=== PATIENT | female | born 1970 | race Caucasian/White ===

== ENCOUNTER 2022-02-02 12:21 | Emergency (ER) | payer BC, SELFPAY ==
--- NOTE | 2022-02-02 12:11 | PC.NURSE ---
urine specimen sent to lab at this time
[2022-02-02 12:21] VITALS: BP 116/65; PULSE 65; RESP 18; TEMP 36.6; O2SAT 98; BMI 42.3
--- NOTE | 2022-02-02 12:25 | CT_ITS ---
FINAL REPORT CLINICAL HISTORY: abdomen pain FINDINGS: CT ABDOMEN & PELVIS W/O CONTRAST Axial CT images of the abdomen and pelvis were obtained without intravenous contrast. Coronal reformatted images were also obtained.This study was performed with techniques to keep radiation doses as low as reasonably achievable (ALARA). Individualized dose reduction techniques using automated exposure control or adjustment of mA and/or kV according to the patient's size were employed. Abdomen: The lung bases are clear. There is no evidence of renal stone or hydronephrosis. The gallbladder is surgically absent. The liver has an irregular contour consistent with cirrhosis. There is splenomegaly with the spleen measuring 14.7 cm in length and consistent with portal hypertension. The pancreas has an unremarkable, unenhanced appearance. No mass or adenopathy is seen. No inflammatory process is identified. There are prominent vessels near the GE junction which are worrisome for varices. Pelvis: The appendix is not visualized. There is no evidence of ureteral dilation or ureteral stone.No mass or abnormal fluid collection is identified. There are multiple anterior abdominal and pelvic subcutaneous nodules of uncertain etiology which could represent injection granulomas/prior injection sites. IMPRESSION: Liver cirrhosis. Splenomegaly. Reviewed, Interpreted and Dictated by Cristian Coleman III, MD Transcribed by Cecelia Fuller Authenticated and [facility]
--- NOTE | 2022-02-02 12:33 | PC.NURSE ---
pt to radiology
[2022-02-02 12:38] LABS: Microscopic, Urine URINE MICROSCOPIC (MICROSCOPIC)
[2022-02-02 12:39] LABS: Appearance,Urine TURBID (Clear); Blood, Urine 3+ (Negative); Color,Urine AMBER (Yellow); Glucose,Urine (UA) Negative (Negative); Ketones,Urine Negative (Negative); Leukocyte Esterase,Urine 3+ (Negative); Nitrate,Urine POSITIVE (Negative); Protein,Urine 2+ (Negative)
--- NOTE | 2022-02-02 12:39 | PC.NURSE ---
pt back from radiology
[2022-02-02 12:41] LABS: Basophils % 0.9 % (0.1-2.0); Eosinophils # 0.2 K/mm3 (0.0-0.4); Eosinophils % 3.7 % (0.1-12.0); Hematocrit 39.4 % (37.0-47.0); Hemoglobin 13.3 g/dL (12.2-16.2); Lymphocytes % 22.8 % (10-50); Mean Corpuscular HGB Conc 33.8 g/dL (31.8-35.4); Mean Corpuscular Hemoglobin 31.9 pg (27.0-31.2); Mean Corpuscular Volume 94.4 fl (81-99); Mean Platelet Volume 7.8 fl (7.4-10.4); Monocytes # 0.4 K/mm3 (0.1-1.0); Monocytes % 9.1 % (1.7-9.3); Neutrophils # 2.7 K/mm3 (1.8-7.8); Neutrophils % 63.5 % (37.0-80.0); Platelet Count 130 K/mm3 (142-424); Red Blood Count 4.17 M/mm3 (4.20-5.40); Red Cell Distribution Width 16.3 % (11.5-17.5); White Blood Count 4.2 K/mm3 (4.8-10.8)
[2022-02-02 12:43] LABS: Chloride 106 mmol/L (98-107); Potassium 4.2 mmoL/L (3.5-5.1); Sodium 140 mmol/L (136-145)
[2022-02-02 12:46] LABS: Alanine Aminotransferase 23 U/L (12-78); Alkaline Phosphatase 81 U/L (38-126); Amylase 74 U/L (30-110); Anion Gap 11.2 mEq/L (5-15); Aspartate Amino Transferase 55 U/L (14-36); Bilirubin,Total 1.5 mg/dl (0.2-1.3); Blood Urea Nitrogen 11 mg/dl (7-17); Calcium 8.5 mg/dl (8.4-10.2); Carbon Dioxide 27 mmol/L (22.0-30.0); Creatinine Clearance Estimated 46 mL/min (50-200); Estimated Glomerular Filt Rate 53 ml/min (>60); GFR (African American) 64 ML/MIN (>60); Glucose 80 mg/dl (74-100); Lipase 116 U/L (23-300)
[2022-02-02 12:47] LABS: Albumin Level 3.5 g/dl (3.5-5.0); Globulin 3.4 g/dL (1.3-3.2); Total Protein,Serum 6.9 g/dl (6.3-8.2)
[2022-02-02 12:49] LABS: Bilirubin,Urine 1+ (Negative); WBC,Urine TNTC #/hpf (0-3)
[2022-02-02 12:50] LABS: Amorphous Sediment,Urine Trace /lpf; Bacteria,Urine 2+ /lpf
[2022-02-02 12:51] LABS: RBC,Urine 20-50 #/hpf (0-3)
--- NOTE | 2022-02-02 12:56 | HMH.EDGENADL ---
Discharge Plan Disposition Patient Disposition: Home, Self-Care Condition: Good Prescriptions Prescriptions: New cefdinir 300 mg capsule 300 mg PO BID 10 Days Qty: 20 0RF Activity Restrictions/Add. Instructions Additional Instructions/Restrictions: Additional instructions for URINARY TRACT INFECTION: Take antibiotic as prescribed. First dose tomorrow. See your physician in 2-3 days for follow up and culture results. Return immediately if you have an uncontrollable fever greater than 102 degrees, severe back or abdominal pain, inability to urinate, or repetitive vomiting. Clinical Impressions Clinical Impression: Pyelonephritis Instructions Patient Instructions: DI for Kidney Infection Discharge ED Provider: Jeffery Arora General Adult HPI General Chief complaint: Abdominal Pain Stated complaint: fever Time Seen by Provider: 02/02/22 12:27 Mode of Arrival: EMS Source of Information: Patient Limitations: No Limitations Description of Symptoms (Recalled from ER Triage Doc. by RN): c/o blood in her urine since yesterday, states her left side/flank area feels like someone is stabbing her and it goes into her lower left abdomen History of Present Illness HPI narrative: Brought in by ambulance from [facility]. Complains of left flank pain/abdominal pain on and off hematuria since yesterday. Denies fever. Denies vomiting. Denies prior history of kidney stones or kidney infections to her knowledge. No constipation or diarrhea. Related Data Previous Rx's Medication Instructions Recorded cefdinir 300 mg capsule 300 mg PO BID 10 days #20 caps 02/02/22 Allergies Allergy/AdvReac Type Severity Reaction Status Date / Time No Known Allergies Allergy Verified 02/02/22 12:25 PFSH PFS Social History Smoking Status: Never smoker ROS Obtained: Yes Systems reviewed as appropriate & no additional complaints except as documented Constitutional Constitutional: Denies fever(s) Cardiovascular Cardiovascular: Denies chest pain Respiratory Respiratory: Denies shortness of breath Gastrointestinal Gastrointestingal: Reports abdominal pain; Denies constipation, diarrhea, nausea or vomiting Genitourinary Female Genitourinary: Reports flank pain and Reports hematuria Physical Exam General General appearance: alert and in no apparent distress ENT ENT exam: Present mucous membranes moist Neck Neck exam: Present normal inspection and trachea midline Chest Chest inspection: Present normal inspection and symmetric chest wall rise Respiratory Respiratory exam: Present normal lung sounds bilaterally; Absent respiratory distress Cardiovascular Cardiovascular exam: Present regular rate, normal rhythm and normal heart sounds Abdominal Exam Abdominal exam: Present soft, tenderness and normal bowel sounds; Absent distention, guarding, rebound or rigidity Abdominal tenderness: Present diffuse and mild Extremities Exam Extremities exam: Present normal inspection Neurological Exam Neurological exam: Present alert Psychiatric Psychiatric exam: Present normal affect and normal mood Skin Skin exam: Present warm and dry Medical Decision Making Darrian Inquiry Pt receiving controlled substance: No Vital Signs: 02/02/22 12:21 Temperature 98 F Temperature Source Oral Pulse Rate [Left Radial] 65 Respiratory Rate 18 Blood Pressure [Right Arm] 116/65 Blood Pressure Mean [Right Arm] 82 Blood Pressure Source [Right Arm] Automatic Cuff Blood Pressure Position [Right Arm] Sitting 02 Sat by Pulse Oximetry 98 Oxygen Delivery Method Room Air Lab Data Lab Results 02/02/22 12:08: Urine Color Lizeth, Urine Appearance Turbid, Urine pH 6.0, Ur Specific [place] 1.020, Urine Protein 2+, Urine Glucose (UA) Negative, Urine Ketones Negative, Urine Blood 3+, Urine Nitrate Positive, Urine Bilirubin 1+ A, Urine Urobilinogen 1.0, Ur Leukocyte Esterase 3+ A, Urine RBC 20-50, Urine WBC Tntc, Ur Squamous Epith Cells 5-10, Pedro
[2022-02-02 13:14] VITALS: BP 111/57; PULSE 66; RESP 18; O2SAT 94
[2022-02-02 13:31] VITALS: BP 124/61; PULSE 70; RESP 17; O2SAT 93
--- NOTE | 2022-02-02 13:31 | PC.NURSE ---
called eduarda calderon to come and pepper picker pt for d/c
[2022-02-02 14:06] VITALS: BP 122/61; PULSE 64; RESP 17; TEMP 36.7; O2SAT 98
== END 2022-02-02 14:08 | disposition home or self-care (01) ==
PROVIDERS: Emergency Provider Emergency Medicine
DX: N12 Tubulo-interstitial nephritis, not specified as acute or chronic (principal); K74.60 Unspecified cirrhosis of liver; D73.2 Chronic congestive splenomegaly
CPT/HCPCS: 74176; 80053; 81001; 82150; 83690; 85025; 87086; 87088; 87186; 96365; 96375; 99284; J0696

== ENCOUNTER 2022-02-05 09:02 | Emergency (ER) | payer BC, SELFPAY ==
[2022-02-05 09:02] VITALS: BP 148/58; PULSE 80; RESP 18; TEMP 36.7; O2SAT 95; BMI 44.4
--- NOTE | 2022-02-05 09:07 | PC.NURSE ---
ED MD AT BEDSIDE FOR EVALUATION
--- NOTE | 2022-02-05 09:14 | HMH.EDSKAF ---
Discharge Plan Disposition Patient Disposition: Home, Self-Care Condition: Good Prescriptions Prescriptions: New hydrocortisone 1 % cream 1 applic topical TID PRN (Reason: rash) 7 Days Qty: 28.35 0RF diphenhydramine HCl [Allergy Relief(diphenhydramin)] 25 mg capsule 50 mg PO Q8H PRN (Reason: itching) 3 Days Qty: 10 0RF No Action cefdinir 300 mg capsule 300 mg PO BID 10 Days Qty: 20 0RF Referrals Follow up/Referrals: Leonardo Ruiz MD [Staff Physician] - See instructions Activity Restrictions/Add. Instructions Additional Instructions/Restrictions: Please follow up with your primary care physician in 2-3 days for further management. Please use the topical benadryl cream provided at discharge. You have also been provided hydrocortisone cream and benadryl tablet scripts to help with itching, please pickling grader at your preferred pharmacy. Please avoid any known allergens and clean all of your clothing and bed spreads. Please continue to monitor symptoms closely and return if worsen or any other concerns. Clinical Impressions Clinical Impression: Dermatitis Instructions Patient Instructions: DI for Skin Abscess Print Language Print Language: Indonesian Discharge ED Provider: Delores Hussein Skin/Abscess/FB HPI General Chief complaint: Skin/Abscess/Foreign Body Stated complaint: rash Time Seen by Provider: 02/05/22 09:15 Mode of Arrival: EMS Limitations: No Limitations Description of Symptoms (Recalled from ER Triage Doc. by RN): PT BROUGHT IN VIA EMS FOR RED RAISED AREAS NOTED TO BILATERAL ARMS AND RIGHT SIDE OF FACE AND JAW, BEGAN ABOUT 2-3 DAYS AGO History of Present Illness HPI narrative: Mrs. Oconnor is a 51-year-old female with no significant past medical history presenting to the emergency department for erythematous raised lesions on the (R) side of face and arms. Symptom onset 2 to 3 days prior. Patient reports large erythematous patches along the right side of her face as well as erythematous patches on her chest bilaterally. Patient reports wounds are pruritic but nonpainful. Wounds are in a non-dermatomal fashion. Patient denies any ocular changes or nasal changes. No fevers, chills or other infectious-like symptoms. Denies any known allergens. No change in diet. Reports no one else that she lives with has similar symptoms. No chest pain dyspnea or other concerns at this time. Denies any known insect bites or bedbugs. complaint: rash Onset (ago): day(s) Tetanus up to date: yes Location: face and RUE Severity: mild Quality: pruritic Consistency: constant Relieving factors: none Exacerbating factors: none Associated symptoms: denies other symptoms Treatments prior to arrival: none Related Data Previous Rx's Medication Instructions Recorded cefdinir 300 mg capsule 300 mg PO BID 10 days #20 caps 02/02/22 diphenhydramine HCl 25 mg capsule 50 mg PO Q8H PRN itching 3 days 02/05/22 (Allergy Relief (diphenhydramine)) #10 caps hydrocortisone 1 % topical cream 1 applic topical TID PRN rash 7 02/05/22 days #28.35 grams Allergies Allergy/AdvReac Type Severity Reaction Status Date / Time No Known Allergies Allergy Verified 02/02/22 12:25 PFSH PFSH Medical History Anxiety Cirrhosis of liver Cognitive impairment Encephalopathy Hypothyroid Murmur, heart Obstructive sleep apnea Surgical History H/O section H/O hernia repair Hx of appendectomy Social History Smoking Status: Former smoker alcohol intake: never current occupational status: disabled Travel in the last 8 weeks: None ROS Obtained: Yes All systems reviewed & no additional complaints except as documented Constitutional Constitutional: Reports system reviewed and no additional complaints, except as documented Eyes Eyes: Reports system reviewed and
[2022-02-05 09:38] VITALS: BP 112/51; PULSE 80; RESP 18; TEMP 36.8; O2SAT 95
== END 2022-02-05 09:40 | disposition home or self-care (01) ==
PROVIDERS: Emergency Provider Student in an Organized Health Care Education/Training Program; PCP Family Medicine
DX: L30.9 Dermatitis, unspecified (principal)
CPT/HCPCS: 99283

== ENCOUNTER 2022-05-02 19:12 | Inpatient (IN) | payer BC, SELFPAY ==
[2022-05-02] VITALS (7 sets, daily range): BP systolic 106–164; BP diastolic 50–88; PULSE 99–111; RESP 20; TEMP 39.4; O2SAT 90–94; BMI 35.2
--- NOTE | 2022-05-02 19:35 | CT_ITS ---
PROCEDURE INFORMATION: Exam: CT Cervical Spine Without Contrast Exam date and time: 05/02/2022 8:01 PM Age: 52 years old Clinical indication: Injury or trauma; Fall TECHNIQUE: Imaging protocol: Computed tomography of the cervical spine without contrast. Radiation optimization: All CT scans at this facility use at least one of these dose optimization techniques: automated exposure control; mA and/or kV adjustment per patient size (includes targeted exams where dose is matched to clinical indication); or iterative reconstruction. COMPARISON: CR XR CHEST PORTABLE 05/02/2022 7:41 PM FINDINGS: Bones/joints: No acute fracture. Normal alignment. There are mild degenerative changes of the atlantoaxial joint. Mild disc bulge and uncovertebral spurring producing at least mild stenosis at the C4-C5 disc level. No other significant degenerative/arthritic changes are seen. Lungs: Lung apices are normal. Soft tissues: Unremarkable. IMPRESSION: Mild degenerative changes of the cervical spine as described. No acute findings.
--- NOTE | 2022-05-02 19:35 | CT_ITS ---
PROCEDURE INFORMATION: Exam: CT Head Without Contrast Exam date and time: 05/02/2022 8:01 PM Age: 52 years old Clinical indication: Injury or trauma; Fall TECHNIQUE: Imaging protocol: Computed tomography of the head without contrast. Radiation optimization: All CT scans at this facility use at least one of these dose optimization techniques: automated exposure control; mA and/or kV adjustment per patient size (includes targeted exams where dose is matched to clinical indication); or iterative reconstruction. COMPARISON: No relevant prior studies available. FINDINGS: Brain: Normal. No hemorrhage. Unremarkable white matter. No mass effect. Incidental physiologic calcification is noted in the basal ganglia. Cerebral ventricles: No ventriculomegaly. Paranasal sinuses: Visualized sinuses are unremarkable. No fluid levels. Mastoid air cells: Visualized mastoid air cells are well aerated. Bones/joints: Unremarkable. No acute fracture. Soft tissues: Unremarkable. IMPRESSION: No acute intracranial abnormality.
--- NOTE | 2022-05-02 19:35 | XR_ITS ---
PROCEDURE INFORMATION: Exam: XR Left Tibia and Fibula Exam date and time: 05/02/2022 7:43 PM Age: 52 years old Clinical indication: Injury or trauma; Fall; Blunt trauma; Lower leg; Left TECHNIQUE: Imaging protocol: Radiologic exam of the Left tibia and fibula. Views: 2 views. COMPARISON: No relevant prior studies available. FINDINGS: Bones/joints: Osseous alignment is normal. No acute fracture. Mild spurring of the calcaneus noted. Soft tissues: Normal. IMPRESSION: No acute findings.
--- NOTE | 2022-05-02 19:35 | XR_ITS ---
PROCEDURE INFORMATION: Exam: XR Chest Exam date and time: 05/02/2022 7:41 PM Age: 52 years old Clinical indication: Cough TECHNIQUE: Imaging protocol: Radiologic exam of the chest. Views: 1 view. COMPARISON: CT ABDOMEN PELVIS WO CON 02/02/2022 12:30 PM FINDINGS: Lungs: Lung volumes are low with crowding of the pulmonary vasculature and mild hypoaeration changes. No woo pulmonary consolidation seen. Pleural spaces: Unremarkable. No pleural effusion. No pneumothorax. Heart/Mediastinum: Unremarkable. No cardiomegaly. Bones/joints: Unremarkable. IMPRESSION: Mild hypoaeration changes
--- NOTE | 2022-05-02 19:35 | XR_ITS ---
PROCEDURE INFORMATION: Exam: XR Pelvis Exam date and time: 05/02/2022 7:42 PM Age: 52 years old Clinical indication: Injury or trauma; Fall; Blunt trauma (contusions or hematomas); Does not apply; Pelvic region TECHNIQUE: Imaging protocol: Radiologic exam of the pelvis. Views: 1 or 2 view. COMPARISON: CT ABDOMEN PELVIS WO CON 02/02/2022 12:30 PM FINDINGS: Bones/joints: Unremarkable. No acute fracture. Soft tissues: Unremarkable. IMPRESSION: No acute findings.
[2022-05-02 19:41] LABS: Coronavirus 19, PCR Not Detected (NotDetected); Influenza A, PCR Not Detected (NotDetected); Influenza B, PCR Not Detected (NotDetected)
[2022-05-02 20:32] LABS: Basophils # 0.1 K/mm3 (0-0.2); Basophils % 1.4 % (0.1-2.0); Eosinophils # 0.1 K/mm3 (0.0-0.4); Eosinophils % 0.8 % (0.1-12.0); Hematocrit 42.1 % (37.0-47.0); Hemoglobin 14.2 g/dL (12.2-16.2); Lymphocytes # 0.5 K/mm3 (0.7-4.5); Lymphocytes % 7.2 % (10-50); Mean Corpuscular HGB Conc 33.6 g/dL (31.8-35.4); Mean Corpuscular Hemoglobin 32.3 pg (27.0-31.2); Mean Corpuscular Volume 96.1 fl (81-99); Mean Platelet Volume 7.9 fl (7.4-10.4); Monocytes # 0.2 K/mm3 (0.1-1.0); Monocytes % 3.5 % (1.7-9.3); Neutrophils # 5.9 K/mm3 (1.8-7.8); Platelet Count 122 K/mm3 (142-424); Red Blood Count 4.38 M/mm3 (4.20-5.40); Red Cell Distribution Width 14.9 % (11.5-17.5); White Blood Count 6.8 K/mm3 (4.8-10.8)
[2022-05-02 20:35] LABS: Alanine Aminotransferase 29 U/L (12-78); Albumin/Globulin Ratio 0.9 (1.1-1.8); Alkaline Phosphatase 87 U/L (38-126); Anion Gap 6.9 mEq/L (5-15); Aspartate Amino Transferase 66 U/L (14-36); Bilirubin,Total 1.9 mg/dl (0.2-1.3); Blood Urea Nitrogen 14 mg/dl (7-17); Calcium 7.8 mg/dl (8.4-10.2); Carbon Dioxide 25 mmol/L (22.0-30.0); Chloride 112 mmol/L (98-107); Creatinine Clearance Estimated 75 mL/min (50-200); Estimated Glomerular Filt Rate 43 ml/min (>60); GFR (African American) 52 ML/MIN (>60); Globulin 3.4 g/dL (1.3-3.2); Glucose 105 mg/dl (74-100); Potassium 3.9 mmoL/L (3.5-5.1); Sodium 140 mmol/L (136-145); Total Protein,Serum 6.4 g/dl (6.3-8.2)
[2022-05-02 20:37] LABS: Alanine Aminotransferase 29 U/L (12-78); Aspartate Amino Transferase 67 U/L (14-36); MANUAL DIFFERENTIAL MANUAL DIFFERENTIAL (MANUAL DIFF)
[2022-05-02 20:38] LABS: Lactic Acid 1.6 mmol/L (0.7-2.1)
[2022-05-02 20:56] LABS: Eosinophils % 1 % (0-3); Lymphocytes % 9 % (10-50); Monocytes % 6 % (2-9); Neutrophils % 84 % (42-76); Platelet Estimate Normal; Tear Drop Cells 1+; Total Cells Counted 100
--- NOTE | 2022-05-02 21:54 | PC.NURSE ---
Report from Duncan Houser indicated that the patient had fallen and was suffering from generalized pain. However, when patient arrived to ER she had a temperature of 102.9 and confusion. uDncan Houser arrived to transport another patient to [facility] they inquired on patient and were concerned about the patients confusion.
[2022-05-02 22:02] LABS: Adenovirus F 40/41, stool Not Detected (NotDetected); Astrovirus Not Detected (NotDetected); Campylobacter Not Detected (NotDetected); Clostridium Difficile A/B, PCR Not Detected (NotDetected); Cryptosporidium Not Detected (NotDetected); Cyclospora Cayetanesis Not Detected (NotDetected); Entamoeba histolytica Not Detected (NotDetected); Enteroaggregative E coli Not Detected (NotDetected); Enteropathogenic E coli Not Detected (NotDetected); Enterotoxigenic E coli Not Detected (NotDetected); Giardia lamblia Not Detected (NotDetected); Plesimonas Shigalloides, PCR Not Detected (NotDetected); Rotavirus A Not Detected (NotDetected); Salmonella, PCR Not Detected (NotDetected); Sapovirus Not Detected (NotDetected); Shiga-like toxin E coli Not Detected (NotDetected); Shigella Enterovasive E coli Not Detected (NotDetected); Vibrio Cholerae Not Detected (NotDetected); Vibrio, PCR Not Detected (NotDetected); Yersinia Entercolitica, PCR Not Detected (NotDetected)
--- NOTE | 2022-05-02 22:07 | HMH.EDFALL ---
Discharge Plan Disposition Patient Disposition: Admitted As Inpatient Chief Complaint: Fall Prescriptions Prescriptions: No Action amitriptyline 50 mg Tablet 50 mg PO HS carvedilol 3.125 mg Tablet 3.125 mg PO BID Rx Instructions: must administer with a meal/food levothyroxine 100 mcg Tablet 100 mcg PO DAILY pantoprazole 40 mg Tablet,Delayed Release (Dr/Ec) 40 mg PO DAILY lisinopril 10 mg Tablet 10 mg PO DAILY duloxetine 30 mg Capsule,Delayed Release(Dr/Ec) 30 mg PO DAILY ferrous sulfate 324 mg (65 mg iron) Tablet,Delayed Release (Dr/Ec) 324 mg PO DAILY Rx Instructions: every other day rifaximin 550 mg Tablet 550 mg PO BID Discharge ED Provider: Leonardo Ruiz Fall HPI General Chief Complaint: Fall Stated Complaint: pain from fall out of bed Time Seen by Provider: 05/02/22 22:07 Mode of Arrival: EMS Source of Information: EMS Limitations: No Limitations Description of Symptoms (Recalled from ER Triage Doc. by RN): Per EMS, patient fell out of bed roughly 30 minutes ago. When ems arrived patient was laying on her stomach. Patient is c/o left knee pain, left hip pain and generalized pain. Patient does have an abrasion noted on her left knee. Of note, upon arrival to ED, patient has a cough and fever of 102.9 orally. Patient states she has been sick for 2 or 3 days. Patient is confused upon arrival to ER. History of Present Illness HPI Narrative: [facility] - no sig prodromal sx - pt with cough and fever here- has hx of liver disease MD complaint: fall Onset (ago): hour(s) Fall from: out of bed Fall witnessed: no Place fall occurred: other ([facility] ) Loss of consciousness: none Prolonged down time: no Symptoms prior to fall: none Location of injury: head Location of injury - extremities: Left: thigh and lower leg Severity: moderate Associated symptoms (after fall): denies Related Data Home Medications Medication Instructions Recorded Confirmed amitriptyline 50 mg tablet 50 mg PO HS antidepressant 05/02/22 05/02/22 carvedilol 3.125 mg tablet 3.125 mg PO BID htn 05/02/22 05/02/22 duloxetine 30 mg capsule,delayed 30 mg PO DAILY antidepressant 05/02/22 05/02/22 release ferrous sulfate 324 mg (65 mg 324 mg PO DAILY Supplement 05/02/22 05/02/22 iron) tablet,delayed release levothyroxine 100 mcg tablet 100 mcg PO DAILY hypothyroidism 05/02/22 05/02/22 lisinopril 10 mg tablet 10 mg PO DAILY htn 05/02/22 05/02/22 pantoprazole 40 mg tablet,delayed 40 mg PO DAILY GERD 05/02/22 05/02/22 release rifaximin 550 mg tablet 550 mg PO BID diarrhea 05/02/22 05/02/22 Allergies Allergy/AdvReac Type Severity Reaction Status Date / Time No Known Allergies Allergy Verified 02/02/22 12:25 [facility] Disclaimer: The information contained in this section may have been updated after the patient was seen, as this information can be updated by other users. Medical History Anxiety Cirrhosis of liver Cognitive impairment Encephalopathy Hypothyroid Murmur, heart Obstructive sleep apnea Surgical History H/O section H/O hernia repair Hx of appendectomy Social History Smoking Status: Former smoker alcohol intake: never current occupational status: disabled Travel in the last 8 weeks: None ROS Obtained: Yes unobtainable due to mental status Physical Exam General General appearance: lethargic and obese Head Head exam: normocephalic Eye Eye exam: Present PERRL and EOMI; Absent scleral icterus ENT ENT exam: Present mucous membranes dry Neck Neck exam: Present trachea midline; Absent meningismus Respiratory Respiratory exam: Present other (dec bs bilat ); Absent respiratory distress Cardiovascular Cardiovascular exam: Present regular rate Abdominal Exam Abdomin
[2022-05-02 22:11] LABS: INR 1.18 (0.9-1.1); Prothrombin Time 12.6 seconds (10.1-12.5)
[2022-05-02 22:11] LABS: Ammonia 125 umol/L (9-30)
[2022-05-02 23:02] LABS: Microscopic, Urine URINE MICROSCOPIC (MICROSCOPIC)
[2022-05-02 23:05] LABS: Appearance,Urine CLOUDY (Clear); Blood, Urine 3+ (Negative); Color,Urine BROWN (Yellow); Glucose,Urine (UA) TRACE (Negative); Ketones,Urine TRACE (Negative); Leukocyte Esterase,Urine TRACE (Negative); Nitrate,Urine POSITIVE (Negative); PH,Urine 6.5 (5.0-8.5); Protein,Urine 3+ (Negative)
[2022-05-02 23:22] LABS: Bacteria,Urine 4+ /lpf; Bilirubin,Urine Negative (Negative); RBC,Urine TNTC #/hpf (0-3)
[2022-05-02 23:27] LABS: T4 (Thyroxine) 8.1 ug/dl (5.53-11.0)
[2022-05-02 23:41] LABS: Thyroid Stimulating Hormone 1.05 uIU/mL (0.465-4.68)
[2022-05-03] VITALS (8 sets, daily range): BP systolic 108–170; BP diastolic 53–79; PULSE 75–98; RESP 16–24; TEMP 36.6–36.9; O2SAT 89–98; BMI 38.9; BMI 39.4
--- NOTE | 2022-05-03 00:13 | CT_ITS ---
PROCEDURE INFORMATION: Exam: CT Abdomen And Pelvis With Contrast Exam date and time: 05/03/2022 12:52 AM Age: 52 years old Clinical indication: Condition or disease and abnormal findings; Abnormal lab test; Other: Ammonia +; Liver condition; Cirrhosis; Additional info: HX cirrhosis, AMS, ammonia + TECHNIQUE: Imaging protocol: Computed tomography of the abdomen and pelvis with contrast. Radiation optimization: All CT scans at this facility use at least one of these dose optimization techniques: automated exposure control; mA and/or kV adjustment per patient size (includes targeted exams where dose is matched to clinical indication); or iterative reconstruction. Contrast material: ISOVUE; Contrast volume: 75 ml; Contrast route: IV; COMPARISON: CT ABDOMEN PELVIS WO CON 02/02/2022 12:30 PM FINDINGS: Lungs: There is moderate consolidative atelectasis in the left lung base. Heart: The heart appears mildly enlarged. Liver: Liver appears nodular in contour suggesting cirrhosis. Gallbladder and bile ducts: Gallbladder is surgically absent. Pancreas: Normal. No ductal dilation. Spleen: The spleen is enlarged measuring 15.5 cm in length. Adrenal glands: Normal. No mass. Kidneys and ureters: Normal. No hydronephrosis. Stomach and bowel: There is diffuse wall thickening of the hepatic flexure of the colon with surrounding fatty stranding, concerning for focal colitis. No evidence of bowel obstruction. Appendix: No evidence of appendicitis. Intraperitoneal space: There is minimal perihepatic free fluid. No free air seen. Vasculature: Abdominal aorta is normal in caliber. Multiple esophageal varices noted about the GE junction. Lymph nodes: Unremarkable. No enlarged lymph nodes. Urinary bladder: Chao catheter is present in the urinary bladder. Reproductive: Unremarkable as visualized. Bones/joints: Moderate facet arthropathy noted in the lumbar spine. Bones are otherwise unremarkable. Soft tissues: Stable findings in the anterior abdominal wall suggests old ventral hernia repair. IMPRESSION: 1. Interval development of long segment wall thickening involving the hepatic flexure of the colon suggesting active colitis. 2. Moderate consolidative atelectasis in the left lower lobe which may represent bland atelectasis or mild pneumonia 3. Findings of chronic cirrhosis and portal hypertension including splenomegaly and minimal ascites as well as distal esophageal varices
--- NOTE | 2022-05-03 00:20 | PC.NURSE ---
Hospitalist at bedside
[2022-05-03 00:22] LABS: Norovirus Detected (NotDetected)
--- NOTE | 2022-05-03 00:22 | PC.NURSE ---
Dr. Ruiz notified pt is positive for norovirus.
--- NOTE | 2022-05-03 00:36 | PC.NURSE ---
Dr. Ruiz s/w Eduardo Novoa
[2022-05-03 00:45] LABS: Amylase 63 U/L (30-110); Lipase 78 U/L (23-300)
--- NOTE | 2022-05-03 00:46 | EXP.HP ---
History of Present Illness *Admission Date: 05/03/22 *Reason for visit:: Mental Status Change, Falls, Fevers *History of present illness: Ms. Oconnor is a 52-year-old female who is a resident of a local assisted. She has a history of liver cirrhosis and hepatic encephalopathy, she is on Rifaximin, Per staff, she has a guardian and a daughter. She was sent in from the assisted due to falls and mental status changes. In the ER, she had a CT of the head that showed no acute intracranial abnormalities, CT of the spine that showed that the lung apices are normal with some mild degenerative changes, Cxray that showed mild hypoaeration, Pelvis imaging that showed no acute findings and Tib/Fib xrays that were negative for fracture. Covid and Flu testing were negative. Urinalysis showed 4 plus bacteria, trace leukoesterase and was positive for nitrites. Stool studies were positive for noravirus and Ammonia level was elevated at 125. Creatinine was elevated at 1.30. In the ER on exam, she would arouse to painful stimuli, but feel back asleep. She has a temperature of 102.9 at time of exam and oxygen is 90% on room air, HR was documented at 111 on arrival. Her history was obtained from discussion with the ER Physician and review of the patient's chart. The patient will be admitted with initial impression: Sepsis, Encephalopathy, UTI and Noravirus. Cultures were drawn, the patient was given Fluids in the ER. [facility] Disclaimer: The information contained in this section may have been updated after the patient was seen, as this information can be updated by other users. Medical History Anxiety Cirrhosis of liver Cognitive impairment Encephalopathy Hypothyroid Murmur, heart Obstructive sleep apnea Surgical History H/O section H/O hernia repair Hx of appendectomy Social History Smoking Status: Former smoker alcohol intake: never current occupational status: disabled Travel in the last 8 weeks: None Review of Systems Review of Systems Review of systems:: unable to obtain Meds Home Medications and Allergies Home Medications Medication Instructions Recorded Confirmed Type amitriptyline 50 mg tablet 50 mg PO HS antidepressant 05/02/22 05/02/22 History carvedilol 3.125 mg tablet 3.125 mg PO BID htn 05/02/22 05/02/22 History duloxetine 30 mg capsule,delayed 30 mg PO DAILY antidepressant 05/02/22 05/02/22 History release ferrous sulfate 324 mg (65 mg 324 mg PO DAILY Supplement 05/02/22 05/02/22 History iron) tablet,delayed release levothyroxine 100 mcg tablet 100 mcg PO DAILY hypothyroidism 05/02/22 05/02/22 History lisinopril 10 mg tablet 10 mg PO DAILY htn 05/02/22 05/02/22 History pantoprazole 40 mg tablet,delayed 40 mg PO DAILY GERD 05/02/22 05/02/22 History release rifaximin 550 mg tablet 550 mg PO BID diarrhea 05/02/22 05/02/22 History New Prescriptions to Start Prescriptions: Allergies Allergy/AdvReac Type Severity Reaction Status Date / Time No Known Allergies Allergy Verified 02/02/22 12:25 Exam Data for Last 24 hours Vital signs and Labs for Last 24 Hours: Temp Pulse Resp BP Pulse Ox 102.9 F H 101 H 20 128/62 90 L 05/02/22 19:30 05/02/22 23:30 05/02/22 19:30 05/02/22 23:30 05/02/22 23:30 Laboratory Results - last 24 hr 05/02/22 19:25: SARS-CoV-2 (PCR) Not detected, Influenza A Untype (PCR) Not detected, Influenza Type B (PCR) Not detected 05/02/22 20:15: WBC 6.8, RBC 4.38, Hgb 14.2, Hct 42.1, MCV 96.1, MCH 32.3 H, MCHC 33.6, RDW 14.9, Plt Count 122 L, MPV 7.9, Neut % (Auto) 87.0 H, Lymph % (Auto) 7.2 L, [place] % (Auto) 3.5, Eos % (Auto) 0.8, Baso % (Auto) 1.4, Neut # (Auto) 5.9, Lymph # (Auto) 0.5 L, [place] # (Auto) 0.2, Eos # (Auto) 0.1, Baso # (Auto) 0.1, Total Counted 100, Neutrophils % (Manual) 8
[2022-05-03 01:31] LABS: Barbiturates Screen,Urine Negative ng/ml (<200)
[2022-05-03 01:32] LABS: Amphetamine/Metha Screen,Urine Negative ng/ml (<1000); Benzodiazepines Screen,Urine Negative ng/ml (<200)
[2022-05-03 01:33] LABS: Cannabinoid Screen,Urine Negative ng/ml (<50)
[2022-05-03 01:34] LABS: Cocaine Screen,Urine Negative ng/ml (<300); Methadone Screen,Urine Negative ng/ml (<300)
[2022-05-03 01:35] LABS: Opiate Screen,Urine Negative ng/ml (<300); Phencyclidine Screen,Urine Negative ng/ml (<25)
--- NOTE | 2022-05-03 02:32 | PC.NURSE ---
PT ARRIVED TO FLOOR VIA STRETCHER AT THIS TIME
--- NOTE | 2022-05-03 05:29 | PC.NURSE ---
Pt admitted this shift. She is A&O to person and place, responds appropriately to verbal commands, eyes open to voice. She remains on 2L NC and is tolerating well with o2 sats 90%. Wheezez noted. No edema noted. Tachycardic at times. Scratches and bruises noted to LUE. Scrape noted to left knee and dark purple bruising noted to right knee. Slight redness noted under abdominal fold. Chao catheter in place draining margot colored urine. BS active and abdomen soft/non-tender. Pts admission was completed to the best of my ability, Pt did state that she was allergic to Oxycodone and Augmentin.
--- NOTE | 2022-05-03 08:00 | EXP.PHA.CONS ---
Pharmacy Consult Date: 05/03/22 Time: 08:00 Referring provider: DR. BARROSO Reason for Consult:: VANCOMCYIN DOSING Allergies Allergy/AdvReac Type Severity Reaction Status Date / Time amoxicillin [From Augmentin] Allergy Verified 05/03/22 05:48 clavulanic acid Allergy Verified 05/03/22 05:48 [From Augmentin] oxycodone Allergy Verified 05/03/22 05:48 Home Medications Medication Instructions Recorded Confirmed Type amitriptyline 50 mg tablet 50 mg PO HS antidepressant 05/02/22 05/02/22 History carvedilol 3.125 mg tablet 3.125 mg PO BID htn 05/02/22 05/02/22 History duloxetine 30 mg capsule,delayed 30 mg PO DAILY antidepressant 05/02/22 05/02/22 History release ferrous sulfate 324 mg (65 mg 324 mg PO DAILY Supplement 05/02/22 05/02/22 History iron) tablet,delayed release levothyroxine 100 mcg tablet 100 mcg PO DAILY hypothyroidism 05/02/22 05/02/22 History lisinopril 10 mg tablet 10 mg PO DAILY htn 05/02/22 05/02/22 History pantoprazole 40 mg tablet,delayed 40 mg PO DAILY GERD 05/02/22 05/02/22 History release rifaximin 550 mg tablet 550 mg PO BID diarrhea 05/02/22 05/02/22 History New Prescriptions to Start Prescriptions: Height: 1.63 m Weight: 104.808 kg Laboratory Results:: Laboratory Results - last 24 hr 05/02/22 19:25: SARS-CoV-2 (PCR) Not detected, Influenza A Untype (PCR) Not detected, Influenza Type B (PCR) Not detected 05/02/22 20:15: WBC 6.8, RBC 4.38, Hgb 14.2, Hct 42.1, MCV 96.1, MCH 32.3 H, MCHC 33.6, RDW 14.9, Plt Count 122 L, MPV 7.9, Neut % (Auto) 87.0 H, Lymph % (Auto) 7.2 L, [place] % (Auto) 3.5, Eos % (Auto) 0.8, Baso % (Auto) 1.4, Neut # (Auto) 5.9, Lymph # (Auto) 0.5 L, [place] # (Auto) 0.2, Eos # (Auto) 0.1, Baso # (Auto) 0.1, Total Counted 100, Neutrophils % (Manual) 84 H, Lymphocytes % (Manual) 9 L, Monocytes % (Manual) 6, Eosinophils % (Manual) 1, Platelet Estimate Normal, Tear Drop Cells 1+ 05/02/22 20:15: Sodium 140, Potassium 3.9, Chloride 112 H, Carbon Dioxide 25, Anion Gap 6.9, BUN 14, Creatinine 1.30 H, Estimated Creat Clear 75, Estimated GFR 43 L, Est GFR ( Amer) 52 L, Glucose 105 H, Calcium 7.8 L, Total Bilirubin 1.9 H, AST 66 H, ALT 29, Alkaline Phosphatase 87, Total Protein 6.4, Albumin 3.0 L, Globulin 3.4 H, Albumin/Globulin Ratio 0.9 L 05/02/22 20:15: Lactate 1.6 05/02/22 20:15: AST 67 H, ALT 29 05/02/22 20:15: PT 12.6 H, INR 1.18 H 05/02/22 20:52: TSH 1.05, Thyroxine (T4) 8.1 05/02/22 21:00: Amylase 63, Lipase 78 05/02/22 21:46: Urine Color Brown, Urine Appearance Cloudy, Urine pH 6.5, Ur Specific [place] 1.020, Urine Protein 3+, Urine Glucose (UA) Trace, Urine Ketones Trace, Urine Blood 3+, Urine Nitrate Positive, Urine Bilirubin Negative, Urine Urobilinogen 2.0, Ur Leukocyte Esterase Trace, Urine RBC Tntc, Urine WBC 3-5, Urine Bacteria 4+ 05/02/22 21:49: Stl Aeromonas (PCR) Not detected, Stl C. cayetanensis PCR Not detected, Stool Rotavirus (PCR) Not detected, Stl Adenov F 40/41 PCR Not detected, Stool Astrovirus (PCR) Not detected, Stool Campylobacter PCR Not detected, Stl C.difficile Tox PCR Not detected, Stool Cryptosporidium PCR Not detected, Stl E.coli Shiga Tox PCR Not detected, Stool E coli O157 PCR Not detected, Stl Enterotoxigenic E PCR Not detected, Stool EPEC (PCR) Not detected, Stool EAEC (PCR) Not detected, Stl E. histolytica PCR Not detected, Stool Giardia Lamblia PCR Not detected, Stool Salmonella PCR Not detected, Stool Sapovirus (PCR) Not detected, Stl P. shigelloides PCR Not detected, Stl Shigella/EIEC PCR Not detected, St Y.enterocolitica PCR Not detected, Stool Vibrio (PCR) Not detected, Stl Vibrio cholerae PCR Not detected, Stl Norovirus GI/GII PCR Detected A 05/02/22 21:52: Ammonia 125 H 05/03/22 : Urine Opiates Screen Negative, Urine Methadone Screen Negative, Ur Barbituates Screen Negative, Ur Phencyclidine Scrn Negative, Ur Amphetamines Screen Negative, U Benzodiazepines Scrn Negative, Urine Cocaine Screen Negative, U Marijuana (THC) Screen Negative Medic
--- NOTE | 2022-05-03 10:24 | US_ITS ---
PROCEDURE INFORMATION: Exam: US Abdomen Complete Exam date and time: 05/03/2022 11:15 AM Age: 52 years old Clinical indication: Condition or disease; Ascites; Peritoneal effusion TECHNIQUE: Imaging protocol: Real-time ultrasound of the abdomen with image documentation. Complete exam. COMPARISON: CT ABDOMEN PELVIS W CON 05/03/2022 12:52 AM FINDINGS: Liver: Cirrhosis. No focal hepatic lesions. Gallbladder: There has been a cholecystectomy. Biliary ducts: Common bile duct measures 5 mm. Pancreas: Pancreas is unremarkable Right kidney: The right kidney measures 10.9 x 4.9 x 5.6 cm. No sonographically evident nephrolithiasis or hydroureteronephrosis. Left kidney: The left kidney measures 11.2 x 5.5 x 5.1 cm. No sonographically evident nephrolithiasis or hydroureteronephrosis. Spleen: Splenomegaly to 16.8 cm Aorta: Normal. No aneurysm. Inferior vena cava: Normal. Portal venous: Portal vein is patent. Supra hepatic veins are patent IMPRESSION: Cirrhosis and splenomegaly.
[2022-05-03 10:55] LABS: Chloride 113 mmol/L (98-107); Potassium 3.6 mmoL/L (3.5-5.1); Sodium 141 mmol/L (136-145)
[2022-05-03 10:58] LABS: Alanine Aminotransferase 25 U/L (12-78); Albumin Level 2.4 g/dl (3.5-5.0); Albumin/Globulin Ratio 0.8 (1.1-1.8); Alkaline Phosphatase 73 U/L (38-126); Anion Gap 7.6 mEq/L (5-15); Aspartate Amino Transferase 66 U/L (14-36); Bilirubin,Total 1.4 mg/dl (0.2-1.3); Blood Urea Nitrogen 15 mg/dl (7-17); Calcium 7.1 mg/dl (8.4-10.2); Carbon Dioxide 24 mmol/L (22.0-30.0); Creatinine Clearance Estimated 85 mL/min (50-200); Estimated Glomerular Filt Rate 43 ml/min (>60); GFR (African American) 52 ML/MIN (>60); Glucose 79 mg/dl (74-100); Total Protein,Serum 5.4 g/dl (6.3-8.2)
--- NOTE | 2022-05-03 11:04 | PC.NURSE ---
Patient 92% on room air while walking with PT/OT and 92% at rest on room air
--- NOTE | 2022-05-03 11:42 | HMH.OTEV ---
OT Inpatient Evaluation Rehab OT IP Evaluation Start: 05/03/22 10:22 Freq: ONCE Status: Active Protocol: [facility] (Rec: 05/03/22 11:41 [facility] [id number]) Rehab OT IP Assessment Subjective History Pt oriented x 4 on arrival. Pt agreeable to engage in therapy evaluation. Pt was admitted on on 05/03/22 for Sepsis, Encephalopathy, UTI and Noravirus. Prior to being admitted pt lived at [facility] personal halfway. Pt reports she was independent with all ADLs such as dressing , bathing, and feeding. Pt was dependent on staff to complete all IADLs. Pt did not use any type of AE during daily activities. Pt has a past medical history of: Anxiety Cirrhosis of liver Cognitive impairment Encephalopathy Hypothyroid Murmur, heart Obstructive sleep apnea Subjective I have a really bad headache. Objective Patient Orientation Person,Place,Birthday Upper Extremity Gross ROM WFL Bed Mobility bed mobility-scooting,bed mobility - supine/sit,bed mobility - rolling Assist Level Supervision/Stand by Transfer Training Sit/Stand Transfer Assist Level Supervision/Stand by Chair Transfer Ability Supervision/Stand by Lower Body Dressing Ability Standby Assistance Overall Commode/Toilet Transfer Ability Standby Assistance Commode/Toilet Transfer Technique Sit to/from Ambulatory Rehab OT IP prob,goals,plan Problems Date of Evaluation: 05/03/22 Rehab Potential Rehab Potential Innapropriate for Skilled Therapy Discharge Plan OT Discharge Plan Pt appears to be at her baseline with ADL independence and functional transfers at this time. Pt can return back to [facility] once medically stable per physician. Eval Complexity Eval Charge Codes 72980 - Low Complexity
--- NOTE | 2022-05-03 11:50 | HMH.PTEV ---
Physical Therapy Evaluation Rehab PT IP Evaluation Start: 05/03/22 10:22 Freq: ONCE Status: Active Protocol: Document 05/03/22 10:45 IVELISSE (Rec: 05/03/22 11:50 PHOYASHIRA [id number]) Subjective/History History History 52 yowf adm to [facility] with encephalopathy, UTI, Norovirus . She is resident of personal jail and is generally independent with all mobility at baseline. Subjective Subjective She reports c/o headache this am, but otherwise feeling good . Rehab PT IP Eval Objective Appearance Patient Behavior Appropriate Patient Orientation Person,Place,Time Difficulty following instructions none Speech Pattern Clear Ambulation Patient Able to Ambulate Yes Ambulation Observation IP General Gait Pattern Observation No Deviations/Normal Ambulation Distance (feet) 40 Ambulation Assistive Device None Ambulation Ability Independent Balance Ability to Arise Able, uses arms to help Sitting Balance Steady, safe Standing Balance Steady, wide stance Dynamic Sitting Balance Ability Good Dynamic Standing Balance Ability Good Transfers Bed Transfer Ability Independent Chair Transfer Ability Independent Sit to Stand Bed Transfer Ability Independent Sit to Stand Chair Transfer Ability Independent Rehab PT IP prob,goals,plan Problems Date of Evaluation: 05/03/22 Discharge Plan PT Discharge Plan Pt currently appears to be at baseline for all mobility and has no inpatiuent therapy needs at this time. She is appropriate to return to personal jail once medically stable. G -code Required No Eval Complexity Eval Charge Codes 70244 - Moderate Complexity PHYSICIAN CERTIFICATION: I certify the specified therapy services for Trish Oconnor are required, authorized, and reviewed every 30 days.
[2022-05-03 12:22] LABS: Ammonia 88 umol/L (9-30)
--- NOTE | 2022-05-03 13:17 | P.CONPHA_ITS ---
Pharmacy Intervention Comments: [facility] and external fill history. -Analilia Wallis, PharmD Candidate 2022
--- NOTE | 2022-05-03 13:17 | HMH.PHAINT1 ---
Pharmacy Intervention Comments: [facility] and external fill [facility]. -Analilia Wallis, PharmD Candidate 2022
--- NOTE | 2022-05-03 16:37 | PC.NURSE ---
Patient on room air during shift. VS stable, IV antibiotics given. Patient able to tolerate meals, no pain reported. Abdomen tender with palpation.
[2022-05-04] VITALS: BP 132/74; PULSE 77; RESP 16; TEMP 36.6; O2SAT 93
--- NOTE | 2022-05-04 03:37 | PC.NURSE ---
PATIENT HAS NOT C/O H/A ON THIS SHIFT. PLEASANT. COOPERATIVE. SLIGHTLY MENTALLY CHALENGED. CHILD LIKE IN MANY WAYS. CONTACT-ENTERIC PRECAUTIONS FOR NORAVIRUS,
[2022-05-04 04:00] VITALS: BP 139/78; PULSE 75; RESP 16; TEMP 36.9; O2SAT 95; BMI 41.0
[2022-05-04 07:59] VITALS: BP 156/85; PULSE 76; RESP 17; TEMP 36.5; O2SAT 97
--- NOTE | 2022-05-04 08:49 | CA_ITS ---
APPROVED REPORT EXAM: Comprehensive 2D, Doppler, and color-flow Echocardiogram Timber Robber: Kylee Santos RVT Ht: 5 ft 4 in Wt: 240lbs BSA: 2.11 BP: 128/62 mmHg Indications: CARDIOMEGALY,FERNANDEZ,MURMUR,EX SMOKER,HTN,OBESITY 2D Dimensions LVOT 1.96 cm (M/F) 1.5-2.5 LA Volume 30.50 mL LA Volume Index 14.39 mL/m2 (M/F) 16-34 M-Mode Dimensions RVDd 2.33 cm (0.9-2.6) LA Diam 4.12 cm (1.9-4.0) LVDd 4.82 cm (3.5-5.7) Ao Diam 2.89 cm (2.0-3.7) LVDs 2.85 cm (3.5-5.7) IVSd 1.57 cm (0.6-1.1) PWd 0.84 cm (0.6-1.1) EF (Teich) 71.50% FS 40.90% EDV (Teich) 108.60 mL TAPSE 2.98 (<1.7) ESV (Teich) 30.90 mL LV Diastology E Decel Time 283.00 (160-240 msec) E/A Ratio 1.2 MED E' 6.90 (< 7 cm/sec) E'/MED E' Ratio 17.13 (>14) LAT E' 6.50 (<10 cm/sec) E/LAT E' Ratio 18.18 (>14) Aortic Valve LVOT Max 113.00 (70-110 cm/s) LVOT VTI 27.26 cm AoV Peak Slim. 227.00 (50-130 cm/s) AI PHT 1361.00 ms AO Peak GR. 20.50 mmHg AO Mean GR. 10.20 (<5 mmHg) AO VTI 34.32 (18-25 cm) CAROL (VTI) 2.40 (2.5-4.5 cm2) Mitral Valve MV E Max Slim. 118.00 (40-130 cm/s) MV A Velocity 99.00 (40-130 cm/s) E/A Ratio 1.19 MV Decel. Time 283.00 (160-240 ms) MV PHT 83.00 ms Pulmonary Valve PV Peak Velocity 110.00 (50-150 cm/s) Tricuspid Valve TR P. Velocity 252.00 cm/s RAP Estimate 10.00 mmHg RVSP 35.40 mmHg Left Ventricle Left atrium is moderately enlarged, left ventricle is normal size mild concentric left ventricular hypertrophy, estimated ejection fraction 55% with no regional wall motion abnormality, diastolic parameters are inconclusive. Right Ventricle Right atrium and right ventricle are mildly enlarged with normal contractility. Aortic Valve Aortic valve is minimally thickened and fibrosed, there is no aortic stenosis, there is trace aortic insufficiency. Mitral Valve Mitral valve is grossly normal, there is trace mitral regurgitation. Tricuspid Valve Tricuspid grossly normal, there is trace tricuspid regurgitation, tricuspid regurgitation jet velocity is inadequate for calculation of the right ventricular systolic pressure. Pulmonic Valve Pulmonic valve is poorly visualized. Great Vessels Aortic root is normal size. Inferior vena cava is poorly visualized. Pericardium No significant pericardial effusion noted. Conclusion 1. Mild biatrial enlargement, normal left ventricular size, mild concentric left ventricular hypertrophy, estimated ejection fraction 55% with no regional wall motion abnormality, diastolic parameters are inconclusive. 2. Mildly enlarged right ventricle with normal contractility. 3. Trace aortic, mitral and tricuspid regurgitation. 4. No significant pericardial effusion. 5. Inferior vena cava is poorly visualized. Electronically signed by : Carl Plummer MD 05/05/2022 15:37:49
--- NOTE | 2022-05-04 08:53 | XR_ITS ---
FINAL REPORT CLINICAL HISTORY: PNA COMPARISON: 05/02/2022 FINDINGS: A single view of the chest was obtained. The heart is normal in size. The mediastinum is unremarkable. There is improved aeration of the lungs. The lungs are clear. IMPRESSION: No acute cardiopulmonary process. Reviewed, Interpreted and Dictated by Raina Tirado MD Transcribed by Millie Urbina Authenticated and [facility]
[2022-05-04 08:58] LABS: Basophils % 0.6 % (0.1-2.0); Eosinophils # 0.2 K/mm3 (0.0-0.4); Eosinophils % 5.9 % (0.1-12.0); Hematocrit 35.1 % (37.0-47.0); Lymphocytes # 0.8 K/mm3 (0.7-4.5); Lymphocytes % 23.7 % (10-50); Mean Corpuscular HGB Conc 34.2 g/dL (31.8-35.4); Mean Corpuscular Hemoglobin 33.4 pg (27.0-31.2); Mean Corpuscular Volume 97.7 fl (81-99); Mean Platelet Volume 8.3 fl (7.4-10.4); Monocytes # 0.2 K/mm3 (0.1-1.0); Monocytes % 5.5 % (1.7-9.3); Neutrophils # 2.1 K/mm3 (1.8-7.8); Neutrophils % 64.3 % (37.0-80.0); Platelet Count 103 K/mm3 (142-424); Red Blood Count 3.59 M/mm3 (4.20-5.40); White Blood Count 3.2 K/mm3 (4.8-10.8)
[2022-05-04 09:01] LABS: Chloride 112 mmol/L (98-107); Potassium 3.2 mmoL/L (3.5-5.1); Sodium 138 mmol/L (136-145)
[2022-05-04 09:04] LABS: Alanine Aminotransferase 24 U/L (12-78); Albumin Level 2.4 g/dl (3.5-5.0); Albumin/Globulin Ratio 0.8 (1.1-1.8); Alkaline Phosphatase 72 U/L (38-126); Anion Gap 4.2 mEq/L (5-15); Aspartate Amino Transferase 66 U/L (14-36); Bilirubin,Total 1.1 mg/dl (0.2-1.3); Blood Urea Nitrogen 12 mg/dl (7-17); Calcium 7.5 mg/dl (8.4-10.2); Carbon Dioxide 25 mmol/L (22.0-30.0); Creatinine Clearance Estimated 52 mL/min (50-200); Estimated Glomerular Filt Rate 52 ml/min (>60); GFR (African American) 63 ML/MIN (>60); Glucose 101 mg/dl (74-100); Magnesium 1.6 mg/dl (1.6-2.3); Total Protein,Serum 5.4 g/dl (6.3-8.2)
[2022-05-04 15:28] VITALS: BP 156/88; PULSE 67; RESP 18; TEMP 36.4; O2SAT 100
--- NOTE | 2022-05-04 17:16 | EXP.ACUTE.PN ---
Subjective *Date: 05/04/22 *Time: 17:16 Interval history: Overall feeling better, no concerns or complaints at this time. Medical Exam Vital signs and Labs for Last 24 Hours: Vital Signs Temp Pulse Resp BP Pulse Ox 05/04/22 15:28 97.6 F 67 18 156/88 H 100 05/04/22 07:59 97.7 F 76 17 156/85 H 97 05/04/22 04:00 98.4 F 75 16 139/78 95 05/04/22 00:00 97.9 F 77 16 132/74 93 L 05/03/22 20:00 98.4 F 75 16 152/70 H 98 05/03/22 20:00 97 Intake and Output 05/04/22 05/04/22 05/04/22 07:59 15:59 23:59 Intake Total 2026 / 2386 360 / 2386 Output Total 1000 / 1000 0 / 1000 Balance 1026 / 1386 360 / 1386 Intake: Intake, Oral Amount 360 / 720 360 / 720 Intake, Total IV Amount 1666 / 1666 Cefepime HCl 2 gm In 0.9 % 100 / 100 Sodium Chloride 100 ml @ 200 mls/hr IV Q12H NATALIE Rx#:[id number] Ringers Solution,Lactated 1,000 1216 / 1216 ml @ 150 mls/hr IV .[id number] NATALIE Rx#:[id number] Vancomycin/Water For Inj (Peg) 350 / 350 1.75 gm In 350 ml @ 175 mls/hr IV Q24H NATALIE Rx#:[id number] Output: Output, Urine Amount 0 / 0 0 / 0 Output, Urine Amount (Catheter) 1000 / 1000 Chao 1000 / 1000 Other: Number of Unmeasured Voids 0 1 Weight 108.976 kg Patient Weight 05/04/22 23:59 Weight 108.976 kg Laboratory Results - last 24 hr 05/04/22 08:45: Sodium 138, Potassium 3.2 L, Chloride 112 H, Carbon Dioxide 25, Anion Gap 4.2 L, BUN 12, Creatinine 1.10 H, Estimated Creat Clear 52, Estimated GFR 52 L, Est GFR ( Amer) 63 D, Glucose 101 H D, Calcium 7.5 L, Total Bilirubin 1.1, AST 66 H, ALT 24, Alkaline Phosphatase 72, Total Protein 5.4 L, Albumin 2.4 L, Globulin 3.0, Albumin/Globulin Ratio 0.8 L 05/04/22 08:45: WBC 3.2 L D, RBC 3.59 L, Hgb 12.0 L, Hct 35.1 L, MCV 97.7, MCH 33.4 H, MCHC 34.2, RDW 15.0, Plt Count 103 L, MPV 8.3, Neut % (Auto) 64.3, Lymph % (Auto) 23.7, [place] % (Auto) 5.5, Eos % (Auto) 5.9, Baso % (Auto) 0.6, Neut # (Auto) 2.1, Lymph # (Auto) 0.8, [place] # (Auto) 0.2, Eos # (Auto) 0.2, Baso # (Auto) 0.0 05/04/22 08:45: Phosphorus 2.0 L, Magnesium 1.6 I & O for Labs for Last 24 Hours: Intake & Output 05/01/22 05/02/22 05/03/22 05/04/22 23:59 23:59 23:59 23:59 Intake Total 2493 / 2493 2386 / 2386 Output Total 1750 / 1750 1000 / 1000 Balance 743 / 743 1386 / 1386 Weight 92.986 kg 104.808 kg 108.976 kg Microbiology Reports for the Last 24 Hours: Microbiology 05/02/22 21:46 Urine,Catheterized Urine Culture - Preliminary Head: Present atraumatic and normocephalic ENT: Present normal exam Neck: Present normal inspection Respiratory: Present accessory muscle use Cardiac: Present Reg Rate and Rhythm and S1/S2 GI: Present soft and tenderness Rectal (female): Present deferred (female): Present deferred Extremities: Present normal inspection Skin: Present intact and cyanosis Assessment and Plan *Assessment and plan (1) Sepsis: Status: Acute Category: Medical Code(s): A41.9 - Sepsis, unspecified organism (2) Encephalopathy: Status: Acute Category: Medical Code(s): G93.40 - Encephalopathy, unspecified (3) UTI (urinary tract infection): Status: Acute Category: Medical Code(s): N39.0 - Urinary tract infection, site not specified (4) Norovirus: Status: Acute Category: Medical Code(s): A08.11 - Acute gastroenteropathy due to [place] agent (5) KYLIE (acute kidney injury): Status: Acute Category: Medical Code(s): N17.9 - Acute kidney failure, unspecified (6) Hypertension: Status: Acute Category: Medical Code(s): I10 - Essential (primary) hypertension (7) Falls: Status: Acute Category: Medical Code(s): W19.XXXA - Unspecified fall, initial encounter (8) Hypothyroidism: Status: Acute Category: Medical Code(s): E03.9 - Hypothyroidism
--- NOTE | 2022-05-04 18:17 | PC.NURSE ---
Pt alert and oriented but slightly delayed. Chao catheter discontinued with patient up to BR with 1 for voids. Loose stools when voiding. On room air. IV fluids discontinued with patient tolerating oral intake. Ibuprofen, tylenol and flexeril for ARGUETA with patient stating at 1700 med pass that at her home facility they give her tylenol and flexeril together for her ARGUETA's.
[2022-05-04 19:49] VITALS: BP 142/66; PULSE 63; RESP 18; TEMP 36.7; O2SAT 98
[2022-05-04 20:00] VITALS: O2SAT 98
[2022-05-05 04:00] VITALS: BP 149/73; PULSE 61; RESP 20; TEMP 36.4; O2SAT 98; BMI 41.1
--- NOTE | 2022-05-05 04:08 | PC.NURSE ---
PATIENT SLEPT WELL UNTIL 4 AM WHEN SHE RANG OUT AND SAID SHE COULDNT BREATH AND BEGAN TO HAVE A DRY PERSISTANT COUGH. MEDICATED WITH ROBITUSSIN DM AND COUGH ALMOST STOPPED IMMEDIATEY, REMAINS IN CONTACT ISOLATION FOR NORAVIRUS AND MRSA,
[2022-05-05 07:33] LABS: Eosinophils # 0.2 K/mm3 (0.0-0.4); Eosinophils % 6.1 % (0.1-12.0); Hemoglobin 11.5 g/dL (12.2-16.2); Lymphocytes # 0.8 K/mm3 (0.7-4.5); Lymphocytes % 22.1 % (10-50); Mean Corpuscular HGB Conc 33.9 g/dL (31.8-35.4); Mean Corpuscular Hemoglobin 32.8 pg (27.0-31.2); Mean Corpuscular Volume 96.8 fl (81-99); Mean Platelet Volume 7.6 fl (7.4-10.4); Monocytes # 0.3 K/mm3 (0.1-1.0); Monocytes % 7.5 % (1.7-9.3); Neutrophils # 2.3 K/mm3 (1.8-7.8); Neutrophils % 63.3 % (37.0-80.0); Platelet Count 93 K/mm3 (142-424); Red Blood Count 3.52 M/mm3 (4.20-5.40); White Blood Count 3.6 K/mm3 (4.8-10.8)
[2022-05-05 07:41] LABS: Alanine Aminotransferase 20 U/L (12-78); Albumin Level 2.4 g/dl (3.5-5.0); Albumin/Globulin Ratio 0.9 (1.1-1.8); Alkaline Phosphatase 74 U/L (38-126); Anion Gap 6.1 mEq/L (5-15); Aspartate Amino Transferase 58 U/L (14-36); Bilirubin,Total 0.9 mg/dl (0.2-1.3); Blood Urea Nitrogen 14 mg/dl (7-17); Calcium 7.4 mg/dl (8.4-10.2); Carbon Dioxide 25 mmol/L (22.0-30.0); Chloride 111 mmol/L (98-107); Creatinine Clearance Estimated 52 mL/min (50-200); Estimated Glomerular Filt Rate 52 ml/min (>60); GFR (African American) 63 ML/MIN (>60); Globulin 2.8 g/dL (1.3-3.2); Glucose 74 mg/dl (74-100); Potassium 3.1 mmoL/L (3.5-5.1); Sodium 139 mmol/L (136-145); Total Protein,Serum 5.2 g/dl (6.3-8.2)
[2022-05-05 08:00] VITALS: BP 148/73; PULSE 70; RESP 18; TEMP 36.5; O2SAT 97; O2SAT 98
--- NOTE | 2022-05-05 08:42 | XR_ITS ---
FINAL REPORT CLINICAL HISTORY: cough COMPARISON: One day prior FINDINGS: Two views of the chest show lungs to be clear. Pulmonary vascularity is normal. Heart and mediastinum are unremarkable. No pleural effusion is present. IMPRESSION: No active disease. Reviewed, Interpreted and Dictated by Raina Tirado MD Transcribed by Alexus Estrada Authenticated and [facility]
--- NOTE | 2022-05-05 10:43 | SW/DCPLANNER ---
The [facility] for this [facility]. PT evaluated patient and stated that she is safe to return. I have notified Marybel morgan/ [facility] to inform her that patient will return later today pending no setbacks. I will set up [employer] once discharge is completed.
--- NOTE | 2022-05-05 14:13 | EXP.DC.SUM ---
General Admission date:: 05/03/22 HPI HPI HPI: Ms. Oconnor is a 52-year-old female who is a resident of a local correction. She has a history of liver cirrhosis and hepatic encephalopathy, she is on Rifaximin, Per staff, she has a guardian and a daughter. She was sent in from the correction due to falls and mental status changes. In the ER, she had a CT of the head that showed no acute intracranial abnormalities, CT of the spine that showed that the lung apices are normal with some mild degenerative changes, Cxray that showed mild hypoaeration, Pelvis imaging that showed no acute findings and Tib/Fib xrays that were negative for fracture. Covid and Flu testing were negative. Urinalysis showed 4 plus bacteria, trace leukoesterase and was positive for nitrites. Stool studies were positive for noravirus and Ammonia level was elevated at 125. Creatinine was elevated at 1.30. In the ER on exam, she would arouse to painful stimuli, but feel back asleep. She has a temperature of 102.9 at time of exam and oxygen is 90% on room air, HR was documented at 111 on arrival. Her history was obtained from discussion with the ER Physician and review of the patient's chart. The patient will be admitted with initial impression: Sepsis, Encephalopathy, UTI and Noravirus. Cultures were drawn, the patient was given Fluids in the ER. Hospital Course Hospital Course Hospital Course: Patient admitted after a fall at her facility. On admission noted to be febrile and tachycardic, with UTI possibly spontaneous bacterial peritonitis. Patient was started on Rocephin and received 3 days IV antibiotics as well as lactulose for elevated ammonia. Patient a quick clinical improvement. Was discharged on continued lactulose goal of 2-3 bowel movements per day. She was switched to cefdinir for total of 5 days antibiotic Exam Data for Last 24 hours Vital signs and Labs for Last 24 Hours: Temp Pulse Resp BP Pulse Ox 97.7 F 70 18 148/73 H 97 05/05/22 08:00 05/05/22 08:00 05/05/22 08:00 05/05/22 08:00 05/05/22 08:00 Laboratory Results - last 24 hr 05/02/22 21:46: Urine Color Brown, Urine Appearance Cloudy, Urine pH 6.5, Ur Specific [place] 1.020, Urine Protein 3+, Urine Glucose (UA) Trace, Urine Ketones Trace, Urine Blood 3+, Urine Nitrate Positive, Urine Bilirubin Negative, Urine Urobilinogen 2.0, Ur Leukocyte Esterase Trace, Urine RBC Tntc, Urine WBC 3-5, Urine Bacteria 4+ 05/05/22 07:03: Sodium 139, Potassium 3.1 L, Chloride 111 H, Carbon Dioxide 25, Anion Gap 6.1, BUN 14, Creatinine 1.10 H, Estimated Creat Clear 52, Estimated GFR 52 L, Est GFR ( Amer) 63, Glucose 74 D, Calcium 7.4 L, Total Bilirubin 0.9, AST 58 H, ALT 20, Alkaline Phosphatase 74, Total Protein 5.2 L, Albumin 2.4 L, Globulin 2.8, Albumin/Globulin Ratio 0.9 L 05/05/22 07:03: WBC 3.6 L, RBC 3.52 L, Hgb 11.5 L, Hct 34.0 L, MCV 96.8, MCH 32.8 H, MCHC 33.9, RDW 15.0, Plt Count 93 L, MPV 7.6, Neut % (Auto) 63.3, Lymph % (Auto) 22.1, [place] % (Auto) 7.5, Eos % (Auto) 6.1, Baso % (Auto) 1.0, Neut # (Auto) 2.3, Lymph # (Auto) 0.8, [place] # (Auto) 0.3, Eos # (Auto) 0.2, Baso # (Auto) 0.0 05/05/22 07:03: Phosphorus 3.0 D I & O for Last 24 hours: Intake & Output 05/02/22 05/03/22 05/04/22 05/05/22 23:59 23:59 23:59 23:59 Intake Total 2493 / 2493 2626 / 2626 1410 / 1410 Output Total 1750 / 1750 1000 / 1000 0 / 0 Balance 743 / 743 1626 / 1626 1410 / 1410 Weight 92.986 kg 104.808 kg 108.976 kg 109.316 kg Microbiology Reports for the Last 24 Hours: Microbiology 05/02/22 21:46 Urine,Catheterized Urine Culture - Preliminary Gram Negative Rods 05/02/22 20:15 Blood Blood Culture - Preliminary NO GROWTH AFTER 48 HOURS 05/02/22 20:15 Blood Blood Culture - Preliminary NO GROWTH AFTER 48 HOURS Constitutional Constitutional: no acute distress and cooperative *Routine HEENT Exam Head
[2022-05-10 23:24] LABS: MRSA DNA PCR NEGATIVE
== END 2022-05-05 17:10 | disposition home or self-care (01) | DRG 872 ==
LOC: ER 21:25 → 2ND 05-03 00:49
PROVIDERS: Nurse Practitioner Family; Admitting Provider Student in an Organized Health Care Education/Training Program; Emergency Provider Emergency Medicine; PCP Emergency Medicine; Visit Provider Student in an Organized Health Care Education/Training Program
DX: A41.9 Sepsis, unspecified organism (principal); N39.0 Urinary tract infection, site not specified; N17.9 Acute kidney failure, unspecified; A08.11 Acute gastroenteropathy due to Norwalk agent; G93.40 Encephalopathy, unspecified; W06.XXXA Fall from bed, initial encounter; K74.60 Unspecified cirrhosis of liver; G47.33 Obstructive sleep apnea (adult) (pediatric); Z87.891 Personal history of nicotine dependence; I10 Essential (primary) hypertension; D50.9 Iron deficiency anemia, unspecified; E03.9 Hypothyroidism, unspecified
CPT/HCPCS: 36415; 51702; 70450; 71045; 71046; 72125; 72170; 73590; 74177; 76700; 80053; 80305; 81001; 82140; 82150; 83605; 83690; 83735; 84100; 84436; 84443; 84450; 84460; 85007; 85025; 85610; 87040; 87086; 87088; 87186; 87507; 87641; 93306; 97162; 97165; 99285; C9803; J0696; Q9967; U0003; U0005

== ENCOUNTER 2022-06-17 17:48 | Emergency (ER) | payer BC, SELFPAY ==
[2022-06-17 17:45] VITALS: BP 166/87; PULSE 78; RESP 18; TEMP 36.8; O2SAT 96; BMI 37.8
--- NOTE | 2022-06-17 17:55 | XR_ITS ---
PROCEDURE INFORMATION: Exam: XR Chest Exam date and time: 06/17/2022 6:07 PM Age: 52 years old Clinical indication: Injury or trauma; Fall; Blunt trauma (contusions or hematomas); Additional info: Fall with multiple C/O, left shoulder, neck pain TECHNIQUE: Imaging protocol: Radiologic exam of the chest. Views: 1 view. COMPARISON: CR XR CHEST 2V 05/05/2022 9:33 AM FINDINGS: Lungs: No evidence of pneumonia or interstitial edema. Pleural spaces: Unremarkable. No pleural effusion. No pneumothorax. Heart/Mediastinum: Unremarkable. No cardiomegaly. Bones/joints: Unremarkable. IMPRESSION: No evidence of pneumonia or interstitial edema.
--- NOTE | 2022-06-17 17:56 | XR_ITS ---
PROCEDURE INFORMATION: Exam: XR Pelvis Exam date and time: 06/17/2022 6:06 PM Age: 52 years old Clinical indication: Injury or trauma; Fall; Blunt trauma (contusions or hematomas); Left; Hip; Additional info: Fall w multiple C/O, left hip, left le pain TECHNIQUE: Imaging protocol: Radiologic exam of the pelvis. Views: 1 or 2 view. COMPARISON: CT ABDOMEN PELVIS W CON 05/03/2022 12:52 AM FINDINGS: Bones/joints: No visible fracture or dislocation. Soft tissues: Unremarkable. IMPRESSION: No visible fracture or dislocation.
--- NOTE | 2022-06-17 17:57 | CT_ITS ---
PROCEDURE INFORMATION: Exam: CT Head Without Contrast Exam date and time: 06/17/2022 6:39 PM Age: 52 years old Clinical indication: Injury or trauma; Fall; Blunt trauma (contusions or hematomas); Without loss of consciousness; Additional info: Fall w mult C/O, left side of head pain, neck pain TECHNIQUE: Imaging protocol: Computed tomography of the head without contrast. Radiation optimization: All CT scans at this facility use at least one of these dose optimization techniques: automated exposure control; mA and/or kV adjustment per patient size (includes targeted exams where dose is matched to clinical indication); or iterative reconstruction. Other protocol: This patient has received 9 known CTs and 0 known cardiac nuclear medicine studies in the 12 months prior to the current study. COMPARISON: CT HEAD/BRAIN WO CON 05/02/2022 8:01 PM FINDINGS: Brain: Normal. No hemorrhage. Unremarkable white matter. No mass effect. Cerebral ventricles: No ventriculomegaly. Paranasal sinuses: Visualized sinuses are unremarkable. No fluid levels. Mastoid air cells: Visualized mastoid air cells are well aerated. Bones/joints: Unremarkable. No acute fracture. Soft tissues: Unremarkable. IMPRESSION: No acute intracranial abnormality.
--- NOTE | 2022-06-17 17:59 | CT_ITS ---
PROCEDURE INFORMATION: Exam: CT Thoracic Spine Without Contrast Exam date and time: 06/17/2022 6:43 PM Age: 52 years old Clinical indication: Injury or trauma; Fall; Blunt trauma (contusions or hematomas); Additional info: Fall w mult C/O, mid back pain TECHNIQUE: Imaging protocol: Computed tomography of the thoracic spine without contrast. Radiation optimization: All CT scans at this facility use at least one of these dose optimization techniques: automated exposure control; mA and/or kV adjustment per patient size (includes targeted exams where dose is matched to clinical indication); or iterative reconstruction. Other protocol: This patient has received 8 known CTs and 0 known cardiac nuclear medicine studies in the 12 months prior to the current study. COMPARISON: CT CERVICAL SPINE WO CON 06/17/2022 6:41 PM FINDINGS: Bones/joints: There is preservation of vertebral alignment and vertebral body heights. Facet joints are aligned. No acute fracture. There is no significant osseous encroachment of the spinal canal or neural foraminal narrowing at any level. Soft tissues: Unremarkable. IMPRESSION: No acute fracture. No traumatic subluxation.
--- NOTE | 2022-06-17 17:59 | CT_ITS ---
PROCEDURE INFORMATION: Exam: CT Cervical Spine Without Contrast Exam date and time: 06/17/2022 6:41 PM Age: 52 years old Clinical indication: Injury or trauma; Fall; Blunt trauma; Additional info: Fall w mult C/O, neck pain TECHNIQUE: Imaging protocol: Computed tomography of the cervical spine without contrast. Radiation optimization: All CT scans at this facility use at least one of these dose optimization techniques: automated exposure control; mA and/or kV adjustment per patient size (includes targeted exams where dose is matched to clinical indication); or iterative reconstruction. Other protocol: This patient has received 8 known CTs and 0 known cardiac nuclear medicine studies in the 12 months prior to the current study. COMPARISON: CT CERVICAL SPINE WO CON 05/02/2022 8:01 PM FINDINGS: Bones/joints: No acute fracture. Normal alignment. No significant disc bulge or herniation. No severe spinal canal stenosis. No significant neural foraminal narrowing. Lungs: Lung apices are normal. Soft tissues: Unremarkable. IMPRESSION: No acute findings.
--- NOTE | 2022-06-17 17:59 | CT_ITS ---
PROCEDURE INFORMATION: Exam: CT Lumbar Spine Without Contrast Exam date and time: 06/17/2022 6:45 PM Age: 52 years old Clinical indication: Injury or trauma; Fall; Blunt trauma (contusions or hematomas); Additional info: Fall w mult C/O, neck pain TECHNIQUE: Imaging protocol: Computed tomography of the lumbar spine without contrast. Radiation optimization: All CT scans at this facility use at least one of these dose optimization techniques: automated exposure control; mA and/or kV adjustment per patient size (includes targeted exams where dose is matched to clinical indication); or iterative reconstruction. Other protocol: This patient has received 8 known CTs and 0 known cardiac nuclear medicine studies in the 12 months prior to the current study. COMPARISON: CT THORACIC SPINE WO CON 06/17/2022 6:43 PM FINDINGS: Bones/joints: There is preservation of vertebral alignment and vertebral body heights. Facet joints are aligned. No acute fracture. No significant central spinal canal stenosis or neural foraminal narrowing at any level. Sacroiliac joints are intact. Soft tissues: Unremarkable. IMPRESSION: No acute fracture. No traumatic subluxation.
[2022-06-17 18:00] VITALS: BP 157/86; PULSE 76; RESP 16; O2SAT 96
--- NOTE | 2022-06-17 18:02 | XR_ITS ---
PROCEDURE INFORMATION: Exam: XR Left Shoulder Exam date and time: 06/17/2022 6:09 PM Age: 52 years old Clinical indication: Injury or trauma; Fall; Blunt trauma (contusions or hematomas); Shoulder; Left; Additional info: Left shoulder pain after fall TECHNIQUE: Imaging protocol: Radiologic exam of the Left shoulder. Views: 2 or more views. COMPARISON: CR XR CHEST PORTABLE 06/17/2022 6:07 PM FINDINGS: Bones/joints: There are mild degenerative changes of the acromioclavicular joint. No visible fracture or dislocation. Soft tissues: Normal. IMPRESSION: No visible fracture or dislocation.
--- NOTE | 2022-06-17 18:06 | XR_ITS ---
PROCEDURE INFORMATION: Exam: XR Left Knee Exam date and time: 06/17/2022 6:39 PM Age: 52 years old Clinical indication: Injury or trauma; Fall; Blunt trauma; Knee; Bilateral; Additional info: Fall w mult C/O, left le and knee pain TECHNIQUE: Imaging protocol: Radiologic exam of the Left knee. Views: 1 or 2 views. COMPARISON: CR XR TIBIA FIBULA LT 2V 05/02/2022 7:43 PM FINDINGS: Bones/joints: No visible fracture or dislocation. No joint effusion Soft tissues: Normal. IMPRESSION: No visible fracture or dislocation.
[2022-06-17 18:10] LABS: Basophils % 1.3 % (0.1-2.0); Eosinophils # 0.2 K/mm3 (0.0-0.4); Eosinophils % 5.4 % (0.1-12.0); Hematocrit 37.7 % (37.0-47.0); Hemoglobin 12.7 g/dL (12.2-16.2); Lymphocytes # 0.9 K/mm3 (0.7-4.5); Lymphocytes % 26.7 % (10-50); Mean Corpuscular HGB Conc 33.7 g/dL (31.8-35.4); Mean Corpuscular Hemoglobin 33.1 pg (27.0-31.2); Mean Corpuscular Volume 98.4 fl (81-99); Mean Platelet Volume 7.8 fl (7.4-10.4); Monocytes # 0.2 K/mm3 (0.1-1.0); Monocytes % 6.3 % (1.7-9.3); Neutrophils % 60.4 % (37.0-80.0); Platelet Count 113 K/mm3 (142-424); Red Blood Count 3.83 M/mm3 (4.20-5.40); Red Cell Distribution Width 14.5 % (11.5-17.5); White Blood Count 3.4 K/mm3 (4.8-10.8)
--- NOTE | 2022-06-17 18:19 | XR_ITS ---
PROCEDURE INFORMATION: Exam: XR Right Knee Exam date and time: 06/17/2022 6:12 PM Age: 52 years old Clinical indication: Pain; Knee; Bilateral TECHNIQUE: Imaging protocol: Radiologic exam of the Right knee. Views: 3 views. COMPARISON: No relevant prior studies available. FINDINGS: Bones/joints: No visible fracture or dislocation. No joint effusion Soft tissues: Normal. IMPRESSION: No visible fracture or dislocation.
[2022-06-17 18:23] LABS: Alanine Aminotransferase 25 U/L (12-78); Albumin/Globulin Ratio 0.8 (1.1-1.8); Alkaline Phosphatase 89 U/L (38-126); Anion Gap 4.8 mEq/L (5-15); Aspartate Amino Transferase 60 U/L (14-36); Blood Urea Nitrogen 8 mg/dl (7-17); Calcium 8.3 mg/dl (8.4-10.2); Carbon Dioxide 30 mmol/L (22.0-30.0); Chloride 111 mmol/L (98-107); Creatinine Clearance Estimated 95 mL/min (50-200); Estimated Glomerular Filt Rate 58 ml/min (>60); GFR (African American) 71 ML/MIN (>60); Globulin 3.6 g/dL (1.3-3.2); Glucose 132 mg/dl (74-100); Potassium 3.8 mmoL/L (3.5-5.1); Sodium 142 mmol/L (136-145); Total Protein,Serum 6.6 g/dl (6.3-8.2)
[2022-06-17 18:36] LABS: Troponin I < 0.01 ng/ml (0.00-0.034)
--- NOTE | 2022-06-17 18:40 | HMH.EDGENADL ---
Discharge Plan Disposition Patient Disposition: Home, Self-Care Condition: Good Chief Complaint: Fall Prescriptions Prescriptions: No Action amitriptyline 50 mg Tablet 50 mg PO HS carvedilol 3.125 mg Tablet 3.125 mg PO BID Rx Instructions: must administer with a meal/food levothyroxine 100 mcg Tablet 100 mcg PO DAILY pantoprazole 40 mg Tablet,Delayed Release (Dr/Ec) 40 mg PO DAILY lisinopril 10 mg Tablet 10 mg PO DAILY duloxetine 30 mg Capsule,Delayed Release(Dr/Ec) 30 mg PO DAILY ferrous sulfate 324 mg (65 mg iron) Tablet,Delayed Release (Dr/Ec) 324 mg PO DAILY Rx Instructions: every other day rifaximin 550 mg Tablet 550 mg PO BID melatonin 5 mg tablet 5 mg PO HS PRN (Reason: Sleep) acetaminophen 325 mg Tablet 325 mg PO QID PRN (Reason: Anxiety) hydroxyzine pamoate 25 mg Capsule 25 mg PO QID PRN (Reason: Anxiety) cyclobenzaprine 5 mg Tablet 5 mg PO TID PRN (Reason: muscle spasms) lactulose 20 gram/30 mL Solution 10 g PO QID 30 Days Qty: 1800 0RF cefdinir 300 mg capsule 300 mg PO Q12H 3 Days Qty: 6 0RF Referrals Follow up/Referrals: Joseph (ED),Leonardo Smith MD [Primary Care Provider] - See instructions Activity Restrictions/Add. Instructions Additional Instructions/Restrictions: Tylenol for pain. Follow-up with Dr. Ruiz for further care for any concerns. Clinical Impressions Clinical Impression: Fall, Left shoulder strain, Contusion of knee, Abdominal contusion, CHI (closed head injury), Cervical muscle strain, Strain of thoracic spine, Lumbar strain Instructions Patient Instructions: How to Prevent Falls, DI for Closed Head Injury Discharge ED Provider: Jeffery Arora General Adult HPI General Chief complaint: Fall Stated complaint: FALL Time Seen by Provider: 06/17/22 18:40 Mode of Arrival: EMS Source of Information: Patient Limitations: Physical Limitations Description of Symptoms (Recalled from ER Triage Doc. by RN): Pt via EMS for reported trip and fall, face down, c/o left side of head pain, neck pain, LUE, LLE and abd pain; c-collar in place, denies loc History of Present Illness HPI narrative: The patient is brought in by ambulance from [facility]. She is a poor historian. Reportedly she fell landing face down. She tells me that she tripped over a metal threshold on the floor. However, also states that she fell earlier in the day. She has multiple complaints including an aching in her head, neck soreness, left shoulder pain, pain in both knees, soreness in her abdomen. Related Data Home Medications Medication Instructions Recorded Confirmed amitriptyline 50 mg tablet 50 mg PO HS antidepressant 05/02/22 05/02/22 carvedilol 3.125 mg tablet 3.125 mg PO BID High blood pressure 05/02/22 05/02/22 duloxetine 30 mg capsule,delayed 30 mg PO DAILY antidepressant 05/02/22 05/02/22 release ferrous sulfate 324 mg (65 mg 324 mg PO DAILY Supplement 05/02/22 05/02/22 iron) tablet,delayed release levothyroxine 100 mcg tablet 100 mcg PO DAILY hypothyroidism 05/02/22 05/02/22 lisinopril 10 mg tablet 10 mg PO DAILY High blood pressure 05/02/22 05/02/22 pantoprazole 40 mg tablet,delayed 40 mg PO DAILY acid reflux 05/02/22 05/02/22 release rifaximin 550 mg tablet 550 mg PO BID diarrhea 05/02/22 05/02/22 acetaminophen 325 mg tablet 325 mg PO QID PRN Anxiety 05/03/22 05/03/22 cyclobenzaprine 5 mg tablet 5 mg PO TID PRN muscle spasms 05/03/22 05/03/22 hydroxyzine pamoate 25 mg capsule 25 mg PO QID PRN Anxiety 05/03/22 05/03/22 melatonin 5 mg tablet 5 mg PO HS PRN Sleep 05/03/22 05/03/22 Previous Rx's Medication Instructions Recorded cefdinir 300 mg capsule 300 mg PO Q12H 3 days #6 caps 05/05/22 lactulose 20 gram/30 mL oral 10 g (15 mL) PO QID 30 days #1,800 05/05/22 solution mL Allergies Allergy/AdvReac Type Severity Reaction Status Date / Time amoxicillin [From Augmentin] Aller
--- NOTE | 2022-06-17 18:48 | CT_ITS ---
PROCEDURE INFORMATION: Exam: CT Chest Without Contrast; Diagnostic Exam date and time: 06/17/2022 6:52 PM Age: 52 years old Clinical indication: Pain; Chest pressure; Additional info: Fall w mult C/O TECHNIQUE: Imaging protocol: Diagnostic computed tomography of the chest without contrast. Radiation optimization: All CT scans at this facility use at least one of these dose optimization techniques: automated exposure control; mA and/or kV adjustment per patient size (includes targeted exams where dose is matched to clinical indication); or iterative reconstruction. Other protocol: This patient has received 9 known CTs and 0 known cardiac nuclear medicine studies in the 12 months prior to the current study. COMPARISON: CR XR CHEST PORTABLE 06/17/2022 6:07 PM FINDINGS: Lungs: Unremarkable. No consolidation. No masses. Pleural spaces: Unremarkable. No pneumothorax. No pleural effusion. Heart: Unremarkable. No cardiomegaly. No pericardial effusion. Lymph nodes: Unremarkable. No enlarged lymph nodes. Vasculature: Unremarkable. No aortic aneurysm. No calcification is seen in visualized coronary arteries. Bones/joints: Unremarkable. No acute fracture. Soft tissues: Unremarkable. IMPRESSION: No acute findings.
--- NOTE | 2022-06-17 18:49 | CT_ITS ---
PROCEDURE INFORMATION: Exam: CT Abdomen And Pelvis Without Contrast Exam date and time: 06/17/2022 6:55 PM Age: 52 years old Clinical indication: Abdominal pain; Additional info: Fall w mult C/O including abdominal pain TECHNIQUE: Imaging protocol: Computed tomography of the abdomen and pelvis without contrast. Radiation optimization: All CT scans at this facility use at least one of these dose optimization techniques: automated exposure control; mA and/or kV adjustment per patient size (includes targeted exams where dose is matched to clinical indication); or iterative reconstruction. Other protocol: This patient has received 9 known CTs and 0 known cardiac nuclear medicine studies in the 12 months prior to the current study. COMPARISON: CT ABDOMEN PELVIS W CON 05/03/2022 12:52 AM FINDINGS: Liver: Heterogeneous liver. Gallbladder and bile ducts: Gallbladder surgically absent. Pancreas: Normal. No ductal dilation. Spleen: Normal. No splenomegaly. Adrenal glands: Normal. No mass. Kidneys and ureters: Normal. No hydronephrosis. Stomach and bowel: Moderately large retained colonic stool. Appendix: No evidence of appendicitis. Intraperitoneal space: Unremarkable. No free air. No significant fluid collection. Vasculature: Unremarkable. No abdominal aortic aneurysm. Lymph nodes: Unremarkable. No enlarged lymph nodes. Urinary bladder: Unremarkable as visualized. Reproductive: Unremarkable as visualized. Bones/joints: Unremarkable. No acute fracture. Soft tissues: Postsurgical changes of anterior abdominal wall. No obvious defect or hernia identified. IMPRESSION: 1. No acute findings identified. 2. Nonspecific heterogeneous liver based on unenhanced CT scan. 3. Moderately large colonic stool burden.
--- NOTE | 2022-06-17 19:21 | PC.NURSE ---
Assisted patient up to BSC with ANGELITA Wyatt. Patient voided 300ml margot colored urine. ANGELITA Wyatt assisted patient back to bed, applied blanket and side rails placed up.
--- NOTE | 2022-06-17 19:22 | PC.NURSE ---
Dr. Garay at bedside. removed c-collar at this time.
--- NOTE | 2022-06-17 19:44 | PC.NURSE ---
Duncan calderon called to let know pt is ready for discharge @ this time.
[2022-06-17 20:34] VITALS: BP 148/76; PULSE 82; RESP 18; TEMP 36.7; O2SAT 94
== END 2022-06-17 20:25 | disposition home or self-care (01) ==
PROVIDERS: Emergency Provider Emergency Medicine; PCP Emergency Medicine; Referring Provider Internal Medicine
DX: S09.8XXA Other specified injuries of head, initial encounter (principal); W01.0XXA Fall on same level from slipping, tripping and stumbling without subsequent striking against object, initial encounter; S43.402A Unspecified sprain of left shoulder joint, initial encounter; S80.01XA Contusion of right knee, initial encounter; S80.02XA Contusion of left knee, initial encounter; S30.1XXA Contusion of abdominal wall, initial encounter; S16.1XXA Strain of muscle, fascia and tendon at neck level, initial encounter; S39.012A Strain of muscle, fascia and tendon of lower back, initial encounter; S23.3XXA Sprain of ligaments of thoracic spine, initial encounter; K74.60 Unspecified cirrhosis of liver; F41.9 Anxiety disorder, unspecified; E03.9 Hypothyroidism, unspecified
CPT/HCPCS: 70450; 71045; 71250; 72125; 72128; 72131; 72170; 73030; 73560; 73562; 74176; 80053; 84484; 85025; 99285

== ENCOUNTER 2022-07-14 13:40 | Emergency (ER) | payer BC, SELFPAY ==
[2022-07-14] VITALS (16 sets, daily range): BP systolic 136–190; BP diastolic 67–121; PULSE 60–75; RESP 14–19; TEMP 36.8; O2SAT 94–98; BMI 38.7
--- NOTE | 2022-07-14 14:28 | HMH.EDGENADL ---
Discharge Plan Disposition Patient Disposition: Home, Self-Care Condition: Good Prescriptions Prescriptions: New amlodipine 5 mg tablet 5 mg PO HS Qty: 30 0RF prednisone 20 mg tablet 20 mg PO BID Qty: 10 0RF No Action amitriptyline 50 mg Tablet 50 mg PO HS carvedilol 3.125 mg Tablet 3.125 mg PO BID Rx Instructions: must administer with a meal/food levothyroxine 100 mcg Tablet 100 mcg PO DAILY pantoprazole 40 mg Tablet,Delayed Release (Dr/Ec) 40 mg PO DAILY lisinopril 10 mg Tablet 10 mg PO DAILY duloxetine 30 mg Capsule,Delayed Release(Dr/Ec) 30 mg PO DAILY ferrous sulfate 324 mg (65 mg iron) Tablet,Delayed Release (Dr/Ec) 324 mg PO DAILY Rx Instructions: every other day rifaximin 550 mg Tablet 550 mg PO BID melatonin 5 mg tablet 5 mg PO HS PRN (Reason: Sleep) acetaminophen 325 mg Tablet 325 mg PO QID PRN (Reason: Anxiety) hydroxyzine pamoate 25 mg Capsule 25 mg PO QID PRN (Reason: Anxiety) cyclobenzaprine 5 mg Tablet 5 mg PO TID PRN (Reason: muscle spasms) lactulose 20 gram/30 mL Solution 10 g PO QID 30 Days Qty: 1800 0RF cefdinir 300 mg capsule 300 mg PO Q12H 3 Days Qty: 6 0RF Referrals Follow up/Referrals: Provider,Referral, MD [Primary Care Provider] - See instructions Activity Restrictions/Add. Instructions Additional Instructions/Restrictions: STOP TAKING LISINOPRIL AND DO NOT TAKE LISINOPRIL OR OTHER KARLA INHIBITORS IN THE FUTURE. Start taking amlodipine each evening as prescribed. Take prednisone for 5 days as prescribed for rash. Take hydroxyzine (you are already prescribed this medication) 4 times a day for 5 days for rash. Return to the emergency department if worsening swelling of mouth or throat, or difficulty breathing or swallowing. Clinical Impressions Clinical Impression: Lip edema, Rash Instructions Patient Instructions: DI for Angioedema, DI for Rash Discharge ED Provider: Jeffery Arora Adult HPI General Chief complaint: Allergic Reaction Stated complaint: Rash arms,kneck,swollen face Time Seen by Provider: 07/14/22 14:11 Mode of Arrival: EMS Source of Information: Patient Limitations: No Limitations Description of Symptoms (Recalled from ER Triage Doc. by RN): Presents with 3 day rash that has progressed to the trunk and bilateral UE. Pt also states her lips and tongue feel swollen that started today. Denies any changes in medications/detergents etc. Currently on Lisinopril. History of Present Illness HPI narrative: Patient is brought in by ambulance from [facility]. She complains of a rash on both of her arms that started 3 days ago. It is pruritic. She says it started out as little red bumps and now the bumps have gotten much bigger. She says her lower lip feels swollen. She describes some difficulty breathing but when she elaborates on this she says it is due to nasal congestion. No new medications. No new exposures. She is noted to be on lisinopril. Related Data Home Medications Medication Instructions Recorded Confirmed amitriptyline 50 mg tablet 50 mg PO HS antidepressant 05/02/22 05/02/22 carvedilol 3.125 mg tablet 3.125 mg PO BID High blood pressure 05/02/22 05/02/22 duloxetine 30 mg capsule,delayed 30 mg PO DAILY antidepressant 05/02/22 05/02/22 release ferrous sulfate 324 mg (65 mg 324 mg PO DAILY Supplement 05/02/22 05/02/22 iron) tablet,delayed release levothyroxine 100 mcg tablet 100 mcg PO DAILY hypothyroidism 05/02/22 05/02/22 lisinopril 10 mg tablet 10 mg PO DAILY High blood pressure 05/02/22 05/02/22 pantoprazole 40 mg tablet,delayed 40 mg PO DAILY acid reflux 05/02/22 05/02/22 release rifaximin 550 mg tablet 550 mg PO BID diarrhea 05/02/22 05/02/22 acetaminophen 325 mg tablet 325 mg PO QID PRN Anxiety 05/03/22 05/03/22 cyclobenzaprine 5 mg tablet 5 mg PO TID PRN muscle spasms 05/03/22 05/03/22 hydroxyzine pamoate
[2022-07-14 14:52] LABS: Basophils % 0.8 % (0.1-2.0); Eosinophils # 0.2 K/mm3 (0.0-0.4); Eosinophils % 6.3 % (0.1-12.0); Hemoglobin 12.9 g/dL (12.2-16.2); Lymphocytes # 0.5 K/mm3 (0.7-4.5); Lymphocytes % 17.4 % (10-50); Mean Corpuscular Volume 96.4 fl (81-99); Mean Platelet Volume 8.4 fl (7.4-10.4); Monocytes # 0.2 K/mm3 (0.1-1.0); Monocytes % 6.9 % (1.7-9.3); Neutrophils # 2.1 K/mm3 (1.8-7.8); Neutrophils % 68.5 % (37.0-80.0); Platelet Count 107 K/mm3 (142-424); Red Blood Count 3.12 M/mm3 (4.20-5.40); Red Cell Distribution Width 14.1 % (11.5-17.5)
[2022-07-14 14:57] LABS: Chloride 104 mmol/L (98-107)
[2022-07-14 14:58] LABS: Potassium 4.1 mmoL/L (3.5-5.1); Sodium 138 mmol/L (136-145)
[2022-07-14 15:00] LABS: Blood Urea Nitrogen 8 mg/dl (7-17); Creatinine Clearance Estimated 98 mL/min (50-200); Estimated Glomerular Filt Rate 58 ml/min (>60); GFR (African American) 71 ML/MIN (>60)
[2022-07-14 15:01] LABS: Alanine Aminotransferase 18 U/L (12-78); Albumin Level 3.1 g/dl (3.5-5.0); Albumin/Globulin Ratio 0.9 (1.1-1.8); Alkaline Phosphatase 84 U/L (38-126); Anion Gap 3.1 mEq/L (5-15); Aspartate Amino Transferase 43 U/L (14-36); Bilirubin,Total 0.9 mg/dl (0.2-1.3); Calcium 8.3 mg/dl (8.4-10.2); Carbon Dioxide 35 mmol/L (22.0-30.0); Globulin 3.5 g/dL (1.3-3.2); Glucose 81 mg/dl (74-100); Total Protein,Serum 6.6 g/dl (6.3-8.2)
[2022-07-14 15:08] LABS: C-Reactive Protein 28.1 mg/L (0-4)
--- NOTE | 2022-07-14 15:41 | PC.NURSE ---
TYSON PARADA at for update on POC
[2022-07-14 15:45] LABS: Mean Corpuscular HGB Conc 42.9 g/dL (31.8-35.4); Mean Corpuscular Hemoglobin 41.4 pg (27.0-31.2)
[2022-07-14 16:40] LABS: Erythrocyte Sedimentation Rate 112 mm/hr (0-30)
--- NOTE | 2022-07-14 17:27 | PC.NURSE ---
rounded on pt she is sleeping,call light at bedside
--- NOTE | 2022-07-14 20:33 | PC.NURSE ---
Called eduarda calderon, staff member said all workers there [facility] do not have a drivers license so they will have to call [facility] to have someone pick the patient up.
--- NOTE | 2022-07-14 20:40 | PC.NURSE ---
eduarda calderon called back in said that [facility] staff nithya does not have a drivers licenses as well.
--- NOTE | 2022-07-14 21:47 | PC.NURSE ---
attempted to call eduarda calderon back, no answer at this time.
--- NOTE | 2022-07-14 21:58 | PC.NURSE ---
attempted for the second time to call eduarda calderon, no answer.
== END 2022-07-14 22:30 | disposition home or self-care (01) ==
PROVIDERS: Emergency Provider Emergency Medicine
DX: R21 Rash and other nonspecific skin eruption (principal); R22.9 Localized swelling, mass and lump, unspecified
CPT/HCPCS: 80053; 85025; 85651; 86140; 96374; 96375; 99284; 99285

== ENCOUNTER 2022-08-07 19:16 | Emergency (ER) | payer BC, SELFPAY ==
--- NOTE | 2022-08-07 | XR_ITS ---
Addendum created by Deejay Crespo MD on 08/08/2022 9:43:19 AM EDT: Patient information is now correct. Addendum created by Deejay Crespo MD on 08/07/2022 11:08:09 PM EDT: Please disregard this dictation as study was performed on the incorrect patient. Initial report created on 08/07/2022 9:38:22 PM EDT: PROCEDURE INFORMATION: Exam: XR Right Tibia and Fibula Exam date and time: 08/07/2022 8:50 PM Age: 68 years old Clinical indication: Pain; Lower leg; Right; Additional info: Injury TECHNIQUE: Imaging protocol: Radiologic exam of the right tibia and fibula. Views: 2 views. COMPARISON: No relevant prior studies available. FINDINGS: Bones/joints: Normal. Soft tissues: Normal. IMPRESSION: No acute findings. -- [ Addendum Report Added by DEEJAY CRESPO at 08/08/2022 09:43:19 ] [facility]
--- NOTE | 2022-08-07 | XR_ITS ---
Addendum created by Deejay Crespo MD on 08/07/2022 11:08:23 PM EDT: Please disregard this dictation as study was performed on the incorrect patient. Initial report created on 08/07/2022 9:39:17 PM EDT: PROCEDURE INFORMATION: Exam: XR Right Foot Exam date and time: 08/07/2022 8:53 PM Age: 68 years old Clinical indication: Pain; Foot; Right; Additional info: Injury TECHNIQUE: Imaging protocol: Radiologic exam of the right foot. Views: 3 or more views. COMPARISON: CR XR ANKLE RT MIN 3V 08/07/2022 8:51 PM FINDINGS: Bones/joints: Osseous alignment is normal. No acute fracture or arthritic change. Mild plantar spurring of the calcaneus noted. Soft tissues: Normal. IMPRESSION: No acute fracture -- [ Addendum Report Added by DEEJAY CRESPO at 08/08/2022 09:43:35 ] Addendum created by Deejay Crespo MD on 08/07/2022 11:08:23 PM EDT: Please disregard this dictation as study was performed on the incorrect patient. Initial report created on 08/07/2022 9:39:17 PM EDT: PROCEDURE INFORMATION: Exam: XR Right Foot Exam date and time: 08/07/2022 8:53 PM Age: 68 years old Clinical indication: Pain; Foot; Right; Additional info: Injury TECHNIQUE: Imaging protocol: Radiologic exam of the right foot. Views: 3 or more views. COMPARISON: CR XR ANKLE RT MIN 3V 08/07/2022 8:51 PM FINDINGS: Bones/joints: Osseous alignment is normal. No acute fracture or arthritic change. Mild plantar spurring of the calcaneus noted. Soft tissues: Normal. IMPRESSION: No acute fracture -- [ Addendum Report Added by DEEJAY CRESPO at 08/07/2022 23:08:23 ] PROCEDURE INFORMATION: Exam: XR Right Foot Exam date and time: 08/07/2022 8:53 PM Age: 68 years old Clinical indication: Pain; Foot; Right; Additional info: Injury TECHNIQUE: Imaging protocol: Radiologic exam of the right foot. Views: 3 or more views. COMPARISON: CR XR ANKLE RT MIN 3V 08/07/2022 8:51 PM FINDINGS: Bones/joints: Osseous alignment is normal. No acute fracture or arthritic change. Mild plantar spurring of the calcaneus noted. Soft tissues: Normal. IMPRESSION: No acute fracture
--- NOTE | 2022-08-07 | XR_ITS ---
Addendum created by Deejay Crespo MD on 08/07/2022 11:07:58 PM EDT: Please disregard this dictation as study was performed on the incorrect patient. Initial report created on 08/07/2022 9:37:03 PM EDT: PROCEDURE INFORMATION: Exam: XR Right Ankle Exam date and time: 08/07/2022 8:51 PM Age: 68 years old Clinical indication: Pain; Ankle; Right; Additional info: Injury TECHNIQUE: Imaging protocol: Radiologic exam of the right ankle. Views: 3 or more views. COMPARISON: CR XR TIBIA FIBULA RT 2V 08/07/2022 8:50 PM FINDINGS: Bones/joints: Normal. Soft tissues: There is significant diffuse soft tissue swelling of the ankle. IMPRESSION: No acute fracture or dislocation -- [ Addendum Report Added by DEEJAY CRESPO at 08/08/2022 09:43:00 ] [facility]
[2022-08-07 19:16] VITALS: BP 130/67; PULSE 70; RESP 17; TEMP 36.8; O2SAT 95; BMI 41.9
[2022-08-07 19:30] VITALS: BP 133/61; PULSE 66; RESP 20; O2SAT 95
[2022-08-07 19:31] LABS: Basophils % 0.6 % (0.1-2.0); Eosinophils # 0.6 K/mm3 (0.0-0.4); Eosinophils % 10.8 % (0.1-12.0); Hematocrit 38.2 % (37.0-47.0); Hemoglobin 12.5 g/dL (12.2-16.2); Lymphocytes # 1.1 K/mm3 (0.7-4.5); Lymphocytes % 20.2 % (10-50); Mean Corpuscular HGB Conc 32.8 g/dL (31.8-35.4); Mean Corpuscular Hemoglobin 32.3 pg (27.0-31.2); Mean Corpuscular Volume 98.5 fl (81-99); Monocytes # 0.4 K/mm3 (0.1-1.0); Monocytes % 6.4 % (1.7-9.3); Neutrophils # 3.5 K/mm3 (1.8-7.8); Platelet Count 136 K/mm3 (142-424); Red Blood Count 3.88 M/mm3 (4.20-5.40); Red Cell Distribution Width 14.7 % (11.5-17.5); White Blood Count 5.6 K/mm3 (4.8-10.8)
[2022-08-07 19:35] LABS: Chloride 105 mmol/L (98-107); Potassium 3.6 mmoL/L (3.5-5.1); Sodium 139 mmol/L (136-145)
[2022-08-07 19:38] LABS: Alanine Aminotransferase 22 U/L (12-78); Albumin Level 2.9 g/dl (3.5-5.0); Albumin/Globulin Ratio 0.9 (1.1-1.8); Alkaline Phosphatase 92 U/L (38-126); Anion Gap 6.6 mEq/L (5-15); Aspartate Amino Transferase 42 U/L (14-36); Bilirubin,Total 1.2 mg/dl (0.2-1.3); Blood Urea Nitrogen 10 mg/dl (7-17); Calcium 8.3 mg/dl (8.4-10.2); Carbon Dioxide 31 mmol/L (22.0-30.0); Creatinine Clearance Estimated 46 mL/min (50-200); Estimated Glomerular Filt Rate 52 ml/min (>60); GFR (African American) 63 ML/MIN (>60); Globulin 3.2 g/dL (1.3-3.2); Glucose 86 mg/dl (74-100); Total Protein,Serum 6.1 g/dl (6.3-8.2)
[2022-08-07 20:00] VITALS: BP 117/60; PULSE 60; RESP 18; O2SAT 96
[2022-08-07 20:28] LABS: Microscopic, Urine URINE MICROSCOPIC (MICROSCOPIC)
[2022-08-07 20:37] LABS: Appearance,Urine CLOUDY (Clear); Blood, Urine 3+ (Negative); Color,Urine AMBER (Yellow); Glucose,Urine (UA) Negative (Negative); Ketones,Urine Negative (Negative); Leukocyte Esterase,Urine TRACE (Negative); Nitrate,Urine POSITIVE (Negative); PH,Urine 5.5 (5.0-8.5); Protein,Urine 2+ (Negative); Specific Gravity, Urine 1.025 (1.005-1.030)
[2022-08-07 20:40] LABS: Bilirubin,Urine 1+ (Negative)
--- NOTE | 2022-08-07 20:51 | PC.NURSE ---
Rounded on patient. patient in room, no needs voiced at this time.
[2022-08-07 20:58] LABS: Bacteria,Urine 4+ /lpf; Squamous Epithelial Cell,Urine Occasional #/hpf (0-5)
--- NOTE | 2022-08-07 22:58 | HMH.EDUROGF ---
Discharge Plan Disposition Patient Disposition: Home, Self-Care Prescriptions Prescriptions: New cephalexin [cephalexin] 500 mg capsule 500 mg PO TID Qty: 21 0RF No Action amlodipine 5 mg tablet See Rx Instructions .ROUTE .COMPLEX Qty: 30 11RF Dose Instruction: TAKE 1 TABLET BY MOUTH AT BEDTIME Rx Instructions: TAKE 1 TABLET BY MOUTH AT BEDTIME amitriptyline 50 mg Tablet 50 mg PO HS carvedilol 3.125 mg Tablet 3.125 mg PO BID Rx Instructions: must administer with a meal/food levothyroxine 100 mcg Tablet 100 mcg PO DAILY pantoprazole 40 mg Tablet,Delayed Release (Dr/Ec) 40 mg PO DAILY lisinopril 10 mg Tablet 10 mg PO DAILY duloxetine 30 mg Capsule,Delayed Release(Dr/Ec) 30 mg PO DAILY ferrous sulfate 324 mg (65 mg iron) Tablet,Delayed Release (Dr/Ec) 324 mg PO DAILY Rx Instructions: every other day rifaximin 550 mg Tablet 550 mg PO BID melatonin 5 mg tablet 5 mg PO HS PRN (Reason: Sleep) acetaminophen 325 mg Tablet 325 mg PO QID PRN (Reason: Anxiety) hydroxyzine pamoate 25 mg Capsule 25 mg PO QID PRN (Reason: Anxiety) cyclobenzaprine 5 mg Tablet 5 mg PO TID PRN (Reason: muscle spasms) lactulose 20 gram/30 mL Solution 10 g PO QID 30 Days Qty: 1800 0RF cefdinir 300 mg capsule 300 mg PO Q12H 3 Days Qty: 6 0RF prednisone 20 mg tablet 20 mg PO BID Qty: 10 0RF Referrals Follow up/Referrals: Abigail Steiner [Referring] - See instructions Clinical Impressions Clinical Impression: UTI (urinary tract infection), Hypothyroidism Instructions Patient Instructions: DI for Urinary Tract Infection (UTI), DI for Urinary Tract Infection in Children Discharge ED Provider: Joseph (ED)Leonardo Female Urogenital HPI General Chief complaint: Urogenital-Female Stated complaint: blood in urine Time Seen by Provider: 08/07/22 22:59 Mode of Arrival: EMS Source of Information: Patient, EMS and Medical Record Limitations: No Limitations Description of Symptoms (Recalled from ER Triage Doc. by RN): presents with cc of acute on chronic hematuria, blisters/ raw areas in mouth that she reports has been ongoing but worsening over the past few days. According to EMS a medication change may be involved with her symptoms per the detention tech's report History of Present Illness HPI Narrative: sent from [facility] for eval of hematuria - pt w/o specific c/o - has hx of raw tongue Complaint: other (hematuria ) Onset (ago): hour(s) Severity: moderate Duration: intermittent Urinary Symptoms: hematuria : No Associated symptoms: denies other symptoms Related Data Home Medications Medication Instructions Recorded Confirmed amitriptyline 50 mg tablet 50 mg PO HS antidepressant 05/02/22 05/02/22 carvedilol 3.125 mg tablet 3.125 mg PO BID High blood pressure 05/02/22 05/02/22 duloxetine 30 mg capsule,delayed 30 mg PO DAILY antidepressant 05/02/22 05/02/22 release ferrous sulfate 324 mg (65 mg 324 mg PO DAILY Supplement 05/02/22 05/02/22 iron) tablet,delayed release levothyroxine 100 mcg tablet 100 mcg PO DAILY hypothyroidism 05/02/22 05/02/22 lisinopril 10 mg tablet 10 mg PO DAILY High blood pressure 05/02/22 05/02/22 pantoprazole 40 mg tablet,delayed 40 mg PO DAILY acid reflux 05/02/22 05/02/22 release rifaximin 550 mg tablet 550 mg PO BID diarrhea 05/02/22 05/02/22 acetaminophen 325 mg tablet 325 mg PO QID PRN Anxiety 05/03/22 05/03/22 cyclobenzaprine 5 mg tablet 5 mg PO TID PRN muscle spasms 05/03/22 05/03/22 hydroxyzine pamoate 25 mg capsule 25 mg PO QID PRN Anxiety 05/03/22 05/03/22 melatonin 5 mg tablet 5 mg PO HS PRN Sleep 05/03/22 05/03/22 Previous Rx's Medication Instructions Recorded cefdinir 300 mg capsule 300 mg PO Q12H 3 days #6 caps 05/05/22 lactulose 20 gram/30 mL oral 10 g (15 mL) PO QID 30 days #1,800 05/05/22 solution mL prednisone 20 mg tablet 20 mg PO BID #10
--- NOTE | 2022-08-07 23:14 | PC.NURSE ---
Attempted to call [facility], no answer 4x. Called [facility] and they also do not have a transport until 0600. Called [facility] to see if they can have an officer take her back.
[2022-08-07 23:18] VITALS: BP 131/70; PULSE 78; RESP 17; TEMP 36.8; O2SAT 98
[2022-08-07 23:22] LABS: Magnesium 2.2 mg/dl (1.6-2.3)
[2022-08-07 23:40] LABS: T4 (Thyroxine) 5.2 ug/dl (5.53-11.0)
[2022-08-07 23:42] LABS: 25-OH Vitamin D, Total < 12.8 ng/mL (30-100)
[2022-08-07 23:54] LABS: Thyroid Stimulating Hormone 0.93 uIU/mL (0.465-4.68)
[2022-08-08 01:23] LABS: Vitamin B12 753 pg/mL (239-931)
[2022-08-10 16:33] LABS: Vitamin B6 3.6 ug/L (3.4-65.2)
== END 2022-08-07 23:27 | disposition home or self-care (01) ==
PROVIDERS: Emergency Provider Emergency Medicine; PCP Emergency Medicine
DX: N39.0 Urinary tract infection, site not specified (principal); R31.9 Hematuria, unspecified
CPT/HCPCS: 80053; 81001; 82306; 82607; 83735; 84207; 84425; 84436; 84443; 85025; 87086; 87088; 87186; 96360; 96374; 99284; 99285; J0696

== ENCOUNTER 2022-10-28 00:17 | Emergency (ER) | payer BC, SELFPAY ==
[2022-10-28 00:15] VITALS: BP 134/50; PULSE 68; RESP 18; O2SAT 97
--- NOTE | 2022-10-28 00:16 | XR_ITS ---
PROCEDURE INFORMATION: Exam: XR Right Foot Exam date and time: 10/28/2022 12:29 AM Age: 52 years old Clinical indication: Pain; Foot; Right; Additional info: R great toe pain TECHNIQUE: Imaging protocol: Radiologic exam of the right foot. Views: 3 or more views. COMPARISON: No relevant prior studies available. FINDINGS: Bones/joints: Normal. No acute fracture or dislocation. Soft tissues: Normal. IMPRESSION: No acute findings.
--- NOTE | 2022-10-28 00:16 | CT_ITS ---
PROCEDURE INFORMATION: Exam: CT Head Without Contrast Exam date and time: 10/28/2022 12:27 AM Age: 52 years old Clinical indication: Pain; Headache; Additional info: Fall, no loc, headache TECHNIQUE: Imaging protocol: Computed tomography of the head without contrast. Radiation optimization: All CT scans at this facility use at least one of these dose optimization techniques: automated exposure control; mA and/or kV adjustment per patient size (includes targeted exams where dose is matched to clinical indication); or iterative reconstruction. REPORTING DATA: Count of CT and Cardiac NM exams in prior 12 months: This patient has received 10 known [address]s and 0 known cardiac nuclear medicine studies in the 12 months prior to the current study. COMPARISON: CT HEAD/BRAIN WO CON 06/17/2022 6:39 PM FINDINGS: Brain: No acute intracranial hemorrhage, acute large territory infarct, or obvious mass lesion. Cerebral ventricles: No ventriculomegaly. Paranasal sinuses: Chronic sinusitis. No obvious air-fluid levels. Mastoid air cells: Visualized mastoid air cells are well aerated. Bones/joints: Unremarkable. No acute fracture. Soft tissues: Unremarkable. IMPRESSION: No acute intracranial abnormality.
--- NOTE | 2022-10-28 00:16 | CT_ITS ---
PROCEDURE INFORMATION: Exam: CT Cervical Spine Without Contrast Exam date and time: 10/28/2022 12:29 AM Age: 52 years old Clinical indication: Neck pain; Additional info: Fall, no loc, headache TECHNIQUE: Imaging protocol: Computed tomography of the cervical spine without contrast. Radiation optimization: All CT scans at this facility use at least one of these dose optimization techniques: automated exposure control; mA and/or kV adjustment per patient size (includes targeted exams where dose is matched to clinical indication); or iterative reconstruction. REPORTING DATA: Count of CT and Cardiac NM exams in prior 12 months: This patient has received 10 known CTs and 0 known cardiac nuclear medicine studies in the 12 months prior to the current study. COMPARISON: CT CERVICAL SPINE WO CON 06/17/2022 6:41 PM FINDINGS: Bones/joints: No acute fracture or subluxation. Mild chronic degenerative changes without severe spinal stenosis. Lungs: Lung apices are normal. Soft tissues: Unremarkable. IMPRESSION: No acute findings.
[2022-10-28 00:17] VITALS: BP 134/50; PULSE 62; RESP 16; TEMP 36.9; O2SAT 98; BMI 43.4
--- NOTE | 2022-10-28 00:18 | HMH.EDGENADL ---
Discharge Plan Disposition Patient Disposition: Home, Self-Care Condition: Good Chief Complaint: Fall Prescriptions Prescriptions: No Action amlodipine 5 mg tablet See Rx Instructions .ROUTE .COMPLEX Qty: 30 11RF Dose Instruction: TAKE 1 TABLET BY MOUTH AT BEDTIME Rx Instructions: TAKE 1 TABLET BY MOUTH AT BEDTIME pyridoxine (vitamin B6) 50 mg tablet See Rx Instructions .ROUTE .COMPLEX Qty: 30 11RF Dose Instruction: GIVE 1 TABLET BY MOUTH ONCE DAILY Rx Instructions: GIVE 1 TABLET BY MOUTH ONCE DAILY amitriptyline 50 mg Tablet 50 mg PO HS carvedilol 3.125 mg Tablet 3.125 mg PO BID Rx Instructions: must administer with a meal/food levothyroxine 100 mcg Tablet 100 mcg PO DAILY pantoprazole 40 mg Tablet,Delayed Release (Dr/Ec) 40 mg PO DAILY lisinopril 10 mg Tablet 10 mg PO DAILY duloxetine 30 mg Capsule,Delayed Release(Dr/Ec) 30 mg PO DAILY ferrous sulfate 324 mg (65 mg iron) Tablet,Delayed Release (Dr/Ec) 324 mg PO DAILY Rx Instructions: every other day rifaximin 550 mg Tablet 550 mg PO BID melatonin 5 mg tablet 5 mg PO HS PRN (Reason: Sleep) acetaminophen 325 mg Tablet 325 mg PO QID PRN (Reason: Anxiety) hydroxyzine pamoate 25 mg Capsule 25 mg PO QID PRN (Reason: Anxiety) cyclobenzaprine 5 mg Tablet 5 mg PO TID PRN (Reason: muscle spasms) lactulose 20 gram/30 mL Solution 10 g PO QID 30 Days Qty: 1800 0RF cefdinir 300 mg capsule 300 mg PO Q12H 3 Days Qty: 6 0RF prednisone 20 mg tablet 20 mg PO BID Qty: 10 0RF cephalexin [cephalexin] 500 mg capsule 500 mg PO TID Qty: 21 0RF Referrals Follow up/Referrals: Leonardo Ruiz MD [Primary Care Provider] - See instructions Activity Restrictions/Add. Instructions Additional Instructions/Restrictions: At this time it was felt you are safe to be discharged home. If new or worsening symptoms please do not hesitate to return to the emergency department. Clinical Impressions Clinical Impression: Fall, Great toe pain Discharge ED Provider: Umesh Harley General Adult HPI General Chief complaint: Fall Stated complaint: Fall Time Seen by Provider: 10/28/22 00:18 History of Present Illness HPI narrative: Patient is a 52-year-old female with no pertinent past medical history who presents emergency department for evaluation of traumatic injury sustained in a fall. Patient states that she tripped on her right ankle and fell forward striking her face with no loss of consciousness. Patient is complaining of headache, neck pain, right great toe pain. Patient was ambulatory on scene, had no initial complaints however now is feeling the pain described above. Patient was noticed to have a small cut on her right palm which was covered with a Band-Aid prior to arrival. No other acute complaints at this time. Related Data Home Medications Medication Instructions Recorded Confirmed amitriptyline 50 mg tablet 50 mg PO HS antidepressant 05/02/22 05/02/22 carvedilol 3.125 mg tablet 3.125 mg PO BID High blood pressure 05/02/22 05/02/22 duloxetine 30 mg capsule,delayed 30 mg PO DAILY antidepressant 05/02/22 05/02/22 release ferrous sulfate 324 mg (65 mg 324 mg PO DAILY Supplement 05/02/22 05/02/22 iron) tablet,delayed release levothyroxine 100 mcg tablet 100 mcg PO DAILY hypothyroidism 05/02/22 05/02/22 lisinopril 10 mg tablet 10 mg PO DAILY High blood pressure 05/02/22 05/02/22 pantoprazole 40 mg tablet,delayed 40 mg PO DAILY acid reflux 05/02/22 05/02/22 release rifaximin 550 mg tablet 550 mg PO BID diarrhea 05/02/22 05/02/22 acetaminophen 325 mg tablet 325 mg PO QID PRN Anxiety 05/03/22 05/03/22 cyclobenzaprine 5 mg tablet 5 mg PO TID PRN muscle spasms 05/03/22 05/03/22 hydroxyzine pamoate 25 mg capsule 25 mg PO QID PRN Anxiety 05/03/22 05/03/22 melatonin 5 mg tablet 5 mg PO HS PRN Sleep 05/03/22 05/03/22 Previo
--- NOTE | 2022-10-28 00:22 | PC.NURSE ---
C-Collar applied per MD request due to pt c/o tenderness across her upper shoulder and neck pain
--- NOTE | 2022-10-28 00:22 | PC.NURSE ---
Pt to rad
--- NOTE | 2022-10-28 01:03 | PC.NURSE ---
Pt resting in bed and updated on POC. no new needs
[2022-10-28 02:31] VITALS: BP 128/60; PULSE 77; RESP 18; TEMP 36.6
== END 2022-10-28 02:33 | disposition home or self-care (01) ==
PROVIDERS: Emergency Provider Emergency Medicine; PCP Emergency Medicine
DX: M79.676 Pain in unspecified toe(s) (principal); E03.9 Hypothyroidism, unspecified; I10 Essential (primary) hypertension; G47.33 Obstructive sleep apnea (adult) (pediatric); F41.9 Anxiety disorder, unspecified; W01.0XXA Fall on same level from slipping, tripping and stumbling without subsequent striking against object, initial encounter
CPT/HCPCS: 70450; 72125; 73630; 99284

== ENCOUNTER 2022-12-01 15:54 | Emergency (ER) | payer BC, SELFPAY ==
[2022-12-01 15:55] VITALS: BP 135/76; PULSE 73; RESP 16; TEMP 36.8; O2SAT 98; BMI 47.2
[2022-12-01 16:01] VITALS: BP 128/68; PULSE 67; RESP 18; O2SAT 95
--- NOTE | 2022-12-01 16:24 | CT_ITS ---
PROCEDURE INFORMATION: Exam: CT Head Without Contrast Exam date and time: 12/01/2022 4:49 PM Age: 52 years old Clinical indication: Injury or trauma; Fall; Blunt trauma (contusions or hematomas); Additional info: Fall, ARGUETA TECHNIQUE: Imaging protocol: Computed tomography of the head without contrast. Radiation optimization: All CT scans at this facility use at least one of these dose optimization techniques: automated exposure control; mA and/or kV adjustment per patient size (includes targeted exams where dose is matched to clinical indication); or iterative reconstruction. REPORTING DATA: Count of CT and Cardiac NM exams in prior 12 months: This patient has received 12 known CTs and 0 known cardiac nuclear medicine studies in the 12 months prior to the current study. COMPARISON: CT HEAD/BRAIN WO CON 10/28/2022 12:27 AM FINDINGS: Brain: Prominent sulci. Patchy hypodensity of the cerebral white matter which are nonspecific but likely secondary to microangiopathic changes. Cerebral ventricles: The ventricles are prominent secondary to diffuse volume loss/atrophy. Paranasal sinuses: Moderate opacification of the maxillary sinuses and ethmoid air cells and mild mucoperiosteal thickening remainder of paranasal sinuses. Mastoid air cells: Visualized mastoid air cells are well aerated. Bones/joints: Unremarkable. No acute fracture. Soft tissues: Unremarkable. IMPRESSION: 1. Moderate opacification of the maxillary sinuses and ethmoid air cells and mild mucoperiosteal thickening remainder of paranasal sinuses. 2. Chronic age related changes but no evidence of acute intracranial pathology.
--- NOTE | 2022-12-01 16:24 | CT_ITS ---
PROCEDURE INFORMATION: Exam: CT Cervical Spine Without Contrast Exam date and time: 12/01/2022 4:51 PM Age: 52 years old Clinical indication: Injury or trauma; Fall; Blunt trauma; Additional info: Fall, midline c spine pain TECHNIQUE: Imaging protocol: Computed tomography of the cervical spine without contrast. Radiation optimization: All CT scans at this facility use at least one of these dose optimization techniques: automated exposure control; mA and/or kV adjustment per patient size (includes targeted exams where dose is matched to clinical indication); or iterative reconstruction. REPORTING DATA: Count of CT and Cardiac NM exams in prior 12 months: This patient has received 12 known CTs and 0 known cardiac nuclear medicine studies in the 12 months prior to the current study. COMPARISON: CT CERVICAL SPINE WO CON 10/28/2022 12:29 AM FINDINGS: Bones/joints: No acute fracture. Normal alignment. No significant disc bulge or herniation. No severe spinal canal stenosis. No significant neural foraminal narrowing. Lungs: Lung apices are normal. Soft tissues: Unremarkable. IMPRESSION: No acute findings involving the cervical spine.
--- NOTE | 2022-12-01 16:44 | HMH.EDGENADL ---
Discharge Plan Disposition Patient Disposition: Home, Self-Care Prescriptions Prescriptions: No Action amlodipine 5 mg tablet See Rx Instructions .ROUTE .COMPLEX Qty: 30 11RF Dose Instruction: TAKE 1 TABLET BY MOUTH AT BEDTIME Rx Instructions: TAKE 1 TABLET BY MOUTH AT BEDTIME pyridoxine (vitamin B6) 50 mg tablet See Rx Instructions .ROUTE .COMPLEX Qty: 30 11RF Dose Instruction: GIVE 1 TABLET BY MOUTH ONCE DAILY Rx Instructions: GIVE 1 TABLET BY MOUTH ONCE DAILY amitriptyline 50 mg Tablet 50 mg PO HS carvedilol 3.125 mg Tablet 3.125 mg PO BID Rx Instructions: must administer with a meal/food levothyroxine 100 mcg Tablet 100 mcg PO DAILY pantoprazole 40 mg Tablet,Delayed Release (Dr/Ec) 40 mg PO DAILY lisinopril 10 mg Tablet 10 mg PO DAILY duloxetine 30 mg Capsule,Delayed Release(Dr/Ec) 30 mg PO DAILY ferrous sulfate 324 mg (65 mg iron) Tablet,Delayed Release (Dr/Ec) 324 mg PO DAILY Rx Instructions: every other day rifaximin 550 mg Tablet 550 mg PO BID melatonin 5 mg tablet 5 mg PO HS PRN (Reason: Sleep) acetaminophen 325 mg Tablet 325 mg PO QID PRN (Reason: Anxiety) hydroxyzine pamoate 25 mg Capsule 25 mg PO QID PRN (Reason: Anxiety) cyclobenzaprine 5 mg Tablet 5 mg PO TID PRN (Reason: muscle spasms) lactulose 20 gram/30 mL Solution 10 g PO QID 30 Days Qty: 1800 0RF cefdinir 300 mg capsule 300 mg PO Q12H 3 Days Qty: 6 0RF prednisone 20 mg tablet 20 mg PO BID Qty: 10 0RF cephalexin [cephalexin] 500 mg capsule 500 mg PO TID Qty: 21 0RF Referrals Follow up/Referrals: Leonardo Ruiz MD [Primary Care Provider] - See instructions Activity Restrictions/Add. Instructions Additional Instructions/Restrictions: Call your family doctor to establish care for this visit to the emergency department and schedule follow-up within 48 hours to ensure improvement. If you have any worsening of your condition or any other concerning signs or symptoms, return to the emergency department or your primary care doctor for further evaluation. Clinical Impressions Clinical Impression: Acute neck pain Headache Qualifiers: Headache type: unspecified Headache chronicity pattern: acute headache Intractability: not intractable Qualified Code(s): R51.9 - Headache, unspecified Discharge ED Provider: Micheal Leon General Adult HPI General Chief complaint: Fall Stated complaint: fall Time Seen by Provider: 12/01/22 16:04 Mode of Arrival: EMS Source of Information: Patient Limitations: No Limitations Description of Symptoms (Recalled from ER Triage Doc. by RN): Presents to ED with complaints of headache after hitting head and left shoulder pain secondary to a fall. -LOC and blood thinner use. History of Present Illness HPI narrative: This is a 52-year-old female with no relevant medical history presenting with headache. Patient states that she was walking and tripped over her own feet when she hit the back of her head on a nearby wall. No loss of consciousness. Patient states that she is having mild headache in her posterior scalp and mild neck pain. No neurologic deficits, weakness, chest pain, shortness of breath, preceding symptoms. Mechanical fall from standing without complication Related Data Home Medications Medication Instructions Recorded Confirmed amitriptyline 50 mg tablet 50 mg PO HS antidepressant 05/02/22 05/02/22 carvedilol 3.125 mg tablet 3.125 mg PO BID High blood pressure 05/02/22 05/02/22 duloxetine 30 mg capsule,delayed 30 mg PO DAILY antidepressant 05/02/22 05/02/22 release ferrous sulfate 324 mg (65 mg 324 mg PO DAILY Supplement 05/02/22 05/02/22 iron) tablet,delayed release levothyroxine 100 mcg tablet 100 mcg PO DAILY hypothyroidism 05/02/22 05/02/22 lisinopril 10 mg tablet 10 mg PO DAILY High blood pressure 05/02/22 05/02/22 pantoprazole 40 mg table
[2022-12-01 17:45] VITALS: BP 134/79; PULSE 70; RESP 18; TEMP 36.6; O2SAT 95
--- NOTE | 2022-12-01 18:01 | PC.NURSE ---
placed call to [facility] and don for pt transport, don is going to try and get hold of [facility]
--- NOTE | 2022-12-01 18:15 | PC.NURSE ---
[facility] to send someone to get pt
== END 2022-12-01 18:38 | disposition home or self-care (01) ==
PROVIDERS: Emergency Provider Emergency Medicine; PCP Emergency Medicine
DX: R51.9 Headache, unspecified (principal); M54.2 Cervicalgia; M25.512 Pain in left shoulder; W01.198A Fall on same level from slipping, tripping and stumbling with subsequent striking against other object, initial encounter; K74.60 Unspecified cirrhosis of liver; G47.33 Obstructive sleep apnea (adult) (pediatric); R01.1 Cardiac murmur, unspecified; F41.9 Anxiety disorder, unspecified; E03.9 Hypothyroidism, unspecified
CPT/HCPCS: 70450; 72125; 96374; 99285

== ENCOUNTER 2023-01-02 22:17 | Emergency (ER) | payer BC, SELFPAY ==
[2023-01-02 22:17] VITALS: BP 155/83; PULSE 65; RESP 16; TEMP 37; O2SAT 96; BMI 34.0
--- NOTE | 2023-01-02 23:25 | CT_ITS ---
PROCEDURE INFORMATION: Exam: CT Cervical Spine Without Contrast Exam date and time: 01/02/2023 11:43 PM Age: 52 years old Clinical indication: Injury or trauma; Fall; Blunt trauma; Additional info: Fall neck pain TECHNIQUE: Imaging protocol: Computed tomography of the cervical spine without contrast. Radiation optimization: All CT scans at this facility use at least one of these dose optimization techniques: automated exposure control; mA and/or kV adjustment per patient size (includes targeted exams where dose is matched to clinical indication); or iterative reconstruction. REPORTING DATA: Count of CT and Cardiac NM exams in prior 12 months: This patient has received 14 known CTs and 0 known cardiac nuclear medicine studies in the 12 months prior to the current study. COMPARISON: CT CERVICAL SPINE WO CON 08/05/2022 16:51 FINDINGS: Bones/joints: Straightening of the curvature of the cervical spine is likely positional. Lungs: Lung apices are normal. Soft tissues: Unremarkable. IMPRESSION: No acute fracture or malalignment of the cervical spine.
--- NOTE | 2023-01-02 23:26 | CT_ITS ---
PROCEDURE INFORMATION: Exam: CT Head Without Contrast Exam date and time: 01/02/2023 11:43 PM Age: 52 years old Clinical indication: Injury or trauma; Fall; Blunt trauma (contusions or hematomas); Additional info: Fall neck pain TECHNIQUE: Imaging protocol: Computed tomography of the head without contrast. Radiation optimization: All CT scans at this facility use at least one of these dose optimization techniques: automated exposure control; mA and/or kV adjustment per patient size (includes targeted exams where dose is matched to clinical indication); or iterative reconstruction. REPORTING DATA: Count of CT and Cardiac NM exams in prior 12 months: This patient has received 14 known CTs and 0 known cardiac nuclear medicine studies in the 12 months prior to the current study. COMPARISON: CT HEAD/BRAIN WO CON 08/05/2022 16:49 FINDINGS: Brain: Bilateral basal ganglia calcifications. Cerebral ventricles: No ventriculomegaly. Paranasal sinuses: Paranasal sinuses are occluded, worse compared to prior study. Mastoid air cells: Visualized mastoid air cells are well aerated. Bones/joints: Unremarkable. No acute fracture. Soft tissues: Hematoma overlying the right frontal bone. IMPRESSION: 1. No acute intracranial findings. 2. Paranasal sinuses are occluded, worse compared to prior study. Please correlate for evidence of acute versus chronic sinusitis.
--- NOTE | 2023-01-02 23:28 | HMH.EDGENADL ---
Discharge Plan Disposition Patient Disposition: Home, Self-Care Prescriptions Prescriptions: No Action amlodipine 5 mg tablet See Rx Instructions .ROUTE .COMPLEX Qty: 30 11RF Dose Instruction: TAKE 1 TABLET BY MOUTH AT BEDTIME Rx Instructions: TAKE 1 TABLET BY MOUTH AT BEDTIME pyridoxine (vitamin B6) 50 mg tablet See Rx Instructions .ROUTE .COMPLEX Qty: 30 11RF Dose Instruction: GIVE 1 TABLET BY MOUTH ONCE DAILY Rx Instructions: GIVE 1 TABLET BY MOUTH ONCE DAILY amitriptyline 50 mg Tablet 50 mg PO HS carvedilol 3.125 mg Tablet 3.125 mg PO BID Rx Instructions: must administer with a meal/food levothyroxine 100 mcg Tablet 100 mcg PO DAILY pantoprazole 40 mg Tablet,Delayed Release (Dr/Ec) 40 mg PO DAILY lisinopril 10 mg Tablet 10 mg PO DAILY duloxetine 30 mg Capsule,Delayed Release(Dr/Ec) 30 mg PO DAILY ferrous sulfate 324 mg (65 mg iron) Tablet,Delayed Release (Dr/Ec) 324 mg PO DAILY Rx Instructions: every other day rifaximin 550 mg Tablet 550 mg PO BID melatonin 5 mg tablet 5 mg PO HS PRN (Reason: Sleep) acetaminophen 325 mg Tablet 325 mg PO QID PRN (Reason: Anxiety) hydroxyzine pamoate 25 mg Capsule 25 mg PO QID PRN (Reason: Anxiety) cyclobenzaprine 5 mg Tablet 5 mg PO TID PRN (Reason: muscle spasms) lactulose 20 gram/30 mL Solution 10 g PO QID 30 Days Qty: 1800 0RF cefdinir 300 mg capsule 300 mg PO Q12H 3 Days Qty: 6 0RF prednisone 20 mg tablet 20 mg PO BID Qty: 10 0RF cephalexin [cephalexin] 500 mg capsule 500 mg PO TID Qty: 21 0RF Referrals Follow up/Referrals: Leonardo Ruiz MD [Primary Care Provider] - See instructions Clinical Impressions Clinical Impression: Fall Qualifiers: Encounter type: initial encounter Qualified Code(s): W19.XXXA - Unspecified fall, initial encounter Abrasion head Qualifiers: Encounter type: initial encounter Qualified Code(s): S00.91XA - Abrasion of unspecified part of head, initial encounter Discharge ED Provider: Federico Benjamin Adult [facility] General Chief complaint: Head Injury Stated complaint: fall Time Seen by Provider: 01/02/23 23:14 Mode of Arrival: Ambulatory Source of Information: Patient and EMS Limitations: No Limitations Description of Symptoms (Recalled from ER Triage Doc. by RN): EMS reports pt was walking up stairs and tripped and her head hit the side of bulding. pt c/o headache and has a small abrasion rt side of head. History of Present Illness HPI narrative: 52-year-old female presents after slipping while walking up the stairs and striking her head on the concrete. She denies that she fell all the way to the ground but rather struck her head on the wall. She denies loss of consciousness. She did not fall or injure any of her extremities. She reports mild headache. Related Data Home Medications Medication Instructions Recorded Confirmed amitriptyline 50 mg tablet 50 mg PO HS antidepressant 05/02/22 05/02/22 carvedilol 3.125 mg tablet 3.125 mg PO BID High blood pressure 05/02/22 05/02/22 duloxetine 30 mg capsule,delayed 30 mg PO DAILY antidepressant 05/02/22 05/02/22 release ferrous sulfate 324 mg (65 mg 324 mg PO DAILY Supplement 05/02/22 05/02/22 iron) tablet,delayed release levothyroxine 100 mcg tablet 100 mcg PO DAILY hypothyroidism 05/02/22 05/02/22 lisinopril 10 mg tablet 10 mg PO DAILY High blood pressure 05/02/22 05/02/22 pantoprazole 40 mg tablet,delayed 40 mg PO DAILY acid reflux 05/02/22 05/02/22 release rifaximin 550 mg tablet 550 mg PO BID diarrhea 05/02/22 05/02/22 acetaminophen 325 mg tablet 325 mg PO QID PRN Anxiety 05/03/22 05/03/22 cyclobenzaprine 5 mg tablet 5 mg PO TID PRN muscle spasms 05/03/22 05/03/22 hydroxyzine pamoate 25 mg capsule 25 mg PO QID PRN Anxiety 05/03/22 05/03/22 melatonin 5 mg tablet 5 mg PO HS PRN Sleep 05/03/22 05/03/22 Previous Rx's Me
[2023-01-03 00:48] VITALS: BP 148/81; PULSE 67; RESP 16; TEMP 37; O2SAT 96
--- NOTE | 2023-01-03 00:51 | PC.NURSE ---
Nelda called dispatch to request an officer come and take the pt back to [facility] as she is D/C'd. CR
== END 2023-01-03 01:02 | disposition home or self-care (01) ==
PROVIDERS: Emergency Provider Emergency Medicine; PCP Emergency Medicine
DX: W10.8XXA Fall (on) (from) other stairs and steps, initial encounter; S00.91XA Abrasion of unspecified part of head, initial encounter; K74.60 Unspecified cirrhosis of liver; F41.9 Anxiety disorder, unspecified; R01.1 Cardiac murmur, unspecified; E03.9 Hypothyroidism, unspecified; G47.33 Obstructive sleep apnea (adult) (pediatric); Z23 Encounter for immunization
CPT/HCPCS: 70450; 72125; 90715; 96372; 99285

== ENCOUNTER 2023-02-20 10:04 | Inpatient (IN) | payer BC, SELFPAY ==
[2023-02-20] VITALS (16 sets, daily range): BP systolic 113–156; BP diastolic 56–98; PULSE 80–111; RESP 16–29; TEMP 36.9–39.4; O2SAT 86–97; BMI 38.6; BMI 34.0
--- NOTE | 2023-02-20 09:44 | ECG_ITS ---
APPROVED REPORT Exam: Resting ECG HR:111 bpm ECG Measurements Heart Rate 111 AXES NH 161 P 141 QRSd 101 QRS 136 QT 316 T 74 QTc 381 Conclusion SINUS TACHYCARDIA ARM LEADS REVERSED [INVERTED P AND QRS IN I] ABNORMAL RHYTHM ECG UNCONFIRMED REPORT Electronically signed by : Garo Best MD 02/22/2023 21:32:36
--- NOTE | 2023-02-20 09:49 | XR_ITS ---
FINAL REPORT CLINICAL HISTORY: fall, ams FINDINGS: The heart size is normal. The mediastinum is within normal limits. There are left greater than right bibasilar opacities. There is no pleural effusion. There is no pneumothorax. The bony thorax is intact. IMPRESSION: Left greater than right bibasilar opacities could represent atelectasis or pneumonia. Reviewed, Interpreted and Dictated by Cristian Coleman III, MD Transcribed by Gómez Maria Authenticated and [facility]
--- NOTE | 2023-02-20 09:49 | CT_ITS ---
FINAL REPORT CLINICAL HISTORY: fall, ams FINDINGS: CT CERVICAL SPINE Axial CT images were performed through the cervical spine. Coronal and sagittal reformats were submitted and reviewed. This study was performed with techniques to keep radiation doses as low as reasonably achievable (ALARA). Individualized dose reduction techniques using automated exposure control or adjustment of mA and/or kV according to the patient's size were employed. FINDINGS: There is a nonstandard positioning. There is no acute fracture or subluxation. The vertebral alignment is normal. The prevertebral soft tissues are unremarkable. No significant spinal or neural foraminal canal stenosis is seen. The facets are normally aligned. Limited images of the lung apices are unremarkable. IMPRESSION: No acute fracture. Reviewed, Interpreted and Dictated by Cristian Coleman III, MD Transcribed by Gómez Maria Authenticated and [facility]
--- NOTE | 2023-02-20 09:49 | CT_ITS ---
FINAL REPORT CLINICAL HISTORY: fall, ams COMPARISON: December 2022 FINDINGS: Axial images of the head were obtained without contrast. Coronal reformatted images were also obtained. This study was performed with techniques to keep radiation doses as low as reasonably achievable (ALARA). Individualized dose reduction techniques using automated exposure control or adjustment of mA and/or kV according to the patient's size were employed. There is suboptimal positioning. There is generalized age-appropriate atrophy. Periventricular low-attenuation areas are seen consistent with mild chronic ischemic changes. There is no evidence of intracranial hemorrhage or mass. There is no evidence of acute infarct. There is no evidence of shift of the midline structures. No skull abnormality is seen on the bone window images. There is diffuse sinus opacification. IMPRESSION: Atrophy and mild periventricular chronic ischemic changes. No acute intracranial abnormality identified. Reviewed, Interpreted and Dictated by Cristian Coleman III, MD Transcribed by Gómez Maria Authenticated and [facility]
--- NOTE | 2023-02-20 09:49 | XR_ITS ---
FINAL REPORT CLINICAL HISTORY: fall, ams FINDINGS: AP PELVIS: A single view of the pelvis was obtained. There is no acute fracture or dislocation. Visualized joint spaces are normally aligned. There is moderate retained stool. Postoperative changes are seen in the abdomen. IMPRESSION: No acute bony abnormality. Reviewed, Interpreted and Dictated by Cristian Coleman III, MD Transcribed by Gómez Maria Authenticated and [facility]
--- NOTE | 2023-02-20 09:59 | PC.NURSE ---
Blue band placed on patient after blood cultures x 2 were drawn
--- NOTE | 2023-02-20 10:05 | PC.NURSE ---
Allergy and Fall bracelets placed on patient
[2023-02-20 10:15] LABS: POC Glucose,Bedside 81 (70-110)
[2023-02-20 10:21] LABS: Microscopic, Urine URINE MICROSCOPIC (MICROSCOPIC)
--- NOTE | 2023-02-20 10:21 | HMH.EDGENADL ---
Discharge Plan Disposition Patient Disposition: Admitted Clinical Impressions Clinical Impression: Cellulitis Sepsis Qualifiers: Sepsis type: sepsis due to unspecified organism Sepsis acute organ dysfunction status: with acute organ dysfunction Severe sepsis acute organ dysfunction type: encephalopathy Respiratory failure Qualifiers: Chronicity: acute Respiratory failure complication: hypoxia Qualified Code(s): J96.01 - Acute respiratory failure with hypoxia Discharge ED Provider: Federico Benjamin Adult HPI General Chief complaint: Altered Mental Status Stated complaint: fall Time Seen by Provider: 02/20/23 10:04 History of Present Illness HPI narrative: 52-year-old female, resident at [facility], history of cirrhosis, psychiatric comorbidities on amitriptyline and duloxetine, hypothyroidism, presents after being found down on the ground. She was found by her roommate, unknown downtime. Patient is alert but not oriented upon EMS arrival. She reports only that she fell, denies any specific pain. She is unable to provide any significant past medical history or history of events. Patient febrile to 103 with EMS. Related Data Home Medications Medication Instructions Recorded Confirmed amitriptyline 50 mg tablet 50 mg PO HS antidepressant 05/02/22 02/20/23 carvedilol 3.125 mg tablet 3.125 mg PO BID High blood pressure 05/02/22 02/20/23 duloxetine 30 mg capsule,delayed 30 mg PO DAILY antidepressant 05/02/22 02/20/23 release ferrous sulfate 324 mg (65 mg 324 mg PO DAILY Supplement 05/02/22 02/20/23 iron) tablet,delayed release levothyroxine 100 mcg tablet 100 mcg PO DAILY hypothyroidism 05/02/22 02/20/23 pantoprazole 40 mg tablet,delayed 40 mg PO DAILY acid reflux 05/02/22 02/20/23 release melatonin 5 mg tablet 5 mg PO HS PRN Sleep 05/03/22 02/20/23 oxcarbazepine 300 mg tablet 300 mg PO DAILY 02/20/23 02/20/23 Previous Rx's Medication Instructions Recorded amlodipine 5 mg tablet See Rx Instructions .Route 08/03/22 .COMPLEX #30 ea Allergies Allergy/AdvReac Type Severity Reaction Status Date / Time amoxicillin [From Augmentin] Allergy Verified 10/28/22 00:29 clavulanic acid Allergy Verified 10/28/22 00:29 [From Augmentin] oxycodone Allergy Verified 10/28/22 00:29 PFSH [facility] Disclaimer: The information contained in this section may have been updated after the patient was seen, as this information can be updated by other users. Medical History Anxiety Cirrhosis of liver Cognitive impairment Encephalopathy Hypothyroid Murmur, heart Obstructive sleep apnea Surgical History H/O section H/O hernia repair Hx of appendectomy Social History (Updated 02/20/23 @ 15:19 by Malcolm Heller RN) Smoking Status: Never smoker alcohol intake: never current occupational status: disabled Travel in the last 8 weeks: None ROS Obtained: Yes unobtainable due to mental status Physical Exam General General appearance: other (drousy but arousable) Head Head exam: atraumatic and normocephalic Eye Eye exam: Present normal appearance, PERRL and EOMI ENT ENT exam: Present normal oropharynx and normal external ear exam Neck Neck exam: Present normal inspection and full ROM; Absent tenderness or meningismus Chest Chest inspection: Present normal inspection and symmetric chest wall rise; Absent tenderness Respiratory Respiratory exam: Present normal lung sounds bilaterally; Absent respiratory distress Cardiovascular Cardiovascular exam: Present regular rate and normal rhythm Abdominal Exam Abdominal exam: Present soft; Absent distention, tenderness or guarding Comment: large area of erythema and induration on lower abd wall Extremities Exam Extremities exam: Present other (no pitting edema, no focal tenderness, no obvious trauma) Back Exam Back exam: Present norm
[2023-02-20 10:23] LABS: Basophils % 0.3 % (0.1-2.0); Eosinophils % 0.5 % (0.1-12.0); Hematocrit 39.3 % (37.0-47.0); Hemoglobin 13.5 g/dL (12.2-16.2); Lymphocytes # 0.6 K/mm3 (0.7-4.5); Lymphocytes % 9.2 % (10-50); Mean Corpuscular HGB Conc 34.3 g/dL (31.8-35.4); Mean Corpuscular Hemoglobin 33.8 pg (27.0-31.2); Mean Corpuscular Volume 98.5 fl (81-99); Mean Platelet Volume 8.2 fl (7.4-10.4); Monocytes # 0.3 K/mm3 (0.1-1.0); Monocytes % 5.3 % (1.7-9.3); Neutrophils # 5.4 K/mm3 (1.8-7.8); Neutrophils % 84.8 % (37.0-80.0); Platelet Count 99 K/mm3 (142-424); Red Blood Count 3.99 M/mm3 (4.20-5.40); Red Cell Distribution Width 14.5 % (11.5-17.5); White Blood Count 6.4 K/mm3 (4.8-10.8)
[2023-02-20 10:27] LABS: Blood, Urine 3+ (Negative); Glucose,Urine (UA) Negative (Negative); Ketones,Urine Negative (Negative); Leukocyte Esterase,Urine TRACE (Negative); Nitrate,Urine POSITIVE (Negative); PH,Urine 7.5 (5.0-8.5); Protein,Urine 2+ (Negative)
[2023-02-20 10:30] LABS: Chloride 108 mmol/L (98-107)
[2023-02-20 10:31] LABS: Potassium 3.8 mmoL/L (3.5-5.1); Sodium 138 mmol/L (136-145)
[2023-02-20 10:33] LABS: Alanine Aminotransferase 38 U/L (12-78); Alkaline Phosphatase 108 U/L (38-126); Anion Gap 7.8 mEq/L (5-15); Aspartate Amino Transferase 87 U/L (14-36); Blood Urea Nitrogen 10 mg/dl (7-17); Carbon Dioxide 26 mmol/L (22.0-30.0); Estimated Glomerular Filt Rate 66 ml/min (>60); GFR (African American) 80 ML/MIN (>60)
[2023-02-20 10:34] LABS: Bilirubin,Urine 1+ (Negative)
[2023-02-20 10:34] LABS: Albumin Level 3.6 g/dl (3.5-5.0); Albumin/Globulin Ratio 0.9 (1.1-1.8); Calcium 8.7 mg/dl (8.4-10.2); Glucose 87 mg/dl (74-100); Lipase 69 U/L (23-300); Total Protein,Serum 7.6 g/dl (6.3-8.2)
[2023-02-20 10:40] LABS: Color,Urine Amber (Yellow)
[2023-02-20 10:41] LABS: Appearance,Urine Turbid (Clear); Bacteria,Urine 3+ /lpf; RBC,Urine 50-100 #/hpf (0-3)
[2023-02-20 10:45] LABS: VBG Base Excess -0.9 mmol/L (-2.4-2.3); VBG HCO3 23.3 mmol/L (23-30); VBG Oxygen Saturation 99.5 % (50-70); VBG PCO2 35.5 mmol/L (35-51); VBG PH 7.44 mmol/L (7.31-7.41); VBG PO2 211.6 mmol/L (28-40); VBG Total CO2 24.4 mmol/L (23-27)
[2023-02-20 10:50] LABS: INR 1.13 (0.9-1.1); Prothrombin Time 12.1 seconds (10.1-12.5)
--- NOTE | 2023-02-20 10:56 | EXP.PHA.CONS ---
Pharmacy Consult Date: 02/20/23 Time: 10:56 Referring provider: DR PATIÑO Reason for Consult:: VANCOMYCIN DOSING CONSULT Allergies Allergy/AdvReac Type Severity Reaction Status Date / Time amoxicillin [From Augmentin] Allergy Verified 10/28/22 00:29 clavulanic acid Allergy Verified 10/28/22 00:29 [From Augmentin] oxycodone Allergy Verified 10/28/22 00:29 Home Medications Medication Instructions Recorded Confirmed Type amitriptyline 50 mg tablet 50 mg PO HS antidepressant 05/02/22 05/02/22 History carvedilol 3.125 mg tablet 3.125 mg PO BID High blood pressure 05/02/22 05/02/22 History duloxetine 30 mg capsule,delayed 30 mg PO DAILY antidepressant 05/02/22 05/02/22 History release ferrous sulfate 324 mg (65 mg 324 mg PO DAILY Supplement 05/02/22 05/02/22 History iron) tablet,delayed release levothyroxine 100 mcg tablet 100 mcg PO DAILY hypothyroidism 05/02/22 05/02/22 History lisinopril 10 mg tablet 10 mg PO DAILY High blood pressure 05/02/22 05/02/22 History pantoprazole 40 mg tablet,delayed 40 mg PO DAILY acid reflux 05/02/22 05/02/22 History release rifaximin 550 mg tablet 550 mg PO BID diarrhea 05/02/22 05/02/22 History acetaminophen 325 mg tablet 325 mg PO QID PRN Anxiety 05/03/22 05/03/22 History cyclobenzaprine 5 mg tablet 5 mg PO TID PRN muscle spasms 05/03/22 05/03/22 History hydroxyzine pamoate 25 mg capsule 25 mg PO QID PRN Anxiety 05/03/22 05/03/22 History melatonin 5 mg tablet 5 mg PO HS PRN Sleep 05/03/22 05/03/22 History cefdinir 300 mg capsule 300 mg PO Q12H 3 days #6 caps 05/05/22 Rx lactulose 20 gram/30 mL oral 10 g (15 mL) PO QID 30 days #1,800 05/05/22 Rx solution mL prednisone 20 mg tablet 20 mg PO BID #10 tabs 07/14/22 Rx amlodipine 5 mg tablet See Rx Instructions .Route 08/03/22 Rx .COMPLEX #30 ea cephalexin 500 mg capsule 500 mg PO TID #21 caps 08/07/22 Rx pyridoxine (vitamin B6) 50 mg See Rx Instructions .Route 08/24/22 Rx tablet .COMPLEX #30 ea New Prescriptions to Start Prescriptions: Height: 1.63 m Weight: 102.058 kg Laboratory Results:: Laboratory Results - last 24 hr 02/20/23 09:53: VBG pH 7.44 H, VBG pCO2 35.5, VBG pO2 211.6 H, VBG HCO3 23.3, VBG Total CO2 24.4, VBG O2 Saturation 99.5 H, VBG Base Excess -0.9 02/20/23 09:55: Urine Color Lizeth, Urine Appearance Turbid, Urine pH 7.5, Ur Specific [place] 1.020, Urine Protein 2+, Urine Glucose (UA) Negative, Urine Ketones Negative, Urine Blood 3+, Urine Nitrate Positive, Urine Bilirubin 1+ A, Urine Urobilinogen 2.0, Ur Leukocyte Esterase Trace, Urine RBC 50-100, Urine WBC 5-10, Urine Bacteria 3+ 02/20/23 09:59: WBC 6.4, RBC 3.99 L, Hgb 13.5, Hct 39.3, MCV 98.5, MCH 33.8 H, MCHC 34.3, RDW 14.5, Plt Count 99 L, MPV 8.2, Neut % (Auto) 84.8 H, Lymph % (Auto) 9.2 L, [place] % (Auto) 5.3, Eos % (Auto) 0.5, Baso % (Auto) 0.3, Neut # (Auto) 5.4, Lymph # (Auto) 0.6 L, [place] # (Auto) 0.3, Eos # (Auto) 0.0, Baso # (Auto) 0.0, PT 12.1, INR 1.13 H, Sodium 138, Potassium 3.8, Chloride 108 H, Carbon Dioxide 26, Anion Gap 7.8, BUN 10, Creatinine 0.90, Estimated GFR 66, Est GFR ( Amer) 80, Glucose 87, Calcium 8.7, Total Bilirubin 2.0 H, AST 87 H, ALT 38, Alkaline Phosphatase 108, Total Protein 7.6, Albumin 3.6, Globulin 4.0 H, Albumin/Globulin Ratio 0.9 L, Lipase 69 02/20/23 10:00: POC Glucose 81 Medical History: Medical History (Updated 01/03/23 @ 02:42 by Federico Patiño MD) Anxiety Cirrhosis of liver Cognitive impairment Encephalopathy Hypothyroid Murmur, heart Obstructive sleep apnea Assessment and Plan Assessment and plan all Dx Assessment and Plan for all problems:: Pharmacokinetic dosing service Objective: Age: 52 yo Serum creatinine: 0.9 mg/dL Height: 64.0 Inches Weight (kg): 102.058 Assessment: IBW (kg): 54.70 Dosing wt(kg): 102.058 Estimated Creatinine clearance (ml/min): 63.9 CRCL metho
[2023-02-20 11:18] LABS: Magnesium 1.6 mg/dl (1.6-2.3)
[2023-02-20 11:19] LABS: Acetaminophen < 10 ug/ml (10-30); Salicylate < 1.0 mg/dL (2.0-20.0)
[2023-02-20 11:22] LABS: Lactic Acid 2.1 mmol/L (0.7-2.1)
[2023-02-20 11:36] LABS: T4 (Thyroxine) 7.6 ug/dl (5.53-11.0)
--- NOTE | 2023-02-20 11:42 | PC.NURSE ---
Pt readjusted on the ED stretcher for comfort with assist times 3; no complications. pt had voided in brief and dry brief was placed. Alarm was turned on stretcher for patient safety. Call faust within [facility]
[2023-02-20 11:44] LABS: Creatine Kinase 446 U/L (30-135)
--- NOTE | 2023-02-20 12:06 | PC.NURSE ---
DR PATIÑO SPEAKING WITH HOSPITALIST FOR ADMISSION
--- NOTE | 2023-02-20 12:20 | PC.NURSE ---
CARE MANAGEMENT NOTIFIED OF ADMISSION
--- NOTE | 2023-02-20 12:30 | PC.NURSE ---
lab at for blood draw
[2023-02-20 12:42] LABS: Ammonia 89 umol/L (9-30)
--- NOTE | 2023-02-20 13:16 | PC.NURSE ---
Report given to Rayne Kraus Rn o Med Surg.
[2023-02-20 14:14] LABS: Reflex Lactic Add Lactic Reflex
--- NOTE | 2023-02-20 14:34 | SW/DCPLANNER ---
Addendum entered by [facility] 02/23/23 11:45: Per MD patient will require I[facility] level of care at time of discharge. Wendy w/ [facility] stated that she can accept this patient today. MD is waiting on cultures to result. I will update patient's State Guardian and Marybel w/ [facility]. Addendum entered by [facility] 02/22/23 10:42: Patient is not medically stable for discharge at this time. If patient continues to show improvement and is able to return to [facility] we will proceed w/ that plan. If placement is needed at time of discharge Wendy w/ [facility] is able to accept. Patient may be ready for discharge tomorrow: I will continue to follow up w/ [facility] and [facility]. Addendum entered by [facility] 02/22/23 08:00: Abigail w[facility] stated that she does not have a female bed at this time. I will continue to follow up w/ Wendy from [facility] and Marybel at [facility]. I will also follow up w/ PT/OT once they work w/ patient this AM. Addendum entered by [facility] 02/21/23 13:13: Brenda stated that patient information can be faxed to [facility] and [facility] at this time. I will also fax updated patient information to Brenda at [phone]. Addendum entered by [facility] 02/21/23 13:11: Patient's State Guardian is now Brenda Garcia [phone]. Addendum entered by [facility] 02/21/23 11:27: I attempted to contact patient's Guardian Judi w/ no answer at this time VM left. PT/OT evaluated patient and discussed the possible need for placement. Once Judi contacts me back we will discuss discharge options. Discharge date is unknown at this time. Original Note: Patient currently resides at [facility] Personal Correction: I spoke w/ Marybel at [facility] and she stated that patient does well at their facility and only requires minimum assistance. I will continue to follow up w/ patient's State Guardian and [facility] until patient is medically stable for discharge. Discharge date is unknown at this time.
[2023-02-20 14:54] LABS: Lactic Acid Follow Up (RFLX 1) 1.7 mmol/L (0.7-2.1)
--- NOTE | 2023-02-20 14:57 | EXP.HP ---
History of Present Illness *Admission Date: 02/20/23 *Reason for visit:: Encephalopathic *History of present illness: Ms. Oconnor is a 52-year-old female who resides at [facility]. She has a history of cirrhosis, bipolar, on numerous psych medications. Presents to the ER via EMS after being found down on the ground at [facility]. She was found by her roommate who is unsure how long the patient was down. She opens her eyes but is not oriented and appears in distress. Denies any specific pain however by my eval was complaining of some right upper quadrant pain. Unable to provide any meaningful history. Noted to be febrile, tachycardic, tachypneic on arrival to the ER. Work-up in the ER concerning for sepsis with possible source from urine. Additionally found to have an ammonia of 86. ER consulted medicine for admission for severe sepsis and encephalopathy. Arrival to the floor, patient unable to provide any further history. Complains of some abdominal pain. Opens her eyes to command and follows commands but unable to give any history. GCS of 15. Still tachycardic, febrile by the time of my evaluation. [facility] Disclaimer: The information contained in this section may have been updated after the patient was seen, as this information can be updated by other users. Medical History Anxiety Cirrhosis of liver Cognitive impairment Encephalopathy Hypothyroid Murmur, heart Obstructive sleep apnea Surgical History H/O section H/O hernia repair Hx of appendectomy Social History Smoking Status: Never smoker alcohol intake: never current occupational status: disabled Travel in the last 8 weeks: None Review of Systems Review of Systems Review of systems:: unable to obtain Meds Home Medications and Allergies Home Medications Medication Instructions Recorded Confirmed Type amitriptyline 50 mg tablet 50 mg PO HS Sleep 05/02/22 02/21/23 History carvedilol 3.125 mg tablet 3.125 mg PO BID High blood pressure 05/02/22 02/21/23 History duloxetine 30 mg capsule,delayed 30 mg PO DAILY Mood 05/02/22 02/21/23 History release ferrous sulfate 324 mg (65 mg 324 mg PO Q48H Supplement 05/02/22 02/21/23 History iron) tablet,delayed release levothyroxine 100 mcg tablet 100 mcg PO DAILY hypothyroidism 05/02/22 02/21/23 History pantoprazole 40 mg tablet,delayed 40 mg PO DAILY acid reflux 05/02/22 02/21/23 History release melatonin 5 mg tablet 5 mg PO HSP PRN Sleep 05/03/22 02/21/23 History oxcarbazepine 300 mg tablet 300 mg PO BID Seizures 02/20/23 02/21/23 History amlodipine 5 mg tablet 5 mg PO HS High Blood Pressure 02/21/23 02/21/23 History pyridoxine (vitamin B6) 50 mg 50 mg PO DAILY Supplement 02/21/23 02/21/23 History tablet New Prescriptions to Start Prescriptions: Allergies Allergy/AdvReac Type Severity Reaction Status Date / Time amoxicillin [From Augmentin] Allergy Verified 10/28/22 00:29 clavulanic acid Allergy Verified 10/28/22 00:29 [From Augmentin] oxycodone Allergy Verified 10/28/22 00:29 Exam Data for Last 24 hours Vital signs and Labs for Last 24 Hours: Temp Pulse Resp BP Pulse Ox O2 Del Method O2 Flow Rate 101.2 F H 94 H 20 128/72 96 Nasal Cannula 2 02/20/23 14:11 02/20/23 14:11 02/20/23 14:11 02/20/23 14:11 02/20/23 14:11 02/20/23 14:11 02/20/23 14:07 Laboratory Results - last 24 hr 02/20/23 09:53: VBG pH 7.44 H, VBG pCO2 35.5, VBG pO2 211.6 H, VBG HCO3 23.3, VBG Total CO2 24.4, VBG O2 Saturation 99.5 H, VBG Base Excess -0.9 02/20/23 09:55: Lactate 2.1, Urine Color Lizeth, Urine Appearance Turbid, Urine pH 7.5, Ur Specific [place] 1.020, Urine Protein 2+, Urine Glucose (UA) Negative, Urine Ketones Negative, Urine Blood 3+, Urine Nitrate Positive, Urine Bilirubin 1+ A, Urine Urobilinogen 2.0, Ur
[2023-02-20 15:04] LABS: INR 1.23 (0.9-1.1); Prothrombin Time 13.1 seconds (10.1-12.5)
--- NOTE | 2023-02-20 18:09 | PC.NURSE ---
Pt's temp has improved. Currently 98.4. She has been up to BSC with assist x2. Unsteady gait observed. Has had one medium stool since Lactulose administered. She is now answering some questions appropriately. A&O x1. Call light within reach. Safety measures in place.
--- NOTE | 2023-02-20 18:40 | PC.WOUNDNOTE ---
excoriation to folds excoriation to abdominal folds and richardson area.
[2023-02-21] VITALS (12 sets, daily range): BP systolic 110–146; BP diastolic 55–77; PULSE 58–76; RESP 16–22; TEMP 36.4–37; O2SAT 91–98; BMI 34.0
[2023-02-21 06:17] LABS: Eosinophils # 0.1 K/mm3 (0.0-0.4); Lymphocytes # 0.8 K/mm3 (0.7-4.5); Monocytes # 0.3 K/mm3 (0.1-1.0)
[2023-02-21 06:25] LABS: Chloride 111 mmol/L (98-107); Sodium 139 mmol/L (136-145)
[2023-02-21 06:26] LABS: Potassium 3.7 mmoL/L (3.5-5.1)
[2023-02-21 06:28] LABS: Alanine Aminotransferase 29 U/L (12-78); Albumin Level 2.7 g/dl (3.5-5.0); Albumin/Globulin Ratio 0.8 (1.1-1.8); Alkaline Phosphatase 74 U/L (38-126); Anion Gap 5.7 mEq/L (5-15); Aspartate Amino Transferase 83 U/L (14-36); Bilirubin,Total 1.8 mg/dl (0.2-1.3); Blood Urea Nitrogen 14 mg/dl (7-17); Calcium 7.9 mg/dl (8.4-10.2); Carbon Dioxide 26 mmol/L (22.0-30.0); Creatinine Clearance Estimated 79 mL/min (50-200); Estimated Glomerular Filt Rate 47 ml/min (>60); GFR (African American) 57 ML/MIN (>60); Globulin 3.3 g/dL (1.3-3.2); Glucose 78 mg/dl (74-100)
[2023-02-21 06:29] LABS: Magnesium 1.7 mg/dl (1.6-2.3)
[2023-02-21 07:17] LABS: Basophils % 0.4 % (0.1-2.0); Eosinophils % 2.9 % (0.1-12.0); Hematocrit 31.6 % (37.0-47.0); Lymphocytes % 18.8 % (10-50); Mean Corpuscular Hemoglobin 34.6 pg (27.0-31.2); Mean Corpuscular Volume 98.8 fl (81-99); Mean Platelet Volume 8.2 fl (7.4-10.4); Monocytes % 6.9 % (1.7-9.3); Neutrophils # 2.9 K/mm3 (1.8-7.8); Platelet Count 78 K/mm3 (142-424); Red Cell Distribution Width 14.6 % (11.5-17.5); White Blood Count 4.1 K/mm3 (4.8-10.8)
--- NOTE | 2023-02-21 07:47 | HMH.PHAINT1 ---
Pharmacy Intervention Comments: MEDICATION RECONCILIATION COMPLETED ON PATIENT USING EXTERNAL FILL HISTORY FROM PHARMACY AND PHONE CONVERSATION WITH ARMEN PAGE. -DIANE CROWDER, GUID
--- NOTE | 2023-02-21 09:33 | CT_ITS ---
FINAL REPORT CLINICAL HISTORY: eval for pyelonephritis and cirrhosis ruq pain COMPARISON: 06/17/2022 FINDINGS: Axial CT images of the abdomen and pelvis were obtained without intravenous contrast. Coronal reformatted images were also obtained.This study was performed with techniques to keep radiation doses as low as reasonably achievable (ALARA). Individualized dose reduction techniques using automated exposure control or adjustment of mA and/or kV according to the patient''s size were employed. Abdomen: There is mild atelectasis in the lung bases. There is no evidence of renal stone or hydronephrosis. The liver has a lobular contour consistent with cirrhosis. Splenomegaly is noted with the spleen measuring 16 cm in length. Post cholecystectomy. The pancreas has an unremarkable, unenhanced appearance. No mass or adenopathy is seen. No inflammatory process is identified. Left upper quadrant varices are noted. There are postoperative changes in the anterior abdominal wall. Pelvis: Images of the pelvis reveal no evidence of ureteral dilation or ureteral stone.No mass or abnormal fluid collection is identified. IMPRESSION: Cirrhosis. Splenomegaly. Reviewed, Interpreted and Dictated by Cristian Coleman III, MD Transcribed by Alexus Estrada Authenticated and [facility]
--- NOTE | 2023-02-21 09:35 | EXP.ACUTE.PN ---
Subjective *Date: 02/21/23 *Time: 19:31 Interval history: Patient alert to self, answering questions but tangential with speech and not oriented to place or time. Pleasant on interview. Improving mentation but still not back to baseline. Globally weak but no focal neurologic deficits. Tolerating p.o. intake. Afebrile. No nausea or vomiting. Has not had a bowel movement since admission. Responded well with antibiotic. Stable on room air. Vitals improving. Medical Exam Vital signs and Labs for Last 24 Hours: Vital Signs Temp Pulse Pulse Pulse Resp BP BP 02/21/23 08:42 02/21/23 08:00 67 18 118/67 02/21/23 08:00 02/21/23 08:00 97.6 F 02/21/23 07:57 02/21/23 06:46 02/21/23 00:00 73 02/21/23 04:00 60 02/21/23 04:00 02/21/23 04:00 98.5 F 60 18 110/57 L 02/21/23 06:00 69 18 123/60 02/21/23 05:00 02/21/23 03:00 02/21/23 02:00 58 L 20 110/55 L 02/21/23 01:00 02/21/23 00:00 98.6 F 68 22 110/60 02/20/23 20:00 89 02/20/23 23:00 02/20/23 22:00 80 16 113/59 L 02/20/23 20:00 98.8 F 86 16 128/67 02/20/23 20:00 02/20/23 18:53 02/20/23 18:44 02/20/23 18:00 98.4 F 93 H 20 156/56 H 02/20/23 16:00 100 H 02/20/23 16:00 102.5 F H 02/20/23 16:00 85 26 H 134/64 02/20/23 16:44 02/20/23 14:00 02/20/23 15:00 02/20/23 15:11 90 28 H 131/62 02/20/23 14:11 101.2 F H 94 H 20 128/72 02/20/23 14:07 102.0 F H 93 H 28 H 128/72 02/20/23 13:40 101.8 F H 91 H 20 129/65 02/20/23 13:00 98 H 29 H 128/69 02/20/23 12:30 98 H 26 H 135/72 02/20/23 12:01 106 H 142/98 H 02/20/23 11:38 111 H 139/81 02/20/23 11:19 102.2 F H 02/20/23 11:01 107 H 28 H 153/75 H 02/20/23 10:54 109 H 21 148/80 H 02/20/23 10:04 103.0 F H 108 H 20 149/86 H Pulse Ox O2 Del Method O2 Flow Rate 02/21/23 08:42 Room Air 02/21/23 08:00 91 L Room Air 02/21/23 08:00 91 L Room Air 02/21/23 08:00 02/21/23 07:57 93 L Room Air 02/21/23 06:46 Nasal Cannula 2 02/21/23 00:00 02/21/23 04:00 02/21/23 04:00 94 L Nasal Cannula 2 02/21/23 04:00 94 L Nasal Cannula 2 02/21/23 06:00 95 Nasal Cannula 2 02/21/23 05:00 Nasal Cannula 2 02/21/23 03:00 Nasal Cannula 1 02/21/23 02:00 91 L Nasal Cannula 1 02/21/23 01:00 Nasal Cannula 1 02/21/23 00:00 91 L Nasal Cannula 1 02/20/23 20:00 02/20/23 23:00 Nasal Cannula 1.5 02/20/23 22:00 91 L Nasal Cannula 1.5 02/20/23 20:00 91 L Nasal Cannula 1.5 02/20/23 20:00 86 L Nasal Cannula 1.5 02/20/23 18:53 Nasal Cannula 1.5 02/20/23 18:44 Nasal Cannula 2 02/20/23 18:00 95 Nasal Cannula 2 02/20/23 16:00 02/20/23 16:00 02/20/23 16:00 96 Nasal Cannula 2 02/20/23 16:44 Nasal Cannula 2 02/20/23 14:00 Nasal Cannula 2 02/20/23 15:00 Nasal Cannula 2 02/20/23 15:11 96 Nasal Cannula 2 02/20/23 14:11 96 Nasal Cannula 02/20/23 14:07 Nasal Cannula 2 02/20/23 13:40 Nasal Cannula 2 02/20/23 13:00 95 Nasal Cannula 2 02/20/23 12:30 95 02/20/23 12:01 95 Nasal Cannula 2 02/20/23 11:38 95 Nasal Cannula 2 02/20/23 11:19 02/20/23 11:01 95 Nasal Cannula 2 02/20/23 10:54 97 Nasal Cannula 2 02/20/23 10:04 96 Nasal Cannula 2 Intake and Output 02/20/23 02/21/23 02/21/23 23:59 07:59 15:59 Intake Total 571 / 841 270 / 841 Output Total 0 / 0 300 / 300 Balance 0 / 1069 271 / 541 270 / 541 Intake: Intake, Oral Amount 0 / 270 270 / 270 Intake, Total IV Amount 571 / 571 Cefepime HCl 2 gm In 0.9 % 200 / 200 Sodium Chloride 100 ml @ 200 mls/hr IV Q12H NATALIE Rx#:[id number] Lactated Ringers 1000ML 1,000 371 / 371 ml @ 50 mls/hr IV .Q20H NATALIE Rx# :[id number] Output: Output, Urine [place]
--- NOTE | 2023-02-21 11:00 | HMH.OTEV ---
OT Inpatient Evaluation Rehab OT IP Evaluation Start: 02/20/23 16:14 Freq: ONCE Status: Active Protocol: Document 02/21/23 10:55 MARGARITA (Rec: 02/21/23 11:00 MARGARITA [id number]) Rehab OT IP Assessment Subjective History 52 year old female brought in by EMS by local [facility] [place] [facility]. Admission dx: Encephalopathic. Patient reported having a hx of CVA in the past. Patient demonstrated difficulty with word finding and unsteadiness on balance. Subjective Last time I couldn't find my words is when I had a stroke. Instructed Patient on bed mobility, transfers, fx'l mobility and toileting. Patient required Min A to cmoplete tasks for safety due to unsteady balance. Objective Patient Orientation Person,Place,Age,Month Upper Extremity Gross ROM WFL Bed Mobility bed mobility - supine/sit Assist Level Minimal x 1 (25% assist) Transfer Training Sit/Stand/Pivot Transfer Assist Level Minimal x 1 (25% assist) Chair Transfer Ability Minimal x 1 (25% assist) Chair Transfer Technique Sit to/from Ambulatory Chair Transfer Assistive Devices Rolling Walker Rehab OT IP prob,goals,plan Problems Date of Evaluation: 02/21/23 OT IP Problems Bed Mobility,Transfers,Balance ,Self care,Safety Rehab Potential Rehab Potential Good Equipment Needs Assistive Devices Rolling / Wheeled Walker Plan OT intervention Plan Bed Mobility,Transfers,Balance ,Self care,Safety,Therapeutic Exercise OT Plan Frequency Daily Duration LOS Discharge Goals Bed Mobility Ability Assistance x1 Sit to Stand Chair Transfer Ability Contact Guard/Hand Hold Chair Transfer Ability Contact Guard/Hand Hold Chair Transfer Technique Sit to/from Ambulatory Chair Transfer Assistive Devices Rolling Walker Discharge Plan OT Discharge Plan Recommend Patient to rehabilitation placement due to needing increase assistance to participate in ADLs and fx 'l mobility. Patient is a high
--- NOTE | 2023-02-21 11:18 | HMH.PTEV ---
Physical Therapy Evaluation Rehab PT IP Evaluation Start: 02/20/23 16:14 Freq: ONCE Status: Active Protocol: Document 02/21/23 11:01 PHORNE (Rec: 02/21/23 11:17 PHORNE [id number]) Subjective/History History History 52 yowf adm to [facility] with sepsis and AMS. She has PMH of cirrhosis and CVA (per her report). She lives at a local personal group home and is generally independent with all ADLs and mobility at baseline without and AD. Subjective Subjective Pt reports word finding difficulty this am anddizziness with standing position. Mild R side droop in her mouth, but baseline muscle tone is unknown. Otherwise A & O x 3. New diagnosis of cancer in past 12 No months? Rehab PT IP Eval Objective Appearance Patient Behavior Appropriate Patient Orientation Person Speech Pattern Garbled,Difficulty Finding Words,Poor Articulation Ambulation Patient Able to Ambulate Yes Ambulation Observation IP General Gait Pattern Observation Shuffling Step Ambulation Distance (feet) 25 Ambulation Assistive Device None Ambulation Ability Minimal x 1 (25% assist) Balance Ability to Arise Able, uses arms to help Sitting Balance Leans or slides in chair Standing Balance Unsteady Dynamic Sitting Balance Ability Fair Dynamic Standing Balance Ability Fair Transfers Bed Transfer Ability Minimal x 1 (25% assist) Chair Transfer Ability Minimal x 1 (25% assist) Sit to Stand Bed Transfer Ability Minimal x 1 (25% assist) Sit to Stand Chair Transfer Ability Minimal x 1 (25% assist) ROM All Extremities PT ROM Status WFL MMT All Extremities PT MMT WFL Rehab PT IP prob,goals,plan Problems Date of Evaluation: 02/21/23 Rehab Potential Rehab Potential Good Plan PT Intervention Plan Bed Mobility,Transfers,Gait, Therapeutic Exercise PT Plan Frequency Daily Duration LOS Discharge Goals Bed Transfer Ability Contact Guard/Hand Hold Sit to Stand Chair Transfer Ability Contact Guard/Hand Hold Ambulation Assistive Device Rolling Walker Ambulation Distance (feet) 40 Discharge Plan PT Discharge Plan Pt is currently most
--- NOTE | 2023-02-21 14:33 | CARE MANAGER ---
Laboratory Tests 02/20/23 02/20/23 02/20/23 09:53 09:55 09:59 WBC 6.4 RBC 3.99 L Hgb 13.5 Hct 39.3 MCV 98.5 MCH 33.8 H MCHC 34.3 RDW 14.5 Plt Count 99 L MPV 8.2 Neut % (Auto) 84.8 H Lymph % (Auto) 9.2 L [place] % (Auto) 5.3 Eos % (Auto) 0.5 Baso % (Auto) 0.3 Neut # (Auto) 5.4 Lymph # (Auto) 0.6 L [place] # (Auto) 0.3 Eos # (Auto) 0.0 Baso # (Auto) 0.0 PT 12.1 INR 1.13 H VBG pH 7.44 H VBG pCO2 35.5 VBG pO2 211.6 H VBG HCO3 23.3 VBG Total CO2 24.4 VBG O2 Saturation 99.5 H VBG Base Excess -0.9 Sodium 138 Potassium 3.8 Chloride 108 H Carbon Dioxide 26 Anion Gap 7.8 BUN 10 Creatinine 0.90 Estimated Creat Clear Estimated GFR 66 Est GFR ( Amer) 80 Glucose 87 POC Glucose Lactate 2.1 Calcium 8.7 Magnesium 1.6 Total Bilirubin 2.0 H AST 87 H ALT 38 Alkaline Phosphatase 108 Ammonia Total Creatine Kinase 446 H Total Protein 7.6 Albumin 3.6 Globulin 4.0 H Albumin/Globulin Ratio 0.9 L Lipase 69 TSH 0.60 Thyroxine (T4) 7.6 Urine Color Lizeth Urine Appearance Turbid Urine pH 7.5 Ur Specific Magazine 1.020 Urine Protein 2+ Urine Glucose (UA) Negative Urine Ketones Negative Urine Blood 3+ Urine Nitrate Positive Urine Bilirubin 1+ A Urine Urobilinogen 2.0 Ur Leukocyte Esterase Trace Urine RBC 50-100 Urine WBC 5-10 Urine Bacteria 3+ Salicylates < 1.0 L Acetaminophen < 10 L 02/20/23 02/20/23 02/20/23 10:00 12:28 14:34 WBC RBC Hgb Hct MCV MCH MCHC RDW Plt Count MPV Neut % (Auto) Lymph % (Auto) [place] % (Auto) Eos % (Auto) Baso % (Auto) Neut # (Auto) Lymph # (Auto) [place] # (Auto) Eos # (Auto) Baso # (Auto) PT 13.1 H INR 1.23 H VBG pH VBG pCO2 VBG pO2 VBG HCO3 VBG Total CO2 VBG O2 Saturation VBG Base Excess Sodium Potassium Chloride Carbon Dioxide Anion Gap BUN Creatinine Estimated Creat Clear Estimated GFR Est GFR ( Amer) Glucose POC Glucose 81 Lactate 1.7 Calcium Magnesium Total Bilirubin AST ALT Alkaline Phosphatase Ammonia 89 H Total Creatine Kinase Total Protein Albumin Globulin Albumin/Globulin Ratio Lipase TSH Thyroxine (T4) Urine Color Urine Appearance Urine pH Ur Specific Magazine Urine Protein Urine Glucose (UA) Urine Ketones Urine Blood Urine Nitrate Urine Bilirubin Urine Urobilinogen Ur Leukocyte Esterase Urine RBC Urine WBC Urine Bacteria Salicylates Acetaminophen 02/21/23 05:53 WBC 4.1 L D RBC 3.20 L Hgb 11.0 L D Hct 31.6 L MCV 98.8 MCH 34.6 H MCHC 35.0 RDW 14.6 Plt Count 78 L MPV 8.2 Neut % (Auto) 71.0 Lymph % (Auto) 18.8 [place] % (Auto) 6.9 Eos % (Auto) 2.9 Baso % (Auto) 0.4 Neut # (Auto) 2.9 Lymph # (Auto) 0.8 [place] # (Auto) 0.3 Eos # (Auto) 0.1 Baso # (Auto) 0.0 PT INR VBG pH VBG pCO2 VBG pO2 VBG HCO3 VBG Total CO2 VBG O2 Saturation VBG Base Excess Sodium 139 Potassium 3.7 Chloride 111 H Carbon Dioxide 26 Anion Gap 5.7 BUN 14 D Creatinine 1.20 H D Estimated Creat Clear 79 Estimated GFR 47 L Est GFR ( Amer) 57 L D Glucose 78 POC Glucose Lactate Calcium 7.9 L Magnesium 1.7 Total Bilirubin 1.8 H AST 83 H ALT 29 Alkaline Phosphatase 74 Ammonia Total Creatine Kinase Total Protein 6.0 L Albumin 2.7 L D Globulin 3.3 H Albumin/Globulin Ratio 0.8 L Lipase TSH Thyroxine (T4) Urine Color Urine Appearance Urine pH Ur Specific Magazine Urine Protein Urine Glucose (UA) Urine Ketones Urine Blood Urine Nitrate Urine Bilirubin Urine Urobilinogen Ur Leukocyte Esterase Urine RBC Urine WBC Urine Bacter
--- NOTE | 2023-02-21 14:35 | CARE MANAGER ---
Vital Signs (72 hours) 02/20/23 10:04 02/20/23 10:54 02/20/23 11:01 Temperature 103.0 F H Pulse Rate 109 H 107 H Pulse Rate [Apical] Pulse Rate [Radial] 108 H Respiratory Rate 20 21 28 H Blood Pressure 148/80 H 153/75 H Blood Pressure [Right Arm] 149/86 H 02 Sat by Pulse Oximetry 96 97 95 Oxygen Delivery Method Nasal Cannula Nasal Cannula Nasal Cannula Oxygen Flow Rate (LPM) 2 2 2 02/20/23 11:19 02/20/23 11:38 02/20/23 12:01 Temperature 102.2 F H Pulse Rate 111 H 106 H Pulse Rate [Apical] Pulse Rate [Radial] Respiratory Rate Blood Pressure 139/81 142/98 H Blood Pressure [Right Arm] 02 Sat by Pulse Oximetry 95 95 Oxygen Delivery Method Nasal Cannula Nasal Cannula Oxygen Flow Rate (LPM) 2 2 02/20/23 12:30 02/20/23 13:00 02/20/23 13:40 Temperature 101.8 F H Pulse Rate 98 H 98 H 91 H Pulse Rate [Apical] Pulse Rate [Radial] Respiratory Rate 26 H 29 H 20 Blood Pressure 135/72 128/69 129/65 Blood Pressure [Right Arm] 02 Sat by Pulse Oximetry 95 95 Oxygen Delivery Method Nasal Cannula Nasal Cannula Oxygen Flow Rate (LPM) 2 2 02/20/23 14:07 02/20/23 14:11 02/20/23 15:11 Temperature 102.0 F H 101.2 F H Pulse Rate Pulse Rate [Apical] Pulse Rate [Radial] 93 H 94 H 90 Respiratory Rate 28 H 20 28 H Blood Pressure Blood Pressure [Right Arm] 128/72 128/72 131/62 02 Sat by Pulse Oximetry 96 96 Oxygen Delivery Method Nasal Cannula Nasal Cannula Nasal Cannula Oxygen Flow Rate (LPM) 2 2 02/20/23 15:00 02/20/23 14:00 02/20/23 16:44 Temperature Pulse Rate Pulse Rate [Apical] Pulse Rate [Radial] Respiratory Rate Blood Pressure Blood Pressure [Right Arm] 02 Sat by Pulse Oximetry Oxygen Delivery Method Nasal Cannula Nasal Cannula Nasal Cannula Oxygen Flow Rate (LPM) 2 2 2 02/20/23 16:00 02/20/23 16:00 02/20/23 16:00 Temperature 102.5 F H Pulse Rate 100 H Pulse Rate [Apical] Pulse Rate [Radial] 85 Respiratory Rate 26 H Blood Pressure Blood Pressure [Right Arm] 134/64 02 Sat by Pulse Oximetry 96 Oxygen Delivery Method Nasal Cannula Oxygen Flow Rate (LPM) 2 02/20/23 18:00 02/20/23 18:44 02/20/23 18:53 Temperature 98.4 F Pulse Rate Pulse Rate [Apical] Pulse Rate [Radial] 93 H Respiratory Rate 20 Blood Pressure Blood Pressure [Right Arm] 156/56 H 02 Sat by Pulse Oximetry 95 Oxygen Delivery Method Nasal Cannula Nasal Cannula Nasal Cannula Oxygen Flow Rate (LPM) 2 2 1.5 02/20/23 20:00 02/20/23 20:00 02/20/23 22:00 Temperature 98.8 F Pulse Rate Pulse Rate [Apical] Pulse Rate [Radial] 86 80 Respiratory Rate 16 16 Blood Pressure Blood Pressure [Right Arm] 128/67 113/59 L 02 Sat by Pulse Oximetry 86 L 91 L 91 L Oxygen Delivery Method Nasal Cannula Nasal Cannula Nasal Cannula Oxygen Flow Rate (LPM) 1.5 1.5 1.5 02/20/23 23:00 02/20/23 20:00 02/21/23 00:00 Temperature 98.6 F Pulse Rate 89 Pulse Rate [Apical] Pulse Rate [Radial] 68 Respiratory Rate 22 Blood Pressure Blood Pressure [Right Arm] 110/60 02 Sat by Pulse Oximetry 91 L Oxygen Delivery Method Nasal Cannula Nasal Cannula Oxygen Flow Rate (LPM) 1.5 1 02/21/23 01:00 02/21/23 02:00 02/21/23 03:00 Temperature Pulse Rate Pulse Rate [Apical] Pulse Rate [Radial] 58 L Respiratory Rate 20 Blood Pressure Blood Pressure [Right Arm] 110/55 L 02 Sat by Pulse Oximetry 91 L Oxygen Delivery Method Nasal Cannula Nasal Cannula Nasal Cannula Oxygen Flow Rate (LPM) 1 1 1 02/21/23 05:00 02/21/23 06:00 02/21/23 04:00 Temperature 98.5 F Pulse Rate Pulse Rate [Apical] Pulse Rate [Radial] 69 60 Respiratory Rate 18 18 Blood Pressure Blood Pressure [Right Arm] 123/60 110/57 L 02 Sat by Pulse Oximetry 95 94 L Oxygen Delivery Method Nasal Cannula Nasal Cannula Nasal Cannula Oxygen Flow Rate (LPM) 2 2 2 02/21/23 04:00 02/21/23 04:00 02/21/23 00:00 Temperature
--- NOTE | 2023-02-21 17:39 | PC.NURSE ---
Pt is more alert this shift. She is able to ambulate to BSC without difficulty. Standby assist needed. SHe has had multiple stools this shift. Lactulose and enema administered. Has c/o discomfort to abdomen and shoulder this shift. Medicated per jun. Call light within reach. Safety measures in place.
[2023-02-21 23:26] LABS: Vancomycin,Trough 15.1 ug/mL (5.0-10.0)
[2023-02-22] VITALS: BP 166/74; PULSE 69; RESP 18; TEMP 36.4; O2SAT 97
[2023-02-22 00:40] VITALS: PULSE 70
[2023-02-22 04:00] VITALS: BP 119/67; PULSE 60; RESP 18; TEMP 36.4; O2SAT 94; BMI 34.4
[2023-02-22 05:47] LABS: Basophils % 0.6 % (0.1-2.0); Eosinophils # 0.1 K/mm3 (0.0-0.4); Eosinophils % 4.5 % (0.1-12.0); Hemoglobin 11.2 g/dL (12.2-16.2); Lymphocytes # 0.8 K/mm3 (0.7-4.5); Lymphocytes % 27.6 % (10-50); Mean Corpuscular HGB Conc 34.8 g/dL (31.8-35.4); Mean Corpuscular Hemoglobin 34.7 pg (27.0-31.2); Mean Corpuscular Volume 99.6 fl (81-99); Monocytes # 0.2 K/mm3 (0.1-1.0); Monocytes % 7.1 % (1.7-9.3); Neutrophils # 1.7 K/mm3 (1.8-7.8); Neutrophils % 60.3 % (37.0-80.0); Platelet Count 79 K/mm3 (142-424); Red Blood Count 3.21 M/mm3 (4.20-5.40); Red Cell Distribution Width 14.3 % (11.5-17.5); White Blood Count 2.9 K/mm3 (4.8-10.8)
[2023-02-22 05:52] LABS: Chloride 115 mmol/L (98-107); Potassium 3.5 mmoL/L (3.5-5.1); Sodium 141 mmol/L (136-145)
[2023-02-22 05:54] LABS: Blood Urea Nitrogen 14 mg/dl (7-17); Creatinine Clearance Estimated 88 mL/min (50-200); Estimated Glomerular Filt Rate 52 ml/min (>60); GFR (African American) 63 ML/MIN (>60)
[2023-02-22 05:55] LABS: Alanine Aminotransferase 30 U/L (12-78); Albumin Level 2.8 g/dl (3.5-5.0); Albumin/Globulin Ratio 0.8 (1.1-1.8); Alkaline Phosphatase 81 U/L (38-126); Anion Gap 7.5 mEq/L (5-15); Aspartate Amino Transferase 81 U/L (14-36); Bilirubin,Total 0.7 mg/dl (0.2-1.3); Carbon Dioxide 22 mmol/L (22.0-30.0); Globulin 3.3 g/dL (1.3-3.2); Glucose 95 mg/dl (74-100); Total Protein,Serum 6.1 g/dl (6.3-8.2)
[2023-02-22 05:56] LABS: Ammonia 66 umol/L (9-30)
[2023-02-22 08:00] VITALS: BP 119/68; PULSE 50; PULSE 59; RESP 17; TEMP 36.4; O2SAT 97
--- NOTE | 2023-02-22 11:44 | P.CONPHA_ITS ---
Pharmacy Consult Date: 02/22/23 Time: 11:44 Referring provider: DR. SIMS Reason for Consult:: VANCOMYCIN LEVEL Allergies Allergy/AdvReac Type Severity Reaction Status Date / Time amoxicillin [From Augmentin] Allergy Verified 10/28/22 00:29 clavulanic acid Allergy Verified 10/28/22 00:29 [From Augmentin] oxycodone Allergy Verified 10/28/22 00:29 Home Medications Medication Instructions Recorded Confirmed Type amitriptyline 50 mg tablet 50 mg PO HS Sleep 05/02/22 02/21/23 History carvedilol 3.125 mg tablet 3.125 mg PO BID High blood pressure 05/02/22 02/21/23 History duloxetine 30 mg capsule,delayed 30 mg PO DAILY Mood 05/02/22 02/21/23 History release ferrous sulfate 324 mg (65 mg 324 mg PO Q48H Supplement 05/02/22 02/21/23 History iron) tablet,delayed release levothyroxine 100 mcg tablet 100 mcg PO DAILY hypothyroidism 05/02/22 02/21/23 History pantoprazole 40 mg tablet,delayed 40 mg PO DAILY acid reflux 05/02/22 02/21/23 History release melatonin 5 mg tablet 5 mg PO HSP PRN Sleep 05/03/22 02/21/23 History oxcarbazepine 300 mg tablet 300 mg PO BID Seizures 02/20/23 02/21/23 History amlodipine 5 mg tablet 5 mg PO HS High Blood Pressure 02/21/23 02/21/23 History pyridoxine (vitamin B6) 50 mg 50 mg PO DAILY Supplement 02/21/23 02/21/23 History tablet New Prescriptions to Start Prescriptions: Height: 1.63 m Weight: 91.654 kg Laboratory Results:: Laboratory Results - last 24 hr 02/21/23 22:25: Vancomycin Trough 15.1 H 02/22/23 05:24: WBC 2.9 L D, RBC 3.21 L, Hgb 11.2 L, Hct 32.0 L, MCV 99.6 H, MCH 34.7 H, MCHC 34.8, RDW 14.3, Plt Count 79 L, MPV 8.0, Neut % (Auto) 60.3, Lymph % (Auto) 27.6, [place] % (Auto) 7.1, Eos % (Auto) 4.5, Baso % (Auto) 0.6, Neut # (Auto) 1.7 L, Lymph # (Auto) 0.8, [place] # (Auto) 0.2, Eos # (Auto) 0.1, Baso # (Auto) 0.0, Sodium 141, Potassium 3.5, Chloride 115 H, Carbon Dioxide 22, Anion Gap 7.5, BUN 14, Creatinine 1.10 H, Estimated Creat Clear 88, Estimated GFR 52 L , Est GFR ( Amer) 63, Glucose 95 D, Calcium 8.0 L, Magnesium 2.0 D, Total Bilirubin 0.7, AST 81 H, ALT 30, Alkaline Phosphatase 81, Ammonia 66 H, Total Protein 6.1 L, Albumin 2.8 L, Globulin 3.3 H, Albumin/Globulin Ratio 0.8 L Medical History: Medical History (Updated 02/20/23 @ 20:12 by Jhon Sims MD) Anxiety Cirrhosis of liver Cognitive impairment Encephalopathy Hypothyroid Murmur, heart Obstructive sleep apnea Assessment and Plan Assessment and plan all Dx Assessment and Plan for all problems:: PATIENT'S VANCOMYCIN TROUGH LEVEL WAS 15.1 MCG/ML OVERNIGHT. RECOMMENDED PATIENT CONTINUE WITH VANCOMYCIN 1750 MG Q18H AT THIS TIME.
[2023-02-22 16:00] VITALS: BP 138/75; PULSE 59; RESP 18; TEMP 36.3; O2SAT 100
--- NOTE | 2023-02-22 18:55 | EXP.ACUTE.PN ---
Subjective *Date: 02/22/23 *Time: 19:15 Interval history: No nausea or vomiting. Having bowel movements. Alert and oriented to self, knows she is at the hospital but not where. Stable on room air. Afebrile. Tolerating p.o. intake. Working with therapy. Medical Exam Vital signs and Labs for Last 24 Hours: Vital Signs Temp Pulse Pulse Resp BP Pulse Ox O2 Del Method 02/22/23 17:52 Room Air 02/22/23 16:00 97.4 F L 59 L 18 138/75 100 Room Air 02/22/23 15:46 Room Air 02/22/23 14:45 Room Air 02/22/23 13:00 Room Air 02/22/23 10:58 Room Air 02/22/23 08:00 50 L 02/22/23 08:00 97 Room Air 02/22/23 09:00 Room Air 02/22/23 08:00 97.5 F L 59 L 17 119/68 97 Room Air 02/22/23 06:49 Room Air 02/22/23 05:00 Room Air 02/22/23 04:00 60 02/22/23 04:00 97.6 F 60 18 119/67 94 L Room Air 02/22/23 03:00 Room Air 02/22/23 01:00 Room Air 02/22/23 00:40 70 02/22/23 00:00 97.6 F 69 18 166/74 H 97 Room Air 02/21/23 23:00 Room Air 02/21/23 21:00 Room Air 02/21/23 20:00 70 02/21/23 20:00 98 Room Air 02/21/23 20:00 98.4 F 76 18 117/70 97 Intake and Output 02/22/23 02/22/23 02/22/23 07:59 15:59 23:59 Intake Total 240 / 600 360 / 600 Output Total 600 / 600 0 / 600 0 / 600 Balance -600 / 0 240 / 0 360 / 0 Intake: Intake, Oral Amount 240 / 600 360 / 600 Output: Output, Urine Amount 600 / 600 0 / 600 0 / 600 Other: Number of Unmeasured Voids 1 1 Number of Bowel Movements 1 1 1 Weight 91.654 kg 91.654 kg Patient Weight 02/22/23 23:59 Weight 91.654 kg Laboratory Results - last 24 hr 02/21/23 22:25: Vancomycin Trough 15.1 H 02/22/23 05:24: WBC 2.9 L D, RBC 3.21 L, Hgb 11.2 L, Hct 32.0 L, MCV 99.6 H, MCH 34.7 H, MCHC 34.8, RDW 14.3, Plt Count 79 L, MPV 8.0, Neut % (Auto) 60.3, Lymph % (Auto) 27.6, [place] % (Auto) 7.1, Eos % (Auto) 4.5, Baso % (Auto) 0.6, Neut # (Auto) 1.7 L, Lymph # (Auto) 0.8, [place] # (Auto) 0.2, Eos # (Auto) 0.1, Baso # (Auto) 0.0, Sodium 141, Potassium 3.5, Chloride 115 H, Carbon Dioxide 22, Anion Gap 7.5, BUN 14, Creatinine 1.10 H, Estimated Creat Clear 88, Estimated GFR 52 L, Est GFR ( Amer) 63, Glucose 95 D, Calcium 8.0 L, Magnesium 2.0 D, Total Bilirubin 0.7, AST 81 H, ALT 30, Alkaline Phosphatase 81, Ammonia 66 H, Total Protein 6.1 L, Albumin 2.8 L, Globulin 3.3 H, Albumin/Globulin Ratio 0.8 L I & O for Labs for Last 24 Hours: Intake & Output 02/19/23 02/20/23 02/21/23 02/22/23 23:59 23:59 23:59 23:59 Intake Total 498 / 1069 1912 / 1912 600 / 600 Output Total 0 / 0 800 / 1000 600 / 600 Balance 498 / 1069 1112 / 912 0 / 0 Weight 90.35 kg 90.35 kg 91.654 kg Constitutional: Present no acute distress, obese and chronically ill appearing Head: Present atraumatic and normocephalic ENT: Present normal exam Neck: Present normal inspection Respiratory: Present CTA bilaterally; Absent accessory muscle use, rhonchi, wheezes or crackles Cardiac: Present Reg Rate and Rhythm and S1/S2 GI: Present soft and tenderness (Right upper quadrant) Rectal (female): Present deferred (female): Present deferred Extremities: Present normal inspection Skin: Present intact and cyanosis Neuro: Present alert, awake and moves all extremities Assessment and Plan *Assessment and plan (1) UTI (urinary tract infection): Status: Acute Category: Medical Code(s): N39.0 - Urinary tract infection, site not specified (2) Metabolic encephalopathy: Status: Acute Category: Medical Code(s): G93.41 - Metabolic encephalopathy (3) Cellulitis: Status: Acute Category: Medical Code(s): L03.90 - Cellulitis, unspecified (4) Respiratory failure: Status: Acute Qualifiers: Chronicity: acute Respiratory failure complication: hypoxia Qualified Code(s): J96.01 - Acute respiratory failur
[2023-02-22 20:00] VITALS: BP 139/75; PULSE 70; RESP 18; TEMP 36.8; O2SAT 97
[2023-02-23] VITALS: BP 103/56; PULSE 74; RESP 18; TEMP 36.9; O2SAT 97
[2023-02-23 04:00] VITALS: BP 129/68; PULSE 71; RESP 18; TEMP 36.7; O2SAT 95; BMI 34.3
[2023-02-23 06:40] LABS: Basophils % 0.4 % (0.1-2.0); Eosinophils # 0.2 K/mm3 (0.0-0.4); Eosinophils % 6.5 % (0.1-12.0); Hematocrit 32.3 % (37.0-47.0); Lymphocytes # 0.8 K/mm3 (0.7-4.5); Lymphocytes % 30.3 % (10-50); Mean Corpuscular HGB Conc 34.2 g/dL (31.8-35.4); Mean Corpuscular Hemoglobin 34.5 pg (27.0-31.2); Mean Corpuscular Volume 100.8 fl (81-99); Mean Platelet Volume 8.3 fl (7.4-10.4); Monocytes # 0.2 K/mm3 (0.1-1.0); Monocytes % 7.8 % (1.7-9.3); Neutrophils # 1.4 K/mm3 (1.8-7.8); Platelet Count 77 K/mm3 (142-424); Red Cell Distribution Width 14.5 % (11.5-17.5); White Blood Count 2.5 K/mm3 (4.8-10.8)
[2023-02-23 06:52] LABS: Chloride 113 mmol/L (98-107)
[2023-02-23 06:53] LABS: Potassium 3.6 mmoL/L (3.5-5.1); Sodium 139 mmol/L (136-145)
[2023-02-23 06:55] LABS: Alanine Aminotransferase 28 U/L (12-78); Alkaline Phosphatase 80 U/L (38-126); Anion Gap 5.6 mEq/L (5-15); Aspartate Amino Transferase 74 U/L (14-36); Bilirubin,Total 0.5 mg/dl (0.2-1.3); Blood Urea Nitrogen 9 mg/dl (7-17); Carbon Dioxide 24 mmol/L (22.0-30.0); Creatinine Clearance Estimated 120 mL/min (50-200); Estimated Glomerular Filt Rate 76 ml/min (>60); GFR (African American) 92 ML/MIN (>60)
[2023-02-23 06:56] LABS: Albumin Level 2.7 g/dl (3.5-5.0); Albumin/Globulin Ratio 0.8 (1.1-1.8); Calcium 7.8 mg/dl (8.4-10.2); Globulin 3.3 g/dL (1.3-3.2); Glucose 78 mg/dl (74-100)
[2023-02-23 07:23] LABS: Magnesium 1.8 mg/dl (1.6-2.3)
[2023-02-23 08:00] VITALS: BP 136/66; PULSE 74; RESP 18; TEMP 36.6; O2SAT 96
--- NOTE | 2023-02-23 09:08 | EXP.PHA.PN ---
Subjective *Date: 02/23/23 *Time: 09:08 Medical Exam Vital signs and Labs for Last 24 Hours: Vital Signs Temp Pulse Resp BP Pulse Ox O2 Del Method O2 Flow Rate 02/23/23 08:00 97.8 F 74 18 136/66 96 Room Air 02/23/23 06:42 Room Air 02/23/23 05:00 Room Air 02/23/23 04:00 98.1 F 71 18 129/68 95 Room Air 02/23/23 03:00 Room Air 02/23/23 01:00 Room Air 02/23/23 00:00 98.4 F 74 18 103/56 L 97 Nasal Cannula 1 02/22/23 23:00 Room Air 02/22/23 21:00 Room Air 02/22/23 20:00 Room Air 02/22/23 20:00 98.2 F 70 18 139/75 97 Room Air 02/22/23 17:52 Room Air 02/22/23 16:00 97.4 F L 59 L 18 138/75 100 Room Air 02/22/23 15:46 Room Air 02/22/23 14:45 Room Air 02/22/23 13:00 Room Air 02/22/23 10:58 Room Air Intake and Output 02/22/23 02/23/23 02/23/23 23:59 07:59 15:59 Intake Total 360 / 600 950 / 1220 270 / 1220 Output Total 200 / 800 0 / 0 Balance 160 / -200 950 / 1220 270 / 1220 Intake: Intake, Oral Amount 360 / 600 270 / 270 Intake, Total IV Amount 950 / 950 Cefepime HCl 2 gm In 0.9 % 100 / 100 Sodium Chloride 100 ml @ 200 mls/hr IV Q12H NATALIE Rx#:[id number] Lactated Ringers 1000ML 1,000 850 / 850 ml @ 50 mls/hr IV .Q20H NATALIE Rx# :[id number] Output: Output, Urine Amount 200 / 800 0 / 0 Other: Number of Unmeasured Voids 1 1 Number of Bowel Movements 1 1 Weight 91.285 kg Patient Weight 02/23/23 23:59 Weight 91.285 kg Laboratory Results - last 24 hr 02/23/23 05:41: WBC 2.5 L, RBC 3.20 L, Hgb 11.0 L, Hct 32.3 L, MCV 100.8 H, MCH 34.5 H, MCHC 34.2, RDW 14.5, Plt Count 77 L, MPV 8.3, Neut % (Auto) 55.0, Lymph % (Auto) 30.3, [place] % (Auto) 7.8, Eos % (Auto) 6.5, Baso % (Auto) 0.4, Neut # (Auto) 1.4 L, Lymph # (Auto) 0.8, [place] # (Auto) 0.2, Eos # (Auto) 0.2, Baso # (Auto) 0.0, Sodium 139, Potassium 3.6, Chloride 113 H, Carbon Dioxide 24, Anion Gap 5.6, BUN 9 D, Creatinine 0.80 D, Estimated Creat Clear 120, Estimated GFR 76, Est GFR ( Amer) 92 D, Glucose 78, Calcium 7.8 L, Magnesium 1.8, Total Bilirubin 0.5, AST 74 H, ALT 28, Alkaline Phosphatase 80, Total Protein 6.0 L, Albumin 2.7 L, Globulin 3.3 H, Albumin/Globulin Ratio 0.8 L I & O for Labs for Last 24 Hours: Intake & Output 02/20/23 02/21/23 02/22/23 02/23/23 23:59 23:59 23:59 23:59 Intake Total 498 / 1069 1912 / 1912 600 / 600 1220 / 1220 Output Total 0 / 0 800 / 1000 800 / 800 0 / 0 Balance 498 / 1069 1112 / 912 -200 / -200 1220 / 1220 Weight 90.35 kg 90.35 kg 91.654 kg 91.285 kg The patient's infection will respond to the chosen ABx?: Yes (WBC 2.5, AFEBRILE, BLOOD AND URINE CULTURES PENDING.) Is the patient receiving the right drug, dose, and route?: Yes Could a more targeted ABx be ordered?: No
--- NOTE | 2023-02-23 11:34 | PC.NURSE ---
courtesy tech note: pt was given a pitcher full of ice and orange juice upon request. call light is within reach.
[2023-02-23 12:00] VITALS: BP 143/77; PULSE 61; RESP 20; TEMP 36.9; O2SAT 97
--- NOTE | 2023-02-23 12:34 | P.CONPHA_ITS ---
Pharmacy Consult Date: 02/23/23 Time: 12:34 Referring provider: DR. SIMS Reason for Consult:: VANCOMYCIN LEVEL Allergies Allergy/AdvReac Type Severity Reaction Status Date / Time amoxicillin [From Augmentin] Allergy Verified 10/28/22 00:29 clavulanic acid Allergy Verified 10/28/22 00:29 [From Augmentin] oxycodone Allergy Verified 10/28/22 00:29 Home Medications Medication Instructions Recorded Confirmed Type amitriptyline 50 mg tablet 50 mg PO HS Sleep 05/02/22 02/21/23 History carvedilol 3.125 mg tablet 3.125 mg PO BID High blood pressure 05/02/22 02/21/23 History duloxetine 30 mg capsule,delayed 30 mg PO DAILY Mood 05/02/22 02/21/23 History release ferrous sulfate 324 mg (65 mg 324 mg PO Q48H Supplement 05/02/22 02/21/23 History iron) tablet,delayed release levothyroxine 100 mcg tablet 100 mcg PO DAILY hypothyroidism 05/02/22 02/21/23 History pantoprazole 40 mg tablet,delayed 40 mg PO DAILY acid reflux 05/02/22 02/21/23 History release melatonin 5 mg tablet 5 mg PO HSP PRN Sleep 05/03/22 02/21/23 History oxcarbazepine 300 mg tablet 300 mg PO BID Seizures 02/20/23 02/21/23 History amlodipine 5 mg tablet 5 mg PO HS High Blood Pressure 02/21/23 02/21/23 History pyridoxine (vitamin B6) 50 mg 50 mg PO DAILY Supplement 02/21/23 02/21/23 History tablet New Prescriptions to Start Prescriptions: Height: 1.63 m Weight: 91.285 kg Laboratory Results:: Laboratory Results - last 24 hr 02/23/23 05:41: WBC 2.5 L, RBC 3.20 L, Hgb 11.0 L, Hct 32.3 L, MCV 100.8 H, MCH 34.5 H, MCHC 34.2, RDW 14.5, Plt Count 77 L, MPV 8.3, Neut % (Auto) 55.0, Lymph % (Auto) 30.3, [place] % (Auto) 7.8, Eos % (Auto) 6.5, Baso % (Auto) 0.4, Neut # (Auto) 1.4 L, Lymph # (Auto) 0.8, [place] # (Auto) 0.2, Eos # (Auto) 0.2, Baso # (Auto) 0.0, Sodium 139, Potassium 3.6, Chloride 113 H, Carbon Dioxide 24, Anion Gap 5.6, BUN 9 D, Creatinine 0.80 D, Estimated Creat Clear 120, Estimated GFR 76, Est GFR ( Amer) 92 D, Glucose 78, Calcium 7.8 L, Magnesium 1.8, Total Bilirubin 0.5, AST 74 H, ALT 28, Alkaline Phosphatase 80, Total Protein 6.0 L, Albumin 2.7 L, Globulin 3.3 H, Albumin/Globulin Ratio 0.8 L 02/23/23 10:37: Vancomycin Trough 16.0 H Medical History: Medical History (Updated 02/20/23 @ 20:12 by Jhon Sims MD) Anxiety Cirrhosis of liver Cognitive impairment Encephalopathy Hypothyroid Murmur, heart Obstructive sleep apnea Assessment and Plan Assessment and plan all Dx Assessment and Plan for all problems:: VANCOMYCIN TROUGH LEVEL WAS 16.0 MCG/ML THIS AM. RECOMMEND CONTINUING WITH VANCOMYCIN 1750 MG Q18H AT THIS TIME.
--- NOTE | 2023-02-23 12:50 | EXP.DC.SUM ---
General Admission date:: 02/20/23 Discharge date: 02/23/23 HPI HPI HPI: Ms. Oconnor is a 52-year-old female who resides at [facility]. She has a history of cirrhosis, bipolar, on numerous psych medications. Presents to the ER via EMS after being found down on the ground at [facility]. She was found by her roommate who is unsure how long the patient was down. She opens her eyes but is not oriented and appears in distress. Denies any specific pain however by my eval was complaining of some right upper quadrant pain. Unable to provide any meaningful history. Noted to be febrile, tachycardic, tachypneic on arrival to the ER. Work-up in the ER concerning for sepsis with possible source from urine. Additionally found to have an ammonia of 86. ER consulted medicine for admission for severe sepsis and encephalopathy. Arrival to the floor, patient unable to provide any further history. Complains of some abdominal pain. Opens her eyes to command and follows commands but unable to give any history. GCS of 15. Still tachycardic, febrile by the time of my evaluation. Hospital Course Hospital Course Hospital Course: 52-year-old female who resides at [facility] who presents with severe sepsis. Patient is altered and encephalopathic. History of cirrhosis and psychiatric comorbidities. Urinalysis concerning for UTI. Discussed case with ER, request admission for severe sepsis, IV antibiotics, monitoring of cultures and treatment for encephalopathy. Medicine agreed to admit to stepdown given severity of illness and encephalopathy. Continues to show improvement in mentation today. Vitals have stabilized. Patient afebrile. Labs normalized. Still slightly confused from baseline but pleasant and cooperative. Stable for discharge nursing facility to continue treatment for encephalopathy and to complete antibiotic course. Needs rehab before she is independently mobile enough to return to her personal-long term. Problems addressed during hospitalization as follows: Severe sepsis, resolved UTI Cellulitis -Urine and blood cultures obtained on admission. Urine culture growing greater than 100,000 CFU's of gram-negative rods. Blood cultures remain negative. Patient has responded well to vancomycin and cefepime. Will transition to levofloxacin 750 mg daily to complete treatment for infection. Total of 7 days of antibiotics. White cell count stable. Recommend repeat CBC and CMP in 1 week to monitor stability of labs, kidney function, electrolytes, white cell count. Would also recommend ammonia level to make sure she is clearing well. Stable on room air at this time. Recommend continuing nystatin powder on her abdomen for her intertrigo. Metabolic encephalopathy secondary to sepsis versus hepatic etiology. Cirrhosis Right upper quadrant pain -Ammonia obtained, elevated 86 on arrival, gradually trending down. Continuing lactulose, decreased to twice daily with the addition of rifaximin twice daily. We will need to continue these medications to maintain stable ammonia levels and prevent further hepatic encephalopathy. Kidney function normalized with creatinine recommend labs as above. Bipolar, continue oxcarbazepine per home regimen 300 mg daily. Hold amitriptyline 50 mg nightly for now. Continue levothyroxine 100 mg daily for hypothyroid Continue carvedilol 3.125 mg twice daily for hypertension Continue amlodipine 5 mg daily for hypertension Continue Cymbalta 30 mg daily for depression Continue pantoprazole 40 mg daily for GERD Stable for discharge to nursing facility. Exam Data for Last 24 hours Vital signs and Labs for Last 24 Hours: Temp Pulse Resp BP Pulse Ox O2 Del Method O2 Flow Rate 98.4 F 61 20 143/77 H 97 Room Air 1 02/23/23 12:00 02/23/23 12:00 02/23/23 12:00 02/23/23 12:00 02/23/23 12:00 02/23/23 12:00 02/23/23 00:00 Laboratory Results - last 24 hr 02/23/23 05:41: WBC 2.5 L, RBC 3.20 L, Hgb 11.0 L, Hct
== END 2023-02-23 15:50 | DRG 871 ==
LOC: ER 10:24 → 2ND 12:46
PROVIDERS: Admitting Provider Internal Medicine Adolescent Medicine; Emergency Provider Emergency Medicine; PCP Emergency Medicine; Visit Provider Internal Medicine Adolescent Medicine
DX: A41.9 Sepsis, unspecified organism (principal); G93.41 Metabolic encephalopathy; J96.01 Acute respiratory failure with hypoxia; N39.0 Urinary tract infection, site not specified; L03.311 Cellulitis of abdominal wall; R65.20 Severe sepsis without septic shock; E03.9 Hypothyroidism, unspecified; I10 Essential (primary) hypertension; F31.9 Bipolar disorder, unspecified; K74.60 Unspecified cirrhosis of liver; G47.33 Obstructive sleep apnea (adult) (pediatric)
CPT/HCPCS: 62272; 36415; 70450; 71045; 72125; 72170; 74176; 80053; 80202; 80329; 81001; 82140; 82550; 82803; 82962; 83605; 83690; 83735; 84436; 84443; 85025; 85610; 87040; 93005; 94760; 94761; 97110; 97163; 97165; 97530; 97535; 99291; J0692

== ENCOUNTER → 2023-04-12 09:56 | Outpatient (CLI) | payer MEDICAID, SELFPAY ==
--- NOTE | 2023-04-12 09:56 | MM_ITS ---
PROCEDURE INFORMATION: Exam: Bilateral Screening 3D Mammography Exam date and time: 04/12/2023 9:52 AM Age: 53 years old Clinical indication: Screening examination TECHNIQUE: Imaging protocol: Bilateral Screening tomosynthesis and 2D mammography including computer-aided detection (CAD) when performed. COMPARISON: [facility] MAMMO W/CAD BILAT 08/27/2020 4:01 PM FINDINGS: MAMMOGRAPHY: Breast composition: There are scattered areas of fibroglandular density. Mass: None. Architectural distortion: None. Calcifications: No suspicious calcifications. Asymmetric density: None. Skin thickening: None. Axillary adenopathy: None. IMPRESSION: No mammographic evidence of malignancy. Annual screening is recommended unless otherwise clinically indicated. ASSESSMENT: BI-RADS Category 1: Negative
== END ==
PROVIDERS: PCP Emergency Medicine; Visit Provider Emergency Medicine
DX: Z12.31 Encounter for screening mammogram for malignant neoplasm of breast (principal)
CPT/HCPCS: 77063; 77067

== ENCOUNTER 2023-05-13 20:11 | Inpatient (IN) | payer MEDICAID, SELFPAY ==
[2023-05-13 20:12] VITALS: PULSE 98; TEMP 39.1; O2SAT 96
[2023-05-13 20:16] VITALS: BP 152/81; PULSE 98; RESP 22; O2SAT 96; BMI 34.7
--- NOTE | 2023-05-13 20:20 | XR_ITS ---
PROCEDURE INFORMATION: Exam: XR Pelvis Exam date and time: 05/13/2023 8:27 PM Age: 53 years old Clinical indication: Injury or trauma; Blunt trauma (contusions or hematomas); Does not apply; Pelvic region; Patient HX: Fall; AMS TECHNIQUE: Imaging protocol: Radiologic exam of the pelvis. Views: 1 or 2 view. COMPARISON: CT ABDOMEN PELVIS WO CON 02/21/2023 10:53 AM FINDINGS: Bones/joints: Unremarkable. No acute fracture. Soft tissues: Unremarkable. IMPRESSION: No acute findings.
--- NOTE | 2023-05-13 20:20 | XR_ITS ---
PROCEDURE INFORMATION: Exam: XR Chest Exam date and time: 05/13/2023 8:27 PM Age: 53 years old Clinical indication: Other: Altered mental status TECHNIQUE: Imaging protocol: Radiologic exam of the chest. Views: 1 view. COMPARISON: CR XR CHEST PORTABLE 02/20/2023 10:58 AM and 06/17/2022 FINDINGS: Lungs: Somewhat limited portable supine chest obtained with relatively low lung volumes. Lungs are otherwise clear. Pleural spaces: Unremarkable. No pleural effusion. No pneumothorax. Heart/Mediastinum: Heart size upper normal allowing for technique Bones/joints: Unremarkable. IMPRESSION: No acute disease but somewhat limited chest. Consider follow-up with a PA and lateral view of the chest or alternatively chest CT if persistent clinical suspicion for pulmonary abnormality.
--- NOTE | 2023-05-13 20:26 | CT_ITS ---
PROCEDURE INFORMATION: Exam: CT Head Without Contrast Exam date and time: 05/13/2023 9:13 PM Age: 53 years old Clinical indication: Injury or trauma; Fall; Blunt trauma (contusions or hematomas); Additional info: Fall AMS TECHNIQUE: Imaging protocol: Computed tomography of the head without contrast. Radiation optimization: All CT scans at this facility use at least one of these dose optimization techniques: automated exposure control; mA and/or kV adjustment per patient size (includes targeted exams where dose is matched to clinical indication); or iterative reconstruction. COMPARISON: CT CERVICAL SPINE WO CON 02/20/2023 10:38 AM FINDINGS: Brain: Mild brain volume loss. No mass, hemorrhage or acute infarct. Cerebral ventricles: No ventriculomegaly. Paranasal sinuses: Maxillary sinuses are opacified. Opacification of the right ethmoid air cells and right sphenoid sinus. Partial opacification of left ethmoid air cells. Mastoid air cells: Visualized mastoid air cells are well aerated. Bones/joints: Unremarkable. No acute fracture. Soft tissues: Unremarkable. IMPRESSION: No acute intracranial findings. Sinus disease.
[2023-05-13 20:30] VITALS: BP 148/82; PULSE 101; O2SAT 96
--- NOTE | 2023-05-13 20:30 | ECG_ITS ---
APPROVED REPORT Exam: Resting ECG HR:99 bpm ECG Measurements Heart Rate 99 AXES PA 167 P 48 QRSd 95 QRS 16 QT 350 T 34 QTc 406 Conclusion SINUS RHYTHM MODERATE ST DEPRESSION [0.05+ mV ST DEPRESSION] ABNORMAL ECG UNCONFIRMED REPORT Electronically signed by : Garo Best MD 05/14/2023 20:19:50
--- NOTE | 2023-05-13 20:32 | ED_ITS ---
Discharge Plan Disposition Patient Disposition: Admitted Chief Complaint: Altered Mental Status Prescriptions Prescriptions: No Action amitriptyline 50 mg Tablet 50 mg PO HS carvedilol 3.125 mg Tablet 3.125 mg PO BID levothyroxine 100 mcg Tablet 100 mcg PO DAILY pantoprazole 40 mg Tablet,Delayed Release (Dr/Ec) 40 mg PO DAILY duloxetine 30 mg Capsule,Delayed Release(Dr/Ec) 30 mg PO DAILY melatonin 5 mg tablet 5 mg PO HSP PRN (Reason: Sleep) oxcarbazepine 300 mg tablet 300 mg PO BID amlodipine 5 mg tablet 5 mg PO HS pyridoxine (vitamin B6) 50 mg tablet 50 mg PO DAILY nystatin 100,000 unit/gram Powder 1 applic topical QID Qty: 0 0RF ibuprofen 600 mg Tablet 600 mg PO Q6HP PRN (Reason: Fever Or Mild Pain (1-3)) 30 Days Qty: 0 0RF Xifaxan 550 mg Tablet 550 mg PO BID 30 Days Qty: 0 0RF lactulose 20 gram/30 mL Solution 20 g PO BID 30 Days Qty: 0 0RF ferrous sulfate 324 mg (65 mg iron) Tablet,Delayed Release (Dr/Ec) 324 mg PO DAILY 30 Days Qty: 0 0RF levofloxacin 750 mg tablet 750 mg PO DAILY 3 Days Qty: 3 0RF Referrals Follow up/Referrals: Provider,Referral, MD [Primary Care Provider] - See instructions Clinical Impressions Clinical Impression: Acute hepatic encephalopathy, SIRS (systemic inflammatory response syndrome) Discharge ED Provider: Umesh Harley General Adult HPI General Chief complaint: Altered Mental Status Stated complaint: UTI Time Seen by Provider: 05/13/23 20:13 Mode of Arrival: Family Vehicle Source of Information: Patient Limitations: No Limitations Description of Symptoms (Recalled from ER Triage Doc. by RN): 53 yo female presents following alteration in mental status, unknown etiology. Reportedly fell hard in the floor multiple times , and was evaluated by non-medical staff when she didn't show up for her evening med pass. Patient is alert to self. Answers yes/no questions. PMH: encephalopathy, cirrhosis, FERNANDEZ. VSS. History of Present Illness HPI narrative: Patient is a 53-year-old female with past medical history of bipolar 1 disorder, previous urinary tract infections, hypothyroidism, previous encephalopathy, cirrhosis, sleep apnea who presents emergency department for evaluation of encephalopathy. Patient has fallen multiple times in the last couple of days, was found down in a pool of her own urine, although she is confused at baseline she is more confused than normal. Patient is intermittently verbal at baseline and history is hard to obtain and is largely obtained by nursing report and staff. Related Data Home Medications Medication Instructions Recorded Confirmed amitriptyline 50 mg tablet 50 mg PO HS Sleep 05/02/22 03/07/23 carvedilol 3.125 mg tablet 3.125 mg PO BID High blood pressure 05/02/22 03/07/23 duloxetine 30 mg capsule,delayed 30 mg PO DAILY Mood 05/02/22 03/07/23 release levothyroxine 100 mcg tablet 100 mcg PO DAILY hypothyroidism 05/02/22 03/07/23 pantoprazole 40 mg tablet,delayed 40 mg PO DAILY acid reflux 05/02/22 03/07/23 release melatonin 5 mg tablet 5 mg PO HSP PRN Sleep 05/03/22 03/07/23 oxcarbazepine 300 mg tablet 300 mg PO BID Seizures 02/20/23 03/07/23 amlodipine 5 mg tablet 5 mg PO HS High Blood Pressure 02/21/23 03/07/23 pyridoxine (vitamin B6) 50 mg 50 mg PO DAILY Supplement 02/21/23 03/07/23 tablet Previous Rx's Medication Instructions Recorded ferrous sulfate 324 mg (65 mg 324 mg PO DAILY Supplement 30 days 02/23/23 iron) tablet,delayed release #0 tabs ibuprofen 600 mg tablet 600 mg PO Q6HP PRN Fever Or Mild 02/23/23 Pain (1-3) 30 days #0 tabs lactulose 20 gram/30 mL oral 20 g (30 mL) PO BID 30 days #0 mL 02/23/23 solution levofloxacin 750 mg tablet 750 mg PO DAILY 3 days #3 tabs 02/23/23 nystatin 100,000 unit/gram topical 1 applic topical QID #0 grams 02/23/23 powder rifaximin 550 mg tablet (Xifaxan) 550 mg PO BID 30 days #0 tabs 02/23/23 Allergies Allergy/AdvReac Type Severity Reaction Status Date / Time amoxicillin [From Augmentin] Allergy Verified 03/07/23 12:07 clavulanic acid Allergy Verified 03/07/23 12:07 [From Augmentin] oxycodone Allergy Verified 03/07/23 12:07 [facility] Disclaimer: The information contained in this section may have been updated after the patient was seen, as this information can be updated by other users. Medical History Anxiety Cirrhosis of liver Cognitive impairment Encephalopathy Hypothyroid Murmur, heart Obstructive sleep apnea Surgical History H/O section H/O hernia repair Hx of appendectomy Social History Smoking Status: Unknown if ever smoked alcohol intake: never current occupational status: disabled Travel in the last 8 weeks: None ROS Obtained: Yes unobtainable due to mental condition Physical Exam General General appearance: alert and in no apparent distress Head Head exam: atraumatic and normocephalic Eye Eye exam: Present PERRL and EOMI ENT ENT exam: Present mucous membranes moist Neck Neck exam: Present normal inspection Chest Chest inspection: Present normal inspection and symmetric chest wall rise Respiratory Respiratory exam: Absent normal lung sounds bilaterally (Coarse breath sounds bilaterally, no focal wheezing or stridor.) or respiratory distress Cardiovascular Cardiovascular exam: Present regular rate and normal rhythm Abdominal Exam Abdominal exam: Present soft and tenderness (Mild, diffuse) Extremities Exam Extremities exam: Present normal inspection Neurological Exam Neurological exam: Present alert and other (Spontaneously moving all extremities, asterixis present) Psychiatric Psychiatric exam: Present normal affect Skin Skin exam: Present warm and dry Medical Decision Making Darrian Inquiry Pt receiving controlled substance: No Vital Signs: 05/13/23 20:16 05/13/23 20:12 05/13/23 20:30 Temperature 102.3 F H Temperature Source Rectal Pulse Rate 98 H 101 H Pulse Rate [Right Brachial] 98 H Respiratory Rate 22 Blood Pressure 148/82 H Blood Pressure [Right Arm] 152/81 H Blood Pressure Mean 108 Blood Pressure Mean [Right Arm] 104 Blood Pressure Source [Right Arm] Automatic Cuff Blood Pressure Position [Right Arm] Sitting 02 Sat by Pulse Oximetry 96 96 96 Oxygen Delivery Method Room Air 05/13/23 22:00 Temperature Temperature Source Pulse Rate 93 H Pulse Rate [Right Brachial] Respiratory Rate Blood Pressure 164/94 H Blood Pressure [Right Arm] Blood Pressure Mean Blood Pressure Mean [Right Arm] Blood Pressure Source [Right Arm] Blood Pressure Position [Right Arm] 02 Sat by Pulse Oximetry 95 Oxygen Delivery Method Room Air Lab Data Lab Results 05/13/23 20:19: WBC 3.5 L, RBC 3.80 L, Hgb 12.9, Hct 37.8, MCV 99.5 H, MCH 33.9 H, MCHC 34.1, RDW 15.0, Plt Count 97 L, MPV 8.8, Neut % (Auto) 79.4, Lymph % (Auto) 14.0, [place] % (Auto) 4.4, Eos % (Auto) 1.7, Baso % (Auto) 0.4, Neut # (Auto) 2.8, Lymph # (Auto) 0.5 L, [place] # (Auto) 0.2, Eos # (Auto) 0.1, Baso # (Auto) 0.0, Sodium 140, Potassium 4.2, Chloride 112 H, Carbon Dioxide 25, Anion Gap 7.2, BUN 9, Creatinine 0.90, Estimated Creat Clear 90, Estimated GFR 66, Est GFR ( Amer) 80, Glucose 91, Lactate 1.8, Calcium 8.3 L, Total Bilirubin 1.4 H, AST 90 H, ALT 42, Alkaline Phosphatase 103, Ammonia 152 H, Troponin I 0.01, Total Protein 6.8, Albumin 3.2 L, Globulin 3.6 H, Albumin/Globulin Ratio 0.9 L 05/13/23 20:26: Urine Color Yellow, Urine Appearance Sl cloudy, Urine pH 8.0, Ur Specific [place] 1.020, Urine Protein 2+, Urine Glucose (UA) Negative, Urine Ketones Negative, Urine Blood 3+, Urine Nitrate Negative, Urine Bilirubin 1+ A, Urine Urobilinogen 2.0, Ur Leukocyte Esterase Negative, Urine RBC 20-50, Urine WBC Occasional, Ur Squamous Epith Cells Occasional, Urine Bacteria Trace 05/13/23 20:30: SARS-CoV-2 (PCR) Not detected, Influenza A Untype (PCR) Not detected, Influenza Type B (PCR) Not detected 05/13/23 20:32: VBG pH 7.48 H, VBG pCO2 31.1 L, VBG pO2 101.2 H, VBG HCO3 22.5 L , VBG Total CO2 23.4, VBG O2 Saturation 98.0 H, VBG Base Excess -1.1 05/13/23 21:01: Group A Strep Rapid Negative 05/13/23 20:19 05/13/23 20:19 Orders (Tests/Meds): ED MEDICATIONS Generic Name Dose Route Start Last Admin Trade Name Lenard PRN Reason Stop Dose Admin Ceftriaxone Sodium 1 gm/ 50 mls @ 100 mls/hr 05/13/23 22:00 05/13/23 22:05 Sodium Chloride IV 05/23/23 21:59 100 mls/hr Q24H NATALIE Administration Lactulose 20 gm 05/13/23 22:23 Lactulose 20gm/30ml Udc PO 05/13/23 22:24 ONCE ONE Discontinued Medications Generic Name Dose Route Start Last Admin Trade Name Lenard PRN Reason Stop Dose Admin Acetaminophen 1,000 mg 05/13/23 20:34 05/13/23 21:03 Acetaminophen 1,000mg/100ml Vial IV 05/13/23 20:35 1,000 mg ONCE ONE Administration Lactated Ringer's 1,000 mls @ 999 mls/hr 05/13/23 20:31 05/13/23 20:35 Lactated Ringer's 1000 Ml Bag IV 05/13/23 21:31 999 mls/hr .Q1H1M ONE Administration Iopamidol 75 ml 05/13/23 21:40 05/13/23 21:45 Iopamidol-370 (76%);100ml Bottle IV 05/13/23 21:41 75 ml ONCE ONE Administration Sodium Chloride 10 ml 05/13/23 21:40 05/13/23 21:45 Sodium Chloride 0.9% 10ml Syr (Rad Only) IV 05/13/23 21:41 10 ml ONCE ONE Administration ORDERS Category Date Time Status CT abdomen pelvis w con Stat Cat Scan 05/13/23 20:[address] cervical spine wo con Stat Cat Scan 05/13/23 21:[address] head/brain wo con Stat Cat Scan 05/13/23 20:26 Completed XR chest portable Stat Exams 05/13/23 20:20 Completed XR pelvis 1-2V Stat Exams 05/13/23 20:20 Completed Ammonia Stat Lab 05/13/23 20:19 Completed Complete Blood Count Auto Diff Stat Lab 05/13/23 20:19 Completed Comprehensive Metabolic Panel Stat Lab 05/13/23 20:19 Completed Lactic Acid Stat Lab 05/13/23 20:19 Completed Rapid PCR Covid and Flu A/B Stat Lab 05/13/23 20:30 Completed Strep Scrn Group A (Rapid) Stat Lab 05/13/23 21:01 Completed Troponin I Q3H Lab 05/13/23 23:30 Ordered Troponin I Q3H Lab 05/14/23 02:30 Ordered Troponin I Stat Lab 05/13/23 20:19 Completed Urinalysis and Microscopic Stat Lab 05/13/23 20:26 Completed Blood Culture Stat Micro 05/13/23 20:56 Received Strep Screen Confirmation Stat Micro 05/13/23 21:01 Received VBG [Venous Blood Gas] Stat RT 05/13/23 20:32 Completed ECG Data Tracing #1: Independently interpreted by me, rate is 99, rhythm is regular, axis is normal, no ST elevation in anatomical contiguous leads, QTc 406. Medical Decision Narrative: In summary patient is a 53-year-old female with past medical history described above who presents emergency department for evaluation of encephalopathy and falls. Patient is hemodynamically stable and nontoxic-appearing upon arrival, febrile 102.3 ?F. Differential diagnosis includes urinary tract infection, lung infection, abdominal pathology, intracranial hemorrhage, pneumonia, among others. Broad workup will be conducted with hematologic labs, CT head and cervical spine, CT abdomen pelvis IV contrast, urinalysis, blood cultures, respiratory swab, VBG, EKG, strep swab. Initial interventions include IV Tylenol, crystalloid bolus. Initial workup reviewed by me, hematologic labs are remarkable for leukopenia which is chronic, thrombocytopenia which is chronic, respiratory alkalosis, no critical electrolyte abnormalities, significant hyperammonemia which can explain patient's altered mental status and respiratory alkalosis secondary to hyperventilation. Urinalysis interpreted by me, hematuria in the setting of catheterization, likely traumatic, not consistent with infection. However given that patient is SIRS positive ceftriaxone will be administered in the setting of fever with decompensated cirrhosis. Patient will answer some questions and does not have a headache, has no meningismus on exam and is for ranging her head freely therefore LP was considered but will be deferred at this point. Aggressive sepsis bolus fluids will be deferred given that patient is well-perfused. CT imaging demonstrates cirrhosis with splenomegaly and varices, incidental 13 mm low-density lesion in the midpole the right kidney which is unchanged from prior. CT head demonstrates sinus disease without evidence of acute intracranial abnormality. [id number] ultrasound at bedside shows no tappable fluid ascitic pocket for diagnostic paracentesis. Given hepatic encephalopathy and SIRS positive status the case was discussed with hospital medicine regarding management who admit the patient their service for continued evaluation at this time. Critical Care Critical Care Time Critical Care Time: No
--- NOTE | 2023-05-13 20:32 | CT_ITS ---
PROCEDURE INFORMATION: Exam: CT Abdomen And Pelvis With Contrast Exam date and time: 05/13/2023 9:25 PM Age: 53 years old Clinical indication: Fever and other: Hematuria; Additional info: Fever, nonverbal encephalopathy, hematuria TECHNIQUE: Imaging protocol: Computed tomography of the abdomen and pelvis with contrast. Radiation optimization: All CT scans at this facility use at least one of these dose optimization techniques: automated exposure control; mA and/or kV adjustment per patient size (includes targeted exams where dose is matched to clinical indication); or iterative reconstruction. Contrast material: ISOVUE; Contrast volume: 75 ml; Contrast route: IV; COMPARISON: CT ABDOMEN PELVIS WO CON 02/21/2023 10:53 AM and 06/17/2022 FINDINGS: Lungs: Lung bases are clear. Liver: Changes of cirrhosis redemonstrated. Subcentimeter low-density lesion posterior dome of liver on image 17 which is unchanged from 06/17/2022 and 02/02/2022 too small to characterize but consistent with a benign process. Gallbladder and bile ducts: Status post cholecystectomy. No evident bile duct dilatation allowing for prior cholecystectomy. Pancreas: Normal. No ductal dilation. Spleen: Splenomegaly measuring 16 cm redemonstrated. Adrenal glands: Normal. No mass. Kidneys and ureters: 13 mm low-density lesion with a density of 27 in the posterior mid pole of the right kidney on image 52 of series 3 similar in size to prior CT of 05/03/2022. This is difficult to see on the prior noncontrast CTs. Some additional subcentimeter low-density lesions are noted in both kidneys too small to characterize but likely cysts. Kidneys otherwise unremarkable. Stomach and bowel: Unremarkable. No obstruction. No mucosal thickening. Appendix: Appendix surgically absent. Intraperitoneal space: Unremarkable. No free air. No significant fluid collection. Vasculature: Extensive varices in the mid and upper abdomen around the spleen and stomach and in the anterior upper midabdomen and gastroesophageal region. Lymph nodes: Unremarkable. No enlarged lymph nodes. Urinary bladder: Unremarkable as visualized. Reproductive: Unremarkable as visualized. Bones/joints: Unremarkable. No acute fracture. Soft tissues: Unremarkable. IMPRESSION: 1. No acute abnormalities of the abdomen and pelvis. 2. Cirrhosis. Associated splenomegaly and extensive varices as detailed compatible with portal venous hypertension. 3. Incidental 13 mm indeterminate low-density lesion in the midpole the right kidney with a density greater than fluid. This is unchanged from prior CT from 05/03/2022 and likely a hyperdense cyst. Consider nonemergent ultrasound of the kidneys for further assessment. 4. Additional nonemergent findings as above.
[2023-05-13] MEDS: LACTATED RINGERS 1000ML 1,000 ML 999 ML IV (20:35)
[2023-05-13 20:36] LABS: Microscopic, Urine URINE MICROSCOPIC (MICROSCOPIC)
[2023-05-13 20:38] LABS: Basophils % 0.4 % (0.1-2.0); Eosinophils # 0.1 K/mm3 (0.0-0.4); Eosinophils % 1.7 % (0.1-12.0); Hematocrit 37.8 % (37.0-47.0); Hemoglobin 12.9 g/dL (12.2-16.2); Lymphocytes # 0.5 K/mm3 (0.7-4.5); Mean Corpuscular HGB Conc 34.1 g/dL (31.8-35.4); Mean Corpuscular Hemoglobin 33.9 pg (27.0-31.2); Mean Corpuscular Volume 99.5 fl (81-99); Mean Platelet Volume 8.8 fl (7.4-10.4); Monocytes # 0.2 K/mm3 (0.1-1.0); Monocytes % 4.4 % (1.7-9.3); Neutrophils # 2.8 K/mm3 (1.8-7.8); Neutrophils % 79.4 % (37.0-80.0); Platelet Count 97 K/mm3 (142-424); White Blood Count 3.5 K/mm3 (4.8-10.8)
[2023-05-13 20:40] LABS: Appearance,Urine SL CLOUDY (Clear); Blood, Urine 3+ (Negative); Color,Urine YELLOW (Yellow); Glucose,Urine (UA) Negative (Negative); Ketones,Urine Negative (Negative); Leukocyte Esterase,Urine Negative (Negative); Nitrate,Urine Negative (Negative); Protein,Urine 2+ (Negative)
[2023-05-13 20:40] LABS: Chloride 112 mmol/L (98-107)
[2023-05-13 20:40] LABS: Coronavirus 19, PCR Not Detected (NotDetected); Influenza A, PCR Not Detected (NotDetected); Influenza B, PCR Not Detected (NotDetected)
[2023-05-13 20:41] LABS: VBG Base Excess -1.1 mmol/L (-2.4-2.3); VBG HCO3 22.5 mmol/L (23-30); VBG PCO2 31.1 mmol/L (35-51); VBG PH 7.48 mmol/L (7.31-7.41); VBG PO2 101.2 mmol/L (28-40); VBG Total CO2 23.4 mmol/L (23-27)
[2023-05-13 20:41] LABS: Bilirubin,Urine 1+ (Negative)
[2023-05-13 20:41] LABS: Potassium 4.2 mmoL/L (3.5-5.1); Sodium 140 mmol/L (136-145)
[2023-05-13 20:44] LABS: Alanine Aminotransferase 42 U/L (12-78); Albumin Level 3.2 g/dl (3.5-5.0); Albumin/Globulin Ratio 0.9 (1.1-1.8); Alkaline Phosphatase 103 U/L (38-126); Anion Gap 7.2 mEq/L (5-15); Aspartate Amino Transferase 90 U/L (14-36); Bilirubin,Total 1.4 mg/dl (0.2-1.3); Blood Urea Nitrogen 9 mg/dl (7-17); Calcium 8.3 mg/dl (8.4-10.2); Carbon Dioxide 25 mmol/L (22.0-30.0); Creatinine Clearance Estimated 90 mL/min (50-200); Estimated Glomerular Filt Rate 66 ml/min (>60); GFR (African American) 80 ML/MIN (>60); Globulin 3.6 g/dL (1.3-3.2); Glucose 91 mg/dl (74-100); Total Protein,Serum 6.8 g/dl (6.3-8.2)
[2023-05-13 20:45] LABS: Ammonia 152 umol/L (9-30); Lactic Acid 1.8 mmol/L (0.7-2.1)
[2023-05-13 20:52] LABS: Bacteria,Urine Trace /lpf; RBC,Urine 20-50 #/hpf (0-3); Squamous Epithelial Cell,Urine Occasional #/hpf (0-5); WBC,Urine Occasional #/hpf (0-3)
[2023-05-13 20:59] LABS: Troponin I 0.01 ng/ml (0.00-0.034)
[2023-05-13] MEDS: ACETAMINOPHEN 1,000MG/100ML VIAL 1000 MG IV (21:03)
[2023-05-13 21:26] LABS: Strep Scrn Group A (Rapid) Negative (Negative)
--- NOTE | 2023-05-13 21:38 | CT_ITS ---
PROCEDURE INFORMATION: Exam: CT Cervical Spine Without Contrast Exam date and time: 05/13/2023 9:18 PM Age: 53 years old Clinical indication: Injury or trauma; Fall; Blunt trauma; Additional info: Fall AMS TECHNIQUE: Imaging protocol: Computed tomography of the cervical spine without contrast. Radiation optimization: All CT scans at this facility use at least one of these dose optimization techniques: automated exposure control; mA and/or kV adjustment per patient size (includes targeted exams where dose is matched to clinical indication); or iterative reconstruction. COMPARISON: CT CERVICAL SPINE WO CON 02/20/2023 10:38 AM FINDINGS: Bones/joints: No acute fracture. Normal alignment. No significant disc bulge or herniation. No severe spinal canal stenosis. No significant neural foraminal narrowing. Lungs: Lung apices are normal. Soft tissues: Unremarkable. IMPRESSION: No acute findings.
[2023-05-13] MEDS: IOPAMIDOL-370 (76%);100ML BOTTLE 75 ML IV (21:45)
[2023-05-13] MEDS: SODIUM CHLORIDE 0.9% 10ML SYR (RAD ONLY) 10 ML IV (21:45)
[2023-05-13 22:00] VITALS: BP 164/94; PULSE 93; O2SAT 95
[2023-05-13] MEDS: CEFTRIAXONE 1 GM 1 GM in 0.9 % SODIUM CHLORIDE 50 ML IV (22:05)
--- NOTE | 2023-05-13 22:27 | P.HP_ITS ---
History of Present Illness *Admission Date: 05/13/23 *Reason for visit:: AMS *History of present illness: This is a 53-year-old female who resides at [facility] with PMHx of cirrhosis, previous encephalopathy bipolar, on numerous psych medications. hypothyroidism, presented to the ED via EMS after being found down on the ground at her facility. History is limited due to patient mental states. Per ED documentation and report from facility patient, Patient has fallen multiple times in the last couple of days, was found down in a puddle of her own urine. She opens her eyes but is not oriented and appears altered from her baseline. Admitted for further management and treatment. [facility] Disclaimer: The information contained in this section may have been updated after the patient was seen, as this information can be updated by other users. Medical History (Updated 05/14/23 @ 06:35 by Dayday Barrow APRN) Anxiety Cirrhosis of liver Cognitive impairment Encephalopathy Hypothyroid Murmur, heart Obstructive sleep apnea Surgical History H/O section H/O hernia repair Hx of appendectomy Social History (Updated 05/13/23 @ 23:15 by Sandi Espinoza RN) Smoking Status: Unknown if ever smoked alcohol intake: never current occupational status: disabled Travel in the last 8 weeks: None Review of Systems Review of Systems Review of systems:: unable to obtain Meds Home Medications and Allergies Home Medications Medication Instructions Recorded Confirmed Type amitriptyline 50 mg tablet 50 mg PO HS 05/02/22 05/14/23 History carvedilol 3.125 mg tablet 3.125 mg PO BID 05/02/22 05/14/23 History duloxetine 30 mg capsule,delayed 30 mg PO DAILY 05/02/22 05/14/23 History release levothyroxine 100 mcg tablet 100 mcg PO AM 05/02/22 05/14/23 History pantoprazole 40 mg tablet,delayed 40 mg PO DAILY 05/02/22 05/14/23 History release melatonin 5 mg tablet 5 mg PO HS 05/03/22 05/14/23 History oxcarbazepine 300 mg tablet 300 mg PO BID 02/20/23 05/14/23 History amlodipine 5 mg tablet 5 mg PO DAILY 02/21/23 05/14/23 History pyridoxine (vitamin B6) 50 mg 50 mg PO DAILY 02/21/23 05/14/23 History tablet acetaminophen 325 mg tablet 325 mg PO QID PRN Pain 05/14/23 05/14/23 History cyclobenzaprine 5 mg tablet 5 mg PO TID PRN Muscle Pain 05/14/23 05/14/23 Histo ry ferrous sulfate 324 mg (65 mg 324 mg PO DAILY 05/14/23 05/14/23 History iron) tablet,delayed release hydroxyzine HCl 25 mg tablet 25 mg PO TID PRN Anxiety 05/14/23 05/14/23 History New Prescriptions to Start Prescriptions: Allergies Allergy/AdvReac Type Severity Reaction Status Date / Time amoxicillin [From Augmentin] Allergy Verified 03/07/23 12:07 clavulanic acid Allergy Verified 03/07/23 12:07 [From Augmentin] oxycodone Allergy Verified 03/07/23 12:07 Exam Data for Last 24 hours Vital signs and Labs for Last 24 Hours: Temp Pulse Resp BP Pulse Ox O2 Del Method 102.3 F H 93 H 22 164/94 H 95 Room Air 05/13/23 20:12 05/13/23 22:00 05/13/23 20:16 05/13/23 22:00 05/13/23 22:00 05/13/23 22:00 Laboratory Results - last 24 hr 05/13/23 20:19: WBC 3.5 L, RBC 3.80 L, Hgb 12.9, Hct 37.8, MCV 99.5 H, MCH 33.9 H, MCHC 34.1, RDW 15.0, Plt Count 97 L, MPV 8.8, Neut % (Auto) 79.4, Lymph % (Auto) 14.0, [place] % (Auto) 4.4, Eos % (Auto) 1.7, Baso % (Auto) 0.4, Neut # (Auto) 2.8, Lymph # (Auto) 0.5 L, [place] # (Auto) 0.2, Eos # (Auto) 0.1, Baso # (Auto) 0.0, Sodium 140, Potassium 4.2, Chloride 112 H, Carbon Dioxide 25, Anion Gap 7.2, BUN 9, Creatinine 0.90, Estimated Creat Clear 90, Estimated GFR 66, Est GFR ( Amer) 80, Glucose 91, Lactate 1.8, Calcium 8.3 L, Total Bilirubin 1.4 H, AST 90 H, ALT 42, Alkaline Phosphatase 103, Ammonia 152 H, Troponin I 0.01, Total Protein 6.8, Albumin 3.2 L, Globulin 3.6 H, Albumin/Globulin Ratio 0.9 L 05/13/23 20:26: Urine Color Yellow, Urine Appearance Sl cloudy, Urine pH 8.0, Ur Specific [place] 1.020, Urine Protein 2+, Urine Glucose (UA) Negative, Urine Ketones Negative, Urine Blood 3+, Urine Nitrate Negative, Urine Bilirubin 1+ A, Urine Urobilinogen 2.0, Ur Leukocyte Esterase Negative, Urine RBC 20-50, Urine WBC Occasional, Ur Squamous Epith Cells Occasional, Urine Bacteria Trace 05/13/23 20:30: SARS-CoV-2 (PCR) Not detected, Influenza A Untype (PCR) Not detected, Influenza Type B (PCR) Not detected 05/13/23 20:32: VBG pH 7.48 H, VBG pCO2 31.1 L, VBG pO2 101.2 H, VBG HCO3 22.5 L , VBG Total CO2 23.4, VBG O2 Saturation 98.0 H, VBG Base Excess -1.1 05/13/23 21:01: Group A Strep Rapid Negative I & O for Last 24 hours: Intake & Output 05/10/23 05/11/23 05/12/23 05/13/23 23:59 23:59 23:59 23:59 Weight 78.018 kg Constitutional Constitutional: mild distress, obese, chronically ill appearing and somnolent *Routine HEENT Exam Head: Present normocephalic Eye: Present EOMI and PERRL ENT: Present mucous membranes dry *Routine Neck Exam Neck: Present supple; Absent lymphadenopathy *Routine Respiratory Exam Respiratory: Present CTA bilaterally; Absent rhonchi or wheezes *Routine Cardiovascular Exam Cardiovascular: Present tachycardia *Routine Abdominal Exam Abdominal: Present soft and normoactive bowel sounds; Absent tenderness *Routine Rectal Exam Rectal:: deferred *Routine Genitalia Exam Genitalia:: deferred *Routine Extremities Exam Extremities: Absent cyanosis, clubbing or edema *Routine Skin Exam Skin: Present warm and rash Comments: Diffuse rash on pannus with erythema, most prominent in fold of abdomen *Routine Neurological Exam Neurological: Present altered mental status and moving all extremities Assessment and Plan *Assessment and plan (1) Acute hepatic encephalopathy: Status: Acute Category: Medical Code(s): K76.82 - Hepatic encephalopathy (2) Cirrhosis of liver: Status: Acute Qualifiers: Ascites presence: unspecified Hepatic cirrhosis type: unspecified hepatic cirrhosis Qualified Code(s): K74.60 - Unspecified cirrhosis of liver Category: Medical Code(s): K74.60 - Unspecified cirrhosis of liver (3) Hypothyroidism: Status: Chronic Qualifiers: Hypothyroidism type: acquired Qualified Code(s): E03.9 - Hypothyroidism, unspecified Category: Medical Code(s): E03.9 - Hypothyroidism, unspecified (4) Hypertension: Status: Chronic Qualifiers: Hypertension type: primary hypertension Qualified Code(s): I10 - Essential (primary) hypertension Category: Medical Code(s): I10 - Essential (primary) hypertension (5) Bipolar 1 disorder: Status: Chronic Category: Medical Code(s): F31.9 - Bipolar disorder, unspecified Plan 52-year-old female who resides at [facility]. Patient is altered and encephal opathic. History of cirrhosis and psychiatric comorbidities. on arrival initial work up included ammonia level, found to be 152. patient was screeneed head to toe to rule out trauma or acute conditions. imaging reviewed. and agreed with radiology report. Discussed case with ED provider , requested admission and treatment for encephalopathy. Medicine agreed to admit. Continues to show slowly improvement in mentation at the time of assessment but not able to recall or maintain mindful conversation. Problems addressed as follows: -Acute hepatic encephalopathy . Cirrhosis Ammonia obtained, elevated on arrival 152. Continues to have bowel movements. Continuing lactulose. Lactulose 4 times a day. rifaximin 550 mg twice daily. Repeat CMP ordered for the morning. Kidney function normal. -Bipolar, hypothyroidism and HTN: continue oxcarbazepine per home regimen 300 mg daily. Continue levothyroxine 100 mg daily for hypothyroid Continue carvedilol 3.125 mg twice daily for hypertension Continue amlodipine 5 mg daily for hypertension Continue Cymbalta 30 mg daily for depression Continue pantoprazole 40 mg daily for GERD Full code lovenox for DVT ppx. advance diet as mentation improves Rounded on patient after nurse practitioner. Personally examined and interviewed patient. Agree with exam findings and care plan as documented.
[2023-05-13] MEDS: LACTULOSE 20GM/30ML UDC 20 GM PO (22:29)
--- NOTE | 2023-05-13 22:29 | PC.NURSE ---
discussed plan of care with patient to the best of cognitive understanding. contacted pablo for a bed assignment
--- NOTE | 2023-05-13 22:44 | PC.NURSE ---
Nurse to nurse report to Ruchi ERVIN
[2023-05-13 22:45] VITALS: BP 132/86; PULSE 90; RESP 18; TEMP 37; O2SAT 94
[2023-05-13] MEDS: 0.9 % SODIUM CHLORIDE 1000ML 1,000 ML 50 ML IV (23:06)
--- NOTE | 2023-05-13 23:15 | PC.NURSE ---
pt. admission limited due to AMS
[2023-05-14] VITALS: BP 132/86; PULSE 90; RESP 16; TEMP 37; O2SAT 92
[2023-05-14 00:09] LABS: Troponin I < 0.01 ng/ml (0.00-0.034)
[2023-05-14 03:24] LABS: Troponin I < 0.01 ng/ml (0.00-0.034)
[2023-05-14 04:00] VITALS: BP 146/69; PULSE 80; RESP 18; TEMP 36.7; O2SAT 93; BMI 41.9
--- NOTE | 2023-05-14 06:04 | PC.NURSE ---
Pt is alert to name and birthday only. 0500 pt stated she needed to urinate, placed on a bedpan, pt could not urinate. Bladder scanned, 749mL present. Pt tried to urinate and had a bowel movement with scant urine out. Rescanned bladder, 719mL present. Per protocol, @0515 in and out straight cathed with 750mL out, UA send to lab, urine was brown and foul odor. Pt has had no complaints this shift. Pt is excoriated under stomach folds, notified MD, new orders received. Bed alarm on and functioning, call light in reach.
[2023-05-14 07:25] LABS: Basophils % 0.5 % (0.1-2.0); Eosinophils # 0.1 K/mm3 (0.0-0.4); Eosinophils % 2.5 % (0.1-12.0); Hematocrit 34.2 % (37.0-47.0); Hemoglobin 11.7 g/dL (12.2-16.2); Lymphocytes # 0.5 K/mm3 (0.7-4.5); Lymphocytes % 22.1 % (10-50); Mean Corpuscular HGB Conc 34.3 g/dL (31.8-35.4); Mean Corpuscular Hemoglobin 33.6 pg (27.0-31.2); Mean Corpuscular Volume 97.9 fl (81-99); Mean Platelet Volume 8.2 fl (7.4-10.4); Monocytes # 0.2 K/mm3 (0.1-1.0); Neutrophils # 1.7 K/mm3 (1.8-7.8); Neutrophils % 67.8 % (37.0-80.0); Platelet Count 76 K/mm3 (142-424); Red Blood Count 3.49 M/mm3 (4.20-5.40); Red Cell Distribution Width 14.8 % (11.5-17.5); White Blood Count 2.4 K/mm3 (4.8-10.8)
[2023-05-14 07:34] LABS: Alanine Aminotransferase 33 U/L (12-78); Albumin Level 2.5 g/dl (3.5-5.0); Albumin/Globulin Ratio 0.8 (1.1-1.8); Alkaline Phosphatase 87 U/L (38-126); Anion Gap 5.4 mEq/L (5-15); Aspartate Amino Transferase 60 U/L (14-36); Bilirubin,Total 1.3 mg/dl (0.2-1.3); Blood Urea Nitrogen 8 mg/dl (7-17); Calcium 7.6 mg/dl (8.4-10.2); Carbon Dioxide 27 mmol/L (22.0-30.0); Chloride 112 mmol/L (98-107); Creatinine Clearance Estimated 56 mL/min (50-200); Estimated Glomerular Filt Rate 75 ml/min (>60); GFR (African American) 91 ML/MIN (>60); Globulin 3.3 g/dL (1.3-3.2); Glucose 85 mg/dl (74-100); Magnesium 1.9 mg/dl (1.6-2.3); Potassium 3.4 mmoL/L (3.5-5.1); Sodium 141 mmol/L (136-145); Total Protein,Serum 5.8 g/dl (6.3-8.2)
[2023-05-14 07:55] VITALS: BP 139/75; PULSE 90; RESP 18; TEMP 36.8; O2SAT 96
[2023-05-14 08:05] LABS: Ammonia 113 umol/L (9-30)
[2023-05-14] MEDS: RIFAXIMIN 550MG TABLET 550 MG PO ×2 (09:30→20:34)
[2023-05-14] MEDS: NYSTATIN TOPICAL POWDER 30GM TP ×4 (09:30→20:35)
[2023-05-14] MEDS: LACTULOSE 20GM/30ML UDC 20 GM PO ×4 (09:30→20:39)
--- NOTE | 2023-05-14 09:32 | P.CONPHA_ITS ---
Pharmacy Intervention Comments: [facility]
--- NOTE | 2023-05-14 09:32 | HMH.PHAINT1 ---
Pharmacy Intervention Comments: [facility].
--- NOTE | 2023-05-14 10:15 | HMH.OTEV ---
OT Inpatient Evaluation Rehab OT IP Evaluation Start: 05/14/23 07:12 Freq: ONCE Status: Active Protocol: Document 05/14/23 10:05 CATRINA (Rec: 05/14/23 10:15 [facility] [id number]) Rehab OT IP Assessment Subjective History Pt oriented x 3 on arrival. Pt agreeable to engage in therapy evaluation. Pt admitted on 05/13/23 due to hepatic encephalopathy. Pt reports prior to being in the hospital, she lived at [facility]. Pt claims normally she is independent with all ADLs and staff completes IADLs. Pt also reports she does not use any type of AE during functional transfers. This is a 53-year-old female who resides at [facility] with PMHx of cirrhosis, previous encephalopathy bipolar, on numerous psych medications. hypothyroidism, presented to the ED via EMS after being found down on the ground at her facility. History is limited due to patient mental states. Per ED documentation and report from facility patient, Patient has fallen multiple times in the last couple of days, was found down in a puddle of her own urine. She opens her eyes but is not oriented and appears altered from her baseline. Admitted for further management and treatment. Subjective I think they said I passed out. Objective Patient Orientation Person,Place,Birthday Right Upper Extremity Gross ROM WFL Left Upper Extremity Gross ROM WFL Bed Mobility bed mobility-scooting,bed mobility - supine/sit Assist Level Supervision/Stand by Transfer Training Sit/Stand Transfer Assist Level Supervision/Stand by Lower Body Dressing Ability Standby Assistance Rehab OT IP prob,goals,plan Problems Date of Evaluation: 05/14/23 Rehab Potential Rehab Potential Innapropriate for Skilled Therapy Discharge Plan OT Discharge Plan Pt appears to be at her baseline with functional transfers and ADLs. Pt can return back to [facility] once she is medically stable per physician. Eval Complexity Eval Charge Codes 25280 - Low Complexity PHYSICIAN CERTIFICATION: I certify the specified therapy services for Trish Oconnor are required, authorized, and reviewed every 30 days.
--- NOTE | 2023-05-14 11:38 | SW/DCPLANNER ---
Addendum entered by [facility] 05/16/23 12:31: I have arranged [employer] for this patient. Addendum entered by [facility] 05/16/23 10:03: I have updated Marybel Houser that patient will return today. I will arrange [employer] once patient is ready for discharge. Addendum entered by [facility] 05/15/23 10:19: I have updated Marybel Houser that patient is not ready for discharge today. Original Note: This patient currently resides at [facility]. PT/OT evaluated patient and stated that she could return to [facility] once medically stable. I will update Marybel Houser regarding discharge plans. Discharge date is unknown at this time.
[2023-05-14] MEDS: OXcarbazepine 300MG TABLET 300 MG PO ×2 (12:10→20:34)
--- NOTE | 2023-05-14 12:26 | HMH.PTEV ---
Physical Therapy Evaluation Rehab PT IP Evaluation Start: 05/14/23 07:12 Freq: ONCE Status: Active Protocol: Document 05/14/23 12:23 IVELISSE (Rec: 05/14/23 12:26 PHOYASHIRA [id number]) Subjective/History History History 53 yowf adm to [facility] with hepatic encephalopathy. PMH of cirrhosis, bi-polar disorder, hypothyroidism. S[facility] and is generally independent with all mobility prior to adm. Subjective Subjective Pt reports no c/o this am except mild dizziness with mobility. New diagnosis of cancer in past 12 No months? Rehab PT IP Eval Objective Appearance Patient Behavior Appropriate Patient Orientation Person,Place Difficulty following instructions none Speech Pattern Clear Ambulation Patient Able to Ambulate Yes Ambulation Observation IP General Gait Pattern Observation Shuffling Step Ambulation Distance (feet) 30 Ambulation Assistive Device None Ambulation Ability Supervision/Stand by Balance Ability to Arise Able, uses arms to help Sitting Balance Steady, safe Standing Balance Steady, wide stance Dynamic Sitting Balance Ability Good Dynamic Standing Balance Ability Good Transfers Bed Transfer Ability Supervision/Stand by Chair Transfer Ability Supervision/Stand by Sit to Stand Bed Transfer Ability Supervision/Stand by Sit to Stand Chair Transfer Ability Supervision/Stand by Rehab PT IP prob,goals,plan Problems Date of Evaluation: 05/14/23 Discharge Plan PT Discharge Plan Pt is appropriate to return to [facility] once medically stable for d/c. No current inpatient therapy needs. Eval Complexity Eval Charge Codes 53561 - High Complexity PHYSICIAN CERTIFICATION: I certify the specified therapy services for Trish Oconnor are required, authorized, and reviewed every 30 days.
[2023-05-14 15:22] VITALS: BP 119/75; PULSE 71; RESP 18; TEMP 36.8; O2SAT 97
[2023-05-14] MEDS: ACETAMINOPHEN 325MG TAB 650 MG PO ×2 (15:36→19:44)
--- NOTE | 2023-05-14 17:36 | PC.NURSE ---
Addendum entered by Alaina Arroyo RN 05/14/23 18:24: holguin cath inserted, pt tolerated well. 900ml tea colored/brown uop. Original Note: PT HAS HAD NO UOP SO FAR THIS SHIFT. BLADDER SCAN SHOWING 800ML OF URINE IN BLADDER. PER BETHANY INSERT HOLGUIN CATH.
--- NOTE | 2023-05-14 19:13 | P.PN_ITS ---
Subjective *Date: 05/14/23 *Time: 21:13 Interval history: Patient interactive on exam, oriented to self and seems to have an understanding she is at a hospital. Stable on room air. Afebrile. Asterixis on exam. Awake and alert. No acute distress or obtundation. Hungry and would like to eat. Medical Exam Vital signs and Labs for Last 24 Hours: Vital Signs Temp Pulse Pulse Resp BP BP Pulse Ox 05/14/23 18:25 05/14/23 17:00 05/14/23 15:00 05/14/23 15:22 98.3 F 71 18 119/75 97 05/14/23 13:00 05/14/23 11:00 05/14/23 09:00 05/14/23 08:00 05/14/23 07:55 98.2 F 90 18 139/75 96 05/14/23 06:51 05/14/23 04:00 98.1 F 80 18 146/69 H 93 L 05/14/23 05:00 05/14/23 02:51 05/14/23 00:49 05/14/23 00:00 98.6 F 90 16 132/86 92 L 05/13/23 23:30 05/13/23 23:00 05/13/23 22:45 98.6 F 90 18 132/86 05/13/23 22:00 93 H 164/94 H 95 05/13/23 20:30 101 H 148/82 H 96 05/13/23 20:12 102.3 F H 98 H 96 05/13/23 20:16 98 H 22 152/81 H 96 O2 Del Method 05/14/23 18:25 Nasal Cannula 05/14/23 17:00 Room Air 05/14/23 15:00 Room Air 05/14/23 15:22 Room Air 05/14/23 13:00 Room Air 05/14/23 11:00 Room Air 05/14/23 09:00 Room Air 05/14/23 08:00 Room Air 05/14/23 07:55 Room Air 05/14/23 06:51 Room Air 05/14/23 04:00 Room Air 05/14/23 05:00 Room Air 05/14/23 02:51 Room Air 05/14/23 00:49 Room Air 05/14/23 00:00 Room Air 05/13/23 23:30 Room Air 05/13/23 23:00 Room Air 05/13/23 22:45 Room Air 05/13/23 22:00 Room Air 05/13/23 20:30 05/13/23 20:12 05/13/23 20:16 Room Air Intake and Output 05/14/23 05/14/23 05/14/23 07:59 15:59 23:59 Intake Total 325 / 1345 480 / 1345 540 / 1345 Output Total 750 / 1650 900 / 1650 Balance -425 / -305 480 / -305 -360 / -305 Intake: Intake, Oral Amount 480 / 1020 540 / 1020 Intake, Total IV Amount 325 / 325 0.9 % Sodium Chloride 1000ML 1, 325 / 325 000 ml @ 50 mls/hr IV .Q20H [facility] Rx#:[id number] Output: Output, Urine Amount 750 / 1650 900 / 1650 Other: Number of Bowel Movements 1 Weight 94.404 kg Patient Weight 05/14/23 23:59 Weight 94.404 kg Laboratory Results - last 24 hr 05/13/23 20:19: WBC 3.5 L, RBC 3.80 L, Hgb 12.9, Hct 37.8, MCV 99.5 H, MCH 33.9 H, MCHC 34.1, RDW 15.0, Plt Count 97 L, MPV 8.8, Neut % (Auto) 79.4, Lymph % (Auto) 14.0, [place] % (Auto) 4.4, Eos % (Auto) 1.7, Baso % (Auto) 0.4, Neut # (Auto) 2.8, Lymph # (Auto) 0.5 L, [place] # (Auto) 0.2, Eos # (Auto) 0.1, Baso # (Auto) 0.0, Sodium 140, Potassium 4.2, Chloride 112 H, Carbon Dioxide 25, Anion Gap 7.2, BUN 9, Creatinine 0.90, Estimated Creat Clear 90, Estimated GFR 66, Est GFR ( Amer) 80, Glucose 91, Lactate 1.8, Calcium 8.3 L, Total Bilirubin 1.4 H, AST 90 H, ALT 42, Alkaline Phosphatase 103, Ammonia 152 H, Troponin I 0.01, Total Protein 6.8, Albumin 3.2 L, Globulin 3.6 H, Albumin/Globulin Ratio 0.9 L 05/13/23 20:26: Urine Color Yellow, Urine Appearance Sl cloudy, Urine pH 8.0, Ur Specific [place] 1.020, Urine Protein 2+, Urine Glucose (UA) Negative, Urine Ketones Negative, Urine Blood 3+, Urine Nitrate Negative, Urine Bilirubin 1+ A, Urine Urobilinogen 2.0, Ur Leukocyte Esterase Negative, Urine RBC 20-50, Urine WBC Occasional, Ur Squamous Epith Cells Occasional, Urine Bacteria Trace 05/13/23 20:30: SARS-CoV-2 (PCR) Not detected, Influenza A Untype (PCR) Not detected, Influenza Type B (PCR) Not detected 05/13/23 20:32: VBG pH 7.48 H, VBG pCO2 31.1 L, VBG pO2 101.2 H, VBG HCO3 22.5 L , VBG Total CO2 23.4, VBG O2 Saturation 98.0 H, VBG Base Excess -1.1 05/13/23 21:01: Group A Strep Rapid Negative 05/13/23 23:37: Troponin I < 0.01 05/14/23 02:50: Troponin I < 0.01 05/14/23 06:45: WBC 2.4 L D, RBC 3.49 L, Hgb 11.7 L, Hct 34.2 L, MCV 97.9, MCH 33.6 H, MCHC 34.3, RDW 14.8, Plt Count 76 L, MPV 8.2, Neut % (Auto) 67.8, Lymph % (Auto) 22.1, [place] % (Auto) 7.0, Eos % (Auto) 2.5, Baso % (Auto) 0.5, Neut # (Auto) 1.7 L, Lymph # (Auto) 0.5 L, [place] # (Auto) 0.2, Eos # (Auto) 0.1, Baso # (Auto) 0.0, Sodium 141, Potassium 3.4 L, Chloride 112 H, Carbon Dioxide 27, Anion Gap 5.4, BUN 8, Creatinine 0.80, Estimated Creat Clear 56, Estimated GFR 75, Est GFR ( Amer) 91, Glucose 85, Calcium 7.6 L, Magnesium 1.9, Total Bilirubin 1.3, AST 60 H D, ALT 33, Alkaline Phosphatase 87, Ammonia 113 H, Total Protein 5.8 L, Albumin 2.5 L D, Globulin 3.3 H, Albumin/Globulin Ratio 0.8 L I & O for Labs for Last 24 Hours: Intake & Output 05/11/23 05/12/23 05/13/23 05/14/23 23:59 23:59 23:59 23:59 Intake Total 1345 / 1345 Output Total 1650 / 1650 Balance -305 / -305 Weight 78.018 kg 94.404 kg Constitutional: Present no acute distress, obese and chronically ill appearing Head: Present atraumatic and normocephalic ENT: Present normal exam Neck: Present normal inspection Respiratory: Present CTA bilaterally; Absent accessory muscle use, rhonchi, wheezes or crackles Cardiac: Present Reg Rate and Rhythm and S1/S2 GI: Present soft; Absent distention or tenderness Rectal (female): Present deferred (female): Present deferred Extremities: Present normal inspection Skin: Present intact; Absent cyanosis or erythema Neuro: Present alert, awake and moves all extremities Comment:: Asterixis present in hands Assessment and Plan *Assessment and plan (1) Acute hepatic encephalopathy: Status: Acute Category: Medical Code(s): K76.82 - Hepatic encephalopathy (2) Cirrhosis of liver: Status: Acute Qualifiers: Hepatic cirrhosis type: unspecified hepatic cirrhosis Ascites presence: unspecified Qualified Code(s): K74.60 - Unspecified cirrhosis of liver Category: Medical Code(s): K74.60 - Unspecified cirrhosis of liver (3) Hypothyroidism: Status: Chronic Qualifiers: Hypothyroidism type: acquired Qualified Code(s): E03.9 - Hypothyroidism, unspecified Category: Medical Code(s): E03.9 - Hypothyroidism, unspecified (4) Hypertension: Status: Chronic Qualifiers: Hypertension type: primary hypertension Qualified Code(s): I10 - Essential (primary) hypertension Category: Medical Code(s): I10 - Essential (primary) hypertension (5) Bipolar 1 disorder: Status: Chronic Category: Medical Code(s): F31.9 - Bipolar disorder, unspecified Plan 52-year-old female who resides at [facility]. Patient is altered and encephalopathic. History of cirrhosis and psychiatric comorbidities. on arrival initial work up included ammonia level, found to be 152. patient was screeneed head to toe to rule out trauma or acute conditions. imaging reviewed. and agreed with radiology report. Discussed case with ED provider , requested admission and treatment for encephalopathy. Medicine agreed to admit. Continues to show slowly improvement in mentation at the time of assessment but not able to recall or maintain mindful conversation. Patient showing some improvement this morning. Has had 2 bowel movements. Oriented to self and more interactive. Continues to require inpatient management and treatment for her hepatic encephalopathy. Problems addressed as follows: -Acute hepatic encephalopathy -Cirrhosis Ammonia 152 on admission, 113 this morning. Continue lactulose 4 times a day. Will add rifaximin 550 mg twice daily to promote improvement in ammonia. Goal 2-4 soft bowel movements a day. rifaximin 550 mg twice daily. Repeat ammonia ordered for the morning Repeat CMP ordered for the morning. Kidney function normal. With BUN of 8 and creatinine of 0.8. Thrombocytopenia with platelets of 76. Repeat CBC and magnesium ordered for the morning -Bipolar, hypothyroidism and HTN: continue oxcarbazepine per home regimen 300 mg daily. Continue levothyroxine 100 mg daily for hypothyroid Continue carvedilol 3.125 mg twice daily for hypertension Continue amlodipine 5 mg daily for hypertension Continue Cymbalta 30 mg daily for depression Continue pantoprazole 40 mg daily for GERD Full code Anticoagulation contraindicated with thrombocytopenia. advance diet as mentation improves Therapy evaluated patient, at baseline level of function. No need for placement. Safe to return back to her personal alf once medically stable.
[2023-05-14 20:00] VITALS: BP 139/78; PULSE 87; RESP 18; TEMP 36.9; O2SAT 96
[2023-05-14] MEDS: CEFTRIAXONE 1 GM 1 GM in 0.9 % SODIUM CHLORIDE 50 ML IV (20:16)
[2023-05-14] MEDS: CARVEDILOL 3.125MG TABLET 3.125 MG PO (20:34)
[2023-05-14] MEDS: MELATONIN 5MG TABLET 5 MG PO (20:34)
[2023-05-14] MEDS: PANTOPRAZOLE 40MG VIAL 40 MG IV (20:35)
[2023-05-14] MEDS: SODIUM CHLORIDE 0.9% 10ML VIAL 10 ML IV (20:35)
[2023-05-14] MEDS: AMITRIPTYLINE 50MG TABLET 50 MG PO (20:35)
[2023-05-15 04:00] VITALS: BP 137/72; PULSE 78; RESP 22; TEMP 37.1; O2SAT 95; BMI 41.8
--- NOTE | 2023-05-15 05:56 | PC.NURSE ---
Pt alert to self only. Pt did get up for a shower this shift. Chao intact, draining red/brown tinged urine. Pt has complained of headache one time, treated per mar. Pt has had no other complaints this shift. Pt has rested well this shift. Call light in reach. Bed alarm on and functioning.
[2023-05-15] MEDS: LEVOTHYROXINE 100MCG (0.1MG) TAB 100 MCG PO (06:15)
[2023-05-15 06:59] LABS: Basophils % 0.5 % (0.1-2.0); Eosinophils # 0.1 K/mm3 (0.0-0.4); Eosinophils % 3.9 % (0.1-12.0); Hematocrit 34.1 % (37.0-47.0); Hemoglobin 11.3 g/dL (12.2-16.2); Lymphocytes # 0.7 K/mm3 (0.7-4.5); Lymphocytes % 26.6 % (10-50); Mean Corpuscular HGB Conc 33.1 g/dL (31.8-35.4); Mean Corpuscular Hemoglobin 33.4 pg (27.0-31.2); Mean Corpuscular Volume 100.7 fl (81-99); Monocytes # 0.2 K/mm3 (0.1-1.0); Monocytes % 6.9 % (1.7-9.3); Neutrophils # 1.7 K/mm3 (1.8-7.8); Neutrophils % 62.1 % (37.0-80.0); Platelet Count 83 K/mm3 (142-424); Red Blood Count 3.38 M/mm3 (4.20-5.40); White Blood Count 2.7 K/mm3 (4.8-10.8)
[2023-05-15 07:09] LABS: Alanine Aminotransferase 33 U/L (12-78); Albumin Level 2.6 g/dl (3.5-5.0); Albumin/Globulin Ratio 0.8 (1.1-1.8); Alkaline Phosphatase 84 U/L (38-126); Anion Gap 8.4 mEq/L (5-15); Aspartate Amino Transferase 61 U/L (14-36); Bilirubin,Total 0.8 mg/dl (0.2-1.3); Blood Urea Nitrogen 9 mg/dl (7-17); Calcium 7.5 mg/dl (8.4-10.2); Carbon Dioxide 24 mmol/L (22.0-30.0); Chloride 113 mmol/L (98-107); Creatinine Clearance Estimated 50 mL/min (50-200); Estimated Glomerular Filt Rate 66 ml/min (>60); GFR (African American) 80 ML/MIN (>60); Globulin 3.3 g/dL (1.3-3.2); Glucose 89 mg/dl (74-100); Magnesium 1.9 mg/dl (1.6-2.3); Potassium 3.4 mmoL/L (3.5-5.1); Sodium 142 mmol/L (136-145); Total Protein,Serum 5.9 g/dl (6.3-8.2)
[2023-05-15 08:00] VITALS: BP 133/74; PULSE 70; RESP 20; TEMP 36.8; O2SAT 96; O2SAT 98
[2023-05-15] MEDS: FERROUS SULFATE 325MG TABLET 325 MG PO (08:54)
[2023-05-15] MEDS: NYSTATIN TOPICAL POWDER 30GM TP ×4 (08:54→21:33)
[2023-05-15] MEDS: AMLODIPINE 5MG TABLET 5 MG PO (08:54)
[2023-05-15] MEDS: CARVEDILOL 3.125MG TABLET 3.125 MG PO ×2 (08:54→21:33)
[2023-05-15] MEDS: OXcarbazepine 300MG TABLET 300 MG PO ×2 (08:54→21:33)
[2023-05-15] MEDS: RIFAXIMIN 550MG TABLET 550 MG PO ×2 (08:54→21:33)
[2023-05-15] MEDS: DULOXETINE 30MG CAPSULE.DR 30 MG PO (08:54)
[2023-05-15] MEDS: LACTULOSE 20GM/30ML UDC 20 GM PO ×4 (08:55→21:33)
[2023-05-15 09:17] LABS: Microscopic, Urine URINE MICROSCOPIC (MICROSCOPIC)
[2023-05-15 09:21] LABS: Appearance,Urine CLEAR (Clear); Blood, Urine 3+ (Negative); Color,Urine YELLOW (Yellow); Glucose,Urine (UA) Negative (Negative); Ketones,Urine Negative (Negative); Leukocyte Esterase,Urine Negative (Negative); Nitrate,Urine Negative (Negative); Protein,Urine 1+ (Negative); Specific Gravity, Urine 1.025 (1.005-1.030)
[2023-05-15 09:59] LABS: Bilirubin,Urine 1+ (Negative)
[2023-05-15 10:10] LABS: Bacteria,Urine 2+ /lpf; RBC,Urine 20-50 #/hpf (0-3); Squamous Epithelial Cell,Urine Occasional #/hpf (0-5)
[2023-05-15 11:02] VITALS: BMI 41.7
[2023-05-15 11:34] LABS: Ammonia 93 umol/L (9-30)
[2023-05-15] MEDS: POTASSIUM CHLORIDE 20MEQ TAB 20 MEQ PO (11:49)
--- NOTE | 2023-05-15 12:31 | P.PN_ITS ---
Subjective *Date: 05/15/23 *Time: 12:31 Interval history: seen at bedside, appears confused and does not know where she is at. Denied CP, SOB, N/V Exam Data for Last 24 hours Vital signs and Labs for Last 24 Hours: Temp Pulse Resp BP Pulse Ox O2 Del Method 98.3 F 70 20 133/74 98 Room Air 05/15/23 08:00 05/15/23 08:00 05/15/23 08:00 05/15/23 08:00 05/15/23 08:00 05/15/23 10:04 Laboratory Results - last 24 hr 05/15/23 06:38: WBC 2.7 L, RBC 3.38 L, Hgb 11.3 L, Hct 34.1 L, MCV 100.7 H, MCH 33.4 H, MCHC 33.1, RDW 15.0, Plt Count 83 L, MPV 8.0, Neut % (Auto) 62.1, Lymph % (Auto) 26.6, [place] % (Auto) 6.9, Eos % (Auto) 3.9, Baso % (Auto) 0.5, Neut # (Auto) 1.7 L, Lymph # (Auto) 0.7, [place] # (Auto) 0.2, Eos # (Auto) 0.1, Baso # (Auto) 0.0, Sodium 142, Potassium 3.4 L, Chloride 113 H, Carbon Dioxide 24, Anion Gap 8.4, BUN 9, Creatinine 0.90, Estimated Creat Clear 50, Estimated GFR 66, Est GFR ( Amer) 80, Glucose 89, Calcium 7.5 L, Magnesium 1.9, Total Bilirubin 0.8, AST 61 H, ALT 33, Alkaline Phosphatase 84, Ammonia 93 H, Total Protein 5.9 L, Albumin 2.6 L, Globulin 3.3 H, Albumin/Globulin Ratio 0.8 L 05/15/23 09:09: Urine Color Yellow, Urine Appearance Clear, Urine pH 6.0, Ur Specific [place] 1.025, Urine Protein 1+, Urine Glucose (UA) Negative, Urine Ketones Negative, Urine Blood 3+, Urine Nitrate Negative, Urine Bilirubin 1+ A, Urine Urobilinogen 2.0, Ur Leukocyte Esterase Negative, Urine RBC 20-50, Urine WBC 5-10, Ur Squamous Epith Cells Occasional, Urine Bacteria 2+ I & O for Last 24 hours: Intake & Output 05/12/23 05/13/23 05/14/23 05/15/23 23:59 23:59 23:59 23:59 Intake Total 1345 / 1345 760 / 760 Output Total 1650 / 2350 900 / 900 Balance -305 / -1005 -140 / -140 Weight 78.018 kg 94.404 kg 93.9 kg Constitutional Constitutional: no acute distress *Routine HEENT Exam Head: Present normocephalic Eye: Present EOMI and PERRL ENT: Present mucous membranes moist *Routine Neck Exam Neck: Present supple; Absent lymphadenopathy *Routine Respiratory Exam Respiratory: Present CTA bilaterally *Routine Cardiovascular Exam Cardiovascular: Present RRR *Routine Abdominal Exam Abdominal: Present soft and normoactive bowel sounds; Absent tenderness *Routine Extremities Exam Extremities: Absent cyanosis, clubbing or edema *Routine Skin Exam Skin: Present warm; Absent rash *Routine Neurological Exam Neurological: Present alert Comments: Ax2, confused, but following commands Assessment and Plan *Assessment and plan (1) Acute hepatic encephalopathy: Status: Acute Category: Medical Code(s): K76.82 - Hepatic encephalopathy (2) Cirrhosis of liver: Status: Acute Qualifiers: Hepatic cirrhosis type: unspecified hepatic cirrhosis Ascites presence: unspecified Qualified Code(s): K74.60 - Unspecified cirrhosis of liver Category: Medical Code(s): K74.60 - Unspecified cirrhosis of liver (3) Hypothyroidism: Status: Chronic Qualifiers: Hypothyroidism type: acquired Qualified Code(s): E03.9 - Hypothyroidism, unspecified Category: Medical Code(s): E03.9 - Hypothyroidism, unspecified (4) Hypertension: Status: Chronic Qualifiers: Hypertension type: primary hypertension Qualified Code(s): I10 - Essential (primary) hypertension Category: Medical Code(s): I10 - Essential (primary) hypertension (5) Bipolar 1 disorder: Status: Chronic Category: Medical Code(s): F31.9 - Bipolar disorder, unspecified Plan 52-year-old female who resides at [facility]. Patient is altered and encephalopathic. History of cirrhosis and psychiatric comorbidities. on arrival initial work up included ammonia level, found to be 152. patient was screeneed head to toe to rule out trauma or acute conditions. imaging reviewed. and agreed with radiology report. Discussed case with ED provider , requested admission and treatment for encephalopathy. Medicine agreed to admit. Continues to show slowly improvement in mentation at the time of assessment but not able to recall or maintain mindful conversation. Patient showing some improvement this morning. Has had 2 bowel movements. Oriented to self and more interactive. Continues to require inpatient management and treatment for her hepatic encephalopathy. Problems addressed as follows: -Acute hepatic encephalopathy -Cirrhosis continue lactulose and rifaximin, check NH3 level tomorrow rifaximin 550 mg twice daily. Repeat ammonia ordered for the morning Repeat CMP ordered for the morning. Kidney function normal. With BUN of 8 and creatinine of 0.8. Thrombocytopenia with platelets of 76. Repeat CBC and magnesium ordered for the morning -Bipolar, hypothyroidism and HTN: continue oxcarbazepine per home regimen 300 mg daily. Continue levothyroxine 100 mg daily for hypothyroid Continue carvedilol 3.125 mg twice daily for hypertension Continue amlodipine 5 mg daily for hypertension Continue Cymbalta 30 mg daily for depression Continue pantoprazole 40 mg daily for GERD Full code Anticoagulation contraindicated with thrombocytopenia. advance diet as mentation improves if mental status continues to improve along with NH3 level, will dc tomorrow
--- NOTE | 2023-05-15 14:50 | PC.NURSE ---
Pt aox 1, up with assistance x 2, 90's on RA, f/c with brown urine noted, no complaints at this time.
[2023-05-15] MEDS: ACETAMINOPHEN 325MG TAB 650 MG PO ×2 (15:32→22:19)
[2023-05-15 15:36] VITALS: BP 132/68; PULSE 62; RESP 16; TEMP 36.3; O2SAT 96
[2023-05-15 20:00] VITALS: BP 123/72; PULSE 66; RESP 18; TEMP 36.6; O2SAT 96
[2023-05-15] MEDS: MELATONIN 5MG TABLET 5 MG PO (21:33)
[2023-05-15] MEDS: SODIUM CHLORIDE 0.9% 10ML VIAL 10 ML IV (21:33)
[2023-05-15] MEDS: CEFTRIAXONE 1 GM 1 GM in 0.9 % SODIUM CHLORIDE 50 ML IV (21:33)
[2023-05-15] MEDS: PANTOPRAZOLE 40MG VIAL 40 MG IV (21:33)
[2023-05-15] MEDS: AMITRIPTYLINE 50MG TABLET 50 MG PO (21:33)
[2023-05-15 23:41] VITALS: BP 130/72; PULSE 65; RESP 16; TEMP 36.6; O2SAT 92
[2023-05-16 04:00] VITALS: BP 132/68; PULSE 64; RESP 17; TEMP 36.8; O2SAT 94; BMI 43.0
[2023-05-16 06:26] LABS: Alanine Aminotransferase 32 U/L (12-78); Albumin Level 2.6 g/dl (3.5-5.0); Albumin/Globulin Ratio 0.8 (1.1-1.8); Alkaline Phosphatase 86 U/L (38-126); Anion Gap 8.2 mEq/L (5-15); Aspartate Amino Transferase 63 U/L (14-36); Bilirubin,Total 0.6 mg/dl (0.2-1.3); Blood Urea Nitrogen 7 mg/dl (7-17); Calcium 7.7 mg/dl (8.4-10.2); Carbon Dioxide 24 mmol/L (22.0-30.0); Chloride 111 mmol/L (98-107); Creatinine Clearance Estimated 50 mL/min (50-200); Estimated Glomerular Filt Rate 66 ml/min (>60); GFR (African American) 80 ML/MIN (>60); Globulin 3.3 g/dL (1.3-3.2); Glucose 96 mg/dl (74-100); Potassium 3.2 mmoL/L (3.5-5.1); Sodium 140 mmol/L (136-145); Total Protein,Serum 5.9 g/dl (6.3-8.2)
[2023-05-16] MEDS: LEVOTHYROXINE 100MCG (0.1MG) TAB 100 MCG PO (06:35)
[2023-05-16 08:16] VITALS: BP 145/68; PULSE 89; RESP 18; TEMP 37.1; O2SAT 97
[2023-05-16] MEDS: RIFAXIMIN 550MG TABLET 550 MG PO (08:17)
[2023-05-16] MEDS: AMLODIPINE 5MG TABLET 5 MG PO (08:17)
[2023-05-16] MEDS: CARVEDILOL 3.125MG TABLET 3.125 MG PO (08:17)
[2023-05-16] MEDS: LACTULOSE 20GM/30ML UDC 20 GM PO ×2 (08:17→13:03)
[2023-05-16] MEDS: OXcarbazepine 300MG TABLET 300 MG PO (08:17)
[2023-05-16] MEDS: DULOXETINE 30MG CAPSULE.DR 30 MG PO (08:17)
[2023-05-16] MEDS: FERROUS SULFATE 325MG TABLET 325 MG PO (08:18)
[2023-05-16] MEDS: NYSTATIN TOPICAL POWDER 30GM TP ×2 (08:18→13:04)
[2023-05-16 08:24] LABS: Basophils % 0.4 % (0.1-2.0); Eosinophils # 0.2 K/mm3 (0.0-0.4); Eosinophils % 5.2 % (0.1-12.0); Hemoglobin 11.4 g/dL (12.2-16.2); Lymphocytes # 0.7 K/mm3 (0.7-4.5); Lymphocytes % 24.6 % (10-50); Mean Corpuscular HGB Conc 34.5 g/dL (31.8-35.4); Mean Corpuscular Hemoglobin 33.9 pg (27.0-31.2); Mean Corpuscular Volume 98.1 fl (81-99); Mean Platelet Volume 8.5 fl (7.4-10.4); Monocytes # 0.3 K/mm3 (0.1-1.0); Monocytes % 9.7 % (1.7-9.3); Neutrophils # 1.8 K/mm3 (1.8-7.8); Neutrophils % 60.1 % (37.0-80.0); Platelet Count 99 K/mm3 (142-424); Red Blood Count 3.36 M/mm3 (4.20-5.40)
[2023-05-16] MEDS: ACETAMINOPHEN 325MG TAB 650 MG PO (08:30)
[2023-05-16 08:31] LABS: Anion Gap 8.1 mEq/L (5-15); Blood Urea Nitrogen 7 mg/dl (7-17); Calcium 7.8 mg/dl (8.4-10.2); Carbon Dioxide 25 mmol/L (22.0-30.0); Chloride 111 mmol/L (98-107); Creatinine Clearance Estimated 50 mL/min (50-200); Estimated Glomerular Filt Rate 66 ml/min (>60); GFR (African American) 80 ML/MIN (>60); Glucose 95 mg/dl (74-100); Potassium 3.1 mmoL/L (3.5-5.1); Sodium 141 mmol/L (136-145)
[2023-05-16 09:07] LABS: Ammonia 72 umol/L (9-30)
--- NOTE | 2023-05-16 11:35 | EXP.DC.SUM ---
General Admission date:: 05/13/23 Discharge date: 05/16/23 HPI HPI HPI: This is a 53-year-old female who resides at [facility] with PMHx of cirrhosis, previous encephalopathy bipolar, on numerous psych medications. hypothyroidism, presented to the ED via EMS after being found down on the ground at her facility. History is limited due to patient mental states. Per ED documentation and report from facility patient, Patient has fallen multiple times in the last couple of days, was found down in a puddle of her own urine. She opens her eyes but is not oriented and appears altered from her baseline. Admitted for further management and treatment. Hospital Course Hospital Course Hospital Course: 52-year-old female who resides at [facility]. Patient is altered and encephalopathic. History of cirrhosis and psychiatric comorbidities. on arrival initial work up included ammonia level, found to be 152. patient was screeneed head to toe to rule out trauma or acute conditions. imaging reviewed. and agreed with radiology report. Discussed case with ED provider , requested admission and treatment for encephalopathy. Medicine agreed to admit. Continues to show slowly improvement in mentation at the time of assessment but not able to recall or maintain mindful conversation. Patient showing some improvement this morning. Has had 2 bowel movements. Oriented to self and more interactive. Continues to require inpatient management and treatment for her hepatic encephalopathy. Problems addressed as follows: -Acute hepatic encephalopathy - improved -Cirrhosis continue lactulose and rifaximin, check NH3 level tomorrow rifaximin 550 mg twice daily. Repeat ammonia ordered for the morning Repeat CMP ordered for the morning. Kidney function normal. With BUN of 8 and creatinine of 0.8. Thrombocytopenia with platelets of 76. Repeat CBC and magnesium ordered for the morning -Bipolar, hypothyroidism and HTN: continue oxcarbazepine per home regimen 300 mg daily. Continue levothyroxine 100 mg daily for hypothyroid Continue carvedilol 3.125 mg twice daily for hypertension Continue amlodipine 5 mg daily for hypertension Continue Cymbalta 30 mg daily for depression Continue pantoprazole 40 mg daily for GERD Exam Data for Last 24 hours Vital signs and Labs for Last 24 Hours: Temp Pulse Resp BP Pulse Ox O2 Del Method 98.7 F 89 18 145/68 H 97 Room Air 05/16/23 08:16 05/16/23 08:16 05/16/23 08:16 05/16/23 08:16 05/16/23 08:16 05/16/23 10:55 Laboratory Results - last 24 hr 05/15/23 06:38: Ammonia 93 H 05/16/23 05:48: WBC 3.0 L, RBC 3.36 L, Hgb 11.4 L, Hct 33.0 L, MCV 98.1, MCH 33.9 H, MCHC 34.5, RDW 15.0, Plt Count 99 L, MPV 8.5, Neut % (Auto) 60.1, Lymph % (Auto) 24.6, [place] % (Auto) 9.7 H, Eos % (Auto) 5.2, Baso % (Auto) 0.4, Neut # (Auto) 1.8, Lymph # (Auto) 0.7, [place] # (Auto) 0.3, Eos # (Auto) 0.2, Baso # (Auto) 0.0, Sodium 140 05/16/23 05:48: Sodium 141, Potassium 3.2 L 05/16/23 05:48: Potassium 3.1 L, Chloride 111 H 05/16/23 05:48: Chloride 111 H, Carbon Dioxide 24 05/16/23 05:48: Carbon Dioxide 25, Anion Gap 8.2 05/16/23 05:48: Anion Gap 8.1, BUN 7 05/16/23 05:48: BUN 7, Creatinine 0.90 05/16/23 05:48: Creatinine 0.90, Estimated Creat Clear 50 05/16/23 05:48: Estimated Creat Clear 50, Estimated GFR 66 05/16/23 05:48: Estimated GFR 66, Est GFR ( Amer) 80 05/16/23 05:48: Est GFR ( Amer) 80, Glucose 96 05/16/23 05:48: Glucose 95, Calcium 7.7 L 05/16/23 05:48: Calcium 7.8 L, Total Bilirubin 0.6, AST 63 H, ALT 32, Alkaline Phosphatase 86, Ammonia 72 H, Total Protein 5.9 L, Albumin 2.6 L, Globulin 3.3 H, Albumin/Globulin Ratio 0.8 L I & O for Last 24 hours: Intake & Output 05/13/23 05/14/23 05/15/23 05/16/23 23:59 23:59 23:59 23:59 Intake Total 1345 / 1345 1230 / 1230 600 / 600 Output Total 1650 / 2350 1300 / 1300 725 / 725 Balance -305 / -1005 -70 / -70 -125 / -125 Weight 78.018 kg 94.404 kg 93.9 kg 96.978 kg Constitutional Constitutional: no acute distress *Routine HEENT Exam Head: Present normocephalic Eye: Present EOMI and PERRL ENT: Present mucous membranes moist *Routine Neck Exam Neck: Present supple; Absent lymphadenopathy *Routine Respiratory Exam Respiratory: Present CTA bilaterally *Routine Cardiovascular Exam Cardiovascular: Present RRR *Routine Abdominal Exam Abdominal: Present soft and normoactive bowel sounds; Absent tenderness *Routine Extremities Exam Extremities: Absent cyanosis, clubbing or edema *Routine Skin Exam Skin: Present warm; Absent rash *Routine Neurological Exam Neurological: Present alert and oriented X3 Results Data Completed and Pending Labs on day of discharge: Labs from last 24 hours 05/16/23 05/16/23 05/16/23 05:48 05:48 05:48 WBC RBC Hgb Hct MCV MCH MCHC RDW Plt Count MPV Neut % (Auto) Lymph % (Auto) [place] % (Auto) Eos % (Auto) Baso % (Auto) Neut # (Auto) Lymph # (Auto) [place] # (Auto) Eos # (Auto) Baso # (Auto) Sodium Potassium Chloride Carbon Dioxide Anion Gap BUN Creatinine Estimated Creat Clear Estimated GFR Est GFR ( Amer) 80 Glucose 95 96 Calcium 7.8 L 7.7 L Total Bilirubin 0.6 AST 63 H ALT 32 Alkaline Phosphatase 86 Ammonia 72 H Total Protein 5.9 L Albumin 2.6 L Globulin 3.3 H Albumin/Globulin Ratio 0.8 L 05/16/23 05/16/23 05/16/23 05:48 05:48 05:48 WBC RBC Hgb Hct MCV MCH MCHC RDW Plt Count MPV Neut % (Auto) Lymph % (Auto) [place] % (Auto) Eos % (Auto) Baso % (Auto) Neut # (Auto) Lymph # (Auto) [place] # (Auto) Eos # (Auto) Baso # (Auto) Sodium Potassium Chloride Carbon Dioxide Anion Gap BUN Creatinine 0.90 Estimated Creat Clear 50 50 Estimated GFR 66 66 Est GFR ( Amer) 80 Glucose Calcium Total Bilirubin AST ALT Alkaline Phosphatase Ammonia Total Protein Albumin Globulin Albumin/Globulin Ratio 05/16/23 05/16/23 05/16/23 05:48 05:48 05:48 WBC RBC Hgb Hct MCV MCH MCHC RDW Plt Count MPV Neut % (Auto) Lymph % (Auto) [place] % (Auto) Eos % (Auto) Baso % (Auto) Neut # (Auto) Lymph # (Auto) [place] # (Auto) Eos # (Auto) Baso # (Auto) Sodium Potassium Chloride Carbon Dioxide 25 Anion Gap 8.1 8.2 BUN 7 7 Creatinine 0.90 Estimated Creat Clear Estimated GFR Est GFR ( Amer) Glucose Calcium Total Bilirubin AST ALT Alkaline Phosphatase Ammonia Total Protein Albumin Globulin Albumin/Globulin Ratio 05/16/23 05/16/23 05/16/23 05:48 05:48 05:48 WBC RBC Hgb Hct MCV MCH MCHC RDW Plt Count MPV Neut % (Auto) Lymph % (Auto) [place] % (Auto) Eos % (Auto) Baso % (Auto) Neut # (Auto) Lymph # (Auto) [place] # (Auto) Eos # (Auto) Baso # (Auto) Sodium 141 Potassium 3.1 L 3.2 L Chloride 111 H 111 H Carbon Dioxide 24 Anion Gap BUN Creatinine Estimated Creat Clear Estimated GFR Est GFR ( Amer) Glucose Calcium Total Bilirubin AST ALT Alkaline Phosphatase Ammonia Total Protein Albumin Globulin Albumin/Globulin Ratio 05/16/23 05/15/23 05:48 06:38 WBC 3.0 L RBC 3.36 L Hgb 11.4 L Hct 33.0 L MCV 98.1 MCH 33.9 H MCHC 34.5 RDW 15.0 Plt Count 99 L MPV 8.5 Neut % (Auto) 60.1 Lymph % (Auto) 24.6 [place] % (Auto) 9.7 H Eos % (Auto) 5.2 Baso % (Auto) 0.4 Neut # (Auto) 1.8 Lymph # (Auto) 0.7 [place] # (Auto) 0.3 Eos # (Auto) 0.2 Baso # (Auto) 0.0 Sodium 140 Potassium Chloride Carbon Dioxide Anion Gap BUN Creatinine Estimated Creat Clear Estimated GFR Est GFR ( Amer) Glucose Calcium Total Bilirubin AST ALT Alkaline Phosphatase Ammonia 93 H Total Protein Albumin Globulin Albumin/Globulin Ratio DS: Diagnosis Discharge Diagnosis (1) Acute hepatic encephalopathy: Status: Acute Code(s): K76.82 - Hepatic encephalopathy (2) Cirrhosis of liver: Status: Acute Code(s): K74.60 - Unspecified cirrhosis of liver Qualifiers: Hepatic cirrhosis type: unspecified hepatic cirrhosis Ascites presence: unspecified Qualified Code(s): K74.60 - Unspecified cirrhosis of liver (3) Hypothyroidism: Status: Chronic Code(s): E03.9 - Hypothyroidism, unspecified Qualifiers: Hypothyroidism type: acquired Qualified Code(s): E03.9 - Hypothyroidism, unspecified (4) Hypertension: Status: Chronic Code(s): I10 - Essential (primary) hypertension Qualifiers: Hypertension type: primary hypertension Qualified Code(s): I10 - Essential (primary) hypertension (5) Bipolar 1 disorder: Status: Chronic Code(s): F31.9 - Bipolar disorder, unspecified Meds Home Medications and Allergies Home Medications Medication Instructions Recorded Confirmed Type amitriptyline 50 mg tablet 50 mg PO HS 05/02/22 05/14/23 History carvedilol 3.125 mg tablet 3.125 mg PO BID 05/02/22 05/14/23 History duloxetine 30 mg capsule,delayed 30 mg PO DAILY 05/02/22 05/14/23 History release levothyroxine 100 mcg tablet 100 mcg PO AM 05/02/22 05/14/23 History pantoprazole 40 mg tablet,delayed 40 mg PO DAILY 05/02/22 05/14/23 History release melatonin 5 mg tablet 5 mg PO HS 05/03/22 05/14/23 History oxcarbazepine 300 mg tablet 300 mg PO BID 02/20/23 05/14/23 History amlodipine 5 mg tablet 5 mg PO DAILY 02/21/23 05/14/23 History pyridoxine (vitamin B6) 50 mg 50 mg PO DAILY 02/21/23 05/14/23 History tablet acetaminophen 325 mg tablet 325 mg PO QID PRN Pain 05/14/23 05/14/23 History cyclobenzaprine 5 mg tablet 5 mg PO TID PRN Muscle Pain 05/14/23 05/14/23 History ferrous sulfate 324 mg (65 mg 324 mg PO DAILY 05/14/23 05/14/23 History iron) tablet,delayed release hydroxyzine HCl 25 mg tablet 25 mg PO TID PRN Anxiety 05/14/23 05/14/23 History lactulose 20 gram/30 mL oral 20 g (30 mL) PO BID 14 days #840 mL 05/16/23 Rx solution pantoprazole 40 mg tablet,delayed 40 mg PO HS 30 days #30 tabs 05/16/23 Rx release rifaximin 550 mg tablet (Xifaxan) 550 mg PO BID 30 days #60 tabs 05/16/23 Rx New Prescriptions to Start Prescriptions: lactulose Malu Bentley pantoprazole Malu Bentley rifaximin [Xifaxan] Malu Bentley Allergies Allergy/AdvReac Type Severity Reaction Status Date / Time amoxicillin [From Augmentin] Allergy Verified 03/07/23 12:07 clavulanic acid Allergy Verified 03/07/23 12:07 [From Augmentin] oxycodone Allergy Verified 03/07/23 12:07 Discharge Plan Disposition Patient Disposition: Home, Self-Care Condition: Good Discharge Order Discharge Orders: Discharge Order (Routine); Ordered 05/16/23 Ordered By: Malu Bentley Follow up Plan Follow up with: Provider,Referral, MD [Primary Care Provider] - See instructions Prescriptions/Medication Reconciliation: New pantoprazole 40 mg Tablet,Delayed Release (Dr/Ec) 40 mg PO HS 30 Days Qty: 30 0RF Xifaxan 550 mg Tablet 550 mg PO BID 30 Days Qty: 60 0RF lactulose 20 gram/30 mL Solution 20 g PO BID 14 Days Qty: 840 0RF Continued amitriptyline 50 mg Tablet 50 mg PO HS carvedilol 3.125 mg Tablet 3.125 mg PO BID levothyroxine 100 mcg Tablet 100 mcg PO AM pantoprazole 40 mg Tablet,Delayed Release (Dr/Ec) 40 mg PO DAILY duloxetine 30 mg Capsule,Delayed Release(Dr/Ec) 30 mg PO DAILY melatonin 5 mg tablet 5 mg PO HS oxcarbazepine 300 mg tablet 300 mg PO BID amlodipine 5 mg tablet 5 mg PO DAILY pyridoxine (vitamin B6) 50 mg tablet 50 mg PO DAILY acetaminophen 325 mg Tablet 325 mg PO QID PRN (Reason: Pain) hydroxyzine HCl 25 mg Tablet 25 mg PO TID PRN (Reason: Anxiety ) cyclobenzaprine 5 mg Tablet 5 mg PO TID PRN (Reason: Muscle Pain ) ferrous sulfate 324 mg (65 mg iron) tablet,delayed release (DR/EC) 324 mg PO DAILY Problem Reconciliation Problems Reviewed?: Yes Patient Discharge Instructions ACTIVITY: Ambulate as tolerated DIET: continue same diet Patient Instructions: DI for Cirrhosis, DI for Hepatic Encephalopathy Providers Primary Care Provider: Provider,Referral Admit Provider: Jhon Chandler Attending Provider: Jhon Chandler
[2023-05-16] MEDS: POTASSIUM CHLORIDE 20MEQ TAB 20 MEQ PO (12:10)
== END 2023-05-16 13:29 | disposition home or self-care (01) | DRG 443 ==
LOC: ER 22:31 → 2ND 22:36
PROVIDERS: Internal Medicine; Nurse Practitioner Family; Admitting Provider Internal Medicine Adolescent Medicine; Emergency Provider Emergency Medicine; Visit Provider Internal Medicine Adolescent Medicine
DX: K76.82 Hepatic encephalopathy (principal); F31.9 Bipolar disorder, unspecified; E03.9 Hypothyroidism, unspecified; K74.60 Unspecified cirrhosis of liver; G47.30 Sleep apnea, unspecified; I10 Essential (primary) hypertension
CPT/HCPCS: 36415; 51702; 70450; 71045; 72125; 72170; 74177; 80048; 80053; 81001; 82140; 82803; 83605; 83735; 84484; 85025; 87040; 87086; 87430; 87636; 93005; 97163; 97165; 99285; J0131; J0696; Q9967

== ENCOUNTER 2023-05-31 21:35 | Emergency (ER) | payer MEDICAID, SELFPAY ==
[2023-05-31 21:35] VITALS: BP 140/81; PULSE 72; RESP 16; TEMP 36.9; O2SAT 97; BMI 25.0
[2023-05-31 22:05] LABS: Basophils % 0.6 % (0.1-2.0); Eosinophils # 0.1 K/mm3 (0.0-0.4); Eosinophils % 4.2 % (0.1-12.0); Hematocrit 36.2 % (37.0-47.0); Hemoglobin 12.2 g/dL (12.2-16.2); Lymphocytes % 37.1 % (10-50); Mean Corpuscular HGB Conc 33.8 g/dL (31.8-35.4); Mean Corpuscular Hemoglobin 33.4 pg (27.0-31.2); Mean Corpuscular Volume 98.9 fl (81-99); Mean Platelet Volume 8.2 fl (7.4-10.4); Monocytes # 0.2 K/mm3 (0.1-1.0); Monocytes % 8.3 % (1.7-9.3); Neutrophils # 1.3 K/mm3 (1.8-7.8); Neutrophils % 49.8 % (37.0-80.0); Platelet Count 96 K/mm3 (142-424); Red Blood Count 3.66 M/mm3 (4.20-5.40); Red Cell Distribution Width 14.8 % (11.5-17.5); White Blood Count 2.7 K/mm3 (4.8-10.8)
[2023-05-31 22:06] LABS: Chloride 109 mmol/L (98-107); Potassium 4.1 mmoL/L (3.5-5.1); Sodium 138 mmol/L (136-145)
[2023-05-31 22:08] LABS: Alanine Aminotransferase 40 U/L (12-78); Aspartate Amino Transferase 97 U/L (14-36); Blood Urea Nitrogen 11 mg/dl (7-17); Creatinine Clearance Estimated 79 mL/min (50-200); Estimated Glomerular Filt Rate 66 ml/min (>60); GFR (African American) 80 ML/MIN (>60)
[2023-05-31 22:09] LABS: Albumin Level 3.3 g/dl (3.5-5.0); Albumin/Globulin Ratio 0.9 (1.1-1.8); Alkaline Phosphatase 69 U/L (38-126); Anion Gap 3.1 mEq/L (5-15); Bilirubin,Total 1.1 mg/dl (0.2-1.3); Calcium 8.6 mg/dl (8.4-10.2); Carbon Dioxide 30 mmol/L (22.0-30.0); Globulin 3.7 g/dL (1.3-3.2); Glucose 78 mg/dl (74-100); Lipase 197 U/L (23-300)
[2023-05-31] MEDS: KETOROLAC 30MG/ML VIAL 15 MG IV (22:20)
[2023-05-31] MEDS: FOLIC ACID 1MG TABLET 1 MG PO (22:21)
[2023-05-31] MEDS: THIAMINE 100MG TABLET 100 MG PO (22:21)
[2023-05-31] MEDS: LACTATED RINGERS 1000ML 1,000 ML 999 ML IV (22:21)
[2023-05-31 23:00] VITALS: BP 118/72; PULSE 65; O2SAT 98
--- NOTE | 2023-05-31 23:51 | HMH.EDGENADL ---
Discharge Plan Disposition Patient Disposition: Home, Self-Care Prescriptions Prescriptions: New polyethylene glycol 3350 17 gram/dose powder 17 g PO QID 14 Days Qty: 952 0RF Fleet Enema 19-7 gram/118 mL enema 118 ml ME DAILY PRN (Reason: constipation) Qty: 532 0RF No Action amitriptyline 50 mg Tablet 50 mg PO HS carvedilol 3.125 mg Tablet 3.125 mg PO BID levothyroxine 100 mcg Tablet 100 mcg PO AM pantoprazole 40 mg Tablet,Delayed Release (Dr/Ec) 40 mg PO DAILY duloxetine 30 mg Capsule,Delayed Release(Dr/Ec) 30 mg PO DAILY melatonin 5 mg tablet 5 mg PO HS oxcarbazepine 300 mg tablet 300 mg PO BID amlodipine 5 mg tablet 5 mg PO DAILY pyridoxine (vitamin B6) 50 mg tablet 50 mg PO DAILY acetaminophen 325 mg Tablet 325 mg PO QID PRN (Reason: Pain) hydroxyzine HCl 25 mg Tablet 25 mg PO TID PRN (Reason: Anxiety ) cyclobenzaprine 5 mg Tablet 5 mg PO TID PRN (Reason: Muscle Pain ) ferrous sulfate 324 mg (65 mg iron) tablet,delayed release (DR/EC) 324 mg PO DAILY pantoprazole 40 mg Tablet,Delayed Release (Dr/Ec) 40 mg PO HS 30 Days Qty: 30 0RF Xifaxan 550 mg Tablet 550 mg PO BID 30 Days Qty: 60 0RF lactulose 20 gram/30 mL Solution 20 g PO BID 14 Days Qty: 840 0RF Referrals Follow up/Referrals: Provider,Referral, MD [Primary Care Provider] - See instructions Activity Restrictions/Add. Instructions Additional Instructions/Restrictions: You are significantly constipated. Recommend continued use enemas at home as needed. Recommend taking lactulose as previously prescribed. Recommend starting on MiraLAX at home as well. You should be having at least 1-2 soft stools per day. Your urinalysis showed some blood in the urine. This is consistent with prior urine samples. This needs to be followed up with your PCP on an outpatient basis as this could be a sign of more serious pathology. Clinical Impressions Clinical Impression: Constipation Qualifiers: Constipation type: unspecified constipation type Qualified Code(s): K59.00 - Constipation, unspecified Hematuria Qualifiers: Hematuria type: other microscopic Qualified Code(s): R31.29 - Other microscopic hematuria Instructions Patient Instructions: DI for Acute Abdominal Pain Discharge ED Provider: Micheal Leon General Adult HPI <Micheal Leon MD - Last Filed: 05/31/23 23:58> General Chief complaint: Abdominal Pain Stated complaint: liver pain Time Seen by Provider: 05/31/23 22:03 Mode of Arrival: EMS Source of Information: EMS Limitations: No Limitations Description of Symptoms (Recalled from ER Triage Doc. by RN): pt c/o LLQ pain that started today. History of Present Illness HPI narrative: 53-year-old male who does not know any of her morbid use or any and she takes presenting with abdominal pain. States that she is abdominal pain all over, and that she has not pooped in over a month. Does not know if she has been having dysuria, hematuria, or any other urinary symptoms. No fevers or chills, nausea or vomiting. Does not remember if she has had any surgeries. Related Data Home Medications Medication Instructions Recorded Confirmed amitriptyline 50 mg tablet 50 mg PO HS 05/02/22 05/14/23 carvedilol 3.125 mg tablet 3.125 mg PO BID 05/02/22 05/14/23 duloxetine 30 mg capsule,delayed 30 mg PO DAILY 05/02/22 05/14/23 release levothyroxine 100 mcg tablet 100 mcg PO AM 05/02/22 05/14/23 pantoprazole 40 mg tablet,delayed 40 mg PO DAILY 05/02/22 05/14/23 release melatonin 5 mg tablet 5 mg PO HS 05/03/22 05/14/23 oxcarbazepine 300 mg tablet 300 mg PO BID 02/20/23 05/14/23 amlodipine 5 mg tablet 5 mg PO DAILY 02/21/23 05/14/23 pyridoxine (vitamin B6) 50 mg 50 mg PO DAILY 02/21/23 05/14/23 tablet acetaminophen 325 mg tablet 325 mg PO QID PRN Pain 05/14/23 05/14/23 cyclobenzaprine 5 mg tablet 5 mg PO TID PRN Muscle Pain 05/14/23 05/14/23 ferrous sulfate 324 mg (65 mg 324 mg PO DAILY 05/14/23 05/14/23 iron) tablet,delayed release hydroxyzine HCl 25 mg tablet 25 mg PO TID PRN Anxiety 05/14/23 05/14/23 Previous Rx's Medication Instructions Recorded lactulose 20 gram/30 mL oral 20 g (30 mL) PO BID 14 days #840 mL 05/16/23 solution pantoprazole 40 mg tablet,delayed 40 mg PO HS 30 days #30 tabs 05/16/23 release rifaximin 550 mg tablet (Xifaxan) 550 mg PO BID 30 days #60 tabs 05/16/23 polyethylene glycol 3350 17 17 g PO QID 2 weeks #952 grams 06/01/23 gram/dose oral powder sodium phosphates 19 gram-7 118 ml ME DAILY PRN constipation 06/01/23 gram/118 mL enema (Fleet Enema) #532 mL Allergies Allergy/AdvReac Type Severity Reaction Status Date / Time amoxicillin [From Augmentin] Allergy Verified 03/07/23 12:07 clavulanic acid Allergy Verified 03/07/23 12:07 [From Augmentin] oxycodone Allergy Verified 03/07/23 12:07 PFS <Micheal Leon MD - Last Filed: 05/31/23 23:58> [facility] Disclaimer: The information contained in this section may have been updated after the patient was seen, as this information can be updated by other users. Medical History (Updated 06/01/23 @ 02:01 by Federico Benjamin MD) Acute hepatic encephalopathy Anxiety Bipolar 1 disorder Cellulitis Cirrhosis of liver Cognitive impairment Encephalopathy Fall Hypertension Hypothyroid Hypothyroidism Metabolic encephalopathy Murmur, heart Obstructive sleep apnea Respiratory failure SIRS (systemic inflammatory response syndrome) UTI (urinary tract infection) Surgical History H/O section H/O hernia repair Hx of appendectomy Social History (Updated 05/13/23 @ 23:15 by Sandi Espinoza RN) Smoking Status: Never smoker alcohol intake: never current occupational status: disabled Travel in the last 8 weeks: None <Micheal Leon MD - Last Filed: 05/31/23 23:58> ROS Obtained: Yes All systems reviewed & no additional complaints except as documented Physical Exam <Micheal Leon MD - Last Filed: 05/31/23 23:58> General General appearance: alert and in no apparent distress Head Head exam: atraumatic and normocephalic Eye Eye exam: Present normal appearance, PERRL and EOMI ENT ENT exam: Present mucous membranes moist Neck Neck exam: Present normal inspection, full ROM and trachea midline Respiratory Respiratory exam: Absent respiratory distress, wheezes, stridor, accessory muscle use or prolonged expiratory phase Cardiovascular Cardiovascular exam: Present normal rhythm Abdominal Exam Abdominal exam: Present soft; Absent distention, tenderness, guarding, rebound or rigidity Extremities Exam Extremities exam: Absent edema Neurological Exam Neurological exam: Present alert, oriented X3, CN II-XII intact and normal gait; Absent motor sensory deficit Skin Skin exam: Present warm and dry; Absent diaphoresis or erythema Medical Decision Making <Micheal Leon MD - Last Filed: 05/31/23 23:58> Medical Records Medical records reviewed: Yes I reviewed the patient's medical records. Darrian Inquiry Pt receiving controlled substance: No Darrian was queried for this patient: No Vital Signs: 05/31/23 21:35 05/31/23 23:00 06/01/23 02:06 Temperature 98.4 F 98.4 F Temperature Source Oral Oral Pulse Rate 65 61 Pulse Rate [Right] 72 Respiratory Rate 16 16 Blood Pressure 118/72 125/73 Blood Pressure [Right Arm] 140/81 Blood Pressure Mean 96 Blood Pressure Mean [Right Arm] 100 02 Sat by Pulse Oximetry 97 98 Lab Data Lab Results 05/31/23 21:48: WBC 2.7 L, RBC 3.66 L, Hgb 12.2, Hct 36.2 L, MCV 98.9, MCH 33.4 H, MCHC 33.8, RDW 14.8, Plt Count 96 L, MPV 8.2, Neut % (Auto) 49.8, Lymph % (Auto) 37.1, [place] % (Auto) 8.3, Eos % (Auto) 4.2, Baso % (Auto) 0.6, Neut # (Auto) 1.3 L, Lymph # (Auto) 1.0, Dewitt # (Auto) 0.2, Eos # (Auto) 0.1, Baso # (Auto) 0.0, Sodium 138, Potassium 4.1, Chloride 109 H, Carbon Dioxide 30, Anion Gap 3.1 L, BUN 11, Creatinine 0.90, Estimated Creat Clear 79, Estimated GFR 66, Est GFR ( Amer) 80, Glucose 78, Calcium 8.6, Total Bilirubin 1.1, AST 97 H, ALT 40, Alkaline Phosphatase 69, Total Protein 7.0, Albumin 3.3 L, Globulin 3.7 H, Albumin/Globulin Ratio 0.9 L, Lipase 197 06/01/23 00:24: Urine Color Dark yellow, Urine Appearance Cloudy, Urine pH 6.5, Ur Specific [place] 1.020, Urine Protein 1+, Urine Glucose (UA) Negative, Urine Ketones Negative, Urine Blood 3+, Urine Nitrate Negative, Urine Bilirubin Negative, Urine Urobilinogen 1.0, Ur Leukocyte Esterase Negative, Urine RBC 20-50, Urine WBC 3-5, Ur Squamous Epith Cells 3-5, Urine Bacteria 1+ 05/31/23 21:48 05/31/23 21:48 Orders (Tests/Meds): ED MEDICATIONS Discontinued Medications Generic Name Dose Route Start Last Admin Trade Name Freq PRN Reason Stop Dose Admin Folic Acid 1 mg 06/01/23 09:00 05/31/23 22:21 Folic Acid 1mg Tablet PO 07/01/23 08:59 1 mg DAILY NATALIE Administration Lactated Ringer's 1,000 mls @ 999 mls/hr 05/31/23 22:12 05/31/23 22:21 Lactated Ringer's 1000 Ml Bag IV 05/31/23 23:12 999 mls/hr .Q1H1M ONE Administration Ketorolac Tromethamine 15 mg 05/31/23 22:12 05/31/23 22:20 Ketorolac 30mg/Ml Vial IV 05/31/23 22:13 15 mg ONCE ONE Administration Magnesium Citrate 10 oz 06/01/23 01:56 06/01/23 01:58 Magnesium Citrate 10oz Bottle PO 06/01/23 01:57 10 oz ONCE ONE Administration Sodium Phosphate 133 ml 06/01/23 01:13 06/01/23 01:17 Sodium Phos/Biphosphate Fleet 133ml Enema RC 06/01/23 01:14 133 ml ONCE ONE Administration Thiamine HCl 100 mg 05/31/23 22:12 05/31/23 22:21 Thiamine 100mg Tablet PO 05/31/23 22:13 100 mg ONCE ONE Administration ORDERS Category Date Time Status KUB (single view) [XR KUB] Stat Exams 05/31/23 23:56 Completed Complete Blood Count Auto Diff Stat Lab 05/31/23 21:48 Completed Comprehensive Metabolic Panel Stat Lab 05/31/23 21:48 Completed Lipase Stat Lab 05/31/23 21:48 Completed UA [Urinalysis and Microscopic] Stat Lab 06/01/23 00:24 Completed Medical Decision Narrative: 53-year-old male who does not know any of her morbid use or any and she takes presenting with abdominal pain. States that she is abdominal pain all over, and that she has not pooped in over a month. Does not know if she has been having dysuria, hematuria, or any other urinary symptoms. No fevers or chills, nausea or vomiting. Does not remember if she has had any surgeries. Should be noted that patient does not know anything about her health history which is complicating care. History was obtained via conversation with patient. On arrival, patient hemodynamically stable, alert, oriented to person and place, appropriate, GCS 15, moving all extremities spontaneously, pupils equal and reactive to light. Full physical exam performed and significant for soft, nondistended, nontender abdomen on my exam. No flank tenderness. No evidence of peritonitis. Patient is afebrile, nontachycardic, normotensive with no overlying abdominal skin changes. Differential includes gastritis, enteritis, constipation, pancreatitis, UTI, nephrolithiasis, among others. Workup independently interpreted and significant for nonactionable CBC or chemistry. Urine pending at time of handoff to oncoming physician. <Federico Benjamin MD - Last Filed: 06/01/23 02:46> Vital Signs: 05/31/23 21:35 05/31/23 23:00 06/01/23 02:06 Temperature 98.4 F 98.4 F Temperature Source Oral Oral Pulse Rate 65 61 Pulse Rate [Right] 72 Respiratory Rate 16 16 Blood Pressure 118/72 125/73 Blood Pressure [Right Arm] 140/81 Blood Pressure Mean 96 Blood Pressure Mean [Right Arm] 100 02 Sat by Pulse Oximetry 97 98 Lab Data Lab Results 05/31/23 21:48: WBC 2.7 L, RBC 3.66 L, Hgb 12.2, Hct 36.2 L, MCV 98.9, MCH 33.4 H, MCHC 33.8, RDW 14.8, Plt Count 96 L, MPV 8.2, Neut % (Auto) 49.8, Lymph % (Auto) 37.1, [place] % (Auto) 8.3, Eos % (Auto) 4.2, Baso % (Auto) 0.6, Neut # (Auto) 1.3 L, Lymph # (Auto) 1.0, [place] # (Auto) 0.2, Eos # (Auto) 0.1, Baso # (Auto) 0.0, Sodium 138, Potassium 4.1, Chloride 109 H, Carbon Dioxide 30, Anion Gap 3.1 L, BUN 11, Creatinine 0.90, Estimated Creat Clear 79, Estimated GFR 66, Est GFR ( Amer) 80, Glucose 78, Calcium 8.6, Total Bilirubin 1.1, AST 97 H, ALT 40, Alkaline Phosphatase 69, Total Protein 7.0, Albumin 3.3 L, Globulin 3.7 H, Albumin/Globulin Ratio 0.9 L, Lipase 197 06/01/23 00:24: Urine Color Dark yellow, Urine Appearance Cloudy, Urine pH 6.5, Ur Specific [place] 1.020, Urine Protein 1+, Urine Glucose (UA) Negative, Urine Ketones Negative, Urine Blood 3+, Urine Nitrate Negative, Urine Bilirubin Negative, Urine Urobilinogen 1.0, Ur Leukocyte Esterase Negative, Urine RBC 20-50, Urine WBC 3-5, Ur Squamous Epith Cells 3-5, Urine Bacteria 1+ Orders (Tests/Meds): ED MEDICATIONS Discontinued Medications Generic Name Dose Route Start Last Admin Trade Name Lenard PRN Reason Stop Dose Admin Folic Acid 1 mg 06/01/23 09:00 05/31/23 22:21 Folic Acid 1mg Tablet PO 07/01/23 08:59 1 mg DAILY NATALIE Administration Lactated Ringer's 1,000 mls @ 999 mls/hr 05/31/23 22:12 05/31/23 22:21 Lactated Ringer's 1000 Ml Bag IV 05/31/23 23:12 999 mls/hr .Q1H1M ONE Administration Ketorolac Tromethamine 15 mg 05/31/23 22:12 05/31/23 22:20 Ketorolac 30mg/Ml Vial IV 05/31/23 22:13 15 mg ONCE ONE Administration Magnesium Citrate 10 oz 06/01/23 01:56 06/01/23 01:58 Magnesium Citrate 10oz Bottle PO 06/01/23 01:57 10 oz ONCE ONE Administration Sodium Phosphate 133 ml 06/01/23 01:13 06/01/23 01:17 Sodium Phos/Biphosphate Fleet 133ml Enema RC 06/01/23 01:14 133 ml ONCE ONE Administration Thiamine HCl 100 mg 05/31/23 22:12 05/31/23 22:21 Thiamine 100mg Tablet PO 05/31/23 22:13 100 mg ONCE ONE Administration ORDERS Category Date Time Status KUB (single view) [XR KUB] Stat Exams 05/31/23 23:56 Completed Complete Blood Count Auto Diff Stat Lab 05/31/23 21:48 Completed Comprehensive Metabolic Panel Stat Lab 05/31/23 21:48 Completed Lipase Stat Lab 05/31/23 21:48 Completed UA [Urinalysis and Microscopic] Stat Lab 06/01/23 00:24 Completed Medical Decision Narrative: 53-year-old male who does not know any of her morbid use or any and she takes presenting with abdominal pain. States that she is abdominal pain all over, and that she has not pooped in over a month. Does not know if she has been having dysuria, hematuria, or any other urinary symptoms. No fevers or chills, nausea or vomiting. Does not remember if she has had any surgeries. Should be noted that patient does not know anything about her health history which is complicating care. History was obtained via conversation with patient. On arrival, patient hemodynamically stable, alert, oriented to person and place, appropriate, GCS 15, moving all extremities spontaneously, pupils equal and reactive to light. Full physical exam performed and significant for soft, nondistended, nontender abdomen on my exam. No flank tenderness. No evidence of peritonitis. Patient is afebrile, nontachycardic, normotensive with no overlying abdominal skin changes. Differential includes gastritis, enteritis, constipation, pancreatitis, UTI, nephrolithiasis, among others. Workup independently interpreted and significant for nonactionable CBC or chemistry. Urine pending at time of handoff to oncoming physician. Sourav PARADA: I assumed care of the patient at the time of handoff from the prior provider. On reassessment, patient continues to have benign abdominal exam. Urine shows chronic hematuria of uncertain etiology, does not appear to be an acute UTI. Her KUB shows large colonic stool burden without obvious obstructive pathology. Patient was given an enema in the ED with large volume stool output. Patient was instructed to use enemas at home as well as take laxatives as prescribed with goal of having daily soft stools. Encouraged her to follow-up for reassessment of her chronic hematuria as this could be a sign of a more significant underlying condition. Critical Care <Micheal Leon MD - Last Filed: 05/31/23 23:58> Critical Care Time Critical Care Time: No
--- NOTE | 2023-05-31 23:56 | XR_ITS ---
PROCEDURE INFORMATION: Exam: XR Abdomen Exam date and time: 06/01/2023 12:00 AM Age: 53 years old Clinical indication: Abdominal pain; Additional info: Abd pain TECHNIQUE: Imaging protocol: Radiologic exam of the abdomen. Views: Frontal supine view of the abdomen. 1 View. COMPARISON: CT ABDOMEN PELVIS W CON 05/13/2023 9:25 PM FINDINGS: Gastrointestinal tract: There is a large volume of stool throughout the colon which may reflect constipation. Intraperitoneal space: Standard views of the abdomen were obtained. No evidence of obstruction, perforation, or free intraperitoneal air is observed. There are right upper quadrant surgical clips suggesting prior cholecystectomy. Organs: Liver, spleen, and renal shadows appear unremarkable. Bones/joints: Unremarkable. Soft tissues: Ventral abdominal wall tacks from prior hernia repair. IMPRESSION: At the time of imaging, the abdominal radiograph demonstrates large volume stool throughout the colon which may reflect constipation.
[2023-06-01 00:30] LABS: Microscopic, Urine URINE MICROSCOPIC (MICROSCOPIC)
[2023-06-01 00:34] LABS: Bilirubin,Urine Negative (Negative); Blood, Urine 3+ (Negative); Glucose,Urine (UA) Negative (Negative); Ketones,Urine Negative (Negative); Leukocyte Esterase,Urine Negative (Negative); Nitrate,Urine Negative (Negative); PH,Urine 6.5 (5.0-8.5); Protein,Urine 1+ (Negative)
[2023-06-01 00:57] LABS: Color,Urine Dark Yellow (Yellow)
[2023-06-01 00:58] LABS: Appearance,Urine Cloudy (Clear); RBC,Urine 20-50 #/hpf (0-3)
[2023-06-01 00:59] LABS: Bacteria,Urine 1+ /lpf
[2023-06-01] MEDS: SODIUM PHOS/BIPHOSPHATE FLEET 133ML ENEMA 133 ML RC (01:17)
[2023-06-01] MEDS: MAGNESIUM CITRATE 10OZ BOTTLE 10 OZ PO (01:58)
[2023-06-01 02:06] VITALS: BP 125/73; PULSE 61; RESP 16; TEMP 36.9; O2SAT 97
== END 2023-06-01 02:25 | disposition home or self-care (01) ==
PROVIDERS: Emergency Provider Emergency Medicine
DX: R10.32 Left lower quadrant pain (principal); K59.00 Constipation, unspecified; R31.29 Other microscopic hematuria; I10 Essential (primary) hypertension; K74.60 Unspecified cirrhosis of liver; E03.9 Hypothyroidism, unspecified; R01.1 Cardiac murmur, unspecified; G47.33 Obstructive sleep apnea (adult) (pediatric)
CPT/HCPCS: 74018; 80053; 81001; 83690; 85025; 96361; 96374; 99285

== ENCOUNTER 2023-06-26 01:28 | Emergency (ER) | payer MEDICAID, SELFPAY ==
[2023-06-26] VITALS (8 sets, daily range): BP systolic 115–133; BP diastolic 66–78; PULSE 61–69; RESP 14–18; TEMP 36.6–37.1; O2SAT 93–97; BMI 33.3
--- NOTE | 2023-06-26 01:30 | CT_ITS ---
PROCEDURE INFORMATION: Exam: CT Head Without Contrast Exam date and time: 06/26/2023 1:44 AM Age: 53 years old Clinical indication: Injury or trauma; Fall; Additional info: Fall, baseline slight AMS TECHNIQUE: Imaging protocol: Computed tomography of the head without contrast. Radiation optimization: All CT scans at this facility use at least one of these dose optimization techniques: automated exposure control; mA and/or kV adjustment per patient size (includes targeted exams where dose is matched to clinical indication); or iterative reconstruction. COMPARISON: CT HEAD/BRAIN WO CON 05/13/2023 9:13 PM FINDINGS: Brain: [id number] atrophy. No intracranial hemorrhage. No mass. Multiple scattered foci of decreased attenuation within periventricular/subcortical white matter. No edema. Cerebral ventricles: No hydrocephalus. Paranasal sinuses: Complete opacification of maxillary sinuses. Partial opacification of ethmoid sinuses. Complete opacification of RIGHT sphenoid sinus. Scattered mild mucosal thickening of remaining sinuses. Mastoid air cells: No significant effusion. Orbital cavities: Unremarkable as visualized. Bones/joints: No acute fracture. Soft tissues: LEFT maxillary soft tissue swelling. IMPRESSION: 1. No intracranial hemorrhage. 2. Probable chronic microvascular ischemic changes. 3. Sinus disease.
--- NOTE | 2023-06-26 01:31 | CT_ITS ---
PROCEDURE INFORMATION: Exam: CT Cervical Spine Without Contrast Exam date and time: 06/26/2023 1:46 AM Age: 53 years old Clinical indication: Injury or trauma; Fall TECHNIQUE: Imaging protocol: Computed tomography of the cervical spine without contrast. Radiation optimization: All CT scans at this facility use at least one of these dose optimization techniques: automated exposure control; mA and/or kV adjustment per patient size (includes targeted exams where dose is matched to clinical indication); or iterative reconstruction. COMPARISON: CT CERVICAL SPINE WO CON 05/13/2023 9:18 PM FINDINGS: Bones/joints: No acute fracture. Normal alignment. Straightening of cervical spine. Facet osteoarthrosis within upper cervical spine. Mild degenerative disc disease within mid cervical spine. Paranasal sinuses: Complete opacification of visualized maxillary sinuses. Complete opacification of visualized RIGHT sphenoid sinus. Scattered mild mucosal thickening of remaining sinuses. Lungs: Unremarkable as visualized. Soft tissues: Unremarkable. IMPRESSION: 1. No fracture. 2. Sinus disease.
--- NOTE | 2023-06-26 01:32 | ED_ITS ---
Discharge Plan Disposition Patient Disposition: Home, Self-Care Condition: Good Prescriptions Prescriptions: No Action amitriptyline 50 mg Tablet 50 mg PO HS carvedilol 3.125 mg Tablet 3.125 mg PO BID levothyroxine 100 mcg Tablet 100 mcg PO AM pantoprazole 40 mg Tablet,Delayed Release (Dr/Ec) 40 mg PO DAILY duloxetine 30 mg Capsule,Delayed Release(Dr/Ec) 30 mg PO DAILY melatonin 5 mg tablet 5 mg PO HS oxcarbazepine 300 mg tablet 300 mg PO BID amlodipine 5 mg tablet 5 mg PO DAILY pyridoxine (vitamin B6) 50 mg tablet 50 mg PO DAILY acetaminophen 325 mg Tablet 325 mg PO QID PRN (Reason: Pain) cyclobenzaprine 5 mg Tablet 5 mg PO TID PRN (Reason: Muscle Pain ) ferrous sulfate 324 mg (65 mg iron) tablet,delayed release (DR/EC) 324 mg PO DAILY Xifaxan 550 mg Tablet 550 mg PO BID 30 Days Qty: 60 0RF lactulose 20 gram/30 mL Solution 20 g PO BID 14 Days Qty: 840 0RF polyethylene glycol 3350 17 gram/dose powder 17 g PO QID 14 Days Qty: 952 0RF Fleet Enema 19-7 gram/118 mL enema 118 ml NV DAILY PRN (Reason: constipation) Qty: 532 0RF Activity Restrictions/Add. Instructions Additional Instructions/Restrictions: You were evaluated in the ER. You do not have any findings of injury. Continue taking all home medications as previously prescribed. Make an appointment with your primary care physician for reevaluation in 2 to 3 days. Return to the ER with new, worsening, or otherwise concerning symptoms. Clinical Impressions Clinical Impression: Fall Discharge ED Provider: Barb Jovel General Adult HPI General Chief complaint: Fall Stated complaint: Fall Time Seen by Provider: 06/26/23 01:32 History of Present Illness HPI narrative: 53-year-old female, resident of [facility], presents to the ER after concerns of fall from bed. Around 12:50 AM patient states she rolled over and fell out of bed striking her head on the nightstand. She did not lose consciousness. No blood thinners. Patient is not complaining of any neck pain, numbness, tingling, weakness, she does state that the right posterior part of her head is sore but she does not have any dizziness. At baseline she is GCS 14 per EMS. In route with EMS they report her vitals were stable and she had a blood glucose of 86. Patient has no other complaints at this time. Related Data Home Medications Medication Instructions Recorded Confirmed amitriptyline 50 mg tablet 50 mg PO HS 05/02/22 06/26/23 carvedilol 3.125 mg tablet 3.125 mg PO BID 05/02/22 06/26/23 duloxetine 30 mg capsule,delayed 30 mg PO DAILY 05/02/22 06/26/23 release levothyroxine 100 mcg tablet 100 mcg PO AM 05/02/22 06/26/23 pantoprazole 40 mg tablet,delayed 40 mg PO DAILY 05/02/22 06/26/23 release melatonin 5 mg tablet 5 mg PO HS 05/03/22 06/26/23 oxcarbazepine 300 mg tablet 300 mg PO BID 02/20/23 06/26/23 amlodipine 5 mg tablet 5 mg PO DAILY 02/21/23 06/26/23 pyridoxine (vitamin B6) 50 mg 50 mg PO DAILY 02/21/23 06/26/23 tablet acetaminophen 325 mg tablet 325 mg PO QID PRN Pain 05/14/23 06/26/23 cyclobenzaprine 5 mg tablet 5 mg PO TID PRN Muscle Pain 05/14/23 06/26/23 ferrous sulfate 324 mg (65 mg 324 mg PO DAILY 05/14/23 06/26/23 iron) tablet,delayed release Previous Rx's Medication Instructions Recorded lactulose 20 gram/30 mL oral 20 g (30 mL) PO BID 14 days #840 mL 05/16/23 solution rifaximin 550 mg tablet (Xifaxan) 550 mg PO BID 30 days #60 tabs 05/16/23 polyethylene glycol 3350 17 17 g PO QID 2 weeks #952 grams 06/01/23 gram/dose oral powder sodium phosphates 19 gram-7 118 ml NV DAILY PRN constipation 06/01/23 gram/118 mL enema (Fleet Enema) #532 mL Allergies Allergy/AdvReac Type Severity Reaction Status Date / Time amoxicillin [From Augmentin] Allergy Verified 03/07/23 12:07 clavulanic acid Allergy Verified 03/07/23 12:07 [From Augmentin] oxycodone Allergy Verified 03/07/23 12:07 [facility] Disclaimer: The information contained in this section may have been updated after the patient was seen, as this information can be updated by other users. Medical History (Updated 06/26/23 @ 01:43 by Barb Jovel MD) Acute hepatic encephalopathy Anxiety Bipolar 1 disorder Cellulitis Cirrhosis of liver Cognitive impairment Encephalopathy Fall Hypertension Hypothyroid Hypothyroidism Metabolic encephalopathy Murmur, heart Obstructive sleep apnea Respiratory failure SIRS (systemic inflammatory response syndrome) UTI (urinary tract infection) Surgical History H/O section H/O hernia repair Hx of appendectomy Social History (Updated 05/13/23 @ 23:15 by Sandi Espinoza RN) Smoking Status: Never smoker alcohol intake: never current occupational status: disabled Travel in the last 8 weeks: None ROS Obtained: Yes All systems reviewed & no additional complaints except as documented Constitutional Constitutional: Denies chills, Denies fever(s), Reports headache(s) (R posterior head) and Denies weakness Eyes Eyes: Denies change in vision ENT Ears, Nose, Mouth, and Throat: Denies dizziness, Reports headache(s) (R posterior head), Denies nasal congestion and Denies sore throat Cardiovascular Cardiovascular: Denies chest pain, Denies dyspnea and Denies leg edema Respiratory Respiratory: Denies cough and Denies dyspnea Gastrointestinal Gastrointestingal: Denies constipation, diarrhea, nausea or vomiting Genitourinary Female Genitourinary: Denies dysuria Musculoskeletal Musculoskeletal: Denies arthralgias, Denies myalgias, Denies numbness and Denies tingling Integumentary/Breasts Skin/Breast: Denies change in pigmentation Neurologic Neurologic: Denies dizziness, Reports headache(s) (R posterior head), Denies numbness, Denies tingling and Denies weakness Physical Exam General General appearance: alert and in no apparent distress Head Head exam: atraumatic, normocephalic and other (No hematoma, abrasion, or laceration appreciated on the scalp) Eye Eye exam: Present PERRL and EOMI ENT ENT exam: Present mucous membranes moist and other (No findings of facial injury) Neck Neck exam: Present normal inspection and full ROM Chest Chest inspection: Present symmetric chest wall rise; Absent tenderness Respiratory Respiratory exam: Present normal lung sounds bilaterally; Absent respiratory distress, wheezes or stridor Cardiovascular Cardiovascular exam: Present regular rate and normal rhythm Abdominal Exam Abdominal exam: Present soft; Absent distention, tenderness, guarding or rebound Extremities Exam Extremities exam: Present full ROM and normal capillary refill; Absent tenderness Back Exam Back exam: Present normal inspection; Absent tenderness Neurological Exam Neurological exam: Present alert, oriented X3 (Oriented to self, birthday, location, disoriented to year which is reportedly her baseline) and CN II-XII intact; Absent motor sensory deficit Psychiatric Psychiatric exam: Present normal affect and normal mood Skin Skin exam: Present warm and dry Medical Decision Making Darrian Inquiry Pt receiving controlled substance: No Vital Signs: 06/26/23 01:28 Temperature 97.8 F Temperature Source Oral Pulse Rate [Right Radial] 65 Respiratory Rate 18 Blood Pressure [Right Arm] 115/66 Blood Pressure Mean [Right Arm] 82 Blood Pressure Source [Right Arm] Automatic Cuff Blood Pressure Position [Right Arm] Supine 02 Sat by Pulse Oximetry 93 L Oxygen Delivery Method Room Air Orders (Tests/Meds): ORDERS Category Date Time Status CT cervical spine wo con Stat Cat Scan 06/26/23 01:[address] head/brain wo con Stat Cat Scan 06/26/23 01:30 Taken POC Glucose,Bedside Stat Lab 06/26/23 01:32 Ordered Medical Decision Narrative: In summary, this 53year old female presents to the emergency department today with concerns of pain on the right side of her head after a fall. On initial evaluation patient is hemodynamically stable, afebrile, GCS is at baseline, no focal neurologic deficits, no findings of traumatic injury on exam. Due to patient's baseline slight alteration in mental status I do not believe I can clear her from [place] head or C-spine rules so she requires CT imaging of the head and neck. differential diagnosis includes but is not limited to intracranial bleed, skull fracture, fracture or malalignment of the cervical spine though I have low suspicion given patient's neuro exam and physical exam. I reviewed medical records which demonstrate patient has recent admission for hepatic encephalopathy and recent evaluation for constipation. Her other medical problems include bipolar disorder. Patient states she feels well and she is at her baseline so I do not believe additional workup beyond CT imaging is necessary at this time though I did order [id number] glucose since her initial with EMS was 86. Medicare glucose in the ED was 67 so patient was allowed to p.o. Her blood glucose improved to 83. Patient takes no glucose modulating medications. CT head personally interpreted does not demonstrate any acute intracranial abnormality, CT cervical spine personally interpreted does not demonstrate any fracture or malalignment, see radiology reads for final interpretations. On further blood glucose recheck, her sugar remains stable with most recent level 88. She is appropriate for discharge at this time. Discharge instructions were provided the patient and conveyed to [facility]. Patient was given instructions on symptomatic management, follow up instructions, and return precautions for the emergency department. Patient indicated understanding and was discharged in stable condition. Critical Care Critical Care Time Critical Care Time: No
--- NOTE | 2023-06-26 01:39 | PC.NURSE ---
FSBG 67. Notified provider. Provided patient with sugared soda to drink at this time.
--- NOTE | 2023-06-26 02:44 | PC.NURSE ---
Called [facility] and Marybel the technical product manager multiple times and it states that those numbers are not available at this time. Nelda called [facility] and they advised her that they will not have a rear load truck driver until 0700 and will send someone after that. CR
--- NOTE | 2023-06-26 02:48 | PC.NURSE ---
notified electric[employer] that [facility] states they wont have a lifter driver until 7am
--- NOTE | 2023-06-26 03:03 | PC.NURSE ---
[facility] staff called back to let us know they aren't able to reach Marybel (duncan loza) either
== END 2023-06-26 07:06 | disposition home or self-care (01) ==
PROVIDERS: Emergency Provider Emergency Medicine; PCP Nurse Practitioner Acute Care
DX: S09.8XXA Other specified injuries of head, initial encounter (principal); K74.60 Unspecified cirrhosis of liver; F31.9 Bipolar disorder, unspecified; I10 Essential (primary) hypertension; E03.9 Hypothyroidism, unspecified; G47.33 Obstructive sleep apnea (adult) (pediatric); W06.XXXA Fall from bed, initial encounter
CPT/HCPCS: 70450; 72125; 99285

== ENCOUNTER 2023-07-18 15:50 | Inpatient (IN) | payer MEDICAID, SELFPAY ==
[2023-07-18] VITALS (10 sets, daily range): BP systolic 134–161; BP diastolic 72–86; PULSE 63–90; RESP 16–18; TEMP 36.3–36.7; O2SAT 94–98; BMI 30.1; BMI 39.5
--- NOTE | 2023-07-18 15:54 | ED_ITS ---
<Statement entered by Lizeth Pierre DO - 07/18/23 20:44> I was consulted by the PHAM, and we discussed the complexity of the problems being addressed. I approved the treatment and management plan for this patient's care in the emergency department, thus performing a substantive portion of the medical decision making. Lizeth Pierre DO Discharge Plan Disposition Patient Disposition: Admitted Clinical Impressions Clinical Impression: Toxic metabolic encephalopathy, Encephalopathy, hepatic, Shortness of breath Neutropenia Qualifiers: Neutropenia type: unspecified Qualified Code(s): D70.9 - Neutropenia, unspecified Discharge ED Provider: Lizeth Pierre General Adult HPI <NADEEN Galvin - Last Filed: 07/18/23 18:33> General Chief complaint: Shortness of Breath/Dyspnea Stated complaint: SOA Time Seen by Provider: 07/18/23 15:54 History of Present Illness HPI narrative: Patient presents for reported history of shortness of breath. Patient is a very poor historian and is very difficult to get coherent answers from currently. Do not know what her normal functional baseline is but she is answering only in 1 or 2 word sentences now. Patient is a resident of [facility] and EMS was called because the patient was reporting shortness of breath. She cannot answer and affirmative or the negative whether she has any chest pain fever chills hemoptysis hematochezia melena nausea vomiting diarrhea. Patient currently has a very whisper quiet voice and it seems very difficult for her to speak. She does have a history of [place] cirrhosis along with a long psychiatric history of bipolar disorder on multiple psychoactive medications, obesity and hypothyroidism.. Related Data Home Medications Medication Instructions Recorded Confirmed amitriptyline 50 mg tablet 50 mg PO HS 05/02/22 07/18/23 carvedilol 3.125 mg tablet 3.125 mg PO BID 05/02/22 07/18/23 duloxetine 30 mg capsule,delayed 30 mg PO DAILY 05/02/22 07/18/23 release levothyroxine 100 mcg tablet 100 mcg PO AM 05/02/22 07/18/23 pantoprazole 40 mg tablet,delayed 40 mg PO DAILY 05/02/22 07/18/23 release melatonin 5 mg tablet 5 mg PO HS 05/03/22 07/18/23 oxcarbazepine 300 mg tablet 300 mg PO BID 02/20/23 07/18/23 amlodipine 5 mg tablet 5 mg PO HS 02/21/23 07/18/23 pyridoxine (vitamin B6) 50 mg 50 mg PO DAILY 02/21/23 07/18/23 tablet acetaminophen 325 mg tablet 325 mg PO QID PRN Pain 05/14/23 07/18/23 cyclobenzaprine 5 mg tablet 5 mg PO TID PRN Muscle Pain 05/14/23 07/18/23 ferrous sulfate 324 mg (65 mg 324 mg PO DIRECTED 05/14/23 07/18/23 iron) tablet,delayed release albuterol sulfate 90 mcg/actuation 1 puff inhalation Q6H PRN soa 07/18/23 07/18/23 aerosol inhaler Previous Rx's Medication Instructions Recorded lactulose 20 gram/30 mL oral 20 g (30 mL) PO BID 14 days #840 mL 05/16/23 solution polyethylene glycol 3350 17 17 g PO QID 2 weeks #952 grams 06/01/23 gram/dose oral powder sodium phosphates 19 gram-[address] DAILY PRN constipation 06/01/23 gram/118 mL enema (Fleet Enema) #532 mL Allergies Allergy/AdvReac Type Severity Reaction Status Date / Time amoxicillin [From Augmentin] Allergy Verified 07/18/23 16:29 clavulanic acid Allergy Verified 07/18/23 16:29 [From Augmentin] oxycodone Allergy Verified 07/18/23 16:29 [facility] <NADEEN Galvin - Last Filed: 07/18/23 18:33> [facility] Disclaimer: The information contained in this section may have been updated after the patient was seen, as this information can be updated by other users. Medical History SIRS (systemic inflammatory response syndrome) Acute hepatic encephalopathy Bipolar 1 disorder Metabolic encephalopathy Respiratory failure Cellulitis Fall Hypothyroidism Hypertension UTI (urinary tract infection) Encephalopathy Cognitive impairment Murmur, heart Cirrhosis of liver Obstructive sleep apnea Hypothyroid Anxiety Surgical History H/O section H/O hernia repair Hx of appendectomy Family History (Updated 07/18/23 @ 18:48 by Rayne Lal RN) Other No significant family history Social History (Updated 07/18/23 @ 18:49 by Rayne Lal RN) Smoking Status: Never smoker alcohol intake: never current occupational status: disabled Travel in the last 8 weeks: None <NADEEN Galvin - Last Filed: 07/18/23 18:33> ROS Obtained: Yes unobtainable due to mental status and Yes unobtainable due to mental condition Physical Exam <NADEEN Galvin - Last Filed: 07/18/23 18:33> General General appearance: in no apparent distress and lethargic Head Head exam: atraumatic and normal inspection Eye Eye exam: Present normal appearance and PERRL ENT ENT exam: Present normal exam, normal oropharynx and mucous membranes moist Neck Neck exam: Present normal inspection, full ROM and trachea midline; Absent tenderness, lymphadenopathy or thyromegaly Chest Chest inspection: Present normal inspection and symmetric chest wall rise; Absent tenderness Respiratory Respiratory exam: Present normal lung sounds bilaterally; Absent respiratory distress, wheezes, stridor or accessory muscle use Cardiovascular Cardiovascular exam: Present regular rate, normal rhythm and normal heart sounds Abdominal Exam Abdominal exam: Present soft (Obese) and normal bowel sounds; Absent tenderness, guarding or rebound Extremities Exam Extremities exam: Present normal inspection Back Exam Back exam: Present normal inspection Neurological Exam Neurological exam: Present other (Glascow coma score is 13) Psychiatric Psychiatric exam: Present flat affect and other (Limited speech and answers appears to be awake but not alert nor oriented to person place or circumstance) Skin Skin exam: Present warm, dry and normal color Other Other exam information: In summary patient is a 53-year-old female who presents to the emergency department for evaluation of initially shortness of breath. Patient is hemodynamically stable afebrile satting at 98% on room air breathing 18 times a minute. Physical exam is remarkable for a very quiet whispering voice but is very limited and answers. Patient can only point but not described her complaint. Patient points to her throat and says that it is difficult to breathe. However patient is got normal air entry and excursion satting at greater than 94% on room air on the bedside pulse ox. There are no masses in her neck that are palpable. There are no obstructions in the posterior pharynx. Patient does not track well and appears to be disoriented and slow to answer if at all. Otherwise there are no focal findings that I can elicit on exam. Differential diagnosis includes viral or bacterial respiratory tract infection, vocal cord paralysis, space-occupying mass in the posterior pharynx/airway, stroke, bronchitis laryngitis. Initial workup will be conducted with hematologic labs twelve-lead EKG plain film chest x-ray CT scan of the soft tissues of the neck and CTA PE protocol of the chest. Initial interventions include Tylenol Toradol DuoNeb Decadron. Initial workup reviewed by me which shows neutropenia thrombocytopenia and hyperammonemia consistent with hepatic encephalopathy. My informal interpretation of her CAT scans does not show any acute processes with the radiologist read pending.. Given her significant hyperammonemia it begs a question that if this is a compliance issue given her underlying longstanding psychiatric history. I discussed patient management with the hospitalist and he has graciously agreed to admit. Medical Decision Making <NADEEN Galvin - Last Filed: 07/18/23 18:33> [facility]rian Inquiry Pt receiving controlled substance: No Vital Signs: 07/18/23 16:00 07/18/23 16:09 07/18/23 16:30 Temperature 97.8 F Temperature Source Oral Pulse Rate 63 69 Pulse Rate [Left] 72 Respiratory Rate 18 Blood Pressure 145/74 H 145/85 H Blood Pressure [Right Arm] 147/86 H Blood Pressure Mean 98 Blood Pressure Mean [Right Arm] 106 Blood Pressure Source [Right Arm] Automatic Cuff Blood Pressure Position [Right Arm] Sitting 02 Sat by Pulse Oximetry 98 98 95 Oxygen Delivery Method Room Air Room Air 07/18/23 17:31 07/18/23 18:43 Temperature 98.0 F Temperature Source Pulse Rate 70 70 Pulse Rate [Left] Respiratory Rate 16 Blood Pressure 134/72 134/72 Blood Pressure [Right Arm] Blood Pressure Mean Blood Pressure Mean [Right Arm] Blood Pressure Source [Right Arm] Blood Pressure Position [Right Arm] 02 Sat by Pulse Oximetry 95 Oxygen Delivery Method Lab Data Lab Results 07/18/23 16:10: SARS-CoV-2 (PCR) Not detected, Influenza A Untype (PCR) Not detected, Influenza Type B (PCR) Not detected 07/18/23 16:21: WBC 2.8 L, RBC 3.73 L, Hgb 12.5, Hct 38.4, MCV 102.9 H, MCH 33.5 H, MCHC 32.6, RDW 14.4, Plt Count 125 L, MPV 8.4, Neut % (Auto) 56.5, Lymph % (Auto) 30.7, [place] % (Auto) 7.2, Eos % (Auto) 4.0, Baso % (Auto) 1.5, Neut # (Auto) 1.6 L, Lymph # (Auto) 0.9, [place] # (Auto) 0.2, Eos # (Auto) 0.1, Baso # (Auto) 0.0, D-Dimer 0.42, Sodium 140, Potassium 4.8, Chloride 110 H, Carbon Dioxide 25, Anion Gap 9.8, BUN 10, Creatinine 0.90, Estimated Creat Clear 89, Estimated GFR 66, Est GFR ( Amer) 80, Glucose 85, Calcium 8.8, Total Bilirubin 1.2, AST 90 H, ALT 31, Alkaline Phosphatase 60, Troponin I 0.02, Total Protein 7.3, Albumin 3.8, Globulin 3.5 H, Albumin/Globulin Ratio 1.1 07/18/23 16:23: VBG pH 7.42 H, VBG pCO2 40.8, VBG pO2 75.2 H, VBG HCO3 25.8, VBG Total CO2 27.0, VBG O2 Saturation 94.9 H, VBG Base Excess 1.2, VBG Lactic Acid 1.4 07/18/23 16:35: Ammonia 152 H 07/18/23 16:21 07/18/23 16:21 Orders (Tests/Meds): ED MEDICATIONS Generic Name Dose Route Start Last Admin Trade Name Freq PRN Reason Stop Dose Admin Acetaminophen 325 mg 07/18/23 20:22 Acetaminophen 325mg Tab PO 08/17/23 20:21 Q6HP PRN Fever or Mild Pain (1-3) Amitriptyline HCl 50 mg 07/18/23 21:00 Amitriptyline 50mg Tablet PO 08/17/23 20:59 HS NATALIE Carvedilol 3.125 mg 07/18/23 21:00 Carvedilol 3.125mg Tablet PO 08/17/23 20:59 BID NATALIE Duloxetine HCl 30 mg 07/19/23 09:00 Duloxetine 30mg Capsule. PO 08/18/23 08:59 DAILY NATALIE Lactulose 20 gm 07/18/23 18:30 07/18/23 19:22 Lactulose 20gm/30ml Udc PO 08/17/23 18:29 20 gm Q4H NATALIE Administration Levothyroxine Sodium 100 mcg 07/19/23 07:00 Levothyroxine 100mcg (0.1mg) Tab PO 08/18/23 06:59 AM NATALIE Pantoprazole Sodium 40 mg 07/19/23 09:00 Pantoprazole 40mg Tablet PO 08/18/23 08:59 DAILY NATALIE Rifaximin 550 mg 07/18/23 21:00 Rifaximin 550mg Tablet PO 07/28/23 20:59 BID NATALIE Discontinued Medications Generic Name Dose Route Start Last Admin Trade Name Freq PRN Reason Stop Dose Admin Acetaminophen 1,000 mg 07/18/23 16:07 07/18/23 17:28 Acetaminophen 1,000mg/100ml Vial IV 07/18/23 16:08 1,000 mg ONCE ONE Administration Albuterol/Ipratropium 3 ml 07/18/23 16:07 07/18/23 17:15 Ipratropium/Albuterol 3 Ml Neb IH 07/18/23 16:08 3 ml ONCE ONE Administration Dexamethasone Sodium Phosphate 10 mg 07/18/23 16:07 07/18/23 17:14 Dexamethasone 4mg/Ml 1ml Vial IM 07/18/23 16:08 Not Given ONCE ONE Dexamethasone Sodium Phosphate 10 mg 07/18/23 16:13 07/18/23 17:29 Dexamethasone 4mg/Ml 5ml Mdv IV 07/18/23 16:14 10 mg ONCE ONE Administration Iopamidol 145 ml 07/18/23 17:26 07/18/23 17:27 Iopamidol-370 (76%);100ml Bottle IV 07/18/23 17:27 145 ml ONCE ONE Administration Ketorolac Tromethamine 15 mg 07/18/23 16:07 07/18/23 17:11 Ketorolac 30mg/Ml Vial IV 07/18/23 16:08 15 mg ONCE ONE Administration Sodium Chloride 10 ml 07/18/23 17:26 07/18/23 17:26 Sodium Chloride 0.9% 10ml Syr (Rad Only) IV 07/18/23 17:27 10 ml ONCE ONE Administration Sodium Chloride 50 ml 07/18/23 17:26 07/18/23 17:26 0.9 % Sodium Chloride 50 Ml Vial IV 07/18/23 17:27 50 ml ONCE ONE Administration ORDERS Category Date Time Status CT angio chest PE protocol Stat Cat Scan 07/18/23 16:[address] soft tissue neck w con Stat Cat Scan 07/18/23 16:34 Completed Chest XR -- portable [XR chest portable] Stat Exams 07/18/23 16:07 Completed Ammonia AMLAB Lab 07/19/23 06:00 Ordered Ammonia Stat Lab 07/18/23 16:35 Completed CBC w/Auto Diff [Complete Blood Count Auto Diff] Stat Lab 07/18/23 16:21 Completed CMP [Comprehensive Metabolic Panel] Stat Lab 07/18/23 16:21 Completed Complete Blood Count Auto Diff AMLAB Lab 07/19/23 06:00 Ordered Comprehensive Metabolic Panel AMLAB Lab 07/19/23 06:00 Ordered D-Dimer Stat Lab 07/18/23 16:21 Completed Magnesium AMLAB Lab 07/19/23 06:00 Ordered Rapid PCR Covid and Flu A/B Stat Lab 07/18/23 16:10 Completed Rapid Strep Scrn Group A [Strep Scrn Group A (Rapid)] Lab 07/18/23 16:08 Ordered Stat Trop I [Troponin I] Stat Lab 07/18/23 16:21 Completed Troponin I Q3H Lab 07/18/23 19:35 Completed Troponin I Q3H Lab 07/18/23 22:15 Ordered UA [Urinalysis and Microscopic] Stat Lab 07/18/23 16:08 Ordered UDS [Drug Screen,Urine] Stat Lab 07/18/23 16:08 Ordered VBG [Venous Blood Gas] Stat RT 07/18/23 16:23 Completed Medical Decision Narrative: In summary patient is a [age, sex] who presents to the emergency department for evaluation of [complaint]. Patient is [hemodynamically stable/unstable] upon arrival, [febrile/afebrile]. [Unremarkable physical exam, nonfocal exam versus focal remarkable exam]. Differential diagnosis includes [DDx]. Initial workup will be conducted with [hematologic labs, imaging, respiratory swab, describe workup]. Initial interventions include [crystalloid bolus, medications, p.o. challenge, etc.] initial workup reviewed by me [hematologic labs are remarkable for... Imaging remarkable for... Urinalysis remarkable for]. Upon repeat evaluation [patient had acceptable resolution of symptoms, had persistent pain for which additional interventions were conducted (describe interventions), tolerated p.o., was ambulatory, etc.]. Given this [patient is appropriate for discharge at this time and will be discharged with a prescription for... The case was discussed with hospital medicine regarding management and they will admit the patient their service for continued evaluation at this time... Etc.] Places where you can increase complexity: I informally interpreted the patient's chest x-ray or CT read and is remarkable for... Documenting what the monitor car operator shows with rate and rhythm Consideration of test but deferring. Ex: I considered chest x-ray on this patient however given that they have no oxygen requirement and are clear to auscultation all lung quez[place] will be deferred. Social determinants of health: Given that patient is undomiciled increases complexity. Given that patient has polysubstance abuse compounds all aspects of care <Lizeth Pierre, DO - Last Filed: 07/18/23 20:48> Vital Signs: 07/18/23 16:00 07/18/23 16:09 07/18/23 16:30 Temperature 97.8 F Temperature Source Oral Pulse Rate 63 69 Pulse Rate [Left] 72 Respiratory Rate 18 Blood Pressure 145/74 H 145/85 H Blood Pressure [Right Arm] 147/86 H Blood Pressure Mean 98 Blood Pressure Mean [Right Arm] 106 Blood Pressure Source [Right Arm] Automatic Cuff Blood Pressure Position [Right Arm] Sitting 02 Sat by Pulse Oximetry 98 98 95 Oxygen Delivery Method Room Air Room Air 07/18/23 17:31 07/18/23 18:43 Temperature 98.0 F Temperature Source Pulse Rate 70 70 Pulse Rate [Left] Respiratory Rate 16 Blood Pressure 134/72 134/72 Blood Pressure [Right Arm] Blood Pressure Mean Blood Pressure Mean [Right Arm] Blood Pressure Source [Right Arm] Blood Pressure Position [Right Arm] 02 Sat by Pulse Oximetry 95 Oxygen Delivery Method Lab Data Lab Results 07/18/23 16:10: SARS-CoV-2 (PCR) Not detected, Influenza A Untype (PCR) Not detected, Influenza Type B (PCR) Not detected 07/18/23 16:21: WBC 2.8 L, RBC 3.73 L, Hgb 12.5, Hct 38.4, MCV 102.9 H, MCH 33.5 H, MCHC 32.6, RDW 14.4, Plt Count 125 L, MPV 8.4, Neut % (Auto) 56.5, Lymph % (Auto) 30.7, [place] % (Auto) 7.2, Eos % (Auto) 4.0, Baso % (Auto) 1.5, Neut # (Auto) 1.6 L, Lymph # (Auto) 0.9, [place] # (Auto) 0.2, Eos # (Auto) 0.1, Baso # (Auto) 0.0, D-Dimer 0.42, Sodium 140, Potassium 4.8, Chloride 110 H, Carbon Dioxide 25, Anion Gap 9.8, BUN 10, Creatinine 0.90, Estimated Creat Clear 89, Estimated GFR 66, Est GFR ( Amer) 80, Glucose 85, Calcium 8.8, Total Bilirubin 1.2, AST 90 H, ALT 31, Alkaline Phosphatase 60, Troponin I 0.02, Total Protein 7.3, Albumin 3.8, Globulin 3.5 H, Albumin/Globulin Ratio 1.1 07/18/23 16:23: VBG pH 7.42 H, VBG pCO2 40.8, VBG pO2 75.2 H, VBG HCO3 25.8, VBG Total CO2 27.0, VBG O2 Saturation 94.9 H, VBG Base Excess 1.2, VBG Lactic Acid 1.4 07/18/23 16:35: Ammonia 152 H Orders (Tests/Meds): ED MEDICATIONS Generic Name Dose Route Start Last Admin Trade Name Freq PRN Reason Stop Dose Admin Acetaminophen 325 mg 07/18/23 20:22 Acetaminophen 325mg Tab PO 08/17/23 20:21 Q6HP PRN Fever or Mild Pain (1-3) Amitriptyline HCl 50 mg 07/18/23 21:00 Amitriptyline 50mg Tablet PO 08/17/23 20:59 HS NATALIE Carvedilol 3.125 mg 07/18/23 21:00 Carvedilol 3.125mg Tablet PO 08/17/23 20:59 BID NATALIE Duloxetine HCl 30 mg 07/19/23 09:00 Duloxetine 30mg Capsule. PO 08/18/23 08:59 DAILY NATALIE Lactulose 20 gm 07/18/23 18:30 07/18/23 19:22 Lactulose 20gm/30ml Udc PO 08/17/23 18:29 20 gm Q4H NATALIE Administration Levothyroxine Sodium 100 mcg 07/19/23 07:00 Levothyroxine 100mcg (0.1mg) Tab PO 08/18/23 06:59 AM NATALIE Pantoprazole Sodium 40 mg 07/19/23 09:00 Pantoprazole 40mg Tablet PO 08/18/23 08:59 DAILY NATALIE Rifaximin 550 mg 07/18/23 21:00 Rifaximin 550mg Tablet PO 07/28/23 20:59 BID NATALIE Discontinued Medications Generic Name Dose Route Start Last Admin Trade Name Freq PRN Reason Stop Dose Admin Acetaminophen 1,000 mg 07/18/23 16:07 07/18/23 17:28 Acetaminophen 1,000mg/100ml Vial IV 07/18/23 16:08 1,000 mg ONCE ONE Administration Albuterol/Ipratropium 3 ml 07/18/23 16:07 07/18/23 17:15 Ipratropium/Albuterol 3 Ml Neb IH 07/18/23 16:08 3 ml ONCE ONE Administration Dexamethasone Sodium Phosphate 10 mg 07/18/23 16:07 07/18/23 17:14 Dexamethasone 4mg/Ml 1ml Vial IM 07/18/23 16:08 Not Given ONCE ONE Dexamethasone Sodium Phosphate 10 mg 07/18/23 16:13 07/18/23 17:29 Dexamethasone 4mg/Ml 5ml Mdv IV 07/18/23 16:14 10 mg ONCE ONE Administration Iopamidol 145 ml 07/18/23 17:26 07/18/23 17:27 Iopamidol-370 (76%);100ml Bottle IV 07/18/23 17:27 145 ml ONCE ONE Administration Ketorolac Tromethamine 15 mg 07/18/23 16:07 07/18/23 17:11 Ketorolac 30mg/Ml Vial IV 07/18/23 16:08 15 mg ONCE ONE Administration Sodium Chloride 10 ml 07/18/23 17:26 07/18/23 17:26 Sodium Chloride 0.9% 10ml Syr (Rad Only) IV 07/18/23 17:27 10 ml ONCE ONE Administration Sodium Chloride 50 ml 07/18/23 17:26 07/18/23 17:26 0.9 % Sodium Chloride 50 Ml Vial IV 07/18/23 17:27 50 ml ONCE ONE Administration ORDERS Category Date Time Status CT angio chest PE protocol Stat Cat Scan 07/18/23 16:[address] soft tissue neck w con Stat Cat Scan 07/18/23 16:34 Completed Chest XR -- portable [XR chest portable] Stat Exams 07/18/23 16:07 Completed Ammonia AMLAB Lab 07/19/23 06:00 Ordered Ammonia Stat Lab 07/18/23 16:35 Completed CBC w/Auto Diff [Complete Blood Count Auto Diff] Stat Lab 07/18/23 16:21 Completed CMP [Comprehensive Metabolic Panel] Stat Lab 07/18/23 16:21 Completed Complete Blood Count Auto Diff AMLAB Lab 07/19/23 06:00 Ordered Comprehensive Metabolic Panel AMLAB Lab 07/19/23 06:00 Ordered D-Dimer Stat Lab 07/18/23 16:21 Completed Magnesium AMLAB Lab 07/19/23 06:00 Ordered Rapid PCR Covid and Flu A/B Stat Lab 07/18/23 16:10 Completed Rapid Strep Scrn Group A [Strep Scrn Group A (Rapid)] Lab 07/18/23 16:08 Ordered Stat Trop I [Troponin I] Stat Lab 07/18/23 16:21 Completed Troponin I Q3H Lab 07/18/23 19:35 Completed Troponin I Q3H Lab 07/18/23 22:15 Ordered UA [Urinalysis and Microscopic] Stat Lab 07/18/23 16:08 Ordered UDS [Drug Screen,Urine] Stat Lab 07/18/23 16:08 Ordered VBG [Venous Blood Gas] Stat RT 07/18/23 16:23 Completed ECG Data Tracing #1: I reviewed this ECG and interpreted as documented below: Sinus rhythm with a ventricular rate of [address] depressions noted in V4. Otherwise, EKG is not significantly changed from prior EKG. Does not meet STEMI criteria, but is slightly different from prior. ECG initial impression date: 07/18/23 ECG initial impression time: 15:56 HEART Score History (anamnesis): Slightly suspicious ECG: Normal Age: 45-65 years Risk factors: 1-2 risk factors Troponin: </= normal limit HEART Score: 2 Medical Decision Narrative: In summary, this patient is a 53-year-old female presenting to the Emergency Department for evaluation of difficulty breathing, hoarse voice. Differential diagnoses considered include but are not limited to viral syndrome, pharyngitis, laryngitis, laryngeal mass, laryngeal edema, pneumonia, respiratory failure. Ruling out the most morbid conditions drove assessment. Of note, patient does have unusual affect and mental status, with chronic history of liver dysfunction. It looks like she has been admitted before with concern for hepatic encephalopathy upon medical record review. Workup included broad lab evaluation including infectious and metabolic workup as well as CT scan of the soft tissue neck with IV contrast and CT PE protocol. EKG was obtained and was reassuring. I independently interpreted CT scans prior to the radiologist read and noted no obvious acute laryngeal masses or edema. No obvious large PE or focal consolidation. Please see their read for final interpretation. Labs were obtained that demonstrated significant elevated ammonia concerning for hepatic encephalopathy, but no other acutely concerning abnormalities. At this time, concern for possible hepatic encephalopathy with the patient's unusual affect, mental status, and significantly elevated ammonia. Given this, I had an interactive discussion with the hospitalist who admitted the patient for further evaluation and management. Critical Care <NADEEN Galvin - Last Filed: 07/18/23 18:33> Critical Care Time Critical Care Time: Yes Attestation: On 07/18/23, the high probability of a clinically significant, sudden or life threatening deterioration of the following system(s) required my full and direct attention, intervention and personal management. The time I documented below is in addition to time spent performing reported procedures but includes the following listed in this critical care notation. Total Time Total Critical Care Time: 30
--- NOTE | 2023-07-18 16:07 | XR_ITS ---
FINAL REPORT CLINICAL HISTORY: Dyspnea COMPARISON: 05/13/2023 FINDINGS: SINGLE-VIEW CHEST The heart size is normal. The mediastinum is normal. There are mild bibasilar opacities, favor atelectasis over pneumonia. There is no pneumothorax. IMPRESSION: Favor bibasilar atelectasis over pneumonia. Reviewed, Interpreted and Dictated by Cristian Coleman III, MD Transcribed by Debi Owen Authenticated and [facility]
[2023-07-18 16:25] LABS: Coronavirus 19, PCR Not Detected (NotDetected); Influenza A, PCR Not Detected (NotDetected); Influenza B, PCR Not Detected (NotDetected)
[2023-07-18 16:29] LABS: Basophils % 1.5 % (0.1-2.0); Eosinophils # 0.1 K/mm3 (0.0-0.4); Hematocrit 38.4 % (37.0-47.0); Hemoglobin 12.5 g/dL (12.2-16.2); Lymphocytes # 0.9 K/mm3 (0.7-4.5); Lymphocytes % 30.7 % (10-50); Mean Corpuscular HGB Conc 32.6 g/dL (31.8-35.4); Mean Corpuscular Hemoglobin 33.5 pg (27.0-31.2); Mean Corpuscular Volume 102.9 fl (81-99); Mean Platelet Volume 8.4 fl (7.4-10.4); Monocytes # 0.2 K/mm3 (0.1-1.0); Monocytes % 7.2 % (1.7-9.3); Neutrophils # 1.6 K/mm3 (1.8-7.8); Neutrophils % 56.5 % (37.0-80.0); Platelet Count 125 K/mm3 (142-424); Red Blood Count 3.73 M/mm3 (4.20-5.40); Red Cell Distribution Width 14.4 % (11.5-17.5); White Blood Count 2.8 K/mm3 (4.8-10.8)
[2023-07-18 16:30] LABS: Lactate Venous 1.4 mmol/L (0.4-2.0); VBG Base Excess 1.2 mmol/L (-2.4-2.3); VBG HCO3 25.8 mmol/L (23-30); VBG Oxygen Saturation 94.9 % (50-70); VBG PCO2 40.8 mmol/L (35-51); VBG PH 7.42 mmol/L (7.31-7.41); VBG PO2 75.2 mmol/L (28-40)
--- NOTE | 2023-07-18 16:34 | CT_ITS ---
PROCEDURE INFORMATION: Exam: CT Neck With Contrast Exam date and time: 07/18/2023 5:20 PM Age: 53 years old Clinical indication: Other: SOA TECHNIQUE: Imaging protocol: Computed tomography of the neck with contrast. Radiation optimization: All CT scans at this facility use at least one of these dose optimization techniques: automated exposure control; mA and/or kV adjustment per patient size (includes targeted exams where dose is matched to clinical indication); or iterative reconstruction. Contrast material: ISOVUE; Contrast volume: 75 ml; Contrast route: IV; COMPARISON: CT CERVICAL SPINE WO CON 06/26/2023 1:46 AM FINDINGS: Paranasal sinuses: There is chronic sinusitis, in particular mucosal disease nearly opacifying the right maxillary sinus. Pharynx: No significant tonsillar enlargement. Some limitations assessing the hypopharynx due to motion artifacts. Some luminal opacity is present potentially related to retained secretions. Larynx: Unremarkable. Epiglottis is normal. Prevertebral and retropharyngeal spaces: Unremarkable. Salivary glands: Normal. Glands are normal in size. Thyroid: Normal. No enlarged or calcified nodules. Lymph nodes: No pathologically enlarged lymph nodes. Trachea: Visualized trachea is unremarkable. Lungs: Unremarkable as visualized. Bones/joints: No acute fracture seen. [id number] cervical spine degenerative changes. Soft tissues: Unremarkable. No significant soft tissue swelling. IMPRESSION: The airway appears patent.
--- NOTE | 2023-07-18 16:34 | CT_ITS ---
PROCEDURE INFORMATION: Exam: CTA Chest With Contrast Exam date and time: 07/18/2023 5:22 PM Age: 53 years old Clinical indication: Shortness of breath; Additional info: SOA TECHNIQUE: Imaging protocol: Computed tomographic angiography of the chest with contrast. Exam focused on the arteries. 3D rendering (Not supervised by radiologist): MIP and/or 3D reconstructed images were created by the technologist. Radiation optimization: All CT scans at this facility use at least one of these dose optimization techniques: automated exposure control; mA and/or kV adjustment per patient size (includes targeted exams where dose is matched to clinical indication); or iterative reconstruction. Contrast material: ISOVUE 370; Contrast volume: 70 ml; Contrast route: INTRAVENOUS (IV); COMPARISON: 1. CT SOFT TISSUE NECK W CON 07/18/2023 5:[address] CERVICAL SPINE WO CON 06/26/2023 1:[address] ABDOMEN PELVIS W CON 05/13/2023 9:25 PM FINDINGS: Pulmonary arteries: There is fair opacification of the pulmonary arterial tree. No central pulmonary arterial filling defect is seen. Aorta: There is atherosclerotic disease of the visualized aorta and its major branch vessels. Other arteries: Subsegmental vessels are not well evaluated due to technical factors. Lungs: There is scattered ground-glass opacity which could reflect air trapping. Scattered areas of bronchial wall thickening which are likely chronic inflammatory. A few areas of subpleural reticulation are noted, nonspecific. Pleural spaces: Unremarkable. No pneumothorax. No pleural effusion. Heart: Unremarkable. No cardiomegaly. No pericardial effusion. Lymph nodes: Unremarkable. No enlarged lymph nodes. Liver: The liver demonstrates a cirrhotic morphology with nodular contour and volume redistribution. Gallbladder and bile ducts: The patient is status post cholecystectomy. Spleen: Partially visualized splenomegaly. Bones/joints: There is diffuse degenerative disease of the visualized osseous structures. Soft tissues: Unremarkable. Other findings: Motion artifact mildly limits evaluation. IMPRESSION: 1. No central pulmonary arterial filling defect is seen. Subsegmental vessels are not well evaluated due to patient motion and technical factors. 2. No dense parenchymal consolidation, pleural effusion, or pneumothorax.
[2023-07-18 16:40] LABS: Albumin Level 3.8 g/dl (3.5-5.0); Albumin/Globulin Ratio 1.1 (1.1-1.8); Alkaline Phosphatase 60 U/L (38-126); Anion Gap 9.8 mEq/L (5-15); Bilirubin,Total 1.2 mg/dl (0.2-1.3); Blood Urea Nitrogen 10 mg/dl (7-17); Calcium 8.8 mg/dl (8.4-10.2); Carbon Dioxide 25 mmol/L (22.0-30.0); Chloride 110 mmol/L (98-107); Creatinine Clearance Estimated 89 mL/min (50-200); Estimated Glomerular Filt Rate 66 ml/min (>60); GFR (African American) 80 ML/MIN (>60); Globulin 3.5 g/dL (1.3-3.2); Glucose 85 mg/dl (74-100); Potassium 4.8 mmoL/L (3.5-5.1); Sodium 140 mmol/L (136-145); Total Protein,Serum 7.3 g/dl (6.3-8.2)
[2023-07-18 16:46] LABS: D-Dimer 0.42 ug/mL (0.0-0.5)
[2023-07-18 16:52] LABS: Troponin I 0.02 ng/ml (0.00-0.034)
[2023-07-18 16:59] LABS: Ammonia 152 umol/L (9-30)
[2023-07-18 17:11] LABS: Alanine Aminotransferase 31 U/L (12-78); Aspartate Amino Transferase 90 U/L (14-36)
[2023-07-18] MEDS: KETOROLAC 30MG/ML VIAL 15 MG IV (17:11)
--- NOTE | 2023-07-18 17:14 | PC.NURSE ---
pt transported to radiology
[2023-07-18] MEDS: IPRATROPIUM/ALBUTEROL 3 ML NEB IH (17:15)
[2023-07-18] MEDS: 0.9 % SODIUM CHLORIDE 50 ML VIAL IV (17:26)
[2023-07-18] MEDS: SODIUM CHLORIDE 0.9% 10ML SYR (RAD ONLY) 10 ML IV (17:26)
[2023-07-18] MEDS: IOPAMIDOL-370 (76%);100ML BOTTLE 145 ML IV (17:27)
--- NOTE | 2023-07-18 17:27 | PC.NURSE ---
Rounded on patient , no needs voiced at this time.
[2023-07-18] MEDS: ACETAMINOPHEN 1,000MG/100ML VIAL 1000 MG IV (17:28)
[2023-07-18] MEDS: DEXAMETHASONE 4MG/ML 5ML MDV 10 MG IV (17:29)
--- NOTE | 2023-07-18 18:37 | PC.NURSE ---
report called to Rayne Combs on second floor
--- NOTE | 2023-07-18 18:42 | PC.NURSE ---
came by stretcher from ED
[2023-07-18] MEDS: LACTULOSE 20GM/30ML UDC 20 GM PO ×2 (19:22→23:30)
[2023-07-18 20:17] LABS: Troponin I < 0.01 ng/ml (0.00-0.034)
--- NOTE | 2023-07-18 20:24 | P.HP_ITS ---
History of Present Illness *Admission Date: 07/18/23 *Reason for visit:: AMS *History of present illness: This is a 53-year-old female who resides at [facility] with PMHx of cirrhosis, previous encephalopathy bipolar, on numerous psych medications. hypothyroidism, presented to the ED via EMS after reported been SOB. History is limited due to patient mental states. Per ED documentation and report from facility patient, EMS was called because the patient was reporting shortness of breath. She cannot answer and affirmative or the negative whether she has any chest pain fever chills hemoptysis hematochezia melena nausea vomiting diarrhea. Admitted for further management and treatment. [facility] Disclaimer: The information contained in this section may have been updated after the patient was seen, as this information can be updated by other users. Medical History (Updated 07/19/23 @ 06:34 by Dayday Barrow APRN) SIRS (systemic inflammatory response syndrome) Acute hepatic encephalopathy Bipolar 1 disorder Metabolic encephalopathy Respiratory failure Cellulitis Fall Hypothyroidism Hypertension UTI (urinary tract infection) Encephalopathy Cognitive impairment Murmur, heart Cirrhosis of liver Obstructive sleep apnea Hypothyroid Anxiety Surgical History H/O section H/O hernia repair Hx of appendectomy Family History (Updated 07/18/23 @ 18:48 by Rayne Lal RN) No significant family history Social History (Updated 07/18/23 @ 18:49 by Rayne Lal RN) Smoking Status: Never smoker alcohol intake: never current occupational status: disabled Travel in the last 8 weeks: None Meds Home Medications and Allergies Home Medications Medication Instructions Recorded Confirmed Type amitriptyline 50 mg tablet 50 mg PO HS 05/02/22 07/18/23 History carvedilol 3.125 mg tablet 3.125 mg PO BID 05/02/22 07/18/23 History duloxetine 30 mg capsule,delayed 30 mg PO DAILY 05/02/22 07/18/23 History release levothyroxine 100 mcg tablet 100 mcg PO AM 05/02/22 07/18/23 History pantoprazole 40 mg tablet,delayed 40 mg PO DAILY 05/02/22 07/18/23 History release melatonin 5 mg tablet 5 mg PO HS 05/03/22 07/18/23 History oxcarbazepine 300 mg tablet 300 mg PO BID 10/24/23 03/20/24 History amlodipine 5 mg tablet 5 mg PO HS 02/21/23 07/18/23 History pyridoxine (vitamin B6) 50 mg 50 mg PO DAILY 02/21/23 07/18/23 History tablet acetaminophen 325 mg tablet 325 mg PO QID PRN Pain 05/14/23 07/18/23 History cyclobenzaprine 5 mg tablet 5 mg PO TID PRN Muscle Pain 05/14/23 07/18/23 History ferrous sulfate 324 mg (65 mg 324 mg PO DAILY 05/14/23 07/19/23 History iron) tablet,delayed release lactulose 20 gram/30 mL oral 20 g (30 mL) PO BID 14 days #840 mL 05/16/23 07/18/23 Rx solution polyethylene glycol 3350 17 17 g PO QID 2 weeks #952 grams 06/01/23 07/18/23 Rx gram/dose oral powder sodium phosphates 19 gram-7 118 ml TX DAILY PRN constipation 06/01/23 07/18/23 Rx gram/118 mL enema (Fleet Enema) #532 mL albuterol sulfate 90 mcg/actuation 1 puff inhalation Q6H PRN 07/18/23 07/18/23 History aerosol inhaler Shortness Of Breath hydroxyzine pamoate 25 mg capsule 25 mg PO QID PRN Anxiety 07/19/23 07/19/23 History New Prescriptions to Start Prescriptions: Allergies Allergy/AdvReac Type Severity Reaction Status Date / Time amoxicillin [From Augmentin] Allergy Verified 07/18/23 16:29 clavulanic acid Allergy Verified 07/18/23 16:29 [From Augmentin] oxycodone Allergy Verified 07/18/23 16:29 Exam Data for Last 24 hours Vital signs and Labs for Last 24 Hours: Temp Pulse Resp BP Pulse Ox O2 Del Method 97.4 F L 70 16 134/72 95 Room Air 07/18/23 19:50 07/18/23 18:43 07/18/23 18:43 07/18/23 18:43 07/18/23 17:31 07/18/23 16:09 Laboratory Results - last 24 hr 07/18/23 16:10: SARS-CoV-2 (PCR) Not detected, Influenza A Untype (PCR) Not detected, Influenza Type B (PCR) Not detected 07/18/23 16:21: WBC 2.8 L, RBC 3.73 L, Hgb 12.5, Hct 38.4, MCV 102.9 H, MCH 33.5 H, MCHC 32.6, RDW 14.4, Plt Count 125 L, MPV 8.4, Neut % (Auto) 56.5, Lymph % (Auto) 30.7, [facility] % (Auto) 7.2, Eos % (Auto) 4.0, Baso % (Auto) 1.5, Neut # (Auto) 1.6 L, Lymph # (Auto) 0.9, [facility] # (Auto) 0.2, Eos # (Auto) 0.1, Baso # (Auto) 0.0, D-Dimer 0.42, Sodium 140, Potassium 4.8, Chloride 110 H, Carbon Dioxide 25, Anion Gap 9.8, BUN 10, Creatinine 0.90, Estimated Creat Clear 89, Estimated GFR 66, Est GFR ( Amer) 80, Glucose 85, Calcium 8.8, Total Bilirubin 1.2, AST 90 H, ALT 31, Alkaline Phosphatase 60, Troponin I 0.02, Total Protein 7.3, Albumin 3.8, Globulin 3.5 H, Albumin/Globulin Ratio 1.1 07/18/23 16:23: VBG pH 7.42 H, VBG pCO2 40.8, VBG pO2 75.2 H, VBG HCO3 25.8, VBG Total CO2 27.0, VBG O2 Saturation 94.9 H, VBG Base Excess 1.2, VBG Lactic Acid 1.4 07/18/23 16:35: Ammonia 152 H 07/18/23 19:35: Troponin I < 0.01 I & O for Last 24 hours: Intake & Output 07/15/23 07/16/23 07/17/23 07/18/23 23:59 23:59 23:59 23:59 Weight 94.886 kg Constitutional Constitutional: mild distress, obese, chronically ill appearing and somnolent *Routine HEENT Exam Head: Present normocephalic Eye: Present EOMI and PERRL ENT: Present mucous membranes dry *Routine Neck Exam Neck: Present supple; Absent lymphadenopathy *Routine Respiratory Exam Respiratory: Present CTA bilaterally; Absent rhonchi or wheezes *Routine Cardiovascular Exam Cardiovascular: Present tachycardia *Routine Abdominal Exam Abdominal: Present soft and normoactive bowel sounds; Absent tenderness *Routine Rectal Exam Rectal:: deferred *Routine Genitalia Exam Genitalia:: deferred *Routine Extremities Exam Extremities: Absent cyanosis, clubbing or edema *Routine Skin Exam Skin: Present warm and rash Comments: Diffuse rash on pannus with erythema, most prominent in fold of abdomen *Routine Neurological Exam Neurological: Present altered mental status and moving all extremities H&P: Result Imaging and Cardiology EKG: Status: image reviewed by me, Preliminary report and final report Assessment and Plan *Assessment and plan (1) Encephalopathy, hepatic: Status: Acute Category: Medical Code(s): K76.82 - Hepatic encephalopathy (2) Increased ammonia level: Status: Acute Category: Medical Code(s): R79.89 - Other specified abnormal findings of blood chemistry (3) Cirrhosis of liver: Status: Inactive Qualifiers: Ascites presence: unspecified Hepatic cirrhosis type: unspecified hepatic cirrhosis Qualified Code(s): K74.60 - Unspecified cirrhosis of liver Category: Medical Code(s): K74.60 - Unspecified cirrhosis of liver (4) Hypothyroidism: Status: Inactive Qualifiers: Hypothyroidism type: acquired Qualified Code(s): E03.9 - Hypothyroidism, unspecified Category: Medical Code(s): E03.9 - Hypothyroidism, unspecified (5) Hypertension: Status: Inactive Qualifiers: Hypertension type: primary hypertension Qualified Code(s): I10 - Essential (primary) hypertension Category: Medical Code(s): I10 - Essential (primary) hypertension (6) Bipolar 1 disorder: Status: Inactive Category: Medical Code(s): F31.9 - Bipolar disorder, unspecified Plan 53-year-old female who resides at [facility] with PMHx of cirrhosis, previous encephalopathy bipolar, on numerous psych medications. hypothyroidism, presented to the ED via EMS after reported been SOB. History is limited due to patient mental states. currently denied any symptoms. initial work up found elevated ammonia level Discussed case with ED provider, agreed to admit. Patient confused on admission. Aggressive lactulose regimen initiated. Necessitating inpatient management and treatment for her hepatic encephalopathy. Problems addressed as follows: -Acute hepatic encephalopathy -Increased ammonia level -Cirrhosis Aggressive lactulose ordered every 4 hours, check NH3 level tomorrow; initial ammonia greater than 150 rifaximin 550 mg twice daily. Repeat ammonia ordered for the morning Repeat CMP ordered for the morning. Kidney function normal. With BUN of 8 and creatinine of 0.8. Thrombocytopenia with platelets of 76. Repeat CBC and magnesium ordered for the morning -Bipolar, hypothyroidism and HTN: Hold oxcarbazepine Continue levothyroxine 100 mg daily for hypothyroid Continue carvedilol 3.125 mg twice daily for hypertension Continue amlodipine 5 mg daily for hypertension Continue Cymbalta 30 mg daily for depression Continue pantoprazole 40 mg daily for GERD Full code Anticoagulation contraindicated with thrombocytopenia. advance diet as mentation improves Rounded on patient after nurse practitioner. Personally examined and interviewed patient. Agree with exam findings and care plan as documented.
[2023-07-18] MEDS: ACETAMINOPHEN 325MG TAB 325 MG PO (21:15)
[2023-07-18] MEDS: CARVEDILOL 3.125MG TABLET 3.125 MG PO (21:16)
[2023-07-18] MEDS: AMITRIPTYLINE 50MG TABLET 50 MG PO (21:17)
[2023-07-19] VITALS (10 sets, daily range): BP systolic 118–157; BP diastolic 55–78; PULSE 74–95; RESP 16–20; TEMP 36.6–36.8; O2SAT 92–97; BMI 39.4
[2023-07-19 01:23] LABS: Troponin I < 0.01 ng/ml (0.00-0.034)
[2023-07-19] MEDS: LACTULOSE 20GM/30ML UDC 20 GM PO ×4 (03:18→22:26)
--- NOTE | 2023-07-19 04:53 | PC.NURSE ---
Patient has rested well this shift. Patient has c/o of headache, medicated per MAR with relief. Patient has used BSC with x1-2 assist. Patient is able to states name and birthday and knows she is at the hospital. Patient was placed on 2L O2 per NC during the night after sats were dropping into the mid 80's while asleep. Patient has been able to maintain >90% since O2 was applied. Patient had x1 BM thus far in shift. Bed alarm on for safety, call light within reach.
[2023-07-19 06:55] LABS: Basophils % 0.2 % (0.1-2.0); Eosinophils % 0.2 % (0.1-12.0); Hemoglobin 12.4 g/dL (12.2-16.2); Lymphocytes # 0.5 K/mm3 (0.7-4.5); Lymphocytes % 11.4 % (10-50); Mean Corpuscular HGB Conc 33.5 g/dL (31.8-35.4); Mean Corpuscular Volume 101.6 fl (81-99); Mean Platelet Volume 8.5 fl (7.4-10.4); Monocytes # 0.2 K/mm3 (0.1-1.0); Monocytes % 3.9 % (1.7-9.3); Neutrophils % 84.4 % (37.0-80.0); Platelet Count 106 K/mm3 (142-424); Red Blood Count 3.64 M/mm3 (4.20-5.40); Red Cell Distribution Width 14.3 % (11.5-17.5); White Blood Count 4.7 K/mm3 (4.8-10.8)
[2023-07-19 07:07] LABS: Alanine Aminotransferase 37 U/L (12-78); Albumin Level 3.4 g/dl (3.5-5.0); Albumin/Globulin Ratio 0.9 (1.1-1.8); Alkaline Phosphatase 79 U/L (38-126); Anion Gap 9.6 mEq/L (5-15); Aspartate Amino Transferase 66 U/L (14-36); Bilirubin,Total 0.7 mg/dl (0.2-1.3); Blood Urea Nitrogen 13 mg/dl (7-17); Calcium 9.3 mg/dl (8.4-10.2); Carbon Dioxide 23 mmol/L (22.0-30.0); Chloride 112 mmol/L (98-107); Creatinine Clearance Estimated 99 mL/min (50-200); Estimated Glomerular Filt Rate 58 ml/min (>60); GFR (African American) 70 ML/MIN (>60); Globulin 3.6 g/dL (1.3-3.2); Glucose 156 mg/dl (74-100); Magnesium 2.4 mg/dl (1.6-2.3); Potassium 3.6 mmoL/L (3.5-5.1); Sodium 141 mmol/L (136-145)
--- NOTE | 2023-07-19 07:55 | P.CONPHA_ITS ---
Pharmacy Intervention Comments: Home medication list verified via outside pharmacy and list from detention
[2023-07-19] MEDS: LEVOTHYROXINE 100MCG (0.1MG) TAB 100 MCG PO (08:37)
[2023-07-19] MEDS: CARVEDILOL 3.125MG TABLET 3.125 MG PO ×2 (08:37→20:04)
[2023-07-19] MEDS: RIFAXIMIN 550MG TABLET 550 MG PO ×2 (08:37→20:04)
[2023-07-19] MEDS: DULOXETINE 30MG CAPSULE.DR 30 MG PO (08:37)
[2023-07-19 09:03] LABS: Ammonia 59 umol/L (9-30)
--- NOTE | 2023-07-19 10:09 | HMH.OTEV ---
OT Inpatient Evaluation Rehab OT IP Evaluation Start: 07/19/23 07:50 Freq: ONCE Status: Active Protocol: Document 07/19/23 09:58 MARGARITA (Rec: 07/19/23 10:09 MARGARITA [id number]) Rehab OT IP Assessment Subjective History This is a 53-year-old female who resides at [facility] with PMHx of cirrhosis, previous encephalopathy bipolar, on numerous psych medications. hypothyroidism, presented to the ED via EMS after reported been SOB. History is limited due to patient mental states. Per ED documentation and report from facility patient, EMS was called because the patient was reporting shortness of breath. She cannot answer and affirmative or the negative whether she has any chest pain fever chills hemoptysis hematochezia melena nausea vomiting diarrhea. Admitted for further management and treatment. PMH: SIRS (systemic inflammatory response syndrome) Acute hepatic encephalopathy Bipolar 1 disorder Metabolic encephalopathy Respiratory failure Cellulitis Fall Hypothyroidism Hypertension UTI (urinary tract infection) Encephalopathy Cognitive impairment Murmur, heart Cirrhosis of liver Obstructive sleep apnea Hypothyroid Anxiety Patient is a resident at [facility]. Patient was independent with ADLs and fx'l mobility prior. Subjective I can get up. Instructed PAtient on proper hand and foot placement to complete bed mobility from supine->sit @ EOB->SPT to recliner requiring Min A x2. Patient demonstrated fair+ dynamic standing balance to complete pivot transfer to recliner. Left Patient sitting upright in chair with needs met at end of session. Objective Patient Orientation Person,Place,Name,Age,Birthday ,Year Right Upper Extremity Gross ROM WFL Left Upper Extremity Gross ROM WFL Bed Mobility bed mobility - supine/sit Assist Level Minimal x 2 (25% assist) Transfer Training Sit/Stand/Pivot Transfer Assist Level Minimal x 2 (25% assist) Chair Transfer Ability Minimal x 2 (25% assist) Chair Transfer Technique Stand Step Pivot Rehab OT IP prob,goals,plan Problems Date of Evaluation: 07/19/23 OT IP Problems Bed Mobility,Transfers,Balance ,Self care,Safety Rehab Potential Rehab Potential Good Equipment Needs Assistive Devices Rolling / Wheeled Walker Plan OT intervention Plan Bed Mobility,Transfers,Balance ,Self care,Safety,Therapeutic Exercise OT Plan Frequency Daily Duration LOS Discharge Goals Bed Mobility Ability Assistance x1 Sit to Stand Chair Transfer Ability Minimal x 1 (25% assist) Chair Transfer Ability Minimal x 1 (25% assist) Chair Transfer Technique Sit to/from Ambulatory Chair Transfer Assistive Devices Rolling Walker Discharge Plan OT Discharge Plan Recommend Placement at this time. Patient will require increase assistance to safely complete ADLs and fx'l mobility at this time. Patient is unsafe to return to [facility]. Patient to continue skilled OT IP services while here at [facility] in order to increase independence for ADLs and fx'l mobility. Eval Complexity Eval Charge Codes 05238 - Low Complexity PHYSICIAN CERTIFICATION: I certify the specified therapy services for Trish Oconnor are required, authorized, and reviewed every 30 days.
[2023-07-19] MEDS: ACETAMINOPHEN 325MG TAB 325 MG PO (10:12)
--- NOTE | 2023-07-19 10:13 | HMH.PTEV ---
Physical Therapy Evaluation Rehab PT IP Evaluation Start: 07/19/23 07:50 Freq: ONCE Status: Active Protocol: Document 07/19/23 09:53 IVELISSE (Rec: 07/19/23 10:12 IVELISSE [id number]) Subjective/History History History Patient is a 53yowf that presents from [facility] with primary c/o of shortness of breath. The patient's PMH is signifcant for cirrhosis, previous encephalopathy bipolar, on numerous psych medications. Subjective Subjective The patient is oriented to self. She is able to answer affirmitavely when asked if she lives at [facility]. The patient reports that she was independent at [facility] and was able to dress and care for herself. She reports that she has fallen multiple times recently. New diagnosis of cancer in past 12 No months? Rehab PT IP Eval Objective Appearance Patient Behavior Appropriate,Patient Baseline Patient Orientation Person,Birthday Difficulty following instructions mild Speech Pattern Soft-Spoken Ambulation Patient Able to Ambulate Yes Ambulation Observation IP General Gait Pattern Observation Shuffling Step Ambulation Distance (feet) 5 Ambulation Assistive Device None Ambulation Ability Moderate x 2 (50% assist) Balance Ability to Arise Able, uses arms to help Sitting Balance Leans or slides in chair Standing Balance Unsteady Dynamic Sitting Balance Ability Fair Dynamic Standing Balance Ability Fair Transfers Bed Transfer Ability Moderate x 2 (50% assist) Sit to Stand Bed Transfer Ability Moderate x 2 (50% assist) Rehab PT IP prob,goals,plan Problems Date of Evaluation: 07/19/23 PT IP Problems Bed Mobility,Transfers,Gait, Balance,Self care,Safety Rehab Potential Rehab Potential Fair Equipment Needs Assistive Devices Rolling / Wheeled Walker Plan PT Intervention Plan Bed Mobility,Transfers,Gait, Balance,Self care,Safety, Therapeutic Exercise PT Plan Frequency Daily Duration LOS Discharge Goals Bed Transfer Ability Minimal x 1 (25% assist) Sit to Stand Chair Transfer Ability Minimal x 1 (25% assist) Ambulation Assistive Device Rolling Walker Ambulation Distance (feet) 50 Discharge Plan PT Discharge Plan Pt is currently most appropriate for rehab placement at this time and once medically stable for d/c. Skilled rehab is needed to return pt to her prior functional level. Eval Complexity Eval Charge Codes 91107 - High Complexity PHYSICIAN CERTIFICATION: I certify the specified therapy services for Trish Elvin are required, authorized, and reviewed every 30 days.
--- NOTE | 2023-07-19 11:37 | SW/DCPLANNER ---
Addendum entered by Brionna King 07/20/23 10:14: I have updated Marybel w/ [facility] that patient will return today. Addendum entered by Brionna King 07/19/23 14:09: Patient did show improvement w/ therapy this afternoon: I have updated Marybel w/ [facility] and Judi w/ [employer]. Per MD the plan for is for patient to return to [facility] tomorrow pending no setbacks. Original Note: Patient currently resides at [facility]. PT/OT evaluated patient this AM and stated that she may need placement prior to returning to [facility]. I have attempted to contact patient's State Guardian: no answer VM left at this time. I will follow up w/ PT/OT once they treat patient this afternoon and continue to follow up w/ Marybel from [facility] and State Guardian.
--- NOTE | 2023-07-19 14:07 | XR_ITS ---
FINAL REPORT CLINICAL HISTORY: pain FINDINGS: LEFT FOOT 2 views of the left foot were obtained. There is no acute fracture or dislocation. There are mild degenerative changes. Small calcaneal spurs are noted. Visualized joint spaces are normally aligned. Soft tissues are unremarkable. IMPRESSION: No acute bony abnormality. Reviewed, Interpreted and Dictated by Cristian Coleman III, MD Transcribed by Filomena Sauceda Authenticated and [facility]
--- NOTE | 2023-07-19 14:34 | P.PN_ITS ---
Subjective *Date: 07/19/23 *Time: 14:34 Interval history: Patient more alert on exam this morning. Knows who she is and that she is at the hospital. Does not know where the hospital is. Is interactive. Tolerating p.o. intake. On room air. Pleased with improvement in mentation. Morning ammonia better at 59. Has had multiple bowel movements overnight. Medical Exam Vital signs and Labs for Last 24 Hours: Vital Signs Temp Pulse Pulse Resp BP BP Pulse Ox 07/19/23 13:00 07/19/23 12:00 97.8 F 07/19/23 12:00 76 16 123/55 L 94 L 07/19/23 11:00 07/19/23 10:00 76 18 124/57 L 96 07/19/23 09:00 07/19/23 08:00 90 07/19/23 08:00 07/19/23 08:00 78 18 133/69 92 L 07/19/23 08:00 98.1 F 07/19/23 07:00 07/19/23 06:00 74 18 118/65 95 07/19/23 05:00 07/19/23 04:00 98.3 F 07/19/23 04:00 84 07/19/23 04:00 81 16 137/69 94 L 07/19/23 04:00 94 L 07/19/23 03:00 07/19/23 02:00 89 16 143/74 H 95 07/19/23 01:00 91 H 18 144/78 H 95 07/19/23 01:00 07/19/23 00:00 95 H 07/19/23 00:00 97.8 F 84 16 157/75 H 94 L 07/18/23 23:00 82 16 146/72 H 94 L 07/18/23 23:00 07/18/23 22:00 90 16 161/83 H 95 07/18/23 21:00 07/18/23 20:00 73 07/18/23 20:00 97.9 F 74 18 152/80 H 94 L 07/18/23 20:00 94 L 07/18/23 19:50 97.4 F L 07/18/23 18:58 97.8 F 07/18/23 18:43 98.0 F 70 16 134/72 07/18/23 17:31 70 134/72 95 07/18/23 16:30 69 145/85 H 95 07/18/23 16:09 97.8 F 72 18 147/86 H 98 07/18/23 16:00 63 145/74 H 98 O2 Del Method O2 Flow Rate 07/19/23 13:00 Room Air 07/19/23 12:00 07/19/23 12:00 Room Air 07/19/23 11:00 Room Air 07/19/23 10:00 Room Air 07/19/23 09:00 Room Air 07/19/23 08:00 07/19/23 08:00 Room Air 07/19/23 08:00 Room Air 07/19/23 08:00 07/19/23 07:00 Room Air 07/19/23 06:00 Nasal Cannula 2 07/19/23 05:00 Nasal Cannula 2 07/19/23 04:00 07/19/23 04:00 07/19/23 04:00 Nasal Cannula 2 07/19/23 04:00 Nasal Cannula 2 07/19/23 03:00 Nasal Cannula 2 07/19/23 02:00 Nasal Cannula 2 07/19/23 01:00 Nasal Cannula 2 07/19/23 01:00 Nasal Cannula 2 07/19/23 00:00 07/19/23 00:00 Nasal Cannula 2 07/18/23 23:00 Nasal Cannula 2 07/18/23 23:00 Nasal Cannula 2 07/18/23 22:00 Room Air 07/18/23 21:00 Room Air 07/18/23 20:00 07/18/23 20:00 Room Air 07/18/23 20:00 Room Air 07/18/23 19:50 07/18/23 18:58 07/18/23 18:43 07/18/23 17:31 07/18/23 16:30 07/18/23 16:09 Room Air 07/18/23 16:00 Room Air Intake and Output 07/18/23 07/19/23 07/19/23 23:59 07:59 15:59 Output Total 0 / 0 0 / 0 0 / 0 Balance 0 / 0 0 / 0 0 / 0 Output: Output, Urine Amount 0 / 0 0 / 0 0 / 0 Other: Number of Voids 1 Number of Unmeasured Voids 1 1 1 Number of Bowel Movements 2 1 Weight 94.886 kg 94.9 kg Patient Weight 07/19/23 23:59 Weight 94.9 kg Laboratory Results - last 24 hr 07/18/23 16:10: SARS-CoV-2 (PCR) Not detected, Influenza A Untype (PCR) Not detected, Influenza Type B (PCR) Not detected 07/18/23 16:21: WBC 2.8 L, RBC 3.73 L, Hgb 12.5, Hct 38.4, MCV 102.9 H, MCH 33.5 H, MCHC 32.6, RDW 14.4, Plt Count 125 L, MPV 8.4, Neut % (Auto) 56.5, Lymph % (Auto) 30.7, [place] % (Auto) 7.2, Eos % (Auto) 4.0, Baso % (Auto) 1.5, Neut # (Auto) 1.6 L, Lymph # (Auto) 0.9, [place] # (Auto) 0.2, Eos # (Auto) 0.1, Baso # (Auto) 0.0, D-Dimer 0.42, Sodium 140, Potassium 4.8, Chloride 110 H, Carbon Dioxide 25, Anion Gap 9.8, BUN 10, Creatinine 0.90, Estimated Creat Clear 89, Estimated GFR 66, Est GFR ( Amer) 80, Glucose 85, Calcium 8.8, Total Bilirubin 1.2, AST 90 H, ALT 31, Alkaline Phosphatase 60, Troponin I 0.02, Total Protein 7.3, Albumin 3.8, Globulin 3.5 H, Albumin/Globulin Ratio 1.1 07/18/23 16:23: VBG pH 7.42 H, VBG pCO2 40.8, VBG pO2 75.2 H, VBG HCO3 25.8, VBG Total CO2 27.0, VBG O2 Saturation 94.9 H, VBG Base Excess 1.2, VBG Lactic Acid 1.4 07/18/23 16:35: Ammonia 152 H 07/18/23 19:35: Troponin I < 0.01 07/18/23 22:10: Troponin I < 0.01 07/19/23 06:17: WBC 4.7 L D, RBC 3.64 L, Hgb 12.4, Hct 37.0, MCV 101.6 H, MCH 34.0 H, MCHC 33.5, RDW 14.3, Plt Count 106 L, MPV 8.5, Neut % (Auto) 84.4 H, Lymph % (Auto) 11.4, [place] % (Auto) 3.9, Eos % (Auto) 0.2, Baso % (Auto) 0.2, Neut # (Auto) 4.0, Lymph # (Auto) 0.5 L, [place] # (Auto) 0.2, Eos # (Auto) 0.0, Baso # (Auto) 0.0, Sodium 141, Potassium 3.6 D, Chloride 112 H, Carbon Dioxide 23, Anion Gap 9.6, BUN 13 D, Creatinine 1.00, Estimated Creat Clear 99, Estimated GFR 58 L, Est GFR ( Amer) 70, Glucose 156 H D, Calcium 9.3, Magnesium 2.4 H, Total Bilirubin 0.7, AST 66 H D, ALT 37, Alkaline Phosphatase 79, Ammonia 59 H, Total Protein 7.0, Albumin 3.4 L D, Globulin 3.6 H, Albumin/Globulin Ratio 0.9 L I & O for Labs for Last 24 Hours: Intake & Output 07/16/23 07/17/23 07/18/23 07/19/23 23:59 23:59 23:59 23:59 Output Total 0 / 0 0 / 0 Balance 0 / 0 0 / 0 Weight 94.886 kg 94.9 kg Constitutional: Present no acute distress, obese and chronically ill appearing Head: Present atraumatic and normocephalic ENT: Present normal exam Neck: Present normal inspection Respiratory: Present CTA bilaterally; Absent accessory muscle use, rhonchi, wheezes or crackles Cardiac: Present Reg Rate and Rhythm and S1/S2 GI: Present soft; Absent distention or tenderness Rectal (female): Present deferred (female): Present deferred Extremities: Present normal inspection Skin: Present intact; Absent cyanosis or erythema Neuro: Present alert, awake and moves all extremities Comment:: Mild asterixis present in hands; oriented to self and that she is at a hospital Assessment and Plan *Assessment and plan (1) Encephalopathy, hepatic: Status: Acute Category: Medical Code(s): K76.82 - Hepatic encephalopathy (2) Increased ammonia level: Status: Acute Category: Medical Code(s): R79.89 - Other specified abnormal findings of blood chemistry (3) Cirrhosis of liver: Status: Inactive Qualifiers: Hepatic cirrhosis type: unspecified hepatic cirrhosis Ascites presence: unspecified Qualified Code(s): K74.60 - Unspecified cirrhosis of liver Category: Medical Code(s): K74.60 - Unspecified cirrhosis of liver (4) Hypothyroidism: Status: Inactive Qualifiers: Hypothyroidism type: acquired Qualified Code(s): E03.9 - Hypothyroidism, unspecified Category: Medical Code(s): E03.9 - Hypothyroidism, unspecified (5) Hypertension: Status: Inactive Qualifiers: Hypertension type: primary hypertension Qualified Code(s): I10 - Essential (primary) hypertension Category: Medical Code(s): I10 - Essential (primary) hypertension (6) Bipolar 1 disorder: Status: Inactive Category: Medical Code(s): F31.9 - Bipolar disorder, unspecified Plan 53-year-old female who resides at [facility] with PMHx of cirrhosis, previous encephalopathy bipolar, on numerous psych medications. hypothyroidism, presented to the ED via EMS after reported been SOB. History is limited due to patient mental states. currently denied any symptoms. initial work up found elevated ammonia level Discussed case with ED provider, agreed to admit. Patient showing some improvement this morning. Has had multiple bowel movements overnight, at least 3. Oriented to self and place. More interactive. Working with therapy. Continues to require inpatient management and treatment for her hepatic encephalopathy. Problems addressed as follows: -Acute hepatic encephalopathy -Increased ammonia level -Cirrhosis Responding well to treatment. Continue rifaximin 550 mg twice daily. Decrease lactulose to every 8 hours scheduled. Ammonia level 150 on admission, 59 this morning. CBC and CMP with no significant abnormalities. Repeat labs ordered for the morning with CBC, CMP, magnesium Kidney function normal. With BUN of 13 and creatinine of 1 Platelets better than previous labs last admission at 106, marginal improvement in her baseline thrombocytopenia -Bipolar, hypothyroidism and HTN: resume oxcarbazepine per home regimen 300 mg daily. Continue levothyroxine 100 mg daily for hypothyroid Continue carvedilol 3.125 mg twice daily for hypertension Continue amlodipine 5 mg daily for hypertension Continue Cymbalta 30 mg daily for depression Continue pantoprazole 40 mg daily for GERD Full code Anticoagulation contraindicated with thrombocytopenia. advance diet as mentation improves
[2023-07-19] MEDS: ACETAMINOPHEN 325MG TAB 650 MG PO (15:16)
[2023-07-19 15:54] LABS: Strep Scrn Group A (Rapid) Negative (Negative)
--- NOTE | 2023-07-19 18:54 | PC.NURSE ---
pt has been alert and oriented today. ate and drank well. sat in chair at bedside most of morning, x1 assist with transfer. x2 loose bm. midshift, pt stated she could not breath and her throat was hurting, also complaints of headache and top of left foot hurting. vss, o2 sats 96% on ra. notified RADHA berman to obtain strep swab. strep came back negative. encouraged gargling warm salt water, done once so far. waiting for results on xray. cb within reach.
[2023-07-19] MEDS: AMITRIPTYLINE 50MG TABLET 50 MG PO (20:04)
[2023-07-19] MEDS: PANTOPRAZOLE 40MG TABLET 40 MG PO (20:04)
[2023-07-19] MEDS: OXcarbazepine 300MG TABLET 300 MG PO (20:04)
[2023-07-20] VITALS: BP 158/73; PULSE 73; RESP 17; TEMP 36.9; O2SAT 96
[2023-07-20 04:00] VITALS: BP 132/66; PULSE 78; RESP 18; TEMP 37.1; O2SAT 96; BMI 40.4
--- NOTE | 2023-07-20 04:40 | PC.NURSE ---
Patient A&O x 3; VSS WNL; denies pain or discomfort. no BM this shift, no changes this shift.
[2023-07-20 06:19] LABS: Albumin Level 2.9 g/dl (3.5-5.0); Albumin/Globulin Ratio 0.9 (1.1-1.8); Alkaline Phosphatase 71 U/L (38-126); Anion Gap 8.7 mEq/L (5-15); Bilirubin,Total 0.5 mg/dl (0.2-1.3); Blood Urea Nitrogen 12 mg/dl (7-17); Calcium 8.7 mg/dl (8.4-10.2); Carbon Dioxide 28 mmol/L (22.0-30.0); Chloride 111 mmol/L (98-107); Creatinine Clearance Estimated 112 mL/min (50-200); Estimated Glomerular Filt Rate 66 ml/min (>60); GFR (African American) 80 ML/MIN (>60); Globulin 3.2 g/dL (1.3-3.2); Glucose 113 mg/dl (74-100); Magnesium 2.3 mg/dl (1.6-2.3); Potassium 3.7 mmoL/L (3.5-5.1); Sodium 144 mmol/L (136-145); Total Protein,Serum 6.1 g/dl (6.3-8.2)
[2023-07-20 06:20] LABS: Alanine Aminotransferase 29 U/L (12-78); Aspartate Amino Transferase 56 U/L (14-36)
[2023-07-20 06:21] LABS: Basophils % 0.4 % (0.1-2.0); Eosinophils # 0.1 K/mm3 (0.0-0.4); Eosinophils % 2.3 % (0.1-12.0); Hematocrit 34.3 % (37.0-47.0); Hemoglobin 11.2 g/dL (12.2-16.2); Lymphocytes # 0.8 K/mm3 (0.7-4.5); Lymphocytes % 18.1 % (10-50); Mean Corpuscular HGB Conc 32.6 g/dL (31.8-35.4); Mean Corpuscular Hemoglobin 33.2 pg (27.0-31.2); Mean Platelet Volume 8.3 fl (7.4-10.4); Monocytes # 0.2 K/mm3 (0.1-1.0); Monocytes % 4.8 % (1.7-9.3); Neutrophils # 3.4 K/mm3 (1.8-7.8); Neutrophils % 74.5 % (37.0-80.0); Platelet Count 107 K/mm3 (142-424); Red Blood Count 3.36 M/mm3 (4.20-5.40); Red Cell Distribution Width 14.6 % (11.5-17.5); White Blood Count 4.6 K/mm3 (4.8-10.8)
[2023-07-20] MEDS: LEVOTHYROXINE 100MCG (0.1MG) TAB 100 MCG PO (06:24)
[2023-07-20] MEDS: LACTULOSE 20GM/30ML UDC 20 GM PO ×2 (06:24→12:46)
--- NOTE | 2023-07-20 07:56 | EXP.DC.SUM ---
General Admission date:: 07/18/23 Discharge date: 07/20/23 HPI HPI HPI: This is a 53-year-old female who resides at [facility] with PMHx of cirrhosis, previous encephalopathy bipolar, on numerous psych medications. hypothyroidism, presented to the ED via EMS after reported been SOB. History is limited due to patient mental states. Per ED documentation and report from facility patient, EMS was called because the patient was reporting shortness of breath. She cannot answer and affirmative or the negative whether she has any chest pain fever chills hemoptysis hematochezia melena nausea vomiting diarrhea. Admitted for further management and treatment. Hospital Course Hospital Course Hospital Course: 53-year-old female who resides at [facility] with PMHx of cirrhosis, previous encephalopathy bipolar, on numerous psych medications. hypothyroidism, presented to the ED via EMS after reported been SOB. History is limited due to patient mental states. currently denied any symptoms. initial work up found elevated ammonia level Discussed case with ED provider, agreed to admit. Patient showed improvement with bowel movements. Stable to discharge back to her personal-alf to continue lactulose and rifaximin. Problems addressed as follows: -Acute hepatic encephalopathy -Increased ammonia level -Cirrhosis Patient was initiated on aggressive lactulose regimen with rifaximin. Ammonia greater than 150 on admission, improved to 59 by the following day. Will continue rifaximin 550 mg twice daily and lactulose twice daily at discharge. Rifaximin has been approved by her insurance. Kidney functions remain normal. Patient at baseline mentation on day of discharge. Her cirrhosis is decompensated given her ammonia, but is stable with continued medical management as long as she complies with her medications. Left foot pain. Having pain on the top of the foot. Imaging obtained, no fracture. Concern for bruise versus overuse injury. Would recommend having further evaluation as an outpatient. -Bipolar, hypothyroidism and HTN: Continue oxcarbazepine per home regimen 300 mg daily. Continue levothyroxine 100 mg daily for hypothyroid Continue carvedilol 3.125 mg twice daily for hypertension Continue amlodipine 5 mg daily for hypertension Continue Cymbalta 30 mg daily for depression Continue pantoprazole 40 mg daily for GERD Exam Data for Last 24 hours Vital signs and Labs for Last 24 Hours: Temp Pulse Resp BP Pulse Ox O2 Del Method O2 Flow Rate 98.7 F 78 18 132/66 96 Room Air 2 07/20/23 04:00 07/20/23 04:00 07/20/23 04:00 07/20/23 04:00 07/20/23 04:00 07/20/23 06:28 07/19/23 06:00 Laboratory Results - last 24 hr 07/19/23 06:17: Ammonia 59 H 07/19/23 15:30: Group A Strep Rapid Negative 07/20/23 05:42: WBC 4.6 L, RBC 3.36 L, Hgb 11.2 L, Hct 34.3 L, MCV 102.0 H, MCH 33.2 H, MCHC 32.6, RDW 14.6, Plt Count 107 L, MPV 8.3, Neut % (Auto) 74.5, Lymph % (Auto) 18.1, [place] % (Auto) 4.8, Eos % (Auto) 2.3, Baso % (Auto) 0.4, Neut # (Auto) 3.4, Lymph # (Auto) 0.8, [place] # (Auto) 0.2, Eos # (Auto) 0.1, Baso # (Auto) 0.0, Sodium 144, Potassium 3.7, Chloride 111 H, Carbon Dioxide 28, Anion Gap 8.7, BUN 12, Creatinine 0.90, Estimated Creat Clear 112, Estimated GFR 66, Est GFR ( Amer) 80, Glucose 113 H D, Calcium 8.7, Magnesium 2.3, Total Bilirubin 0.5, AST 56 H, ALT 29, Alkaline Phosphatase 71, Total Protein 6.1 L, Albumin 2.9 L D, Globulin 3.2, Albumin/Globulin Ratio 0.9 L I & O for Last 24 hours: Intake & Output 07/17/23 07/18/23 07/19/23 07/20/23 23:59 23:59 23:59 23:59 Intake Total 270 / 510 240 / 240 Output Total 0 / 0 0 / 0 0 / 0 Balance 0 / 0 270 / 510 240 / 240 Weight 94.886 kg 94.9 kg 97.114 kg Constitutional Constitutional: no acute distress, obese and cooperative *Routine HEENT Exam Head: Present normocephalic and atraumatic Eye: Present EOMI ENT: Present mucous membranes moist *Routine Neck Exam Neck: Present supple; Absent JVD *Routine Respiratory Exam Respiratory: Present CTA bilaterally; Absent accessory muscle use *Routine Cardiovascular Exam Cardiovascular: Present RRR, Normal S1 and Normal S2 *Routine Abdominal Exam Abdominal: Present soft and normoactive bowel sounds; Absent tenderness *Routine Rectal Exam Patient deferred: visual exam *Routine Exam Patient deferred: external exam *Routine Extremities Exam Extremities: Present cyanosis; Absent edema Comments: Left milling machine tender on dorsum mid metatarsal. X-ray obtained with no fractures. *Routine Skin Exam Skin: Present intact and dry *Routine Neurological Exam Neurological: Present alert, CN II-XII intact, altered mental status and moving all extremities Comments: alert to self and in hospital, not sure the name of hospital or city. [place]; appears at baseline mentation Results Data Completed and Pending Labs on day of discharge: Labs from last 24 hours 07/20/23 07/19/23 07/19/23 05:42 15:30 06:17 WBC 4.6 L RBC 3.36 L Hgb 11.2 L Hct 34.3 L MCV 102.0 H MCH 33.2 H MCHC 32.6 RDW 14.6 Plt Count 107 L MPV 8.3 Neut % (Auto) 74.5 Lymph % (Auto) 18.1 [place] % (Auto) 4.8 Eos % (Auto) 2.3 Baso % (Auto) 0.4 Neut # (Auto) 3.4 Lymph # (Auto) 0.8 [place] # (Auto) 0.2 Eos # (Auto) 0.1 Baso # (Auto) 0.0 Sodium 144 Potassium 3.7 Chloride 111 H Carbon Dioxide 28 Anion Gap 8.7 BUN 12 Creatinine 0.90 Estimated Creat Clear 112 Estimated GFR 66 Est GFR ( Amer) 80 Glucose 113 H D Calcium 8.7 Magnesium 2.3 Total Bilirubin 0.5 AST 56 H ALT 29 Alkaline Phosphatase 71 Ammonia 59 H Total Protein 6.1 L Albumin 2.9 L D Globulin 3.2 Albumin/Globulin Ratio 0.9 L Group A Strep Rapid Negative DS: Diagnosis Discharge Diagnosis (1) Encephalopathy, hepatic: Status: Acute Code(s): K76.82 - Hepatic encephalopathy (2) Increased ammonia level: Status: Acute Code(s): R79.89 - Other specified abnormal findings of blood chemistry (3) Cirrhosis of liver: Status: Inactive Code(s): K74.60 - Unspecified cirrhosis of liver Qualifiers: Ascites presence: unspecified Hepatic cirrhosis type: unspecified hepatic cirrhosis Qualified Code(s): K74.60 - Unspecified cirrhosis of liver (4) Hypothyroidism: Status: Inactive Code(s): E03.9 - Hypothyroidism, unspecified Qualifiers: Hypothyroidism type: acquired Qualified Code(s): E03.9 - Hypothyroidism, unspecified (5) Hypertension: Status: Inactive Code(s): I10 - Essential (primary) hypertension Qualifiers: Hypertension type: primary hypertension Qualified Code(s): I10 - Essential (primary) hypertension (6) Bipolar 1 disorder: Status: Inactive Code(s): F31.9 - Bipolar disorder, unspecified Meds Home Medications and Allergies Home Medications Medication Instructions Recorded Confirmed Type amitriptyline 50 mg tablet 50 mg PO HS 05/02/22 07/18/23 History carvedilol 3.125 mg tablet 3.125 mg PO BID 05/02/22 07/18/23 History duloxetine 30 mg capsule,delayed 30 mg PO DAILY 05/02/22 07/18/23 History release levothyroxine 100 mcg tablet 100 mcg PO AM 05/02/22 07/18/23 History pantoprazole 40 mg tablet,delayed 40 mg PO DAILY 05/02/22 07/18/23 History release melatonin 5 mg tablet 5 mg PO HS 05/03/22 07/18/23 History oxcarbazepine 300 mg tablet 300 mg PO BID 02/20/23 07/18/23 History amlodipine 5 mg tablet 5 mg PO HS 02/21/23 07/18/23 History pyridoxine (vitamin B6) 50 mg 50 mg PO DAILY 02/21/23 07/18/23 History tablet acetaminophen 325 mg tablet 325 mg PO QID PRN Pain 05/14/23 07/18/23 History cyclobenzaprine 5 mg tablet 5 mg PO TID PRN Muscle Pain 05/14/23 07/18/23 History ferrous sulfate 324 mg (65 mg 324 mg PO DAILY 05/14/23 07/19/23 History iron) tablet,delayed release albuterol sulfate 90 mcg/actuation 1 puff inhalation Q6H PRN 07/18/23 07/18/23 History aerosol inhaler Shortness Of Breath hydroxyzine pamoate 25 mg capsule 25 mg PO QID PRN Anxiety 07/19/23 07/19/23 History lactulose 20 gram/30 mL oral 20 g (30 mL) PO BID 30 days #1,800 07/20/23 Rx solution mL rifaximin 550 mg tablet (Xifaxan) 550 mg PO BID 30 days #60 tabs 07/20/23 Rx New Prescriptions to Start Prescriptions: Jhon Galaviz rifaximin [Xifaxan] Jhon Chandler Allergies Allergy/AdvReac Type Severity Reaction Status Date / Time amoxicillin [From Augmentin] Allergy Verified 07/18/23 16:29 clavulanic acid Allergy Verified 07/18/23 16:29 [From Augmentin] oxycodone Allergy Verified 07/18/23 16:29 Discharge Plan Disposition Patient Disposition: Home, Self-Care Condition: Fair Discharge Order Discharge Orders: Discharge Order (Routine); Ordered 07/20/23 Ordered By: Jhon Chandler Follow up Plan Follow up with: Raul Hernandez APRN [Primary Care Provider] - Enter time for follow up Prescriptions/Medication Reconciliation: New Xifaxan 550 mg Tablet 550 mg PO BID 30 Days Qty: 60 2RF Continued amitriptyline 50 mg Tablet 50 mg PO HS carvedilol 3.125 mg Tablet 3.125 mg PO BID levothyroxine 100 mcg Tablet 100 mcg PO AM pantoprazole 40 mg Tablet,Delayed Release (Dr/Ec) 40 mg PO DAILY duloxetine 30 mg Capsule,Delayed Release(Dr/Ec) 30 mg PO DAILY melatonin 5 mg tablet 5 mg PO HS oxcarbazepine 300 mg tablet 300 mg PO BID amlodipine 5 mg tablet 5 mg PO HS pyridoxine (vitamin B6) 50 mg tablet 50 mg PO DAILY acetaminophen 325 mg Tablet 325 mg PO QID PRN (Reason: Pain) cyclobenzaprine 5 mg Tablet 5 mg PO TID PRN (Reason: Muscle Pain ) ferrous sulfate 324 mg (65 mg iron) tablet,delayed release (DR/EC) 324 mg PO DAILY Rx Instructions: take 1 tab every other day albuterol sulfate 90 mcg/actuation HFA aerosol inhaler 1 puff inhalation Q6H PRN (Reason: Shortness Of Breath) Patient Comments: INHALE 1 PUFF BY MOUTH EVERY 6 HOURS NEEDED may keep AT bedside (shortness of breath) hydroxyzine pamoate 25 mg Capsule 25 mg PO QID PRN (Reason: Anxiety) lactulose 20 gram/30 mL Solution 20 g PO BID 30 Days Qty: 1800 0RF Discontinued polyethylene glycol 3350 17 gram/dose powder 17 g PO QID 14 Days Qty: 952 0RF Fleet Enema 19-7 gram/118 mL enema 118 ml [place] DAILY PRN (Reason: constipation) Qty: 532 0RF Problem Reconciliation Problems Reviewed?: Yes Patient Discharge Instructions ACTIVITY: Continue current activity DIET: continue same diet Patient Instructions: Hepatic Encephalopathy, DI for Hepatic Encephalopathy Providers Primary Care Provider: Raul Hernandez Admit Provider: Jhon Chandler Attending Provider: Jhon Chandler
[2023-07-20 08:00] VITALS: BP 151/84; PULSE 66; RESP 18; TEMP 36.4; O2SAT 94
[2023-07-20] MEDS: OXcarbazepine 300MG TABLET 300 MG PO (08:57)
[2023-07-20] MEDS: DULOXETINE 30MG CAPSULE.DR 30 MG PO (08:57)
[2023-07-20] MEDS: CARVEDILOL 3.125MG TABLET 3.125 MG PO (08:57)
[2023-07-20] MEDS: RIFAXIMIN 550MG TABLET 550 MG PO (08:57)
[2023-07-20 11:16] VITALS: BP 148/66; PULSE 70; RESP 18; TEMP 36.6; O2SAT 94
== END 2023-07-20 13:10 | disposition home or self-care (01) | DRG 443 ==
LOC: ER 18:06 → 2ND 18:43
PROVIDERS: Physician Assistant; Admitting Provider Internal Medicine Adolescent Medicine; Emergency Provider Emergency Medicine; PCP Nurse Practitioner Acute Care; Visit Provider Internal Medicine Adolescent Medicine
DX: K76.82 Hepatic encephalopathy (principal); K74.60 Unspecified cirrhosis of liver; E03.9 Hypothyroidism, unspecified; I10 Essential (primary) hypertension; F31.9 Bipolar disorder, unspecified; M79.672 Pain in left foot
CPT/HCPCS: 36415; 70491; 71045; 71275; 73620; 80053; 82140; 82803; 83735; 84484; 85025; 85378; 87430; 87636; 97110; 97116; 97163; 97165; 97530; 99291; J0131; Q9967

== ENCOUNTER 2023-08-25 18:17 | Emergency (ER) | payer MEDICAID, SELFPAY ==
[2023-08-25 18:17] VITALS: BP 137/68; PULSE 70; RESP 19; TEMP 36.7; O2SAT 97; BMI 41.5
--- NOTE | 2023-08-25 18:19 | HMH.EDGENADL ---
Discharge Plan Disposition Patient Disposition: Home, Self-Care Condition: Good Prescriptions Prescriptions: New levofloxacin 750 mg tablet 750 mg PO DAILY 7 Days Qty: 7 0RF No Action amitriptyline 50 mg Tablet 50 mg PO HS carvedilol 3.125 mg Tablet 3.125 mg PO BID levothyroxine 100 mcg Tablet 100 mcg PO AM pantoprazole 40 mg Tablet,Delayed Release (Dr/Ec) 40 mg PO DAILY duloxetine 30 mg Capsule,Delayed Release(Dr/Ec) 30 mg PO DAILY melatonin 5 mg tablet 5 mg PO HS oxcarbazepine 300 mg tablet 300 mg PO BID amlodipine 5 mg tablet 5 mg PO HS pyridoxine (vitamin B6) 50 mg tablet 50 mg PO DAILY acetaminophen 325 mg Tablet 325 mg PO QID PRN (Reason: Pain) cyclobenzaprine 5 mg Tablet 5 mg PO TID PRN (Reason: Muscle Pain ) ferrous sulfate 324 mg (65 mg iron) tablet,delayed release (DR/EC) 324 mg PO DAILY Rx Instructions: take 1 tab every other day albuterol sulfate 90 mcg/actuation HFA aerosol inhaler 1 puff inhalation Q6H PRN (Reason: Shortness Of Breath) Patient Comments: INHALE 1 PUFF BY MOUTH EVERY 6 HOURS NEEDED may keep AT bedside (shortness of breath) hydroxyzine pamoate 25 mg Capsule 25 mg PO QID PRN (Reason: Anxiety) Xifaxan 550 mg Tablet 550 mg PO BID 30 Days Qty: 60 2RF lactulose 20 gram/30 mL Solution 20 g PO BID 30 Days Qty: 1800 0RF Referrals Follow up/Referrals: Provider,Referral, MD [Primary Care Provider] - See instructions Activity Restrictions/Add. Instructions Additional Instructions/Restrictions: You were evaluated in the emergency department today and diagnosed with a urinary tract infection. 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 Follow-up closely with your primary care provider. Return to the emergency department for new or worsening symptoms. Clinical Impressions Clinical Impression: Pyelonephritis Instructions Patient Instructions: DI for Urinary Tract Infection (UTI) Discharge ED Provider: Lizeth Pierre General Adult HPI General Chief complaint: Urogenital-Female Stated complaint: nausea, kidney pain Time Seen by Provider: 08/25/23 18:18 History of Present Illness HPI narrative: This patient is a 53-year-old female with a history of bipolar disorder, hypothyroidism, GERD, and hypertension presenting to the emergency department for bilateral low back pain that radiates into her hips. She states it is worse with movement. She thinks it may be her kidneys, but she states I am not a doctor. She also complains of nausea. No fevers, chills, or other concerns. She has otherwise been well. No recent falls or traumatic injuries. No saddle anesthesia or incontinence. She arrives by EMS from [facility] who noted that she was hemodynamically stable and well-appearing en route. Related Data Home Medications Medication Instructions Recorded Confirmed amitriptyline 50 mg tablet 50 mg PO HS 05/02/22 07/18/23 carvedilol 3.125 mg tablet 3.125 mg PO BID 05/02/22 07/18/23 duloxetine 30 mg capsule,delayed 30 mg PO DAILY 05/02/22 07/18/23 release levothyroxine 100 mcg tablet 100 mcg PO AM 05/02/22 07/18/23 pantoprazole 40 mg tablet,delayed 40 mg PO DAILY 05/02/22 07/18/23 release melatonin 5 mg tablet 5 mg PO HS 05/03/22 07/18/23 oxcarbazepine 300 mg tablet 300 mg PO BID 02/20/23 07/18/23 amlodipine 5 mg tablet 5 mg PO HS 02/21/23 07/18/23 pyridoxine (vitamin B6) 50 mg 50 mg PO DAILY 02/21/23 07/18/23 tablet acetaminophen 325 mg tablet 325 mg PO QID PRN Pain 05/14/23 07/18/23 cyclobenzaprine 5 mg tablet 5 mg PO TID PRN Muscle Pain 05/14/23 07/18/23 ferrous sulfate 324 mg (65 mg 324 mg PO DAILY 05/14/23 07/19/23 iron) tablet,delayed release albuterol sulfate 90 mcg/actuation 1 puff inhalation Q6H PRN 07/18/23 07/18/23 aerosol inhaler Shortness Of Breath hydroxyzine pamoate 25 mg capsule 25 mg PO QID PRN Anxiety 07/19/23 07/19/23 Previous Rx's Medication Instructions Recorded lactulose 20 gram/30 mL oral 20 g (30 mL) PO BID 30 days #1,800 07/20/23 solution mL rifaximin 550 mg tablet (Xifaxan) 550 mg PO BID 30 days #60 tabs 07/20/23 levofloxacin 750 mg tablet 750 mg PO DAILY 7 days #7 tabs 08/25/23 Allergies Allergy/AdvReac Type Severity Reaction Status Date / Time amoxicillin [From Augmentin] Allergy Verified 07/18/23 16:29 clavulanic acid Allergy Verified 07/18/23 16:29 [From Augmentin] oxycodone Allergy Verified 07/18/23 16:29 [facility] Disclaimer: The information contained in this section may have been updated after the patient was seen, as this information can be updated by other users. Medical History SIRS (systemic inflammatory response syndrome) Acute hepatic encephalopathy Bipolar 1 disorder Metabolic encephalopathy Respiratory failure Cellulitis Fall Hypothyroidism Hypertension UTI (urinary tract infection) Encephalopathy Cognitive impairment Murmur, heart Cirrhosis of liver Obstructive sleep apnea Hypothyroid Anxiety Surgical History H/O section H/O hernia repair Hx of appendectomy Family History Other No significant family history Social History Smoking Status: Former smoker alcohol intake: never current occupational status: disabled Travel in the last 8 weeks: None ROS Obtained: Yes All systems reviewed & no additional complaints except as documented Physical Exam General General appearance: alert and in no apparent distress Head Head exam: atraumatic and normocephalic Eye Eye exam: Present normal appearance, PERRL and EOMI ENT ENT exam: Present normal exam, normal oropharynx, mucous membranes moist and normal external ear exam Neck Neck exam: Present normal inspection, full ROM and trachea midline; Absent tenderness Chest Chest inspection: Present normal inspection and symmetric chest wall rise; Absent tenderness Respiratory Respiratory exam: Present normal lung sounds bilaterally; Absent respiratory distress, wheezes, stridor or accessory muscle use Cardiovascular Cardiovascular exam: Present regular rate and normal rhythm Abdominal Exam Abdominal exam: Present soft; Absent distention, tenderness or guarding Extremities Exam Extremities exam: Present normal inspection, full ROM and normal capillary refill; Absent tenderness or edema Back Exam Back exam: Present full ROM, tenderness and paraspinal tenderness (Lumbosacral spine); Absent muscle spasm or vertebral tenderness Neurological Exam Neurological exam: Present alert, oriented X3, CN II-XII intact and normal gait; Absent motor sensory deficit Psychiatric Psychiatric exam: Present normal affect and normal mood Skin Skin exam: Present warm and dry Medical Decision Making Medical Records Medical records reviewed: Yes I reviewed the patient's medical records. Darrian Inquiry Pt receiving controlled substance: No Vital Signs: 08/25/23 18:17 08/25/23 18:34 08/25/23 20:20 Temperature 98.1 F 98.2 F Temperature Source Oral Oral Pulse Rate 72 82 Pulse Rate [Right] 70 Respiratory Rate 19 19 Blood Pressure 190/98 H 149/78 H Blood Pressure [Right Arm] 137/68 Blood Pressure Mean [Right Arm] 91 Blood Pressure Source Automatic Cuff Blood Pressure Source [Right Arm] Automatic Cuff Blood Pressure Position Sitting 02 Sat by Pulse Oximetry 97 97 Oxygen Delivery Method Room Air Room Air Lab Data Lab results reviewed: Yes I reviewed the patient's lab results. Lab Results 08/25/23 19:50: Urine Color Yellow, Urine Appearance Clear, Urine pH 6.5, Ur Specific [place] 1.015, Urine Protein Trace, Urine Glucose (UA) Negative, Urine Ketones Negative, Urine Blood 3+, Urine Nitrate Positive, Urine Bilirubin Negative, Urine Urobilinogen 1.0, Ur Leukocyte Esterase 1+ A, Urine RBC 5-10, Urine WBC 5-10, Ur Squamous Epith Cells 5-10, Urine Bacteria 3+ Orders (Tests/Meds): ED MEDICATIONS Discontinued Medications Generic Name Dose Route Start Last Admin Trade Name Evansq PRN Reason Stop Dose Admin Acetaminophen 1,000 mg 08/25/23 18:18 08/25/23 18:33 Acetaminophen 500mg Tab PO 08/25/23 18:19 1,000 mg ONCE ONE Administration Ibuprofen 800 mg 08/25/23 18:18 08/25/23 18:33 Ibuprofen 400 Mg Tablet PO 08/25/23 18:19 800 mg ONCE ONE Administration Levofloxacin 750 mg 08/25/23 20:01 08/25/23 20:21 Levofloxacin 750 Mg Tablet PO 08/25/23 20:02 750 mg ONCE ONE Administration Ondansetron HCl 4 mg 08/25/23 18:22 08/25/23 18:32 Ondansetron 4mg Odt SL 04/27/24 18:23 4 mg ONCE ONE Administration ORDERS Category Date Time Status Urinalysis and Microscopic Stat Lab 08/25/23 19:50 Completed Urine Culture Stat Micro 08/25/23 19:50 Received Medical Decision Narrative: In summary, this patient is a 53-year-old female presenting to the Emergency Department for evaluation of back pain with concern that something is wrong with her kidneys. Differential diagnoses considered include but are not limited to musculoskeletal strain/sprain, pyonephritis, ureterolithiasis, cystitis. Ruling out the most morbid conditions drove assessment. On exam, the patient is well-appearing with paraspinal tenderness to palpation. Based on this and the fact that she has pain with movement, I feel she likely has musculoskeletal pain. Will obtain urinalysis to evaluate for urinary tract pathology. Patient was given oral Tylenol and ibuprofen for symptomatic improvement. Her vitals are reassuring and she has no midline bony tenderness or alarm findings concerning for spinal cord compression. Given this, I do not feel that imaging is indicated at this time. On reassessment, the patient is resting comfortably. She is afebrile without significant tachycardia. Urine is actually concerning for possible pyelonephritis with proteinuria, white blood cells, nitrates. She does not have any significant changes in vital signs or other issues that would suggest that labs or imaging would be indicated at this time. Given that the pain is bilateral, doubt kidney stone as a cause. I feel she is appropriate for treatment with antibiotics, which she is agreeable to. She was given a dose of Levaquin here in the emergency department for complicated UTI and was discharged home with prescription for Levaquin, instructions for supportive management, and strict return precautions. She was discharged after all questions were answered. Critical Care Critical Care Time Critical Care Time: No
[2023-08-25] MEDS: ONDANSETRON 4MG ODT 4 MG SL (18:32)
[2023-08-25] MEDS: IBUPROFEN 400 MG TABLET 800 MG PO (18:33)
[2023-08-25] MEDS: ACETAMINOPHEN 500MG TAB 1000 MG PO (18:33)
[2023-08-25 18:34] VITALS: BP 190/98; PULSE 72; O2SAT 97
[2023-08-25 19:55] LABS: Microscopic, Urine URINE MICROSCOPIC (MICROSCOPIC)
[2023-08-25 19:58] LABS: Appearance,Urine CLEAR (Clear); Bilirubin,Urine Negative (Negative); Blood, Urine 3+ (Negative); Color,Urine YELLOW (Yellow); Glucose,Urine (UA) Negative (Negative); Ketones,Urine Negative (Negative); Leukocyte Esterase,Urine 1+ (Negative); Nitrate,Urine POSITIVE (Negative); PH,Urine 6.5 (5.0-8.5); Protein,Urine TRACE (Negative); Specific Gravity, Urine 1.015 (1.005-1.030)
[2023-08-25 20:20] VITALS: BP 149/78; PULSE 82; RESP 19; TEMP 36.8; O2SAT 98
[2023-08-25] MEDS: levoFLOXacin 750 MG TABLET PO (20:21)
[2023-08-25 20:26] LABS: Bacteria,Urine 3+ /lpf
--- NOTE | 2023-08-25 20:48 | PC.NURSE ---
attempted to call miguelina, no answer. contacted [facility] and [facility] staff will contact their manager data
--- NOTE | 2023-08-25 20:57 | PC.NURSE ---
received call from Anushka at [facility]; states will be up here shortly
--- NOTE | 2023-08-29 12:06 | PC.NURSE ---
URINE CULTURE DISCUSSED WITH DR BROOKS, PT ON [facility]. NO NEW ORDERS
== END 2023-08-25 21:13 | disposition home or self-care (01) ==
PROVIDERS: Emergency Provider Emergency Medicine
DX: N10 Acute pyelonephritis (principal); B96.1 Klebsiella pneumoniae [K. pneumoniae] as the cause of diseases classified elsewhere; M54.59 Other low back pain; E03.9 Hypothyroidism, unspecified; I10 Essential (primary) hypertension; K21.9 Gastro-esophageal reflux disease without esophagitis; Z87.891 Personal history of nicotine dependence
CPT/HCPCS: 81001; 87086; 99283

== ENCOUNTER 2023-10-31 20:56 | Emergency (ER) | payer BC, OTHER, SELFPAY ==
[2023-10-31 20:56] VITALS: BP 136/71; RESP 17; TEMP 36.9; O2SAT 94; BMI 43.9
[2023-10-31 21:00] VITALS: BP 138/68; PULSE 88; O2SAT 92
[2023-10-31 21:30] VITALS: BP 106/56; PULSE 85; O2SAT 94
--- NOTE | 2023-10-31 21:34 | CT_ITS ---
PROCEDURE INFORMATION: Exam: CT Lumbar Spine Without Contrast Exam date and time: 10/31/2023 10:07 PM Age: 53 years old Clinical indication: Low back pain; Additional info: Back pain radiating to abdomen, poor historian TECHNIQUE: Imaging protocol: Computed tomography of the lumbar spine without contrast. Total images: 262 Radiation optimization: All CT scans at this facility use at least one of these dose optimization techniques: automated exposure control; mA and/or kV adjustment per patient size (includes targeted exams where dose is matched to clinical indication); or iterative reconstruction. COMPARISON: CT LUMBAR SPINE WO CON 06/17/2022 6:45 PM FINDINGS: Bones/joints: There are 5 non rib-bearing lumbar vertebral segments. Vertebral body height and alignment is maintained. Facet joints are appropriately aligned with mild degenerative spondylosis greatest at L4-L5 and L5-S1. Posterior elements are intact. No concerning bone lesions. Mild degenerative changes bilateral SI joints. Disc space heights are appropriate for age. No disc herniation, spinal canal stenosis, or neural foraminal encroachment. Soft tissues: No paraspinal mass, fluid collection, or soft tissue edema. IMPRESSION: 1. No acute findings. 2. Mild degenerate facet joint spondylosis L4-L5 and L5-S1. 3. No significant degenerative disc disease.
--- NOTE | 2023-10-31 21:34 | CT_ITS ---
PROCEDURE INFORMATION: Exam: CT Thoracic Spine Without Contrast Exam date and time: 10/31/2023 10:05 PM Age: 53 years old Clinical indication: Pain in thoracic spine; Additional info: Back pain radiating to abdomen, poor historian TECHNIQUE: Imaging protocol: Computed tomography of the thoracic spine without contrast. Total images: 334 Radiation optimization: All CT scans at this facility use at least one of these dose optimization techniques: automated exposure control; mA and/or kV adjustment per patient size (includes targeted exams where dose is matched to clinical indication); or iterative reconstruction. COMPARISON: CT THORACIC SPINE WO CON 06/17/2022 6:43 PM FINDINGS: Bones/joints: Thoracic vertebral body height and alignment is maintained. Mild multilevel degenerative disc disease. Facet joints are appropriately aligned. Posterior elements are intact. No concerning bone lesions. No large disc herniation or critical spinal canal stenosis. Cervicothoracic junction is preserved. Minor levocurvature. Soft tissues: No paraspinal mass, soft tissue swelling, or fluid collection. Lungs: Included portions of both lungs are clear. IMPRESSION: 1. No acute process. 2. Mild multilevel degenerative disc disease.
--- NOTE | 2023-10-31 21:34 | CT_ITS ---
PROCEDURE INFORMATION: Exam: CT Abdomen And Pelvis With Contrast Exam date and time: 10/31/2023 10:09 PM Age: 53 years old Clinical indication: Abdominal pain; Additional info: Diffuse abd pain, poor historian TECHNIQUE: Imaging protocol: Computed tomography of the abdomen and pelvis with contrast. Total images: 334 Radiation optimization: All CT scans at this facility use at least one of these dose optimization techniques: automated exposure control; mA and/or kV adjustment per patient size (includes targeted exams where dose is matched to clinical indication); or iterative reconstruction. Contrast material: ISOVUE; Contrast volume: 75 ml; Contrast route: IV; COMPARISON: CT ABDOMEN PELVIS W CON 05/13/2023 9:25 PM FINDINGS: Liver: Cirrhotic liver. No discrete mass on this nondedicated exam. Gallbladder and biliary ducts: Status post cholecystectomy. No biliary ductal dilatation. Pancreas: Normal. No ductal dilation. Spleen: Splenomegaly at 18.6 cm. No splenic mass. Adrenal glands: Normal. No mass. Kidneys and ureters: Stable indeterminate 12 mm right renal cortical hypodensity, too small to characterize. Additional tiny bilateral renal cortical hypodensities. No nephrolithiasis or hydronephrosis. Stomach and bowel: Moderate gastric distension with recently ingested content. Unremarkable duodenum. No ileus or bowel obstruction. Small bowel is within normal limits. Unremarkable terminal ileum. Large colonic stool burden. No acute colonic inflammatory process. Unremarkable rectum. Appendix: Nonvisualized appendix. Question prior appendectomy. Intraperitoneal space: Unremarkable. No free air. No significant fluid collection. Vasculature: Distal paraesophageal varices. No portal vein thrombus. Large perisplenic, mesenteric, and short gastric varices. Left splenorenal shunt. Abdominal wall and perigastric varices. Abdominal aorta is normal in caliber. Lymph nodes: No lymphadenopathy. Urinary bladder: Unremarkable as visualized. Reproductive: Physiologic uterus and ovaries. No adnexal mass. Bones/joints: Mild degenerative changes thoracolumbar spine. No acute osseous abnormality. Soft tissues: Scarring anterior abdominal wall. Mild soft tissue edema and skin thickening lower abdominal pannus may reflect cellulitis or lymphedema. IMPRESSION: 1. Cirrhosis and portal hypertension with extensive varices. 2. No ascites or free air. 3. Stable indeterminate 12 mm right renal cortical lesion. This can be further assessed with nonemergent renal ultrasound. 4. Large colonic stool burden. 5. Cellulitis versus lymphedema in the lower abdominal pannus. COMMENTS: Consistent with the [employer]'s Incidental Findings Committee white paper (J Am Carlyn Radiol 2018): Any incidental renal lesion less than 1 cm or classified as too small to characterize, or any incidental cystic renal lesion characterized as simple-appearing, is likely benign. No follow-up imaging is recommended for these lesions per consensus recommendations based on imaging criteria.
[2023-10-31 21:36] LABS: Microscopic, Urine URINE MICROSCOPIC (MICROSCOPIC)
[2023-10-31 21:41] LABS: Basophils % 0.4 % (0.1-2.0); Eosinophils # 0.1 K/mm3 (0.0-0.4); Eosinophils % 4.5 % (0.1-12.0); Hematocrit 35.3 % (37.0-47.0); Hemoglobin 12.4 g/dL (12.2-16.2); Lymphocytes # 0.9 K/mm3 (0.7-4.5); Lymphocytes % 34.1 % (10-50); Mean Corpuscular HGB Conc 35.1 g/dL (31.8-35.4); Mean Corpuscular Hemoglobin 34.2 pg (27.0-31.2); Mean Corpuscular Volume 97.5 fl (81-99); Mean Platelet Volume 8.1 fl (7.4-10.4); Monocytes # 0.2 K/mm3 (0.1-1.0); Monocytes % 7.8 % (1.7-9.3); Neutrophils # 1.5 K/mm3 (1.8-7.8); Neutrophils % 53.3 % (37.0-80.0); Platelet Count 101 K/mm3 (142-424); Red Blood Count 3.62 M/mm3 (4.20-5.40); Red Cell Distribution Width 14.8 % (11.5-17.5); White Blood Count 2.7 K/mm3 (4.8-10.8)
[2023-10-31 21:42] LABS: Chloride 112 mmol/L (98-107); Sodium 140 mmol/L (136-145)
[2023-10-31 21:42] LABS: Appearance,Urine CLEAR (Clear); Bilirubin,Urine Negative (Negative); Blood, Urine 3+ (Negative); Color,Urine YELLOW (Yellow); Glucose,Urine (UA) Negative (Negative); Ketones,Urine Negative (Negative); Leukocyte Esterase,Urine Negative (Negative); Nitrate,Urine Negative (Negative); Protein,Urine Negative (Negative); Specific Gravity, Urine <= 1.005 (1.005-1.030)
[2023-10-31 21:45] LABS: Alanine Aminotransferase 30 U/L (12-78); Alkaline Phosphatase 63 U/L (38-126); Aspartate Amino Transferase 69 U/L (14-36); Bilirubin,Total 0.9 mg/dl (0.2-1.3); Blood Urea Nitrogen 10 mg/dl (7-17); Calcium 9.1 mg/dl (8.4-10.2); Carbon Dioxide 24 mmol/L (22.0-30.0); Creatinine Clearance Estimated 47 mL/min (50-200); Estimated Glomerular Filt Rate 58 ml/min (>60); GFR (African American) 70 ML/MIN (>60); Glucose 122 mg/dl (74-100); Lipase 118 U/L (23-300)
[2023-10-31 21:46] LABS: Albumin Level 3.3 g/dl (3.5-5.0); Globulin 3.3 g/dL (1.3-3.2); Total Protein,Serum 6.6 g/dl (6.3-8.2)
[2023-10-31] MEDS: KETOROLAC 30MG/ML VIAL 15 MG IV (21:55)
[2023-10-31 21:56] LABS: Squamous Epithelial Cell,Urine Occasional #/hpf (0-5)
[2023-10-31] MEDS: IOPAMIDOL-370 (76%);100ML BOTTLE 75 ML IV (22:13)
[2023-10-31] MEDS: SODIUM CHLORIDE 0.9% 10ML SYR (RAD ONLY) 10 ML IV (22:13)
--- NOTE | 2023-10-31 22:13 | [facility].EDGENADL ---
Discharge Plan Disposition Patient Disposition: Home, Self-Care Prescriptions Prescriptions: No Action levofloxacin 750 mg tablet 750 mg PO DAILY 7 Days Qty: 7 0RF amitriptyline 50 mg Tablet 50 mg PO HS carvedilol 3.125 mg Tablet 3.125 mg PO BID levothyroxine 100 mcg Tablet 100 mcg PO AM pantoprazole 40 mg Tablet,Delayed Release (Dr/Ec) 40 mg PO DAILY duloxetine 30 mg Capsule,Delayed Release(Dr/Ec) 30 mg PO DAILY melatonin 5 mg tablet 5 mg PO HS oxcarbazepine 300 mg tablet 300 mg PO BID amlodipine 5 mg tablet 5 mg PO HS pyridoxine (vitamin B6) 50 mg tablet 50 mg PO DAILY acetaminophen 325 mg Tablet 325 mg PO QID PRN (Reason: Pain) cyclobenzaprine 5 mg Tablet 5 mg PO TID PRN (Reason: Muscle Pain ) ferrous sulfate 324 mg (65 mg iron) tablet,delayed release (DR/EC) 324 mg PO DAILY Rx Instructions: take 1 tab every other day albuterol sulfate 90 mcg/actuation HFA aerosol inhaler 1 puff inhalation Q6H PRN (Reason: Shortness Of Breath) Patient Comments: INHALE 1 PUFF BY MOUTH EVERY 6 HOURS NEEDED may keep AT bedside (shortness of breath) hydroxyzine pamoate 25 mg Capsule 25 mg PO QID PRN (Reason: Anxiety) Xifaxan 550 mg Tablet 550 mg PO BID 30 Days Qty: 60 2RF lactulose 20 gram/30 mL Solution 20 g PO BID 30 Days Qty: 1800 0RF Referrals Follow up/Referrals: Provider,Referral, [Primary Care Provider] - See instructions Activity Restrictions/Add. Instructions Additional Instructions/Restrictions: Recommend following up with your primary care provider to have an ultrasound of your right kidney. There is a small lesion on it that needs to be further characterized. Recommend increasing your bowel regimen at home, such as taking regular MiraLAX to have 1-2 soft stools per day. Please follow-up with your primary care provider. Please return to the emergency department if you develop any new or worsening symptoms or become concerned for your health. Clinical Impressions Clinical Impression: Abnormal finding on diagnostic imaging of kidney, Constipation Instructions Patient Instructions: DI for Low Back Pain Discharge ED Provider: Federico Benjamin General Adult HPI <Micheal Leon MD - Last Filed: 10/31/23 23:35> General Chief complaint: PAIN Stated complaint: back pain Time Seen by Provider: 10/31/23 20:59 Mode of Arrival: EMS Source of Information: Patient and EMS Limitations: Altered Mental Status Description of Symptoms (Recalled from ER Triage Doc. by RN): Patient arrived via EMS. Patient complains of back pain, abdominal pain, neck pain, and generalized body aches 8/10 that started today. Patient is confused at baseline. Ambulatory when EMS arrived. Patient reports she took something for pain but is unable to tell us what she took. History of Present Illness HPI narrative: Please note that above description of symptoms, in this electronic medical record under categorization of recalled from ER triage doctor by RN are reflective of an initial nursing assessment, however, is not reflective of my full history and physical exam that was personally taken and clarified. Consequentially, this preceding description of symptoms, which may include the patient's categorized chief complaint in the EMR, do not reflect my personal clinical impression, and the ultimate description of history of present illness and patient stated complaints should be deferred to this section of the note. Unless stated otherwise or congruent with this section of the note, additional signs, symptoms, or incongruence should be interpreted as inaccurate with my clinical impression. Related Data Home Medications Medication Instructions Recorded Confirmed amitriptyline 50 mg tablet 50 mg PO HS 05/02/22 07/18/23 carvedilol 3.125 mg tablet 3.125 mg PO BID 05/02/22 07/18/23 duloxetine 30 mg capsule,delayed 30 mg PO DAILY 05/02/22 07/18/23 release levothyroxine 100 mcg tablet 100 mcg PO AM 05/02/22 07/18/23 pantoprazole 40 mg tablet,delayed 40 mg PO DAILY 05/02/22 07/18/23 release melatonin 5 mg tablet 5 mg PO HS 05/03/22 07/18/23 oxcarbazepine 300 mg tablet 300 mg PO BID 02/20/23 07/18/23 amlodipine 5 mg tablet 5 mg PO HS 02/21/23 07/18/23 pyridoxine (vitamin B6) 50 mg 50 mg PO DAILY 02/21/23 07/18/23 tablet acetaminophen 325 mg tablet 325 mg PO QID PRN Pain 05/14/23 07/18/23 cyclobenzaprine 5 mg tablet 5 mg PO TID PRN Muscle Pain 05/14/23 07/18/23 ferrous sulfate 324 mg (65 mg 324 mg PO DAILY 05/14/23 07/19/23 iron) tablet,delayed release albuterol sulfate 90 mcg/actuation 1 puff inhalation Q6H PRN 07/18/23 07/18/23 aerosol inhaler Shortness Of Breath hydroxyzine pamoate 25 mg capsule 25 mg PO QID PRN Anxiety 07/19/23 07/19/23 Previous Rx's Medication Instructions Recorded lactulose 20 gram/30 mL oral 20 g (30 mL) PO BID 30 days #1,800 07/20/23 solution mL rifaximin 550 mg tablet (Xifaxan) 550 mg PO BID 30 days #60 tabs 07/20/23 levofloxacin 750 mg tablet 750 mg PO DAILY 7 days #7 tabs 08/25/23 Allergies Allergy/AdvReac Type Severity Reaction Status Date / Time amoxicillin [From Augmentin] Allergy Verified 07/18/23 16:29 clavulanic acid Allergy Verified 07/18/23 16:29 [From Augmentin] oxycodone Allergy Verified 07/18/23 16:29 PFSH <Micheal Leon MD - Last Filed: 10/31/23 23:35> [facility] Disclaimer: The information contained in this section may have been updated after the patient was seen, as this information can be updated by other users. Medical History SIRS (systemic inflammatory response syndrome) Acute hepatic encephalopathy Bipolar 1 disorder Metabolic encephalopathy Respiratory failure Cellulitis Fall Hypothyroidism Hypertension UTI (urinary tract infection) Encephalopathy Cognitive impairment Murmur, heart Cirrhosis of liver Obstructive sleep apnea Hypothyroid Anxiety Surgical History H/O section H/O hernia repair Hx of appendectomy Family History Other No significant family history Social History Smoking Status: Never smoker alcohol intake: never current occupational status: disabled Travel in the last 8 weeks: None <Micheal Leon MD - Last Filed: 10/31/23 23:35> ROS Obtained: Yes All systems reviewed & no additional complaints except as documented Physical Exam <Micheal Leon MD - Last Filed: 10/31/23 23:35> General General appearance: alert, in no apparent distress and other (Chronically ill-appearing, acutely well) Head Head exam: atraumatic and normocephalic Eye Eye exam: Present normal appearance, PERRL and EOMI ENT ENT exam: Present mucous membranes moist Neck Neck exam: Present normal inspection, full ROM and trachea midline Respiratory Respiratory exam: Absent respiratory distress, wheezes, stridor, accessory muscle use or prolonged expiratory phase Cardiovascular Cardiovascular exam: Present normal rhythm Abdominal Exam Abdominal exam: Present soft and tenderness (Initially patient without pain on my evaluation with deep palpation of abdomen. When not distracted, patient complaining of diffuse pain without focal finding.); Absent distention, guarding, rebound or rigidity Extremities Exam Extremities exam: Absent edema Neurological Exam Neurological exam: Present alert, oriented X3, CN II-XII intact and normal gait; Absent motor sensory deficit Skin Skin exam: Present warm and dry; Absent diaphoresis or erythema Medical Decision Making <Micheal Leon MD - Last Filed: 10/31/23 23:35> Medical Records Medical records reviewed: Yes I reviewed the patient's medical records. Darrian Inquiry Pt receiving controlled substance: No Darrian was queried for this patient: No Vital Signs: 10/31/23 20:56 10/31/23 21:00 10/31/23 21:30 Temperature 98.5 F Temperature Source Oral Pulse Rate 88 85 Respiratory Rate 17 Blood Pressure 138/68 106/56 L Blood Pressure [Right Arm] 136/71 Blood Pressure Mean 91 72 Blood Pressure Mean [Right Arm] 92 Blood Pressure Source [Right Arm] Automatic Cuff Blood Pressure Position [Right Arm] Sitting 02 Sat by Pulse Oximetry 94 L 92 L 94 L Oxygen Delivery Method Room Air Room Air Room Air 10/31/23 22:30 10/31/23 23:00 Temperature Temperature Source Pulse Rate 85 87 Respiratory Rate 20 18 Blood Pressure 108/54 L 104/49 L Blood Pressure [Right Arm] Blood Pressure Mean 67 Blood Pressure Mean [Right Arm] Blood Pressure Source [Right Arm] Blood Pressure Position [Right Arm] 02 Sat by Pulse Oximetry 93 L 92 L Oxygen Delivery Method Room Air Room Air Lab Data Lab Results 10/31/23 21:13: WBC 2.7 L, RBC 3.62 L, Hgb 12.4, Hct 35.3 L, MCV 97.5, MCH 34.2 H, MCHC 35.1, RDW 14.8, Plt Count 101 L, MPV 8.1, Neut % (Auto) 53.3, Lymph % (Auto) 34.1, [place] % (Auto) 7.8, Eos % (Auto) 4.5, Baso % (Auto) 0.4, Neut # (Auto) 1.5 L, Lymph # (Auto) 0.9, [place] # (Auto) 0.2, Eos # (Auto) 0.1, Baso # (Auto) 0.0, Sodium 140, Potassium 4.0, Chloride 112 H, Carbon Dioxide 24, Anion Gap 8.0, BUN 10, Creatinine 1.00, Estimated Creat Clear 47, Estimated GFR 58 L, Est GFR ( Amer) 70, Glucose 122 H, Calcium 9.1, Total Bilirubin 0.9, AST 69 H, ALT 30, Alkaline Phosphatase 63, Total Protein 6.6, Albumin 3.3 L, Globulin 3.3 H, Albumin/Globulin Ratio 1.0 L, Lipase 118 10/31/23 21:23: Urine Color Yellow, Urine Appearance Clear, Urine pH 6.0, Ur Specific [place] <= 1.005, Urine Protein Negative, Urine Glucose (UA) Negative, Urine Ketones Negative, Urine Blood 3+, Urine Nitrate Negative, Urine Bilirubin Negative, Urine Urobilinogen 1.0, Ur Leukocyte Esterase Negative, Urine RBC 3-5, Urine WBC None, Ur Squamous Epith Cells Occasional, Urine Bacteria None 10/31/23 21:13 10/31/23 21:13 Orders (Tests/Meds): ED MEDICATIONS Generic Name Dose Route Start Last Admin Trade Name Freq PRN Reason Stop Dose Admin Sodium Chloride 10 ml 10/31/23 22:13 10/31/23 22:13 Sodium Chloride 0.9% 10ml Syr (Rad Only) IV 11/30/23 22:12 10 ml NEEDED PRN Administration Maintain IV Site Discontinued Medications Generic Name Dose Route Start Last Admin Trade Name Freq PRN Reason Stop Dose Admin Iopamidol 75 ml 10/31/23 22:13 10/31/23 22:13 Iopamidol-370 (76%);100ml Bottle IV 10/31/23 22:14 75 ml ONCE ONE Administration Ketorolac Tromethamine 15 mg 10/31/23 21:34 10/31/23 21:55 Ketorolac 30mg/Ml Vial IV 10/31/23 21:35 15 mg ONCE ONE Administration ORDERS Category Date Time Status CT abdomen pelvis w con Stat Cat Scan 10/31/23 21:[address] lumbar spine wo con Stat Cat Scan 10/31/23 21:[address] thoracic spine wo con Stat Cat Scan 10/31/23 21:34 Completed CBC w/Auto Diff [Complete Blood Count Auto Diff] Stat Lab 10/31/23 21:13 Completed CMP [Comprehensive Metabolic Panel] Stat Lab 10/31/23 21:13 Completed Lipase Stat Lab 10/31/23 21:13 Completed UA [Urinalysis and Microscopic] Stat Lab 10/31/23 21:23 Completed Medical Decision Narrative: 53-year-old female history of hypertension, hyperlipidemia, hypothyroidism, UTIs, chronic back pain presenting with back pain. Patient states that back pain started 2 days ago. She was not doing anything in particular, got worse today. Starts in her mid to lower back, radiates around to her navel bilaterally. No nausea, vomiting, dysuria, hematuria, fevers, chills, or any other concerns. No bowel or bladder function changes, saddle anesthesia, or any other concerns. history was obtained via conversation with patient. On arrival, patient hemodynamically stable, alert, oriented x4, appropriate, GCS 15, moving all extremities spontaneously, pupils equal and reactive to light. Full physical exam performed and significant for patient is chronically ill-appearing, no acute distress. Abdominal tenderness is distractible. Patient nondistended, nontender, no overlying skin changes. No flank tenderness. Ambulatory, transfers without issue. Neurovascular intact in lower extremities without saddle anesthesia. Differential includes radiculopathy, neuropathy, fracture, disc herniation, pyelonephritis, aortic aneurysm, UTI, chronic pain, pancreatitis, among others. Patient was given Toradol for symptomatic management and correction of underlying abnormalities. Workup independently interpreted and significant for leukopenia with relative neutropenia, patient seems to have been here numerous times in the past. Not abnormal for her. Chemistry with nonactionable findings. Urinalysis with blood, but no signs of infection. CT abdomen pelvis without obvious intra-abdominal pathology. No obvious stone. Prior to radiology final read, care handed off to oncoming physician. Director Microbiology disclaimer Much of this encounter note is an electronic director medical surgical spoken language to printed text. Electronic director medical surgical of the spoken language may permit errors. Although I have reviewed the note, some errors may still exist. <Federico Benjamin MD - Last Filed: 11/01/23 00:26> Vital Signs: 10/31/23 20:56 10/31/23 21:00 10/31/23 21:30 Temperature 98.5 F Temperature Source Oral Pulse Rate 88 85 Respiratory Rate 17 Blood Pressure 138/68 106/56 L Blood Pressure [Right Arm] 136/71 Blood Pressure Mean 91 72 Blood Pressure Mean [Right Arm] 92 Blood Pressure Source [Right Arm] Automatic Cuff Blood Pressure Position [Right Arm] Sitting 02 Sat by Pulse Oximetry 94 L 92 L 94 L Oxygen Delivery Method Room Air Room Air Room Air 10/31/23 22:30 10/31/23 23:00 Temperature Temperature Source Pulse Rate 85 87 Respiratory Rate 20 18 Blood Pressure 108/54 L 104/49 L Blood Pressure [Right Arm] Blood Pressure Mean 67 Blood Pressure Mean [Right Arm] Blood Pressure Source [Right Arm] Blood Pressure Position [Right Arm] 02 Sat by Pulse Oximetry 93 L 92 L Oxygen Delivery Method Room Air Room Air Lab Data Lab Results 10/31/23 21:13: WBC 2.7 L, RBC 3.62 L, Hgb 12.4, Hct 35.3 L, MCV 97.5, MCH 34.2 H, MCHC 35.1, RDW 14.8, Plt Count 101 L, MPV 8.1, Neut % (Auto) 53.3, Lymph % (Auto) 34.1, [place] % (Auto) 7.8, Eos % (Auto) 4.5, Baso % (Auto) 0.4, Neut # (Auto) 1.5 L, Lymph # (Auto) 0.9, [place] # (Auto) 0.2, Eos # (Auto) 0.1, Baso # (Auto) 0.0, Sodium 140, Potassium 4.0, Chloride 112 H, Carbon Dioxide 24, Anion Gap 8.0, BUN 10, Creatinine 1.00, Estimated Creat Clear 47, Estimated GFR 58 L, Est GFR ( Amer) 70, Glucose 122 H, Calcium 9.1, Total Bilirubin 0.9, AST 69 H, ALT 30, Alkaline Phosphatase 63, Total Protein 6.6, Albumin 3.3 L, Globulin 3.3 H, Albumin/Globulin Ratio 1.0 L, Lipase 118 10/31/23 21:23: Urine Color Yellow, Urine Appearance Clear, Urine pH 6.0, Ur Specific [place] <= 1.005, Urine Protein Negative, Urine Glucose (UA) Negative, Urine Ketones Negative, Urine Blood 3+, Urine Nitrate Negative, Urine Bilirubin Negative, Urine Urobilinogen 1.0, Ur Leukocyte Esterase Negative, Urine RBC 3-5, Urine WBC None, Ur Squamous Epith Cells Occasional, Urine Bacteria None Orders (Tests/Meds): ED MEDICATIONS Generic Name Dose Route Start Last Admin Trade Name Freq PRN Reason Stop Dose Admin Sodium Chloride 10 ml 10/31/23 22:13 10/31/23 22:13 Sodium Chloride 0.9% 10ml Syr (Rad Only) IV 11/30/23 22:12 10 ml NEEDED PRN Administration Maintain IV Site Discontinued Medications Generic Name Dose Route Start Last Admin Trade Name Freq PRN Reason Stop Dose Admin Iopamidol 75 ml 10/31/23 22:13 10/31/23 22:13 Iopamidol-370 (76%);100ml Bottle IV 10/31/23 22:14 75 ml ONCE ONE Administration Ketorolac Tromethamine 15 mg 10/31/23 21:34 10/31/23 21:55 Ketorolac 30mg/Ml Vial IV 10/31/23 21:35 15 mg ONCE ONE Administration ORDERS Category Date Time Status CT abdomen pelvis w con Stat Cat Scan 10/31/23 21:[address] lumbar spine wo con Stat Cat Scan 10/31/23 21:[address] thoracic spine wo con Stat Cat Scan 10/31/23 21:34 Completed CBC w/Auto Diff [Complete Blood Count Auto Diff] Stat Lab 10/31/23 21:13 Completed CMP [Comprehensive Metabolic Panel] Stat Lab 10/31/23 21:13 Completed Lipase Stat Lab 10/31/23 21:13 Completed UA [Urinalysis and Microscopic] Stat Lab 10/31/23 21:23 Completed Medical Decision Narrative: 53-year-old female history of hypertension, hyperlipidemia, hypothyroidism, UTIs, chronic back pain presenting with back pain. Patient states that back pain started 2 days ago. She was not doing anything in particular, got worse today. Starts in her mid to lower back, radiates around to her navel bilaterally. No nausea, vomiting, dysuria, hematuria, fevers, chills, or any other concerns. No bowel or bladder function changes, saddle anesthesia, or any other concerns. history was obtained via conversation with patient. On arrival, patient hemodynamically stable, alert, oriented x4, appropriate, GCS 15, moving all extremities spontaneously, pupils equal and reactive to light. Full physical exam performed and significant for patient is chronically ill-appearing, no acute distress. Abdominal tenderness is distractible. Patient nondistended, nontender, no overlying skin changes. No flank tenderness. Ambulatory, transfers without issue. Neurovascular intact in lower extremities without saddle anesthesia. Differential includes radiculopathy, neuropathy, fracture, disc herniation, pyelonephritis, aortic aneurysm, UTI, chronic pain, pancreatitis, among others. Patient was given Toradol for symptomatic management and correction of underlying abnormalities. Workup independently interpreted and significant for leukopenia with relative neutropenia, patient seems to have been here numerous times in the past. Not abnormal for her. Chemistry with nonactionable findings. Urinalysis with blood, but no signs of infection. CT abdomen pelvis without obvious intra-abdominal pathology. No obvious stone. Prior to radiology final read, care handed off to oncoming physician. Director Microbiology disclaimer Much of this encounter note is an electronic director medical surgical spoken language to printed text. Electronic director medical surgical of the spoken language may permit errors. Although I have reviewed the note, some errors may still exist. Sourav PARADA: I assumed care of the patient at the time of handoff from the prior provider. On reassessment patient reports some symptomatic improvement. CT imaging was independently interpreted by me and shows moderate to large colonic stool burden which is likely the cause of patient's pain. Patient also has a right kidney lesion of indeterminate etiology. I discussed with the patient, she will need to follow-up with their PCP for formal ultrasound. They also read some soft tissue abnormality in the abdominal wall on the CT scan. On exam patient has no evidence of cellulitis, specifically has no induration, erythema, lesion of any kind. Likely just lymphedema. Interactive discussion was had with patient regarding her presentation and workup. She was discharged in stable condition with return precautions and instructions to follow-up with PCP and to begin taking MiraLAX to improve her bowel regularity. Critical Care <Micheal Leon MD - Last Filed: 10/31/23 23:35> Critical Care Time Critical Care Time: No
[2023-10-31 22:30] VITALS: BP 108/54; PULSE 85; RESP 20; O2SAT 93
[2023-10-31 23:00] VITALS: BP 104/49; PULSE 87; RESP 18; O2SAT 92
[2023-10-31 23:30] VITALS: BP 119/59; PULSE 80; RESP 18; O2SAT 95
[2023-11-01 00:12] VITALS: BP 100/56; PULSE 78; RESP 16; O2SAT 96
[2023-11-01 00:49] VITALS: BP 110/55; PULSE 78; RESP 18; TEMP 36.9; O2SAT 96
== END 2023-11-01 00:51 | disposition home or self-care (01) ==
PROVIDERS: Emergency Medicine; Emergency Provider Emergency Medicine
DX: R93.421 Abnormal radiologic findings on diagnostic imaging of right kidney (principal); K59.00 Constipation, unspecified; M54.9 Dorsalgia, unspecified; E03.9 Hypothyroidism, unspecified; I10 Essential (primary) hypertension; E78.5 Hyperlipidemia, unspecified
CPT/HCPCS: 72128; 72131; 74177; 80053; 81001; 83690; 85025; 96374; 99285; J1885; Q9967

== ENCOUNTER 2024-01-06 21:47 | Emergency (ER) | payer BC, OTHER, SELFPAY ==
[2024-01-06 21:48] VITALS: BP 129/70; PULSE 68; RESP 20; TEMP 36.8; O2SAT 95; BMI 41.5
--- NOTE | 2024-01-06 21:51 | ED_ITS ---
Discharge Plan Disposition Patient Disposition: Home, Self-Care Condition: Good Prescriptions Prescriptions: New promethazine 25 mg suppository 25 mg MI Q6H PRN (Reason: sedation) Qty: 12 0RF prednisone 50 mg tablet 50 mg PO DAILY 5 Days Qty: 5 0RF No Action levofloxacin 750 mg tablet 750 mg PO DAILY 7 Days Qty: 7 0RF amitriptyline 50 mg Tablet 50 mg PO HS carvedilol 3.125 mg Tablet 3.125 mg PO BID levothyroxine 100 mcg Tablet 100 mcg PO AM pantoprazole 40 mg Tablet,Delayed Release (Dr/Ec) 40 mg PO DAILY duloxetine 30 mg Capsule,Delayed Release(Dr/Ec) 30 mg PO DAILY melatonin 5 mg tablet 5 mg PO HS oxcarbazepine 300 mg tablet 300 mg PO BID amlodipine 5 mg tablet 5 mg PO HS pyridoxine (vitamin B6) 50 mg tablet 50 mg PO DAILY acetaminophen 325 mg Tablet 325 mg PO QID PRN (Reason: Pain) cyclobenzaprine 5 mg Tablet 5 mg PO TID PRN (Reason: Muscle Pain ) ferrous sulfate 324 mg (65 mg iron) tablet,delayed release (DR/EC) 324 mg PO DAILY Rx Instructions: take 1 tab every other day albuterol sulfate 90 mcg/actuation HFA aerosol inhaler 1 puff inhalation Q6H PRN (Reason: Shortness Of Breath) Patient Comments: INHALE 1 PUFF BY MOUTH EVERY 6 HOURS NEEDED may keep AT bedside (shortness of breath) hydroxyzine pamoate 25 mg Capsule 25 mg PO QID PRN (Reason: Anxiety) Xifaxan 550 mg Tablet 550 mg PO BID 30 Days Qty: 60 2RF lactulose 20 gram/30 mL Solution 20 g PO BID 30 Days Qty: 1800 0RF Referrals Follow up/Referrals: Provider,Referral, MD [Primary Care Provider] - See instructions Clinical Impressions Clinical Impression: Nausea Headache Qualifiers: Headache type: unspecified Headache chronicity pattern: acute headache In tractability: not intractable Qualified Code(s): R51.9 - Headache, unspecified Print Language Print Language: Egyptian Discharge ED Provider: Micheal Leon General Adult HPI <NADEEN Galvin - Last Filed: 01/06/24 22:54> General Chief complaint: Weakness Stated complaint: weakness, nausea, Time Seen by Provider: 01/06/24 21:49 History of Present Illness HPI narrative: Patient presents for evaluation of cough malaise and nausea. Patient states that she began having a headache all day has persistent cough and feeling generally unwell. Patient is cognitively impaired at baseline. She is thus not a very reliable historian. She denies however fever chills hemoptysis hematochezia melena vomiting or diarrhea. She is not intolerant to oral intake and is passing flatus but has not had a bowel movement in 2 days. Related Data Home Medications ?Medication ?Instructions ?Recorded ?Confirmed amitriptyline 50 mg tablet 50 mg PO HS 05/02/22 07/18/23 carvedilol 3.125 mg tablet 3.125 mg PO BID 05/02/22 07/18/23 duloxetine 30 mg capsule,delayed 30 mg PO DAILY 05/02/22 07/18/23 release levothyroxine 100 mcg tablet 100 mcg PO AM 05/02/22 07/18/23 pantoprazole 40 mg tablet,delayed 40 mg PO DAILY 05/02/22 07/18/23 release melatonin 5 mg tablet 5 mg PO HS 05/03/22 07/18/23 oxcarbazepine 300 mg tablet 300 mg PO BID 02/20/23 07/18/23 amlodipine 5 mg tablet 5 mg PO HS 02/21/23 07/18/23 pyridoxine (vitamin B6) 50 mg 50 mg PO DAILY 02/21/23 07/18/23 tablet acetaminophen 325 mg tablet 325 mg PO QID PRN Pain 05/14/23 07/18/23 cyclobenzaprine 5 mg tablet 5 mg PO TID PRN Muscle Pain 05/14/23 07/18/23 ferrous sulfate 324 mg (65 mg 324 mg PO DAILY 05/14/23 07/19/23 iron) tablet,delayed release albuterol sulfate 90 mcg/actuation 1 puff inhalation Q6H PRN 07/18/23 07/18/23 aerosol inhaler Shortness Of Breath hydroxyzine pamoate 25 mg capsule 25 mg PO QID PRN Anxiety 07/19/23 07/19/23 Previous Rx's ?Medication ?Instructions ?Recorded lactulose 20 gram/30 mL oral 20 g (30 mL) PO BID 30 days #1,800 07/20/23 solution mL rifaximin 550 mg tablet (Xifaxan) 550 mg PO BID 30 days #60 tabs 07/20/23 levofloxacin 750 mg tablet 750 mg PO DAILY 7 days #7 tabs 08/25/23 prednisone 50 mg tablet 50 mg PO DAILY 5 days #5 tabs 01/06/24 promethazine 25 mg rectal 25 mg MI Q6H PRN sedation #12 ea 01/06/24 suppository Allergies Allergy/AdvReac Type Severity Reaction Status Date / Time amoxicillin [From Augmentin] Allergy Verified 07/18/23 16:29 clavulanic acid Allergy Verified 07/18/23 16:29 [From Augmentin] oxycodone Allergy Verified 07/18/23 16:29 PFSH <NADEEN Galvin - Last Filed: 01/06/24 22:54> [facility] Disclaimer: The information contained in this section may have been updated after the patient was seen, as this information can be updated by other users. Medical History SIRS (systemic inflammatory response syndrome) Acute hepatic encephalopathy Bipolar 1 disorder Metabolic encephalopathy Respiratory failure Cellulitis Fall Hypothyroidism Hypertension UTI (urinary tract infection) Encephalopathy Cognitive impairment Murmur, heart Cirrhosis of liver Obstructive sleep apnea Hypothyroid Anxiety Surgical History H/O section H/O hernia repair Hx of appendectomy Family History Other No significant family history Social History Smoking Status: Never smoker alcohol intake: never current occupational status: disabled Travel in the last 8 weeks: None <NADEEN Galvin - Last Filed: 01/06/24 22:54> ROS Obtained: Yes Systems reviewed as appropriate & no additional complaints except as documented Physical Exam <NADEEN Galvin - Last Filed: 01/06/24 22:54> General General appearance: alert and in no apparent distress Respiratory Respiratory exam: Present normal lung sounds bilaterally Cardiovascular Cardiovascular exam: Present regular rate Neurological Exam Neurological exam: Present alert and oriented X3 Medical Decision Making <NADEEN Galvin - Last Filed: 01/06/24 22:54> Medical Records Medical records reviewed: Yes I reviewed the patient's medical records. Darrian Inquiry Pt receiving controlled substance: No Vital Signs: 01/06/24 21:48 01/06/24 23:10 Temperature 98.2 F 98.2 F Temperature Source Oral Pulse Rate 74 Pulse Rate [Left Radial] 68 Respiratory Rate 20 18 Blood Pressure 126/76 Blood Pressure [Right Arm] 129/70 Blood Pressure Mean [Right Arm] 89 Blood Pressure Source [Right Arm] Automatic Cuff 02 Sat by Pulse Oximetry 95 Oxygen Delivery Method Room Air Room Air Lab Data Lab results reviewed: Yes I reviewed the patient's lab results. Lab Results 01/06/24 22:07: SARS-CoV-2 (PCR) Not detected, Influenza A Untype (PCR) Not detected, Influenza Type B (PCR) Not detected Orders (Tests/Meds): ED MEDICATIONS Discontinued Medications Generic Name Dose Route Start Last Admin Trade Name Freq PRN Reason Stop Dose Admin Acetaminophen 1,000 mg 01/06/24 21:54 01/06/24 22:10 Acetaminophen 500mg Tab PO 01/06/24 21:55 1,000 mg ONCE ONE Administration Ibuprofen 800 mg 01/06/24 21:54 01/06/24 22:10 Ibuprofen 400 Mg Tablet PO 01/06/24 21:55 800 mg ONCE ONE Administration Ondansetron HCl 4 mg 01/06/24 21:54 01/06/24 22:11 Ondansetron 4mg Odt SL 01/06/24 21:55 4 mg ONCE ONE Administration ORDERS Category Date Time Status Rapid PCR Covid and Flu A/B Stat Lab 01/06/24 22:07 Completed Medical Decision Narrative: In summary patient is a 53-year-old female who presents to the emergency department for evaluation of headache cough malaise. Patient is hemodynamically stable upon arrival, afebrile. Physical exam is remarkable for clear breath sounds no abdominal tenderness on palpation sinus rhythm on the bedside monitor no focal neurologic deficits benign abdominal exam. Differential diagnosis includes headache versus viral syndrome versus viral bacterial infection etc. Initial workup will be conducted with hematologic labs COVID and flu swabs plain film chest x-rayr. Initial interventions include Tylenol and ibuprofen. Initial workup shows that she does not have COVID. As we have essentially ruled out any serious left-sided problem we will discharge the patient with a steroid Dosepak Phenergan suppositories as Zofran was refractory for her in the ER. Patient still reports nausea but has had no evidence of vomiting or other acute illness and remains hemodynamically stable. <Micheal Leon MD - Last Filed: 01/08/24 16:41> Vital Signs: 01/06/24 21:48 01/06/24 23:10 Temperature 98.2 F 98.2 F Temperature Source Oral Pulse Rate 74 Pulse Rate [Left Radial] 68 Respiratory Rate 20 18 Blood Pressure 126/76 Blood Pressure [Right Arm] 129/70 Blood Pressure Mean [Right Arm] 89 Blood Pressure Source [Right Arm] Automatic Cuff 02 Sat by Pulse Oximetry 95 Oxygen Delivery Method Room Air Room Air Lab Data Lab Results 01/06/24 22:07: SARS-CoV-2 (PCR) Not detected, Influenza A Untype (PCR) Not detected, Influenza Type B (PCR) Not detected Orders (Tests/Meds): ED MEDICATIONS Discontinued Medications Generic Name Dose Route Start Last Admin Trade Name Freq PRN Reason Stop Dose Admin Acetaminophen 1,000 mg 01/06/24 21:54 01/06/24 22:10 Acetaminophen 500mg Tab PO 01/06/24 21:55 1,000 mg ONCE ONE Administration Ibuprofen 800 mg 01/06/24 21:54 01/06/24 22:10 Ibuprofen 400 Mg Tablet PO 01/06/24 21:55 800 mg ONCE ONE Administration Ondansetron HCl 4 mg 01/06/24 21:54 01/06/24 22:11 Ondansetron 4mg Odt SL 01/06/24 21:55 4 mg ONCE ONE Administration ORDERS Category Date Time Status Rapid PCR Covid and Flu A/B Stat Lab 01/06/24 22:07 Completed Medical Decision Narrative: In summary patient is a 53-year-old female who presents to the emergency department for evaluation of headache cough malaise. Patient is hemodynamically stable upon arrival, afebrile. Physical exam is remarkable for clear breath sounds no abdominal tenderness on palpation sinus rhythm on the bedside monitor no focal neurologic deficits benign abdominal exam. Differential diagnosis includes headache versus viral syndrome versus viral bacterial infection etc. Initial workup will be conducted with hematologic labs COVID and flu swabs plain film chest x-ray. Initial interventions include Tylenol and ibuprofen. Initial workup shows that she does not have COVID. As we have essentially ruled out any serious left-sided problem we will discharge the patient with a steroid Dosepak Phenergan suppositories as Zofran was refractory for her in the ER. Patient still reports nausea but has had no evidence of vomiting or other acute illness and remains hemodynamically stable. I was consulted by the [facility], and we discussed the complexity of the problems being addressed. I approved the treatment and management plan for this patient's care in the Emergency Department, thus performing a substantive portion of the medical decision making. Micheal Leon MD Critical Care <NADEEN Galvin - Last Filed: 01/06/24 22:54> Critical Care Time Critical Care Time: No
[2024-01-06] MEDS: ACETAMINOPHEN 500MG TAB 1000 MG PO (22:10)
[2024-01-06] MEDS: IBUPROFEN 400 MG TABLET 800 MG PO (22:10)
[2024-01-06 22:11] LABS: Coronavirus 19, PCR Not Detected (NotDetected); Influenza A, PCR Not Detected (NotDetected); Influenza B, PCR Not Detected (NotDetected)
[2024-01-06] MEDS: ONDANSETRON 4MG ODT 4 MG SL (22:11)
[2024-01-06 23:10] VITALS: BP 126/76; PULSE 74; RESP 18; TEMP 36.8; O2SAT 94
== END 2024-01-06 23:22 | disposition home or self-care (01) ==
PROVIDERS: Physician Assistant; Emergency Provider Emergency Medicine
DX: R51.9 Headache, unspecified (principal); R11.0 Nausea
CPT/HCPCS: 87636; 99283; Q0162

== ENCOUNTER 2024-02-07 13:26 | Outpatient (CLI) | payer BC, OTHER, SELFPAY ==
--- NOTE | 2024-02-07 13:36 | XR_ITS ---
FINAL REPORT CLINICAL HISTORY: right knee pain COMPARISON: None FINDINGS: Three views of the right knee reveal no evidence of fracture or dislocation. The bony alignment is normal. Mild degenerative changes are present. There is no evidence of joint effusion. No localized soft tissue abnormality is identified. IMPRESSION: Mild degenerative change without acute bony abnormality. Reviewed, Interpreted and Dictated by Cristian Coleman III, MD Transcribed by Tena Espinoza Authenticated and . [facility]
--- NOTE | 2024-02-07 13:36 | XR_ITS ---
FINAL REPORT CLINICAL HISTORY: left knee pain COMPARISON: None FINDINGS: LEFT KNEE: Three views of the left knee were obtained. There is no acute fracture or dislocation. Mild degenerative changes present. Visualized joint spaces are normally aligned. There is no joint effusion. Soft tissues are unremarkable. IMPRESSION: Mild degenerative change without acute bony abnormality. Reviewed, Interpreted and Dictated by Cristian Coleman III, MD Transcribed by Tena Espinoza Authenticated and [facility]
== END 2024-02-07 23:59 | disposition home or self-care (01) ==
PROVIDERS: Visit Provider Physician Assistant
DX: M25.561 Pain in right knee (principal); M25.562 Pain in left knee
CPT/HCPCS: 73562

== ENCOUNTER 2024-02-18 18:28 | Emergency (ER) | payer BC, OTHER, SELFPAY ==
[2024-02-18] VITALS (8 sets, daily range): BP systolic 112–145; BP diastolic 69–85; PULSE 66–74; RESP 13–20; TEMP 36.6–36.7; O2SAT 92–98; BMI 43.9
--- NOTE | 2024-02-18 18:26 | ECG_ITS ---
APPROVED REPORT Exam: Resting ECG HR:73 bpm ECG Measurements Heart Rate 73 AXES OK 168 P 53 QRSd 97 QRS 14 QT 404 T 41 QTc 429 Conclusion SINUS RHYTHM NORMAL ECG UNCONFIRMED REPORT Electronically signed by : CONNIE PATIÑO, 02/19/2024 06:27:06
[2024-02-18 18:43] LABS: Basophils % 0.9 % (0.1-2.0); Eosinophils # 0.1 K/mm3 (0.0-0.4); Hemoglobin 13.4 g/dL (12.2-16.2); Lymphocytes # 0.7 K/mm3 (0.7-4.5); Mean Corpuscular HGB Conc 34.4 g/dL (31.8-35.4); Mean Corpuscular Hemoglobin 32.9 pg (27.0-31.2); Mean Corpuscular Volume 95.6 fl (81-99); Mean Platelet Volume 7.2 fl (7.4-10.4); Monocytes # 0.2 K/mm3 (0.1-1.0); Monocytes % 7.3 % (1.7-9.3); Neutrophils # 1.5 K/mm3 (1.8-7.8); Neutrophils % 59.7 % (37.0-80.0); Platelet Count 92 K/mm3 (142-424); Red Blood Count 4.08 M/mm3 (4.20-5.40); Red Cell Distribution Width 14.6 % (11.5-17.5); White Blood Count 2.4 K/mm3 (4.8-10.8)
[2024-02-18 18:48] LABS: Alanine Aminotransferase 30 U/L (12-78); Albumin Level 3.5 g/dl (3.5-5.0); Albumin/Globulin Ratio 1.1 (1.1-1.8); Alkaline Phosphatase 61 U/L (38-126); Anion Gap 5.5 mEq/L (5-15); Aspartate Amino Transferase 61 U/L (14-36); Blood Urea Nitrogen 9 mg/dl (7-17); Calcium 9.1 mg/dl (8.4-10.2); Carbon Dioxide 27 mmol/L (22.0-30.0); Chloride 112 mmol/L (98-107); Creatinine Clearance Estimated 59 mL/min (50-200); Estimated Glomerular Filt Rate 75 ml/min (>60); GFR (African American) 91 ML/MIN (>60); Globulin 3.3 g/dL (1.3-3.2); Glucose 128 mg/dl (74-100); Potassium 3.5 mmoL/L (3.5-5.1); Sodium 141 mmol/L (136-145); Total Protein,Serum 6.8 g/dl (6.3-8.2)
--- NOTE | 2024-02-18 18:55 | ED_ITS ---
Discharge Plan Disposition Patient Disposition: Home, Self-Care Condition: Good Prescriptions Prescriptions: No Action levofloxacin 750 mg tablet 750 mg PO DAILY 7 Days Qty: 7 0RF amitriptyline 50 mg Tablet 50 mg PO HS carvedilol 3.125 mg Tablet 3.125 mg PO BID levothyroxine 100 mcg Tablet 100 mcg PO AM pantoprazole 40 mg Tablet,Delayed Release (Dr/Ec) 40 mg PO DAILY duloxetine 30 mg Capsule,Delayed Release(Dr/Ec) 30 mg PO DAILY melatonin 5 mg tablet 5 mg PO HS oxcarbazepine 300 mg tablet 300 mg PO BID amlodipine 5 mg tablet 5 mg PO HS pyridoxine (vitamin B6) 50 mg tablet 50 mg PO DAILY acetaminophen 325 mg Tablet 325 mg PO QID PRN (Reason: Pain) cyclobenzaprine 5 mg Tablet 5 mg PO TID PRN (Reason: Muscle Pain ) ferrous sulfate 324 mg (65 mg iron) tablet,delayed release (DR/EC) 324 mg PO DAILY Rx Instructions: take 1 tab every other day albuterol sulfate 90 mcg/actuation HFA aerosol inhaler 1 puff inhalation Q6H PRN (Reason: Shortness Of Breath) Patient Comments: INHALE 1 PUFF BY MOUTH EVERY 6 HOURS NEEDED may keep AT bedside (shortness of breath) hydroxyzine pamoate 25 mg Capsule 25 mg PO QID PRN (Reason: Anxiety) Xifaxan 550 mg Tablet 550 mg PO BID 30 Days Qty: 60 2RF lactulose 20 gram/30 mL Solution 20 g PO BID 30 Days Qty: 1800 0RF promethazine 25 mg suppository 25 mg OR Q6H PRN (Reason: sedation) Qty: 12 0RF prednisone 50 mg tablet 50 mg PO DAILY 5 Days Qty: 5 0RF Referrals Follow up/Referrals: Raul Hernandez APRN [Primary Care Provider] - See instructions Activity Restrictions/Add. Instructions Additional Instructions/Restrictions: Follow-up with your PCP within 48 hours for further evaluation of the lymph nodes found on your CAT scan and your belly. It is not an emergency but needs to be evaluated further. Follow-up with your PCP if no improvement or worsening signs or symptoms as needed. Also recommend adjustment to your anxiety medications as you benefited tremendously in the emergency department with our interventions. Clinical Impressions Clinical Impression: Dyspnea Qualifiers: Dyspnea type: unspecified Qualified Code(s): R06.00 - Dyspnea, unspecified Instructions Patient Instructions: DI for Anxiety -- Adult, DI for Shortness of Breath Print Language Print Language: Guamanian Discharge ED Provider: Micheal Leon General Adult HPI <NADEEN Galvin - Last Filed: 02/18/24 22:20> General Chief complaint: Shortness of Breath/Dyspnea Stated complaint: SHORTNESS OF BREATH Time Seen by Provider: 02/18/24 18:50 Mode of Arrival: EMS Source of Information: Patient and EMS Limitations: No Limitations Description of Symptoms (Recalled from ER Triage Doc. by RN): pt brought in by [facility] for shortness of breath and tremors, states it started around 5pm, pt isn't able to answer any other questions, denies any recent illness History of Present Illness HPI narrative: Patient presents for dyspnea. Patient reports that around 5 PM she began having dyspnea . She is unable to elaborate further but she is able to communicate without breathlessness. She denies chest pain fever chills hemoptysis hematochezia melena nausea vomiting diarrhea. Patient also reports that she feels shaky and having tremors . Related Data Home Medications ?Medication ?Instructions ?Recorded ?Confirmed amitriptyline 50 mg tablet 50 mg PO HS 05/02/22 07/18/23 carvedilol 3.125 mg tablet 3.125 mg PO BID 05/02/22 07/18/23 duloxetine 30 mg capsule,delayed 30 mg PO DAILY 05/02/22 07/18/23 release levothyroxine 100 mcg tablet 100 mcg PO AM 05/02/22 07/18/23 pantoprazole 40 mg tablet,delayed 40 mg PO DAILY 05/02/22 07/18/23 release melatonin 5 mg tablet 5 mg PO HS 05/03/22 07/18/23 oxcarbazepine 300 mg tablet 300 mg PO BID 02/20/23 07/18/23 amlodipine 5 mg tablet 5 mg PO HS 02/21/23 07/18/23 pyridoxine (vitamin B6) 50 mg 50 mg PO DAILY 02/21/23 07/18/23 tablet acetaminophen 325 mg tablet 325 mg PO QID PRN Pain 05/14/23 07/18/23 cyclobenzaprine 5 mg tablet 5 mg PO TID PRN Muscle Pain 05/14/23 07/18/23 ferrous sulfate 324 mg (65 mg 324 mg PO DAILY 05/14/23 07/19/23 iron) tablet,delayed release albuterol sulfate 90 mcg/actuation 1 puff inhalation Q6H PRN 07/18/23 07/18/23 aerosol inhaler Shortness Of Breath hydroxyzine pamoate 25 mg capsule 25 mg PO QID PRN Anxiety 07/19/23 07/19/23 Previous Rx's ?Medication ?Instructions ?Recorded lactulose 20 gram/30 mL oral 20 g (30 mL) PO BID 30 days #1,800 07/20/23 solution mL rifaximin 550 mg tablet (Xifaxan) 550 mg PO BID 30 days #60 tabs 07/20/23 levofloxacin 750 mg tablet 750 mg PO DAILY 7 days #7 tabs 08/25/23 prednisone 50 mg tablet 50 mg PO DAILY 5 days #5 tabs 01/06/24 promethazine 25 mg rectal 25 mg OR Q6H PRN sedation #12 ea 01/06/24 suppository Allergies Allergy/AdvReac Type Severity Reaction Status Date / Time amoxicillin [From Augmentin] Allergy Verified 07/18/23 16:29 clavulanic acid Allergy Verified 07/18/23 16:29 [From Augmentin] oxycodone Allergy Verified 07/18/23 16:29 [facility] <NADEEN Galvin - Last Filed: 02/18/24 22:20> [facility] Disclaimer: The information contained in this section may have been updated after the patient was seen, as this information can be updated by other users. Medical History SIRS (systemic inflammatory response syndrome) Acute hepatic encephalopathy Bipolar 1 disorder Metabolic encephalopathy Respiratory failure Cellulitis Fall Hypothyroidism Hypertension UTI (urinary tract infection) Encephalopathy Cognitive impairment Murmur, heart Cirrhosis of liver Obstructive sleep apnea Hypothyroid Anxiety Surgical History H/O section H/O hernia repair Hx of appendectomy Family History Other No significant family history Social History Smoking Status: Never smoker alcohol intake: never current occupational status: disabled Travel in the last 8 weeks: None Other Medical History Have you received the Flu Vaccine for this season: No Have you received the Pneumonia Vaccine: No <NADEEN Galvin - Last Filed: 02/18/24 22:20> ROS Obtained: Yes Systems reviewed as appropriate & no additional complaints except as documented Physical Exam <NADEEN Galvin - Last Filed: 02/18/24 22:20> General General appearance: alert, in no apparent distress and anxious Respiratory Respiratory exam: Present normal lung sounds bilaterally; Absent respiratory distress, wheezes, stridor or accessory muscle use Cardiovascular Cardiovascular exam: Present regular rate, normal rhythm, normal heart sounds, +S1 and +S2 Neurological Exam Neurological exam: Present alert, oriented X3, CN II-XII intact and normal gait; Absent motor sensory deficit Psychiatric Psychiatric exam: Present anxious Medical Decision Making <NADEEN Galvin - Last Filed: 02/18/24 22:20> Medical Records Medical records reviewed: Yes I reviewed the patient's medical records. Screening: Per USPSTF and CDC recommendations, given the prevalence of disease in our region, it is our hospital?s policy to screen for HIV and viral Hepatitis for all patients aged 18 and over and those with ongoing risk factors. Darrian Inquiry Pt receiving controlled substance: No Vital Signs: 02/18/24 18:28 02/18/24 19:45 02/18/24 20:00 Temperature 98.0 F Temperature Source Oral Pulse Rate 73 74 Pulse Rate [Left Radial] 73 Respiratory Rate 16 13 20 Blood Pressure 145/73 H 114/72 Blood Pressure [Right Arm] 142/69 H Blood Pressure Mean [Right Arm] 93 Blood Pressure Source Blood Pressure Source [Right Arm] Automatic Cuff Blood Pressure Position Blood Pressure Position [Right Arm] Sitting 02 Sat by Pulse Oximetry 96 96 95 Oxygen Delivery Method Room Air Room Air 02/18/24 20:30 02/18/24 21:01 02/18/24 21:31 Temperature Temperature Source Pulse Rate 66 69 68 Pulse Rate [Left Radial] Respiratory Rate 17 20 19 Blood Pressure 112/72 138/71 144/75 H Blood Pressure [Right Arm] Blood Pressure Mean [Right Arm] Blood Pressure Source Blood Pressure Source [Right Arm] Blood Pressure Position Blood Pressure Position [Right Arm] 02 Sat by Pulse Oximetry 96 94 L 92 L Oxygen Delivery Method 02/18/24 21:47 02/18/24 22:01 Temperature 97.9 F Temperature Source Oral Pulse Rate 68 68 Pulse Rate [Left Radial] Respiratory Rate 18 19 Blood Pressure 116/72 141/85 H Blood Pressure [Right Arm] Blood Pressure Mean [Right Arm] Blood Pressure Source Automatic Cuff Blood Pressure Source [Right Arm] Blood Pressure Position Supine Blood Pressure Position [Right Arm] 02 Sat by Pulse Oximetry 94 L Oxygen Delivery Method Room Air Lab Data Lab results reviewed: Yes I reviewed the patient's lab results. Lab Results 02/18/24 18:30: WBC 2.4 L, RBC 4.08 L, Hgb 13.4, Hct 39.0, MCV 95.6, MCH 32.9 H, MCHC 34.4, RDW 14.6, Plt Count 92 L, MPV 7.2 L, Neut % (Auto) 59.7, Lymph % (Auto) 29.0, [place] % (Auto) 7.3, Eos % (Auto) 3.0, Baso % (Auto) 0.9, Neut # (Auto) 1.5 L, Lymph # (Auto) 0.7, [place] # (Auto) 0.2, Eos # (Auto) 0.1, Baso # (Auto) 0.0, D-Dimer 0.56 H, Sodium 141, Potassium 3.5, Chloride 112 H, Carbon Dioxide 27, Anion Gap 5.5, BUN 9, Creatinine 0.80, Estimated Creat Clear 59, Estimated GFR 75, Est GFR ( Amer) 91, Glucose 128 H, Calcium 9.1, Total Bilirubin 1.0, AST 61 H, ALT 30, Alkaline Phosphatase 61, Troponin I < 0.01, Total Protein 6.8, Albumin 3.5, Globulin 3.3 H, Albumin/Globulin Ratio 1.1 02/18/24 19:25: VBG pH 7.42 H, VBG pCO2 39.7, VBG pO2 69.4 H, VBG HCO3 25.1, VBG Total CO2 26.3, VBG O2 Saturation 94.1 H, VBG Base Excess 0.6, VBG Lactic Acid 1.3 02/18/24 18:30 02/18/24 18:30 Orders (Tests/Meds): ED MEDICATIONS Discontinued Medications Generic Name Dose Route Start Last Admin Trade Name Freq PRN Reason Stop Dose Admin Albuterol/Ipratropium 9 ml 02/18/24 19:11 Ipratropium/Albuterol 3 Ml Neb IH 02/18/24 19:12 ONCE ONE Dexamethasone Sodium Phosphate 10 mg 02/18/24 19:11 02/18/24 19:22 Dexamethasone 4mg/Ml 5ml Mdv IV 02/18/24 19:12 10 mg ONCE ONE Administration Iopamidol 70 ml 02/18/24 20:53 02/18/24 20:58 Iopamidol-370 (76%);100ml Bottle IV 02/18/24 20:54 70 ml ONCE ONE Administration Ketorolac Tromethamine 15 mg 02/18/24 19:11 02/18/24 19:22 Ketorolac 30mg/Ml Vial IV 02/18/24 19:12 15 mg ONCE ONE Administration Lorazepam 0.5 mg 02/18/24 19:11 02/18/24 19:23 Lorazepam 2mg/Ml Vial IV 02/18/24 19:12 0.5 mg ONCE ONE Administration Sodium Chloride 10 ml 02/18/24 19:11 Sodium Chloride 0.9% 10ml Vial IV 03/19/24 19:10 NEEDED PRN to Dilute Lorazepam inj Sodium Chloride 50 ml 02/18/24 20:53 02/18/24 20:57 0.9 % Sodium Chloride 50 Ml Vial IV 02/18/24 20:54 50 ml ONCE ONE Administration Sodium Chloride 10 ml 02/18/24 20:53 02/18/24 20:58 Sodium Chloride 0.9% 10ml Syr (Rad Only) IV 03/19/24 20:52 10 ml NEEDED PRN Administration Maintain IV Site ORDERS Category Date Time Status CT angio chest PE protocol Stat Cat Scan 02/18/24 20:33 Completed XR chest portable Stat Exams 02/18/24 19:05 Completed Complete Blood Count Auto Diff Stat Lab 02/18/24 18:30 Completed Comprehensive Metabolic Panel Stat Lab 02/18/24 18:30 Completed D-Dimer Stat Lab 02/18/24 18:30 Completed Trop T [Troponin I] Stat Lab 02/18/24 18:30 Completed VBG [Venous Blood Gas] Stat RT 02/18/24 19:25 Completed Medical Decision Narrative: In summary patient is a 53-year-old female who presents to the emergency department for evaluation of dyspnea. Patient is normotensive on arrival at 142/69 heart rate is 73 respiratory rate is 16 O2 sat is 96% on room air upon arrival, afebrile. Physical exam is remarkable for an anxious appearing 53-year-old female with a BMI of 43, breath sounds are clear and equal bilaterally to the bases. There is no adventitious sounds. There is no chest pain on palpation. Heart sounds are normal. Patient is in normal sinus rhythm on the bedside monitor. O2 sat is greater than 94% on room air. Patient is talking without breathlessness has no retractions. She does however appear to be anxious. Differential diagnosis includes panic attack versus ACS versus PE etc. Initial workup will be conducted with hematologic labs CT scan PE protocol after having a slightly elevated D-dimer, plain film chest x-ray initially. Initial interventions include DuoNeb Decadron Ativan Tylenol. Initial workup reviewed by me shows that her VBH shows normal pH with no hypercarbia or hypoxia, hematologic labs are nonactionable, plain film chest x-ray shows no acute processes, CT PE protocol on my informal interpretation shows no evidence of thrombus or intrathoracic abnormality however, incidentally found celiac axis lymph nodes per radiology. Upon repeat evaluation patient had complete resolution of her dyspnea after initial intervention. Given this patient is appropriate for discharge with referral to her PCP for further evaluation on a nonemergent basis of her lymphadenopathy in her abdomen, recommendation for reevaluation by her mental health provider regarding her anxiety medications. <Micheal Leon MD - Last Filed: 02/18/24 22:52> Vital Signs: 02/18/24 18:28 02/18/24 19:45 02/18/24 20:00 Temperature 98.0 F Temperature Source Oral Pulse Rate 73 74 Pulse Rate [Left Radial] 73 Respiratory Rate 16 13 20 Blood Pressure 145/73 H 114/72 Blood Pressure [Right Arm] 142/69 H Blood Pressure Mean [Right Arm] 93 Blood Pressure Source Blood Pressure Source [Right Arm] Automatic Cuff Blood Pressure Position Blood Pressure Position [Right Arm] Sitting 02 Sat by Pulse Oximetry 96 96 95 Oxygen Delivery Method Room Air Room Air 02/18/24 20:30 02/18/24 21:01 02/18/24 21:31 Temperature Temperature Source Pulse Rate 66 69 68 Pulse Rate [Left Radial] Respiratory Rate 17 20 19 Blood Pressure 112/72 138/71 144/75 H Blood Pressure [Right Arm] Blood Pressure Mean [Right Arm] Blood Pressure Source Blood Pressure Source [Right Arm] Blood Pressure Position Blood Pressure Position [Right Arm] 02 Sat by Pulse Oximetry 96 94 L 92 L Oxygen Delivery Method 02/18/24 21:47 02/18/24 22:01 Temperature 97.9 F Temperature Source Oral Pulse Rate 68 68 Pulse Rate [Left Radial] Respiratory Rate 18 19 Blood Pressure 116/72 141/85 H Blood Pressure [Right Arm] Blood Pressure Mean [Right Arm] Blood Pressure Source Automatic Cuff Blood Pressure Source [Right Arm] Blood Pressure Position Supine Blood Pressure Position [Right Arm] 02 Sat by Pulse Oximetry 94 L Oxygen Delivery Method Room Air Lab Data Lab Results 02/18/24 18:30: WBC 2.4 L, RBC 4.08 L, Hgb 13.4, Hct 39.0, MCV 95.6, MCH 32.9 H, MCHC 34.4, RDW 14.6, Plt Count 92 L, MPV 7.2 L, Neut % (Auto) 59.7, Lymph % (Auto) 29.0, [place] % (Auto) 7.3, Eos % (Auto) 3.0, Baso % (Auto) 0.9, Neut # (Auto) 1.5 L, Lymph # (Auto) 0.7, [place] # (Auto) 0.2, Eos # (Auto) 0.1, Baso # (Auto) 0.0, D-Dimer 0.56 H, Sodium 141, Potassium 3.5, Chloride 112 H, Carbon Dioxide 27, Anion Gap 5.5, BUN 9, Creatinine 0.80, Estimated Creat Clear 59, Estimated GFR 75, Est GFR ( Amer) 91, Glucose 128 H, Calcium 9.1, Total Bilirubin 1.0, AST 61 H, ALT 30, Alkaline Phosphatase 61, Troponin I < 0.01, Total Protein 6.8, Albumin 3.5, Globulin 3.3 H, Albumin/Globulin Ratio 1.1 02/18/24 19:25: VBG pH 7.42 H, VBG pCO2 39.7, VBG pO2 69.4 H, VBG HCO3 25.1, VBG Total CO2 26.3, VBG O2 Saturation 94.1 H, VBG Base Excess 0.6, VBG Lactic Acid 1.3 Orders (Tests/Meds): ED MEDICATIONS Discontinued Medications Generic Name Dose Route Start Last Admin Trade Name Freq PRN Reason Stop Dose Admin Albuterol/Ipratropium 9 ml 02/18/24 19:11 Ipratropium/Albuterol 3 Ml Neb IH 02/18/24 19:12 ONCE ONE Dexamethasone Sodium Phosphate 10 mg 02/18/24 19:11 02/18/24 19:22 Dexamethasone 4mg/Ml 5ml Mdv IV 02/18/24 19:12 10 mg ONCE ONE Administration Iopamidol 70 ml 02/18/24 20:53 02/18/24 20:58 Iopamidol-370 (76%);100ml Bottle IV 02/18/24 20:54 70 ml ONCE ONE Administration Ketorolac Tromethamine 15 mg 02/18/24 19:11 02/18/24 19:22 Ketorolac 30mg/Ml Vial IV 02/18/24 19:12 15 mg ONCE ONE Administration Lorazepam 0.5 mg 02/18/24 19:11 02/18/24 19:23 Lorazepam 2mg/Ml Vial IV 02/18/24 19:12 0.5 mg ONCE ONE Administration Sodium Chloride 10 ml 02/18/24 19:11 Sodium Chloride 0.9% 10ml Vial IV 03/19/24 19:10 NEEDED PRN to Dilute Lorazepam inj Sodium Chloride 50 ml 02/18/24 20:53 02/18/24 20:57 0.9 % Sodium Chloride 50 Ml Vial IV 02/18/24 20:54 50 ml ONCE ONE Administration Sodium Chloride 10 ml 02/18/24 20:53 02/18/24 20:58 Sodium Chloride 0.9% 10ml Syr (Rad Only) IV 03/19/24 20:52 10 ml NEEDED PRN Administration Maintain IV Site ORDERS Category Date Time Status CT angio chest PE protocol Stat Cat Scan 02/18/24 20:33 Completed XR chest portable Stat Exams 02/18/24 19:05 Completed Complete Blood Count Auto Diff Stat Lab 02/18/24 18:30 Completed Comprehensive Metabolic Panel Stat Lab 02/18/24 18:30 Completed D-Dimer Stat Lab 02/18/24 18:30 Completed Trop T [Troponin I] Stat Lab 02/18/24 18:30 Completed VBG [Venous Blood Gas] Stat RT 02/18/24 19:25 Completed ECG Data Tracing #1: I reviewed this ECG and interpreted as documented below: (Sinus rhythm 73 beats a minute no ST or T wave changes concerning for acute ischemia. OR, QRS, QT intervals within normal limits.) Medical Decision Narrative: In summary patient is a 53-year-old female who presents to the emergency department for evaluation of dyspnea. Patient is normotensive on arrival at 142/69 heart rate is 73 respiratory rate is 16 O2 sat is 96% on room air upon arrival, afebrile. Physical exam is remarkable for an anxious appearing 53-year-old female with a BMI of 43, breath sounds are clear and equal bilaterally to the bases. There is no adventitious sounds. There is no chest pain on palpation. Heart sounds are normal. Patient is in normal sinus rhythm on the bedside monitor. O2 sat is greater than 94% on room air. Patient is talking without breathlessness has no retractions. She does however appear to be anxious. Differential diagnosis includes panic attack versus ACS versus PE etc. Initial workup will be conducted with hematologic labs CT scan PE protocol after having a slightly elevated D-dimer, plain film chest x-ray initially. Initial interventions include DuoNeb Decadron Ativan Tylenol. Initial workup reviewed by me shows that her VBH shows normal pH with no hypercarbia or hypoxia, hematologic labs are nonactionable, plain film chest x-ray shows no acute processes, CT PE protocol on my informal interpretation shows no evidence of thrombus or intrathoracic abnormality however, incidentally found celiac axis lymph nodes per radiology. Upon repeat evaluation patient had complete resolution of her dyspnea after initial intervention. Given this patient is appropriate for discharge with referral to her PCP for further evaluation on a nonemergent basis of her lymphadenopathy in her abdomen, recommendation for reevaluation by her mental health provider regarding her anxiety medications. I was consulted by the [facility], and we discussed the complexity of the problems being addressed. I approved the treatment and management plan for this patient's care in the Emergency Department, thus performing a substantive portion of the medical decision making. Micheal Leon MD Critical Care <NADEEN Galvin - Last Filed: 02/18/24 22:20> Critical Care Time Critical Care Time: No
[2024-02-18 19:00] LABS: Troponin I < 0.01 ng/ml (0.00-0.034)
--- NOTE | 2024-02-18 19:05 | XR_ITS ---
PROCEDURE INFORMATION: Exam: XR Chest Exam date and time: 02/18/2024 7:34 PM Age: 53 years old Clinical indication: Dyspnea TECHNIQUE: Imaging protocol: Radiologic exam of the chest. Views: 1 view. COMPARISON: CT ANGIO CHEST PE PROTOCOL 07/18/2023 5:22 PM FINDINGS: Lungs: Unremarkable. No consolidation. Pleural spaces: Unremarkable. No pleural effusion. No pneumothorax. Heart/Mediastinum: Unremarkable. No cardiomegaly. Bones/joints: Unremarkable. IMPRESSION: No acute findings.
[2024-02-18] MEDS: DEXAMETHASONE 4MG/ML 5ML MDV 10 MG IV (19:22)
[2024-02-18] MEDS: KETOROLAC 30MG/ML VIAL 15 MG IV (19:22)
[2024-02-18] MEDS: LORazepam 2MG/ML VIAL 0.5 MG IV (19:23)
--- NOTE | 2024-02-18 19:26 | PC.NURSE ---
RT called to notify of VBG and new specimen sent to lab
[2024-02-18 19:30] LABS: Lactate Venous 1.3 mmol/L (0.4-2.0); VBG Base Excess 0.6 mmol/L (-2.4-2.3); VBG HCO3 25.1 mmol/L (23-30); VBG Oxygen Saturation 94.1 % (50-70); VBG PCO2 39.7 mmol/L (35-51); VBG PH 7.42 mmol/L (7.31-7.41); VBG PO2 69.4 mmol/L (28-40); VBG Total CO2 26.3 mmol/L (23-27)
[2024-02-18 19:33] LABS: D-Dimer 0.56 ug/mL (0.0-0.5)
--- NOTE | 2024-02-18 20:33 | CT_ITS ---
PROCEDURE INFORMATION: Exam: CTA Chest With Contrast Exam date and time: 02/18/2024 8:54 PM Age: 53 years old Clinical indication: Shortness of breath; Additional info: Elevated dimer, SOA TECHNIQUE: Imaging protocol: Computed tomographic angiography of the chest with contrast. Exam focused on the arteries. 3D rendering (Not supervised by radiologist): MIP and/or 3D reconstructed images were created by the technologist. Radiation optimization: All CT scans at this facility use at least one of these dose optimization techniques: automated exposure control; mA and/or kV adjustment per patient size (includes targeted exams where dose is matched to clinical indication); or iterative reconstruction. Contrast material: ISOVUE; Contrast volume: 70 ml; Contrast route: INTRAVENOUS (IV); COMPARISON: CT ANGIO CHEST PE PROTOCOL 07/18/2023 5:22 PM FINDINGS: Pulmonary arteries: No evidence of pulmonary embolus to the segmental level. Aorta: No aneurysm of the aorta. No dissection of the aorta. Lungs: Unremarkable. No consolidation. No masses. Pleural spaces: Unremarkable. No pneumothorax. No pleural effusion. Heart: Unremarkable. No cardiomegaly. No pericardial effusion. Lymph nodes: Lymph nodes around the celiac axis.. Recommend dedicated CT abdomen for further evaluation. Liver: Lobulated liver consistent with cirrhosis. Gallbladder and biliary ducts: Cholecystectomy Spleen: Splenomegaly 17 cm.. Bones/joints: Unremarkable. No acute fracture. Soft tissues: Unremarkable. IMPRESSION: 1. No evidence of pulmonary embolus to the segmental level. 2. No aneurysm of the aorta. 3. No dissection of the aorta. 4. Lobulated liver consistent with cirrhosis. 5. Splenomegaly 17 cm.. 6. Lymph nodes around the celiac axis.. Recommend dedicated CT abdomen for further evaluation.
[2024-02-18] MEDS: 0.9 % SODIUM CHLORIDE 50 ML VIAL IV (20:57)
[2024-02-18] MEDS: SODIUM CHLORIDE 0.9% 10ML SYR (RAD ONLY) 10 ML IV (20:58)
[2024-02-18] MEDS: IOPAMIDOL-370 (76%);100ML BOTTLE 70 ML IV (20:58)
--- NOTE | 2024-02-18 21:48 | PC.NURSE ---
Called to give report to Duncan Houser, could not reach anyone.
--- NOTE | 2024-02-18 21:51 | PC.NURSE ---
Attempted to call eduarda calderon a second time, could not get anyone to answer
--- NOTE | 2024-02-18 22:01 | PC.NURSE ---
call placed to [place] they are going to try and reach someone at [facility] to come and worm picker patient
== END 2024-02-18 22:21 | disposition home or self-care (01) ==
PROVIDERS: Physician Assistant; Emergency Provider Emergency Medicine; PCP Nurse Practitioner Acute Care
DX: R06.00 Dyspnea, unspecified (principal); R06.02 Shortness of breath; G25.0 Essential tremor
CPT/HCPCS: 71045; 71275; 80053; 82803; 84484; 85025; 85378; 93005; 96374; 96375; 99285; J1100; J1885; J2060; Q9967

== ENCOUNTER 2024-03-20 09:33 | Emergency (ER) | payer BC, OTHER, SELFPAY ==
[2024-03-20] VITALS (8 sets, daily range): BP systolic 112–153; BP diastolic 55–76; PULSE 62–82; RESP 16–18; TEMP 36.5–36.7; O2SAT 93–96; BMI 37.8
--- NOTE | 2024-03-20 09:33 | PC.NURSE ---
FSBS is 177 at this time.
--- OUTSIDE RECORDS SUMMARY | 2024-03-20 09:58 | XMS_ITS | Encounter Summary ---
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 [address] [place], [place] [id number] Provider, Unknown Central Patient Navigator Outreach (Appointment Needed) Social History Tobacco Use Types Packs/Day Years Used Date Smoking Tobacco: Never Assessed Comments Unknown Sex and Gender Information Value Date Recorded Sex Assigned at Not on file Legal Sex Female 4:23 PM EDT Gender Identity Not on file Sexual Orientation Not on file documented as of this encounter Progress Notes * Sarah Marcos - 10/25/2022 3:59 PM EDT Patient Outreach: Appointment Needed Attempt Count: 1st Care Gaps Addressed marketing communications leader: Annual Wellness Visit and Appointment Outcome: rang 3x then busy documented in this encounter Plan of Treatment Not on file documented as of this encounter Visit Diagnoses Not on filedocumented in this encounter
--- OUTSIDE RECORDS SUMMARY | 2024-03-20 09:58 | XMS_ITS | Referral Summary ---
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 Utilization audit completed by [place], Compliance Review on 11/21/2022. Problem Noted Date Diagnosed Date MDD (major depressive disorder), recurrent episo de, mild 01/15/2024 Anxious personality disorder 10/22/2023 Mood disorder 06/06/2022 Hypothyroidism, unspecified 01/26/2022 MCI (mild cognitive impairment) 01/26/2022 FERNANDEZ (obstructive sleep apnea) 01/26/2022 Cirrhosis 01/26/2022 History of cardiac murmur 01/26/2022 Mood insomnia 01/26/2022 Resolved Problems Problem Noted Date Diagnosed Date Resolved Date History of recent fall 05/21/202310/21 Daytime sleepiness 05/21/2023 Socially inappropriate behavior 06/06/2022 10/22/2023 Agitation 06/06/2022 10/22/2023 Anxiety disorder, unspecified 01/26/2022 10/22/2023 Medication monitoring encounter 01/26/2022 10/22/2023 Adjustment disorder with mix ed anxiety and depressed mood 01/26/2022 10/22/2023 Social History Tobacco Use Types Packs/Day Years Used Date Smoking Tobacco: Never Assessed Comments Unknown Sex and Gender Information Value Date Recorded Sex Assigned at Not on file Legal Sex Female 4:23 PM EDT Gender Identity Not on file Sexual Orientation Not on file Plan of Treatment Not on file Insurance [employer]THEM PPO [facility] MEDICAID CARVE OUT [facility] COMMUNITY PLAN [place] MDR
--- OUTSIDE RECORDS SUMMARY | 2024-03-20 09:58 | XMS_ITS | Clinical Summary ---
Author Organization 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 Phone Unavailable Primary Care Provider [...] Orientation Not on file Plan of Treatment Health Maintenance Due Date Last Done Comments Annual Wellness Exam 1973 Pneumococcal Vaccine 0-64 (1 of 2 - PCV) 1977 DTaP/TDaP/Td (1 - Tdap) 1990 Hepatitis A Vaccine (1 of 2 - Risk 2-dose series) 03/01 Hepatitis B Vaccine (1 of 3 - 19+ 3-dose series) 03/24 Cervical Cancer Screening 1992 Pap Smear 1992 HPV/Pap Cotest 2001 Breast Cancer Screening 2011 Cologuard 2016 Colon Cancer Screening 2016 Colonoscopy 2016 FIT 2016 Sigmoidoscopy 2016 Virtual Colonography 2016 Zoster (1 of 2) 2021 COVID-19 Vaccine ( - season) 2023 Influenza Vaccine (#1) [address] [place], [place] [address]O [facility] MEDICAID CARVE OUT [facility] COMMUNITY PLAN [place] MDR
--- NOTE | 2024-03-20 10:00 | CT_ITS ---
PROCEDURE INFORMATION: Exam: CT Angiography Head With Contrast Exam date and time: 03/20/2024 10:47 AM Age: 53 years old Clinical indication: Other: Intractible vertigo TECHNIQUE: Imaging protocol: Computed tomographic angiography of the head with contrast. 3D rendering (Not supervised by radiologist): MIP and/or 3D reconstructed images were created by the technologist. Radiation optimization: All CT scans at this facility use at least one of these dose optimization techniques: automated exposure control; mA and/or kV adjustment per patient size (includes targeted exams where dose is matched to clinical indication); or iterative reconstruction. Contrast material: ISOVUE 370; Contrast volume: 80 ml; Contrast route: INTRAVENOUS (IV); COMPARISON: CT HEAD/BRAIN WO CON 03/20/2024 10:43 AM FINDINGS: Limitations: Motion artifact does moderately limit the sensitivity of this examination. ANTERIOR CIRCULATION: Right internal carotid artery: No definite occlusion. Right middle cerebral artery: No definite occlusion. Right anterior cerebral artery: No definite occlusion. Left internal carotid artery: No definite occlusion. Left middle cerebral artery: No definite occlusion. Left anterior cerebral artery: No definite occlusion. POSTERIOR CIRCULATION: Right vertebral artery: No definite occlusion. Left vertebral artery: No definite occlusion. Basilar artery: No definite occlusion. Right posterior cerebral artery: No definite occlusion. Left posterior cerebral artery: No definite occlusion. Brain: No definite mass, mass effect, or midline shift. Cerebral ventricles: Normal. No ventriculomegaly. IMPRESSION: Motion degraded exam. No definite large vessel occlusion.
--- NOTE | 2024-03-20 10:00 | CT_ITS ---
PROCEDURE INFORMATION: Exam: CT Angiography Neck With Contrast Exam date and time: 03/20/2024 10:47 AM Age: 53 years old Clinical indication: Other: Intractable vertigo; Additional info: Intractible vertigo TECHNIQUE: Imaging protocol: Computed tomography angiography of the neck with contrast. 3D rendering (Not supervised by radiologist): MIP and/or 3D reconstructed images were created by the technologist. Radiation optimization: All CT scans at this facility use at least one of these dose optimization techniques: automated exposure control; mA and/or kV adjustment per patient size (includes targeted exams where dose is matched to clinical indication); or iterative reconstruction. Contrast material: ISOVUE 370; Contrast volume: 80 ml; Contrast route: INTRAVENOUS (IV); COMPARISON: CT SOFT TISSUE NECK W CON 07/18/2023 5:20 PM FINDINGS: Limitations: Motion artifact does moderately limit the sensitivity of this examination. Right common carotid artery: No definite occlusion. Right internal carotid artery: No definite occlusion. Right external carotid artery: No definite occlusion. Left common carotid artery: No definite occlusion. Left internal carotid artery: No definite occlusion. Left external carotid artery: No definite occlusion. Right vertebral artery: No definite occlusion. Left vertebral artery: No definite occlusion. Bones/joints: No acute fracture. Soft tissues: Normal. No significant soft tissue swelling. IMPRESSION: 1. Motion degraded exam 2. No definite large vessel occlusion REFERENCES: NASCET CRITERIA. The degree of stenosis in the cervical segment of the internal carotid artery is based on NASCET criteria. Normal is no stenosis. Mild is less than 50% stenosis. Moderate is 50-69% stenosis. Severe is 70% to 99% stenosis. Total occlusion is no detectable patent lumen.
--- NOTE | 2024-03-20 10:00 | CT_ITS ---
PROCEDURE INFORMATION: Exam: CT Head Without Contrast Exam date and time: 03/20/2024 10:43 AM Age: 53 years old Clinical indication: Other: Intractible vertigo TECHNIQUE: Imaging protocol: Computed tomography of the head without contrast. Radiation optimization: All CT scans at this facility use at least one of these dose optimization techniques: automated exposure control; mA and/or kV adjustment per patient size (includes targeted exams where dose is matched to clinical indication); or iterative reconstruction. COMPARISON: CT HEAD/BRAIN WO CON 06/26/2023 1:44 AM FINDINGS: Brain: No evidence of acute parenchymal hemorrhage, extra-axial collection or local regional mass effect. There are scattered hypodensities in the periventricular and subcortical white matter. The appearance is nonspecific, but most likely represents chronic small vessel disease in a person of this age. Cerebral ventricles: The ventricles, sulci and cisterns are normal in size and configuration. No hydrocephalus or midline structure shift Pituitary gland and sella: Sellar/parasellar structures, orbits and craniocervical junction are unremarkable Paranasal sinuses: Right ostiomeatal unit pattern sinusitis. Mastoid air cells: Visualized mastoid air cells are well aerated. Bones: No calvarial fracture Soft tissues: Unremarkable. IMPRESSION: 1. No acute intracranial abnormality. No calvarial fracture. 2. Right ostiomeatal unit pattern sinusitis.
--- NOTE | 2024-03-20 10:02 | HMH.EDGENADL ---
Discharge Plan Disposition Patient Disposition: Home, Self-Care Prescriptions Prescriptions: New meclizine 25 mg tablet 25 mg PO DAILY PRN (Reason: motion sickness) Qty: 10 0RF No Action levofloxacin 750 mg tablet 750 mg PO DAILY 7 Days Qty: 7 0RF amitriptyline 50 mg Tablet 50 mg PO HS carvedilol 3.125 mg Tablet 3.125 mg PO BID levothyroxine 100 mcg Tablet 100 mcg PO AM pantoprazole 40 mg Tablet,Delayed Release (Dr/Ec) 40 mg PO DAILY duloxetine 30 mg Capsule,Delayed Release(Dr/Ec) 30 mg PO DAILY melatonin 5 mg tablet 5 mg PO HS oxcarbazepine 300 mg tablet 300 mg PO BID amlodipine 5 mg tablet 5 mg PO HS pyridoxine (vitamin B6) 50 mg tablet 50 mg PO DAILY acetaminophen 325 mg Tablet 325 mg PO QID PRN (Reason: Pain) cyclobenzaprine 5 mg Tablet 5 mg PO TID PRN (Reason: Muscle Pain ) ferrous sulfate 324 mg (65 mg iron) tablet,delayed release (DR/EC) 324 mg PO DAILY Rx Instructions: take 1 tab every other day albuterol sulfate 90 mcg/actuation HFA aerosol inhaler 1 puff inhalation Q6H PRN (Reason: Shortness Of Breath) Patient Comments: INHALE 1 PUFF BY MOUTH EVERY 6 HOURS NEEDED may keep AT bedside (shortness of breath) hydroxyzine pamoate 25 mg Capsule 25 mg PO QID PRN (Reason: Anxiety) Xifaxan 550 mg Tablet 550 mg PO BID 30 Days Qty: 60 2RF lactulose 20 gram/30 mL Solution 20 g PO BID 30 Days Qty: 1800 0RF promethazine 25 mg suppository 25 mg AK Q6H PRN (Reason: sedation) Qty: 12 0RF prednisone 50 mg tablet 50 mg PO DAILY 5 Days Qty: 5 0RF Referrals Follow up/Referrals: Raul Hernandez APRN [Primary Care Provider] - See instructions Nikia Man APRN [Nurse Practitioner] - See instructions Activity Restrictions/Add. Instructions Additional Instructions/Restrictions: At this time it was felt you are safe to be discharged home. If new or worsening symptoms please do not hesitate to return the emergency department. Please call and schedule an appointment with ear nose and throat as soon as you are able. Please take your medications as prescribed. Clinical Impressions Clinical Impression: Dizziness Print Language Print Language: Malay Discharge ED Provider: Umesh Harley General Adult HPI General Chief complaint: Dizziness Stated complaint: high BP Time Seen by Provider: 03/20/24 09:40 Mode of Arrival: EMS Source of Information: Patient and EMS Limitations: No Limitations Description of Symptoms (Recalled from ER Triage Doc. 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 History is obtained by patient at bedside. She woke up this morning with dizziness. It is hard for her to describe the dizziness. No falls. No syncope. Feels as if the room is spinning and no particular direction. It is not modifiable with position. No chest pain, no abdominal pain, no speech difficulties, no vision changes, no extremity weakness or sensory changes. No other acute complaints at this time. Related Data Home Medications ?Medication ?Instructions ?Recorded ?Confirmed amitriptyline 50 mg tablet 50 mg PO HS 05/02/22 07/18/23 carvedilol 3.125 mg tablet 3.125 mg PO BID 05/02/22 07/18/23 duloxetine 30 mg capsule,delayed 30 mg PO DAILY 05/02/22 07/18/23 release levothyroxine 100 mcg tablet 100 mcg PO AM 05/02/22 07/18/23 pantoprazole 40 mg tablet,delayed 40 mg PO DAILY 05/02/22 07/18/23 release melatonin 5 mg tablet 5 mg PO HS 05/03/22 07/18/23 oxcarbazepine 300 mg tablet 300 mg PO BID 02/20/23 07/18/23 amlodipine 5 mg tablet 5 mg PO HS 02/21/23 07/18/23 pyridoxine (vitamin B6) 50 mg 50 mg PO DAILY 02/21/23 07/18/23 tablet acetaminophen 325 mg tablet 325 mg PO QID PRN Pain 05/14/23 07/18/23 cyclobenzaprine 5 mg tablet 5 mg PO TID PRN Muscle Pain 05/14/23 07/18/23 ferrous sulfate 324 mg (65 mg 324 mg PO DAILY 05/14/23 07/19/23 iron) tablet,delayed release albuterol sulfate 90 mcg/actuation 1 puff inhalation Q6H PRN 07/18/23 07/18/23 aerosol inhaler Shortness Of Breath hydroxyzine pamoate 25 mg capsule 25 mg PO QID PRN Anxiety 07/19/23 07/19/23 Previous Rx's ?Medication ?Instructions ?Recorded lactulose 20 gram/30 mL oral 20 g (30 mL) PO BID 30 days #1,800 07/20/23 solution mL rifaximin 550 mg tablet (Xifaxan) 550 mg PO BID 30 days #60 tabs 07/20/23 levofloxacin 750 mg tablet 750 mg PO DAILY 7 days #7 tabs 08/25/23 prednisone 50 mg tablet 50 mg PO DAILY 5 days #5 tabs 01/06/24 promethazine 25 mg rectal 25 mg AK Q6H PRN sedation #12 ea 01/06/24 suppository meclizine 25 mg tablet 25 mg PO DAILY PRN motion sickness 03/20/24 #10 tabs Allergies Allergy/AdvReac Type Severity Reaction Status Date / Time amoxicillin (From Augmentin) Allergy Verified 07/18/23 16:29 clavulanic acid (From Allergy Verified 07/18/23 16:29 Augmentin) oxycodone Allergy Verified 07/18/23 16:29 [facility] Disclaimer: The information contained in this section may have been updated after the patient was seen, as this information can be updated by other users. Medical History SIRS (systemic inflammatory response syndrome) Acute hepatic encephalopathy Bipolar 1 disorder Metabolic encephalopathy Respiratory failure Cellulitis Fall Hypothyroidism Hypertension UTI (urinary tract infection) Encephalopathy Cognitive impairment Murmur, heart Cirrhosis of liver Obstructive sleep apnea Hypothyroid Anxiety Surgical History H/O section H/O hernia repair Hx of appendectomy Family History Other No significant family history Social History Smoking Status: Never smoker alcohol intake: never current occupational status: disabled Other Medical History Have you received the Flu Vaccine for this season: No Have you received the Pneumonia Vaccine: No ROS Obtained: Yes Systems reviewed as appropriate & no additional complaints except as documented Physical Exam General General appearance: alert and in no apparent distress Head Head exam: atraumatic and normocephalic Eye Eye exam: Present PERRL and EOMI ENT ENT exam: Present mucous membranes moist Neck Neck exam: Present normal inspection Chest Chest inspection: Present normal inspection and symmetric chest wall rise Respiratory Respiratory exam: Present normal lung sounds bilaterally; Absent respiratory distress Cardiovascular Cardiovascular exam: Present regular rate and normal rhythm Abdominal Exam Abdominal exam: Present soft; Absent tenderness Extremities Exam Extremities exam: Present normal inspection Neurological Exam Neurological exam: Present alert, oriented X3, CN II-XII intact and other ([id number] intact bilaterally); Absent motor sensory deficit Psychiatric Psychiatric exam: Present normal affect Skin Skin exam: Present warm and dry Medical Decision Making Medical Records Screening: Per USPSTF and CDC recommendations, given the prevalence of disease in our region, it is our hospital?s policy to screen for HIV and viral Hepatitis for all patients aged 18 and over and those with ongoing risk factors. Darrian Inquiry Pt receiving controlled substance: No Vital Signs: 03/20/24 09:29 03/20/24 09:30 03/20/24 10:01 Temperature 97.7 F Temperature Source Oral Pulse Rate 77 73 Pulse Rate [Right] 82 Respiratory Rate 18 Blood Pressure 119/64 129/55 L Blood Pressure [Right Arm] 153/73 H Blood Pressure Mean 82 79 Blood Pressure Mean [Right Arm] 99 02 Sat by Pulse Oximetry 96 95 94 L Oxygen Delivery Method Room Air Room Air 03/20/24 10:31 03/20/24 11:30 Temperature Temperature Source Pulse Rate 73 81 Pulse Rate [Right] Respiratory Rate Blood Pressure 147/76 H 142/68 H Blood Pressure [Right Arm] Blood Pressure Mean 99 102 Blood Pressure Mean [Right Arm] 02 Sat by Pulse Oximetry 94 L 94 L Oxygen Delivery Method Room Air Lab Data Lab Results 03/20/24 09:29: WBC 2.5 L, RBC 4.14 L, Hgb 13.8, Hct 40.1, MCV 96.9, MCH 33.4 H, MCHC 34.4, RDW 14.5, Plt Count 88 L, MPV 7.3 L, Neut % (Auto) 60.1, Lymph % (Auto) 27.9, [place] % (Auto) 6.8, Eos % (Auto) 4.5, Baso % (Auto) 0.7, Neut # (Auto) 1.5 L, Lymph # (Auto) 0.7, [place] # (Auto) 0.2, Eos # (Auto) 0.1, Baso # (Auto) 0.0, Sodium 140, Potassium 3.6, Chloride 108 H, Carbon Dioxide 30, Anion Gap 5.6, BUN 8, Creatinine 0.90, Estimated Creat Clear 115, Estimated GFR 66, Est GFR ( Amer) 80, Glucose 171 H, Calcium 8.7, Magnesium 2.1, Total Bilirubin 1.3, AST 56 H, ALT 27, Alkaline Phosphatase 74, Troponin I < 0.01, Total Protein 6.8, Albumin 3.5, Globulin 3.3 H, Albumin/Globulin Ratio 1.1, HIV 1&2 Antibody Rapid Nonreactive 03/20/24 09:29 03/20/24 09:29 Orders (Tests/Meds): ED MEDICATIONS Discontinued Medications Generic Name Dose Route Start Last Admin Trade Name Freq PRN Reason Stop Dose Admin Iopamidol 80 ml 03/20/24 10:55 03/20/24 10:57 Iopamidol-370 (76%);100ml Bottle IV 03/20/24 10:56 80 ml ONCE ONE Administration Meclizine HCl 25 mg 03/20/24 10:00 03/20/24 10:08 Meclizine 25mg Tablet PO 03/20/24 10:01 25 mg ONCE ONE Administration Sodium Chloride 40 ml 03/20/24 10:55 03/20/24 10:57 0.9 % Sodium Chloride 50 Ml Vial IV 03/20/24 10:56 40 ml ONCE ONE Administration Sodium Chloride 10 ml 03/20/24 10:55 03/20/24 10:57 Sodium Chloride 0.9% 10ml Syr (Rad Only) IV 03/20/24 10:56 10 ml ONCE ONE Administration ORDERS Category Date Time Status CT angio head Stat Cat Scan 03/20/24 10:[address] angio neck Stat Cat Scan 03/20/24 10:[address] head/brain wo con Stat Cat Scan 03/20/24 10:00 Completed CXR --portable [XR chest portable] Stat Exams 03/20/24 11:03 Completed CBC w/Auto Diff [Complete Blood Count Auto Diff] Stat Lab 03/20/24 09:29 Completed CMP [Comprehensive Metabolic Panel] Stat Lab 03/20/24 09:29 Completed HIV (1&2) Antibody Rapid Stat Lab 03/20/24 09:29 Completed Hep C Ab with Reflex to RNA Stat Lab 03/20/24 09:29 Ordered MG [Magnesium] Stat Lab 03/20/24 09:29 Completed Trop I [Troponin I] Stat Lab 03/20/24 09:29 Completed Troponin I Q3H Lab 03/20/24 14:15 Ordered Troponin I Q3H Lab 03/20/24 17:15 Ordered UA [Urinalysis and Microscopic] Stat Lab 03/20/24 12:11 Received ECG Data Tracing #1: Independently interpreted by me rate is 73, rhythm is regular, axis is normal, no ST elevation in anatomical contiguous leads, QTc 433 no high degree AV block, no dagger Q waves in the lateral leads, no prolonged QTc. Medical Decision Narrative: In summary patient is a 53-year-old female past medical history described above presents emergency department for evaluation of vertigo. Patient is hemodynamically stable nontoxic-appearing upon arrival, afebrile. Patient has a nonfocal neurologic exam. Patient does not have hypertension to the point where it would constitute hypertensive emergency or urgency. Differential includes posterior circulation abnormalities, electrolyte abnormalities, among others. Patient is not positional to suggest BPPV. Workup be conducted with hematologic labs, EKG, CTA head and neck, noncontrasted CT scan of the head. Initial inventions include meclizine. Initial workup reviewed by me, mild leukopenia which is stable. There are no critical electrolyte abnormalities, initial troponin undetectably low. Chest x-ray informally interpreted by me, no acute lobar opacities or large pneumothorax. Formal read shows no evidence of pneumonia or interstitial edema. Noncontrasted CT scan of the head no acute intracranial abnormality. Scattered hypodensities consistent with small vessel disease. Imaging consistent with a right ostiomeatal sinusitis. CTA is no definitive LVO. Upon repeat evaluation patient had large resolution of symptoms. Repeat neurologic exam no acute focal findings. NIH is 0. Patient is ambulatory. Given this I do not have concern for posterior circulation stroke at this time. Given this patient is appropriate for outpatient management will follow-up with ENT and was given multiple return precautions and verbalized understanding. Critical Care Critical Care Time Critical Care Time: No
[2024-03-20] MEDS: MECLIZINE 25MG TABLET 25 MG PO (10:08)
--- NOTE | 2024-03-20 10:11 | ECG_ITS ---
APPROVED REPORT Exam: Resting ECG HR:73 bpm ECG Measurements Heart Rate 73 AXES OK 171 P 4 QRSd 94 QRS 24 QT 407 T 53 QTc 433 Conclusion SINUS RHYTHM NORMAL ECG Electronically signed by : LEONA BROOKS, 03/20/2024 15:00:58
[2024-03-20 10:13] LABS: Albumin Level 3.5 g/dl (3.5-5.0); Chloride 108 mmol/L (98-107); Potassium 3.6 mmoL/L (3.5-5.1); Sodium 140 mmol/L (136-145)
[2024-03-20 10:15] LABS: Anion Gap 5.6 mEq/L (5-15); Blood Urea Nitrogen 8 mg/dl (7-17); Carbon Dioxide 30 mmol/L (22.0-30.0); Creatinine Clearance Estimated 115 mL/min (50-200); Estimated Glomerular Filt Rate 66 ml/min (>60); GFR (African American) 80 ML/MIN (>60)
[2024-03-20 10:16] LABS: Alanine Aminotransferase 27 U/L (12-78); Albumin/Globulin Ratio 1.1 (1.1-1.8); Alkaline Phosphatase 74 U/L (38-126); Aspartate Amino Transferase 56 U/L (14-36); Bilirubin,Total 1.3 mg/dl (0.2-1.3); Calcium 8.7 mg/dl (8.4-10.2); Globulin 3.3 g/dL (1.3-3.2); Glucose 171 mg/dl (74-100); Magnesium 2.1 mg/dl (1.6-2.3); Total Protein,Serum 6.8 g/dl (6.3-8.2)
[2024-03-20 10:19] LABS: Basophils % 0.7 % (0.1-2.0); Eosinophils # 0.1 K/mm3 (0.0-0.4); Eosinophils % 4.5 % (0.1-12.0); Hematocrit 40.1 % (37.0-47.0); Hemoglobin 13.8 g/dL (12.2-16.2); Lymphocytes # 0.7 K/mm3 (0.7-4.5); Lymphocytes % 27.9 % (10-50); Mean Corpuscular HGB Conc 34.4 g/dL (31.8-35.4); Mean Corpuscular Hemoglobin 33.4 pg (27.0-31.2); Mean Corpuscular Volume 96.9 fl (81-99); Mean Platelet Volume 7.3 fl (7.4-10.4); Monocytes # 0.2 K/mm3 (0.1-1.0); Monocytes % 6.8 % (1.7-9.3); Neutrophils # 1.5 K/mm3 (1.8-7.8); Neutrophils % 60.1 % (37.0-80.0); Platelet Count 88 K/mm3 (142-424); Red Blood Count 4.14 M/mm3 (4.20-5.40); Red Cell Distribution Width 14.5 % (11.5-17.5); White Blood Count 2.5 K/mm3 (4.8-10.8)
[2024-03-20] MEDS: SODIUM CHLORIDE 0.9% 10ML SYR (RAD ONLY) 10 ML IV (10:57)
[2024-03-20] MEDS: 0.9 % SODIUM CHLORIDE 50 ML VIAL 40 ML IV (10:57)
[2024-03-20] MEDS: IOPAMIDOL-370 (76%);100ML BOTTLE 80 ML IV (10:57)
--- NOTE | 2024-03-20 11:03 | XR_ITS ---
PROCEDURE INFORMATION: Exam: XR Chest Exam date and time: 03/20/2024 11:07 AM Age: 53 years old Clinical indication: Shortness of breath; Additional info: SOB TECHNIQUE: Imaging protocol: Radiologic exam of the chest. Views: 1 view. COMPARISON: CT ANGIO CHEST PE PROTOCOL 02/18/2024 8:54 PM FINDINGS: Lungs: No evidence of pneumonia or interstitial edema. Pleural spaces: Unremarkable. No pleural effusion. No pneumothorax. Heart/Mediastinum: Unremarkable. No cardiomegaly. Bones/joints: Unremarkable. IMPRESSION: No evidence of pneumonia or interstitial edema.
[2024-03-20 11:39] LABS: Troponin I < 0.01 ng/ml (0.00-0.034)
[2024-03-20 12:11] LABS: HIV (1&2) Antibody Rapid NONREACTIVE (NONREACTIVE)
[2024-03-20 12:14] LABS: Microscopic, Urine URINE MICROSCOPIC (MICROSCOPIC)
[2024-03-20 12:28] LABS: Appearance,Urine CLEAR (Clear); Bilirubin,Urine Negative (Negative); Blood, Urine 3+ (Negative); Color,Urine YELLOW (Yellow); Glucose,Urine (UA) Negative (Negative); Ketones,Urine Negative (Negative); Leukocyte Esterase,Urine Negative (Negative); Nitrate,Urine Negative (Negative); PH,Urine 7.5 (5.0-8.5); Protein,Urine Negative (Negative)
[2024-03-20 12:42] LABS: RBC,Urine 20-50 #/hpf (0-3)
--- NOTE | 2024-03-20 13:59 | PC.NURSE ---
called eduarda calderon, someone will be here to pick her up.
== END 2024-03-20 14:26 | disposition home or self-care (01) ==
PROVIDERS: Emergency Provider Emergency Medicine; PCP Nurse Practitioner Acute Care
DX: J32.9 Chronic sinusitis, unspecified (principal); R42 Dizziness and giddiness; I10 Essential (primary) hypertension; H92.03 Otalgia, bilateral
CPT/HCPCS: 70450; 70496; 70498; 71045; 80053; 81001; 83735; 84484; 85025; 87389; 93005; 99284; 99285; Q9967

== ENCOUNTER 2024-03-25 16:48 | Emergency (ER) | payer BC, OTHER, SELFPAY ==
[2024-03-25] VITALS (8 sets, daily range): BP systolic 121–154; BP diastolic 67–79; PULSE 61–81; RESP 16–20; TEMP 36.4–36.6; O2SAT 91–98; BMI 43.9
--- NOTE | 2024-03-25 16:51 | HMH.EDGENADL ---
Discharge Plan Disposition Patient Disposition: Home, Self-Care Condition: Good Prescriptions Prescriptions: New meclizine 25 mg tablet 25 mg PO BID PRN (Reason: dizziness) 7 Days Qty: 14 0RF Discontinued meclizine 25 mg tablet 25 mg PO DAILY PRN (Reason: motion sickness) Qty: 10 0RF No Action levofloxacin 750 mg tablet 750 mg PO DAILY 7 Days Qty: 7 0RF amitriptyline 50 mg Tablet 50 mg PO HS carvedilol 3.125 mg Tablet 3.125 mg PO BID levothyroxine 100 mcg Tablet 100 mcg PO AM pantoprazole 40 mg Tablet,Delayed Release (Dr/Ec) 40 mg PO DAILY duloxetine 30 mg Capsule,Delayed Release(Dr/Ec) 30 mg PO DAILY melatonin 5 mg tablet 5 mg PO HS oxcarbazepine 300 mg tablet 300 mg PO BID amlodipine 5 mg tablet 5 mg PO HS pyridoxine (vitamin B6) 50 mg tablet 50 mg PO DAILY acetaminophen 325 mg Tablet 325 mg PO QID PRN (Reason: Pain) cyclobenzaprine 5 mg Tablet 5 mg PO TID PRN (Reason: Muscle Pain ) ferrous sulfate 324 mg (65 mg iron) tablet,delayed release (DR/EC) 324 mg PO DAILY Rx Instructions: take 1 tab every other day albuterol sulfate 90 mcg/actuation HFA aerosol inhaler 1 puff inhalation Q6H PRN (Reason: Shortness Of Breath) Patient Comments: INHALE 1 PUFF BY MOUTH EVERY 6 HOURS NEEDED may keep AT bedside (shortness of breath) hydroxyzine pamoate 25 mg Capsule 25 mg PO QID PRN (Reason: Anxiety) Xifaxan 550 mg Tablet 550 mg PO BID 30 Days Qty: 60 2RF lactulose 20 gram/30 mL Solution 20 g PO BID 30 Days Qty: 1800 0RF promethazine 25 mg suppository 25 mg NE Q6H PRN (Reason: sedation) Qty: 12 0RF prednisone 50 mg tablet 50 mg PO DAILY 5 Days Qty: 5 0RF Activity Restrictions/Add. Instructions Additional Instructions/Restrictions: As we discussed, your CT scans did not show any stroke. I have prescribed a medication that you can take as needed for some of the dizziness you are experiencing. Please return with any new or worsening symptoms. Clinical Impressions Clinical Impression: Dizziness Print Language Print Language: Arabic Discharge ED Provider: Clara,Evangelist General Adult HPI General Chief complaint: Recheck/Abnormal Lab/Rx Stated complaint: dizziness Time Seen by Provider: 03/25/24 16:51 History of Present Illness HPI narrative: The patient presents with a chief complaint of sudden onset of generalized weakness and a change in voice. The patient reports that the weakness started after getting off the bus and denies any falls or pain. They also deny any numbness or tingling. The patient mentions that the last time they experienced a change in their voice was during a previous stroke. The patient's voice change occurred a few minutes prior to the visit and they express concern about it, stating My voice is going crazy and I don't understand why I'm talking like this. The patient has a history of diabetes and a previous stroke, which affected the same side as their current symptoms. The patient denies any dizziness or changes in sensation in their face. Additionally, the patient reports feeling weak all over and expresses frustration, saying I just don't have my energy and I hate this stuff. They also mention that they are having difficulty touching their nose with the same side that was affected by their previous stroke. Please note that above description of symptoms, in this electronic medical record under categorization of recalled from ER triage doctor by RN are reflective of an initial nursing assessment, however, is not reflective of my full history and physical exam that was personally taken and clarified. Consequentially, this preceding description of symptoms, which may include the patient's categorized chief complaint in the EMR, do not reflect my personal clinical impression, and the ultimate description of history of present illness and patient stated complaints should be deferred to this section of the note. Unless stated otherwise or congruent with this section of the note, additional signs, symptoms, or incongruence should be interpreted as inaccurate with my clinical impression. Related Data Home Medications ?Medication ?Instructions ?Recorded ?Confirmed amitriptyline 50 mg tablet 50 mg PO HS 05/02/22 07/18/23 carvedilol 3.125 mg tablet 3.125 mg PO BID 05/02/22 07/18/23 duloxetine 30 mg capsule,delayed 30 mg PO DAILY 05/02/22 07/18/23 release levothyroxine 100 mcg tablet 100 mcg PO AM 05/02/22 07/18/23 pantoprazole 40 mg tablet,delayed 40 mg PO DAILY 05/02/22 07/18/23 release melatonin 5 mg tablet 5 mg PO HS 05/03/22 07/18/23 oxcarbazepine 300 mg tablet 300 mg PO BID 02/20/23 07/18/23 amlodipine 5 mg tablet 5 mg PO HS 02/21/23 07/18/23 pyridoxine (vitamin B6) 50 mg 50 mg PO DAILY 02/21/23 07/18/23 tablet acetaminophen 325 mg tablet 325 mg PO QID PRN Pain 05/14/23 07/18/23 cyclobenzaprine 5 mg tablet 5 mg PO TID PRN Muscle Pain 05/14/23 07/18/23 ferrous sulfate 324 mg (65 mg 324 mg PO DAILY 05/14/23 07/19/23 iron) tablet,delayed release albuterol sulfate 90 mcg/actuation 1 puff inhalation Q6H PRN 07/18/23 07/18/23 aerosol inhaler Shortness Of Breath hydroxyzine pamoate 25 mg capsule 25 mg PO QID PRN Anxiety 07/19/23 07/19/23 Previous Rx's ?Medication ?Instructions ?Recorded lactulose 20 gram/30 mL oral 20 g (30 mL) PO BID 30 days #1,800 07/20/23 solution mL rifaximin 550 mg tablet (Xifaxan) 550 mg PO BID 30 days #60 tabs 07/20/23 levofloxacin 750 mg tablet 750 mg PO DAILY 7 days #7 tabs 08/25/23 prednisone 50 mg tablet 50 mg PO DAILY 5 days #5 tabs 01/06/24 promethazine 25 mg rectal 25 mg NE Q6H PRN sedation #12 ea 01/06/24 suppository meclizine 25 mg tablet 25 mg PO BID PRN dizziness 7 days 03/25/24 #14 tabs Allergies Allergy/AdvReac Type Severity Reaction Status Date / Time amoxicillin (From Augmentin) Allergy Unknown Verified 03/25/24 17:02 allergy reaction clavulanic acid (From Allergy Unknown Verified 03/25/24 17:02 Augmentin) allergy reaction oxycodone Allergy Unknown Verified 03/25/24 17:02 allergy reaction PFSH PFSH Disclaimer: The information contained in this section may have been updated after the patient was seen, as this information can be updated by other users. Medical History SIRS (systemic inflammatory response syndrome) Acute hepatic encephalopathy Bipolar 1 disorder Metabolic encephalopathy Respiratory failure Cellulitis Fall Hypothyroidism Hypertension UTI (urinary tract infection) Encephalopathy Cognitive impairment Murmur, heart Cirrhosis of liver Obstructive sleep apnea Hypothyroid Anxiety Surgical History H/O section H/O hernia repair Hx of appendectomy Family History Other No significant family history Social History (Updated 03/20/24 @ 12:29 by Umesh Harley MD) Smoking Status: Current every day smoker alcohol intake: never current occupational status: disabled Other Medical History Have you received the Flu Vaccine for this season: No Have you received the Pneumonia Vaccine: No ROS Obtained: Yes other As per HPI Physical Exam General General appearance: alert and in no apparent distress Head Head exam: atraumatic and normocephalic Eye Eye exam: Present normal appearance Neck Neck exam: Present normal inspection Chest Chest inspection: Present normal inspection and symmetric chest wall rise Respiratory Respiratory exam: Present normal lung sounds bilaterally; Absent respiratory distress Cardiovascular Cardiovascular exam: Present regular rate and normal rhythm Abdominal Exam Abdominal exam: Present soft Neurological Exam Neurological exam: Present alert and oriented X3 Psychiatric Psychiatric exam: Present normal affect and normal mood Skin Skin exam: Present warm and dry Medical Decision Making Medical Records Medical records reviewed: Yes I reviewed the patient's medical records. Screening: Per USPSTF and CDC recommendations, given the prevalence of disease in our region, it is our hospital?s policy to screen for HIV and viral Hepatitis for all patients aged 18 and over and those with ongoing risk factors. Darrian Inquiry Pt receiving controlled substance: No Vital Signs: 03/25/24 16:46 03/25/24 16:54 03/25/24 16:55 Temperature 97.6 F Temperature Source Oral Pulse Rate 66 63 Pulse Rate [Right] 66 Respiratory Rate 16 Blood Pressure 136/76 Blood Pressure [Right Arm] 137/67 Blood Pressure Mean [Right Arm] 90 Blood Pressure Source [Right Arm] Automatic Cuff Blood Pressure Position [Right Arm] Sitting 02 Sat by Pulse Oximetry 95 96 95 Oxygen Delivery Method Room Air 03/25/24 19:03 03/25/24 19:30 03/25/24 20:01 Temperature Temperature Source Pulse Rate 81 61 64 Pulse Rate [Right] Respiratory Rate Blood Pressure 154/71 H 133/79 121/70 Blood Pressure [Right Arm] Blood Pressure Mean [Right Arm] Blood Pressure Source [Right Arm] Blood Pressure Position [Right Arm] 02 Sat by Pulse Oximetry 98 94 L 91 L Oxygen Delivery Method 03/25/24 20:33 03/25/24 21:23 Temperature 97.8 F Temperature Source Oral Pulse Rate 68 63 Pulse Rate [Right] Respiratory Rate 20 Blood Pressure 126/73 138/68 Blood Pressure [Right Arm] Blood Pressure Mean [Right Arm] Blood Pressure Source [Right Arm] Blood Pressure Position [Right Arm] 02 Sat by Pulse Oximetry 94 L Oxygen Delivery Method Room Air Lab Data Lab Results 03/25/24 17:00: WBC 3.7 L, RBC 4.31, Hgb 14.5, Hct 40.3, MCV 93.5, MCH 33.7 H, MCHC 36.0 H, RDW 14.7, Plt Count 101 L, MPV 8.2, Neut % (Auto) 58.2, Lymph % (Auto) 22.4, [place] % (Auto) 16.1 H, Eos % (Auto) 3.3, Baso % (Auto) 0.7, Neut # (Auto) 2.2, Lymph # (Auto) 0.8, [place] # (Auto) 0.6, Eos # (Auto) 0.1, Baso # (Auto) 0.0, PT 11.2, INR 1.00, APTT 25.3, Sodium 142, Potassium 3.8, Chloride 108 H, Carbon Dioxide 29, Anion Gap 8.8, BUN 11, Creatinine 1.00, Estimated Creat Clear 47, Estimated GFR 58 L, Est GFR ( Amer) 70, Glucose 72 L, Calcium 9.0, Total Bilirubin 1.6 H, AST 80 H, ALT 30, Alkaline Phosphatase 78, Troponin I 0.01, Total Protein 7.8, Albumin 4.0, Globulin 3.8 H, Albumin/Globulin Ratio 1.1, Triglycerides 132, Cholesterol 172, LDL Cholesterol Direct < 30.00 L, VLDL Cholesterol 26, HDL Cholesterol 99 H, Cholesterol/HDL Ratio 1.7, Plasma/Serum Alcohol < 10 03/25/24 20:19: Urine Color Yellow, Urine Appearance Clear, Urine pH 6.5, Ur Specific Morgan 1.010, Urine Protein Negative, Urine Glucose (UA) Negative, Urine Ketones Negative, Urine Blood 3+ A, Urine Nitrate Negative, Urine Bilirubin Negative, Urine Urobilinogen 0.2, Ur Leukocyte Esterase Negative, Urine RBC Tntc, Urine WBC 3-5, Ur Squamous Epith Cells 20-50, Urine Bacteria 1+, Urine Opiates Screen Negative, Urine Methadone Screen Negative, Ur Barbituates Screen Negative, Ur Phencyclidine Scrn Negative, Ur Amphetamines Screen Negative, U Benzodiazepines Scrn Negative, Urine Cocaine Screen Negative, U Marijuana (THC) Screen Negative 03/25/24 20:36: Troponin I 0.02 03/25/24 17:00 03/25/24 17:00 Orders (Tests/Meds): ED MEDICATIONS Discontinued Medications Generic Name Dose Route Start Last Admin Trade Name Freq PRN Reason Stop Dose Admin Iopamidol 80 ml 03/25/24 18:54 03/25/24 18:55 Iopamidol-370 (76%);100ml Bottle IV 03/25/24 18:55 80 ml ONCE ONE Administration Lorazepam 0.5 mg 03/25/24 19:00 03/25/24 19:00 Lorazepam 2mg/Ml Vial IV 03/25/24 19:01 0.5 mg ONCE ONE Administration Sodium Chloride 10 ml 03/25/24 17:27 Sodium Chloride 0.9% 10ml Flush Syringe IV 04/24/24 17:26 NEEDED PRN Maintain IV Site Sodium Chloride 10 ml 03/25/24 18:54 03/25/24 18:55 Sodium Chloride 0.9% 10ml Syr (Rad Only) IV 03/25/24 18:55 10 ml ONCE ONE Administration Sodium Chloride 50 ml 03/25/24 18:54 03/25/24 18:55 0.9 % Sodium Chloride 50 Ml Vial IV 03/25/24 18:55 50 ml ONCE ONE Administration Sodium Chloride 10 ml 03/25/24 19:42 Sodium Chloride 0.9% 10ml Vial IV 04/24/24 19:41 NEEDED PRN to Dilute Lorazepam inj ORDERS Category Date Time Status CT angio head Stat Cat Scan 03/25/24 17:[address] angio neck Stat Cat Scan 03/25/24 17:[address] head/brain wo con Stat Cat Scan 03/25/24 17:28 Completed Activated Partial Thrombo Time Stat Lab 03/25/24 17:00 Completed Complete Blood Count Auto Diff Stat Lab 03/25/24 17:00 Completed Comprehensive Metabolic Panel Stat Lab 03/25/24 17:00 Completed Drug Screen,Urine Stat Lab 03/25/24 20:19 Completed Ethyl Alcohol Stat Lab 03/25/24 17:00 Completed Lipid Panel Stat Lab 03/25/24 17:00 Completed Prothrombin Time INR Stat Lab 03/25/24 17:00 Completed Troponin I Q3H Lab 03/25/24 20:36 Completed Troponin I Stat Lab 03/25/24 17:00 Completed Urinalysis and Microscopic Stat Lab 03/25/24 20:19 Completed Medical Decision Narrative: Patient with history and exam per above presenting for evaluation of multiple complaints, including generalized weakness, reported voice changes, intermittent dizziness Differential diagnosis remains quite broad at this time, patient has had similar symptoms in the past attributable to psychiatric illness, suspect large component of anxiety contributing to her symptoms although differential does include electrolyte abnormality, hypoglycemia, stroke, including posterior circulation stroke, although no nystagmus at rest, no dysmetria, no dysdiadochokinesia, no past-pointing, no rebound phenomenon, no ataxia. I appreciate no dysarthria at this time ED workup and treatment included: ED MEDICATIONS Discontinued Medications Generic Name Dose Route Start Last Admin Trade Name Freq PRN Reason Stop Dose Admin Iopamidol 80 ml 03/25/24 18:54 03/25/24 18:55 Iopamidol-370 (76%);100ml Bottle IV 03/25/24 18:55 80 ml ONCE ONE Administration Lorazepam 0.5 mg 03/25/24 19:00 03/25/24 19:00 Lorazepam 2mg/Ml Vial IV 03/25/24 19:01 0.5 mg ONCE ONE Administration Sodium Chloride 10 ml 03/25/24 17:27 Sodium Chloride 0.9% 10ml Flush Syringe IV 04/24/24 17:26 NEEDED PRN Maintain IV Site Sodium Chloride 10 ml 03/25/24 18:54 03/25/24 18:55 Sodium Chloride 0.9% 10ml Syr (Rad Only) IV 03/25/24 18:55 10 ml ONCE ONE Administration Sodium Chloride 50 ml 03/25/24 18:54 03/25/24 18:55 0.9 % Sodium Chloride 50 Ml Vial IV 03/25/24 18:55 50 ml ONCE ONE Administration Sodium Chloride 10 ml 03/25/24 19:42 Sodium Chloride 0.9% 10ml Vial IV 04/24/24 19:41 NEEDED PRN to Dilute Lorazepam inj ORDERS Category Date Time Status CT angio head Stat Cat Scan 03/25/24 17:[address] angio neck Stat Cat Scan 03/25/24 17:[address] head/brain wo con Stat Cat Scan 03/25/24 17:28 Completed Activated Partial Thrombo Time Stat Lab 03/25/24 17:00 Completed Complete Blood Count Auto Diff Stat Lab 03/25/24 17:00 Completed Comprehensive Metabolic Panel Stat Lab 03/25/24 17:00 Completed Drug Screen,Urine Stat Lab 03/25/24 20:19 Completed Ethyl Alcohol Stat Lab 03/25/24 17:00 Completed Lipid Panel Stat Lab 03/25/24 17:00 Completed Prothrombin Time INR Stat Lab 03/25/24 17:00 Completed Troponin I Q3H Lab 03/25/24 20:36 Completed Troponin I Stat Lab 03/25/24 17:00 Completed Urinalysis and Microscopic Stat Lab 03/25/24 20:19 Completed Labs were independently interpreted by me, significant for no acute findings Imaging was independently visualized and interpreted by me, significant for no acute findings Please refer to radiology report for full details. Patient reports resolution of symptoms upon repeat evaluation. She was acutely anxious in the emergency department following CT scan requiring administration of Ativan which resolved symptoms that prompted evaluation today I discussed my clinical impression with patient and answered all questions. At this time, the evidence for any other entities in the differential is insufficient to warrant any further testing or ED observation. This was explained to the patient. The patient was advised that persistent or worsening symptoms require further evaluation. Critical Care Critical Care Time Critical Care Time: No
--- NOTE | 2024-03-25 17:00 | ECG_ITS ---
APPROVED REPORT Exam: Resting ECG HR:65 bpm ECG Measurements Heart Rate 65 AXES NE 185 P 59 QRSd 108 QRS 54 QT 452 T 68 QTc 464 Conclusion SINUS RHYTHM NORMAL ECG Electronically signed by : ADAN BUENO, 03/25/2024 22:34:02
--- OUTSIDE RECORDS SUMMARY | 2024-03-25 17:04 | XMS_ITS | Encounter Summary ---
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
--- OUTSIDE RECORDS SUMMARY | 2024-03-25 17:04 | XMS_ITS | Clinical Summary ---
Author Organization [facility] Address [address] [place] [address] Phone Care Team Providers Care Fisher Lampara Net Name Role Phone Unavailable Primary Care Provider [...] season) 2023 Influenza Vaccine (#1) [address] [place], [place] [id number] [facility] MEDICAID CARVE OUT [facility] COMMUNITY PLAN [place] MDR
--- OUTSIDE RECORDS SUMMARY | 2024-03-25 17:04 | XMS_ITS | Referral Summary ---
Author Organization [facility] Address [address] [place] [address] Phone Care Team Providers Care Sustainable Agriculture Faculty Name Role Phone Unavailable Primary Care Provider [...] Treatment Not on file Insurance [employer] P[employer] [facility] MEDICAID CARVE OUT [facility] COMMUNITY PLAN [place] MDR
--- NOTE | 2024-03-25 17:28 | CT_ITS ---
PROCEDURE INFORMATION: Exam: CTA Head With Contrast, Arteriography Exam date and time: 03/25/2024 6:51 PM Age: 54 years old Clinical indication: Stroke-like symptoms; Altered mental status/memory loss; Additional info: Possible stroke TECHNIQUE: Imaging protocol: Computed tomographic angiography of the head with contrast. Exam focused on the arteries. 3D rendering (Not supervised by radiologist): MIP and/or 3D reconstructed images were created by the technologist. Radiation optimization: All CT scans at this facility use at least one of these dose optimization techniques: automated exposure control; mA and/or kV adjustment per patient size (includes targeted exams where dose is matched to clinical indication); or iterative reconstruction. Contrast material: ISOVE 370; Contrast volume: 80 ml; Contrast route: INTRAVENOUS (IV); COMPARISON: CT ANGIO HEAD 03/25/2024 6:51 PM FINDINGS: ANTERIOR CIRCULATION: Right internal carotid artery: The right ICA petrous segment is unremarkable. Cavernous and supraclinoid segments demonstrate minimal calcific plaque without stenosis. Right middle cerebral artery: Unremarkable. No occlusion or significant stenosis. No aneurysm. Right anterior cerebral artery: Right A1 segment is dominant. No occlusion or significant stenosis. No aneurysm. The anterior communicating artery is unremarkable. Left internal carotid artery: The left ICA petrous segment is unremarkable. Cavernous and supraclinoid segments demonstrate minimal calcific plaque without stenosis. Left middle cerebral artery: Unremarkable. No occlusion or significant stenosis. No aneurysm. Left anterior cerebral artery: No occlusion or significant stenosis. No aneurysm. POSTERIOR CIRCULATION: Right vertebral artery: Right vertebral artery is mildly dominant. No occlusion or significant stenosis. No aneurysm. Left vertebral artery: Unremarkable. No occlusion or significant stenosis. No aneurysm. Basilar artery: Unremarkable. No occlusion or significant stenosis. No aneurysm. Right posterior cerebral artery: Very small right posterior communicating artery present. No occlusion or significant stenosis. No aneurysm. Left posterior cerebral artery: Moderate-sized left posterior communicating artery is present. No occlusion or significant stenosis. No aneurysm. Veins: The dural venous sinuses and major cortical veins enhance appropriately without evidence of thrombosis. Left dominant venous drainage. Brain: No enhancing brain lesions or vascular malformations are identified. Mild generalized cerebral/cerebellar atrophy consistent with age. Mild-moderate bilateral white matter hypodensities, nonspecific but most commonly associated with chronic microvascular changes in this age group. Cerebral ventricles: Mild compensatory ventriculomegaly secondary to central atrophy. Paranasal sinuses: Evidence of chronic sinusitis with internal hyperdense elements concerning for possible fungal sinusitis. Expansile process at the right OMC with continuity into the adjacent right nasal passage, possibly expansile polyp although recommend ENT referral for further assessment. Bones/joints: Unremarkable. No acute fracture. Soft tissues: Unremarkable. IMPRESSION: 1. No evidence of large vessel occlusion or significant stenosis. No evidence of arterial dissection or aneurysm/pseudoaneurysm. 2. Atrophy and microvascular changes 3. Chronic sinusitis with expansile process at the right OMC, recommend follow-up ENT referral. PROCEDURE INFORMATION: Exam: CTA Neck With Contrast Exam date and time: 03/25/2024 6:51 PM Age: 54 years old Clinical indication: Stroke-like symptoms; Altered mental status/memory loss; Additional info: Possible stroke TECHNIQUE: Imaging protocol: Computed tomographic angiography of the neck with contrast. Exam focused on the cervical segments of the vasculature. 3D rendering (Not supervised by radiologist): MIP and/or 3D reconstructed images were created by the technologist. Radiation optimization: All CT scans at this facility use at least one of these dose optimization techniques: automated exposure control; mA and/or kV adjustment per patient size (includes targeted exams where dose is matched to clinical indication); or iterative reconstruction. COMPARISON: CT ANGIO NECK 03/25/2024 6:51 PM FINDINGS: Right common carotid artery: Mild tortuosity. No stenosis. No dissection or occlusion. Right internal carotid artery: Mild tortuosity. No stenosis. No dissection or occlusion. Right external carotid artery: Normal. No stenosis. No dissection or occlusion. Left common carotid artery: Mild tortuosity. No stenosis. No dissection or occlusion. Left internal carotid artery: Minimal calcific plaque in the left carotid bulb. Mild tortuosity. No stenosis. No dissection or occlusion. Left external carotid artery: Normal. No stenosis. No dissection or occlusion. Right vertebral artery: Normal. No stenosis. No dissection or occlusion. Left vertebral artery: Normal. No stenosis. No dissection or occlusion. Brachiocephalic artery: The brachiocephalic artery is unremarkable. Right subclavian artery: The right subclavian artery is unremarkable. Left subclavian artery: The left subclavian artery assessment was limited by adjacent hyperdense intravenous contrast, without gross abnormality. Aorta: The visualized aortic arch demonstrates mild ectasia and calcific plaque without evidence of dissection or gross aneurysm. Pulmonary arteries: Mild-moderate dilatation of the central pulmonary arteries suggesting pulmonary arterial hypertension. Thyroid: The thyroid gland is unremarkable. Soft tissues: No significant soft tissue swelling or hematoma. Bones/joints: No acute osseous abnormalities are identified. Mild anterior spurring and slight degenerative anterolisthesis C4-C5. Lungs: Mosaic ground-glass attenuation in both lungs may be due to hypoventilatory changes and subsegmental atelectasis, versus patchy mild edema or pneumonitis. No woo consolidations. Heart: Mild-moderate cardiomegaly. IMPRESSION: 1. No evidence of arterial occlusion, significant stenosis, dissection, or aneurysm/pseudoaneurysm. 2. Mild-moderate cardiomegaly and pulmonary arterial hypertension with bilateral ground-glass mosaic attenuation in the lungs, possibly hypoventilatory changes and subsegmental atelectasis versus patchy mild edema or pneumonitis. REFERENCES: NASCET CRITERIA. The degree of stenosis in the cervical segment of the internal carotid artery is based on NASCET criteria. Normal is no stenosis. Mild is less than 50% stenosis. Moderate is 50-69% stenosis. Severe is 70% to 99% stenosis. Total occlusion is no detectable patent lumen.
--- NOTE | 2024-03-25 17:28 | CT_ITS ---
PROCEDURE INFORMATION: Exam: CT Head Without Contrast Exam date and time: 03/25/2024 6:47 PM Age: 54 years old Clinical indication: Stroke-like symptoms; Altered mental status/memory loss; Additional info: Possible stroke TECHNIQUE: Imaging protocol: Computed tomography of the head without contrast. Radiation optimization: All CT scans at this facility use at least one of these dose optimization techniques: automated exposure control; mA and/or kV adjustment per patient size (includes targeted exams where dose is matched to clinical indication); or iterative reconstruction. Other technique: STROKE PROTOCOL was implemented. COMPARISON: CT ANGIO HEAD 03/20/2024 10:47 AM FINDINGS: Brain: The IACs are grossly normal. Mild bilateral basal ganglia calcification. No extra-axial fluid collections. No evidence of acute intracranial hemorrhage. Mild generalized cerebral/cerebellar atrophy. Moderate bilateral white matter hypodensities which are nonspecific but most commonly associated with chronic microvascular ischemia in this age group. Cerebral/cerebellar pineda-white differentiation is well maintained. No intracranial mass lesions. No midline shift or herniation. Cerebral ventricles: Mild compensatory ventriculomegaly secondary to central atrophy. Pituitary gland and sella: Partially empty sella configuration incidentally noted. Paranasal sinuses: Right maxillary sinus opacification and opacified bilateral posterior ethmoids with hyperdense internal elements, possibly fungal sinusitis. Opacified right OMC which is slightly expanded in appearance with contiguous opacification in the right nasal passage and right fronto-ethmoid distribution. Recommend ENT referral to exclude expansile polyp versus other mass lesion. Mastoid air cells: Visualized mastoid air cells are clear. Orbital cavities: No acute intraorbital findings. Bones: No acute osseous findings. Soft tissues: No acute soft tissue findings. Vasculature: Mild calcific atherosclerosis. IMPRESSION: 1. No acute intracranial process. No intracranial hemorrhage or mass effect. 2. Changes of chronic sinusitis with internal hyperdense elements, possibly fungal sinusitis. Expanded right OMC with contiguous soft tissue density in the right nasal passage, possibly expansile polyp versus other mass, recommend follow-up ENT referral. 3. Atrophy and moderate microvascular changes. ASSESSMENT: ASPECTS ([place] Stroke Program Early CT Score) is 10.
[2024-03-25 17:38] LABS: Chloride 108 mmol/L (98-107); Potassium 3.8 mmoL/L (3.5-5.1); Sodium 142 mmol/L (136-145)
[2024-03-25 17:40] LABS: Basophils % 0.7 % (0.1-2.0); Blood Urea Nitrogen 11 mg/dl (7-17); Creatinine Clearance Estimated 47 mL/min (50-200); Eosinophils # 0.1 K/mm3 (0.0-0.4); Eosinophils % 3.3 % (0.1-12.0); Estimated Glomerular Filt Rate 58 ml/min (>60); GFR (African American) 70 ML/MIN (>60); Hematocrit 40.3 % (37.0-47.0); Hemoglobin 14.5 g/dL (12.2-16.2); Lymphocytes # 0.8 K/mm3 (0.7-4.5); Lymphocytes % 22.4 % (10-50); Mean Corpuscular Hemoglobin 33.7 pg (27.0-31.2); Mean Corpuscular Volume 93.5 fl (81-99); Mean Platelet Volume 8.2 fl (7.4-10.4); Monocytes # 0.6 K/mm3 (0.1-1.0); Monocytes % 16.1 % (1.7-9.3); Neutrophils # 2.2 K/mm3 (1.8-7.8); Neutrophils % 58.2 % (37.0-80.0); Platelet Count 101 K/mm3 (142-424); Red Blood Count 4.31 M/mm3 (4.20-5.40); Red Cell Distribution Width 14.7 % (11.5-17.5); White Blood Count 3.7 K/mm3 (4.8-10.8)
[2024-03-25 17:41] LABS: Alanine Aminotransferase 30 U/L (12-78); Albumin/Globulin Ratio 1.1 (1.1-1.8); Alkaline Phosphatase 78 U/L (38-126); Anion Gap 8.8 mEq/L (5-15); Aspartate Amino Transferase 80 U/L (14-36); Bilirubin,Total 1.6 mg/dl (0.2-1.3); Carbon Dioxide 29 mmol/L (22.0-30.0); Chol/HDL Ratio 1.7 (1-3.5); Cholesterol 172 mg/dl (140-200); Globulin 3.8 g/dL (1.3-3.2); Glucose 72 mg/dl (74-100); HDL Cholesterol 99 mg/dl (40-60); Total Protein,Serum 7.8 g/dl (6.3-8.2); Triglycerides 132 mg/dl (30-150); VLDL Cholesterol 26 mg/dL (0-40)
[2024-03-25 17:44] LABS: Ethyl Alcohol < 10 mg/dl (0-10)
[2024-03-25 17:49] LABS: Activated Partial Thrombo Time 25.3 seconds (22.8-30.6); Prothrombin Time 11.2 seconds (10.1-12.5)
--- NOTE | 2024-03-25 17:49 | PC.NURSE ---
1720 came out and states he wants her worked up for a stroke. pt NIH is a 3, which is consistent with Dr. Hill [facility]
[2024-03-25 17:54] LABS: Direct LDL Cholesterol < 30.00 mg/dL (100-129); Troponin I 0.01 ng/ml (0.00-0.034)
[2024-03-25] MEDS: 0.9 % SODIUM CHLORIDE 50 ML VIAL IV (18:55)
[2024-03-25] MEDS: SODIUM CHLORIDE 0.9% 10ML SYR (RAD ONLY) 10 ML IV (18:55)
[2024-03-25] MEDS: IOPAMIDOL-370 (76%);100ML BOTTLE 80 ML IV (18:55)
[2024-03-25] MEDS: LORazepam 2MG/ML VIAL 0.5 MG IV (19:00)
[2024-03-25 20:23] LABS: Microscopic, Urine URINE MICROSCOPIC (MICROSCOPIC)
[2024-03-25 20:24] LABS: Appearance,Urine CLEAR (Clear); Bilirubin,Urine Negative (Negative); Blood, Urine 3+ (Negative); Color,Urine YELLOW (Yellow); Glucose,Urine (UA) Negative (Negative); Ketones,Urine Negative (Negative); Leukocyte Esterase,Urine Negative (Negative); Nitrate,Urine Negative (Negative); PH,Urine 6.5 (5.0-8.5); Protein,Urine Negative (Negative); Urobilinogen,Urine 0.2 EU/dl (0.2)
[2024-03-25 20:37] LABS: Barbiturates Screen,Urine Negative ng/ml (<200); Benzodiazepines Screen,Urine Negative ng/ml (<200)
[2024-03-25 20:38] LABS: Amphetamine/Metha Screen,Urine Negative ng/ml (<1000); Bacteria,Urine 1+ /lpf; RBC,Urine TNTC #/hpf (0-3); Squamous Epithelial Cell,Urine 20-50 #/hpf (0-5)
[2024-03-25 20:39] LABS: Cannabinoid Screen,Urine Negative ng/ml (<50); Cocaine Screen,Urine Negative ng/ml (<300)
[2024-03-25 20:40] LABS: Methadone Screen,Urine Negative ng/ml (<300); Opiate Screen,Urine Negative ng/ml (<300)
[2024-03-25 20:41] LABS: Phencyclidine Screen,Urine Negative ng/ml (<25)
[2024-03-25 21:05] LABS: Troponin I 0.02 ng/ml (0.00-0.034)
== END 2024-03-25 21:28 | disposition home or self-care (01) ==
PROVIDERS: Emergency Provider Emergency Medicine
DX: R42 Dizziness and giddiness (principal); R53.1 Weakness; R49.8 Other voice and resonance disorders
CPT/HCPCS: 70450; 70496; 70498; 80053; 80061; 80307; 80320; 81001; 84484; 85025; 85610; 85730; 93005; 96374; 99285; G0480; J2060; Q9967

== ENCOUNTER 2024-04-05 16:32 | Inpatient (IN) | payer BC, OTHER, SELFPAY ==
[2024-04-05] VITALS (11 sets, daily range): BP systolic 102–154; BP diastolic 49–82; PULSE 72–98; RESP 14–20; TEMP 36.8–38.7; O2SAT 93–99; BMI 41.3; BMI 40.1
--- NOTE | 2024-04-05 16:51 | XR_ITS ---
PROCEDURE INFORMATION: Exam: XR Chest Exam date and time: 04/05/2024 5:19 PM Age: 54 years old Clinical indication: Fever TECHNIQUE: Imaging protocol: Radiologic exam of the chest. Views: 1 view. COMPARISON: CR XR CHEST PORTABLE 03/20/2024 11:07 AM FINDINGS: Lungs: Bilateral ground-glass regions of opacification. Findings nonspecific however have progressed since the 03/20/2024 examination. Pleural spaces: Unremarkable. No pleural effusion. No pneumothorax. Heart/Mediastinum: Mild cardiomegaly. Bones/joints: Unremarkable. IMPRESSION: Findings compatible with interstitial pneumonitis.
--- NOTE | 2024-04-05 16:54 | ED_ITS ---
<Statement entered by Paul Holder MD - 04/05/24 23:08> I was consulted by the PHAM, and we discussed the complexity of the problems being addressed. I approved the treatment and management plan for this patient's care in the emergency department, thus performing a substantive portion of the medical decision making. Paul Holder MD, NED, FACEP Discharge Plan Disposition Patient Disposition: Admitted Clinical Impressions Clinical Impression: Acute hepatic encephalopathy Discharge ED Provider: Paul Holder General Adult HPI General Chief complaint: Fever Stated complaint: FEVER, DIARRHEA Time Seen by Provider: 04/05/24 16:42 Mode of Arrival: EMS Source of Information: EMS Limitations: No Limitations Description of Symptoms (Recalled from ER Triage Doc. by RN): PT BROUGHT IN BY [facility] FROM [facility], STATES PT HAS EYES OPEN BUT DOESN'T RESPOND TO ANY QUESTIONS WHICH STARTED THIS AFTERNOON, AARON REPORTS PT HAS HAD A FEVER, ALONG WITH URINATING OVER SELF AND DIARRHEA SINCE YESTERDAY, BS 109 WITH EMS History of Present Illness HPI narrative: 54-year-old female presents to the ED today via EMS for altered mental status, incontinence of stool and urine, fever 101.2 with EMS since last night. Duncan calderon went to check on her last night and she was like this. They went to check on her this afternoon and they called EMS. She continues to be responsive to her name. She will open her eyes and say yeah but that is all she will answer. She otherwise will not answer questions will not tell us her name and cannot follow directions. Related Data Home Medications ?Medication ?Instructions ?Recorded ?Confirmed amitriptyline 50 mg tablet 50 mg PO HS 05/02/22 07/18/23 carvedilol 3.125 mg tablet 3.125 mg PO BID 05/02/22 07/18/23 duloxetine 30 mg capsule,delayed 30 mg PO DAILY 05/02/22 07/18/23 release levothyroxine 100 mcg tablet 100 mcg PO AM 05/02/22 07/18/23 pantoprazole 40 mg tablet,delayed 40 mg PO DAILY 05/02/22 07/18/23 release melatonin 5 mg tablet 5 mg PO HS 05/03/22 07/18/23 oxcarbazepine 300 mg tablet 300 mg PO BID 02/20/23 07/18/23 amlodipine 5 mg tablet 5 mg PO HS 02/21/23 07/18/23 pyridoxine (vitamin B6) 50 mg 50 mg PO DAILY 02/21/23 07/18/23 tablet acetaminophen 325 mg tablet 325 mg PO QID PRN Pain 05/14/23 07/18/23 cyclobenzaprine 5 mg tablet 5 mg PO TID PRN Muscle Pain 05/14/23 07/18/23 ferrous sulfate 324 mg (65 mg 324 mg PO DAILY 05/14/23 07/19/23 iron) tablet,delayed release albuterol sulfate 90 mcg/actuation 1 puff inhalation Q6H PRN 07/18/23 07/18/23 aerosol inhaler Shortness Of Breath hydroxyzine pamoate 25 mg capsule 25 mg PO QID PRN Anxiety 07/19/23 07/19/23 Previous Rx's ?Medication ?Instructions ?Recorded lactulose 20 gram/30 mL oral 20 g (30 mL) PO BID 30 days #1,800 07/20/23 solution mL rifaximin 550 mg tablet (Xifaxan) 550 mg PO BID 30 days #60 tabs 07/20/23 levofloxacin 750 mg tablet 750 mg PO DAILY 7 days #7 tabs 08/25/23 prednisone 50 mg tablet 50 mg PO DAILY 5 days #5 tabs 01/06/24 promethazine 25 mg rectal 25 mg HI Q6H PRN sedation #12 ea 01/06/24 suppository meclizine 25 mg tablet 25 mg PO BID PRN dizziness 7 days 03/25/24 #14 tabs Allergies Allergy/AdvReac Type Severity Reaction Status Date / Time amoxicillin (From Augmentin) Allergy Unknown Verified 03/25/24 17:02 allergy reaction clavulanic acid (From Allergy Unknown Verified 03/25/24 17:02 Augmentin) allergy reaction oxycodone Allergy Unknown Verified 03/25/24 17:02 allergy reaction [facility] Disclaimer: The information contained in this section may have been updated after the patient was seen, as this information can be updated by other users. Medical History SIRS (systemic inflammatory response syndrome) Acute hepatic encephalopathy Bipolar 1 disorder Metabolic encephalopathy Respiratory failure Cellulitis Fall Hypothyroidism Hypertension UTI (urinary tract infection) Encephalopathy Cognitive impairment Murmur, heart Cirrhosis of liver Obstructive sleep apnea Hypothyroid Anxiety Surgical History H/O section H/O hernia repair Hx of appendectomy Family History Other No significant family history Social History (Updated 03/20/24 @ 12:29 by Umesh Harley MD) Smoking Status: Smoker, status unknown alcohol intake: never current occupational status: disabled Travel in the last 8 weeks: None Other Medical History Have you received the Flu Vaccine for this season: No Have you received the Pneumonia Vaccine: No ROS Obtained: Yes unobtainable due to mental status Constitutional Constitutional: Reports as per HPI Physical Exam General General appearance: other Comment: Patient responding to her name but otherwise not responding to questions. Appears fatigued Head Head exam: atraumatic and normocephalic Eye Eye exam: Present normal appearance, PERRL and EOMI ENT ENT exam: Present normal oropharynx and mucous membranes dry Neck Neck exam: Present normal inspection, full ROM and trachea midline Chest Chest inspection: Present normal inspection Respiratory Respiratory exam: Present normal lung sounds bilaterally Cardiovascular Cardiovascular exam: Present regular rate, normal rhythm, normal heart sounds, +S1 and +S2 Abdominal Exam Abdominal exam: Present soft and normal bowel sounds Extremities Exam Extremities exam: Present normal inspection, full ROM and normal capillary refill Neurological Exam Neurological exam: Present other (Only responsive to name she will open her eyes and say yes otherwise will not answer questions or alert and oriented question) Skin Skin exam: Present warm, dry and intact Medical Decision Making Medical Records Screening: Per USPSTF and CDC recommendations, given the prevalence of disease in our region, it is our hospital?s policy to screen for HIV and viral Hepatitis for all patients aged 18 and over and those with ongoing risk factors. Darrian Inquiry Pt receiving controlled substance: No Darrian was queried for this patient: No Vital Signs: 04/05/24 16:33 04/05/24 16:43 04/05/24 17:07 Temperature 101.6 F H Temperature Source Rectal Rectal Pulse Rate 89 Pulse Rate [Right Radial] 91 H Respiratory Rate 16 Blood Pressure 151/75 H Blood Pressure [Right Arm] 151/77 H Blood Pressure Mean Blood Pressure Mean [Right Arm] 101 Blood Pressure Source [Right Arm] Automatic Cuff Blood Pressure Position [Right Arm] Sitting 02 Sat by Pulse Oximetry 95 96 Oxygen Delivery Method Room Air Room Air 04/05/24 17:31 04/05/24 18:01 04/05/24 18:31 Temperature Temperature Source Pulse Rate 86 82 83 Pulse Rate [Right Radial] Respiratory Rate 18 20 18 Blood Pressure 154/74 H 131/69 148/66 H Blood Pressure [Right Arm] Blood Pressure Mean 100 86 Blood Pressure Mean [Right Arm] Blood Pressure Source [Right Arm] Blood Pressure Position [Right Arm] 02 Sat by Pulse Oximetry 96 94 L 95 Oxygen Delivery Method Room Air 04/05/24 19:07 04/05/24 19:30 04/05/24 19:51 Temperature Temperature Source Pulse Rate 72 78 80 Pulse Rate [Right Radial] Respiratory Rate 20 14 Blood Pressure 106/49 L 111/52 L 123/63 Blood Pressure [Right Arm] Blood Pressure Mean Blood Pressure Mean [Right Arm] Blood Pressure Source [Right Arm] Blood Pressure Position [Right Arm] 02 Sat by Pulse Oximetry 95 93 L 95 Oxygen Delivery Method Room Air 04/05/24 20:31 Temperature 99.1 F Temperature Source Tympanic Pulse Rate 98 H Pulse Rate [Right Radial] Respiratory Rate 20 Blood Pressure 143/82 H Blood Pressure [Right Arm] Blood Pressure Mean Blood Pressure Mean [Right Arm] Blood Pressure Source [Right Arm] Blood Pressure Position [Right Arm] 02 Sat by Pulse Oximetry Oxygen Delivery Method Room Air Lab Data Lab Results 04/05/24 16:43: WBC 5.5, RBC 4.70, Hgb 15.4, Hct 45.0, MCV 95.8, MCH 32.7 H, MCHC 34.1, RDW 14.7, Plt Count 102 L, MPV 7.5, Neut % (Auto) 84.4 H, Lymph % (Auto) 10.1, Custer % (Auto) 4.2, Eos % (Auto) 0.8, Baso % (Auto) 0.6, Neut # (Auto) 4.6, Lymph # (Auto) 0.6 L, Custer # (Auto) 0.2, Eos # (Auto) 0.0, Baso # (Auto) 0.0, ESR 20, PT 12.1, INR 1.09, APTT 29.4, Sodium 140, Potassium 4.4, C hloride 111 H, Carbon Dioxide 27, Anion Gap 6.4, BUN 13, Creatinine 0.80, Estimated Creat Clear 67, Estimated GFR 75, Est GFR ( Amer) 91, Glucose 105 H, Calcium 8.4, Total Bilirubin 2.2 H, AST 98 H, ALT 36, Alkaline Phosphatase 75, Total Creatine Kinase 89, C-Reactive Protein 10.7 H, Total Protein 7.4, Albumin 3.8, Globulin 3.6 H, Albumin/Globulin Ratio 1.1, Urine Color Yellow, Urine Appearance Cloudy, Urine pH 6.0, Ur Specific Marcy >= 1.030, Urine Protein 1+ A, Urine Glucose (UA) Negative, Urine Ketones Negative, Urine Blood 3+ A, Urine Nitrate Negative, Urine Bilirubin Negative, Urine Urobilinogen 0.2, Ur Leukocyte Esterase Negative, Urine RBC 5-10, Urine WBC 3-5, Ur Squamous Epith Cells 3-5, Salicylates < 1.0 L, Acetaminophen < 10 L, Plasma/Serum Alcohol < 10 04/05/24 18:08: Ammonia 161 H 04/05/24 18:31: Chlamy pneumoniae PCR Not detected, Adenovirus (PCR) Not detected, B. pertussis DNA (PCR) Not detected, Coronavirus OC43 (PCR) Not detected, Coronavirus HKU1 (PCR) Not detected, Coronavirus 229E (PCR) Not detected, SARS-CoV-2 (PCR) Not detected, Coronavirus NL63 (PCR) Not detected, Human Metapneumovir PCR Not detected, Influenza A (H1) PCR Not detected, Influ A (H1N1/09) PCR Not detected, Influenza A (H3) PCR Not detected, Influenza Type A (PCR) Not detected, Influenza Type B (PCR) Not detected, M. pneumoniae (PCR) Not detected, Parainfluenza 1 (PCR) Not detected, Parainfluenza 2 (PCR) Not detected, Parainfluenza 3 (PCR) Not detected, Parainfluenza 4 (PCR) Not detected, RSV (PCR) Not detected, Entero/Rhino (PCR) Not detected 04/05/24 18:35: Lactate 1.4 04/05/24 16:43 04/05/24 16:43 Orders (Tests/Meds): ED MEDICATIONS Generic Name Dose Route Start Last Admin Trade Name Freq PRN Reason Stop Dose Admin Acetaminophen 1,000 mg 04/05/24 19:50 Acetaminophen 325mg Tab PO 05/05/24 19:49 Q6HP PRN Fever or Mild Pain (1-3) Carvedilol 3.125 mg 04/05/24 21:00 Carvedilol 3.125mg Tablet PO 05/05/24 20:59 BID NATALIE Enoxaparin Sodium 40 mg 04/05/24 20:00 Enoxaparin 40mg/0.4ml Syringe SUBCUT 05/05/24 19:59 DAILY NATALIE Azithromycin 500 mg/ Sodium 250 mls @ 250 mls/hr 04/05/24 19:45 04/05/24 19:42 Chloride IV 04/15/24 19:44 250 mls/hr Q24H NATALIE Administration Lactulose 20 gm 04/05/24 21:00 Lactulose 20gm/30ml Udc PO 05/05/24 20:59 QID NATALIE Levothyroxine Sodium 100 mcg 04/06/24 07:00 Levothyroxine 100mcg (0.1mg) Tab PO 05/06/24 06:59 DAILYDM NATALIE Miscellaneous 1 each 04/05/24 19:45 Vancomycin Consult Request NOTAPPLIC 05/05/24 19:44 [facility]SULT [facility]Y [facility] Ondansetron HCl 4 mg 04/05/24 19:50 Ondansetron 4mg/2ml Vial IV 05/05/24 19:49 Q8HP PRN Nausea Pantoprazole Sodium 40 mg 04/05/24 21:00 Pantoprazole 40mg Tablet PO 05/05/24 20:59 HS NATALIE Rifaximin 550 mg 04/05/24 21:00 Rifaximin 550mg Tablet PO 04/15/24 20:59 TID [facility] Sodium Chloride 10 ml 04/05/24 19:44 Sodium Chloride 0.9% 10ml Flush Syringe IV 05/05/24 19:43 NEEDED PRN Maintain IV Site Spironolactone 50 mg 04/05/24 21:00 Spironolactone 25mg Tablet PO 05/05/24 20:59 BID NATALIE Thiamine HCl 100 mg 04/06/24 09:00 Thiamine 100mg Tablet PO 05/06/24 08:59 DAILY NATALIE Discontinued Medications Generic Name Dose Route Start Last Admin Trade Name Freq PRN Reason Stop Dose Admin Acetaminophen 1,000 mg 04/05/24 16:49 04/05/24 17:14 Acetaminophen 1,000mg/100ml Vial IV 04/05/24 16:50 1,000 mg ONCE ONE Administration Ceftriaxone Sodium 2 gm/ 100 mls @ 200 mls/hr 04/05/24 16:49 04/05/24 17:15 Sodium Chloride IV 04/05/24 17:18 200 mls/hr ONCE ONE Administration Sodium Chloride 1,000 mls @ 1,000 mls/hr 04/05/24 16:49 04/05/24 17:14 Sod Chlor 0.9% 1000ml Bag IV 04/05/24 17:48 1,000 mls/hr .Q1H ONE Administration Vancomycin HCl 2,000 mg/ 250 mls @ 125 mls/hr 04/05/24 19:45 Sodium Chloride IV 04/05/24 21:44 ONCE ONE Iopamidol 75 ml 04/05/24 18:57 04/05/24 18:58 Iopamidol-370 (76%);100ml Bottle IV 04/05/24 18:58 75 ml ONCE ONE Administration Sodium Chloride 10 ml 04/05/24 18:57 04/05/24 18:58 Sodium Chloride 0.9% 10ml Syr (Rad Only) IV 04/05/24 18:58 10 ml ONCE ONE Administration ORDERS Category Date Time Status CT abdomen pelvis w con Stat Cat Scan 04/05/24 17:[address] chest w con Stat Cat Scan 04/05/24 17:[address] head/brain wo con Stat Cat Scan 04/05/24 17:30 Taken POCUS Point of Care (ER Only) Stat Exams 04/05/24 18:26 Taken XR chest portable Stat Exams 04/05/24 16:51 Completed Acetaminophen Stat Lab 04/05/24 16:43 Completed Ammonia AMLAB Lab 04/06/24 06:00 Ordered Ammonia Stat Lab 04/05/24 18:08 Completed Ammonia Stat Lab 04/05/24 18:57 Ordered C-Reactive Protein Stat Lab 04/05/24 16:43 Completed Complete Blood Count Auto Diff AMLAB Lab 04/06/24 06:00 Ordered Complete Blood Count Auto Diff Stat Lab 04/05/24 16:43 Completed Comprehensive Metabolic Panel AMLAB Lab 04/06/24 06:00 Ordered Comprehensive Metabolic Panel Stat Lab 04/05/24 16:43 Completed Creatine Kinase Stat Lab 04/05/24 16:43 Completed Diarrhea 6-11 Panel, Cdiff PCR Stat Lab 04/05/24 20:29 Received Erythrocyte Sedimentation Rate Stat Lab 04/05/24 16:43 Completed Ethyl Alcohol Stat Lab 04/05/24 16:43 Completed Full Resp Panel w/COVID ([facility]) Routine Lab 04/05/24 18:31 Completed INR [Prothrombin Time INR] Stat Lab 04/05/24 16:43 Completed Lactic Acid Stat Lab 04/05/24 18:35 Completed Magnesium AMLAB Lab 04/06/24 06:00 Ordered PTT [Activated Partial Thrombo Time] Stat Lab 04/05/24 16:43 Completed Salicylate Stat Lab 04/05/24 16:43 Completed UDS [Drug Screen,Urine] Stat Lab 04/05/24 16:43 Received Urinalysis and Microscopic Stat Lab 04/05/24 16:43 Completed Blood Culture Stat Micro 04/05/24 17:05 Received VBG [Venous Blood Gas] Stat RT 04/05/24 19:39 Ordered Medical Decision Narrative: Insert review patient is a 54-year-old female presenting to the emergency department for evaluation of altered mental status, having incontinence of stool and urine. . Patient is hemodynamically stable however febrile at 101.6 and altered with an ACS of 10. Differential diagnosis includes hepatic encephalopathy, flu, COVID, head injury, among others. Workup will be conducted with hematologic labs, also CT scans head, chest, abdomen as well as UDS. Initial inventions include crystalloid bolus, analgesics, antibiotics, etc.. Initial workup reviewed by dc hematologic labs are remarkable for elevated ammonia. She has blood in urine. Otherwise workup positive for interstitial pneumonia. Dr. Holder has also seen this patient and evaluated her. We will be admitting patient for hepatic encephalopathy of talk to Dr. Hawley. Critical Care Critical Care Time Critical Care Time: No
[2024-04-05 17:00] LABS: Basophils % 0.6 % (0.1-2.0); Eosinophils % 0.8 % (0.1-12.0); Hemoglobin 15.4 g/dL (12.2-16.2); Lymphocytes # 0.6 K/mm3 (0.7-4.5); Lymphocytes % 10.1 % (10-50); Mean Corpuscular HGB Conc 34.1 g/dL (31.8-35.4); Mean Corpuscular Hemoglobin 32.7 pg (27.0-31.2); Mean Corpuscular Volume 95.8 fl (81-99); Mean Platelet Volume 7.5 fl (7.4-10.4); Microscopic, Urine URINE MICROSCOPIC (MICROSCOPIC); Monocytes # 0.2 K/mm3 (0.1-1.0); Monocytes % 4.2 % (1.7-9.3); Neutrophils # 4.6 K/mm3 (1.8-7.8); Neutrophils % 84.4 % (37.0-80.0); Platelet Count 102 K/mm3 (142-424); Red Cell Distribution Width 14.7 % (11.5-17.5); White Blood Count 5.5 K/mm3 (4.8-10.8)
--- OUTSIDE RECORDS SUMMARY | 2024-04-05 17:01 | XMS_ITS | Referral Summary ---
Author Organization [place] [facility] Address [address] [place] [address] Phone Care Team Providers Care Box Coverer Hand Name Role Phone Unavailable Primary Care Provider [...] Treatment Not on file Insurance ANTHEM PPO [facility] MEDICAID CARVE OUT [facility] COMMUNITY PLAN [place] MDR
--- OUTSIDE RECORDS SUMMARY | 2024-04-05 17:01 | XMS_ITS | Encounter Summary ---
Author Organization [place] [address] Care Team Providers Care Senior Relationship Manager Name Role Phone Unavailable Primary Care Provider Unavailabl e Reason for Visit * Reason Onset Date Comments Central Patient Navigator Outreach 10/25/2022 Appointment Needed Encounter Details Date Type Department Care Team (Late st Contact Info) Description 10/25/2022 Patient Outreach [facility] [address] [place], [place] [id number] Provider, Unknown Central Patient Navigator Outreach (Appointment [...] Needed Attempt Count: 1st Care Gaps Addressed clinical services professional: Annual Wellness Visit and Appointment Outcome: rang 3x then busy documented in this encounter Plan of Treatment Not on file documented as of this encounter Visit Diagnoses Not on filedocumented in this encounter
--- OUTSIDE RECORDS SUMMARY | 2024-04-05 17:01 | XMS_ITS | Clinical Summary ---
Author Organization [facility] Address [address] [place] [address] Phone Care Team Providers Care Esthetician/Skin Therapist Name Role Phone Unavailable Primary Care Provider [...] season) 2023 Influenza Vaccine (#1) [address] [place], [place] [id number] [facility] MEDICAID CARVE OUT [facility] COMMUNITY PLAN [place] MDR
[2024-04-05] MEDS: ACETAMINOPHEN 1,000MG/100ML VIAL 1000 MG IV (17:14)
[2024-04-05] MEDS: 0.9 % SODIUM CHLORIDE 1000ML 1,000 ML 1000 ML IV (17:14)
[2024-04-05] MEDS: CEFTRIAXONE SODIUM 2 GM in 0.9 % SODIUM CHLORIDE 100 ML IV (17:15)
[2024-04-05 17:17] LABS: Alanine Aminotransferase 36 U/L (12-78); Albumin Level 3.8 g/dl (3.5-5.0); Albumin/Globulin Ratio 1.1 (1.1-1.8); Alkaline Phosphatase 75 U/L (38-126); Anion Gap 6.4 mEq/L (5-15); Aspartate Amino Transferase 98 U/L (14-36); Bilirubin,Total 2.2 mg/dl (0.2-1.3); Bilirubin,Urine Negative (Negative); Blood Urea Nitrogen 13 mg/dl (7-17); Blood, Urine 3+ (Negative); Calcium 8.4 mg/dl (8.4-10.2); Carbon Dioxide 27 mmol/L (22.0-30.0); Chloride 111 mmol/L (98-107); Color,Urine YELLOW (Yellow); Creatine Kinase 89 U/L (30-135); Creatinine Clearance Estimated 67 mL/min (50-200); Estimated Glomerular Filt Rate 75 ml/min (>60); GFR (African American) 91 ML/MIN (>60); Globulin 3.6 g/dL (1.3-3.2); Glucose 105 mg/dl (74-100); Glucose,Urine (UA) Negative (Negative); Ketones,Urine Negative (Negative); Leukocyte Esterase,Urine Negative (Negative); Nitrate,Urine Negative (Negative); Potassium 4.4 mmoL/L (3.5-5.1); Protein,Urine 1+ (Negative); Sodium 140 mmol/L (136-145); Specific Gravity, Urine >= 1.030 (1.005-1.030); Total Protein,Serum 7.4 g/dl (6.3-8.2); Urobilinogen,Urine 0.2 EU/dl (0.2)
[2024-04-05 17:22] LABS: C-Reactive Protein 10.7 mg/L (0-4)
--- NOTE | 2024-04-05 17:30 | CT_ITS ---
PROCEDURE INFORMATION: Exam: CT Head Without Contrast Exam date and time: 04/05/2024 6:53 PM Age: 54 years old Clinical indication: Altered mental status/memory loss TECHNIQUE: Imaging protocol: Computed tomography of the head without contrast. Radiation optimization: All CT scans at this facility use at least one of these dose optimization techniques: automated exposure control; mA and/or kV adjustment per patient size (includes targeted exams where dose is matched to clinical indication); or iterative reconstruction. COMPARISON: CT HEAD/BRAIN WO CON 03/25/2024 6:47 PM FINDINGS: Limitations: Motion artifact. Brain: No acute intracranial hemorrhage, midline shift or mass effect. Diffuse brain parenchymal volume loss. Similar pattern of hypodensities within the cerebral white matter. Bilateral basal ganglia calcifications. Cerebral ventricles: No ventriculomegaly. Pituitary gland and sella: Empty sella. Paranasal sinuses: Unchanged paranasal sinus disease. Mastoid air cells: Visualized mastoid air cells are well aerated. Bones: Unremarkable. No acute fracture. Soft tissues: Unremarkable. IMPRESSION: Motion limited exam. No acute intracranial findings.
[2024-04-05 17:35] LABS: Appearance,Urine Cloudy (Clear)
--- NOTE | 2024-04-05 17:38 | CT_ITS ---
PROCEDURE INFORMATION: Exam: CT Chest With Contrast; Diagnostic Exam date and time: 04/05/2024 6:56 PM Age: 54 years old Clinical indication: Fever and other: AMS; Additional info: Altered TECHNIQUE: Imaging protocol: Diagnostic computed tomography of the chest with contrast. Radiation optimization: All CT scans at this facility use at least one of these dose optimization techniques: automated exposure control; mA and/or kV adjustment per patient size (includes targeted exams where dose is matched to clinical indication); or iterative reconstruction. Contrast material: ISOVUE; Contrast volume: 75 ml; Contrast route: IV; COMPARISON: CT ANGIO CHEST PE PROTOCOL 02/18/2024 8:54 PM FINDINGS: Trachea: Varices demonstrated at the level of the diaphragmatic crura and upper abdomen. Lungs: Bilateral ground-glass regions of opacification. Findings nonspecific however most likely reflect interstitial lung disease. An acute inflammatory process could not be entirely excluded. Pleural spaces: Unremarkable. No pneumothorax. No pleural effusion. Heart: Unremarkable. No cardiomegaly. No pericardial effusion. Coronary arteries: No evidence of coronary artery calcification Lymph nodes: Unremarkable. No enlarged lymph nodes. Vasculature: Regions of atherosclerotic vascular calcification involving the aortic arch. There is suboptimal opacification of pulmonary arteries due to contrast bolus timing. Spleen: Incomplete visualization of the upper abdomen significant for splenomegaly. Bones/joints: Unremarkable. No acute fracture. Soft tissues: Unremarkable. IMPRESSION: 1. No large or central pulmonary embolus. Evaluation of the peripheral pulmonary arteries is limited. 2. Bilateral ground-glass regions of opacification. Findings nonspecific however most likely reflect interstitial lung disease. An acute inflammatory process could not be entirely excluded. 3. Findings suggest portal hypertension. Clinically correlate.
--- NOTE | 2024-04-05 17:38 | CT_ITS ---
PROCEDURE INFORMATION: Exam: CT Abdomen And Pelvis With Contrast Exam date and time: 04/05/2024 6:56 PM Age: 54 years old Clinical indication: Fever and other: AMS; Additional info: Altered mental status TECHNIQUE: Imaging protocol: Computed tomography of the abdomen and pelvis with contrast. Radiation optimization: All CT scans at this facility use at least one of these dose optimization techniques: automated exposure control; mA and/or kV adjustment per patient size (includes targeted exams where dose is matched to clinical indication); or iterative reconstruction. Contrast material: ISOVUE; Contrast volume: 75 ml; Contrast route: IV; COMPARISON: CT ABDOMEN PELVIS W CON 10/31/2023 10:09 PM FINDINGS: Diaphragm: Varices demonstrated at the level of the diaphragmatic Liver: Nodular contour of the liver again demonstrated. Gallbladder and biliary ducts: Cholecystectomy Pancreas: Pancreas unremarkable Spleen: Splenomegaly Adrenal glands: Normal. No mass. Kidneys and ureters: Persistent right renal cortical hypodensity. Stomach and bowel: Colonic diverticulosis. Mild colonic wall thickening with mild pericolonic edema and inflamed diverticulum involving the distal descending and sigmoid colon compatible with acute diverticulitis. Appendix: No evidence of appendicitis. Intraperitoneal space: Unremarkable. No free air. No significant fluid collection. Vasculature: Gastric varices. Abdominal wall varices again demonstrated. Lymph nodes: Unremarkable. No enlarged lymph nodes. Urinary bladder: Unremarkable as visualized. Reproductive: Unremarkable as visualized. Bones/joints: Unremarkable. No acute fracture. Soft tissues: Unremarkable. IMPRESSION: 1. Findings compatible with portal hypertension and cirrhosis. Findings do not appear significantly changed. 2. Colonic diverticulosis. Mild colonic wall thickening with mild pericolonic edema and inflamed diverticulum involving the distal descending and sigmoid colon compatible with acute diverticulitis. 3. Persistent 12 mm right renal cortical lesion . Recommend follow-up with a renal ultrasound for further evaluation.
[2024-04-05 17:47] LABS: Erythrocyte Sedimentation Rate 20 mm/hr (0-30)
[2024-04-05 18:21] LABS: Ammonia 161 umol/L (9-30)
[2024-04-05 18:32] LABS: Acetaminophen < 10 ug/ml (10-30); Ethyl Alcohol < 10 mg/dl (0-10); Salicylate < 1.0 mg/dL (2.0-20.0)
[2024-04-05 18:49] LABS: Adenovirus,PCR Not Detected (NotDetected); Bordetella Pertussis Not Detected (NotDetected); Chlamydophila Pneumoniae, PCR Not Detected (NotDetected); Coronavirus 19, PCR Not Detected (NotDetected); Coronavirus 229E Not Detected (NotDetected); Coronavirus NL63 Not Detected (NotDetected); Coronavirus OC43 Not Detected (NotDetected); Coronovirus HKU1,PCR Not Detected (NotDetected); Human Metapneumovirus Not Detected (NotDetected); Influenza A, PCR Not Detected (NotDetected); Influenza AH1, 2009 Not Detected (NotDetected); Influenza AH1, PCR Not Detected (NotDetected); Influenza AH3,PCR Not Detected (NotDetected); Influenza B, PCR Not Detected (NotDetected); Mycoplasma Pneumoniae, PCR Not Detected (NotDetected); Parainfluenza 1, PCR Not Detected (NotDetected); Parainfluenza 2, PCR Not Detected (NotDetected); Parainfluenza 3, PCR Not Detected (NotDetected); Parainfluenza 4, PCR Not Detected (NotDetected); Respiratory Syncytial Virus Not Detected (NotDetected); Rhinovirus/Enterovirus Not Detected (NotDetected)
[2024-04-05] MEDS: IOPAMIDOL-370 (76%);100ML BOTTLE 75 ML IV (18:58)
[2024-04-05] MEDS: SODIUM CHLORIDE 0.9% 10ML SYR (RAD ONLY) 10 ML IV (18:58)
--- NOTE | 2024-04-05 19:04 | PC.NURSE ---
PT ARRIVED BACK TO ROOM FROM CT
[2024-04-05 19:05] LABS: Lactic Acid 1.4 mmol/L (0.7-2.1)
[2024-04-05 19:39] LABS: Activated Partial Thrombo Time 29.4 seconds (22.8-30.6); INR 1.09 (0.9-1.1); Prothrombin Time 12.1 seconds (10.1-12.5)
[2024-04-05] MEDS: AZITHROMYCIN 500 MG in 0.9 % SODIUM CHLORIDE 250 ML 250 MG IV (19:42)
--- OUTSIDE RECORDS SUMMARY | 2024-04-05 19:58 | XMS_ITS | Encounter Summary ---
Author Organization [place] [address] Care Team Providers Care Java User Interface Developer Name Role Phone Unavailable Primary Care Provider Unavailabl e Reason for Visit * Reason Onset Date Comments Central Patient Navigator Outreach 10/25/2022 Appointment Needed Encounter Details Date Type Department Care Team (Late st Contact Info) Description 10/25/2022 Patient Outreach [facility] [address] [place], [place] [id number] Provider, Unknown Central Patient Navigator Outreach (Appointment [...] Needed Attempt Count: 1st Care Gaps Addressed director of solutions architecture: Annual Wellness Visit and Appointment Outcome: rang 3x then busy documented in this encounter Plan of Treatment Not on file documented as of this encounter Visit Diagnoses Not on filedocumented in this encounter
--- OUTSIDE RECORDS SUMMARY | 2024-04-05 19:58 | XMS_ITS | Clinical Summary ---
Author Organization [facility] Address [address] [place] [address] Phone Care Team Providers Care Boiler Out Name Role Phone Unavailable Primary Care Provider [...] season) 2023 Influenza Vaccine (#1) [address] [place], [place] [id number] [facility] MEDICAID CARVE OUT [facility] COMMUNITY PLAN [place] MDR
--- OUTSIDE RECORDS SUMMARY | 2024-04-05 19:58 | XMS_ITS | Referral Summary ---
Author Organization [place] [facility] Address [address] [place] [address] Phone Care Team Providers Care Manager Scheduling Name Role Phone Unavailable Primary Care Provider [...] Treatment Not on file Insurance ANTHEM PPO [facility] MEDICAID CARVE OUT [facility] COMMUNITY PLAN [place] MDR
[2024-04-05] MEDS: VANCOMYCIN CONSULT REQUEST 1 EACH NOTAPPLIC (20:22)
--- NOTE | 2024-04-05 20:23 | PC.NURSE ---
[facility] was paged at this time concerning a vancomycin consult ordered for the patient.
[2024-04-05 20:37] LABS: Adenovirus F 40/41, stool Not Detected (NotDetected); Astrovirus Not Detected (NotDetected); Campylobacter Not Detected (NotDetected); Clostridium Difficile A/B, PCR Not Detected (NotDetected); Cryptosporidium Not Detected (NotDetected); Cyclospora Cayetanesis Not Detected (NotDetected); Entamoeba histolytica Not Detected (NotDetected); Enteroaggregative E coli Not Detected (NotDetected); Enteropathogenic E coli Not Detected (NotDetected); Enterotoxigenic E coli Not Detected (NotDetected); Giardia lamblia Not Detected (NotDetected); Plesimonas Shigalloides, PCR Not Detected (NotDetected); Rotavirus A Not Detected (NotDetected); Salmonella, PCR Not Detected (NotDetected); Sapovirus Not Detected (NotDetected); Shiga-like toxin E coli Not Detected (NotDetected); Shigella Enterovasive E coli Not Detected (NotDetected); Vibrio Cholerae Not Detected (NotDetected); Vibrio, PCR Not Detected (NotDetected); Yersinia Entercolitica, PCR Not Detected (NotDetected)
[2024-04-05 20:37] LABS: Barbiturates Screen,Urine Negative ng/ml (<200); Benzodiazepines Screen,Urine Negative ng/ml (<200)
--- NOTE | 2024-04-05 20:37 | PC.NURSE ---
Patient arrived to floor via stretcher from ED at 2034.
[2024-04-05 20:38] LABS: Amphetamine/Metha Screen,Urine Negative ng/ml (<1000); Methadone Screen,Urine Negative ng/ml (<300)
[2024-04-05 20:39] LABS: Cannabinoid Screen,Urine Negative ng/ml (<50)
[2024-04-05 20:40] LABS: Cocaine Screen,Urine Negative ng/ml (<300); Opiate Screen,Urine Negative ng/ml (<300)
[2024-04-05 20:41] LABS: Phencyclidine Screen,Urine Negative ng/ml (<25)
[2024-04-05] MEDS: ENOXAPARIN 40MG/0.4ML SYRINGE 40 MG SUBCUT (20:50)
[2024-04-05] MEDS: LACTULOSE 20GM/30ML UDC 20 GM PO (20:50)
[2024-04-05] MEDS: CARVEDILOL 3.125MG TABLET 3.125 MG PO (20:50)
[2024-04-05] MEDS: PANTOPRAZOLE 40MG TABLET 40 MG PO (20:50)
[2024-04-05] MEDS: SPIRONOLACTONE 25MG TABLET 50 MG PO (20:50)
[2024-04-05 21:02] LABS: Ammonia 104 umol/L (9-30)
--- NOTE | 2024-04-05 21:08 | EXP.HP ---
History of Present Illness *Admission Date: 04/05/24 *Reason for visit:: Altered mental status *History of present illness: This is a 54-year-old female that presents to [facility] emergency department from her residential facility [facility] for altered mental status. History is acquired from the electronic medical record and ED staff. The patient had a similar presentation and admission in June 2023. Her past medical history significant for cirrhosis without ascites, splenomegaly, portal hypertension and gastric varices. She has cognitive impairment and mood disorder diagnoses and resides at [facility] residential living. Staff identify 24 to 48 hours of mental status changes with associated diarrhea. In the ED she was febrile and tachycardic with concerns for aspiration pneumonia on imaging. Her CBC identified normal white blood cell count with chronic thrombocytopenia related to her chronic splenomegaly. Her lactic acid was normal. Her ammonia level is elevated at 161. Her calculated MELD-Na=12. [facility] Medical History (Updated 04/05/24 @ 21:32 by Supa Gonzalez MD) Cirrhosis of liver Bipolar 1 disorder Hypothyroidism Hypertension Cognitive impairment Murmur, heart Obstructive sleep apnea Hypothyroid Anxiety Surgical History H/O section H/O hernia repair Hx of appendectomy Family History Other No significant family history Social History Smoking Status: Smoker, status unknown alcohol intake: never current occupational status: disabled Travel in the last 8 weeks: None Other Medical History Have you received the Flu Vaccine for this season: No Have you received the Pneumonia Vaccine: No Review of Systems Review of Systems Review of systems:: pertinent systems reviewed and negative unless documented below Meds Home Medications and Allergies Home Medications ?Medication ?Instructions ?Recorded ?Confirmed ?Type amitriptyline 50 mg tablet 50 mg PO HS 05/02/22 07/18/23 History carvedilol 3.125 mg tablet 3.125 mg PO BID 05/02/22 07/18/23 History duloxetine 30 mg capsule,delayed 30 mg PO DAILY 05/02/22 07/18/23 History release levothyroxine 100 mcg tablet 100 mcg PO AM 05/02/22 07/18/23 History pantoprazole 40 mg tablet,delayed 40 mg PO DAILY 05/02/22 07/18/23 History release melatonin 5 mg tablet 5 mg PO HS 05/03/22 07/18/23 History oxcarbazepine 300 mg tablet 300 mg PO BID 02/20/23 07/18/23 History amlodipine 5 mg tablet 5 mg PO HS 02/21/23 07/18/23 History pyridoxine (vitamin B6) 50 mg 50 mg PO DAILY 02/21/23 07/18/23 History tablet acetaminophen 325 mg tablet 325 mg PO QID PRN Pain 05/14/23 07/18/23 History cyclobenzaprine 5 mg tablet 5 mg PO TID PRN Muscle Pain 05/14/23 07/18/23 History ferrous sulfate 324 mg (65 mg 324 mg PO DAILY 05/14/23 07/19/23 History iron) tablet,delayed release albuterol sulfate 90 mcg/actuation 1 puff inhalation Q6H PRN 07/18/23 07/18/23 History aerosol inhaler Shortness Of Breath hydroxyzine pamoate 25 mg capsule 25 mg PO QID PRN Anxiety 07/19/23 07/19/23 History lactulose 20 gram/30 mL oral 20 g (30 mL) PO BID 30 days #1,800 07/20/23 Rx solution mL rifaximin 550 mg tablet (Xifaxan) 550 mg PO BID 30 days #60 tabs 07/20/23 Rx levofloxacin 750 mg tablet 750 mg PO DAILY 7 days #7 tabs 08/25/23 Rx prednisone 50 mg tablet 50 mg PO DAILY 5 days #5 tabs 01/06/24 Rx promethazine 25 mg rectal 25 mg NJ Q6H PRN sedation #12 ea 01/06/24 Rx suppository meclizine 25 mg tablet 25 mg PO BID PRN dizziness 7 days 03/25/24 Rx #14 tabs New Prescriptions to Start Prescriptions: Allergies Allergy/AdvReac Type Severity Reaction Status Date / Time amoxicillin (From Augmentin) Allergy Unknown Verified 03/25/24 17:02 allergy reaction clavulanic acid (From Allergy Unknown Verified 03/25/24 17:02 Augmentin) allergy reaction oxycodone Allergy Unknown Verified 03/25/24 17:02 allergy reaction Exam Data for Last 24 hours Vital signs and Labs for Last 24 Hours: Temp Pulse Resp BP Pulse Ox O2 Del Method 98.3 F 84 17 102/60 L 97 Room Air 04/05/24 20:56 04/05/24 20:56 04/05/24 20:56 04/05/24 20:56 04/05/24 20:56 04/05/24 20:56 Laboratory Results - last 24 hr 04/05/24 16:43: WBC 5.5, RBC 4.70, Hgb 15.4, Hct 45.0, MCV 95.8, MCH 32.7 H, MCHC 34.1, RDW 14.7, Plt Count 102 L, MPV 7.5, Neut % (Auto) 84.4 H, Lymph % (Auto) 10.1, [place] % (Auto) 4.2, Eos % (Auto) 0.8, Baso % (Auto) 0.6, Neut # (Auto) 4.6, Lymph # (Auto) 0.6 L, [place] # (Auto) 0.2, Eos # (Auto) 0.0, Baso # (Auto) 0.0, ESR 20, PT 12.1, INR 1.09, APTT 29.4, Sodium 140, Potassium 4.4, Chloride 111 H, Carbon Dioxide 27, Anion Gap 6.4, BUN 13, Creatinine 0.80, Estimated Creat Clear 67, Estimated GFR 75, Est GFR ( Amer) 91, Glucose 105 H, Calcium 8.4, Total Bilirubin 2.2 H, AST 98 H, ALT 36, Alkaline Phosphatase 75, Total Creatine Kinase 89, C-Reactive Protein 10.7 H, Total Protein 7.4, Albumin 3.8, Globulin 3.6 H, Albumin/Globulin Ratio 1.1, Urine Color Yellow, Urine Appearance Cloudy, Urine pH 6.0, Ur Specific [place] >= 1.030, Urine Protein 1+ A, Urine Glucose (UA) Negative, Urine Ketones Negative, Urine Blood 3+ A, Urine Nitrate Negative, Urine Bilirubin Negative, Urine Urobilinogen 0.2, Ur Leukocyte Esterase Negative, Urine RBC 5-10, Urine WBC 3-5, Ur Squamous Epith Cells 3-5, Salicylates < 1.0 L, Urine Opiates Screen Negative, Urine Methadone Screen Negative, Acetaminophen < 10 L, Ur Barbituates Screen Negative, Ur Phencyclidine Scrn Negative, Ur Amphetamines Screen Negative, U Benzodiazepines Scrn Negative, Urine Cocaine Screen Negative, U Marijuana (THC) Screen Negative, Plasma/Serum Alcohol < 10 04/05/24 18:08: Ammonia 161 H 04/05/24 18:31: Chlamy pneumoniae PCR Not detected, Adenovirus (PCR) Not detected, B. pertussis DNA (PCR) Not detected, Coronavirus OC43 (PCR) Not detected, Coronavirus HKU1 (PCR) Not detected, Coronavirus 229E (PCR) Not detected, SARS-CoV-2 (PCR) Not detected, Coronavirus NL63 (PCR) Not detected, Human Metapneumovir PCR Not detected, Influenza A (H1) PCR Not detected, Influ A (H1N1/09) PCR Not detected, Influenza A (H3) PCR Not detected, Influenza Type A (PCR) Not detected, Influenza Type B (PCR) Not detected, M. pneumoniae (PCR) Not detected, Parainfluenza 1 (PCR) Not detected, Parainfluenza 2 (PCR) Not detected, Parainfluenza 3 (PCR) Not detected, Parainfluenza 4 (PCR) Not detected, RSV (PCR) Not detected, Entero/Rhino (PCR) Not detected 04/05/24 18:35: Lactate 1.4 04/05/24 20:45: Ammonia 104 H I & O for Last 24 hours: Intake & Output 04/02/24 04/03/24 04/04/24 04/05/24 23:59 23:59 23:59 23:59 Weight 102.739 kg Constitutional Constitutional: no acute distress, morbidly obese, chronically ill appearing and cooperative *Routine HEENT Exam Head: Present normocephalic and atraumatic Eye: Present EOMI and PERRL; Absent nystagmus ENT: Present mucous membranes dry *Routine Neck Exam Neck: Present supple and trachea midline; Absent JVD or lymphadenopathy *Routine Respiratory Exam Respiratory: Present rhonchi, normal respiratory effort and symmetric chest movement; Absent rales or respiratory distress *Routine Cardiovascular Exam Cardiovascular: Present RRR and murmur *Routine Abdominal Exam Abdominal: Present soft and normoactive bowel sounds; Absent tenderness *Routine Rectal Exam Rectal:: deferred *Routine Genitalia Exam Genitalia:: deferred *Routine Extremities Exam Extremities: Present edema, full ROM and normal capillary refill; Absent cyanosis *Routine Skin Exam Skin: Present intact; Absent petechiae, wounds or rash *Routine Neurological Exam Neurological: Present alert, altered mental status, moving all extremities, vision grossly intact and hearing grossly intact; Absent oriented X3, sensory deficit or motor deficit Routine Psychiatric Exam Psychiatric: Present cooperative Assessment and Plan *Assessment and plan (1) Sepsis: Status: Acute Qualifiers: Hepatic coma status: without hepatic coma Category: Medical Code(s): A41.9 - Sepsis, unspecified organism (2) Aspiration pneumonitis: Status: Acute Category: Medical Code(s): J69.0 - Pneumonitis due to inhalation of food and vomit (3) Acute hepatic encephalopathy: Status: Acute Category: Medical Code(s): K76.82 - Hepatic encephalopathy (4) Cirrhosis of liver: Status: Acute Qualifiers: Hepatic cirrhosis type: unspecified hepatic cirrhosis Ascites presence: unspecified Qualified Code(s): K74.60 - Unspecified cirrhosis of liver Category: Medical Code(s): K74.60 - Unspecified cirrhosis of liver (5) Hyperammonemia: Status: Acute Category: Medical Code(s): E72.20 - Disorder of urea cycle metabolism, unspecified (6) Obstructive sleep apnea: Status: Acute Category: Medical Code(s): G47.33 - Obstructive sleep apnea (adult) (pediatric) (7) Cognitive impairment: Status: Acute Category: Medical Code(s): R41.89 - Other symptoms and signs involving cognitive functions and awareness Plan This is a 54-year-old female with cognitive impairment and mood disorder from [facility] who presented with metabolic encephalopathy and presenting ammonia level 161 with known history of cirrhosis without ascites. Concerns for aspiration pneumonitis on imaging with sepsis presentation. Problems addressed as follows: Sepsis, present on admission Tachycardic, febrile, source identified Blood cultures pending Trending labs and inflammatory markers Lactic acid normal Caution with IV fluids IV antibiotic therapy Aspiration pneumonitis FERNANDEZ/OHS/BMI 40 Pulse oximetry monitoring Oxygen therapy to maintain appropriate oxygen saturations NIPPV therapy CT chest with pneumonitis Trending labs and inflammatory markers Aspiration precautions IV Rocephin Acute hepatic encephalopathy (grade 2) Hyperammonemia Cirrhosis without ascites Splenomegaly Portal hypertension Gastric and esophageal varices MELD-Na=12 Caution with IV fluids Lactulose therapy Rifaximin therapy Beta-kimmie therapy Aldosterone antagonist therapy PPI therapy Trending ammonia and LFTs Cognitive impairment Mood disorder Routine nursing interaction Reconciling home meds The length of stay for this patient will be 2 midnights or greater due to above diagnoses.
[2024-04-05 21:42] LABS: VBG Base Excess -2.5 mmol/L (-2.4-2.3); VBG HCO3 21.5 mmol/L (23-30); VBG Oxygen Saturation 97.8 % (50-70); VBG PCO2 31.9 mmol/L (35-51); VBG PH 7.45 mmol/L (7.31-7.41); VBG PO2 97.3 mmol/L (28-40); VBG Total CO2 22.5 mmol/L (23-27)
[2024-04-05 21:43] LABS: Lactate Venous 2.2 mmol/L (0.4-2.0)
[2024-04-05 22:45] LABS: POC Glucose,Bedside 82 (70-110)
[2024-04-06] VITALS (11 sets, daily range): BP systolic 121–159; BP diastolic 52–74; PULSE 64–79; RESP 16–19; TEMP 36.6–37.1; O2SAT 94–99; BMI 40.1
[2024-04-06 01:43] LABS: Reflex Lactic Add Lactic Reflex
[2024-04-06 03:25] LABS: Lactic Acid Follow Up (RFLX 1) 1.2 mmol/L (0.7-2.1)
[2024-04-06] MEDS: ACETAMINOPHEN 325MG TAB 1000 MG PO (04:30)
--- NOTE | 2024-04-06 04:59 | PC.NURSE ---
Ms Trish Oconnor, who resides at [facility], was newly admitted this shift on behalf of the following documented diagnosis: hepatic encephalopathy. Patient has been found to be alert only to her self this shift and can recall her birthday. She can answer a few questions with appropriate and coherent replies; at other times, the patient would become hesitant, and she appeared to be unable to answer. Patient has bilateral dilated pupils. Upon auscultation, the patient's lung sounds were clear, S1/S2 heart sounds could be heard (with a murmur), and bowel sounds were active. Upon palpation, patient's abdomen was large but non-tender and soft. She could not recall her last bowel movement. Silver striae was noted across her abdomen. Upon her initial arrival to the floor, the patient was restless; as the night went on, the patient appeared to become calmer, but still presented intermittent shivering and jitteriness. Vital signs have been stable this shift. Scheduled medications were administered as appropriately per JUN. Patient was able to swallow adequate amounts of ice water without difficulty. She has been complaining of increased thirst. Patient was assisted (x2) to the bathroom per her request this shift; patient's gait was satisfactory going to the bathroom but unsteady going back to the bed. The purewick was removed for the night; a brief is in place. She was given Tylenol once per MAR (at 04:30) due to a headache. At this time, the patient is resting supine in bed with eyes closed, respirations even and unlabored, and no apparent distress. She does not have any further complaints. No acute changes noted thus far. Bed alarm on. Call light within reach.
[2024-04-06] MEDS: LEVOTHYROXINE 100MCG (0.1MG) TAB 100 MCG PO (06:40)
[2024-04-06 06:41] LABS: POC Glucose,Bedside 77 (70-110)
[2024-04-06 08:11] LABS: Basophils % 0.6 % (0.1-2.0); Eosinophils # 0.1 K/mm3 (0.0-0.4); Eosinophils % 1.5 % (0.1-12.0); Hematocrit 38.5 % (37.0-47.0); Lymphocytes # 0.8 K/mm3 (0.7-4.5); Lymphocytes % 24.1 % (10-50); Mean Corpuscular HGB Conc 34.4 g/dL (31.8-35.4); Mean Corpuscular Volume 96.1 fl (81-99); Mean Platelet Volume 7.7 fl (7.4-10.4); Monocytes # 0.2 K/mm3 (0.1-1.0); Monocytes % 6.9 % (1.7-9.3); Neutrophils # 2.3 K/mm3 (1.8-7.8); Platelet Count 87 K/mm3 (142-424); Red Cell Distribution Width 14.6 % (11.5-17.5); White Blood Count 3.4 K/mm3 (4.8-10.8)
[2024-04-06 08:16] LABS: Chloride 112 mmol/L (98-107); Sodium 138 mmol/L (136-145)
[2024-04-06 08:17] LABS: Potassium 3.1 mmoL/L (3.5-5.1)
[2024-04-06 08:19] LABS: Alanine Aminotransferase 32 U/L (12-78); Anion Gap 4.1 mEq/L (5-15); Aspartate Amino Transferase 66 U/L (14-36); Blood Urea Nitrogen 11 mg/dl (7-17); Carbon Dioxide 25 mmol/L (22.0-30.0); Creatinine Clearance Estimated 64 mL/min (50-200); Estimated Glomerular Filt Rate 75 ml/min (>60); GFR (African American) 91 ML/MIN (>60)
[2024-04-06 08:20] LABS: Alkaline Phosphatase 73 U/L (38-126); Bilirubin,Total 1.7 mg/dl (0.2-1.3); Glucose 78 mg/dl (74-100); Magnesium 1.7 mg/dl (1.6-2.3)
[2024-04-06 08:23] LABS: Ammonia 57 umol/L (9-30)
[2024-04-06] MEDS: RIFAXIMIN 550MG TABLET 550 MG PO ×2 (08:38→13:59)
[2024-04-06] MEDS: CARVEDILOL 3.125MG TABLET 3.125 MG PO ×2 (08:38→20:42)
[2024-04-06] MEDS: ENOXAPARIN 40MG/0.4ML SYRINGE 40 MG SUBCUT ×2 (08:38→20:42)
[2024-04-06] MEDS: LACTULOSE 20GM/30ML UDC 20 GM PO ×4 (08:38→20:42)
[2024-04-06] MEDS: SPIRONOLACTONE 25MG TABLET 50 MG PO ×2 (08:38→20:42)
[2024-04-06] MEDS: THIAMINE 100MG TABLET 100 MG PO (08:38)
[2024-04-06] MEDS: METRONIDAZ/SOD CHL 500 MG/100 ML PIGGYBACK 100 MG IV ×2 (08:48→16:06)
[2024-04-06 08:58] LABS: Hemoglobin 13.2 g/dL (12.2-16.2)
--- NOTE | 2024-04-06 09:57 | P.CONPHA_ITS ---
Pharmacy Intervention Comments: [facility]
--- NOTE | 2024-04-06 09:57 | HMH.PHAINT1 ---
Pharmacy Intervention Comments: [facility]
[2024-04-06 11:39] LABS: POC Glucose,Bedside 89 (70-110)
[2024-04-06] MEDS: IPRATROPIUM/ALBUTEROL 3 ML NEB IH ×3 (13:23→22:59)
--- NOTE | 2024-04-06 14:18 | EXP.PN ---
Subjective *Date: 04/06/24 *Time: 14:47 Exam Data for Last 24 hours Vital signs and Labs for Last 24 Hours: Temp Pulse Resp BP Pulse Ox O2 Del Method 98.1 F 69 18 159/74 H 96 Room Air 04/06/24 11:28 04/06/24 13:24 04/06/24 11:28 04/06/24 11:28 04/06/24 13:24 04/06/24 13:24 Laboratory Results - last 24 hr 04/05/24 16:43: WBC 5.5, RBC 4.70, Hgb 15.4, Hct 45.0, MCV 95.8, MCH 32.7 H, MCHC 34.1, RDW 14.7, Plt Count 102 L, MPV 7.5, Neut % (Auto) 84.4 H, Lymph % (Auto) 10.1, [place] % (Auto) 4.2, Eos % (Auto) 0.8, Baso % (Auto) 0.6, Neut # (Auto) 4.6, Lymph # (Auto) 0.6 L, [place] # (Auto) 0.2, Eos # (Auto) 0.0, Baso # (Auto) 0.0, ESR 20, PT 12.1, INR 1.09, APTT 29.4, Sodium 140, Potassium 4.4, Chloride 111 H, Carbon Dioxide 27, Anion Gap 6.4, BUN 13, Creatinine 0.80, Estimated Creat Clear 67, Estimated GFR 75, Est GFR ( Amer) 91, Glucose 105 H, Calcium 8.4, Total Bilirubin 2.2 H, AST 98 H, ALT 36, Alkaline Phosphatase 75, Total Creatine Kinase 89, C-Reactive Protein 10.7 H, Total Protein 7.4, Albumin 3.8, Globulin 3.6 H, Albumin/Globulin Ratio 1.1, Urine Color Yellow, Urine Appearance Cloudy, Urine pH 6.0, Ur Specific [place] >= 1.030, Urine Protein 1+ A, Urine Glucose (UA) Negative, Urine Ketones Negative, Urine Blood 3+ A, Urine Nitrate Negative, Urine Bilirubin Negative, Urine Urobilinogen 0.2, Ur Leukocyte Esterase Negative, Urine RBC 5-10, Urine WBC 3-5, Ur Squamous Epith Cells 3-5, Salicylates < 1.0 L, Urine Opiates Screen Negative, Urine Methadone Screen Negative, Acetaminophen < 10 L, Ur Barbituates Screen Negative, Ur Phencyclidine Scrn Negative, Ur Amphetamines Screen Negative, U Benzodiazepines Scrn Negative, Urine Cocaine Screen Negative, U Marijuana (THC) Screen Negative, Plasma/Serum Alcohol < 10 04/05/24 18:08: Ammonia 161 H 04/05/24 18:31: Chlamy pneumoniae PCR Not detected, Adenovirus (PCR) Not detected, B. pertussis DNA (PCR) Not detected, Coronavirus OC43 (PCR) Not detected, Coronavirus HKU1 (PCR) Not detected, Coronavirus 229E (PCR) Not detected, SARS-CoV-2 (PCR) Not detected, Coronavirus NL63 (PCR) Not detected, Human Metapneumovir PCR Not detected, Influenza A (H1) PCR Not detected, Influ A (H1N1/09) PCR Not detected, Influenza A (H3) PCR Not detected, Influenza Type A (PCR) Not detected, Influenza Type B (PCR) Not detected, M. pneumoniae (PCR) Not detected, Parainfluenza 1 (PCR) Not detected, Parainfluenza 2 (PCR) Not detected, Parainfluenza 3 (PCR) Not detected, Parainfluenza 4 (PCR) Not detected, RSV (PCR) Not detected, Entero/Rhino (PCR) Not detected 04/05/24 18:35: Lactate 1.4 04/05/24 19:39: VBG pH 7.45 H, VBG pCO2 31.9 L, VBG pO2 97.3 H, VBG HCO3 21.5 L, VBG Total CO2 22.5 L, VBG O2 Saturation 97.8 H, VBG Base Excess -2.5 L, VBG Lactic Acid 2.2 H 04/05/24 20:29: Stl Aeromonas (PCR) Not detected, Stl C. cayetanensis PCR Not detected, Stool Rotavirus (PCR) Not detected, Stl Adenov F 40/41 PCR Not detected, Stool Astrovirus (PCR) Not detected, Stool Campylobacter PCR Not detected, Stl C.difficile Tox PCR Not detected, Stool Cryptosporidium PCR Not detected, Stl E.coli Shiga Tox PCR Not detected, Stool E coli O157 PCR Not detected, Stl Enterotoxigenic E PCR Not detected, Stool EPEC (PCR) Not detected, Stool EAEC (PCR) Not detected, Stl E. histolytica PCR Not detected, Stool Giardia Lamblia PCR Not detected, Stool Salmonella PCR Not detected, Stool Sapovirus (PCR) Not detected, Stl P. shigelloides PCR Not detected, Stl Shigella/EIEC PCR Not detected, St Y.enterocolitica PCR Not detected, Stool Vibrio (PCR) Not detected, Stl Vibrio cholerae PCR Not detected, Stl Norovirus GI/GII PCR Not detected 04/05/24 20:45: Ammonia 104 H 04/05/24 22:36: POC Glucose 82 04/06/24 03:10: Lactate 1.2 04/06/24 05:37: POC Glucose 77 04/06/24 07:30: WBC 3.4 L D, RBC 4.00 L, Hgb 13.2 D, Hct 38.5, MCV 96.1, MCH 33.0 H, MCHC 34.4, RDW 14.6, Plt Count 87 L, MPV 7.7, Neut % (Auto) 67.0, Lymph % (Auto) 24.1, [place] % (Auto) 6.9, Eos % (Auto) 1.5, Baso % (Auto) 0.6, Neut # (Auto) 2.3, Lymph # (Auto) 0.8, [place] # (Auto) 0.2, Eos # (Auto) 0.1, Baso # (Auto) 0.0, Sodium 138, Potassium 3.1 L D, Chloride 112 H, Carbon Dioxide 25, Anion Gap 4.1 L, BUN 11, Creatinine 0.80, Estimated Creat Clear 64, Estimated GFR 75, Est GFR ( Amer) 91, Glucose 78 D, Calcium 8.0 L, Magnesium 1.7, Total Bilirubin 1.7 H, AST 66 H D, ALT 32, Alkaline Phosphatase 73, Ammonia 57 H, Total Protein 6.0 L, Albumin 3.0 L D, Globulin 3.0, Albumin/Globulin Ratio 1.0 L 04/06/24 11:32: POC Glucose 89 I & O for Last 24 hours: Intake & Output 04/03/24 04/04/24 04/05/24 04/06/24 23:59 23:59 23:59 23:59 Intake Total 1941 Output Total 0 / 0 Balance 1941 Weight 102.739 kg 102.739 kg Constitutional Constitutional: no acute distress Comments: Mild confusion, slowed speech. *Routine HEENT Exam Head: Present normocephalic Eye: Present EOMI and PERRL ENT: Present mucous membranes moist *Routine Neck Exam Neck: Present supple; Absent lymphadenopathy *Routine Respiratory Exam Respiratory: Present CTA bilaterally *Routine Cardiovascular Exam Cardiovascular: Present RRR *Routine Abdominal Exam Abdominal: Present soft and normoactive bowel sounds; Absent tenderness *Routine Extremities Exam Extremities: Absent cyanosis, clubbing or edema *Routine Skin Exam Skin: Present warm; Absent rash *Routine Neurological Exam Neurological: Present alert Assessment and Plan *Assessment and plan (1) Sepsis: Status: Acute Qualifiers: Hepatic coma status: without hepatic coma Category: Medical Code(s): A41.9 - Sepsis, unspecified organism (2) Aspiration pneumonitis: Status: Acute Category: Medical Code(s): J69.0 - Pneumonitis due to inhalation of food and vomit (3) Acute hepatic encephalopathy: Status: Acute Category: Medical Code(s): K76.82 - Hepatic encephalopathy (4) Cirrhosis of liver: Status: Acute Qualifiers: Ascites presence: unspecified Hepatic cirrhosis type: unspecified hepatic cirrhosis Qualified Code(s): K74.60 - Unspecified cirrhosis of liver Category: Medical Code(s): K74.60 - Unspecified cirrhosis of liver (5) Hyperammonemia: Status: Acute Category: Medical Code(s): E72.20 - Disorder of urea cycle metabolism, unspecified (6) Obstructive sleep apnea: Status: Acute Category: Medical Code(s): G47.33 - Obstructive sleep apnea (adult) (pediatric) (7) Cognitive impairment: Status: Acute Category: Medical Code(s): R41.89 - Other symptoms and signs involving cognitive functions and awareness Plan This is a 54-year-old female with cognitive impairment and mood disorder from [facility] who presented with metabolic encephalopathy and presenting ammonia level 161 with known history of cirrhosis without ascites. Concerns for aspiration pneumonitis on imaging with sepsis presentation. Problems addressed as follows: #Sepsis #Acute diverticulitis #Aspiration pneumonitis ? CT chest shows evidence of aspiration pneumonitis, presented with tachycardia, fever, leukopenia. ? CT abdomen/pelvis shows evidence of acute diverticulitis without severe signs including perforation, fistula. ? Aspiration likely in the setting of hepatic encephalopathy, which is improved today. No signs of further aspiration at this time. ? Continue ceftriaxone, Flagyl. ? Follow-up blood cultures. ? Speech therapy consulted, pending recommendations. #Acute hepatic encephalopathy (grade 2) #Hyperammonemia #Cirrhosis without ascites #Splenomegaly #Portal hypertension #Gastric and esophageal varices ? Patient states she was discontinued from lactulose about a month ago, though patient is not the best historian at this time. ? No signs of volume overload. ? Initial ammonia 104, improved to 57 today. Encephalopathy has also improved today, but continues to have slowed speech and asterixis. But pleasant and conversational. ? Continue lactulose 20 mg 4 times daily. Patient is having bowel movements, titrate to 2-3 bowel movements a day. ? Continue home rifaximin 550 mg 2 times daily. ? Continue home spironolactone 50 mg twice daily. #Physical deconditioning ? PT/OT consulted, pending recommendations. #Cognitive impairment #Mood disorder ? Will continue to hold home psychotropic medications until encephalopathy has improved. Hold home oxcarbazepine, amitriptyline, duloxetine. #Hypothyroidism ? Resume home levothyroxine 100 mcg. ? Follow-up TSH. #Hypertension ? Hold home carvedilol, amlodipine as blood pressures have been stable here. Full code Lovenox 40 mg twice daily
--- NOTE | 2024-04-06 14:52 | PC.NURSE ---
PT IS RESTING IN BED. ALERT TO TO SELF AND PLACE. PT IS CONFUSED TO WHY SHE IS HERE AND DOES NOT UNDERSTAND WHY SHE FEELS THE WAY SHE DOES. PT WILL OCCASIONALLY HAVE TREMORS AND DIFFICULTY WITH FINDING WORDS. TOLERATED SITTING UP IN THE CHAIR FOR SEVERAL HOURS THIS SHIFT. 1 ASSIST TO GET OOB. PT HAS HAD 2 LOOSE BOWEL MOVEMENTS THIS SHIFT. LUNG SOUNDS CLEAR. ABDOMEN LARGE/NON TENDER WITH ACTIVE BOWEL SOUNDS. WILL CONTINUE TO MONITOR.
--- OUTSIDE RECORDS SUMMARY | 2024-04-06 15:33 | XMS_ITS | Referral Summary ---
Author Organization [place] Address [address] [place] [address] Phone Care Team Providers Care Diathermy Equipment Repairer Name Role Phone Unavailable Primary Care Provider [...] Treatment Not on file Insurance ANTHEM PPO [facility] MEDICAID CARVE OUT [facility] [place] MDR
--- OUTSIDE RECORDS SUMMARY | 2024-04-06 15:33 | XMS_ITS | Clinical Summary ---
Author Organization [facility] Address [address] [place] [address] Phone Care Team Providers Care Ceramic Tile Setter Name Role Phone Unavailable Primary Care Provider [...] season) 2023 Influenza Vaccine (#1) [address] [place], [place] [id number] MED[facility] CARVE OUT [facility] COMM[facility] PLAN [place] MDR
--- OUTSIDE RECORDS SUMMARY | 2024-04-06 15:33 | XMS_ITS | Encounter Summary ---
Author Organization [place] [address] Care Team Providers Care Dry Kiln Loader Name Role Phone Unavailable Primary Care Provider Unavailabl e Reason for Visit * Reason Onset Date Comments Central Patient Navigator Outreach 10/25/2022 Appointment Needed Encounter Details Date Type Department Care Team (Late st Contact Info) Description 10/25/2022 Patient Outreach [facility] [address] [place], [place] [id number] Provider, Unknown Central Patient Navigator Outreach (Appointment [...] Needed Attempt Count: 1st Care Gaps Addressed network control operator: Annual Wellness Visit and Appointment Outcome: rang 3x then busy documented in this encounter Plan of Treatment Not on file documented as of this encounter Visit Diagnoses Not on filedocumented in this encounter
[2024-04-06 15:54] LABS: POC Glucose,Bedside 74 (70-110)
[2024-04-06] MEDS: ACETAMINOPHEN 500MG TAB 1000 MG PO (18:28)
[2024-04-06] MEDS: MELATONIN 5MG TABLET 10 MG PO (20:42)
[2024-04-06] MEDS: CEFTRIAXONE SODIUM 2 GM in 0.9 % SODIUM CHLORIDE 100 ML IV (20:42)
[2024-04-06] MEDS: PANTOPRAZOLE 40MG TABLET 40 MG PO (20:42)
[2024-04-06] MEDS: DONEPEZIL 5MG TAB 5 MG PO (20:42)
[2024-04-07] VITALS: BP 160/76; PULSE 67; RESP 16; TEMP 36.6; O2SAT 96
[2024-04-07] MEDS: METRONIDAZ/SOD CHL 500 MG/100 ML PIGGYBACK 100 MG IV ×2 (00:38→08:41)
[2024-04-07] MEDS: ACETAMINOPHEN 500MG TAB 1000 MG PO (02:50)
--- NOTE | 2024-04-07 03:20 | PC.NURSE ---
Patient woke at around 03:00 this morning complaining of smelling weird smells that started to make her cough violently and dry heave. She became restless and anxious due to the unbearable smells. Patient started to also complain of nosebleeds (bloody tissues were discarded), and she continues to report dry mouth with thirst. She reported that her throat was starting to feel dry as well. The patient requested to rest in the chair to avoid the weird smell around her bed, including sheets, her gown, and towels. A new shirt obtained from the Family Day Care Provider this shift was given to the patient. At this time, the patient will be receiving a bath to attempt to make her more comfortable.
[2024-04-07 04:00] VITALS: BP 138/69; PULSE 68; RESP 16; TEMP 36.4; O2SAT 95; BMI 40.0
--- NOTE | 2024-04-07 05:00 | PC.NURSE ---
Patient has expressed increased alertness and orientation this shift compared to her initial status upon arrival. The patient could state her name, birthday, that she was in a hospital (does continue to struggle with names of places), and was aware that she came from [facility]. She was also able to have coherent and appropriate conversations with staff and could even recall memories this shift. However, she continues to state that she does not remember how she ended up in the hospital. She would also have random in-and-out periods of zoning out and sounding tongue-tied. Dilated pupils continue to be noted. Auscultation (lungs, heart, bowels) remains within baseline (unchanged from initial assessment). Scheduled medications were given as appropriately per JUN. She has been getting up to the bedside commode with assistance to have bowel movements and voids. Patient did start to report having an upset stomach and issues with her smell this shift. Bleeding from her nose was also noted (onset noticed around 03:00) this shift. Patient continues to report feeling dry mucous membranes and intermittent coughing. Ice chips and strawberry ice cream were given this shift to aid with dry mouth complaint. Pancytopenia. At this time, the patient is resting up to the chair (see prior note). She does not have any further complaints. Call light within reach.
[2024-04-07] MEDS: LEVOTHYROXINE 100MCG (0.1MG) TAB 100 MCG PO (06:05)
[2024-04-07 06:07] VITALS: PULSE 66; PULSE 70; O2SAT 94
[2024-04-07] MEDS: IPRATROPIUM/ALBUTEROL 3 ML NEB IH (06:07)
[2024-04-07 07:00] LABS: Basophils % 0.4 % (0.1-2.0); Eosinophils # 0.1 K/mm3 (0.0-0.4); Eosinophils % 3.3 % (0.1-12.0); Hematocrit 37.6 % (37.0-47.0); Hemoglobin 12.8 g/dL (12.2-16.2); Lymphocytes # 0.9 K/mm3 (0.7-4.5); Lymphocytes % 27.5 % (10-50); Mean Corpuscular HGB Conc 34.1 g/dL (31.8-35.4); Mean Corpuscular Hemoglobin 32.6 pg (27.0-31.2); Mean Corpuscular Volume 95.5 fl (81-99); Mean Platelet Volume 7.2 fl (7.4-10.4); Monocytes # 0.3 K/mm3 (0.1-1.0); Monocytes % 8.5 % (1.7-9.3); Neutrophils % 60.4 % (37.0-80.0); Platelet Count 93 K/mm3 (142-424); Red Blood Count 3.94 M/mm3 (4.20-5.40); Red Cell Distribution Width 14.7 % (11.5-17.5); White Blood Count 3.4 K/mm3 (4.8-10.8)
[2024-04-07 07:06] LABS: Ammonia 108 umol/L (9-30)
[2024-04-07 07:07] LABS: Chloride 112 mmol/L (98-107); Potassium 3.2 mmoL/L (3.5-5.1); Sodium 140 mmol/L (136-145)
[2024-04-07 07:10] LABS: Alanine Aminotransferase 29 U/L (12-78); Alkaline Phosphatase 75 U/L (38-126); Anion Gap 5.2 mEq/L (5-15); Aspartate Amino Transferase 69 U/L (14-36); Bilirubin,Total 0.8 mg/dl (0.2-1.3); Blood Urea Nitrogen 11 mg/dl (7-17); Carbon Dioxide 26 mmol/L (22.0-30.0); Creatinine Clearance Estimated 64 mL/min (50-200); Estimated Glomerular Filt Rate 75 ml/min (>60); GFR (African American) 91 ML/MIN (>60)
[2024-04-07 07:11] LABS: Calcium 8.6 mg/dl (8.4-10.2); Glucose 87 mg/dl (74-100)
[2024-04-07 07:38] LABS: Thyroid Stimulating Hormone 4.78 uIU/mL (0.465-4.68)
[2024-04-07 08:00] VITALS: BP 134/69; PULSE 72; RESP 20; TEMP 36.5; O2SAT 100
[2024-04-07] MEDS: RIFAXIMIN 550MG TABLET 550 MG PO (08:40)
[2024-04-07] MEDS: CARVEDILOL 3.125MG TABLET 3.125 MG PO (08:40)
[2024-04-07] MEDS: THIAMINE 100MG TABLET 100 MG PO (08:40)
[2024-04-07] MEDS: ENOXAPARIN 40MG/0.4ML SYRINGE 40 MG SUBCUT (08:40)
[2024-04-07] MEDS: SPIRONOLACTONE 25MG TABLET 50 MG PO (08:40)
[2024-04-07] MEDS: LACTULOSE 20GM/30ML UDC 30 GM PO ×2 (08:41→12:34)
[2024-04-07 09:07] LABS: Free T4 (Free Thyroxine) 0.74 ng/dl (0.78-2.19)
--- NOTE | 2024-04-07 10:14 | HMH.OTEV ---
OT Inpatient Evaluation Rehab OT IP Evaluation Start: 04/07/24 09:35 Freq: ONCE Status: Active Protocol: Document 04/07/24 10:08 [facility] (Rec: 04/07/24 10:[address] [facility] [id number]) Rehab OT IP Assessment Subjective History Pt oriented x3 on arrival. Pt admitted on 04/05/24 for AMS. History and physical: This is a 54-year-old female that presents to [facility] emergency department from her residential facility [facility] for altered mental status. History is acquired from the electronic medical record and ED staff. The patient had a similar presentation and admission in June 2023. Her past medical history significant for cirrhosis without ascites, splenomegaly, portal hypertension and gastric varices. She has cognitive impairment and mood disorder diagnoses and resides at [facility]. Staff identify 24 to 48 hours of mental status changes with associated diarrhea. In the ED she was febrile and tachycardic with concerns for aspiration pneumonia on imaging. Her CBC identified normal white blood cell count with chronic thrombocytopenia related to her chronic splenomegaly. Her lactic acid was normal. Her ammonia level is elevated at 161. Her calculated MELD-Na=12. Subjective I can do what I need to. Prior to being in the hospital , pt lived at [facility] personal fci. Pt claims normally she is independent with all ADLs such as dressing , bathing, and feeding. Pt does depend on staff for completion of IADLs. Pt does use a rolling walker during functional transfers. Objective Patient Orientation Person,Place,Birthday Right Upper Extremity Gross ROM WFL Left Upper Extremity Gross ROM WFL Transfer Training Sit/Stand Transfer Assist Level Supervision/Stand by Chair Transfer Ability Supervision/Stand by Chair Transfer Technique Sit to/from Ambulatory Chair Transfer Assistive Devices Rolling Walker Lower Body Dressing Ability Standby Assistance Rehab OT IP prob,goals,plan Problems Date of Evaluation: 04/07/24 Rehab Potential Rehab Potential Innapropriate for Skilled Therapy Discharge Plan OT Discharge Plan Pt appears to be at her baseline with functional transfers and ADL independence . Pt can return to [facility] once she is medically stable per physician. Eval Complexity Eval Charge Codes 47516 - Moderate Complexity PHYSICIAN CERTIFICATION: I certify the specified therapy services for Trish Elvin are required, authorized, and reviewed every 30 days.
--- NOTE | 2024-04-07 11:38 | SW/DCPLANNER ---
Addendum entered by Brionna King 04/07/24 15:48: I have arranged [employer] for this patient w/ Wendy. Addendum entered by Brionna King 04/07/24 12:02: * CORRECTION: patient does not currently have home health services. I will fax patient information/order to [facility] today. Original Note: This patient currently resides at [facility]. Per PT patient is able to return to [facility]. stated that patient will discharge this afternoon. Patient is currently established w/ [facility] and services will be resumed at time of discharge.
[2024-04-07 12:00] VITALS: BP 127/66; PULSE 73; RESP 18; TEMP 36.9; O2SAT 100
--- NOTE | 2024-04-07 13:03 | HMH.PTEV ---
Physical Therapy Evaluation Rehab PT IP Evaluation Start: 04/07/24 09:35 Freq: ONCE Status: Active Protocol: Document 04/07/24 11:19 PHORNE (Rec: 04/07/24 13:02 PHORNE [id number]) Subjective/History History History Pt is a 54 yo female that presents to [facility] due to altered mental status. Pt states I just woke up in the hospital . Pt reports she lives at [facility], a local personal long term. Pt states she was previously independent w/ all ADLs and ambulation before admission. Pt denies a history of falls. Pt denies using an assistive device for ambulation. Subjective Subjective Pt presents reclined in bedside chair this morning. Pt is awake, alert, and 3x oriented this date. Pt consents to PT services. Pt reports pain in her MEENU LE, L > R. New diagnosis of cancer in past 12 No months? Rehab PT IP Eval Objective Appearance Patient Behavior Appropriate,Cooperative Patient Orientation Person,Place,Birthday Difficulty following instructions none Speech Pattern Clear,Appropriate,Coherent Ambulation Patient Able to Ambulate Yes Ambulation Observation IP General Gait Pattern Observation Decrease Stride Lngth (R), Decrease Stride Lngth (L) Ambulation Distance (feet) 20 Ambulation Assistive Device Rolling Walker Ambulation Ability Contact Guard/Hand Hold Balance Ability to Arise Able, uses arms to help Sitting Balance Steady, safe Standing Balance Steady, wide stance Dynamic Sitting Balance Ability Normal Dynamic Standing Balance Ability Good Transfers Sit to Stand Bed Transfer Ability Minimal x 2 (25% assist) Rehab PT IP prob,goals,plan Problems Date of Evaluation: 04/07/24 PT IP Problems Transfers,Gait,Balance Rehab Potential Rehab Potential Good Equipment Needs Assistive Devices Rolling / Wheeled Walker Plan PT Intervention Plan Transfers,Gait,Balance, Therapeutic Exercise PT Plan Frequency BID Duration LOS Discharge Goals Bed Transfer Ability Independent Sit to Stand Chair Transfer Ability Independent Ambulation Assistive Device Rolling Walker Ambulation Distance (feet) 50 Discharge Plan PT Discharge Plan Currently, pt is most appropriate to return home once medically stable for d/c. Pt demonstrates good dynamic standing and sitting balance. Pt unable to use continuous steps during turns. Pt demonstrates decreased stride length MEENU due to pain. PT services are indicated to increase ambulation, transfers , and strength. Eval Complexity Eval Charge Codes 31320 - High Complexity PHYSICIAN CERTIFICATION: I certify the specified therapy services for Trish Elvin are required, authorized, and reviewed every 30 days.
--- NOTE | 2024-04-07 13:55 | EXP.DC.SUM ---
General Admission date:: 04/05/24 HPI HPI HPI: This is a 54-year-old female that presents to [facility] emergency department from her residential facility [facility] for altered mental status. History is acquired from the electronic medical record and ED staff. The patient had a similar presentation and admission in June 2023. Her past medical history significant for cirrhosis without ascites, splenomegaly, portal hypertension and gastric varices. She has cognitive impairment and mood disorder diagnoses and resides at [facility]. Staff identify 24 to 48 hours of mental status changes with associated diarrhea. In the ED she was febrile and tachycardic with concerns for aspiration pneumonia on imaging. Her CBC identified normal white blood cell count with chronic thrombocytopenia related to her chronic splenomegaly. Her lactic acid was normal. Her ammonia level is elevated at 161. Her calculated MELD-Na=12. Hospital Course Hospital Course Hospital Course: This is a 54-year-old female with cognitive impairment and mood disorder from [facility] residential facility who presented with metabolic encephalopathy and presenting ammonia level 161 with known history of cirrhosis without ascites. #Sepsis #Acute diverticulitis #Aspiration pneumonitis ? CT chest shows evidence of aspiration pneumonitis, presented with tachycardia, fever, leukopenia. ? CT abdomen/pelvis shows evidence of acute diverticulitis without severe signs including perforation, fistula. ? Aspiration likely in the setting of hepatic encephalopathy, which is improved today. No signs of further aspiration at this time. ? Improved with ceftriaxone and Flagyl for 2 days. Discharged with Augmentin for 5 more days. #Acute hepatic encephalopathy (grade 2) #Hyperammonemia #Cirrhosis without ascites #Splenomegaly #Portal hypertension #Gastric and esophageal varices ? Patient states she was discontinued from lactulose about a month ago, though patient is not the best historian. ? No signs of volume overload. ? Initial ammonia 161. ? Encephalopathy clinically improved with lactulose 20 mg 4 times daily. Patient has had about 5 bowel movements yesterday. ? Discharged with lactulose 20 mg twice daily. Will need to titrate for at least 2-3 bowel movements a day. ? Increased home rifaximin 550 mg to 3 times daily. ? Started spironolactone 50 mg twice daily. Continue Coreg 3.25 mg twice daily. #Physical deconditioning ? Improved today. PT/OT consulted, did not recommend further rehab. #Cognitive impairment #Mood disorder ? Continue home home oxcarbazepine, amitriptyline, duloxetine. #Hypothyroidism ? TSH elevated to 4.78, free T4 low 0.74. ? Increase levothyroxine from 100 mcg to 125 mcg. #Hypertension ?Continue home carvedilol, discontinue amlodipine SBO started spironolactone Exam Data for Last 24 hours Vital signs and Labs for Last 24 Hours: Temp Pulse Resp BP Pulse Ox O2 Del Method 98.5 F 73 18 127/66 100 Room Air 04/07/24 12:00 04/07/24 12:00 04/07/24 12:00 04/07/24 12:00 04/07/24 12:00 04/07/24 12:37 Laboratory Results - last 24 hr 04/06/24 15:38: POC Glucose 74 04/07/24 06:38: WBC 3.4 L, RBC 3.94 L, Hgb 12.8, Hct 37.6, MCV 95.5, MCH 32.6 H, MCHC 34.1, RDW 14.7, Plt Count 93 L, MPV 7.2 L, Neut % (Auto) 60.4, Lymph % (Auto) 27.5, Dent % (Auto) 8.5, Eos % (Auto) 3.3, Baso % (Auto) 0.4, Neut # (Auto) 2.0, Lymph # (Auto) 0.9, Dent # (Auto) 0.3, Eos # (Auto) 0.1, Baso # (Auto) 0.0, Sodium 140, Potassium 3.2 L, Chloride 112 H, Carbon Dioxide 26, Anion Gap 5.2, BUN 11, Creatinine 0.80, Estimated Creat Clear 64, Estimated GFR 75, Est GFR ( Amer) 91, Glucose 87, Calcium 8.6, Total Bilirubin 0.8, AST 69 H, ALT 29, Alkaline Phosphatase 75, Ammonia 108 H, Total Protein 6.0 L, Albumin 3.0 L, Globulin 3.0, Albumin/Globulin Ratio 1.0 L, TSH 4.78 H, Free T4 0.74 L I & O for Last 24 hours: Intake & Output 04/04/24 04/05/24 04/06/24 04/07/24 23:59 23:59 23:59 23:59 Intake Total 2377 / 2951 1774 / 1774 Output Total 0 / 0 0 / 0 Balance 2377 / 2951 1774 / 1774 Weight 102.739 kg 102.739 kg 102.512 kg Microbiology Reports for the Last 24 Hours: Microbiology 04/05/24 17:05 Blood Blood Culture - Preliminary NO GROWTH AFTER 24 HOURS 04/05/24 17:04 Blood Blood Culture - Preliminary NO GROWTH AFTER 24 HOURS Constitutional Constitutional: no acute distress and obese *Routine HEENT Exam Head: Present normocephalic Eye: Present EOMI and PERRL ENT: Present mucous membranes moist *Routine Neck Exam Neck: Present supple; Absent lymphadenopathy *Routine Respiratory Exam Respiratory: Present CTA bilaterally *Routine Cardiovascular Exam Cardiovascular: Present RRR *Routine Abdominal Exam Abdominal: Present soft and normoactive bowel sounds; Absent tenderness *Routine Extremities Exam Extremities: Absent cyanosis, clubbing or edema *Routine Skin Exam Skin: Present warm; Absent rash *Routine Neurological Exam Neurological: Present alert Comments: AOx2. Results Data Completed and Pending Labs on day of discharge: Labs from last 24 hours 04/07/24 04/06/24 06:38 15:38 WBC 3.4 L RBC 3.94 L Hgb 12.8 Hct 37.6 MCV 95.5 MCH 32.6 H MCHC 34.1 RDW 14.7 Plt Count 93 L MPV 7.2 L Neut % (Auto) 60.4 Lymph % (Auto) 27.5 Dent % (Auto) 8.5 Eos % (Auto) 3.3 Baso % (Auto) 0.4 Neut # (Auto) 2.0 Lymph # (Auto) 0.9 Dent # (Auto) 0.3 Eos # (Auto) 0.1 Baso # (Auto) 0.0 Sodium 140 Potassium 3.2 L Chloride 112 H Carbon Dioxide 26 Anion Gap 5.2 BUN 11 Creatinine 0.80 Estimated Creat Clear 64 Estimated GFR 75 Est GFR ( Amer) 91 Glucose 87 POC Glucose 74 Calcium 8.6 Total Bilirubin 0.8 AST 69 H ALT 29 Alkaline Phosphatase 75 Ammonia 108 H Total Protein 6.0 L Albumin 3.0 L Globulin 3.0 Albumin/Globulin Ratio 1.0 L TSH 4.78 H Free T4 0.74 L Preliminary micro results at discharge 04/05/24 17:05 Blood Culture - Preliminary Blood NO GROWTH AFTER 24 HOURS 04/05/24 17:04 Blood Culture - Preliminary Blood NO GROWTH AFTER 24 HOURS DS: Diagnosis Discharge Diagnosis (1) Sepsis: Status: Acute Code(s): A41.9 - Sepsis, unspecified organism Qualifiers: Hepatic coma status: without hepatic coma (2) Aspiration pneumonitis: Status: Acute Code(s): J69.0 - Pneumonitis due to inhalation of food and vomit (3) Acute hepatic encephalopathy: Status: Acute Code(s): K76.82 - Hepatic encephalopathy (4) Cirrhosis of liver: Status: Acute Code(s): K74.60 - Unspecified cirrhosis of liver Qualifiers: Ascites presence: unspecified Hepatic cirrhosis type: unspecified hepatic cirrhosis Qualified Code(s): K74.60 - Unspecified cirrhosis of liver (5) Hyperammonemia: Status: Acute Code(s): E72.20 - Disorder of urea cycle metabolism, unspecified (6) Obstructive sleep apnea: Status: Acute Code(s): G47.33 - Obstructive sleep apnea (adult) (pediatric) (7) Cognitive impairment: Status: Acute Code(s): R41.89 - Other symptoms and signs involving cognitive functions and awareness Meds Home Medications and Allergies Home Medications ?Medication ?Instructions ?Recorded ?Confirmed ?Type amitriptyline 50 mg tablet 50 mg PO HS 05/02/22 04/06/24 History duloxetine 30 mg capsule,delayed 60 mg PO DAILY 05/02/22 04/06/24 History release pantoprazole 40 mg tablet,delayed 40 mg PO HS 05/02/22 04/06/24 History release melatonin 5 mg tablet 10 mg PO HS 05/03/22 04/06/24 History pyridoxine (vitamin B6) 50 mg 50 mg PO DAILY 02/21/23 04/06/24 History tablet acetaminophen 325 mg tablet 325 mg PO Q6HP PRN Mild Pain 05/14/23 04/06/24 History (Scale Score 1-4) cyclobenzaprine 5 mg tablet 5 mg PO TIDP PRN Muscle Spasm 05/14/23 04/06/24 History ferrous sulfate 324 mg (65 mg 324 mg PO Q2D 05/14/23 04/06/24 History iron) tablet,delayed release albuterol sulfate 90 mcg/actuation 1 puff inhalation Q6HP PRN 07/18/23 04/06/24 History aerosol inhaler Shortness Of Breath cholecalciferol (vitamin D3) 1,250 1,250 mcg PO FR 04/06/24 04/06/24 History mcg (50,000 unit) capsule donepezil 5 mg tablet 5 mg PO HS 04/06/24 04/06/24 History lidocaine 5 % topical patch 1 patch topical DAILYP PRN Pain 04/06/24 04/06/24 History oxcarbazepine 150 mg tablet 150 mg PO BID 04/06/24 04/06/24 History promethazine 25 mg rectal 25 mg MS Q6HP PRN Nausea And 04/06/24 04/06/24 History suppository Vomiting amoxicillin 500 mg-potassium 1 tab PO BID 5 days #10 tabs 04/07/24 Rx clavulanate 125 mg tablet (Augmentin) carvedilol 3.125 mg tablet 3.125 mg PO BID 30 days #60 tabs 04/07/24 Rx lactulose 20 gram/30 mL oral 20 g (30 mL) PO BID 30 days #1,800 04/07/24 Rx solution mL levothyroxine 100 mcg tablet 125 mcg (1.25 x 100 mcg) PO 04/07/24 Rx DAILYDM 30 days #38 tabs rifaximin 550 mg tablet (Xifaxan) 550 mg PO TID 30 days #60 tabs 04/07/24 Rx spironolactone 50 mg tablet 50 mg PO DAILY #30 tabs 04/07/24 Rx New Prescriptions to Start Prescriptions: amoxicillin-pot clavulanate [Augmentin] Momo Tenorio carvedilol Momo Tenorio lactulose Momo Tenorio levothyroxine Momo Tenorio rifaximin [Xifaxan] Momo Tenorio spironolactone Momo Tenorio Allergies Allergy/AdvReac Type Severity Reaction Status Date / Time amoxicillin (From Augmentin) Allergy Unknown Verified 03/25/24 17:02 allergy reaction clavulanic acid (From Allergy Unknown Verified 03/25/24 17:02 Augmentin) allergy reaction oxycodone Allergy Unknown Verified 03/25/24 17:02 allergy reaction Discharge Plan Disposition Patient Disposition: Xfer Short-Term Hosp Condition: Fair Discharge Order Discharge Orders: Discharge Order (Routine); Ordered 04/07/24 Ordered By: Momo Tenorio Follow up Plan Follow up with: Linda (ED),Mariely, PRODUCT MANAGER [employer]ICE [Emergency Midlevel Provider] - 04/10/24 Prescriptions/Medication Reconciliation: New lactulose 20 gram/30 mL Solution 20 g PO BID 30 Days Qty: 1800 0RF amoxicillin-pot clavulanate [Augmentin] 500-125 mg tablet 1 tab PO BID 5 Days Qty: 10 0RF carvedilol 3.125 mg Tablet 3.125 mg PO BID 30 Days Qty: 60 0RF spironolactone 50 mg tablet 50 mg PO DAILY Qty: 30 0RF Continued lidocaine 5 % Adhesive Patch,Medicated 1 patch TOPICAL DAILYP PRN (Reason: Pain) Rx Instructions: leave on most painful area for up to 12 hrs oxcarbazepine 150 mg Tablet 150 mg PO BID donepezil 5 mg Tablet 5 mg PO HS cholecalciferol (vitamin D3) 1,250 mcg (50,000 unit) Capsule 1,250 mcg PO FR promethazine 25 mg suppository 25 mg MS Q6HP PRN (Reason: Nausea And Vomiting) amitriptyline 50 mg Tablet 50 mg PO HS pantoprazole 40 mg Tablet,Delayed Release (Dr/Ec) 40 mg PO HS duloxetine 30 mg Capsule,Delayed Release(Dr/Ec) 60 mg PO DAILY melatonin 5 mg tablet 10 mg PO HS pyridoxine (vitamin B6) 50 mg tablet 50 mg PO DAILY acetaminophen 325 mg Tablet 325 mg PO Q6HP PRN (Reason: Mild Pain (Scale Score 1-4)) cyclobenzaprine 5 mg Tablet 5 mg PO TIDP PRN (Reason: Muscle Spasm) ferrous sulfate 324 mg (65 mg iron) tablet,delayed release (DR/EC) 324 mg PO Q2D Rx Instructions: take 1 tab every other day albuterol sulfate 90 mcg/actuation HFA aerosol inhaler 1 puff inhalation Q6HP PRN (Reason: Shortness Of Breath) Patient Comments: INHALE 1 PUFF BY MOUTH EVERY 6 HOURS NEEDED may keep AT bedside (shortness of breath) Changed levothyroxine 100 mcg Tablet 125 mcg PO DAILYDM 30 Days Qty: 38 1RF Xifaxan 550 mg Tablet 550 mg PO TID 30 Days Qty: 60 2RF Discontinued carvedilol 3.125 mg Tablet 3.125 mg PO BID amlodipine 5 mg tablet 5 mg PO HS Problem Reconciliation Problems Reviewed?: Yes Patient Discharge Instructions Patient Instructions: DI for Sepsis -- Adult, DI for Hepatic Encephalopathy Print Language: Occitan Providers Primary Care Provider: Raul Hernandez Admit Provider: Supa Gonzalez Attending Provider: Supa Gonzalez
--- NOTE | 2024-04-07 15:55 | CARE MANAGER ---
Patient has a mobility impairment that cannot be corrected with a can but there is potential for ambulation. Patient is requiring the use of a rollowing walker.
--- NOTE | 2024-04-07 16:05 | CARE MANAGER ---
Patient requested walker to aid with ambulation. Information sent to Joe and judy will be delivered to Duncan Houser.
--- NOTE | 2024-04-07 16:37 | HMH.SLDYSPHA ---
Speech & Language Evaluation Speech/Language Dysphagia Evaluation Start: 04/07/24 16:18 Freq: ONCE Status: Active Protocol: Document 04/07/24 16:18 ELIOTJAMIRQUAN (Rec: 04/07/24 16:26 [id number] Dysphagia Assess/Goals/Plan Assessment Date of Evaluation: 04/07/24 Evaluation Type Initial Certification Assessment/Problems possible aspiration per MD order Does Patient Qualify for Service No Qualify/Failure Comment Based on clinical observations made at the bedside during evaluation, pt's mastication and manipulation of bolus and swallowing appear to be WFL and no further skilled speech therapy services are warranted at this time. Recommendations PHYSICIAN CERTIFICATION: The specified therapy services are required, authorized, and reviewed every 30 days. Diet Recommendations Normal Liquid Type Recommendations Normal/Thin SL Swallow Guidelines Alt bite w/sip thru meal, Standard Aspiration Prec.,Eat at slow rate Dysphagia Swallow Precautions/Strategies Sitting Upright (90 deg),Small Bites and Sips,Alternate Liquids/Solids Plan Pt/Guardian verbally ack understanding Yes of dx/prognosis/goals G -code Required No Education Instructions provided Discussed CSE results, diet recommendations, compensatory strategies and standard aspiration precautions with pt , nursing, and MD all of which expressed understanding. Pt/Caregiver able to recall information Able to recall/restate Reinforcement needed No Speech & Language HPI History Present Illness Description of Patient Problem 54-year-old female that presents to [facility] emergency department from her residential facility [facility] for altered mental status . History is acquired from the electronic medical record and ED staff. The patient had a similar presentation and admission in June 2023. Her past medical history significant for cirrhosis without ascites, splenomegaly, portal hypertension and gastric varices. She has cognitive impairment and mood disorder diagnoses and resides at [facility] residential living. Staff identify 24 to 48 hours of mental status changes with associated diarrhea. In the ED she was febrile and tachycardic with concerns for aspiration pneumonia on imaging. Her CBC identified normal white blood cell count with chronic thrombocytopenia related to her chronic splenomegaly. Her lactic acid was normal. Her ammonia level is elevated at 161. Her calculated MELD-Na= 12. PMHx including: Cirrhosis of liver Bipolar 1 disorder Hypothyroidism Hypertension Cognitive impairment Murmur, heart Obstructive sleep apnea Hypothyroid Anxiety CXR: Findings compatible with interstitial pneumonitis. Language Primary Language Malay General Information General Current Food Consistancy Regular,Thin Liquids Dentition Good Dentition Oxygen Status Room Air Patient Orientation Person,Place,Time Ability to Follow Directions Good Dysphagia:Food Presentation Evaluation Food Type Pureed,Mechanical Soft,Regular ,Liquid,Pudding Dysphagia Evaluation Summary Pt was seen sitting upright in her chair when DESKTOP SUPPORT TECHNICIAN arrived to complete CSE. Pt was A&Ox3. Pt demonstrated no overt s/sxs of aspiration throughout CSE and was administered the following textures 3-5x to assess for consistency and/or fatigue. Consistencies trialed included: thin liquids (open cup/straw sip, two consecutive sips from open cup/straw), pudding, puree (applesauce), mechanical soft (nutrigrain bar), and regular solid ( lisbet crackers.) Based on results of CSE, pt is recommended to continue current diet and no further skilled speech therapy services are warranted at this time. Stroke Dysphagia Assessment PHYSICIAN CERTIFICATION: I certify the specified therapy services for Trish Oconnor are required, authorized, and reviewed every 30 days.
[2024-04-14 13:53] LABS: Norovirus Detected (NotDetected)
== END 2024-04-07 16:41 | disposition home or self-care (01) | DRG 177 ==
LOC: ER 19:37 → 2ND 20:16
PROVIDERS: Nurse Practitioner; Student in an Organized Health Care Education/Training Program; Admitting Provider Family Medicine; Emergency Provider Student in an Organized Health Care Education/Training Program; PCP Nurse Practitioner Acute Care; Visit Provider Family Medicine
DX: J69.0 Pneumonitis due to inhalation of food and vomit (principal); A41.9 Sepsis, unspecified organism; K57.32 Diverticulitis of large intestine without perforation or abscess without bleeding; K76.6 Portal hypertension; K76.82 Hepatic encephalopathy; K74.60 Unspecified cirrhosis of liver; E03.9 Hypothyroidism, unspecified; I10 Essential (primary) hypertension; F31.9 Bipolar disorder, unspecified; G47.33 Obstructive sleep apnea (adult) (pediatric); F41.9 Anxiety disorder, unspecified
CPT/HCPCS: 36415; 70450; 71045; 71260; 74177; 80053; 80307; 80320; 80329; 81001; 82140; 82550; 82803; 82962; 83605; 83735; 84439; 84443; 85025; 85610; 85651; 85730; 86140; 87040; 87506; 87633; 92610; 94640; 97163; 97166; 97530; 99285; J0131; J0456; J0696; J1650; J7030; J7050; J7620; Q9967

== ENCOUNTER 2024-05-27 01:51 | Emergency (ER) | payer BC, OTHER, SELFPAY ==
[2024-05-27 01:51] VITALS: BP 149/72; PULSE 75; RESP 18; TEMP 36.6; O2SAT 98; BMI 43.4
--- NOTE | 2024-05-27 01:57 | ED_ITS ---
Discharge Plan Disposition Patient Disposition: Home, Self-Care Condition: Good Prescriptions Prescriptions: No Action lidocaine 5 % Adhesive Patch,Medicated 1 patch TOPICAL DAILYP PRN (Reason: Pain) Rx Instructions: leave on most painful area for up to 12 hrs oxcarbazepine 150 mg Tablet 150 mg PO BID donepezil 5 mg Tablet 5 mg PO HS cholecalciferol (vitamin D3) 1,250 mcg (50,000 unit) Capsule 1,250 mcg PO FR promethazine 25 mg suppository 25 mg VA Q6HP PRN (Reason: Nausea And Vomiting) lactulose 20 gram/30 mL Solution 20 g PO BID 30 Days Qty: 1800 0RF amoxicillin-pot clavulanate [Augmentin] 500-125 mg tablet 1 tab PO BID 5 Days Qty: 10 0RF levothyroxine 100 mcg Tablet 125 mcg PO DAILYDM 30 Days Qty: 38 1RF Xifaxan 550 mg Tablet 550 mg PO TID 30 Days Qty: 60 2RF carvedilol 3.125 mg Tablet 3.125 mg PO BID 30 Days Qty: 60 0RF spironolactone 50 mg tablet 50 mg PO DAILY Qty: 30 0RF amitriptyline 50 mg Tablet 50 mg PO HS pantoprazole 40 mg Tablet,Delayed Release (Dr/Ec) 40 mg PO HS duloxetine 30 mg Capsule,Delayed Release(Dr/Ec) 60 mg PO DAILY melatonin 5 mg tablet 10 mg PO HS pyridoxine (vitamin B6) 50 mg tablet 50 mg PO DAILY acetaminophen 325 mg Tablet 325 mg PO Q6HP PRN (Reason: Mild Pain (Scale Score 1-4)) cyclobenzaprine 5 mg Tablet 5 mg PO TIDP PRN (Reason: Muscle Spasm) ferrous sulfate 324 mg (65 mg iron) tablet,delayed release (DR/EC) 324 mg PO Q2D Rx Instructions: take 1 tab every other day albuterol sulfate 90 mcg/actuation HFA aerosol inhaler 1 puff inhalation Q6HP PRN (Reason: Shortness Of Breath) Patient Comments: INHALE 1 PUFF BY MOUTH EVERY 6 HOURS NEEDED may keep AT bedside (shortness of breath) Referrals Follow up/Referrals: Provider,Referral, MD [Primary Care Provider] - See instructions Activity Restrictions/Add. Instructions Additional Instructions/Restrictions: You were evaluated in the ER and are appropriate for discharge at this time. Take Tylenol or ibuprofen if needed for headache or bodyaches. Drink plenty of water. Continue taking your home medications as previously prescribed. Follow-up with your primary care doctor for reevaluation. Return to the ER with new, worsening, or otherwise concerning symptoms. Clinical Impressions Clinical Impression: URI (upper respiratory infection) Print Language Print Language: Uzbek Discharge ED Provider: Barb Jovel General Adult HPI General Chief complaint: Upper Respiratory Infection Stated complaint: upper resp. Time Seen by Provider: 05/27/24 01:52 History of Present Illness HPI narrative: 54-year-old female with history of anxiety, depression presents to the ER from [facility] via EMS. EMS reports patient is complaining of upper respiratory symptoms including cough and congestion, they report stable vitals in route, blood sugar 134. No medications administered during transportation. Patient reports for the last 1 to 2 days she has had cough, congestion, sore throat. She also reports a mild headache but has not taken any medications for it. She has no numbness, tingling, localizing weakness, vomiting, diarrhea, chest pain, or shortness of breath. No other associated symptoms. No known fevers. No dysuria or hematuria, no swelling in the feet or legs Related Data Home Medications ?Medication ?Instructions ?Recorded ?Confirmed amitriptyline 50 mg tablet 50 mg PO HS 05/02/22 04/06/24 duloxetine 30 mg capsule,delayed 60 mg PO DAILY 05/02/22 04/06/24 release pantoprazole 40 mg tablet,delayed 40 mg PO HS 05/02/22 04/06/24 release melatonin 5 mg tablet 10 mg PO HS 05/03/22 04/06/24 pyridoxine (vitamin B6) 50 mg 50 mg PO DAILY 02/21/23 04/06/24 tablet acetaminophen 325 mg tablet 325 mg PO Q6HP PRN Mild Pain 05/14/23 04/06/24 (Scale Score 1-4) cyclobenzaprine 5 mg tablet 5 mg PO TIDP PRN Muscle Spasm 05/14/23 04/06/24 ferrous sulfate 324 mg (65 mg 324 mg PO Q2D 05/14/23 04/06/24 iron) tablet,delayed release albuterol sulfate 90 mcg/actuation 1 puff inhalation Q6HP PRN 07/18/23 04/06/24 aerosol inhaler Shortness Of Breath cholecalciferol (vitamin D3) 1,250 1,250 mcg PO FR 04/06/24 04/06/24 mcg (50,000 unit) capsule donepezil 5 mg tablet 5 mg PO HS 04/06/24 04/06/24 lidocaine 5 % topical patch 1 patch topical DAILYP PRN Pain 04/06/24 04/06/24 oxcarbazepine 150 mg tablet 150 mg PO BID 04/06/24 04/06/24 promethazine 25 mg rectal 25 mg VA Q6HP PRN Nausea And 04/06/24 04/06/24 suppository Vomiting Previous Rx's ?Medication ?Instructions ?Recorded amoxicillin 500 mg-potassium 1 tab PO BID 5 days #10 tabs 04/07/24 clavulanate 125 mg tablet (Augmentin) carvedilol 3.125 mg tablet 3.125 mg PO BID 30 days #60 tabs 04/07/24 lactulose 20 gram/30 mL oral 20 g (30 mL) PO BID 30 days #1,800 04/07/24 solution mL levothyroxine 100 mcg tablet 125 mcg (1.25 x 100 mcg) PO 04/07/24 DAILYDM 30 days #38 tabs rifaximin 550 mg tablet (Xifaxan) 550 mg PO TID 30 days #60 tabs 04/07/24 spironolactone 50 mg tablet 50 mg PO DAILY #30 tabs 04/07/24 Allergies Allergy/AdvReac Type Severity Reaction Status Date / Time amoxicillin (From Augmentin) Allergy Unknown Verified 03/25/24 17:02 allergy reaction clavulanic acid (From Allergy Unknown Verified 03/25/24 17:02 Augmentin) allergy reaction oxycodone Allergy Unknown Verified 03/25/24 17:02 allergy reaction [facility] Disclaimer: The information contained in this section may have been updated after the patient was seen, as this information can be updated by other users. Medical History (Updated 05/27/24 @ 02:48 by Barb Jovel MD) Dizziness Dyspnea Nausea Headache Constipation Abnormal finding on diagnostic imaging of kidney Pyelonephritis Cirrhosis of liver Bipolar 1 disorder Hypothyroidism Hypertension Cognitive impairment Murmur, heart Obstructive sleep apnea Hypothyroid Anxiety Surgical History H/O section H/O hernia repair Hx of appendectomy Family History Other No significant family history Social History Smoking Status: Never smoker alcohol intake: never current occupational status: disabled Travel in the last 8 weeks: None Other Medical History Have you received the Flu Vaccine for this season: No Have you received the Pneumonia Vaccine: No ROS Obtained: Yes Systems reviewed as appropriate & no additional complaints except as documented Per HPI Physical Exam General General appearance: alert and in no apparent distress Head Head exam: atraumatic and normocephalic Eye Eye exam: Present PERRL and EOMI ENT ENT exam: Present mucous membranes moist and other (Posterior oropharynx with trace erythema but no tonsillomegaly or exudates) Neck Neck exam: Present normal inspection and full ROM; Absent lymphadenopathy Chest Chest inspection: Present symmetric chest wall rise Respiratory Respiratory exam: Present normal lung sounds bilaterally; Absent respiratory distress, wheezes or stridor Cardiovascular Cardiovascular exam: Present regular rate and normal rhythm Abdominal Exam Abdominal exam: Present soft; Absent distention or tenderness Extremities Exam Extremities exam: Present full ROM; Absent edema Neurological Exam Neurological exam: Present alert and oriented X3; Absent motor sensory deficit Psychiatric Psychiatric exam: Present normal affect and normal mood Skin Skin exam: Present warm and dry Medical Decision Making Medical Records Screening: Per USPSTF and CDC recommendations, given the prevalence of disease in our region, it is our hospital?s policy to screen for HIV and viral Hepatitis for all patients aged 18 and over and those with ongoing risk factors. Darrian Inquiry Pt receiving controlled substance: No Vital Signs: 05/27/24 01:51 05/27/24 02:51 Temperature 97.8 F 97.8 F Temperature Source Oral Oral Pulse Rate 79 Pulse Rate [Right Brachial] 75 Respiratory Rate 18 18 Blood Pressure 168/78 H Blood Pressure [Right Arm] 149/72 H Blood Pressure Mean [Right Arm] 97 Blood Pressure Source Automatic Cuff Blood Pressure Source [Right Arm] Automatic Cuff Blood Pressure Position Supine Blood Pressure Position [Right Arm] Supine 02 Sat by Pulse Oximetry 98 Oxygen Delivery Method Room Air Room Air Lab Data Lab Results 05/27/24 01:50: SARS-CoV-2 (PCR) Not detected, Influenza A Untype (PCR) Not detected, Influenza Type B (PCR) Not detected Orders (Tests/Meds): ED MEDICATIONS Discontinued Medications Generic Name Dose Route Start Last Admin Trade Name Lenard PRN Reason Stop Dose Admin Acetaminophen 1,000 mg 05/27/24 01:53 05/27/24 02:00 Acetaminophen 500mg Tab PO 05/27/24 01:54 1,000 mg ONCE ONE Administration Ibuprofen 600 mg 05/27/24 01:53 05/27/24 02:00 Ibuprofen 600 Mg Tablet PO 05/27/24 01:54 600 mg ONCE ONE Administration ORDERS Category Date Time Status Rapid PCR Covid and Flu A/B Stat Lab 05/27/24 01:50 Completed Medical Decision Narrative: 54-year-old female presents to the ER for cough, congestion, mild headache, sore throat. Symptoms have been going on for 1 day. On evaluation patient is hemodynamically stable, afebrile, lungs clear bilaterally, no peripheral edema, posterior oropharynx with mild erythema but no tonsillomegaly or exudates, no lymphadenopathy. Differential diagnosis includes but is not limited to viral syndrome including COVID, influenza, other upper respiratory infection, I considered pneumonia but patient's single day of symptoms and lack of fever go strongly against this. I considered chest x-ray but chest x-ray will not be performed at this time due to low pretest probability. Patient is saturating well on room air. I considered strep but patient does not have tonsillomegaly or exudates, no lymphadenopathy, she also does not have fever. Additionally, she does have the presence of cough which decreases the likelihood of strep. Strep test will not be performed. Patient received Tylenol, ibuprofen, viral swab was ordered for COVID and flu. Review of labs demonstrates patient is negative for both COVID and flu. On reassessment her headache has improved. She is tolerating oral intake and is appropriate for discharge. No changes in prescriptions. Patient was given instructions on symptomatic management, follow up instructions, and return precautions for the emergency department. Patient indicated understanding and was discharged in stable condition. Critical Care Critical Care Time Critical Care Time: No
[2024-05-27] MEDS: ACETAMINOPHEN 500MG TAB 1000 MG PO (02:00)
[2024-05-27] MEDS: IBUPROFEN 600 MG TABLET PO (02:00)
[2024-05-27 02:08] LABS: Coronavirus 19, PCR Not Detected (NotDetected); Influenza A, PCR Not Detected (NotDetected); Influenza B, PCR Not Detected (NotDetected)
--- NOTE | 2024-05-27 02:47 | PC.NURSE ---
Attempted to call [facility] to let them know she is being discharged, they did not answer the phone at this time. going to call back in a few more minutes.
--- NOTE | 2024-05-27 02:49 | PC.NURSE ---
Called [facility], they said the company car is broke down. doctor has been notified at this time.
[2024-05-27 02:51] VITALS: BP 168/78; PULSE 79; RESP 18; TEMP 36.6; O2SAT 94
--- NOTE | 2024-05-27 06:51 | PC.NURSE ---
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 They stated [facility] will be coming in at 7 and they will call when they have a ride available.
== END 2024-05-27 07:15 | disposition home or self-care (01) ==
PROVIDERS: Emergency Provider Emergency Medicine
DX: J06.9 Acute upper respiratory infection, unspecified (principal); R05.9 Cough, unspecified; R09.81 Nasal congestion; R51.9 Headache, unspecified; J02.9 Acute pharyngitis, unspecified
CPT/HCPCS: 87636; 99283

== ENCOUNTER 2024-06-02 11:06 | Outpatient (CLI) | payer BC, OTHER, SELFPAY ==
--- NOTE | 2024-06-02 11:11 | XR_ITS ---
FINAL REPORT CLINICAL HISTORY: right heel pain COMPARISON: None FINDINGS: RIGHT FOOT 3 views of the right foot were obtained. There is no acute fracture or dislocation. Visualized joint spaces are normally aligned. Soft tissues are unremarkable. A small plantar calcaneal spur is identified, along with a small Geena deformity. IMPRESSION: No acute bony abnormality. Small plantar calcaneal spur, and a small Geena deformity. Reviewed, Interpreted and Dictated by Kody Watson MD Transcribed by Tena Espinoza Authenticated and [facility]
== END 2024-06-02 23:59 | disposition home or self-care (01) ==
PROVIDERS: Visit Provider Physician Assistant
DX: M79.671 Pain in right foot (principal)
CPT/HCPCS: 73630

== ENCOUNTER 2024-06-12 20:07 | Emergency (ER) | payer BC, OTHER, SELFPAY ==
[2024-06-12 20:07] VITALS: BP 134/72; PULSE 81; RESP 16; TEMP 36.6; O2SAT 94; BMI 42.3
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
[2024-06-12] MEDS: IBUPROFEN 400 MG TABLET 800 MG PO (20:33)
[2024-06-12] MEDS: ACETAMINOPHEN 500MG TAB 1000 MG PO (20:33)
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
[2024-06-12 21:32] VITALS: BP 128/72; PULSE 72; RESP 16; TEMP 36.6; O2SAT 95
--- NOTE | 2024-06-12 21:32 | PC.NURSE ---
Called [facility] to make them aware of miss armas discharge. they are coming to pick her up at this time.
== END 2024-06-12 21:44 | disposition home or self-care (01) ==
PROVIDERS: Emergency Provider Emergency Medicine; PCP Nurse Practitioner Acute Care
DX: M25.521 Pain in right elbow (principal); M25.522 Pain in left elbow; M54.2 Cervicalgia; M79.601 Pain in right arm; M79.602 Pain in left arm; Y09 Assault by unspecified means
CPT/HCPCS: 73070; 99283

== ENCOUNTER 2024-08-25 21:57 | Emergency (ER) | payer BC, OTHER, SELFPAY ==
[2024-08-25 22:04] VITALS: BP 124/62; PULSE 72; RESP 18; TEMP 36.6; O2SAT 95; BMI 43.9
--- NOTE | 2024-08-25 23:02 | ED_ITS ---
Discharge Plan Disposition Patient Disposition: Home, Self-Care Condition: Fair Prescriptions Prescriptions: New ondansetron 4 mg tablet,disintegrating 4 mg PO Q6H PRN (Reason: nausea and vomiting) Qty: 10 0RF Held spironolactone 50 mg tablet 50 mg PO DAILY Qty: 30 0RF Hold Instructions: Resume on 08/29/24. No Action lidocaine 5 % Adhesive Patch,Medicated 1 patch TOPICAL DAILYP PRN (Reason: Pain) Rx Instructions: leave on most painful area for up to 12 hrs oxcarbazepine 150 mg Tablet 150 mg PO BID donepezil 5 mg Tablet 5 mg PO HS cholecalciferol (vitamin D3) 1,250 mcg (50,000 unit) Capsule 1,250 mcg PO FR promethazine 25 mg suppository 25 mg NJ Q6HP PRN (Reason: Nausea And Vomiting) lactulose 20 gram/30 mL Solution 20 g PO BID 30 Days Qty: 1800 0RF amoxicillin-pot clavulanate [Augmentin] 500-125 mg tablet 1 tab PO BID 5 Days Qty: 10 0RF levothyroxine 100 mcg Tablet 125 mcg PO DAILYDM 30 Days Qty: 38 1RF Xifaxan 550 mg Tablet 550 mg PO TID 30 Days Qty: 60 2RF carvedilol 3.125 mg Tablet 3.125 mg PO BID 30 Days Qty: 60 0RF amitriptyline 50 mg Tablet 50 mg PO HS pantoprazole 40 mg Tablet,Delayed Release (Dr/Ec) 40 mg PO HS duloxetine 30 mg Capsule,Delayed Release(Dr/Ec) 60 mg PO DAILY melatonin 5 mg tablet 10 mg PO HS pyridoxine (vitamin B6) 50 mg tablet 50 mg PO DAILY acetaminophen 325 mg Tablet 325 mg PO Q6HP PRN (Reason: Mild Pain (Scale Score 1-4)) cyclobenzaprine 5 mg Tablet 5 mg PO TIDP PRN (Reason: Muscle Spasm) ferrous sulfate 324 mg (65 mg iron) tablet,delayed release (DR/EC) 324 mg PO Q2D Rx Instructions: take 1 tab every other day albuterol sulfate 90 mcg/actuation HFA aerosol inhaler 1 puff inhalation Q6HP PRN (Reason: Shortness Of Breath) Patient Comments: INHALE 1 PUFF BY MOUTH EVERY 6 HOURS NEEDED may keep AT bedside (shortness of breath) Referrals Follow up/Referrals: Provider,Referral, MD [Primary Care Provider] - See instructions Activity Restrictions/Add. Instructions Additional Instructions/Restrictions: You were evaluated in the ER and are appropriate for discharge at this time. Take the prescribed ondansetron (Zofran) if needed for nausea. Drink plenty of fluids including water and Gatorade. Do not take your spironolactone again until Sunday. Come back to the hospital for your recheck lab. Case management will reach out to help with transportation. Follow-up with your primary care doctor in 1 to 2 days. Return to the ER with new, worsening, or otherwise concerning symptoms. Clinical Impressions Clinical Impression: Kidney dysfunction, Abdominal pain, Nausea Other Amb Orders Other Ambulatory Orders: Basic Metabolic Panel (Routine) Timeframe: [id number] [facility] Location: Laboratory Ordered By: Momo Tenorio Instructions Patient Instructions: DI for Acute Abdominal Pain Print Language Print Language: [place]i Discharge ED Provider: Barb Jovel General Adult HPI General Chief complaint: Abdominal Pain Stated complaint: Stomach and back pain Time Seen by Provider: 08/25/24 22:19 Mode of Arrival: EMS Source of Information: Patient and EMS Description of Symptoms (Recalled from ER Triage Doc. by RN): Pt presents to ED for abd pain, back pain, and nausea. Pt is not a good historian and struggles to answer questions. (This is baseline per [facility]) Pt rates pain 8/10 at this time. IV started abd VSS. History of Present Illness HPI narrative: 54-year-old female resident of [facility] presents to the ER with multiple complaints. She is a poor historian but states for approximately the last week she has had upper abdominal pain radiating to her back with associated nausea, no emesis, she has also been having some coughing. She states sometimes the abdominal pain radiates up into her chest. She states her pain has been going on for approximately 1 week but has slightly worsened. She denies any alcohol use, states she does not know of any recent medication changes. She states she is not having diarrhea, dysuria, or hematuria. No fevers or chills. No other complaints or concerns at this time. Related Data Home Medications ?Medication ?Instructions ?Recorded ?Confirmed amitriptyline 50 mg tablet 50 mg PO HS 05/02/22 06/12/24 duloxetine 30 mg capsule,delayed 60 mg PO DAILY 05/02/22 06/12/24 release pantoprazole 40 mg tablet,delayed 40 mg PO HS 05/02/22 06/12/24 release melatonin 5 mg tablet 10 mg PO HS 05/03/22 06/12/24 pyridoxine (vitamin B6) 50 mg 50 mg PO DAILY 02/21/23 06/12/24 tablet acetaminophen 325 mg tablet 325 mg PO Q6HP PRN Mild Pain 05/14/23 06/12/24 (Scale Score 1-4) cyclobenzaprine 5 mg tablet 5 mg PO TIDP PRN Muscle Spasm 05/14/23 06/12/24 ferrous sulfate 324 mg (65 mg 324 mg PO Q2D 05/14/23 06/12/24 iron) tablet,delayed release albuterol sulfate 90 mcg/actuation 1 puff inhalation Q6HP PRN 07/18/23 06/12/24 aerosol inhaler Shortness Of Breath cholecalciferol (vitamin D3) 1,250 1,250 mcg PO FR 04/06/24 06/12/24 mcg (50,000 unit) capsule donepezil 5 mg tablet 5 mg PO HS 04/06/24 06/12/24 lidocaine 5 % topical patch 1 patch topical DAILYP PRN Pain 04/06/24 06/12/24 oxcarbazepine 150 mg tablet 150 mg PO BID 04/06/24 06/12/24 promethazine 25 mg rectal 25 mg NJ Q6HP PRN Nausea And 04/06/24 06/12/24 suppository Vomiting Previous Rx's ?Medication ?Instructions ?Recorded amoxicillin 500 mg-potassium 1 tab PO BID 5 days #10 tabs 04/07/24 clavulanate 125 mg tablet (Augmentin) carvedilol 3.125 mg tablet 3.125 mg PO BID 30 days #60 tabs 04/07/24 lactulose 20 gram/30 mL oral 20 g (30 mL) PO BID 30 days #1,800 04/07/24 solution mL levothyroxine 100 mcg tablet 125 mcg (1.25 x 100 mcg) PO 04/07/24 DAILYDM 30 days #38 tabs rifaximin 550 mg tablet (Xifaxan) 550 mg PO TID 30 days #60 tabs 04/07/24 spironolactone 50 mg tablet 50 mg PO DAILY #30 tabs 04/07/24 ondansetron 4 mg disintegrating 4 mg PO Q6H PRN nausea and 08/26/24 tablet vomiting #10 tabs Allergies Allergy/AdvReac Type Severity Reaction Status Date / Time amoxicillin (From Augmentin) Allergy Unknown Verified 03/25/24 17:02 allergy reaction clavulanic acid (From Allergy Unknown Verified 03/25/24 17:02 Augmentin) allergy reaction oxycodone Allergy Unknown Verified 03/25/24 17:02 allergy reaction PFSH PFS Disclaimer: The information contained in this section may have been updated after the patient was seen, as this information can be updated by other users. Medical History (Updated 08/26/24 @ 03:02 by Barb Jovel MD) Dizziness Dyspnea Nausea Headache Constipation Abnormal finding on diagnostic imaging of kidney Pyelonephritis Cirrhosis of liver Bipolar 1 disorder Hypothyroidism Hypertension Cognitive impairment Murmur, heart Obstructive sleep apnea Hypothyroid Anxiety Surgical History H/O section H/O hernia repair Hx of appendectomy Family History Other No significant family history Social History Smoking Status: Unknown if ever smoked alcohol intake: never current occupational status: disabled Travel in the last 8 weeks?: None Have you lived/traveled outside [place] in past 30 days?: No Contact w/someone who lives/traveled outside US past 30 days?: No Exposure to someone with infectious disease in past 14 days?: No Do you have a fever (greater than 100.4 F or 38 C)?: No Have you tested positive for COVID-19?: No Exposed to someone with COVID-19 in past 14 days?: No Do you have a sore throat?: No Do you have a cough?: No Do you have any weakness?: No Do you have any diarrhea?: No Are you experiencing any unusual bleeding?: No Do you have any muscle aches/pain?: No Do you have any abdominal pain?: No Are you experiencing loss of taste or smell?: No Other Medical History Have you received the Flu Vaccine for this season: No Have you received the Pneumonia Vaccine: No ROS Obtained: Yes Systems reviewed as appropriate & no additional complaints except as documented Per HPI Physical Exam General General appearance: alert, in no apparent distress and obese Head Head exam: atraumatic and normocephalic Eye Eye exam: Present PERRL and EOMI ENT ENT exam: Present mucous membranes moist Neck Neck exam: Present normal inspection and full ROM Chest Chest inspection: Present symmetric chest wall rise; Absent tenderness Respiratory Respiratory exam: Present normal lung sounds bilaterally and other (Saturating 97 to 100% on room air); Absent respiratory distress, wheezes or stridor Cardiovascular Cardiovascular exam: Present regular rate and normal rhythm Abdominal Exam Abdominal exam: Present soft and tenderness (Epigastric); Absent distention, guarding or rebound Extremities Exam Extremities exam: Present full ROM Back Exam Back exam: Absent CVA tenderness (R) or CVA tenderness (L) Neurological Exam Neurological exam: Present alert and oriented X3; Absent motor sensory deficit Psychiatric Psychiatric exam: Present normal affect and normal mood Skin Skin exam: Present warm and dry Medical Decision Making Medical Records Medical records reviewed: Yes I reviewed the patient's medical records. Screening: Per USPSTF and CDC recommendations, given the prevalence of disease in our region, it is our hospital?s policy to screen for HIV and viral Hepatitis for all patients aged 18 and over and those with ongoing risk factors. MR Comment: Patient is well-known to this ER. She has had 14 ER visits since April 2023 through today. Most recent hospitalist note from 04/07/2024 discharge summary demonstrates patient was admitted for concerns of altered mental status, hyperammonemia, she also had diverticulitis, aspiration pneumonitis, and evidence of hepatic encephalopathy. Darrian Inquiry Pt receiving controlled substance: No Vital Signs: 08/25/24 22:04 08/26/24 00:30 08/26/24 01:00 Temperature 97.9 F Temperature Source Oral Pulse Rate 65 74 Pulse Rate [Left] 72 Respiratory Rate 18 Blood Pressure 108/57 L 90/64 L Blood Pressure [Right Arm] 124/62 Blood Pressure Mean [Right Arm] 82 02 Sat by Pulse Oximetry 95 92 L 91 L Oxygen Delivery Method Room Air Lab Data Lab Results 08/25/24 22:06: WBC 2.9 L, RBC 3.75 L, Hgb 12.4, Hct 36.9 L, MCV 98.4, MCH 33.1 H, MCHC 33.6, RDW 14.5, Plt Count 97 L, MPV 8.7, Neut % (Auto) 49.0, Lymph % (Auto) 31.3, Arch[place] % (Auto) 12.5 H, Eos % (Auto) 5.2, Baso % (Auto) 1.0, Neut # (Auto) 1.4 L, Lymph # (Auto) 0.9, [place] # (Auto) 0.4, Eos # (Auto) 0.2, Baso # (Auto) 0.0, Sodium 139, Potassium 4.2, Chloride 110 H, Carbon Dioxide 25, Anion Gap 8.2, BUN 12, Creatinine 1.30 H, Estimated Creat Clear 36, Estimated GFR 43 L , Est GFR ( Amer) 52 L, Glucose 107 H, Lactate 1.3, Calcium 9.3, Total Bilirubin 1.1, AST 65 H, ALT 34, Alkaline Phosphatase 75, Troponin I < 0.01, Total Protein 7.1, Albumin 3.4 L, Globulin 3.7 H, Albumin/Globulin Ratio 0.9 L, Lipase 148, HCV Ab [place] w/Rflx PCR Qn Negative 08/25/24 22:23: Urine Color Yellow, Urine Appearance Slightly cloudy, Urine pH 6.0, Ur Specific Logan 1.025, Urine Protein Negative, Urine Glucose (UA) Negative, Urine Ketones Negative, Urine Blood 2+ A, Urine Nitrate Negative, Urine Bilirubin Negative, Urine Urobilinogen 0.2, Ur Leukocyte Esterase Negative, Urine RBC 3-5, Urine WBC 5-10, Ur Squamous Epith Cells 5-10, Urine Bacteria 4+ 08/25/24 23:15: SARS-CoV-2 (PCR) Not detected, Influenza A Untype (PCR) Not detected, Influenza Type B (PCR) Not detected 08/26/24 02:16: Sodium 138, Potassium 4.3, Chloride 109 H, Carbon Dioxide 26, Anion Gap 7.3, BUN 12, Creatinine 1.20 H, Estimated Creat Clear 39, Estimated GFR 47 L, Est GFR ( Amer) 57 L, Glucose 71 L D, Calcium 8.9, Troponin I < 0.01 08/25/24 22:06 08/26/24 02:16 Orders (Tests/Meds): ED MEDICATIONS Generic Name Dose Route Start Last Admin Trade Name Freq PRN Reason Stop Dose Admin Sodium Chloride 10 ml 04/29/25 00:02 08/26/24 00:03 Sodium Chloride 0.9% 10ml Syr (Rad Only) IV 09/25/24 00:01 10 ml NEEDED PRN Administration Maintain IV Site Discontinued Medications Generic Name Dose Route Start Last Admin Trade Name Freq PRN Reason Stop Dose Admin Acetaminophen 1,000 mg 08/26/24 01:52 08/26/24 02:01 Acetaminophen 500mg Tab PO 08/26/24 01:53 1,000 mg ONCE ONE Administration Belladonna Alkaloids 60 ml 08/25/24 23:02 08/25/24 23:15 Belladonna Alkaloids 60 Ml Ml PO 08/25/24 23:03 60 ml ONCE ONE Administration Lactated Ringer's 1,000 mls @ 999 mls/hr 08/26/24 00:55 08/26/24 01:02 Lactated Ringer's 1000 Ml Bag IV 08/26/24 01:55 999 mls/hr .Q1H1M ONE Administration Iopamidol 75 ml 08/26/24 00:02 08/26/24 00:03 Iopamidol-370 (76%);100ml Bottle IV 08/26/24 00:03 75 ml ONCE ONE Administration Ketorolac Tromethamine 15 mg 08/25/24 23:02 08/25/24 23:16 Ketorolac 30mg/Ml Vial IV 08/25/24 23:03 15 mg ONCE ONE Administration Ondansetron HCl 4 mg 08/25/24 23:02 08/25/24 23:16 Ondansetron 4mg/2ml Vial IV 08/25/24 23:03 4 mg ONCE ONE Administration ORDERS Category Date Time Status CT abdomen pelvis w con Stat Cat Scan 08/25/24 23:02 Completed Consult to Case Management [CONS] Routine Cons 08/26/24 02:58 Active CXR 2 view (NOT portable) [XR chest 2V] Stat Exams 08/25/24 23:02 Completed BMP [Basic Metabolic Panel] Stat Lab 08/26/24 02:16 Completed CBC w/Auto Diff [Complete Blood Count Auto Diff] Stat Lab 08/25/24 22:06 Completed CMP [Comprehensive Metabolic Panel] Stat Lab 08/25/24 22:06 Completed Hepatitis C Ab Qual. W/ RFX Stat Lab 04/28/25 22:06 Completed Lactic Acid Stat Lab 08/25/24 22:06 Completed Lipase Stat Lab 08/25/24 22:06 Completed Rapid PCR Covid and Flu A/B Stat Lab 08/25/24 23:15 Completed Trop I [Troponin I] Stat Lab 08/25/24 22:06 Completed Troponin I Q3H Lab 08/26/24 02:16 Completed Troponin I Q3H Lab 08/26/24 05:15 Ordered Urinalysis and Microscopic Stat Lab 08/25/24 22:23 Completed Urine Culture Stat Micro 08/25/24 22:23 Received Medical Decision Narrative: In summary, this 54-year-old female with a history of cognitive impairment, cirrhosis, previous admission for hepatic encephalopathy, all of which increased the amount of data to be reviewed and her overall morbidity presents to the emergency department today with epigastric abdominal pain radiating to the back, radiating to the chest with cough and nausea. On initial evaluation patient is hemodynamically stable, afebrile, lungs clear bilaterally with saturating well on room air, abdominal exam with mild to moderate midepigastric tenderness without rebound or guarding, no peritonitic findings, no CVA tenderness, no reproducible back pain on exam, no reproducible chest pain on exam, cardiopulmonary exam otherwise benign. Differential diagnosis includes but is not limited to viral syndrome, electrolyte abnormality, pancreatitis, UTI, pyelonephritis, atypical presentation of ACS, lactic acidosis, electrolyte abnormality, among others. Ruling out the most morbid conditions drove my assessment. Based on these concerns, I ordered serum labs, cardiac workup, chest x-ray, CT imaging. ECG personally interpreted demonstrates sinus rhythm, rate 62, normal axis, normal NJ and QTc, no STEMI. Patient received IV fluids, Toradol, Zofran, GI cocktail initially for treatment. Labs personally reviewed demonstrate leukopenia which patient has had previously, no anemia, mild thrombocytopenia slightly improved from prior, CMP with no actionable electrolyte abnormalities, patient does have newly elevated creatinine at 1.3 up from a baseline of 0.8-0.9. Initial troponin undetectably low less than 0.01 which is significantly reassuring in the setting of patient's long duration of symptoms and reassuring ECG. Lipase normal at 148 reassuring as pancreatitis. UA with small blood and WBC but contaminated with squamous cells. Nitrate negative. Since patient is asymptomatic I will not treat for UTI at this time. Culture pending. COVID and flu negative. XR personally interpreted demonstrates no acute intrathoracic abnormality, see radiology read for final interpretation. CT imaging personally interpreted demonstrate no acute intra-abdominal pathology, see radiology read for final interpretation. Incidental findings were discussed with the patient. To me patient reports still having abdominal pain, to nursing she states she feels better. She is receiving IV fluids for her kidney dysfunction. I discussed this case with the hospitalist Dr. Tenorio who is hesitant to admit her at this time. I asked him to evaluate the patient at bedside. He did so and recommends fluid challenge and recheck BMP in 1 hour. Will reassess for possible admission after repeat labs. We discussed that the patient has very poor social structure and living at [facility] and is unlikely to have good outpatient follow-up due to her social situation. Patient was placed into ED observation at 0115 for continued IV fluids and repeat labs. Patient received IV fluids and repeat BMP demonstrates slight improvement of creatinine. She is also tolerating oral intake at this time. She is not complaining of pain. I reviewed these repeat results with the hospitalist who believes the patient is appropriate for discharge and outpatient management. He is going to help with coordination with case management since he has experience with case management coordinating [facility] transport for follow-up for [facility] patients. I appreciate his help with this process. Zofran prescribed for outpatient management of symptoms. Patient was given instructions on continued symptomatic monitoring and management, follow-up instructions, strict return precautions for the ER. She indicated understanding. [facility] transportation unavailable until day shift. Patient continues to be physically in the ER. Total time in ED observation: 2 hours Critical Care Critical Care Time Critical Care Time: No
--- NOTE | 2024-08-25 23:02 | XR_ITS ---
PROCEDURE INFORMATION: Exam: XR Chest Exam date and time: 08/25/2024 11:37 PM Age: 54 years old Clinical indication: Cough; Additional info: Cough abd pain radiating to chest TECHNIQUE: Imaging protocol: Radiologic exam of the chest. Views: 2 views. COMPARISON: CT CHEST W CON 04/05/2024 6:56 PM FINDINGS: Lungs: Unremarkable. No consolidation. Pleural spaces: Unremarkable. No pleural effusion. No pneumothorax. Heart/Mediastinum: Unremarkable. No cardiomegaly. Bones/joints: Unremarkable. IMPRESSION: No acute findings.
--- NOTE | 2024-08-25 23:02 | CT_ITS ---
PROCEDURE INFORMATION: Exam: CT Abdomen And Pelvis With Contrast Exam date and time: 08/25/2024 11:56 PM Age: 54 years old Clinical indication: Abdominal pain; Epigastric; Additional info: Epigastric pain radiating to back TECHNIQUE: Imaging protocol: Computed tomography of the abdomen and pelvis with contrast. Radiation optimization: All CT scans at this facility use at least one of these dose optimization techniques: automated exposure control; mA and/or kV adjustment per patient size (includes targeted exams where dose is matched to clinical indication); or iterative reconstruction. Contrast material: ISOVUE; Contrast volume: 75 ml; Contrast route: IV; COMPARISON: CT ABDOMEN PELVIS W CON 04/05/2024 6:56 PM FINDINGS: Liver: Cirrhotic appearing liver. Gallbladder and biliary ducts: Cholecystectomy. Pancreas: Unremarkable. Spleen: Splenomegaly. Adrenal glands: Unremarkable. Kidneys and ureters: Right lower pole simple cortical renal cysts. No hydronephrosis. Stomach and bowel: Unremarkable. No obstruction. No mucosal thickening. Appendix: Suspected appendectomy. Intraperitoneal space: No free air or free fluid. Vasculature: Mild atherosclerotic changes of the aorta and its major branches. Esophageal and abdominal wall varices. Lymph nodes: Unremarkable. Urinary bladder: Unremarkable. Reproductive: Unremarkable. Bones/joints: Unremarkable. No acute fracture. Soft tissues: Postoperative changes of prior hernia repair. IMPRESSION: No acute abdominopelvic abnormality. COMMENTS: Consistent with the [employer]'s Incidental Findings Committee white paper (J Am Carlyn Radiol 2018): Any incidental renal lesion less than 1 cm or classified as too small to characterize, or any incidental cystic renal lesion characterized as simple-appearing, is likely benign. No follow-up imaging is recommended for these lesions per consensus recommendations based on imaging criteria.
[2024-08-25] MEDS: BELLADONNA ALKALOIDS 60 ML ML PO (23:15)
[2024-08-25] MEDS: KETOROLAC 30MG/ML VIAL 15 MG IV (23:16)
[2024-08-25] MEDS: ONDANSETRON 4MG/2ML VIAL 4 MG IV (23:16)
--- NOTE | 2024-08-25 23:22 | ECG_ITS ---
APPROVED REPORT Exam: Resting ECG HR:62 bpm ECG Measurements Heart Rate 62 AXES DE 185 P 10 QRSd 97 QRS 16 QT 421 T -9 QTc 427 Conclusion SINUS RHYTHM NORMAL ECG Electronically signed by : KAIT BOUDREAUX, 08/26/2024 23:21:47
[2024-08-25 23:23] LABS: Coronavirus 19, PCR Not Detected (NotDetected); Influenza A, PCR Not Detected (NotDetected); Influenza B, PCR Not Detected (NotDetected)
[2024-08-25 23:33] LABS: Eosinophils # 0.2 Kmm3 (0.0-0.4); Eosinophils % 5.2 % (0.1-12.0); Hematocrit 36.9 % (37.0-47.0); Hemoglobin 12.4 g/dL (12.2-16.2); Lymphocytes # 0.9 K/mm3 (0.7-4.5); Lymphocytes % 31.3 % (10-50); Mean Corpuscular HGB Conc 33.6 g/dL (31.8-35.4); Mean Corpuscular Hemoglobin 33.1 pg (27.0-31.2); Mean Corpuscular Volume 98.4 fl (81-99); Mean Platelet Volume 8.7 fl (7.4-10.4); Monocytes # 0.4 K/mm3 (0.1-1.0); Monocytes % 12.5 % (1.7-9.3); Neutrophils # 1.4 K/mm3 (1.8-7.8); Nucleated Red Blood Cells # 0 10^3/uL; Nucleated Red Blood Cells % 0 %; Platelet Count 97 K/mm3 (142-424); Red Blood Count 3.75 M/mm3 (4.20-5.40); Red Cell Distribution Width 14.5 % (11.5-17.5); Red Cell Distribution Width-SD 52.2 fL; White Blood Count 2.9 K/mm3 (4.8-10.8)
[2024-08-25 23:33] LABS: Microscopic, Urine URINE MICROSCOPIC (MICROSCOPIC)
[2024-08-25 23:39] LABS: Alanine Aminotransferase 34 U/L (12-78); Albumin Level 3.4 g/dl (3.5-5.0); Albumin/Globulin Ratio 0.9 (1.1-1.8); Alkaline Phosphatase 75 U/L (38-126); Anion Gap 8.2 mEq/L (5-15); Aspartate Amino Transferase 65 U/L (14-36); Bilirubin,Total 1.1 mg/dl (0.2-1.3); Blood Urea Nitrogen 12 mg/dl (7-17); Calcium 9.3 mg/dl (8.4-10.2); Carbon Dioxide 25 mmol/L (22.0-30.0); Chloride 110 mmol/L (98-107); Creatinine Clearance Estimated 36 mL/min (50-200); Estimated Glomerular Filt Rate 43 ml/min (>60); GFR (African American) 52 ML/MIN (>60); Globulin 3.7 g/dL (1.3-3.2); Glucose 107 mg/dl (74-100); Lipase 148 U/L (23-300); Potassium 4.2 mmoL/L (3.5-5.1); Sodium 139 mmol/L (136-145); Total Protein,Serum 7.1 g/dl (6.3-8.2)
[2024-08-25 23:43] LABS: Lactic Acid 1.3 mmol/L (0.7-2.1)
[2024-08-25 23:47] LABS: Bilirubin,Urine Negative (Negative); Blood, Urine 2+ (Negative); Color,Urine YELLOW (Yellow); Glucose,Urine (UA) Negative (Negative); Ketones,Urine Negative (Negative); Leukocyte Esterase,Urine Negative (Negative); Nitrate,Urine Negative (Negative); Protein,Urine Negative (Negative); Specific Gravity, Urine 1.025 (1.005-1.030); Urobilinogen,Urine 0.2 EU/dl (0.2)
[2024-08-25 23:50] LABS: Appearance,Urine Slightly Cloudy (Clear)
[2024-08-26] VITALS (9 sets, daily range): BP systolic 90–148; BP diastolic 57–78; PULSE 58–74; RESP 20; TEMP 36.8; O2SAT 91–98
[2024-08-26] MEDS: SODIUM CHLORIDE 0.9% 10ML SYR (RAD ONLY) 10 ML IV (00:03)
[2024-08-26] MEDS: IOPAMIDOL-370 (76%);100ML BOTTLE 75 ML IV (00:03)
[2024-08-26 00:09] LABS: Bacteria,Urine 4+ /lpf
[2024-08-26 00:12] LABS: Troponin I < 0.01 ng/ml (0.00-0.034)
[2024-08-26] MEDS: LACTATED RINGERS 1000ML 1,000 ML 999 ML IV (01:02)
--- NOTE | 2024-08-26 01:43 | PC.NURSE ---
Pt provided sips of water at this time per MD verbal order. Pt tolerating well.
[2024-08-26] MEDS: ACETAMINOPHEN 500MG TAB 1000 MG PO (02:01)
[2024-08-26 02:34] LABS: Anion Gap 7.3 mEq/L (5-15); Blood Urea Nitrogen 12 mg/dl (7-17); Calcium 8.9 mg/dl (8.4-10.2); Carbon Dioxide 26 mmol/L (22.0-30.0); Chloride 109 mmol/L (98-107); Creatinine Clearance Estimated 39 mL/min (50-200); Estimated Glomerular Filt Rate 47 ml/min (>60); GFR (African American) 57 ML/MIN (>60); Glucose 71 mg/dl (74-100); Potassium 4.3 mmoL/L (3.5-5.1); Sodium 138 mmol/L (136-145)
[2024-08-26 02:51] LABS: Troponin I < 0.01 ng/ml (0.00-0.034)
--- NOTE | 2024-08-26 03:02 | P.CONS_ITS ---
[facility] Disclaimer: The information contained in this section may have been updated after the patient was seen, as this information can be updated by other users. Medical History (Updated 08/26/24 @ 03:02 by Barb Jovel MD) Dizziness Dyspnea Nausea Headache Constipation Abnormal finding on diagnostic imaging of kidney Pyelonephritis Cirrhosis of liver Bipolar 1 disorder Hypothyroidism Hypertension Cognitive impairment Murmur, heart Obstructive sleep apnea Hypothyroid Anxiety Surgical History H/O section H/O hernia repair Hx of appendectomy Family History Other No significant family history Social History Smoking Status: Unknown if ever smoked alcohol intake: never current occupational status: disabled Travel in the last 8 weeks?: None Have you lived/traveled outside [place] in past 30 days?: No Contact w/someone who lives/traveled outside [place] past 30 days?: No Exposure to someone with infectious disease in past 14 days?: No Do you have a fever (greater than 100.4 F or 38 C)?: No Have you tested positive for COVID-19?: No Exposed to someone with COVID-19 in past 14 days?: No Do you have a sore throat?: No Do you have a cough?: No Do you have any weakness?: No Do you have any diarrhea?: No Are you experiencing any unusual bleeding?: No Do you have any muscle aches/pain?: No Do you have any abdominal pain?: No Are you experiencing loss of taste or smell?: No Exam Data for Last 24 hours Vital signs and Labs for Last 24 Hours: Temp Pulse Resp BP Pulse Ox O2 Del Method 97.9 F 74 18 90/64 L 91 L Room Air 08/25/24 22:04 08/26/24 01:00 08/25/24 22:04 08/26/24 01:00 08/26/24 01:00 08/25/24 22:04 Laboratory Results - last 24 hr 08/25/24 22:06: WBC 2.9 L, RBC 3.75 L, Hgb 12.4, Hct 36.9 L, MCV 98.4, MCH 33.1 H, MCHC 33.6, RDW 14.5, Plt Count 97 L, MPV 8.7, Neut % (Auto) 49.0, Lymph % (Auto) 31.3, [place] % (Auto) 12.5 H, Eos % (Auto) 5.2, Baso % (Auto) 1.0, Neut # (Auto) 1.4 L, Lymph # (Auto) 0.9, [place] # (Auto) 0.4, Eos # (Auto) 0.2, Baso # (Auto) 0.0, Sodium 139, Potassium 4.2, Chloride 110 H, Carbon Dioxide 25, Anion Gap 8.2, BUN 12, Creatinine 1.30 H, Estimated Creat Clear 36, Estimated GFR 43 L , Est GFR ( Amer) 52 L, Glucose 107 H, Lactate 1.3, Calcium 9.3, Total Bilirubin 1.1, AST 65 H, ALT 34, Alkaline Phosphatase 75, Troponin I < 0.01, Total Protein 7.1, Albumin 3.4 L, Globulin 3.7 H, Albumin/Globulin Ratio 0.9 L, Lipase 148 08/25/24 22:23: Urine Color Yellow, Urine Appearance Slightly cloudy, Urine pH 6.0, Ur Specific [place] 1.025, Urine Protein Negative, Urine Glucose (UA) Negative, Urine Ketones Negative, Urine Blood 2+ A, Urine Nitrate Negative, Urine Bilirubin Negative, Urine Urobilinogen 0.2, Ur Leukocyte Esterase Negative, Urine RBC 3-5, Urine WBC 5-10, Ur Squamous Epith Cells 5-10, Urine Bacteria 4+ 08/25/24 23:15: SARS-CoV-2 (PCR) Not detected, Influenza A Untype (PCR) Not detected, Influenza Type B (PCR) Not detected 08/26/24 02:16: Sodium 138, Potassium 4.3, Chloride 109 H, Carbon Dioxide 26, Anion Gap 7.3, BUN 12, Creatinine 1.20 H, Estimated Creat Clear 39, Estimated GFR 47 L, Est GFR ( Amer) 57 L, Glucose 71 L D, Calcium 8.9, Troponin I < 0.01 I & O for Last 24 hours: Intake & Output 08/23/24 08/24/24 08/25/24 08/26/24 23:59 23:59 23:59 23:59 Weight 102.058 kg Meds Home Medications and Allergies Home Medications ?Medication ?Instructions ?Recorded ?Confirmed ?Type amitriptyline 50 mg tablet 50 mg PO HS 05/02/22 06/12/24 History duloxetine 30 mg capsule,delayed 60 mg PO DAILY 05/02/22 06/12/24 History release pantoprazole 40 mg tablet,delayed 40 mg PO HS 05/02/22 06/12/24 History release melatonin 5 mg tablet 10 mg PO HS 05/03/22 06/12/24 History pyridoxine (vitamin B6) 50 mg 50 mg PO DAILY 02/21/23 06/12/24 History tablet acetaminophen 325 mg tablet 325 mg PO Q6HP PRN Mild Pain 05/14/23 06/12/24 History (Scale Score 1-4) cyclobenzaprine 5 mg tablet 5 mg PO TIDP PRN Muscle Spasm 05/14/23 06/12/24 History ferrous sulfate 324 mg (65 mg 324 mg PO Q2D 05/14/23 06/12/24 History iron) tablet,delayed release albuterol sulfate 90 mcg/actuation 1 puff inhalation Q6HP PRN 07/18/23 06/12/24 History aerosol inhaler Shortness Of Breath cholecalciferol (vitamin D3) 1,250 1,250 mcg PO FR 04/06/24 06/12/24 History mcg (50,000 unit) capsule donepezil 5 mg tablet 5 mg PO HS 04/06/24 06/12/24 History lidocaine 5 % topical patch 1 patch topical DAILYP PRN Pain 04/06/24 06/12/24 History oxcarbazepine 150 mg tablet 150 mg PO BID 04/06/24 06/12/24 History promethazine 25 mg rectal 25 mg OR Q6HP PRN Nausea And 04/06/24 06/12/24 History suppository Vomiting amoxicillin 500 mg-potassium 1 tab PO BID 5 days #10 tabs 04/07/24 06/12/24 Rx clavulanate 125 mg tablet (Augmentin) carvedilol 3.125 mg tablet 3.125 mg PO BID 30 days #60 tabs 04/07/24 06/12/24 Rx lactulose 20 gram/30 mL oral 20 g (30 mL) PO BID 30 days #1,800 04/07/24 06/12/24 Rx solution mL levothyroxine 100 mcg tablet 125 mcg (1.25 x 100 mcg) PO 04/07/24 06/12/24 Rx DAILYDM 30 days #38 tabs rifaximin 550 mg tablet (Xifaxan) 550 mg PO TID 30 days #60 tabs 04/07/24 06/12/24 Rx spironolactone 50 mg tablet 50 mg PO DAILY #30 tabs 04/07/24 06/12/24 Rx New Prescriptions to Start Prescriptions: Allergies Allergy/AdvReac Type Severity Reaction Status Date / Time amoxicillin (From Augmentin) Allergy Unknown Verified 03/25/24 17:02 allergy reaction clavulanic acid (From Allergy Unknown Verified 03/25/24 17:02 Augmentin) allergy reaction oxycodone Allergy Unknown Verified 03/25/24 17:02 allergy reaction Results Labs 08/25/24 22:06 08/26/24 02:16 Labs: Abnormal lab results 08/25/24 08/25/24 08/26/24 Range/Units 22:06 22:23 02:16 WBC 2.9 L (4.8-10.8) K/mm3 RBC 3.75 L (4.20-5.40) M/mm3 Hct 36.9 L (37.0-47.0) % MCH 33.1 H (27.0-31.2) pg Plt Count 97 L (142-424) K/mm3 [place] % (Auto) 12.5 H (1.7-9.3) % Neut # (Auto) 1.4 L (1.8-7.8) K/mm3 Chloride 110 H 109 H (98-107) mmol/L Creatinine 1.30 H 1.20 H (0.52-1.04) mg/dl Estimated GFR 43 L 47 L (>60) ml/min Est GFR ( Amer) 52 L 57 L (>60) ML/MIN Glucose 107 H 71 L D (74-100) mg/dl AST 65 H (14-36) U/L Albumin 3.4 L (3.5-5.0) g/dl Globulin 3.7 H (1.3-3.2) g/dL Albumin/Globulin Ratio 0.9 L (1.1-1.8) Urine Blood 2+ A (Negative) H & H 08/25/24 Range/Units 22:06 Hgb 12.4 (12.2-16.2) g/dL Hct 36.9 L (37.0-47.0) % All other labs normal.
--- NOTE | 2024-08-26 03:04 | PC.NURSE ---
attempted to contact [facility] for patient transfer back home, without answer. unable to leave voicemail.
--- NOTE | 2024-08-26 03:11 | PC.NURSE ---
Called [facility]. The employee informed this RN that no one there has a car/license and are unable to bulk picker the patient.
[2024-08-26 04:24] LABS: Hepatitis C Ab Qual. W/ RFX NEGATIVE (Negative)
--- NOTE | 2024-08-26 07:29 | PC.NURSE ---
pts breakfast tray was taken out of her room.
--- NOTE | 2024-08-26 07:50 | SW/DCPLANNER ---
I have updated Jeana/Marybel morgan/ [facility] that patient will need repeat BMP in 3 days.
--- NOTE | 2024-08-28 12:51 | PC.NURSE ---
I called and notified Amelia one of the pts caregivers at [facility] that she was sent in keflex for a UTI by .
== END 2024-08-26 08:01 | disposition home or self-care (01) ==
PROVIDERS: Student in an Organized Health Care Education/Training Program; Emergency Provider Emergency Medicine
DX: R10.10 Upper abdominal pain, unspecified (principal); N28.9 Disorder of kidney and ureter, unspecified; R11.0 Nausea
CPT/HCPCS: 71046; 74177; 80048; 80053; 81001; 83605; 83690; 84484; 85025; 86803; 87086; 87088; 87186; 87636; 93005; 96361; 96374; 96375; 99285; J1885; J2405; J7120; Q9967

== ENCOUNTER 2024-08-29 09:43 | Outpatient (CLI) | payer BC, OTHER, SELFPAY ==
--- NOTE | 2024-08-29 09:59 | MM_ITS ---
PROCEDURE INFORMATION: Exam: MG Bilateral Screening 3D Mammography Exam date and time: 08/29/2024 10:12 AM Age: 54 years old Clinical indication: Screening examination TECHNIQUE: Imaging protocol: Bilateral Screening tomosynthesis and 2D mammography including computer-aided detection (CAD) when performed. COMPARISON: 1. MG MM DIG SCREENING MAMM BI W/CAD 04/12/2023 9:52 AM 2. MG KAN SCRN MAMMO W/CAD BILAT 08/27/2020 4:01 PM FINDINGS: MAMMOGRAPHY: Breast composition: There are scattered areas of fibroglandular density. Mass: No suspicious masses. Architectural distortion: None. Calcifications: No suspicious calcifications. Asymmetric density: None. Skin thickening: None. Axillary adenopathy: None. IMPRESSION: No mammographic evidence of malignancy. Annual screening is recommended unless otherwise clinically indicated. ASSESSMENT: BI-RADS Category 1: Negative.
[2024-08-29 10:48] LABS: Anion Gap 5.7 mEq/L (5-15); Blood Urea Nitrogen 12 mg/dl (7-17); Calcium 9.2 mg/dl (8.4-10.2); Carbon Dioxide 26 mmol/L (22.0-30.0); Chloride 112 mmol/L (98-107); Estimated Glomerular Filt Rate 47 ml/min (>60); GFR (African American) 57 ML/MIN (>60); Glucose 91 mg/dl (74-100); Potassium 4.7 mmoL/L (3.5-5.1); Sodium 139 mmol/L (136-145)
== END 2024-08-29 23:59 | disposition home or self-care (01) ==
LOC: RAD 09:44
PROVIDERS: Student in an Organized Health Care Education/Training Program; PCP Nurse Practitioner Acute Care; Visit Provider Nurse Practitioner Family
DX: N28.9 Disorder of kidney and ureter, unspecified (principal); Z12.31 Encounter for screening mammogram for malignant neoplasm of breast
CPT/HCPCS: 36415; 77063; 77067; 80048

== ENCOUNTER 2024-09-23 04:49 | Emergency (ER) | payer BC, OTHER, SELFPAY ==
[2024-09-23 04:54] VITALS: BP 145/85; PULSE 70; RESP 16; TEMP 37; O2SAT 100; BMI 41.1
--- NOTE | 2024-09-23 04:55 | CT_ITS ---
PROCEDURE INFORMATION: Exam: CT Thoracic Spine Without Contrast Exam date and time: 09/23/2024 5:20 AM Age: 54 years old Clinical indication: Injury or trauma; Additional info: Fall, back pain TECHNIQUE: Imaging protocol: Computed tomography of the thoracic spine without contrast. Radiation optimization: All CT scans at this facility use at least one of these dose optimization techniques: automated exposure control; mA and/or kV adjustment per patient size (includes targeted exams where dose is matched to clinical indication); or iterative reconstruction. COMPARISON: CT THORACIC SPINE WO CON 10/31/2023 10:05 PM FINDINGS: Bones/joints: No acute fracture. Normal alignment. No significant disc bulge or herniation. No severe spinal canal stenosis. No significant neural foraminal narrowing. Soft tissues: Unremarkable. IMPRESSION: Unremarkable CT of the thoracic spine.
--- NOTE | 2024-09-23 04:55 | CT_ITS ---
PROCEDURE INFORMATION: Exam: CT Chest Without Contrast; Diagnostic Exam date and time: 09/23/2024 5:26 AM Age: 54 years old Clinical indication: Injury or trauma; Additional info: Fall TECHNIQUE: Imaging protocol: Diagnostic computed tomography of the chest without contrast. Radiation optimization: All CT scans at this facility use at least one of these dose optimization techniques: automated exposure control; mA and/or kV adjustment per patient size (includes targeted exams where dose is matched to clinical indication); or iterative reconstruction. COMPARISON: CT CHEST W CON 04/05/2024 6:56 PM FINDINGS: Lungs: Minor subsegmental atelectasis in the lingula. The lungs are otherwise clear. Pleural spaces: Unremarkable. No pneumothorax. No pleural effusion. Heart: The heart is normal in size. No pericardial effusion. Mild calcified coronary artery disease. Lymph nodes: Unremarkable. No enlarged lymph nodes. Vasculature: There are paraesophageal varices. The thoracic aorta is nonaneurysmal. Bones/joints: Unremarkable. No acute fracture. Soft tissues: Unremarkable. IMPRESSION: 1. No CT evidence of acute chest pathology. 2. Mild calcified coronary artery disease. 3. Paraesophageal varices. Please see separately dictated CT abdomen and pelvis report.
--- NOTE | 2024-09-23 04:55 | CT_ITS ---
PROCEDURE INFORMATION: Exam: CT Abdomen And Pelvis Without Contrast Exam date and time: 09/23/2024 5:29 AM Age: 54 years old Clinical indication: Injury or trauma; Additional info: Fall TECHNIQUE: Imaging protocol: Computed tomography of the abdomen and pelvis without contrast. Radiation optimization: All CT scans at this facility use at least one of these dose optimization techniques: automated exposure control; mA and/or kV adjustment per patient size (includes targeted exams where dose is matched to clinical indication); or iterative reconstruction. COMPARISON: CT ABDOMEN PELVIS W CON 08/25/2024 11:56 PM FINDINGS: Liver: Hepatic cirrhosis. No focal liver lesion appreciated on noncontrast imaging. Gallbladder and biliary ducts: Status post cholecystectomy. Pancreas: Normal. No ductal dilation. Spleen: Splenomegaly. The spleen measures 17.1 cm. Adrenal glands: Normal. No mass. Kidneys and ureters: Normal. No hydronephrosis. Stomach and bowel: The small bowel loops are not thickened and are nondilated. Mild constipation. The colon is otherwise unremarkable. Appendix: Status post appendectomy. Intraperitoneal space: Unremarkable. No free air. No significant fluid collection. Vasculature: The abdominal aorta is nonaneurysmal. There are multiple upper abdominal varices and paraesophageal varices. Lymph nodes: Unremarkable. No enlarged lymph nodes. Urinary bladder: Unremarkable as visualized. Reproductive: Unremarkable as visualized. Bones/joints: Unremarkable. No acute fracture. Soft tissues: Postsurgical changes in the anterior abdominal wall status post ventral hernia repair. IMPRESSION: 1. No CT evidence of acute intra-abdominal pathology. 2. Hepatic cirrhosis, splenomegaly and multiple upper abdominal varices. 3. Mild constipation.
--- NOTE | 2024-09-23 04:55 | CT_ITS ---
PROCEDURE INFORMATION: Exam: CT Head Without Contrast Exam date and time: 09/23/2024 5:15 AM Age: 54 years old Clinical indication: Injury or trauma; Additional info: Fall TECHNIQUE: Imaging protocol: Computed tomography of the head without contrast. Radiation optimization: All CT scans at this facility use at least one of these dose optimization techniques: automated exposure control; mA and/or kV adjustment per patient size (includes targeted exams where dose is matched to clinical indication); or iterative reconstruction. COMPARISON: CT HEAD/BRAIN WO CON 04/05/2024 6:53 PM FINDINGS: Brain: Chronic ischemic change and volume loss. Basal ganglia calcification. No hemorrhage. No mass. No mass effect. Cerebral ventricles: No ventriculomegaly. Paranasal sinuses: Consolidation of the right maxillary sinus and right ethmoid air cells. Modest mucosal thickening left sphenoid sinus. Mastoid air cells: Visualized mastoid air cells are well aerated. Bones: Unremarkable. No acute fracture. Soft tissues: Unremarkable. IMPRESSION: Paranasal sinus inflammatory change. Chronic volume loss. No acute traumatic injury.
--- NOTE | 2024-09-23 04:55 | CT_ITS ---
PROCEDURE INFORMATION: Exam: CT Cervical Spine Without Contrast Exam date and time: 09/23/2024 5:18 AM Age: 54 years old Clinical indication: Injury or trauma; Additional info: Fall, neck pain TECHNIQUE: Imaging protocol: Computed tomography of the cervical spine without contrast. Radiation optimization: All CT scans at this facility use at least one of these dose optimization techniques: automated exposure control; mA and/or kV adjustment per patient size (includes targeted exams where dose is matched to clinical indication); or iterative reconstruction. COMPARISON: CT CERVICAL SPINE WO CON 06/26/2023 1:46 AM FINDINGS: Bones/joints: No acute fracture. Normal alignment. C2-C3: No significant disc bulge or herniation. No severe spinal canal stenosis. No significant neural foraminal narrowing. C3-C4: No significant disc bulge or herniation. No severe spinal canal stenosis. No significant neural foraminal narrowing. C4-C5: No significant disc bulge or herniation. No severe spinal canal stenosis. No significant neural foraminal narrowing. C5-C6: No significant disc bulge or herniation. No severe spinal canal stenosis. No significant neural foraminal narrowing. C6-C7: No significant disc bulge or herniation. No severe spinal canal stenosis. No significant neural foraminal narrowing. C7-T1: No significant disc bulge or herniation. No severe spinal canal stenosis. No significant neural foraminal narrowing. Lungs: Lung apices are normal. Soft tissues: Unremarkable. IMPRESSION: No acute findings.
--- NOTE | 2024-09-23 04:56 | CT_ITS ---
PROCEDURE INFORMATION: Exam: CT Lumbar Spine Without Contrast Exam date and time: 09/23/2024 5:23 AM Age: 54 years old Clinical indication: Injury or trauma; Additional info: Fall TECHNIQUE: Imaging protocol: Computed tomography of the lumbar spine without contrast. Radiation optimization: All CT scans at this facility use at least one of these dose optimization techniques: automated exposure control; mA and/or kV adjustment per patient size (includes targeted exams where dose is matched to clinical indication); or iterative reconstruction. COMPARISON: CT LUMBAR SPINE WO CON 10/31/2023 10:07 PM FINDINGS: Bones/joints: No acute fracture. Normal alignment. No significant disc bulge or herniation. No severe spinal canal stenosis. No significant neural foraminal narrowing. There is mild chronic degenerative facet arthropathy in the lower. Soft tissues: Unremarkable. IMPRESSION: No CT evidence of an acute abnormality of the lumbar spine.
--- NOTE | 2024-09-23 05:01 | HMH.EDGENADL ---
Discharge Plan Disposition Patient Disposition: Home, Self-Care Prescriptions Prescriptions: No Action lidocaine 5 % Adhesive Patch,Medicated 1 patch TOPICAL DAILYP PRN (Reason: Pain) Rx Instructions: leave on most painful area for up to 12 hrs oxcarbazepine 150 mg Tablet 150 mg PO BID donepezil 5 mg Tablet 5 mg PO HS cholecalciferol (vitamin D3) 1,250 mcg (50,000 unit) Capsule 1,250 mcg PO FR promethazine 25 mg suppository 25 mg AK Q6HP PRN (Reason: Nausea And Vomiting) lactulose 20 gram/30 mL Solution 20 g PO BID 30 Days Qty: 1800 0RF amoxicillin-pot clavulanate [Augmentin] 500-125 mg tablet 1 tab PO BID 5 Days Qty: 10 0RF levothyroxine 100 mcg Tablet 125 mcg PO DAILYDM 30 Days Qty: 38 1RF Xifaxan 550 mg Tablet 550 mg PO TID 30 Days Qty: 60 2RF carvedilol 3.125 mg Tablet 3.125 mg PO BID 30 Days Qty: 60 0RF spironolactone 50 mg tablet 50 mg PO DAILY Qty: 30 0RF amitriptyline 50 mg Tablet 50 mg PO HS pantoprazole 40 mg Tablet,Delayed Release (Dr/Ec) 40 mg PO HS duloxetine 30 mg Capsule,Delayed Release(Dr/Ec) 60 mg PO DAILY melatonin 5 mg tablet 10 mg PO HS pyridoxine (vitamin B6) 50 mg tablet 50 mg PO DAILY acetaminophen 325 mg Tablet 325 mg PO Q6HP PRN (Reason: Mild Pain (Scale Score 1-4)) cyclobenzaprine 5 mg Tablet 5 mg PO TIDP PRN (Reason: Muscle Spasm) ferrous sulfate 324 mg (65 mg iron) tablet,delayed release (DR/EC) 324 mg PO Q2D Rx Instructions: take 1 tab every other day albuterol sulfate 90 mcg/actuation HFA aerosol inhaler 1 puff inhalation Q6HP PRN (Reason: Shortness Of Breath) Patient Comments: INHALE 1 PUFF BY MOUTH EVERY 6 HOURS NEEDED may keep AT bedside (shortness of breath) ondansetron 4 mg tablet,disintegrating 4 mg PO Q6H PRN (Reason: nausea and vomiting) Qty: 10 0RF cephalexin 500 mg capsule 1,000 mg PO BID 7 Days Qty: 28 0RF Activity Restrictions/Add. Instructions Additional Instructions/Restrictions: Please follow-up with your primary care provider. Please return to the emergency department if you develop any new or worsening symptoms or become concerned for your health. Clinical Impressions Clinical Impression: Fall, Neck pain Print Language Print Language: [place] Citizen Discharge ED Provider: Federico Benjamin General Adult HPI General Chief complaint: Fall Stated complaint: FALL Time Seen by Provider: 09/23/24 04:55 History of Present Illness HPI narrative: 54-year-old female with history of cirrhosis hypertension bipolar disorder, resident at [facility], presents after fall. Patient reports pain in her neck primarily, but also reports pain all over. No obvious signs of trauma on exam. Patient grimaces everywhere you touch her all over her entire body. Related Data Home Medications ?Medication ?Instructions ?Recorded ?Confirmed amitriptyline 50 mg tablet 50 mg PO HS 05/02/22 06/12/24 duloxetine 30 mg capsule,delayed 60 mg PO DAILY 05/02/22 06/12/24 release pantoprazole 40 mg tablet,delayed 40 mg PO HS 05/02/22 06/12/24 release melatonin 5 mg tablet 10 mg PO HS 05/03/22 06/12/24 pyridoxine (vitamin B6) 50 mg 50 mg PO DAILY 02/21/23 06/12/24 tablet acetaminophen 325 mg tablet 325 mg PO Q6HP PRN Mild Pain 05/14/23 06/12/24 (Scale Score 1-4) cyclobenzaprine 5 mg tablet 5 mg PO TIDP PRN Muscle Spasm 05/14/23 06/12/24 ferrous sulfate 324 mg (65 mg 324 mg PO Q2D 05/14/23 06/12/24 iron) tablet,delayed release albuterol sulfate 90 mcg/actuation 1 puff inhalation Q6HP PRN 07/18/23 06/12/24 aerosol inhaler Shortness Of Breath cholecalciferol (vitamin D3) 1,250 1,250 mcg PO FR 04/06/24 06/12/24 mcg (50,000 unit) capsule donepezil 5 mg tablet 5 mg PO HS 04/06/24 06/12/24 lidocaine 5 % topical patch 1 patch topical DAILYP PRN Pain 04/06/24 06/12/24 oxcarbazepine 150 mg tablet 150 mg PO BID 04/06/24 06/12/24 promethazine 25 mg rectal 25 mg AK Q6HP PRN Nausea And 04/06/24 06/12/24 suppository Vomiting Previous Rx's ?Medication ?Instructions ?Recorded amoxicillin 500 mg-potassium 1 tab PO BID 5 days #10 tabs 04/07/24 clavulanate 125 mg tablet (Augmentin) carvedilol 3.125 mg tablet 3.125 mg PO BID 30 days #60 tabs 04/07/24 lactulose 20 gram/30 mL oral 20 g (30 mL) PO BID 30 days #1,800 04/07/24 solution mL levothyroxine 100 mcg tablet 125 mcg (1.25 x 100 mcg) PO 04/07/24 DAILYDM 30 days #38 tabs rifaximin 550 mg tablet (Xifaxan) 550 mg PO TID 30 days #60 tabs 04/07/24 spironolactone 50 mg tablet 50 mg PO DAILY #30 tabs 04/07/24 ondansetron 4 mg disintegrating 4 mg PO Q6H PRN nausea and 08/26/24 tablet vomiting #10 tabs cephalexin 500 mg capsule 1,000 mg (2 x 500 mg) PO BID 7 08/28/24 days #28 caps Allergies Allergy/AdvReac Type Severity Reaction Status Date / Time amoxicillin (From Augmentin) Allergy Unknown Verified 03/25/24 17:02 allergy reaction clavulanic acid (From Allergy Unknown Verified 03/25/24 17:02 Augmentin) allergy reaction oxycodone Allergy Unknown Verified 03/25/24 17:02 allergy reaction PFSH PFS Disclaimer: The information contained in this section may have been updated after the patient was seen, as this information can be updated by other users. Medical History (Updated 09/23/24 @ 06:07 by Federico Benjamin MD) Dizziness Dyspnea Nausea Headache Constipation Abnormal finding on diagnostic imaging of kidney Pyelonephritis Cirrhosis of liver Bipolar 1 disorder Hypothyroidism Hypertension Cognitive impairment Murmur, heart Obstructive sleep apnea Hypothyroid Anxiety Surgical History H/O section H/O hernia repair Hx of appendectomy Family History Other No significant family history Social History Smoking Status: Smoker, status unknown alcohol intake: never current occupational status: disabled Travel in the last 8 weeks?: None Other Medical History Have you received the Flu Vaccine for this season: No Have you received the Pneumonia Vaccine: No ROS Obtained: Yes All systems reviewed & no additional complaints except as documented Physical Exam General General appearance: alert and in no apparent distress Head Head exam: atraumatic and normocephalic Eye Eye exam: Present normal appearance, PERRL and EOMI ENT ENT exam: Present normal oropharynx and normal external ear exam Neck Neck exam: Present normal inspection, full ROM and tenderness (Generalized) Chest Chest inspection: Present normal inspection, symmetric chest wall rise and tenderness (Generalized) Respiratory Respiratory exam: Present normal lung sounds bilaterally; Absent respiratory distress Cardiovascular Cardiovascular exam: Present regular rate and normal rhythm Abdominal Exam Abdominal exam: Present soft and tenderness (Generalized); Absent distention or guarding External exam: Absent erythema Extremities Exam Extremities exam: Present normal inspection and tenderness (Generalized); Absent edema or joint swelling Back Exam Back exam: Present normal inspection; Absent tenderness Neurological Exam Neurological exam: Present alert and oriented X3; Absent motor sensory deficit Psychiatric Psychiatric exam: Present normal affect and normal mood Skin Skin exam: Present warm, dry and normal color Lymphatic Lymphatic Findings: no adenopathy Medical Decision Making Medical Records Medical records reviewed: Yes I reviewed the patient's medical records. Screening: Per USPSTF and CDC recommendations, given the prevalence of disease in our region, it is our hospital?s policy to screen for HIV and viral Hepatitis for all patients aged 18 and over and those with ongoing risk factors. Darrian Inquiry Pt receiving controlled substance: No Darrian was queried for this patient: No Vital Signs: 09/23/24 04:54 09/23/24 05:06 09/23/24 05:37 Temperature 98.6 F 98.6 F 97.6 F Temperature Source Oral Oral Oral Pulse Rate 70 78 Pulse Rate [Left] 70 Respiratory Rate 16 16 14 Blood Pressure 145/85 H 115/81 Blood Pressure [Right Arm] 145/85 H Blood Pressure Mean [Right Arm] 105 Blood Pressure Source Automatic Cuff Automatic Cuff Blood Pressure Source [Right Arm] Automatic Cuff Blood Pressure Position Supine Blood Pressure Position [Right Arm] Supine 02 Sat by Pulse Oximetry 100 100 100 Oxygen Delivery Method Room Air Room Air Room Air Lab Data Lab results reviewed: Yes I reviewed the patient's lab results. Lab Results 09/23/24 04:40: WBC 3.4 L, RBC 4.42, Hgb 14.9, Hct 42.9, MCV 97.1, MCH 33.7 H, MCHC 34.7, RDW 13.5, Plt Count 106 L, MPV 8.7, Neut % (Auto) 56.3, Lymph % (Auto) 24.4, [place] % (Auto) 11.0 H, Eos % (Auto) 6.8, Baso % (Auto) 1.2, Neut # (Auto) 1.9, Lymph # (Auto) 0.8, [place] # (Auto) 0.4, Eos # (Auto) 0.2, Baso # (Auto) 0.0, PT 11.7, INR 1.06, Sodium 141, Potassium 4.6, Chloride 109 H, Carbon Dioxide 27, Anion Gap 9.6, BUN 13, Creatinine 1.20 H, Estimated Creat Clear 87, Estimated GFR 47 L, Est GFR ( Amer) 57 L, Glucose 84, Calcium 9.8, Total Bilirubin 1.5 H, AST 79 H, ALT 38, Alkaline Phosphatase 82, Total Protein 7.7, Albumin 4.2, Globulin 3.5 H, Albumin/Globulin Ratio 1.2 09/23/24 04:40 09/23/24 04:40 Orders (Tests/Meds): ED MEDICATIONS Discontinued Medications Generic Name Dose Route Start Last Admin Trade Name Freq PRN Reason Stop Dose Admin Acetaminophen 1,000 mg 09/23/24 04:59 09/23/24 05:12 Acetaminophen 500mg Tab PO 09/23/24 05:00 1,000 mg ONCE ONE Administration ORDERS Category Date Time Status CT abdomen pelvis wo con Stat Cat Scan 09/23/24 04:[address] cervical spine wo con Stat Cat Scan 09/23/24 04:[address] chest wo con Stat Cat Scan 09/23/24 04:[address] head/brain wo con Stat Cat Scan 09/23/24 04:[address] lumbar spine wo con Stat Cat Scan 09/23/24 04:[address] thoracic spine wo con Stat Cat Scan 09/23/24 04:55 Completed CBC w/Auto Diff [Complete Blood Count Auto Diff] Stat Lab 09/23/24 04:40 Completed CMP [Comprehensive Metabolic Panel] Stat Lab 09/23/24 04:40 Completed INR [Prothrombin Time INR] Stat Lab 09/23/24 04:40 Completed Medical Decision Narrative: 54-year-old female with history of bipolar disorder, hypertension, cirrhosis, resident at [facility] presents after unwitnessed fall at [facility].. History was obtained via interactive discussion with EMS, patient, chart review. On arrival, patient is afebrile, hemodynamically stable, moving all extremities spontaneously. Full physical exam performed and significant for generalized tenderness, patient does not seem to have a reliable exam. She does primarily complain of pain in the neck however. Differential includes but is not limited to intracranial trauma intrathoracic trauma intra-abdominal trauma spine trauma extremity trauma. Patient was given Tylenol for symptomatic management and correction of underlying abnormalities. Workup initiated including Noncon scans of the head neck back chest abdomen pelvis, basic labs. On re-evaluation, patient [remains afebrile, HD stable.] Laboratory workup independently interpreted by me and significant for mild leukocytopenia and thrombocytopenia. No significant electrolyte derangement, AST mildly elevated but at baseline for patient. Imaging independently interpreted by me and significant for no intracranial bleed, no cervical or thoracic or lumbar fracture, no rib fracture, no obvious intra-abdominal trauma. See radiology read for full review of final results. Given patient history, exam and workup, patient's presentation most likely represents fall with neck pain. The c-collar was cleared at bedside. Patient was discharged in stable condition with return precautions. Procedures Risk/Benefits of Procedure(s) Were Explained: Yes Critical Care Critical Care Time Critical Care Time: No
[2024-09-23 05:06] VITALS: BP 145/85; PULSE 70; RESP 16; TEMP 37; O2SAT 100
[2024-09-23 05:06] LABS: Basophils % 1.2 % (0.1-2.0); Eosinophils # 0.2 Kmm3 (0.0-0.4); Eosinophils % 6.8 % (0.1-12.0); Hematocrit 42.9 % (37.0-47.0); Hemoglobin 14.9 g/dL (12.2-16.2); Immature Granulocytes # 0.01 10^3uL; Immature Granulocytes % 0.3 %; Lymphocytes # 0.8 K/mm3 (0.7-4.5); Lymphocytes % 24.4 % (10-50); Mean Corpuscular HGB Conc 34.7 g/dL (31.8-35.4); Mean Corpuscular Hemoglobin 33.7 pg (27.0-31.2); Mean Corpuscular Volume 97.1 fl (81-99); Mean Platelet Volume 8.7 fl (7.4-10.4); Monocytes # 0.4 K/mm3 (0.1-1.0); Neutrophils # 1.9 K/mm3 (1.8-7.8); Neutrophils % 56.3 % (37.0-80.0); Nucleated Red Blood Cells # 0 10^3/uL; Nucleated Red Blood Cells % 0 %; Platelet Count 106 K/mm3 (142-424); Red Blood Count 4.42 M/mm3 (4.20-5.40); Red Cell Distribution Width 13.5 % (11.5-17.5); Red Cell Distribution Width-SD 48.3 fL; White Blood Count 3.4 K/mm3 (4.8-10.8)
[2024-09-23 05:08] LABS: Albumin Level 4.2 g/dl (3.5-5.0); Chloride 109 mmol/L (98-107); Potassium 4.6 mmoL/L (3.5-5.1); Sodium 141 mmol/L (136-145)
[2024-09-23 05:11] LABS: Alanine Aminotransferase 38 U/L (12-78); Albumin/Globulin Ratio 1.2 (1.1-1.8); Alkaline Phosphatase 82 U/L (38-126); Anion Gap 9.6 mEq/L (5-15); Aspartate Amino Transferase 79 U/L (14-36); Bilirubin,Total 1.5 mg/dl (0.2-1.3); Blood Urea Nitrogen 13 mg/dl (7-17); Calcium 9.8 mg/dl (8.4-10.2); Carbon Dioxide 27 mmol/L (22.0-30.0); Creatinine Clearance Estimated 87 mL/min (50-200); Estimated Glomerular Filt Rate 47 ml/min (>60); GFR (African American) 57 ML/MIN (>60); Globulin 3.5 g/dL (1.3-3.2); Glucose 84 mg/dl (74-100); Total Protein,Serum 7.7 g/dl (6.3-8.2)
[2024-09-23 05:12] LABS: INR 1.06 (0.9-1.1); Prothrombin Time 11.7 seconds (10.1-12.5)
[2024-09-23] MEDS: ACETAMINOPHEN 500MG TAB 1000 MG PO (05:12)
--- NOTE | 2024-09-23 05:22 | PC.NURSE ---
Pt in radiology
[2024-09-23 05:37] VITALS: BP 115/81; PULSE 78; RESP 14; TEMP 36.4; O2SAT 100
[2024-09-23 06:10] VITALS: BP 115/81; PULSE 78; RESP 16; TEMP 36.6; O2SAT 98
--- NOTE | 2024-09-23 07:10 | PC.NURSE ---
report received from ARCADIO Ashford. rounded on pt at this time. she was resting with her eyes closed. I informed her we were just waiting on the [facility] for transport. no needs at this time
[2024-09-23 07:45] VITALS: BP 121/87; PULSE 76; RESP 15; TEMP 36.6; O2SAT 98
--- NOTE | 2024-09-23 07:57 | PC.NURSE ---
Spoke to Mirela who stated the van is on the way up to get the patient
--- NOTE | 2024-09-23 08:05 | PC.NURSE ---
pt ambulated with stand by assist to the [facility]. no complaints at this time.
--- NOTE | 2024-09-23 08:08 | PC.NURSE ---
[facility] care [facility] van to transport pt back to [facility]. Pants sent in pt belonging bag.
== END 2024-09-23 08:07 | disposition home or self-care (01) ==
PROVIDERS: Emergency Provider Emergency Medicine; PCP Nurse Practitioner Acute Care
DX: M54.2 Cervicalgia (principal); R10.84 Generalized abdominal pain; W19.XXXA Unspecified fall, initial encounter
CPT/HCPCS: 70450; 71250; 72125; 72128; 72131; 74176; 80053; 85025; 85610; 99285

== ENCOUNTER 2024-11-19 08:26 | Emergency (ER) | payer BC, OTHER, SELFPAY ==
--- OUTSIDE RECORDS SUMMARY | 2024-09-30 14:02 | XMS_ITS | Encounter Summary ---
Author Organization Healthcare Address [address] [place] [address] Care Team Providers Care Open Cut Examiner Name Role Phone Pcp, No Primary Care Provider Celsa Lopez RN Primary Care Provider Unava ilable Reason for Referral * Home Health (Routine) - Authorized Specialty Diagnoses / Procedures Referred By Reed t Referred To Contact Home Health Services / Case Management Diagnoses Acute encephalopathy Momo Akhtar MD [address] [place] [address] Phone: tel: fax: Referral ID Status Reason Start Date Expiration Date Visits Requested Visits Authorized [id number] Authorized Specialty Services Required 10/20/2024 04/21/2026 999 999 * Home Health (Routine) - Authorized Specialty Diagnoses / Procedures Referred By Reed bowen Referred To Contact Home Health Services / Case Management Diagnoses HE (hepatic encephalopathy) (CMS/HCC) Momo Akhtar MD [address] [place] [address] Phone: tel: fax: Referral ID Status Reason Start Date Expiration Date Visits Requested Visits Authorized [id number] Authorized Specialty Services Required 10/17/2024 04/18/2026 999 999 Reason for Visit * Reason Comments Altered Mental Status * Auth/Cert (Routine) Specialty Diagnoses / Procedures Referred By Reed bowen Referred To Contact Diagnoses Acute encephalopathy Rosetta Matthews MD [address] [place] [address] Phone: tel: fax: [facility] [address] [place] [phone] Phone: tel: Referral ID Status Reason Start Date Expiration Date Visits Re quested Visits Authorized [id number] 1 1 Encounter Details Date Type Department Care Team (Latest Contact Info) Description 09/30/2024 2:02 PM EDT - 10/21/2024 2:13 PM EDT Hospital Encounter [facility] [address] [place] [address] Edda Young, DO [address] [place] [address] Rosetta Matthews MD [address] [place] [address] Momo Akhtar MD [address] [place] [address] Evette Goodrich MD [address] [place] [address] Teetee Christianson MD [address] [place] [address] Acute encephalopathy (Primary Dx); HE (hepatic encephalopathy) (CMS/HCC); Thrombocytopenia (CMS/HCC); Dysarthria; Chest pain, unspecified type; Hepatic encephalopathy (CMS/HCC); Altered mental status, unspecified altered mental status type [place] Dis[place] [facility] [place] History Tobacco Use Types Packs/Day Years Used Date Smoking Tobacco: Never Smokeless Tobacco: Never Alcohol Use Standard Drinks/Week Comments Never 0 (1 standard drink = 0.6 oz pur e alcohol) Humiliation, Afraid, Rape, and Kick questionnair e Answer Date Recorded Within the last year, have y ou been afraid of your partner or ex-partner? No 10/01/2024 Within the last year, have y ou been humiliated or emotionally abused in other ways by your partner or ex-partner? No Within the last year, have y ou been kicked, hit, slapped, or otherwise physically hurt by your partner or ex-partner? No 10/01/2024 Within the last year, have y ou been raped or forced to have any kind of sexual activity by your partner or ex-partner? No 10/01/2024 Hunger Vital Sign Answer Date Recorded Within the past 12 months, y ou worried that your food would run out before you got the money to buy more. Never true 10/02/19 25 Within the past 12 months, t he food you bought just didn't last and you didn't have money to get more. Never true 10/01/2024 PRAPARE - Transportation Answer Date Re corded In the past 12 months, has l ack of transportation kept you from medical appointments or from getting medications? No 07/2024 In the past 12 months, has l ack of transportation kept you from meetings, work, or from getting things needed for daily living? No 10/01/2024 Housing Stability Vital Sign Answer Darshan e Recorded In the last 12 months, was t here a time when you were not able to pay the mortgage or rent on time? No 10/01/2024 In the past 12 months, how m any times have you moved where you were living? 1 10/01/2024 At any time in the past 12 m [address] [place], were you homeless or living in a assisted (including now)? No 10/01/2024 Utilities Answer Date Recorded In the past 12 months has th e electric, gas, oil, or water company threatened to shut off services in your home? No 10/01/2024 Comments No Sex and Gender Information Value Date Recorded Sex Assigned at Not on file Legal Sex Female 6:18 PM EDT Gender Identity Not on file Sexual Orientation Not on file documented as of this encounter Last Filed Vital Signs Vital Sign Reading Time Taken Comments Blood Pressure 109/60 10/21/2024 11:34 AM EDT Pulse 75 10/21/2024 11:34 AM EDT Temperature 36.7 C (98 F) 10/21/2024 11:34 AM EDT Respiratory Rate 18 10/21/2024 11:34 AM EDT Oxygen Saturation 91% 10/21/2024 11:34 AM EDT Inhaled Oxygen Concentration - - Weight 109 kg (239 lb 3.2 oz) 10/20/2024 6:00 PM EDT Height 152.4 cm (5') 10/01/2024 7:54 AM EDT Body Mass Index 46.72 10/01/2024 7:54 AM EDT documented in this encounter Functional Status * Calculated C-SSRS Risk Score (Lifetime/Recent) Answer Date of Assessment Author No Risk Indicated 10/20/2024 7:00 PM EDT Kiana Chang * Question Answer Date of Assessment Author 1. Wish to be (Past 1 Month) No 025 7:00 PM EDT Kiana Chang 2. Non-Specific Active Suici marco Thoughts (Past 1 Month) No 10/20/2024 7:00 PM EDT Dudley Chang 6. Suicidal Behavior (Lifetime) No 7:00 PM EDT Kiana Chang documented as of this encounter Medications at Time of Discharge acetaminophen (Tylenol) 325 MG tablet Take 1 tablet by mouth every 6 hours as needed. Under [place] law, monthly prescriptions (30 days) can be refilled at 25 days and three-month prescriptions (90 days) at 80 days. Please contact the insurance company with questions if refills are denied. albuterol 108 (90 Base) MCG/ACT inhaler Inhale 1 puff 4 times a day as needed for wheezing. amitriptyline (Elavil) 50 MG tablet Take 1 tablet by mouth nightly. carvedilol (Coreg) 3.125 MG tablet Take 1 tablet by mouth 2 times a day with meals. cetirizine (ZyrTEC) 10 MG tablet Take 1 tablet by mouth daily. cholecalciferol (True Vitamin D3) 1.25 MG (00733 UT) capsule Take 1 capsule by mouth 1 time per week. cyclobenzaprine (Flexeril) 5 MG tablet Take 1 tablet by mouth 3 times a day as needed for muscle spasms. diclofenac (Voltaren) 1 % topical gel Place 2 g on the skin 2 times a day. Apply as directed to lower back and both knees. donepezil (Aricept) 5 MG tablet Take 1 tablet by mouth nightly. DULoxetine (Cymbalta) [address] capsule Take 1 capsule by mouth daily. Do not crush or chew. 30 capsule 1 10/22/2024 5 ferrous sulfate 324 (65 Fe) MG EC tablet Take 1 tablet (324 mg total) by mouth every other day. Do not crush, chew, or split. 30 tablet 3 01/18/2022 fluticasone (Flonase) 50 MCG/ACT nasal spray Administer 2 sprays into each nostril daily. Shake gently. Before first use, prime pump. After use, clean tip and replace cap. lactulose (Chronulac) 10 GM/15ML solution Take 30 mL by mouth 3 times a day. Goal 3-4 bowel movements per day. 2700 mL 10/21/2024 5 levothyroxine (Synthroid, Levoxyl) 88 MCG tablet Take 1 tablet by mouth daily before breakfast. lidocaine (Lidoderm) 5 % patch Apply 1 patch topically daily. Remove & discard patch within 12 hours or as directed by MD. Melatonin 5 MG tablet tablet Take 2 tablets by mouth. OXcarbazepine (Trileptal) 150 MG tablet Take 1 tablet by mouth 2 times a day. pantoprazole (Protonix) 40 MG EC tablet Take 1 tablet by mouth daily before breakfast. Do not crush, chew, or split. pyridoxine 50 MG tablet Take 1 tablet by mouth daily. rifAXIMin (Xifaxan) 550 MG tablet Take 1 tablet by mouth 3 times a day. spironolactone (Aldactone) 50 MG tablet Take 1 tablet by mouth daily. thiamine (Vitamin B-1) 100 MG tablet Take 1 tablet by mouth daily. 30 tablet 10/21/2024 5 documented as of this encounter Miscellaneous Notes * Nursing Note - Jayant Albarado, RN - 10/21/2024 2:13 PM EDT Patient discharged from hospital back to facility. Report was called yesterday to Anushka at [facility]. Patient was given discharge summary and AVS with instructions to give to facility. Patient andtransporter stopped by pharmacy on the way to discharge lounge to pickle maker medications. Patient belongings sent with her including her rollator walker. No PIV to remove. * Progress Notes - Vincent Gonzalez - 10/21/2024 1:29 PM EDT Case Management Discharge Note Andrew Oconnor 54 y.o. female CSN: [id number] Admission: 09/30/2024 2:02 PM Primary Problem: HE (hepatic encephalopathy) (CMS/HCC) Primary Online Affiliate Marketing Manager: Primary Caregiver: Other (Comment) ([facility]) Assistance Available at Discharge: Current Outpatient/Agency/Support Group: adult day care, assisted living facility Availability of Care Givers (#Hours): 10-14 hours Family/Online Affiliate Marketing Manager(s) Willingness Assessed to care for patient at home: Yes Family/Online Affiliate Marketing Manager(s) Readiness Assessed to care for patient at home: Yes Housing Circumstances-Z Codes: Housing Circumstances (select all that apply): Low Income (101-300% Federal Poverty Guidlines) - Z596 Patient Referred to Financial or Community Resources: Financial Resources: Other (Comment) (Pt Guardian reported no Financial or Community Resources needs at this time,.) Discharge Facility/Level of Care Needs: Discharge Facility/Level of Care Needs: [facility] [place] Patient's Choice of Community Agency(s): Patient's Choice of Community Agency(s): [facility] Patient/Family Anticipated Services at Transition: Patient/Family Anticipated Services at Transition: counseling case manager, community agency DME/Equipment Needed after Discharge: Equipment Currently Used at Home: none Equipment Needed After Discharge: walkerconcepción Readmission Within the Last 30 Days: Readmission Within the Last 30 Days: no previous admission in last 30 days Medicare Documentation: Medicare Second Notice?: Comment (ANTHEM/ANTHEM TRADITIONAL/[place] STATE/F[place] BC[place]) Follow-up: DME-DURABLE MEDICAL EQUIPMENT [address], [address] [facility] [address] Follow up Provider for Rollator [facility] [address] Follow up Provider for Home Health Discharge Transportation: Transportation Anticipated: medical transport Transportation Home at Discharge: Medical Transport Has discharge transport been arranged?: Yes What day is the transport expected?: 10/21/24 What time is the transport expected?: 1500 Follow Up Transport: Transportation Needed to Follow up Appoinments: Medical Transport Additional Comments: Patient is medically ready to transfer back to: [facility] ([facility]) Transportation scheduled with: [facility] on: 10/21/2024 at: 1500 RN report number: [phone] Fax DC summary to: [facility] recommend patient to bring copy of discharge summary and Medications with her on returning to the facility. SW arranged HH servies with [facility], SW followed up with State Guardian (Judi Owens) andJohn (Rd Lab Technician) for [facility] both agreeable with discharge plan with the patient returning to [facility] at this time. No further services planned. Vincent Gonzalez MSW, COMPOSITION ROOFER Senior Fish Farmer/Case Management [facility] * Discharge Summary - Teetee Christianson MD - 10/21/2024 12:27 PM EDT Hospitalization Admit Date/Time: 09/30/2024 2:02 PM Admitting Attending: Rosetta Mtathews Discharge Date: 10/21/24 Discharge Attending Physician: Teetee Christianson MD PCP name and Address: Celsa Pereira RN [place] [address] Referring provider name and address: No referring provider defined for this encounter. Chief Concern, Brief History of Present Illness, and Hospital Course Andrew Oconnor is a 50 y/o F with Hx of BOWDEN Cirrhosis with history of HE, mild cognitive delay, childhood ALL, meningioma, migraines, hypothyroidism, HTN, peptic ulcer disease, Depression/Anxiety, FERNANDEZ who presents to ED from [facility] with altered mental status found to have hepatic ence phalopathy. Hepatic encephalopathy, Portal Hypertension - Patient had not been adequately taking lactulose while at care center and presented with acute mental status change. - Thorough ED evaluation ruled out other potential causes of encephalopathy. Negative CTH, CXR, UA,CBC wnl, electrolytes wnl. Ammonia 149. MELD 3.0 of 12. - Patient initially tender in the RUQ but no evidence of acute inflammation on CT. Abdominal ultrasound did not show any ascitic pocket of fluid lowering concern of SBP. Pain resolved as encephalopathy resolved. -Patient was started on lactulose 20 g TID, rifaximin 550mg, PPI, carvedilol titrated to 3-5 bowel movements per day. - Significant improvement in mental status back to baseline on discharge. 2. Acute Kidney Injury iso poor PO intake - Patient likely with poor PO intake while encephalopathic - UA with high specific gravity. Creatinine was 1.28 on presentation, baseline around 0.8-1.0. - Patient was rehydrated with IV fluids and encouraging PO intake. - CMP was monitored with improvement in creatinine. - Returned to baseline with strong PO intake and stable at discharge. 3. Left Upper Extremity nodule - Patient reports this appeared first a bruise after receiving a shot (unclear what shot, possibly pLOV). Tender to touch - Ultrasound shows a 9mm cystic/fluid filled mass with well defined margins and hyperechoic rim, not completely compressible with probe - will likely resolve spontaneously - outpatient follow up with general surgery 4. Mouth Pain - Patient reports mouth pain in lower gums under her dentures - Recommend dentistry follow up Surgeries and Procedures Procedures performed in this encounter Procedures Critical Care Medication List .. acetaminophen 325 MG tablet Commonly known as: Tylenol Take 1 tablet by mouth every 6 hours as needed. Under [place] law, monthly prescriptions (30 days)can be refilled at 25 days and three-month prescriptions (90 days) at 80 days. Please contact the insurance company with questions if refills are denied. albuterol 108 (90 Base) MCG/ACT inhaler Inhale 1 puff 4 times a day as needed for wheezing. amitriptyline 50 MG tablet Commonly known as: Elavil Take 1 tablet by mouth nightly. carvedilol 3.125 MG tablet Commonly known as: Coreg Take 1 tablet by mouth 2 times a day with meals. cetirizine 10 MG tablet Commonly known as: ZyrTEC Take 1 tablet by mouth daily. cyclobenzaprine 5 MG tablet Commonly known as: Flexeril Take 1 tablet by mouth 3 times a day as needed for muscle spasms. diclofenac 1 % topical gel Commonly known as: Voltaren Place 2 g on the skin 2 times a day. Apply as directed to lower back and both knees. donepezil 5 MG tablet Commonly known as: Aricept Take 1 tablet by mouth nightly. DULoxetine [address] capsule Commonly known as: Cymbalta Take 1 capsule by mouth daily. Do not crush or chew. ferrous sulfate 324 (65 Fe) MG EC tablet Take 1 tablet (324 mg total) by mouth every other day. Do not crush, chew, or split. fluticasone 50 MCG/ACT nasal spray Commonly known as: Flonase Administer 2 sprays into each nostril daily. Shake gently. Before first use, prime pump. After use,clean tip and replace cap. lactulose 10 GM/15ML solution Commonly known as: Chronulac Take 30 mL by mouth 3 times a day. Goal 3-4 bowel movements per day. levothyroxine 88 MCG tablet Commonly known as: Synthroid, Levoxyl Take 1 tablet by mouth daily before breakfast. lidocaine 5 % patch Commonly known as: Lidoderm Apply 1 patch topically daily. Remove & discard patch within 12 hours or as directed by MD. Melatonin 5 MG tablet tablet Take 2 tablets by mouth. OXcarbazepine 150 MG tablet Commonly known as: Trileptal Take 1 tablet by mouth 2 times a day. pantoprazole 40 MG EC tablet Commonly known as: Protonix Take 1 tablet by mouth daily before breakfast. Do not crush, chew, or split. pyridoxine 50 MG tablet Commonly known as: Vitamin B-6 Take 1 tablet by mouth daily. rifAXIMin 550 MG tablet Commonly known as: Xifaxan Take 1 tablet by mouth 3 times a day. spironolactone 50 MG tablet Commonly known as: Aldactone Take 1 tablet by mouth daily. thiamine 100 MG tablet Commonly known as: Vitamin B-1 Take 1 tablet by mouth daily. True Vitamin D3 1.25 MG (31555 UT) capsule Generic drug: cholecalciferol Take 1 capsule by mouth 1 time per week. Where to Get Your Medications Information about where to get these medications is not yet available Ask your nurse or doctor about these medications DULoxetine [address] capsule lactulose 10 GM/15ML solution thiamine 100 MG tablet Discharge Diagnosis Medical Problems Active and Resolved Hospital Problems Hospital * (Principal) HE (hepatic encephalopathy) (CMS/HCC) Acute encephalopathy KYLIE (acute kidney injury) (CMS/HCC) Hypoglycemia Outpatient Follow-Up No future appointments. Test Results Pending At Discharge Pending Labs Order Current Status Prepare Leukocyte Reduced RBC Preliminary result Pertinent Physical Exam At Time of Discharge Physical Exam Constitutional: Appearance: She is not ill-appearing. HENT: Head: Normocephalic and atraumatic. Mouth/Throat: Mouth: Mucous membranes are moist. Cardiovascular: Rate and Rhythm: Normal rate. Pulses: Normal pulses. Heart sounds: Normal heart sounds. Pulmonary: Effort: Pulmonary effort is normal. No respiratory distress. Breath sounds: Normal breath sounds. Abdominal: General: Abdomen is flat. Palpations: Abdomen is soft. Tenderness: There is no abdominal tenderness. Musculoskeletal: Right lower leg: Edema present. Left lower leg: Edema present. Skin: General: Skin is warm. Capillary Refill: Capillary refill takes less than 2 seconds. Comments: Left posterior arm cystic mass, improved compared to prior days Neurological: Mental Status: She is alert and oriented to person, place, and time. Mental status is at baseline. Discharge Disposition/Condition Disposition: Other (specify)Duncan Houser reported that patient can return with HH services. SW will arrange HH services and Transportation. PT/OT is recommending Home Health services and Rollator for at home usage, SW ordered Rollator via DME. Condition: Stable (s/sx potential problems absent or manageable) I spent < 30 minutes of patient care and instruction time in preparation for this discharge. * Care Plan - Jayant Albarado RN - 10/21/2024 10:57 AM EDT Problem: Fall Injury Risk Goal: Absence of Fall and Fall-Related Injury Outcome: Ongoing, Progressing Intervention: Identify and Manage Contributors Flowsheets Taken 10/20/2024 1322 by Jayant Albarado RN Self-Care Promotion: independence encouraged Taken 10/19/2024 1251 by Josey Bar RN Medication Review/Management: medications reviewed Intervention: Promote Injury-Free Environment Flowsheets (Taken 10/21/2024 0800) Safety Promotion/Fall Prevention: activity supervised assistive device/personal items within reach clutter-free environment maintained fall prevention program maintained lighting adjusted mobility aid in reach nonskid shoes/slippers when out of bed room organization consistent safety round/check completed toileting scheduled Problem: Liver Failure Goal: Optimal Coping with Liver Failure Outcome: Ongoing, Progressing Intervention: Support and Optimize Psychosocial Response Flowsheets (Taken 10/19/2024 1251 by Josey Bar RN) Supportive Measures: active listening utilized self-care encouraged Diversional Activities: movies Family/Support System Care: self-care encouraged support provided involvement promoted Goal: Absence of Bleeding Outcome: Ongoing, Progressing Intervention: Monitor and Manage Bleeding Flowsheets (Taken 10/21/2024 1054) Bleeding Precautions: gentle oral care promoted Goal: Fluid and Electrolyte Balance Outcome: Ongoing, Progressing Intervention: Monitor and Manage Fluid and Electrolyte Balance Flowsheets (Taken 10/19/2024 1251 by Josey Bar RN) Fluid/Electrolyte Management: fluids provided Goal: Minimize and Manage Gastrointestinal Symptoms Outcome: Ongoing, Progressing Intervention: Monitor and Support Gastrointestinal Function Flowsheets Taken 10/21/2024 0800 by Jayant Albarado RN Isolation Precautions: precautions maintained protective Taken 10/19/2024 1251 by Josey Bar RN Fluid/Electrolyte Management: fluids provided Oral Care: mouth wash rinse oral rinse provided Goal: Absence of Infection Signs and Symptoms Outcome: Ongoing, Progressing Intervention: Prevent or Manage Infection Flowsheets Taken 10/21/2024 0800 by Jayant Albarado RN Isolation Precautions: precautions maintained protective Taken 10/19/2024 1251 by Josey Bar RN Infection Management: aseptic technique maintained Goal: Optimize Neurologic Function Outcome: Ongoing, Progressing Intervention: Monitor and Optimize Neurologic Status Flowsheets Taken 10/21/2024 0017 by Kiana Chang Head of Bed (HOB) Positioning: HOB at 30 degrees Taken 10/20/2024 1100 by Jayant Albarado RN Sensory Stimulation Regulation: quiet environment promoted Taken 10/17/2024 1735 by Jayant Albarado RN Seizure Precautions: clutter-free environment maintained activity supervised Goal: Optimal Pain Control, Comfort and Function Outcome: Ongoing, Progressing Intervention: Prevent or Manage Pain Flowsheets (Taken 10/19/2024 1251 by Josey Bar RN) Sleep/Rest Enhancement: awakenings minimized consistent schedule promoted regular sleep/rest pattern promoted relaxation techniques promoted Goal: Effective Oxygenation and Ventilation Outcome: Ongoing, Progressing Intervention: Promote Airway Secretion Clearance Flowsheets Taken 10/21/2024 1054 Breathing Techniques/Airway Clearance: deep/controlled cough encouraged Cough And Deep Breathing: done independently per patient Taken 10/21/2024 0900 Activity Management: up in chair Problem: Self-Care Deficit Goal: Improved Ability to Complete Activities of Daily Living Outcome: Ongoing, Progressing Problem: IADL (Instrumental Activities of Daily Living) Impairment Goal: Optimal Safe IADL Peformance Outcome: Ongoing, Progressing Intervention: Optimize IADL (Instrumental Activity of Daily Living) Skills Flowsheets (Taken 10/20/2024 1322) Energy Conservation Techniques: correct body mechanics utilized IADL Promotion: safety strategies incorporated Problem: Liver Failure Goal: Hemodynamic Stability Outcome: Met Goal: Improved Oral Intake Outcome: Met Problem: Glycemic Control Impaired Goal: Blood Glucose Level Within Target Range Outcome: Met Goal: Minimize Hypoglycemia Risk Outcome: Met * Care Plan - Kiana Chang - 10/21/2024 3:27 AM EDT Problem: Fall Injury Risk Goal: Absence of Fall and Fall-Related Injury Outcome: Ongoing, Progressing Problem: Liver Failure Goal: Optimal Coping with Liver Failure Outcome: Ongoing, Progressing Goal: Absence of Bleeding Outcome: Ongoing, Progressing Goal: Fluid and Electrolyte Balance Outcome: Ongoing, Progressing Goal: Minimize and Manage Gastrointestinal Symptoms Outcome: Ongoing, Progressing Goal: Hemodynamic Stability Outcome: Ongoing, Progressing Goal: Absence of Infection Signs and Symptoms Outcome: Ongoing, Progressing Goal: Optimize Neurologic Function Outcome: Ongoing, Progressing Goal: Improved Oral Intake Outcome: Ongoing, Progressing Goal: Optimal Pain Control, Comfort and Function Outcome: Ongoing, Progressing Goal: Effective Oxygenation and Ventilation Outcome: Ongoing, Progressing Problem: Self-Care Deficit Goal: Improved Ability to Complete Activities of Daily Living Outcome: Ongoing, Progressing Problem: IADL (Instrumental Activities of Daily Living) Impairment Goal: Optimal Safe IADL Peformance Outcome: Ongoing, Progressing Problem: Glycemic Control Impaired Goal: Blood Glucose Level Within Target Range Outcome: Ongoing, Progressing Goal: Minimize Hypoglycemia Risk Outcome: Ongoing, Progressing * Progress Notes - Gucci Martines - 10/20/2024 3:59 PM EDT Images from the original note were not included. Hospital Medicine Progress Note Subjective Length of stay: 20 days Brief Patient Summary: Andrew Oconnor is a 50 y/o F with Hx of BOWDEN Cirrhosis with history of HE, mild cognitive delay, childhood ALL, meningioma, migraines, hypothyroidism, HTN, PUD, Depression/Anxiety, FERNANDEZ who presents to ED with altered mental status secondary to hepatic encephalopathy. Currently on lactulose 20 TID, rifaximin, coreg. Subjective NAEON. Mentation strong and at baseline. At goal of 3-4 BM daily. Continues to await placement to [facility] with home health, pending approval. No other acute concerns. Review of Systems Review of Systems All other systems reviewed and are negative. Objective Objective Last Recorded Vitals Blood pressure 128/63, pulse 64, temperature 36.4 ??C (97.5 ??F), resp. rate 18, height 1.524 m (5'), weight 106 kg (234 lb 9.1 oz), SpO2 95%. Physical Exam Constitutional: Appearance: She is not ill-appearing. HENT: Head: Normocephalic and atraumatic. Mouth/Throat: Mouth: Mucous membranes are moist. Cardiovascular: Rate and Rhythm: Normal rate. Pulses: Normal pulses. Heart sounds: Normal heart sounds. Pulmonary: Effort: Pulmonary effort is normal. No respiratory distress. Breath sounds: Normal breath sounds. Abdominal: General: Abdomen is flat. Palpations: Abdomen is soft. Tenderness: There is no abdominal tenderness. Musculoskeletal: Right lower leg: Edema present. Left lower leg: Edema present. Skin: General: Skin is warm. Capillary Refill: Capillary refill takes less than 2 seconds. Comments: Left posterior arm cystic mass, improved compared to prior days Neurological: Mental Status: She is alert and oriented to person, place, and time. Mental status is at baseline. Assessment/Plan Assessment & Plan Principal Problem: HE (hepatic encephalopathy) (CMS/HCC) Active Problems: Acute encephalopathy KYLIE (acute kidney injury) (CMS/HCC) Hypoglycemia Andrew Oconnor is a 50 y/o F with Hx of BOWDEN Cirrhosis with history of HE, mild cognitive delay, childhood ALL, meningioma, migraines, hypothyroidism, HTN, PUD, Depression/Anxiety, FERNANDEZ who presents to ED with altered mental status secondary to hepatic encephalopathy. Today: - Pending home health with living facility - tentative plan for discharge tomorrow at 3pm - Continue current treatment Acute: #Hepatic Encephalopathy #MASH Cirrhosis #Portal Hypertension -Patient was noted to be altered and not acting like herself on 09/30/24. - Infectious, intracranial, and toxic workup was negative in the ED. Patient had missed many doses of Lactulose at facility and was highly likely to be altered due to HE. Patient back to baseline. Plan: - Continue Lactulose 20g TID, titrating to 3-4 bowel movements daily - Continue Rifaximin 550mg BID - Continue PPI - Continue Coreg - Continue alcides #Left Upper Extremity nodule, improving - Patient reports this appeared first a bruise after receiving a shot (unclear what shot, possibly pLOV). Tender to touch - Ultrasound shows a 9mm cystic/fluid filled mass with well defined margins and hyperechoic rim, not completely compressible with probe PLAN: - will likely resolve spontaneously - outpatient follow up with general surgery #Mouth Pain - Patient reports mouth pain in lower gums under her dentures - Recommend dentistry follow up - continue mouthwash Resolved: #Acute Kidney Injury, resolved - Likely due to poor intake, patient has high specific gravity on UA - Baseline creatinine ~ 0.8-1.0. Current Creatinine back at baseline, improved from 1.28. - Patient doing well with PO intake Plan: - Continue to encourage PO intake. - Monitor I&Os #Hypoglycemia, resolved - FSBG 65 on arrival, likely due to poor intake in setting of altered mental status and dehydration Plan: - Monitor - Encourage PO intake #Sinusitis, resolved - Noted on CT imaging - Mildly symptomatic Plan - Supportive care #Neck Tenderness, resolved - Low suspicion to be related to thyroid. Low suspicion for tooth or neck abscess based on exam. - Neck US with benign small reactive lymph node Chronic Conditions #Meningioma - stable on CTH, followed by [facility] in past #HTN: continue Carvedilol 3.125mg BID; hold amlodipine #Hypothyroidism - continue Levothyroxine 88mcg #VENUS - continue iron PO #PUD: Continue PPI daily #HFpEF - continue Coreg and Spironolactone #Depression/Anxiety/Possible Conversion Disorder/Bipolar - continue Oxcarbazepine 150 mg BID, Duloxetine 60 mg daily, Amitriptyline 50 mg nightly #Headaches/Migraines - chronic #Vitamin D Deficiency - Vitamin D 1-25 normal #FERNANDEZ - not on cpap #Morbid Obesity - Weight 112 kg, complicates all aspects of care Fluids: PO DVT Ppx: PLOV Diet: Regular diet Code status: Full Code Discharge Planning: Anticipated discharge to: Rehab facility (specify), precert in motion Anticipated discharge needs: None Family Contact: GracielaJudi Follow-up: PCP Gastroenterology No future appointments. Gucci Martines, MS4 Cosigned by Momo Akhtar MD at 10/20/2024 6:58 PM EDT Associated attestation - Momo Akhtar MD - 10/20/2024 6:58 PM EDT I saw and evaluated the patient with the medical/[employer]/PA student. I discussed the case with the medical/CAR BARN LABORER/PA student and agree with the findings and plan as documented. I personally performed the Examand Medical Decision Making. Working on transition of patient back to [facility]. Unable to accommodate ride for today. Plan fordischarge tomorrow. * Lexi Nascimento, PharmD - 10/20/2024 2:42 PM EDT Images from the original note were not included. [id number] Understanding Hepatic Encephalopathy (HE) Hepatic encephalopathy (HE) is a brain disease that occurs when toxins that are normally cleared bythe liver build up in the brain. It happens more in people with the liver disease cirrhosis. It cancause mild symptoms that are hard to notice. But over time, it may cause symptoms such as memory changes and confusion. But symptoms can go away if HE is treated early. How to say it [id number] What causes hepatic encephalopathy? Researchers don?t know all the reasons HE happens. But they know HE is caused by toxins that stay in the body too long. These are normally cleared out of the body by the liver. But when the liver doesn?t work normally, these harmful substances stay in the blood and travel to the brain. This leads to damage in the brain. It can also cause swelling and pressure in the brain. You're more at risk for HE if you have any of these: ? Damaged and scarred liver (cirrhosis) ? Sudden liver failure from an infection or other cause ? Chronic liver disease. This can be from alcohol-related liver disease or non- alcoholic fatty liver disease (NAFLD). ? Portosystemic shunt. This happens when circulating blood bypasses the liver. It's also called a liver shunt. The liver normally removes toxins from the blood. But with a liver shunt, toxins build up in the blood and aren't cleared from the body. A liver shunt can be present at or can happenlater. If you have liver disease, the symptoms of HE can happen suddenly if you have any of these: ? Bleeding in the stomach or intestines ? Constipation ? Fluid loss (dehydration) ? Infection ? Use of sleep medicines ? Use of antidepressant medicines ? Surgery Symptoms of hepatic encephalopathy HE may happen slowly over time if you have liver disease. The symptoms may be mild at first, and come and go. HE can cause symptoms such as: ? Mood changes ? Trouble sleeping ? Trouble paying attention ? Memory problems In severe cases, HE can cause: ? Low energy and tiredness (lethargy) ? Slurred speech ? Confusion ? Severe anxiety ? Trouble thinking ? Trouble doing physical tasks ? Impulsive behavior ? Shaking of hands or arms (called flapping) Diagnosing hepatic encephalopathy Your healthcare provider will ask about your symptoms and health history. They'll ask if you've been exposed to medicines or toxins that cause HE. You may have tests such as: ? Blood tests. These check for infection and low liver function. ? Urine tests. These look for infection and how well your kidneys are working. ? Paracentesis. This is a procedure where a small needle is used to remove extra fluid from your belly (abdomen). The fluid may be tested for infection. ? Imaging tests of the brain. An MRI or CT scan of the brain may be done. This is to see if your symptoms are caused by a different problem in the brain, such as a tumor. ? Electroencephalogram (EEG). This test looks at the electrical activity in the brain. Treatment for hepatic encephalopathy Treatment will depend on your symptoms, your age, and your general health. It will also depend on how severe the condition is, and what's causing your HE. Your treatment may include: ? Medicine to treat infection ? Medicine to control bleeding ? Stopping medicines that may cause symptoms ? Antibiotics and lactulose, which can help fewer toxins be absorbed in your gut ? Treating kidney problems Talk with your healthcare providers about the risks, benefits, and possible side effects of all medicines. Possible complications of hepatic encephalopathy Untreated, HE can lead to coma and . When to call your healthcare provider Call your healthcare provider if you have any of the following: ? Fever of 100.4??F (38??C) or higher, or as directed by your provider ? Symptoms that don?t get better, or that get worse ? New symptoms Last Reviewed Date: 2021 00:00:00 ?? [id number] The [employer]. All rights reserved. This information is not intended as a substitute for professional medical care. Always follow your healthcare professional's instructions. * Care Plan - Jayant Albarado RN - 10/20/2024 1:25 PM EDT Problem: Fall Injury Risk Goal: Absence of Fall and Fall-Related Injury 10/20/2024 1322 by Jayant Albarado RN Outcome: Ongoing, Progressing 10/20/2024 1100 by Jayant Albarado RN Outcome: Ongoing, Progressing Intervention: Identify and Manage Contributors Flowsheets (Taken 10/20/2024 1322) Self-Care Promotion: independence encouraged Intervention: Promote Injury-Free Environment Flowsheets (Taken 10/20/2024 1322) Safety Promotion/Fall Prevention: activity supervised assistive device/personal items within reach clutter-free environment maintained fall prevention program maintained lighting adjusted mobility aid in reach nonskid shoes/slippers when out of bed room organization consistent safety round/check completed toileting scheduled Problem: Liver Failure Goal: Optimal Coping with Liver Failure 10/20/2024 1322 by Jayant Albarado RN Outcome: Ongoing, Progressing 10/20/2024 1100 by Jayant Albarado RN Outcome: Ongoing, Progressing Goal: Absence of Bleeding 10/20/2024 1322 by Jayant Albarado RN Outcome: Ongoing, Progressing 10/20/2024 1100 by Jayant Albarado, ARCADIO Outcome: Ongoing, Progressing Goal: Fluid and Electrolyte Balance 10/20/2024 1322 by Jayant Albarado, ARCADIO Outcome: Ongoing, Progressing 10/20/2024 1100 by Jayant Albarado, ARCADIO Outcome: Ongoing, Progressing Goal: Minimize and Manage Gastrointestinal Symptoms 10/20/2024 1322 by Jayant Albarado, ARCADIO Outcome: Ongoing, Progressing 10/20/2024 1100 by Jayant Albarado RN Outcome: Ongoing, Progressing Goal: Hemodynamic Stability 10/20/2024 1322 by Jayant Albarado, ARCADIO Outcome: Ongoing, Progressing 10/20/2024 1100 by Jayant Albarado RN Outcome: Ongoing, Progressing Goal: Absence of Infection Signs and Symptoms 10/20/2024 1322 by Jayant Albarado, ARCADIO Outcome: Ongoing, Progressing 10/20/2024 1100 by Jayant Albarado, ARCADIO Outcome: Ongoing, Progressing Goal: Optimize Neurologic Function 10/20/2024 1322 by Jayant Albarado, ARCADIO Outcome: Ongoing, Progressing 10/20/2024 1100 by Jayant Albarado, ARCADIO Outcome: Ongoing, Progressing Intervention: Monitor and Optimize Neurologic Status Flowsheets (Taken 10/20/2024 1100) Hepatic Encephalopathy Management: airway protection maintained Sensory Stimulation Regulation: quiet environment promoted Head of Bed (HOB) Positioning: HOB elevated Goal: Improved Oral Intake 10/20/2024 1322 by Jayant Albarado RN Outcome: Ongoing, Progressing 10/20/2024 1100 by Jayant Albarado RN Outcome: Ongoing, Progressing Goal: Optimal Pain Control, Comfort and Function 10/20/2024 1322 by Jayant Albarado, ARCADIO Outcome: Ongoing, Progressing 10/20/2024 1100 by Jayant Albarado RN Outcome: Ongoing, Progressing Goal: Effective Oxygenation and Ventilation 10/20/2024 1322 by Jayant Albarado, ARCADIO Outcome: Ongoing, Progressing 10/20/2024 1100 by Jayant Albarado, ARCADIO Outcome: Ongoing, Progressing Problem: Self-Care Deficit Goal: Improved Ability to Complete Activities of Daily Living 10/20/2024 1322 by Jayant Albarado RN Outcome: Ongoing, Progressing 10/20/2024 1100 by Jayant Albarado RN Outcome: Ongoing, Progressing Intervention: Promote Activity and Functional [place] Flowsheets (Taken 10/20/2024 1322) Activity Assistance Provided: assistance, stand-by Self-Care Promotion: independence encouraged Problem: IADL (Instrumental Activities of Daily Living) Impairment Goal: Optimal Safe IADL Peformance 10/20/2024 1322 by Jayant Albarado RN Outcome: Ongoing, Progressing 10/20/2024 1100 by Jayant Albarado, RN Outcome: Ongoing, Progressing Intervention: Optimize IADL (Instrumental Activity of Daily Living) Skills Flowsheets (Taken 10/20/2024 1322) Energy Conservation Techniques: correct body mechanics utilized IADL Promotion: safety strategies incorporated Problem: Adult Inpatient Plan of Care Goal: Plan of Care Review 10/20/2024 1322 by Jayant Albarado, ARCADIO Outcome: Met 10/20/2024 1100 by Jayant Albarado RN Outcome: Ongoing, Progressing Goal: Patient-Specific Goal (Individualized) 10/20/2024 1322 by Jayant Albarado, RN Outcome: Met 10/20/2024 1100 by Jayant Albarado RN Outcome: Ongoing, Progressing Goal: Absence of Hospital-Acquired Illness or Injury 10/20/2024 1322 by Jayant Albarado, ARCADIO Outcome: Met 10/20/2024 1100 by Jayant Albarado, ARCADIO Outcome: Ongoing, Progressing Goal: Optimal Comfort and Wellbeing 10/20/2024 1322 by Jayant Albarado, ARCADIO Outcome: Met 10/20/2024 1100 by Jayant Albarado, RN Outcome: Ongoing, Progressing Goal: Readiness for Transition of Care 10/20/2024 1322 by Jayant Albarado, ARCADIO Outcome: Met 10/20/2024 1100 by Jayant Albarado RN Outcome: Ongoing, Progressing Problem: Pain Acute Goal: Optimal Pain Control and Function 10/20/2024 1322 by Jayant Albarado, ARCADIO Outcome: Met 10/20/2024 1100 by Jayant Albarado, ARCADIO Outcome: Ongoing, Progressing * Care Plan - Jayant Albarado RN - 10/20/2024 11:00 AM EDT Problem: Adult Inpatient Plan of Care Goal: Plan of Care Review Outcome: Ongoing, Progressing Goal: Patient-Specific Goal (Individualized) Outcome: Ongoing, Progressing Goal: Absence of Hospital-Acquired Illness or Injury Outcome: Ongoing, Progressing Goal: Optimal Comfort and Wellbeing Outcome: Ongoing, Progressing Goal: Readiness for Transition of Care Outcome: Ongoing, Progressing Problem: Fall Injury Risk Goal: Absence of Fall and Fall-Related Injury Outcome: Ongoing, Progressing Problem: Pain Acute Goal: Optimal Pain Control and Function Outcome: Ongoing, Progressing Problem: Liver Failure Goal: Optimal Coping with Liver Failure Outcome: Ongoing, Progressing Goal: Absence of Bleeding Outcome: Ongoing, Progressing Goal: Fluid and Electrolyte Balance Outcome: Ongoing, Progressing Goal: Minimize and Manage Gastrointestinal Symptoms Outcome: Ongoing, Progressing Goal: Hemodynamic Stability Outcome: Ongoing, Progressing Goal: Absence of Infection Signs and Symptoms Outcome: Ongoing, Progressing Goal: Optimize Neurologic Function Outcome: Ongoing, Progressing Intervention: Monitor and Optimize Neurologic Status Flowsheets (Taken 10/20/2024 1100) Hepatic Encephalopathy Management: airway protection maintained Sensory Stimulation Regulation: quiet environment promoted Head of Bed (HOB) Positioning: HOB elevated Goal: Improved Oral Intake Outcome: Ongoing, Progressing Goal: Optimal Pain Control, Comfort and Function Outcome: Ongoing, Progressing Goal: Effective Oxygenation and Ventilation Outcome: Ongoing, Progressing Problem: Self-Care Deficit Goal: Improved Ability to Complete Activities of Daily Living Outcome: Ongoing, Progressing Problem: IADL (Instrumental Activities of Daily Living) Impairment Goal: Optimal Safe IADL Peformance Outcome: Ongoing, Progressing * Progress Notes - Vincent Gonzalez - 10/20/2024 8:35 AM EDT Case Management Adult Progress Note Andrew Oconnor 54 y.o. female CSN: [id number] Admission: 09/30/2024 2:02 PM Primary Problem: HE (hepatic encephalopathy) (CMS/HCC) Anticipated Discharge Date: (Possible Sunday10/20/2024) Plan of care reviewed with pt's care team; and per MD, pt is not medically ready for discharge due to SW attempted to discuss with Duncan Houser (Admission Coordinator, was unable to reach facility and was informed that (Matthew- Admission Coordinator) was not available and was the only person to make decision on individual returning to the facility. SW attempted calling State [facility] (Judi) to discuss with Judi about next discharge steps. SW left a voicemail with State [facility]. PT/OT is recommending Home Health services and [facility] for at home usage, SW ordered [facility] via [employer]. ADDENDUM: Duncan Houser reported that patient can return with HH services. SW will arrange HH servicesand Transportation. SW attempted to update Judi via phone and left 2 voicemail for Judi. SW will continue to follow-up with pt's MD and care team on their progress and discharge plan. Vincent Gonzalez MSW, COMPOSITION ROOFER * Care Plan - Kiana Chang - 10/20/2024 3:32 AM EDT Problem: Adult Inpatient Plan of Care Goal: Plan of Care Review Outcome: Ongoing, Progressing Flowsheets (Taken 10/19/2024 1251 by Josey Bar, RN) Progress: improving Plan of Care Reviewed With: patient Goal: Patient-Specific Goal (Individualized) Outcome: Ongoing, Progressing Goal: Absence of Hospital-Acquired Illness or Injury Outcome: Ongoing, Progressing Goal: Optimal Comfort and Wellbeing Outcome: Ongoing, Progressing Goal: Readiness for Transition of Care Outcome: Ongoing, Progressing Problem: Fall Injury Risk Goal: Absence of Fall and Fall-Related Injury Outcome: Ongoing, Progressing Problem: Pain Acute Goal: Optimal Pain Control and Function Outcome: Ongoing, Progressing Problem: Liver Failure Goal: Optimal Coping with Liver Failure Outcome: Ongoing, Progressing Goal: Absence of Bleeding Outcome: Ongoing, Progressing Goal: Fluid and Electrolyte Balance Outcome: Ongoing, Progressing Goal: Minimize and Manage Gastrointestinal Symptoms Outcome: Ongoing, Progressing Goal: Hemodynamic Stability Outcome: Ongoing, Progressing Goal: Absence of Infection Signs and Symptoms Outcome: Ongoing, Progressing Goal: Optimize Neurologic Function Outcome: Ongoing, Progressing Goal: Improved Oral Intake Outcome: Ongoing, Progressing Goal: Optimal Pain Control, Comfort and Function Outcome: Ongoing, Progressing Goal: Effective Oxygenation and Ventilation Outcome: Ongoing, Progressing Problem: Self-Care Deficit Goal: Improved Ability to Complete Activities of Daily Living Outcome: Ongoing, Progressing Problem: IADL (Instrumental Activities of Daily Living) Impairment Goal: Optimal Safe IADL Peformance Outcome: Ongoing, Progressing * Care Plan - Josey Bar RN - 10/19/2024 6:53 PM EDT Problem: Adult Inpatient Plan of Care Goal: Plan of Care Review 10/19/20241851 by Josey Bar RN Outcome: Ongoing, Progressing 10/19/2024 1251 by Josey Bar RN Flowsheets (Taken 10/19/2024 1251) Progress: improving Plan of Care Reviewed With: patient Goal: Patient-Specific Goal (Individualized) 10/19/2024 185 by Josey Bar RN Outcome: Ongoing, Progressing 10/19/2024 1251 by Josey Bar RN Flowsheets (Taken 10/19/2024 0900) Patient/Family-Specific Goals (Include Timeframe): provide education on her level of education r/t DC plans throughout shift Individualized Care Needs: educate on DC plan Anxieties, Fears or Concerns: Denies Goal: Absence of Hospital-Acquired Illness or Injury Outcome: Ongoing, Progressing Intervention: Identify and Manage Fall Risk Flowsheets (Taken 10/19/2024 1251) Safety Promotion/Fall Prevention: activity supervised assistive device/personal items within reach clutter-free environment maintained fall prevention program maintained lighting adjusted mobility aid in reach nonskid shoes/slippers when out of bed room organization consistent safety round/check completed toileting scheduled Intervention: Prevent Skin Injury Flowsheets Taken 10/19/2024 1100 by Josey Bar RN Body Position: sitting up in bed Taken 10/19/2024 0323 by Shakir Guidry RN Skin Protection: incontinence pads utilized pulse oximeter probe site changed transparent dressing maintained protective footwear used Intervention: Prevent and Manage VTE (Venous Thromboembolism) Risk Flowsheets (Taken 10/19/2024 1100) VTE Prevention/Management: medication Intervention: Prevent Infection Flowsheets (Taken 10/19/2024 1251) Infection Prevention: environmental surveillance performed equipment surfaces disinfected hand hygiene promoted rest/sleep promoted single patient room provided Goal: Optimal Comfort and Wellbeing Outcome: Ongoing, Progressing Intervention: Monitor Pain and Promote Comfort Flowsheets (Taken 10/19/2024 1251) Pain Management Interventions: medication (see MAR) care clustered Intervention: Provide Person-Centered Care Flowsheets (Taken 10/19/2024 1251) Trust Relationship/Rapport: care explained choices provided emotional support provided empathic listening provided questions answered questions encouraged reassurance provided thoughts/feelings acknowledged Goal: Readiness for Transition of Care Outcome: Ongoing, Progressing Intervention: Mutually Develop Transition Plan Flowsheets Taken 10/19/2024 1251 by Josey Bar RN Current Outpatient/Agency/Support Group: adult day care assisted living facility Outpatient/Agency/Support Group Needs: assisted living facility adult day care senior living Current Discharge Risk: homeless lack of support system/caregiver Concerns to be Addressed: discharge planning Readmission Within the Last 30 Days: no previous admission in last 30 days Patient/Family Anticipated Services at Transition: counseling case managerstation manager agency Taken 10/01/2024 1403 by Vincent Gonzalez Equipment Currently Used at Home: none Problem: Fall Injury Risk Goal: Absence of Fall and Fall-Related Injury Outcome: Ongoing, Progressing Intervention: Identify and Manage Contributors Flowsheets (Taken 10/19/2024 1251) Medication Review/Management: medications reviewed Self-Care Promotion: independence encouraged BADL personal objects within reach BADL personal routines maintained Intervention: Promote Injury-Free Environment Flowsheets (Taken 10/19/2024 1251) Safety Promotion/Fall Prevention: activity supervised assistive device/personal items within reach clutter-free environment maintained fall prevention program maintained lighting adjusted mobility aid in reach nonskid shoes/slippers when out of bed room organization consistent safety round/check completed toileting scheduled Problem: Pain Acute Goal: Optimal Pain Control and Function Outcome: Ongoing, Progressing Intervention: Optimize Psychosocial Wellbeing Flowsheets (Taken 10/19/2024 1251) Supportive Measures: active listening utilized self-care encouraged Diversional Activities: movies Intervention: Develop Pain Management Plan Flowsheets (Taken 10/19/2024 1251) Pain Management Interventions: medication (see MAR) care clustered Intervention: Prevent or Manage Pain Flowsheets (Taken 10/19/2024 1251) Sensory Stimulation Regulation: care clustered lighting decreased quiet environment promoted television on Bowel Elimination Promotion: adequate fluid intake promoted ambulation promoted Sleep/Rest Enhancement: awakenings minimized consistent schedule promoted regular sleep/rest pattern promoted relaxation techniques promoted Medication Review/Management: medications reviewed Problem: Liver Failure Goal: Optimal Coping with Liver Failure Outcome: Ongoing, Progressing Intervention: Support and Optimize Psychosocial Response Flowsheets (Taken 10/19/2024 1251) Supportive Measures: active listening utilized self-care encouraged Diversional Activities: [employer] Family/Support System Care: self-care encouraged support provided involvement promoted Goal: Absence of Bleeding Outcome: Ongoing, Progressing Intervention: Monitor and Manage Bleeding Flowsheets (Taken 10/19/2024 1251) Bleeding Precautions: foot protection facilitated Goal: Fluid and Electrolyte Balance Outcome: Ongoing, Progressing Intervention: Monitor and Manage Fluid and Electrolyte Balance Flowsheets (Taken 10/19/2024 1251) Fluid/Electrolyte Management: fluids provided Goal: Minimize and Manage Gastrointestinal Symptoms Outcome: Ongoing, Progressing Intervention: Monitor and Support Gastrointestinal Function Flowsheets (Taken 10/19/2024 1251) Perineal Care: absorbent pad Fluid/Electrolyte Management: fluids provided Nausea/Vomiting Interventions: stimuli minimized Isolation Precautions: precautions maintained Oral Care: mouth wash rinse oral rinse provided Goal: Blood Glucose Level Within Target Range Outcome: Met Goal: Hemodynamic Stability Outcome: Ongoing, Progressing Goal: Absence of Infection Signs and Symptoms Outcome: Ongoing, Progressing Intervention: Prevent or Manage Infection Flowsheets (Taken 10/19/2024 1251) Infection Management: aseptic technique maintained Isolation Precautions: precautions maintained Goal: Optimize Neurologic Function Outcome: Ongoing, Progressing Intervention: Monitor and Optimize Neurologic Status Flowsheets Taken 10/19/2024 1251 by Josey Bar RN Hepatic Encephalopathy Management: airway protection maintained Sensory Stimulation Regulation: care clustered lighting decreased quiet environment promoted television on Head of Bed (HOB) Positioning: HOB elevated Taken 10/17/2024 1735 by Jayant Albarado RN Seizure Precautions: clutter-free environment maintained activity supervised Goal: Improved Oral Intake Outcome: Ongoing, Progressing Intervention: Promote and Optimize Nutrition Intake Flowsheets (Taken 10/19/2024 1251) Oral Nutrition Promotion: physical activity promoted Nutrition Interventions: frequent small meals provided Goal: Optimal Pain Control, Comfort and Function Outcome: Ongoing, Progressing Intervention: Prevent or Manage Pain Flowsheets (Taken 10/19/2024 1251) Pain Management Interventions: medication (see MAR) care clustered Sleep/Rest Enhancement: awakenings minimized consistent schedule promoted regular sleep/rest pattern promoted relaxation techniques promoted Goal: Effective Oxygenation and Ventilation Outcome: Ongoing, Progressing Intervention: Promote Airway Secretion Clearance Flowsheets (Taken 10/19/2024 1251) Activity Management: activity adjusted per tolerance ambulated in room ambulated to bathroom Cough And Deep Breathing: done with encouragement Intervention: Optimize Oxygenation and Ventilation Flowsheets (Taken 10/19/2024 1251) Head of Bed (HOB) Positioning: HOB elevated Problem: Self-Care Deficit Goal: Improved Ability to Complete Activities of Daily Living Outcome: Ongoing, Progressing Intervention: Promote Activity and Functional [place] Flowsheets (Taken 10/19/2024 1251) Activity Assistance Provided: assistance, stand-by Adaptive Equipment Use: use encouraged Self-Care Promotion: independence encouraged BADL personal objects within reach BADL personal routines maintained Problem: IADL (Instrumental Activities of Daily Living) Impairment Goal: Optimal Safe IADL Peformance Outcome: Ongoing, Progressing Intervention: Optimize IADL (Instrumental Activity of Daily Living) Skills Flowsheets (Taken 10/19/2024 1251) Energy Conservation Techniques: correct body mechanics utilized correct posture facilitated IADL Promotion: activity adapted to wheelchair level * Progress Notes - Gucci Martines - 10/19/2024 2:06 PM EDT Images from the original note were not included. Hospital Medicine Progress Note Subjective Length of stay: 19 days Brief Patient Summary: Andrew Oconnor is a 50 y/o F with Hx of BOWDEN Cirrhosis with history of HE, mild cognitive delay, childhood ALL, meningioma, migraines, hypothyroidism, HTN, PUD, Depression/Anxiety, FERNANDEZ who [facility] with altered mental status secondary to hepatic encephalopathy. Currently on lactulose 20 TID, rifaximin, coreg. Subjective NAEON. Strong PO intake and continues to urinate well. Wants to go home. Reports continued discomfort of left upper arm bruise. Also complains of mouth pain under her dentures. At goal of 3-4 BM daily. Continues to await placement to [facility] with home health. No other acute concerns. Review of Systems Review of Systems All other systems reviewed and are negative. Objective Objective Last Recorded Vitals Blood pressure 101/55, pulse 79, temperature 36.7 ??C (98 ??F), temperature source Oral, resp. rate17, height 1.524 m (5'), weight 106 kg (234 lb 9.1 oz), SpO2 90%. Physical Exam Constitutional: Appearance: She is not ill-appearing. HENT: Head: Normocephalic and atraumatic. Mouth/Throat: Mouth: Mucous membranes are moist. Comments: No obvious ulcers or sores seen under dentures Cardiovascular: Rate and Rhythm: Normal rate. Pulses: Normal pulses. Heart sounds: Normal heart sounds. Pulmonary: Effort: Pulmonary effort is normal. No respiratory distress. Breath sounds: Normal breath sounds. Abdominal: General: Abdomen is flat. Palpations: Abdomen is soft. Tenderness: There is no abdominal tenderness. Musculoskeletal: Right lower leg: Edema present. Left lower leg: Edema present. Skin: General: Skin is warm. Capillary Refill: Capillary refill takes less than 2 seconds. Comments: Left posterior arm cystic mass Neurological: Mental Status: She is alert and oriented to person, place, and time. Mental status is at baseline. Assessment/Plan Assessment & Plan Principal Problem: HE (hepatic encephalopathy) (CMS/HCC) Active Problems: Acute encephalopathy KYLIE (acute kidney injury) (CMS/HCC) Hypoglycemia Andrew Oconnor is a 50 y/o F with Hx of BOWDEN Cirrhosis with history of HE, mild cognitive delay, childhood ALL, meningioma, migraines, hypothyroidism, HTN, PUD, Depression/Anxiety, FERNANDEZ who [facility] with altered mental status secondary to hepatic encephalopathy. Today: - Pending home health with living facility - Continue current treatment Acute: #Hepatic Encephalopathy #MASH Cirrhosis #Portal Hypertension -Patient was noted to be altered and not acting like herself on 09/30/24. - Infectious, intracranial, and toxic workup was negative in the ED. Patient had missed many doses of Lactulose at facility and was highly likely to be altered due to HE. Patient back to baseline. Plan: - Continue Lactulose 20g TID, titrating to 3-4 bowel movements daily - Continue Rifaximin 550mg BID - Continue PPI - Continue Coreg - Continue alcides #Left Upper Extremity nodule - Patient reports this appeared first a bruise after receiving a shot (unclear what shot, possibly pLOV). Tender to touch - Ultrasound shows a 9mm cystic/fluid filled mass with well defined margins and hyperechoic rim, not completely compressible with probe PLAN: - will likely resolve spontaneously - outpatient follow up with general surgery #Mouth Pain - Patient reports mouth pain in lower gums under her dentures - Recommend dentistry follow up - continue mouthwash Resolved: #Acute Kidney Injury, resolved - Likely due to poor intake, patient has high specific gravity on UA - Baseline creatinine ~ 0.8-1.0. Current Creatinine back at baseline, improved from 1.28. - Patient doing well with PO intake Plan: - Continue to encourage PO intake. - Monitor I&Os #Hypoglycemia, resolved - FSBG 65 on arrival, likely due to poor intake in setting of altered mental status and dehydration Plan: - Monitor - Encourage PO intake #Sinusitis, resolved - Noted on CT imaging - Mildly symptomatic Plan - Supportive care #Neck Tenderness - Low suspicion to be related to thyroid. Low suspicion for tooth or neck abscess based on exam. - Neck US with benign small reactive lymph node Chronic Conditions #Meningioma - stable on CTH, followed by [facility] in past #HTN: continue Carvedilol 3.125mg BID; hold amlodipine #Hypothyroidism - continue Levothyroxine 88mcg #VENUS - continue iron PO #PUD: Continue PPI daily #HFpEF - continue Coreg and Spironolactone #Depression/Anxiety/Possible Conversion Disorder/Bipolar - continue Oxcarbazepine 150 mg BID, Duloxetine 60 mg daily, Amitriptyline 50 mg nightly #Headaches/Migraines - chronic #Vitamin D Deficiency - Vitamin D 1-25 normal #FERNANDEZ - not on cpap #Morbid Obesity - Weight 112 kg, complicates all aspects of care Fluids: PO DVT Ppx: PLOV Diet: Regular diet Code status: Full Code Discharge Planning: Anticipated discharge to: Rehab facility (specify), precert in motion Anticipated discharge needs: None Family Contact: Judi Owens Follow-up: PCP Gastroenterology No future appointments. Gucci Martines, MS4 Cosigned by Momo Akhtar MD at 10/19/2024 6:17 PM EDT Associated attestation - Momo Akhtar MD - 10/19/2024 6:17 PM EDT I saw and evaluated the patient with the medical/[employer]/PA student. I discussed the case with the medical/[employer] BARN [employer]ORER/PA student and agree with the findings and plan as documented. I personally performed the Examand Medical Decision Making. Discussed results of US that show cystic lesion. Will refer to surgery clinic as outpatient in casearm nodule persists. Plan for discharge tomorrow. * Care Plan - Josey Bar RN - 10/19/2024 1:05 PM EDT Problem: Adult Inpatient Plan of Care Goal: Plan of Care Review Flowsheets (Taken 10/19/2024 1251) Progress: improving Plan of Care Reviewed With: patient Goal: Patient-Specific Goal (Individualized) Flowsheets (Taken 10/19/2024 0900) Patient/Family-Specific Goals (Include Timeframe): provide education on her level of education r/t DC plans throughout shift Individualized Care Needs: educate on DC plan Anxieties, Fears or Concerns: Denies Goal: Absence of Hospital-Acquired Illness or Injury Intervention: Identify and Manage Fall Risk Flowsheets (Taken 10/19/2024 1251) Safety Promotion/Fall Prevention: activity supervised assistive device/personal items within reach clutter-free environment maintained fall prevention program maintained lighting adjusted mobility aid in reach nonskid shoes/slippers when out of bed room organization consistent safety round/check completed toileting scheduled Intervention: Prevent Skin Injury Flowsheets Taken 10/19/2024 1100 by Josey Bar RN Body Position: sitting up in bed Taken 10/19/2024 0323 by Shakir Guidry RN Skin Protection: incontinence pads utilized pulse oximeter probe site changed transparent dressing maintained protective footwear used Intervention: Prevent and Manage VTE (Venous Thromboembolism) Risk Flowsheets (Taken 10/19/2024 1100) VTE Prevention/Management: medication Intervention: Prevent Infection Flowsheets (Taken 10/19/2024 1251) Infection Prevention: environmental surveillance performed equipment surfaces disinfected hand hygiene promoted rest/sleep promoted single patient room provided Goal: Optimal Comfort and Wellbeing Intervention: Monitor Pain and Promote Comfort Flowsheets (Taken 10/19/2024 1251) Pain Management Interventions: medication (see MAR) care clustered Intervention: Provide Person-Centered Care Flowsheets (Taken 10/19/2024 1251) Trust Relationship/Rapport: care explained choices provided emotional support provided empathic listening provided questions answered questions encouraged reassurance provided thoughts/feelings acknowledged Goal: Readiness for Transition of Care Intervention: Mutually Develop Transition Plan Flowsheets Taken 10/19/2024 1251 by Josey Bar RN Current Outpatient/Agency/Support Group: adult day care assisted living facility Outpatient/Agency/Support Group Needs: assisted living facility adult day care senior living Current Discharge Risk: homeless lack of support system/caregiver Concerns to be Addressed: discharge planning Readmission Within the Last 30 Days: no previous admission in last 30 days Patient/Family Anticipated Services at Transition: counseling case managerstation manager agency Taken 10/01/2024 1403 by Vincent Gonzalez Equipment Currently Used at Home: none Problem: Fall Injury Risk Goal: Absence of Fall and Fall-Related Injury Intervention: Identify and Manage Contributors Flowsheets (Taken 10/19/2024 1251) Medication Review/Management: medications reviewed Self-Care Promotion: independence encouraged BADL personal objects within reach BADL personal routines maintained Intervention: Promote Injury-Free Environment Flowsheets (Taken 10/19/2024 1251) Safety Promotion/Fall Prevention: activity supervised assistive device/personal items within reach clutter-free environment maintained fall prevention program maintained lighting adjusted mobility aid in reach nonskid shoes/slippers when out of bed room organization consistent safety round/check completed toileting scheduled Problem: Pain Acute Goal: Optimal Pain Control and Function Intervention: Optimize Psychosocial Wellbeing Flowsheets (Taken 10/19/2024 1251) Supportive Measures: active listening utilized self-care encouraged Diversional Activities: movies Intervention: Develop Pain Management Plan Flowsheets (Taken 10/19/2024 1251) Pain Management Interventions: medication (see MAR) care clustered Intervention: Prevent or Manage Pain Flowsheets (Taken 10/19/2024 1251) Sensory Stimulation Regulation: care clustered lighting decreased quiet environment promoted television on Bowel Elimination Promotion: adequate fluid intake promoted ambulation promoted Sleep/Rest Enhancement: awakenings minimized consistent schedule promoted regular sleep/rest pattern promoted relaxation techniques promoted Medication Review/Management: medications reviewed Problem: Liver Failure Goal: Optimal Coping with Liver Failure Intervention: Support and Optimize Psychosocial Response Flowsheets (Taken 10/19/2024 1251) Supportive Measures: active listening utilized self-care encouraged Diversional Activities: movies Family/Support System Care: self-care encouraged support provided involvement promoted Goal: Absence of Bleeding Intervention: Monitor and Manage Bleeding Flowsheets (Taken 10/19/2024 1251) Bleeding Precautions: foot protection facilitated Goal: Fluid and Electrolyte Balance Intervention: Monitor and Manage Fluid and Electrolyte Balance Flowsheets (Taken 10/19/2024 1251) Fluid/Electrolyte Management: fluids provided Goal: Minimize and Manage Gastrointestinal Symptoms Intervention: Monitor and Support Gastrointestinal Function Flowsheets (Taken 10/19/2024 1251) Perineal Care: absorbent pad Fluid/Electrolyte Management: fluids provided Nausea/Vomiting Interventions: stimuli minimized Isolation Precautions: precautions maintained Oral Care: mouth wash rinse oral rinse provided Goal: Blood Glucose Level Within Target Range Outcome: Met Goal: Absence of Infection Signs and Symptoms Intervention: Prevent or Manage Infection Flowsheets (Taken 10/19/2024 1251) Infection Management: aseptic technique maintained Isolation Precautions: precautions maintained Goal: Optimize Neurologic Function Intervention: Monitor and Optimize Neurologic Status Flowsheets Taken 10/19/2024 1251 by Josey Bar RN Hepatic Encephalopathy Management: airway protection maintained Sensory Stimulation Regulation: care clustered lighting decreased quiet environment promoted television on Head of Bed (HOB) Positioning: HOB elevated Taken 10/17/2024 1735 by Jayant Albarado, ARCADIO Seizure Precautions: clutter-free environment maintained activity supervised Goal: Improved Oral Intake Intervention: Promote and Optimize Nutrition Intake Flowsheets (Taken 10/19/2024 1251) Oral Nutrition Promotion: physical activity promoted Nutrition Interventions: frequent small meals provided Goal: Optimal Pain Control, Comfort and Function Intervention: Prevent or Manage Pain Flowsheets (Taken 10/19/2024 1251) Pain Management Interventions: medication (see MAR) care clustered Sleep/Rest Enhancement: awakenings minimized consistent schedule promoted regular sleep/rest pattern promoted relaxation techniques promoted Goal: Effective Oxygenation and Ventilation Intervention: Promote Airway Secretion Clearance Flowsheets (Taken 10/19/2024 1251) Activity Management: activity adjusted per tolerance ambulated in room ambulated to bathroom Cough And Deep Breathing: done with encouragement Intervention: Optimize Oxygenation and Ventilation Flowsheets (Taken 10/19/2024 1251) Head of Bed (HOB) Positioning: HOB elevated Problem: Self-Care Deficit Goal: Improved Ability to Complete Activities of Daily Living Intervention: Promote Activity and Functional [place] Flowsheets (Taken 10/19/2024 1251) Activity Assistance Provided: assistance, stand-by Adaptive Equipment Use: use encouraged Self-Care Promotion: independence encouraged BADL personal objects within reach BADL personal routines maintained Problem: IADL (Instrumental Activities of Daily Living) Impairment Goal: Optimal Safe IADL Peformance Intervention: Optimize IADL (Instrumental Activity of Daily Living) Skills Flowsheets (Taken 10/19/2024 1251) Energy Conservation Techniques: correct body mechanics utilized correct posture facilitated IADL Promotion: activity adapted to wheelchair level * Care Plan - Shakir Guidry RN - 10/19/2024 3:32 AM EDT Problem: Adult Inpatient Plan of Care Goal: Plan of Care Review Outcome: Ongoing, Progressing Flowsheets (Taken 10/17/2024 0241 by Ariadne Tang, RN) Progress: improving Plan of Care Reviewed With: patient Goal: Patient-Specific Goal (Individualized) Outcome: Ongoing, Progressing Flowsheets (Taken 10/18/2024 0730 by Josey Bar RN) Patient/Family-Specific Goals (Include Timeframe): provided education on plan of care for DC throughout shift Individualized Care Needs: educate DC plan Anxieties, Fears or Concerns: concern with DC Goal: Absence of Hospital-Acquired Illness or Injury Outcome: Ongoing, Progressing Intervention: Identify and Manage Fall Risk Flowsheets (Taken 10/18/2024 0730 by Josey Bar, RN) Safety Promotion/Fall Prevention: activity supervised fall prevention program maintained clutter-free environment maintained assistive device/personal items within reach lighting adjusted mobility aid in reach nonskid shoes/slippers when out of bed room organization consistent safety round/check completed toileting scheduled Intervention: Prevent Skin Injury Flowsheets Taken 10/19/2024 0323 by Shakir Guidry RN Skin Protection: incontinence pads utilized pulse oximeter probe site changed transparent dressing maintained protective footwear used Taken 10/18/2024 1700 by Josey Bar RN Body Position: sitting up in bed Intervention: Prevent and Manage VTE (Venous Thromboembolism) Risk Flowsheets (Taken 10/18/2024 0730 by Josey Bar, RN) VTE Prevention/Management: medication Goal: Optimal Comfort and Wellbeing Outcome: Ongoing, Progressing Intervention: Provide Person-Centered Care Flowsheets (Taken 10/17/2024 0241 by Ariadne Tang, RN) Trust Relationship/Rapport: care explained choices provided emotional support provided empathic listening provided questions answered reassurance provided thoughts/feelings acknowledged Goal: Readiness for Transition of Care Outcome: Ongoing, Progressing Intervention: Mutually Develop Transition Plan Flowsheets (Taken 10/01/2024 1403 by Vincent Gonzalez) Equipment Currently Used at Home: none Problem: Fall Injury Risk Goal: Absence of Fall and Fall-Related Injury Outcome: Ongoing, Progressing Intervention: Identify and Manage Contributors Flowsheets (Taken 10/19/2024 032) Medication Review/Management: medications reviewed Self-Care Promotion: independence encouraged BADL personal objects within reach Intervention: Promote Injury-Free Environment Flowsheets (Taken 10/18/2024 0730 by Josey Bar, ARCADIO) Safety Promotion/Fall Prevention: activity supervised fall prevention program maintained clutter-free environment maintained assistive device/personal items within reach lighting adjusted mobility aid in reach nonskid shoes/slippers when out of bed room organization consistent safety round/check completed toileting scheduled Problem: Pain Acute Goal: Optimal Pain Control and Function Outcome: Ongoing, Progressing Intervention: Optimize Psychosocial Wellbeing Flowsheets (Taken 10/19/2024 032) Supportive Measures: positive reinforcement provided decision-making supported active listening utilized Diversional Activities: television reading Intervention: Develop Pain Management Plan Flowsheets (Taken 10/18/20242039) Pain Management Interventions: medication (see MAR) position adjusted Intervention: Prevent or Manage Pain Flowsheets Taken 10/19/2024322 by Shakir Guidry, AR[place]IO Bowel Elimination Promotion: adequate fluid intake promoted Sleep/Rest Enhancement: awakenings minimized noise level reduced regular sleep/rest pattern promoted Medication Review/Management: medications reviewed Taken 10/17/20241734 by Jayant Albarado, RN Sensory Stimulation Regulation: quiet environment promoted television on Problem: Liver Failure Goal: Optimal Coping with Liver Failure Outcome: Ongoing, Progressing Intervention: Support and Optimize Psychosocial Response Flowsheets (Taken 10/19/2024 0323) Supportive Measures: positive reinforcement provided decision-making supported active listening utilized Diversional Activities: television reading Family/Support System Care: self-care encouraged support provided Goal: Absence of Bleeding Outcome: Ongoing, Progressing Intervention: Monitor and Manage Bleeding Flowsheets (Taken 10/19/2024322) Bleeding Precautions: foot protection facilitated monitored for signs of bleeding Goal: Fluid and Electrolyte Balance Outcome: Ongoing, Progressing Intervention: Monitor and Manage Fluid and Electrolyte Balance Flowsheets (Taken 10/19/2024322) Fluid/Electrolyte Management: fluids provided Goal: Minimize and Manage Gastrointestinal Symptoms Outcome: Ongoing, Progressing Intervention: Monitor and Support Gastrointestinal Function Flowsheets (Taken 10/19/2024322) Perineal Care: absorbent pad Fluid/Electrolyte Management: fluids provided Nausea/Vomiting Interventions: sips of clear liquids given slow deep breathing encouraged nausea triggers minimized Oral Care: oral rinse provided education provided teeth brushed Goal: Blood Glucose Level Within Target Range Outcome: Ongoing, Progressing Goal: Hemodynamic Stability Outcome: Ongoing, Progressing Goal: Absence of Infection Signs and Symptoms Outcome: Ongoing, Progressing Intervention: Prevent or Manage Infection Flowsheets Taken 10/19/2024322 by Shakir Guidry RN Fever Reduction/Comfort Measures: lightweight clothing Taken 10/17/2024 1940 by Jhon Perez, [place] Isolation Precautions: precautions maintained Goal: Optimize Neurologic Function Outcome: Ongoing, Progressing Intervention: Monitor and Optimize Neurologic Status Flowsheets Taken 10/18/2024 0600 by Jhon Perez, RN Head of Bed (HOB) Positioning: HOB elevated Taken 10/17/2024 1735 by Jayant Albarado RN Sensory Stimulation Regulation: quiet environment promoted television on Seizure Precautions: clutter-free environment maintained activity supervised Goal: Improved Oral Intake Outcome: Ongoing, Progressing Intervention: Promote and Optimize Nutrition Intake Flowsheets (Taken 10/19/2024322) Oral Nutrition Promotion: physical activity promoted calorie-dense foods provided rest periods promoted Nutrition Interventions: food preferences provided frequent small meals provided Goal: Optimal Pain Control, Comfort and Function Outcome: Ongoing, Progressing Intervention: Prevent or Manage Pain Flowsheets Taken 10/19/2024322 Sleep/Rest Enhancement: awakenings minimized noise level reduced regular sleep/rest pattern promoted Taken 10/18/20242039 Pain Management Interventions: medication (see MAR) position adjusted Goal: Effective Oxygenation and Ventilation Outcome: Ongoing, Progressing Intervention: Promote Airway Secretion Clearance Flowsheets Taken 10/19/2024 020 by Parul Bustamante Activity Management: activity adjusted per tolerance Taken 10/18/2024 204 by Shakir Guidry RN Cough And Deep Breathing: done independently per patient Intervention: Optimize Oxygenation and Ventilation Flowsheets Taken 10/19/2024 0323 by Shakir Guidry RN Airway/Ventilation Management: pulmonary hygiene promoted Taken 10/18/2024 0600 by Jhon Perez RN Head of Bed (HOB) Positioning: HOB elevated Problem: Self-Care Deficit Goal: Improved Ability to Complete Activities of Daily Living Outcome: Ongoing, Progressing Intervention: Promote Activity and Functional Grayson Flowsheets Taken 10/19/2024 032 by Shakir Guidry RN Self-Care Promotion: independence encouraged BADL personal objects within reach Taken 10/19/2024 020 by Parul Bustamante Activity Assistance Provided: assistance, stand-by Taken 10/17/2024 0241 by Ariadne Tang RN Adaptive Equipment Use: use encouraged Problem: IADL (Instrumental Activities of Daily Living) Impairment Goal: Optimal Safe IADL Peformance Outcome: Ongoing, Progressing Intervention: Optimize IADL (Instrumental Activity of Daily Living) Skills Flowsheets (Taken 10/18/2024 1158 by Josey Bar RN) Energy Conservation Techniques: correct posture facilitated regular rest breaks encouraged IADL Promotion: activity adapted to wheelchair level equipment or device utilized * Progress Notes - Momo Akhtar MD - 10/18/2024 2:32 PM EDT Subjective Patient reports continued left upper arm pain with nodule despite multiple days of compresses. Notes that this has been present for a few weeks. Review of Systems Constitutional: Negative for fever. Objective Vitals Temp: [36.5 ??C (97.7 ??F)-36.9 ??C (98.4 ??F)] 36.7 ??C (98 ??F) Heart Rate: [67-79] 68 Resp: [14-18] 16 BP: (105-135)/(51-74) 105/51 Physical Exam Constitutional: General: She is in acute distress. Appearance: She is not ill-appearing, toxic-appearing or diaphoretic. Pulmonary: Effort: Pulmonary effort is normal. Comments: Nasal canula in place Musculoskeletal: Comments: LUE subcutaneous firm nodule. Not fixed. Psychiatric: Mood and Affect: Mood normal. Behavior: Behavior normal. Assessment & Plan HE (hepatic encephalopathy) (CMS/HCC) Acute encephalopathy KYLIE (acute kidney injury) (CMS/HCC) Hypoglycemia Today: - LUE US for nodule - pending placement subacute recs - plan for [facility] - continue lactulose / rifaximin. Patient continues to have appropriate mentation. Acute # Subcutaneous nodule LUE painful nodule for a few weeks present despite several days of compresses. - LUE US ordered 10/18 # Generalized weakness due to prolonged hospitalization Working on subacute rehab per PT/OT recs. Per discussion with case management on 10/14, initial facility did not accept secondary insurance so was cost prohibitive. - Plan to return to [facility] when ready. 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 - Continue Lactulose 20g TID, titrating to 3-4 bowel movements daily - Continue Rifaximin 550mg BID - Continue Coreg - Continue Spironolactone Chronic # Cognitive delay [place] # Meningioma - stable on [facility], followed by [facility] in past # HTN: continue Carvedilol 3.125mg BID; hold amlodipine # Hypothyroidism - continue Levothyroxine 88mcg # VENUS - consider resuming iron PO # PUD: Continue PPI daily # HFpEF - continue Coreg and Spironolactone # Depression/Anxiety/Possible Conversion Disorder/Bipolar - continue Oxcarbazepine 150 mg BID, Duloxetine 60 mg daily, Amitriptyline 50 mg nightly # Headaches/Migraines - chronic # Vitamin D Deficiency - Vitamin D 1-25 normal # FERNANDEZ - not on cpap # Morbid Obesity - Weight 112 kg, complicates all aspects of care Resolved # KYLIE - resolved with improved PO intake. Peaked at 1.28, baseline 0.8-1.0 # Hypoglycemia - 65 on arrival likely due to poor PO intake in setting of encephalopathy # Sinusitis - noted on CT but very mild symptoms and no fevers to suggest bacterial infection. Improved with supportive care # Neck tenderness - Neck US w/ benign small reactive lymph node but no other findings. Diet: regular Prophylaxis: lovenox Code: full Medically Ready for Discharge:Anticipated in 2-4 Days * Progress Notes - Kierra Ruggiero - 10/18/2024 12:04 PM EDT Case Management Adult Progress Note Andrew Oconnor 54 y.o. female CSN: [id number] Admission: 09/30/2024 2:02 PM Primary Problem: HE (hepatic encephalopathy) (CMS/HCC) Anticipated Discharge Date: TBD Has Discharge Plans Changed? No Medicare Second Notice: na Housing Circumstances: Extreme Poverty (100% or less than Federal Poverty Guidelines) Pt resides at [facility] Housing Circumstances Action Taken: Other none Medically Ready for Discharge: Anticipated in 2-4 Days Additional Comments Per MD, Pt not ready for discharge. Planned for Ultrasound to be completed prior to discharge. Casemanagement will continue to follow and assist with discharge plans. Kierra Ruggiero BENCH BORING MACHINE OPERATOR, COMPOSITION ROOFER Oven Operator * Care Plan - Josey Bar RN - 10/18/2024 12:00 PM EDT Problem: Adult Inpatient Plan of Care Goal: Plan of Care Review Outcome: Ongoing, Progressing Goal: Patient-Specific Goal (Individualized) Outcome: Ongoing, Progressing Goal: Absence of Hospital-Acquired Illness or Injury Outcome: Ongoing, Progressing Goal: Optimal Comfort and Wellbeing Outcome: Ongoing, Progressing Goal: Readiness for Transition of Care Outcome: Ongoing, Progressing Problem: Fall Injury Risk Goal: Absence of Fall and Fall-Related Injury Outcome: Ongoing, Progressing Problem: Pain Acute Goal: Optimal Pain Control and Function Outcome: Ongoing, Progressing Problem: Liver Failure Goal: Optimal Coping with Liver Failure Outcome: Ongoing, Progressing Goal: Absence of Bleeding Outcome: Ongoing, Progressing Goal: Fluid and Electrolyte Balance Outcome: Ongoing, Progressing Goal: Minimize and Manage Gastrointestinal Symptoms Outcome: Ongoing, Progressing Goal: Blood Glucose Level Within Target Range Outcome: Ongoing, Progressing Goal: Hemodynamic Stability Outcome: Ongoing, Progressing Goal: Absence of Infection Signs and Symptoms Outcome: Ongoing, Progressing Goal: Optimize Neurologic Function Outcome: Ongoing, Progressing Goal: Improved Oral Intake Outcome: Ongoing, Progressing Goal: Optimal Pain Control, Comfort and Function Outcome: Ongoing, Progressing Goal: Effective Oxygenation and Ventilation Outcome: Ongoing, Progressing Problem: Self-Care Deficit Goal: Improved Ability to Complete Activities of Daily Living Outcome: Ongoing, Progressing Problem: IADL (Instrumental Activities of Daily Living) Impairment Goal: Optimal Safe IADL Peformance Outcome: Ongoing, Progressing Intervention: Optimize IADL (Instrumental Activity of Daily Living) Skills Flowsheets (Taken 10/18/2024 1158) Energy Conservation Techniques: correct posture facilitated regular rest breaks encouraged IADL Promotion: activity adapted to wheelchair level equipment or device utilized * Care Plan - Josey Bar RN - 10/18/2024 11:58 AM EDT Encouraged patient to rest between walks and transferring. Take breaks as needed * Care Plan - Jhon Perez RN - 10/17/2024 11:05 PM EDT Problem: Adult Inpatient Plan of Care Goal: Absence of Hospital-Acquired Illness or Injury Outcome: Ongoing, Progressing Goal: Optimal Comfort and Wellbeing Outcome: Ongoing, Progressing Goal: Readiness for Transition of Care Outcome: Ongoing, Progressing Problem: Fall Injury Risk Goal: Absence of Fall and Fall-Related Injury Outcome: Ongoing, Progressing Problem: Pain Acute Goal: Optimal Pain Control and Function Outcome: Ongoing, Progressing Problem: Liver Failure Goal: Absence of Bleeding Outcome: Ongoing, Progressing Goal: Absence of Infection Signs and Symptoms Outcome: Ongoing, Progressing Goal: Optimize Neurologic Function Outcome: Ongoing, Progressing Goal: Optimal Pain Control, Comfort and Function Outcome: Ongoing, Progressing Goal: Effective Oxygenation and Ventilation Outcome: Ongoing, Progressing Problem: Self-Care Deficit Goal: Improved Ability to Complete Activities of Daily Living Outcome: Ongoing, Progressing * Care Plan - Jayant Albarado RN - 10/17/2024 5:37 PM EDT Problem: Adult Inpatient Plan of Care Goal: Plan of Care Review Outcome: Ongoing, Progressing Goal: Patient-Specific Goal (Individualized) Outcome: Ongoing, Progressing Goal: Absence of Hospital-Acquired Illness or Injury Outcome: Ongoing, Progressing Goal: Optimal Comfort and Wellbeing Outcome: Ongoing, Progressing Goal: Readiness for Transition of Care Outcome: Ongoing, Progressing Problem: Fall Injury Risk Goal: Absence of Fall and Fall-Related Injury Outcome: Ongoing, Progressing Problem: Pain Acute Goal: Optimal Pain Control and Function Outcome: Ongoing, Progressing Problem: Liver Failure Goal: Optimal Coping with Liver Failure Outcome: Ongoing, Progressing Goal: Absence of Bleeding Outcome: Ongoing, Progressing Goal: Fluid and Electrolyte Balance Outcome: Ongoing, Progressing Goal: Minimize and Manage Gastrointestinal Symptoms Outcome: Ongoing, Progressing Goal: Blood Glucose Level Within Target Range Outcome: Ongoing, Progressing Goal: Hemodynamic Stability Outcome: Ongoing, Progressing Goal: Absence of Infection Signs and Symptoms Outcome: Ongoing, Progressing Goal: Optimize Neurologic Function Outcome: Ongoing, Progressing Intervention: Monitor and Optimize Neurologic Status Flowsheets (Taken 10/17/2024 1735) Sensory Stimulation Regulation: quiet environment promoted television on Seizure Precautions: clutter-free environment maintained activity supervised Goal: Improved Oral Intake Outcome: Ongoing, Progressing Goal: Optimal Pain Control, Comfort and Function Outcome: Ongoing, Progressing Goal: Effective Oxygenation and Ventilation Outcome: Ongoing, Progressing Problem: Self-Care Deficit Goal: Improved Ability to Complete Activities of Daily Living Outcome: Ongoing, Progressing * Progress Notes - Gucci Martines - 10/17/2024 4:22 PM EDT Images from the original note were not included. Hospital Medicine Progress Note Subjective Length of stay: 17 days Brief Patient Summary: Andrew Oconnor is a 50 y/o F with Hx of BOWDEN Cirrhosis with history of HE, mild cognitive delay, childhood ALL, meningioma, migraines, hypothyroidism, HTN, PUD, Depression/Anxiety, FERNANDEZ who [facility] with altered mental status secondary to hepatic encephalopathy. Currently on lactulose 20 TID, rifaximin, coreg. Subjective NAEON. Strong PO intake and continues to urinate well. At goal of 3-4 BM daily. Continues to await placement, likely to [place] with home health. No other acute concerns. Review of Systems Review of Systems All other systems reviewed and are negative. Objective Objective Last Recorded Vitals Blood pressure 118/71, pulse 79, temperature 36.5 ??C (97.7 ??F), temperature source Oral, resp. rate 14, height 1.524 m (5'), weight 106 kg (234 lb 9.1 oz), SpO2 95%. Physical Exam Constitutional: Appearance: She is not ill-appearing. HENT: Head: Normocephalic and atraumatic. Mouth/Throat: Mouth: Mucous membranes are moist. Cardiovascular: Rate and Rhythm: Normal rate. Pulses: Normal pulses. Heart sounds: Normal heart sounds. Pulmonary: Effort: Pulmonary effort is normal. No respiratory distress. Breath sounds: Normal breath sounds. Abdominal: General: Abdomen is flat. Palpations: Abdomen is soft. Tenderness: There is no abdominal tenderness. Musculoskeletal: Right lower leg: Edema present. Left lower leg: Edema present. Skin: General: Skin is warm. Capillary Refill: Capillary refill takes less than 2 seconds. Neurological: Mental Status: She is alert and oriented to person, place, and time. Mental status is at baseline. Assessment/Plan Assessment & Plan Principal Problem: HE (hepatic encephalopathy) (CMS/HCC) Active Problems: Acute encephalopathy KYLIE (acute kidney injury) (CMS/HCC) Hypoglycemia Andrew Oconnor is a 50 y/o F with Hx of BOWDEN Cirrhosis with history of HE, mild cognitive delay, childhood ALL, meningioma, migraines, hypothyroidism, HTN, PUD, Depression/Anxiety, FERNANDEZ who [facility] with altered mental status secondary to hepatic encephalopathy. Today: - Pending home health with living facility - Continue current treatment Acute: #Hepatic Encephalopathy #MASH Cirrhosis #Portal Hypertension -Patient was noted to be altered and not acting like herself on 09/30/24. - Infectious, intracranial, and toxic workup was negative in the ED. Patient had missed many doses of Lactulose at facility and was highly likely to be altered due to HE. Patient back to baseline. Plan: - Continue Lactulose 20g TID, titrating to 3-4 bowel movements daily - Continue Rifaximin 550mg BID - Continue PPI - Continue Coreg - Continue alcides Resolved: #Acute Kidney Injury, resolved - Likely due to poor intake, patient has high specific gravity on UA - Baseline creatinine ~ 0.8-1.0. Current Creatinine back at baseline, improved from 1.28. - Patient doing well with PO intake Plan: - Continue to encourage PO intake. - Monitor I&Os #Hypoglycemia, resolved - FSBG 65 on arrival, likely due to poor intake in setting of altered mental status and dehydration Plan: - Monitor - Encourage PO intake #Sinusitis, resolved - Noted on CT imaging - Mildly symptomatic Plan - Supportive care #Neck Tenderness - Low suspicion to be related to thyroid. Low suspicion for tooth or neck abscess based on exam. - Neck US with benign small reactive lymph node Chronic Conditions #Meningioma - stable on [facility], followed by [facility] in past #HTN: continue Carvedilol 3.125mg BID; hold amlodipine #Hypothyroidism - continue Levothyroxine 88mcg #VENUS - consider resuming iron PO #PUD: Continue PPI daily #HFpEF - continue Coreg and Spironolactone #Depression/Anxiety/Possible Conversion Disorder/Bipolar - continue Oxcarbazepine 150 mg BID, Duloxetine 60 mg daily, Amitriptyline 50 mg nightly #Headaches/Migraines - chronic #Vitamin D Deficiency - Vitamin D 1-25 normal #FERNANDEZ - not on cpap #Morbid Obesity - Weight 112 kg, complicates all aspects of care Fluids: PO DVT Ppx: PLOV Diet: Regular diet Code status: Full Code Discharge Planning: Anticipated discharge to: Rehab facility (specify), precert in motion Anticipated discharge needs: None Family Contact: Judi Owens Follow-up: PCP Gastroenterology No future appointments. Gucci Martines, MS4 Cosigned by Momo Akhtar MD at 10/17/2024 6:34 PM EDT Associated attestation - Momo Akhtar MD - 10/17/2024 6:34 PM EDT I saw and evaluated the patient with the medical/CAR BARN LABORER/PA student. I discussed the case with the medical/CAR BARN LABORER/PA student and agree with the findings and plan as documented. I personally performed the Examand Medical Decision Making. Continuing to work on dispo. Possibly returning to facility on Sunday. * Progress Notes - Shanda Andres - 10/17/2024 2:45 PM EDT Occupational Therapy Re-Assessment Patient Name: Andrew Oconnor Today's Date: 10/17/2024 OT Discharge Recommendations: Home, Home health OT, Home health PT Equipment Recommended: Rollator History Andrew Oconnor is 54 y.o. female admitted 09/30/2024 for work-up of HE (hepatic encephalopathy) (CMS/HCC). Hospital Course 1. Acute encephalopathy 2. HE (hepatic encephalopathy) (CMS/HCC) 3. Thrombocytopenia (CMS/HCC) 4. Dysarthria 5. Chest pain, unspecified type 6. Hepatic encephalopathy (CMS/HCC) 7. Altered mental status, unspecified altered mental status type Past Medical History Patient has a past medical history of ALL (acute lymphoblastic leukemia of infant) (CMS/HCC) and Stroke (CMS/HCC). Past Surgical History Patient has a past surgical history that includes Cholecystectomy (N/A); Appendectomy (N/A); and section, low transverse (N/A). Precautions Medical Precautions: Fall precautions Subjective Pt and RN agreeable to OT re-assessment. Pt is pleasant and cooperative throughout. I feel like I'm doing a lot better. Participants in Care Family/Caregiver Present: No Network Desktop Support Specialist: Not Applicable Presentation Oxygen Therapy: None (Room air) Lines and Tubes: Intravenous access Pre-Session: Supine, Head of bed elevated, Bed alarm Pre-Session Comments: RN consented to treatment Post-Session: Sitting in chair, Chair alarm, Lines intact, RN notified, Call light in reach Post-Session Comments: Patient positioned for comfort and left with all needs within reach, LE's elevated Home Living/Set-Up Home Type: intermediate ([facility]) Home Adaptive Equipment: Rolling walker (pt reports RW is non-functional and is interested in obtaining a rollator) Home Layout: One level Bathroom: Tub/Shower: (Pt is unable to accurately elaborate on bathroom set up, but reports she completes shower transfer independently) Prior Level of Function Receives Help From: Caregiver (staff at [facility]) Level of Mobility: Ambulatory- household only Mobility Grayson: Independent gait without device History of Falls: Yes (reports fall onto concrete approximately one month ago, navigating down stairs) ADL Performance: Needs assistance Bathing: Independent Upper Body Dressing: Independent Lower Body Dressing: Independent Grooming: Independent Toileting: Independent Eating: Independent Home Management Skills: Needs assist Patient/Family Goals Statement Pt hopes to one day get a place of her own Objective Pain Pt reports 9/10 pain in R heel during mobility tasks, states, I have a bone spur. They can't do anything about it. Provided with rest and pillow support at conclusion of session. Delirium Screening Moore Agitation Sedation Scale (RASS): Alert and calm Confusion Assessment Method-ICU (CAM-ICU/PCAM-ICU) Feature 3: Altered Level of Consciousness: Negative Cognition Overall Cognitive Status: Within Functional Limits Arousal/Alertness: Appropriate responses to stimuli Mood/Behavior: Alert Orientation Level: Oriented X4 Orientation Level Comments: Pt did require extra time and min VCs to recall current year. Pt reported September,. Cues to recall 2024. Single Step Commands: Consistently Multi-Step Commands: Consistently, With repetition Method of Communication: Verbal Cognition Interventions: Pt appears to be back to baseline cognition, demonstrates some difficulty with higher level executive tasks as pt with baseline mild cognitive delay. Pt will likely require assistance with medication management and bill paying for accuracy but otherwise cognition is appropriate for ADLs and simple home management tasks. Vision - Basic Assessment Tracking: Intact Right Upper Extremity Examination RUE ROM Assessment RUE Assessment: Within Functional Limits Manual Muscle Testing - RUE: Within functional limits Sensation Light Touch: Right Upper Extremity: Intact Left Upper Extremity Examination LUE ROM Assessment LUE Assessment: Within Functional Limits Manual Muscle Testing - LUE: Within functional limits Sensation Light Touch: Left Upper Extremity: Intact Right Lower Extremity Examination RLE ROM Assessment RLE Assessment: Within Functional Limits Manual Muscle Testing - RLE: Within functional limits Sensation Light Touch: Right Lower Extremity: Intact Left Lower Extremity Examination LLE Assessment: Within Functional Limits Manual Muscle Testing: Within functional limits Sensation Light Touch: Left Lower Extremity: Intact Bed Mobility Bed Mobility Exam: Rolling/Turning Level of Grayson: Independent Bed Mobility Exam: Scooting/Bridging Level of Grayson: Independent (scooting hips forward to edge of bed) Physical/Nonphysical Assist: Supervision Assistive Device: Bed rails Bed Mobility Exam: Supine to Sit Level of Grayson: Modified Grayson Physical/Nonphysical Assist: HOB elevated Assistive Device: Bed rails Transfers Transfer Exam: Sit to stand Level of Grayson: Stand-by assist Physical/Nonphysical Assist: Supervision Assistive Device: Walker, rolling Transfer Exam: Stand to Sit Level of Grayson: Stand-by assist Physical/Nonphysical Assist: Supervision Assistive Device: Walker, rolling Toilet Transfer Level of Grayson: Stand-by assist Physical/Nonphysical Assist: Supervision Type of Transfer: Ambulation, To toilet Assistive Device: Walker, rolling Functional Mobility Device: Rolling walker Apparatus: None Assistance: Standby assist, Minimal verbal cues Distance : 320 ft Ambulation Comments: Pt completed functional mobility tasks walking 320 ft in hallway with RW and SBA. Min VC's initially to stay within center of walker during activity, pt with good carryover following cues. No loss of balance or safety concerns noted. Balance Postural Appearance Posture: Forward head, Rounded shoulders Static Sitting Balance Static Sitting-Balance Support: No upper extremity support, Feet supported Static Sitting-Level of Assistance: Independent Dynamic Sitting Balance Dynamic Sitting-Balance Support: No upper extremity support, Feet supported Level of Assistance: Supervision Static Standing Balance Static Standing-Balance Support: No upper extremity supported Static Standing-Level of Assistance: Standby assist Dynamic Standing Balance Dynamic Standing-Balance Support: Right upper extremity support, Left upper extremity support Dynamic Standing Level of Assistance: Standby assist Self-Care Interventions Self Care/Home Management (ADLs) Time Entry: 30 Self-Care Interventions: OT provided extra time and min VC's for safe walker use in bathroom while pt completing ADL tasks to increase overall safety. Pt much improved with all aspects of self-care routine this date. Feeding Feeding Level of Assistance: Independent Feeding Where Assessed: Chair Level Feeding Interventions: To perform self-feeding tasks, pt is on regular diet Grooming Grooming Level of Assistance: Supervision Grooming Where Assessed: Standing sinkside Grooming Interventions: To brush hair, complete hand hygiene in stance at RW level Bathing UE Bathing Level of Assistance: Setup LE Bathing Level of Assistance: Setup Bathing: Where Assessed: Shower Bathing Interventions: Pt completed shower yesterday with staff accountant, set up/clean up assist only forall bathing tasks. Pt able to bathe 10/10 body parts. UE Dressing UE Dressing Level of Assistance: Setup UE Dressing Where Assessed: Chair level UE Dressing Interventions: Anticipated, donning pullover shirt Lower Extremity Dressing Sock Level of Assistance: Setup, Close supervision LE Dressing Where Assessed: Edge of bed LE Dressing Interventions: Pt able to don bilateral non-skid socks at EOB via figure 4 technique with set up / supervision Toileting Toileting Level of Assistance: SBA Where Assessed: Toilet Toileting Interventions: 3/3 tasks completed by pt at walker level Standardized Assessments Mei Index Feeding: Independent Bathing: Independent (or in Shower) Grooming: Independent face/hair/teeth/shaving (implements provided) Dressing: Independent (including buttons, zips, laces etc.) Bowels: Continent Bladder: Continent Toilet Use: Independent (on and off, dressing, wiping) Transfers (Bed to Chair and Back): Independent Mobility (on Level Surfaces): Walks with help or one person (verbal or physical) > 50 yards Stairs: Needs help (verbal, physical, carrying aid) Total Score: 90 Assessment Pt is progressing with all aspects of ADL/mobility tasks performance, now completing all ADLs and transfers with set up / SBA at RW level and therefore discharge recommendations changed to home with HH OT/PT services + rollator. Pt reports she has no concerns for home and has necessary assistance at her senior living. Pt will continue to benefit from skilled OT services at this time to address decreased safety and independence with ADLs, functional transfers, and functional mobility. OT Findings: Impaired IADL performance Evaluation/Treatment Tolerance: Patient limited by fatigue, Patient limited by pain Rehab Potential: Good, to achieve stated therapy goals OT Recommendations Discharge Destination: Home, Home health OT, Home health PT Discharge Equipment: Rollator Plan Planned OT Interventions ADL retraining, IADL retraining, Functional mobility, Cognitive retraining OT Frequency 2 - 5 times per week OT Duration 2 weeks OT GOAL DETAILS DATE ASSESSED STATUS PROGRESS OT Goal 1: Pt will verbalize or demonstrate understanding of UE HEP and discharge recommendations. OT Goal 1 Established Date: 10/03/24 OT Goal 1 Time Frame: 2 weeks 10/17/24 Goal ongoing Continuing progress towards goal OT Goal 2: Pt will perform functional transfers (including toilet transfer) with mod I using RW or rollator. OT Goal 2 Established Date: 10/03/24 OT Goal 2 Time Frame: 2 weeks 10/17/24 Goal ongoing Continuing progress towards goal OT Goal 3: Pt will complete all toileting tasks at RW (or rollator) level with mod I using AE PRN. OT Goal 3 Established Date: 10/03/24 OT Goal 3 Time Frame: 2 weeks 10/17/24 Goal ongoing Continuing progress towards goal OT Goal 4: Pt will perform LB dressing tasks with mod I using AE PRN. OT Goal 4 Established Date: 10/03/24 OT Goal 4 Time Frame: 2 weeks 10/17/24 Goal ongoing Continuing progress towards goal Written by Shanda Andres on 10/17/24 at 3:07 PM. * Progress Notes - Vincent Gonzalez - 10/17/2024 12:11 PM EDT . Case Management Adult Progress Note Andrew Oconnor 54 y.o. female CSN: [id number] Admission: 09/30/2024 2:02 PM Primary Problem: HE (hepatic encephalopathy) (CMS/HCC) Anticipated Discharge Date: TBD SW attempted to discuss with Duncan Houser (Admission Coordinator) but have been unable to get ahold of their admission coordinator. SW attempted on 10/15/2024 and 10/17/2024, leaving a voicemail and number with front office supervisor. SW attempted calling State Guardian (Judi) to discuss with Judi about next discharge steps. SW left a voicemail with State Guardian. ADDENDUM: [facility] informed SW needing PT/OT updated notes faxed to [phone]. SW willfax update notes to Duncan Houser. SW will continue to follow-up with pt's MD and care team on their progress and discharge plan. Vincent Gonzalez, [employer] MACHINE OPERATOR, COMPOSITION ROOFER * Care Plan - Jayant Albarado RN - 10/17/2024 7:47 AM EDT Problem: Adult Inpatient Plan of Care Goal: Plan of Care Review Outcome: Ongoing, Progressing Goal: Patient-Specific Goal (Individualized) Outcome: Ongoing, Progressing Goal: Absence of Hospital-Acquired Illness or Injury Outcome: Ongoing, Progressing Goal: Optimal Comfort and Wellbeing Outcome: Ongoing, Progressing Goal: Readiness for Transition of Care Outcome: Ongoing, Progressing Problem: Fall Injury Risk Goal: Absence of Fall and Fall-Related Injury Outcome: Ongoing, Progressing Problem: Pain Acute Goal: Optimal Pain Control and Function Outcome: Ongoing, Progressing Problem: Liver Failure Goal: Optimal Coping with Liver Failure Outcome: Ongoing, Progressing Goal: Absence of Bleeding Outcome: Ongoing, Progressing Goal: Fluid and Electrolyte Balance Outcome: Ongoing, Progressing Goal: Minimize and Manage Gastrointestinal Symptoms Outcome: Ongoing, Progressing Goal: Blood Glucose Level Within Target Range Outcome: Ongoing, Progressing Goal: Hemodynamic Stability Outcome: Ongoing, Progressing Goal: Absence of Infection Signs and Symptoms Outcome: Ongoing, Progressing Goal: Optimize Neurologic Function Outcome: Ongoing, Progressing Goal: Improved Oral Intake Outcome: Ongoing, Progressing Goal: Optimal Pain Control, Comfort and Function Outcome: Ongoing, Progressing Goal: Effective Oxygenation and Ventilation Outcome: Ongoing, Progressing Problem: Self-Care Deficit Goal: Improved Ability to Complete Activities of Daily Living Outcome: Ongoing, Progressing * Care Plan - Ariadne Tang RN - 10/17/2024 2:45 AM EDT Problem: Adult Inpatient Plan of Care Goal: Patient-Specific Goal (Individualized) Outcome: Ongoing, Progressing Flowsheets Taken 10/17/2024 0241 by Ariadne Tang RN Patient/Family-Specific Goals (Include Timeframe): To get rest tonight after having a shower and remain optimistic Taken 10/16/2024 1100 by Jayant Albarado RN Individualized Care Needs: chair Anxieties, Fears or Concerns: none stated Problem: Adult Inpatient Plan of Care Goal: Absence of Hospital-Acquired Illness or Injury Outcome: Ongoing, Progressing Intervention: Identify and Manage Fall Risk Flowsheets (Taken 10/17/2024 024) Safety Promotion/Fall Prevention: activity supervised assistive device/personal items within reach clutter-free environment maintained fall prevention program maintained lighting adjusted mobility aid in reach nonskid shoes/slippers when out of bed room organization consistent safety round/check completed Intervention: Prevent Skin Injury Flowsheets (Taken 10/16/2024 1800 by Jayant Albarado, RN) Body Position: weight shifting Intervention: Prevent and Manage VTE (Venous Thromboembolism) Risk Flowsheets (Taken 10/15/20241999 by Kiana Carrington, RN) VTE Prevention/Management: medication Problem: Adult Inpatient Plan of Care Goal: Absence of Hospital-Acquired Illness or Injury Intervention: Identify and Manage Fall Risk Flowsheets (Taken 10/17/2024240) Safety Promotion/Fall Prevention: activity supervised assistive device/personal items within reach clutter-free environment maintained fall prevention program maintained lighting adjusted mobility aid in reach nonskid shoes/slippers when out of bed room organization consistent safety round/check completed Problem: Adult Inpatient Plan of Care Goal: Absence of Hospital-Acquired Illness or Injury Intervention: Prevent Skin Injury Flowsheets (Taken 10/16/2024 1800 by Jayant Albarado, ARCADIO) Body Position: weight shifting Problem: Adult Inpatient Plan of Care Goal: Absence of Hospital-Acquired Illness or Injury Intervention: Prevent and Manage VTE (Venous Thromboembolism) Risk Flowsheets (Taken 10/15/20241999 by Kiana Carrington, RN) VTE Prevention/Management: medication Problem: Adult Inpatient Plan of Care Goal: Optimal Comfort and Wellbeing Outcome: Ongoing, Progressing Intervention: Provide Person-Centered Care Flowsheets (Taken 10/17/2024240) Trust Relationship/Rapport: care explained choices provided emotional support provided empathic listening provided questions answered reassurance provided thoughts/feelings acknowledged Problem: Adult Inpatient Plan of Care Goal: Optimal Comfort and Wellbeing Intervention: Provide Person-Centered Care Flowsheets (Taken 10/17/2024240) Trust Relationship/Rapport: care explained choices provided emotional support provided empathic listening provided questions answered reassurance provided thoughts/feelings acknowledged Problem: Fall Injury Risk Goal: Absence of Fall and Fall-Related Injury Outcome: Ongoing, Progressing Problem: Adult Inpatient Plan of Care Goal: Readiness for Transition of Care Outcome: Ongoing, Progressing Problem: Self-Care Deficit Goal: Improved Ability to Complete Activities of Daily Living Outcome: Ongoing, Progressing Intervention: Promote Activity and Functional Grayson Flowsheets Taken 10/17/2024 024 by Ariadne Tang RN Adaptive Equipment Use: use encouraged Self-Care Promotion: independence encouraged Taken 10/15/20241999 by Kiana Carrington RN Activity Assistance Provided: assistance, stand-by Problem: Self-Care Deficit Goal: Improved Ability to Complete Activities of Daily Living Intervention: Promote Activity and Functional Grayson Flowsheets Taken 10/17/2024 0241 by Ariadne Tang RN Adaptive Equipment Use: use encouraged Self-Care Promotion: independence encouraged Taken 10/15/20241999 by Kiana Carrington RN Activity Assistance Provided: assistance, stand-by * Progress Notes - Sourav Man IV - 10/16/2024 1:00 PM EDT PHYSICAL THERAPY TREATMENT PATIENT DATA Patient Name Andrew Oconnor Session Date 10/16/2024 Total Treatment Time 30 min PT Discharge Recommendations Subacute rehab Equipment Recommendations Defer to facility PRECAUTIONS Weight Bearing Precautions (if applicable) ROM Restrictions (if applicable) Medical Precautions Medical Precautions: Fall precautions HOME LIVING/SET-UP Lives With Home Type intermediate ([facility]) Home Equipment Rolling walker (pt reports RW is non-functional and is interested in obtaining a rollator) Home Layout One level Bathroom Layout (Pt is unable to accurately elaborate on bathroom set up, but reports she completesshower transfer independently) Additional Comments PRIOR LEVEL OF FUNCTION Receives help from Caregiver (staff at [facility]) Level of Mobility Ambulatory- household only Mobility Grayson Independent gait without device History of Falls Yes (reports fall onto concrete approximately one month ago, navigating down stairs) ADL Performance Bathing: Independent Upper Body Dressing: Independent Lower Body Dressing: Independent Grooming: Independent Toileting: Independent Eating: Independent Home Management Skills: Needs assist PRESENTATION Oxygen Supplemental oxygen Nasal cannula 2 L/min Lines and Tubes N/A Pre-Session Side lying left, Head of bed elevated, Bed alarm, Lines intact RN cleared patient for Physical Therapy treatment session. Post-Session Sitting in chair, Chair alarm, Lines intact, RN notified, Call light in reach Patient positioned for comfort and left with all needs within reach, LE's elevated Patient positioned for comfort and pressure relief at conclusion of therapy session. Bracing (if applicable) SUBJECTIVE PARTICIPANTS IN CARE Patient/Caregiver Comments Pt HAS been: * Ambulating in-room distances * Transferring Bed <> Chair since last PT treatment. Patient agreeable to Physical Therapy treatment session. Visitors Present No Network Desktop Support Specialist (if applicable) Network Desktop Support Specialist: Not Applicable OBJECTIVE PAIN Pt was without c/o pain at the beginning of this session but had increased reports of pain in her lower back on her right side and in her right ankle during ambulation and the RN was notfiied. Prior to RANGE AIDE's departure: * rest was provided * patient was positioned for comfort * pillow support was provided * RN was informed of pt's pain DELIRIUM SCREENING Moore Agitation Sedation Scale (RASS): Alert and calm Confusion Assessment Method-ICU (CAM-ICU/PCAM-ICU) Feature 3: Altered Level of Consciousness: Negative INTERVENTIONS THERAPEUTIC ACTIVITY Treatment Minutes 30 Interventions Pt participated in therapeutic activity focused on bed mobility training, transfer training, ambulation with (RW), improved activity tolerance, education on pursed lip breathing technique with demonstration, patient/family education regarding benefits of mobility, PT plan of care, education on discharge recommendations, and leaving the patient positioning for proper pressure relief.Frequent therapeutic rest breaks were provided to promote completion of tasks and energy conservation. The following sections below give further details on interventions provided by this therapist: BED MOBILITY Level of Grayson Physical/Non- physical Assist Adaptive Equipment Utilized Rolling/ Turning Modified independence (HOB elevated) Bed rails Scooting/ Bridging Minimum assist (75% patient's effort) (to anterior scoot at edge of bed due to feet not able to reach floor (pt heght vs bed height)) Verbal Cues Bed rails Supine to Sit Contact guard Verbal Cues, HOB elevated, Minimal cues Bed rails Sit to Supine (pt left out of bed in chair) Interventions Skilled intervention required for line management, monitoring vital signs, and pt preparation for mobility tasks. Consistent verbal and tactile cues required for initiation, sequencing,and safety with functional tasks. TRANSFERS Level of Grayson Physical/Non- physical Assist Adaptive Equipment Utilized Sit to Stand Contact guard Verbal Cues, Maximal cues, Nonverbal cues (demo/gestures) Walker, rolling Stand to sit Contact guard Verbal Cues, Nonverbal cues (demo/gestures), Maximal cues Walker, rolling Bed to Chair Toilet Transfer Contact guard Ambulation, To toilet Set-up required, Verbal Cues, Moderate cues Walker, rolling Shower Transfer Interventions RANGE AIDE provided verbal cues for safe hand placement during standing/sitting with instructions to press up from the EOB/Arms of the chair prior to reaching for the Rolling Walker to improvesafety with transition. During sitting patient required cueing for reaching back to the Arm of chair or the EOB for assist with controlled decent to prevent falling back and again to improve safety with transition. Pt. performed the above sit to stand transfers with the above assist and cues to promote: WB through B LE's for improved balance, B LE strengthening, and core strength. To facilitate increased independence, decreased caregiver assist, prepare for pre-gait activities, for improved functional mobility. AMBULATION Level of Grayson Distance Adaptive Equipment Utilized Ambulation Minimum assistance (progressing to CGA) 2 x 120ft in the hallway with x 1 standing rest break. After return to the room did stop by the rest room with seated break + 15 ft back to the chair in the room. Rolling walker None Comments Pt continues to have need for cueing for walker management and at time will try to leave the walker behind during transitions to the toilet and chair with cues to keep the walker in front and around her for improved balance. Pt was able to walk straight line mobility but during turns will step outside the walker and did have issues with obstacle avoidence when going through door ways (bathroom as well as for room door) allowing the wheels to catch. Pt with some poor safety awareness but does improve with cueing. Gait Analysis: Patient is noted to have: unsteady gait , Narrow Base Of Support, and Pt ambulates with slow jose luis, poor RW spacing/management, forward flexed posture with downward gaze. Verbal cueing and tactile cueing required for upright posture, verbal cueing required to maintain TITO inside RW to enhance stab ility/support, verbal cues for forward gaze to maximize environmental awareness. Intermittent assistance required for RW navigation to improve obstacle negotiation and reduce risk for falls. Gait Training Intervention: Patient required: cued for upright posture, cued for forward gaze, cued for body within the walker,cued for step through gait pattern inside the Rolling Walker, cued for increased stride, cued for PLB (Pursed Lip Breathing) technique to assist with SOA/TAYLOR recovery during ambulation, and cued for obstacle avoidance during ambulation with Assistive device Pt continues to require sequential verbal/tactile cues for redirection/task completion due to decreased safety awareness, decreased Assistive device management, and impaired dynamic balance. Pt responded well to cues for safety, posture, sequencing of steps and management of the above assistive device. Patient demonstrates decreased overall activity tolerance/endurance and decreased strength, evidenced by decreased ambulation distance compared to baseline level of function. RANGE AIDE presence was necessary for: * progressing patient ambulation distances * monitoring patient vital sign stability * decreasing patient's risk of falling while progressing pt's distances BALANCE Postural Appearance Posture: Forward head, Rounded shoulders Level of Grayson Balance Support Activities Static Sit Contact guard Right upper extremity support, Left upper extremity support, Feet unsupported Static sitting balance improved to supervision with bilateral feet support Dynamic Sit Contact guard Right upper extremity support, Left upper extremity support, Feet supported Reaching for objects, Reaching across midline Static Stand Contact guard Right upper extremity support, Left upper extremity support Dynamic Stand Minimum assistance (varied from CG to min A but frequent cueing required throughout) Right upper extremity support, Left upper extremity support during ambulation activities Interventions Skilled intervention required for line management, monitoring vital signs, and pt preparation for mobility tasks. Consistent verbal and tactile cues required for initiation, sequencing, and safety with functional tasks. All therapeutic activity provided specifically prescribed to address patient's impairments, performed to encourage increased IND with functional tasks due to current functional decline, ultimately toencourage a full return to patient's prior level of function. PATIENT / FAMILY EDUCATION Patient was educated regarding the PT POC and recommendations regarding discharge planning, as wellas progressively increased time spent out of bed/up to chair, and continued mobilization / ambulation with nursing staff as tolerated to promote increased activity tolerance and Endurance. RANGE AIDE providing verbal cues/demonstration for pursed-lip breathing technique to promote improved ventilation, decreased respiratory rate and energy conservation with activity. RANGE AIDE stressed to patient the importance of having nursing staff assist with transfer from bed / back to bed for increased safety and to reduce risk of falls while in the hospital. Patient stated understanding of information provided, denied having further questions or concerns, and stated agreement with current plan of care and recommendations. ASSESSMENT Patient was cooperative and tolerated this therapy session without adverse reaction. Patient continues to require assist of 1 person to complete bed mobility/transfers. The patient continues to required increased cues and assist for positioning to increase efficiency of transfers and to maintain balance during transitional movements. The patient tolerated sitting to the EOB, standing transfers toRW for improved time in stance, ambulation with use of RW for ~ 120ft and ultimately transferred tothe recliner chair during this PT treatment session. The patient fatigued quickly with extra time for rest breaks. Pt has poor safety awareness with use of the RW and proximity to objects and door frames needing frequent cueing. Pt also leaves the safety of the walker at time, trying to leave it behind and has increased risk of falls. Cuing given to keep walker with her for increased balance and stability. This patient has the following impairments: impaired activity tolerance, gross functionalweakness, impaired posture, impaired transfer sequencing and pain, which is limiting the patient from performing independent functional mobility. Patient continues to be a high fall risk. Will progress mobility as appropriate. Patient would continue to benefit from skilled PT services to decrease fall risk and promote independence with functional mobility, in order to maximize potential level of function. SUBACUTE: Pt unsafe to return home at this time given current level of function and increased fall risk, recommend Subacute Rehab placement upon hospital discharge to encourage increased IND with all transfersand balance to encourage increased IND with each and improve overall functional mobility. PT RECOMMENDATIONS Discharge Destination Subacute rehab Discharge Equipment Defer to facility PLAN Pt will continue to benefit from skilled PT for addressing patient's impairments and reducing patient's participation restrictions, activity limitations, decrease their risk of falls, decrease their risk of hospital acquired weakness and to maximize their independence with mobility to ultimately improve their overall quality of life. Will progress current POC to encourage increased IND with all transfers, gait, balance and limits in strength. PT GOALS PT GOAL DETAILS Goal Established Date Time Frame Goal Status PT Goal 1: Pt will demonstrate supine<>sit transfers with SBA and using LRAD 10/03/24 2 weeks PT Goal 2: Pt will demonstrate sit<>stand transfers with SBA and using LRAD. 10/03/24 2 weeks PT Goal 3: Pt will ambulate 100' or more with SBA and using LRAD. 10/03/24 2 weeks PT Goal 4: Pt will demonstrate independence with all home instructions and precautions by providingteach back to PT 10/03/24 2 weeks Written by Sourav Man IV on 10/16/24 at 2:15 PM. * Care Plan - Jayant Albarado RN - 10/16/2024 11:04 AM EDT Problem: Adult Inpatient Plan of Care Goal: Plan of Care Review Outcome: Ongoing, Progressing Goal: Patient-Specific Goal (Individualized) Outcome: Ongoing, Progressing Goal: Absence of Hospital-Acquired Illness or Injury Outcome: Ongoing, Progressing Goal: Optimal Comfort and Wellbeing Outcome: Ongoing, Progressing Goal: Readiness for Transition of Care Outcome: Ongoing, Progressing Problem: Fall Injury Risk Goal: Absence of Fall and Fall-Related Injury Outcome: Ongoing, Progressing Problem: Pain Acute Goal: Optimal Pain Control and Function Outcome: Ongoing, Progressing Problem: Liver Failure Goal: Optimal Coping with Liver Failure Outcome: Ongoing, Progressing Goal: Absence of Bleeding Outcome: Ongoing, Progressing Goal: Fluid and Electrolyte Balance Outcome: Ongoing, Progressing Goal: Minimize and Manage Gastrointestinal Symptoms Outcome: Ongoing, Progressing Goal: Blood Glucose Level Within Target Range Outcome: Ongoing, Progressing Goal: Hemodynamic Stability Outcome: Ongoing, Progressing Goal: Absence of Infection Signs and Symptoms Outcome: Ongoing, Progressing Goal: Optimize Neurologic Function Outcome: Ongoing, Progressing Goal: Improved Oral Intake Outcome: Ongoing, Progressing Goal: Optimal Pain Control, Comfort and Function Outcome: Ongoing, Progressing Goal: Effective Oxygenation and Ventilation Outcome: Ongoing, Progressing Problem: Self-Care Deficit Goal: Improved Ability to Complete Activities of Daily Living Outcome: Ongoing, Progressing * Progress Notes - Momo Akhtar MD - 10/16/2024 9:11 AM EDT Subjective Patient resting comfortably Review of Systems Constitutional: Negative for fever. Objective Vitals Temp: [36.4 ??C (97.6 ??F)-37.2 ??C (99 ??F)] 37.2 ??C (99 ??F) Heart Rate: [64-71] 71 Resp: [18-19] 19 BP: (102-124)/(55-70) 124/61 Physical Exam Constitutional: General: She is not in acute distress. Appearance: She is not ill-appearing, toxic-appearing or diaphoretic. Pulmonary: Effort: Pulmonary effort is normal. Skin: General: Skin is warm and dry. Assessment & Plan HE (hepatic encephalopathy) (CMS/HCC) Acute encephalopathy KYLIE (acute kidney injury) (CMS/HCC) Hypoglycemia Andrew Oconnor is a 50 y/o F with Hx of BOWDEN Cirrhosis with history of HE, mild cognitive delay, childhood ALL, meningioma, migraines, hypothyroidism, HTN, PUD, Depression/Anxiety, [place] who presents to ED from [facility] ([place]) with altered mental status secondary to hepatic encephalopathy. Now better and working on dispo to subacute rehab Today: - pending placement subacute recs - will follow up with case management tomorrow 10/17 given holidayschedule today. - continue lactulose / rifaximin. Patient continues to have appropriate mentation. Acute # Generalized weakness due to prolonged hospitalization Working on subacute rehab per PT/OT recs. Per discussion with case management on 10/14, initial facility did not accept secondary insurance so was cost prohibitive. - Referrals sent to other facilities 10/15 # [facility] cirrhosis decompensated by portal hypertension and acute hepatic encephalopathy Encephalopathy now back to baseline. - Continue Lactulose 20g TID, titrating to 3-4 bowel movements daily - Continue Rifaximin 550mg BID - Continue Coreg - Continue Spironolactone Chronic # Cognitive delay - [place] # Meningioma - stable on [facility], followed by [facility] in past # HTN: continue Carvedilol 3.125mg BID; hold amlodipine # Hypothyroidism - continue Levothyroxine 88mcg # VENUS - consider resuming iron PO # PUD: Continue PPI daily # HFpEF - continue Coreg and Spironolactone # Depression/Anxiety/Possible Conversion Disorder/Bipolar - continue Oxcarbazepine 150 mg BID, Duloxetine 60 mg daily, Amitriptyline 50 mg nightly # Headaches/Migraines - chronic # Vitamin D Deficiency - Vitamin D 1-25 normal # FERNANDEZ - not on cpap # Morbid Obesity - Weight 112 kg, complicates all aspects of care Resolved # KYLIE - resolved with improved PO intake. Peaked at 1.28, baseline 0.8-1.0 # Hypoglycemia - 65 on arrival likely due to poor PO intake in setting of encephalopathy # Sinusitis - noted on CT but very mild symptoms and no fevers to suggest bacterial infection. Improved with supportive care # Neck tenderness - Neck US w/ benign small reactive lymph node but no other findings. Diet: regular Prophylaxis: lovenox Code: full Medically Ready for Discharge:Ready Now Medically Ready for Discharge: * Care Plan - Kiana Carrington RN - 10/15/2024 9:57 PM EDT Problem: Adult Inpatient Plan of Care Goal: Plan of Care Review Outcome: Ongoing, Progressing Flowsheets Taken 10/15/20242153 by Kiana Carrington, RN Progress: improving Taken 10/13/2024 0653 by Juancho Fofana RN Plan of Care Reviewed With: patient Problem: Fall Injury Risk Goal: Absence of Fall and Fall-Related Injury Outcome: Ongoing, Progressing Note: Patient will call out for assistance during shift before getting out of bed Problem: Pain Acute Goal: Optimal Pain Control and Function Outcome: Ongoing, Progressing Problem: Liver Failure Goal: Optimal Coping with Liver Failure Outcome: Ongoing, Progressing Note: Patient will voice understanding of medical diagnosis * Progress Notes - Vincent Gonzalez - 10/15/2024 10:05 AM EDT Case Management Adult Progress Note Andrew Oconnor 54 y.o. female CSN: [id number] Admission: 09/30/2024 2:02 PM Primary Problem: HE (hepatic encephalopathy) (CMS/HCC) Anticipated Discharge Date: TBD Plan of care reviewed with pt's care team; and per , pt is medically ready for discharge pending placement. HONG followed up with Erika in admission at [facility]#[phone]. July informed HONG that she has discussed placement with [facility] (Judi), and July reported that patient would have 10% Copayment due to facility not being in network with pt medicaid insurance. [facility] reported that pt would be unable to afford that cost. HONG sent referral to [facility] genoveva Nunez and Judi reported that she forward Referral packet to [facility]. HONG will continue to follow up with both facility. SW will continue to follow-up with pt's MD and care team on their progress and discharge plan. Vincent Gonzalez, BENCH [employer]ING MACHINE OPERATOR, COMPOSITION ROOFER * Consults - Kierra Montejo RD - 10/15/2024 9:36 AM EDT Adult Nutrition Evaluation Note Andrew Oconnor 54 y.o. female CSN: [id number] Room/Bed 129/129A Nutrition evaluation type: follow-up Reason for evaluation: Hospital course: 50 y/o F presented with hepatic encephalopathy, portal hypertension, and KYLIE (now resolved). Pending placement. Past medical/ surgical history: BOWDEN Cirrhosis with history of HE, mild cognitive delay, childhood ALL, meningioma, migraines, conversion disorder (10/2020), hypothyroidism, HTN, PUD, Depression/Anxiety, FERNANDEZ, and Morbid Obesity Surgical History[1] Social history: Additional comments: 10/15: Pt seen laying back in recliner. She endorses a continued good appetite. Initially states she's nauseous but on further investigation with RN, sounds like she was feeling more wheezy/short of breath vs nauseated? No V/D/C reported. RN in room to assist with positioning/help with wheezy feeling. Vitals and Basic Assessment: BP: 123/63 Temp: 36.6 ??C (97.8 ??F) Oxygen Therapy: Supplemental oxygen O2 Delivery Method: Nasal cannula Nathalie Coma Scale Score: 14 Som Scale Score: 20 Most Recent BM Date: 10/14/24 GI Symptoms: Nausea Edema: Generalized Allergies: reviewed, no known food allergies Medications: Current Scheduled Medications[2] Current Continuous Medications[3] Current PRN Medications[4] Meds were reviewed: Yes Labs: Lab Results Component Value Date GLUCOSE 99 10/07/2024 CALCIUM 9.2 10/07/2024 NA 141 10/07/2024 K 3.6 10/07/2024 CO2 25 10/07/2024 CL 108 (H) 10/07/2024 BUN 5 (L) 10/07/2024 CREATININE 0.95 10/07/2024 PHOS 3.2 10/04/2024 MG 2.1 10/04/2024 HGBA1C 4.8 06/27/2021 Lab Results Component Value Date ALT 27 10/07/2024 AST 52 (H) 10/07/2024 ALKPHOS 72 10/07/2024 BILITOT 0.7 10/07/2024 Anthropometrics: Height: 152.4 cm (5') Weight: 106 kg (234 lb 9.1 oz) BMI (Calculated): 45.81 Weight Evaluation: Extreme Obesity (BMI > 40) [place] Body Weight (kg): 45.4 Percent [place] Body Weight: 233 Adjusted Body Weight (kg): 60.6 Wt Readings from Last 3 Encounters: 10/02/24 106 kg (234 lb 9.1 oz) 01/05/22 112 kg (245 lb 13 oz) 12/11/21 111 kg (244 lb 11.4 oz) No recent weight hx available Estimated Needs: Metabolic Cart Study Results: Current Nutrition Intake: Diet Supplements: None Diet Order: Adult Diet Diet Texture: Regular Adult Sodium Restriction: 2,000 mg Na Percent Meals Eaten (%): 75-100% of meals Diet Experience and Nutrition History: Diet Education Provided: Will monitor Pertinent home medications: Albuterol, Vitamin D3, Iron, Lactulose, Synthroid, Melatonin, Protonix,Pyridoxine, Aldactone Hoahaoism needs: Nutrition Focused Physical Exam: Physical exam performed on (date): 10/08/24 Temples (muscles): None Clavicle (muscle): None Shoulder (muscle): None Interosseous (muscle): None Thigh (muscle): None Calf (muscle): None Orbital (fat): None Triceps (fat): None Assessment of Malnutrition: Malnutrition Identified: No Nutrition Problem: Decreased nutrient needs sodium related to cirrhosis as evidenced by potential for fluid retention/overload. Status of Nutrition Diagnosis: Ongoing Nutrition Interventions and Recommendations: - Continue regular, 2 gm sodium diet as tolerated Nutrition Monitoring and Goals: - Pt will tolerate >75% avg of meal intakes (met, continue) - Pt will maintain weight this admission (ongoing) Acuity Level: 1 Kierra Montejo, RD, LD [1] Past Surgical History: Procedure Laterality Date APPENDECTOMY N/A SECTION, LOW TRANSVERSE N/A CHOLECYSTECTOMY N/A [2] amitriptyline, 50 mg, Oral, Nightly carvedilol, 3.125 mg, Oral, BID with meals donepezil, 5 mg, Oral, Nightly DULoxetine, 30 mg, Oral, Daily enoxaparin, 40 mg, Subcutaneous, BID ferrous sulfate, 324 mg, Oral, Every other day fluticasone, 2 spray, Each Nostril, Daily lactulose, 20 g, Oral, TID levothyroxine, 88 mcg, Oral, q AM OXcarbazepine, 150 mg, Oral, BID pantoprazole, 40 mg, Oral, Daily pyridoxine, 50 mg, Oral, Daily rifAXIMin, 550 mg, Oral, BID spironolactone, 50 mg, Oral, Daily thiamine, 100 mg, Oral, Daily [3] [4] PRN medications: acetaminophen, albuterol, benzocaine, glucose OR dextrose OR glucagon (human recombinant), melatonin, ondansetron ODT OR ondansetron OR ondansetron * Care Plan - Jayant Albarado RN - 10/15/2024 7:36 AM EDT Problem: Adult Inpatient Plan of Care Goal: Plan of Care Review Outcome: Ongoing, Progressing Goal: Patient-Specific Goal (Individualized) Outcome: Ongoing, Progressing Goal: Absence of Hospital-Acquired Illness or Injury Outcome: Ongoing, Progressing Goal: Optimal Comfort and Wellbeing Outcome: Ongoing, Progressing Goal: Readiness for Transition of Care Outcome: Ongoing, Progressing Problem: Fall Injury Risk Goal: Absence of Fall and Fall-Related Injury Outcome: Ongoing, Progressing Problem: Pain Acute Goal: Optimal Pain Control and Function Outcome: Ongoing, Progressing Problem: Liver Failure Goal: Optimal Coping with Liver Failure Outcome: Ongoing, Progressing Goal: Absence of Bleeding Outcome: Ongoing, Progressing Goal: Fluid and Electrolyte Balance Outcome: Ongoing, Progressing Goal: Minimize and Manage Gastrointestinal Symptoms Outcome: Ongoing, Progressing Goal: Blood Glucose Level Within Target Range Outcome: Ongoing, Progressing Goal: Hemodynamic Stability Outcome: Ongoing, Progressing Goal: Absence of Infection Signs and Symptoms Outcome: Ongoing, Progressing Goal: Optimize Neurologic Function Outcome: Ongoing, Progressing Goal: Improved Oral Intake Outcome: Ongoing, Progressing Goal: Optimal Pain Control, Comfort and Function Outcome: Ongoing, Progressing Goal: Effective Oxygenation and Ventilation Outcome: Ongoing, Progressing Problem: Self-Care Deficit Goal: Improved Ability to Complete Activities of Daily Living Outcome: Ongoing, Progressing * Progress Notes - Momo Akhtar MD - 10/15/2024 7:29 AM EDT Subjective Patient resting comfortably. Per nursing, no needs at this time. Continuing to work on dispo to subacute rehab. Review of Systems Constitutional: Negative for fever. Objective Vitals Temp: [36.4 ??C (97.5 ??F)-36.7 ??C (98 ??F)] 36.7 ??C (98 ??F) Heart Rate: [63-73] 72 Resp: [20-22] 22 BP: (116-138)/(60-76) 116/60 Physical Exam Constitutional: General: She is not in acute distress. Appearance: Normal appearance. She is obese. She is not toxic-appearing or diaphoretic. Pulmonary: Effort: Pulmonary effort is normal. Assessment & Plan HE (hepatic encephalopathy) (CMS/HCC) Acute encephalopathy KYLIE (acute kidney injury) (CMS/HCC) Hypoglycemia Andrew Oconnor is a 50 y/o F with Hx of BOWDEN Cirrhosis with history of HE, mild cognitive delay, childhood ALL, meningioma, migraines, hypothyroidism, HTN, PUD, Depression/Anxiety, FERNANDEZ, delgado of the [facility] who presents to ED from [facility] ([place]) with altered mental status secondary to hepatic encephalopathy. Now better and working on dispo to subacute rehab Today: - pending placement subacute recs - per discussion with case management on 10/14, initial facility did not accept secondary insurance so was cost prohibitive. Sending referrals to other facilities 10/15 - continue lactulose / rifaximin. Patient continues to have appropriate mentation. Acute # Generalized weakness due to prolonged hospitalization Working on subacute rehab per PT/OT recs. Per discussion with case management on 10/14, initial facility did not accept secondary insurance so was cost prohibitive. - Sending referrals to other facilities 10/15 # MASH cirrhosis decompensated by portal hypertension and acute hepatic encephalopathy Encephalopathy now back to baseline. - Continue Lactulose 20g TID, titrating to 3-4 bowel movements daily - Continue Rifaximin 550mg BID - Continue Coreg - Continue Spironolactone Chronic # Cognitive delay - [place] # Meningioma - stable on CTH, followed by [facility] in past # HTN: continue Carvedilol 3.125mg BID; hold amlodipine # Hypothyroidism - continue Levothyroxine 88mcg # VENUS - consider resuming iron PO # PUD: Continue PPI daily # HFpEF - continue Coreg and Spironolactone # Depression/Anxiety/Possible Conversion Disorder/Bipolar - continue Oxcarbazepine 150 mg BID, Duloxetine 60 mg daily, Amitriptyline 50 mg nightly # Headaches/Migraines - chronic # Vitamin D Deficiency - Vitamin D 1-25 normal # FERNANDEZ - not on cpap # Morbid Obesity - Weight 112 kg, complicates all aspects of care Resolved # KYLIE - resolved with improved PO intake. Peaked at 1.28, baseline 0.8-1.0 # Hypoglycemia - 65 on arrival likely due to poor PO intake in setting of encephalopathy # Sinusitis - noted on CT but very mild symptoms and no fevers to suggest bacterial infection. Improved with supportive care # Neck tenderness - Neck US w/ benign small reactive lymph node but no other findings. Diet: regular Prophylaxis: lovenox Code: full Medically Ready for Discharge:Ready Now Medically Ready for Discharge:Ready Now * Care Plan - Marybel Madrigal RN - 10/14/2024 9:56 PM EDT Problem: Adult Inpatient Plan of Care Goal: Plan of Care Review Outcome: Ongoing, Progressing Goal: Patient-Specific Goal (Individualized) Outcome: Ongoing, Progressing Goal: Absence of Hospital-Acquired Illness or Injury Outcome: Ongoing, Progressing Goal: Optimal Comfort and Wellbeing Outcome: Ongoing, Progressing Goal: Readiness for Transition of Care Outcome: Ongoing, Progressing Problem: Fall Injury Risk Goal: Absence of Fall and Fall-Related Injury Outcome: Ongoing, Progressing Problem: Pain Acute Goal: Optimal Pain Control and Function Outcome: Ongoing, Progressing Problem: Liver Failure Goal: Optimal Coping with Liver Failure Outcome: Ongoing, Progressing Goal: Absence of Bleeding Outcome: Ongoing, Progressing Goal: Fluid and Electrolyte Balance Outcome: Ongoing, Progressing Goal: Minimize and Manage Gastrointestinal Symptoms Outcome: Ongoing, Progressing Goal: Blood Glucose Level Within Target Range Outcome: Ongoing, Progressing Goal: Hemodynamic Stability Outcome: Ongoing, Progressing Goal: Absence of Infection Signs and Symptoms Outcome: Ongoing, Progressing Goal: Optimize Neurologic Function Outcome: Ongoing, Progressing Goal: Improved Oral Intake Outcome: Ongoing, Progressing Goal: Optimal Pain Control, Comfort and Function Outcome: Ongoing, Progressing Goal: Effective Oxygenation and Ventilation Outcome: Ongoing, Progressing Problem: Self-Care Deficit Goal: Improved Ability to Complete Activities of Daily Living Outcome: Ongoing, Progressing * Progress Notes - Jazmyne Allen - 10/14/2024 12:40 PM EDT OCCUPATIONAL THERAPY TREATMENT PATIENT DATA Patient Name Andrew Oconnor Session Date 10/14/2024 OT Discharge Recommendations Subacute rehab Equipment Recommendations Defer to facility, Rollator MOBILITY GUIDELINES Mobility Protocol: General - Mobility Guidelines Extremity Precautions: No Extremity Precautions Other mobility precautions: No other precautions required PRECAUTIONS Medical Precautions Medical Precautions: Fall precautions HOME LIVING/SET-UP Lives With Home Type intermediate ([facility]) Home Equipment Rolling walker (pt reports RW is non-functional and is interested in obtaining a rollator) Home Layout One level Bathroom Layout (Pt is unable to accurately elaborate on bathroom set up, but reports she completesshower transfer independently) Additional Comments PRIOR LEVEL OF FUNCTION Receives help from Caregiver (staff at [facility]) Level of Mobility Ambulatory- household only Mobility Grayson Independent gait without device History of Falls Yes (reports fall onto concrete approximately one month ago, navigating down stairs) ADL Performance Needs assistance Independent Independent Independent Independent Independent Independent Needs assist PRESENTATION Oxygen Supplemental oxygen (Patient removed nasal cannula for mobility) Nasal cannula 2 L/min Telemetry No Lines and Tubes Pt with O2 via nasal cannula Pre-Session Supine, Head of bed elevated, Lines intact, Bed alarm RN and pt agreeable to OT treatment session Post-Session Supine, Head of bed elevated, Lines intact, RN notified, Bed alarm (zone 1, 2, 3), Call light in reach Patient positioned for comfort and left with all needs within reach, LE's elevated Patient positioned for comfort and pressure relief. Bracing (if applicable) SUBJECTIVE PARTICIPANTS IN CARE Patient/Caregiver Comments Pt reporting she hopes to one day progress to her own apartment [place]. Visitors Present No Network Desktop Support Specialist (if applicable) N/A OBJECTIVE PAIN Pain Score (0-10): did not provide numeric rating, described pain as bothersome Location: left upper arm, noted brusing and what felt like a hard knot, notified RN Intervention: ambulation/increased activity, position adjusted, pillow support provided, and notified RN via secure chat Response: comfortable at end of session and RN notified DELIRIUM SCREENING Moore Agitation Sedation Scale (RASS): Alert and calm Confusion Assessment Method-ICU (CAM-ICU/PCAM-ICU) Feature 3: Altered Level of Consciousness: Negative COGNITION SCREENING Overall Cognitive Status Impaired Arousal/Alertness Delayed responses to stimuli Mood/Behavior Alert, Impulsive, Distractible Orientation Oriented to place, Oriented to person baseline cognitive delay; did not ask further orientation questions regarding situation or time, however pt did ask questions indicating she was aware of time of day (sit up for lunch) and situation (asking if she woud be returning to [place] or getting her own apartment) Command Following Multi-Step Commands: Consistently, With increased time Method of Communication Verbal Additional Observations Safety Judgment: Decreased awareness of need for assistance Awareness of Errors: Assistance required to identify errors made Deficit Awareness: Decreased awareness of deficits Attention Span: Attends with cues to redirect OT INTERVENTIONS SELF-CARE Treatment Minutes (if applicable) 26 Comments Pt's fatigue and need for verbal cueing to safely manage RW around familiar obstacles is abarrier to independence. Level of Grayson Adaptive Equipment Utilized Interventions Feeding Setup Chair Level pt able to open and manage ice cream cup with spoon once provided Grooming Sitting sinkside, Standing sinkside Due to fatigue, pt was limited to completing one grooming task in stance (hand washing) then progressed to sitting to complete hair brushing, with only completing partially due to generalized fatigue, requirng OT to complete brushing and styling hair- ptdid direct care by requesting hair style she preferred OT provided verbal cues to initiate transition from sitting to stance as pt with increased forward lean and reliance on UE support at sink. Lower Body Dressing Pants Level of Assistance: Setup, Contact guard (to change underwear seated on commode) Sock Level of Assistance: Maximum assistance Pt was limited by fatigue and environment, requiring increased assistance for LB dressing tasks from edge of bed position vs lower position from standard commode OT provided appropriate level of assist for task completion after pt attempt, pt with decreased ability to identify safety risks with positioning requiring OT intervention for fall risk reduction. Toileting Setup, Contact guard Toilet for perineal hygiene related to toileting, OT provided set upand clean up of items and CG for balance during dynamic sitting Toilet Transfer Contact guard Ambulation, To toilet Verbal Cues, Maximal cues Walker, rolling Verbal, tactile and visual cues for hand placement for sit to stand transfer, however CGA required due to pt not maintaining recommended safe hand position. BED MOBILITY Level of Grayson Physical/Non- physical Assist Adaptive Equipment Utilized Rolling/ Turning Modified independence (HOB elevated) Bed rails Scooting/ Bridging Minimum assist (75% patient's effort) (to anterior scoot at edge of bed due to feet not able to reach floor (pt heght vs bed height)) Verbal Cues Bed rails Supine to Sit Minimum assist (75% patient's effort) (pt demonstrated 3 attempts to successfully transition to upright sitting, after unable to achieve and maintain on 1st two, OT provided min A via hand held assist) Verbal Cues, HOB elevated Bed rails Sit to Supine (pt left out of bed in chair) Verbal Cues Interventions TRANSFERS Level of Grayson Physical/Non- physical Assist Adaptive Equipment Utilized Sit to Stand Contact guard Verbal Cues, Maximal cues, Nonverbal cues (demo/gestures) Walker, rolling Stand to sit Contact guard Verbal Cues, Nonverbal cues (demo/gestures), Maximal cues Walker, rolling Interventions OT provided verbal cues for hand position throughout all position changes BALANCE Postural Appearance Posture: Forward head, Rounded shoulders Level of Grayson Balance Support Interventions Static Sit Contact guard Right upper extremity support, Left upper extremity support, Feet unsupported Static sitting balance improved to supervision with bilateral feet support Dynamic Sit Contact guard Right upper extremity support, Left upper extremity support, Feet supported Dynamic Sitting-Balance: Reaching for objects, Reaching across midline Static Stand Contact guard Right upper extremity support, Left upper extremity support Dynamic Stand Minimum assistance (varied from CG to min A but frequent cueing required throughout) Right upper extremity support, Left upper extremity support OT provided verbal cues for head position, posture, positioning in relation to RW to reduce fall risk and increase balance support. FUNCTIONAL MOBILITY Level of Grayson Distance Adaptive Equipment Utilized Ambulation Minimum assistance 186 ft. Rolling walker Comments Pt required min A for RW management around obstacles secondary to RW bumping into and getting caught on obstacles x 2 ASSESSMENT Andrew demonstrates good motivation towards increasing independence, however is limited by need for frequent interventions for safety cues to reduce fall risk when upright using RW, and during seated tasks due to decreased awareness of environment and need for modification of body position. Andrew tolerated session with fatigue greater than what would be typically expected in setting of pt's age, prior level of function and activity demands, otherwise no adverse reactions were noticed. Andrew has good potential to increase independence with further skilled OT services and opportunities forconsistent engagement in self care tasks. Recommend subacute rehabilitation to address deficits in self care and related functional mobility to maximize return to prior level of function prior. OT RECOMMENDATIONS Discharge Destination Subacute rehab Discharge Equipment Defer to facility, Rollator PLAN Continue to provide opportunities for self care engagement and increasing functional endurance through occupation based activities. OT GOALS OT GOAL DETAILS Goal Established Date Time Frame Goal Status OT Goal 1: Pt will verbalize or demonstrate understanding of UE HEP and discharge recommendations. 10/03/24 2 weeks OT Goal 2: Pt will perform functional transfers (including toilet transfer) with mod I using RW or rollator. 10/03/24 2 weeks OT Goal 3: Pt will complete all toileting tasks at RW (or rollator) level with mod I using AE PRN. 10/03/24 2 weeks OT Goal 4: Pt will perform LB dressing tasks with mod I using AE PRN. 10/03/24 2 weeks Written by Jazmyne Allne on 10/14/24 at 12:41 PM. * Care Plan - Leon Davis RN - 10/14/2024 11:11 AM EDT Problem: Adult Inpatient Plan of Care Goal: Patient-Specific Goal (Individualized) Outcome: Ongoing, Progressing Flowsheets (Taken 10/14/2024 0800) Patient/Family-Specific Goals (Include Timeframe): pt will remain free from harm/injury during shift Individualized Care Needs: safety Anxieties, Fears or Concerns: none stated Problem: Fall Injury Risk Goal: Absence of Fall and Fall-Related Injury Outcome: Ongoing, Progressing Problem: Pain Acute Goal: Optimal Pain Control and Function Outcome: Ongoing, Progressing Problem: Liver Failure Goal: Optimize Neurologic Function Outcome: Ongoing, Progressing Goal: Improved Oral Intake Outcome: Ongoing, Progressing Problem: Self-Care Deficit Goal: Improved Ability to Complete Activities of Daily Living Outcome: Ongoing, Progressing * Progress Notes - Jay Mcdonald - 10/14/2024 9:31 AM EDT Physical Therapy Treatment Patient Name: Andrew Oconnor Today's Date: 10/14/2024 PT Discharge Recommendations: Subacute rehab Equipment Recommended: Defer to facility Subjective Patient reported being tired this morning but wanting to get up. Participants in Care Family/Caregiver Present: No Presentation Oxygen Therapy: Supplemental oxygen (Patient removed nasal cannula for mobility) O2 Delivery Method: Nasal cannula O2 Flow Rate (L/min): 2 L/min Lines and Tubes: Intravenous access Pre-Session: Supine, Head of bed elevated, Lines intact, Bed alarm Post-Session: Supine, Head of bed elevated, Lines intact, RN notified, Bed alarm (zone 1, 2, 3), Call light in reach Post-Session Comments: Patient positioned for comfort and left with all needs within reach Precautions Medical Precautions: Fall precautions Objective Pain Patient reported leg/foot pain but did not rate when asked, positioned for comfort. Delirium Screening Moore Agitation Sedation Scale (RASS): Alert and calm Confusion Assessment Method-ICU (CAM-ICU/PCAM-ICU) Feature 3: Altered Level of Consciousness: Negative Bed Mobility Bed Mobility Exam: Scooting/Bridging Level of Grayson: Contact guard Physical/Nonphysical Assist: Verbal Cues Bed Mobility Exam: Supine to Sit Level of Grayson: Contact guard Physical/Nonphysical Assist: Verbal Cues Bed Mobility Exam: Sit to Supine Level of Grayson: Contact guard Physical/Nonphysical Assist: Verbal Cues Transfers Transfer Exam: Sit to stand Level of Grayson: Contact guard (x 2 reps) Physical/Nonphysical Assist: Verbal Cues Assistive Device: Walker, rolling Transfer Exam: Stand to Sit Level of Grayson: Contact guard Physical/Nonphysical Assist: Verbal Cues Assistive Device: Walker, rolling Toilet Transfer Level of Grayson: Contact guard Physical/Nonphysical Assist: Verbal Cues Type of Transfer: Ambulation, To toilet Assistive Device: Walker, rolling Ambulation Device: Rolling walker Assistance: Contact guard assist Distance : 186 ft. Ambulation Comments: Patient demonstrates decreased jose luis and gait speed and required prolonged seated rest break to complete mobility activities. Therapeutic Activity ( 24 minutes) Patient participated in static and dynamic balance activities with physical therapist to promote further out of bed activities and increase functional independence to reduce caregiver burden. Patientrequired increased time and cues to complete mobility tasks, and for proper use of assistive device. Patient also required cues for pace of activity to prevent exhaustion and use proper energy conservation techniques. Standardized Assessments Standardized Assessments Standardized Assessments: [facility] 6-Clicks Mobility Assessment [facility] 6-Clic[facility] Mobility Assessment Difficulty patient has turning over in bed (including adjusting bedclothes, sheets, and blankets)?:A little Difficulty patient has sitting down on and standing up from a chair with arms (wheelchair, bedside commode, etc.)?: A little Difficulty patient has moving from lying on back to sitting on the side of the bed?: A little How much help does the patient need moving to and from a bed to a chair (including a wheelchair)?: A little How much help does the patient need to walk in hospital room?: A little How much help does the patient need climbing 3-5 steps with a railing?: A lot [facility] 6-Clicks Mobility Assessment Total : 17 Assessment Patient demonstrates improving mobility overall but continues to require increased cues for positioning to increase efficiency of transfers. Patient continues to demonstrate decreased functional mobility and would benefit from continued physical therapy to address needs. PT Recommendations Discharge Destination: Subacute rehab Discharge Equipment: Defer to facility Plan Progress mobility as able. PT Goals PT GOAL DETAILS Goal Established Date Time Frame Goal Status PT Goal 1: Pt will demonstrate supine<>sit transfers with SBA and using LRAD 10/03/24 2 weeks PT Goal 2: Pt will demonstrate sit<>stand transfers with SBA and using LRAD. 10/03/24 2 weeks PT Goal 3: Pt will ambulate 100' or more with SBA and using LRAD. 10/03/24 2 weeks PT Goal 4: Pt will demonstrate independence with all home instructions and precautions by providingteach back to PT 10/03/24 2 weeks Written by Jay Mcdonald on 10/14/24 at 10:34 AM. * Progress Notes - Momo Akhtar MD - 10/14/2024 9:10 AM EDT Subjective Patient sitting up in bed eating breakfast, inquiring about dispo. No distress and answering questions appropriately. Review of Systems Constitutional: Negative for fever. Objective Vitals Temp: [36.3 ??C (97.4 ??F)-37.3 ??C (99.2 ??F)] 36.7 ??C (98 ??F) Heart Rate: [60-78] 76 Resp: [18-22] 20 BP: (105-135)/(47-68) 106/68 Physical Exam Cardiovascular: Rate and Rhythm: Normal rate. Heart sounds: No murmur heard. Pulmonary: Effort: Pulmonary effort is normal. No respiratory distress. Skin: General: Skin is warm and dry. Neurological: Mental Status: She is alert. Assessment & Plan HE (hepatic encephalopathy) (CMS/HCC) Acute encephalopathy KYLIE (acute kidney injury) (CMS/HCC) Hypoglycemia Andrew Oconnor is a 50 y/o F with Hx of BOWDEN Cirrhosis with history of HE, mild cognitive delay, childhood ALL, meningioma, migraines, hypothyroidism, HTN, PUD, Depression/Anxiety, FERNANDEZ, delgado of the [facility] who presents to ED from [facility] ([place]) with altered mental status secondary to hepatic encephalopathy. Now better and working on a safe dispo. Today: - pending placement subacute recs - precert started 10/14 for [facility]. - continue lactulose / rifaximin. Patient continues to have appropriate mentation. 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 - Continue Lactulose 20g TID, titrating to 3-4 bowel movements daily - Continue Rifaximin 550mg BID - Continue Coreg - Continue Spironolactone Chronic #Meningioma - stable on [facility], followed by [facility] in past #HTN: continue Carvedilol 3.125mg BID; hold amlodipine #Hypothyroidism - continue Levothyroxine 88mcg #VENUS - consider resuming iron PO #PUD: Continue PPI daily #HFpEF - continue Coreg and Spironolactone #Depression/Anxiety/Possible Conversion Disorder/Bipolar - continue Oxcarbazepine 150 mg BID, Duloxetine 60 mg daily, Amitriptyline 50 mg nightly #Headaches/Migraines - chronic #Vitamin D Deficiency - Vitamin D 1-25 normal #FERNANDEZ - not on cpap #Morbid Obesity - Weight 112 kg, complicates all aspects of care Resolved # KYLIE - resolved with improved PO intake. Peaked at 1.28, baseline 0.8-1.0 # Hypoglycemia - 65 on arrival likely due to poor PO intake in setting of encephalopathy # Sinusitis - noted on CT but very mild symptoms and no fevers to suggest bacterial infection. Improved with supportive care # Neck tenderness - Neck US w/ benign small reactive lymph node but no other findings. Diet: regular Prophylaxis: lovenox Code: full Medically Ready for Discharge:Ready Now * Care Plan - Marybel Madrigal RN - 10/13/2024 10:19 PM EDT Problem: Adult Inpatient Plan of Care Goal: Plan of Care Review Outcome: Ongoing, Progressing Goal: Patient-Specific Goal (Individualized) Outcome: Ongoing, Progressing Goal: Absence of Hospital-Acquired Illness or Injury Outcome: Ongoing, Progressing Goal: Optimal Comfort and Wellbeing Outcome: Ongoing, Progressing Goal: Readiness for Transition of Care Outcome: Ongoing, Progressing Problem: Fall Injury Risk Goal: Absence of Fall and Fall-Related Injury Outcome: Ongoing, Progressing Problem: Pain Acute Goal: Optimal Pain Control and Function Outcome: Ongoing, Progressing * Progress Notes - Gucci Martines - 10/13/2024 11:43 AM EDT Images from the original note were not included. Hospital Medicine Progress Note Subjective Length of stay: 13 days Brief Patient Summary: Andrew Oconnor is a 50 y/o F with Hx of BOWDEN Cirrhosis with history of HE, mild cognitive delay, childhood ALL, meningioma, migraines, hypothyroidism, HTN, PUD, Depression/Anxiety, FERNANDEZ who [facility] with altered mental status secondary to hepatic encephalopathy. Currently on lactulose 20 TID, rifaximin, coreg. Subjective NAEON. Strong PO intake and continues to urinate well. At goal of 3-4 BM daily. Expresses concern about her belongings at her previous rehab facility. Continues to await placement. No other acute concerns. Review of Systems Review of Systems All other systems reviewed and are negative. Objective Objective Last Recorded Vitals Blood pressure 135/65, pulse 78, temperature 36.4 ??C (97.6 ??F), resp. rate 18, height 1.524 m (5'), weight 106 kg (234 lb 9.1 oz), SpO2 92%. Physical Exam Constitutional: Appearance: She is not ill-appearing. HENT: Head: Normocephalic and atraumatic. Mouth/Throat: Mouth: Mucous membranes are moist. Cardiovascular: Rate and Rhythm: Normal rate. Pulses: Normal pulses. Heart sounds: Normal heart sounds. Pulmonary: Effort: Pulmonary effort is normal. No respiratory distress. Breath sounds: Normal breath sounds. Abdominal: General: Abdomen is flat. Palpations: Abdomen is soft. Tenderness: There is no abdominal tenderness. Musculoskeletal: Right lower leg: Edema present. Left lower leg: Edema present. Skin: General: Skin is warm. Capillary Refill: Capillary refill takes less than 2 seconds. Neurological: Mental Status: She is alert and oriented to person, place, and time. Mental status is at baseline. Assessment/Plan Assessment & Plan Principal Problem: HE (hepatic encephalopathy) (CMS/HCC) Active Problems: Acute encephalopathy KYLIE (acute kidney injury) (CMS/HCC) Hypoglycemia Andrew Oconnor is a 50 y/o F with Hx of BOWDEN Cirrhosis with history of HE, mild cognitive delay, childhood ALL, meningioma, migraines, hypothyroidism, HTN, PUD, Depression/Anxiety, FERNANDEZ who [facility] ([place]) with altered mental status secondary to hepaticencephalopathy. Today: - Subacute recs, pending placement - [facility] initiating precert - Continue current treatment Acute: #Hepatic Encephalopathy #MASH Cirrhosis #Portal Hypertension -Patient was noted to be altered and not acting like herself on 09/30/24. - Infectious, intracranial, and toxic workup was negative in the ED. Patient had missed many doses of Lactulose at facility and was highly likely to be altered due to HE. Patient back to baseline. Plan: - Continue Lactulose 20g TID, titrating to 3-4 bowel movements daily - Continue Rifaximin 550mg BID - Continue PPI - Continue Coreg - Continue alcides #Acute Kidney Injury, resolved - Likely due to poor intake, patient has high specific gravity on UA - Baseline creatinine ~ 0.8-1.0. Current Creatinine back at baseline, improved from 1.28. - Patient doing well with PO intake Plan: - Continue to encourage PO intake. - Monitor I&Os #Hypoglycemia, resolved - FSBG 65 on arrival, likely due to poor intake in setting of altered mental status and dehydration Plan: - Monitor - Encourage PO intake #Sinusitis, resolved - Noted on CT imaging - Mildly symptomatic Plan - Supportive care #Neck Tenderness - Low suspicion to be related to thyroid. Low suspicion for tooth or neck abscess based on exam. - Neck US with benign small reactive lymph node Chronic Conditions #Meningioma - stable on [facility], followed by [facility] in past #HTN: continue Carvedilol 3.125mg BID; hold amlodipine #Hypothyroidism - continue Levothyroxine 88mcg #VENUS - consider resuming iron PO #PUD: Continue PPI daily #HFpEF - continue Coreg and Spironolactone #Depression/Anxiety/Possible Conversion Disorder/Bipolar - continue Oxcarbazepine 150 mg BID, Duloxetine 60 mg daily, Amitriptyline 50 mg nightly #Headaches/Migraines - chronic #Vitamin D Deficiency - Vitamin D 1-25 normal #FERNANDEZ - not on cpap #Morbid Obesity - Weight 112 kg, complicates all aspects of care Fluids: PO DVT Ppx: PLOV Diet: Regular diet Code status: Full Code Discharge Planning: Anticipated discharge to: Rehab facility (specify), precert in motion Anticipated discharge needs: None Family Contact: Judi Owens Follow-up: PCP Gastroenterology No future appointments. Gucci Martines, MS4 Cosigned by Evette Goodrich MD at 10/13/2024 5:51 PM EDT Associated attestation - Evette Goodrich MD - 10/13/2024 5:51 PM EDT I saw and evaluated the patient with the medical/CAR BARN LABORER/PA student. I discussed the case with the medical/CAR BARN LABORER/PA student and agree with the findings and plan as documented. I personally performed the Examand Medical Decision Making. * Care Plan - Leon Davis RN - 10/13/2024 10:37 AM EDT Problem: Adult Inpatient Plan of Care Goal: Patient-Specific Goal (Individualized) Outcome: Ongoing, Progressing Flowsheets (Taken 10/13/2024 0800) Patient/Family-Specific Goals (Include Timeframe): pt will remain free from harm/injury during shift Individualized Care Needs: safety Anxieties, Fears or Concerns: none stated Problem: Fall Injury Risk Goal: Absence of Fall and Fall-Related Injury Outcome: Ongoing, Progressing Problem: Liver Failure Goal: Optimal Coping with Liver Failure Outcome: Ongoing, Progressing Goal: Optimize Neurologic Function Outcome: Ongoing, Progressing Goal: Improved Oral Intake Outcome: Ongoing, Progressing Problem: Self-Care Deficit Goal: Improved Ability to Complete Activities of Daily Living Outcome: Ongoing, Progressing * Progress Notes - Vincent Gonzalez - 10/13/2024 8:52 AM EDT Case Management Adult Progress Note Andrew Jake Oconnor 54 y.o. female CSN: [id number] Admission: 09/30/2024 2:02 PM Primary Problem: HE (hepatic encephalopathy) (CMS/HCC) Anticipated Discharge Date: TBD Plan of care reviewed with pt's care team; and per MD, pt is medically ready for discharge pending placement. HONG followed up with Erika in admission at [facility] #[phone]. Erika informed HONG that she has attempted to get ahold of State Guardian (Judi) so she could initiate precert. HONG followed up with Judi via Phone at [phone], Judi reported that she had ensure that patient would be able to attend [facility] and would call HONG back. HONG provided Judi with Erika (Head Waiter/Waitress Banquet) with [facility] phone numbers. SW will continue to follow-up with pt's MD and care team on their progress and discharge plan. Vincent Gonzalez, BENCH [employer]ING MACHINE OPERATOR, COMPOSITION ROOFER * Care Plan - Juancho Fofana RN - 10/13/2024 6:54 AM EDT Patient showered last night and washed hair. Had more than 4 bowel movements secondary to lactulose. Slept well throughout the night. No acute distress. Will report to day shift nurse. * Care Plan - Leon Davis RN - 10/12/2024 11:09 AM EDT Problem: Adult Inpatient Plan of Care Goal: Patient-Specific Goal (Individualized) Outcome: Ongoing, Progressing Flowsheets (Taken 10/12/2024 0800) Patient/Family-Specific Goals (Include Timeframe): pt will remain free from harm/injury during shift Individualized Care Needs: safety Anxieties, Fears or Concerns: none stated Problem: Fall Injury Risk Goal: Absence of Fall and Fall-Related Injury Outcome: Ongoing, Progressing Problem: Liver Failure Goal: Optimal Coping with Liver Failure Outcome: Ongoing, Progressing Goal: Optimize Neurologic Function Outcome: Ongoing, Progressing Problem: Self-Care Deficit Goal: Improved Ability to Complete Activities of Daily Living Outcome: Ongoing, Progressing * Progress Notes - Gucci Martines - 10/12/2024 10:24 AM EDT Images from the original note were not included. Hospital Medicine Progress Note Subjective Length of stay: 12 days Brief Patient Summary: Andrew Oconnor is a 50 y/o F with Hx of BOWDEN Cirrhosis with history of HE, mild cognitive delay, childhood ALL, meningioma, migraines, hypothyroidism, HTN, PUD, Depression/Anxiety, FERNANDEZ who [facility] with altered mental status secondary to hepatic encephalopathy. Currently on lactulose 20 TID, rifaximin, coreg. Subjective NAEON. Strong PO intake and continues to urinate well. At goal of 3-4 BM daily. Awaiting placement.No other concerns. Review of Systems Review of Systems All other systems reviewed and are negative. Objective Objective Last Recorded Vitals Blood pressure 126/62, pulse 74, temperature 36.6 ??C (97.9 ??F), resp. rate 18, height 1.524 m (5'), weight 106 kg (234 lb 9.1 oz), SpO2 96%. Physical Exam Constitutional: Appearance: She is not ill-appearing. HENT: Head: Normocephalic and atraumatic. Mouth/Throat: Mouth: Mucous membranes are moist. Cardiovascular: Rate and Rhythm: Normal rate. Pulses: Normal pulses. Heart sounds: Normal heart sounds. Pulmonary: Effort: Pulmonary effort is normal. No respiratory distress. Breath sounds: Normal breath sounds. Abdominal: General: Abdomen is flat. Palpations: Abdomen is soft. Tenderness: There is no abdominal tenderness. Musculoskeletal: Right lower leg: Edema present. Left lower leg: Edema present. Skin: General: Skin is warm. Capillary Refill: Capillary refill takes less than 2 seconds. Neurological: Mental Status: She is alert and oriented to person, place, and time. Mental status is at baseline. Assessment/Plan Assessment & Plan Principal Problem: HE (hepatic encephalopathy) (CMS/HCC) Active Problems: Acute encephalopathy KYLIE (acute kidney injury) (CMS/HCC) Hypoglycemia Andrew Oconnor is a 50 y/o F with Hx of BOWDEN Cirrhosis with history of HE, mild cognitive delay, childhood ALL, meningioma, migraines, hypothyroidism, HTN, PUD, Depression/Anxiety, FERNANDEZ who [facility] ([place]) with altered mental status secondary to hepaticencephalopathy. Today: - Subacute recs, pending placement - Continue current treatment Acute: #Hepatic Encephalopathy #MASH Cirrhosis #Portal Hypertension -Patient was noted to be altered and not acting like herself on 09/30/24. - Infectious, intracranial, and toxic workup was negative in the ED. Patient had missed many doses of Lactulose at facility and was highly likely to be altered due to HE. Patient back to baseline. Plan: - Continue Lactulose 20g TID, titrating to 3-4 bowel movements daily - Continue Rifaximin 550mg BID - Continue PPI - Continue Coreg - Continue alcides #Acute Kidney Injury, resolved - Likely due to poor intake, patient has high specific gravity on UA - Baseline creatinine ~ 0.8-1.0. Current Creatinine back at baseline, improved from 1.28. - Patient doing well with PO intake Plan: - Continue to encourage PO intake. - Monitor I&Os #Hypoglycemia, resolved - FSBG 65 on arrival, likely due to poor intake in setting of altered mental status and dehydration Plan: - Monitor - Encourage PO intake #Sinusitis, resolved - Noted on CT imaging - Mildly symptomatic Plan - Supportive care #Neck Tenderness - Low suspicion to be related to thyroid. Low suspicion for tooth or neck abscess based on exam. - Neck US with benign small reactive lymph node Chronic Conditions #Meningioma - stable on [facility], followed by [facility] in past #HTN: continue Carvedilol 3.125mg BID; hold amlodipine #Hypothyroidism - continue Levothyroxine 88mcg #VENUS - consider resuming iron PO #PUD: Continue PPI daily #HFpEF - continue Coreg and Spironolactone #Depression/Anxiety/Possible Conversion Disorder/Bipolar - continue Oxcarbazepine 150 mg BID, Duloxetine 60 mg daily, Amitriptyline 50 mg nightly #Headaches/Migraines - chronic #Vitamin D Deficiency - Vitamin D 1-25 normal #FERNANDEZ - not on cpap #Morbid Obesity - Weight 112 kg, complicates all aspects of care Fluids: PO DVT Ppx: PLOV Diet: Regular diet Code status: Full Code Discharge Planning: Anticipated discharge to: Rehab facility (specify), precert in motion Anticipated discharge needs: None Family Contact: Judi Owens Follow-up: PCP Gastroenterology No future appointments. Gucci Martines, MS4 Cosigned by Evette Goodrich MD at 10/12/2024 3:46 PM EDT Associated attestation - Evette Goodrich MD - 10/12/2024 3:46 PM EDT I saw and evaluated the patient with the medical/CAR BARN LABORER/PA student. I discussed the case with the medical/CAR BARN LABORER/PA student and agree with the findings and plan as documented. I personally performed the Examand Medical Decision Making. * Care Plan - Shakir Guidry RN - 10/12/2024 3:43 AM EDT Problem: Adult Inpatient Plan of Care Goal: Plan of Care Review Outcome: Ongoing, Progressing Goal: Patient-Specific Goal (Individualized) Outcome: Ongoing, Progressing Goal: Absence of Hospital-Acquired Illness or Injury Outcome: Ongoing, Progressing Goal: Optimal Comfort and Wellbeing Outcome: Ongoing, Progressing Goal: Readiness for Transition of Care Outcome: Ongoing, Progressing Problem: Fall Injury Risk Goal: Absence of Fall and Fall-Related Injury Outcome: Ongoing, Progressing Problem: Pain Acute Goal: Optimal Pain Control and Function Outcome: Ongoing, Progressing Problem: Liver Failure Goal: Optimal Coping with Liver Failure Outcome: Ongoing, Progressing Goal: Absence of Bleeding Outcome: Ongoing, Progressing Goal: Fluid and Electrolyte Balance Outcome: Ongoing, Progressing Goal: Minimize and Manage Gastrointestinal Symptoms Outcome: Ongoing, Progressing Goal: Blood Glucose Level Within Target Range Outcome: Ongoing, Progressing Goal: Hemodynamic Stability Outcome: Ongoing, Progressing Goal: Absence of Infection Signs and Symptoms Outcome: Ongoing, Progressing Goal: Optimize Neurologic Function Outcome: Ongoing, Progressing Goal: Improved Oral Intake Outcome: Ongoing, Progressing Goal: Optimal Pain Control, Comfort and Function Outcome: Ongoing, Progressing Goal: Effective Oxygenation and Ventilation Outcome: Ongoing, Progressing Problem: Self-Care Deficit Goal: Improved Ability to Complete Activities of Daily Living Outcome: Ongoing, Progressing * Progress Notes - Evette Goodrich MD - 10/11/2024 11:38 AM EDT Images from the original note were not included. Hospital Medicine Progress Note Subjective Length of stay: 11 days Subjective She continues to complain of this pain in her neck, it is right below the jaw. Otherwise, no new complains. Review of Systems Review of Systems Constitutional: Negative for fever. Respiratory: Negative for shortness of breath. Cardiovascular: Negative for chest pain. Gastrointestinal: Negative for constipation. Objective Objective Last Recorded Vitals Blood pressure 128/71, pulse 71, temperature 36.7 ??C (98 ??F), resp. rate 16, height 1.524 m (5'),weight 106 kg (234 lb 9.1 oz), SpO2 93%. Physical Exam Constitutional: General: She is not in acute distress. HENT: Mouth/Throat: Mouth: Mucous membranes are moist. Neck: Comments: No palpable lymph nodes or gland swelling. Cardiovascular: Rate and Rhythm: Normal rate. Heart sounds: Normal heart sounds. Pulmonary: Effort: Pulmonary effort is normal. No respiratory distress. Breath sounds: Normal breath sounds. Abdominal: General: Abdomen is flat. Palpations: Abdomen is soft. Tenderness: There is no abdominal tenderness. Musculoskeletal: Right lower leg: Edema present. Left lower leg: Edema present. Skin: General: Skin is warm. Neurological: Mental Status: She is alert. Mental status is at baseline. Assessment/Plan Assessment & Plan Principal Problem: HE (hepatic encephalopathy) (CMS/HCC) Active Problems: Acute encephalopathy KYLIE (acute kidney injury) (CMS/HCC) Hypoglycemia Andrew Oconnor is a 50 y/o F with Hx of BOWDEN Cirrhosis with history of HE, mild cognitive delay, childhood ALL, meningioma, migraines, hypothyroidism, HTN, PUD, Depression/Anxiety, FERNANDEZ who [facility] ([place]) with altered mental status secondary to hepaticencephalopathy. #Hepatic Encephalopathy #MASH Cirrhosis #Portal Hypertension -Patient was noted to be altered and not acting like herself on 09/30/24. - Infectious, intracranial, and toxic workup was negative in the ED. Patient had missed many doses of Lactulose at facility and was highly likely to be altered due to HE. Patient back to baseline. Plan: - Continue Lactulose 20g TID, titrating to 3-4 bowel movements daily - Continue Rifaximin 550mg BID - Continue PPI - Continue Coreg - Continue alcides #Neck Tenderness - Had no obvious lesions contributing to this on the CT neck done on 10/03 - got ultrasound on 10/11 - reactive lymph nodes, no abnormality in the submandibular glands or parotid #Acute Kidney Injury, resolved - Likely due to poor intake, patient has high specific gravity on UA - Baseline creatinine ~ 0.8-1.0. Current Creatinine back at baseline, improved from 1.28. - Patient doing well with PO intake Plan: - Continue to encourage PO intake. - Monitor I&Os #Hypoglycemia, resolved - FSBG 65 on arrival, likely due to poor intake in setting of altered mental status and dehydration Plan: - Monitor - Encourage PO intake #Sinusitis, resolved - Noted on CT imaging - Mildly symptomatic Plan - Supportive care Chronic Conditions #Meningioma - stable on [facility], followed by [facility] in past #HTN: continue Carvedilol 3.125mg BID; hold amlodipine #Hypothyroidism - continue Levothyroxine 88mcg #VENUS - resumed iron PO #PUD: Continue PPI daily #HFpEF - continue Coreg and Spironolactone #Depression/Anxiety/Possible Conversion Disorder/Bipolar - continue Oxcarbazepine 150 mg BID, Duloxetine 60 mg daily, Amitriptyline 50 mg nightly #FERNANDEZ - not on cpap - defer to outpatient #Morbid Obesity - Weight 112 kg, complicates all aspects of care Fluids: PO DVT Ppx: PLOV Diet: Regular diet Code status: Full Code Discharge Planning: Anticipated discharge to: Rehab facility (specify), precert in motion Anticipated discharge needs: None Family Contact: Judi Owens Follow-up: PCP Gastroenterology No future appointments. * Care Plan - Laci Subramanian - 10/10/2024 7:41 PM EDT Problem: Adult Inpatient Plan of Care Goal: Plan of Care Review Outcome: Ongoing, Progressing Goal: Patient-Specific Goal (Individualized) Outcome: Ongoing, Progressing Goal: Absence of Hospital-Acquired Illness or Injury Outcome: Ongoing, Progressing Goal: Optimal Comfort and Wellbeing Outcome: Ongoing, Progressing Goal: Readiness for Transition of Care Outcome: Ongoing, Progressing Problem: Fall Injury Risk Goal: Absence of Fall and Fall-Related Injury Outcome: Ongoing, Progressing Problem: Pain Acute Goal: Optimal Pain Control and Function Outcome: Ongoing, Progressing Problem: Liver Failure Goal: Optimal Coping with Liver Failure Outcome: Ongoing, Progressing Goal: Absence of Bleeding Outcome: Ongoing, Progressing Goal: Fluid and Electrolyte Balance Outcome: Ongoing, Progressing Goal: Minimize and Manage Gastrointestinal Symptoms Outcome: Ongoing, Progressing Goal: Blood Glucose Level Within Target Range Outcome: Ongoing, Progressing Goal: Hemodynamic Stability Outcome: Ongoing, Progressing Goal: Absence of Infection Signs and Symptoms Outcome: Ongoing, Progressing Goal: Optimize Neurologic Function Outcome: Ongoing, Progressing Goal: Improved Oral Intake Outcome: Ongoing, Progressing Goal: Optimal Pain Control, Comfort and Function Outcome: Ongoing, Progressing Goal: Effective Oxygenation and Ventilation Outcome: Ongoing, Progressing Problem: Self-Care Deficit Goal: Improved Ability to Complete Activities of Daily Living Outcome: Ongoing, Progressing * Progress Notes - Jay Mcdonald - 10/10/2024 1:37 PM EDT Physical Therapy Treatment Patient Name: Andrew Oconnor Today's Date: 10/10/2024 PT Discharge Recommendations: Subacute rehab Equipment Recommended: Defer to facility Subjective Patient reported hoping to discharge soon. Participants in Care Family/Caregiver Present: No Presentation Oxygen Therapy: None (Room air) Lines and Tubes: Intravenous access Pre-Session: Supine, Head of bed elevated, Lines intact Post-Session: Sitting in chair, RN notified, Lines intact, Chair alarm, Call light in reach Post-Session Comments: Patient positioned for comfort and left with all needs within reach Precautions Medical Precautions: Fall precautions Objective Pain Patient reported knee pain but did not rate when asked, positioned for comfort. Delirium Screening Moore Agitation Sedation Scale (RASS): Alert and calm Confusion Assessment Method-ICU (CAM-ICU/PCAM-ICU) Feature 3: Altered Level of Consciousness: Negative Bed Mobility Bed Mobility Exam: Scooting/Bridging Level of Grayson: Contact guard Physical/Nonphysical Assist: Verbal Cues Bed Mobility Exam: Supine to Sit Level of Grayson: Contact guard Physical/Nonphysical Assist: Verbal Cues Transfers Transfer Exam: Sit to stand Level of Grayson: Contact guard Physical/Nonphysical Assist: Verbal Cues Assistive Device: Walker, rolling Transfer Exam: Stand to Sit Level of Grayson: Contact guard Physical/Nonphysical Assist: Verbal Cues Assistive Device: Walker, rolling Toilet Transfer Level of Grayson: Contact guard Physical/Nonphysical Assist: Verbal Cues Type of Transfer: Ambulation, To toilet Assistive Device: Walker, rolling Ambulation Device: Rolling walker Assistance: Contact guard assist Distance : 18 ft. + 100 ft. + 100 ft. Ambulation Comments: Patient demonstrates decreased gait speed and jose luis and required prolonged seated rest break to complete mobility activities Therapeutic Activity ( 38 minutes) Patient participated in seated and standing balance activities with physical therapist to promote further out of bed activities and increase functional independence to reduce caregiver burden. Patient able to complete standing activities at sink for ADL performance with CGA and required seated restbreak to complete activities. Standardized Assessments Standardized Assessments Standardized Assessments: [facility] 6-Clicks Mobility Assessment [facility] 6-Clic[facility] Mobility Assessment Difficulty patient has turning over in bed (including adjusting bedclothes, sheets, and blankets)?:A little Difficulty patient has sitting down on and standing up from a chair with arms (wheelchair, bedside commode, etc.)?: A little Difficulty patient has moving from lying on back to sitting on the side of the bed?: A little How much help does the patient need moving to and from a bed to a chair (including a wheelchair)?: A little How much help does the patient need to walk in hospital room?: A little How much help does the patient need climbing 3-5 steps with a railing?: A lot [facility] 6-Clicks Mobility Assessment Total : 17 Assessment Patient demonstrates improving mobility but continues to require increased cues and assist for positioning to increase efficiency of transfers. Patient required cues for sequencing and hand placementwith use of assistive device. Patient reported a 5/10 on eli RPE during ambulation activities. Patient continues to demonstrate decreased functional mobility and would benefit from continued physical therapy to address needs. PT Recommendations Discharge Destination: Subacute rehab Discharge Equipment: Defer to facility Plan Progress mobility as able. PT Goals PT GOAL DETAILS Goal Established Date Time Frame Goal Status PT Goal 1: Pt will demonstrate supine<>sit transfers with SBA and using LRAD 10/03/24 2 weeks PT Goal 2: Pt will demonstrate sit<>stand transfers with SBA and using LRAD. 10/03/24 2 weeks PT Goal 3: Pt will ambulate 100' or more with SBA and using LRAD. 10/03/24 2 weeks PT Goal 4: Pt will demonstrate independence with all home instructions and precautions by providingteach back to PT 10/03/24 2 weeks Written by Jay Mcdonald on 10/10/24 at 1:38 PM. * Progress Notes - Gucci Martines - 10/10/2024 1:25 PM EDT Images from the original note were not included. Hospital Medicine Progress Note Subjective Length of stay: 10 days Brief Patient Summary: Andrew Oconnor is a 50 y/o F with Hx of BOWDEN Cirrhosis with history of HE, mild cognitive delay, childhood ALL, meningioma, migraines, hypothyroidism, HTN, PUD, Depression/Anxiety, FERNANDEZ who [facility] with altered mental status secondary to hepatic encephalopathy. Currently on lactulose 20 TID, rifaximin, coreg. Subjective NAEON. Out of bed and laying in her chair next to the window. Strong PO intake and continues to urinate well. At goal of 3-4 BM daily. Continues to report thyroid pain pointing to submandibular area. Says her hearing has been worsening. Also says her lower mouth has been painful. Awaiting placement. No other concerns. Review of Systems Review of Systems All other systems reviewed and are negative. Objective Objective Last Recorded Vitals Blood pressure 120/74, pulse 76, temperature 36.5 ??C (97.7 ??F), resp. rate 16, height 1.524 m (5'), weight 106 kg (234 lb 9.1 oz), SpO2 96%. Physical Exam Constitutional: Appearance: She is not ill-appearing. HENT: Head: Normocephalic and atraumatic. Mouth/Throat: Mouth: Mucous membranes are moist. Neck: Comments: distractible tenderness in submandibular area Cardiovascular: Rate and Rhythm: Normal rate. Pulses: Normal pulses. Heart sounds: Normal heart sounds. Pulmonary: Effort: Pulmonary effort is normal. No respiratory distress. Breath sounds: Normal breath sounds. Abdominal: General: Abdomen is flat. Palpations: Abdomen is soft. Tenderness: There is no abdominal tenderness. Musculoskeletal: Right lower leg: Edema present. Left lower leg: Edema present. Skin: General: Skin is warm. Capillary Refill: Capillary refill takes less than 2 seconds. Neurological: Mental Status: She is alert and oriented to person, place, and time. Mental status is at baseline. Assessment/Plan Assessment & Plan Principal Problem: HE (hepatic encephalopathy) (CMS/HCC) Active Problems: Acute encephalopathy KYLIE (acute kidney injury) (CMS/HCC) Hypoglycemia Andrew Oconnor is a 50 y/o F with Hx of BOWDEN Cirrhosis with history of HE, mild cognitive delay, childhood ALL, meningioma, migraines, hypothyroidism, HTN, PUD, Depression/Anxiety, FERNANDEZ who [facility] ([place]) with altered mental status secondary to hepaticencephalopathy. Today: - Subacute recs, pending placement - Continue current treatment Acute: #Hepatic Encephalopathy #MASH Cirrhosis #Portal Hypertension -Patient was noted to be altered and not acting like herself on 09/30/24. - Infectious, intracranial, and toxic workup was negative in the ED. Patient had missed many doses of Lactulose at facility and was highly likely to be altered due to HE. Patient back to baseline. Plan: - Continue Lactulose 20g TID, titrating to 3-4 bowel movements daily - Continue Rifaximin 550mg BID - Continue PPI - Continue Coreg - Continue alcides #Neck Tenderness #Mouth pain - Low suspicion to be related to thyroid. Low suspicion for tooth or neck abscess based on exam. - will defer workup to outpatient #Acute Kidney Injury, resolved - Likely due to poor intake, patient has high specific gravity on UA - Baseline creatinine ~ 0.8-1.0. Current Creatinine back at baseline, improved from 1.28. - Patient doing well with PO intake Plan: - Continue to encourage PO intake. - Monitor I&Os #Hypoglycemia, resolved - FSBG 65 on arrival, likely due to poor intake in setting of altered mental status and dehydration Plan: - Monitor - Encourage PO intake #Sinusitis, resolved - Noted on CT imaging - Mildly symptomatic Plan - Supportive care Chronic Conditions #Meningioma - stable on CTH, followed by [facility] in past #HTN: continue Carvedilol 3.125mg BID; hold amlodipine #Hypothyroidism - continue Levothyroxine 88mcg #VENUS - consider resuming iron PO #PUD: Continue PPI daily #HFpEF - continue Coreg and Spironolactone #Depression/Anxiety/Possible Conversion Disorder/Bipolar - continue Oxcarbazepine 150 mg BID, Duloxetine 60 mg daily, Amitriptyline 50 mg nightly #Headaches/Migraines - chronic #Vitamin D Deficiency - Vitamin D 1-25 normal #FERNANDEZ - not on cpap #Morbid Obesity - Weight 112 kg, complicates all aspects of care Fluids: PO DVT Ppx: PLOV Diet: Regular diet Code status: Full Code Discharge Planning: Anticipated discharge to: Rehab facility (specify), precert in motion Anticipated discharge needs: None Family Contact: Judi Owens Follow-up: PCP Gastroenterology No future appointments. Gucci Martines, MS4 Cosigned by Evette Goodrich MD at 10/11/2024 11:46 AM EDT Associated attestation - Evette Goodrich MD - 10/11/2024 11:46 AM EDT I saw and evaluated the patient with the medical/CAR [employer]ARN [employer]/PA student. I discussed the case with the medical/CAR BARN LABORER/PA student and agree with the findings and plan as documented. I personally performed the Examand Medical Decision Making. * Progress Notes - Amy Cruz - 10/10/2024 10:14 AM EDT Occupational Therapy Treatment Patient Name: Andrew Oconnor Today's Date: 10/10/2024 OT Discharge Recommendations: Subacute rehab Equipment Recommended: Defer to facility, Rollator Subjective Patient agreeable to OT treatment following RN's consent. Participants in Care Family/Caregiver Present: No Presentation Oxygen Therapy: None (Room air) Lines and Tubes: Intravenous access Pre-Session: Supine, Head of bed elevated, Lines intact, Bed alarm Post-Session: Sitting in chair, Chair alarm, Lines intact, RN notified, Call light in reach Post-Session Comments: Patient positioned for comfort and left with all needs within reach Precautions Medical Precautions: Fall precautions Objective Pain Patient denies pain throughout session. Patient provided with cuing throughout activity for pain management techniques and provided with repositioning for comfort and pressure relief. Delirium Screening Moore Agitation Sedation Scale (RASS): Alert and calm Confusion Assessment Method-ICU (CAM-ICU/PCAM-ICU) Feature 3: Altered Level of Consciousness: Negative Cognition Cognition Overall Cognitive Status: Impaired Arousal/Alertness: Delayed responses to stimuli Mood/Behavior: Alert, Impulsive, Distractible Orientation Level: Oriented to place, Oriented to person, Oriented to situation Orientation Level Comments: baseline cognitive delay Single Step Commands: Consistently, With increased time Multi-Step Commands: Consistently, With increased time, With repetition Method of Communication: Verbal Safety Judgment: Decreased awareness of need for assistance Awareness of Errors: Assistance required to identify errors made Deficit Awareness: Decreased awareness of deficits Attention Span: Appears intact Self-Care Interventions Self Care/Home Management (ADLs) Time Entry: 38 Feeding Feeding Level of Assistance: Setup, Modified independent Feeding Where Assessed: Chair Level Feeding Interventions: pt demo's functional taurus UE strength and dexterity needed for food tray set up and self feeding routine from supported sitting Grooming Grooming Level of Assistance: Setup, Contact guard Grooming Where Assessed: Sitting sinkside Grooming Interventions: pt maintains stand x 2 min at sink for face and hand washing, pt requires seated position for hair brushing and hair washing activity with min A for brushing of posterior head2/2 taurus shoulder weakness for sustained overhead posterior functional reach Bathing UE Bathing Level of Assistance: SBA, Setup LE Bathing Level of Assistance: Moderate assistance Bathing: Where Assessed: Chair level Bathing Interventions: sponge bathing routine, seated, with assist from staff accountant, reiteration for use of adapted technique in the form of energy conservation and work simplification UE Dressing UE Dressing Level of Assistance: SBA, Setup UE Dressing Where Assessed: Edge of bed UE Dressing Interventions: gown management Lower Extremity Dressing Sock Level of Assistance: Maximum assistance, Setup Adult Briefs Level of Assistance: Maximum assistance, Setup LE Dressing Where Assessed: Edge of bed LE Dressing Interventions: cont'd difficulty anteriorally reaching for flexed forward positioning 2/2 weakness, abdominal habitus, and decreased flexibility at hips/knees for distal reaching of LE's Toileting Toileting Level of Assistance: Setup, Minimum assistance Where Assessed: Toilet Toileting Interventions: CGA for ambulation using RW to/from bathroom for toileting routine, CGA for toilet transfers, CGA for dorys care in sitting, CGA for standing balance using RW with LB clothingmanagement Patient participates in therapeutic activity addressing functional activity tolerance and enduranceneeded for ADL tasks. Patient completes bed mobility with CGA and cuing for adapted technique usingbed rails from elevated HOB position. Patient requires CGA for scooting toward EOB in prep for standing- maintains EOB sitting x5 min total. Patient requires CGA for sit>stand transfer using RW, ma intains static standing balance with CGA, dynamic standing balance with min A, and ambulates < household simulated distances with 2 seated rest breaks (on on commode, one in chair during additional ambulation). Patient requires CGA f or stand>sit, and SBA for repositioning in bedside chair for comfort and pressure relief following OOB activity. Patient provided with cuing for functional ceci thing, posture/body mechanics, safety/fall prevention, RW management, way finding, work simplification, and energy conservation techniques throughout participation in out of bed activity. Patient's vitals remain WNL throughout participation. Assessment Patient progressing well toward OT goals, continue with cognitive, safety, strength, balance, endurance and activity tolerance training in prep for ADL/IADL tasks as pt continues to be limited by generalized weakness, mild cog delay, instability in standing, deconditioning, and dyspnea with exertion. Patient remains at high risk for falling with increased assist from staff for basic self care routines from sitting position 2/2 fair standing activity tolerance and endurance. Continue with OT POCand discharge recommendations- pt remains motivated and agreeable. OT Recommendations Discharge Destination: Subacute rehab Discharge Equipment: Defer to facility, Rollator Plan Patient remains appropriate for current OT POC. Continue OT POC. Goals OT GOAL DETAILS Goal Established Date Time Frame Goal Status OT Goal 1: Pt will verbalize or demonstrate understanding of UE HEP and discharge recommendations. 10/03/24 2 weeks OT Goal 2: Pt will perform functional transfers (including toilet transfer) with mod I using RW or rollator. 10/03/24 2 weeks OT Goal 3: Pt will complete all toileting tasks at RW (or rollator) level with mod I using AE PRN. 10/03/24 2 weeks OT Goal 4: Pt will perform LB dressing tasks with mod I using AE PRN. 10/03/24 2 weeks Written by Amy Cruz on 10/10/24 at 1:15 PM. * Progress Notes - Gilda Quiles RN - 10/10/2024 9:39 AM EDT Case Management Adult Progress Note Andrew Oconnor 54 y.o. female CSN: [id number] Admission: 09/30/2024 2:02 PM Primary Problem: HE (hepatic encephalopathy) (CMS/HCC) Anticipated Discharge Date: TBD Per team and chart review pt is pending insurance precert for [facility]. ARCADIO GARCES contacted [facility]#[phone] to check on precert status, spoke with Erika in admission. July is stating that they will call pt's guardian to confirmthat pt has a place to go after short term rehab and then she will initiate precert.- July will call back with update once she speaks with guardian. Team aware. ARCADIO GARCES will continue to follow and assist as needed. Addendum 15:10: July called back this ARCADIO GARCES stating that she called and left VM for the guardian -awaiting to hear back at this time. Gilda Quiles RN * Care Plan - Ariadne Tang RN - 10/10/2024 1:32 AM EDT Problem: Adult Inpatient Plan of Care Goal: Plan of Care Review Outcome: Ongoing, Progressing Flowsheets Taken 10/08/2024 2305 by Marybel Ellis Plan of Care Reviewed With: patient Taken 10/07/2024 2337 by Marybel Ellis Progress: improving Problem: Adult Inpatient Plan of Care Goal: Absence of Hospital-Acquired Illness or Injury Outcome: Ongoing, Progressing Problem: Adult Inpatient Plan of Care Goal: Optimal Comfort and Wellbeing Outcome: Ongoing, Progressing Problem: Adult Inpatient Plan of Care Goal: Readiness for Transition of Care Outcome: Ongoing, Progressing Problem: Fall Injury Risk Goal: Absence of Fall and Fall-Related Injury Outcome: Ongoing, Progressing Problem: Pain Acute Goal: Optimal Pain Control and Function Outcome: Ongoing, Progressing Problem: Liver Failure Goal: Optimal Coping with Liver Failure Outcome: Ongoing, Progressing Problem: Liver Failure Goal: Absence of Bleeding Outcome: Ongoing, Progressing Problem: Liver Failure Goal: Fluid and Electrolyte Balance Outcome: Ongoing, Progressing Problem: Liver Failure Goal: Minimize and Manage Gastrointestinal Symptoms Outcome: Ongoing, Progressing Problem: Liver Failure Goal: Hemodynamic Stability Outcome: Ongoing, Progressing * Care Plan - Rama Puentes - 10/09/2024 11:43 AM EDT Problem: Adult Inpatient Plan of Care Goal: Plan of Care Review Outcome: Ongoing, Progressing Goal: Patient-Specific Goal (Individualized) Outcome: Ongoing, Progressing Goal: Absence of Hospital-Acquired Illness or Injury Outcome: Ongoing, Progressing Goal: Optimal Comfort and Wellbeing Outcome: Ongoing, Progressing Goal: Readiness for Transition of Care Outcome: Ongoing, Progressing Problem: Fall Injury Risk Goal: Absence of Fall and Fall-Related Injury Outcome: Ongoing, Progressing Problem: Pain Acute Goal: Optimal Pain Control and Function Outcome: Ongoing, Progressing Problem: Liver Failure Goal: Optimal Coping with Liver Failure Outcome: Ongoing, Progressing Goal: Absence of Bleeding Outcome: Ongoing, Progressing Goal: Fluid and Electrolyte Balance Outcome: Ongoing, Progressing Goal: Minimize and Manage Gastrointestinal Symptoms Outcome: Ongoing, Progressing Goal: Blood Glucose Level Within Target Range Outcome: Ongoing, Progressing Goal: Hemodynamic Stability Outcome: Ongoing, Progressing Goal: Absence of Infection Signs and Symptoms Outcome: Ongoing, Progressing Goal: Optimize Neurologic Function Outcome: Ongoing, Progressing Goal: Improved Oral Intake Outcome: Ongoing, Progressing Goal: Optimal Pain Control, Comfort and Function Outcome: Ongoing, Progressing Goal: Effective Oxygenation and Ventilation Outcome: Ongoing, Progressing Problem: Self-Care Deficit Goal: Improved Ability to Complete Activities of Daily Living Outcome: Ongoing, Progressing * Progress Notes - Gucci Martines - 10/09/2024 11:41 AM EDT Images from the original note were not included. Hospital Medicine Progress Note Subjective Length of stay: 9 days Brief Patient Summary: Andrew Oconnor is a 50 y/o F with Hx of BOWDEN Cirrhosis with history of HE, mild cognitive delay, childhood ALL, meningioma, migraines, hypothyroidism, HTN, PUD, Depression/Anxiety, FERNANDEZ who [facility] with altered mental status secondary to hepatic encephalopathy. Currently on lactulose 20 TID, rifaximin, coreg. Subjective NAEON. Slept well. Out of bed and laying in her chair next to the window. At goal of 3-5 BM daily. Awaiting placement. No other concerns. Review of Systems Review of Systems All other systems reviewed and are negative. Objective Objective Last Recorded Vitals Blood pressure 110/65, pulse 78, temperature 36.6 ??C (97.9 ??F), temperature source Oral, resp. rate 18, height 1.524 m (5'), weight 106 kg (234 lb 9.1 oz), SpO2 93%. Physical Exam Constitutional: Appearance: She is not ill-appearing. HENT: Head: Normocephalic and atraumatic. Mouth/Throat: Mouth: Mucous membranes are moist. Cardiovascular: Rate and Rhythm: Normal rate. Heart sounds: Normal heart sounds. Pulmonary: Effort: Pulmonary effort is normal. No respiratory distress. Abdominal: General: Abdomen is flat. Palpations: Abdomen is soft. Tenderness: There is no abdominal tenderness. Musculoskeletal: Right lower leg: Edema present. Left lower leg: Edema present. Skin: General: Skin is warm. Capillary Refill: Capillary refill takes less than 2 seconds. Neurological: Mental Status: She is alert and oriented to person, place, and time. Mental status is at baseline. Assessment/Plan Assessment & Plan Principal Problem: HE (hepatic encephalopathy) (CMS/HCC) Active Problems: Acute encephalopathy KYLIE (acute kidney injury) (CMS/[facility]) Hypoglycemia Andrew Oconnor is a 50 y/o F with Hx of BOWDEN Cirrhosis with history of HE, mild cognitive delay, childhood ALL, meningioma, migraines, hypothyroidism, HTN, PUD, Depression/Anxiety, FERNANDEZ who [facility] ([place]) with altered mental status secondary to hepaticencephalopathy. Today: - Subacute recs, pending placement - Continue current treatment Acute: #Hepatic Encephalopathy #MASH Cirrhosis #Portal Hypertension -Patient was noted to be altered and not acting like herself on 09/30/24. - Infectious, intracranial, and toxic workup was negative in the ED. Patient had missed many doses of Lactulose at facility and was highly likely to be altered due to HE. Patient back to baseline. Plan: - Continue Lactulose 20g TID, titrating to 3-4 bowel movements daily - Continue Rifaximin 550mg BID - Continue PPI - Continue Coreg - Continue alcides #Acute Kidney Injury, resolved - Likely due to poor intake, patient has high specific gravity on UA - Baseline creatinine ~ 0.8-1.0. Current Creatinine back at baseline, improved from 1.28. - Patient doing well with PO intake Plan: - Continue to encourage PO intake. - Monitor I&Os #Hypoglycemia, resolved - FSBG 65 on arrival, likely due to poor intake in setting of altered mental status and dehydration Plan: - Monitor - Encourage PO intake #Sinusitis, resolved - Noted on CT imaging - Mildly symptomatic Plan - Supportive care Chronic Conditions #Meningioma - stable on CTH, followed by [facility] in past #HTN: continue Carvedilol 3.125mg BID; resume Amlodipine 5 mg daily if patient has SBP >160, otherwise hold #Hypothyroidism - continue Levothyroxine 88mcg #VENUS - consider resuming iron PO #PUD: Continue PPI daily #HFpEF - EF 60 to 80% in 2020, grade II diastolic function noted, not in exacerbation, no chest pain noted, continue Coreg and Spironolactone #Depression/Anxiety/Possible Conversion Disorder/Bipolar - continue Oxcarbazepine 150 mg BID, Duloxetine 60 mg daily, Amitriptyline 50 mg nightly #Headaches/Migraines - chronic #Seasonal Allergies - hold Cetirizine 10 mg daily, may exacerbate confusion #Vitamin D Deficiency - Vitamin D 1-25 normal #FERNANDEZ - not on cpap #Morbid Obesity - Weight 112 kg, complicates all aspects of care Fluids: PO DVT Ppx: PLOV Diet: Regular diet Code status: Full Code Discharge Planning: Anticipated discharge to: Rehab facility (specify) Anticipated discharge needs: None Family Contact: Judi Owens Follow-up: PCP Gastroenterology No future appointments. Gucci Martines, MS4 Cosigned by Evette Goodrich MD at 10/09/2024 5:23 PM EDT Associated attestation - Evette Goodrich MD - 10/09/2024 5:23 PM EDT I saw and evaluated the patient with the medical/[employer]ARN [employer]ER/PA student. I discussed the case with the medical/CAR BARN LABORER/PA student and agree with the findings and plan as documented. I personally performed the Examand Medical Decision Making. * Care Plan - Marybel Ellis - 10/08/2024 11:05 PM EDT Problem: Adult Inpatient Plan of Care Goal: Plan of Care Review Outcome: Ongoing, Progressing Flowsheets Taken 10/08/2024 2305 Plan of Care Reviewed With: patient Taken 10/07/2024 2337 Progress: improving Goal: Patient-Specific Goal (Individualized) Outcome: Ongoing, Progressing Goal: Absence of Hospital-Acquired Illness or Injury Outcome: Ongoing, Progressing Goal: Optimal Comfort and Wellbeing Outcome: Ongoing, Progressing Goal: Readiness for Transition of Care Outcome: Ongoing, Progressing Problem: Fall Injury Risk Goal: Absence of Fall and Fall-Related Injury Outcome: Ongoing, Progressing Problem: Pain Acute Goal: Optimal Pain Control and Function Outcome: Ongoing, Progressing Problem: Liver Failure Goal: Optimal Coping with Liver Failure Outcome: Ongoing, Progressing Goal: Absence of Bleeding Outcome: Ongoing, Progressing Goal: Fluid and Electrolyte Balance Outcome: Ongoing, Progressing Goal: Minimize and Manage Gastrointestinal Symptoms Outcome: Ongoing, Progressing Goal: Blood Glucose Level Within Target Range Outcome: Ongoing, Progressing Goal: Hemodynamic Stability Outcome: Ongoing, Progressing Goal: Absence of Infection Signs and Symptoms Outcome: Ongoing, Progressing Goal: Optimize Neurologic Function Outcome: Ongoing, Progressing Goal: Improved Oral Intake Outcome: Ongoing, Progressing Goal: Optimal Pain Control, Comfort and Function Outcome: Ongoing, Progressing Goal: Effective Oxygenation and Ventilation Outcome: Ongoing, Progressing Problem: Self-Care Deficit Goal: Improved Ability to Complete Activities of Daily Living Outcome: Ongoing, Progressing * Progress Notes - Maisha Chance RN - 10/08/2024 2:56 PM EDT Patient was referred to [facility]. No beds available at either facility. Referrals expanded and sent to multiple facilities. CM will continue to follow. * Progress Notes - Gucci Martines - 10/08/2024 12:15 PM EDT Images from the original note were not included. Hospital Medicine Progress Note Subjective Length of stay: 8 days Brief Patient Summary: Andrew Oconnor is a 50 y/o F with Hx of BOWDEN Cirrhosis with history of HE, mild cognitive delay, childhood ALL, meningioma, migraines, hypothyroidism, HTN, PUD, Depression/Anxiety, FERNANDEZ who [facility] with altered mental status secondary to hepatic encephalopathy. Currently on lactulose 20 TID, rifaximin, coreg. Subjective NAEON. Slept well. Says her thyroid hurts and points to submandibular area. Denies throat pain ortrouble with swallowing. At goal of 3-5 BM daily. Awaiting placement. No other concerns. Review of Systems Review of Systems All other systems reviewed and are negative. Objective Objective Last Recorded Vitals Blood pressure 128/76, pulse 74, temperature 36.6 ??C (97.8 ??F), resp. rate 16, height 1.524 m (5'), weight 106 kg (234 lb 9.1 oz), SpO2 92%. Physical Exam Constitutional: Appearance: She is not ill-appearing. HENT: Head: Normocephalic and atraumatic. Mouth/Throat: Mouth: Mucous membranes are moist. Cardiovascular: Rate and Rhythm: Normal rate. Pulmonary: Effort: Pulmonary effort is normal. No respiratory distress. Abdominal: General: Abdomen is flat. Palpations: Abdomen is soft. Tenderness: There is no abdominal tenderness. Musculoskeletal: Right lower leg: Edema present. Left lower leg: Edema present. Lymphadenopathy: Cervical: No cervical adenopathy. Skin: General: Skin is warm. Neurological: Mental Status: She is alert and oriented to person, place, and time. Assessment/Plan Assessment & Plan Principal Problem: HE (hepatic encephalopathy) (CMS/HCC) Active Problems: Acute encephalopathy KYLIE (acute kidney injury) (CMS/HCC) Hypoglycemia Andrew Oconnor is a 50 y/o F with Hx of BOWDEN Cirrhosis with history of HE, mild cognitive delay, childhood ALL, meningioma, migraines, hypothyroidism, HTN, PUD, Depression/Anxiety, FERNANDEZ who [facility] ([place]) with altered mental status secondary to hepaticencephalopathy. Today: - Subacute recs, pending placement - Continue current treatment Acute: #Hepatic Encephalopathy #MASH Cirrhosis #Portal Hypertension -Patient was noted to be altered and not acting like herself on 09/30/24. - Infectious, intracranial, and toxic workup was negative in the ED. In a known cirrhotic with prior HE and unclear compliance with Lactulose therapy, highly likely to be altered due to HE. Ammonia 149. Patient improving medically. Plan: - Continue Lactulose 20g TID, titrating to 3-5 bowel movements daily - Continue Rifaximin 550mg BID - Continue PPI - Continue Coreg, monitor HR - Continue alcides #Acute Kidney Injury, resolved - Likely due to poor intake, patient has high specific gravity on UA - Baseline creatinine ~ 0.8-1.0. Current Creatinine back at baseline, improved from 1.28. - Patient doing well with PO intake Plan: - Encourage PO intake. - Monitor I&Os #Hypoglycemia, improving - FSBG 65 on arrival, likely due to poor intake in setting of altered mental status and dehydration Plan: - Monitor - Encourage PO intake #Sinusitis - Noted on CT imaging - Mildly symptomatic Plan - Supportive care Chronic Conditions #Meningioma - stable on CTH, followed by AMAURY in past #HTN: continue Carvedilol 3.125mg BID; resume Amlodipine 5 mg daily if patient has SBP >160 #Hypothyroidism - continue Levothyroxine 88mcg #VENUS - repeat labs, consider resuming iron PO #PUD: Continue PPI daily #HFpEF - EF 60 to 80% in 2020, grade II diastolic function noted, not in exacerbation, no chest pain noted, continue Coreg and Spironolactone #Depression/Anxiety/Possible Conversion Disorder/Bipolar - continue Oxcarbazepine 150 mg BID, Duloxetine 60 mg daily, Amitriptyline 50 mg nightly) #Headaches/Migraines - chronic, APAP PRN, encourage CPAP compliance #Seasonal Allergies - hold Cetirizine 10 mg daily, may exacerbate confusion #Vitamin D Deficiency - Vitamin D 1-25 normal #FERNANDEZ - CPAP when appropriate #Morbid Obesity - Weight 112 kg, complicates all aspects of care Fluids: PO DVT Ppx: PLOV Diet: Regular diet Code status: Full Code Discharge Planning: Anticipated discharge to: Rehab facility (specify) Anticipated discharge needs: None Family Contact: Judi Owens Follow-up: PCP Gastroenterology No future appointments. Gucci Martines, MS4 Cosigned by Evette Goodrich MD at 10/08/2024 5:15 PM EDT Associated attestation - Evette Goodrich MD - 10/08/2024 5:15 PM EDT I saw and evaluated the patient with the medical/[employer] BARN LABORER/PA student. I discussed the case with the medical/CAR BARN LABORER/PA student and agree with the findings and plan as documented. I personally performed the Examand Medical Decision Making. * Care Plan - Lily Grigsby - 10/08/2024 11:26 AM EDT Problem: Adult Inpatient Plan of Care Goal: Plan of Care Review Outcome: Ongoing, Progressing Goal: Patient-Specific Goal (Individualized) Outcome: Ongoing, Progressing Goal: Absence of Hospital-Acquired Illness or Injury Outcome: Ongoing, Progressing Goal: Optimal Comfort and Wellbeing Outcome: Ongoing, Progressing Goal: Readiness for Transition of Care Outcome: Ongoing, Progressing * Consults - Kierra Montejo RD - 10/08/2024 9:22 AM EDT Adult Nutrition Evaluation Note Andrew Oconnor 54 y.o. female CSN: [id number] Room/Bed 129/129A Nutrition evaluation type: screen Reason for evaluation: LOS Hospital course: 50 y/o F presented with hepatic encephalopathy, portal hypertension, and KYLIE (now resolved). Pending placement. Past medical/ surgical history: BOWDEN Cirrhosis with history of HE, mild cognitive delay, childhood ALL, meningioma, migraines, conversion disorder (10/2020), hypothyroidism, HTN, PUD, Depression/Anxiety, FERNANDEZ, and Morbid Obesity Surgical History[1] Social history: Additional comments: 10/08: Pt seen at bedside. Eating well, ate 100% of lunch. Unsure of her UBW but does not feel she'shad any changes in weight recently. No chewing or swallowing difficulties though does note she's had gum soreness recently. No N/V/D/C reported. Vitals and Basic Assessment: BP: 128/76 Temp: 36.6 ??C (97.8 ??F) Oxygen Therapy: None (Room air) O2 Delivery Method: Nasal cannula Equality Coma Scale Score: 15 Som Scale Score: 18 Most Recent BM Date: 10/08/24 GI Symptoms: None Edema: Left lower extremity, Right lower extremity Allergies: reviewed, no known food allergies Medications: Current Scheduled Medications[2] Current Continuous Medications[3] Current PRN Medications[4] Meds were reviewed: Yes Labs: Lab Results Component Value Date GLUCOSE 99 10/07/2024 CALCIUM 9.2 10/07/2024 NA 141 10/07/2024 K 3.6 10/07/2024 CO2 25 10/07/2024 CL 108 (H) 10/07/2024 BUN 5 (L) 10/07/2024 CREATININE 0.95 10/07/2024 PHOS 3.2 10/04/2024 MG 2.1 10/04/2024 HGBA1C 4.8 06/27/2021 Lab Results Component Value Date ALT 27 10/07/2024 AST 52 (H) 10/07/2024 ALKPHOS 72 10/07/2024 BILITOT 0.7 10/07/2024 Anthropometrics: Height: 152.4 cm (5') Weight: 106 kg (234 lb 9.1 oz) BMI (Calculated): 45.81 Weight Evaluation: Extreme Obesity (BMI > 40) [place] Body Weight (kg): 45.4 Percent [place] Body Weight: 233 Adjusted Body Weight (kg): 60.6 Wt Readings from Last 3 Encounters: 10/02/24 106 kg (234 lb 9.1 oz) 01/05/22 112 kg (245 lb 13 oz) 12/11/21 111 kg (244 lb 11.4 oz) No recent weight hx available Estimated Needs: Metabolic Cart Study Results: Current Nutrition Intake: Diet Supplements: None Diet Order: Adult Diet Diet Texture: Regular Adult Sodium Restriction: 2,000 mg Na Percent Meals Eaten (%): 100% x 4 documented meal intakes Diet Experience and Nutrition History: Diet Education Provided: Will monitor Pertinent home medications: Albuterol, Vitamin D3, Iron, Lactulose, Synthroid, Melatonin, Protonix,Pyridoxine, Aldactone Hoahaoism needs: Nutrition Focused Physical Exam: Physical exam performed on (date): 10/08/24 Temples (muscles): None Clavicle (muscle): None Shoulder (muscle): None Interosseous (muscle): None Thigh (muscle): None Calf (muscle): None Orbital (fat): None Triceps (fat): None Assessment of Malnutrition: Malnutrition Identified: No Nutrition Problem: Decreased nutrient needs sodium related to cirrhosis as evidenced by potential for fluid retention/overload. Status of Nutrition Diagnosis: New Nutrition Interventions and Recommendations: - Continue regular, 2 gm sodium diet as tolerated Nutrition Monitoring and Goals: - Pt will tolerate >75% avg of meal intakes - Pt will maintain weight this admission Acuity Level: 1 Kierra Montejo, RD, LD [1] Past Surgical History: Procedure Laterality Date APPENDECTOMY N/A SECTION, LOW TRANSVERSE N/A CHOLECYSTECTOMY N/A [2] amitriptyline, 50 mg, Oral, Nightly carvedilol, 3.125 mg, Oral, BID with meals donepezil, 5 mg, Oral, Nightly DULoxetine, 30 mg, Oral, Daily enoxaparin, 40 mg, Subcutaneous, BID fluticasone, 2 spray, Each Nostril, Daily lactulose, 20 g, Oral, TID levothyroxine, 88 mcg, Oral, q AM OXcarbazepine, 150 mg, Oral, BID pantoprazole, 40 mg, Oral, Daily pyridoxine, 50 mg, Oral, Daily rifAXIMin, 550 mg, Oral, BID sodium chloride, 10 mL, Intravenous, q12h spironolactone, 50 mg, Oral, Daily thiamine, 100 mg, Oral, Daily [3] [4] PRN medications: acetaminophen, albuterol, benzocaine, glucose OR dextrose OR glucagon (human recombinant), melatonin, ondansetron ODT OR ondansetron OR ondansetron, Insert peripheral IV AND Saline lock IV AND sodium chloride AND sodium chloride * Care Plan - Rhonda Marybel Altman - 10/07/2024 11:37 PM EDT Problem: Adult Inpatient Plan of Care Goal: Plan of Care Review Outcome: Ongoing, Progressing Flowsheets Taken 10/07/2024 2337 Progress: improving Taken 10/07/2024 0115 Plan of Care Reviewed With: patient Goal: Patient-Specific Goal (Individualized) Outcome: Ongoing, Progressing Goal: Absence of Hospital-Acquired Illness or Injury Outcome: Ongoing, Progressing Goal: Optimal Comfort and Wellbeing Outcome: Ongoing, Progressing Goal: Readiness for Transition of Care Outcome: Ongoing, Progressing Problem: Fall Injury Risk Goal: Absence of Fall and Fall-Related Injury Outcome: Ongoing, Progressing Problem: Pain Acute Goal: Optimal Pain Control and Function Outcome: Ongoing, Progressing Problem: Liver Failure Goal: Optimal Coping with Liver Failure Outcome: Ongoing, Progressing Goal: Absence of Bleeding Outcome: Ongoing, Progressing Goal: Fluid and Electrolyte Balance Outcome: Ongoing, Progressing Goal: Minimize and Manage Gastrointestinal Symptoms Outcome: Ongoing, Progressing Goal: Blood Glucose Level Within Target Range Outcome: Ongoing, Progressing Goal: Hemodynamic Stability Outcome: Ongoing, Progressing Goal: Absence of Infection Signs and Symptoms Outcome: Ongoing, Progressing Goal: Optimize Neurologic Function Outcome: Ongoing, Progressing Goal: Improved Oral Intake Outcome: Ongoing, Progressing Goal: Optimal Pain Control, Comfort and Function Outcome: Ongoing, Progressing Goal: Effective Oxygenation and Ventilation Outcome: Ongoing, Progressing Problem: Self-Care Deficit Goal: Improved Ability to Complete Activities of Daily Living Outcome: Ongoing, Progressing * Progress Notes - Jay Mcdonald - 10/07/2024 2:54 PM EDT Physical Therapy Treatment Patient Name: Andrew Oconnor Today's Date: 10/07/2024 PT Discharge Recommendations: Subacute rehab Equipment Recommended: Defer to facility Subjective Patient reported doing better overall. Participants in Care Family/Caregiver Present: No Presentation Oxygen Therapy: None (Room air) Lines and Tubes: Intravenous access Pre-Session: Supine, Head of bed elevated, Lines intact Post-Session: Sitting in chair, RN notified, Lines intact, Chair alarm, Call light in reach Post-Session Comments: Patient positioned for comfort and left with all needs within reach Precautions Medical Precautions: Fall precautions Objective Pain Patient reported leg and feet pain but did not rate when asked, positioned for comfort. Delirium Screening Moore Agitation Sedation Scale (RASS): Alert and calm Confusion Assessment Method-ICU (CAM-ICU/PCAM-ICU) Feature 3: Altered Level of Consciousness: Negative Bed Mobility Bed Mobility Exam: Scooting/Bridging Level of Grayson: Contact guard Physical/Nonphysical Assist: Verbal Cues Bed Mobility Exam: Supine to Sit Level of [place]: Contact guard Physical/Nonphysical Assist: Verbal Cues Transfers Transfer Exam: Sit to stand Level of Gr[place]: Contact guard Physical/Nonphysical Assist: Verbal Cues Assistive Device: Walker, rolling Transfer Exam: Stand to Sit Level of Grayson: Contact guard Physical/Nonphysical Assist: Verbal Cues Assistive Device: Walker, rolling Toilet Transfer Level of Grayson: Contact guard Physical/Nonphysical Assist: Verbal Cues Type of Transfer: Ambulation, To toilet Assistive Device: Walker, rolling Ambulation Device: Rolling walker Assistance: Contact guard assist Distance : 36 ft. Ambulation Comments: Patient demonstrates decreased jose luis and gait speed with increased forward flexed posture and wide base of support Therapeutic Activity ( 23 minutes) Patient participated in static and dynamic balance activities with physical therapist to promote further out of bed activities and increase functional independence to reduce caregiver burden. Patientrequired assist for toilet transfer and to complete hygiene at sink. Standardized Assessments Standardized Assessments Standardized Assessments: AMPA 6-Clicks Mobility Assessment [facility] 6-Clicks Mobility Assessment Difficulty patient has turning over in bed (including adjusting bedclothes, sheets, and blankets)?:A little Difficulty patient has sitting down on and standing up from a chair with arms (wheelchair, bedside commode, etc.)?: A little Difficulty patient has moving from lying on back to sitting on the side of the bed?: A little How much help does the patient need moving to and from a bed to a chair (including a wheelchair)?: A little How much help does the patient need to walk in hospital room?: A little How much help does the patient need climbing 3-5 steps with a railing?: A lot [facility] 6-Clicks Mobility Assessment Total : 17 Assessment Patient demonstrates improving mobility but continues to require increased cues and assist for positioning to increase efficiency of transfers and to maintain balance during transitional movements. Patient reported need to use bathroom and assisted to commode as above. Patient continues to demonstrate decreased functional mobility and would benefit from continued physical therapy to address needsand increase functional independence. PT Recommendations Discharge Destination: Subacute rehab Discharge Equipment: Defer to facility Plan Progress mobility as able. PT Goals PT GOAL DETAILS Goal Established Date Time Frame Goal Status PT Goal 1: Pt will demonstrate supine<>sit transfers with SBA and using LRAD 10/03/24 2 weeks PT Goal 2: Pt will demonstrate sit<>stand transfers with SBA and using LRAD. 10/03/24 2 weeks PT Goal 3: Pt will ambulate 100' or more with SBA and using LRAD. 10/03/24 2 weeks PT Goal 4: Pt will demonstrate independence with all home instructions and precautions by providingteach back to PT 10/03/24 2 weeks Written by Jay Mcdonald on 10/07/24 at 2:54 PM. * Progress Notes - Gucci Martines - 10/07/2024 1:40 PM EDT Images from the original note were not included. [facility] Medicine Progress Note Subjective Length of stay: 7 days Brief Patient Summary: Andrew Oconnor is a 50 y/o F with Hx of BOWDEN Cirrhosis with history of HE, mild cognitive delay, childhood ALL, meningioma, migraines, hypothyroidism, HTN, PUD, Depression/Anxiety, FERNANDEZ who [facility] with altered mental status secondary to hepatic encephalopathy. Currently on lactulose 20 TID, rifaximin, coreg. Subjective NAEON. Enjoying the blueberry pancakes this morning. Doing better, conversational, alert, joking. Complaining of left arm bruise. At goal of 3-5 BM daily. Awaiting placement. No other concerns. Review of Systems Review of Systems All other systems reviewed and are negative. Objective Objective Last Recorded Vitals Blood pressure 95/57, pulse 73, temperature 36.4 ??C (97.6 ??F), temperature source Oral, resp. rate 18, height 1.524 m (5'), weight 106 kg (234 lb 9.1 oz), SpO2 95%. Physical Exam Constitutional: Appearance: She is not ill-appearing. HENT: Head: Normocephalic and atraumatic. Mouth/Throat: Mouth: Mucous membranes are moist. Cardiovascular: Rate and Rhythm: Normal rate. Pulmonary: Effort: Pulmonary effort is normal. No respiratory distress. Abdominal: General: Abdomen is flat. Palpations: Abdomen is soft. Tenderness: There is no abdominal tenderness. Musculoskeletal: Right lower leg: Edema present. Left lower leg: Edema present. Skin: General: Skin is warm. Neurological: Mental Status: She is alert and oriented to person, place, and time. Relevant Results Labs in last 18 hours CBC WBC ?? Hb ?? Plt ?? Hct ?? ANC ?? INR ??, PTT ??, Anti-Xa ?? BMP Na 141 Cl 108 (H) BUN 5 (L) Glu 99 K 3.6 Co2 25 Cr 0.95 Ca 9.2 iCa ?? Mg ??, Phos ?? Lactate ?? LFT AST 52 (H) AlkPhos 72 T Prot 5.9 (L) ALK 27 Bili 0.7 Alb ?? D.Bili ?? Assessment/Plan Assessment & Plan Principal Problem: HE (hepatic encephalopathy) (CMS/HCC) Active Problems: Acute encephalopathy KYLIE (acute kidney injury) (CMS/HCC) Hypoglycemia Andrew Oconnor is a 50 y/o F with Hx of BOWDEN Cirrhosis with history of HE, mild cognitive delay, childhood ALL, meningioma, migraines, hypothyroidism, HTN, PUD, Depression/Anxiety, FERNANDEZ who [facility] ([place]) with altered mental status secondary to hepaticencephalopathy. Today: -Monitor for confusion after restarting Elavil - Subacute recs, pending placement - Continue current treatment Acute: #Hepatic Encephalopathy #MASH Cirrhosis #Portal Hypertension -Patient was noted to be altered and not acting like herself on 09/30/24. - Infectious, intracranial, and toxic workup was negative in the ED. In a known cirrhotic with prior HE and unclear compliance with Lactulose therapy, highly likely to be altered due to HE. Ammonia 149. Patient improving medically. Plan: - Continue Lactulose 20g TID, titrating to 3-5 bowel movements daily - Continue Rifaximin 550mg BID - Continue PPI - Continue Coreg, monitor HR - Continue alcides #Acute Kidney Injury, resolved - Likely due to poor intake, patient has high specific gravity on UA - Baseline creatinine ~ 0.8-1.0. Current Creatinine 1.17, improved from 1.28. - Patient doing well with PO intake Plan: - Encourage PO intake. - Monitor I&Os #Hypoglycemia, improving - FSBG 65 on arrival, likely due to poor intake in setting of altered mental status and dehydration Plan: - Monitor - Encourage PO intake #Sinusitis - Noted on CT imaging - Mildly symptomatic Plan - Supportive care Chronic Conditions #Meningioma - stable on CTH, followed by AMAURY in past #HTN: continue Carvedilol 3.125mg BID; resume Amlodipine 5 mg daily if patient has SBP >160 #Hypothyroidism - continue Levothyroxine 88mcg #VENUS - repeat labs, consider resuming iron PO #PUD: Continue PPI daily #HFpEF - EF 60 to 80% in 2020, grade II diastolic function noted, not in exacerbation, no chest pain noted, resume Coreg and hold Spironolactone #Depression/Anxiety/Possible Conversion Disorder/Bipolar - continue Oxcarbazepine 150 mg BID, Duloxetine 60 mg daily, Amitriptyline 50 mg nightly) #Headaches/Migraines - chronic, APAP PRN, encourage CPAP compliance #Seasonal Allergies - hold Cetirizine 10 mg daily, may exacerbate confusion #Vitamin D Deficiency - Vitamin D 1-25 normal #FERNANDEZ - CPAP when appropriate #Morbid Obesity - Weight 112 kg, complicates all aspects of care Fluids: PO DVT Ppx: PLOV Diet: Regular diet Code status: Full Code Discharge Planning: Anticipated discharge to: Rehab facility (specify) Anticipated discharge needs: None Family Contact: Judi Owens Follow-up: PCP Gastroenterology No future appointments. Electronically Signed by: Gucci Martines - 10/05/2024 - 12:06 PM Cosigned by Evette Goodrich MD at 10/07/2024 4:51 PM EDT Associated attestation - Evette Goodrich MD - 10/07/2024 4:51 PM EDT I saw and evaluated the patient with the medical/CAR BARN LABORER/PA student. I discussed the case with the medical/CAR BARN LABORER/PA student and agree with the findings and plan as documented. I personally performed the Examand Medical Decision Making. * Care Plan - Marybel Ellis - 10/07/2024 1:16 AM EDT Problem: Adult Inpatient Plan of Care Goal: Plan of Care Review Outcome: Ongoing, Progressing Flowsheets (Taken 10/07/2024 0115) Progress: improving Plan of Care Reviewed With: patient Goal: Patient-Specific Goal (Individualized) Outcome: Ongoing, Progressing Goal: Absence of Hospital-Acquired Illness or Injury Outcome: Ongoing, Progressing Goal: Optimal Comfort and Wellbeing Outcome: Ongoing, Progressing Goal: Readiness for Transition of Care Outcome: Ongoing, Progressing Problem: Fall Injury Risk Goal: Absence of Fall and Fall-Related Injury Outcome: Ongoing, Progressing Problem: Pain Acute Goal: Optimal Pain Control and Function Outcome: Ongoing, Progressing Problem: Liver Failure Goal: Optimal Coping with Liver Failure Outcome: Ongoing, Progressing Goal: Absence of Bleeding Outcome: Ongoing, Progressing Goal: Fluid and Electrolyte Balance Outcome: Ongoing, Progressing Goal: Minimize and Manage Gastrointestinal Symptoms Outcome: Ongoing, Progressing Goal: Blood Glucose Level Within Target Range Outcome: Ongoing, Progressing Goal: Hemodynamic Stability Outcome: Ongoing, Progressing Goal: Absence of Infection Signs and Symptoms Outcome: Ongoing, Progressing Goal: Optimize Neurologic Function Outcome: Ongoing, Progressing Goal: Improved Oral Intake Outcome: Ongoing, Progressing Goal: Optimal Pain Control, Comfort and Function Outcome: Ongoing, Progressing Goal: Effective Oxygenation and Ventilation Outcome: Ongoing, Progressing Problem: Self-Care Deficit Goal: Improved Ability to Complete Activities of Daily Living Outcome: Ongoing, Progressing * Progress Notes - Gucci Martines - 10/06/2024 1:15 PM EDT Images from the original note were not included. Hospital Medicine Progress Note Subjective Length of stay: 6 days Brief Patient Summary: Andrew Oconnor is a 50 y/o F with Hx of BOWDEN Cirrhosis with history of HE, mild cognitive delay, childhood ALL, meningioma, migraines, hypothyroidism, HTN, PUD, Depression/Anxiety, FERNANDEZ who presents to ED from [facility] with altered mental status secondary to hepatic encephalopathy. Currently on lactulose 20 TID, rifaximin, coreg. Subjective NAEON. Doing better, conversational, alert, joking. At goal of 3-5 BM daily. Awaiting subacute placement. No other concerns. Review of Systems Review of Systems All other systems reviewed and are negative. Objective Objective Last Recorded Vitals Blood pressure 128/81, pulse 81, temperature 36.7 ??C (98.1 ??F), resp. rate 18, height 1.524 m (5'), weight 106 kg (234 lb 9.1 oz), SpO2 (!) 89%. Physical Exam Constitutional: Appearance: She is not ill-appearing. HENT: Head: Normocephalic and atraumatic. Mouth/Throat: Mouth: Mucous membranes are moist. Cardiovascular: Rate and Rhythm: Normal rate. Pulmonary: Effort: Pulmonary effort is normal. No respiratory distress. Abdominal: General: Abdomen is flat. Palpations: Abdomen is soft. Tenderness: There is no abdominal tenderness. Musculoskeletal: Right lower leg: Edema present. Left lower leg: Edema present. Skin: General: Skin is warm. Neurological: Mental Status: She is alert and oriented to person, place, and time. Relevant Results Labs in last 18 hours CBC WBC ?? Hb ?? Plt ?? Hct ?? ANC ?? INR ??, PTT ??, Anti-Xa ?? BMP Na ?? Cl ?? BUN ?? Glu ?? K ?? Co2 ?? Cr ?? Ca ?? iCa ?? Mg ??, Phos ?? Lactate ?? LFT AST ?? AlkPhos ?? T Prot ?? ALK ?? Bili ?? Alb ?? D.Bili ?? Assessment/Plan Assessment & Plan Principal Problem: HE (hepatic encephalopathy) (CMS/HCC) Active Problems: Acute encephalopathy KYLIE (acute kidney injury) (CMS/HCC) Hypoglycemia Andrew Oconnor is a 50 y/o F with Hx of BOWDEN Cirrhosis with history of HE, mild cognitive delay, childhood ALL, meningioma, migraines, hypothyroidism, HTN, PUD, Depression/Anxiety, FERNANDEZ who presents to ED from [facility] ([place]) with altered mental status secondary to hepaticencephalopathy. Today: - continue lactulose, rifaximin, coreg - resume spironolactone - resume home dose of duloxetine - resume amitriptyline Acute: #Hepatic Encephalopathy #MASH Cirrhosis #Portal Hypertension -Patient was noted to be altered and not acting like herself on 09/30/24. - Infectious, intracranial, and toxic workup was negative in the ED. In a known cirrhotic with prior HE and unclear compliance with Lactulose therapy, highly likely to be altered due to HE. Ammonia 149. Patient improving medically. Plan: - Continue Lactulose 20g TID, titrating to 3-5 bowel movements daily - Continue Rifaximin 550mg BID - Continue PPI - Continue Coreg, monitor HR - Restart alcides #Acute Kidney Injury, resolved - Likely due to poor intake, patient has high specific gravity on UA - Baseline creatinine ~ 0.8-1.0. Current Creatinine 1.17, improved from 1.28. - Patient doing well with PO intake Plan: - Encourage PO intake. - Monitor I&Os #Hypoglycemia, improving - FSBG 65 on arrival, likely due to poor intake in setting of altered mental status and dehydration Plan: - Monitor - Encourage PO intake #Sinusitis - Noted on CT imaging - Mildly symptomatic Plan - Supportive care Chronic Conditions #Meningioma - stable on CTH, followed by [facility] in past #HTN: continue Carvedilol 3.125mg BID with hold parameters; resume Amlodipine 5 mg daily if patienthas SBP >160 #Hypothyroidism - continue Levothyroxine 88mcg #VENUS - repeat labs, consider resuming iron PO #PUD: Continue PPI daily #HFpEF - EF 60 to 80% in 2020, grade II diastolic function noted, not in exacerbation, no chest pain noted, resume Coreg and hold Spironolactone #Depression/Anxiety/Possible Conversion Disorder/Bipolar - will hold home medications pending medication reconciliation (Oxcarbazepine 150 mg BID, Duloxetine 60 mg daily, Amitriptyline 50 mg nightly) #Headaches/Migraines - chronic, APAP PRN, encourage CPAP compliance #Seasonal Allergies - hold Cetirizine 10 mg daily, may exacerbate confusion #Vitamin D Deficiency - Vitamin D 1-25 normal #FERNANDEZ - CPAP when appropriate #Morbid Obesity - Weight 112 kg, complicates all aspects of care Fluids: PO DVT Ppx: PLOV Diet: Regular diet Code status: Full Code Discharge Planning: Anticipated discharge to: Rehab facility (specify) Anticipated discharge needs: None Family Contact: Judi Owens Follow-up: PCP Gastroenterology No future appointments. Electronically Signed by: Gucci Martines - 10/05/2024 - 12:06 PM Cosigned by Momo Akhtar MD at 10/06/2024 6:54 PM EDT Associated attestation - Momo Akhtar MD - 10/06/2024 6:54 PM EDT I saw and evaluated the patient with the medical/CAR BARN LABORER/PA student. I discussed the case with the medical/CAR BARN LABORER/PA student and agree with the findings and plan as documented. I personally performed the Examand Medical Decision Making. HE resolved and working on safe dispo. Will follow up with counseling case manager. * Progress Notes - Judi Colmenares - 10/06/2024 10:38 AM EDT Case Management Adult Progress Note Andrew Oconnor 54 y.o. female CSN: [id number] Admission: 09/30/2024 2:02 PM Primary Problem: HE (hepatic encephalopathy) (CMS/HCC) Anticipated Discharge Date: 10/09 Has Discharge Plans Changed? No Medicare Second Notice: Housing Circumstances: Not Applicable Housing Circumstances Action Taken: Other N/A Medically Ready for Discharge: Ready Now Additional Comments SW spoke with MDs this date who indicate that the pt is medically stable for DC pending rehab placement. Pt's state guardian has expressed a preference for [facility] in [place] proximity to home [place]. SW called and spoke with pricing coordinator Zahra this date, who states shehas reviewed the pt, and will present to team at the facility. SW verbalized understanding. No further SW concerns identified at this time. SW will continue to remain available and will follow up with DC planning and needs as appropriate. Judi Colmenares * Care Plan - Gianfranco Fierro RN - 10/05/2024 10:34 PM EDT Problem: Adult Inpatient Plan of Care Goal: Plan of Care Review Outcome: Ongoing, Progressing Goal: Patient-Specific Goal (Individualized) Outcome: Ongoing, Progressing Goal: Absence of Hospital-Acquired Illness or Injury Outcome: Ongoing, Progressing Goal: Optimal Comfort and Wellbeing Outcome: Ongoing, Progressing Goal: Readiness for Transition of Care Outcome: Ongoing, Progressing Problem: Fall Injury Risk Goal: Absence of Fall and Fall-Related Injury Outcome: Ongoing, Progressing Problem: Pain Acute Goal: Optimal Pain Control and Function Outcome: Ongoing, Progressing Problem: Liver Failure Goal: Optimal Coping with Liver Failure Outcome: Ongoing, Progressing Goal: Absence of Bleeding Outcome: Ongoing, Progressing Goal: Fluid and Electrolyte Balance Outcome: Ongoing, Progressing Goal: Minimize and Manage Gastrointestinal Symptoms Outcome: Ongoing, Progressing Goal: Blood Glucose Level Within Target Range Outcome: Ongoing, Progressing Goal: Hemodynamic Stability Outcome: Ongoing, Progressing Goal: Absence of Infection Signs and Symptoms Outcome: Ongoing, Progressing Goal: Optimize Neurologic Function Outcome: Ongoing, Progressing Goal: Improved Oral Intake Outcome: Ongoing, Progressing Goal: Optimal Pain Control, Comfort and Function Outcome: Ongoing, Progressing Goal: Effective Oxygenation and Ventilation Outcome: Ongoing, Progressing Problem: Self-Care Deficit Goal: Improved Ability to Complete Activities of Daily Living Outcome: Ongoing, Progressing * Progress Notes - Vincent Gonzalez - 10/05/2024 1:58 PM EDT Case Management Adult Progress Note Andrew Oconnor 54 y.o. female CSN: [id number] Admission: 09/30/2024 2:02 PM Primary Problem: HE (hepatic encephalopathy) (CMS/HCC) Anticipated Discharge Date: TBD Pt was admitted to the hospital due to hepatic encephalopathy. Plan of care reviewed with pt's chelyteam; and per MD, pt is medically ready for discharge Pending Placement. State Guardian reported that [facility] would be the top choice due to being near to her personal fci, or any facility that was in [place]. Care Port shows [facility] is willing to accept, waiting for response from [facility] SW will follow up with [facility]. Patient lives at [facility], their phone number is . Pt state guardian reported that pt will need uber/wheelchair van for transportation upon discharge, Pt meets 300%FPG. SW will continue to follow-up with pt's MD and care team on their progress and discharge plan. Vincent Gonzalez, BENCH BORING MACHINE OPERATOR, COMPOSITION ROOFER * Progress Notes - Gucci Martines - 10/05/2024 12:06 PM EDT Images from the original note were not included. Hospital Medicine Progress Note Subjective Length of stay: 5 days Brief Patient Summary: Andrew Oconnor is a 50 y/o F with Hx of BOWDEN Cirrhosis with history of HE, mild cognitive delay, childhood ALL, meningioma, migraines, hypothyroidism, HTN, PUD, Depression/Anxiety, FERNANDEZ who [facility] with altered mental status secondary to hepatic encephalopathy. Currently on lactulose 20 TID, rifaximin, coreg. Subjective NAEON. Doing better, conversational, alert. Abdominal pain improved. At goal of 3-5 BM daily. Awaiting subacute placement, likely this week. No other concerns. Review of Systems Review of Systems All other systems reviewed and are negative. Objective Objective Last Recorded Vitals Blood pressure 131/54, pulse 73, temperature 36.6 ??C (97.9 ??F), resp. rate 15, height 1.524 m (5'), weight 106 kg (234 lb 9.1 oz), SpO2 96%. Physical Exam Constitutional: Appearance: She is not ill-appearing. HENT: Head: Normocephalic and atraumatic. Mouth/Throat: Mouth: Mucous membranes are moist. Cardiovascular: Rate and Rhythm: Normal rate. Pulmonary: Effort: Pulmonary effort is normal. No respiratory distress. Abdominal: General: Abdomen is flat. Palpations: Abdomen is soft. Tenderness: There is no abdominal tenderness. Musculoskeletal: Right lower leg: Edema present. Left lower leg: Edema present. Skin: General: Skin is warm. Neurological: Mental Status: She is alert and oriented to person, place, and time. Relevant Results Labs in last 18 hours CBC WBC ?? Hb ?? Plt ?? Hct ?? ANC ?? INR ??, PTT ??, Anti-Xa ?? BMP Na ?? Cl ?? BUN ?? Glu ?? K ?? Co2 ?? Cr ?? Ca ?? iCa ?? Mg ??, Phos ?? Lactate ?? LFT AST ?? AlkPhos ?? T Prot ?? ALK ?? Bili ?? Alb ?? D.Bili ?? Assessment/Plan Assessment & Plan Principal Problem: HE (hepatic encephalopathy) (CMS/HCC) Active Problems: Acute encephalopathy KYLIE (acute kidney injury) (CMS/HCC) Hypoglycemia Andrew Oconnor is a 50 y/o F with Hx of BOWDEN Cirrhosis with history of HE, mild cognitive delay, childhood ALL, meningioma, migraines, hypothyroidism, HTN, PUD, Depression/Anxiety, FERNANDEZ who [facility] with altered mental status secondary to hepatic encephalopathy. Today: - continue lactulose, rifaximin, coreg Acute: #Hepatic Encephalopathy #MASH Cirrhosis #Portal Hypertension -Patient was noted to be altered and not acting like herself on 09/30/24. - Infectious, intracranial, and toxic workup was negative in the ED. In a known cirrhotic with prior HE and unclear compliance with Lactulose therapy, highly likely to be altered due to HE. Ammonia 149. Patient improving medically. Plan: - Continue Lactulose 20g TID, titrating to 3-5 bowel movements daily - Continue Rifaximin 550mg BID - Continue PPI - Continue Coreg, monitor HR #Acute Kidney Injury, resolved - Likely due to poor intake, patient has high specific gravity on UA - Baseline creatinine ~ 0.8-1.0. Current Creatinine 1.17, improved from 1.28. - Patient doing well with PO intake Plan: - Encourage PO intake. - Monitor I&Os - Continue to hold alcides #Hypoglycemia, improving - FSBG 65 on arrival, likely due to poor intake in setting of altered mental status and dehydration Plan: - Monitor - Encourage PO intake #Sinusitis - Noted on CT imaging - Mildly symptomatic Plan - Supportive care Chronic Conditions #Meningioma - stable on CTH, followed by [facility] in past #HTN: continue Carvedilol 3.125mg BID with hold parameters; resume Amlodipine 5 mg daily if patienthas SBP >160 #Hypothyroidism - continue Levothyroxine 88mcg #VENUS - repeat labs, consider resuming iron PO #PUD: Continue PPI daily #HFpEF - EF 60 to 80% in 2020, grade II diastolic function noted, not in exacerbation, no chest pain noted, resume Coreg and hold Spironolactone #Depression/Anxiety/Possible Conversion Disorder/Bipolar - will hold home medications pending medication reconciliation (Oxcarbazepine 150 mg BID, Duloxetine 60 mg daily, Amitriptyline 50 mg nightly) #Headaches/Migraines - chronic, APAP PRN, encourage CPAP compliance #Seasonal Allergies - hold Cetirizine 10 mg daily, may exacerbate confusion #Vitamin D Deficiency - Vitamin D 1-25 normal #FERNANDEZ - CPAP when appropriate #Morbid Obesity - Weight 112 kg, complicates all aspects of care Fluids: PO DVT Ppx: PLOV Diet: Regular diet Code status: Full Code Discharge Planning: Anticipated discharge to: Rehab facility (specify) Anticipated discharge needs: None Family Contact: Judi Owens Follow-up: PCP Gastroenterology No future appointments. Electronically Signed by: Gucci Martines - 10/05/2024 - 12:06 PM Cosigned by Momo Akhtar MD at 10/05/2024 6:34 PM EDT Associated attestation - Momo Akhtar MD - 10/05/2024 6:34 PM EDT I saw and evaluated the patient with the medical/CAR BARN LABORER/PA student. I discussed the case with the medical/CAR BARN LABORER/PA student and agree with the findings and plan as documented. I personally performed the Examand Medical Decision Making. Patient doing well but continues to feel a little weak. Working on safe dispo, continuing lactulose/ rifaximin. * Care Plan - Gianfranco Fierro RN - 10/04/2024 10:45 PM EDT Problem: Adult Inpatient Plan of Care Goal: Plan of Care Review Outcome: Ongoing, Progressing Goal: Patient-Specific Goal (Individualized) Outcome: Ongoing, Progressing Goal: Absence of Hospital-Acquired Illness or Injury Outcome: Ongoing, Progressing Goal: Optimal Comfort and Wellbeing Outcome: Ongoing, Progressing Goal: Readiness for Transition of Care Outcome: Ongoing, Progressing Problem: Fall Injury Risk Goal: Absence of Fall and Fall-Related Injury Outcome: Ongoing, Progressing Problem: Pain Acute Goal: Optimal Pain Control and Function Outcome: Ongoing, Progressing Problem: Liver Failure Goal: Optimal Coping with Liver Failure Outcome: Ongoing, Progressing Goal: Absence of Bleeding Outcome: Ongoing, Progressing Goal: Fluid and Electrolyte Balance Outcome: Ongoing, Progressing Goal: Minimize and Manage Gastrointestinal Symptoms Outcome: Ongoing, Progressing Goal: Blood Glucose Level Within Target Range Outcome: Ongoing, Progressing Goal: Hemodynamic Stability Outcome: Ongoing, Progressing Goal: Absence of Infection Signs and Symptoms Outcome: Ongoing, Progressing Goal: Optimize Neurologic Function Outcome: Ongoing, Progressing Goal: Improved Oral Intake Outcome: Ongoing, Progressing Goal: Optimal Pain Control, Comfort and Function Outcome: Ongoing, Progressing Goal: Effective Oxygenation and Ventilation Outcome: Ongoing, Progressing Problem: Self-Care Deficit Goal: Improved Ability to Complete Activities of Daily Living Outcome: Ongoing, Progressing * Progress Notes - Momo Akhtar MD - 10/04/2024 6:12 PM EDT Subjective Patient doing overall well but still endorses some intermittent mild confusion. Tolerating lactulose. Review of Systems Constitutional: Negative for fever. Objective Vitals Temp: [36.7 ??C (98 ??F)-36.9 ??C (98.4 ??F)] 36.7 ??C (98 ??F) Heart Rate: [73-124] 89 Resp: [16-18] 16 BP: (90-146)/(53-70) 90/53 Physical Exam Constitutional: General: She is not in acute distress. Appearance: She is not toxic-appearing or diaphoretic. Pulmonary: Effort: Pulmonary effort is normal. Skin: General: Skin is warm and dry. Neurological: Mental Status: She is alert. Psychiatric: Mood and Affect: Mood normal. Behavior: Behavior normal. Assessment & Plan HE (hepatic encephalopathy) (CMS/HCC) Acute encephalopathy KYLIE (acute kidney injury) (CMS/HCC) Hypoglycemia 50 y/o F with Hx of BOWDEN Cirrhosis with history of HE, mild cognitive delay, childhood ALL, meningioma, migraines, hypothyroidism, HTN, PUD, Depression/Anxiety, FERNANDEZ who presents to ED from [facility] with altered mental status secondary to hepatic encephalopathy. Today: - reviewed PT/OT recs for subacute - reviewed healthcare social worker note 10/03 documenting communication with guardian regarding concerns regarding facility cleanliness - referred to subacute 10/03 - continue lactulose and rifaximin Acute # Acute hepatic encephalopathy Improving with lactulose and continuing home rifaximin - continue lactulose, titrate to 3-5 Bms / day # Generalized Weakness from acute illness Pt/ot with recs for subacute. Referrals sent 10/03. # Concern for home facility Concern for rodent infestation. Report made to guardian and OIG 10/03. Chronic # MASLD cirrhosis decompensated by portal hypertension and chronic hepatic encephalopathy Continuing home lactulose / rifaximin and coreg. # Meningioma - stable on CTH, followed by [facility] in past # HTN: continue Carvedilol 3.125mg BID # Hypothyroidism - continue Levothyroxine 88mcg # Iron deficiency anemia - on PO iron as outpatient # PUD: Continue PPI daily # chronic HFpEF - EF 60 to 80% in 2020, grade II diastolic function noted, not in exacerbation, no chest pain noted, resume Coreg and hold Spironolactone # Depression/Anxiety/Possible Conversion Disorder/Bipolar - on oxcarbazepine, cymbalta, donepezil # Headaches/Migraines - chronic, APAP PRN, encourage CPAP compliance #Seasonal Allergies - hold Cetirizine 10 mg daily # Vitamin D Deficiency - Vitamin D 1-25 normal # FERNANDEZ - CPAP when appropriate # Morbid Obesity - BMI 45 complicates all aspects of care Resolved # KYLIE - prerenal, improved with IVF Diet: regular Prophylaxis: lovenox Code: full Medically Ready for Discharge: * Progress Notes - Vincent Gonzalez - 10/03/2024 2:56 PM EDT Case Management Adult Progress Note Andrew Oconnor 54 y.o. female [facility]: [id number] Admission: 09/30/2024 2:02 PM Primary Problem: HE (hepatic encephalopathy) (CMS/HCC) Anticipated Discharge Date: TBD Pt informed SW at bedside that at her personal fci ([facility]) has Cockroaches and Mice within her room. SW followed up with pt Judi jean baptiste. State Yanes informed SW that she would follow up with the facility and do a investigate next week of the facility. State Yanes informed SW that OIG and Reid reported would need to be made, SW followed up with his Rd Lab Technician, and was provided the numbers for both and was informed that he was able to call [facility]. SW informed State Yanes, that PT/OT is recommending Subacute Rehab. State Yanes was agreeablefor patient to attend Subacute Rehab. State Yanes reported that [facility] would be thetop choice due to being near to her personal fci, or any facility that was in [place]. HONG sent referrals for subacute rehab on 10/03/2024. HONG filled a report with DENISE and Reid via Phone. SW will continue to follow-up with pt's MD and care team on their progress and discharge plan. Vincent Gonzalez, BENCH BORING MACHINE OPERATOR, COMPOSITION ROOFER * Progress Notes - Gucci Martines - 10/03/2024 1:10 PM EDT Images from the original note were not included. Hospital Medicine Progress Note Subjective Length of stay: 3 days Brief Patient Summary: Andrew Oconnor is a 50 y/o F with Hx of BOWDEN Cirrhosis with history of HE, mild cognitive delay, childhood ALL, meningioma, migraines, hypothyroidism, HTN, PUD, Depression/Anxiety, FERNANDEZ who [facility] with altered mental status secondary to hepatic encephalopathy. Currently on lactulose 20 TID, rifaximin, coreg. Subjective Stroke alert and ACS workup was done overnight due to acute mental status change and slurred speech. Head imaging and ACS workup was negative. This morning, patient was doing well sitting in her chair out of bed. She seems to be a little better but continues to have slowed speech and intermittent confusion. Had a bowel movement this morning and a few yesterday. No acute changes or concerns. She does express that she does not want to return to her current facility and would rather go somewhere else when she feels better. Review of Systems Review of Systems All other systems reviewed and are negative. Objective Objective Last Recorded Vitals Blood pressure 124/71, pulse 80, temperature 36.7 ??C (98.1 ??F), temperature source Oral, resp. rate 23, height 1.524 m (5'), weight 106 kg (234 lb 9.1 oz), SpO2 92%. Physical Exam Constitutional: General: She is not in acute distress. HENT: Right Ear: External ear normal. Left Ear: External ear normal. Nose: Nose normal. Mouth/Throat: Mouth: Mucous membranes are moist. Cardiovascular: Rate and Rhythm: Normal rate and regular rhythm. Heart sounds: Normal heart sounds. Pulmonary: Effort: Pulmonary effort is normal. No respiratory distress. Abdominal: General: Abdomen is flat. Palpations: Abdomen is soft. Tenderness: There is abdominal tenderness (RUQ). Musculoskeletal: General: Tenderness (left calf tender) present. Right lower leg: Edema present. Left lower leg: Edema present. Skin: General: Skin is warm. Neurological: Mental Status: She is oriented to person, place, and time. Relevant Results Labs in last 18 hours CBC WBC 3.59 (L) Hb 12.1 Plt 91 (L) Hct 34.7 ANC 1.76 INR ??, PTT ??, Anti-Xa ?? BMP Na 139 Cl 108 (H) BUN 7 Glu 96 K 4.1 Co2 24 Cr 1.13 (H) Ca 9.3 iCa ?? Mg 2.0, Phos 2.8 Lactate 0.7 LFT AST 50 (H) AlkPhos 73 T Prot 6.4 ALK 27 Bili 1.1 Alb ?? D.Bili ?? Assessment/Plan Assessment & Plan Principal Problem: HE (hepatic encephalopathy) ([facility]) Active Problems: Acute encephalopathy KYLIE (acute kidney injury) ([facility]) Hypoglycemia Andrew Oconnor is a 50 y/o F with Hx of BOWDEN Cirrhosis with history of HE, mild cognitive delay, childhood ALL, meningioma, migraines, hypothyroidism, HTN, PUD, Depression/Anxiety, FERNANDEZ who [facility] with altered mental status secondary to hepatic encephalopathy. #Hepatic Encephalopathy #MASH Cirrhosis #Portal Hypertension -Patient was noted to be altered and not acting like herself on 09/30/24. - Infectious, intracranial, and toxic workup was negative in the ED. In a known cirrhotic with prior HE and unclear compliance with Lactulose therapy, highly likely to be altered due to HE. Ammonia 149. -No known GI bleeding. -Patient is still exquisitely tender on palpation of RUQ. Tenderness is unexpected in MASH cirrhosis with a negative infectious workup and no evidence of hepatic thrombosis. No pocket of fluid was visualized on ultrasound, lowering the probability of but not entirely ruling out SBP. Differential also includes constipation, which was visualized on CT. -Patient is likely dehydrated intravascularly due to poor PO intake secondary to acute mental status change. Plan: - Continue Lactulose 20g TID, titrating to 3-5 bowel movements daily - Continue Rifaximin 550mg BID - Continue PPI - Continue Coreg, monitor HR - Dysphagia screen - Monitor closely for signs of worsening mentation, infection, and renal function #Acute Kidney Injury, resolving - Likely due to poor intake, patient has high specific gravity on UA - Baseline creatinine ~ 0.8-1.0. Current Creatinine 1.17, improved from 1.28. - Patient doing well with PO intake Plan: - Encourage PO intake. - CMP daily - Monitor I&Os - Continue to hold alcides #Hypoglycemia, improving - FSBG 65 on arrival, likely due to poor intake in setting of altered mental status and dehydration Plan: - Monitor - Encourage PO intake #Sinusitis - Noted on CT imaging - Mildly symptomatic Plan - Supportive care Chronic Conditions #Meningioma - stable on CTH, followed by [facility] in past #HTN: continue Carvedilol 3.125mg BID with hold parameters; resume Amlodipine 5 mg daily if patienthas SBP >160 #Hypothyroidism - continue Levothyroxine 88mcg #VENUS - repeat labs, consider resuming iron PO #PUD: Continue PPI daily #HFpEF - EF 60 to 80% in 2020, grade II diastolic function noted, not in exacerbation, no chest pain noted, resume Coreg and hold Spironolactone #Depression/Anxiety/Possible Conversion Disorder/Bipolar - will hold home medications pending medication reconciliation (Oxcarbazepine 150 mg BID, Duloxetine 60 mg daily, Amitriptyline 50 mg nightly) #Headaches/Migraines - chronic, APAP PRN, encourage CPAP compliance #Seasonal Allergies - hold Cetirizine 10 mg daily, may exacerbate confusion #Vitamin D Deficiency - Vitamin D 1-25 normal #FERNANDEZ - CPAP when appropriate #Morbid Obesity - Weight 112 kg, complicates all aspects of care Fluids: PO DVT Ppx: PLOV Diet: Regular diet Code status: Full Code Discharge Planning: Anticipated discharge to: Rehab facility (specify) Anticipated discharge needs: None Family Contact: Judi Owens Follow-up: PCP Gastroenterology No future appointments. Electronically Signed by: Gucci Martines - 10/03/2024 - 1:10 PM Cosigned by Momo Akhtar MD at 10/03/2024 6:55 PM EDT Associated attestation - Momo Akhtar MD - 10/03/2024 6:55 PM EDT I saw and evaluated the patient with the medical/[employer]/PA student. I discussed the case with the medical/[employer]ER/PA student and agree with the findings and plan as documented. I personally performed the Examand Medical Decision Making. Stroke alert overnight but unremarkable workup and patient back to baseline. Encephalopathy overnight likely delirium on top of acute hepatic encephalopathy. Continuing lactulose. * Progress Notes - Sanjiv Carter - 10/03/2024 10:02 AM EDT Physical Therapy Evaluation Patient Name: Andrew Oconnor Today's Date: 10/03/2024 PT Discharge Recommendations: Subacute rehab Equipment Recommended: Defer to facility History Andrew Oconnor is 54 y.o. female admitted 09/30/2024 for work-up of HE (hepatic encephalopathy) (CMS/HCC). Problem List Active Hospital Problems Diagnosis Date Noted Acute encephalopathy 09/30/2024 KYLIE (acute kidney injury) ([facility]) 09/30/2024 Hypoglycemia 09/30/2024 HE (hepatic encephalopathy) ([facility]) 11/19/2020 Procedures Past Medical History Patient has a past medical history of ALL (acute lymphoblastic leukemia of infant) ([facility]) and Stroke ([facility]). Past Surgical History Patient has a past surgical history that includes Cholecystectomy (N/A); Appendectomy (N/A); and section, low transverse (N/A). Precautions Medical Precautions: Fall precautions Subjective Pt was agreeable to working with PT today. She reports overall feeling okay but she did c/o her R ankle throughout the session d/t having bone spurs. Participants in Care Family/Caregiver Present: No Network Desktop Support Specialist: Not Applicable Presentation Oxygen Therapy: None (Room air) Lines and Tubes: Intravenous access Pre-Session: Supine, Head of bed elevated, Lines intact Pre-Session Comments: RN and CNT present in room upon PT/OT arrival, pt reporting urgent need to transfer to [facility] Post-Session: Sitting in chair, Chair alarm, Lines intact, RN notified, Call light in reach Post-Session Comments: All needs met, RN in room at conclusion Home Living/Set-up Home Type: intermediate ([facility]) Home Adaptive Equipment: Rolling walker (pt reports RW is non-functional and is interested in obtaining a rollator) Home Layout: One level Bathroom: Tub/Shower: (Pt is unable to accurately elaborate on bathroom set up, but reports she completes shower transfer independently) Prior Level of Function Receives Help From: Caregiver (staff at [facility]) Level of Mobility: Ambulatory- household only Mobility Grayson: Independent gait without device History of Falls: Yes (reports fall onto concrete approximately one month ago, navigating down stairs) ADL Performance: Needs assistance Bathing: Independent Upper Body Dressing: Independent Lower Body Dressing: Independent Grooming: Independent Toileting: Independent Eating: Independent Home Management Skills: Needs assist Patient/Family Goals Improve strength Objective Pain 0/10 at rest. Pt c/o pain in bilateral wrists from IV sites with mobility and pain in R ankle during walking and weightbearing. Delirium Screening Moore Agitation Sedation Scale (RASS): Alert and calm Confusion Assessment Method-ICU (CAM-ICU/PCAM-ICU) Feature 3: Altered Level of Consciousness: Negative Cognition Overall Cognitive Status: Impaired Arousal/Alertness: Delayed responses to stimuli Mood/Behavior: Alert, Confused Orientation Level: Oriented to person, Oriented to place, Disoriented to time, Oriented to situation Orientation Level Comments: Name of hospital as [facility] ; not oriented to date, requiredcues and choices to recall month/year Single Step Commands: Consistently, With increased time Multi-Step Commands: Consistently, With increased time, With repetition, 75% of the time Method of Communication: Verbal (mild speech impediment noted) Vision - Basic Assessment Tracking: Intact Right Upper Extremity Examination RUE Assessment: Within Functional Limits Manual Muscle Testing - RUE: Within functional limits Sensation Light Touch: Right Upper Extremity: Intact Left Upper Extremity Examination LUE ROM Assessment LUE Assessment: Within Functional Limits Manual Muscle Testing - LUE Manual Muscle Testing - LUE: Within functional limits Sensation Light Touch: Left Upper Extremity: Intact Right Lower Extremity Examination RLE ROM Assessment RLE Assessment: Within Functional Limits Manual Muscle Testing - RLE Manual Muscle Testing - RLE: Within functional limits except (Grossly 4-/5) Sensation Light Touch: Right Lower Extremity: Intact Left Lower Extremity Examination LLE Assessment: Within Functional Limits Manual Muscle Testing: Within functional limits except (Grossly 3+/5. Unable to formally assess d/tpain. Observed with functional mobility.) Sensation Light Touch: Left Lower Extremity: Intact Bed Mobility Bed Mobility Exam: Scooting/Bridging Level of Grayson: Moderate assist (50% patient's effort) (scooting hips forward to edge of bed) Physical/Nonphysical Assist: Verbal Cues, Nonverbal cues (demo/gestures), Additional assist utilized for safety Assistive Device: Bed rails Bed Mobility Exam: Supine to Sit Level of Grayson: Moderate assist (50% patient's effort) Physical/Nonphysical Assist: HOB elevated, Verbal Cues, Nonverbal cues (demo/gestures), Additional assist utilized for safety Assistive Device: Bed rails Transfers Transfer Exam: Sit to stand Level of Grayson: Moderate assist (50% patient's effort) (progressing to min A from recliner) Physical/Nonphysical Assist: Verbal Cues, Additional assist utilized for safety Assistive Device: Hand held assist Transfer Exam: Stand to Sit Level of Grayson: Minimum assist (75% patient's effort) Physical/Nonphysical Assist: Verbal Cues, Additional assist utilized for safety Assistive Device: Hand held assist Transfer Exam: Bed to Chair/Chair to Bed Level of Grayson: Minimum assist (75% patient's effort) Physical/Nonphysical Assist: Set-up required, Verbal Cues, Nonverbal cues (demo/gestures), Moderatecues, Additional assist utilized for safety Type of Transfer: Sidesteps Assistive Device: Hand held assist Toilet Transfer Level of Grayson: Moderate assist (50% patient's effort) Physical/Nonphysical Assist: Verbal Cues, Nonverbal cues (demo/gestures), Moderate cues Type of Transfer: Sidesteps, To bedside commode Assistive Device: Hand held assist Ambulation Device: Hand held assist, Rolling walker Apparatus: Chair follow Assistance: Minimum assistance, Moderate tactile cues, Minimal verbal cues, Additional assist utilized for safety Distance : 12' + 25' Ambulation Comments: Pt ambulating around foot of bed to go to chair with bilateral [address] TRUCK DRIVER. After a seated rest pt progressed to ambulating around her room with RW and min assist. Pt demonstrating antalgic gait on R side, requiring occasional min assist for steadying d/t buckling. Balance Postural Appearance Posture: Forward head, Rounded shoulders Static Sitting Balance Static Sitting-Balance Support: Right upper extremity support, Left upper extremity support, Feet supported Static Sitting-Level of Assistance: Standby assist Dynamic Sitting Balance Dynamic Sitting-Balance Support: Right upper extremity support, Left upper extremity support, Feet supported Level of Assistance: Minimum assistance Static Standing Balance Static Standing-Balance Support: Right upper extremity support, Left upper extremity support Static Standing-Level of Assistance: Minimum assistance Dynamic Standing Balance Dynamic Standing-Balance Support: Right upper extremity support, Left upper extremity support Dynamic Standing Level of Assistance: Moderate assistance Therapeutic Activity (16 minutes) Pt working on improving bed mobility, transfers, activity tolerance, and safety awareness through functional mobility today. PT provided min verbal and tactile cues for sequencing with supine to sit transfers. PT further providing verbal and tactile cues and min assist for scooting to EOB to place feet on the ground to improve base of support, seated balance, and posture. Once sitting, pt reported no dizziness. During sit to stand transfers, PT provided mod verbal and tactile cues for anteriorly scooting to position center of gravity over base of support, placing hands on stable surfaces to improve safety, and proper use of assistive device for support. Pt then progressed to performing bed<>BSC transfer with sidesteps with PT providing mod verbal and tactile cues for upright postureand sequencing of transfer. Pt then progressed to ambulating in room, see gait training for furtherdetails. Following activity pt was positioned for comfort and pressure relief. Gait Training (10 minutes) Gait Analysis: Pt is demonstrating reciprocal gait pattern, decreased step length bilaterally, decreased gait speed, decreased jose luis, antalgic gait R side, and downward gaze using bilateral [address] TRUCK [employer]IVER initially during ambulation. Pt reporting that she normally doesn't need support, mostly because she cannot effectively use her RW that's available to her. Interventions: PT provided cuing for fitting RW, sequencing with RW, step-to R gait pattern, upright posture, shoulder retraction, forward gaze, safety awareness, improving proximity to walker to encourage upright posture, and pt was also provided with chair follow to ensure safety during ambulation. . Response: Pt demonstrated improved gait pattern but pt required frequent cues to maintain changes, improved posture, and stable vital signs throughout. Standardized Assessments Standardized Assessments Standardized Assessments: [facility] 6-Clicks Mobility Assessment [facility] 6-Clicks Mobility Assessment Difficulty patient has turning over in bed (including adjusting bedclothes, sheets, and blankets)?:A little Difficulty patient has sitting down on and standing up from a chair with arms (wheelchair, bedside commode, etc.)?: A little Difficulty patient has moving from lying on back to sitting on the side of the bed?: A little How much help does the patient need moving to and from a bed to a chair (including a wheelchair)?: A little How much help does the patient need to walk in hospital room?: A little How much help does the patient need climbing 3-5 steps with a railing?: A lot [facility] 6-Clicks Mobility Assessment Total : 17 No data recorded Assessment Pt is demonstrating decreased mobility from her reported baseline level of function. As of today she is requiring min to mod assist for all mobility and ADLs and was unable to walk household distances. At this time she would be unable to safely navigate her home environment and she will benefit from continued skilled PT services while admitted and at [facility] to help address her deficits and to help her maximize her independence with all functional mobility and ADLs. Impairments: Decreased endurance, ventilation, and/or gas exchange, Impaired gait dynamics/performance, Decreased strength, Decreased range of motion, Pain, Impaired functional mobility/transfers, Impaired motor planning, Impaired balance, Impaired attention/alertness Activity Limitations: Inability to sit independently, Inability to ambulate independently, Inability to transfer independently, Inability to ambulate household distances, Inability to ambulate community distances, Inability to complete ADLs independently Participation Restrictions: Self-care, Home management, Community leisure Activity Tolerance: Tolerates 30 min activity with multiple rests Evaluation/Treatment Tolerance: Patient limited by fatigue, Patient limited by pain Diagnosis: Deficits in functional mobility Rehab Potential: Good, to achieve stated therapy goals Barriers to Discharge: Comorbidities, Ability to acquire knowledge, Limited financial resources Eval Complexity History Profile: 3 or more personal factors and/or comorbidities Clinical Presentation: Evolving clinical presentation with changing characteristics Clinical Decision Making: Moderate complexity PT Recommendations Discharge Destination: Subacute rehab Discharge Equipment: Defer to facility Plan Planned PT Interventions Balance training, Bed mobility training, Gait training, Transfer training, ROM, Strengthening, Functional Mobility PT Frequency 2 - 5 times per week PT Duration 2 weeks Goals PT GOAL DETAILS Time Frame PT Goal 1: Pt will demonstrate supine<>sit transfers with SBA and using LRAD 2 weeks PT Goal 2: Pt will demonstrate sit<>stand transfers with SBA and using LRAD. 2 weeks PT Goal 3: Pt will ambulate 100' or more with SBA and using LRAD. 2 weeks PT Goal 4: Pt will demonstrate independence with all home instructions and precautions by providingteach back to PT 2 weeks Written by Sanjiv Carter on 10/03/24 at 2:42 PM. * Progress Notes - Shanda Andres - 10/03/2024 10:01 AM EDT Occupational Therapy Evaluation Patient Name: Andrew Oconnor Today's Date: 10/03/2024 OT Discharge Recommendations: Subacute rehab Equipment Recommended: Defer to facility, Rollator History Andrew Oconnor is 54 y.o. female admitted 09/30/2024 for work-up of HE (hepatic encephalopathy) ([facility]). Problem List Active Hospital Problems Diagnosis Date Noted Acute encephalopathy 09/30/2024 KYLIE (acute kidney injury) ([facility]) 09/30/2024 Hypoglycemia 09/30/2024 HE (hepatic encephalopathy) ([facility]) 11/19/2020 Past Medical History Patient has a past medical history of ALL (acute lymphoblastic leukemia of ) ([facility]) and Stroke ([facility]). Past Surgical History Patient has a past surgical history that includes Cholecystectomy (N/A); Appendectomy (N/A); and section, low transverse (N/A). Precautions Medical Precautions: Fall precautions Subjective Pt and RN agreeable to initial OT evaluation. Pt reported urgent need to use BSC upon OT arrival. Participants in Care Family/Caregiver Present: No Network Desktop Support Specialist: Not Applicable Presentation Oxygen Therapy: None (Room air) Lines and Tubes: Intravenous access Pre-Session: Supine, Head of bed elevated, Lines intact Pre-Session Comments: RN and CNT present in room upon PT/OT arrival, pt reporting urgent need to transfer to BSC Post-Session: Sitting in chair, Chair alarm, Lines intact, RN notified, Call light in reach Post-Session Comments: All needs met, RN in room at conclusion Home Living/Set-up Home Type: intermediate ([facility]) Home Adaptive Equipment: Rolling walker (pt reports RW is non-functional and is interested in obtaining a rollator) Home Layout: One level Bathroom: Tub/Shower: (Pt is unable to accurately elaborate on bathroom set up, but reports she completes shower transfer independently) Prior Level of Function Receives Help From: Caregiver (staff at [facility]) Level of Mobility: Ambulatory- household only Mobility Grayson: Independent gait without device History of Falls: Yes (reports fall onto concrete approximately one month ago, navigating down stairs) ADL Performance: Needs assistance Bathing: Independent Upper Body Dressing: Independent Lower Body Dressing: Independent Grooming: Independent Toileting: Independent Eating: Independent Home Management Skills: Needs assist Patient/Family Goals Statement Pt desires to return home when able to. Objective Pain Pt reports 8 or 9/10 pain in posterior aspect of lower legs, described as tightness. Pt provided with increased activity/ambulation, followed by rest with pillow support. Delirium Screening Moore Agitation Sedation Scale (RASS): Alert and calm Confusion Assessment Method-ICU (CAM-ICU/PCAM-ICU) Feature 3: Altered Level of Consciousness: Negative Cognition Overall Cognitive Status: Impaired Arousal/Alertness: Delayed responses to stimuli Mood/Behavior: Alert, Confused Orientation Level: Oriented to person, Oriented to place, Disoriented to time, Oriented to situation Orientation Level Comments: Name of hospital as [facility] ; not oriented to date, requiredcues and choices to recall month/year Single Step Commands: Consistently, With increased time Multi-Step Commands: Consistently, With increased time, With repetition, 75% of the time Method of Communication: Verbal (mild speech impediment noted) Cognitive Function 1st 15 min Time Entry: 10 Cognition Interventions: OT provided extra processing time and occasional repetition of commands for patient to initiate, sequence, and complete ADL tasks. Pt with diffiulty multi-tasking and difficulty dividing attention throughout session, responding best to single step commands for functional tas ks. OT is providing min A for memory tasks and mod A for problem solving at this time. Vision - Basic Assessment Tracking: Intact Right Upper Extremity Examination RUE ROM Assessment RUE Assessment: Within Functional Limits Manual Muscle Testing - RUE: Within functional limits Sensation Light Touch: Right Upper Extremity: Intact Left Upper Extremity Examination LUE ROM Assessment LUE Assessment: Within Functional Limits Manual Muscle Testing - LUE: Within functional limits Sensation Light Touch: Left Upper Extremity: Intact Right Lower Extremity Examination RLE ROM Assessment RLE Assessment: Within Functional Limits Manual Muscle Testing - RLE: Within functional limits except (Grossly 4-/5) Sensation Light Touch: Right Lower Extremity: Intact Left Lower Extremity Examination LLE ROM Assessment LLE Assessment: Within Functional Limits Manual Muscle Testing: Within functional limits except (Grossly 3+/5. Unable to formally assess d/tpain. Observed with functional mobility.) Sensation Light Touch: Left Lower Extremity: Intact Bed Mobility Bed Mobility Exam: Scooting/Bridging Level of Grayson: Moderate assist (50% patient's effort) (scooting hips forward to edge of bed) Physical/Nonphysical Assist: Verbal Cues, Nonverbal cues (demo/gestures), Additional assist utilized for safety Assistive Device: Bed rails Bed Mobility Exam: Supine to Sit Level of Grayson: Moderate assist (50% patient's effort) Physical/Nonphysical Assist: HOB elevated, Verbal Cues, Nonverbal cues (demo/gestures), Additional assist utilized for safety Assistive Device: Bed rails Transfers Transfer Exam: Sit to stand Level of Grayson: Moderate assist (50% patient's effort) (progressing to min A from recliner) Physical/Nonphysical Assist: Verbal Cues, Additional assist utilized for safety Assistive Device: Hand held assist Transfer Exam: Stand to Sit Level of Grayson: Minimum assist (75% patient's effort) Physical/Nonphysical Assist: Verbal Cues, Additional assist utilized for safety Assistive Device: Hand held assist Toilet Transfer Level of Grayson: Moderate assist (50% patient's effort) Physical/Nonphysical Assist: Verbal Cues, Nonverbal cues (demo/gestures), Additional assist utilized for safety Type of Transfer: Sidesteps, To bedside commode Assistive Device: Hand held assist Functional Mobility Device: Hand held assist, Rolling walker Apparatus: Chair follow Assistance: Minimum assistance, Moderate verbal cues, Moderate tactile cues, Additional assist utilized for safety Distance : 12 ft around bed to recliner with [address]IG[address] TRUCK DRIVER + 25 ft in room with RW Ambulation Comments: Assist to turn walker when preparing to sit, occasionally buckling in RLE withc/o pain in R foot due to bone spurs. Mod VC's/TC's for safety and sequencing functional mobility tasks with RW use. Balance Postural Appearance Posture: Forward head, Rounded shoulders Static Sitting Balance Static Sitting-Balance Support: Right upper extremity support, Left upper extremity support, Feet supported Static Sitting-Level of Assistance: Standby assist Dynamic Sitting Balance Dynamic Sitting-Balance Support: Right upper extremity support, Left upper extremity support, Feet supported Level of Assistance: Minimum assistance Static Standing Balance Static Standing-Balance Support: Right upper extremity support, Left upper extremity support Static Standing-Level of Assistance: Minimum assistance Dynamic Standing Balance Dynamic Standing-Balance Support: Right upper extremity support, Left upper extremity support Dynamic Standing Level of Assistance: Moderate assistance Participation in Functional Tasks: Moderate assistance Self-Care Interventions Self Care/Home Management (ADLs) Time Entry: 15 Self-Care Interventions: OT provided extra time and mod VC's for patient to initiate, sequence, andcomplete ADL tasks. Pt demos difficulty fully bearing weight through R foot in standing this date with ongoing c/o bone spur pain and R knee buckling intermittently throughout functional activity, ptwith decreased safety awareness throughout all self-care tasks, ongoing cues needed to keep walker close and assist to turn and manage walker with functional transfers. Feeding Feeding Level of Assistance: Setup Feeding Where Assessed: Chair Level Feeding Interventions: To perform self-feeding tasks, pt is on soft and bite sized diet Grooming Grooming Level of Assistance: Moderate assistance, Minimal verbal cues Grooming Where Assessed: Chair level Grooming Interventions: To brush hair, pt required assist with posterior aspect of hair 2/2 tanglesand matting Lower Extremity Dressing Sock Level of Assistance: Dependent LE Dressing Where Assessed: Chair level LE Dressing Interventions: To don bilateral non-skid socks Toileting Toileting Level of Assistance: Dependent Where Assessed: Bedside commode Toileting Interventions: Pt with Purewick in place, completed continent BM on BSC, dep A for all hygiene tasks in stance with 2nd person needed for steadying Standardized Assessments Mei Index Feeding: Needs help cutting, spreading butter, etc., or requires modified diet Bathing: Dependent Grooming: Needs help with personal care Dressing: Needs help but can do about half unaided Bowels: Occasional accident Bladder: Occassional accident Toilet Use: Dependent Transfers (Bed to Chair and Back): Minor help (verbal or physical) Mobility (on Level Surfaces): Immobile or < 50 yards Stairs: Unable Total Score: 30 Assessment Pt is limited by impaired cognition, pain, and decreased standing balance which impacts overall ADLtask performance. Pt is most appropriate for MICHA upon discharge as pt is previously independent with ADLs and mobility without use of assistive device (owns RW, but does not use) and is currently requiring mod A for functional transfers and dep A for lower body ADL tasks (toileting, dressing tasks). Pt will continue to benefit from skilled OT services at this time to address decreased safety and independence with ADLs, functional transfers, and functional mobility. OT Findings: Impaired ADL performance, Impaired IADL performance, Impaired judgment during ADL, Impaired cognition, Impaired attention, Decreased endurance/ventilation/gas exchange, Impaired executive function, Impaired functional mobility, Impaired postural/trunk control, Impaired balance Evaluation/Treatment Tolerance: Patient limited by fatigue, Patient limited by pain Rehab Potential: Good, to achieve stated therapy goals Eval Complexity Occupational Profile: Review of medical/therapy records and extensive additional review of physical, cognitive, or psychosocial history Performance Deficits: Activities of daily living (ADLs), Instrumental activities of daily living (IADLs), Rest and sleep, Leisure, Social participation, Body functions, Body structures, Motor skills,Process skills, Social interaction skills, Habits, Routines, Roles Clinical Decision Making: Moderate Overall Eval complexity: Moderate OT Recommendations Discharge Destination: Subacute rehab Discharge Equipment: Defer to facility, Rollator Plan Planned OT Interventions ADL retraining, IADL retraining, Balance training, Bed mobility Training, Joint mobilization, Motorcoordination training, ROM, Strengthening, Transfer training, Functional mobility, Oral motor skills, Feeding skills, Cognitive retraining, Caregiver education OT Frequency 2 - 5 times per week OT Duration 2 weeks Goals OT GOAL DETAILS Time Frame OT Goal 1: Pt will verbalize or demonstrate understanding of UE HEP and discharge recommendations. 2 weeks OT Goal 2: Pt will perform functional transfers (including toilet transfer) with mod I using RW or rollator. 2 weeks OT Goal 3: Pt will complete all toileting tasks at RW (or rollator) level with mod I using AE PRN. 2 weeks OT Goal 4: Pt will perform LB dressing tasks with mod I using AE PRN. 2 weeks Written by Shanda Andres on 10/03/24 at 2:08 PM. * Procedures - Garcia Lutz MD - 10/03/2024 12:45 AM EDTAssociated Order(s): Critical Care Post-Procedure Diagnose(s): Thrombocytopenia (CMS/HCC); HE (hepatic encephalopathy) (CMS/HCC); Dysarthria; Acute encephalopathy; Chest pain, unspecified type Critical Care Performed by: Garcia Lutz MD Authorized by: Garcia Lutz MD Critical care provider statement: Critical care time (minutes): 25 Critical care was time spent personally by me on the following activities: Evaluation of patient's response to treatment, examination of patient, review of old charts, ordering and review of radiographic studies and ordering and review of laboratory studies Comments: Patient seen at bedside urgently for concern for AMS Per RN, he had noticed acute changes in mentation with worsening confusion, slurred speech and inability to move left care. On my exam of patient, BG >100, Vitals within range. She is awake sitting in bed, appears confused and in unable to follow commands consistently. No obvious facial droop or other CN deficits. Ableto withdraw all 4 extremities to pain stimulus. NIHSS = 4. During exam, patient had episode of clenching her chest that self resolved -Per note, some dysarthria present on admission, she is being treated for HE A/P: Her current acute presentation maybe a manifestation of her fluctuating mental status from HE. No trauma or head injury prior to acute change is reassuring though her dysarthria is rather significant. Her inability to follow commands leaves motor exam of limited utility. We'll perform a head scan stroke protocol. Should scans not be suggestive of CVA, we'll consider adding lactulose . -get EKG -transfer to progressive * Significant Event - Kvng, Andrew Duncan RN - 10/03/2024 12:21 AM EDT 10/03/24 0021 10/03/24 0022 10/03/2423 Event/Notification Description Event Location [place] -- -- Department and Room Number 581 -- -- Is the patient a DNR? No -- -- Type of Event Decline -- -- Type of Decline Mental status changes -- -- Method of Notification Nurse (specify) (via NONO Chat) -- -- Vitals Temp -- -- 36.8 ??C (98.2 ??F) Heart Rate -- -- 78 SpO2 -- -- 96 % BP -- -- 134/74 MAP (mmHg) -- -- 94 Onset and Notification Specifics Hours in Decline Before DENTAL HYGIENE TEACHER Notified <4 -- -- Time MD Notified 0021 (in Epic Chat) -- -- Time MD Arrived 0030 -- -- Time DENTAL HYGIENE TEACHER RN Notified 0021 -- -- Time DENTAL HYGIENE TEACHER RN Arrived 0024 -- -- Rapid RT Notified Yes -- -- Rapid Response Outcome Survival Yes -- -- Rapid Response Termination Due to Patient transferred to progressive care -- -- Discontinuing Deterioration Record Time 0125 -- -- Provider Notification Reason for Communication -- Evaluate (asked provider to come to bedside.) -- Provider Name -- Karina Arteaga DO -- Provider Role -- Other (Comment) (First call) -- Method of Communication -- Secure message -- Response -- At bedside;See orders (Added on site provider and came to bedside) -- Notification Time -- 002 -- 10/03/24 0035 10/03/24 0100 10/03/24 0113 Event/Notification Description Event Location -- -- -- Department and Room Number -- -- -- Is the patient a DNR? -- -- -- Type of Event -- -- -- Type of Decline -- -- -- Method of Notification -- -- -- Vitals Temp 36.8 ??C (98.3 ??F) -- -- Heart Rate 79 76 79 SpO2 96 % 97 % 96 % BP 136/76 127/69 114/58 MAP (mmHg) 96 88 72 Onset and Notification Specifics Hours in Decline Before DENTAL HYGIENE TEACHER Notified -- -- -- Time MD Notified -- -- -- Time MD Arrived -- -- -- Time DENTAL HYGIENE TEACHER RN Notified -- -- -- Time DENTAL HYGIENE TEACHER RN Arrived -- -- -- Rapid RT Notified -- -- -- Rapid Response Outcome Survival -- -- -- Rapid Response Termination Due to -- -- -- Discontinuing Deterioration Record Time -- -- -- Provider Notification Reason for Communication Rapid response team (added rapid response team) -- -- Provider Name -- -- -- Provider Role -- -- -- Method of Communication -- -- -- Response At bedside -- -- Notification Time -- -- -- Notified via urgent message in NONO Chat of need for assistance - DENTAL HYGIENE TEACHER requested with MD to bedside.DENTAL HYGIENE TEACHER to bedside. Primary nursing staff present. Pt in bed in NAD. Appeared to be sleeping. Startled when touched lightly - moved all extremities and shouted. Pt starring straight ahead and rarely making eye contact. Pupils equal and reactive to light at 4 mm bilaterally. Speech impediment vs. Slurred speech - oriented to first name but was confused about year and location although she was aware that she was not a home. Able to give thumbs up bilaterally but was uncooperative with other commands.No clear focal deficit. VSS. Placed on heart monitor - sinus on monitor - in 70s. BP WNL. Sp02 in mid to upper 90s on RA. GCS 3/4/6 - does quickly close eyes and appears to fall back to sleep but is easily woken and maintaining airway. Startles whenever woken. Asterixis present. Resps even and unlabored. Abd soft and not TTP. Skin warm and dry. MD Lutz present soon after DENTAL HYGIENE TEACHER and POC was discussed. Labs obtained including VBG which was unremarkable. 20g PIV placed in right wrist for additional access. EKG obtained. Pt transported to CT via bed. No obvious complications in route or in scan. Pttransported via bed and on monitor to 10- 129 and care turned over to progressive care nursing staff. * Care Plan - Mason Vallejo RN - 10/03/2024 12:01 AM EDT Problem: Adult Inpatient Plan of Care Goal: Plan of Care Review Outcome: Ongoing, Progressing Goal: Patient-Specific Goal (Individualized) Outcome: Ongoing, Progressing Goal: Absence of Hospital-Acquired Illness or Injury Outcome: Ongoing, Progressing Goal: Optimal Comfort and Wellbeing Outcome: Ongoing, Progressing Goal: Readiness for Transition of Care Outcome: Ongoing, Progressing Problem: Fall Injury Risk Goal: Absence of Fall and Fall-Related Injury Outcome: Ongoing, Progressing Problem: Pain Acute Goal: Optimal Pain Control and Function Outcome: Ongoing, Progressing Problem: Liver Failure Goal: Optimal Coping with Liver Failure Outcome: Ongoing, Progressing Goal: Absence of Bleeding Outcome: Ongoing, Progressing Goal: Fluid and Electrolyte Balance Outcome: Ongoing, Progressing Goal: Minimize and Manage Gastrointestinal Symptoms Outcome: Ongoing, Progressing Goal: Blood Glucose Level Within Target Range Outcome: Ongoing, Progressing Goal: Hemodynamic Stability Outcome: Ongoing, Progressing Goal: Absence of Infection Signs and Symptoms Outcome: Ongoing, Progressing Goal: Optimize Neurologic Function Outcome: Ongoing, Progressing Goal: Improved Oral Intake Outcome: Ongoing, Progressing Goal: Optimal Pain Control, Comfort and Function Outcome: Ongoing, Progressing Goal: Effective Oxygenation and Ventilation Outcome: Ongoing, Progressing * Care Plan - Klever Ware LPN - 10/02/2024 6:35 PM EDT Problem: Adult Inpatient Plan of Care Goal: Plan of Care Review Outcome: Ongoing, Progressing Flowsheets (Taken 10/02/2024 0149) Plan of Care Reviewed With: patient Goal: Patient-Specific Goal (Individualized) Outcome: Ongoing, Progressing Goal: Absence of Hospital-Acquired Illness or Injury Outcome: Ongoing, Progressing Goal: Optimal Comfort and Wellbeing Outcome: Ongoing, Progressing Goal: Readiness for Transition of Care Outcome: Ongoing, Progressing Problem: Fall Injury Risk Goal: Absence of Fall and Fall-Related Injury Outcome: Ongoing, Progressing Problem: Pain Acute Goal: Optimal Pain Control and Function Outcome: Ongoing, Progressing Problem: Liver Failure Goal: Optimal Coping with Liver Failure Outcome: Ongoing, Progressing Goal: Absence of Bleeding Outcome: Ongoing, Progressing Goal: Fluid and Electrolyte Balance Outcome: Ongoing, Progressing Goal: Minimize and Manage Gastrointestinal Symptoms Outcome: Ongoing, Progressing Goal: Blood Glucose Level Within Target Range Outcome: Ongoing, Progressing Goal: Hemodynamic Stability Outcome: Ongoing, Progressing Goal: Absence of Infection Signs and Symptoms Outcome: Ongoing, Progressing Goal: Optimize Neurologic Function Outcome: Ongoing, Progressing Goal: Improved Oral Intake Outcome: Ongoing, Progressing Goal: Optimal Pain Control, Comfort and Function Outcome: Ongoing, Progressing Goal: Effective Oxygenation and Ventilation Outcome: Ongoing, Progressing * Hospital Course - Gucci Martines - 10/02/2024 1:30 PM EDT Andrew Oconnor is a 50 y/o F with Hx of BOWDEN Cirrhosis with history of HE, mild cognitive delay, childhood ALL, meningioma, migraines, hypothyroidism, HTN, peptic ulcer disease, Depression/Anxiety, FERNANDEZ who presents to ED from personal fci with altered mental status found to have hepatic ence phalopathy. Hepatic encephalopathy, Portal Hypertension - Patient had not been adequately taking lactulose while at care center and presented with acute mental status change. - Thorough ED evaluation ruled out other potential causes of encephalopathy. Negative CTH, CXR, UA,CBC wnl, electrolytes wnl. Ammonia 149. MELD 3.0 of 12. - Patient initially tender in the RUQ but no evidence of acute inflammation on CT. Abdominal ultrasound did not show any ascitic pocket of fluid lowering concern of SBP. Pain resolved as encephalopathy resolved. -Patient was started on lactulose 20 g TID, rifaximin 550mg, PPI, carvedilol titrated to 3-5 bowel movements per day. - Significant improvement in mental status back to baseline on discharge. 2. Acute Kidney Injury iso poor PO intake - Patient likely with poor PO intake while encephalopathic - UA with high specific gravity. Creatinine was 1.28 on presentation, baseline around 0.8-1.0. - Patient was rehydrated with IV fluids and encouraging PO intake. - CMP was monitored with improvement in creatinine. - Returned to baseline with strong PO intake and stable at discharge. 3. Left Upper Extremity nodule - Patient reports this appeared first a bruise after receiving a shot (unclear what shot, possibly pLOV). Tender to touch - Ultrasound shows a 9mm cystic/fluid filled mass with well defined margins and hyperechoic rim, not completely compressible with probe - will likely resolve spontaneously - outpatient follow up with general surgery 4. Mouth Pain - Patient reports mouth pain in lower gums under her dentures - Recommend dentistry follow up * Progress Notes - Gucci Martines - 10/02/2024 12:55 PM EDT Images from the original note were not included. Hospital Medicine Progress Note Subjective Length of stay: 2 days Brief Patient Summary: Andrew Oconnor is a 50 y/o F with Hx of BOWDEN Cirrhosis with history of HE, mild cognitive delay, childhood ALL, meningioma, migraines, hypothyroidism, HTN, PUD, Depression/Anxiety, FERNANDEZ who [facility] from [facility] with altered mental status secondary to hepatic encephalopathy. Currently on lactulose 20 TID, rifaximin, coreg. Given 500 mL bolus LR. Subjective NAEON. Patient doing well this morning. Reporting 4x bowel movements yesterday. She mentions ongoing abdominal pain mostly epigastric and in the RUQ. She also says she does not like her current fci since it is dirty and unkempt. Reporting No other concerns. Denies shortness of air, chest pain, fevers. Review of Systems Review of Systems All other systems reviewed and are negative. Objective Objective Last Recorded Vitals Blood pressure 108/67, pulse 87, temperature 36.8 ??C (98.3 ??F), temperature source Oral, resp. rate 14, height 1.524 m (5'), weight 106 kg (234 lb 9.1 oz), SpO2 92%. Physical Exam Constitutional: Appearance: She is not toxic-appearing. Comments: Improved mentation HENT: Right Ear: External ear normal. Left Ear: External ear normal. Mouth/Throat: Mouth: Mucous membranes are dry. Cardiovascular: Rate and Rhythm: Normal rate and regular rhythm. Pulses: Normal pulses. Pulmonary: Effort: Pulmonary effort is normal. No respiratory distress. Breath sounds: Normal breath sounds. Abdominal: Tenderness: There is abdominal tenderness (RUQ). There is no rebound. Musculoskeletal: Right lower leg: Edema present. Left lower leg: Edema present. Skin: General: Skin is warm. Neurological: Comments: Asterixis present Relevant Results Labs in last 18 hours CBC WBC ?? Hb ?? Plt ?? Hct ?? ANC ?? INR ??, PTT ??, Anti-Xa ?? BMP Na ?? Cl ?? BUN ?? Glu ?? K ?? Co2 ?? Cr ?? Ca ?? iCa ?? Mg ??, Phos ?? Lactate ?? LFT AST ?? AlkPhos ?? T Prot ?? ALK ?? Bili ?? Alb ?? D.Bili ?? Assessment/Plan Assessment & Plan Principal Problem: HE (hepatic encephalopathy) (CMS/HCC) Active Problems: Acute encephalopathy KYLIE (acute kidney injury) (CMS/HCC) Hypoglycemia Andrew Oconnor is a 50 y/o F with Hx of BOWDEN Cirrhosis with history of HE, mild cognitive delay, childhood ALL, meningioma, migraines, hypothyroidism, HTN, PUD, Depression/Anxiety, FERNANDEZ who [facility] from [facility] with altered mental status secondary to hepatic encephalopathy. #Hepatic Encephalopathy #Portal Hypertension -Patient was noted to be altered and not acting like herself on 09/30/24. - Infectious, intracranial, and toxic workup was negative in the ED. In a known cirrhotic with prior HE and unclear compliance with Lactulose therapy, highly likely to be altered due to HE. Ammonia 149. -No known GI bleeding. -Patient is still exquisitely tender on palpation of RUQ. Tenderness is unexpected in MASH cirrhosis with a negative infectious workup and no evidence of hepatic thrombosis. No pocket of fluid was visualized on ultrasound, lowering the probability of but not entirely ruling out SBP. Differential also includes constipation, which was visualized on CT. -Patient is likely dehydrated intravascularly due to poor PO intake secondary to acute mental status change. Plan: - Continue Lactulose 20g TID, titrating to 3-5 bowel movements daily - Continue Rifaximin 550mg BID - Continue PPI - Continue Coreg, monitor HR - Dysphagia screen - Monitor closely for signs of worsening mentation, infection, and renal function #Acute Kidney Injury - Likely due to poor intake, patient has high specific gravity on UA - Baseline creatinine ~ 0.8-1.0. Current Creatinine 1.17, improved from 1.28. - Patient doing well with PO intake Plan: - 500 mL bolus LR - Encourage PO intake. - CMP daily - Monitor I&Os - Continue to hold alcides #Hypoglycemia, improving - FSBG 65 on arrival, likely due to poor intake in setting of altered mental status and dehydration Plan: - Monitor - Encourage PO intake #Sinusitis - Noted on CT imaging - Mildly symptomatic Plan - Supportive care #Decompensated BOWDEN Liver Cirrhosis #Thrombocytopenia - HCC: no lesions on CT, AFP normal - EV: Last EGD unknown, continue Coreg - HE: previous hx, on Rifaximin, continue lactulose - Ascites: No Hx, on spironolactone at home, hold for now - SBP: NTD MELD-Na: MELD 3.0: 12 at 10/02/24 MELD-Na: 11 at 09/30/2024 10:22 PM Calculated from: Serum Creatinine: 1.28 mg/dL at 09/30/2024 10:22 PM Serum Sodium: 143 mmol/L (Using max of 137 mmol/L) at 09/30/2024 10:22 PM Total Bilirubin: 0.9 mg/dL (Using min of 1 mg/dL) at 09/30/2024 10:22 PM Serum Albumin: 3.7 g/dL (Using max of 3.5 g/dL) at 09/30/2024 10:22 PM INR(ratio): 1.2 at 09/30/2024 2:51 PM Age at listing (hypothetical): 54 years Sex: Female at 09/30/2024 10:22 PM Plan: - No fluid for paracentesis - Continue Coreg 3.125 mg BID - KYLIE - as above - HE - as above - Thrombocytopenia - Transfuse if actively bleeding and <50, or <20 - Continue Lactulose, Rifaximin - Continue Thiamine 100 mg daily - I/O's, daily weights, 2g Na diet, daily protein intake of 1.2 to 1.5 g/kg and caloric intake of at least 35 Kcal/kg ideal body weight - Avoid NSAIDS/ASA, APAP <2 g/day if needed - Ensure scheduled follow up with GI outpatient Chronic Conditions #Meningioma - stable on CTH, followed by [facility] in past #HTN: continue Carvedilol 3.125mg BID with hold parameters; resume Amlodipine 5 mg daily if patienthas SBP >160 #Hypothyroidism - continue Levothyroxine 88mcg #VENUS - repeat labs, consider resuming iron PO #PUD: Continue PPI daily #HFpEF - EF 60 to 80% in 2020, grade II diastolic function noted, not in exacerbation, no chest pain noted, resume Coreg and hold Spironolactone #Depression/Anxiety/Possible Conversion Disorder/Bipolar - will hold home medications pending medication reconciliation (Oxcarbazepine 150 mg BID, Duloxetine 60 mg daily, Amitriptyline 50 mg nightly) #Headaches/Migraines - chronic, APAP PRN, encourage CPAP compliance #Seasonal Allergies - hold Cetirizine 10 mg daily, may exacerbate confusion #Vitamin D Deficiency - Vitamin D 1-25 normal #FERNANDEZ - CPAP when appropriate #Morbid Obesity - Weight 112 kg, complicates all aspects of care Fluids: PO and Bolus PRN DVT Ppx: PLOV Diet: Regular diet 2g Na Code status: Full Code Discharge Planning: Anticipated discharge to: Rehab facility (specify) Anticipated discharge needs: None Family Contact: Judi Owens Follow-up: PCP Gastroenterology No future appointments. Electronically Signed by: Gucci Martines - 10/02/2024 - 12:55 PM Cosigned by Momo Akhtar MD at 10/02/2024 7:55 PM EDT Associated attestation - Momo Akhtar MD - 10/02/2024 7:55 PM EDT I saw and evaluated the patient with the medical/CAR BARN LABORER/PA student. I discussed the case with the medical/CAR BARN LABORER/PA student and agree with the findings and plan as documented. I personally performed the Examand Medical Decision Making. Overall improving but Ccntinued mild HE with intermittently delayed responses. Patient also reportspersistent fatigue. Will continue lactulose. * Progress Notes - Vincent Gonzalez - 10/02/2024 8:48 AM EDT Case Management Adult Progress Note Andrew Oconnor 54 y.o. female CSN: [id number] Admission: 09/30/2024 2:02 PM Primary Problem: HE (hepatic encephalopathy) (CMS/HCC) Anticipated Discharge Date: TBD Pt was admitted to the hospital due to hepatic encephalopathy. Plan of care reviewed with pt's careteam; and per MD, pt is not medically ready for discharge due to currently monitoring LFT's, and MDreported monitor closely for signs of worsening mentation, infection, and renal function. Patient lives at [facility], their phone number is . Pt state guardian reported that pt will need uber/wheelchair van for transportation upon discharge, Pt meets 300%FPG. SW will continue to follow-up with pt's MD and care team on their progress and discharge plan. Vincent Gonzalez, BENCH BORING MACHINE OPERATOR, COMPOSITION ROOFER * Care Plan - Caren Maravilla RN - 10/01/2024 9:39 PM EDT Problem: Adult Inpatient Plan of Care Goal: Plan of Care Review Outcome: Ongoing, Progressing Flowsheets (Taken 10/01/20241999) Progress: improving Plan of Care Reviewed With: patient Goal: Patient-Specific Goal (Individualized) Outcome: Ongoing, Progressing Goal: Absence of Hospital-Acquired Illness or Injury Outcome: Ongoing, Progressing Goal: Optimal Comfort and Wellbeing Outcome: Ongoing, Progressing Goal: Readiness for Transition of Care Outcome: Ongoing, Progressing Problem: Fall Injury Risk Goal: Absence of Fall and Fall-Related Injury Outcome: Ongoing, Progressing Problem: Pain Acute Goal: Optimal Pain Control and Function Outcome: Ongoing, Progressing Problem: Liver Failure Goal: Optimal Coping with Liver Failure Outcome: Ongoing, Progressing Goal: Absence of Bleeding Outcome: Ongoing, Progressing Goal: Fluid and Electrolyte Balance Outcome: Ongoing, Progressing Goal: Minimize and Manage Gastrointestinal Symptoms Outcome: Ongoing, Progressing Goal: Blood Glucose Level Within Target Range Outcome: Ongoing, Progressing Goal: Hemodynamic Stability Outcome: Ongoing, Progressing Goal: Absence of Infection Signs and Symptoms Outcome: Ongoing, Progressing Goal: Optimize Neurologic Function Outcome: Ongoing, Progressing Goal: Improved Oral Intake Outcome: Ongoing, Progressing Goal: Optimal Pain Control, Comfort and Function Outcome: Ongoing, Progressing Goal: Effective Oxygenation and Ventilation Outcome: Ongoing, Progressing * Progress Notes - Gucci Martines - 10/01/2024 2:16 PM EDT Images from the original note were not included. Hospital Medicine Progress Note Subjective Length of stay: 1 day Brief Patient Summary: Andrew Oconnor is a 50 y/o F with Hx of BOWDEN Cirrhosis with history of HE, mild cognitive delay, childhood ALL, meningioma, migraines, hypothyroidism, HTN, peptic ulcer disease,Depression/Anxiety, FERNANDEZ who presents to ED from [facility] with altered mentalstatus. Subjective Patient evaluated at bedside in the ED. She was alert and oriented x3. She says she does not know why she is here, but that she has a liver problem and it is painful. She cannot report if she has been taking lactulose at home. Denies falling. She appears to have improved mentation compared to description on initial encounter in the ED. Reporting some back pain. She reports having pain and 'heat' when attempting defecation. Denies shortness of air, chest pain, fevers, hematuria, hematemesis, melena. Review of Systems Review of Systems All other systems reviewed and are negative. Objective Objective Last Recorded Vitals Blood pressure 136/77, pulse 59, temperature 36.5 ??C (97.7 ??F), temperature source Oral, resp. rate 12, height 1.524 m (5'), SpO2 93%. Physical Exam Constitutional: Appearance: She is obese. She is not toxic-appearing. HENT: Head: Normocephalic. Right Ear: External ear normal. Left Ear: External ear normal. Nose: Congestion present. Mouth/Throat: Mouth: Mucous membranes are dry. Cardiovascular: Rate and Rhythm: Normal rate and regular rhythm. Pulses: Normal pulses. Heart sounds: Normal heart sounds. Pulmonary: Effort: Pulmonary effort is normal. No respiratory distress. Breath sounds: Normal breath sounds. Abdominal: General: There is distension. Tenderness: There is abdominal tenderness (Severe RUQ tenderness). Musculoskeletal: Right lower leg: Edema present. Left lower leg: Edema present. Skin: General: Skin is warm and dry. Findings: Bruising (right hip bruise) present. Neurological: Mental Status: She is alert. Relevant Results Labs in last 18 hours CBC WBC 4.21 Hb 13.8 Plt 106 (L) Hct 39.9 ANC 2.49 INR ??, PTT ??, Anti-Xa ?? BMP Na 143 Cl 110 (H) BUN 13 Glu 77 K 4.4 Co2 22 Cr 1.28 (H) Ca 9.5 iCa ?? Mg 2.2, Phos 3.5 Lactate ?? LFT AST 49 (H) AlkPhos 70 T Prot 6.9 ALK 25 Bili 0.9 Alb ?? D.Bili ?? IMAGING (past 24h): CXR: Lungs are clear. Heart and mediastinal contours are within normal limits. No pneumothorax. No pleural effusion. Bony structures are unremarkable. CT Head: No acute intracranial hemorrhage or acute large territorial infarction. Age-appropriate cerebral atrophy with moderate scattered periventricular and deep matter change, nonspecific, potentially sequela of chronic microvascular ischemic disease. Redemonstration of 9 mm extra-axial lesion right side of the tuberculum sella and right paraclinoidregion, previously characterized as probable meningioma, similar over the interval. Complete opacification right maxillary sinus with additional fluid opacification bilateral ethmoid air cells right greater than left. Additional small volume fluid versus retention cyst left sphenoidal sinus. Correlate for acute sinusitis. CT AP: 1. 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 No acute abdominal or pelvic findings. US Abdomen: 1. Patent hepatic vasculature with appropriate flow directionality Assessment/Plan Assessment & Plan Principal Problem: HE (hepatic encephalopathy) (CMS/HCC) Active Problems: Acute encephalopathy KYLIE (acute kidney injury) (CMS/HCC) Hypoglycemia Andrew Oconnor is a 50 y/o F with Hx of BOWDEN Cirrhosis with history of HE, mild cognitive delay, childhood ALL, meningioma, migraines, hypothyroidism, HTN, PUD, Depression/Anxiety, FERNANDEZ who [facility] ([facility] with altered mental status secondary to hepatic encephalopathy. #Hepatic Encephalopathy #Portal Hypertension -Patient was noted to be altered and not acting like herself on 09/30/24. - Infectious, intracranial, and toxic workup was negative in the ED. In a known cirrhotic with prior HE and unclear compliance with Lactulose therapy, highly likely to be altered due to HE. Ammonia 149. -No known GI bleeding. -Patient is exquisitely tender on palpation of RUQ. Tenderness is unexpected in MASH cirrhosis witha negative infectious workup and no evidence of hepatic thrombosis. No pocket of fluid was visualized on ultrasound, lowering the probability of but not ruling out SBP. Differential also includes constipation. -Patient is likely dehydrated intravascularly due to poor PO intake secondary to acute mental status change. Plan: - Continue Lactulose 20g TID, titrating to 3-5 bowel movements daily - Continue Rifaximin 550mg BID - Continue PPI - Continue Coreg, monitor HR - Dysphagia screen - Monitor closely for signs of worsening mentation, infection, and renal function #Acute Kidney Injury - Likely due to poor intake, patient has high specific gravity on UA - Baseline creatinine ~ 0.8-1.0. Current Creatinine 1.28 - Patient doing well with PO intake Plan: - 500 mL bolus LR - Encourage PO intake. - CMP daily - Monitor I&Os - Continue to hold alcides #Hypoglycemia, improving - FSBG 65 on arrival, likely due to poor intake in setting of altered mental status and dehydration Plan: - Monitor - Encourage PO intake #Sinusitis - Noted on CT imaging - Mildly symptomatic Plan - Supportive care #Decompensated BOWDEN Liver Cirrhosis #Thrombocytopenia - HCC: no lesions on CT, AFP normal - EV: Last EGD unknown, continue Coreg - HE: previous hx, on Rifaximin, continue lactulose - Ascites: No Hx, on spironolactone at home, hold for now - SBP: NTD MELD-Na: MELD 3.0: 12 at 09/30/2024 10:22 PM MELD-Na: 11 at 09/30/2024 10:22 PM Calculated from: Serum Creatinine: 1.28 mg/dL at 09/30/2024 10:22 PM Serum Sodium: 143 mmol/L (Using max of 137 mmol/L) at 09/30/2024 10:22 PM Total Bilirubin: 0.9 mg/dL (Using min of 1 mg/dL) at 09/30/2024 10:22 PM Serum Albumin: 3.7 g/dL (Using max of 3.5 g/dL) at 09/30/2024 10:22 PM INR(ratio): 1.2 at 09/30/2024 2:51 PM Age at listing (hypothetical): 54 years Sex: Female at 09/30/2024 10:22 PM Plan: - No fluid for paracentesis - Continue Coreg 3.125 mg BID - KYLIE - as above - HE - as above - Thrombocytopenia - Transfuse if actively bleeding and <50, or <20 - Continue Lactulose, Rifaximin - Start Thiamine 100 mg daily - I/O's, daily weights, 2g Na diet, daily protein intake of 1.2 to 1.5 g/kg and caloric intake of at least 35 Kcal/kg ideal body weight - Avoid NSAIDS/ASA, APAP <2 g/day if needed - Ensure scheduled follow up with GI outpatient Chronic Conditions #Meningioma - stable on CT, followed by AMAURY in past #HTN: continue Carvedilol 3.125mg BID with hold parameters; resume Amlodipine 5 mg daily if patienthas SBP >160 #Hypothyroidism - continue Levothyroxine 88mcg #VENUS - repeat labs, consider resuming iron PO #PUD: Continue PPI daily #HFpEF - EF 60 to 80% in 2020, grade II diastolic function noted, not in exacerbation, no chest pain noted, resume Coreg and hold Spironolactone #Depression/Anxiety/Possible Conversion Disorder/Bipolar - will hold home medications pending medication reconciliation (Oxcarbazepine 150 mg BID, Duloxetine 60 mg daily, Amitriptyline 50 mg nightly) #Headaches/Migraines - chronic, APAP PRN, encourage CPAP compliance #Seasonal Allergies - hold Cetirizine 10 mg daily, may exacerbate confusion #Vitamin D Deficiency - Vitamin D 1-25 pending #FERNANDEZ - CPAP when appropriate #Morbid Obesity - Weight 112 kg, complicates all aspects of care Fluids: PO and Bolus PRN DVT Ppx: PLOV Diet: 2g Na Code status: Full Code Discharge Planning: Anticipated discharge to: Other (specify) Anticipated discharge needs: None Family Contact: Judi Owens Follow-up: PCP Gastroenterology No future appointments. Electronically Signed by: Gucci Martines - 10/01/2024 - 2:16 PM Cosigned by Momo Akhtar MD at 10/01/2024 6:07 PM EDT Associated attestation - Momo Akhtar MD - 10/01/2024 6:07 PM EDT I saw and evaluated the patient with the medical/CAR BARN LABORER/PA student. I discussed the case with the medical/CAR BARN LABORER/PA student and agree with the findings and plan as documented. I personally performed the Examand Medical Decision Making. Very kind 50 yo with history of mild cognitive delay and MASLD cirrhosis decompensated by hepatic encephalopathy and portal hypertension presented with encephalopathy. Workup in the ER not suggestiveof secondary cause so suspect hepatic encephalopathy as etiology. Started lactulose and per nursingpatient starting to improve. Noted mild KYLIE on admission labs. Urine studies suggest high ADH stateso likely prerenal. Albumin 3.7 and no ascites so will bolus with 500ccs LR instead of albumin and repeat in am. * Progress Notes - Vincent Gonzalez - 10/01/2024 2:03 PM EDT Case Management Adult Initial Progress Note Andrew Oconnor 54 y.o. female CSN: [id number] Admission: 09/30/2024 2:02 PM Primary Problem: HE (hepatic encephalopathy) (CMS/HCC) Athletic Coordinator reviewed chart and spoke with patient State Guardian (Judi Owens) via phone to complete this Initial Case Management Assessment. PCP: Celsa Pereira, RN Emergency Contact: Extended Emergency Contact Information Primary Emergency Contact: Judi Owens Mobile Relation: Legal Guardian Insurance: Primary Visit Coverage Payer Plan Sponsor Code Group Number Group Name ARMEN AYERS [facility]/[place]/[facility] [id number] Primary Visit Coverage Subscriber Subscriber ID Subscriber Name Subscriber SSN Subscriber Address [id number] JESUS OCONNOR Dasha [id number] [place] [address] Secondary Visit Coverage Payer Plan Sponsor Code Group Number Group Name [facility] MEDICAID [facility] MEDICAID Secondary Visit Coverage Subscriber Subscriber ID Subscriber Name Subscriber SSN Subscriber Address [id number] ANDREW OCONNOR [id number] [address] [place] [address] Patient information: Primary Caregiver: Other (Comment) ([facility]) Support System: Other (Comment), Community ([facility]: [facility]) Daily Living Activities: Functional Status: Independent Living Arrangements: Senior Care Type of Residence: intermediate [facility] [address] [id number] Care Facility Name: [facility] Smoker in the Home?: No Current DME: Equipment Currently Used at Home: none Current DME Provider: Guardian denies HH, HD, Home infusion, 02 and DME at senior living. Income Information: Income Source: Disabled Income/Expense Information: Income meets expenses Current Resources Utilized: None Housing Circumstances-Z Codes: Housing Circumstances (select all that apply): Low Income (101-300% Federal Poverty Guidlines) - Z596 Patient Referred to: Financial Resources: Other (Comment) (Pt Guardian reported no Financial or Community Resources needs at this time,.) Anticipated Discharge Date: TBD Patient's Discharge Goal: To discharge back to [facility] Assistance Available at Discharge: Senior Care (Personal shelter: [facility]), State Guardianship,and [facility] Discharge Transport: Uber/ Wheelchair Van/ [facility] Follow Up Transport: [facility]/ [facility] Home Health / Home Infusion / Outpatient Dialysis Services: Current DME Provider: Guardian denies HH, HD, Home infusion, 02 and DME at senior living. Living Will/Advance Directive/Power of Physician Vice President /Guardian: Unable to assess: No Have you reviewed your Advance Directive and is it valid for this stay?: Yes Advance Directive: Patient has advance directive, copy not in chart Advance Directive not in Chart: Copy requested from other (Comment) Information Provided on Healthcare Directives: No Pre-existing DNR/DNI Order: No Patient Requests Assistance: No Additional Comments: SW introduced himself and CM role. Pt state guardian confirmed demographics, PCP, EC and insurance on face sheet are accurate. Pt lives at [address] [place] [address] at [facility]. Pt state guardian reported that pt is disabled. Pt state guardian reported that they Pt was independent to minimum assistance with their ADLs, ambulation and drives. Pt state guardian denies HH, O2, infusions, HD, and POA/LW. Preferred pharmacy- [facility]; Pt state guardian reported that pt will need uber/wheelchair van for transportation upon discharge.Pt state guardian reported that patient makes $1,000 monthly, which meets qualifications for 300%FPG. Pt state guardian reported no issues with Housing, Food, Utilities, Transportation or Safety issue s at this time. Pt attends [email or web address] Day number is . [facility] Phone number is . SW will continue to follow and assist as needed. Vincent Gonzalez MSW, COMPOSITION ROOFER * Progress Notes - Vincent Gonzalez - 10/01/2024 7:49 AM EDT Case Management Adult Progress Note Andrew Oconnor 54 y.o. female CSN: [id number] Admission: 09/30/2024 2:02 PM Primary Problem: HE (hepatic encephalopathy) (CMS/HCC) Anticipated Discharge Date: TBD Pt was admitted to the hospital due to hepatic encephalopathy. Plan of care reviewed with pt's careteam; and per MD, pt is not medically ready for discharge due to cortisol pending, patient is currently hypertensive, KYLIE, currently monitoring LFT's, and MD reported If COVID/NRP negative, would consider starting prophylactic antibiotics given mentation limits exam SW will follow up with Pt guardian to complete Initial assessment due to patient being a poor historian . SW will continue to follow-up with pt's MD and care team on their progress and discharge plan. Vincent Gonzalez, BENCH BORING MACHINE OPERATOR, COMPOSITION ROOFER * H&P - Leon Ramirez APRN, DNP - 09/30/2024 7:35 PM EDTAssociated Order(s): Consult to Hospital Medicine Consult to Hospital Medicine Consult performed by: Leon Ramirez APRN, OLVIN Consult ordered by: Edda Young DO Reason for consult: Admission Chief Complaint: Altered mental status History of Present Illness: 50 y/o F with Hx of BOWDEN Cirrhosis with history of HE, mild cognitive delay, childhood ALL, meningioma, migraines, conversion disorder (10/2020), hypothyroidism, HTN, PUD, Depression/Anxiety, FERNANDEZ, andMorbid Obesity who presents to ED from [facility] ([facility] on 09/30/24 with acute change in mentation. Her LKN is unknown (patient had missed couple days), but facility practice specialist states patient came in around 12pm on 09/30/24 and was noted to have worsening mentation, not following commands, having difficulties tracking staff, and having difficulties with ambulating. Patient resides at a personal fci in [place]. In ED, GCS 14 in triage. VS stable. Afebrile. Labs notable for glucose 65, WBC 3.48, HGB 13.5, PLT 100, pH 7.38, pCO2 43, lactate 1.1, INR 1.2 TSH 4.87, scr 1.36, CO2 21, AST 45, ALT 24, alk-phos 69,T bili 1.0, ammonia 149. UA negative. CXR with no acute finding. CTH demonstrating no acute intracranial hemorrhage or acute large territorial infarction. However does demonstrate age-appropriate cerebral atrophy with moderate scattered periventricular and deep matter change, 9 mm extra-axial lesion right side of the tuberculum sella and right paraclinoid region likely meningioma and stable, complete opacification of right maxillary sinus with additional fluid opacification bilateral ethmoid air cells right greater than left. CT AP with demonstrating cirrhosis, splenomegaly with portosystemicshunts. On exam, patient is AOx3. She is a poor historian. She is alert and awake. NIHSS difficult to perform due to patient inability to follow instructions; however, NIHSS approximated as 3 or 4. No clear focal deficits. Asterixis pronounced with hand extension. Speech is slurred and some difficulties with word findings noted. She endorses some right upper abdominal tenderness and dizziness on exam. She appears overall euvolemic to hypovolemic. She does complain of frontal headache. No nuchal rigidity of sensitivity to light noted. Patient has guardian unable to be reached by phone. Patient will be admitted to for further work up and management. Review of Systems Unable to perform ROS: Mental status change Past Medical History: Past Medical History[1] Past Surgical History: Surgical History[2] Social History[3] Family History: Family History[4] Allergies: Allergies[5] Medications: Current Medications[6] Objective: Last Recorded Vitals Blood pressure (!) 138/91, pulse 79, temperature 36.5 ??C (97.7 ??F), temperature source Oral, resp. rate 16, SpO2 95%. Physical Exam Vitals and nursing note reviewed. Constitutional: General: She is not in acute distress. Appearance: She is obese. She is not toxic-appearing. HENT: Head: Normocephalic and atraumatic. Right Ear: External ear normal. Left Ear: External ear normal. Nose: Nose normal. Mouth/Throat: Mouth: Mucous membranes are dry. Pharynx: Oropharynx is clear. Eyes: Extraocular Movements: Extraocular movements intact. Conjunctiva/sclera: Conjunctivae normal. Pupils: Pupils are equal, round, and reactive to light. Cardiovascular: Rate and Rhythm: Normal rate and regular rhythm. Pulses: Dorsalis pedis pulses are 1+ on the right side and 1+ on the left side. Posterior tibial pulses are 1+ on the right side and 1+ on the left side. Heart sounds: Normal heart sounds. Pulmonary: Effort: Pulmonary effort is normal. Breath sounds: Normal breath sounds. Abdominal: General: Abdomen is flat. Bowel sounds are normal. Palpations: Abdomen is soft. Tenderness: There is abdominal tenderness in the right upper quadrant. Musculoskeletal: Cervical back: Normal range of motion and neck supple. Right lower le+ Pitting Edema present. Left lower le+ Pitting Edema present. Feet: Right foot: Skin integrity: Skin integrity normal. Left foot: Skin integrity: Skin integrity normal. Skin: General: Skin is warm. Capillary Refill: Capillary refill takes less than 2 seconds. Neurological: General: No focal deficit present. Mental Status: She is confused. GCS: GCS eye subscore is 4. GCS verbal subscore is 4. GCS motor subscore is 6. Cranial Nerves: Dysarthria present. No facial asymmetry. Sensory: Sensation is intact. Motor: Tremor present. No pronator drift. Psychiatric: Behavior: Behavior is hyperactive. Cognition and Memory: Cognition is impaired. Labs reviewed - Relevant Results Results from last 7 days Lab Units 09/30/24 2222 WBC 10*3/uL 2.98* HEMOGLOBIN g/dL 13.3 HEMATOCRIT % 38.5 PLATELETS 10*3/uL 107* Results from last 7 days Lab Units 09/30/24 2222 SODIUM mmol/L 143 POTASSIUM mmol/L 4.4 CHLORIDE mmol/L 110* CO2 mmol/L 22 BUN mg/dL 13 CREATININE mg/dL 1.28* CALCIUM mg/dL 9.5 BILIRUBIN TOTAL mg/dL 0.9 ALKALINE PHOSPHATASE U/L 70 ALT U/L 25 AST U/L 49* GLUCOSE mg/dL 77 Results from last 7 days Lab Units 09/30/24 1451 INR 1.2* Results from last 7 days Lab Units 09/30/24 2222 MAGNESIUM mg/dL 2.2 Personally reviewed and agree with following findings CT Abdomen Pelvis w IV Contrast Result Date: 09/30/2024 1. 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 No acute abdominal or pelvic findings. CRITICAL RESULT: No. COMMUNICATION: Per this written report. Drafted by Arun Red MD on 09/30/2024 4:25 PM Final report signed by Arun Red MD on 09/30/2024 4:[address] Head wo IV Contrast Result Date: 09/30/2024 No acute intracranial hemorrhage or acute large territorial infarction. Age- appropriate cerebral atrophy with moderate scattered periventricular and deep matter change, nonspecific, potentially sequela of chronic microvascular ischemic disease. Redemonstration of 9 mm extra-axial lesion right side of the tuberculum sella and right paraclinoid region, previously characterized as probable meningioma, similar over the interval. Complete opacification right maxillary sinus with additional fluid opacification bilateral ethmoid air cells right greater than left. Additional small volume fluid versusretention cyst left sphenoidal sinus. Correlate for acute sinusitis. CRITICAL RESULT: No. COMMUNICATION: Per this written report. Drafted by Jeffery Jon MD on 09/30/2024 4:08 PM Final report signed by Jeffery Jon MD on 09/30/2024 4:16 PM XR Chest 1 View Result Date: 09/30/2024 No acute finding CRITICAL RESULT: No. COMMUNICATION: Per this written report. Drafted by Arun Red MD on 09/30/2024 3:35 PM Final report signed by Arun Red MD on 09/30/2024 3:35 PM Assessment/Plan Principal Problem: HE (hepatic encephalopathy) (CMS/HCC) Active Problems: Acute encephalopathy KYLIE (acute kidney injury) (CMS/HCC) Hypoglycemia 50 y/o F with Hx of BWODEN Cirrhosis with history of HE, mild cognitive delay, childhood ALL, meningioma, migraines, conversion disorder (10/2020), hypothyroidism, HTN, PUD, Depression/Anxiety, FERNANDEZ, andMorbid Obesity who presents to ED from [facility] on 09/30/24 with acute change in mentation. Assessment and Plan #Hepatic Encephalopathy - LKN: unknown, >2 days ago, noted to be altered around 12P on 09/30/24 - GCS 14 - NIHSS 3 or 4 - Etiology: - No known GI bleeding, will monitor - Could have infection, given sinusitis noted on CT - Mild KYLIE noted, no overt renal failure - May be dehydration given exam findings - Hypoglycemia noted on arrival, confusion did not improve with improvement - Medication non-compliance - Portal vein thrombus, less likely, will rule out - Symptoms: hyperactive, disorientation, confusion, asterixis, slurred speech, ataxia, - Grade: ?Grade I: Changes in behavior, mild confusion, slurred speech, disordered sleep - VS stable. Afebrile - Labs notable for glucose 65, WBC 3.48, HGB 13.5, PLT 100, pH 7.38, pCO2 43, lactate 1.1, INR 1.2 TSH 4.87, scr 1.36, CO2 21, AST 45, ALT 24, alk-phos 69, T bili 1.0, ammonia 149. - UA negative, UDS negative - CXR with no acute finding - CTH demonstrating no acute intracranial hemorrhage or acute large territorial infarction. Howeverdoes demonstrate age-appropriate cerebral atrophy with moderate scattered periventricular and deep matter change, 9 mm extra-axial lesion right side of the tuberculum sella and right paraclinoid region likely meningioma and stable, complete opacification of right maxillary sinus with additional fluid opacification bilateral ethmoid air cells right greater than left - CT AP with demonstrating cirrhosis, splenomegaly with portosystemic shunts Plan - Will rule out other causes of encephalopathy - Urine alcohol pending - Infectious work up (NRP, COVID, BCX1) - AFP pending - Liver screen to rule out PVT - Correct reversible precipitating factor: - Start Lactulose 20g TID (should be titrated to achieve two to three soft stools per day), continue home Rifaximin 550mg BID - One time Lactulose 200g via enema once - Nutrition - Dysphagia screen - Neuro checks q4 hr x24 - Delirium measures - Fall precautions - Avoid anticholinergics, antihistamines, benzodiazepines, and opioids if able #KDIGO Stage 1 KYLIE - Etiology: unclear, needs further work up - SCr 1.28 (H), baseline: 0.8 to 1 - K: 4.4, M.2, Phos: 3.5 - Na: 143, bicarb: 22 - UA: pH: 7.0, Protein: Negative, Ketones: Negative, Leuks: Negative, Nitrites: Negative, WBC: 0 - 5 - FENA 0.8 Plan - Will continue Coreg given patient hypertensive - Encourage PO intake - Will hold spirolactone for now - Bladder scan once - Avoid nephrotoxins - Renal dose medications to GFR - Strict I&Os - Repeat BMP daily #Hypoglycemia - FSBG 65 on arrival - Could be related to confusion; however, confusion did not improve with improvement in FSBG - On previous admission, Endocrine evaluated with 72hr fast, cortisol, TSH, and sulfonylurea panel which was negative/normal - Last A1c 4.8 - Etiology - most likely 2/2 poor intake given dehydration on exam and altered mentation Plan - AM cortisol pending - Will consider MIVF D5NS at 50 - 125 ml/hr if no PO intake - Will consider further work up if reoccurring or persistent #Sinusitis - Noted on CT imaging - Most likely viral etiology; unclear when symptoms started Plan - If COVID/NRP negative, would consider starting prophylactic antibiotics given mentation limits exam #Decompensated BOWDEN Liver Cirrhosis #Thrombocytopenia - HCC: no lesions on CT, AFP unknown - EV: Last EGD unknown, continue Coreg - HE: previous hx, on Rifaximin, unclear if taking lactulose - Ascites: No Hx, on spironolactone - SBP: NTD MELD-Na: MELD 3.0: 12 at 09/30/2024 10:22 PM MELD-Na: 11 at 09/30/2024 10:22 PM Calculated from: Serum Creatinine: 1.28 mg/dL at 09/30/2024 10:22 PM Serum Sodium: 143 mmol/L (Using max of 137 mmol/L) at 09/30/2024 10:22 PM Total Bilirubin: 0.9 mg/dL (Using min of 1 mg/dL) at 09/30/2024 10:22 PM Serum Albumin: 3.7 g/dL (Using max of 3.5 g/dL) at 09/30/2024 10:22 PM INR(ratio): 1.2 at 09/30/2024 2:51 PM Age at listing (hypothetical): 54 years Sex: Female at 09/30/2024 10:22 PM Plan - No fluid for paracentesis - Continue Coreg 3.125 mg BID - KYLIE - as above - HE - as above - Thrombocytopenia - Transfuse if actively bleeding and <50, or <20 - Continue Lactulose, Rifaximin - Start Thiamine 100 mg daily - I/O's, daily weights, 2g Na diet, daily protein intake of 1.2 to 1.5 g/kg and caloric intake of at least 35 Kcal/kg ideal body weight - Doppler as above - Monitor LFT's daily - Avoid NSAIDS/ASA, APAP <2 g/day if needed - Ensure scheduled follow up with GI outpatient Chronic Stable #Meningioma - stable on CTH, followed by [facility] in past #HTN: continue Carvedilol 3.125mg BID with hold parameters; resume Amlodipine 5 mg daily if patienthas SBP >160 #Hypothyroidism - continue Levothyroxine 88mcg #VENUS - repeat labs, consider resuming iron PO #PUD: Continue PPI daily #HFpEF - EF 60 to 80% in 2020, grade II diastolic function noted, not in exacerbation, no chest pain noted, resume Coreg and hold Spironolactone #Depression/Anxiety/Possible Conversion Disorder/Bipolar? - will hold home medications pending medication reconciliation (Oxcarbazepine 150 mg BID, Duloxetine 60 mg daily, Amitriptyline 50 mg nightly?), may need psych evaluation at some point during admission #Headaches/Migraines - chronic, APAP PRN, encourage CPAP compliance when mentation improves #Seasonal Allergies - hold Cetirizine 10 mg daily, may exacerbate confusion #Vitamin D Deficiency - Vitamin D 1-25 pending #FERNANDEZ - CPAP when appropriate #Morbid Obesity - Weight 112 kg, pending BMI, complicates all aspects of care Fluids: PO trial DVT: pLov Diet:Adult diet Diet texture: Soft & Bite Sized 6; Sodium restriction: 2,000 mg Na Code status - Full Code Family contact - Extended Emergency Contact Information Primary Emergency Contact: JuditJeannie Mobile Relation: Legal Guardian Secondary Emergency Contact: SamanthaJuly Relation: Legal Guardian Preferred language: Estonian Network Desktop Support Specialist needed? No Leon Ramirez RIVETING MACHINE OPERATOR TAPE CONTROL [facility] Medicine Pager [phone] [1] Past Medical History: Diagnosis Date ALL (acute lymphoblastic leukemia of infant) ([facility]/HCC) Stroke ([facility]) [2] Past Surgical History: Procedure Laterality Date APPENDECTOMY N/A SECTION, LOW TRANSVERSE N/A CHOLECYSTECTOMY N/A [3] Social History Tobacco Use Smoking status: Never Smokeless tobacco: Never Vaping Use Vaping status: Never Used Substance Use Topics Alcohol use: Never Drug use: Never [4] No family history on file. [5] Allergies Allergen Reactions Augmentin [Amoxicillin-Pot Clavulanate] Shortness of breath and Other - please document in the comment field SHAKES Buspirone Other - please document in the comment field and Unknown - Patient states they do not know rxn details uncontrollable movements CAUSES NAUSEA AND SHAKES Sulfa Drugs Unknown - Patient states they do not know rxn details [6] Current Facility-Administered Medications: acetaminophen (Tylenol) tablet 650 mg, 650 mg, Oral, q8h PRN, Leon Ramirez APRN, DNP [START ON 10/01/2024] carvedilol (Coreg) tablet 3.125 mg, 3.125 mg, Oral, BID with meals, Leon Ramirez APRN, DNP glucose (Glutose) 40 % oral gel 15-30 grams of glucose, 15-30 grams of glucose, Sublingual, q15 minPRN OR dextrose 50 % solution 12.5-25 g, 12.5-25 g, Intravenous, q15 min PRN, 25 g at 09/30/24 1458 OR glucagon (human recombinant) injection 1 mg, 1 mg, Intramuscular, q15 min PRN, Jens Mohan DO enoxaparin (Lovenox) syringe 40 mg, 40 mg, Subcutaneous, Daily, Leon Ramirez APRN, DNP lactulose (Chronulac) 10 GM/15ML solution 20 g, 20 g, Oral, TID, Leon Ramirez APRN, DNP, 20 g at 09/30/24 2203 [START ON 10/01/2024] levothyroxine (Synthroid, Levoxyl) tablet 88 mcg, 88 mcg, Oral, q AM, Leon Ramirez APRN, DNP melatonin tablet 3 mg, 3 mg, Oral, Nightly PRN, Leon Ramirez APRN, DNP ondansetron ODT (Zofran-ODT) disintegrating tablet 4 mg, 4 mg, Oral, q6h PRN OR ondansetron (Zofran) injection 4 mg, 4 mg, Intravenous, q6h PRN OR ondansetron (Zofran) 4 MG/5ML solution 4 mg,4 mg, Oral, q6h PRN, Leon Ramirez APRN, DNP [START ON 10/01/2024] pantoprazole (Protonix) EC tablet 40 mg, 40 mg, Oral, Daily, Leon Ramirez APRN, DNP rifAXIMin (Xifaxan) tablet 550 mg, 550 mg, Oral, BID, Leon Ramirez APRN, DNP, 550 mg at 09/30/24 2203 Insert peripheral IV, , , Once AND Saline lock IV, , , Once AND sodium chloride 0.9 % flush10 mL, 10 mL, Intravenous, q12h AND sodium chloride 0.9 % flush 10 mL, 10 mL, Intravenous, PRN,Leon Ramirez APRN, DNP [START ON 10/01/2024] thiamine (Vitamin B-1) tablet 100 mg, 100 mg, Oral, Daily, Leon Ramirez APRN, DNP Current Outpatient Medications: acetaminophen (Tylenol) 325 MG tablet, Take 1 tablet (325 mg total) by mouth every 6 (six) hours ifneeded for headaches., Disp: 100 tablet, Rfl: 0 amitriptyline (Elavil) 50 MG tablet, Take 1 tablet (50 mg total) by mouth every night., Disp: 30 tablet, Rfl: 11 carvedilol (Coreg) 3.125 MG tablet, Take 1 tablet (3.125 mg total) by mouth 2 (two) times a day with meals., Disp: 60 tablet, Rfl: 11 DULoxetine (Cymbalta) [address] capsule, Take 1 capsule (30 mg total) by mouth 1 (one) time each day. Do not crush or chew., Disp: 30 capsule, Rfl: 11 ferrous sulfate 324 (65 Fe) MG EC tablet, Take 1 tablet (324 mg total) by mouth every other day. Donot crush, chew, or split., Disp: 30 tablet, Rfl: 3 hydrOXYzine pamoate (Vistaril) 25 MG capsule, Take 1 capsule (25 mg total) by mouth 4 (four) times a day if needed for anxiety for up to 10 days., Disp: 30 capsule, Rfl: 0 levothyroxine (Synthroid, Levoxyl) 100 MCG tablet, Take 1 tablet (100 mcg total) by mouth 1 (one) time each day in the morning., Disp: 30 tablet, Rfl: 11 lisinopril 10 MG tablet, Take 1 tablet (10 mg total) by mouth 1 (one) time each day., Disp: 30 tablet, Rfl: 11 rifAXIMin (Xifaxan) 550 MG tablet, Take 550 mg by mouth 2 (two) times a day., Disp: , Rfl: * ED Provider Notes - Jens Mohan DO - 09/30/2024 2:02 PM EDT Images from the original note were not included. 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 Staff at [facility] reports her baseline is Aox3 with mostly independent functionality (feeding, walking, etc), but this morning noticed Andrew was unable to walk or respond appropriately to questions/commands.Andrew is able to answer a few questions, reporting that she is primarily dizzy and weak. She denies headache, chest pain, and abdominal pain. Otherwise, Andrew is unable to provide any additional history or concerns and therefor history is limited due to acuity of condition. She has a new guardian/power of insurance attorney on file. Updated medication list includes: [id number], Hydroxyzine 25MG, Carvedilol 3.125MG, Lisinopril 10MG, Levothyroxine 100MG, Cymbalta 30MG. History provided by: Patient, medical records and fpc History limited by: Acuity of condition and mental status change Patient History Past Medical History[1] Surgical History[2] Family History[3] Social History[4] Allergies: Allergies[5] Physical Exam ED Triage Vitals Temp Pulse Resp BP -- -- -- -- SpO2 Temp src Heart Rate Source Patient Position -- -- -- -- BP Location FiO2 (%) -- -- Physical Exam Vitals and nursing note reviewed. Constitutional: General: She is not in acute distress. Appearance: She is obese. She is not ill-appearing. HENT: Head: Normocephalic and atraumatic. Comments: No obvious deformities, trauma, hematomas, lacerations of scalp/head Nose: Nose normal. No congestion or rhinorrhea. Mouth/Throat: Mouth: Mucous membranes are moist. Eyes: General: No scleral icterus. Pupils: Pupils are equal, round, and reactive to light. Comments: Unable to perform extraocular movement examination due to difficulty following commands. Cardiovascular: Rate and Rhythm: Normal rate and regular rhythm. Pulses: Normal pulses. Heart sounds: No murmur heard. Pulmonary: Effort: Pulmonary effort is normal. No respiratory distress. Breath sounds: Normal breath sounds. Abdominal: General: Abdomen is flat. Palpations: There is no mass. Tenderness: There is abdominal tenderness (moderate RLQ ttp). There is no guarding or rebound. Musculoskeletal: General: No swelling. Cervical back: Normal range of motion. No tenderness. Right lower leg: No edema. Left lower leg: No edema. Lymphadenopathy: Cervical: No cervical adenopathy. Skin: General: Skin is warm. Coloration: Skin is not jaundiced. Findings: No erythema or rash. Neurological: Mental Status: She is alert. Comments: Oriented to person but not place or time. Global weakness: 2/5 strength bilaterally in both upper and lower extremities. Sack Filler strength 5/5 bilaterally. Sensation of distal extremities intact bilaterally. No facial droop or obvious focal deficit. Nathalie Coma Scale Score: 15 ED Course & MDM - Assessment: 54 y.o. female presents to ED via EMS for confusion, weakness, and AMS. 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 This complicates the clinical picture because it Comorbidities: may be exacerbating symptoms and complicates the clinical workup Differential Diagnosis: ACS, stroke, encephalopathy, infectious process, thyroid derangement, hypoglycemia, electrolyte derangement. In order to fully explore the differential diagnosis the following treatments and tests were ordered: ED Medication Administration from 09/30/2024 1402 to 09/30/2024 2018 Date/Time Order Dose Route Action 09/30/2024 1458 EDT dextrose 50 % solution 12.5-25 g 25 g Intravenous Given 09/30/2024 1458 EDT glucagon (human recombinant) injection 1 mg -- Intramuscular See Alternative 09/30/2024 1458 EDT glucose (Glutose) 40 % oral gel 15-30 grams of glucose -- Sublingual See Alternative 09/30/2024 1553 EDT iohexol (OMNIPaque) 300 MG/ML injection 100 mL 100 mL Intravenous Given All Other Orders Ordered Status Ordering Provider 09/30/24 2018 CBC and Differential Morning draw Final result LEON RAMIREZ 09/30/24 2018 Comprehensive metabolic panel Morning draw Final result OSMANLEON PISANO 09/30/24 2018 Magnesium, Plasma Morning draw Final result LEON RAMIREZ 09/30/24 2018 Phosphorus Morning draw Final result LEON RAMIREZ 09/30/24 2018 Vital Signs Every 4 hours Placed in And Linked Group Acknowledged LEON RAMIREZ 09/30/242017 Pulse Oximetry Every 4 hours Placed in And Linked Group Acknowledged LEON RAMIREZ 09/30/24 2018 Neuro checks Every 4 hours Acknowledged MINGUA, LEON 09/30/242017 Intake and output Every 6 hours Acknowledged LEON RAMIREZ 09/30/242017 Okay To Give Nicotine Replacement Until discontinued Acknowledged LEON RAMIREZ 09/30/242017 Nurse to complete Until discontinued Comments: -Reorient communication -Record location, date, and time on the whiteboard -Ensure working clock on the wall and in view -Ensure lights are on and window shades/drapes open from 0800 to 2000 -Ensure hearing aids present and available by 0800 (if applicable) -Ensure eyeglasses are present and available by 0800 (if applicable) -Ensure dentures are in by 0800 (if applicable) -Ensure lights and TV are off after 2099 -Offer earplugs if noise interfering with sleep (if available) -Offer fluids q2h between 0800 & 2100 -Assess daily by 1200 if cardiac telemetry can be discontinued -Facilitate family visit or phone call daily -Notify primary team of uncontrolled pain if applicable -Participate in maximum level of mobility as directed by PT/OT -Offer warm beverage (milk or decaffeinated tea) at 2100 Acknowledged LEON RAMIREZ 09/30/242017 Provide patient education materials Once Comments: RN to provide delirium material from patient education tab to Family. Completed LEON RAMIREZ 09/30/242017 Diet effective now Canceled LEON RAMIREZ 09/30/242017 Dysphagia screen Once Acknowledged LEON RAMIREZ 09/30/242017 Aspiration precautions Until discontinued Acknowledged LEON RAMIREZ 09/30/242017 Fall precautions Until discontinued Acknowledged LEON RAMIREZ 09/30/242017 Nursing oxygen orders - 92% or more Once Comments: Maintain O2 sat greater than 92%; Call MD for hypoxia or an increased O2 requirement Acknowledged LEON RAMIREZ 09/30/242017 Nursing oxygen orders - wean Once Comments: Wean oxygen to maintain saturations more than 92% Acknowledged LEON RAMIREZ 09/30/242017 Incentive spirometry Until discontinued Comments: Encourage 10 breathes on Incentive Spirometer every hour while awake. Acknowledged LEON RAMIREZ 09/30/242017 Admit to inpatient Once Completed LEON RAMIREZ 09/30/242017 Mobility Orders Until discontinued Acknowledged LEON RAMIREZ 09/30/242017 Notify physician (specify parameters) Until discontinued Acknowledged LEON RAMIREZ 09/30/242017 Insert peripheral IV Once Placed in And Linked Group Acknowledged LEON RAMIREZ 09/30/242017 Saline lock IV Once Placed in And Linked Group Acknowledged LEON RAMIREZ 09/30/242017 Full code Continuous Acknowledged LEON RAMIREZ 09/30/24 1903 Consult to Hospital Medicine Once Specialty: Internal Medicine Provider: (Not yet assigned) Completed JENS MOHAN Luis 09/30/24 1858 Urinalysis Microscopic Examination Once Final result JENS MOHAN 09/30/24 1716 POCT glucose meter PROCEDURE ONCE Final result EDDA YOUNG Kath 09/30/24 1609 Troponin T, High Sensitivity, 2 Hour, Plasma PROCEDURE ONCE Final result JENS MOHAN Luis 09/30/24 1610 Prepare Leukocyte Reduced RBC Once Preliminary result JENS MOHAN S 09/30/24 1609 Once Canceled JENS MOHAN S 09/30/24 1516 POCT glucose meter PROCEDURE ONCE Final result POCT, GENERIC PROVIDER 09/30/24 1503 Ammonia STAT Final result JENS MOHAN 09/30/24 1453 Notify Provider Until discontinued Acknowledged JENS MOHAN Luis 09/30/24 1453 For POC BG 71 - 89 mg/dL Until discontinued Comments: If patient is able to take PO (does not have NPO order) give 15 -20 gm of carbohydrate plus protein snack. Options include: 3 lisbet crackers (15 gm); 2 pkg. saltine crackers (16 gm); 4 oz cup applesauce (17 gm); ?? oz peanut butter,1 container (5 gm); 1 cup regular pudding (21 gm); or 1 cup sugar free pudding (10 gm). Recheck POC BG 30 minutes after administration and follow hypoglycemia prevention protocol. Acknowledged JENS MOHAN Luis 09/30/24 1453 For POC BG 51 - 70 mg/dL Until discontinued Comments: If patient is able to take PO (does not have NPO order) give 15gm of fast acting carbohydrates. Options include 4 oz of juice (apple juice preferred in renal patients), 4 oz non-diet soda or 8 oz milk. Recheck POC BG 15 minutes after administration and retreat if necessary until POC BG is> 100. Acknowledged JENS MOHAN Luis 09/30/24 1453 For POC BG less than or equal to 50 mg/dL Until discontinued Comments: After patient receives 25gm Dextrose and patient alert and can take PO (does not have NPOorder) give 30gm fast acting carbohydrates. Options include 8 oz of juice (apple juice preferred inrenal patients), 8 oz non-diet soda or 16 oz milk. Recheck POC BG 15 minutes after administration and repeat if necessary until POC BG >100. Acknowledged MARQUESJENS Luis 09/30/24 1448 XR Chest 1 View One time imaging Final result JENS MOHAN Luis 09/30/24 1432 Hepatitis C Antibody - ED Once Final result JENS MOHAN Luis 09/30/24 1432 ED Protocol - HIV 1/2 Antibody/Antigen Screen Once Final result MARQUESVLADIMIRJENS S 09/30/24 1432 PT-INR STAT Final result JENS MOHAN Luis 09/30/24 1432 ED HIV 1/2 Antibody/Antigen Screen w/Reflex to HIV 1/2 Differentiation PROCEDURE ONCE Final result MARQUESVLADIMIRJENS S 09/30/24 1432 Lactic acid, venous STAT Final result JENS MOHAN Luis 09/30/[address] Abdomen Pelvis w IV Contrast Once Final result JENS MOHAN Luis 09/30/24 1432 Type and screen Start now Final result JENS MOHAN Luis 09/30/24 1432 Urinalysis with reflex microscopic AND reflex culture (IF UTI SUSPECTED) STAT Final result JENS MOHAN Luis 09/30/24 1432 Drug abuse screen STAT Final result JENS MOHAN Luis 09/30/24 1432 Blood gas panel, venous STAT Final result MARQUESVLADIMIRJENS S 09/30/24 1432 Troponin now and 120 min STAT Final result JENS MOHAN Luis 09/30/24 1432 Thyroid Stimulating Hormone, Plasma STAT Final result JENS MOHAN Luis 09/30/24 1432 Free T4, Plasma STAT Final result MARQUESVLADIMIRJENS S 09/30/24 1432 EKG now - STAT (adult) Once Final result JENS MOHAN 09/30/[address] Head wo IV Contrast Once Final result MARQUESVLADIMIRJENS S 09/30/24 1432 Urinalysis with reflex microscopic (Culture NOT Included) PROCEDURE ONCE Final result JENS MOHAN 09/30/24 1432 Urine Garcia Panel PROCEDURE ONCE Final result JENS MOHAN 09/30/24 1432 CBC STAT Final result JENS MOHAN 09/30/24 1432 CMP STAT Final result JENS MOHAN 09/30/24 1432 Magnesium STAT Final result JENS MOHAN 09/30/24 1432 Lipase STAT Final result JENS MOHAN 09/30/24 1413 POCT glucose meter PROCEDURE ONCE Final result POCT, GENERIC PROVIDER 09/30/24 1453 POCT Glucose As needed Comments: Recheck POC BG 15 minutes after any hypoglycemia treatment. Continue until POC BG is greater than 100 mg/dL. Acknowledged JENS MOHAN Social Determinates of Health Risks (including Economic Stability, Education and level of understanding, Healthcare access and quality and concerning social factors): Lack of transportation and intellectual disability MDM: Andrew Oconnor is a 54 y.o. female with a past medical history of cirrhosis, hypertension, intellectual disability who presented to the emergency department with confusion and altered mental status.On arrival, patient was hemodynamically stable with unremarkable vital signs. UA showed no evidenceof infection, respiratory panels were negative. Magnesium normal, phosphorus normal, CBC showed no leukocytosis. Point of care glucose was normal. Ammonia was elevated at 149, initial troponin 11 with no significant delta. Urine drug screen negative. UA showed no evidence of infection. Respiratory panels were negative. Magnesium normal, phosphorus normal. CBC showed no leukocytosis. CMP was unrema rkable. CT head and ultrasound of the abdomen was obtained. CT head showed no acute intracranial process which was reviewed and interpreted by myself. CT abdomen pelvis showed no acute intra-abdominal process which was reviewed and interpreted by myself. Patient had no evidence of ascites on exam therefore no palpable fluid was able to be done to evaluate for SBP. Chest x-ray was reviewed and interpreted by myself and showed no acute pneumothorax, pleural effusion or other acute cardiopulmonaryprocess. EKG was reviewed and interpreted by myself and showed normal sinus rhythm at 72 beats per minute without acute ST or T-wave changes concerning for ischemia. At this time, given that patient was still not back at her baseline, I felt that likely patient with hepatic encephalopathy. Patient was ultimately admitted to hospital medicine. Ultimately, this patient was Was admitted (Admission) The primary encounter diagnosis was Acute encephalopathy. Diagnoses of HE (hepatic encephalopathy) (CMS/HCC), Thrombocytopenia (CMS/HCC), Dysarthria, and Chest pain, unspecified type werealso pertinent to this visit.. Patient believed to require admission for the listed diagnoses. The Internal Medicine service was consulted for admission and was agreeable to admit to Acute Floor (Med/Surg). ED Prescriptions None Nitesh Vincent MS4 I, Jens Mohan, personally verified the history, examined the patient, discussed with the student and resident and performed the medical decision making. I agree with the documentation and plan of care. 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 [4] Tobacco Use Smoking status: Never Smokeless tobacco: Never Vaping Use Vaping status: Never Used Substance Use Topics Alcohol use: Never Drug use: Never [5] Allergies Allergen Reactions Augmentin [Amoxicillin-Pot Clavulanate] Shortness of breath and Other - please document in the comment field SHAKES Buspirone Other - please document in the comment field and Unknown - Patient states they do not know rxn details uncontrollable movements CAUSES NAUSEA AND SHAKES Sulfa Drugs Unknown - Patient states they do not know rxn details Jens Mohan DO Resident 10/05/24 0729 Cosigned by Edda Young DO at 10/06/2024 9:17 AM EDT Associated attestation - Edda Young DO - 10/06/2024 9:17 AM EDT I saw and evaluated the patient with the resident/fellow. I discussed the case with the resident/fellow and agree with the findings and plan as documented. * ED Triage Notes - Gloria Tracy RN - 09/30/2024 2:02 PM EDT Pt arrives via EMS from an [facility] [place] for altered mental status. EMS state were called d/t altered mental status unknown last known well. Letha, personalized living manager nurse at facility states pt has missed a couple of days at day center and then came today around 12pm and was noted to have worsening mentation, not able to follow commands well, not able to track staff, difficulty ambulating. Pt stays in personal fci in [place]. Uknown LKN, GCS 14 in triage. FSBS 65. documented in this encounter Plan of Treatment Pending Results Name Type Priority Associated Diagnoses Date /Time Prepare Leukocyte Reduced RBC Blood Bank STAT 09/30/2024 4:10 PM EDT Scheduled Referrals Name Type Priority Associated Diagnoses Orde r Schedule Discharge Ambulatory referral to [facility] Outpatient Referral Routine HE (hepatic encephalopathy) (CMS/HCC) 1 Occurrences starting 10/17/2024 until 04/20/2026 Discharge Ambulatory referral to [facility] Outpatient Referral Routine Acute encephalopathy 1 Occurrences starting 10/20/2024 until 04/23/2026 documented as of this encounter Procedures Procedure Name Priority Date/Time Associated Diagnosis Comments US EXTREMITY LIMITED MSK OR SOFT TISSUE Routine 10/18/2024 11:21 AM EDT CBC W/O DIFFERENTIAL Routine 10/17/2024 4:53 AM EDT COMPREHENSIVE METABOLIC PANEL, PLASMA Routine 10/17/2024 4:53 AM EDT US HEAD NECK SOFT TISSUE Routine 10/11/2024 10:26 AM EDT COMPREHENSIVE METABOLIC PANEL, PLASMA Routine 10/07/2024 4:46 AM EDT COMPREHENSIVE METABOLIC PANEL, PLASMA Routine 10/05/2024 7:04 PM EDT POCT GLUCOSE METER UNSOLICITED RESULTS Routine 10/05/2024 3:05 AM EDT CBC WITH AUTO DIFFERENTIAL Routine 10/04/2024 5:20 AM EDT PHOSPHORUS, PLASMA Routine 10/04/2024 5: 20 AM EDT MAGNESIUM, PLASMA Routine 10/04/2024 5:2 0 AM EDT BLOOD GAS PANEL, VENOUS STAT 10/05/19 5:20 AM EDT COMPREHENSIVE METABOLIC PANEL, PLASMA Routine 10/04/2024 5:[address] ANGIO NECK STAT 10/03/2024 1:[address] HEAD WO IV CONTRAST STAT 1:[address] ANGIO HEAD STAT 10/03/2024 1:15 AM EDT ECG ADULT STAT 10/03/2024 12:47 AM EDT CRITICAL CARE Routine 10/03/2024 12:45 AM EDT Acute encephalopathy HE (hepatic encephalopathy) (CMS/HCC) Thrombocytopenia (CMS/HCC) Dysarthria Chest pain, unspecified type POCT ISTAT BLOOD GAS VENOUS Routine 10/03/2024 12:44 AM EDT EXTRA TUBE LIGHT BLUE TOP Routine 10/03/2024 12:42 AM EDT EXTRA TUBES Routine 10/03/2024 12:42 AM EDT CBC WITH AUTO DIFFERENTIAL Routine 10/03/2024 12:42 AM EDT PHOSPHORUS, PLASMA Routine 10/03/2024 12 :42 AM EDT MAGNESIUM, PLASMA Routine 10/03/2024 12: 42 AM EDT COMPREHENSIVE METABOLIC PANEL, PLASMA Routine 10/03/2024 12:42 AM EDT POCT GLUCOSE METER UNSOLICITED RESULTS Routine 10/03/2024 12:24 AM EDT POCT GLUCOSE METER UNSOLICITED RESULTS Routine 10/02/2024 11:56 PM EDT POCT GLUCOSE METER UNSOLICITED RESULTS Routine 10/02/2024 6:29 PM EDT POCT GLUCOSE METER UNSOLICITED RESULTS Routine 10/02/2024 6:08 PM EDT POCT GLUCOSE METER UNSOLICITED RESULTS Routine 10/02/2024 12:16 PM EDT POCT GLUCOSE METER UNSOLICITED RESULTS Routine 10/02/2024 6:16 AM EDT POCT GLUCOSE METER UNSOLICITED RESULTS Routine 10/02/2024 5:37 AM EDT POCT GLUCOSE METER UNSOLICITED RESULTS Routine 10/02/2024 1:03 AM EDT POCT GLUCOSE METER UNSOLICITED RESULTS Routine 10/02/2024 12:27 AM EDT POCT GLUCOSE METER UNSOLICITED RESULTS Routine 10/02/2024 12:02 AM EDT CBC W/O DIFFERENTIAL Routine 10/01/2024 5:50 PM EDT COMPREHENSIVE METABOLIC PANEL, PLASMA Routine 10/01/2024 5:50 PM EDT MULTI DRUG RESISTANCE TEST STAT 10/01/2024 11:36 AM EDT POCT GLUCOSE METER UNSOLICITED RESULTS Routine 10/01/2024 11:32 AM EDT POCT GLUCOSE METER UNSOLICITED RESULTS Routine 10/01/2024 8:35 AM EDT POCT GLUCOSE METER UNSOLICITED RESULTS Routine 10/01/2024 7:57 AM EDT POCT GLUCOSE METER UNSOLICITED RESULTS Routine 10/01/2024 6:13 AM EDT FOLATE, SERUM Routine 10/01/2024 5:53 AM EDT ZINC, SERUM OR PLASMA (SO) Routine 10/01/2024 4:40 AM EDT CBC WITH AUTO DIFFERENTIAL Routine 10/01/2024 3:52 AM EDT ALCOHOL, URINE Routine 10/01/2024 2:50 AM EDT BLOOD CULTURE (AEROBIC/ANAEROBIC SET) Routine 10/01/2024 12:40 AM EDT OXCARBAZEPINE METABOLITE, SERUM (SO) Routine 09/30/2024 10:22 PM EDT ALPHA FETOPROTEIN, SERUM Routine 09/30/2024 10:22 PM EDT ACUTE HEPATITIS PANEL Routine 09/30/2024 10:22 PM EDT VITAMIN D, 1, 25-DIHYDROXY Routine 09/30/2024 10:22 PM EDT CBC WITH AUTO DIFFERENTIAL Routine 09/30/2024 10:22 PM EDT PHOSPHORUS, PLASMA Routine 09/30/2024 10 :22 PM EDT MAGNESIUM, PLASMA Routine 09/30/2024 10: 22 PM EDT FERRITIN, SERUM Routine 09/30/2024 10:22 PM EDT VITAMIN B12, SERUM Routine 09/30/2024 10 :22 PM EDT CORTISOL Routine 09/30/2024 10:22 PM EDT COMPREHENSIVE METABOLIC PANEL, PLASMA Routine 09/30/2024 10:22 PM EDT SODIUM, URINE, RANDOM Routine 09/30/2024 10:12 PM EDT OSMOLALITY, URINE Routine 09/30/2024 10: 12 PM EDT CREATININE, RANDOM URINE Routine 09/30/2024 10:12 PM EDT SARS COV-2/COVID-19 BY PCR - RAPID Routine 09/30/2024 10:09 PM EDT NASOPHARYNGEAL RESPIRATORY PANEL Routine 09/30/2024 10:09 PM EDT US ABDOMEN DOPPLER LIMITED Routine 09/30/2024 9:44 PM EDT URINALYSIS WITH REFLEX MICROSCOPIC AND CULTURE STAT 09/30/2024 6:44 PM EDT URINE GARCIA PANEL STAT 09/30/2024 6:44 PM EDT URINALYSIS MICROSCOPIC FOR UA REFLEX STAT 09/30/2024 6:44 PM EDT DRUG ABUSE SCREEN, URINE STAT 09/30/2024 6:44 PM EDT URINALYSIS WITH REFLEX MICROSCOPIC STAT 09/30/2024 6:44 PM EDT TROPONIN T, HIGH SENSITIVITY, 2 HOUR, PLASMA Timed 09/30/2024 5:25 PM EDT AMMONIA, PLASMA STAT 09/30/2024 5:25 PM EDT POCT GLUCOSE METER UNSOLICITED RESULTS Routine 09/30/2024 5:16 PM EDT PREPARE RBC STAT 09/30/2024 4:[address] ABDOMEN PELVIS W IV CONTRAST STAT 09/30/2024 4:[address] HEAD WO IV CONTRAST STAT 4:06 PM EDT XR CHEST 1 VIEW STAT 09/30/2024 3:28 PM EDT POCT GLUCOSE METER UNSOLICITED RESULTS Routine 09/30/2024 3:16 PM EDT ED HIV 1/2 ANTIBODY/ANTIGEN SCREEN WITH REFLEX TO HIV I/II DIFFERENTIATION STAT 09/30/2024 2:51 PM EDT ED PROTOCOL HIV 1/2 ANTIBODY/ANTIGEN SCREEN W/REFLEX TO HIV 1/2 ANTIBODY DIFFERENTIATION STAT 09/30/2024 2:51 PM EDT TROPONIN T, HIGH SENSITIVITY, 0 HOUR, PLASMA, REFLEX TO 2 HOUR STAT 09/30/2024 2:51 PM EDT IRON & TOTAL IRON BINDING CAPACITY, PLASMA (INCLUDES TRANSFERRIN) Add-On 09/30/2024 2:51 PM EDT PROTHROMBIN TIME(PT) / INR STAT 09/30/2024 2:51 PM EDT TSH STAT 09/30/2024 2:51 PM EDT FREE T4, PLASMA STAT 09/30/2024 2:51 PM EDT PHOSPHORUS, PLASMA Add-On 09/30/2024 2: 51 PM EDT OSMOLALITY, SERUM Add-On 09/30/2024 2:5 1 PM EDT MAGNESIUM, PLASMA STAT 09/30/2024 2:5 1 PM EDT LIPASE, PLASMA STAT 09/30/2024 2:51 PM EDT COMPREHENSIVE METABOLIC PANEL, PLASMA STAT 09/30/2024 2:51 PM EDT LACTATE, VENOUS STAT 09/30/2024 2:50 PM EDT HEPATITIS C ANTIBODY - ED W/REFLEX TO HCV QUANT PCR STAT 09/30/2024 2:50 PM EDT CBC W/O DIFFERENTIAL STAT 09/30/2024 2:50 PM EDT TYPE AND SCREEN STAT 09/30/2024 2:50 PM EDT BLOOD GAS PANEL, VENOUS STAT 10/01/19 2:50 PM EDT ECG ADULT STAT 09/30/2024 2:41 PM EDT POCT GLUCOSE METER UNSOLICITED RESULTS Routine 09/30/2024 2:13 PM EDT documented in this encounter Results * US Extremity Limited MSK or Soft Tissue Left; Upper Arm; Lateral (10/18/2024 11:21 AM EDT) Anatomical Region Laterality Modality Upper Extremities, Lower Extremities Ultrasound Impressions 10/18/2024 11:42 AM EDT There is a subcentimeter (approximately 9 mm) cystic mass/fluid collection in the region of clinical interest. This has nonspecific imaging findings. Correlation with clinical/procedural history may help to narrow the differential diagnosis. Consider follow-up imaging to assure resolution, as indicated. CRITICAL RESULT: No. COMMUNICATION: Per this written report. Drafted by Antoine Hernandez MD on 10/18/2024 11:33 AM Final report signed by Antoine Hernandez MD on 10/18/2024 11:42 AM Narrative 10/18/2024 11:42 AM EDT CLINICAL INDICATION: evaluate subcutaneous nodule TECHNIQUE: Multiplanar garcia scale survey and color Doppler sonographic imaging of the left upper posterior arm was performed. COMPARISON: None. FINDINGS: Imaging was performed in the region of clinical interest in the posterior left upper arm. At this site, there is a irregularly-shaped anechoic mass with relatively well-defined margins, posterior acoustic enhancement, and a mildly hyperechoic rim. It measures approximately 9 mm in size. There is no peripheral hyperemia or internal enhancement on color Doppler imaging. There is increased echogenicity of the surrounding subcutaneous tissues. The mass does not completely compress with transducer pressure. Procedure Note Antoine Hernandez MD - 10/18/2024 CLINICAL INDICATION: evaluate subcutaneous nodule TECHNIQUE: Multiplanar garcia scale survey and color Doppler sonographic imaging of theleft upper posterior arm was performed. COMPARISON: None. FINDINGS: Imaging was performed in the region of clinical interest in the posteriorleft upper arm. At this site, there is a irregularly-shaped anechoic masswith relatively well-defined margins, posterior acoustic enhancement, usman mildly hyperechoic rim. It measures approximately 9 mm in size. There isno peripheral hyperemia or internal enhancement on color Doppler imaging.There is increased echogenicity of the surrounding subcutaneous tissues.The mass does not completely compress with transducer pressure. IMPRESSION: There is a subcentimeter (approximately 9 mm) cystic mass/fluid collectionin the region of clinical interest. This has nonspecific imaging findings.Correlation with clinical/procedural history may help to narrow thedifferential diagnosis. Consider follow-up imaging to assure resolution,as indicated. CRITICAL RESULT: No. COMMUNICATION: Per this written report. Drafted by Antoine Hernandez MD on 10/18/2024 11:33 AM Final report signed by Antoine Hernandez MD on 10/18/2024 11:42 AM us Momo Akhatr MD IM US PROCEDURES Final Result * (ABNORMAL) Comprehensive Metabolic Panel, Plasma (10/17/2024 4:53 AM EDT) Glucose, Plasma 79 74 - 99 mg/dL 10/17/2024 5:37 AM EDT [facility] BUN, Plasma 7 7 - 21 mg/dL 10/17/2024 5:37 AM EDT [facility] Creatinine, Plasma 0.96 0.60 - 1.10 mg/dL 10/17/2024 5:37 AM EDT [facility] BUN/Creatinine Ratio 7 10/17/2024 5:37 AM EDT [facility] Sodium, Plasma 138 136 - 145 mmol/L 10/17/2024 5:37 AM EDT [facility] Potassium, Plasma 4.1 3.6 - 4.9 mmol/L 10/17/2024 5:37 AM EDT [facility] Chloride, Plasma 106 97 - 107 mmol/L 10/17/2024 5:37 AM EDT [facility] CO2, Plasma 26 22 - 29 mmol/L 10/17/2024 5:37 AM EDT [facility] Anion Gap 6 6 - 16 mmol/L 10/17/2024 5:37 AM EDT [facility] Total Calcium, Plasma 9.4 8.9 - 10.2 mg/dL 10/17/2024 5:37 AM EDT [facility] Total Protein 6.0(L) 6.3 - 7.9 g/dL 10/17/2024 5:37 AM EDT [facility] Albumin, Plasma 3.0(L) 3.5 - 5.2 g/dL 10/17/2024 5:37 AM EDT [facility] AST, Plasma 56(H) 10 - 35 U/L 10/17/2024 5:37 AM EDT [facility] Comment:Hemolyzed, result ma y be falsely increased. ALT, Plasma 29 10 - 35 U/L 10/17/2024 5:37 AM EDT [facility] Alkaline Phosphatase, Plasma 73 35 - 104 U/L 10/17/2024 5:37 AM EDT [facility] Total Bilirubin, Plasma 0.7 0.2 - 1.1 mg/dL 10/17/2024 5:37 AM EDT [facility] eGFRcr 70.9 mL/min/1.7 3m*2 10/17/2024 5:37 AM EDT [facility] Comment:Reported eGFRcr in m L/min/1.73m2 is based the CKD-EPI 2020 equation that does not use a race coefficient. Blood Venous blood specimen / Unknown Venipuncture / Unknown 10/17/2024 4:53 AM EDT 10/17/2024 5:08 AM EDT us Momo Akhtar MD LAB BLOOD ORDERABLES Final Resu lt [facility] [address] [place] [address] * (ABNORMAL) CBC W/O Differential (10/17/2024 4:53 AM EDT) WBC Count 2.25(L) 3.70 - 10.30 10*3/uL LAB HEMATOLOGY METHOD 10/17/2024 5:15 AM EDT [facility] RBC Count 3.31(L) 3.90 - 5.20 10*6/uL LAB HEMATOLOGY METHOD 10/17/2024 5:15 AM EDT [facility] HGB 11.2 11.2 - 15.7 g/dL LAB HEMATOLOGY METHOD 10/17/2024 5:15 AM EDT [facility] HCT 33.4(L) 34.0 - 45.0 % LAB HEMATOLOGY METHOD 10/17/2024 5:15 AM EDT [facility] Platelet Count 77(L) 155 - 369 10*3/uL LAB HEMATOLOGY METHOD 10/17/2024 5:15 AM EDT [facility] MCV 101(H) 79 - 98 fL LAB HEMATOLOGY METHOD 10/17/2024 5:15 AM EDT [facility] MCH 33.8(H) 26.0 - 32.0 pg LAB HEMATOLOGY METHOD 10/17/2024 5:15 AM EDT [facility] MCHC 33.5 30.7 - 35.5 g/dL LAB HEMATOLOGY METHOD 10/17/2024 5:15 AM EDT [facility] RDW 14.0 11.5 - 14.5 % LAB HEMATOLOGY METHOD 10/17/2024 5:15 AM EDT [facility] MPV 8.8 8.8 - 12.5 fL LAB HEMATOLOGY METHOD 10/17/2024 5:15 AM EDT [facility] nRBC 0.0 <=0.0 per 100 WBCs LAB HEMATOLOGY METHOD 10/17/2024 5:15 AM EDT [facility] Blood Venous blood specimen / Unknown Venipuncture / Unknown 10/17/2024 4:53 AM EDT 10/17/2024 5:08 AM EDT us Momo Akhtar MD LAB BLOOD ORDERABLES Final Resu lt [facility] [address] [id number] * US Head Neck Soft Tissue (10/11/2024 10:26 AM EDT) Anatomical Region Laterality Modality Head, Neck Ultrasound Impressions 10/11/2024 11:11 AM EDT Small subcentimeter lymph nodes with benign morphology in bilateral submandibular regions one of the lymph nodes in the left submandibular region demonstrate hyperemia and is favored to be reactive. CRITICAL RESULT: No. COMMUNICATION: Per this written report. Drafted by Belinda Winter MD on 10/11/2024 11:07 AM Final report signed by Belinda Winter MD on 10/11/2024 11:11 AM Narrative 10/11/2024 11:11 AM EDT CLINICAL INDICATION: Vague pain in the neck; submandibular pain TECHNIQUE: Focused static and cine grayscale ultrasound images of portions of the neck were obtained COMPARISON: None. FINDINGS: Neck: Evaluation of the bilateral submandibular and parotid regions were performed. The bilateral parotid and submandibular glands demonstrate normal echotexture with no focal abnormality. There are small lymph nodes seen in the bilateral submandibular regions these are normal in size and demonstrate benign morphology with preserved fatty donald. The largest lymph node in the left submandibular region measures up to 7 mm in short axis and is hyperemic; likely reactive. Other: N/A Procedure Note Belinda Winter MD - 10/11/2024 CLINICAL INDICATION: Vague pain in the neck; submandibular pain TECHNIQUE: Focused static and cine grayscale ultrasound images of portions of theneck were obtained COMPARISON: None. FINDINGS: Neck: Evaluation of the bilateral submandibular and parotid regions wereperformed. The bilateral parotid and submandibular glands demonstratenormal echotexture with no focal abnormality. There are small lymph nodesseen in the bilateral submandibular regions these are normal in size anddemonstrate benign morphology with preserved fatty donald. The largest lymphnode in the left submandibular region measures up to 7 mm in short axisand is hyperemic; likely reactive. Other: N/A IMPRESSION: Small subcentimeter lymph nodes with benign morphology in bilateralsubmandibular regions one of the lymph nodes in the left submandibularregion demonstrate hyperemia and is favored to be reactive. CRITICAL RESULT: No. COMMUNICATION: Per this written report. Drafted by Belinda Winter MD on 10/11/2024 11:07 AM Final report signed by Belinda Winter MD on 10/11/2024 11:11 AM Evette Goodrich MD [facility] PROCEDURES Final Result * (ABNORMAL) Comprehensive metabolic panel (10/07/2024 4:46 AM EDT) Pathologist [facility] Glucose, Plasma 99 74 - 99 mg/dL 10/07/2024 5:56 AM EDT [facility] BUN, Plasma 5(L) 7 - 21 mg/dL 10/07/2024 5:56 AM EDT [facility] Creatinine, Plasma 0.95 0.60 - 1.10 mg/dL 10/07/2024 5:56 AM EDT [facility] BUN/Creatinine Ratio 5 10/07/2024 5:56 AM EDT [facility] Sodium, Plasma 141 136 - 145 mmol/L 10/07/2024 5:56 AM EDT [facility] Potassium, Plasma 3.6 3.6 - 4.9 mmol/L 10/07/2024 5:56 AM EDT [facility] Chloride, Plasma 108(H) 97 - 107 mmol/L 10/07/2024 5:56 AM EDT [facility] CO2, Plasma 25 22 - 29 mmol/L 10/07/2024 5:56 AM EDT [facility] Anion Gap 8 6 - 16 mmol/L 10/07/2024 5:56 AM EDT [facility] Total Calcium, Plasma 9.2 8.9 - 10.2 mg/dL 10/07/2024 5:56 AM EDT [facility] Total Protein 5.9(L) 6.3 - 7.9 g/dL 10/07/2024 5:56 AM EDT [facility] Albumin, Plasma 3.0(L) 3.5 - 5.2 g/dL 10/07/2024 5:56 AM EDT [facility] AST, Plasma 52(H) 10 - 35 U/L 10/07/2024 5:56 AM EDT [facility] Comment:Hemolyzed, result ma y be falsely increased. ALT, Plasma 27 10 - 35 U/L 10/07/2024 5:56 AM EDT [facility] Alkaline Phosphatase, Plasma 72 35 - 104 U/L 10/07/2024 5:56 AM EDT [facility] Total Bilirubin, Plasma 0.7 0.2 - 1.1 mg/dL 10/07/2024 5:56 AM EDT [facility] eGFRcr 71.8 mL/min/1.7 3m*2 10/07/2024 5:56 AM EDT [facility] Comment:Reported eGFRcr in m L/min/1.73m2 is based the CKD-EPI 2020 equation that does not use a race coefficient. Blood Venous blood specimen / Unknown Venipuncture / Unknown 10/07/2024 4:46 AM EDT 10/07/2024 5:26 AM EDT us Momo Akhtar MD LAB BLOOD ORDERABLES Final Resu lt [facility] [address] [place] [address] * (ABNORMAL) Comprehensive metabolic panel (10/05/2024 7:04 PM EDT) Glucose, Plasma 95 74 - 99 mg/dL 10/05/2024 7:37 PM EDT [facility] BUN, Plasma 5(L) 7 - 21 mg/dL 10/05/2024 7:37 PM EDT [facility] Creatinine, Plasma 0.94 0.60 - 1.10 mg/dL 10/05/2024 7:37 PM EDT [facility] BUN/Creatinine Ratio 5 10/05/2024 7:37 PM EDT [facility] Sodium, Plasma 140 136 - 145 mmol/L 10/05/2024 7:37 PM EDT [facility] Potassium, Plasma 3.9 3.6 - 4.9 mmol/L 10/05/2024 7:37 PM EDT [facility] Chloride, Plasma 107 97 - 107 mmol/L 10/05/2024 7:37 PM EDT [facility] CO2, Plasma 23 22 - 29 mmol/L 10/05/2024 7:37 PM EDT [facility] Anion Gap 10 6 - 16 mmol/L 10/05/2024 7:37 PM EDT [facility] Total Calcium, Plasma 9.3 8.9 - 10.2 mg/dL 10/05/2024 7:37 PM EDT [facility] Total Protein 6.5 6.3 - 7.9 g/dL 10/05/2024 7:37 PM EDT [facility] Albumin, Plasma 3.3(L) 3.5 - 5.2 g/dL 10/05/2024 7:37 PM EDT [facility] AST, Plasma 54(H) 10 - 35 U/L 10/05/2024 7:37 PM EDT [facility] Comment:Hemolyzed, result ma y be falsely increased. ALT, Plasma 27 10 - 35 U/L 10/05/2024 7:37 PM EDT [facility] Alkaline Phosphatase, Plasma 74 35 - 104 U/L 10/05/2024 7:37 PM EDT [facility] Total Bilirubin, Plasma 0.8 0.2 - 1.1 mg/dL 10/05/2024 7:37 PM EDT [facility] eGFRcr 72.7 mL/min/1.7 3m*2 10/05/2024 7:37 PM EDT [facility] Comment:Reported eGFRcr in m L/min/1.73m2 is based the CKD-EPI 2020 equation that does not use a race coefficient. Blood Venous blood specimen / Unknown Venipuncture / Unknown 10/05/2024 7:04 PM EDT 10/05/2024 7:09 PM EDT us Momo Akhtar MD LAB BLOOD ORDERABLES Final Resu lt [facility] [address] [place] [address] * POCT glucose meter (10/05/2024 3:05 AM EDT) POCT Glucose 92 74 - 99 mg/dL 10/05/2024 3:13 AM EDT [facility] Comment:Accuracy of a glucos e result obtained from a capillary whole blood specimen relies upon adequate, non-compromised capillary blood flow. If the capillary glucose result is not consistent with the patient's clinical signs and symptoms, glucose testing should be repeated with either an arterial or venous sample on the glucometer or sent to the main labortory for testing. Comment 10/05/2024 3:13 AM EDT [facility] Coiled Tubing Operator ID Parul Bustamante 10/05/2024 3:13 AM EDT [facility] Device ID [id number] 10/05/2024 3:13 AM EDT [facility] Specimen Type POC Capillary 10/05/2024 3:13 AM EDT [facility] Blood Capillary blood specimen / Unknown 10/05/2024 3:05 AM EDT 10/05/2024 3:13 AM EDT us Momo Akhtar MD LAB POINT OF CARE TE ST DOCKED DEVICE UNSOLICITED RESULTS Final Result Performing Organization Address City/[facility] Co de Phone Number [facility] [address] [place] [address] * Phosphorus, Plasma (10/04/2024 5:20 AM EDT) [facility] Phosphorus, Plasma 3.2 2.5 - 4.5 mg/dL 10/04/2024 6:12 AM EDT [facility] Blood Venous blood specimen / Unknown Venipuncture / Unknown 10/04/2024 5:20 AM EDT 10/04/2024 5:29 AM EDT us Garcia Lutz MD LAB BLOOD ORDERABLES Final Resul t Performing Organization Address City/[facility]/ZIP Co de Phone Number [facility] [address] [place] [address] * Magnesium, Plasma (10/04/2024 5:20 AM EDT) [facility] Magnesium, Plasma 2.1 1.9 - 2.4 mg/dL 10/04/2024 6:12 AM EDT [facility] Blood Venous blood specimen / Unknown Venipuncture / Unknown 10/04/2024 5:20 AM EDT 10/04/2024 5:29 AM EDT us Garcia Lutz MD LAB BLOOD ORDERABLES Final Resul t [facility] [address] [place] [address] * (ABNORMAL) CBC and Differential (10/04/2024 5:20 AM EDT) WBC Count 3.75 3.70 - 10.30 10*3/uL LAB HEMATOLOGY METHOD 10/04/2024 5:39 AM EDT [facility] RBC Count 3.52(L) 3.90 - 5.20 10*6/uL LAB HEMATOLOGY METHOD 10/04/2024 5:39 AM EDT [facility] HGB 11.8 11.2 - 15.7 g/dL LAB HEMATOLOGY METHOD 10/04/2024 5:39 AM EDT [facility] HCT 34.7 34.0 - 45.0 % LAB HEMATOLOGY METHOD 10/04/2024 5:39 AM EDT [facility] Platelet Count 82(L) 155 - 369 10*3/uL LAB HEMATOLOGY METHOD 10/04/2024 5:39 AM EDT [facility] MCV 99(H) 79 - 98 fL LAB HEMATOLOGY METHOD 10/04/2024 5:39 AM EDT [facility] MCH 33.5(H) 26.0 - 32.0 pg LAB HEMATOLOGY METHOD 10/04/2024 5:39 AM EDT [facility] MCHC 34.0 30.7 - 35.5 g/dL LAB HEMATOLOGY METHOD 10/04/2024 5:39 AM EDT [facility] RDW 14.1 11.5 - 14.5 % LAB HEMATOLOGY METHOD 10/04/2024 5:39 AM EDT [facility] MPV 8.5(L) 8.8 - 12.5 fL LAB HEMATOLOGY METHOD 10/04/2024 5:39 AM EDT [facility] nRBC 0.0 <=0.0 per 100 WBCs LAB HEMATOLOGY METHOD 10/04/2024 5:39 AM EDT [facility] Differential Type Automated LAB HEMATOLOGY METHOD 10/04/2024 5:39 AM EDT [facility] Neutrophils % 55 % LAB HEMATOLOGY METHOD 10/04/2024 5:39 AM EDT [facility] Lymphocytes % 25 % LAB HEMATOLOGY METHOD 10/04/2024 5:39 AM EDT [facility] Monocytes % 12 % LAB HEMATOLOGY METHOD 10/04/2024 5:39 AM EDT [facility] Eosinophils % 7 % LAB HEMATOLOGY METHOD 10/04/2024 5:39 AM EDT [facility] Basophils % 0 % LAB HEMATOLOGY METHOD 10/04/2024 5:39 AM EDT [facility] Immature Granulocytes % 1 % LAB HEMATOLOGY METHOD 10/04/2024 5:39 AM EDT [facility] Neutrophils Absolute 2.06 1.60 - 6.10 10*3/uL LAB HEMATOLOGY METHOD 10/04/2024 5:39 AM EDT [facility] Lymphocytes Absolute 0.95(L) 1.20 - 3.90 10*3/uL LAB HEMATOLOGY METHOD 10/04/2024 5:39 AM EDT [facility] Monocytes Absolute 0.44 0.30 - 0.90 10*3/uL LAB HEMATOLOGY METHOD 10/04/2024 5:39 AM EDT [facility] Eosinophils Absolute 0.26 0.00 - 0.50 10*3/uL LAB HEMATOLOGY METHOD 10/04/2024 5:39 AM EDT [facility] Basophils Absolute 0.01 0.00 - 0.10 10*3/uL LAB HEMATOLOGY METHOD 10/04/2024 5:39 AM EDT [facility] Immature Granulocytes Absolute 0.03 0.00 - 0.06 10*3/uL LAB HEMATOLOGY METHOD 10/04/2024 5:39 AM EDT [facility] Blood Venous blood specimen / Unknown Venipuncture / Unknown 10/04/2024 5:20 AM EDT 10/04/2024 5:29 AM EDT [facility] - 10/04/2024 5:39 AM EDT Therapeutic decision making should be based on absolute values, rather than percentages. us Garcia Lutz MD LAB BLOOD ORDERABLES Final Resul t [facility] [address] [place] [address] * (ABNORMAL) Comprehensive metabolic panel (10/04/2024 5:20 AM EDT) Glucose, Plasma 88 74 - 99 mg/dL 10/04/2024 6:12 AM EDT [facility] BUN, Plasma 6(L) 7 - 21 mg/dL 10/04/2024 6:12 AM EDT [facility] Creatinine, Plasma 0.97 0.60 - 1.10 mg/dL 10/04/2024 6:12 AM EDT [facility] BUN/Creatinine Ratio 6 10/04/2024 6:12 AM EDT [facility] Sodium, Plasma 139 136 - 145 mmol/L 10/04/2024 6:12 AM EDT [facility] Potassium, Plasma 4.2 3.6 - 4.9 mmol/L 10/04/2024 6:12 AM EDT [facility] Chloride, Plasma 107 97 - 107 mmol/L 10/04/2024 6:12 AM EDT [facility] CO2, Plasma 24 22 - 29 mmol/L 10/04/2024 6:12 AM EDT [facility] Anion Gap 8 6 - 16 mmol/L 10/04/2024 6:12 AM EDT [facility] Total Calcium, Plasma 9.1 8.9 - 10.2 mg/dL 10/04/2024 6:12 AM EDT [facility] Total Protein 6.1(L) 6.3 - 7.9 g/dL 10/04/2024 6:12 AM EDT [facility] Albumin, Plasma 3.1(L) 3.5 - 5.2 g/dL 10/04/2024 6:12 AM EDT [facility] AST, Plasma 51(H) 10 - 35 U/L 10/04/2024 6:12 AM EDT [facility] Comment:Hemolyzed, result ma y be falsely increased. ALT, Plasma 24 10 - 35 U/L 10/04/2024 6:12 AM EDT [facility] Alkaline Phosphatase, Plasma 70 35 - 104 U/L 10/04/2024 6:12 AM EDT [facility] Total Bilirubin, Plasma 0.9 0.2 - 1.1 mg/dL 10/04/2024 6:12 AM EDT [facility] eGFRcr 70.0 mL/min/1.7 3m*2 10/04/2024 6:12 AM EDT [facility] Comment:Reported eGFRcr in m L/min/1.73m2 is based the CKD-EPI 2020 equation that does not use a race coefficient. Blood Venous blood specimen / Unknown Venipuncture / Unknown 10/04/2024 5:20 AM EDT 10/04/2024 5:29 AM EDT us Momo Akhtar MD LAB BLOOD ORDERABLES Final Resu lt [facility] [address] [place] [address] * (ABNORMAL) Blood gas panel, venous (10/04/2024 5:20 AM EDT) pH, Venous 7.40 7.32 - 7.43 LAB HEMATOLOGY METHOD 10/04/2024 5:31 AM EDT [facility] pCO2, Venous 45 37 - 52 mmHg LAB HEMATOLOGY METHOD 10/04/2024 5:31 AM EDT [facility] [facility] pO2, Venous 82(H) 25 - 40 mmHg LAB HEMATOLOGY METHOD 10/04/2024 5:31 AM EDT [facility] SO2, Measured, Venous 98(H) 65 - 80 % LAB HEMATOLOGY METHOD 10/04/2024 5:31 AM EDT [facility] Base Excess, Venous 2.6 -2.0 - 3.0 mmol/L LAB HEMATOLOGY METHOD 10/04/2024 5:31 AM EDT [facility] Bicarbonate, Calculated, Venous 28(H) 22 - 26 mmol/L LAB HEMATOLOGY METHOD 10/04/2024 5:31 AM EDT [facility] Hematocrit, Whole Blood 36.4 34.0 - 45.0 % LAB HEMATOLOGY METHOD 10/04/2024 5:31 AM EDT [facility] Sodium, Whole Blood 141 136 - 145 mmol/L LAB HEMATOLOGY METHOD 10/04/2024 5:31 AM EDT [facility] Potassium, Whole Blood 4.0 3.6 - 4.9 mmol/L LAB HEMATOLOGY METHOD 10/04/2024 5:31 AM EDT [facility] Chloride, Whole Blood 107 97 - 107 mmol/L LAB HEMATOLOGY METHOD 10/04/2024 5:31 AM EDT [facility] Glucose, Whole Blood 83 74 - 99 mg/dL LAB HEMATOLOGY METHOD 10/04/2024 5:31 AM EDT [facility] Lactate, Venous, Whole Blood 0.9 0.5 - 2.2 mmol/L LAB HEMATOLOGY METHOD 10/04/2024 5:31 AM EDT [facility] Ionized Calcium, Whole Blood 4.8 4.6 - 5.1 mg/dL LAB HEMATOLOGY METHOD 10/04/2024 5:31 AM EDT [facility] Blood Venous blood specimen / Unknown Venipuncture / Unknown 10/04/2024 5:20 AM EDT 10/04/2024 5:29 AM EDT us Garcia Lutz MD LAB BLOOD ORDERABLES Final Resul t [facility] [address] [place] [address] * CT Angio Neck (10/03/2024 1:15 AM EDT) Anatomical Region Laterality Modality Carotid Artery Computed Tomogra phy Impressions 10/03/2024 2:09 AM EDT * There is no evidence of intracranial hemorrhage or acute territorial infarction. * Unchanged extra-axial mass arising from the tuberculum sella measuring up to 0.9 cm which is favored to reflect a meningioma. * No evidence of hemodynamically significant stenosis or abnormality involving the major intra- and extra-cranial arteries. * Opacification of the right maxillary sinus and right anterior ethmoid air cells which could reflect a sinusitis or mucocele. RECOMMENDATION: If there is persistent clinical concern for infarct, brain MRI is recommended. CRITICAL RESULT: No. COMMUNICATION: Per this written report. Drafted by Jermaine Mixon MD on 10/03/2024 1:58 AM Final report signed by Jermaine Mixon MD on 10/03/2024 2:09 AM Narrative 10/03/2024 2:09 AM EDT CLINICAL INDICATION: Mental status change, unknown cause TECHNIQUE: Head CT: Spiral axial CT images of the head were obtained without contrast administration. Head CTA: Axial images were obtained through the head during contrast bolus injection and multiplanar MIP images were created. Neck CTA: Axial images were obtained through the neck during bolus contrast injection and multiplanar reformatted and MIP images were created. 100 mL of Omnipaque 350 were administered intravenously. Total DLP (Dose-Length Product): 1530.27 mGy.cm (accession [id number]), 1530.27 mGy.cm (accession [id number]), 1530.27 mGy.cm (accession [id number]). Please note: The reported value represents the total of one or more individual components during the CT acquisition on this date and at this time, and as such, the same value may appear in more than one CT report depending on the interpreting/reporting physicians. COMPARISON: Head CT 09/30/2024; brain MRI 12/12/2021; CTA head and neck 11/21/2020 FINDINGS: Head CT: Study Quality: Adequate. No midline shift, mass effect, parenchymal hemorrhage, or evidence of acute territorial infarct. There are nonspecific punctate and patchy hypodense foci in the periventricular and subcortical white matter which may represent sequela of small vessel disease. Prominence of the retrocerebellar space which communicates with the fourth ventricle which could reflect aryan cisterna magna. Unchanged tuberculum sella mass measuring 0.9 cm consistent with a meningioma. Basal cisterns are patent. No hydrocephalus. There is mild prominence of the sulci, cisterns, and ventricles suggestive of generalized brain parenchymal volume loss without a regional predominance. The callosal angle is obtuse. There are scattered atherosclerotic calcifications within the carotid siphons. The orbits and globes are unremarkable. Soft Tissues: No significant soft tissue swelling is present. Skull: There are no calvarial destructive lesions or fractures. Sinuses and Mastoids: Left septal deviation with osseous spur. Opacification of the right maxillary sinus and right anterior ethmoid air cells. Retention cyst in a posterior right ethmoid air cell. Retention cyst in the left sphenoid sinus. Neck CTA: Diagnostic Quality: Adequate Aorta and Great Vessel Origins: The aortic arch has a normal branching pattern. There is no significant stenosis of the origins of the great arteries of the neck. Right Cervical Carotid System: The right common carotid artery and its origin are patent. There is no significant atherosclerotic plaque at the carotid bifurcation. There is a 0% stenosis at the bifurcation by NASCET criteria. The right internal carotid artery demonstrates a normal course in the cervical region. There is no evidence of dissection or pseudoaneurysm of the right common and internal carotid arteries. Left Cervical Carotid System: The left common carotid artery and its origin are patent. There is no significant atherosclerotic plaque at the carotid bifurcation. There is a 0% stenosis at the bifurcation by NASCET criteria. The left internal carotid artery demonstrates a normal course in the cervical region. There is no evidence of dissection or pseudoaneurysm of the left common and internal carotid arteries. Vertebral arteries: The origins appear patent. There is no evidence of a dissection, pseudoaneurysm, or significant stenosis of the vertebral arteries. Other Findings: Reversal the typical cervical lordosis. Head CTA: Diagnostic Quality: Adequate Vertebrobasilar System: The intradural vertebral arteries are normal in appearance without significant stenosis. The basilar artery and its major branches are within normal limits. There is no aneurysm. Carotid Arteries: Right ICA: There is atherosclerotic plaque with no significant stenosis. Left ICA: There is atherosclerotic plaque with no significant stenosis. Other Findings: There is no aneurysm of either internal carotid artery. [place] and Major Peripheral Branches: There is an anterior communicating artery. A right posterior communicating artery is not definitively visualized. There is a left posterior communicating artery. There is no significant stenosis or occlusion. There is no aneurysm. Other Findings: None. Procedure Note Jermaine Mixon MD - 10/03/2024 CLINICAL INDICATION: Mental status change, unknown cause TECHNIQUE: Head CT: Spiral axial CT images of the head were obtained without contrastadministration. Head CTA: Axial images were obtained through the head during contrastbolus injection and multiplanar MIP images were created. Neck CTA: Axial images were obtained through the neck during boluscontrast injection and multiplanar reformatted and MIP images werecreated. 100 mL of Omnipaque 350 were administered intravenously. Total DLP (Dose-Length Product): 1530.27 mGy.cm (accession [id number]),1530.27 mGy.cm (accession [id number]), 1530.27 mGy.cm (accession [id number]).Please note: The reported value represents the total of one or moreindividual components during the CT acquisition on this date and at thistime, and as such, the same value may appear in more than one CT reportdepending on the interpreting/reporting physicians. COMPARISON: Head CT 09/30/2024; brain MRI 12/12/2021; CTA head and neck 11/21/2020 FINDINGS: Head CT: Study Quality: Adequate. No midline shift, mass effect, parenchymal hemorrhage, or evidence ofacute territorial infarct. There are nonspecific punctate and patchyhypodense foci in the periventricular and subcortical white matter whichmay represent sequela of small vessel disease. Prominence of the retrocerebellar space which communicates with the fourthventricle which could reflect aryan cisterna magna. Unchanged tuberculumsella mass measuring 0.9 cm consistent with a meningioma. Basal cisternsare patent. No hydrocephalus. There is mild prominence of the sulci,cisterns, and ventricles suggestive of generalized brain parenchymalvolume loss without a regional predominance. The callosal angle isobtuse. There are scattered atherosclerotic calcifications within the carotidsiphons. The orbits and globes are unremarkable. Soft Tissues: No significant soft tissue swelling is present. Skull: There are no calvarial destructive lesions or fractures. Sinuses and Mastoids: Left septal deviation with osseous spur.Opacification of the right maxillary sinus and right anterior ethmoid aircells. Retention cyst in a posterior right ethmoid air cell. Retentioncyst in the left sphenoid sinus. Neck CTA: Diagnostic Quality: Adequate Aorta and Great Vessel Origins: The aortic arch has a normal branchingpattern. There is no significant stenosis of the origins of the greatarteries of the neck. Right Cervical Carotid System: The right common carotid artery and itsorigin are patent. There is no significant atherosclerotic plaque at thecarotid bifurcation. There is a 0% stenosis at the bifurcation by NASCETcriteria. The right internal carotid artery demonstrates a normal coursein the cervical region. There is no evidence of dissection orpseudoaneurysm of the right common and internal carotid arteries. Left Cervical Carotid System: The left common carotid artery and itsorigin are patent. There is no significant atherosclerotic plaque at thecarotid bifurcation. There is a 0% stenosis at the bifurcation by NASCETcriteria. The left internal carotid artery demonstrates a normal course inthe cervical region. There is no evidence of dissection or pseudoaneurysmof the left common and internal carotid arteries. Vertebral arteries: The origins appear patent. There is no evidence of adissection, pseudoaneurysm, or significant stenosis of the vertebralarteries. Other Findings: Reversal the typical cervical lordosis. Head CTA: Diagnostic Quality: Adequate Vertebrobasilar System: The intradural vertebral arteries are normal inappearance without significant stenosis. The basilar artery and its majorbranches are within normal limits. There is no aneurysm. Carotid Arteries: Right ICA: There is atherosclerotic plaque with no significant stenosis. Left ICA: There is atherosclerotic plaque with no significant stenosis. Other Findings: There is no aneurysm of either internal carotid artery. [place] and Major Peripheral Branches: There is an anteriorcommunicating artery. A right posterior communicating artery is notdefinitively visualized. There is a left posterior communicating artery. There is no significant stenosis or occlusion. There is no aneurysm. Other Findings: None. IMPRESSION: *There is no evidence of intracranial hemorrhage or acute territorialinfarction. 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 *No evidence of hemodynamically significant stenosis or abnormalityinvolving the major intra- and extra-cranial arteries. *Opacification of the right maxillary sinus and right anterior ethmoidair cells which could reflect a sinusitis or mucocele. RECOMMENDATION: If there is persistent clinical concern for infarct, brain MRI isrecommended. CRITICAL RESULT: No. COMMUNICATION: Per this written report. Drafted by Jermaine Mixon MD on 10/03/2024 1:58 AM Final report signed by Jermaine Mixon MD on 10/03/2024 2:09 AM Garcia Lutz MD IMG CT PROCEDURES Final Result * CT Angio Head (10/03/2024 1:15 AM EDT) Anatomical Region Laterality Modality [place] Computed Tomogr aphy Impressions 10/03/2024 2:09 AM EDT * There is no evidence of intracranial hemorrhage or acute territorial infarction. * Unchanged extra-axial mass arising from the tuberculum sella measuring up to 0.9 cm which is favored to reflect a meningioma. * No evidence of hemodynamically significant stenosis or abnormality involving the major intra- and extra-cranial arteries. * Opacification of the right maxillary sinus and right anterior ethmoid air cells which could reflect a sinusitis or mucocele. RECOMMENDATION: If there is persistent clinical concern for infarct, brain MRI is recommended. CRITICAL RESULT: No. COMMUNICATION: Per this written report. Drafted by Jermaine Mixon MD on 10/03/2024 1:58 AM Final report signed by Jermaine Mixon MD on 10/03/2024 2:09 AM Narrative 10/03/2024 2:09 AM EDT CLINICAL INDICATION: Mental status change, unknown cause TECHNIQUE: Head CT: Spiral axial CT images of the head were obtained without contrast administration. Head CTA: Axial images were obtained through the head during contrast bolus injection and multiplanar MIP images were created. Neck CTA: Axial images were obtained through the neck during bolus contrast injection and multiplanar reformatted and MIP images were created. 100 mL of Omnipaque 350 were administered intravenously. Total DLP (Dose-Length Product): 1530.27 mGy.cm (accession [id number]), 1530.27 mGy.cm (accession [id number]), 1530.27 mGy.cm (accession [id number]). Please note: The reported value represents the total of one or more individual components during the CT acquisition on this date and at this time, and as such, the same value may appear in more than one CT report depending on the interpreting/reporting physicians. COMPARISON: Head CT 09/30/2024; brain MRI 12/12/2021; CTA head and neck 11/21/2020 FINDINGS: Head CT: Study Quality: Adequate. No midline shift, mass effect, parenchymal hemorrhage, or evidence of acute territorial infarct. There are nonspecific punctate and patchy hypodense foci in the periventricular and subcortical white matter which may represent sequela of small vessel disease. Prominence of the retrocerebellar space which communicates with the fourth ventricle which could reflect aryan cisterna magna. Unchanged tuberculum sella mass measuring 0.9 cm consistent with a meningioma. Basal cisterns are patent. No hydrocephalus. There is mild prominence of the sulci, cisterns, and ventricles suggestive of generalized brain parenchymal volume loss without a regional predominance. The callosal angle is obtuse. There are scattered atherosclerotic calcifications within the carotid siphons. The orbits and globes are unremarkable. Soft Tissues: No significant soft tissue swelling is present. Skull: There are no calvarial destructive lesions or fractures. Sinuses and Mastoids: Left septal deviation with osseous spur. Opacification of the right maxillary sinus and right anterior ethmoid air cells. Retention cyst in a posterior right ethmoid air cell. Retention cyst in the left sphenoid sinus. Neck CTA: Diagnostic Quality: Adequate Aorta and Great Vessel Origins: The aortic arch has a normal branching pattern. There is no significant stenosis of the origins of the great arteries of the neck. Right Cervical Carotid System: The right common carotid artery and its origin are patent. There is no significant atherosclerotic plaque at the carotid bifurcation. There is a 0% stenosis at the bifurcation by NASCET criteria. The right internal carotid artery demonstrates a normal course in the cervical region. There is no evidence of dissection or pseudoaneurysm of the right common and internal carotid arteries. Left Cervical Carotid System: The left common carotid artery and its origin are patent. There is no significant atherosclerotic plaque at the carotid bifurcation. There is a 0% stenosis at the bifurcation by NASCET criteria. The left internal carotid artery demonstrates a normal course in the cervical region. There is no evidence of dissection or pseudoaneurysm of the left common and internal carotid arteries. Vertebral arteries: The origins appear patent. There is no evidence of a dissection, pseudoaneurysm, or significant stenosis of the vertebral arteries. Other Findings: Reversal the typical cervical lordosis. Head CTA: Diagnostic Quality: Adequate Vertebrobasilar System: The intradural vertebral arteries are normal in appearance without significant stenosis. The basilar artery and its major branches are within normal limits. There is no aneurysm. Carotid Arteries: Right ICA: There is atherosclerotic plaque with no significant stenosis. Left ICA: There is atherosclerotic plaque with no significant stenosis. Other Findings: There is no aneurysm of either internal carotid artery. [place] and Major Peripheral Branches: There is an anterior communicating artery. A right posterior communicating artery is not definitively visualized. There is a left posterior communicating artery. There is no significant stenosis or occlusion. There is no aneurysm. Other Findings: None. Procedure Note Jermaine Mixon MD - 10/03/2024 CLINICAL INDICATION: Mental status change, unknown cause TECHNIQUE: Head CT: Spiral axial CT images of the head were obtained without contrastadministration. Head CTA: Axial images were obtained through the head during contrastbolus injection and multiplanar MIP images were created. Neck CTA: Axial images were obtained through the neck during boluscontrast injection and multiplanar reformatted and MIP images werecreated. 100 mL of Omnipaque 350 were administered intravenously. Total DLP (Dose-Length Product): 1530.27 mGy.cm (accession [id number]),1530.27 mGy.cm (accession [id number]), 1530.27 mGy.cm (accession [id number]).Please note: The reported value represents the total of one or moreindividual components during the CT acquisition on this date and at thistime, and as such, the same value may appear in more than one CT reportdepending on the interpreting/reporting physicians. COMPARISON: Head CT 09/30/2024; brain MRI 12/12/2021; CTA head and neck 11/21/2020 FINDINGS: Head CT: Study Quality: Adequate. No midline shift, mass effect, parenchymal hemorrhage, or evidence ofacute territorial infarct. There are nonspecific punctate and patchyhypodense foci in the periventricular and subcortical white matter whichmay represent sequela of small vessel disease. Prominence of the retrocerebellar space which communicates with the fourthventricle which could reflect aryan cisterna magna. Unchanged tuberculumsella mass measuring 0.9 cm consistent with a meningioma. Basal cisternsare patent. No hydrocephalus. There is mild prominence of the sulci,cisterns, and ventricles suggestive of generalized brain parenchymalvolume loss without a regional predominance. The callosal angle isobtuse. There are scattered atherosclerotic calcifications within the carotidsiphons. The orbits and globes are unremarkable. Soft Tissues: No significant soft tissue swelling is present. Skull: There are no calvarial destructive lesions or fractures. Sinuses and Mastoids: Left septal deviation with osseous spur.Opacification of the right maxillary sinus and right anterior ethmoid aircells. Retention cyst in a posterior right ethmoid air cell. Retentioncyst in the left sphenoid sinus. Neck CTA: Diagnostic Quality: Adequate Aorta and Great Vessel Origins: The aortic arch has a normal branchingpattern. There is no significant stenosis of the origins of the greatarteries of the neck. Right Cervical Carotid System: The right common carotid artery and itsorigin are patent. There is no significant atherosclerotic plaque at thecarotid bifurcation. There is a 0% stenosis at the bifurcation by NASCETcriteria. The right internal carotid artery demonstrates a normal coursein the cervical region. There is no evidence of dissection orpseudoaneurysm of the right common and internal carotid arteries. Left Cervical Carotid System: The left common carotid artery and itsorigin are patent. There is no significant atherosclerotic plaque at thecarotid bifurcation. There is a 0% stenosis at the bifurcation by NASCETcriteria. The left internal carotid artery demonstrates a normal course inthe cervical region. There is no evidence of dissection or pseudoaneurysmof the left common and internal carotid arteries. Vertebral arteries: The origins appear patent. There is no evidence of adissection, pseudoaneurysm, or significant stenosis of the vertebralarteries. Other Findings: Reversal the typical cervical lordosis. Head CTA: Diagnostic Quality: Adequate Vertebrobasilar System: The intradural vertebral arteries are normal inappearance without significant stenosis. The basilar artery and its majorbranches are within normal limits. There is no aneurysm. Carotid Arteries: Right ICA: There is atherosclerotic plaque with no significant stenosis. Left ICA: There is atherosclerotic plaque with no significant stenosis. Other Findings: There is no aneurysm of either internal carotid artery. [place] and Major Peripheral Branches: There is an anteriorcommunicating artery. A right posterior communicating artery is notdefinitively visualized. There is a left posterior communicating artery. There is no significant stenosis or occlusion. There is no aneurysm. Other Findings: None. IMPRESSION: *There is no evidence of intracranial hemorrhage or acute territorialinfarction. 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 *No evidence of hemodynamically significant stenosis or abnormalityinvolving the major intra- and extra-cranial arteries. *Opacification of the right maxillary sinus and right anterior ethmoidair cells which could reflect a sinusitis or mucocele. RECOMMENDATION: If there is persistent clinical concern for infarct, brain MRI isrecommended. CRITICAL RESULT: No. COMMUNICATION: Per this written report. Drafted by Jermaine Mixon MD on 10/03/2024 1:58 AM Final report signed by Jermaine Mixon MD on 10/03/2024 2:09 AM Garcia Lutz MD IMG CT PROCEDURES Final Result * CT Head wo IV Contrast (10/03/2024 1:15 AM EDT) Anatomical Region Laterality Modality Head Computed Tomogra phy Impressions 10/03/2024 2:09 AM EDT * There is no evidence of intracranial hemorrhage or acute territorial infarction. * Unchanged extra-axial mass arising from the tuberculum sella measuring up to 0.9 cm which is favored to reflect a meningioma. * No evidence of hemodynamically significant stenosis or abnormality involving the major intra- and extra-cranial arteries. * Opacification of the right maxillary sinus and right anterior ethmoid air cells which could reflect a sinusitis or mucocele. RECOMMENDATION: If there is persistent clinical concern for infarct, brain MRI is recommended. CRITICAL RESULT: No. COMMUNICATION: Per this written report. Drafted by Jermaine Mixon MD on 10/03/2024 1:58 AM Final report signed by Jermaine Mixon MD on 10/03/2024 2:09 AM Narrative 10/03/2024 2:09 AM EDT CLINICAL INDICATION: Mental status change, unknown cause TECHNIQUE: Head CT: Spiral axial CT images of the head were obtained without contrast administration. Head CTA: Axial images were obtained through the head during contrast bolus injection and multiplanar MIP images were created. Neck CTA: Axial images were obtained through the neck during bolus contrast injection and multiplanar reformatted and MIP images were created. 100 mL of Omnipaque 350 were administered intravenously. Total DLP (Dose-Length Product): 1530.27 mGy.cm (accession [id number]), 1530.27 mGy.cm (accession [id number]), 1530.27 mGy.cm (accession [id number]). Please note: The reported value represents the total of one or more individual components during the CT acquisition on this date and at this time, and as such, the same value may appear in more than one CT report depending on the interpreting/reporting physicians. COMPARISON: Head CT 09/30/2024; brain MRI 12/12/2021; CTA head and neck 11/21/2020 FINDINGS: Head CT: Study Quality: Adequate. No midline shift, mass effect, parenchymal hemorrhage, or evidence of acute territorial infarct. There are nonspecific punctate and patchy hypodense foci in the periventricular and subcortical white matter which may represent sequela of small vessel disease. Prominence of the retrocerebellar space which communicates with the fourth ventricle which could reflect aryan cisterna magna. Unchanged tuberculum sella mass measuring 0.9 cm consistent with a meningioma. Basal cisterns are patent. No hydrocephalus. There is mild prominence of the sulci, cisterns, and ventricles suggestive of generalized brain parenchymal volume loss without a regional predominance. The callosal angle is obtuse. There are scattered atherosclerotic calcifications within the carotid siphons. The orbits and globes are unremarkable. Soft Tissues: No significant soft tissue swelling is present. Skull: There are no calvarial destructive lesions or fractures. Sinuses and Mastoids: Left septal deviation with osseous spur. Opacification of the right maxillary sinus and right anterior ethmoid air cells. Retention cyst in a posterior right ethmoid air cell. Retention cyst in the left sphenoid sinus. Neck CTA: Diagnostic Quality: Adequate Aorta and Great Vessel Origins: The aortic arch has a normal branching pattern. There is no significant stenosis of the origins of the great arteries of the neck. Right Cervical Carotid System: The right common carotid artery and its origin are patent. There is no significant atherosclerotic plaque at the carotid bifurcation. There is a 0% stenosis at the bifurcation by NASCET criteria. The right internal carotid artery demonstrates a normal course in the cervical region. There is no evidence of dissection or pseudoaneurysm of the right common and internal carotid arteries. Left Cervical Carotid System: The left common carotid artery and its origin are patent. There is no significant atherosclerotic plaque at the carotid bifurcation. There is a 0% stenosis at the bifurcation by NASCET criteria. The left internal carotid artery demonstrates a normal course in the cervical region. There is no evidence of dissection or pseudoaneurysm of the left common and internal carotid arteries. Vertebral arteries: The origins appear patent. There is no evidence of a dissection, pseudoaneurysm, or significant stenosis of the vertebral arteries. Other Findings: Reversal the typical cervical lordosis. Head CTA: Diagnostic Quality: Adequate Vertebrobasilar System: The intradural vertebral arteries are normal in appearance without significant stenosis. The basilar artery and its major branches are within normal limits. There is no aneurysm. Carotid Arteries: Right ICA: There is atherosclerotic plaque with no significant stenosis. Left ICA: There is atherosclerotic plaque with no significant stenosis. Other Findings: There is no aneurysm of either internal carotid artery. [place] and Major Peripheral Branches: There is an anterior communicating artery. A right posterior communicating artery is not definitively visualized. There is a left posterior communicating artery. There is no significant stenosis or occlusion. There is no aneurysm. Other Findings: None. Procedure Note Jermaine Mixon MD - 10/03/2024 CLINICAL INDICATION: Mental status change, unknown cause TECHNIQUE: Head CT: Spiral axial CT images of the head were obtained without contrastadministration. Head CTA: Axial images were obtained through the head during contrastbolus injection and multiplanar MIP images were created. Neck CTA: Axial images were obtained through the neck during boluscontrast injection and multiplanar reformatted and MIP images werecreated. 100 mL of Omnipaque 350 were administered intravenously. Total DLP (Dose-Length Product): 1530.27 mGy.cm (accession [id number]),1530.27 mGy.cm (accession [id number]), 1530.27 mGy.cm (accession [id number]).Please note: The reported value represents the total of one or moreindividual components during the CT acquisition on this date and at thistime, and as such, the same value may appear in more than one CT reportdepending on the interpreting/reporting physicians. COMPARISON: Head CT 09/30/2024; brain MRI 12/12/2021; CTA head and neck 11/21/2020 FINDINGS: Head CT: Study Quality: Adequate. No midline shift, mass effect, parenchymal hemorrhage, or evidence ofacute territorial infarct. There are nonspecific punctate and patchyhypodense foci in the periventricular and subcortical white matter whichmay represent sequela of small vessel disease. Prominence of the retrocerebellar space which communicates with the fourthventricle which could reflect aryan cisterna magna. Unchanged tuberculumsella mass measuring 0.9 cm consistent with a meningioma. Basal cisternsare patent. No hydrocephalus. There is mild prominence of the sulci,cisterns, and ventricles suggestive of generalized brain parenchymalvolume loss without a regional predominance. The callosal angle isobtuse. There are scattered atherosclerotic calcifications within the carotidsiphons. The orbits and globes are unremarkable. Soft Tissues: No significant soft tissue swelling is present. Skull: There are no calvarial destructive lesions or fractures. Sinuses and Mastoids: Left septal deviation with osseous spur.Opacification of the right maxillary sinus and right anterior ethmoid aircells. Retention cyst in a posterior right ethmoid air cell. Retentioncyst in the left sphenoid sinus. Neck CTA: Diagnostic Quality: Adequate Aorta and Great Vessel Origins: The aortic arch has a normal branchingpattern. There is no significant stenosis of the origins of the greatarteries of the neck. Right Cervical Carotid System: The right common carotid artery and itsorigin are patent. There is no significant atherosclerotic plaque at thecarotid bifurcation. There is a 0% stenosis at the bifurcation by NASCETcriteria. The right internal carotid artery demonstrates a normal coursein the cervical region. There is no evidence of dissection orpseudoaneurysm of the right common and internal carotid arteries. Left Cervical Carotid System: The left common carotid artery and itsorigin are patent. There is no significant atherosclerotic plaque at thecarotid bifurcation. There is a 0% stenosis at the bifurcation by NASCETcriteria. The left internal carotid artery demonstrates a normal course inthe cervical region. There is no evidence of dissection or pseudoaneurysmof the left common and internal carotid arteries. Vertebral arteries: The origins appear patent. There is no evidence of adissection, pseudoaneurysm, or significant stenosis of the vertebralarteries. Other Findings: Reversal the typical cervical lordosis. Head CTA: Diagnostic Quality: Adequate Vertebrobasilar System: The intradural vertebral arteries are normal inappearance without significant stenosis. The basilar artery and its majorbranches are within normal limits. There is no aneurysm. Carotid Arteries: Right ICA: There is atherosclerotic plaque with no significant stenosis. Left ICA: There is atherosclerotic plaque with no significant stenosis. Other Findings: There is no aneurysm of either internal carotid artery. [place] and Major Peripheral Branches: There is an anteriorcommunicating artery. A right posterior communicating artery is notdefinitively visualized. There is a left posterior communicating artery. There is no significant stenosis or occlusion. There is no aneurysm. Other Findings: None. IMPRESSION: *There is no evidence of intracranial hemorrhage or acute territorialinfarction. 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 *No evidence of hemodynamically significant stenosis or abnormalityinvolving the major intra- and extra-cranial arteries. *Opacification of the right maxillary sinus and right anterior ethmoidair cells which could reflect a sinusitis or mucocele. RECOMMENDATION: If there is persistent clinical concern for infarct, brain MRI isrecommended. CRITICAL RESULT: No. COMMUNICATION: Per this written report. Drafted by Jermaine Mixon MD on 10/03/2024 1:58 AM Final report signed by Jermaine Mixon MD on 10/03/2024 2:09 AM us Garcia Lutz MD IMG CT PROCEDURES Final Result * ECG Adult (10/03/2024 12:47 AM EDT) EKG DIAGNOSIS CLASS Normal MUSE ECG Ventricular Rate 76 BPM MUSE ECG Atrial Rate 76 BPM MUSE ECG [place] Interval 168 ms MUSE ECG QRSD Interval 100 ms MUSE ECG QT Interval 412 ms MUSE ECG QTC Interval 463 ms MUSE ECG P [place] 46 degrees MUSE ECG R [place] 9 degrees MUSE ECG T Wave [place] 29 degrees MUSE ECG Diagnosis Normal sinus rhythm MUSE ECG Diagnosis Normal ECG MUSE ECG Diagnosis MUSE ECG Diagnosis Confirmed by Gianfranco Dunn ([id number]) on 10/03/2024 8:40:14 AM MUSE ECG 10/03/2024 12:4 7 AM EDT 10/03/2024 8:40 AM EDT us Garcia Lutz MD ECG ORDERABLES Final Result MUSE ECG * Critical Care (10/03/2024 12:45 AM EDT) Narrative Garcia Lutz MD - 10/03/2024 12:45 AM EDT Garcia Lutz MD 10/03/2024 4:00 AM Critical Care Performed by: Garcia Lutz MD Authorized by: Garcia Lutz MD Critical care provider statement: Critical care time (minutes): 25 Critical care was time spent personally by me on the following activities: Evaluation of patient's response to treatment, examination of patient, review of old charts, ordering and review of radiographic studies and ordering and review of laboratory studies Comments: Patient seen at bedside urgently for concern for AMS Per RN, he had noticed acute changes in mentation with worsening confusion, slurred speech and inability to move left care. On my exam of patient, BG >100, Vitals within range. She is awake sitting in bed, appears confused and in unable to follow commands consistently. No obvious facial droop or other CN deficits. Able to withdraw all 4 extremities to pain stimulus. NIHSS = 4. During exam, patient had episode of clenching her chest that self resolved -Per note, some dysarthria present on admission, she is being treated for HE A/P: Her current acute presentation maybe a manifestation of her fluctuating mental status from HE. No trauma or head injury prior to acute change is reassuring though her dysarthria is rather significant. Her inability to follow commands leaves motor exam of limited utility. We'll perform a head scan stroke protocol. Should scans not be suggestive of CVA, we'll consider adding lactulose . -get EKG -transfer to progressive us Garcia Lutz MD IN CLINIC/BEDSIDE ORDERABLES Fin al Result * (ABNORMAL) POCT ISTAT BLOOD GAS VENOUS (10/03/2024 12:44 AM EDT) POCT pH Venous 7.44(H) 7.32 - 7.43 10/03/2024 12:49 AM EDT [facility] POCT PCO2 Venous 42 37 - 52 mm Hg 10/03/2024 12:49 AM EDT [facility] POCT PO2 Venous 58(H) 25 - 40 mm Hg 10/03/2024 12:49 AM EDT [facility] POCT HCO3 Calculated Venous 28.1(H) 22 - 26 mmol/L 10/03/2024 12:49 AM EDT [facility] POC BE Calculated, Venous 3.0 -2 - 3 mmol/L 10/03/2024 12:49 AM EDT [facility] POCT SO2 Calculated, Venous 90.0(H) 65 - 80 % 10/03/2024 12:49 AM EDT [facility] POCT Lactate Venous 0.7 0.5 - 2.2 mmol/L 10/03/2024 12:49 AM EDT [facility] Coiled Tubing Operator ID Khang Puri 10/03/2024 12:49 AM EDT HEALTHCARE LAB Device ID [id number] 10/03/2024 12:49 AM EDT [facility] Blood, Venous Venous blood specimen / Unknown 10/03/2024 12:44 AM EDT 10/03/2024 12:49 AM EDT us Momo Akhtar MD LAB POINT OF CARE TE ST DOCKED DEVICE UNSOLICITED RESULTS Final Result Performing Organization Address City/[facility]/ZIP Co de Phone Number [facility] [address] [place] [address] * Light Blue Top (10/03/2024 12:42 AM EDT) Extra Hold for add-ons 10/03/2024 3:02 AM EDT [facility] Comment:Auto resulted. Blood Venous blood specimen / Unknown 10/03/2024 12:42 AM EDT 10/03/2024 12:46 AM EDT us Momo Akhtar MD LAB BLOOD ORDERABLES Final Resu lt Performing Organization Address [facility] Co de Phone Number [facility] [address] [place] [address] * Phosphorus, Plasma (10/03/2024 12:42 AM EDT) Phosphorus, Plasma 2.8 2.5 - 4.5 mg/dL 10/03/2024 1:15 AM EDT [facility] Blood Venous blood specimen / Unknown Venipuncture / Unknown 10/03/2024 12:42 AM EDT 10/03/2024 12:45 AM EDT us aGrcia Lutz MD LAB BLOOD ORDERABLES Final Resul t Performing Organization Address City/[facility]/ZIP Co de Phone Number [facility] [address] [place] [address] * Magnesium, Plasma (10/03/2024 12:42 AM EDT) Magnesium, Plasma 2.0 1.9 - 2.4 mg/dL 10/03/2024 1:15 AM EDT [facility] Blood Venous blood specimen / Unknown Venipuncture / Unknown 10/03/2024 12:42 AM EDT 10/03/2024 12:45 AM EDT us Garcia Lutz MD LAB BLOOD ORDERABLES Final Resul t [facility] [address] [place] [address] * (ABNORMAL) CBC and Differential (10/03/2024 12:42 AM EDT) WBC Count 3.59(L) 3.70 - 10.30 10*3/uL LAB HEMATOLOGY METHOD 10/03/2024 1:32 AM EDT [facility] RBC Count 3.54(L) 3.90 - 5.20 10*6/uL LAB HEMATOLOGY METHOD 10/03/2024 1:32 AM EDT [facility] HGB 12.1 11.2 - 15.7 g/dL LAB HEMATOLOGY METHOD 10/03/2024 1:32 AM EDT [facility] HCT 34.7 34.0 - 45.0 % LAB HEMATOLOGY METHOD 10/03/2024 1:32 AM EDT [facility] Platelet Count 91(L) 155 - 369 10*3/uL LAB HEMATOLOGY METHOD 10/03/2024 1:32 AM EDT [facility] MCV 98 79 - 98 fL LAB HEMATOLOGY METHOD 10/03/2024 1:32 AM EDT [facility] MCH 34.2(H) 26.0 - 32.0 pg LAB HEMATOLOGY METHOD 10/03/2024 1:32 AM EDT [facility] MCHC 34.9 30.7 - 35.5 g/dL LAB HEMATOLOGY METHOD 10/03/2024 1:32 AM EDT [facility] RDW 13.9 11.5 - 14.5 % LAB HEMATOLOGY METHOD 10/03/2024 1:32 AM EDT [facility] MPV 9.0 8.8 - 12.5 fL LAB HEMATOLOGY METHOD 10/03/2024 1:32 AM EDT [facility] nRBC 0.0 <=0.0 per 100 WBCs LAB HEMATOLOGY METHOD 10/03/2024 1:32 AM EDT [facility] Differential Type Automated LAB HEMATOLOGY METHOD 10/03/2024 1:32 AM EDT [facility] Neutrophils % 49 % LAB HEMATOLOGY METHOD 10/03/2024 1:32 AM EDT [facility] Lymphocytes % 31 % LAB HEMATOLOGY METHOD 10/03/2024 1:32 AM EDT [facility] Monocytes % 13 % LAB HEMATOLOGY METHOD 10/03/2024 1:32 AM EDT [facility] Eosinophils % 6 % LAB HEMATOLOGY METHOD 10/03/2024 1:32 AM EDT [facility] Basophils % 1 % LAB HEMATOLOGY METHOD 10/03/2024 1:32 AM EDT [facility] Immature Granulocytes % 0 % LAB HEMATOLOGY METHOD 10/03/2024 1:32 AM EDT [facility] Neutrophils Absolute 1.76 1.60 - 6.10 10*3/uL LAB HEMATOLOGY METHOD 10/03/2024 1:32 AM EDT [facility] Lymphocytes Absolute 1.12(L) 1.20 - 3.90 10*3/uL LAB HEMATOLOGY METHOD 10/03/2024 1:32 AM EDT [facility] Monocytes Absolute 0.46 0.30 - 0.90 10*3/uL LAB HEMATOLOGY METHOD 10/03/2024 1:32 AM EDT [facility] Eosinophils Absolute 0.22 0.00 - 0.50 10*3/uL LAB HEMATOLOGY METHOD 10/03/2024 1:32 AM EDT [facility] Basophils Absolute 0.02 0.00 - 0.10 10*3/uL LAB HEMATOLOGY METHOD 10/03/2024 1:32 AM EDT [facility] Immature Granulocytes Absolute 0.01 0.00 - 0.06 10*3/uL LAB HEMATOLOGY METHOD 10/03/2024 1:32 AM EDT [facility] Blood Venous blood specimen / Unknown Venipuncture / Unknown 10/03/2024 12:42 AM EDT 10/03/2024 12:45 AM EDT Narrative [facility] - 10/03/2024 1:32 AM EDT Therapeutic decision making should be based on absolute values, rather than percentages. us Garcia Lutz MD LAB BLOOD ORDERABLES Final Resul t [facility] [address] [place] [address] * (ABNORMAL) Comprehensive metabolic panel (10/03/2024 12:42 AM EDT) Glucose, Plasma 96 74 - 99 mg/dL 10/03/2024 1:15 AM EDT [facility] BUN, Plasma 7 7 - 21 mg/dL 10/03/2024 1:15 AM EDT [facility] Creatinine, Plasma 1.13(H) 0.60 - 1.10 mg/dL 10/03/2024 1:15 AM EDT [facility] BUN/Creatinine Ratio 6 10/03/2024 1:15 AM EDT [facility] Sodium, Plasma 139 136 - 145 mmol/L 10/03/2024 1:15 AM EDT [facility] Potassium, Plasma 4.1 3.6 - 4.9 mmol/L 10/03/2024 1:15 AM EDT [facility] Chloride, Plasma 108(H) 97 - 107 mmol/L 10/03/2024 1:15 AM EDT [facility] CO2, Plasma 24 22 - 29 mmol/L 10/03/2024 1:15 AM EDT [facility] Anion Gap 7 6 - 16 mmol/L 10/03/2024 1:15 AM EDT [facility] Total Calcium, Plasma 9.3 8.9 - 10.2 mg/dL 10/03/2024 1:15 AM EDT [facility] Total Protein 6.4 6.3 - 7.9 g/dL 10/03/2024 1:15 AM EDT [facility] Albumin, Plasma 3.4(L) 3.5 - 5.2 g/dL 10/03/2024 1:15 AM EDT [facility] AST, Plasma 50(H) 10 - 35 U/L 10/03/2024 1:15 AM EDT [facility] Comment:Hemolyzed, result ma y be falsely increased. ALT, Plasma 27 10 - 35 U/L 10/03/2024 1:15 AM EDT [facility] Alkaline Phosphatase, Plasma 73 35 - 104 U/L 10/03/2024 1:15 AM EDT [facility] Total Bilirubin, Plasma 1.1 0.2 - 1.1 mg/dL 10/03/2024 1:15 AM EDT [facility] eGFRcr 58.3 mL/min/1.7 3m*2 10/03/2024 1:15 AM EDT [facility] Comment:Reported eGFRcr in m L/min/1.73m2 is based the CKD-EPI 2020 equation that does not use a race coefficient. Blood Venous blood specimen / Unknown Venipuncture / Unknown 10/03/2024 12:42 AM EDT 10/03/2024 12:45 AM EDT Momo Akhtar MD LAB BLOOD ORDERABLES Final Resu lt [facility] [address] [place] [address] * (ABNORMAL) POCT glucose meter (10/03/2024 12:24 AM EDT) POCT Glucose 100(H) 74 - 99 mg/dL 10/03/2024 12:25 AM [facility]T [facility] Comment:Accuracy of a glucos e result obtained from a capillary whole blood specimen relies upon adequate, non-compromised capillary blood flow. If the capillary glucose result is not consistent with the patient's clinical signs and symptoms, glucose testing should be repeated with either an arterial or venous sample on the glucometer or sent to the main labortory for testing. Comment 10/03/2024 12:25 AM EDT [facility] Coiled Tubing Operator ID Caren Maravilla [id number] 12:25 AM EDT [facility] LAB Device ID [id number] 10/03/2024 12:25 AM EDT [facility] Specimen Type POC Capillary 10/03/2024 12:25 AM EDT [facility] Blood Capillary blood specimen / Unknown 10/03/2024 12:24 AM EDT 10/03/2024 12:25 AM EDT Momo Akhtar MD LAB POINT OF CARE TE ST DOCKED DEVICE UNSOLICITED RESULTS Final Result Performing Organization Address [facility] de Phone Number [facility] [address] [place] [address] * (ABNORMAL) POCT glucose meter (10/02/2024 11:56 PM EDT) [facility] POCT Glucose 103(H) 74 - 99 mg/dL 10/02/2024 11:58 PM EDT [facility] Comment:Accuracy of a glucos e result obtained from a capillary whole blood specimen relies upon adequate, non-compromised capillary blood flow. If the capillary glucose result is not consistent with the patient's clinical signs and symptoms, glucose testing should be repeated with either an arterial or venous sample on the glucometer or sent to the main labortory for testing. Comment 10/02/2024 11:58 PM EDT [facility] Coiled Tubing Operator ID Maisha Wright 10/02/2024 11:58 PM EDT [facility] Device ID [id number] 10/02/2024 11:58 PM EDT [facility] Specimen Type POC Capillary 10/02/2024 11:58 PM EDT [facility] Blood Capillary blood specimen / Unknown 10/02/2024 11:56 PM EDT 10/02/2024 11:58 PM EDT Momo Akhtar MD LAB POINT OF CARE TE ST DOCKED DEVICE UNSOLICITED RESULTS Final Result Performing Organization Address City/[facility] Co de Phone Number [facility] [address] [place] [address] * (ABNORMAL) POCT glucose meter (10/02/2024 6:29 PM EDT) [facility] POCT Glucose 110(H) 74 - 99 mg/dL 10/02/2024 6:30 PM EDT [facility] Comment:Accuracy of a glucos e result obtained from a capillary whole blood specimen relies upon adequate, non-compromised capillary blood flow. If the capillary glucose result is not consistent with the patient's clinical signs and symptoms, glucose testing should be repeated with either an arterial or venous sample on the glucometer or sent to the main labortory for testing. Comment 10/02/2024 6:30 PM EDT [facility] Coiled Tubing Operator ID Klever Ware 10/02/2024 6:30 PM EDT [facility] Device ID [id number] 10/02/2024 6:30 PM EDT [facility] Specimen Type POC Capillary 10/02/2024 6:30 PM EDT [facility] Blood Capillary blood specimen / Unknown 10/02/2024 6:29 PM EDT 10/02/2024 6:30 PM EDT us Momo Akhtar MD LAB POINT OF CARE TE ST DOCKED DEVICE UNSOLICITED RESULTS Final Result Performing Organization Address City/[facility] Co de Phone Number [facility] [address] [place] [address] * POCT glucose meter (10/02/2024 6:08 PM EDT) [facility] POCT Glucose 81 74 - 99 mg/dL 10/02/2024 6:09 PM EDT [facility] Comment:Accuracy of a glucos e result obtained from a capillary whole blood specimen relies upon adequate, non-compromised capillary blood flow. If the capillary glucose result is not consistent with the patient's clinical signs and symptoms, glucose testing should be repeated with either an arterial or venous sample on the glucometer or sent to the main labortory for testing. Comment 10/02/2024 6:09 PM EDT [facility] Coiled Tubing Operator ID Klever Ware 10/02/2024 6:09 PM EDT [facility] Device ID [id number] 10/02/2024 6:09 PM EDT [facility] Specimen Type POC Capillary 10/02/2024 6:09 PM EDT [facility] Blood Capillary blood specimen / Unknown 10/02/2024 6:08 PM EDT 10/02/2024 6:09 PM EDT us Momo Akhtar MD LAB POINT OF CARE TE ST DOCKED DEVICE UNSOLICITED RESULTS Final Result [facility] [address] [place] [address] * (ABNORMAL) POCT glucose meter (10/02/2024 12:16 PM EDT) [facility] POCT Glucose 139(H) 74 - 99 mg/dL 10/02/2024 12:18 PM EDT [facility] Comment:Accuracy of a glucos e result obtained from a capillary whole blood specimen relies upon adequate, non-compromised capillary blood flow. If the capillary glucose result is not consistent with the patient's clinical signs and symptoms, glucose testing should be repeated with either an arterial or venous sample on the glucometer or sent to the main labortory for testing. Comment 10/02/2024 12:18 PM EDT [facility] Coiled Tubing Operator ID OliveiraTory 10/03/19 12:18 PM EDT [facility] Device ID [id number] 10/02/2024 12:18 PM EDT [facility] Specimen Type POC Capillary 10/02/2024 12:18 PM EDT [facility] Blood Capillary blood specimen / Unknown 10/02/2024 12:16 PM EDT 10/02/2024 12:18 PM EDT Momo Akhtar MD LAB POINT OF CARE TE ST DOCKED DEVICE UNSOLICITED RESULTS Final Result [facility] [address] [place] [address] * (ABNORMAL) POCT glucose meter (10/02/2024 6:16 AM EDT) [facility] POCT Glucose 111(H) 74 - 99 mg/dL 10/02/2024 6:17 AM EDT [facility] Comment:Accuracy of a glucos e result obtained from a capillary whole blood specimen relies upon adequate, non-compromised capillary blood flow. If the capillary glucose result is not consistent with the patient's clinical signs and symptoms, glucose testing should be repeated with either an arterial or venous sample on the glucometer or sent to the main labortory for testing. Comment 10/02/2024 6:17 AM EDT [facility] Coiled Tubing Operator ID Caren Maravilla 6:17 AM EDT [facility] Device ID [id number] 10/02/2024 6:17 AM EDT [facility] Specimen Type POC Capillary 10/02/2024 6:17 AM EDT [facility] Blood Capillary blood specimen / Unknown 10/02/2024 6:16 AM EDT 10/02/2024 6:17 AM EDT Momo Akhtar MD LAB POINT OF CARE TE ST DOCKED DEVICE UNSOLICITED RESULTS Final Result Performing Organization Address City/[facility] de Phone Number [facility]ALTHCARE LAB [address] [place] [address] * POCT glucose meter (10/02/2024 5:37 AM EDT) POCT Glucose 82 74 - 99 mg/dL 10/02/2024 5:38 AM EDT [facility] Comment:Accuracy of a glucos e result obtained from a capillary whole blood specimen relies upon adequate, non-compromised capillary blood flow. If the capillary glucose result is not consistent with the patient's clinical signs and symptoms, glucose testing should be repeated with either an arterial or venous sample on the glucometer or sent to the main labortory for testing. Comment 10/02/2024 5:38 AM EDT [facility] Coiled Tubing Operator ID Maisha Wright 10/02/2024 5:38 AM EDT [facility] Device ID [id number] 10/02/2024 5:38 AM EDT HEALTHCARE LAB Specimen Type POC Capillary 10/02/2024 5:38 AM EDT [facility] Blood Capillary blood specimen / Unknown 10/02/2024 5:37 AM EDT 10/02/2024 5:38 AM EDT us Momo Akhtar MD LAB POINT OF CARE TE ST DOCKED DEVICE UNSOLICITED RESULTS Final Result Performing Organization Address City/[facility] Co de Phone Number [facility]ALTHCARE LAB [address] [place] [address] * POCT glucose meter (10/02/2024 1:03 AM EDT) POCT Glucose 97 74 - 99 mg/dL 10/02/2024 1:04 AM EDT [facility] Comment:Accuracy of a glucos e result obtained from a capillary whole blood specimen relies upon adequate, non-compromised capillary blood flow. If the capillary glucose result is not consistent with the patient's clinical signs and symptoms, glucose testing should be repeated with either an arterial or venous sample on the glucometer or sent to the main labortory for testing. Comment 10/02/2024 1:04 AM EDT [facility] Coiled Tubing Operator ID Caren Maravilla 025 1:04 AM EDT [facility] Device ID [id number] 10/02/2024 1:04 AM EDT [facility] Specimen Type POC Capillary 10/02/2024 1:04 AM EDT [facility] Blood Capillary blood specimen / Unknown 10/02/2024 1:03 AM EDT 10/02/2024 1:04 AM EDT Momo Akhtar MD LAB POINT OF CARE TE ST DOCKED DEVICE UNSOLICITED RESULTS Final Result Performing Organization Address City/State/[facility] Co de Phone Number [facility] [address] [place] [address] * (ABNORMAL) POCT glucose meter (10/02/2024 12:27 AM EDT) [facility] Signature POCT Glucose 131(H) 74 - 99 mg/dL 10/02/2024 12:29 AM EDT [facility]ALTH[facility] Comment:Accuracy of a glucos e result obtained from a capillary whole blood specimen relies upon adequate, non-compromised capillary blood flow. If the capillary glucose result is not consistent with the patient's clinical signs and symptoms, glucose testing should be repeated with either an arterial or venous sample on the glucometer or sent to the main labortory for testing. Comment 10/02/2024 12:29 AM EDT [facility] Coiled Tubing Operator ID Caren Maravilla 025 12:29 AM EDT [facility] Device ID [id number] 10/02/2024 12:29 AM EDT [facility] Specimen Type POC Capillary 10/02/2024 12:29 AM EDT [facility] Blood Capillary blood specimen / Unknown 10/02/2024 12:27 AM EDT 10/02/2024 12:29 AM EDT Momo Akhtar MD LAB POINT OF CARE TE ST DOCKED DEVICE UNSOLICITED RESULTS Final Result Performing Organization Address [facility] Co de Phone Number [facility]ALTH[facility]ARE [facility] [address] [place] [address] * (ABNORMAL) POCT glucose meter (10/02/2024 12:02 AM EDT) POCT Glucose 56(L) 74 - 99 mg/dL 10/02/2024 12:05 AM EDT [facility] Comment:Accuracy of a glucos e result obtained from a capillary whole blood specimen relies upon adequate, non-compromised capillary blood flow. If the capillary glucose result is not consistent with the patient's clinical signs and symptoms, glucose testing should be repeated with either an arterial or venous sample on the glucometer or sent to the main labortory for testing. Comment 10/02/2024 12:05 AM EDT [facility] Coiled Tubing Operator ID [email or web address] dey 10/02/2024 12:05 AM EDT [facility] LAB Device ID [id number] 10/02/2024 12:05 AM EDT [facility]ALTH[facility]ARE LAB Specimen Type POC Capillary 10/02/2024 12:05 AM EDT [facility] Blood Capillary blood specimen / Unknown 10/02/2024 12:02 AM EDT 10/02/2024 12:05 AM EDT Momo Akhtar MD LAB POINT OF CARE TE ST DOCKED DEVICE UNSOLICITED RESULTS Final Result Performing Organization Address City/[facility] Co de Phone Number [facility]ALTH[facility]ARE [facility] [address] [place] [address] * (ABNORMAL) CBC W/O Differential (10/01/2024 5:50 PM EDT) WBC Count 3.20(L) 3.70 - 10.30 10*3/uL LAB HEMATOLOGY METHOD 10/01/2024 6:15 PM EDT [facility] RBC Count 3.83(L) 3.90 - 5.20 10*6/uL LAB HEMATOLOGY METHOD 10/01/2024 6:15 PM EDT [facility] HGB 13.1 11.2 - 15.7 g/dL LAB HEMATOLOGY METHOD 10/01/2024 6:15 PM EDT [facility] HCT 37.2 34.0 - 45.0 % LAB HEMATOLOGY METHOD 10/01/2024 6:15 PM EDT [facility] Platelet Count 100(L) 155 - 369 10*3/uL LAB HEMATOLOGY METHOD 10/01/2024 6:15 PM EDT [facility] MCV 97 79 - 98 fL LAB HEMATOLOGY METHOD 10/01/2024 6:15 PM EDT [facility] MCH 34.2(H) 26.0 - 32.0 pg LAB HEMATOLOGY METHOD 10/01/2024 6:15 PM EDT [facility] MCHC 35.2 30.7 - 35.5 g/dL LAB HEMATOLOGY METHOD 10/01/2024 6:15 PM EDT [facility] RDW 14.0 11.5 - 14.5 % LAB HEMATOLOGY METHOD 10/01/2024 6:15 PM EDT [facility] MPV 8.4(L) 8.8 - 12.5 fL LAB HEMATOLOGY METHOD 10/01/2024 6:15 PM EDT [facility] nRBC 0.0 <=0.0 per 100 WBCs LAB HEMATOLOGY METHOD 10/01/2024 6:15 PM EDT [facility] Blood Venous blood specimen / Unknown Venipuncture / Unknown 10/01/2024 5:50 PM EDT 10/01/2024 5:58 PM EDT us Momo Akhtar MD LAB BLOOD ORDERABLES Final Resu lt [facility] [address] [place] [address] * (ABNORMAL) Comprehensive metabolic panel (10/01/2024 5:50 PM EDT) [facility] Glucose, Plasma 83 74 - 99 mg/dL 10/01/2024 6:27 PM EDT [facility] BUN, Plasma 11 7 - 21 mg/dL 10/01/2024 6:27 PM EDT [facility] Creatinine, Plasma 1.17(H) 0.60 - 1.10 mg/dL 10/01/2024 6:27 PM EDT [facility] BUN/Creatinine Ratio 9 10/01/2024 6:27 PM EDT [facility] Sodium, Plasma 139 136 - 145 mmol/L 10/01/2024 6:27 PM EDT [facility] Potassium, Plasma 4.3 3.6 - 4.9 mmol/L 10/01/2024 6:27 PM EDT [facility] Chloride, Plasma 107 97 - 107 mmol/L 10/01/2024 6:27 PM EDT [facility] CO2, Plasma 22 22 - 29 mmol/L 10/01/2024 6:27 PM EDT [facility] Anion Gap 10 6 - 16 mmol/L 10/01/2024 6:27 PM EDT [facility] Total Calcium, Plasma 9.4 8.9 - 10.2 mg/dL 10/01/2024 6:27 PM EDT [facility] Total Protein 6.6 6.3 - 7.9 g/dL 10/01/2024 6:27 PM EDT [facility] Albumin, Plasma 3.6 3.5 - 5.2 g/dL 10/01/2024 6:27 PM EDT [facility] AST, Plasma 46(H) 10 - 35 U/L 10/01/2024 6:27 PM EDT [facility] ALT, Plasma 24 10 - 35 U/L 10/01/2024 6:27 PM EDT [facility] Alkaline Phosphatase, Plasma 75 35 - 104 U/L 10/01/2024 6:27 PM EDT [facility] Total Bilirubin, Plasma 1.3(H) 0.2 - 1.1 mg/dL 10/01/2024 6:27 PM EDT [facility] eGFRcr 55.9 mL/min/1.7 3m*2 10/01/2024 6:27 PM EDT [facility] Comment:Reported eGFRcr in m L/min/1.73m2 is based the CKD-EPI 2020 equation that does not use a race coefficient. Blood Venous blood specimen / Unknown Venipuncture / Unknown 10/01/2024 5:50 PM EDT 10/01/2024 5:58 PM EDT Momo Akhtar MD LAB BLOOD ORDERABLES Final Resu lt Performing Organization Address [facility]/ZIP Co de Phone Number [facility] [address] [place] [address] * Multi Drug Resistance Test (10/01/2024 11:36 AM EDT) Pathologist [facility] Culture No growth at day 1 10/02/2024 1:51 PM EDT [facility] Swab (Nares and Dorys Rectal) Non-blood Collection / Unknown 10/01/2024 11:36 AM EDT 10/01/2024 11:45 AM EDT Narrative [facility] - 10/02/2024 1:51 PM EDT This test was developed and its performance characteristics determined by the [facility]. Although the media is FDA-approved, it is not FDA-approved for all specimen types submitted. The FDA has determined that such clearance or approval is not necessary. This test is used for surveillance purposes. It should not be regarded as investigational or for research. The [facility] is certified under the Clinical Laboratory Improvement Amendments of 1988 (CLIA-88) as qualified to perform high complexity clinical laboratory testing. Momo Akhtar MD LAB MICROBIOLOGY - [facility]AL [facility] Final Result Performing Organization Address [facility] Co de Phone Number [facility] [address] [place] [address] * (ABNORMAL) POCT glucose meter (10/01/2024 11:32 AM EDT) [facility] POCT Glucose 103(H) 74 - 99 mg/dL 10/01/2024 11:34 AM EDT [facility] Comment:Accuracy of a glucos e result obtained from a capillary whole blood specimen relies upon adequate, non-compromised capillary blood flow. If the capillary glucose result is not consistent with the patient's clinical signs and symptoms, glucose testing should be repeated with either an arterial or venous sample on the glucometer or sent to the main labortory for testing. Comment 10/01/2024 11:34 AM EDT [facility] Coiled Tubing Operator ID Yvette Almazan 10/01/2024 11:34 AM EDT [facility] Device ID [id number] 10/01/2024 11:34 AM EDT [facility] Specimen Type POC Capillary 10/01/2024 11:34 AM EDT [facility] Blood Capillary blood specimen / Unknown 10/01/2024 11:32 AM EDT 10/01/2024 11:34 AM EDT Momo Akhtar MD LAB POINT OF CARE TE ST DOCKED DEVICE UNSOLICITED RESULTS Final Result Performing Organization Address City/[facility]/ZIP Co de Phone Number [facility] [address] [place] [address] * (ABNORMAL) POCT glucose meter (10/01/2024 8:35 AM EDT) Pathologist [facility] POCT Glucose 138(H) 74 - 99 mg/dL 10/01/2024 8:36 AM EDT [facility] Comment:Accuracy of a glucos e result obtained from a capillary whole blood specimen relies upon adequate, non-compromised capillary blood flow. If the capillary glucose result is not consistent with the patient's clinical signs and symptoms, glucose testing should be repeated with either an arterial or venous sample on the glucometer or sent to the main labortory for testing. Comment 10/01/2024 8:36 AM EDT [facility] Coiled Tubing Operator ID Yvette Almazan 10/01/2024 8:36 AM EDT [facility] Device ID [id number] 10/01/2024 8:36 AM EDT [facility] Specimen Type POC Capillary 10/01/2024 8:36 AM EDT [facility] Blood Capillary blood specimen / Unknown 10/01/2024 8:35 AM EDT 10/01/2024 8:36 AM EDT us Momo Akhtar MD LAB POINT OF CARE TE ST DOCKED DEVICE UNSOLICITED RESULTS Final Result Performing Organization Address City/[facility]/ZIP Co de Phone Number [facility] [address] [place] [address] * POCT glucose meter (10/01/2024 7:57 AM EDT) POCT Glucose 78 74 - 99 mg/dL 10/01/2024 7:58 AM EDT [facility] Comment:Accuracy of a glucos e result obtained from a capillary whole blood specimen relies upon adequate, non-compromised capillary blood flow. If the capillary glucose result is not consistent with the patient's clinical signs and symptoms, glucose testing should be repeated with either an arterial or venous sample on the glucometer or sent to the main labortory for testing. Comment 10/01/2024 7:58 AM EDT [facility] Coiled Tubing Operator ID Erika Joya 10/01/2024 7:58 AM EDT [facility] Device ID [id number] 10/01/2024 7:58 AM EDT [facility] Specimen Type POC Capillary 10/01/2024 7:58 AM EDT [facility] Blood Capillary blood specimen / Unknown 10/01/2024 7:57 AM EDT 10/01/2024 7:58 AM EDT Momo Akhtar MD LAB POINT OF CARE TE ST DOCKED DEVICE UNSOLICITED RESULTS Final Result [facility] [address] [place] [address] * POCT glucose meter (10/01/2024 6:13 AM EDT) [facility] POCT Glucose 85 74 - 99 mg/dL 10/01/2024 6:15 AM EDT [facility] Comment:Accuracy of a glucos e result obtained from a capillary whole blood specimen relies upon adequate, non-compromised capillary blood flow. If the capillary glucose result is not consistent with the patient's clinical signs and symptoms, glucose testing should be repeated with either an arterial or venous sample on the glucometer or sent to the main labortory for testing. Comment 10/01/2024 6:15 AM EDT [facility] Coiled Tubing Operator ID Cristian Kent 10/01/2024 6:15 AM EDT [facility] Device ID [id number] 10/01/2024 6:15 AM EDT [facility] Specimen Type POC Capillary 10/01/2024 6:15 AM EDT [facility] Blood Capillary blood specimen / Unknown 10/01/2024 6:13 AM EDT 10/01/2024 6:15 AM EDT Rosetta Matthews MD LAB POINT OF CARE TE ST DOCKED DEVICE UNSOLICITED RESULTS Final Result Performing Organization Address City/[facility]/ZIP Co de Phone Number [facility] [address] [place] [address] * Folate (10/01/2024 5:53 AM EDT) Folate, Serum 9.7 >4.6 ng/mL 10/01/2024 6:50 AM EDT [facility] Blood Venous blood specimen / Unknown Venipuncture / Unknown 10/01/2024 5:53 AM EDT 10/01/2024 6:06 AM EDT Leon Ramirez RIVETING MACHINE OPERATOR TAPE CONTROL, DNP LAB BLOOD ORDERABLES Fi nal Result Performing Organization Address [facility] Co de Phone Number [facility] [address] [place] [address] * Zinc (10/01/2024 4:40 AM EDT) Zinc, Serum/Plasma 62.6 60.0 - 120.0 ug/dL 10/03/2024 5:03 AM EDT [facility] ([facility]) Blood Venous blood specimen / Unknown Venipuncture / Unknown 10/01/2024 4:40 AM EDT 10/01/2024 5:01 AM EDT Narrative [facility] ([facility]) - 10/03/2024 5:03 AM EDT INTERPRETIVE INFORMATION: Zinc, Serum or Plasma Elevated results may be due to skin or collection-related contamination, including the use of a noncertified metal-free collection/transport tube. If contamination concerns exist due to elevated levels of serum/plasma zinc, confirmation with a second specimen collected in a certified metal-free tube is recommended. Circulating zinc concentrations are dependent on albumin status and are depressed with malnutrition. Zinc may also be lowered with infection, inflammation, stress, oral contraceptives, and . Zinc may be elevated with zinc supplementation or fasting. Elevated zinc concentrations may interfere with copper absorption. This test was developed and its performance characteristics determined by [facility] [employer] It has not been cleared or approved by the [place] Food and Drug Administration. This test was performed in a CLIA certified laboratory and is intended for clinical purposes. Performed By: [facility] [address] [place] [address] Hospitality Team Member: Darryl Corado MD, PhD CLIA Number: [id number] Leon Ramirez RIVETING MACHINE OPERATOR TAPE CONTROL, DNP LAB BLOOD ORDERABLES Fi nal Result [facility] ([facility]) [address] [place] [address] * (ABNORMAL) CBC and differential (10/01/2024 3:52 AM EDT) WBC Count 4.21 3.70 - 10.30 10*3/uL LAB HEMATOLOGY METHOD 10/01/2024 4:18 AM EDT [facility] RBC Count 4.08 3.90 - 5.20 10*6/uL LAB HEMATOLOGY METHOD 10/01/2024 4:18 AM EDT [facility] HGB 13.8 11.2 - 15.7 g/dL LAB HEMATOLOGY METHOD 10/01/2024 4:18 AM EDT [facility] HCT 39.9 34.0 - 45.0 % LAB HEMATOLOGY METHOD 10/01/2024 4:18 AM EDT [facility] Platelet Count 106(L) 155 - 369 10*3/uL LAB HEMATOLOGY METHOD 10/01/2024 4:18 AM EDT [facility] MCV 98 79 - 98 fL LAB HEMATOLOGY METHOD 10/01/2024 4:18 AM EDT [facility] MCH 33.8(H) 26.0 - 32.0 pg LAB HEMATOLOGY METHOD 10/01/2024 4:18 AM EDT [facility] MCHC 34.6 30.7 - 35.5 g/dL LAB HEMATOLOGY METHOD 10/01/2024 4:18 AM EDT [facility] RDW 13.9 11.5 - 14.5 % LAB HEMATOLOGY METHOD 10/01/2024 4:18 AM EDT [facility] MPV 8.4(L) 8.8 - 12.5 fL LAB HEMATOLOGY METHOD 10/01/2024 4:18 AM EDT [facility] nRBC 0.0 <=0.0 per 100 WBCs LAB HEMATOLOGY METHOD 10/01/2024 4:18 AM EDT [facility] Differential Type Automated LAB HEMATOLOGY METHOD 10/01/2024 4:18 AM EDT [facility] Neutrophils % 58 % LAB HEMATOLOGY METHOD 10/01/2024 4:18 AM EDT [facility] Lymphocytes % 20 % LAB HEMATOLOGY METHOD 10/01/2024 4:18 AM EDT [facility] Monocytes % 13 % LAB HEMATOLOGY METHOD 10/01/2024 4:18 AM EDT [facility] Eosinophils % 7 % LAB HEMATOLOGY METHOD 10/01/2024 4:18 AM EDT [facility] Basophils % 1 % LAB HEMATOLOGY METHOD 10/01/2024 4:18 AM EDT [facility] Immature Granulocytes % 1 % LAB HEMATOLOGY METHOD 10/01/2024 4:18 AM EDT [facility] Neutrophils Absolute 2.49 1.60 - 6.10 10*3/uL LAB HEMATOLOGY METHOD 10/01/2024 4:18 AM EDT [facility] Lymphocytes Absolute 0.85(L) 1.20 - 3.90 10*3/uL LAB HEMATOLOGY METHOD 10/01/2024 4:18 AM EDT [facility] Monocytes Absolute 0.53 0.30 - 0.90 10*3/uL LAB HEMATOLOGY METHOD 10/01/2024 4:18 AM EDT [facility] Eosinophils Absolute 0.28 0.00 - 0.50 10*3/uL LAB HEMATOLOGY METHOD 10/01/2024 4:18 AM EDT [facility] Basophils Absolute 0.04 0.00 - 0.10 10*3/uL LAB HEMATOLOGY METHOD 10/01/2024 4:18 AM EDT [facility] Immature Granulocytes Absolute 0.02 0.00 - 0.06 10*3/uL LAB HEMATOLOGY METHOD 10/01/2024 4:18 AM EDT [facility] Blood Venous blood specimen / Unknown Venipuncture / Unknown 10/01/2024 3:52 AM EDT 10/01/2024 4:10 AM EDT [facility] - 10/01/2024 4:18 AM EDT Therapeutic decision making should be based on absolute values, rather than percentages. Leon Ramirez APRN, DNP LAB BLOOD ORDERABLES Fi nal Result Performing Organization Address [facility] Co de Phone Number [facility] [address] [place] [address] * Alcohol Urine (10/01/2024 2:50 AM EDT) Alcohol Urine Negative Negative 10/01/2024 5:40 AM EDT [facility] Urine Urine specimen obtained by clean catch procedure / Unknown Non-blood Collection / Unknown 10/01/2024 2:50 AM EDT 10/01/2024 3:04 AM EDT Narrative [facility] - 10/01/2024 5:40 AM EDT The correlation between urine and serum ethanol concentration is highly variable. Test performed by Gas Chromatography at the [facility]. This test was developed and its performance characteristics determined by [facility]. It has not been cleared or approved by the FDA.The laboratory is regulated under CLIA as qualified to perform high-complexity testing. This test is used for clinical purposes only. Leon Ramirez APRN, DNP LAB URINE ORDERABLES Fi nal Result Performing Organization Address [facility] [place] [address] * Blood Culture (Aerobic/Anaerobet Set) (10/01/2024 12:40 AM EDT) Culture No growth at day 5 10/06/2024 2:02 AM EDT [facility] Blood Venous blood specimen / Unknown Venipuncture / Unknown 10/01/2024 12:40 AM EDT 10/01/2024 1:46 AM EDT Narrative [facility] - 10/06/2024 2:02 AM EDT Low blood volume submitted, results may be compromised Leon Ramirez APRN, OLVIN LAB MICROBIOLOGY - GENE RAL ORDERABLES Final Result Performing Organization Address City/[facility] Co de Phone Number [facility] [address] [place] [address] * Vitamin B12 (09/30/2024 10:22 PM EDT) Pathologist [facility] Vitamin B12, Serum 607 210 - 1,033 pg/mL 09/30/2024 11:19 PM EDT [facility] Blood Venous blood specimen / Unknown Venipuncture / Unknown 09/30/2024 10:22 PM EDT 09/30/2024 10:34 PM EDT Leon W Ceci ANNN, DNP LAB BLOOD ORDERABLES Fi nal Result [facility] [address] [place] [address] * Hepatitis panel, acute (09/30/2024 10:22 PM EDT) Pathologist [facility] Hepatitis B Surf Antigen Negative Negative 10/01/2024 12:57 AM EDT [facility] Hepatitis A Antibody IgM Negative Negative 10/01/2024 12:57 AM EDT [facility] Hepatitis B Core Antibody IgM Negative Negative 10/01/2024 12:57 AM EDT [facility] Blood Venous blood specimen / Unknown Venipuncture / Unknown 09/30/2024 10:22 PM EDT 09/30/2024 10:34 PM EDT Narrative [facility] - 10/01/2024 12:57 AM EDT Hepatitis C Antibody previously reported on patient within 24hrs and will not be repeated on this panel. See previous results below: Hepatitis C Antibody Date Value Ref Range Status 09/30/2024 Negative Negative Final Leon W Ceci RIVETING MACHINE OPERATOR TAPE CONTROL, DNP LAB BLOOD [place] [address] * Cortisol (09/30/2024 10:22 PM EDT) Pathologist [facility] Cortisol 3.70 Before 10am: 3.7 - 19.4. After 5pm: 2.9 - 17.3 ug/dL 09/30/2024 11:59 PM EDT [facility] Comment:Testing performed on [employer], standardized against RESIDENTIAL Reference Standard concentration values assigned by LC-MS/MS and verified by BCR 192 and BCR 193 certified reference materials. Blood Venous blood specimen / Unknown Venipuncture / Unknown 09/30/2024 10:22 PM EDT 09/30/2024 10:35 PM EDT Leon Ramirez APRN, DNP LAB REF LAB BLOOD AND F LUID ORD Final Result Performing Organization Address [facility]/ZIP Co de Phone Number [facility] [address] [place] [address] * Alpha Fetoprotein, Serum (09/30/2024 10:22 PM EDT) Alpha Fetoprotein, Serum <2.3 <10.0 ng/mL 09/30/2024 11:58 PM EDT [facility] Blood Venous blood specimen / Unknown Venipuncture / Unknown 09/30/2024 10:22 PM EDT 09/30/2024 10:34 PM EDT Narrative [facility] LAB - 09/30/2024 11:58 PM EDT Performed by Bruce electrochemiluminescent immunoassay which is traceable to the 1st AFP IRP WHO Reference standard 72/255. Results obtained with different test methods or kits cannot be used interchangeably. Leon Ramirez APRN, DNP LAB BLOOD ORDERABLES Fi nal Result Performing Organization Address City/[facility]/ZIP Co de Phone Number [facility] [address] [place] [address] * Ferritin (09/30/2024 10:22 PM EDT) Ferritin, Serum 81 13 - 150 ng/mL 09/30/2024 11:19 PM EDT [facility] Blood Venous blood specimen / Unknown Venipuncture / Unknown 09/30/2024 10:22 PM EDT 09/30/2024 10:34 PM EDT Leon Ramirez APRN, DNP LAB BLOOD ORDERABLES Fi nal Result Performing Organization Address City/[facility]/ZIP Co de Phone Number [facility] [address] [place] [address] * Vitamin D 1,25 dihydroxy (09/30/2024 10:22 PM EDT) VITAMIN D, 1, 25-DIHYDROXY 41.0 19.9 - 79.3 pg/mL 10/01/2024 1:49 PM EDT [facility] Blood Venous blood specimen / Unknown Venipuncture / Unknown 09/30/2024 10:22 PM EDT 09/30/2024 10:35 PM EDT Leon Ceci TOLEDO, OLVIN LAB BLOOD ORDERABLES Fi nal Result Performing Organization Address [facility] [place] [address] * (ABNORMAL) Oxcarbazepine Metabolite, Serum (SO) (09/30/2024 10:22 PM EDT) OXCARB Metabolite 5.6(L) 10.0 - 35.0 ug/mL 10/03/2024 3:14 PM EDT [facility]) Blood Venous blood specimen / Unknown Venipuncture / Unknown 09/30/2024 10:22 PM EDT 09/30/2024 10:43 PM EDT Narrative BELINDA LEAVITT) - 10/03/2024 3:14 PM EDT INTERPRETIVE INFORMATION: Oxcarbazepine Metabolite, Serum Therapeutic Range: 10.0 - 35.0 ug/mL Toxic Range: >=40.0 ug/mL This test measures monohydroxyoxcarbazepine (MHD). Adverse effects may include dizziness, fatigue, nausea, headache, somnolence, ataxia, and tremor. Performed By: [employer] [address] [place] [id number] Hospitality Team Member: Darryl Corado MD, PhD CLIA Number: [id number] Leon W Mingua RIVETING MACHINE OPERATOR TAPE CONTROL, DNP LAB REF LAB BLOOD AND F LUID ORD Final Result [facility] ([facility] [address] [place] [address] * Phosphorus (09/30/2024 10:22 PM EDT) Phosphorus, Plasma 3.5 2.5 - 4.5 mg/dL 09/30/2024 10:52 PM EDT [facility] Blood Venous blood specimen / Unknown Venipuncture / Unknown 09/30/2024 10:22 PM EDT 09/30/2024 10:24 PM EDT Leon Ramirez APRN, DNP LAB BLOOD ORDERABLES Fi nal Result Performing Organization Address City/[facility]/ZIP Co de Phone Number [facility] [address] [place] [address] * Magnesium, Plasma (09/30/2024 10:22 PM EDT) Magnesium, Plasma 2.2 1.9 - 2.4 mg/dL 09/30/2024 10:52 PM EDT [facility] Blood Venous blood specimen / Unknown Venipuncture / Unknown 09/30/2024 10:22 PM EDT 09/30/2024 10:24 PM EDT Leon Ramirez APRN, DNP LAB BLOOD ORDERABLES Fi nal Result Performing Organization Address City/[facility]/ZIP Co de Phone Number [facility] [address] [place] [address] * (ABNORMAL) Comprehensive metabolic panel (09/30/2024 10:22 PM EDT) Glucose, Plasma 77 74 - 99 mg/dL 09/30/2024 10:52 PM EDT [facility] BUN, Plasma 13 7 - 21 mg/dL 09/30/2024 10:52 PM EDT [facility] Creatinine, Plasma 1.28(H) 0.60 - 1.10 mg/dL 09/30/2024 10:52 PM EDT [facility] BUN/Creatinine Ratio 10 09/30/2024 10:52 PM EDT [facility] Sodium, Plasma 143 136 - 145 mmol/L 09/30/2024 10:52 PM EDT [facility] Potassium, Plasma 4.4 3.6 - 4.9 mmol/L 09/30/2024 10:52 PM EDT [facility] Chloride, Plasma 110(H) 97 - 107 mmol/L 09/30/2024 10:52 PM EDT [facility] CO2, Plasma 22 22 - 29 mmol/L 09/30/2024 10:52 PM EDT [facility] Anion Gap 11 6 - 16 mmol/L 09/30/2024 10:52 PM EDT [facility] Total Calcium, Plasma 9.5 8.9 - 10.2 mg/dL 09/30/2024 10:52 PM EDT [facility] Total Protein 6.9 6.3 - 7.9 g/dL 09/30/2024 10:52 PM EDT [facility] Albumin, Plasma 3.7 3.5 - 5.2 g/dL 09/30/2024 10:52 PM EDT [facility] AST, Plasma 49(H) 10 - 35 U/L 09/30/2024 10:52 PM EDT [facility] Comment:Hemolyzed, result ma y be falsely increased. ALT, Plasma 25 10 - 35 U/L 09/30/2024 10:52 PM EDT [facility] Alkaline Phosphatase, Plasma 70 35 - 104 U/L 09/30/2024 10:52 PM EDT [facility] Total Bilirubin, Plasma 0.9 0.2 - 1.1 mg/dL 09/30/2024 10:52 PM EDT [facility] eGFRcr 50.2 mL/min/1.7 3m*2 09/30/2024 10:52 PM EDT [facility] Comment:Reported eGFRcr in m L/min/1.73m2 is based the CKD-EPI 2020 equation that does not use a race coefficient. Blood Venous blood specimen / Unknown Venipuncture / Unknown 09/30/2024 10:22 PM EDT 09/30/2024 10:24 PM EDT us Leon Ramirez RIVETING MACHINE OPERATOR TAPE CONTROL, DNP LAB BLOOD ORDERABLES Fi nal Result [facility] [address] [place] [address] * (ABNORMAL) CBC and Differential (09/30/2024 10:22 PM EDT) WBC Count 2.98(L) 3.70 - 10.30 10*3/uL LAB HEMATOLOGY METHOD 09/30/2024 10:33 PM EDT [facility] RBC Count 3.96 3.90 - 5.20 10*6/uL LAB HEMATOLOGY METHOD 09/30/2024 10:33 PM EDT [facility] HGB 13.3 11.2 - 15.7 g/dL LAB HEMATOLOGY METHOD 09/30/2024 10:33 PM EDT [facility] HCT 38.5 34.0 - 45.0 % LAB HEMATOLOGY METHOD 09/30/2024 10:33 PM EDT [facility] Platelet Count 107(L) 155 - 369 10*3/uL LAB HEMATOLOGY METHOD 09/30/2024 10:33 PM EDT [facility] MCV 97 79 - 98 fL LAB HEMATOLOGY METHOD 09/30/2024 10:33 PM EDT [facility] MCH 33.6(H) 26.0 - 32.0 pg LAB HEMATOLOGY METHOD 09/30/2024 10:33 PM EDT [facility] MCHC 34.5 30.7 - 35.5 g/dL LAB HEMATOLOGY METHOD 09/30/2024 10:33 PM EDT [facility] RDW 13.7 11.5 - 14.5 % LAB HEMATOLOGY METHOD 09/30/2024 10:33 PM EDT [facility] MPV 8.3(L) 8.8 - 12.5 fL LAB HEMATOLOGY METHOD 09/30/2024 10:33 PM EDT [facility] nRBC 0.0 <=0.0 per 100 WBCs LAB HEMATOLOGY METHOD 09/30/2024 10:33 PM EDT [facility] Differential Type Automated LAB HEMATOLOGY METHOD 09/30/2024 10:33 PM EDT [facility] Neutrophils % 62 % LAB HEMATOLOGY METHOD 09/30/2024 10:33 PM EDT [facility] Lymphocytes % 19 % LAB HEMATOLOGY METHOD 09/30/2024 10:33 PM EDT [facility] Monocytes % 11 % LAB HEMATOLOGY METHOD 09/30/2024 10:33 PM EDT [facility] Eosinophils % 6 % LAB HEMATOLOGY METHOD 09/30/2024 10:33 PM EDT [facility] Basophils % 1 % LAB HEMATOLOGY METHOD 09/30/2024 10:33 PM EDT [facility] Immature Granulocytes % 1 % LAB HEMATOLOGY METHOD 09/30/2024 10:33 PM EDT [facility] Neutrophils Absolute 1.88 1.60 - 6.10 10*3/uL LAB HEMATOLOGY METHOD 09/30/2024 10:33 PM EDT [facility] Lymphocytes Absolute 0.57(L) 1.20 - 3.90 10*3/uL LAB HEMATOLOGY METHOD 09/30/2024 10:33 PM EDT [facility] Monocytes Absolute 0.32 0.30 - 0.90 10*3/uL LAB HEMATOLOGY METHOD 09/30/2024 10:33 PM EDT [facility] Eosinophils Absolute 0.17 0.00 - 0.50 10*3/uL LAB HEMATOLOGY METHOD 09/30/2024 10:33 PM EDT [facility] Basophils Absolute 0.02 0.00 - 0.10 10*3/uL LAB HEMATOLOGY METHOD 09/30/2024 10:33 PM EDT [facility] Immature Granulocytes Absolute 0.02 0.00 - 0.06 10*3/uL LAB HEMATOLOGY METHOD 09/30/2024 10:33 PM EDT [facility] Blood Venous blood specimen / Unknown Venipuncture / Unknown 09/30/2024 10:22 PM EDT 09/30/2024 10:24 PM EDT Narrative [facility] - 09/30/2024 10:33 PM EDT Therapeutic decision making should be based on absolute values, rather than percentages. us Leon W Mingua RIVETING MACHINE OPERATOR TAPE CONTROL, DNP LAB BLOOD ORDERABLES Fi nal Result [facility] [address] [place] [address] * Creatinine, urine, random (09/30/2024 10:12 PM EDT) Creatinine, Urine 71 mg/dL 09/30/2024 11:06 PM EDT [facility] Urine Urine specimen obtained by clean catch procedure / Unknown Non-blood Collection / Unknown 09/30/2024 10:12 PM EDT 09/30/2024 10:35 PM EDT Leon Ramirez APRN, DNP LAB URINE ORDERABLES Fi nal Result [facility] [address] [place] [address] * Osmolality, urine (09/30/2024 10:12 PM EDT) Osmolality, Urine 357 50 - 1,200 mOsm/kg 09/30/2024 11:14 PM EDT [facility] Urine Urine specimen obtained by clean catch procedure / Unknown Non-blood Collection / Unknown 09/30/2024 10:12 PM EDT 09/30/2024 10:35 PM EDT Leon Ramirez APRN, DNP LAB URINE ORDERABLES Fi nal Result Performing Organization Address City/[facility]/ZIP Co de Phone Number [facility] [address] [place] [address] * Sodium, urine, random (09/30/2024 10:12 PM EDT) Sodium, Urine 67 mmol/L 09/30/2024 11:06 PM EDT [facility] Urine Urine specimen obtained by clean catch procedure / Unknown Non-blood Collection / Unknown 09/30/2024 10:12 PM EDT 09/30/2024 10:35 PM EDT Leon Ramirez APRN, DNP LAB URINE ORDERABLES Fi nal Result Performing Organization Address City/[facility]/ZIP Co de Phone Number [facility] [address] [place] [address] * Nasopharyngeal Respiratory Panel (09/30/2024 10:09 PM EDT) Pathologist [facility] Nasopharyngeal Respiratory PCR Interpretation Not Detected for all analytes Not Detected for all analytes 10/01/2024 12:42 AM EDT [facility] Swab Nasopharyngeal structure / Unknown Non-blood Collection / Unknown 09/30/2024 10:09 PM EDT 09/30/2024 10:41 PM EDT Narrative [facility] - 10/01/2024 12:42 AM EDT This assay can detect Adenovirus, Coronavirus, Human Metapneumovirus, Human Rhino/Enterovirus, Influenza A, Influenza A H1, Influenza A H1 2009, Influenza A H3, Influenza B, Parainfluenza Virus 1, Parainfluenza Virus 2, Parainfluenza Virus 3, Parainfluenza Virus 4, Respiratory Syncytial Virus A, Respiratory Syncytial Virus B, Chlamydia pneumoniae, and Mycoplasma pneumoniae. Note: This assay does NOT detect SARS/CoV, novel Coronavirus 2019-nCoV, Bordetella pertussis or Bordetella parapertussis. Nasopharyngeal Respiratory PCR Panel is performed using the [employer] ePlex instrument. This test is FDA approved for use with Nasopharyngeal swabs only. This test is used for clinical purposes. It should not be regarded as investigational or for research. The [facility] Clinical Microbiology Laboratory is certified under the Clinical Laboratory Improvement Amendments of 1988 (CLIA-88) as qualified to perform high complexity clinical laboratory testing. Leon Ramirez APRN, OLVIN LAB MICROBIOLOGY - [facility] ORDERABLES Final Result [facility] [address] [place] [address] * SARS CoV-2/COVID-19 by PCR - Rapid (09/30/2024 10:09 PM EDT) Pathologist [facility] SARS CoV-2/COVID-1 9 RNA PCR Result Not Detected Not Detected 09/30/2024 11:37 PM EDT [facility] Swab Nasopharyngeal structure / Unknown Non-blood Collection / Unknown 09/30/2024 10:09 PM EDT 09/30/2024 10:41 PM EDT Narrative [facility] - 09/30/2024 11:37 PM EDT This test is FDA approved for use with nasopharyngeal specimens in [employer] (VTM). This test is used for clinical purposes. It should not be regarded as investigational or for research. This laboratory is certified under the Clinical Laboratory improvement Amendments of 1988 (CLIA-88 as qualified to perform high complexity clinical laboratory testing. This test was performed on the Xpert Xpress SARS CoV-2 Plus assay test, a PCR- based method. Negative results should be considered presumptive and do not preclude current or future infection obtained through community transmission or other exposures. Negative results must be considered in the context of an individual's recent exposures, history, presence of clinical signs and symptoms consistent with COVID-19. Leon Ramirez APRN, DNP LAB MICROBIOLOGY - [facility] ORDERABLES Final Result [facility] [address] [place] [address] * US Abdomen Doppler Limited (09/30/2024 9:44 PM EDT) Anatomical Region Laterality Modality Abdomen Ultrasound Impressions 09/30/2024 9:48 PM EDT 1. Patent hepatic vasculature with appropriate flow directionality. CRITICAL RESULT: No. COMMUNICATION: Per this written report. Drafted by Cherelle James MD on 09/30/2024 9:47 PM Final report signed by Cherelle James MD on 09/30/2024 9:48 PM Narrative 09/30/2024 9:48 PM EDT CLINICAL INDICATION: Hepatic encephalopathy, right upper quadrant pain, rule out portal vein thrombus TECHNIQUE: Limited color Doppler and spectral waveform images of the hepatic vasculature. COMPARISON: Same day CT FINDINGS: Grayscale: Findings consistent with liver parenchymal disease Duplex: Portal vein: There is antegrade flow within the main portal vein with a velocity of 17 cm/sec. Hepatic Artery: The main hepatic artery is patent with normal direction of flow. The resistive index is 0.79 . Peak systolic velocity is 152 cm/sec. There is no evidence of obvious stenosis. Hepatic veins: The hepatic veins are patent at the IVC confluence with normal direction of flow. Procedure Note Cherelle James MD - 06/03/2025 CLINICAL INDICATION: Hepatic encephalopathy, right upper quadrant pain, rule out portal veinthrombus TECHNIQUE: Limited color Doppler and spectral waveform images of the hepaticvasculature. COMPARISON: Same day CT FINDINGS: Grayscale: Findings consistent with liver parenchymal disease Duplex: Portal vein: There is antegrade flow within the main portal vein with avelocity of 17 cm/sec. Hepatic Artery: The main hepatic artery is patent with normal direction offlow. The resistive index is 0.79 . Peak systolic velocity is 152 cm/sec.There is no evidence of obvious stenosis. Hepatic veins: The hepatic veins are patent at the IVC confluence withnormal direction of flow. IMPRESSION: 1. Patent hepatic vasculature with appropriate flow directionality. CRITICAL RESULT: No. COMMUNICATION: Per this written report. Drafted by Cherelle James MD on 09/30/2024 9:47 PM Final report signed by Cherelle James MD on 09/30/2024 9:48 PM Leon Ramirez RIVETING MACHINE OPERATOR TAPE CONTROL, DNP IMG US PROCEDURES Final Result * Urinalysis Microscopic Examination (09/30/2024 6:44 PM EDT) Urine Urine specimen obtained by clean catch procedure / Unknown Non-blood Collection / Unknown 09/30/2024 6:44 PM EDT 09/30/2024 6:56 PM EDT Zack Teran MD LAB URINE ORDERABLES Final Re sult Performing Organization Address City/[facility]/ZIP Co de Phone Number [facility] [address] [place] [address] * Urine Garcia Panel (09/30/2024 6:44 PM EDT) Extra Reflex urine culture not indicated 09/30/2024 9:01 PM EDT [facility] Urine Urine specimen obtained by clean catch procedure / Unknown Non-blood Collection / Unknown 09/30/2024 6:44 PM EDT 09/30/2024 7:09 PM EDT Zack Teran MD LAB URINE ORDERABLES Final Re sult [facility] [address] [place] [address] * (ABNORMAL) Urinalysis with reflex microscopic (Culture NOT Included) (09/30/2024 6:44 PM EDT) Color, Urine Yellow LAB URINALYSIS - AUTOMATED METHOD 09/30/2024 7:19 PM EDT [facility] Clarity, Urine Clear LAB URINALYSIS - AUTOMATED METHOD 09/30/2024 7:19 PM EDT [facility] Spec Marceline, Urine >1.030(H) 1.005 - 1.030 LAB URINALYSIS - AUTOMATED METHOD 09/30/2024 7:19 PM EDT [facility] pH, Urine 7.0 5.0 - 8.0 LAB URINALYSIS - AUTOMATED METHOD 09/30/2024 7:19 PM EDT [facility] Protein, Urine Negative Negative mg/dL LAB URINALYSIS - AUTOMATED METHOD 09/30/2024 7:19 PM EDT [facility] Glucose, Urine Negative Negative mg/dL LAB URINALYSIS - AUTOMATED METHOD 09/30/2024 7:19 PM EDT [facility] Ketones, Urine Negative Negative mg/dL LAB URINALYSIS - AUTOMATED METHOD 09/30/2024 7:19 PM EDT [facility] Blood, Urine Small(A) Negative LAB URINALYSIS - AUTOMATED METHOD 09/30/2024 7:19 PM EDT [facility] Bilirubin, Urine Negative Negative LAB URINALYSIS - AUTOMATED METHOD 09/30/2024 7:19 PM EDT [facility] Urobilinogen, Urine 1.0 0.2 to 1.0 mg/dL LAB URINALYSIS - AUTOMATED METHOD 09/30/2024 7:19 PM EDT [facility] Leukocytes, Urine Negative Negative LAB URINALYSIS - AUTOMATED METHOD 09/30/2024 7:19 PM EDT [facility] Nitrite, Urine Negative Negative LAB URINALYSIS - AUTOMATED METHOD 09/30/2024 7:19 PM EDT [facility] RBC, Urine 4 - 10(A) 0 to 3 /HPF LAB URINALYSIS - AUTOMATED METHOD 09/30/2024 7:19 PM EDT [facility] Comment:This result was prev iously suppressed from the chart. WBC, Urine 0 - 5 0 to 5 /HPF LAB URINALYSIS - AUTOMATED METHOD 09/30/2024 7:19 PM EDT [facility] Comment:This result was prev iously suppressed from the chart. Squamous Epithelial Cells 0 - 2 0 to 5 /HPF LAB URINALYSIS - AUTOMATED METHOD 09/30/2024 7:19 PM EDT [facility] Comment:This result was prev iously suppressed from the chart. Hyaline Casts 0 - 2 0 to 5 /LPF LAB URINALYSIS - AUTOMATED METHOD 09/30/2024 7:19 PM EDT [facility] Comment:This result was prev iously suppressed from the chart. Bacteria, Urine Negative Negative LAB URINALYSIS - AUTOMATED METHOD 09/30/2024 7:19 PM EDT [facility] Comment:This result was prev iously suppressed from the chart. Urine Urine specimen obtained by clean catch procedure / Unknown Non-blood Collection / Unknown 09/30/2024 6:44 PM EDT 09/30/2024 6:56 PM EDT us Zack Teran MD LAB URINE ORDERABLES Final Re sult [facility] [address] [place] [address] * Drug abuse screen (09/30/2024 6:44 PM EDT) Amphetamine Screen Urine Negative Cutoff: 500 ng/mL 09/30/2024 7:17 PM EDT [facility] Benzodiazepines Screen Urine Negative Cutoff: 200 ng/mL 09/30/2024 7:17 PM EDT [facility] Cannabinoid Screen Urine Negative Cutoff: 50 ng/mL 09/30/2024 7:17 PM EDT [facility] Cocaine Screen Urine Negative Cutoff: 300 ng/mL 09/30/2024 7:17 PM EDT [facility] Barbiturate Screen Urine Negative Cutoff: 200 ng/mL 09/30/2024 7:17 PM EDT [facility] Opiate Screen Urine Negative Cutoff: 300 ng/mL 09/30/2024 7:17 PM EDT [facility] Methadone Screen Urine Negative Cutoff: 300 ng/mL 09/30/2024 7:17 PM EDT [facility] Buprenorphine Screen Urine Negative Cutoff: 10 ng/mL 09/30/2024 7:17 PM EDT [facility] Fentanyl Screen Urine Negative Cutoff: 1 ng/mL 09/30/2024 7:17 PM EDT [facility] Oxycodone Screen Urine Negative Cutoff: 100 ng/mL 09/30/2024 7:17 PM EDT [facility] Urine Urine specimen obtained by clean catch procedure / Unknown Non-blood Collection / Unknown 09/30/2024 6:44 PM EDT 09/30/2024 6:56 PM EDT Zack Teran MD LAB URINE ORDERABLES Final Re sult Performing Organization Address [facility]/ZIP Co de Phone Number [facility] [address] [place] [address] * Troponin T, High Sensitivity, 2 Hour, Plasma (09/30/2024 5:25 PM EDT) Troponin T, High Sensitivity, 2 Hour 11 <14 ng/L 09/30/2024 6:01 PM EDT [facility] Blood Venous blood specimen / Unknown Venipuncture / Unknown 09/30/2024 5:25 PM EDT 09/30/2024 5:34 PM EDT Zack Teran MD LAB BLOOD ORDERABLES Final Re sult Performing Organization Address [facility]/ZIP Co de Phone Number [facility] [address] [place] [address] * (ABNORMAL) Ammonia (09/30/2024 5:25 PM EDT) Ammonia 149(H) 11 - 51 umol/L 09/30/2024 6:08 PM EDT [facility] Comment:Improper specimen joe ndling may falsely increase results. Blood Venous blood specimen / Unknown Venipuncture / Unknown 09/30/2024 5:25 PM EDT 09/30/2024 5:35 PM EDT us Zack Teran MD LAB BLOOD ORDERABLES Final Re sult [facility] [address] [place] [address] * POCT glucose meter (09/30/2024 5:16 PM EDT) POCT Glucose 83 74 - 99 mg/dL 09/30/2024 5:17 PM EDT [facility] Comment:Accuracy of a glucos e result obtained from a capillary whole blood specimen relies upon adequate, non-compromised capillary blood flow. If the capillary glucose result is not consistent with the patient's clinical signs and symptoms, glucose testing should be repeated with either an arterial or venous sample on the glucometer or sent to the main labortory for testing. Comment 09/30/2024 5:17 PM EDT Submittable LAB Coiled Tubing Operator ID Clarice Maldonado 09/30/2024 5:17 PM EDT Submittable LAB Device ID [id number] 09/30/2024 5:17 PM EDT [facility] Specimen Type POC Capillary 09/30/2024 5:17 PM EDT [facility] Blood Capillary blood specimen / Unknown 09/30/2024 5:16 PM EDT 09/30/2024 5:17 PM EDT us Edda Young DO LAB POINT OF CARE TE ST DOCKED DEVICE UNSOLICITED RESULTS Final Result Performing Organization Address City/[facility]/ZIP Co de Phone Number [facility] [address] [place] [address] * CT Head wo IV Contrast (09/30/2024 4:06 PM EDT) Anatomical Region Laterality Modality Head Computed Tomogra phy Impressions 09/30/2024 4:16 PM EDT No acute intracranial hemorrhage or acute large territorial infarction. Age-appropriate cerebral atrophy with moderate scattered periventricular and deep matter change, nonspecific, potentially sequela of chronic microvascular ischemic disease. Redemonstration of 9 mm extra-axial lesion right side of the tuberculum sella and right paraclinoid region, previously characterized as probable meningioma, similar over the interval. Complete opacification right maxillary sinus with additional fluid opacification bilateral ethmoid air cells right greater than left. Additional small volume fluid versus retention cyst left sphenoidal sinus. Correlate for acute sinusitis. CRITICAL RESULT: No. COMMUNICATION: Per this written report. Drafted by Jeffery Jon MD on 09/30/2024 4:08 PM Final report signed by Jeffery Jon MD on 09/30/2024 4:16 PM Narrative 09/30/2024 4:16 PM EDT CLINICAL INDICATION: AMS, weakness TECHNIQUE: Axial CT images of the head were obtained without contrast administration. Total DLP (Dose-Length Product): 3102.20 mGy.cm. Please note: The reported value represents the total of one or more individual components during the CT acquisition on this date and at this time, and as such, the same value may appear in more than one CT report depending on the interpreting/reporting physicians. COMPARISON: MR brain [address] head 11 December 2021. FINDINGS: Diagnostic Quality: Adequate. No acute intracranial hemorrhage or acute large territorial infarction. Age-appropriate cerebral atrophy with moderate scattered periventricular and deep matter change, nonspecific, potentially sequela of chronic microvascular ischemic disease. Redemonstration nonspecific mineralization/calcification bilateral basal ganglia. Redemonstration of 9 mm extra-axial lesion right side of the tuberculum sella and right paraclinoid region, previously characterized as probable meningioma, similar over the interval. Redemonstration abutment right optic nerve. Soft Tissues: No significant soft tissue swelling is present. Skull: No acute displaced calvarial fracture. Sinuses and Mastoids: Complete opacification right maxillary sinus with additional fluid opacification bilateral ethmoid air cells right greater than left. Additional small volume fluid versus retention cyst left sphenoidal sinus. Correlate for acute sinusitis. The mastoid air cells are clear. Procedure Note Jeffery Jon MD - 09/30/2024 CLINICAL INDICATION: AMS, weakness TECHNIQUE: Axial CT images of the head were obtained without contrastadministration. Total DLP (Dose-Length Product): 3102.20 mGy.cm. Please note: The reportedvalue represents the total of one or more individual components during theCT acquisition on this date and at this time, and as such, the same valuemay appear in more than one CT report depending on theinterpreting/reporting physicians. COMPARISON: MR brain [address] head 11 December 2021. FINDINGS: Diagnostic Quality: Adequate. No acute intracranial hemorrhage or acute large territorial infarction.Age-appropriate cerebral atrophy with moderate scattered periventricularand deep matter change, nonspecific, potentially sequela of chronicmicrovascular ischemic disease. Redemonstration nonspecificmineralization/calcification bilateral basal ganglia. Redemonstration of 9mm extra-axial lesion right side of the tuberculum sella and rightparaclinoid region, previously characterized as probable meningioma,similar over the interval. Redemonstration abutment right optic nerve. Soft Tissues: No significant soft tissue swelling is present. Skull: No acute displaced calvarial fracture. Sinuses and Mastoids: Complete opacification right maxillary sinus withadditional fluid opacification bilateral ethmoid air cells right greaterthan left. Additional small volume fluid versus retention cyst leftsphenoidal sinus. Correlate for acute sinusitis. The mastoid air cells areclear. IMPRESSION: No acute intracranial hemorrhage or acute large territorial infarction. Age-appropriate cerebral atrophy with moderate scattered periventricularand deep matter change, nonspecific, potentially sequela of chronicmicrovascular ischemic disease. Redemonstration of 9 mm extra-axial lesion right side of the tuberculumsella and right paraclinoid region, previously characterized as probablemeningioma, similar over the interval. Complete opacification right maxillary sinus with additional fluidopacification bilateral ethmoid air cells right greater than left.Additional small volume fluid versus retention cyst left sphenoidal sinus.Correlate for acute sinusitis. CRITICAL RESULT: No. COMMUNICATION: Per this written report. Drafted by Jeffery Jon MD on 09/30/2024 4:08 PM Final report signed by Jeffery Jon MD on 09/30/2024 4:16 PM us Zack Teran MD IMG CT PROCEDURES Final Resul t * CT Abdomen Pelvis w IV Contrast (09/30/2024 4:06 PM EDT) Anatomical Region Laterality Modality Abdomen, Pelvis Computed Tomogra phy Impressions 09/30/2024 4:31 PM EDT 1. 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 No acute abdominal or pelvic findings. CRITICAL RESULT: No. COMMUNICATION: Per this written report. Drafted by Arun Red MD on 09/30/2024 4:25 PM Final report signed by Arun Red MD on 09/30/2024 4:31 PM Narrative 09/30/2024 4:31 PM EDT CLINICAL INDICATION: RLQ abdominal tenderness TECHNIQUE: Imaging of the abdomen and pelvis was performed, from lung bases through pubic symphysis, using spiral technique, following administration of IV contrast, Omnipaque 300, 100 mL. Delayed (excretory phase) images were performed through the kidneys. Reformatted images in the coronal and sagittal planes were generated from the axial data set to facilitate diagnostic accuracy. Total DLP (Dose-Length Product): 3102.20 mGy.cm. Please note: The reported value represents the total of one or more individual components during the CT acquisition on this date and at this time, and as such, the same value may appear in more than one CT report depending on the interpreting/reporting physicians. COMPARISON: 12/07/2021, 07/14/2021 FINDINGS: Lung Bases: Lung bases are clear. Abdomen and pelvis: Cirrhotic morphology of the liver. Prior cholecystectomy. No biliary dilatation. Splenomegaly at 19 cm. Portosystemic shunts present. Homogeneous enhancement of the pancreas. Unremarkable adrenal morphology. No renal or ureteral calculi. No hydronephrosis or hydroureter. Small bilateral subcentimeter hypodensities of the kidneys may represent small cysts. No intestinal obstruction or free air. Nonvisualization of the appendix. Mild amount retained colonic feces throughout the colon. No acute vascular findings. Extensive portosystemic shunts. No adenopathy. No free fluid. No pelvic mass or fluid collection. No acute osseous findings. Postsurgical changes abdominal wall as before. Procedure Note Arun Red MD - 09/30/2024 CLINICAL INDICATION: RLQ abdominal tenderness TECHNIQUE: Imaging of the abdomen and pelvis was performed, from lung bases throughpubic symphysis, using spiral technique, following administration of IVcontrast, Omnipaque 300, 100 mL. Delayed (excretory phase) images wereperformed through the kidneys. Reformatted images in the coronal andsagittal planes were generated from the axial data set to facilitatediagnostic accuracy. Total DLP (Dose-Length Product): 3102.20 mGy.cm. Please note: The reportedvalue represents the total of one or more individual components during theCT acquisition on this date and at this time, and as such, the same valuemay appear in more than one CT report depending on theinterpreting/reporting physicians. COMPARISON: 12/07/2021, 07/14/2021 FINDINGS: Lung Bases: Lung bases are clear. Abdomen and pelvis: Cirrhotic morphology of the liver. Prior cholecystectomy. No biliarydilatation. Splenomegaly at 19 cm. Portosystemic shunts present.Homogeneous enhancement of the pancreas. Unremarkable adrenalmorphology. No renal or ureteral calculi. No hydronephrosis or hydroureter. Smallbilateral subcentimeter hypodensities of the kidneys may represent smallcysts. No intestinal obstruction or free air. Nonvisualization of the appendix.Mild amount retained colonic feces throughout the colon. No acute vascular findings. Extensive portosystemic shunts. No adenopathy.No free fluid. No pelvic mass or fluid collection. No acute osseous findings. Postsurgical changes abdominal wall asbefore. IMPRESSION: 1. Cirrhosis with portal hypertension with splenomegaly and extensiveportosystemic shunts 2. No acute abdominal or pelvic findings. CRITICAL RESULT: No. COMMUNICATION: Per this written report. Drafted by Arun Red MD on 09/30/2024 4:25 PM Final report signed by Arun Red MD on 09/30/2024 4:31 PM us Zack Teran MD IMG CT PROCEDURES Final Resul t * XR Chest 1 View (09/30/2024 3:28 PM EDT) Anatomical Region Laterality Modality Chest Digital Radiogra phy Impressions 09/30/2024 3:35 PM EDT No acute finding CRITICAL RESULT: No. COMMUNICATION: Per this written report. Drafted by Arun Red MD on 09/30/2024 3:35 PM Final report signed by Arun Red MD on 09/30/2024 3:35 PM Narrative 09/30/2024 3:35 PM EDT CLINICAL INDICATION: AMS TECHNIQUE: XR CHEST 1 VIEW COMPARISON: 12/07/2021 FINDINGS: Lungs are clear. Heart and mediastinal contours are within normal limits. No pneumothorax. No pleural effusion. Bony structures are unremarkable. Procedure Note Arun Red MD - 09/30/2024 CLINICAL INDICATION: AMS TECHNIQUE: XR CHEST 1 VIEW COMPARISON: 12/07/2021 FINDINGS: Lungs are clear. Heart and mediastinal contours are within normal limits.No pneumothorax. No pleural effusion. Bony structures are unremarkable. IMPRESSION: No acute finding CRITICAL RESULT: No. COMMUNICATION: Per this written report. Drafted by Arun Red MD on 09/30/2024 3:35 PM Final report signed by Arun Red MD on 09/30/2024 3:35 PM Zack Teran MD IMG XR PROCEDURES Final Resul t * (ABNORMAL) POCT glucose meter (09/30/2024 3:16 PM EDT) [facility] POCT Glucose 203(H) 74 - 99 mg/dL 09/30/2024 3:17 PM EDT [facility] Comment:Accuracy of a glucos e result obtained from a capillary whole blood specimen relies upon adequate, non-compromised capillary blood flow. If the capillary glucose result is not consistent with the patient's clinical signs and symptoms, glucose testing should be repeated with either an arterial or venous sample on the glucometer or sent to the main labortory for testing. Comment 09/30/2024 3:17 PM EDT [facility] Coiled Tubing Operator ID Poncho Cadena [id number] 3:17 PM EDT [facility] Device ID [id number] 09/30/2024 3:17 PM EDT [facility] Specimen Type POC Capillary 09/30/2024 3:17 PM EDT [facility] Blood Capillary blood specimen / Unknown 09/30/2024 3:16 PM EDT 09/30/2024 3:17 PM EDT Generic Provider Poct LAB POINT OF CARE TEST DOCKED DEVICE UNSOLICITED RESULTS Final Result [facility] [address] [place] [address] * Iron & Total Iron Binding Capacity, Plasma (Includes Transferrin) (09/30/2024 2:51 PM EDT) [facility] Iron, Plasma 123 30 - 160 ug/dL 09/30/2024 11:52 PM EDT [facility] Transferrin, Plasma 239 200 - 360 mg/dL 09/30/2024 11:52 PM EDT [facility] Total Iron Binding Capacity, Plasma 299 240 - 450 ug/mL 09/30/2024 11:52 PM EDT [facility] Transferrin Saturation 41 14 - 50 % 09/30/2024 11:52 PM EDT [facility] Blood Venous blood specimen / Unknown Venipuncture / Unknown 09/30/2024 2:51 PM EDT 09/30/2024 2:56 PM EDT Leon Ramirez APRN, DNP LAB BLOOD ORDERABLES Fi nal Result Performing Organization Address [facility] Co de Phone Number [facility] [address] [place] [address] * Phosphorus (09/30/2024 2:51 PM EDT) Phosphorus, Plasma 2.9 2.5 - 4.5 mg/dL 09/30/2024 9:16 PM EDT [facility] Blood Venous blood specimen / Unknown Venipuncture / Unknown 09/30/2024 2:51 PM EDT 09/30/2024 2:56 PM EDT Leon Ramirez APRN, DNP LAB BLOOD ORDERABLES Fi nal Result Performing Organization Address [facility]/ZIP Co de Phone Number [facility] [address] [place] [address] * Osmolality (09/30/2024 2:51 PM EDT) Osmolality, Serum 291 275 - 295 mOsm/Kg 09/30/2024 10:20 PM EDT [facility] Blood Venous blood specimen / Unknown Venipuncture / Unknown 09/30/2024 2:51 PM EDT 09/30/2024 2:56 PM EDT Leon Ramirez APRN, DNP LAB BLOOD ORDERABLES Fi nal Result Performing Organization Address [facility] Co de Phone Number [facility] [address] [place] [address] * ED HIV 1/2 Antibody/Antigen Screen w/Reflex to HIV 1/2 Differentiation (09/30/2024 2:51 PM EDT) HIV 1 & 2 Antibody/Antigen Screen Non Reactive Non Reactive 09/30/2024 3:46 PM EDT [facility] Comment:Screening for HIV 1 & 2 antibodies, and P24 antigen is NONREACTIVE. No confirmatory testing is required. Blood Venous blood specimen / Unknown Venipuncture / Unknown 09/30/2024 2:51 PM EDT 09/30/2024 3:04 PM EDT us Zack Teran MD LAB BLOOD ORDERABLES Final Re sult Performing Organization Address [facility] Co de Phone Number [facility] [address] [place] [address] * (ABNORMAL) PT-INR (09/30/2024 2:51 PM EDT) Prothrombin Time 14.8(H) 12.0 - 14.3 sec 09/30/2024 3:11 PM EDT [facility] INR 1.2(H) 0.9 - 1.1 09/30/2024 3:11 PM EDT [facility] Blood Venous blood specimen / Unknown Venipuncture / Unknown 09/30/2024 2:51 PM EDT 09/30/2024 2:56 PM EDT Narrative [facility] - 09/30/2024 3:11 PM EDT OPTIMAL INR RANGES FOR PATIENT ON ORAL ANTICOAGULANT THERAPY Prevention of venous thromboembolism INR 2.0 to 3.0 In patients with heart disease: Atrial fibrillation INR 2.0 to 3.0 Valvular heart disease INR 2.0 to 3.0 Tissue heart valves INR 2.0 to 3.0 Mechanical prosthetic valves INR 2.5 to 3.5 Prevention of recurrent ND INR 2.5 to 3.5 us Zack Teran MD LAB BLOOD ORDERABLES Final Re sult Performing Organization Address [facility]/ZIP Co de Phone Number [facility] [address] [place] [address] * Free T4, Plasma (09/30/2024 2:51 PM EDT) Free T4, Plasma 0.8 0.8 - 1.7 ng/dL 09/30/2024 4:06 PM EDT [facility] Blood Venous blood specimen / Unknown Venipuncture / Unknown 09/30/2024 2:51 PM EDT 09/30/2024 2:56 PM EDT Narrative [facility] - 09/30/2024 4:06 PM EDT Free T4 Trimester Specific Ranges 1st Trimester 0.9 - 1.50 ng/dL 2nd Trimester 0.7 - 1.40 ng/dL 3rd Trimester 0.7 - 1.24 ng/dL Zack Tearn MD LAB BLOOD ORDERABLES Final Re sult Performing Organization Address [facility] [place] [address] * (ABNORMAL) Thyroid Stimulating Hormone, Plasma (09/30/2024 2:51 PM EDT) Pathologist [facility] Thyroid Stimulating Hormone, Plasma 4.87(H) 0.40 - 4.20 uIU/mL 09/30/2024 4:09 PM EDT [facility] Blood Venous blood specimen / Unknown Venipuncture / Unknown 09/30/2024 2:51 PM EDT 09/30/2024 2:56 PM EDT Narrative [facility] - 09/30/2024 4:09 PM EDT Trimester Specific Ranges TSH ( IU/mL) 1st Trimester 0.1 - 3.0 2nd Trimester 0.19 - 4.06 3rd Trimester 0.3 - 3.7 us Zack Teran MD LAB BLOOD ORDERABLES Final Re sult Performing Organization Address [facility]/ZIP Co de Phone Number [facility] [address] [place] [address] * Troponin now and 120 min (09/30/2024 2:51 PM EDT) Troponin T, High Sensitivity, 0 Hour 12 <14 ng/L 09/30/2024 4:09 PM EDT [facility] Blood Venous blood specimen / Unknown Venipuncture / Unknown 09/30/2024 2:51 PM EDT 09/30/2024 2:56 PM EDT Zack Teran MD LAB BLOOD ORDERABLES Final Re sult [facility] [address] [place] [address] * Lipase (09/30/2024 2:51 PM EDT) Pathologist [facility] Lipase, Plasma 41 19 - 63 U/L 09/30/2024 4:09 PM EDT [facility] Blood Venous blood specimen / Unknown Venipuncture / Unknown 09/30/2024 2:51 PM EDT 09/30/2024 2:56 PM EDT Zack Teran MD LAB BLOOD ORDERABLES Final Re sult Performing Organization Address [facility]/[place] [address] * Magnesium (09/30/2024 2:51 PM EDT) Pathologist [facility] Magnesium, Plasma 2.1 1.9 - 2.4 mg/dL 09/30/2024 4:09 PM EDT [facility] Blood Venous blood specimen / Unknown Venipuncture / Unknown 09/30/2024 2:51 PM EDT 09/30/2024 2:56 PM EDT Zack Teran MD LAB BLOOD ORDERABLES Final Re sult Performing Organization Address [facility] [place] [address] * (ABNORMAL) CMP (09/30/2024 2:51 PM EDT) Pathologist [facility] Glucose, Plasma 63(L) 74 - 99 mg/dL 09/30/2024 4:09 PM EDT [facility] BUN, Plasma 12 7 - 21 mg/dL 09/30/2024 4:09 PM EDT [facility] Creatinine, Plasma 1.36(H) 0.60 - 1.10 mg/dL 09/30/2024 4:09 PM EDT [facility] BUN/Creatinine Ratio 9 09/30/2024 4:09 PM EDT [facility] Sodium, Plasma 141 136 - 145 mmol/L 09/30/2024 4:09 PM EDT [facility] Potassium, Plasma 4.5 3.6 - 4.9 mmol/L 09/30/2024 4:09 PM EDT [facility] Chloride, Plasma 109(H) 97 - 107 mmol/L 09/30/2024 4:09 PM EDT [facility] CO2, Plasma 21(L) 22 - 29 mmol/L 09/30/2024 4:09 PM EDT [facility] Anion Gap 11 6 - 16 mmol/L 09/30/2024 4:09 PM EDT [facility] Total Calcium, Plasma 8.9 8.9 - 10.2 mg/dL 09/30/2024 4:09 PM EDT [facility] Total Protein 6.7 6.3 - 7.9 g/dL 09/30/2024 4:09 PM EDT [facility] Albumin, Plasma 3.7 3.5 - 5.2 g/dL 09/30/2024 4:09 PM EDT [facility] AST, Plasma 45(H) 10 - 35 U/L 09/30/2024 4:09 PM EDT [facility] ALT, Plasma 24 10 - 35 U/L 09/30/2024 4:09 PM EDT [facility] Alkaline Phosphatase, Plasma 69 35 - 104 U/L 09/30/2024 4:09 PM EDT [facility] Total Bilirubin, Plasma 1.0 0.2 - 1.1 mg/dL 09/30/2024 4:09 PM EDT [facility] eGFRcr 46.7 mL/min/1.7 3m*2 09/30/2024 4:09 PM EDT [facility] Comment:Reported eGFRcr in m L/min/1.73m2 is based the CKD-EPI 2020 equation that does not use a race coefficient. Blood Venous blood specimen / Unknown Venipuncture / Unknown 09/30/2024 2:51 PM EDT 09/30/2024 2:56 PM EDT Zack Teran MD LAB BLOOD ORDERABLES Final Re sult Performing Organization Address [facility] Co de Phone Number [facility] [address] [place] [address] * Hepatitis C Antibody - ED (09/30/2024 2:50 PM EDT) Pathologist [facility] Hepatitis C Antibody Negative Negative 09/30/2024 3:44 PM EDT [facility] Blood Venous blood specimen / Unknown Venipuncture / Unknown 09/30/2024 2:50 PM EDT 09/30/2024 3:04 PM EDT Zack Teran MD LAB BLOOD ORDERABLES Final Re sult Performing Organization Address [facility] Co de Phone Number [facility] [address] [place] [address] * (ABNORMAL) Blood gas panel, venous (09/30/2024 2:50 PM EDT) Pathologist [facility] pH, Venous 7.38 7.32 - 7.43 LAB HEMATOLOGY METHOD 09/30/2024 3:05 PM EDT [facility] pCO2, Venous 43 37 - 52 mmHg LAB HEMATOLOGY METHOD 09/30/2024 3:05 PM EDT [facility] pO2, Venous 37 25 - 40 mmHg LAB HEMATOLOGY METHOD 09/30/2024 3:05 PM EDT [facility] SO2, Measured, Venous 70 65 - 80 % LAB HEMATOLOGY METHOD 09/30/2024 3:05 PM EDT [facility] Base Excess, Venous -0.2 -2.0 - 3.0 mmol/L LAB HEMATOLOGY METHOD 09/30/2024 3:05 PM EDT [facility] Bicarbonate, Calculated, Venous 25 22 - 26 mmol/L LAB HEMATOLOGY METHOD 09/30/2024 3:05 PM EDT [facility] Hematocrit, Whole Blood 39.5 34.0 - 45.0 % LAB HEMATOLOGY METHOD 09/30/2024 3:05 PM EDT [facility] Sodium, Whole Blood 142 136 - 145 mmol/L LAB HEMATOLOGY METHOD 09/30/2024 3:05 PM EDT [facility] Potassium, Whole Blood 4.3 3.6 - 4.9 mmol/L LAB HEMATOLOGY METHOD 09/30/2024 3:05 PM EDT [facility] Chloride, Whole Blood 111(H) 97 - 107 mmol/L LAB HEMATOLOGY METHOD 09/30/2024 3:05 PM EDT [facility] Glucose, Whole Blood 62(L) 74 - 99 mg/dL LAB HEMATOLOGY METHOD 09/30/2024 3:05 PM EDT [facility] Lactate, Venous, Whole Blood 1.1 0.5 - 2.2 mmol/L LAB HEMATOLOGY METHOD 09/30/2024 3:05 PM EDT [facility] Ionized Calcium, Whole Blood 4.6 4.6 - 5.1 mg/dL LAB HEMATOLOGY METHOD 09/30/2024 3:05 PM EDT [facility] Blood Venous blood specimen / Unknown Venipuncture / Unknown 09/30/2024 2:50 PM EDT 09/30/2024 3:04 PM EDT us Zack Teran MD LAB BLOOD ORDERABLES Final Re sult [facility] [address] [place] [address] * Type and screen (09/30/2024 2:50 PM EDT) ABO/Rh O Positive 09/30/2024 2:32 PM EDT [facility] Antibody Screen Negative 09/30/2024 2:32 PM EDT [facility] Specimen Expiration 10/03/2024 23:59 09/30/2024 2:32 PM EDT [facility] Blood Venous blood specimen / Unknown Venipuncture / Unknown 09/30/2024 2:50 PM EDT 09/30/2024 2:56 PM EDT Zack Teran MD LAB BLOOD BANK TEST ORDERABLE S Final Result Performing Organization Address City/[facility]/ZIP Co de Phone Number BLOOD BANK [address] [place] [address], * Lactic acid, venous (09/30/2024 2:50 PM EDT) Pathologist [facility] Lactate, Venous, Whole Blood 1.1 0.5 - 2.2 mmol/L LAB HEMATOLOGY METHOD 09/30/2024 3:05 PM EDT [facility] Blood Venous blood specimen / Unknown Venipuncture / Unknown 09/30/2024 2:50 PM EDT 09/30/2024 3:04 PM EDT Zack Teran MD LAB BLOOD ORDERABLES Final Re sult Performing Organization Address City/[facility]/ZIP Co de Phone Number [facility] [address] [place] [address] * (ABNORMAL) CBC (09/30/2024 2:50 PM EDT) Pathologist [facility] WBC Count 3.48(L) 3.70 - 10.30 10*3/uL LAB HEMATOLOGY METHOD 09/30/2024 2:58 PM EDT [facility] RBC Count 3.96 3.90 - 5.20 10*6/uL LAB HEMATOLOGY METHOD 09/30/2024 2:58 PM EDT [facility] HGB 13.5 11.2 - 15.7 g/dL LAB HEMATOLOGY METHOD 09/30/2024 2:58 PM EDT [facility] HCT 38.8 34.0 - 45.0 % LAB HEMATOLOGY METHOD 09/30/2024 2:58 PM EDT [facility] Platelet Count 100(L) 155 - 369 10*3/uL LAB HEMATOLOGY METHOD 09/30/2024 2:58 PM EDT [facility] MCV 98 79 - 98 fL LAB HEMATOLOGY METHOD 09/30/2024 2:58 PM EDT [facility] MCH 34.1(H) 26.0 - 32.0 pg LAB HEMATOLOGY METHOD 09/30/2024 2:58 PM EDT [facility] MCHC 34.8 30.7 - 35.5 g/dL LAB HEMATOLOGY METHOD 09/30/2024 2:58 PM EDT [facility] RDW 13.9 11.5 - 14.5 % LAB HEMATOLOGY METHOD 09/30/2024 2:58 PM EDT [facility] MPV 8.4(L) 8.8 - 12.5 fL LAB HEMATOLOGY METHOD 09/30/2024 2:58 PM EDT [facility] nRBC 0.0 <=0.0 per 100 WBCs LAB HEMATOLOGY METHOD 09/30/2024 2:58 PM EDT [facility] Blood Venous blood specimen / Unknown Venipuncture / Unknown 09/30/2024 2:50 PM EDT 09/30/2024 2:56 PM EDT Zack Teran MD LAB BLOOD ORDERABLES Final Re sult [facility] [address] [place] [address] * EKG now - STAT (adult) (09/30/2024 2:41 PM EDT) EKG DIAGNOSIS CLASS Normal MUSE ECG Ventricular Rate 72 BPM MUSE ECG Atrial Rate 72 BPM MUSE ECG [place] Interval 178 ms MUSE ECG QRSD Interval 96 ms MUSE ECG QT Interval 408 ms MUSE ECG QTC Interval 446 ms MUSE ECG P [place] 10 degrees MUSE ECG R [place] 25 degrees MUSE ECG T Wave [place] 39 degrees MUSE ECG Diagnosis Normal sinus rhythm MUSE ECG Diagnosis Normal ECG MUSE ECG Diagnosis MUSE ECG Diagnosis Confirmed by Tan Agarwal ([id number]) on 09/30/2024 3:39:26 PM MUSE ECG 09/30/2024 2:41 PM EDT 09/30/2024 3:39 PM EDT us Zack Teran MD ECG ORDERABLES Final Result [facility] ECG * (ABNORMAL) POCT glucose meter (09/30/2024 2:13 PM EDT) POCT Glucose 65(L) 74 - 99 mg/dL 09/30/2024 2:21 PM EDT [facility] Comment:Accuracy of a glucos e result obtained from a capillary whole blood specimen relies upon adequate, non-compromised capillary blood flow. If the capillary glucose result is not consistent with the patient's clinical signs and symptoms, glucose testing should be repeated with either an arterial or venous sample on the glucometer or sent to the main labortory for testing. Comment 09/30/2024 2:21 PM EDT [facility] Coiled Tubing Operator ID Gloria Tracy 09/30/2024 2:21 PM EDT [facility] Device ID [id number] 09/30/2024 2:21 PM EDT [facility] Specimen Type POC Capillary 09/30/2024 2:21 PM EDT [facility] Blood Capillary blood specimen / Unknown 09/30/2024 2:13 PM EDT 09/30/2024 2:21 PM EDT us Generic Provider Poct LAB POINT OF CARE TEST DOCKED DEVICE UNSOLICITED RESULTS Final Result Performing Organization Address City/State/[facility] Co de Phone Number [facility]ALTHCARE [facility] [address] [place] [address] documented in this encounter Visit Diagnoses Diagnosis HE (hepatic encephalopathy) (CMS/HCC)- Primary Hepatic encephalopathy Acute encephalopathy HE (hepatic encephalopathy) (CMS/HCC) Hepatic encephalopathy Thrombocytopenia (CMS/HCC) Unspecified thrombocytopenia Dysarthria Chest pain, unspecified type Hepatic encephalopathy (CMS/HCC) Hepatic encephalopathy Altered mental status, unspecified altered mental status type Acute encephalopathy KYLIE (acute kidney injury) (CMS/HCC) Hypoglycemia Hypoglycemia, unspecified documented in this encounter Admitting Diagnoses Diagnosis Acute encephalopathy documented in this encounter Administered Medications Inactive Administered Medications - up to 3 most recent administrations Medication Order MAR Action Action Date Dose Rate Site acetaminophen (Tylenol) tablet 650 mg 650 mg, Oral, Every 8 hours PRN, Starting on Sun09/30/24 at 2018, Until Sun10/21/24 at 1613, Routine, mild pain Given 10/20/2024 9:00 PM EDT 650 mg Given 10/19/2024 8:17 PM EDT 650 mg Given 10/18/2024 9:42 PM EDT 650 mg albuterol 108 (90 Base) MCG/ACT inhaler 1 puff 1 puff, Inhalation, 4 times daily PRN, Starting on Sun10/02/24 at 1551, Until Sun10/21/24 at 1613, Routine, wheezing Given 10/19/2024 8:43 AM EDT 1 puff Given 10/16/2024 5:20 PM EDT 1 puff Given 10/15/2024 11:50 AM EDT 1 puff amitriptyline (Elavil) tablet 50 mg 50 mg, Oral, Nightly, First dose on Sun10/06/24 at 2100, Until Discontinued, Routine Given 10/20/2024 9:01 PM EDT 50 mg Given 10/19/2024 8:18 PM EDT 50 mg Given 10/18/2024 9:41 PM EDT 50 mg benzocaine (Orajel) 10 % mucosal gel 1 Application Mouth/Throat, 4 times daily PRN, Starting on Sun10/07/24 at 2142, Until Sun10/21/24 at 1613, Routine, mild pain Given 10/08/2024 8:49 AM EDT 1 Application Given 10/08/2024 1:55 AM EDT 1 Application carvedilol (Coreg) tablet 3.125 mg 3.125 mg, Oral, 2 times daily with meals, First dose on Sun10/01/24 at 0830, Until Discontinued, Routine Given 10/21/2024 8:37 AM EDT 3.125 mg Given 10/20/2024 4:56 PM EDT 3.125 mg Given 10/20/2024 9:38 AM EDT 3.125 mg dextrose 50 % solution - Pyxis Override Pull 1 dose, Starting on Sun09/30/24 at 1454, Until Sun09/30/24 at 1458 dextrose 50 % solution 12.5-25 g 12.5-25 g, Intravenous, Every 15 min PRN, Starting on Sun09/30/24 at 1453, Until Sun10/21/24 at 1613, Routine, low blood sugar Given 10/02/2024 12:07 AM EDT 1 2.5 g Given 10/01/2024 8:02 AM EDT 12.5 g Given 09/30/2024 2:58 PM EDT 25 g donepezil (Aricept) tablet 5 mg 5 mg, Oral, Nightly, First dose on Sun10/02/24 at 2100, Until Discontinued, Routine Given 10/20/2024 9:00 PM EDT 5 mg Given 10/19/2024 8:18 PM EDT 5 mg Given 10/18/2024 9:41 PM EDT 5 mg DULoxetine (Cymbalta) DR capsule 30 mg 30 mg, Oral, Daily, First dose on Sun10/02/24 at 1700, Until Discontinued, Routine Given 10/21/2024 8:37 AM EDT 30 mg Given 10/20/2024 9:38 AM EDT 30 mg Given 10/19/2024 8:43 AM EDT 30 mg enoxaparin (Lovenox) syringe 40 mg 40 mg, Subcutaneous, Daily, First dose on Sun09/30/24 at 2020, Until Discontinued, Routine Given 10/01/2024 8:11 AM EDT 40 mg Left Lower Abdomen enoxaparin (Lovenox) syringe 40 mg 40 mg, Subcutaneous, 2 times daily, First dose (after last modification) on Sun10/02/24 at 0945, Until Discontinued, Routine Given 10/21/2024 8:38 AM EDT 40 mg Left Upper Abdomen Given 10/20/2024 9:03 PM EDT 40 mg Ri ght Lower Abdomen Given 10/20/2024 9:38 AM EDT 40 mg Le ft Lower Abdomen ferrous sulfate EC tablet 324 mg 324 mg, Oral, Every other day, First dose on Sun10/12/24 at 0900, Until Discontinued, Routine Given 10/20/2024 9:38 AM EDT 324 mg Given 10/18/2024 9:16 AM EDT 324 mg Given 10/16/2024 9:00 AM EDT 324 mg fluticasone (Flonase) nasal spray 2 spray 2 spray, Each Nostril, Daily, First dose on Sun10/01/24 at 0900, Until Discontinued, Routine Given 10/21/2024 8:39 AM EDT 2 sprays Given 10/20/2024 9:38 AM EDT 2 sprays Given 10/19/2024 8:43 AM EDT 2 sprays gi cocktail oral solution 30 mL 30 mL, Oral, Once, 1 dose, On 10/18/24 at 2115, Routine Given 10/18/2024 8:45 PM EDT 30 mL glucagon (human recombinant) injection 1 mg 1 mg, Intramuscular, Every 15 min PRN, Starting on Sun09/30/24 at 1453, Until Sun10/21/24 at 1613, Routine, low blood sugar per Hypoglycemia Prevention and Treatment protocol glucose (Glutose) 40 % oral gel 15-30 grams of glucose 15-30 grams of glucose, Sublingual, Every 15 min PRN, Starting on Sun09/30/24 at 1453, Until Sun10/21/24 at 1613, Routine, low blood sugar, per Hypoglycemia Prevention and Treatment protocol iohexol (OMNIPaque) 300 MG/ML injection 100 mL 100 mL, Intravenous, Once in imaging, 1 dose, Starting on Sun09/30/24 at 1440, Until Sun09/30/24 at 1553, Routine, Imaging Protocol Orders Given 09/30/2024 3:53 PM EDT 100 mL iohexol (OMNIPaque) 350 MG/ML injection 100 mL 100 mL, Intravenous, Once in imaging, 1 dose, Starting on Sun10/03/24 at 0136, Until Sun10/03/24 at 0137, Routine, Imaging Protocol Orders Given 10/03/2024 1:37 AM EDT 100 mL lactated Ringer's bolus 500 mL 500 mL, Intravenous, Once, 1 dose, On Sun10/01/24 at 1445, Administer over 2 Hours, Routine New Bag 10/01/2024 3:32 PM EDT 500 mL 250 mL/hr lactated Ringer's bolus 500 mL 500 mL, Intravenous, Once, 1 dose, On Sun10/03/24 at 0845, Administer over 2 Hours, Routine New Bag 10/03/2024 9:56 AM EDT 500 mL 250 mL/hr lactulose (Chronulac) 10 GM/15ML solution 20 g 20 g, Oral, 3 times daily, First dose on Sun09/30/24 at 2100, Until Discontinued, Routine Given 10/21/2024 8:38 AM EDT 20 g Given 10/20/2024 9:38 AM EDT 20 g Given 10/19/2024 8:19 PM EDT 20 g lactulose (Chronulac) 200 g/L rectal enema 200 g 200 g, Rectal, Once, 1 dose, On Sun09/30/24 at 1905, Administer over 60 Minutes, STAT Given 09/30/2024 8:21 PM EDT 200 g levothyroxine (Synthroid, Levoxyl) tablet 88 mcg 88 mcg, Oral, Every morning, First dose on Sun10/01/24 at 0600, Until Discontinued, Routine Given 10/21/2024 5:55 AM EDT 88 mcg Given 10/20/2024 5:22 AM EDT 88 mcg Given 10/19/2024 6:54 AM EDT 88 mcg magic mouthwash BLM (FIRST-Mouthwash) suspension 15 mL 15 mL, Swish & Spit, 4 times daily before meals and nightly, First dose on Sun10/10/24 at 1700, Until Discontinued, Routine Given 10/11/2024 10:52 AM EDT 15 mL Given 10/10/2024 9:13 PM EDT 15 mL Given 10/10/2024 4:51 PM EDT 15 mL magic mouthwash BLM (FIRST-Mouthwash) suspension 15 mL 15 mL, Swish & Spit, 4 times daily before meals and nightly, First dose on Sun10/16/24 at 1745, Until Discontinued, Routine Given 10/20/2024 11:49 AM EDT 15 mL Given 10/19/2024 8:21 PM EDT 15 mL Given 10/19/2024 8:43 AM EDT 15 mL magnesium sulfate in D5W IVPB 1 g 1 g, Intravenous, Once, 1 dose, On Sun10/01/24 at 0430, Routine New Bag 10/01/2024 4:51 AM EDT 1 g melatonin tablet 3 mg 3 mg, Oral, Nightly PRN, Starting on Sun09/30/24 at 2018, Until Sun10/21/24 at 1613, Routine, sleep Given 10/20/2024 9:01 PM EDT 3 mg Given 10/19/2024 8:17 PM EDT 3 mg Given 10/15/2024 8:58 PM EDT 3 mg ondansetron (Zofran) 4 MG/5ML solution 4 mg 4 mg, Oral, Every 6 hours PRN, Starting on Sun09/30/24 at 2018, Until Sun10/21/24 at 1613, Routine, nausea, vomiting ondansetron (Zofran) injection 4 mg 4 mg, Intravenous, Every 6 hours PRN, Starting on Sun09/30/24 at 2018, Until Sun10/21/24 at 1613, Routine, vomiting, nausea ondansetron ODT (Zofran-ODT) disintegrating tablet 4 mg 4 mg, Oral, Every 6 hours PRN, Starting on Sun09/30/24 at 2018, Until Sun10/21/24 at 1613, Routine, nausea, vomiting Given 10/18/2024 6:56 PM EDT 4 mg Given 10/14/2024 8:19 AM EDT 4 mg Given 10/13/2024 7:25 PM EDT 4 mg OXcarbazepine (Trileptal) tablet 150 mg 150 mg, Oral, 2 times daily, First dose on Sun10/02/24 at 2100, Until Discontinued, Routine Given 10/21/2024 8:37 AM EDT 150 mg Given 10/20/2024 9:01 PM EDT 150 mg Given 10/20/2024 9:38 AM EDT 150 mg pantoprazole (Protonix) EC tablet 40 mg 40 mg, Oral, Daily, First dose on Sun10/01/24 at 0900, Until Discontinued, Routine Given 10/21/2024 8:37 AM EDT 40 mg Given 10/20/2024 9:38 AM EDT 40 mg Given 10/19/2024 8:43 AM EDT 40 mg pyridoxine (Vitamin B-6) tablet 50 mg 50 mg, Oral, Daily, First dose on Sun10/02/24 at 1700, Until Discontinued, Routine Given 10/21/2024 10:13 AM EDT 50 mg Given 10/20/2024 9:38 AM EDT 50 mg Given 10/19/2024 8:43 AM EDT 50 mg rifAXIMin (Xifaxan) tablet 550 mg 550 mg, Oral, 2 times daily, First dose on Sun09/30/24 at 2100, Until Discontinued, Routine Given 10/21/2024 8:37 AM EDT 550 mg Given 10/20/2024 9:00 PM EDT 550 mg Given 10/20/2024 9:38 AM EDT 550 mg sodium chloride 0.9 % flush 10 mL 10 mL, Intravenous, Every 12 hours, First dose on Sun09/30/24 at 2020, Until Discontinued, Routine Given 10/04/2024 8:50 PM EDT 10 mL Given 10/04/2024 10:08 AM EDT 10 mL Given 10/03/2024 8:43 PM EDT 10 mL spironolactone (Aldactone) tablet 50 mg 50 mg, Oral, Daily, First dose on Sun10/08/24 at 1100, Until Discontinued Given 10/21/2024 8:37 AM EDT 50 mg Given 10/20/2024 9:38 AM EDT 50 mg Given 10/19/2024 8:43 AM EDT 50 mg thiamine (Vitamin B-1) tablet 100 mg 100 mg, Oral, Daily, First dose on Sun10/01/24 at 0900, Until Discontinued, Routine Given 10/21/2024 8:37 AM EDT 100 mg Given 10/20/2024 9:38 AM EDT 100 mg Given 10/19/2024 8:43 AM EDT 100 mg documented in this encounter Active and Recently Administered Medications Times are shown in EDT. Scheduled Medication Order 10/19/2024 10/20/2024 10/21/2024 amitriptyline (Elavil) tablet 50 mg 50 mg, Oral, Nightly, First dose on Sun10/06/24 at 2100, Until Discontinued, Routine 2017 (Given - Provider: Kiana Chang) 2100 (Given - Provider: Kiana Chang) carvedilol (Coreg) tablet 3.125 mg 3.125 mg, Oral, 2 times daily with meals, First dose on Sun10/01/24 at 0830, Until Discontinued, Routine 0843 (Given - Provider: Josey Bar RN)1630 (Given - Provider: Josey Bar, ARCADIO) 0938 (Given - Provider: Jayant Albarado, ARCAIDO)1656 (Given - Provider: Jayant Albarado, ARCADIO) 0837 (Given - Provider: Jayant Albarado, ARCADIO) donepezil (Aricept) tablet 5 mg 5 mg, Oral, Nightly, First dose on Sun10/02/24 at 2100, Until Discontinued, Routine 2017 (Given - Provider: Kiana Chang) 2100 (Given - Provider: Kiana Chang) DULoxetine (Cymbalta) DR capsule 30 mg 30 mg, Oral, Daily, First dose on Sun10/02/24 at 1700, Until Discontinued, Routine 0843 (Given - Provider: Josey Bar RN) 0938 (Given - Provider: Jayant Albarado, ARCADIO) 0837 (Given - Provider: Jayant Albarado, ARCADIO) enoxaparin (Lovenox) syringe 40 mg 40 mg, Subcutaneous, 2 times daily, First dose (after last modification) on Sun10/02/24 at 0945, Until Discontinued, Routine 0842 (Given - Provider: Josey Bar RN)2019 (Given - Provider: Kiana Chang) 0938 (Given - Provider: Jayant Albarado, ARCADIO)2102 (Given - Provider: Kiana Chang) 0838 (Given - Provider: Jayant Albarado, ARCADIO) ferrous sulfate EC tablet 324 mg 324 mg, Oral, Every other day, First dose on Sun10/12/24 at 0900, Until Discontinued, Routine 0938 (Given - Provider: Jayant Albarado, ARCADIO) fluticasone (Flonase) nasal spray 2 spray 2 spray, Each Nostril, Daily, First dose on Sun10/01/24 at 0900, Until Discontinued, Routine 0843 (Given - Provider: Josey Bar RN) 0938 (Given - Provider: Jayant Albarado, ARCADIO) 0839 (Given - Provider: Jayant Albarado, ARCADIO) lactulose (Chronulac) 10 GM/15ML solution 20 g 20 g, Oral, 3 times daily, First dose on Sun09/30/24 at 2100, Until Discontinued, Routine 0844 (Not Given - Provider: Josey Bar RN - Reason: Patient/family refused)1620 (Given - Provider: Josey Bar RN)2019 (Given - Provider: Kiana Chang) 0938 (Given - Provider: Jayant Albarado, ARCADIO)165 (Not Given - Provider: Jayant Albarado, ARCADIO - Reason: Patient/family refused)2101 (Not Given - Provider: Kiana Chang - Reason: Patient/family refused) 0838 (Given - Provider: Jayant Albarado RN)1600 (Canceled Entry - Provider: Automatic Discharge Provider - Comment: Automatically canceled at discontinue of medication order) levothyroxine (Synthroid, Levoxyl) tablet 88 mcg 88 mcg, Oral, Every morning, First dose on Sun10/01/24 at 0600, Until Discontinued, Routine 0654 (Given - Provider: Shakir Guidry RN) 0522 (Given - Provider: Kiana Chang) 0555 (Given - Provider: Kiana Chang) magic mouthwash BLM (FIRST-Mouthwash) suspension 15 mL 15 mL, Swish & Spit, 4 times daily before meals and nightly, First dose on Sun10/16/24 at 1745, Until Discontinued, Routine 0843 (Given - Provider: Josey Bar RN)1411 (Not Given - Provider: Josey Bar RN - Reason: Patient/family refused)1621 (Not Given - Provider: Josey Bar RN - Reason: Patient/family refused)202 (Given - Provider: Kiana Chang) 0938 (Not Given - Provider: Jayant Albarado RN - Reason: Patient/family refused)1149 (Given - Provider: Jayant Albarado RN)1656 (Not Given - Provider: Jayant Albarado RN - Reason: Patient/family refused)2102 (Not Given - Provider: Kiana Chang - Reason: Patient/family refused) 0838 (Not Given - Provider: Jayant Albarado RN - Reason: Patient/family refused)1205 (Not Given - Provider: Jayant Albarado RN - Reason: Patient/family refused) OXcarbazepine (Trileptal) tablet 150 mg 150 mg, Oral, 2 times daily, First dose on Sun10/02/24 at 2100, Until Discontinued, Routine 0843 (Given - Provider: Josey Bar RN)2224 (Given - Provider: Kiana Chang) 0938 (Given - Provider: Jayant Albarado RN)2101 (Given - Provider: Kiana Chang) 0837 (Given - Provider: Jayant Albarado RN) pantoprazole (Protonix) EC tablet 40 mg 40 mg, Oral, Daily, First dose on Sun10/01/24 at 0900, Until Discontinued, Routine 0843 (Given - Provider: Josey Bar RN) 0938 (Given - Provider: Jayant Albarado RN) 0837 (Given - Provider: Jayant Albarado RN) pyridoxine (Vitamin B-6) tablet 50 mg 50 mg, Oral, Daily, First dose on Sun10/02/24 at 1700, Until Discontinued, Routine 0843 (Given - Provider: Josey Bar RN) 0938 (Given - Provider: Jayant Albarado RN) 1013 (Given - Provider: Jayant Albarado RN) rifAXIMin (Xifaxan) tablet 550 mg 550 mg, Oral, 2 times daily, First dose on Sun09/30/24 at 2100, Until Discontinued, Routine 0843 (Given - Provider: Josey Bar RN)2018 (Given - Provider: Kiana Chang) 0938 (Given - Provider: Jayant Albarado RN)2100 (Given - Provider: Kiana Chang) 0837 (Given - Provider: Jayant Albarado RN) spironolactone (Aldactone) tablet 50 mg 50 mg, Oral, Daily, First dose on Sun10/08/24 at 1100, Until Discontinued 0843 (Given - Provider: Josey Bar RN) 0938 (Given - Provider: Jayant Albarado RN) 0837 (Given - Provider: Jayant Albarado, ARCADIO) thiamine (Vitamin B-1) tablet 100 mg 100 mg, Oral, Daily, First dose on Sun10/01/24 at 0900, Until Discontinued, Routine 0843 (Given - Provider: Josey Bar RN) 0938 (Given - Provider: Jayant Albarado RN) 0837 (Given - Provider: Jayant Albarado RN) PRN Medication Order 10/19/2024 10/20/2024 10/21/2024 acetaminophen (Tylenol) tablet 650 mg 650 mg, Oral, Every 8 hours PRN, Starting on Sun09/30/24 at 2018, Until Sun10/21/24 at 1613, Routine, mild pain 2016 (Given - Provider: Kiana Chang) [facility] Jayant Albarado [facility]2100 (Given - Provider: Kiana Chang) albuterol 108 (90 Base) MCG/ACT inhaler 1 puff 1 puff, Inhalation, 4 times daily PRN, Starting on Summer 10/02/24 at 1551, Until Sun10/21/24 at 1613, Routine, wheezing 0843 (Given - Provider: Josey Bar RN) benzocaine (Orajel) 10 % mucosal gel 1 Application Mouth/Throat, 4 times daily PRN, Starting on Sun10/07/24 at 2142, Until Sun10/21/24 at 1613, Routine, mild pain dextrose 50 % solution 12.5-25 g(Linked Group 1) 12.5-25 g, Intravenous, Every 15 min PRN, Starting on Sun09/30/24 at 1453, Until Sun10/21/24 at 1613, Routine, low blood sugar glucagon (human recombinant) injection 1 mg(Linked Group 1) 1 mg, Intramuscular, Every 15 min PRN, Starting on Sun09/30/24 at 1453, Until Sun10/21/24 at 1613, Routine, low blood sugar per Hypoglycemia Prevention and Treatment protocol glucose (Glutose) 40 % oral gel 15-30 grams of glucose(Linked Group 1) 15-30 grams of glucose, Sublingual, Every 15 min PRN, Starting on Sun09/30/24 at 1453, Until Tu10/21/24 at 1613, Routine, low blood sugar, per Hypoglycemia Prevention and Treatment protocol melatonin tablet 3 mg 3 mg, Oral, Nightly PRN, Starting on Sun09/30/24 at 2018, Until Sun10/21/24 at 1613, Routine, sleep 2017 (Given - Provider: Kiana Chang) 210 (Given - Provider: Kiana Chang) ondansetron (Zofran) 4 MG/5ML solution 4 mg(Linked Group 2) 4 mg, Oral, Every 6 hours PRN, Starting on Sun09/30/24 at 2018, Until Tu10/21/24 at 1613, Routine, nausea, vomiting ondansetron (Zofran) injection 4 mg(Linked Group 2) 4 mg, Intravenous, Every 6 hours PRN, Starting on Sun09/30/24 at 2018, Until Sun10/21/24 at 1613, Routine, vomiting, nausea ondansetron ODT (Zofran-ODT) disintegrating tablet 4 mg(Linked Group 2) 4 mg, Oral, Every 6 hours PRN, Starting on Sun09/30/24 at 2018, Until Sun10/21/24 at 1613, Routine, nausea, vomiting Linked Groups Order Group 1: glucose (Glutose) 40 % oral gel 15-30 grams of glucoseJump to med 15-30 grams of glucose, Sublingual, Every 15 min PRN, Starting on Sun09/30/24 at 1453, Until Sun10/21/24 at 1613, Routine, low blood sugar, per Hypoglycemia Prevention and Treatment protocol Or dextrose 50 % solution 12.5-25 gJump to med 12.5-25 g, Intravenous, Every 15 min PRN, Starting on Sun09/30/24 at 1453, Until Sun10/21/24 at 1613, Routine, low blood sugar Or glucagon (human recombinant) injection 1 mgJump to med 1 mg, Intramuscular, Every 15 min PRN, Starting on Sun09/30/24 at 1453, Until Sun10/21/24 at 1613, Routine, low blood sugar per Hypoglycemia Prevention and Treatment protocol Group 2: ondansetron ODT (Zofran-ODT) disintegrating tablet 4 mgJump to med 4 mg, Oral, Every 6 hours PRN, Starting on Sun09/30/24 at 2018, Until Sun10/21/24 at 1613, Routine, nausea, vomiting Or ondansetron (Zofran) injection 4 mgJump to med 4 mg, Intravenous, Every 6 hours PRN, Starting on Sun09/30/24 at 2018, Until Sun10/21/24 at 1613, Routine, vomiting, nausea Or ondansetron (Zofran) 4 MG/5ML solution 4 mgJump to med 4 mg, Oral, Every 6 hours PRN, Starting on Sun09/30/24 at 2018, Until Sun10/21/24 at 1613, Routine, nausea, vomiting documented in this encounter Additional Health Concerns Infection Onset Date Last Indicated Resolved Time COVID-19 Rule-Out 09/30/2024 09/30/2024 09/30/2024 11:37 PM EDT Respiratory Rule-Out 09/30/2024 09/30/2024 025 12:42 AM EDT Assessment Noted Time A fall risk assessment has been complete d for the patient 11/19/2020 2:32 PM EDT A Body Mass Index follow-up plan has been documented for the patient 10/21/2024 1:55 PM EDT documented as of this encounter Care Teams Open Cut Examiner Relationship Specialty Start Date End Date Pcp, No [address] [place] [address] PCP - General Family Medicine 09/30/24 09/30/24 [place] [address] PCP - General 10/01/24 documented as of this encounter
[2024-11-19] VITALS (10 sets, daily range): BP systolic 95–130; BP diastolic 52–74; PULSE 54–75; RESP 14–18; TEMP 36.7–37; O2SAT 93–100; BMI 43.4
--- NOTE | 2024-11-19 08:27 | HMH.EDGENADL ---
Discharge Plan Disposition Patient Disposition: Home, Self-Care Condition: Fair Prescriptions Prescriptions: No Action lidocaine 5 % Adhesive Patch,Medicated 1 patch TOPICAL DAILYP PRN (Reason: Pain) Rx Instructions: leave on most painful area for up to 12 hrs oxcarbazepine 150 mg Tablet 150 mg PO BID donepezil 5 mg Tablet 5 mg PO HS cholecalciferol (vitamin D3) 1,250 mcg (50,000 unit) Capsule 1,250 mcg PO WEEKLY Rx Instructions: weekly on SUNDAY promethazine 25 mg suppository 25 mg HI Q6HP PRN (Reason: Nausea And Vomiting) carvedilol 3.125 mg Tablet 3.125 mg PO BID 30 Days Qty: 60 0RF spironolactone 50 mg tablet 50 mg PO DAILY Qty: 30 0RF pantoprazole 40 mg Tablet,Delayed Release (Dr/Ec) 40 mg PO HS duloxetine 30 mg Capsule,Delayed Release(Dr/Ec) 30 mg PO DAILY melatonin 5 mg tablet 10 mg PO HS pyridoxine (vitamin B6) 50 mg tablet 50 mg PO DAILY acetaminophen 325 mg Tablet 325 mg PO Q6HP PRN (Reason: Mild Pain (Scale Score 1-4)) cyclobenzaprine 5 mg Tablet 5 mg PO TIDP PRN (Reason: Muscle Spasm) ferrous sulfate 324 mg (65 mg iron) tablet,delayed release (DR/EC) 324 mg PO Q2D Rx Instructions: take 1 tab every other day albuterol sulfate 90 mcg/actuation HFA aerosol inhaler 1 puff inhalation Q6HP PRN (Reason: Shortness Of Breath) Patient Comments: INHALE 1 PUFF BY MOUTH EVERY 6 HOURS NEEDED may keep AT bedside (shortness of breath) ondansetron 4 mg tablet,disintegrating 4 mg PO Q6H PRN (Reason: nausea and vomiting) Qty: 10 0RF meloxicam 15 mg tablet 15 mg PO DAILY amlodipine 5 mg tablet 5 mg PO HS levothyroxine 88 mcg tablet 88 mcg PO DAILY polyethylene glycol 3350 17 gram/dose powder 17 g PO DAILY alum-mag hydroxide-simeth [Almacone-2] 400-400-40 mg/5 mL suspension 30 ml PO DAILYP PRN (Reason: gerd) lactulose 10 gram/15 mL solution 30 ml PO TID cetirizine 10 mg tablet 10 mg PO DAILY fluticasone prp-sod.chl,bicarb 50 mcg- 0.9 % Kit,Sylvester Suspension And Sylvester 1 ea INTRANASAL DAILY Referrals Follow up/Referrals: Provider,Referral, MD [Referring, Medical] - See instructions Activity Restrictions/Add. Instructions Additional Instructions/Restrictions: You may take [id number]-[id number] Tessalon Perles as needed for cough and Tylenol as needed for headache and pain. You have mild pancreatitis which I suspect will get better on its own. Clear liquid diet and slowly advance as tolerated. Stay well-hydrated. Please follow up with your primary care provider in 2-3 days. Please return to ED if your symptoms worsen, change in location, change in severity, new symptoms develop or if you become concerned for your health. Clinical Impressions Clinical Impression: Pancreatitis, Acute viral syndrome Print Language Print Language: Uzbek Discharge ED Provider: Sourav Radford Adult HPI General Chief complaint: Shortness of Breath/Dyspnea Stated complaint: SOA Time Seen by Provider: 11/19/24 08:27 History of Present Illness HPI narrative: Patient is a 54-year-old female with a history of hypothyroidism, chronic leg pain, GERD, cirrhosis. She presents today due to concerns for cough, chest pain, shortness of breath that began about 2 days ago and has been getting worse. She also reports that the pain is worse after coughing fits. She reports it is not a productive cough. She reports a headache as well bifrontal and pain over the bilateral maxilla again worse when she coughs. She also reports epigastric abdominal pain and had 1 episode of nonbloody vomiting last night and reports some nausea. She denies any fevers, sick contacts, though does live at an assisted care facility. She has diffuse abdominal pain, but she reports that this is chronic. She reports that she is urinating appropriately and eating and drinking okay. She denies feeling specifically dyspneic, orthopneic, or worse with exertion. she denies history of blood clots or Unilateral leg swelling Related Data Home Medications ?Medication ?Instructions ?Recorded ?Confirmed duloxetine 30 mg capsule,delayed 30 mg PO DAILY 05/02/22 11/19/24 release pantoprazole 40 mg tablet,delayed 40 mg PO HS 05/02/22 11/19/24 release melatonin 5 mg tablet 10 mg PO HS 05/03/22 11/19/24 pyridoxine (vitamin B6) 50 mg 50 mg PO DAILY 02/21/23 11/19/24 tablet acetaminophen 325 mg tablet 325 mg PO Q6HP PRN Mild Pain 05/14/23 11/19/24 (Scale Score 1-4) cyclobenzaprine 5 mg tablet 5 mg PO TIDP PRN Muscle Spasm 05/14/23 11/19/24 ferrous sulfate 324 mg (65 mg 324 mg PO Q2D 05/14/23 11/19/24 iron) tablet,delayed release albuterol sulfate 90 mcg/actuation 1 puff inhalation Q6HP PRN 07/18/23 11/19/24 aerosol inhaler Shortness Of Breath cholecalciferol (vitamin D3) 1,250 1,250 mcg PO WEEKLY 04/06/24 11/19/24 mcg (50,000 unit) capsule donepezil 5 mg tablet 5 mg PO HS 04/06/24 11/19/24 lidocaine 5 % topical patch 1 patch topical DAILYP PRN Pain 04/06/24 11/19/24 oxcarbazepine 150 mg tablet 150 mg PO BID 04/06/24 11/19/24 promethazine 25 mg rectal 25 mg HI Q6HP PRN Nausea And 04/06/24 11/19/24 suppository Vomiting aluminum-mag hydroxide-simethicone 30 ml PO DAILYP PRN gerd 11/19/24 11/19/24 400 mg-400 mg-40 mg/5 mL oral susp (Almacone-2) amlodipine 5 mg tablet 5 mg PO HS 11/19/24 11/19/24 cetirizine 10 mg tablet 10 mg PO DAILY 11/19/24 11/19/24 fluticasone prop.50 mcg 1 ea intranasal DAILY 11/19/24 11/19/24 spray,suspen-sod.chloride 0.9% nasal spray kit lactulose 10 gram/15 mL oral 30 ml PO TID 11/19/24 11/19/24 solution levothyroxine 88 mcg tablet 88 mcg PO DAILY 11/19/24 11/19/24 meloxicam 15 mg tablet 15 mg PO DAILY 11/19/24 11/19/24 polyethylene glycol 3350 17 17 g PO DAILY 11/19/24 11/19/24 gram/dose oral powder Previous Rx's ?Medication ?Instructions ?Recorded carvedilol 3.125 mg tablet 3.125 mg PO BID 30 days #60 tabs 04/07/24 spironolactone 50 mg tablet 50 mg PO DAILY #30 tabs 04/07/24 Held on 08/26/24. Instructions: Resume on 08/29/24. ondansetron 4 mg disintegrating 4 mg PO Q6H PRN nausea and 08/26/24 tablet vomiting #10 tabs Allergies Allergy/AdvReac Type Severity Reaction Status Date / Time amoxicillin (From Augmentin) Allergy Unknown Verified 03/25/24 17:02 allergy reaction clavulanic acid (From Allergy Unknown Verified 03/25/24 17:02 Augmentin) allergy reaction oxycodone Allergy Unknown Verified 03/25/24 17:02 allergy reaction PFSH PFS Disclaimer: The information contained in this section may have been updated after the patient was seen, as this information can be updated by other users. Medical History (Updated 11/19/24 @ 11:41 by Sourav Radford MD) Dizziness Dyspnea Nausea Headache Constipation Abnormal finding on diagnostic imaging of kidney Pyelonephritis Cirrhosis of liver Bipolar 1 disorder Hypothyroidism Hypertension Cognitive impairment Murmur, heart Obstructive sleep apnea Hypothyroid Anxiety Surgical History H/O section H/O hernia repair Hx of appendectomy Family History Other No significant family history Social History Smoking Status: Never smoker alcohol intake: never current occupational status: disabled Travel in the last 8 weeks?: None Have you lived/traveled outside US in past 30 days?: No Contact w/someone who lives/traveled outside US past 30 days?: No Exposure to someone with infectious disease in past 14 days?: No Do you have a fever (greater than 100.4 F or 38 C)?: No Have you tested positive for COVID-19?: No Exposed to someone with COVID-19 in past 14 days?: No Do you have a sore throat?: No Do you have a cough?: No Do you have any weakness?: No Do you have any diarrhea?: No Are you experiencing any unusual bleeding?: No Do you have any muscle aches/pain?: No Do you have any abdominal pain?: No Are you experiencing loss of taste or smell?: No Other Medical History Have you received the Flu Vaccine for this season: No Have you received the Pneumonia Vaccine: No ROS Obtained: Yes All systems reviewed & no additional complaints except as documented Physical Exam General General appearance: alert and in no apparent distress Head Head exam: atraumatic and normocephalic Eye Eye exam: Present PERRL and EOMI ENT ENT exam: Present normal oropharynx Neck Neck exam: Present full ROM and trachea midline Chest Chest inspection: Present symmetric chest wall rise Respiratory Respiratory exam: Present normal lung sounds bilaterally; Absent stridor Cardiovascular Cardiovascular exam: Present regular rate and normal rhythm Abdominal Exam Abdominal exam: Present soft; Absent distention or tenderness Extremities Exam Extremities exam: Present full ROM Neurological Exam Neurological exam: Present alert and oriented X3 Psychiatric Psychiatric exam: Present normal mood Skin Skin exam: Present warm and dry Medical Decision Making Medical Records Screening: Per USPSTF and CDC recommendations, given the prevalence of disease in our region, it is our hospital?s policy to screen for HIV and viral Hepatitis for all patients aged 18 and over and those with ongoing risk factors. Darrian Inquiry Pt receiving controlled substance: No Vital Signs: 11/19/24 08:34 11/19/24 09:00 11/19/24 09:30 Temperature 98.1 F Temperature Source Oral Pulse Rate 69 55 L Pulse Rate [Right] 69 Respiratory Rate 16 18 14 Blood Pressure 115/59 L 115/59 L Blood Pressure [Right Arm] 130/67 Blood Pressure Mean 79 Blood Pressure Mean [Right Arm] 88 02 Sat by Pulse Oximetry 97 100 100 Oxygen Delivery Method Room Air Room Air 11/19/24 09:30 11/19/24 10:01 11/19/24 10:26 Temperature Temperature Source Pulse Rate 54 L 75 64 Pulse Rate [Right] Respiratory Rate 16 18 15 Blood Pressure 109/64 L 95/59 L 95/59 L Blood Pressure [Right Arm] Blood Pressure Mean 78 75 Blood Pressure Mean [Right Arm] 02 Sat by Pulse Oximetry 98 93 L Oxygen Delivery Method Room Air 11/19/24 10:31 11/19/24 11:00 Temperature Temperature Source Pulse Rate 60 62 Pulse Rate [Right] Respiratory Rate 18 18 Blood Pressure 107/73 L 123/71 Blood Pressure [Right Arm] Blood Pressure Mean 84 86 Blood Pressure Mean [Right Arm] 02 Sat by Pulse Oximetry 98 98 Oxygen Delivery Method Lab Data Lab Results 11/19/24 08:43: WBC 3.1 L, RBC 3.70 L, Hgb 12.0 L, Hct 36.1 L, MCV 97.6, MCH 32.4 H, MCHC 33.2, RDW 13.3, Plt Count 85 L, MPV 8.7, Neut % (Auto) 61.1, Lymph % (Auto) 21.9, Bucks % (Auto) 11.4 H, Eos % (Auto) 4.2, Baso % (Auto) 0.7, Neut # (Auto) 1.9, Lymph # (Auto) 0.7, [place] # (Auto) 0.4, Eos # (Auto) 0.1, Baso # (Auto) 0.0, PT 11.8, INR 1.07, Sodium 139, Potassium 3.7, Chloride 109 H, Carbon Dioxide 27, Anion Gap 6.7, BUN 8, Creatinine 1.10 H, Estimated Creat Clear 45, Estimated GFR 52 L, Est GFR ( Amer) 63, Glucose 91, Calcium 9.1, Magnesium 2.0, Total Bilirubin 1.6 H, AST 66 H, ALT 32, Alkaline Phosphatase 101, Troponin I < 0.01, NT-Pro-B Natriuret Pep 133 H, Total Protein 7.1, Albumin 3.6, Globulin 3.5 H, Albumin/Globulin Ratio 1.0 L, Lipase 429 H, SARS-CoV-2 (PCR) Not detected, HIV Ag/Ab Combo Qual Negative, Influenza A Untype (PCR) Not detected, Influenza Type B (PCR) Not detected 11/19/24 08:43 11/19/24 08:43 Orders (Tests/Meds): ED MEDICATIONS Generic Name Dose Route Start Last Admin Trade Name Freq PRN Reason Stop Dose Admin Sodium Chloride 8 ml 11/19/24 08:40 Sodium Chloride 0.9% 10ml Vial IV 12/19/24 08:39 NEEDED PRN dilute pepcid Discontinued Medications Generic Name Dose Route Start Last Admin Trade Name Freq PRN Reason Stop Dose Admin Albuterol/Ipratropium 3 ml 11/19/24 08:40 11/19/24 08:59 Ipratropium/Albuterol 3 Ml Neb IH 11/19/24 08:41 3 ml ONCE ONE Administration Belladonna Alkaloids 60 ml 11/19/24 08:40 11/19/24 08:58 Belladonna Alkaloids 60 Ml Ml PO 11/19/24 08:41 60 ml ONCE ONE Administration Famotidine 20 mg 11/19/24 08:40 11/19/24 08:58 Famotidine 20mg/2ml Vial IV 11/19/24 08:41 20 mg ONCE ONE Administration Iopamidol 85 ml 11/19/24 10:11 11/19/24 10:14 Iopamidol-370 (76%);100ml Bottle IV 11/19/24 10:12 85 ml ONCE ONE Administration Ketorolac Tromethamine 15 mg 11/19/24 08:40 11/19/24 08:58 Ketorolac 30mg/Ml Vial IV 11/19/24 08:41 15 mg ONCE ONE Administration Ondansetron HCl 4 mg 11/19/24 08:40 11/19/24 08:58 Ondansetron 4mg/2ml Vial IV 11/19/24 08:41 4 mg ONCE ONE Administration Sodium Chloride 50 ml 11/19/24 10:11 11/19/24 10:14 0.9 % Sodium Chloride 50 Ml Vial IV 11/19/24 10:12 50 ml ONCE ONE Administration Sodium Chloride 10 ml 11/19/24 10:11 11/19/24 10:14 Sodium Chloride 0.9% 10ml Syr (Rad Only) IV 11/19/24 10:12 10 ml ONCE ONE Administration ORDERS Category Date Time Status CT abdomen pelvis w con Stat Cat Scan 11/19/24 09:[address] angio chest PE protocol Stat Cat Scan 11/19/24 09:52 Completed XR chest portable Stat Exams 11/19/24 08:41 Completed BNP [NT Pro Brain Natriuretic Pep.] Stat Lab 11/19/24 08:43 Completed CBC w/Auto Diff [Complete Blood Count Auto Diff] Stat Lab 11/19/24 08:43 Completed CMP [Comprehensive Metabolic Panel] Stat Lab 11/19/24 08:43 Completed HIV Combo Stat Lab 11/19/24 08:43 Completed Lactic Acid Stat Lab 11/19/24 09:35 Received Lipase Stat Lab 11/19/24 08:43 Completed MAG [Magnesium] Stat Lab 11/19/24 08:43 Completed PT INR [Prothrombin Time INR] Stat Lab 11/19/24 08:43 Completed Rapid PCR Covid and Flu A/B Stat Lab 11/19/24 08:43 Completed Trop I [Troponin I] Stat Lab 11/19/24 08:43 Completed Troponin I Q3H Lab 11/19/24 11:45 Ordered Troponin I Q3H Lab 11/19/24 14:45 Ordered ECG Data Tracing #1: I reviewed this ECG and interpreted as documented below: Normal sinus rhythm with no acute ischemic ST changes and intervals are within normal limits. Medical Decision Narrative: In summary, this 54-year-old female presents to the emergency department today with cough, headache, chest pain. On initial evaluation patient is afebrile, hemodynamically stable and in no acute distress. On exam, is on room air, no increased work of breathing. Lung sounds are clear to station bilaterally with perhaps a slight end expiratory wheeze in the bilateral upper lung lobes. She denies a history of emphysema or COPD, but will trial DuoNeb to see if improvement could be consistent with emphysematous lung disease. Heart is otherwise regular rate and rhythm, her abdomen is obese, but soft, no peritoneal signs. Diffusely mildly tender which she reports is chronic. Is more moderately tender in the epigastrium. Suspect this could be gastritis secondary to her vomiting which is likely a viral syndrome type picture. She also likely has a component of bronchitis and possibly a sinus tension headache given her headache worse with her coughing. Will treat symptomatically with Toradol Zofran Pepcid and reassess. Will also screen for ACS with troponins rule out pneumonia with chest x-ray low suspicion for dissection or pulmonary embolism given absence of significant risk factors and history more consistent with viral syndrome. Will screen for heart failure with BNP, given 1+ pitting edema in the bilateral lower extremities, though less likely to be contributing to today's picture. Edema could be secondary to her cirrhosis hypoalbuminemia. On my review of the hematologic labs, patient does have a significantly elevated lipase to 428. She is reproducibly tender in epigastrium even after multimodal pain control, given persistent abdominal pain, will proceed with CT abdomen. CT PE and CT abdomen are unremarkable per my independent review and convert by the radiologist final read. Regarding elevated lipase, patient is able to tolerate clears and her pain is well-controlled. She is sleeping for the majority of her time in the emergency department. I suspect that this mild pancreatitis could be related to an concomitant viral infection due to her congestion and cough. Will send with Kendra Farris for cough, Tylenol as needed headache. Instructed on clear liquid diet and slowly advancing diet. Strict precautions were discussed. Of note, social determinants of health include poor health literacy. Admission was considered, but given patient is tolerating oral intake and her pain is well-controlled, felt that the mild pancreatitis can be managed outpatient. At this time it was felt that the patient was safe to be discharged home. The patient was in agreement with this plan. The patient was given strict return precautions prior to being discharged from the emergency department. Critical Care Critical Care Time Critical Care Time: No
--- NOTE | 2024-11-19 08:31 | ECG_ITS ---
APPROVED REPORT Exam: Resting ECG HR:68 bpm ECG Measurements Heart Rate 68 AXES VT 175 P -7 QRSd 96 QRS 12 QT 412 T 9 QTc 429 Conclusion SINUS RHYTHM NORMAL ECG UNCONFIRMED REPORT Electronically signed by : Sourav Radford, 11/19/2024 17:01:25
--- NOTE | 2024-11-19 08:41 | XR_ITS ---
FINAL REPORT TECHNIQUE: Single view chest CLINICAL HISTORY: sob cough COMPARISON: 08/26/2024 FINDINGS: A single view of the chest was obtained. The heart and mediastinum are within normal limits. The lungs are clear. There is no pneumothorax. IMPRESSION: No acute cardiopulmonary process. Reviewed, Interpreted and Dictated by Raina Tirado MD Transcribed by Filomena Sauceda Authenticated and [facility]
[2024-11-19 08:53] LABS: Coronavirus 19, PCR Not Detected (NotDetected); Influenza A, PCR Not Detected (NotDetected); Influenza B, PCR Not Detected (NotDetected)
--- OUTSIDE RECORDS SUMMARY | 2024-11-19 08:56 | XMS_ITS | Clinical Summary ---
Author Organization Healthcare Address [address] [id number] Care Team Providers Care Yeast Washer Name Role Phone Celsa Pereira RN Primary Care Provider Unava ilable Allergies Active Allergy Reactions Criticality Noted Date Comments Amoxicillin-Pot Clavulanate Shortness of breath,Other - please document in the comment field High 03/17/2019 SHAKES Buspirone Other - please document in the comment field,Unknown - Patient states they do not know rxn details Low 07/14/2015 uncontrollable movements CAUSES NAUSEA AND SHAKES Sulfa Drugs Unknown - Patient states they do not know rxn details Low 10/02/2020 Medications * This document contains information received from the source organization and may not represent a complete record from that organization. ferrous sulfate 324 (65 Fe) MG EC tablet Take 1 tablet (324 mg total) by mouth every other day. Do not crush, chew, or split. 30 tablet 3 022 Active cetirizine (ZyrTEC) 10 MG tablet Take 1 tablet by mouth daily. Active fluticasone (Flonase) 50 MCG/ACT nasal spray Administer 2 sprays into each nostril daily. Shake gently. Before first use, prime pump. After use, clean tip and replace cap. Active levothyroxine (Synthroid, Levoxyl) 88 MCG tablet Take 1 tablet by mouth daily before breakfast. Active pantoprazole (Protonix) 40 MG EC tablet Take 1 tablet by mouth daily before breakfast. Do not crush, chew, or split. Active spironolactone (Aldactone) 50 MG tablet Take 1 tablet by mouth daily. Active cholecalcifero l (True Vitamin D3) 1.25 MG (48292 UT) capsule Take 1 capsule by mouth 1 time per week. Active pyridoxine 50 MG tablet Take 1 tablet by mouth daily. Active amitriptyline (Elavil) 50 MG tablet Take 1 tablet by mouth nightly. Active donepezil (Aricept) 5 MG tablet Take 1 tablet by mouth nightly. Active Melatonin 5 MG tablet tablet Take 2 tablets by mouth. Active carvedilol (Coreg) 3.125 MG tablet Take 1 tablet by mouth 2 times a day with meals. Active OXcarbazepine (Trileptal) 150 MG tablet Take 1 tablet by mouth 2 times a day. Active cyclobenzaprin e (Flexeril) 5 MG tablet Take 1 tablet by mouth 3 times a day as needed for muscle spasms. Active acetaminophen (Tylenol) 325 MG tablet Take 1 tablet by mouth every 6 hours as needed. Under [place] law, monthly prescriptions (30 days) can be refilled at 25 days and three-month prescriptions (90 days) at 80 days. Please contact the insurance company with questions if refills are denied. Active albuterol 108 (90 Base) MCG/ACT inhaler Inhale 1 puff 4 times a day as needed for wheezing. Active rifAXIMin (Xifaxan) 550 MG tablet Take 1 tablet by mouth 3 times a day. Active lidocaine (Lidoderm) 5 % patch Apply 1 patch topically daily. Remove & discard patch within 12 hours or as directed by MD. Active diclofenac (Voltaren) 1 % topical gel Place 2 g on the skin 2 times a day. Apply as directed to lower back and both knees. Active DULoxetine (Cymbalta) [address] capsule Take 1 capsule by mouth daily. Do not crush or chew. 30 capsule 1 025 2024 Active lactulose (Chronulac) 10 GM/15ML solution Take 30 mL by mouth 3 times a day. Goal 3-4 bowel movements per day. 2700 mL 025 2024 Active thiamine (Vitamin B-1) 100 MG tablet Take 1 tablet by mouth daily. 30 tablet 025 2024 Active amLODIPine (Norvasc) 5 MG tablet Take by mouth nightly. 2024 Discontinued promethazine (Phenergan) 25 MG suppository Insert 1 suppository into the rectum every 6 hours as needed for nausea or vomiting. 2024 Discontinued DULoxetine (Cymbalta) [address] capsule Take 1 capsule by mouth daily. Do not crush or chew. 025 2024 Discontinued(S top Taking at Discharge) lactulose (Chronulac) 10 GM/15ML solution Take 30 mL by mouth 3 times a day. Goal 3-4 bowel movements per day. 025 2024 Discontinued thiamine (Vitamin B-1) 100 MG tablet Take 1 tablet by mouth daily. 025 2024 Discontinued Active Problems Problem Noted Date Diagnosed Date Acute encephalopathy 09/30/2024 KYLIE (acute kidney injury) 09/30/2024 Hypoglycemia 09/30/2024 Mild cognitive impairment 11/26/2021 Morbid obesity with body mass index (BMI) of 40. 0 or higher 05/17/2021 Heart murmur 03/28/2021 Encephalopathy acute 01/19/2021 BMI 40.0-44.9, adult 11/22/2020 Thrombocytopenia 11/22/2020 HE (hepatic encephalopathy) 11/19/2020 At high risk for falls 10/03/2020 Cirrhosis of liver without ascites 10/02/2020 FERNANDEZ (obstructive sleep apnea) 04/05/2019 Anxiety and depression 03/17/2019 Obesity, morbid, BMI 40.0-49.9 03/17/2019 Hypothyroidism 06/14/2015 Dyslipidemia 07/25/2014 Allergic rhinitis 07/25/2014 Encounters Date Type Department Care Team Description 10/18/2024 Travel 10/11/2024 Travel 10/03/2024 Travel 10/01/2024 Travel 09/30/2024 2:02 PM EDT - 10/21/2024 2:13 PM EDT Hospital Encounter [facility] Inpatient [address] [place] [address] Edda Watts DO Arndt, Frederick, MD Romond, John B, MD Chadha, Jagriti, MD Crutcher, Teetee Stockton MD Acute encephalopathy (Primary Dx); HE (hepatic encephalopathy) (CMS/HCC); Thrombocytopenia (CMS/HCC); Dysarthria; Chest pain, unspecified type; Hepatic encephalopathy (CMS/HCC); Altered mental status, unspecified altered mental status type Discharge Disposition: Home-Health Care [facility] 09/30/2024 Travel from Last 3 Months Immunizations Immunization Administration Dates Next Due Hep B, adult 07/27/2020 Influenza, injectable, quadrivalent, preservativ e free 02/16/2020,02/15/2018 [facility] COVID-19 Vaccine (Blue Cap) 18+ 03/08/20 21 Pf[employer] COVID-19 Vac cine (Youssef Cap) 12+ years (yamini-sucrose) 08/18/2021 TD (adult), 2 Lf tetanus tox oid, preservative free, adsorbed 05/18/1998 Social History Tobacco Use Types Packs/Day Years Used Date Smoking Tobacco: Never Smokeless Tobacco: Never Tobacco Cessation:Counseling Given: Yes Alcohol Use Standard Drinks/Week Comments Never 0 [...] any time in the past 12 m [facility], were you homeless or living in a longterm (including now)? No 10/01/2024 Utilities Answer Date Recorded In the past 12 months has e electric, gas, oil, or water company threatened to shut off services in your home? No 10/01/2024 Comments No Sex and Gender Information Value Date Recorded Sex Assigned at Not on file Legal Sex Female 6:18 PM EDT Gender Identity Not on file Sexual Orientation Not on file Last Filed Vital Signs Vital Sign Reading [...] Mass Index 46.72 10/01/2024 7:54 AM EDT Plan of Treatment Health Maintenance Due Date Last Done Comments [facility]-Depression Screening 1971 [facility]-/Child/Adol SDOH Screenings 1971 [facility]-Hepatitis A Vaccines (1 of 2 - Risk 2-dose series) 1990 [facility]-Pneumococcal Vaccine: 50+ Years (1 of 2 - PCV) 1990 CT Colonography 2016 Colonoscopy 2016 FIT-DNA 2016 FIT 2016 FOBT 2016 Sigmoidoscopy 2016 [facility]-Colorectal Cancer Screening 2016 [facility]-Hepatitis B Vaccines (2 of 3 - 19+ 3-dose series) 08/24/2020 07/27/2020 [facility]-Breast Cancer Screening 2021 [facility]-Zoster Vaccines (1 of 2) 2021 [id number] Vaccine (4 - season) 2023 08/18/2021, 03/08/2021, 12/29/2020 [facility]-Influenza Vaccine (#1) 2024 02/16/2020, [facility]- SDOH Screenings 04/02/2025 [facility]-Adult SDOH Screenings 04/02/2025 10/01/2024 [facility]-DTaP,Tdap,and Td Vaccines (2 - Td or Tdap) 01/03/2033 01/03/2023, 05/18/1998 [facility]-Cervical Cancer Screening Discontinued [facility]-HPV/Cotest Discontinued 12/11/2018 [facility]-Pap Smear Discontinued 12/11/2018 [facility]-Diabetes: Hemoglobin A1C Discontinued 06/27/2021, 12/02/2020, 09/19/2019, Additional history exists [facility]-HIV Screening Completed 09/30/2024, , 09/27/2016 [facility]-Hepatitis C Screening Completed 2024, 09/30/2024, 10/04/2020, Additional history exists [facility]-Obesity Intervention Completed 09/30/2024 HPV Vaccines Aged Out No longer eligi ble based on patient's age to complete this topic [facility]-HIB Vaccines Aged Out No longer e ligible based on patient's age to complete this topic [facility]-IPV Vaccines Aged Out No longer e ligible based on patient's age to complete this topic [facility]-Rotavirus Vaccines Aged Out No lo nger eligible based on patient's age to complete this topic Procedures Procedure Name Priority Date/Time Associated Diagnosis Comments US EXTREMITY LIMITED MSK OR SOFT TISSUE Routine 10/18/2024 11:21 AM EDT COMPREHENSIVE METABOLIC PANEL, PLASMA Routine 10/17/2024 4:53 AM EDT CBC W/O DIFFERENTIAL Routine 10/17/2024 4:53 AM EDT US HEAD NECK SOFT TISSUE Routine 10/11/2024 10:26 AM EDT COMPREHENSIVE METABOLIC PANEL, PLASMA Routine 10/07/2024 4:46 AM EDT COMPREHENSIVE METABOLIC PANEL, PLASMA Routine 10/05/2024 7:04 PM EDT POCT GLUCOSE METER UNSOLICITED RESULTS Routine 10/05/2024 3:05 AM EDT PHOSPHORUS, PLASMA Routine 10/04/2024 5: 20 AM EDT COMPREHENSIVE METABOLIC PANEL, PLASMA Routine 10/04/2024 5:20 AM EDT MAGNESIUM, PLASMA Routine 10/04/2024 5:2 0 AM EDT CBC WITH AUTO DIFFERENTIAL Routine 10/04/2024 5:20 AM EDT BLOOD GAS PANEL, VENOUS STAT 10/05/19 5:[address] ANGIO NECK STAT 10/03/2024 1:[address] ANGIO HEAD STAT 10/03/2024 1:[address] HEAD WO IV CONTRAST STAT 1:15 AM EDT ECG ADULT STAT 10/03/2024 12:47 AM EDT CRITICAL CARE Routine 10/03/2024 12:45 AM EDT Acute encephalopathy HE (hepatic encephalopathy) ([facility]/HCC) Thrombocytopenia (CMS/HCC) Dysarthria Chest pain, unspecified type POCT ISTAT BLOOD GAS VENOUS Routine 10/03/2024 12:44 AM EDT EXTRA TUBE LIGHT BLUE TOP Routine 10/03/2024 12:42 AM EDT EXTRA TUBES Routine 10/03/2024 12:42 AM EDT PHOSPHORUS, PLASMA Routine 10/03/2024 12 :42 AM EDT MAGNESIUM, PLASMA Routine 10/03/2024 12: 42 AM EDT CBC WITH AUTO DIFFERENTIAL Routine 10/03/2024 12:42 AM EDT COMPREHENSIVE METABOLIC PANEL, PLASMA Routine [...] (AEROBIC/ANAEROBIC SET) Routine 10/01/2024 12:40 AM EDT VITAMIN B12, SERUM Routine 09/30/2024 10 :22 PM EDT ACUTE HEPATITIS PANEL Routine 09/30/2024 10:22 PM EDT CORTISOL Routine 09/30/2024 10:22 PM EDT ALPHA FETOPROTEIN, SERUM Routine 09/30/2024 10:22 PM EDT FERRITIN, SERUM Routine 09/30/2024 10:22 PM EDT VITAMIN D, 1, 25-DIHYDROXY Routine 09/30/2024 10:22 PM EDT OXCARBAZEPINE METABOLITE, SERUM (SO) Routine 09/30/2024 10:22 PM EDT PHOSPHORUS, PLASMA Routine 09/30/2024 10 :22 PM EDT MAGNESIUM, PLASMA Routine 09/30/2024 10: 22 PM EDT COMPREHENSIVE METABOLIC PANEL, PLASMA Routine 09/30/2024 10:22 PM EDT CBC WITH AUTO DIFFERENTIAL Routine 09/30/2024 10:22 PM EDT CREATININE, RANDOM URINE Routine 09/30/2024 10:12 PM EDT OSMOLALITY, URINE Routine 09/30/2024 10: 12 PM EDT SODIUM, URINE, RANDOM Routine 09/30/2024 10:12 PM EDT NASOPHARYNGEAL RESPIRATORY PANEL Routine 09/30/2024 10:09 PM EDT SARS COV-2/COVID-19 BY PCR - RAPID Routine 09/30/2024 10:09 PM EDT US ABDOMEN DOPPLER LIMITED Routine 09/30/2024 9:44 PM EDT URINALYSIS MICROSCOPIC FOR UA REFLEX STAT 09/30/2024 6:44 PM EDT URINE GARCIA PANEL STAT 09/30/2024 6:44 PM EDT URINALYSIS WITH REFLEX MICROSCOPIC STAT 09/30/2024 6:44 PM EDT DRUG ABUSE SCREEN, URINE STAT 09/30/2024 6:44 PM EDT URINALYSIS WITH REFLEX MICROSCOPIC AND CULTURE STAT 09/30/2024 6:44 PM EDT TROPONIN T, HIGH SENSITIVITY, 2 HOUR, PLASMA Timed 09/30/2024 5:25 PM EDT AMMONIA, PLASMA STAT 09/30/2024 5:25 PM EDT POCT GLUCOSE METER UNSOLICITED RESULTS Routine 09/30/2024 5:16 PM EDT PREPARE RBC STAT 09/30/2024 4:[address] HEAD WO IV CONTRAST STAT 4:[address] ABDOMEN PELVIS W IV CONTRAST STAT 09/30/2024 4:06 PM EDT XR CHEST 1 VIEW STAT 09/30/2024 3:28 PM EDT POCT GLUCOSE METER UNSOLICITED RESULTS Routine 09/30/2024 3:16 PM EDT IRON & TOTAL IRON BINDING CAPACITY, PLASMA (INCLUDES TRANSFERRIN) Add-On 09/30/2024 2:51 PM EDT PHOSPHORUS, PLASMA Add-On 09/30/2024 2: 51 PM EDT OSMOLALITY, SERUM Add-On 09/30/2024 2:5 1 PM EDT PROTHROMBIN TIME(PT) / INR STAT 09/30/2024 2:51 PM EDT ED HIV 1/2 ANTIBODY/ANTIGEN SCREEN WITH REFLEX TO HIV I/II DIFFERENTIATION STAT 09/30/2024 2:51 PM EDT ED PROTOCOL HIV 1/2 ANTIBODY/ANTIGEN SCREEN W/REFLEX TO HIV 1/2 ANTIBODY DIFFERENTIATION STAT 09/30/2024 2:51 PM EDT FREE T4, PLASMA STAT 09/30/2024 2:51 PM EDT TSH STAT 09/30/2024 2:51 PM EDT TROPONIN T, HIGH SENSITIVITY, 0 HOUR, PLASMA, REFLEX TO 2 HOUR STAT 09/30/2024 2:51 PM EDT LIPASE, PLASMA STAT 09/30/2024 2:51 PM EDT MAGNESIUM, PLASMA STAT 09/30/2024 2:5 1 PM EDT COMPREHENSIVE METABOLIC PANEL, PLASMA STAT 09/30/2024 2:51 PM EDT HEPATITIS C ANTIBODY - ED W/REFLEX TO HCV QUANT PCR STAT 09/30/2024 2:50 PM EDT BLOOD GAS PANEL, VENOUS STAT 10/01/19 2:50 PM EDT TYPE AND SCREEN STAT 09/30/2024 2:50 PM EDT LACTATE, VENOUS STAT 09/30/2024 2:50 PM EDT CBC W/O DIFFERENTIAL STAT 09/30/2024 2:50 PM EDT ECG ADULT STAT 09/30/2024 2:41 PM EDT POCT GLUCOSE METER UNSOLICITED RESULTS Routine 09/30/2024 2:13 PM EDT HEMOGLOBIN A1C Add-On 06/27/2021 8:20 AM EST CYTO DATA CONVERSION Routine 12/11/2018 12:00 AM EDT from Last 3 Months or Most Recently Relevant to Health Maintenance Results * US Extremity Limited MSK or [...] on 10/18/2024 11:42 AM Momo Akhtar MD IMG US PROCEDURES Final Result * (ABNORMAL) CBC W/O Differential (10/17/2024 4:53 AM EDT) Only the most recent of3 resultswithin the time period is included. WBC Count 2.25(L) 3.70 - 10.30 10*3/uL LAB HEMATOLOGY METHOD 10/17/2024 5:[address] [facility] RBC Count 3.31(L) 3.90 - 5.20 10*6/uL LAB HEMATOLOGY METHOD 10/17/2024 5:[address] [facility] HGB 11.2 11.2 - 15.7 g/dL LAB HEMATOLOGY METHOD 10/17/2024 5:[address] [facility] HCT 33.4(L) 34.0 - 45.0 % LAB HEMATOLOGY METHOD 10/17/2024 5:[address] [facility] Platelet Count 77(L) 155 - 369 10*3/uL LAB HEMATOLOGY METHOD 10/17/2024 5:[address] [facility] MCV 101(H) 79 - 98 fL LAB HEMATOLOGY METHOD 10/17/2024 5:[address] [facility] MCH 33.8(H) 26.0 - 32.0 pg LAB HEMATOLOGY METHOD 10/17/2024 5:[address] [facility] MCHC 33.5 30.7 - 35.5 g/dL LAB HEMATOLOGY METHOD 10/17/2024 5:[address] [facility] RDW 14.0 11.5 - 14.5 % LAB HEMATOLOGY METHOD 10/17/2024 5:[address] [facility] MPV 8.8 8.8 - 12.5 fL LAB HEMATOLOGY METHOD 10/17/2024 5:[address] [facility] nRBC 0.0 <=0.0 per 100 WBCs LAB HEMATOLOGY METHOD 10/17/2024 5:[address] [facility] Blood Venous blood specimen / Unknown Venipuncture / Unknown 10/17/2024 4:53 AM EDT 10/17/2024 5:08 AM EDT us Momo Akhtar MD LAB BLOOD ORDERABLES Final Resu lt [facility] [address] [place] [address] * (ABNORMAL) Comprehensive Metabolic Panel, Plasma (10/17/2024 4:53 AM EDT) Only the most recent of8 resultswithin the time period is included. Glucose, Plasma 79 74 - 99 mg/dL 10/17/2024 5:[address] [facility] BUN, Plasma 7 7 - 21 mg/dL 10/17/2024 5:[address] [facility] Creatinine, Plasma 0.96 0.60 - 1.10 mg/dL 10/17/2024 5:[address] [facility] BUN/Creatinine Ratio 7 10/17/2024 5:[address] [facility] Sodium, Plasma 138 136 - 145 mmol/L 10/17/2024 5:[address] [facility] Potassium, Plasma 4.1 3.6 - 4.9 mmol/L 10/17/2024 5:[address] [facility] Chloride, Plasma 106 97 - 107 mmol/L 10/17/2024 5:[address] [facility] CO2, Plasma 26 22 - 29 mmol/L 10/17/2024 5:[address] [facility] Anion Gap 6 6 - 16 mmol/L 10/17/2024 5:[address] [facility] Total Calcium, Plasma 9.4 8.9 - 10.2 mg/dL 10/17/2024 5:[address] [facility] Total Protein 6.0(L) 6.3 - 7.9 g/dL 10/17/2024 5:[address] [facility] Albumin, Plasma 3.0(L) 3.5 - 5.2 g/dL 10/17/2024 5:[address] [facility] AST, Plasma 56(H) 10 - 35 U/L 10/17/2024 5:[address] [facility] Comment:Hemolyzed, result ma y be falsely increased. ALT, Plasma 29 10 - 35 U/L 10/17/2024 5:[address] [facility] Alkaline Phosphatase, Plasma 73 35 - 104 U/L 10/17/2024 5:[address] [facility] Total Bilirubin, Plasma 0.7 0.2 - 1.1 mg/dL 10/17/2024 5:[address] [facility] eGFRcr 70.9 mL/min/1.7 3m*2 10/17/2024 5:[address] [facility] Comment:Reported eGFRcr in m L/min/1.73m2 is based the CKD-EPI 2020 equation that does not use a race coefficient. Blood Venous blood specimen / Unknown Venipuncture / Unknown 10/17/2024 4:53 AM EDT 10/17/2024 5:08 AM EDT us Momo Akhtar MD LAB BLOOD ORDERABLES Final Resu lt [facility] [address] [place] [address] * US Head Neck Soft Tissue (10/11/2024 [...] 10/11/2024 11:11 AM us Evette Goodrich MD IMG US PROCEDURES Final Result * POCT glucose meter (10/05/2024 3:05 AM EDT) Only the most recent of18 resultswithin the time period is included. POCT Glucose 92 74 - 99 mg/dL [...] for testing. Comment 10/05/2024 3:13 AM EDT [facility] Sales And Marketing Representative ID Parul Bustamante 10/05/2024 3:13 AM EDT [facility] Device ID [id number] 10/05/2024 3:13 AM EDT [facility] Specimen Type POC Capillary 10/05/2024 3:13 AM EDT [facility] Blood Capillary blood specimen / Unknown 10/05/2024 3:05 AM EDT 10/05/2024 3:13 AM EDT us Momo Akhtar MD LAB POINT OF CARE TE ST DOCKED DEVICE UNSOLICITED RESULTS Final Result [facility] [address] [place] [id number] * (ABNORMAL) CBC and Differential (10/04/2024 5:20 AM EDT) Only the most recent of4 resultswithin the time period is included. WBC Count 3.75 3.70 - 10.30 10*3/uL LAB HEMATOLOGY METHOD 10/04/2024 5:[address] [facility] RBC Count 3.52(L) 3.90 - 5.20 10*6/uL LAB HEMATOLOGY METHOD 10/04/2024 5:[address] [facility] HGB 11.8 11.2 - 15.7 g/dL LAB HEMATOLOGY METHOD 10/04/2024 5:[address] [facility] HCT 34.7 34.0 - 45.0 % LAB HEMATOLOGY METHOD 10/04/2024 5:[address] [facility] Platelet Count 82(L) 155 - 369 10*3/uL LAB HEMATOLOGY METHOD 10/04/2024 5:[address] [facility] MCV 99(H) 79 - 98 fL LAB HEMATOLOGY METHOD 10/04/2024 5:[address] [facility] MCH 33.5(H) 26.0 - 32.0 pg LAB HEMATOLOGY METHOD 10/04/2024 5:[address] [facility] MCHC 34.0 30.7 - 35.5 g/dL LAB HEMATOLOGY METHOD 10/04/2024 5:[address] [facility] RDW 14.1 11.5 - 14.5 % LAB HEMATOLOGY METHOD 10/04/2024 5:[address] [facility] MPV 8.5(L) 8.8 - 12.5 fL LAB HEMATOLOGY METHOD 10/04/2024 5:[address] [facility] nRBC 0.0 <=0.0 per 100 WBCs LAB HEMATOLOGY METHOD 10/04/2024 5:[address] [facility] Differential Type Automated LAB HEMATOLOGY METHOD 10/04/2024 5:[address] [facility] Neutrophils % 55 % LAB HEMATOLOGY METHOD 10/04/2024 5:[address] [facility] Lymphocytes % 25 % LAB HEMATOLOGY METHOD 10/04/2024 5:[address] [facility] Monocytes % 12 % LAB HEMATOLOGY METHOD 10/04/2024 5:[address] [facility] Eosinophils % 7 % LAB HEMATOLOGY METHOD 10/04/2024 5:[address] [facility] Basophils % 0 % LAB HEMATOLOGY METHOD 10/04/2024 5:[address] [facility] Immature Granulocytes % 1 % LAB HEMATOLOGY METHOD 10/04/2024 5:[address] [facility] Neutrophils Absolute 2.06 1.60 - 6.10 10*3/uL LAB HEMATOLOGY METHOD 10/04/2024 5:[address] [facility] Lymphocytes Absolute 0.95(L) 1.20 - 3.90 10*3/uL LAB HEMATOLOGY METHOD 10/04/2024 5:[address] [facility] Monocytes Absolute 0.44 0.30 - 0.90 10*3/uL LAB HEMATOLOGY METHOD 10/04/2024 5:[address] [facility] Eosinophils Absolute 0.26 0.00 - 0.50 10*3/uL LAB HEMATOLOGY METHOD 10/04/2024 5:[address] [facility] Basophils Absolute 0.01 0.00 - 0.10 10*3/uL LAB HEMATOLOGY METHOD 10/04/2024 5:[address] [facility] Immature Granulocytes Absolute 0.03 0.00 - 0.06 10*3/uL LAB HEMATOLOGY METHOD 10/04/2024 5:[address] [facility] Blood Venous blood specimen / Unknown Venipuncture / Unknown 10/04/2024 5:20 AM EDT 10/04/2024 5:29 AM EDT [facility] - 10/04/2024 5:39 AM EDT Therapeutic decision making should be based on absolute values, rather than percentages. Garcia Lutz MD LAB BLOOD ORDERABLES Final Resul t Performing Organization Address City/[facility]/ZIP Co de Phone Number [facility] [address] [place] [address] * Phosphorus, Plasma (10/04/2024 5:20 AM EDT) Only the most recent of4 resultswithin the time period is included. Phosphorus, Plasma 3.2 2.5 - 4.5 mg/dL 10/04/2024 6:[address] [facility] Blood Venous blood specimen / Unknown Venipuncture / Unknown 10/04/2024 5:20 AM EDT 10/04/2024 5:29 AM EDT Garcia Lutz MD LAB BLOOD ORDERABLES Final Resul t Performing Organization Address [facility] Co de Phone Number [facility] [address] [place] [address] * Magnesium, Plasma (10/04/2024 5:20 AM EDT) Only the most recent of4 resultswithin the time period is included. Magnesium, Plasma 2.1 1.9 - 2.4 mg/dL 10/04/2024 6:[address] [facility] Blood Venous blood specimen / Unknown Venipuncture / Unknown 10/04/2024 5:20 AM EDT 10/04/2024 5:29 AM EDT us Garcia Lutz MD LAB BLOOD ORDERABLES Final Resul t Performing Organization Address City/[facility]/ZIP Co de Phone Number [facility] [address] [place] [address] * (ABNORMAL) Blood gas panel, venous (10/04/2024 5:20 AM EDT) Only the most recent of2 resultswithin the time period is included. pH, Venous 7.40 7.32 - 7.43 LAB HEMATOLOGY METHOD 10/04/2024 5:[address] [facility] pCO2, Venous 45 37 - 52 mmHg LAB HEMATOLOGY METHOD 10/04/2024 5:[address] [facility] pO2, Venous 82(H) 25 - 40 mmHg LAB HEMATOLOGY METHOD 10/04/2024 5:[address] [facility] SO2, Measured, Venous 98(H) 65 - 80 % LAB HEMATOLOGY METHOD 10/04/2024 5:[address] [facility] Base Excess, Venous 2.6 -2.0 - 3.0 mmol/L LAB HEMATOLOGY METHOD 10/04/2024 5:[address] [facility] Bicarbonate, Calculated, Venous 28(H) 22 - 26 mmol/L LAB HEMATOLOGY METHOD 10/04/2024 5:[address] [facility] Hematocrit, Whole Blood 36.4 34.0 - 45.0 % LAB HEMATOLOGY METHOD 10/04/2024 5:[address] [facility] Sodium, Whole Blood 141 136 - 145 mmol/L LAB HEMATOLOGY METHOD 10/04/2024 5:[address] [facility] Potassium, Whole Blood 4.0 3.6 - 4.9 mmol/L LAB HEMATOLOGY METHOD 10/04/2024 5:[address] [facility] Chloride, Whole Blood 107 97 - 107 mmol/L LAB HEMATOLOGY METHOD 10/04/2024 5:[address] [facility] Glucose, Whole Blood 83 74 - 99 mg/dL LAB HEMATOLOGY METHOD 10/04/2024 5:[address] [facility] Lactate, Venous, Whole Blood 0.9 0.5 - 2.2 mmol/L LAB HEMATOLOGY METHOD 10/04/2024 5:[address] [facility] Ionized Calcium, Whole Blood 4.8 4.6 - 5.1 mg/dL LAB HEMATOLOGY METHOD 10/04/2024 5:[address] [facility] Blood Venous blood specimen / Unknown Venipuncture / Unknown 10/04/2024 5:20 AM EDT 10/04/2024 5:29 AM EDT us Garcia Lutz MD LAB BLOOD ORDERABLES Final Resul t [facility] [address] [place] [address] * CT Angio Neck (10/03/2024 1:15 AM [...] Total DLP (Dose-Length Product): 1530.27 mGy.cm (accession [id number]), 1530.27 mGy.cm (accession [id number]), 1530.27 mGy.cm (accession [id number]). Please note: The reported value represents the [...] no aneurysm of either internal carotid artery. [place] of [place] and Major Peripheral Branches: There [...] Total DLP (Dose-Length Product): 1530.27 mGy.cm (accession [id number]),1530.27 mGy.cm (accession [id number]), 1530.27 mGy.cm (accession [id number]).Please note: The reported value represents the total [...] no aneurysm of either internal carotid artery. [place] of [place] and Major Peripheral Branches: There [...] wo IV Contrast (10/03/2024 1:15 AM EDT) Only the most recent of2 resultswithin the time period is included. Anatomical Region Laterality Modality Head Computed Tomogra [...] Total DLP (Dose-Length Product): 1530.27 mGy.cm (accession [id number]), 1530.27 mGy.cm (accession [id number]), 1530.27 mGy.cm (accession [id number]). Please note: The reported value represents the [...] no aneurysm of either internal carotid artery. [place] and Major Peripheral Branches: There [...] Total DLP (Dose-Length Product): 1530.27 mGy.cm (accession [id number]),1530.27 mGy.cm (accession [id number]), 1530.27 mGy.cm (accession [id number]).Please note: The reported value represents the total [...] no aneurysm of either internal carotid artery. [place] and Major Peripheral Branches: There [...] 1:15 AM EDT) Anatomical Region Laterality Modality [place] Computed Tomogr aphy Impressions 10/03/2024 [...] Total DLP (Dose-Length Product): 1530.27 mGy.cm (accession [id number]), 1530.27 mGy.cm (accession [id number]), 1530.27 mGy.cm (accession [id number]). Please note: The reported value represents the [...] no aneurysm of either internal carotid artery. [place] and Major Peripheral Branches: There [...] Total DLP (Dose-Length Product): 1530.27 mGy.cm (accession [id number]),1530.27 mGy.cm (accession [id number]), 1530.27 mGy.cm (accession [id number]).Please note: The reported value represents the total [...] no aneurysm of either internal carotid artery. [place] and Major Peripheral Branches: There [...] * ECG Adult (10/03/2024 12:47 AM EDT) Only the most recent of2 resultswithin the time period is included. EKG DIAGNOSIS CLASS Normal MUSE ECG Ventricular Rate 76 BPM MUSE ECG Atrial Rate 76 BPM MUSE ECG [place] Interval 168 ms MUSE ECG QRSD Interval 100 ms MUSE ECG QT Interval 412 ms MUSE ECG QTC Interval 463 ms MUSE ECG P [place] 46 degrees MUSE ECG R [place] 9 degrees MUSE ECG T Wave [place] 29 degrees MUSE ECG Diagnosis Normal sinus rhythm MUSE ECG Diagnosis Normal ECG MUSE ECG Diagnosis MUSE ECG Diagnosis Confirmed by Gianfranco Dunn ([id number]) on 10/03/2024 8:40:14 AM MUSE ECG 10/03/2024 [...] adding lactulose . -get EKG -transfer to [facility] us Garcia Lutz MD IN CLINIC/BEDSIDE ORDERABLES Fin al Result * (ABNORMAL) POCT ISTAT BLOOD GAS VENOUS (10/03/2024 12:44 AM EDT) POCT pH Venous 7.44(H) 7.32 - 7.43 10/03/2024 12:49 AM EDT [facility] POCT PCO2 Venous 42 37 - 52 mm Hg 10/03/2024 12:49 AM EDT [facility] POCT PO2 Venous 58(H) 25 - 40 mm Hg 10/03/2024 12:49 AM EDT [facility] POCT HCO3 Calculated Venous 28.1(H) 22 - 26 mmol/L 10/03/2024 12:49 AM EDT [facility] POC BE Calculated, Venous 3.0 -2 - 3 mmol/L 10/03/2024 12:49 AM EDT [facility] POCT SO2 Calculated, Venous 90.0(H) 65 - 80 % 10/03/2024 12:49 AM EDT [facility] POCT Lactate Venous 0.7 0.5 - 2.2 mmol/L 10/03/2024 12:49 AM EDT [facility] Sales And Marketing Representative ID TraugKhang jorge 10/03/2024 12:49 AM EDT [facility] Device ID [id number] 10/03/2024 12:49 AM EDT [facility] Blood, Venous Venous blood specimen / Unknown 10/03/2024 12:44 AM EDT 10/03/2024 12:49 AM EDT us Momo Akhtar MD LAB POINT OF CARE TE ST DOCKED DEVICE UNSOLICITED RESULTS Final Result [facility] [address] [place] [address] * Light Blue Top (10/03/2024 12:42 AM EDT) Extra Hold for add-ons 10/03/2024 3:[address] [facility] Comment:Auto resulted. Blood Venous blood specimen / Unknown 10/03/2024 12:42 AM EDT 10/03/2024 12:46 AM EDT Momo Akhtar MD LAB BLOOD ORDERABLES Final Resu lt Performing Organization Address [facility] [place] [address] * Multi Drug Resistance Test (10/01/2024 11:36 AM EDT) Culture No growth at day 1 10/02/2024 1:[address] [facility] Swab (Nares and Dorys Rectal) Non-blood Collection / Unknown 10/01/2024 11:36 AM EDT 10/01/2024 11:[address] [facility] - 10/02/2024 1:51 PM EDT This test was developed and its performance characteristics determined by the [facility]. Although the media is FDA-approved, it is not FDA-approved for all specimen types submitted. The FDA has determined that such clearance or approval is not necessary. This test is used for surveillance purposes. It should not be regarded as investigational or for research. The [facility] is certified under the Clinical Laboratory Improvement Amendments of 1988 (CLIA-88) as qualified to perform high complexity clinical laboratory testing. Momo Akhtar MD LAB MICROBIOLOGY - GENERAL ORDE RABLES Final Result Performing Organization Address [facility] [place] [address] * Folate (10/01/2024 5:53 AM EDT) Folate, Serum 9.7 >4.6 ng/mL 10/01/2024 6:[address] [facility] Blood Venous blood specimen / Unknown Venipuncture / Unknown 10/01/2024 5:53 AM EDT 10/01/2024 6:06 AM EDT Leon Ornelas FLUID JET CUTTER OPERATOR, DNP LAB BLOOD ORDERABLES Fi nal Result Performing Organization Address City/[facility] [place] [address] * Zinc (10/01/2024 4:40 AM EDT) Zinc, Serum/Plasma 62.6 60.0 - 120.0 ug/dL 10/03/2024 5:03 AM EDT [facility] ([facility]) Blood Venous blood specimen / Unknown Venipuncture / Unknown 10/01/2024 4:40 AM EDT 10/01/2024 5:01 AM EDT Narrative [facility] ([place]) - 10/03/2024 5:03 AM EDT [...] developed and its performance characteristics determined by [facility]. It has not been cleared or approved by the US Food and Drug Administration. This test was performed in a CLIA certified laboratory and is intended for clinical purposes. Performed By: [facility] [address] [id number] Fire Investigator: Darryl Corado MD, PhD CLIA Number: [id number] Leon Ornelas APRN, DNP LAB BLOOD ORDERABLES Fi nal Result [facility] [address] [place] [address] * Alcohol Urine (10/01/2024 2:50 AM EDT) Alcohol Urine Negative Negative 10/01/2024 5:[address] [facility] Urine Urine specimen obtained by clean catch procedure / Unknown Non-blood Collection / Unknown 10/01/2024 2:50 AM EDT 10/01/2024 3:[address] [facility] - 10/01/2024 5:40 AM EDT The correlation between urine and serum ethanol concentration is highly variable. Test performed by Gas Chromatography at the [facility]. This test was developed and its performance characteristics determined by [facility]. It has not been cleared or approved by the FDA.The laboratory is regulated under CLIA as qualified to perform high-complexity testing. This test is used for clinical purposes only. Leon Ornelas APRN, DNP LAB URINE ORDERABLES Fi nal Result Performing Organization Address [facility]/ZIP Co de Phone Number [facility] [address] [place] [address] * Blood Culture (Aerobic/Anaerobet Set) (10/01/2024 12:40 AM EDT) Culture No growth at day 5 10/06/2024 2:02 AM EDT [facility] Blood Venous blood specimen / Unknown Venipuncture / Unknown 10/01/2024 12:40 AM EDT 10/01/2024 1:46 AM EDT [facility] - 10/06/2024 2:02 AM EDT Low blood volume submitted, results may be compromised Leon Ornelas APRN, DNP LAB MICROBIOLOGY - GENE RAL ORDERABLES Final Result Performing Organization Address [facility] [place] [address] * (ABNORMAL) Oxcarbazepine Metabolite, Serum (SO) (09/30/2024 10:22 PM EDT) OXCARB Metabolite 5.6(L) 10.0 - 35.0 ug/mL 10/03/2024 3:14 PM EDT BELINDA LEAVITT) Blood Venous blood specimen / Unknown Venipuncture / Unknown 09/30/2024 10:22 PM EDT 09/30/2024 10:43 PM EDT Eva LEAVITT) - 10/03/2024 3:14 PM EDT INTERPRETIVE INFORMATION: Oxcarbazepine Metabolite, Serum Therapeutic Range: 10.0 - 35.0 ug/mL Toxic Range: >=40.0 ug/mL This test measures monohydroxyoxcarbazepine (MHD). Adverse effects may include dizziness, fatigue, nausea, headache, somnolence, ataxia, and tremor. Performed By: [facility] [address] [place] [id number] Fire Investigator: Darryl Corado MD, PhD CLIA Number: [id number] Leon Ornelas APRN, DNP LAB REF LAB BLOOD AND F LUID ORD Final Result Performing Organization Address City/[facility]/ZIP Co de Phone Number [facility] ([facility]) [address] [place] [address] * Alpha Fetoprotein, Serum (09/30/2024 10:22 PM EDT) Pathologist [facility] Alpha Fetoprotein, Serum <2.3 <10.0 ng/mL 09/30/2024 11:[address] [facility] Blood Venous blood specimen / Unknown Venipuncture / Unknown 09/30/2024 10:22 PM EDT 09/30/2024 10:[address] [facility] - 09/30/2024 11:58 PM EDT Performed by Bruce electrochemiluminescent immunoassay which is traceable to the 1st AFP IRP WHO Reference standard 72/255. Results obtained with different test methods or kits cannot be used interchangeably. Leon Ornelas APRN, DNP LAB BLOOD ORDERABLES Fi nal Result [facility] [address] [place] [address] * Hepatitis panel, acute (09/30/2024 10:22 PM EDT) Hepatitis B Surf Antigen Negative Negative 10/01/2024 12:[address] [facility] Hepatitis A Antibody IgM Negative Negative 10/01/2024 12:[address] [facility] Hepatitis B Core Antibody IgM Negative Negative 10/01/2024 12:[address] [facility] Blood Venous blood specimen / Unknown Venipuncture / Unknown 09/30/2024 10:22 PM EDT 09/30/2024 10:[address] [facility] - 10/01/2024 12:57 AM EDT Hepatitis C Antibody previously reported on patient within 24hrs and will not be repeated on this panel. See previous results below: Hepatitis C Antibody Date Value Ref Range Status 09/30/2024 Negative Negative Final Leon Dasha Ceci [place], DNP LAB BLOOD ORDERABLES Fi nal Result Performing Organization Address City/[facility]/ZIP Co de Phone Number [facility] [address] [place] [address] * Vitamin D 1,25 dihydroxy (09/30/2024 10:22 PM EDT) VITAMIN D, 1, 25-DIHYDROXY 41.0 19.9 - 79.3 pg/mL 10/01/2024 1:[address] [facility] Blood Venous blood specimen / Unknown Venipuncture / Unknown 09/30/2024 10:22 PM EDT 09/30/2024 10:35 PM EDT Leon Dasha Ceci [place], OLVIN LAB BLOOD ORDERABLES Fi nal Result Performing Organization Address City/[facility]/ZIP Co de Phone Number [facility] [address] [place] [address] * Ferritin (09/30/2024 10:22 PM EDT) Ferritin, Serum 81 13 - 150 ng/mL 09/30/2024 11:[address] [facility] Blood Venous blood specimen / Unknown Venipuncture / Unknown 09/30/2024 10:22 PM EDT 09/30/2024 10:34 PM EDT Leon Ornelas APRN, DNP LAB BLOOD ORDERABLES Fi nal Result Performing Organization Address City/[facility]/ZIP Co de Phone Number [facility] [address] [place] [address] * Vitamin B12 (09/30/2024 10:22 PM EDT) Vitamin B12, Serum 607 210 - 1,033 pg/mL 09/30/2024 11:19 PM EDT [facility] Blood Venous blood specimen / Unknown Venipuncture / Unknown 09/30/2024 10:22 PM EDT 09/30/2024 10:34 PM EDT Leon Ornelas APRN, DNP LAB BLOOD ORDERABLES Fi nal Result Performing Organization Address City/[facility]/ZIP Co de Phone Number [facility] [address] [place] [address] * Cortisol (09/30/2024 10:22 PM EDT) Pathologist [facility] Cortisol 3.70 Before 10am: 3.7 - 19.4. After 5pm: 2.9 - 17.3 ug/dL 09/30/2024 11:[address] [facility] Comment:Testing performed on [employer], standardized against [employer] Reference Standard concentration values assigned by LC-MS/MS and verified by BCR 192 and BCR 193 certified reference materials. Blood Venous blood specimen / Unknown Venipuncture / Unknown 09/30/2024 10:22 PM EDT 09/30/2024 10:35 PM EDT Leon Ornelas APRN, OLVIN LAB REF LAB BLOOD AND F LUID ORD Final Result [facility] [address] [place] [address] * Sodium, urine, random (09/30/2024 10:12 PM EDT) Sodium, Urine 67 mmol/L 09/30/2024 11:[address] [facility] Urine Urine specimen obtained by clean catch procedure / Unknown Non-blood Collection / Unknown 09/30/2024 10:12 PM EDT 09/30/2024 10:35 PM EDT Leon Blackburna FLUID JET CUTTER OPERATOR, DNP LAB URINE ORDERABLES Fi nal Result [facility] [address] [place] [address] * Osmolality, urine (09/30/2024 10:12 PM EDT) Osmolality, Urine 357 50 - 1,200 mOsm/kg 09/30/2024 11:[address] [facility] Urine Urine specimen obtained by clean catch procedure / Unknown Non-blood Collection / Unknown 09/30/2024 10:12 PM EDT 09/30/2024 10:35 PM EDT Leon Ricoroland T[place], DNP LAB URINE ORDERABLES Fi nal Result Performing Organization Address City/[facility]/ZIP Co de Phone Number [facility] [address] [place] [address] * Creatinine, urine, random (09/30/2024 10:12 PM EDT) Creatinine, Urine 71 mg/dL 09/30/2024 11:[address] [facility] Urine Urine specimen obtained by clean catch procedure / Unknown Non-blood Collection / Unknown 09/30/2024 10:12 PM EDT 09/30/2024 10:35 PM EDT Leon Ricoroland T[place]O, DNP LAB URINE ORDERABLES Fi nal Result Performing Organization Address City/[facility]/ZIP Co de Phone Number [facility] [address] [place] [address] * SARS CoV-2/COVID-19 by PCR - Rapid (09/30/2024 10:09 PM EDT) SARS CoV-2/COVID-1 9 RNA PCR Result Not Detected Not Detected 09/30/2024 11:[address] [facility] Swab Nasopharyngeal structure / Unknown Non-blood Collection / Unknown 09/30/2024 10:09 PM EDT 09/30/2024 10:[address] [facility] - 09/30/2024 11:37 PM [...] signs and symptoms consistent with COVID-19. Leon Ornelas APRN, DNP LAB MICROBIOLOGY - [facility] ORDERABLES Final Result [facility] [address] [place] [address] * Nasopharyngeal Respiratory Panel (09/30/2024 10:09 PM EDT) Nasopharyngeal Respiratory PCR Interpretation Not Detected for all analytes Not Detected for all analytes 10/01/2024 12:[address] [facility] Swab Nasopharyngeal structure / Unknown Non-blood Collection / Unknown 09/30/2024 10:09 PM EDT 09/30/2024 10:41 PM EDT Narrative [facility] - 10/01/2024 12:42 AM EDT This [...] Respiratory PCR Panel is performed using the [employer] instrument. This test is FDA approved for use with Nasopharyngeal swabs only. This test is used for clinical purposes. It should not be regarded as investigational or for research. The [facility] is certified under the Clinical Laboratory Improvement Amendments of 1988 (CLIA-88) as qualified to perform high complexity clinical laboratory testing. Leon Ornelas OLVIN TOLEDO LAB MICROBIOLOGY - GENE RAL ORDERABLES Final Result [facility] [address] [place] [address] * US Abdomen Doppler Limited (09/30/2024 9:44 [...] flow. Procedure Note Cherelle James MD - 09/30/2024 CLINICAL INDICATION: Hepatic [...] James MD on 09/30/2024 9:48 PM Leon Ornelas FLUID JET CUTTER OPERATOR, DNP IMG US PROCEDURES Final Result * Urine Garcia Panel (09/30/2024 6:44 PM EDT) Extra Reflex urine culture not indicated 09/30/2024 9:[address] [facility] Urine Urine specimen obtained by clean catch procedure / Unknown Non-blood Collection / Unknown 09/30/2024 6:44 PM EDT 09/30/2024 7:09 PM EDT Zack Teran MD LAB URINE ORDERABLES Final Re sult Performing Organization Address [facility]/ZIP Co de Phone Number [facility] [address] [place] [address] * Urinalysis Microscopic Examination (09/30/2024 6:44 PM EDT) Urine Urine specimen obtained by clean catch procedure / Unknown Non-blood Collection / Unknown 09/30/2024 6:44 PM EDT 09/30/2024 6:56 PM EDT Zack Teran MD LAB URINE ORDERABLES Final Re sult Performing Organization Address [facility]/ZIP Co de Phone Number [facility] [address] [place] [address] * Drug abuse screen (09/30/2024 6:44 PM EDT) Amphetamine Screen Urine Negative Cutoff: 500 ng/mL 09/30/2024 7:[address] [facility] Benzodiazepines Screen Urine Negative Cutoff: 200 ng/mL 09/30/2024 7:[address] [facility] Cannabinoid Screen Urine Negative Cutoff: 50 ng/mL 09/30/2024 7:[address] [facility] Cocaine Screen Urine Negative Cutoff: 300 ng/mL 09/30/2024 7:[address] [facility] Barbiturate Screen Urine Negative Cutoff: 200 ng/mL 09/30/2024 7:[address] [facility] Opiate Screen Urine Negative Cutoff: 300 ng/mL 09/30/2024 7:[address] [facility] Methadone Screen Urine Negative Cutoff: 300 ng/mL 09/30/2024 7:[address] [facility] Buprenorphine Screen Urine Negative Cutoff: 10 ng/mL 09/30/2024 7:[address] [facility] Fentanyl Screen Urine Negative Cutoff: 1 ng/mL 09/30/2024 7:[address] [facility] Oxycodone Screen Urine Negative Cutoff: 100 ng/mL 09/30/2024 7:[address] [facility] Urine Urine specimen obtained by clean catch procedure / Unknown Non-blood Collection / Unknown 09/30/2024 6:44 PM EDT 09/30/2024 6:56 PM EDT us Zack Teran MD LAB URINE ORDERABLES Final Re sult [facility] [address] [place] [address] * (ABNORMAL) Urinalysis with reflex microscopic (Culture NOT Included) (09/30/2024 6:44 PM EDT) Color, Urine Yellow LAB URINALYSIS - AUTOMATED METHOD 09/30/2024 7:[address] [facility] Clarity, Urine Clear LAB URINALYSIS - AUTOMATED METHOD 09/30/2024 7:[address] [facility] Spec [place], Urine >1.030(H) 1.005 - 1.030 LAB URINALYSIS - AUTOMATED METHOD 09/30/2024 7:[address] [facility] pH, Urine 7.0 5.0 - 8.0 LAB URINALYSIS - AUTOMATED METHOD 09/30/2024 7:[address] [facility] Protein, Urine Negative Negative mg/dL LAB URINALYSIS - AUTOMATED METHOD 09/30/2024 7:[address] [facility] Glucose, Urine Negative Negative mg/dL LAB URINALYSIS - AUTOMATED METHOD 09/30/2024 7:[address] [facility] Ketones, Urine Negative Negative mg/dL LAB URINALYSIS - AUTOMATED METHOD 09/30/2024 7:[address] [facility] Blood, Urine Small(A) Negative LAB URINALYSIS - AUTOMATED METHOD 09/30/2024 7:[address] [facility] Bilirubin, Urine Negative Negative LAB URINALYSIS - AUTOMATED METHOD 09/30/2024 7:[address] [facility] Urobilinogen, Urine 1.0 0.2 to 1.0 mg/dL LAB URINALYSIS - AUTOMATED METHOD 09/30/2024 7:[address] [facility] Leukocytes, Urine Negative Negative LAB URINALYSIS - AUTOMATED METHOD 09/30/2024 7:[address] [facility] Nitrite, Urine Negative Negative LAB URINALYSIS - AUTOMATED METHOD 09/30/2024 7:[address] [facility] RBC, Urine 4 - 10(A) 0 to 3 /HPF LAB URINALYSIS - AUTOMATED METHOD 09/30/2024 7:[address] [facility] Comment:This result was prev iously suppressed from the chart. WBC, Urine 0 - 5 0 to 5 /HPF LAB URINALYSIS - AUTOMATED METHOD 09/30/2024 7:[address] [facility] Comment:This result was prev iously suppressed from the chart. Squamous Epithelial Cells 0 - 2 0 to 5 /HPF LAB URINALYSIS - AUTOMATED METHOD 09/30/2024 7:[address] [facility] Comment:This result was prev iously suppressed from the chart. Hyaline Casts 0 - 2 0 to 5 /LPF LAB URINALYSIS - AUTOMATED METHOD 09/30/2024 7:[address] [facility] Comment:This result was prev iously suppressed from the chart. Bacteria, Urine Negative Negative LAB URINALYSIS - AUTOMATED METHOD 09/30/2024 7:[address] [facility] Comment:This result was prev iously suppressed from the chart. Urine Urine specimen obtained by clean catch procedure / Unknown Non-blood Collection / Unknown 09/30/2024 6:44 PM EDT 09/30/2024 6:56 PM EDT us Zack Teran MD LAB URINE ORDERABLES Final Re sult Performing Organization Address [facility] [place] [address] * Troponin T, High Sensitivity, 2 Hour, Plasma (09/30/2024 5:25 PM EDT) Troponin T, High Sensitivity, 2 Hour 11 <14 ng/L 09/30/2024 6:01 PM EDT [facility] Blood Venous blood specimen / Unknown Venipuncture / Unknown 09/30/2024 5:25 PM EDT 09/30/2024 5:34 PM EDT us Zack Teran MD LAB BLOOD ORDERABLES Final Re sult Performing Organization Address [facility] Co de Phone Number [facility] [address] [place] [address] * (ABNORMAL) Ammonia (09/30/2024 5:25 PM EDT) Ammonia 149(H) 11 - 51 umol/L 09/30/2024 6:[address] [facility] Comment:Improper specimen joe ndling may falsely increase results. Blood Venous blood specimen / Unknown Venipuncture / Unknown 09/30/2024 5:25 PM EDT 09/30/2024 5:35 PM EDT Zack Teran MD LAB BLOOD ORDERABLES Final Re sult Performing Organization Address [facility] de Phone Number [facility] [address] [place] [address] * CT Abdomen Pelvis w IV Contrast [...] Arun Red MD on 09/30/2024 4:31 PM Zack Teran MD IMG CT PROCEDURES Final [...] Arun Red MD on 09/30/2024 3:35 PM us Zack Teran MD IMG XR PROCEDURES Final Resul t * ED HIV 1/2 Antibody/Antigen Screen w/Reflex to HIV 1/2 Differentiation (09/30/2024 2:51 PM EDT) HIV 1 & 2 Antibody/Antigen Screen Non Reactive Non Reactive 09/30/2024 3:[address] [facility] Comment:Screening for HIV 1 & 2 antibodies, and P24 antigen is NONREACTIVE. No confirmatory testing is required. Blood Venous blood specimen / Unknown Venipuncture / Unknown 09/30/2024 2:51 PM EDT 09/30/2024 3:04 PM EDT Result Da Teran MD LAB BLOOD ORDERABLES Final Re sult [facility] [address] [place] [address] * Troponin now and 120 min (09/30/2024 2:51 PM EDT) Troponin T, High Sensitivity, 0 Hour 12 <14 ng/L 09/30/2024 4:[address] [facility] Blood Venous blood specimen / Unknown Venipuncture / Unknown 09/30/2024 2:51 PM EDT 09/30/2024 2:56 PM EDT Result Da Teran MD LAB BLOOD ORDERABLES Final Re sult [facility] [address] [place] [address] * Iron & Total Iron Binding Capacity, Plasma (Includes Transferrin) (09/30/2024 2:51 PM EDT) [facility] Iron, Plasma 123 30 - 160 ug/dL 09/30/2024 11:[address] [facility] Transferrin, Plasma 239 200 - 360 mg/dL 09/30/2024 11:[address] [facility] Total Iron Binding Capacity, Plasma 299 240 - 450 ug/mL 09/30/2024 11:[address] [facility] Transferrin Saturation 41 14 - 50 % 09/30/2024 11:[address] [facility] Blood Venous blood specimen / Unknown Venipuncture / Unknown 09/30/2024 2:51 PM EDT 09/30/2024 2:56 PM EDT Leon Ornelas FLUID JET CUTTER OPERATOR, DNP LAB BLOOD ORDERABLES Fi nal Result Performing Organization Address City/[facility]/ZIP Co de Phone Number [facility] [address] [place] [address] * (ABNORMAL) PT-INR (09/30/2024 2:51 PM EDT) [facility] Prothrombin Time 14.8(H) 12.0 - 14.3 sec 09/30/2024 3:[address] [facility] INR 1.2(H) 0.9 - 1.1 09/30/2024 3:[address] [facility] Blood Venous blood specimen / Unknown Venipuncture / Unknown 09/30/2024 2:51 PM EDT 09/30/2024 2:[address] [facility] - 09/30/2024 3:11 PM EDT OPTIMAL INR RANGES FOR PATIENT ON ORAL ANTICOAGULANT THERAPY Prevention of venous thromboembolism INR 2.0 to 3.0 In patients with heart disease: Atrial fibrillation INR 2.0 to 3.0 Valvular heart disease INR 2.0 to 3.0 Tissue heart valves INR 2.0 to 3.0 Mechanical prosthetic valves INR 2.5 to 3.5 Prevention of recurrent NH INR 2.5 to 3.5 Zack Teran MD LAB BLOOD ORDERABLES Final Re sult Performing Organization Address [facility] [place] [address] * (ABNORMAL) Thyroid Stimulating Hormone, Plasma (09/30/2024 2:51 PM EDT) Thyroid Stimulating Hormone, Plasma 4.87(H) 0.40 - 4.20 uIU/mL 09/30/2024 4:[address] [facility] Blood Venous blood specimen / Unknown Venipuncture / Unknown 09/30/2024 2:51 PM EDT 09/30/2024 2:[address] [facility] - 09/30/2024 4:09 PM EDT Trimester Specific Ranges TSH ( IU/mL) 1st Trimester 0.1 - 3.0 2nd Trimester 0.19 - 4.06 3rd Trimester 0.3 - 3.7 Result [facility] Zack Teran MD LAB BLOOD ORDERABLES Final Re sult Performing Organization Address [facility] [place] [address] * Free T4, Plasma (09/30/2024 2:51 PM EDT) Free T4, Plasma 0.8 0.8 - 1.7 ng/dL 09/30/2024 4:[address] [facility] Blood Venous blood specimen / Unknown Venipuncture / Unknown 09/30/2024 2:51 PM EDT 09/30/2024 2:[address] [facility] - 09/30/2024 4:06 PM EDT Free T4 Trimester Specific Ranges 1st Trimester 0.9 - 1.50 ng/dL 2nd Trimester 0.7 - 1.40 ng/dL 3rd Trimester 0.7 - 1.24 ng/dL Result [facility] Zack Teran MD LAB BLOOD ORDERABLES Final Re sult Performing Organization Address City/[facility]/ZIP Co de Phone Number [facility] [address] [place] [address] * Osmolality (09/30/2024 2:51 PM EDT) Osmolality, Serum 291 275 - 295 mOsm/Kg 09/30/2024 10:[address] [facility] Blood Venous blood specimen / Unknown Venipuncture / Unknown 09/30/2024 2:51 PM EDT 09/30/2024 2:56 PM EDT Leon Ornelas FLUID JET CUTTER OPERATOR, DNP LAB BLOOD ORDERABLES Fi nal Result Performing Organization Address [facility] Co de Phone Number [facility] [address] [place] [address] * Lipase (09/30/2024 2:51 PM EDT) [facility] Lipase, Plasma 41 19 - 63 U/L 09/30/2024 4:[address] [facility] Blood Venous blood specimen / Unknown Venipuncture / Unknown 09/30/2024 2:51 PM EDT 09/30/2024 2:56 PM EDT Zack Teran MD LAB BLOOD ORDERABLES Final Re sult Performing Organization Address [facility]/ZIP Co de Phone Number [facility] [address] [place] [address] * Lactic acid, venous (09/30/2024 2:50 PM EDT) [facility] Lactate, Venous, Whole Blood 1.1 0.5 - 2.2 mmol/L LAB HEMATOLOGY METHOD 09/30/2024 3:[address] [facility] Blood Venous blood specimen / Unknown Venipuncture / Unknown 09/30/2024 2:50 PM EDT 09/30/2024 3:04 PM EDT Zack Teran MD LAB BLOOD ORDERABLES Final Re sult [facility] [address] [place] [address] * Hepatitis C Antibody - ED (09/30/2024 2:50 PM EDT) Hepatitis C Antibody Negative Negative 09/30/2024 3:[address] [facility] Blood Venous blood specimen / Unknown Venipuncture / Unknown 09/30/2024 2:50 PM EDT 09/30/2024 3:04 PM EDT Zack Teran MD LAB BLOOD ORDERABLES Final Re sult Performing Organization Address [facility]/[place] [address] * Type and screen (09/30/2024 2:50 PM [...] ORDERABLE S Final Result Performing Organization Address [facility]/ZIP Co de Phone Number BLOOD BANK [address] [place] [address], * Hemoglobin A1c (06/27/2021 8:20 AM EST) Hemoglobin A1c 4.8 <5.7 % 06/27/2021 7:11 PM EST [facility] Blood Venous blood specimen / Unknown Venipuncture / Unknown 06/27/2021 8:20 AM EST 06/27/2021 8:30 AM EST Ryan Javed MD LAB BLOOD ORDERABLES Final Resul t [facility] [address] [place] [address] * Cytology (12/11/2018 12:00 AM EDT) 12/11/2018 12/12/2018 5:1 3 PM EDT Narrative [facility] - 12/16/2018 6:58 AM EDT [facility] MR #: [id number] [facility] [place], [place] [address] 1970 (Age: 48) FW Collect Date: 12/11/2018 00:00 Receipt Date: 12/12/2018 17:13 Page 1 DEPARTMENT OF PATHOLOGY AND LABORATORY MEDICINE CYTOPATHOLOGY REPORT Email: [email or web address] ATTENDING MD/Practitioner: Abraham Steiner MD Service: [facility] Location: [place] [place] Reported: 12/16/2018 06:58 Collected: 12/11/2018 00:00 INTERPRETATION A. THIN PREP (CERVICAL/VAGINAL): NEGATIVE FOR INTRAEPITHELIAL LESION OR MALIGNANCY. INFLAMMATORY CHANGE. SATISFACTORY FOR EVALUATION; ENDOCERVICAL/ TRANSFORMATION ZONE COMPONENT PRESENT. Slide examined with [employer] ThinPrep Imaging System but manually screened for technical reasons. Electronically Signed Out By JODEE Zamora(ASCP) JODEE Zamora(ASCP) Cervical cytology is a screening test primarily for squamous cancers and precursors and has associated false negative and positive results. New technologies such as liquid based sampling may decrease but will not eliminate all false negative results. Regular screening and follow-up of unexplained clinical signs and symptoms are recommended to minimize false negative results. Please see the ASCCP website (www.asccp.org) for followup recommendations. If HPV testing was requested, correlation with the results is suggested (please call Microbiology at [phone] for results). CLINICAL INFORMATION: Menstrual History: Cyclic Date of Last Menstrual Period: {Not Provided} Other Clinical Conditions: If ASCUS and > 24 years of age, HPV/DNA testing requested. SPECIMEN DESCRIPTION: A: THIN PREP (CERVICAL/VAGINAL) THIN PREP PROCESS CELLULAR ENHANCEMENT ICD: F: A; RT IMAGE [id number] SNOMED CODES: A; [id number] In cases where a pathologist has signed out the report, the service has been rendered in part by a resident. The signing pathologist has performed and is responsible for the reported pathologic evaluation. us Abigail Steiner MD LAB PATHOLOGY ORDERABLES Rosie l Result [facility] from Last 3 Months or Most Recently Relevant to Health Maintenance Insurance [facility]THEM [facility] MEDICAID ANTHEM Advance Directives * Full Code (Latest Code Status on File) Date Activated Date Inactivated Comments 09/30/2024 8:18 PM 10/21/2024 4:18 PM Question Answer Comments I have reviewed the capacity from the link above and, if needed, have updated to appropriate status: Yes * Full Code Date Activated Date Inactivated Comments 11/19/2020 8:15 PM 11/22/2020 6:33 PM Question Answer Comments Patient has decision-making capacity? Yes * Full Code Date Activated Date Inactivated Comments 10/02/2020 9:12 PM 10/05/2020 7:31 PM Question Answer Comments Patient has decision-making capacity? Yes Care Teams Yeast Washer Relationship Specialty Start Date End Date Celsa Pereira RN [address] [address] PCP - General 10/01/24
[2024-11-19] MEDS: KETOROLAC 30MG/ML VIAL 15 MG IV (08:58)
[2024-11-19] MEDS: BELLADONNA ALKALOIDS 60 ML ML PO (08:58)
[2024-11-19] MEDS: FAMOTIDINE 20MG/2ML VIAL 20 MG IV (08:58)
[2024-11-19] MEDS: ONDANSETRON 4MG/2ML VIAL 4 MG IV (08:58)
--- OUTSIDE RECORDS SUMMARY | 2024-11-19 08:58 | XMS_ITS | Encounter Summary ---
Author Organization Healthcare Address [address] [id number] Care Team Providers Care Real Estate Operations Manager Name Role Phone Celsa Pereira RN Primary Care Provider Luz dunbar Encounter Details Date Type Department Care Team (Latest Contact Info) Description 10/01/2024 Travel Social History Tobacco Use Types Packs/Day Years [...] any time in the past 12 m [facility], were you homeless or living in a longterm (including now)? No 10/01/2024 Utilities Answer Date Recorded In the past 12 months has th e [employer], gas, oil, or water company threatened to shut off services in your home? No 10/01/2024 Comments No Sex and Gender Information Value Date Recorded Sex Assigned at Not on file Legal Sex Female 6:18 PM EDT Gender Identity Not on file Sexual Orientation Not on file documented as of this encounter Functional Status * Calculated C-SSRS Risk Score (Lifetime/Recent) Answer Date of Assessment Author No Risk Indicated 10/01/2024 8:00 PM EDT Caren Maravilla RN * Question Answer Date of Assessment Author 1. Wish to be (Past 1 Month) No 025 8:00 PM EDT Caren Maravilla RN 2. Non-Specific Active Suici marco Thoughts (Past 1 Month) No 10/01/2024 8:00 PM EDT Lico Maravilla RN 6. Suicidal Behavior (Lifetime) No 8:00 PM EDT Caren Maravilla RN documented as of this encounter Plan of Treatment Not on file documented as of this encounter Visit Diagnoses Not on filedocumented in this encounter Additional Health Concerns Infection Onset Date Last Indicated Resolved Time Respiratory Rule-Out 09/30/2024 09/30/2024 025 12:42 AM EDT Assessment Noted Time A fall risk assessment has been complete d for the patient 11/19/2020 2:32 PM EDT A Body Mass Index follow-up plan has been documented for the patient 10/21/2024 1:55 PM EDT documented as of this encounter Care Teams Real Estate Operations Manager Relationship Specialty Start Date [place] [address] PCP - General 10/01/24 documented as of this encounter
--- OUTSIDE RECORDS SUMMARY | 2024-11-19 08:58 | XMS_ITS | Encounter Summary ---
Author Organization Healthcare Address [address] [id number] Care Team Providers Care Postal Sorting Officer Name Role Phone Celsa Pereira RN Primary Care Provider Luz dunbar Encounter Details Date Type Department Care Team (Latest Contact Info) Description 10/18/2024 Travel Social History Tobacco Use Types Packs/Day [...] any time in the past 12 m [facility], were you homeless or living in a nursing home (including now)? No 10/01/2024 Utilities Answer Date Recorded In the past 12 months has th e [employer], gas, oil, or water company threatened to [...] Date of Assessment Author No Risk Indicated 10/18/2024 7:30 AM EDT Josey Bar RN * Question Answer Date of Assessment Author 1. Wish to be (Past 1 Month) No 025 7:30 AM EDT Josey Bar RN 2. Non-Specific Active Suici marco Thoughts (Past 1 Month) No 10/18/2024 7:30 AM EDT Josey Bar RN 6. Suicidal Behavior (Lifetime) No 7:30 AM EDT Josey Bar RN documented as of this encounter Plan of Treatment Not on file documented as of this encounter Visit Diagnoses Not on filedocumented in this encounter Additional Health Concerns Assessment Noted Time A fall risk assessment has been complete d for the patient 11/19/2020 2:32 PM EDT A Body Mass Index follow-up plan has been documented for the patient 10/21/2024 1:55 PM EDT documented as of this encounter Care Teams Postal Sorting Officer Relationship Specialty Start Date End Date Celsa Pereira RN [place] [id number] PCP - General 10/01/24 documented as of this encounter
--- OUTSIDE RECORDS SUMMARY | 2024-11-19 08:58 | XMS_ITS | Encounter Summary ---
Author Organization Healthcare Address [address] [phone] Care Team Providers Care Chucking And Boring Machine Operator Name Role Phone Celsa Pereira RN Primary Care Provider Luz dunbar Encounter Details Date Type Department Care Team (Latest Contact Info) Description 10/03/2024 Travel Social History Tobacco Use Types Packs/Day [...] any time in the past 12 m [facility], were you homeless or living in a penitentiary (including now)? No 10/01/2024 Utilities Answer Date Recorded In the past 12 months has th e [employer], gas, oil, or water company threatened to [...] Date of Assessment Author No Risk Indicated 10/03/2024 8:00 PM EDT Jake Mckenna RN * Question Answer Date of Assessment Author 1. Wish to be (Past 1 Month) No 025 8:00 PM EDT Lola Mckenna RN 2. Non-Specific Active Suici marco Thoughts (Past 1 Month) No 10/03/2024 8:00 PM EDT Lola Mckenna RN 6. Suicidal Behavior (Lifetime) No 8:00 PM EDT Lola Mckenna RN documented as of this encounter Plan [...] documented as of this encounter Care Teams Chucking And Boring Machine Operator Relationship Specialty Start Date End Date Celsa Pereira RN [address] [address] PCP - General 10/01/24 documented as of this encounter
--- OUTSIDE RECORDS SUMMARY | 2024-11-19 08:58 | XMS_ITS | Clinical Summary ---
Author Organization [facility] Address [address] [place] [address] Phone Care Team Providers Care Art Consultant Name Role Phone Unavailable Primary Care Provider Unavailabl e Allergies No known active allergies Active Problems Patient Care Coordination No te Formatting of this note migh t be different from the original. Utilization audit completed by Melchor [place], Compliance Review on 11/21/2022. Problem Noted Date Diagnosed Date Dementia with behavioral disturbance 07/01/2024 MDD (major depressive disorder), recurrent episo de, mild 01/15/2024 Anxious personality disorder 10/22/2023 Mood disorder 06/06/2022 Hypothyroidism, unspecified 01/26/2022 FERNANDEZ (obstructive sleep apnea) 01/26/2022 Cirrhosis 01/26/2022 History of cardiac murmur 01/26/2022 Mood insomnia 01/26/2022 Resolved Problems Problem Noted Date Diagnosed Date Resolved Date History of recent fall 05/21/202310/21 Daytime sleepiness 05/21/2023 Socially inappropriate behavior 06/06/2022 10/22/2023 Agitation 06/06/2022 10/22/2023 Anxiety disorder, unspecified 01/26/2022 10/22/2023 Medication monitoring encounter 01/26/2022 10/22/2023 MCI (mild cognitive impairment) 01/26/2022 07/01/2024 Adjustment disorder with mix ed anxiety and [...] Date Last Done Comments Annual Wellness Exam 1974 DTaP/TDaP/Td (1 - Tdap) 1990 Hepatitis A Vaccine (1 of 2 - Risk 2-dose series) 1990 Hepatitis B Vaccine (1 of 3 - 19+ 3-dose series) 1990 Pneumococcal Vaccine 50+ (1 of 2 - PCV) 1990 Cervical Cancer Screening 1992 Pap Smear 1992 HPV/Pap Cotest 2001 Breast Cancer Screening 2011 Cologuard 2016 Colon Cancer Screening 2016 Colonoscopy 2016 FIT 2016 Sigmoidoscopy 2016 Virtual Colonography 2016 Zoster (1 of 2) 2021 COVID-19 Vaccine (1 - 2023-2 5 season) 2023 Influenza Vaccine (#1) 2024 Meningococcal B Vaccine Aged Out No l onger eligible based on patient's age to complete this topic Insurance ANTH PPO [facility] [place] MEDICAID CARVE OUT [facility] [employer]ITY [facility] [place] MDR
--- OUTSIDE RECORDS SUMMARY | 2024-11-19 08:58 | XMS_ITS | Encounter Summary ---
Author Organization Healthcare Address [address] [id number] Care Team Providers Care Atlassian Administrator Name Role Phone Pcp, No Primary Care Provider Unavailabl e Encounter Details Date Type Department Care Team (Latest Contact Info) Description 09/30/2024 Travel Social History Tobacco Use Types Packs/Day [...] in the past 12 m [facility], were you homeless or living in a long term (including now)? No 10/01/2024 Utilities Answer Date Recorded In the past 12 months has e [employer], gas, oil, or water company threatened to shut off services in your home? No 10/01/2024 Comments No Sex and Gender Information Value Date Recorded Sex Assigned at Not on file Legal Sex Female 6:18 PM EDT Gender Identity Not on file Sexual Orientation Not on file documented as of this encounter Plan of [...] documented as of this encounter Care Teams Atlassian Administrator Relationship Specialty Start Date End Date Pcp, No [address] [place] [address] PCP - General Family Medicine 09/30/24 09/30/24 documented as of this encounter
--- OUTSIDE RECORDS SUMMARY | 2024-11-19 08:58 | XMS_ITS | Encounter Summary ---
Author Organization Healthcare Address [address] [phone] Care Team Providers Care Solaris Administrator Name Role Phone Celsa Pereira RN Primary Care Provider Luz dunbar Encounter Details Date Type Department Care Team (Latest Contact Info) Description 10/11/2024 Travel Social History Tobacco Use Types Packs/Day [...] any time in the past 12 m [facility], were you homeless or living in a fpc (including now)? No 10/01/2024 Utilities Answer Date Recorded In the past 12 months has th e [employer], gas, oil, or water company threatened to [...] Date of Assessment Author No Risk Indicated 10/11/2024 8:45 PM EDT Shakir Guidry RN * Question Answer Date of Assessment Author 1. Wish to be (Past 1 Month) No 025 8:45 PM EDT Shakir Guidry RN 2. Non-Specific Active Suici marco Thoughts (Past 1 Month) No 10/11/2024 8:45 PM EDT Shakir Guidry RN 6. Suicidal Behavior (Lifetime) No 8:45 PM EDT Shakir Guidry RN documented as of this encounter Plan [...] documented as of this encounter Care Teams Solaris Administrator Relationship Specialty Start Date End Date Celsa Pereira RN [address] [place] [id number] PCP - General 10/01/24 documented as of this encounter
[2024-11-19] MEDS: IPRATROPIUM/ALBUTEROL 3 ML NEB IH (08:59)
[2024-11-19 09:08] LABS: Hematocrit 36.1 % (37.0-47.0); Hemoglobin 12.0 g/dL (12.2-16.2); Immature Granulocytes % 0.7 %; Mean Corpuscular HGB Conc 33.2 g/dL (31.8-35.4); Mean Corpuscular Hemoglobin 32.4 pg (27.0-31.2); Mean Corpuscular Volume 97.6 fl (81-99); Nucleated Red Blood Cells % 0 %; Platelet Count 85 K/mm3 (142-424); Red Blood Count 3.70 M/mm3 (4.20-5.40); Red Cell Distribution Width-SD 47.9 fL; White Blood Count 3.1 K/mm3 (4.8-10.8)
[2024-11-19 09:09] LABS: INR 1.07 (0.9-1.1); Prothrombin Time 11.8 seconds (10.1-12.5)
[2024-11-19 09:10] LABS: Alanine Aminotransferase 32 U/L (12-78); Albumin Level 3.6 g/dl (3.5-5.0); Albumin/Globulin Ratio 1.0 (1.1-1.8); Alkaline Phosphatase 101 U/L (38-126); Anion Gap 6.7 mEq/L (5-15); Aspartate Amino Transferase 66 U/L (14-36); Bilirubin,Total 1.6 mg/dl (0.2-1.3); Blood Urea Nitrogen 8 mg/dl (7-17); Calcium 9.1 mg/dl (8.4-10.2); Carbon Dioxide 27 mmol/L (22.0-30.0); Chloride 109 mmol/L (98-107); Creatinine Clearance Estimated 45 mL/min (50-200); Creatinine,Serum 1.10 mg/dl (0.52-1.04); Estimated Glomerular Filt Rate 52 ml/min (>60); GFR (African American) 63 ML/MIN (>60); Globulin 3.5 g/dL (1.3-3.2); Glucose 91 mg/dl (74-100); Lipase 429 U/L (23-300); Magnesium 2.0 mg/dl (1.6-2.3); Potassium 3.7 mmoL/L (3.5-5.1); Sodium 139 mmol/L (136-145); Total Protein,Serum 7.1 g/dl (6.3-8.2)
[2024-11-19 09:20] LABS: NT Pro Brain Natriuretic Pep. 133 pg/mL (0-125)
[2024-11-19 09:35] LABS: Troponin I < 0.01 ng/ml (0.00-0.034)
--- NOTE | 2024-11-19 09:50 | CT_ITS ---
FINAL REPORT TECHNIQUE: IV contrast enhanced exam This study was performed with techniques to keep radiation doses as low as reasonably achievable, (ALARA). Individualized dose reduction techniques using automated exposure control or adjustment of mA and/or kV according to the patient''s size were employed. CLINICAL HISTORY: epigastric and ruq abd ttp COMPARISON: 09/23/2024 FINDINGS: Abdomen: Lung bases are clear. There is a cirrhotic appearance of the liver with moderate enlargement. Varices are seen in the upper abdomen within perigastric and esophageal region, similar to prior exam. The spleen, pancreas and adrenal glands are unremarkable. Kidneys show no mass or obstruction. There are postoperative changes of abdominal wall hernia repair. No bowel obstruction or fluid collection is seen. Pelvis: The appendix is not visualized. There are varices deep to the left abdominal wall musculature penetrating through the muscular abdominal wall. Uterus and ovaries are unremarkable. Pelvic bowel loops are unremarkable. No fluid collection or adenopathy is seen. IMPRESSION: Cirrhosis with findings of portal hypertension. No appreciable ascites. No evidence of bowel obstruction. Reviewed, Interpreted and Dictated by Raina Tirado MD Transcribed by Filomena Sauceda Authenticated and . [facility]
--- NOTE | 2024-11-19 09:52 | CT_ITS ---
FINAL REPORT TECHNIQUE: Thin section axial CT with contrast with multiplanar reconstruction This study was performed with techniques to keep radiation doses as low as reasonably achievable, (ALARA). Individualized dose reduction techniques using automated exposure control or adjustment of mA and/or kV according to the patient''s size were employed. CLINICAL HISTORY: sob, cp, LE edema COMPARISON: 09/23/2024 CT chest FINDINGS: Pulmonary vessels enhance in normal fashion without evidence of embolism. Thoracic aorta shows no dissection or aneurysm. Respiratory motion artifact is noted. There is no obvious pneumonia or edema. There is no significant pleural effusion. There is no significant pericardial effusion. No mediastinal or hilar adenopathy is present. Periesophageal varices in the lower esophagus are attributed to cirrhosis. IMPRESSION: No evidence of pulmonary embolism No obvious acute lung disease. Reviewed, Interpreted and Dictated by Raina Tirado MD Transcribed by Alexus Estrada Authenticated and [facility]
[2024-11-19] MEDS: 0.9 % SODIUM CHLORIDE 50 ML VIAL IV (10:14)
[2024-11-19] MEDS: SODIUM CHLORIDE 0.9% 10ML SYR (RAD ONLY) 10 ML IV (10:14)
[2024-11-19] MEDS: IOPAMIDOL-370 (76%);100ML BOTTLE 85 ML IV (10:14)
--- NOTE | 2024-11-19 10:19 | PC.NURSE ---
pt back from rad
--- NOTE | 2024-11-19 10:55 | PC.NURSE ---
Per provider PO challenge started. Pt tolerateing well.
--- NOTE | 2024-11-19 11:57 | PC.NURSE ---
Spoke with Anushka at [facility]. She stated that the facility doesn't provide transportation. She reported that we need to try to reach out to the care van for transportation.
--- NOTE | 2024-11-19 12:22 | PC.NURSE ---
called dietary to request clear liquid lunch tray
--- NOTE | 2024-11-19 12:26 | PC.NURSE ---
I called pt's Jovel of the Court, Judi Carcamo, and s/w her regarding pt's discharge and [facility] refusing to take her back d/t clear liquid diet recommendations. I discussed pt' results and discharge instructions at length with Judi and she states the pt should be able to go back to [facility] and she will call the facility.
--- NOTE | 2024-11-19 12:36 | PC.NURSE ---
Charge Nurse ARCADIO Bañuelos spoke to Care Van r/t PT transfer back to [facility].,
--- OUTSIDE RECORDS SUMMARY | 2024-12-24 20:00 | XMS_ITS | Clinical Summary ---
Author Organization [facility] [place] ([facility] Address [address] [place] [address] Phone Care Team Providers Care Business Office Manager Name Role Phone MILLIE VELASCO APRN Unavailable Unavailable SHYAM OT, DEREK Unavailable Unavailable VALARIE PT, KAI Unavailable Unavailable Payers Payer Name Policy Type Policy Number Effective Date Expira tion Date ANTHEM BCBS FFS [id number] MODERATED OON PAYOR FFS [id number] Problems Condition Name Condition Details Condition Category [...] RESID DEFICITS Active 10-27 00:00: 00 OTHER [facility] (CURRENT) DRUG THERAPY Active 10-27 00:00: 00 [facility] (CURRENT) USE OF NON-STEROIDA L NON-INFLAM (NSAID) [...] 00:00:00 Unknown NEW ADMISSION DEREK HOWE [facility] [id number]
== END 2024-11-19 12:50 | disposition home or self-care (01) ==
PROVIDERS: Emergency Provider Emergency Medicine; PCP Nurse Practitioner Family
DX: K85.90 Acute pancreatitis without necrosis or infection, unspecified (principal); B34.9 Viral infection, unspecified; K74.60 Unspecified cirrhosis of liver
CPT/HCPCS: 71045; 71275; 74177; 80053; 83605; 83690; 83735; 83880; 84484; 85025; 85610; 87389; 87636; 93005; 96374; 96375; 99285; J1885; J2405; Q9967

== ENCOUNTER 2024-11-21 06:24 | Emergency (ER) | payer BC, OTHER, SELFPAY ==
--- OUTSIDE RECORDS SUMMARY | 2024-09-30 14:02 | XMS_ITS | Encounter Summary ---
Author Organization Healthcare Address [address] [place] [address] Care Team Providers Care Animal Chiropractor Name Role Phone Pcp, No Primary Care Provider Celsa Lopez RN Primary Care Provider Unava ilable Reason for Referral * Home Health (Routine) - Authorized Specialty Diagnoses / Procedures Referred By Reed t Referred To Contact Home Health Services / Case Management Diagnoses Acute encephalopathy Momo Akhtar MD [address] [place] [address] Phone: tel: fax: Referral ID Status Reason Start Date Expiration Date Visits Requested Visits Authorized [id number] Authorized Specialty Services Required 10/20/2024 04/21/2026 999 999 * Home Health (Routine) - Authorized Specialty Diagnoses / Procedures Referred By Reed bowen Referred To Contact Home Health Services / Case Management Diagnoses HE (hepatic encephalopathy) (CMS/HCC) Momo Akhtar MD [address] [place] [address] Phone: tel: fax: Referral ID Status Reason Start Date Expiration Date Visits Requested Visits Authorized [id number] Authorized Specialty Services Required 10/17/2024 04/18/2026 999 999 Reason for Visit * Reason Comments Altered Mental Status * Auth/Cert (Routine) Specialty Diagnoses / Procedures Referred By Reed bowen Referred To Contact Diagnoses Acute encephalopathy Rosetta Matthews MD [address] [place] [address] Phone: tel: fax: [facility] Emergency Department [address] [place] [address] Phone: tel: Referral ID Status Reason Start Date Expiration Date Visits Re quested Visits Authorized [id number] 1 1 Encounter Details Date Type Department Care Team (Latest Contact Info) Description 09/30/2024 2:02 PM EDT - 10/21/2024 2:13 PM EDT Hospital Encounter [facility] Inpatient [address] [place] [address] Edda Young, DO [address] [place] [address] Rosetta Matthews MD [address] [place] [address] Momo Akhtar MD [address] [place] [address] Evette Goodrich MD [address] [place] [address] Teetee Christianson MD [address] [place] [address] Acute encephalopathy (Primary Dx); HE (hepatic encephalopathy) (CMS/HCC); Thrombocytopenia (CMS/HCC); Dysarthria; Chest pain, unspecified type; Hepatic encephalopathy (CMS/HCC); Altered mental status, unspecified altered mental status type Discharge Disposition: Home-Health Care [facility] Social History Tobacco Use Types Packs/Day Years [...] any time in the past 12 m [facility], were you homeless or living in a [...] mouth every 6 hours as needed. Under [place] law, monthly prescriptions (30 days) can be [...] daily. cholecalciferol (True Vitamin D3) 1.25 MG (32836 UT) capsule Take 1 capsule by mouth [...] After use, clean tip and replace cap. levothyroxine (Synthroid, Levoxyl) 88 MCG tablet Take [...] tablet Take 1 tablet by mouth daily. lactulose (Chronulac) 10 GM/15ML solution Take 30 mL by mouth 3 times a day. Goal 3-4 bowel movements per day. 2700 mL 10/21/2024 5 thiamine (Vitamin B-1) 100 MG tablet Take 1 tablet by mouth daily. 30 tablet 10/21/2024 5 documented as of this encounter Miscellaneous Notes * Nursing Note - Jayant Albarado, RN - 10/21/2024 2:13 PM EDT Patient discharged from hospital back to facility. Report was called yesterday to Anushka at [facility]. Patient was given discharge summary and AVS with instructions to give to facility. Patient andtransporter stopped by pharmacy on the way to discharge lounge to picker medications. Patient belongings sent with her including her rollator walker. No PIV to remove. * Progress Notes - Vincent Gonzalez - 10/21/2024 1:29 PM EDT Case Management Discharge Note Andrew Oconnor 54 y.o. female CSN: [id number] Admission: 09/30/2024 2:02 PM Primary Problem: HE (hepatic encephalopathy) (CMS/HCC) Primary Cna Ltc: Primary Caregiver: Other (Comment) ([facility]) Assistance Available at Discharge: Current Outpatient/Agency/Support Group: adult day care, assisted living facility Availability of Care Givers (#Hours): 10-14 hours Family/Cna Ltc(s) Willingness Assessed to care for patient at home: Yes Family/Cna Ltc(s) Readiness Assessed to care for patient at home: Yes Housing Circumstances-Z Codes: Housing Circumstances (select all that apply): Low Income (101-300% Federal Poverty Guidlines) - Z596 Patient Referred to Financial or Community Resources: Financial Resources: Other (Comment) (Pt Guardian reported no Financial or Community Resources needs at this time,.) Discharge Facility/Level of Care Needs: Discharge Facility/Level of Care Needs: 5-Xkmp-Srvshu Care [facility] Patient's Choice of Community Agency(s): Patient's Choice of Community Agency(s): [facility] Patient/Family Anticipated Services at Transition: Patient/Family Anticipated Services at Transition: assistant case manager, community agency DME/Equipment Needed after Discharge: Equipment Currently Used at Home: none Equipment Needed After Discharge: walkerconcepción Readmission Within the Last 30 Days: Readmission Within the Last 30 Days: no previous admission in last 30 days Medicare Documentation: Medicare Second Notice?: Comment (ANTHEM/ANTHEM TRADITIONAL/[place] STATE/F[place] BCBS) Follow-up: DME-DURABLE MEDICAL EQUIPMENT [address], [address] [facility] [address] Follow up Provider for Rollator [place] - [facility]) [facility] [address] Follow up Provider for Home Health Discharge Transportation: Transportation Anticipated: medical transport Transportation Home at Discharge: Medical Transport Has discharge transport been arranged?: Yes What day is the transport expected?: 10/21/24 What time is the transport expected?: 1500 Follow Up Transport: Transportation Needed to Follow up Appoinments: Medical Transport Additional Comments: Patient is medically ready to transfer back to: [facility] ([facility]) Transportation scheduled with: [facility] on: 10/21/2024 at: 1500 RN report number: [phone] Fax DC summary to: [facility] recommend patient to bring copy of discharge summary and Medications with her on returning to the facility. SW arranged HH servies with [facility], SW followed up with State Guardian (Judi Owens) andJohn (Trace Clerk) for [facility] both agreeable with discharge plan with the patient returning to [facility] at this time. No further services planned. Vincent Gonzalez MSW, BUTT WELDER Senior Cardiac Monitor Technician/Case Management [facility] * Discharge Summary - Teetee Christianson MD - 10/21/2024 12:27 PM EDT Hospitalization Admit Date/Time: 09/30/2024 2:02 PM Admitting Attending: Rosetta Matthews Discharge Date: 10/21/24 Discharge Attending Physician: Teetee Christianson MD PCP name and Address: Celsa Pereira RN [place] [address] Referring provider name and address: No referring provider defined for this encounter. Chief Concern, Brief History of Present Illness, and Hospital Course Andrew Oconnor is a 50 y/o F with Hx of BOWDEN Cirrhosis with history of HE, mild cognitive delay, childhood ALL, meningioma, migraines, hypothyroidism, HTN, peptic ulcer disease, Depression/Anxiety, FERNANDEZ who presents to ED from [facility] with altered mental status found to have [...] mouth every 6 hours as needed. Under [place] law, monthly prescriptions (30 days)can be refilled [...] mouth daily. True Vitamin D3 1.25 MG (66389 UT) capsule Generic drug: cholecalciferol Take 1 [...] BM daily. Continues to await placement to [facility] with home health, pending approval. No other [...] saw and evaluated the patient with the medical/CHILD WELFARE CONSULTANT/PA student. I discussed the case with the medical/CHILD WELFARE CONSULTANT/PA student and agree with the findings and plan as documented. I personally performed the Examand Medical Decision Making. Working on transition of patient back to [facility]. Unable to accommodate ride for today. Plan fordischarge tomorrow. * Lexi Nascimento, PharmD - 10/20/2024 2:42 PM EDT Images from the original note were not included. [id number] Understanding Hepatic Encephalopathy (HE) Hepatic encephalopathy (HE) [...] treated early. How to say it [id number] What causes hepatic encephalopathy? Researchers don?t know [...] symptoms Last Reviewed Date: 2021 00:00:00 ?? 4379-1921 [employer]. All rights reserved. This information is not [...] Outcome: Ongoing, Progressing 10/20/2024 1100 by Jayant Albaraod RN Outcome: Ongoing, Progressing Goal: Optimal Pain [...] Ongoing, Progressing Intervention: Promote Activity and Functional [place] Flowsheets (Taken 10/20/2024 1322) Activity Assistance Provided: [...] Note Andrew Oconnor 54 y.o. female CSN: [id number] Admission: 09/30/2024 2:02 PM Primary Problem: HE [...] at home usage, SW ordered Rollator via [employer]. ADDENDUM: Duncan Houser reported that patient can return with HH services. SW will arrange HH servicesand Transportation. SW attempted to update Judi via phone and left 2 voicemail for Judi. SW will continue to follow-up with pt's MD and care team on their progress and discharge plan. Vincent Gonzalez MSW, BUTT WELDER * Care Plan - Kiana Chang - [...] Needs: assisted living facility adult day care skilled nursing Current Discharge Risk: homeless lack of support system/caregiver Concerns to be Addressed: discharge planning Readmission Within the Last 30 Days: no previous admission in last 30 days Patient/Family Anticipated Services at Transition: assistant case managerhomeowner association manager agency Taken 10/01/2024 1403 by Vincent [...] active listening utilized self-care encouraged Diversional Activities: [employer] Family/Support System Care: self-care encouraged support provided [...] Ongoing, Progressing Intervention: Promote Activity and Functional [place] Flowsheets (Taken 10/19/2024 1251) Activity Assistance Provided: [...] BM daily. Continues to await placement to [facility] with home health. No other acute concerns. [...] saw and evaluated the patient with the medical/CHILD WELFARE CONSULTANT/PA student. I discussed the case with the medical/CHILD WELFARE CONSULTANT/PA student and agree with the findings and [...] Needs: assisted living facility adult day care skilled nursing Current Discharge Risk: homeless lack of support system/caregiver Concerns to be Addressed: discharge planning Readmission Within the Last 30 Days: no previous admission in last 30 days Patient/Family Anticipated Services at Transition: assistant case managerhomeowner association manager agency Taken 10/01/2024 1403 by Vincent [...] Daily Living Intervention: Promote Activity and Functional [place] Flowsheets (Taken 10/19/2024 1251) Activity Assistance Provided: [...] Ongoing, Progressing Intervention: Promote Activity and Functional [place] Flowsheets Taken 10/19/2024 032 by Shakir Guidry [...] pending placement subacute recs - plan for [facility] - continue lactulose / rifaximin. Patient continues [...] cost prohibitive. - Plan to return to [facility] when ready. 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 - Continue Lactulose 20g TID, titrating to 3-4 bowel movements daily - Continue Rifaximin 550mg BID - Continue Coreg - Continue Spironolactone Chronic # Cognitive delay - [place] # Meningioma - stable on [facility], followed by [facility] in past # [...] Note Andrew Oconnor 54 y.o. female CSN: [id number] Admission: 09/30/2024 2:02 PM Primary Problem: HE [...] and assist with discharge plans. Kierra Ruggiero REAL ESTATE ECONOMIST, BUTT WELDER Youth Services Specialist * Care Plan - Josey Bar RN [...] Depression/Anxiety, FERNANDEZ who [facility] with altered mental status secondary to hepatic [...] saw and evaluated the patient with the medical/CHILD WELFARE CONSULTANT/PA student. I discussed the case with the medical/CHILD WELFARE CONSULTANT/PA student and agree with the findings and [...] better. Participants in Care Family/Caregiver Present: No Harvest Contractor: Not Applicable Presentation Oxygen Therapy: None (Room air) Lines and Tubes: Intravenous access Pre-Session: Supine, Head of bed elevated, Bed alarm Pre-Session Comments: RN consented to treatment Post-Session: Sitting in chair, Chair alarm, Lines intact, RN notified, Call light in reach Post-Session Comments: Patient positioned for comfort and left with all needs within reach, LE's elevated Home Living/Set-Up Home Type: detention ([facility] personal senior care) Home Adaptive Equipment: Rolling walker (pt reports RW is non-functional and is interested in obtaining a rollator) Home Layout: One level Bathroom: Tub/Shower: (Pt is unable to accurately elaborate on bathroom set up, but reports she completes shower transfer independently) Prior Level of Function Receives Help From: Caregiver (staff at [facility]) Level of Mobility: Ambulatory- household only Mobility [place]: Independent gait without device History of Falls: [...] Mobility Bed Mobility Exam: Rolling/Turning Level of [place]: Independent Bed Mobility Exam: Scooting/Bridging Level of [place]: Independent (scooting hips forward to edge of bed) Physical/Nonphysical Assist: Supervision Assistive Device: Bed rails Bed Mobility Exam: Supine to Sit Level of [place]: Modified [place] Physical/Nonphysical Assist: HOB elevated Assistive Device: Bed rails Transfers Transfer Exam: Sit to stand Level of [place]: Stand-by assist Physical/Nonphysical Assist: Supervision Assistive Device: Walker, rolling Transfer Exam: Stand to Sit Level of [place]: Stand-by assist Physical/Nonphysical Assist: Supervision Assistive Device: Walker, rolling Toilet Transfer Level of [place]: Stand-by assist Physical/Nonphysical Assist: Supervision Type of [...] Interventions: Pt completed shower yesterday with staff physician, set up/clean up assist only forall bathing [...] home and has necessary assistance at her skilled nursing. Pt will continue to benefit from skilled [...] Note Andrew Oconnor 54 y.o. female CSN: [id number] Admission: 09/30/2024 2:02 PM Primary Problem: HE (hepatic encephalopathy) (CMS/HCC) Anticipated Discharge Date: TBD SW attempted to discuss with Duncan Houser (Admission Coordinator) but have been unable to get ahold of their admission coordinator. SW attempted on 10/15/2024 and 10/17/2024, leaving a voicemail and number with assistant front end manager. SW attempted calling State Guardian (Judi) to discuss with Judi about next discharge steps. SW left a voicemail with State Guardian. ADDENDUM: [facility] informed SW needing PT/OT updated notes faxed to [phone]. SW willfax update notes to Duncan Houser. SW will continue to follow-up with pt's MD and care team on their progress and discharge plan. Vincent Gonzalez, REAL ESTATE ECONOMIST, BUTT WELDER * Care Plan - Jayant Albarado RN [...] and remain optimistic Taken 10/16/2024 1100 by Jayatn Albarado RN Individualized Care Needs: chair Anxieties, [...] Ongoing, Progressing Intervention: Promote Activity and Functional [place] Flowsheets Taken 10/17/2024 024 by Ariadne Tang RN Adaptive Equipment Use: use encouraged Self-Care Promotion: independence encouraged Taken 10/15/20241999 by Kiana Carrington RN Activity Assistance Provided: assistance, stand-by Problem: Self-Care Deficit Goal: Improved Ability to Complete Activities of Daily Living Intervention: Promote Activity and Functional [place] Flowsheets Taken 10/17/2024 0241 by Ariadne Tang [...] precautions HOME LIVING/SET-UP Lives With Home Type detention ([facility] senior care) Home Equipment Rolling walker (pt reports RW is non-functional and is interested in obtaining a rollator) Home Layout One level Bathroom Layout (Pt is unable to accurately elaborate on bathroom set up, but reports she completesshower transfer independently) Additional Comments PRIOR LEVEL OF FUNCTION Receives help from Caregiver (staff at [facility]) Level of Mobility Ambulatory- household only Mobility [place] Independent gait without device History of Falls [...] Physical Therapy treatment session. Visitors Present No Harvest Contractor (if applicable) Harvest Contractor: Not Applicable OBJECTIVE PAIN Pt was without c/o pain at the beginning of this session but had increased reports of pain in her lower back on her right side and in her right ankle during ambulation and the RN was notfiied. Prior to APPLICATION SUPPORT LEAD's departure: * rest was provided * patient [...] by this therapist: BED MOBILITY Level of [place] Physical/Non- physical Assist Adaptive Equipment Utilized Rolling/ [...] safety with functional tasks. TRANSFERS Level of [place] Physical/Non- physical Assist Adaptive Equipment Utilized Sit to Stand Contact guard Verbal Cues, Maximal cues, Nonverbal cues (demo/gestures) Walker, rolling Stand to sit Contact guard Verbal Cues, Nonverbal cues (demo/gestures), Maximal cues Walker, rolling Bed to Chair Toilet Transfer Contact guard Ambulation, To toilet Set-up required, Verbal Cues, Moderate cues Walker, rolling Shower Transfer Interventions APPLICATION SUPPORT LEAD provided verbal cues for safe hand placement [...] for improved functional mobility. AMBULATION Level of [place] Distance Adaptive Equipment Utilized Ambulation Minimum assistance [...] distance compared to baseline level of function. APPLICATION SUPPORT LEAD presence was necessary for: * progressing patient ambulation distances * monitoring patient vital sign stability * decreasing patient's risk of falling while progressing pt's distances BALANCE Postural Appearance Posture: Forward head, Rounded shoulders Level of [place] Balance Support Activities Static Sit Contact guard [...] to promote increased activity tolerance and Endurance. APPLICATION SUPPORT LEAD providing verbal cues/demonstration for pursed-lip breathing technique to promote improved ventilation, decreased respiratory rate and energy conservation with activity. APPLICATION SUPPORT LEAD stressed to patient the importance of having [...] the state who presents to ED from [facility] with altered mental status secondary to hepatic [...] Referrals sent to other facilities 10/15 # [facility] cirrhosis decompensated by portal hypertension and acute hepatic encephalopathy Encephalopathy now back to baseline. - Continue Lactulose 20g TID, titrating to 3-4 bowel movements daily - Continue Rifaximin 550mg BID - Continue Coreg - Continue Spironolactone Chronic # Cognitive delay - [place] # Meningioma - stable on [facility], followed by [facility] in past # [...] Note Andrew Oconnor 54 y.o. female CSN: [id number] Admission: 09/30/2024 2:02 PM Primary Problem: HE (hepatic encephalopathy) (CMS/HCC) Anticipated Discharge Date: TBD Plan of care reviewed with pt's care team; and per , pt is medically ready for discharge pending placement. HONG followed up with Erika in admission at [facility]#[phone]. July informed HONG that she has discussed placement with State Guardian (Judi), and July reported that patient would have 10% Copayment due to facility not being in network with pt medicaid insurance. State Guardian reported that pt would be unable to afford that cost. HONG sent referral to [facility] genoveva Nunez and Judi reported that she forward Referral packet to [facility]. HONG will continue to follow up with both facility. SW will continue to follow-up with pt's MD and care team on their progress and discharge plan. Vincent Gonazlez, REAL ESTATE ECONOMIST, BUTT WELDER * Consults - Kierra Montejo RD - 10/15/2024 9:36 AM EDT Adult Nutrition Evaluation Note Andrew Oconnor 54 y.o. female CSN: [id number] Room/Bed 129/129A Nutrition evaluation type: follow-up Reason [...] Weight Evaluation: Extreme Obesity (BMI > 40) [place] Body Weight (kg): 45.4 Percent [place] Body Weight: 233 Adjusted Body Weight (kg): [...] D3, Iron, Lactulose, Synthroid, Melatonin, Protonix,Pyridoxine, Aldactone Yazidi needs: Nutrition Focused Physical Exam: Physical exam [...] ALL, meningioma, migraines, hypothyroidism, HTN, PUD, Depression/Anxiety, EFRNANDEZ, delgado of the [facility] who presents to ED from [facility] ([place] with altered mental status secondary to hepatic [...] precautions HOME LIVING/SET-UP Lives With Home Type detention ([facility] senior care) Home Equipment Rolling walker (pt reports RW is non-functional and is interested in obtaining a rollator) Home Layout One level Bathroom Layout (Pt is unable to accurately elaborate on bathroom set up, but reports she completesshower transfer independently) Additional Comments PRIOR LEVEL OF FUNCTION Receives help from Caregiver (staff at [facility]) Level of Mobility Ambulatory- household only Mobility [place] Independent gait without device History of Falls [...] own apartment [place] Visitors Present No Harvest Contractor (if applicable) N/A OBJECTIVE PAIN Pain Score [...] obstacles is abarrier to independence. Level of [place] Adaptive Equipment Utilized Interventions Feeding Setup Chair [...] OT to complete brushing and styling hair- pt did direct care by requesting hair style she [...] safe hand position. BED MOBILITY Level of [place] Physical/Non- physical Assist Adaptive Equipment Utilized Rolling/ [...] chair) Verbal Cues Interventions TRANSFERS Level of [place] Physical/Non- physical Assist Adaptive Equipment Utilized Sit to Stand Contact guard Verbal Cues, Maximal cues, Nonverbal cues (demo/gestures) Walker, rolling Stand to sit Contact guard Verbal Cues, Nonverbal cues (demo/gestures), Maximal cues Walker, rolling Interventions OT provided verbal cues for hand position throughout all position changes BALANCE Postural Appearance Posture: Forward head, Rounded shoulders Level of [place] Balance Support Interventions Static Sit Contact guard [...] increase balance support. FUNCTIONAL MOBILITY Level of [place] Distance Adaptive Equipment Utilized Ambulation Minimum assistance [...] PRN. 10/03/24 2 weeks Written by Jazmyne Allen on 10/14/24 at 12:41 PM. * Care [...] Mobility Bed Mobility Exam: Scooting/Bridging Level of [place]: Contact guard Physical/Nonphysical Assist: Verbal Cues Bed Mobility Exam: Supine to Sit Level of [place]: Contact guard Physical/Nonphysical Assist: Verbal Cues Bed Mobility Exam: Sit to Supine Level of [place]: Contact guard Physical/Nonphysical Assist: Verbal Cues Transfers Transfer Exam: Sit to stand Level of [place]: Contact guard (x 2 reps) Physical/Nonphysical Assist: Verbal Cues Assistive Device: Walker, rolling Transfer Exam: Stand to Sit Level of [place]: Contact guard Physical/Nonphysical Assist: Verbal Cues Assistive Device: Walker, rolling Toilet Transfer Level of [place]: Contact guard Physical/Nonphysical Assist: Verbal Cues Type [...] techniques. Standardized Assessments Standardized Assessments Standardized Assessments: [facility] 6-Clicks Mobility Assessment [facility] 6-Clicks Mobility Assessment Difficulty patient has turning [...] 3-5 steps with a railing?: A lot [facility] 6-Clicks Mobility Assessment Total : 17 Assessment [...] Plan HE (hepatic encephalopathy) (CMS/HCC) Acute encephalopathy YKLIE (acute kidney injury) (CMS/HCC) Hypoglycemia Andrew Oconnor is a 50 y/o F with Hx of BOWDEN Cirrhosis with history of HE, mild cognitive delay, childhood ALL, meningioma, migraines, hypothyroidism, HTN, PUD, Depression/Anxiety, FERNANDEZ, delgado of the [facility] who presents to ED from [facility] ([place]) with altered mental status secondary to hepatic encephalopathy. Now better and working on a safe dispo. Today: - pending placement subacute recs - precert started 10/14 for [facility]. - continue lactulose / rifaximin. Patient continues to have appropriate mentation. 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 - Continue Lactulose 20g TID, titrating to 3-4 bowel movements daily - Continue Rifaximin 550mg BID - Continue Coreg - Continue Spironolactone Chronic #Meningioma - stable on [facility], followed by AMAURY in past #HTN: [...] Depression/Anxiety, FERNANDEZ who [facility] with altered mental status secondary to hepatic [...] Depression/Anxiety, FERNANDEZ who [facility] from [facility] ([place]) with altered mental status secondary to hepaticencephalopathy. Today: - Subacute recs, pending placement - [facility] initiating precert - Continue current treatment Acute: [...] saw and evaluated the patient with the medical/CHILD WELFARE CONSULTANT/PA student. I discussed the case with the medical/CHILD WELFARE CONSULTANT/PA student and agree with the findings and [...] Andrew Jake Oconnor 54 y.o. female CSN: [id number] Admission: 09/30/2024 2:02 PM Primary Problem: HE (hepatic encephalopathy) (CMS/HCC) Anticipated Discharge Date: TBD Plan of care reviewed with pt's care team; and per MD, pt is medically ready for discharge pending placement. HONG followed up with Erika in admission at [facility] #[phone]. Erika informed HONG that she has attempted to get ahold of State Guardian (Judi) so she could initiate precert. HONG followed up with Judi via Phone at [phone], Judi reported that she had ensure that patient would be able to attend [facility] and would call HONG back. HONG provided Judi with Erika (Security Consultant) with [facility] phone numbers. SW will continue to follow-up with pt's MD and care team on their progress and discharge plan. Vincent Gonzalez, REAL ESTATE ECONOMIST, BUTT WELDER * Care Plan - Juancho Fofana RN [...] Depression/Anxiety, FERNANDEZ who [facility] with altered mental status secondary to hepatic [...] Depression/Anxiety, FERNANDEZ who presents [facility] from [facility] ([place]) with altered mental status secondary to hepaticencephalopathy. [...] saw and evaluated the patient with the medical/CHILD WELFARE CONSULTANT/PA student. I discussed the case with the medical/CHILD WELFARE CONSULTANT/PA student and agree with the findings and [...] Depression/Anxiety, FERNANDEZ who [facility] from [facility] ([place]) with altered mental status secondary to hepaticencephalopathy. [...] Mobility Bed Mobility Exam: Scooting/Bridging Level of [place]: Contact guard Physical/Nonphysical Assist: Verbal Cues Bed Mobility Exam: Supine to Sit Level of [place]: Contact guard Physical/Nonphysical Assist: Verbal Cues Transfers Transfer Exam: Sit to stand Level of [place]: Contact guard Physical/Nonphysical Assist: Verbal Cues Assistive Device: Walker, rolling Transfer Exam: Stand to Sit Level of [place]: Contact guard Physical/Nonphysical Assist: Verbal Cues Assistive Device: Walker, rolling Toilet Transfer Level of [place]: Contact guard Physical/Nonphysical Assist: Verbal Cues Type [...] activities. Standardized Assessments Standardized Assessments Standardized Assessments: [facility] 6-Clicks Mobility Assessment [facility] 6-Clicks Mobility Assessment Difficulty patient has turning [...] 3-5 steps with a railing?: A lot [facility] 6-Clicks Mobility Assessment Total : 17 Assessment [...] Depression/Anxiety, FERNANDEZ who [facility] with altered mental status secondary to hepatic [...] Depression/Anxiety, FERNANDEZ who [facility] [place] [facility] [place] with altered mental status secondary to [...] saw and evaluated the patient with the medical/CHILD WELFARE CONSULTANT/PA student. I discussed the case with the medical/CHILD WELFARE CONSULTANT/PA student and agree with the findings and [...] bathing routine, seated, with assist from staff physician, reiteration for use of adapted technique in [...] Note Andrew Oconnor 54 y.o. female CSN: [id number] Admission: 09/30/2024 2:02 PM Primary Problem: HE (hepatic encephalopathy) (CMS/HCC) Anticipated Discharge Date: TBD Per team and chart review pt is pending insurance precert for [facility]. ARCADIO GARCES contacted [facility]#[phone] to check on precert status, spoke with [...] Depression/Anxiety, FERNANDEZ who [facility] from [facility] with altered mental status secondary to hepatic [...] Problems: Acute encephalopathy KYLIE (acute kidney injury) (CMS/[facility]) Hypoglycemia Andrew Oconnor is a 50 y/o F with Hx of BOWDEN Cirrhosis with history of HE, mild cognitive delay, childhood ALL, meningioma, migraines, hypothyroidism, HTN, PUD, Depression/Anxiety, FERNANDEZ who presents [facility] from [facility] ([place]) with altered mental status secondary to hepaticencephalopathy. [...] saw and evaluated the patient with the medical/CHILD WELFARE CONSULTANT/PA student. I discussed the case with the medical/CHILD WELFARE CONSULTANT/PA student and agree with the findings and [...] 2:56 PM EDT Patient was referred to [facility]. No beds available at either facility. Referrals [...] Depression/Anxiety, FERNANDEZ who [facility] from [facility] with altered mental status secondary to hepatic [...] Depression/Anxiety, FERNANDEZ who [facility] from [facility] [place] with altered mental status secondary to [...] saw and evaluated the patient with the medical/CHILD WELFARE CONSULTANT/PA student. I discussed the case with the medical/CHILD WELFARE CONSULTANT/PA student and agree with the findings and [...] Note Andrew Oconnor 54 y.o. female CSN: [id number] Room/Bed 129/129A Nutrition evaluation type: screen Reason [...] (Room air) O2 Delivery Method: Nasal cannula [place] Coma Scale Score: 15 Som Scale Score: [...] Weight Evaluation: Extreme Obesity (BMI > 40) [place] Body Weight (kg): 45.4 Percent [place] Body Weight: 233 Adjusted Body Weight (kg): [...] D3, Iron, Lactulose, Synthroid, Melatonin, Protonix,Pyridoxine, Aldactone Yazidi needs: Nutrition Focused Physical Exam: Physical exam [...] Mobility Bed Mobility Exam: Scooting/Bridging Level of [place]: Contact guard Physical/Nonphysical Assist: Verbal Cues Bed Mobility Exam: Supine to Sit Level of [place]: Contact guard Physical/Nonphysical Assist: Verbal Cues Transfers Transfer Exam: Sit to stand Level of [place]: Contact guard Physical/Nonphysical Assist: Verbal Cues Assistive Device: Walker, rolling Transfer Exam: Stand to Sit Level of [place]: Contact guard Physical/Nonphysical Assist: Verbal Cues Assistive Device: Walker, rolling Toilet Transfer Level of [place]: Contact guard Physical/Nonphysical Assist: Verbal Cues Type [...] Assessments Standardized Assessments: [facility] 6-Clicks Mobility Assessment [facility] 6-Clicks Mobility Assessment Difficulty patient has turning [...] 3-5 steps with a railing?: A lot [facility] 6-Clicks Mobility Assessment Total : 17 Assessment [...] from the original note were not included. [facility] Medicine Progress Note Subjective Length of stay: 7 days Brief Patient Summary: Andrew Oconnor is a 50 y/o F with Hx of BOWDEN Cirrhosis with history of HE, mild cognitive delay, childhood ALL, meningioma, migraines, hypothyroidism, HTN, PUD, Depression/Anxiety, FERNANDEZ who [facility] from [facility] with altered mental status secondary to hepatic [...] Depression/Anxiety, FERNANDEZ who presents [facility] from [facility] ([place]) with altered mental status secondary to hepaticencephalopathy. [...] saw and evaluated the patient with the medical/CHILD WELFARE CONSULTANT/PA student. I discussed the case with the medical/CHILD WELFARE CONSULTANT/PA student and agree with the findings and [...] Depression/Anxiety, FERNANDEZ who presents to ED from [facility] with altered mental status secondary to hepatic [...] Depression/Anxiety, FERNANDEZ who presents to ED from [facility] ([place] with altered mental status secondary to [...] saw and evaluated the patient with the medical/CHILD WELFARE CONSULTANT/PA student. I discussed the case with the medical/CHILD WELFARE CONSULTANT/PA student and agree with the findings and plan as documented. I personally performed the Examand Medical Decision Making. HE resolved and working on safe dispo. Will follow up with assistant case manager. * Progress Notes - Judi Colmenares - 10/06/2024 10:38 AM EDT Case Management Adult Progress Note Andrew Oconnor 54 y.o. female CSN: [id number] Admission: 09/30/2024 2:02 PM Primary Problem: HE [...] state guardian has expressed a preference for [facility] in [place] 2/2 proximity to home [place]. SW called and spoke with business support coordinator Zahra this date, who states shehas [...] Note Andrew Oconnor 54 y.o. female CSN: [id number] Admission: 09/30/2024 2:02 PM Primary Problem: HE (hepatic encephalopathy) (CMS/HCC) Anticipated Discharge Date: TBD Pt was admitted to the hospital due to hepatic encephalopathy. Plan of care reviewed with pt's chelyteam; and per MD, pt is medically ready for discharge Pending Placement. State Guardian reported that [facility] would be the top choice due to being near to her personal senior care, or any facility that was in [place]. Care Port shows [facility] is willing to accept, waiting for response from [facility]. SW will follow up with [facility]. Patient lives at [facility], their phone number is . Pt state guardian reported that pt will need uber/wheelchair van for transportation upon discharge, Pt meets 300%FPG. SW will continue to follow-up with pt's MD and care team on their progress and discharge plan. Vincent Gonzalez, REAL ESTATE ECONOMIST, BUTT WELDER * Progress Notes - Gucci Martines - [...] Depression/Anxiety, FERNANDEZ who [facility] with altered mental status secondary to hepatic [...] Depression/Anxiety, FERNANDEZ who [facility] from [facility] with altered mental status secondary to hepatic [...] saw and evaluated the patient with the medical/CHILD WELFARE CONSULTANT/PA student. I discussed the case with the medical/CHILD WELFARE CONSULTANT/PA student and agree with the findings and [...] Depression/Anxiety, FERNANDEZ who presents to ED from [facility] with altered mental status secondary to hepatic encephalopathy. Today: - reviewed PT/OT recs for subacute - reviewed drug abuse social worker note 10/03 documenting communication with [...] Progress Note Andrew Oconnor 54 y.o. female [facility]: [id number] Admission: 09/30/2024 2:02 PM Primary Problem: HE (hepatic encephalopathy) (CMS/HCC) Anticipated Discharge Date: TBD Pt informed SW at bedside that at her personal senior care ([facility]) has Cockroaches and Mice within her room. SW followed up with pt Judi jean baptiste. State Yanes informed SW that she would follow up with the facility and do a investigate next week of the facility. State Yanes informed SW that OIG and Reid reported would need to be made, SW followed up with his Trace Clerk, and was provided the numbers for both and was informed that he was able to call [facility]. SW informed State Yanes, that PT/OT is recommending Subacute Rehab. State Yanes was agreeablefor patient to attend Subacute Rehab. State Yanes reported that [facility] would be thetop choice due to being near to her personal senior care, or any facility that was in [place]. HONG sent referrals for subacute rehab on 10/03/2024. HONG filled a report with DENISE and Reid via Phone. SW will continue to follow-up with pt's MD and care team on their progress and discharge plan. Vincent Gonzalez, REAL ESTATE ECONOMIST, BUTT WELDER * Progress Notes - Gucci Martines - [...] Depression/Anxiety, FERNANDEZ who [facility] from [facility] with altered mental status secondary to hepatic [...] & Plan Principal Problem: HE (hepatic encephalopathy) ([facility]) Active Problems: Acute encephalopathy KYLIE (acute kidney injury) ([facility]) Hypoglycemia Andrew Oconnor is a 50 y/o F with Hx of BOWDEN Cirrhosis with history of HE, mild cognitive delay, childhood ALL, meningioma, migraines, hypothyroidism, HTN, PUD, Depression/Anxiety, FERNANDEZ who [facility] from [facility] with altered mental status secondary to hepatic [...] saw and evaluated the patient with the medical/CHILD WELFARE CONSULTANT/PA student. I discussed the case with the medical/CHILD WELFARE CONSULTANT/PA student and agree with the findings and [...] Acute encephalopathy 09/30/2024 KYLIE (acute kidney injury) ([facility]) 09/30/2024 Hypoglycemia 09/30/2024 HE (hepatic encephalopathy) ([facility]) 11/19/2020 Procedures Past Medical History Patient has a past medical history of ALL (acute lymphoblastic leukemia of infant) ([facility]) and Stroke ([facility]). Past Surgical History Patient has a past surgical history that includes Cholecystectomy (N/A); Appendectomy (N/A); and section, low transverse (N/A). Precautions Medical Precautions: Fall precautions Subjective Pt was agreeable to working with PT today. She reports overall feeling okay but she did c/o her R ankle throughout the session d/t having bone spurs. Participants in Care Family/Caregiver Present: No Harvest Contractor: Not Applicable Presentation Oxygen Therapy: None (Room air) Lines and Tubes: Intravenous access Pre-Session: Supine, Head of bed elevated, Lines intact Pre-Session Comments: RN and CNT present in room upon PT/OT arrival, pt reporting urgent need to transfer to [facility] Post-Session: Sitting in chair, Chair alarm, Lines intact, RN notified, Call light in reach Post-Session Comments: All needs met, RN in room at conclusion Home Living/Set-up Home Type: detention ([facility] senior care) Home Adaptive Equipment: Rolling walker (pt reports RW is non-functional and is interested in obtaining a rollator) Home Layout: One level Bathroom: Tub/Shower: (Pt is unable to accurately elaborate on bathroom set up, but reports she completes shower transfer independently) Prior Level of Function Receives Help From: Caregiver (staff at [facility]) Level of Mobility: Ambulatory- household only Mobility [place]: Independent gait without device History of Falls: [...] Orientation Level Comments: Name of hospital as [facility] ; not oriented to date, requiredcues [...] Mobility Bed Mobility Exam: Scooting/Bridging Level of [place]: Moderate assist (50% patient's effort) (scooting hips forward to edge of bed) Physical/Nonphysical Assist: Verbal Cues, Nonverbal cues (demo/gestures), Additional assist utilized for safety Assistive Device: Bed rails Bed Mobility Exam: Supine to Sit Level of [place]: Moderate assist (50% patient's effort) Physical/Nonphysical Assist: HOB elevated, Verbal Cues, Nonverbal cues (demo/gestures), Additional assist utilized for safety Assistive Device: Bed rails Transfers Transfer Exam: Sit to stand Level of [place]: Moderate assist (50% patient's effort) (progressing to min A from recliner) Physical/Nonphysical Assist: Verbal Cues, Additional assist utilized for safety Assistive Device: Hand held assist Transfer Exam: Stand to Sit Level of [place]: Minimum assist (75% patient's effort) Physical/Nonphysical Assist: Verbal Cues, Additional assist utilized for safety Assistive Device: Hand held assist Transfer Exam: Bed to Chair/Chair to Bed Level of [place]: Minimum assist (75% patient's effort) Physical/Nonphysical Assist: Set-up required, Verbal Cues, Nonverbal cues (demo/gestures), Moderatecues, Additional assist utilized for safety Type of Transfer: Sidesteps Assistive Device: Hand held assist Toilet Transfer Level of [place]: Moderate assist (50% patient's effort) Physical/Nonphysical Assist: [...] bed to go to chair with bilateral ENVIRONMENTAL INTERN. After a seated rest pt progressed to [...] R side, and downward gaze using bilateral ENVIRONMENTAL INTERN initially during ambulation. Pt reporting that she [...] throughout. Standardized Assessments Standardized Assessments Standardized Assessments: [facility] 6-Clicks Mobility Assessment [facility] 6-Clicks Mobility Assessment Difficulty patient has turning [...] 3-5 steps with a railing?: A lot [facility] 6-Clicks Mobility Assessment Total : 17 No [...] skilled PT services while admitted and at [facility] to help address her deficits and to [...] 09/30/2024 for work-up of HE (hepatic encephalopathy) ([facility]). Problem List Active Hospital Problems Diagnosis Date Noted Acute encephalopathy 09/30/2024 KYLIE (acute kidney injury) ([facility]) 09/30/2024 Hypoglycemia 09/30/2024 HE (hepatic encephalopathy) ([facility]) 11/19/2020 Past Medical History Patient has a past medical history of ALL (acute lymphoblastic leukemia of ) ([facility]) and Stroke ([facility]). Past Surgical History Patient has a past surgical history that includes Cholecystectomy (N/A); Appendectomy (N/A); and section, low transverse (N/A). Precautions Medical Precautions: Fall precautions Subjective Pt and RN agreeable to initial OT evaluation. Pt reported urgent need to use BSC upon OT arrival. Participants in Care Family/Caregiver Present: No Harvest Contractor: Not Applicable Presentation Oxygen Therapy: None (Room [...] room at conclusion Home Living/Set-up Home Type: detention ([facility] senior care) Home Adaptive Equipment: Rolling walker (pt reports RW is non-functional and is interested in obtaining a rollator) Home Layout: One level Bathroom: Tub/Shower: (Pt is unable to accurately elaborate on bathroom set up, but reports she completes shower transfer independently) Prior Level of Function Receives Help From: Caregiver (staff at [facility]) Level of Mobility: Ambulatory- household only Mobility [place]: Independent gait without device History of Falls: [...] Orientation Level Comments: Name of hospital as [facility] ; not oriented to date, requiredcues [...] Mobility Bed Mobility Exam: Scooting/Bridging Level of [place]: Moderate assist (50% patient's effort) (scooting hips forward to edge of bed) Physical/Nonphysical Assist: Verbal Cues, Nonverbal cues (demo/gestures), Additional assist utilized for safety Assistive Device: Bed rails Bed Mobility Exam: Supine to Sit Level of [place]: Moderate assist (50% patient's effort) Physical/Nonphysical Assist: HOB elevated, Verbal Cues, Nonverbal cues (demo/gestures), Additional assist utilized for safety Assistive Device: Bed rails Transfers Transfer Exam: Sit to stand Level of [place]: Moderate assist (50% patient's effort) (progressing to min A from recliner) Physical/Nonphysical Assist: Verbal Cues, Additional assist utilized for safety Assistive Device: Hand held assist Transfer Exam: Stand to Sit Level of [place]: Minimum assist (75% patient's effort) Physical/Nonphysical Assist: Verbal Cues, Additional assist utilized for safety Assistive Device: Hand held assist Toilet Transfer Level of [place]: Moderate assist (50% patient's effort) Physical/Nonphysical Assist: Verbal Cues, Nonverbal cues (demo/gestures), Additional assist utilized for safety Type of Transfer: Sidesteps, To bedside commode Assistive Device: Hand held assist Functional Mobility Device: Hand held assist, Rolling walker Apparatus: Chair follow Assistance: Minimum assistance, Moderate verbal cues, Moderate tactile cues, Additional assist utilized for safety Distance : 12 ft around bed to recliner with ENVIRONMENTAL INTERN + 25 ft in room with RW [...] 10/03/24 0022 10/03/2423 Event/Notification Description Event Location [facility] -- -- Department and Room Number 581 -- -- Is the patient a DNR? No -- -- Type of Event Decline -- -- Type of Decline Mental status changes -- -- Method of Notification Nurse (specify) (via [employer] Chat) -- -- Vitals Temp -- -- 36.8 ??C (98.2 ??F) Heart Rate -- -- 78 SpO2 -- -- 96 % BP -- -- 134/74 MAP (mmHg) -- -- 94 Onset and Notification Specifics Hours in Decline Before BRUSH OPERATOR Notified <4 -- -- Time MD Notified 0021 (in Epic Chat) -- -- Time MD Arrived 0030 -- -- Time BRUSH OPERATOR RN Notified 0021 -- -- Time BRUSH OPERATOR RN Arrived 0024 -- -- Rapid RT [...] and Notification Specifics Hours in Decline Before BRUSH OPERATOR Notified -- -- -- Time MD Notified -- -- -- Time MD Arrived -- -- -- Time BRUSH OPERATOR RN Notified -- -- -- Time BRUSH OPERATOR RN Arrived -- -- -- Rapid RT [...] -- -- Notified via urgent message in [employer] Chat of need for assistance - BRUSH OPERATOR requested with MD to bedside.BRUSH OPERATOR to bedside. Primary nursing staff present. Pt [...] and dry. MD Lutz present soon after BRUSH OPERATOR and POC was discussed. Labs obtained including [...] Review Outcome: Ongoing, Progressing Flowsheets (Taken 10/02/2024 0613) Plan of Care Reviewed With: patient Goal: [...] FERNANDEZ who presents to ED from personal senior care with altered mental status found to have [...] Depression/Anxiety, FERNANDEZ who [facility] with altered mental status secondary to hepatic encephalopathy. Currently on lactulose 20 TID, rifaximin, coreg. Given 500 mL bolus LR. Subjective NAEON. Patient doing well this morning. Reporting 4x bowel movements yesterday. She mentions ongoing abdominal pain mostly epigastric and in the RUQ. She also says she does not like her current senior care since it is dirty and unkempt. Reporting [...] Depression/Anxiety, FERNANDEZ who [facility] with altered mental status secondary to hepatic [...] saw and evaluated the patient with the medical/CHILD WELFARE CONSULTANT/PA student. I discussed the case with the medical/CHILD WELFARE CONSULTANT/PA student and agree with the findings and plan as documented. I personally performed the Examand Medical Decision Making. Overall improving but Ccntinued mild HE with intermittently delayed responses. Patient also reportspersistent fatigue. Will continue lactulose. * Progress Notes - Vincent Gonzalez - 10/02/2024 8:48 AM EDT Case Management Adult Progress Note Andrew Oconnor 54 y.o. female CSN: [id number] Admission: 09/30/2024 2:02 PM Primary Problem: HE (hepatic encephalopathy) (CMS/HCC) Anticipated Discharge Date: TBD Pt was admitted to the hospital due to hepatic encephalopathy. Plan of care reviewed with pt's careteam; and per MD, pt is not medically ready for discharge due to currently monitoring LFT's, and MDreported monitor closely for signs of worsening mentation, infection, and renal function. Patient lives at [facility], their phone number is . Pt state guardian reported that pt will need uber/wheelchair van for transportation upon discharge, Pt meets 300%FPG. SW will continue to follow-up with pt's MD and care team on their progress and discharge plan. Vincent Gonzalez, REAL ESTATE ECONOMIST, BUTT WELDER * Care Plan - Caren Maravilla RN [...] disease,Depression/Anxiety, FERNANDEZ who presents to ED from [facility] with altered mentalstatus. Subjective Patient evaluated at [...] Depression/Anxiety, FERNANDEZ who [facility] with altered mental status secondary to hepatic [...] saw and evaluated the patient with the medical/CHILD WELFARE CONSULTANT/PA student. I discussed the case with the medical/CHILD WELFARE CONSULTANT/PA student and agree with the findings and [...] Note Andrew Oconnor 54 y.o. female CSN: [id number] Admission: 09/30/2024 2:02 PM Primary Problem: HE (hepatic encephalopathy) (CMS/HCC) Hydrostatic Tubing Tester reviewed chart and spoke with patient State Guardian (Judi Owens) via phone to complete this Initial Case Management Assessment. PCP: Celsa Pereira, RN Emergency Contact: Extended Emergency Contact Information Primary Emergency Contact: Judi Owens Mobile Relation: Legal Guardian Insurance: Primary Visit Coverage Payer Plan Sponsor Code Group Number Group Name ARMEN AYERS [facility] [facility] [id number] Primary Visit Coverage Subscriber Subscriber ID Subscriber Name Subscriber SSN Subscriber Address [id number] JESUS OCONNOR Dasha [id number] [address] [place] [address] Secondary Visit Coverage Payer Plan Sponsor Code Group Number Group Name [facility] MEDICAID [facility] MEDICAID Secondary Visit Coverage Subscriber Subscriber ID Subscriber Name Subscriber SSN Subscriber Address [id number] ANDREW OCONNOR [id number] [address] [place] [address] Patient information: Primary Caregiver: Other (Comment) ([facility]) Support System: Other (Comment), Community ([facility]: [facility]) Daily Living Activities: Functional Status: Independent Living Arrangements: Snf Type of Residence: detention [facility] [address] [id number] Care Facility Name: [facility] Smoker in the Home?: No Current DME: Equipment Currently Used at Home: none Current DME Provider: Guardian denies HH, HD, Home infusion, 02 and DME at skilled nursing. Income Information: Income Source: Disabled Income/Expense Information: Income meets expenses Current Resources Utilized: None Housing Circumstances-Z Codes: Housing Circumstances (select all that apply): Low Income (101-300% Federal Poverty Guidlines) - Z596 Patient Referred to: Financial Resources: Other (Comment) (Pt Guardian reported no Financial or Community Resources needs at this time,.) Anticipated Discharge Date: TBD Patient's Discharge Goal: To discharge back to [facility] Assistance Available at Discharge: Snf (Personal [facility]: [facility] [place]), State Guardianship,and [facility] Discharge Transport: Uber/ Wheelchair Van/ [facility] Follow Up Transport: [facility]/ [facility] Home Health / Home Infusion / Outpatient Dialysis Services: Current DME Provider: Guardian denies HH, HD, Home infusion, 02 and DME at skilled nursing. Living Will/Advance Directive/Power of Mri Technician /Guardian: Unable to assess: No Have you [...] face sheet are accurate. Pt lives at [address] [place] [address] at [facility] called [facility]. Pt [...] issue s at this time. Pt attends [facility] for [facility] Rehabilitation Program ([facility]). [facility] number is . [facility] Phone number is . SW will continue to follow and assist as needed. Vincent Gonzalez MSW, BUTT WELDER * Progress Notes - Vincent Gonzalez - 10/01/2024 7:49 AM EDT Case Management Adult Progress Note Andrew Oconnor 54 y.o. female CSN: [id number] Admission: 09/30/2024 2:02 PM Primary Problem: HE [...] their progress and discharge plan. Vincent Gonzalez, REAL ESTATE ECONOMIST, BUTT WELDER * H&P - Leon Ramirez APRN, DNP [...] andMorbid Obesity who presents to ED from [facility] on 09/30/24 with acute change in mentation. Her LKN is unknown (patient had missed couple days), but paper sales manager states patient came in around 12pm on 09/30/24 and was noted to have worsening mentation, not following commands, having difficulties tracking staff, and having difficulties with ambulating. Patient resides at a personal senior care in [place]. In ED, GCS 14 in triage. VS [...] andMorbid Obesity who presents to ED from [facility] on 09/30/24 with acute change in mentation. [...] Contact: SamanthaJuly Relation: Legal Guardian Preferred language: Thai Harvest Contractor needed? 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 Staff at [facility] reports her baseline is Aox3 with [...] condition. She has a new guardian/power of office support on file. Updated medication list includes: [id number], Hydroxyzine 25MG, Carvedilol 3.125MG, Lisinopril 10MG, Levothyroxine 100MG, Cymbalta 30MG. History provided by: Patient, medical records and jail History limited by: Acuity of condition and [...] bilaterally in both upper and lower extremities. Lcpc strength 5/5 bilaterally. Sensation of distal extremities [...] 1 View One time imaging Final result JESN MOHAN Luis 09/30/24 1432 Hepatitis C Antibody [...] BG is greater than 100 mg/dL. Acknowledged JESN MOHAN Social Determinates of Health Risks (including [...] care. 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 EMS state were called d/t altered mental status unknown last known well. Letha, it infrastructure manager at facility states pt has missed a couple of days at day center and then came today around 12pm and was noted to have worsening mentation, not able to follow commands well, not able to track staff, difficulty ambulating. Pt stays in personal senior care in [place]. Uknown LKN, GCS 14 in triage. FSBS 65. documented in this encounter Plan of Treatment Pending Results Name Type Priority Associated Diagnoses Date /Time Prepare Leukocyte Reduced RBC Blood Bank STAT 09/30/2024 4:10 PM EDT Scheduled Referrals Name Type Priority Associated Diagnoses Orde r Schedule Discharge Ambulatory referral to [facility] Outpatient Referral Routine HE (hepatic encephalopathy) (CMS/HCC) 1 Occurrences starting 10/17/2024 until 04/20/2026 Discharge Ambulatory referral to [facility] Outpatient Referral Routine Acute encephalopathy 1 Occurrences [...] CLINICAL INDICATION: evaluate subcutaneous nodule TECHNIQUE: Multiplanar garica scale survey and color Doppler sonographic imaging [...] MD on 10/18/2024 11:42 AM us Momo Akhtar MD IM US PROCEDURES Final Result * (ABNORMAL) Comprehensive Metabolic Panel, Plasma (10/17/2024 4:53 AM EDT) Glucose, Plasma 79 74 - 99 mg/dL 10/17/2024 5:37 AM EDT [facility] BUN, Plasma 7 7 - 21 mg/dL 10/17/2024 5:37 AM EDT [facility] Creatinine, Plasma 0.96 0.60 - 1.10 mg/dL 10/17/2024 5:37 AM EDT [facility] BUN/Creatinine Ratio 7 10/17/2024 5:37 AM EDT [facility] Sodium, Plasma 138 136 - 145 mmol/L 10/17/2024 5:37 AM EDT [facility] Potassium, Plasma 4.1 3.6 - 4.9 mmol/L 10/17/2024 5:37 AM EDT [facility] Chloride, Plasma 106 97 - 107 mmol/L 10/17/2024 5:37 AM EDT [facility] CO2, Plasma 26 22 - 29 mmol/L 10/17/2024 5:37 AM EDT [facility] Anion Gap 6 6 - 16 mmol/L 10/17/2024 5:37 AM EDT [facility] Total Calcium, Plasma 9.4 8.9 - 10.2 mg/dL 10/17/2024 5:37 AM EDT [facility] Total Protein 6.0(L) 6.3 - 7.9 g/dL 10/17/2024 5:37 AM EDT [facility] Albumin, Plasma 3.0(L) 3.5 - 5.2 g/dL 10/17/2024 5:37 AM EDT [facility] AST, Plasma 56(H) 10 - 35 U/L 10/17/2024 5:37 AM EDT [facility] Comment:Hemolyzed, result ma y be falsely increased. ALT, Plasma 29 10 - 35 U/L 10/17/2024 5:37 AM EDT [facility] Alkaline Phosphatase, Plasma 73 35 - 104 U/L 10/17/2024 5:37 AM EDT [facility] Total Bilirubin, Plasma 0.7 0.2 - 1.1 mg/dL 10/17/2024 5:37 AM EDT [facility] eGFRcr 70.9 mL/min/1.7 3m*2 10/17/2024 5:37 AM EDT [facility] Comment:Reported eGFRcr in m L/min/1.73m2 is based the CKD-EPI 2020 equation that does not use a race coefficient. Blood Venous blood specimen / Unknown Venipuncture / Unknown 10/17/2024 4:53 AM EDT 10/17/2024 5:08 AM EDT us Momo Akhtar MD LAB BLOOD ORDERABLES Final Resu lt [facility] [address] [place] [address] * (ABNORMAL) CBC W/O Differential (10/17/2024 4:53 AM EDT) WBC Count 2.25(L) 3.70 - 10.30 10*3/uL LAB HEMATOLOGY METHOD 10/17/2024 5:15 AM EDT [facility] RBC Count 3.31(L) 3.90 - 5.20 10*6/uL LAB HEMATOLOGY METHOD 10/17/2024 5:15 AM EDT [facility] HGB 11.2 11.2 - 15.7 g/dL LAB HEMATOLOGY METHOD 10/17/2024 5:15 AM EDT [facility] HCT 33.4(L) 34.0 - 45.0 % LAB HEMATOLOGY METHOD 10/17/2024 5:15 AM EDT [facility] Platelet Count 77(L) 155 - 369 10*3/uL LAB HEMATOLOGY METHOD 10/17/2024 5:15 AM EDT [facility] MCV 101(H) 79 - 98 fL LAB HEMATOLOGY METHOD 10/17/2024 5:15 AM EDT [facility] MCH 33.8(H) 26.0 - 32.0 pg LAB HEMATOLOGY METHOD 10/17/2024 5:15 AM EDT [facility] MCHC 33.5 30.7 - 35.5 g/dL LAB HEMATOLOGY METHOD 10/17/2024 5:15 AM EDT [facility] RDW 14.0 11.5 - 14.5 % LAB HEMATOLOGY METHOD 10/17/2024 5:15 AM EDT [facility] MPV 8.8 8.8 - 12.5 fL LAB HEMATOLOGY METHOD 10/17/2024 5:15 AM EDT [facility] nRBC 0.0 <=0.0 per 100 WBCs LAB HEMATOLOGY METHOD 10/17/2024 5:15 AM EDT [facility] Blood Venous blood specimen / Unknown Venipuncture / Unknown 10/17/2024 4:53 AM EDT 10/17/2024 5:08 AM EDT us Momo Akhtar MD LAB BLOOD ORDERABLES Final Resu lt [facility] [address] [id number] * US Head Neck Soft Tissue (10/11/2024 [...] on 10/11/2024 11:11 AM Evette Goodrich MD [facility] PROCEDURES Final Result * (ABNORMAL) Comprehensive metabolic panel (10/07/2024 4:46 AM EDT) Pathologist [facility] Glucose, Plasma 99 74 - 99 mg/dL 10/07/2024 5:56 AM EDT [facility] BUN, Plasma 5(L) 7 - 21 mg/dL 10/07/2024 5:56 AM EDT [facility] Creatinine, Plasma 0.95 0.60 - 1.10 mg/dL 10/07/2024 5:56 AM EDT [facility] BUN/Creatinine Ratio 5 10/07/2024 5:56 AM EDT [facility] Sodium, Plasma 141 136 - 145 mmol/L 10/07/2024 5:56 AM EDT [facility] Potassium, Plasma 3.6 3.6 - 4.9 mmol/L 10/07/2024 5:56 AM EDT [facility] Chloride, Plasma 108(H) 97 - 107 mmol/L 10/07/2024 5:56 AM EDT [facility] CO2, Plasma 25 22 - 29 mmol/L 10/07/2024 5:56 AM EDT [facility] Anion Gap 8 6 - 16 mmol/L 10/07/2024 5:56 AM EDT [facility] Total Calcium, Plasma 9.2 8.9 - 10.2 mg/dL 10/07/2024 5:56 AM EDT [facility] Total Protein 5.9(L) 6.3 - 7.9 g/dL 10/07/2024 5:56 AM EDT [facility] Albumin, Plasma 3.0(L) 3.5 - 5.2 g/dL 10/07/2024 5:56 AM EDT [facility] AST, Plasma 52(H) 10 - 35 U/L 10/07/2024 5:56 AM EDT [facility] Comment:Hemolyzed, result ma y be falsely increased. ALT, Plasma 27 10 - 35 U/L 10/07/2024 5:56 AM EDT [facility] Alkaline Phosphatase, Plasma 72 35 - 104 U/L 10/07/2024 5:56 AM EDT [facility] Total Bilirubin, Plasma 0.7 0.2 - 1.1 mg/dL 10/07/2024 5:56 AM EDT [facility] eGFRcr 71.8 mL/min/1.7 3m*2 10/07/2024 5:56 AM EDT [facility] Comment:Reported eGFRcr in m L/min/1.73m2 is based the CKD-EPI 2020 equation that does not use a race coefficient. Blood Venous blood specimen / Unknown Venipuncture / Unknown 10/07/2024 4:46 AM EDT 10/07/2024 5:26 AM EDT us Momo Akhtar MD LAB BLOOD ORDERABLES Final Resu lt [facility] [address] [place] [address] * (ABNORMAL) Comprehensive metabolic panel (10/05/2024 7:04 PM EDT) Glucose, Plasma 95 74 - 99 mg/dL 10/05/2024 7:37 PM EDT [facility] BUN, Plasma 5(L) 7 - 21 mg/dL 10/05/2024 7:37 PM EDT [facility] Creatinine, Plasma 0.94 0.60 - 1.10 mg/dL 10/05/2024 7:37 PM EDT [facility] BUN/Creatinine Ratio 5 10/05/2024 7:37 PM EDT [facility] Sodium, Plasma 140 136 - 145 mmol/L 10/05/2024 7:37 PM EDT [facility] Potassium, Plasma 3.9 3.6 - 4.9 mmol/L 10/05/2024 7:37 PM EDT [facility] Chloride, Plasma 107 97 - 107 mmol/L 10/05/2024 7:37 PM EDT [facility] CO2, Plasma 23 22 - 29 mmol/L 10/05/2024 7:37 PM EDT [facility] Anion Gap 10 6 - 16 mmol/L 10/05/2024 7:37 PM EDT [facility] Total Calcium, Plasma 9.3 8.9 - 10.2 mg/dL 10/05/2024 7:37 PM EDT [facility] Total Protein 6.5 6.3 - 7.9 g/dL 10/05/2024 7:37 PM EDT [facility] Albumin, Plasma 3.3(L) 3.5 - 5.2 g/dL 10/05/2024 7:37 PM EDT [facility] AST, Plasma 54(H) 10 - 35 U/L 10/05/2024 7:37 PM EDT [facility] Comment:Hemolyzed, result ma y be falsely increased. ALT, Plasma 27 10 - 35 U/L 10/05/2024 7:37 PM EDT [facility] Alkaline Phosphatase, Plasma 74 35 - 104 U/L 10/05/2024 7:37 PM EDT [facility] Total Bilirubin, Plasma 0.8 0.2 - 1.1 mg/dL 10/05/2024 7:37 PM EDT [facility] eGFRcr 72.7 mL/min/1.7 3m*2 10/05/2024 7:37 PM EDT [facility] Comment:Reported eGFRcr in m L/min/1.73m2 is based the CKD-EPI 2020 equation that does not use a race coefficient. Blood Venous blood specimen / Unknown Venipuncture / Unknown 10/05/2024 7:04 PM EDT 10/05/2024 7:09 PM EDT us Momo Akhtar MD LAB BLOOD ORDERABLES Final Resu lt [facility] [address] [place] [address] * POCT glucose meter (10/05/2024 3:05 AM [...] Comment 10/05/2024 3:13 AM EDT [facility] 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 Parul Bustamante 10/05/2024 3:13 AM EDT [facility] Device ID [id number] 10/05/2024 3:13 AM EDT [facility] Specimen Type POC Capillary 10/05/2024 3:13 AM EDT [facility] Blood Capillary blood specimen / Unknown 10/05/2024 3:05 AM EDT 10/05/2024 3:13 AM EDT us Momo Akhtar MD LAB POINT OF CARE TE ST DOCKED DEVICE UNSOLICITED RESULTS Final Result Performing Organization Address City/[facility] Co de Phone Number [facility] [address] [place] [address] * Phosphorus, Plasma (10/04/2024 5:20 AM EDT) [facility] Phosphorus, Plasma 3.2 2.5 - 4.5 mg/dL 10/04/2024 6:12 AM EDT [facility] Blood Venous blood specimen / Unknown Venipuncture / Unknown 10/04/2024 5:20 AM EDT 10/04/2024 5:29 AM EDT us Garcia Lutz MD LAB BLOOD ORDERABLES Final Resul t Performing Organization Address City/[facility]/ZIP Co de Phone Number [facility] [address] [place] [address] * Magnesium, Plasma (10/04/2024 5:20 AM EDT) [facility] Magnesium, Plasma 2.1 1.9 - 2.4 mg/dL 10/04/2024 6:12 AM EDT [facility] Blood Venous blood specimen / Unknown Venipuncture / Unknown 10/04/2024 5:20 AM EDT 10/04/2024 5:29 AM EDT us Garcia Lutz MD LAB BLOOD ORDERABLES Final Resul t [facility] [address] [place] [address] * (ABNORMAL) CBC and Differential (10/04/2024 5:20 AM EDT) WBC Count 3.75 3.70 - 10.30 10*3/uL LAB HEMATOLOGY METHOD 10/04/2024 5:39 AM EDT [facility] RBC Count 3.52(L) 3.90 - 5.20 10*6/uL LAB HEMATOLOGY METHOD 10/04/2024 5:39 AM EDT [facility] HGB 11.8 11.2 - 15.7 g/dL LAB HEMATOLOGY METHOD 10/04/2024 5:39 AM EDT [facility] HCT 34.7 34.0 - 45.0 % LAB HEMATOLOGY METHOD 10/04/2024 5:39 AM EDT [facility] Platelet Count 82(L) 155 - 369 10*3/uL LAB HEMATOLOGY METHOD 10/04/2024 5:39 AM EDT [facility] MCV 99(H) 79 - 98 fL LAB HEMATOLOGY METHOD 10/04/2024 5:39 AM EDT [facility] MCH 33.5(H) 26.0 - 32.0 pg LAB HEMATOLOGY METHOD 10/04/2024 5:39 AM EDT [facility] MCHC 34.0 30.7 - 35.5 g/dL LAB HEMATOLOGY METHOD 10/04/2024 5:39 AM EDT [facility] RDW 14.1 11.5 - 14.5 % LAB HEMATOLOGY METHOD 10/04/2024 5:39 AM EDT [facility] MPV 8.5(L) 8.8 - 12.5 fL LAB HEMATOLOGY METHOD 10/04/2024 5:39 AM EDT [facility] nRBC 0.0 <=0.0 per 100 WBCs LAB HEMATOLOGY METHOD 10/04/2024 5:39 AM EDT [facility] Differential Type Automated LAB HEMATOLOGY METHOD 10/04/2024 5:39 AM EDT [facility] Neutrophils % 55 % LAB HEMATOLOGY METHOD 10/04/2024 5:39 AM EDT [facility] Lymphocytes % 25 % LAB HEMATOLOGY METHOD 10/04/2024 5:39 AM EDT [facility] Monocytes % 12 % LAB HEMATOLOGY METHOD 10/04/2024 5:39 AM EDT [facility] Eosinophils % 7 % LAB HEMATOLOGY METHOD 10/04/2024 5:39 AM EDT [facility] Basophils % 0 % LAB HEMATOLOGY METHOD 10/04/2024 5:39 AM EDT [facility] Immature Granulocytes % 1 % LAB HEMATOLOGY METHOD 10/04/2024 5:39 AM EDT [facility] Neutrophils Absolute 2.06 1.60 - 6.10 10*3/uL LAB HEMATOLOGY METHOD 10/04/2024 5:39 AM EDT [facility] Lymphocytes Absolute 0.95(L) 1.20 - 3.90 10*3/uL LAB HEMATOLOGY METHOD 10/04/2024 5:39 AM EDT [facility] Monocytes Absolute 0.44 0.30 - 0.90 10*3/uL LAB HEMATOLOGY METHOD 10/04/2024 5:39 AM EDT [facility] Eosinophils Absolute 0.26 0.00 - 0.50 10*3/uL LAB HEMATOLOGY METHOD 10/04/2024 5:39 AM EDT [facility] Basophils Absolute 0.01 0.00 - 0.10 10*3/uL LAB HEMATOLOGY METHOD 10/04/2024 5:39 AM EDT [facility] Immature Granulocytes Absolute 0.03 0.00 - 0.06 10*3/uL LAB HEMATOLOGY METHOD 10/04/2024 5:39 AM EDT [facility] Blood Venous blood specimen / Unknown Venipuncture / Unknown 10/04/2024 5:20 AM EDT 10/04/2024 5:29 AM EDT [facility] - 10/04/2024 5:39 AM EDT Therapeutic decision making should be based on absolute values, rather than percentages. us Garcia Lutz MD LAB BLOOD ORDERABLES Final Resul t [facility] [address] [place] [address] * (ABNORMAL) Comprehensive metabolic panel (10/04/2024 5:20 AM EDT) Glucose, Plasma 88 74 - 99 mg/dL 10/04/2024 6:12 AM EDT [facility] BUN, Plasma 6(L) 7 - 21 mg/dL 10/04/2024 6:12 AM EDT [facility] Creatinine, Plasma 0.97 0.60 - 1.10 mg/dL 10/04/2024 6:12 AM EDT [facility] BUN/Creatinine Ratio 6 10/04/2024 6:12 AM EDT [facility] Sodium, Plasma 139 136 - 145 mmol/L 10/04/2024 6:12 AM EDT [facility] Potassium, Plasma 4.2 3.6 - 4.9 mmol/L 10/04/2024 6:12 AM EDT [facility] Chloride, Plasma 107 97 - 107 mmol/L 10/04/2024 6:12 AM EDT [facility] CO2, Plasma 24 22 - 29 mmol/L 10/04/2024 6:12 AM EDT [facility] Anion Gap 8 6 - 16 mmol/L 10/04/2024 6:12 AM EDT [facility] Total Calcium, Plasma 9.1 8.9 - 10.2 mg/dL 10/04/2024 6:12 AM EDT [facility] Total Protein 6.1(L) 6.3 - 7.9 g/dL 10/04/2024 6:12 AM EDT [facility] Albumin, Plasma 3.1(L) 3.5 - 5.2 g/dL 10/04/2024 6:12 AM EDT [facility] AST, Plasma 51(H) 10 - 35 U/L 10/04/2024 6:12 AM EDT [facility] Comment:Hemolyzed, result ma y be falsely increased. ALT, Plasma 24 10 - 35 U/L 10/04/2024 6:12 AM EDT [facility] Alkaline Phosphatase, Plasma 70 35 - 104 U/L 10/04/2024 6:12 AM EDT [facility] Total Bilirubin, Plasma 0.9 0.2 - 1.1 mg/dL 10/04/2024 6:12 AM EDT [facility] eGFRcr 70.0 mL/min/1.7 3m*2 10/04/2024 6:12 AM EDT [facility] Comment:Reported eGFRcr in m L/min/1.73m2 is based the CKD-EPI 2020 equation that does not use a race coefficient. Blood Venous blood specimen / Unknown Venipuncture / Unknown 10/04/2024 5:20 AM EDT 10/04/2024 5:29 AM EDT us Momo Akhtar MD LAB BLOOD ORDERABLES Final Resu lt [facility] [address] [place] [address] * (ABNORMAL) Blood gas panel, venous (10/04/2024 5:20 AM EDT) pH, Venous 7.40 7.32 - 7.43 LAB HEMATOLOGY METHOD 10/04/2024 5:31 AM EDT [facility] pCO2, Venous 45 37 - 52 mmHg LAB HEMATOLOGY METHOD 10/04/2024 5:31 AM EDT [facility] pO2, Venous 82(H) 25 - 40 mmHg LAB HEMATOLOGY METHOD 10/04/2024 5:31 AM EDT [facility] SO2, Measured, Venous 98(H) 65 - 80 % LAB HEMATOLOGY METHOD 10/04/2024 5:31 AM EDT [facility] Base Excess, Venous 2.6 -2.0 - 3.0 mmol/L LAB HEMATOLOGY METHOD 10/04/2024 5:31 AM EDT [facility] Bicarbonate, Calculated, Venous 28(H) 22 - 26 mmol/L LAB HEMATOLOGY METHOD 10/04/2024 5:31 AM EDT [facility] Hematocrit, Whole Blood 36.4 34.0 - 45.0 % LAB HEMATOLOGY METHOD 10/04/2024 5:31 AM EDT [facility] Sodium, Whole Blood 141 136 - 145 mmol/L LAB HEMATOLOGY METHOD 10/04/2024 5:31 AM EDT [facility] LAB Potassium, Whole Blood 4.0 3.6 - 4.9 mmol/L LAB HEMATOLOGY METHOD 10/04/2024 5:31 AM EDT [facility] Chloride, Whole Blood 107 97 - 107 mmol/L LAB HEMATOLOGY METHOD 10/04/2024 5:31 AM EDT [facility] Glucose, Whole Blood 83 74 - 99 mg/dL LAB HEMATOLOGY METHOD 10/04/2024 5:31 AM EDT [facility] Lactate, Venous, Whole Blood 0.9 0.5 - 2.2 mmol/L LAB HEMATOLOGY METHOD 10/04/2024 5:31 AM EDT [facility] Ionized Calcium, Whole Blood 4.8 4.6 - 5.1 mg/dL LAB HEMATOLOGY METHOD 10/04/2024 5:31 AM EDT [facility] Blood Venous blood specimen / Unknown Venipuncture / Unknown 10/04/2024 5:20 AM EDT 10/04/2024 5:29 AM EDT us Garcia Lutz MD LAB BLOOD ORDERABLES Final Resul t [facility] [address] [place] [address] * CT Angio Neck (10/03/2024 1:15 AM [...] Total DLP (Dose-Length Product): 1530.27 mGy.cm (accession [id number]), 1530.27 mGy.cm (accession [id number]), 1530.27 mGy.cm (accession [id number]). Please note: The reported value represents the [...] no aneurysm of either internal carotid artery. [place] and Major Peripheral Branches: There [...] Total DLP (Dose-Length Product): 1530.27 mGy.cm (accession [id number]),1530.27 mGy.cm (accession [id number]), 1530.27 mGy.cm (accession [id number]).Please note: The reported value represents the total [...] no aneurysm of either internal carotid artery. [place] and Major Peripheral Branches: There [...] 1:15 AM EDT) Anatomical Region Laterality Modality [place] Computed Tomogr aphy Impressions 10/03/2024 [...] Total DLP (Dose-Length Product): 1530.27 mGy.cm (accession [id number]), 1530.27 mGy.cm (accession [id number]), 1530.27 mGy.cm (accession [id number]). Please note: The reported value represents the [...] no aneurysm of either internal carotid artery. [place] and Major Peripheral Branches: There [...] Total DLP (Dose-Length Product): 1530.27 mGy.cm (accession [id number]),1530.27 mGy.cm (accession [id number]), 1530.27 mGy.cm (accession [id number]).Please note: The reported value represents the total [...] no aneurysm of either internal carotid artery. [place] and Major Peripheral Branches: There [...] Total DLP (Dose-Length Product): 1530.27 mGy.cm (accession [id number]), 1530.27 mGy.cm (accession [id number]), 1530.27 mGy.cm (accession [id number]). Please note: The reported value represents the [...] no aneurysm of either internal carotid artery. [place] and Major Peripheral Branches: There [...] Total DLP (Dose-Length Product): 1530.27 mGy.cm (accession [id number]),1530.27 mGy.cm (accession [id number]), 1530.27 mGy.cm (accession [id number]).Please note: The reported value represents the total [...] no aneurysm of either internal carotid artery. [place] and Major Peripheral Branches: There [...] ECG Atrial Rate 76 BPM MUSE ECG MT Interval 168 ms MUSE ECG QRSD Interval 100 ms MUSE ECG QT Interval 412 ms MUSE ECG QTC Interval 463 ms MUSE ECG P [place] 46 degrees MUSE ECG R [place] 9 degrees MUSE ECG T Wave [place] 29 degrees MUSE ECG Diagnosis Normal sinus [...] mmol/L 10/03/2024 12:49 AM EDT [facility] LAB 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 Khang Puri 10/03/2024 12:49 AM EDT HEALTHCARE LAB Device ID [id number] 10/03/2024 12:49 AM EDT [facility] Blood, Venous Venous blood specimen / Unknown 10/03/2024 12:44 AM EDT 10/03/2024 12:49 AM EDT us Momo Akhtar MD LAB POINT OF CARE TE ST DOCKED DEVICE UNSOLICITED RESULTS Final Result Performing Organization Address City/[facility]/ZIP Co de Phone Number [facility] [address] [place] [address] * Light Blue Top (10/03/2024 12:42 AM EDT) Extra Hold for add-ons 10/03/2024 3:02 AM EDT [facility] Comment:Auto resulted. Blood Venous blood specimen / Unknown 10/03/2024 12:42 AM EDT 10/03/2024 12:46 AM EDT us Momo Akhtar MD LAB BLOOD ORDERABLES Final Resu lt Performing Organization Address [facility] Co de Phone Number [facility] [address] [place] [address] * Phosphorus, Plasma (10/03/2024 12:42 AM EDT) Phosphorus, Plasma 2.8 2.5 - 4.5 mg/dL 10/03/2024 1:15 AM EDT [facility] Blood Venous blood specimen / Unknown Venipuncture / Unknown 10/03/2024 12:42 AM EDT 10/03/2024 12:45 AM EDT us Garcia Lutz MD LAB BLOOD ORDERABLES Final Resul t Performing Organization Address City/[facility]/ZIP Co de Phone Number [facility] [address] [place] [address] * Magnesium, Plasma (10/03/2024 12:42 AM EDT) Magnesium, Plasma 2.0 1.9 - 2.4 mg/dL 10/03/2024 1:15 AM EDT [facility] Blood Venous blood specimen / Unknown Venipuncture / Unknown 10/03/2024 12:42 AM EDT 10/03/2024 12:45 AM EDT us Garcia Lutz MD LAB BLOOD ORDERABLES Final Resul t [facility] [address] [place] [address] * (ABNORMAL) CBC and Differential (10/03/2024 12:42 AM EDT) WBC Count 3.59(L) 3.70 - 10.30 10*3/uL LAB HEMATOLOGY METHOD 10/03/2024 1:32 AM EDT [facility] RBC Count 3.54(L) 3.90 - 5.20 10*6/uL LAB HEMATOLOGY METHOD 10/03/2024 1:32 AM EDT [facility] HGB 12.1 11.2 - 15.7 g/dL LAB HEMATOLOGY METHOD 10/03/2024 1:32 AM EDT [facility] HCT 34.7 34.0 - 45.0 % LAB HEMATOLOGY METHOD 10/03/2024 1:32 AM EDT [facility] Platelet Count 91(L) 155 - 369 10*3/uL LAB HEMATOLOGY METHOD 10/03/2024 1:32 AM EDT [facility] MCV 98 79 - 98 fL LAB HEMATOLOGY METHOD 10/03/2024 1:32 AM EDT [facility] MCH 34.2(H) 26.0 - 32.0 pg LAB HEMATOLOGY METHOD 10/03/2024 1:32 AM EDT [facility] MCHC 34.9 30.7 - 35.5 g/dL LAB HEMATOLOGY METHOD 10/03/2024 1:32 AM EDT [facility] RDW 13.9 11.5 - 14.5 % LAB HEMATOLOGY METHOD 10/03/2024 1:32 AM EDT [facility] MPV 9.0 8.8 - 12.5 fL LAB HEMATOLOGY METHOD 10/03/2024 1:32 AM EDT [facility] nRBC 0.0 <=0.0 per 100 WBCs LAB HEMATOLOGY METHOD 10/03/2024 1:32 AM EDT [facility] Differential Type Automated LAB HEMATOLOGY METHOD 10/03/2024 1:32 AM EDT [facility] Neutrophils % 49 % LAB HEMATOLOGY METHOD 10/03/2024 1:32 AM EDT [facility] Lymphocytes % 31 % LAB HEMATOLOGY METHOD 10/03/2024 1:32 AM EDT [facility] Monocytes % 13 % LAB HEMATOLOGY METHOD 10/03/2024 1:32 AM EDT [facility] Eosinophils % 6 % LAB HEMATOLOGY METHOD 10/03/2024 1:32 AM EDT [facility] Basophils % 1 % LAB HEMATOLOGY METHOD 10/03/2024 1:32 AM EDT [facility] Immature Granulocytes % 0 % LAB HEMATOLOGY METHOD 10/03/2024 1:32 AM EDT [facility] Neutrophils Absolute 1.76 1.60 - 6.10 10*3/uL LAB HEMATOLOGY METHOD 10/03/2024 1:32 AM EDT [facility] Lymphocytes Absolute 1.12(L) 1.20 - 3.90 10*3/uL LAB HEMATOLOGY METHOD 10/03/2024 1:32 AM EDT [facility] Monocytes Absolute 0.46 0.30 - 0.90 10*3/uL LAB HEMATOLOGY METHOD 10/03/2024 1:32 AM EDT [facility] Eosinophils Absolute 0.22 0.00 - 0.50 10*3/uL LAB HEMATOLOGY METHOD 10/03/2024 1:32 AM EDT [facility] Basophils Absolute 0.02 0.00 - 0.10 10*3/uL LAB HEMATOLOGY METHOD 10/03/2024 1:32 AM EDT [facility] Immature Granulocytes Absolute 0.01 0.00 - 0.06 10*3/uL LAB HEMATOLOGY METHOD 10/03/2024 1:32 AM EDT [facility] Blood Venous blood specimen / Unknown Venipuncture / Unknown 10/03/2024 12:42 AM EDT 10/03/2024 12:45 AM EDT Narrative [facility] - 10/03/2024 1:32 AM EDT Therapeutic decision making should be based on absolute values, rather than percentages. us Garcia Lutz MD LAB BLOOD ORDERABLES Final Resul t [facility] [address] [place] [address] * (ABNORMAL) Comprehensive metabolic panel (10/03/2024 12:42 AM EDT) Glucose, Plasma 96 74 - 99 mg/dL 10/03/2024 1:15 AM EDT [facility] BUN, Plasma 7 7 - 21 mg/dL 10/03/2024 1:15 AM EDT [facility] Creatinine, Plasma 1.13(H) 0.60 - 1.10 mg/dL 10/03/2024 1:15 AM EDT [facility] BUN/Creatinine Ratio 6 10/03/2024 1:15 AM EDT [facility] Sodium, Plasma 139 136 - 145 mmol/L 10/03/2024 1:15 AM EDT [facility] Potassium, Plasma 4.1 3.6 - 4.9 mmol/L 10/03/2024 1:15 AM EDT [facility] Chloride, Plasma 108(H) 97 - 107 mmol/L 10/03/2024 1:15 AM EDT [facility] CO2, Plasma 24 22 - 29 mmol/L 10/03/2024 1:15 AM EDT [facility] Anion Gap 7 6 - 16 mmol/L 10/03/2024 1:15 AM EDT [facility] Total Calcium, Plasma 9.3 8.9 - 10.2 mg/dL 10/03/2024 1:15 AM EDT [facility] Total Protein 6.4 6.3 - 7.9 g/dL 10/03/2024 1:15 AM EDT [facility] Albumin, Plasma 3.4(L) 3.5 - 5.2 g/dL 10/03/2024 1:15 AM EDT [facility] AST, Plasma 50(H) 10 - 35 U/L 10/03/2024 1:15 AM EDT [facility] Comment:Hemolyzed, result ma y be falsely increased. ALT, Plasma 27 10 - 35 U/L 10/03/2024 1:15 AM EDT [facility] Alkaline Phosphatase, Plasma 73 35 - 104 U/L 10/03/2024 1:15 AM EDT [facility] Total Bilirubin, Plasma 1.1 0.2 - 1.1 mg/dL 10/03/2024 1:15 AM EDT [facility] eGFRcr 58.3 mL/min/1.7 3m*2 10/03/2024 1:15 AM EDT [facility] Comment:Reported eGFRcr in m L/min/1.73m2 is based the CKD-EPI 2020 equation that does not use a race coefficient. Blood Venous blood specimen / Unknown Venipuncture / Unknown 10/03/2024 12:42 AM EDT 10/03/2024 12:45 AM EDT Momo Akhtar MD LAB BLOOD ORDERABLES Final Resu lt [facility] [address] [place] [address] * (ABNORMAL) POCT glucose meter (10/03/2024 12:24 [...] Comment 10/03/2024 12:25 AM EDT [facility] 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 Caren Maravilla 025 12:25 AM EDT [facility] Device ID [id number] 10/03/2024 12:25 AM EDT [facility] LAB Specimen Type POC Capillary 10/03/2024 12:25 AM EDT [facility] Blood Capillary blood specimen / Unknown 10/03/2024 12:24 AM EDT 10/03/2024 12:25 AM EDT Momo Akhtar MD LAB POINT OF CARE TE ST DOCKED DEVICE UNSOLICITED RESULTS Final Result Performing Organization Address [facility] de Phone Number [facility]ALTHCARE LAB [address] [place] [address] * (ABNORMAL) POCT glucose meter (10/02/2024 11:56 PM EDT) [facility] POCT Glucose 103(H) 74 - 99 mg/dL [...] Comment 10/02/2024 11:58 PM EDT [facility] LAB 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 Maisha Wright 10/02/2024 11:58 PM EDT HEALTH[facility]ARE LAB Device ID [id number] 10/02/2024 11:58 PM EDT [facility] Specimen Type POC Capillary 10/02/2024 11:58 PM EDT [facility] Blood Capillary blood specimen / Unknown 10/02/2024 11:56 PM EDT 10/02/2024 11:58 PM EDT Momo Akhtar MD LAB POINT OF CARE TE ST DOCKED DEVICE UNSOLICITED RESULTS Final Result Performing Organization Address City/[facility] Co de Phone Number [facility] [address] [place] [address] * (ABNORMAL) POCT glucose meter (10/02/2024 6:29 PM EDT) [facility] POCT Glucose 110(H) 74 - 99 mg/dL [...] Comment 10/02/2024 6:30 PM EDT [facility]ARE LAB 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 Klever Ware 10/02/2024 6:30 PM EDT [facility]ARE LAB Device ID [id number] 10/02/2024 6:30 PM EDT [facility] LAB Specimen Type POC Capillary 10/02/2024 6:30 PM EDT [facility] Blood Capillary blood specimen / Unknown 10/02/2024 6:29 PM EDT 10/02/2024 6:30 PM EDT us Momo Akhtar MD LAB POINT OF CARE TE ST DOCKED DEVICE UNSOLICITED RESULTS Final Result Performing Organization Address City/[facility] Co de Phone Number [facility]ARE LAB [address] [place] [address] * POCT glucose meter (10/02/2024 6:08 PM EDT) [facility] POCT Glucose 81 74 - 99 mg/dL [...] Comment 10/02/2024 6:09 PM EDT [facility] LAB 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 Klever Ware 10/02/2024 6:09 PM EDT [facility] LAB Device ID [id number] 10/02/2024 6:09 PM EDT [facility] Specimen Type POC Capillary 10/02/2024 6:09 PM EDT [facility] Blood Capillary blood specimen / Unknown 10/02/2024 6:08 PM EDT 10/02/2024 6:09 PM EDT us Momo Akhtar MD LAB POINT OF CARE TE ST DOCKED DEVICE UNSOLICITED RESULTS Final Result [facility] [address] [place] [address] * (ABNORMAL) POCT glucose meter (10/02/2024 12:16 PM EDT) [facility] POCT Glucose 139(H) 74 - 99 mg/dL [...] 10/02/2024 12:18 PM EDT [facility] 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 OliveiraTory 10/03/19 12:18 PM EDT [facility] Device ID [id number] 10/02/2024 12:18 PM EDT [facility] Specimen Type POC Capillary 10/02/2024 12:18 PM EDT [facility] LAB Blood Capillary blood specimen / Unknown 10/02/2024 12:16 PM EDT 10/02/2024 12:18 PM EDT Momo Akhtar MD LAB POINT OF CARE TE ST DOCKED DEVICE UNSOLICITED RESULTS Final Result [facility] [address] [place] [address] * (ABNORMAL) POCT glucose meter (10/02/2024 6:16 AM EDT) [facility] POCT Glucose 111(H) 74 - 99 mg/dL [...] 10/02/2024 6:17 AM EDT [facility] 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 Caren Maravilla 6:17 AM EDT [facility] Device ID [id number] 10/02/2024 6:17 AM EDT [facility] LAB Specimen Type POC Capillary 10/02/2024 6:17 AM EDT [facility] Blood Capillary blood specimen / Unknown 10/02/2024 6:16 AM EDT 10/02/2024 6:17 AM EDT Momo Akhtar MD LAB POINT OF CARE TE ST DOCKED DEVICE UNSOLICITED RESULTS Final Result Performing Organization Address City/[facility] de Phone Number [facility]ARE LAB [address] [place] [address] * POCT glucose meter (10/02/2024 5:37 AM [...] Comment 10/02/2024 5:38 AM EDT [facility]ARE LAB 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 Maisha Wright 10/02/2024 5:38 AM EDT [facility] Device ID [id number] 10/02/2024 5:38 AM EDT HEALTH[facility]ARE LAB Specimen Type POC Capillary 10/02/2024 5:38 AM EDT [facility] LAB Blood Capillary blood specimen / Unknown 10/02/2024 5:37 AM EDT 10/02/2024 5:38 AM EDT us Momo Akhtar MD LAB POINT OF CARE TE ST DOCKED DEVICE UNSOLICITED RESULTS Final Result Performing Organization Address City/[facility] Co de Phone Number [facility] [address] [place] [address] * POCT glucose meter (10/02/2024 1:03 AM [...] 10/02/2024 1:04 AM EDT [facility] 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 Caren Maravilla 025 1:04 AM EDT [facility] Device ID [id number] 10/02/2024 1:04 AM EDT [facility] Specimen Type POC Capillary 10/02/2024 1:04 AM EDT [facility] Blood Capillary blood specimen / Unknown 10/02/2024 1:03 AM EDT 10/02/2024 1:04 AM EDT Momo Akhtar MD LAB POINT OF CARE TE ST DOCKED DEVICE UNSOLICITED RESULTS Final Result Performing Organization Address City/State/[facility] Co de Phone Number [facility] [address] [place] [address] * (ABNORMAL) POCT glucose meter (10/02/2024 12:27 AM EDT) [facility] Signature POCT Glucose 131(H) 74 - 99 [...] 10/02/2024 12:29 AM EDT [facility] 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 Caren Maravilla 025 12:29 AM EDT [facility] Device ID [id number] 10/02/2024 12:29 AM EDT [facility] Specimen Type POC Capillary 10/02/2024 12:29 AM EDT [facility] Blood Capillary blood specimen / Unknown 10/02/2024 12:27 AM EDT 10/02/2024 12:29 AM EDT Momo Akhtar MD LAB POINT OF CARE TE ST DOCKED DEVICE UNSOLICITED RESULTS Final Result Performing Organization Address [facility] Co de Phone Number [facility] [address] [place] [address] * (ABNORMAL) POCT glucose meter (10/02/2024 12:02 [...] Comment 10/02/2024 12:05 AM EDT [facility] LAB 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 [email or web address] dey 10/02/2024 12:05 AM EDT HEALTH[facility]ARE LAB Device ID [id number] 10/02/2024 12:05 AM EDT [facility]ARE LAB Specimen Type POC Capillary 10/02/2024 12:05 AM EDT [facility] Blood Capillary blood specimen / Unknown 10/02/2024 12:02 AM EDT 10/02/2024 12:05 AM EDT Momo Akhtar MD LAB POINT OF CARE TE ST DOCKED DEVICE UNSOLICITED RESULTS Final Result Performing Organization Address City/[facility] Co de Phone Number [facility] [address] [place] [address] * (ABNORMAL) CBC W/O Differential (10/01/2024 5:50 PM EDT) WBC Count 3.20(L) 3.70 - 10.30 10*3/uL LAB HEMATOLOGY METHOD 10/01/2024 6:15 PM EDT [facility] RBC Count 3.83(L) 3.90 - 5.20 10*6/uL LAB HEMATOLOGY METHOD 10/01/2024 6:15 PM EDT [facility] HGB 13.1 11.2 - 15.7 g/dL LAB HEMATOLOGY METHOD 10/01/2024 6:15 PM EDT [facility] HCT 37.2 34.0 - 45.0 % LAB HEMATOLOGY METHOD 10/01/2024 6:15 PM EDT [facility] Platelet Count 100(L) 155 - 369 10*3/uL LAB HEMATOLOGY METHOD 10/01/2024 6:15 PM EDT [facility] MCV 97 79 - 98 fL LAB HEMATOLOGY METHOD 10/01/2024 6:15 PM EDT [facility] MCH 34.2(H) 26.0 - 32.0 pg LAB HEMATOLOGY METHOD 10/01/2024 6:15 PM EDT [facility] MCHC 35.2 30.7 - 35.5 g/dL LAB HEMATOLOGY METHOD 10/01/2024 6:15 PM EDT [facility] RDW 14.0 11.5 - 14.5 % LAB HEMATOLOGY METHOD 10/01/2024 6:15 PM EDT [facility] MPV 8.4(L) 8.8 - 12.5 fL LAB HEMATOLOGY METHOD 10/01/2024 6:15 PM EDT [facility] nRBC 0.0 <=0.0 per 100 WBCs LAB HEMATOLOGY METHOD 10/01/2024 6:15 PM EDT [facility] Blood Venous blood specimen / Unknown Venipuncture / Unknown 10/01/2024 5:50 PM EDT 10/01/2024 5:58 PM EDT us Momo Akhtar MD LAB BLOOD ORDERABLES Final Resu lt [facility] [address] [place] [address] * (ABNORMAL) Comprehensive metabolic panel (10/01/2024 5:50 PM EDT) [facility] Glucose, Plasma 83 74 - 99 mg/dL 10/01/2024 6:27 PM EDT [facility] BUN, Plasma 11 7 - 21 mg/dL 10/01/2024 6:27 PM EDT [facility] Creatinine, Plasma 1.17(H) 0.60 - 1.10 mg/dL 10/01/2024 6:27 PM EDT [facility] BUN/Creatinine Ratio 9 10/01/2024 6:27 PM EDT [facility] Sodium, Plasma 139 136 - 145 mmol/L 10/01/2024 6:27 PM EDT [facility] Potassium, Plasma 4.3 3.6 - 4.9 mmol/L 10/01/2024 6:27 PM EDT [facility] Chloride, Plasma 107 97 - 107 mmol/L 10/01/2024 6:27 PM EDT [facility] CO2, Plasma 22 22 - 29 mmol/L 10/01/2024 6:27 PM EDT [facility] Anion Gap 10 6 - 16 mmol/L 10/01/2024 6:27 PM EDT [facility] Total Calcium, Plasma 9.4 8.9 - 10.2 mg/dL 10/01/2024 6:27 PM EDT [facility] Total Protein 6.6 6.3 - 7.9 g/dL 10/01/2024 6:27 PM EDT [facility] Albumin, Plasma 3.6 3.5 - 5.2 g/dL 10/01/2024 6:27 PM EDT [facility] AST, Plasma 46(H) 10 - 35 U/L 10/01/2024 6:27 PM EDT [facility] ALT, Plasma 24 10 - 35 U/L 10/01/2024 6:27 PM EDT [facility] Alkaline Phosphatase, Plasma 75 35 - 104 U/L 10/01/2024 6:27 PM EDT [facility] Total Bilirubin, Plasma 1.3(H) 0.2 - 1.1 mg/dL 10/01/2024 6:27 PM EDT [facility] eGFRcr 55.9 mL/min/1.7 3m*2 10/01/2024 6:27 PM EDT [facility] Comment:Reported eGFRcr in m L/min/1.73m2 is based the CKD-EPI 2020 equation that does not use a race coefficient. Blood Venous blood specimen / Unknown Venipuncture / Unknown 10/01/2024 5:50 PM EDT 10/01/2024 5:58 PM EDT Momo Akhtar MD LAB BLOOD ORDERABLES Final Resu lt Performing Organization Address [facility]/ZIP Co de Phone Number [facility] [address] [place] [address] * Multi Drug Resistance Test (10/01/2024 11:36 AM EDT) Pathologist [facility] Culture No growth at day 1 10/02/2024 1:51 PM EDT [facility] Swab (Nares and Dorys Rectal) Non-blood Collection / Unknown 10/01/2024 11:36 AM EDT 10/01/2024 11:45 AM EDT Narrative [facility] - 10/02/2024 1:51 PM EDT This test was developed and its performance characteristics determined by the [facility]. Although the media is FDA-approved, it is not FDA-approved for all specimen types submitted. The FDA has determined that such clearance or approval is not necessary. This test is used for surveillance purposes. It should not be regarded as investigational or for research. The [facility] is certified under the Clinical Laboratory Improvement Amendments of 1988 (CLIA-88) as qualified to perform high complexity clinical laboratory testing. Momo Akhtar MD LAB MICROBIOLOGY - GENERAL ORDE [facility] Final Result Performing Organization Address [facility] Co de Phone Number [facility] [address] [place] [address] * (ABNORMAL) POCT glucose meter (10/01/2024 11:32 AM EDT) [facility] POCT Glucose 103(H) 74 - 99 mg/dL 10/01/2024 11:34 AM EDT [facility] Comment:Accuracy of a glucos e result [...] 10/01/2024 11:34 AM EDT [facility] 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 Yvette Almazan 10/01/2024 11:34 AM EDT [facility] Device ID [id number] 10/01/2024 11:34 AM EDT [facility] Specimen Type POC Capillary 10/01/2024 11:34 AM EDT [facility]ALTH[facility] LAB Blood Capillary blood specimen / Unknown 10/01/2024 11:32 AM EDT 10/01/2024 11:34 AM EDT Momo Akhtar MD LAB POINT OF CARE TE ST DOCKED DEVICE UNSOLICITED RESULTS Final Result Performing Organization Address City/[facility]/ZIP Co de Phone Number [facility] [address] [place] [address] * (ABNORMAL) POCT glucose meter (10/01/2024 8:35 AM EDT) Pathologist [facility] POCT Glucose 138(H) 74 - 99 mg/dL [...] 10/01/2024 8:36 AM EDT [facility] 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 Yvette Almazan 10/01/2024 8:36 AM EDT [facility] Device ID [id number] 10/01/2024 8:36 AM EDT [facility]ALTH[facility]ARE LAB Specimen Type POC Capillary 10/01/2024 8:36 AM EDT [facility] Blood Capillary blood specimen / Unknown 10/01/2024 8:35 AM EDT 10/01/2024 8:36 AM EDT us Momo Akhtar MD LAB POINT OF CARE TE ST DOCKED DEVICE UNSOLICITED RESULTS Final Result Performing Organization Address City/[facility]/ZIP Co de Phone Number [facility] [address] [place] [address] * POCT glucose meter (10/01/2024 7:57 AM [...] 10/01/2024 7:58 AM EDT [facility] 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 Erika Joya 10/01/2024 7:58 AM EDT [facility] Device ID [id number] 10/01/2024 7:58 AM EDT [facility] Specimen Type POC Capillary 10/01/2024 7:58 AM EDT [facility] Blood Capillary blood specimen / Unknown 10/01/2024 7:57 AM EDT 10/01/2024 7:58 AM EDT Momo Akhtar MD LAB POINT OF CARE TE ST DOCKED DEVICE UNSOLICITED RESULTS Final Result [facility] [address] [place] [address] * POCT glucose meter (10/01/2024 6:13 AM EDT) [facility] POCT Glucose 85 74 - 99 mg/dL [...] 10/01/2024 6:15 AM EDT [facility] 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 Cristian Kent 10/01/2024 6:15 AM EDT [facility] Device ID [id number] 10/01/2024 6:15 AM EDT [facility] Specimen Type POC Capillary 10/01/2024 6:15 AM EDT [facility] Blood Capillary blood specimen / Unknown 10/01/2024 6:13 AM EDT 10/01/2024 6:15 AM EDT Rosetta Matthews MD LAB POINT OF CARE TE ST DOCKED DEVICE UNSOLICITED RESULTS Final Result Performing Organization Address City/[facility]/ZIP Co de Phone Number [facility] [address] [place] [address] * Folate (10/01/2024 5:53 AM EDT) Folate, Serum 9.7 >4.6 ng/mL 10/01/2024 6:50 AM EDT [facility] Blood Venous blood specimen / Unknown Venipuncture / Unknown 10/01/2024 5:53 AM EDT 10/01/2024 6:06 AM EDT Leon Ramirez AUTOMOTIVE PARTS INTERPRETER, DNP LAB BLOOD ORDERABLES Fi nal Result Performing Organization Address [facility] Co de Phone Number [facility] [address] [place] [address] * Zinc (10/01/2024 4:40 AM EDT) Zinc, Serum/Plasma 62.6 60.0 - 120.0 ug/dL 10/03/2024 5:03 AM EDT [facility] ([place]) Blood Venous blood specimen / Unknown Venipuncture / Unknown 10/01/2024 4:40 AM EDT 10/01/2024 5:01 AM EDT Narrative [facility] ([place]) - 10/03/2024 5:03 AM EDT [...] developed and its performance characteristics determined by [employer]. It has not been cleared or approved by the US Food and Drug Administration. This test was performed in a CLIA certified laboratory and is intended for clinical purposes. Performed By: [facility] [address] [place] [address] City Surveyor: Darryl Corado MD, PhD CLIA Number: [id number] Leon Ramirez AUTOMOTIVE PARTS INTERPRETER, DNP LAB BLOOD ORDERABLES Fi nal Result [facility] ([place]) [address] [place] [address] * (ABNORMAL) CBC and differential (10/01/2024 3:52 AM EDT) WBC Count 4.21 3.70 - 10.30 10*3/uL LAB HEMATOLOGY METHOD 10/01/2024 4:18 AM EDT [facility] RBC Count 4.08 3.90 - 5.20 10*6/uL LAB HEMATOLOGY METHOD 10/01/2024 4:18 AM EDT [facility] HGB 13.8 11.2 - 15.7 g/dL LAB HEMATOLOGY METHOD 10/01/2024 4:18 AM EDT [facility] HCT 39.9 34.0 - 45.0 % LAB HEMATOLOGY METHOD 10/01/2024 4:18 AM EDT [facility] Platelet Count 106(L) 155 - 369 10*3/uL LAB HEMATOLOGY METHOD 10/01/2024 4:18 AM EDT [facility] MCV 98 79 - 98 fL LAB HEMATOLOGY METHOD 10/01/2024 4:18 AM EDT [facility] MCH 33.8(H) 26.0 - 32.0 pg LAB HEMATOLOGY METHOD 10/01/2024 4:18 AM EDT [facility] MCHC 34.6 30.7 - 35.5 g/dL LAB HEMATOLOGY METHOD 10/01/2024 4:18 AM EDT [facility] RDW 13.9 11.5 - 14.5 % LAB HEMATOLOGY METHOD 10/01/2024 4:18 AM EDT [facility] MPV 8.4(L) 8.8 - 12.5 fL LAB HEMATOLOGY METHOD 10/01/2024 4:18 AM EDT [facility] nRBC 0.0 <=0.0 per 100 WBCs LAB HEMATOLOGY METHOD 10/01/2024 4:18 AM EDT [facility] Differential Type Automated LAB HEMATOLOGY METHOD 10/01/2024 4:18 AM EDT [facility] Neutrophils % 58 % LAB HEMATOLOGY METHOD 10/01/2024 4:18 AM EDT [facility] Lymphocytes % 20 % LAB HEMATOLOGY METHOD 10/01/2024 4:18 AM EDT [facility] Monocytes % 13 % LAB HEMATOLOGY METHOD 10/01/2024 4:18 AM EDT [facility] Eosinophils % 7 % LAB HEMATOLOGY METHOD 10/01/2024 4:18 AM EDT [facility] Basophils % 1 % LAB HEMATOLOGY METHOD 10/01/2024 4:18 AM EDT [facility] Immature Granulocytes % 1 % LAB HEMATOLOGY METHOD 10/01/2024 4:18 AM EDT [facility] Neutrophils Absolute 2.49 1.60 - 6.10 10*3/uL LAB HEMATOLOGY METHOD 10/01/2024 4:18 AM EDT [facility] Lymphocytes Absolute 0.85(L) 1.20 - 3.90 10*3/uL LAB HEMATOLOGY METHOD 10/01/2024 4:18 AM EDT [facility] Monocytes Absolute 0.53 0.30 - 0.90 10*3/uL LAB HEMATOLOGY METHOD 10/01/2024 4:18 AM EDT [facility] Eosinophils Absolute 0.28 0.00 - 0.50 10*3/uL LAB HEMATOLOGY METHOD 10/01/2024 4:18 AM EDT [facility] Basophils Absolute 0.04 0.00 - 0.10 10*3/uL LAB HEMATOLOGY METHOD 10/01/2024 4:18 AM EDT [facility] Immature Granulocytes Absolute 0.02 0.00 - 0.06 10*3/uL LAB HEMATOLOGY METHOD 10/01/2024 4:18 AM EDT [facility] Blood Venous blood specimen / Unknown Venipuncture / Unknown 10/01/2024 3:52 AM EDT 10/01/2024 4:10 AM EDT [facility] - 10/01/2024 4:18 AM EDT Therapeutic decision making should be based on absolute values, rather than percentages. Leon Ramirez APRN, DNP LAB BLOOD ORDERABLES Fi nal Result Performing Organization Address [facility] Co de Phone Number [facility] [address] [place] [address] * Alcohol Urine (10/01/2024 2:50 AM EDT) Alcohol Urine Negative Negative 10/01/2024 5:40 AM EDT [facility] Urine Urine specimen obtained by clean catch procedure / Unknown Non-blood Collection / Unknown 10/01/2024 2:50 AM EDT 10/01/2024 3:04 AM EDT Narrative [facility] - 10/01/2024 5:40 AM EDT The correlation between urine and serum ethanol concentration is highly variable. Test performed by Gas Chromatography at the [facility]. This test was developed and its performance characteristics determined by [facility]. It has not been cleared or approved by the FDA.The laboratory is regulated under CLIA as qualified to perform high-complexity testing. This test is used for clinical purposes only. Leon Ramirez APRN, DNP LAB URINE ORDERABLES Fi nal Result Performing Organization Address [facility] [place] [address] * Blood Culture (Aerobic/Anaerobet Set) (10/01/2024 12:40 AM EDT) Culture No growth at day 5 10/06/2024 2:02 AM EDT [facility] Blood Venous blood specimen / Unknown Venipuncture / Unknown 10/01/2024 12:40 AM EDT 10/01/2024 1:46 AM EDT Narrative [facility] - 10/06/2024 2:02 AM EDT Low blood volume submitted, results may be compromised Leon Ramirez APRN, OLVIN LAB MICROBIOLOGY - [facility]AL ORDERABLES Final Result Performing Organization Address City/[facility] Co de Phone Number [facility] [address] [place] [address] * Vitamin B12 (09/30/2024 10:22 PM EDT) Pathologist [facility] Vitamin B12, Serum 607 210 - 1,033 pg/mL 09/30/2024 11:19 PM EDT [facility] Blood Venous blood specimen / Unknown Venipuncture / Unknown 09/30/2024 10:22 PM EDT 09/30/2024 10:34 PM EDT Leon W Ceci ANNN, DNP LAB BLOOD ORDERABLES Fi nal Result [facility] [address] [place] [address] * Hepatitis panel, acute (09/30/2024 10:22 PM EDT) Pathologist [facility] Hepatitis B Surf Antigen Negative Negative 10/01/2024 12:57 AM EDT [facility] Hepatitis A Antibody IgM Negative Negative 10/01/2024 12:57 AM EDT [facility] Hepatitis B Core Antibody IgM Negative Negative 10/01/2024 12:57 AM EDT [facility] Blood Venous blood specimen / Unknown Venipuncture / Unknown 09/30/2024 10:22 PM EDT 09/30/2024 10:34 PM EDT Narrative [facility] - 10/01/2024 12:57 AM EDT Hepatitis C Antibody previously reported on patient within 24hrs and will not be repeated on this panel. See previous results below: Hepatitis C Antibody Date Value Ref Range Status 09/30/2024 Negative Negative Final Leon W Ceci AUTOMOTIVE PARTS INTERPRETER, DNP LAB BLOOD [place] [address] * Cortisol (09/30/2024 10:22 PM EDT) Pathologist [facility] Cortisol 3.70 Before 10am: 3.7 - 19.4. After 5pm: 2.9 - 17.3 ug/dL 09/30/2024 11:59 PM EDT [facility] Comment:Testing performed on [employer], standardized against PRISON Reference Standard concentration values assigned by LC-MS/MS and verified by BCR 192 and BCR 193 certified reference materials. Blood Venous blood specimen / Unknown Venipuncture / Unknown 09/30/2024 10:22 PM EDT 09/30/2024 10:35 PM EDT Leon Ramirez APRN, DNP LAB REF LAB BLOOD AND F LUID ORD Final Result Performing Organization Address [facility]/ZIP Co de Phone Number [facility] [address] [place] [address] * Alpha Fetoprotein, Serum (09/30/2024 10:22 PM EDT) Alpha Fetoprotein, Serum <2.3 <10.0 ng/mL 09/30/2024 11:58 PM EDT [facility] Blood Venous blood specimen / Unknown Venipuncture / Unknown 09/30/2024 10:22 PM EDT 09/30/2024 10:34 PM EDT Narrative [facility] - 09/30/2024 11:58 PM EDT Performed by Bruce electrochemiluminescent immunoassay which is traceable to the 1st AFP IRP WHO Reference standard 72/255. Results obtained with different test methods or kits cannot be used interchangeably. Leon Ramirez APRN, DNP LAB BLOOD ORDERABLES Fi nal Result Performing Organization Address City/[facility]/ZIP Co de Phone Number [facility] [address] [place] [address] * Ferritin (09/30/2024 10:22 PM EDT) Ferritin, Serum 81 13 - 150 ng/mL 09/30/2024 11:19 PM EDT [facility] Blood Venous blood specimen / Unknown Venipuncture / Unknown 09/30/2024 10:22 PM EDT 09/30/2024 10:34 PM EDT Leon Ramirez APRN, DNP LAB BLOOD ORDERABLES Fi nal Result Performing Organization Address City/[facility]/ZIP Co de Phone Number [facility] [address] [place] [address] * Vitamin D 1,25 dihydroxy (09/30/2024 10:22 PM EDT) VITAMIN D, 1, 25-DIHYDROXY 41.0 19.9 - 79.3 pg/mL 10/01/2024 1:49 PM EDT [facility] Blood Venous blood specimen / Unknown Venipuncture / Unknown 09/30/2024 10:22 PM EDT 09/30/2024 10:35 PM EDT Leon Ceci T[place]O, OLVIN LAB BLOOD ORDERABLES Fi nal Result Performing Organization Address [facility] [place] [address] * (ABNORMAL) Oxcarbazepine Metabolite, Serum (SO) (09/30/2024 10:22 PM EDT) OXCARB Metabolite 5.6(L) 10.0 - 35.0 ug/mL 10/03/2024 3:14 PM EDT [facility]) Blood Venous blood specimen / Unknown Venipuncture / Unknown 09/30/2024 10:22 PM EDT 09/30/2024 10:43 PM EDT Narrative [facility]) - 10/03/2024 3:14 PM EDT INTERPRETIVE INFORMATION: Oxcarbazepine Metabolite, Serum Therapeutic Range: 10.0 - 35.0 ug/mL Toxic Range: >=40.0 ug/mL This test measures monohydroxyoxcarbazepine (MHD). Adverse effects may include dizziness, fatigue, nausea, headache, somnolence, ataxia, and tremor. Performed By: [employer] [address] [place] [id number] City Surveyor: Darryl Corado MD, PhD CLIA Number: [id number] Leon W Mingua AUTOMOTIVE PARTS INTERPRETER, DNP LAB REF LAB BLOOD AND F LUID ORD Final Result [facility] ([facility]) [address] [place] [address] * Phosphorus (09/30/2024 10:22 PM EDT) Phosphorus, Plasma 3.5 2.5 - 4.5 mg/dL 09/30/2024 10:52 PM EDT [facility] Blood Venous blood specimen / Unknown Venipuncture / Unknown 09/30/2024 10:22 PM EDT 09/30/2024 10:24 PM EDT Leon Ramirez APRN, DNP LAB BLOOD ORDERABLES Fi nal Result Performing Organization Address City/[facility]/ZIP Co de Phone Number [facility] [address] [place] [address] * Magnesium, Plasma (09/30/2024 10:22 PM EDT) Magnesium, Plasma 2.2 1.9 - 2.4 mg/dL 09/30/2024 10:52 PM EDT [facility] Blood Venous blood specimen / Unknown Venipuncture / Unknown 09/30/2024 10:22 PM EDT 09/30/2024 10:24 PM EDT Leon Ramirez APRN, DNP LAB BLOOD ORDERABLES Fi nal Result Performing Organization Address City/[facility]/ZIP Co de Phone Number [facility] [address] [place] [address] * (ABNORMAL) Comprehensive metabolic panel (09/30/2024 10:22 PM EDT) Glucose, Plasma 77 74 - 99 mg/dL 09/30/2024 10:52 PM EDT [facility] BUN, Plasma 13 7 - 21 mg/dL 09/30/2024 10:52 PM EDT [facility] Creatinine, Plasma 1.28(H) 0.60 - 1.10 mg/dL 09/30/2024 10:52 PM EDT [facility] BUN/Creatinine Ratio 10 09/30/2024 10:52 PM EDT [facility] Sodium, Plasma 143 136 - 145 mmol/L 09/30/2024 10:52 PM EDT [facility] Potassium, Plasma 4.4 3.6 - 4.9 mmol/L 09/30/2024 10:52 PM EDT [facility] Chloride, Plasma 110(H) 97 - 107 mmol/L 09/30/2024 10:52 PM EDT [facility] CO2, Plasma 22 22 - 29 mmol/L 09/30/2024 10:52 PM EDT [facility] Anion Gap 11 6 - 16 mmol/L 09/30/2024 10:52 PM EDT [facility] Total Calcium, Plasma 9.5 8.9 - 10.2 mg/dL 09/30/2024 10:52 PM EDT [facility] Total Protein 6.9 6.3 - 7.9 g/dL 09/30/2024 10:52 PM EDT [facility] Albumin, Plasma 3.7 3.5 - 5.2 g/dL 09/30/2024 10:52 PM EDT [facility] AST, Plasma 49(H) 10 - 35 U/L 09/30/2024 10:52 PM EDT [facility] Comment:Hemolyzed, result ma y be falsely increased. ALT, Plasma 25 10 - 35 U/L 09/30/2024 10:52 PM EDT [facility] Alkaline Phosphatase, Plasma 70 35 - 104 U/L 09/30/2024 10:52 PM EDT [facility] Total Bilirubin, Plasma 0.9 0.2 - 1.1 mg/dL 09/30/2024 10:52 PM EDT [facility] eGFRcr 50.2 mL/min/1.7 3m*2 09/30/2024 10:52 PM EDT [facility] Comment:Reported eGFRcr in m L/min/1.73m2 is based the CKD-EPI 2020 equation that does not use a race coefficient. Blood Venous blood specimen / Unknown Venipuncture / Unknown 09/30/2024 10:22 PM EDT 09/30/2024 10:24 PM EDT us Leon Ramirez AUTOMOTIVE PARTS INTERPRETER, DNP LAB BLOOD ORDERABLES Fi nal Result [facility] [address] [place] [address] * (ABNORMAL) CBC and Differential (09/30/2024 10:22 PM EDT) WBC Count 2.98(L) 3.70 - 10.30 10*3/uL LAB HEMATOLOGY METHOD 09/30/2024 10:33 PM EDT [facility] RBC Count 3.96 3.90 - 5.20 10*6/uL LAB HEMATOLOGY METHOD 09/30/2024 10:33 PM EDT [facility] HGB 13.3 11.2 - 15.7 g/dL LAB HEMATOLOGY METHOD 09/30/2024 10:33 PM EDT [facility] HCT 38.5 34.0 - 45.0 % LAB HEMATOLOGY METHOD 09/30/2024 10:33 PM EDT [facility] Platelet Count 107(L) 155 - 369 10*3/uL LAB HEMATOLOGY METHOD 09/30/2024 10:33 PM EDT [facility] MCV 97 79 - 98 fL LAB HEMATOLOGY METHOD 09/30/2024 10:33 PM EDT [facility] MCH 33.6(H) 26.0 - 32.0 pg LAB HEMATOLOGY METHOD 09/30/2024 10:33 PM EDT [facility] MCHC 34.5 30.7 - 35.5 g/dL LAB HEMATOLOGY METHOD 09/30/2024 10:33 PM EDT [facility] RDW 13.7 11.5 - 14.5 % LAB HEMATOLOGY METHOD 09/30/2024 10:33 PM EDT [facility] MPV 8.3(L) 8.8 - 12.5 fL LAB HEMATOLOGY METHOD 09/30/2024 10:33 PM EDT [facility] nRBC 0.0 <=0.0 per 100 WBCs LAB HEMATOLOGY METHOD 09/30/2024 10:33 PM EDT [facility] Differential Type Automated LAB HEMATOLOGY METHOD 09/30/2024 10:33 PM EDT [facility] Neutrophils % 62 % LAB HEMATOLOGY METHOD 09/30/2024 10:33 PM EDT [facility] Lymphocytes % 19 % LAB HEMATOLOGY METHOD 09/30/2024 10:33 PM EDT [facility] Monocytes % 11 % LAB HEMATOLOGY METHOD 09/30/2024 10:33 PM EDT [facility] Eosinophils % 6 % LAB HEMATOLOGY METHOD 09/30/2024 10:33 PM EDT [facility] Basophils % 1 % LAB HEMATOLOGY METHOD 09/30/2024 10:33 PM EDT [facility] Immature Granulocytes % 1 % LAB HEMATOLOGY METHOD 09/30/2024 10:33 PM EDT [facility] Neutrophils Absolute 1.88 1.60 - 6.10 10*3/uL LAB HEMATOLOGY METHOD 09/30/2024 10:33 PM EDT [facility] Lymphocytes Absolute 0.57(L) 1.20 - 3.90 10*3/uL LAB HEMATOLOGY METHOD 09/30/2024 10:33 PM EDT [facility] Monocytes Absolute 0.32 0.30 - 0.90 10*3/uL LAB HEMATOLOGY METHOD 09/30/2024 10:33 PM EDT [facility] Eosinophils Absolute 0.17 0.00 - 0.50 10*3/uL LAB HEMATOLOGY METHOD 09/30/2024 10:33 PM EDT [facility] Basophils Absolute 0.02 0.00 - 0.10 10*3/uL LAB HEMATOLOGY METHOD 09/30/2024 10:33 PM EDT [facility] Immature Granulocytes Absolute 0.02 0.00 - 0.06 10*3/uL LAB HEMATOLOGY METHOD 09/30/2024 10:33 PM EDT [facility] Blood Venous blood specimen / Unknown Venipuncture / Unknown 09/30/2024 10:22 PM EDT 09/30/2024 10:24 PM EDT Narrative [facility] - 09/30/2024 10:33 PM EDT Therapeutic decision making should be based on absolute values, rather than percentages. us Leon W Mingua AUTOMOTIVE PARTS INTERPRETER, DNP LAB BLOOD ORDERABLES Fi nal Result [facility] [address] [place] [address] * Creatinine, urine, random (09/30/2024 10:12 PM EDT) Creatinine, Urine 71 mg/dL 09/30/2024 11:06 PM EDT [facility] Urine Urine specimen obtained by clean catch procedure / Unknown Non-blood Collection / Unknown 09/30/2024 10:12 PM EDT 09/30/2024 10:35 PM EDT Leon Ramirez APRN, DNP LAB URINE ORDERABLES Fi nal Result [facility] [address] [place] [address] * Osmolality, urine (09/30/2024 10:12 PM EDT) Osmolality, Urine 357 50 - 1,200 mOsm/kg 09/30/2024 11:14 PM EDT [facility] Urine Urine specimen obtained by clean catch procedure / Unknown Non-blood Collection / Unknown 09/30/2024 10:12 PM EDT 09/30/2024 10:35 PM EDT Leon Ramirez APRN, DNP LAB URINE ORDERABLES Fi nal Result Performing Organization Address City/[facility]/ZIP Co de Phone Number [facility] [address] [place] [address] * Sodium, urine, random (09/30/2024 10:12 PM EDT) Sodium, Urine 67 mmol/L 09/30/2024 11:06 PM EDT [facility] Urine Urine specimen obtained by clean catch procedure / Unknown Non-blood Collection / Unknown 09/30/2024 10:12 PM EDT 09/30/2024 10:35 PM EDT Leon Ramirez APRN, DNP LAB URINE ORDERABLES Fi nal Result Performing Organization Address City/[facility]/ZIP Co de Phone Number [facility] [address] [place] [address] * Nasopharyngeal Respiratory Panel (09/30/2024 10:09 PM EDT) Pathologist [facility] Nasopharyngeal Respiratory PCR Interpretation Not Detected for all analytes Not Detected for all analytes 10/01/2024 12:42 AM EDT [facility] Swab Nasopharyngeal structure / Unknown Non-blood Collection / Unknown 09/30/2024 10:09 PM EDT 09/30/2024 10:41 PM EDT Narrative [facility] - 10/01/2024 12:42 AM [...] Respiratory PCR Panel is performed using the [employer] ePlex instrument. This test is FDA approved for use with Nasopharyngeal swabs only. This test is used for clinical purposes. It should not be regarded as investigational or for research. The [facility] Clinical Microbiology Laboratory is certified under the Clinical Laboratory Improvement Amendments of 1988 (CLIA-88) as qualified to perform high complexity clinical laboratory testing. Leon Ramirez APRN, OLVIN LAB MICROBIOLOGY - [facility] ORDERABLES Final Result [facility] [address] [place] [address] * SARS CoV-2/COVID-19 by PCR - Rapid (09/30/2024 10:09 PM EDT) Pathologist [facility] SARS CoV-2/COVID-1 9 RNA PCR Result Not Detected Not Detected 09/30/2024 11:37 PM EDT [facility] Swab Nasopharyngeal structure / Unknown Non-blood Collection / Unknown 09/30/2024 10:09 PM EDT 09/30/2024 10:41 PM EDT Narrative [facility] - 09/30/2024 11:37 PM [...] MICROBIOLOGY - [facility]ENE [facility]AL ORDERABLES Final Result [facility] [address] [place] [address] * US Abdomen Doppler Limited (09/30/2024 9:44 [...] MD on 09/30/2024 9:48 PM Leon Ramirez AUTOMOTIVE PARTS INTERPRETER, DNP IMG US PROCEDURES Final Result * Urinalysis Microscopic Examination (09/30/2024 6:44 PM EDT) Urine Urine specimen obtained by clean catch procedure / Unknown Non-blood Collection / Unknown 09/30/2024 6:44 PM EDT 09/30/2024 6:56 PM EDT Zack Teran MD LAB URINE ORDERABLES Final Re sult Performing Organization Address City/[facility]/ZIP Co de Phone Number [facility] [address] [place] [address] * Urine Garcia Panel (09/30/2024 6:44 PM EDT) Extra Reflex urine culture not indicated 09/30/2024 9:01 PM EDT [facility] Urine Urine specimen obtained by clean catch procedure / Unknown Non-blood Collection / Unknown 09/30/2024 6:44 PM EDT 09/30/2024 7:09 PM EDT Zack Teran MD LAB URINE ORDERABLES Final Re sult [facility] [address] [place] [address] * (ABNORMAL) Urinalysis with reflex microscopic (Culture NOT Included) (09/30/2024 6:44 PM EDT) Color, Urine Yellow LAB URINALYSIS - AUTOMATED METHOD 09/30/2024 7:19 PM EDT [facility] Clarity, Urine Clear LAB URINALYSIS - AUTOMATED METHOD 09/30/2024 7:19 PM EDT [facility] Spec Severy, Urine >1.030(H) 1.005 - 1.030 LAB URINALYSIS - AUTOMATED METHOD 09/30/2024 7:19 PM EDT [facility] pH, Urine 7.0 5.0 - 8.0 LAB URINALYSIS - AUTOMATED METHOD 09/30/2024 7:19 PM EDT [facility] Protein, Urine Negative Negative mg/dL LAB URINALYSIS - AUTOMATED METHOD 09/30/2024 7:19 PM EDT [facility] Glucose, Urine Negative Negative mg/dL LAB URINALYSIS - AUTOMATED METHOD 09/30/2024 7:19 PM EDT [facility] Ketones, Urine Negative Negative mg/dL LAB URINALYSIS - AUTOMATED METHOD 09/30/2024 7:19 PM EDT [facility] Blood, Urine Small(A) Negative LAB URINALYSIS - AUTOMATED METHOD 09/30/2024 7:19 PM EDT [facility] Bilirubin, Urine Negative Negative LAB URINALYSIS - AUTOMATED METHOD 09/30/2024 7:19 PM EDT [facility] Urobilinogen, Urine 1.0 0.2 to 1.0 mg/dL LAB URINALYSIS - AUTOMATED METHOD 09/30/2024 7:19 PM EDT [facility] Leukocytes, Urine Negative Negative LAB URINALYSIS - AUTOMATED METHOD 09/30/2024 7:19 PM EDT [facility] Nitrite, Urine Negative Negative LAB URINALYSIS - AUTOMATED METHOD 09/30/2024 7:19 PM EDT [facility] RBC, Urine 4 - 10(A) 0 to 3 /HPF LAB URINALYSIS - AUTOMATED METHOD 09/30/2024 7:19 PM EDT [facility] Comment:This result was prev iously suppressed from the chart. WBC, Urine 0 - 5 0 to 5 /HPF LAB URINALYSIS - AUTOMATED METHOD 09/30/2024 7:19 PM EDT [facility] Comment:This result was prev iously suppressed from the chart. Squamous Epithelial Cells 0 - 2 0 to 5 /HPF LAB URINALYSIS - AUTOMATED METHOD 09/30/2024 7:19 PM EDT [facility] Comment:This result was prev iously suppressed from the chart. Hyaline Casts 0 - 2 0 to 5 /LPF LAB URINALYSIS - AUTOMATED METHOD 09/30/2024 7:19 PM EDT [facility] Comment:This result was prev iously suppressed from the chart. Bacteria, Urine Negative Negative LAB URINALYSIS - AUTOMATED METHOD 09/30/2024 7:19 PM EDT [facility] Comment:This result was prev iously suppressed from the chart. Urine Urine specimen obtained by clean catch procedure / Unknown Non-blood Collection / Unknown 09/30/2024 6:44 PM EDT 09/30/2024 6:56 PM EDT us Zack Teran MD LAB URINE ORDERABLES Final Re sult [facility] [address] [place] [address] * Drug abuse screen (09/30/2024 6:44 PM EDT) Amphetamine Screen Urine Negative Cutoff: 500 ng/mL 09/30/2024 7:17 PM EDT [facility] Benzodiazepines Screen Urine Negative Cutoff: 200 ng/mL 09/30/2024 7:17 PM EDT [facility] Cannabinoid Screen Urine Negative Cutoff: 50 ng/mL 09/30/2024 7:17 PM EDT [facility] Cocaine Screen Urine Negative Cutoff: 300 ng/mL 09/30/2024 7:17 PM EDT [facility] Barbiturate Screen Urine Negative Cutoff: 200 ng/mL 09/30/2024 7:17 PM EDT [facility] Opiate Screen Urine Negative Cutoff: 300 ng/mL 09/30/2024 7:17 PM EDT [facility] Methadone Screen Urine Negative Cutoff: 300 ng/mL 09/30/2024 7:17 PM EDT [facility] Buprenorphine Screen Urine Negative Cutoff: 10 ng/mL 09/30/2024 7:17 PM EDT [facility] Fentanyl Screen Urine Negative Cutoff: 1 ng/mL 09/30/2024 7:17 PM EDT [facility] Oxycodone Screen Urine Negative Cutoff: 100 ng/mL 09/30/2024 7:17 PM EDT [facility] Urine Urine specimen obtained by clean catch procedure / Unknown Non-blood Collection / Unknown 09/30/2024 6:44 PM EDT 09/30/2024 6:56 PM EDT Zack Teran MD LAB URINE ORDERABLES Final Re sult Performing Organization Address [facility]/ZIP Co de Phone Number [facility] [address] [place] [address] * Troponin T, High Sensitivity, 2 Hour, Plasma (09/30/2024 5:25 PM EDT) Troponin T, High Sensitivity, 2 Hour 11 <14 ng/L 09/30/2024 6:01 PM EDT [facility] Blood Venous blood specimen / Unknown Venipuncture / Unknown 09/30/2024 5:25 PM EDT 09/30/2024 5:34 PM EDT Zack Teran MD LAB BLOOD ORDERABLES Final Re sult Performing Organization Address [facility]/ZIP Co de Phone Number [facility] [address] [place] [address] * (ABNORMAL) Ammonia (09/30/2024 5:25 PM EDT) Ammonia 149(H) 11 - 51 umol/L 09/30/2024 6:08 PM EDT [facility] Comment:Improper specimen joe ndling may falsely increase results. Blood Venous blood specimen / Unknown Venipuncture / Unknown 09/30/2024 5:25 PM EDT 09/30/2024 5:35 PM EDT us Zack Teran MD LAB BLOOD ORDERABLES Final Re sult [facility] [address] [place] [address] * POCT glucose meter (09/30/2024 5:16 PM [...] for testing. Comment 09/30/2024 5:17 PM EDT [facility] 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 Clarice Maldonado 09/30/2024 5:17 PM EDT [facility] Device ID [id number] 09/30/2024 5:17 PM EDT [facility] Specimen Type POC Capillary 09/30/2024 5:17 PM EDT [facility] Blood Capillary blood specimen / Unknown 09/30/2024 5:16 PM EDT 09/30/2024 5:17 PM EDT us Edda Young DO LAB POINT OF CARE TE ST DOCKED DEVICE UNSOLICITED RESULTS Final Result Performing Organization Address City/[facility]/ZIP Co de Phone Number [facility] [address] [place] [address] * CT Head wo IV Contrast (09/30/2024 [...] POCT glucose meter (09/30/2024 3:16 PM EDT) [facility] POCT Glucose 203(H) 74 - 99 mg/dL [...] 09/30/2024 3:17 PM EDT [facility] 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 Poncho Cadena 025 3:17 PM EDT [facility] Device ID [id number] 09/30/2024 3:17 PM EDT [facility] Specimen Type POC Capillary 09/30/2024 3:17 PM EDT [facility] Blood Capillary blood specimen / Unknown 09/30/2024 3:16 PM EDT 09/30/2024 3:17 PM EDT Generic Provider Poct LAB POINT OF CARE TEST DOCKED DEVICE UNSOLICITED RESULTS Final Result [facility] [address] [place] [address] * Iron & Total Iron Binding Capacity, Plasma (Includes Transferrin) (09/30/2024 2:51 PM EDT) [facility] Iron, Plasma 123 30 - 160 ug/dL 09/30/2024 11:52 PM EDT [facility] Transferrin, Plasma 239 200 - 360 mg/dL 09/30/2024 11:52 PM EDT [facility] Total Iron Binding Capacity, Plasma 299 240 - 450 ug/mL 09/30/2024 11:52 PM EDT [facility] Transferrin Saturation 41 14 - 50 % 09/30/2024 11:52 PM EDT [facility] Blood Venous blood specimen / Unknown Venipuncture / Unknown 09/30/2024 2:51 PM EDT 09/30/2024 2:56 PM EDT Leon Ramirez APRN, DNP LAB BLOOD ORDERABLES Fi nal Result Performing Organization Address [facility] Co de Phone Number [facility] [address] [place] [address] * Phosphorus (09/30/2024 2:51 PM EDT) Phosphorus, Plasma 2.9 2.5 - 4.5 mg/dL 09/30/2024 9:16 PM EDT [facility] Blood Venous blood specimen / Unknown Venipuncture / Unknown 09/30/2024 2:51 PM EDT 09/30/2024 2:56 PM EDT Leon Ramirez APRN, DNP LAB BLOOD ORDERABLES Fi nal Result Performing Organization Address [facility]/ZIP Co de Phone Number [facility] [address] [place] [address] * Osmolality (09/30/2024 2:51 PM EDT) Osmolality, Serum 291 275 - 295 mOsm/Kg 09/30/2024 10:20 PM EDT [facility] Blood Venous blood specimen / Unknown Venipuncture / Unknown 09/30/2024 2:51 PM EDT 09/30/2024 2:56 PM EDT Leon Ramirez APRN, DNP LAB BLOOD ORDERABLES Fi nal Result Performing Organization Address [facility] Co de Phone Number [facility] [address] [place] [address] * ED HIV 1/2 Antibody/Antigen Screen w/Reflex to HIV 1/2 Differentiation (09/30/2024 2:51 PM EDT) HIV 1 & 2 Antibody/Antigen Screen Non Reactive Non Reactive 09/30/2024 3:46 PM EDT [facility] Comment:Screening for HIV 1 & 2 antibodies, and P24 antigen is NONREACTIVE. No confirmatory testing is required. Blood Venous blood specimen / Unknown Venipuncture / Unknown 09/30/2024 2:51 PM EDT 09/30/2024 3:04 PM EDT us Zack Teran MD LAB BLOOD ORDERABLES Final Re sult Performing Organization Address [facility] Co de Phone Number [facility] [address] [place] [address] * (ABNORMAL) PT-INR (09/30/2024 2:51 PM EDT) Prothrombin Time 14.8(H) 12.0 - 14.3 sec 09/30/2024 3:11 PM EDT [facility] INR 1.2(H) 0.9 - 1.1 09/30/2024 3:11 PM EDT [facility] Blood Venous blood specimen / Unknown Venipuncture / Unknown 09/30/2024 2:51 PM EDT 09/30/2024 2:56 PM EDT Narrative [facility] - 09/30/2024 3:11 PM EDT OPTIMAL INR RANGES FOR PATIENT ON ORAL ANTICOAGULANT THERAPY Prevention of venous thromboembolism INR 2.0 to 3.0 In patients with heart disease: Atrial fibrillation INR 2.0 to 3.0 Valvular heart disease INR 2.0 to 3.0 Tissue heart valves INR 2.0 to 3.0 Mechanical prosthetic valves INR 2.5 to 3[address] INR 2.5 to 3.5 us Zack Teran MD LAB BLOOD ORDERABLES Final Re sult Performing Organization Address [facility]/ZIP Co de Phone Number [facility] [address] [place] [address] * Free T4, Plasma (09/30/2024 2:51 PM EDT) Free T4, Plasma 0.8 0.8 - 1.7 ng/dL 09/30/2024 4:06 PM EDT [facility] Blood Venous blood specimen / Unknown Venipuncture / Unknown 09/30/2024 2:51 PM EDT 09/30/2024 2:56 PM EDT Narrative [facility] - 09/30/2024 4:06 PM EDT Free T4 Trimester Specific Ranges 1st Trimester 0.9 - 1.50 ng/dL 2nd Trimester 0.7 - 1.40 ng/dL 3rd Trimester 0.7 - 1.24 ng/dL Zack Teran MD LAB BLOOD ORDERABLES Final Re sult Performing Organization Address [facility] [place] [address] * (ABNORMAL) Thyroid Stimulating Hormone, Plasma (09/30/2024 2:51 PM EDT) Pathologist [facility] Thyroid Stimulating Hormone, Plasma 4.87(H) 0.40 - 4.20 uIU/mL 09/30/2024 4:09 PM EDT [facility] Blood Venous blood specimen / Unknown Venipuncture / Unknown 09/30/2024 2:51 PM EDT 09/30/2024 2:56 PM EDT Narrative [facility] - 09/30/2024 4:09 PM EDT Trimester Specific Ranges TSH ( IU/mL) 1st Trimester 0.1 - 3.0 2nd Trimester 0.19 - 4.06 3rd Trimester 0.3 - 3.7 us Zack Teran MD LAB BLOOD ORDERABLES Final Re sult Performing Organization Address [facility]/ZIP Co de Phone Number [facility] [address] [place] [address] * Troponin now and 120 min (09/30/2024 2:51 PM EDT) Troponin T, High Sensitivity, 0 Hour 12 <14 ng/L 09/30/2024 4:09 PM EDT [facility] Blood Venous blood specimen / Unknown Venipuncture / Unknown 09/30/2024 2:51 PM EDT 09/30/2024 2:56 PM EDT Zack Teran MD LAB BLOOD ORDERABLES Final Re sult [facility] [address] [place] [address] * Lipase (09/30/2024 2:51 PM EDT) Pathologist [facility] Lipase, Plasma 41 19 - 63 U/L 09/30/2024 4:09 PM EDT [facility] Blood Venous blood specimen / Unknown Venipuncture / Unknown 09/30/2024 2:51 PM EDT 09/30/2024 2:56 PM EDT Zakc Teran MD LAB BLOOD ORDERABLES Final Re sult Performing Organization Address City/[facility]/[place] [address] * Magnesium (09/30/2024 2:51 PM EDT) Pathologist [facility] Magnesium, Plasma 2.1 1.9 - 2.4 mg/dL 09/30/2024 4:09 PM EDT [facility] Blood Venous blood specimen / Unknown Venipuncture / Unknown 09/30/2024 2:51 PM EDT 09/30/2024 2:56 PM EDT Zack Teran MD LAB BLOOD ORDERABLES Final Re sult Performing Organization Address City/[facility] [place] [address] * (ABNORMAL) CMP (09/30/2024 2:51 PM EDT) Pathologist [facility] Glucose, Plasma 63(L) 74 - 99 mg/dL 09/30/2024 4:09 PM EDT [facility] BUN, Plasma 12 7 - 21 mg/dL 09/30/2024 4:09 PM EDT [facility] Creatinine, Plasma 1.36(H) 0.60 - 1.10 mg/dL 09/30/2024 4:09 PM EDT [facility] BUN/Creatinine Ratio 9 09/30/2024 4:09 PM EDT [facility] Sodium, Plasma 141 136 - 145 mmol/L 09/30/2024 4:09 PM EDT [facility] Potassium, Plasma 4.5 3.6 - 4.9 mmol/L 09/30/2024 4:09 PM EDT [facility] Chloride, Plasma 109(H) 97 - 107 mmol/L 09/30/2024 4:09 PM EDT [facility] CO2, Plasma 21(L) 22 - 29 mmol/L 09/30/2024 4:09 PM EDT [facility] Anion Gap 11 6 - 16 mmol/L 09/30/2024 4:09 PM EDT [facility] Total Calcium, Plasma 8.9 8.9 - 10.2 mg/dL 09/30/2024 4:09 PM EDT [facility] Total Protein 6.7 6.3 - 7.9 g/dL 09/30/2024 4:09 PM EDT [facility] Albumin, Plasma 3.7 3.5 - 5.2 g/dL 09/30/2024 4:09 PM EDT [facility] AST, Plasma 45(H) 10 - 35 U/L 09/30/2024 4:09 PM EDT [facility] ALT, Plasma 24 10 - 35 U/L 09/30/2024 4:09 PM EDT [facility] Alkaline Phosphatase, Plasma 69 35 - 104 U/L 09/30/2024 4:09 PM EDT [facility] Total Bilirubin, Plasma 1.0 0.2 - 1.1 mg/dL 09/30/2024 4:09 PM EDT [facility] eGFRcr 46.7 mL/min/1.7 3m*2 09/30/2024 4:09 PM EDT [facility] Comment:Reported eGFRcr in m L/min/1.73m2 is based the CKD-EPI 2020 equation that does not use a race coefficient. Blood Venous blood specimen / Unknown Venipuncture / Unknown 09/30/2024 2:51 PM EDT 09/30/2024 2:56 PM EDT Zack Teran MD LAB BLOOD ORDERABLES Final Re sult Performing Organization Address [facility] Co de Phone Number [facility] [address] [place] [address] * Hepatitis C Antibody - ED (09/30/2024 2:50 PM EDT) Pathologist [facility] Hepatitis C Antibody Negative Negative 09/30/2024 3:44 PM EDT [facility] Blood Venous blood specimen / Unknown Venipuncture / Unknown 09/30/2024 2:50 PM EDT 09/30/2024 3:04 PM EDT Zack Teran MD LAB BLOOD ORDERABLES Final Re sult Performing Organization Address [facility] Co de Phone Number [facility] [address] [place] [address] * (ABNORMAL) Blood gas panel, venous (09/30/2024 2:50 PM EDT) Pathologist [facility] pH, Venous 7.38 7.32 - 7.43 LAB HEMATOLOGY METHOD 09/30/2024 3:05 PM EDT [facility] pCO2, Venous 43 37 - 52 mmHg LAB HEMATOLOGY METHOD 09/30/2024 3:05 PM EDT [facility] pO2, Venous 37 25 - 40 mmHg LAB HEMATOLOGY METHOD 09/30/2024 3:05 PM EDT [facility] SO2, Measured, Venous 70 65 - 80 % LAB HEMATOLOGY METHOD 09/30/2024 3:05 PM EDT [facility] Base Excess, Venous -0.2 -2.0 - 3.0 mmol/L LAB HEMATOLOGY METHOD 09/30/2024 3:05 PM EDT [facility] Bicarbonate, Calculated, Venous 25 22 - 26 mmol/L LAB HEMATOLOGY METHOD 09/30/2024 3:05 PM EDT [facility] Hematocrit, Whole Blood 39.5 34.0 - 45.0 % LAB HEMATOLOGY METHOD 09/30/2024 3:05 PM EDT [facility] Sodium, Whole Blood 142 136 - 145 mmol/L LAB HEMATOLOGY METHOD 09/30/2024 3:05 PM EDT [facility] Potassium, Whole Blood 4.3 3.6 - 4.9 mmol/L LAB HEMATOLOGY METHOD 09/30/2024 3:05 PM EDT [facility] Chloride, Whole Blood 111(H) 97 - 107 mmol/L LAB HEMATOLOGY METHOD 09/30/2024 3:05 PM EDT [facility] Glucose, Whole Blood 62(L) 74 - 99 mg/dL LAB HEMATOLOGY METHOD 09/30/2024 3:05 PM EDT [facility] Lactate, Venous, Whole Blood 1.1 0.5 - 2.2 mmol/L LAB HEMATOLOGY METHOD 09/30/2024 3:05 PM EDT [facility] Ionized Calcium, Whole Blood 4.6 4.6 - 5.1 mg/dL LAB HEMATOLOGY METHOD 09/30/2024 3:05 PM EDT [facility] Blood Venous blood specimen / Unknown Venipuncture / Unknown 09/30/2024 2:50 PM EDT 09/30/2024 3:04 PM EDT us Zack Teran MD LAB BLOOD ORDERABLES Final Re sult [facility] [address] [place] [address] * Type and screen (09/30/2024 2:50 PM [...] ORDERABLE S Final Result Performing Organization Address City/[facility]/ZIP Co de Phone Number BLOOD BANK [address] [place] [address], * Lactic acid, venous (09/30/2024 2:50 PM EDT) Pathologist [facility] Lactate, Venous, Whole Blood 1.1 0.5 - 2.2 mmol/L LAB HEMATOLOGY METHOD 09/30/2024 3:05 PM EDT [facility] Blood Venous blood specimen / Unknown Venipuncture / Unknown 09/30/2024 2:50 PM EDT 09/30/2024 3:04 PM EDT Zack Teran MD LAB BLOOD ORDERABLES Final Re sult Performing Organization Address City/[facility]/ZIP Co de Phone Number [facility] [address] [place] [address] * (ABNORMAL) CBC (09/30/2024 2:50 PM EDT) Pathologist [facility] WBC Count 3.48(L) 3.70 - 10.30 10*3/uL LAB HEMATOLOGY METHOD 09/30/2024 2:58 PM EDT [facility] RBC Count 3.96 3.90 - 5.20 10*6/uL LAB HEMATOLOGY METHOD 09/30/2024 2:58 PM EDT [facility] HGB 13.5 11.2 - 15.7 g/dL LAB HEMATOLOGY METHOD 09/30/2024 2:58 PM EDT [facility] HCT 38.8 34.0 - 45.0 % LAB HEMATOLOGY METHOD 09/30/2024 2:58 PM EDT [facility] Platelet Count 100(L) 155 - 369 10*3/uL LAB HEMATOLOGY METHOD 09/30/2024 2:58 PM EDT [facility] MCV 98 79 - 98 fL LAB HEMATOLOGY METHOD 09/30/2024 2:58 PM EDT [facility] MCH 34.1(H) 26.0 - 32.0 pg LAB HEMATOLOGY METHOD 09/30/2024 2:58 PM EDT [facility] MCHC 34.8 30.7 - 35.5 g/dL LAB HEMATOLOGY METHOD 09/30/2024 2:58 PM EDT [facility] RDW 13.9 11.5 - 14.5 % LAB HEMATOLOGY METHOD 09/30/2024 2:58 PM EDT [facility] MPV 8.4(L) 8.8 - 12.5 fL LAB HEMATOLOGY METHOD 09/30/2024 2:58 PM EDT [facility] nRBC 0.0 <=0.0 per 100 WBCs LAB HEMATOLOGY METHOD 09/30/2024 2:58 PM EDT [facility] Blood Venous blood specimen / Unknown Venipuncture / Unknown 09/30/2024 2:50 PM EDT 09/30/2024 2:56 PM EDT Zack Teran MD LAB BLOOD ORDERABLES Final Re sult [facility] [address] [place] [address] * EKG now - STAT (adult) (09/30/2024 2:41 PM EDT) EKG DIAGNOSIS CLASS Normal MUSE ECG Ventricular Rate 72 BPM MUSE ECG Atrial Rate 72 BPM MUSE ECG MT Interval 178 ms MUSE ECG QRSD Interval 96 ms MUSE ECG QT Interval 408 ms MUSE ECG QTC Interval 446 ms MUSE ECG P [place] 10 degrees MUSE ECG R [place] 25 degrees MUSE ECG T Wave [place] 39 degrees MUSE ECG Diagnosis Normal sinus [...] Comment 09/30/2024 2:21 PM EDT [facility] 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 Gloria Tracy 09/30/2024 2:21 PM EDT [facility] Device ID [id number] 09/30/2024 2:21 PM EDT [facility] Specimen Type POC Capillary 09/30/2024 2:21 PM EDT [facility] Blood Capillary blood specimen / Unknown 09/30/2024 2:13 PM EDT 09/30/2024 2:21 PM EDT us Generic Provider Poct LAB POINT OF CARE TEST DOCKED DEVICE UNSOLICITED RESULTS Final Result Performing Organization Address City/State/[facility] Co de Phone Number [facility] [address] [place] [address] documented in this encounter Visit Diagnoses Diagnosis [...] ARCADIO) 0938 (Given - Provider: Jayant Albarado, ARCADIO)1656 (Given - Provider: Jayant Albarado, ARCADIO) 0837 [...] - Provider: Kiana Chang) 1203 [facility] Provider: Jayant Albarado RN)2100 (Given [...] documented as of this encounter Care Teams Animal Chiropractor Relationship Specialty Start Date End Date Pcp, No [address] [place] [address] PCP - General Family Medicine 09/30/24 09/30/24 [place] [address] PCP - General 10/01/24 documented as of this encounter
[2024-11-21 06:31] VITALS: BP 119/49; PULSE 73; RESP 20; TEMP 36.8; O2SAT 96; BMI 43.4
--- NOTE | 2024-11-21 06:31 | XR_ITS ---
FINAL REPORT CLINICAL HISTORY: Cough, shortness of breath COMPARISON: 11/19/2024 FINDINGS: CHEST 2 VIEWS No acute pulmonary density is present. Mediastinal contour is normal. Heart size is stable. IMPRESSION: Stable chest exam without acute disease Reviewed, Interpreted and Dictated by Raina Tirado MD Transcribed by Brenda Garcia Authenticated and [facility]
--- NOTE | 2024-11-21 06:34 | HMH.EDGENADL ---
Discharge Plan Disposition Patient Disposition: Home, Self-Care Prescriptions Prescriptions: New benzonatate 100 mg capsule 100 mg PO TID PRN (Reason: cough) Qty: 30 0RF azithromycin 250 mg tablet See Rx Instructions .ROUTE .COMPLEX Qty: 6 0RF Rx Instructions: For 250 mg dose pack: take 500 mg today (day 1), then 250 mg for 4 days (days 2-5) No Action lidocaine 5 % Adhesive Patch,Medicated 1 patch TOPICAL DAILYP PRN (Reason: Pain) Rx Instructions: leave on most painful area for up to 12 hrs oxcarbazepine 150 mg Tablet 150 mg PO BID donepezil 5 mg Tablet 5 mg PO HS cholecalciferol (vitamin D3) 1,250 mcg (50,000 unit) Capsule 1,250 mcg PO WEEKLY Rx Instructions: weekly on SUNDAY promethazine 25 mg suppository 25 mg WV Q6HP PRN (Reason: Nausea And Vomiting) carvedilol 3.125 mg Tablet 3.125 mg PO BID 30 Days Qty: 60 0RF spironolactone 50 mg tablet 50 mg PO DAILY Qty: 30 0RF pantoprazole 40 mg Tablet,Delayed Release (Dr/Ec) 40 mg PO HS duloxetine 30 mg Capsule,Delayed Release(Dr/Ec) 30 mg PO DAILY melatonin 5 mg tablet 10 mg PO HS pyridoxine (vitamin B6) 50 mg tablet 50 mg PO DAILY acetaminophen 325 mg Tablet 325 mg PO Q6HP PRN (Reason: Mild Pain (Scale Score 1-4)) cyclobenzaprine 5 mg Tablet 5 mg PO TIDP PRN (Reason: Muscle Spasm) ferrous sulfate 324 mg (65 mg iron) tablet,delayed release (DR/EC) 324 mg PO Q2D Rx Instructions: take 1 tab every other day albuterol sulfate 90 mcg/actuation HFA aerosol inhaler 1 puff inhalation Q6HP PRN (Reason: Shortness Of Breath) Patient Comments: INHALE 1 PUFF BY MOUTH EVERY 6 HOURS NEEDED may keep AT bedside (shortness of breath) ondansetron 4 mg tablet,disintegrating 4 mg PO Q6H PRN (Reason: nausea and vomiting) Qty: 10 0RF meloxicam 15 mg tablet 15 mg PO DAILY amlodipine 5 mg tablet 5 mg PO HS levothyroxine 88 mcg tablet 88 mcg PO DAILY polyethylene glycol 3350 17 gram/dose powder 17 g PO DAILY alum-mag hydroxide-simeth [Almacone-2] 400-400-40 mg/5 mL suspension 30 ml PO DAILYP PRN (Reason: gerd) lactulose 10 gram/15 mL solution 30 ml PO TID cetirizine 10 mg tablet 10 mg PO DAILY fluticasone prp-sod.chl,bicarb 50 mcg- 0.9 % Kit,[place] Suspension And [place] 1 ea INTRANASAL DAILY Referrals Follow up/Referrals: Celsa Pereira APRN [Primary Care Provider, Medical] - See instructions Activity Restrictions/Add. Instructions Additional Instructions/Restrictions: Please follow up with your primary care provider in 2-3 days. Please return to ED if your symptoms worsen, change in location, change in severity, new symptoms develop or if you become concerned for your health. Clinical Impressions Clinical Impression: Acute viral syndrome, Cough, Malaise Print Language Print Language: Uzbek Discharge ED Provider: Federico Benjamin General Adult HPI <Federico Benjamin MD - Last Filed: 11/21/24 07:00> General Chief complaint: Upper Respiratory Infection Stated complaint: SOB Time Seen by Provider: 11/21/24 06:30 History of Present Illness HPI narrative: 54-year-old female history of pancreatitis, obesity, cognitive impairment, resident at [facility] [address] presents for nasal congestion, cough, sore throat, shortness of breath. Symptoms been ongoing for few days. Related Data Home Medications ?Medication ?Instructions ?Recorded ?Confirmed duloxetine 30 mg capsule,delayed 30 mg PO DAILY 05/02/22 11/19/24 release pantoprazole 40 mg tablet,delayed 40 mg PO HS 05/02/22 11/19/24 release melatonin 5 mg tablet 10 mg PO HS 05/03/22 11/19/24 pyridoxine (vitamin B6) 50 mg 50 mg PO DAILY 02/21/23 11/19/24 tablet acetaminophen 325 mg tablet 325 mg PO Q6HP PRN Mild Pain 05/14/23 11/19/24 (Scale Score 1-4) cyclobenzaprine 5 mg tablet 5 mg PO TIDP PRN Muscle Spasm 05/14/23 11/19/24 ferrous sulfate 324 mg (65 mg 324 mg PO Q2D 05/14/23 11/19/24 iron) tablet,delayed release albuterol sulfate 90 mcg/actuation 1 puff inhalation Q6HP PRN 07/18/23 11/19/24 aerosol inhaler Shortness Of Breath cholecalciferol (vitamin D3) 1,250 1,250 mcg PO WEEKLY 04/06/24 11/19/24 mcg (50,000 unit) capsule donepezil 5 mg tablet 5 mg PO HS 04/06/24 11/19/24 lidocaine 5 % topical patch 1 patch topical DAILYP PRN Pain 04/06/24 11/19/24 oxcarbazepine 150 mg tablet 150 mg PO BID 04/06/24 11/19/24 promethazine 25 mg rectal 25 mg WV Q6HP PRN Nausea And 04/06/24 11/19/24 suppository Vomiting aluminum-mag hydroxide-simethicone 30 ml PO DAILYP PRN gerd 11/19/24 11/19/24 400 mg-400 mg-40 mg/5 mL oral susp (Almacone-2) amlodipine 5 mg tablet 5 mg PO HS 11/19/24 11/19/24 cetirizine 10 mg tablet 10 mg PO DAILY 11/19/24 11/19/24 fluticasone prop.50 mcg 1 ea intranasal DAILY 11/19/24 11/19/24 spray,suspen-sod.chloride 0.9% nasal spray kit lactulose 10 gram/15 mL oral 30 ml PO TID 11/19/24 11/19/24 solution levothyroxine 88 mcg tablet 88 mcg PO DAILY 11/19/24 11/19/24 meloxicam 15 mg tablet 15 mg PO DAILY 11/19/24 11/19/24 polyethylene glycol 3350 17 17 g PO DAILY 11/19/24 11/19/24 gram/dose oral powder Previous Rx's ?Medication ?Instructions ?Recorded carvedilol 3.125 mg tablet 3.125 mg PO BID 30 days #60 tabs 04/07/24 spironolactone 50 mg tablet 50 mg PO DAILY #30 tabs 04/07/24 Held on 08/26/24. Instructions: Resume on 08/29/24. ondansetron 4 mg disintegrating 4 mg PO Q6H PRN nausea and 08/26/24 tablet vomiting #10 tabs azithromycin 250 mg tablet See Rx Instructions PO .COMPLEX #6 11/21/24 tabs benzonatate 100 mg capsule 100 mg PO TID PRN cough #30 caps 11/21/24 Allergies Allergy/AdvReac Type Severity Reaction Status Date / Time amoxicillin (From Augmentin) Allergy Unknown Verified 03/25/24 17:02 allergy reaction clavulanic acid (From Allergy Unknown Verified 03/25/24 17:02 Augmentin) allergy reaction oxycodone Allergy Unknown Verified 03/25/24 17:02 allergy reaction PFSH <Federico Benjamin MD - Last Filed: 11/21/24 07:00> [facility] Disclaimer: The information contained in this section may have been updated after the patient was seen, as this information can be updated by other users. Medical History (Updated 11/21/24 @ 07:26 by Sourav Radford MD) Dizziness Dyspnea Nausea Headache Constipation Abnormal finding on diagnostic imaging of kidney Pyelonephritis Cirrhosis of liver Bipolar 1 disorder Hypothyroidism Hypertension Cognitive impairment Murmur, heart Obstructive sleep apnea Hypothyroid Anxiety Surgical History H/O section H/O hernia repair Hx of appendectomy Family History Other No significant family history Social History Smoking Status: Never smoker alcohol intake: never current occupational status: disabled Travel in the last 8 weeks?: None Have you lived/traveled outside [place] in past 30 days?: No Contact w/someone who lives/traveled outside US past 30 days?: No Exposure to someone with infectious disease in past 14 days?: No Do you have a fever (greater than 100.4 F or 38 C)?: No Have you tested positive for COVID-19?: No Exposed to someone with COVID-19 in past 14 days?: No Do you have a sore throat?: No Do you have a cough?: No Do you have any weakness?: No Do you have any diarrhea?: No Are you experiencing any unusual bleeding?: No Do you have any muscle aches/pain?: No Do you have any abdominal pain?: No Are you experiencing loss of taste or smell?: No Other Medical History Have you received the Flu Vaccine for this season: No Have you received the Pneumonia Vaccine: No <Federico Benjamin MD - Last Filed: 11/21/24 07:00> ROS Obtained: Yes All systems reviewed & no additional complaints except as documented Physical Exam <Federico Benjamin MD - Last Filed: 11/21/24 07:00> General General appearance: alert and in no apparent distress Head Head exam: atraumatic and normocephalic Eye Eye exam: Present normal appearance, PERRL and EOMI ENT ENT exam: Present normal oropharynx and normal external ear exam Neck Neck exam: Present normal inspection and full ROM Chest Chest inspection: Present normal inspection and symmetric chest wall rise; Absent tenderness Respiratory Respiratory exam: Present normal lung sounds bilaterally; Absent respiratory distress Cardiovascular Cardiovascular exam: Present regular rate and normal rhythm Abdominal Exam Abdominal exam: Present soft; Absent distention, tenderness or guarding Extremities Exam Extremities exam: Present normal inspection; Absent edema or joint swelling Back Exam Back exam: Present normal inspection; Absent tenderness Neurological Exam Neurological exam: Present alert and oriented X3; Absent motor sensory deficit Psychiatric Psychiatric exam: Present normal affect and normal mood Skin Skin exam: Present warm, dry and normal color Lymphatic Lymphatic Findings: no adenopathy Medical Decision Making <Federico Benjamin MD - Last Filed: 11/21/24 07:00> Medical Records Medical records reviewed: Yes I reviewed the patient's medical records. Screening: Per USPSTF and CDC recommendations, given the prevalence of disease in our region, it is our hospital?s policy to screen for HIV and viral Hepatitis for all patients aged 18 and over and those with ongoing risk factors. Darrian Inquiry Pt receiving controlled substance: No Darrian was queried for this patient: No Vital Signs: 11/21/24 06:31 11/21/24 07:01 Temperature 98.3 F Temperature Source Oral Pulse Rate 74 Pulse Rate [Right] 73 Respiratory Rate 20 Blood Pressure 126/62 Blood Pressure [Right Arm] 119/49 L Blood Pressure Mean [Right Arm] 72 Blood Pressure Source [Right Arm] Automatic Cuff Blood Pressure Position [Right Arm] Sitting 02 Sat by Pulse Oximetry 96 96 Oxygen Delivery Method Room Air Room Air Lab Data Lab results reviewed: Yes I reviewed the patient's lab results. Lab Results 11/21/24 06:29: WBC 3.1 L, RBC 3.60 L, Hgb 12.0 L, Hct 34.9 L, MCV 96.9, MCH 33.3 H, MCHC 34.4, RDW 13.3, Plt Count 89 L, MPV 8.9, Neut % (Auto) 65.1, Lymph % (Auto) 20.3, [place] % (Auto) 10.1 H, Eos % (Auto) 3.9, Baso % (Auto) 0.3, Neut # (Auto) 2.0, Lymph # (Auto) 0.6 L, [place] # (Auto) 0.3, Eos # (Auto) 0.1, Baso # (Auto) 0.0, Sodium 139, Potassium 4.0, Chloride 109 H, Carbon Dioxide 26, Anion Gap 8.0, BUN 6 L, Creatinine 1.10 H, Estimated Creat Clear 45, Estimated GFR 52 L, Est GFR ( Amer) 63, Glucose 76, Calcium 8.9, Total Bilirubin 1.1, AST 63 H, ALT 29, Alkaline Phosphatase 94, Total Protein 6.4, Albumin 2.9 L, Globulin 3.5 H, Albumin/Globulin Ratio 0.8 L 11/21/24 06:29 11/21/24 06:29 Orders (Tests/Meds): ED MEDICATIONS Discontinued Medications Generic Name Dose Route Start Last Admin Trade Name Freq PRN Reason Stop Dose Admin Acetaminophen 1,000 mg 11/21/24 06:30 11/21/24 06:48 Acetaminophen 500mg Tab PO 11/21/24 06:31 1,000 mg ONCE ONE Administration Ibuprofen 600 mg 11/21/24 06:30 11/21/24 06:48 Ibuprofen 600 Mg Tablet PO 11/21/24 06:31 600 mg ONCE ONE Administration ORDERS Category Date Time Status CXR 2 view (NOT portable) [XR chest 2V] Stat Exams 11/21/24 06:31 Completed CBC w/Auto Diff [Complete Blood Count Auto Diff] Stat Lab 11/21/24 06:29 Completed CMP [Comprehensive Metabolic Panel] Stat Lab 11/21/24 06:29 Completed Rapid PCR Covid and Flu A/B Stat Lab 11/21/24 06:28 Received Medical Decision Narrative: 54-year-old female with history of mild pancreatitis, cognitive impairment, obesity, resident at [facility] [address] presents for a couple days of cough congestion sore throat shortness of breath headache. History was obtained via interactive discussion with patient, EMS. On arrival, patient is [afebrile, hemodynamically stable, satting appropriately, alert, oriented x4, GCS 15], moving all extremities spontaneously. Full physical exam performed and significant for nasal congestion, clear lungs bilaterally Differential includes but is not limited to URI, pneumonia, tension headache, migraine headache pharyngitis. Patient was given Tylenol and for symptomatic management and correction of underlying abnormalities. Workup initiated including CBC CMP chest x-ray viral panel.. At this time care handed off to oncoming physician. <Sourav Radford MD - Last Filed: 11/21/24 07:26> Vital Signs: 11/21/24 06:31 11/21/24 07:01 Temperature 98.3 F Temperature Source Oral Pulse Rate 74 Pulse Rate [Right] 73 Respiratory Rate 20 Blood Pressure 126/62 Blood Pressure [Right Arm] 119/49 L Blood Pressure Mean [Right Arm] 72 Blood Pressure Source [Right Arm] Automatic Cuff Blood Pressure Position [Right Arm] Sitting 02 Sat by Pulse Oximetry 96 96 Oxygen Delivery Method Room Air Room Air Lab Data Lab Results 11/21/24 06:29: WBC 3.1 L, RBC 3.60 L, Hgb 12.0 L, Hct 34.9 L, MCV 96.9, MCH 33.3 H, MCHC 34.4, RDW 13.3, Plt Count 89 L, MPV 8.9, Neut % (Auto) 65.1, Lymph % (Auto) 20.3, [place] % (Auto) 10.1 H, Eos % (Auto) 3.9, Baso % (Auto) 0.3, Neut # (Auto) 2.0, Lymph # (Auto) 0.6 L, [place] # (Auto) 0.3, Eos # (Auto) 0.1, Baso # (Auto) 0.0, Sodium 139, Potassium 4.0, Chloride 109 H, Carbon Dioxide 26, Anion Gap 8.0, BUN 6 L, Creatinine 1.10 H, Estimated Creat Clear 45, Estimated GFR 52 L, Est GFR ( Amer) 63, Glucose 76, Calcium 8.9, Total Bilirubin 1.1, AST 63 H, ALT 29, Alkaline Phosphatase 94, Total Protein 6.4, Albumin 2.9 L, Globulin 3.5 H, Albumin/Globulin Ratio 0.8 L Orders (Tests/Meds): ED MEDICATIONS Discontinued Medications Generic Name Dose Route Start Last Admin Trade Name Freq PRN Reason Stop Dose Admin Acetaminophen 1,000 mg 07/25/25 06:30 11/21/24 06:48 Acetaminophen 500mg Tab PO 11/21/24 06:31 1,000 mg ONCE ONE Administration Ibuprofen 600 mg 11/21/24 06:30 11/21/24 06:48 Ibuprofen 600 Mg Tablet PO 11/21/24 06:31 600 mg ONCE ONE Administration ORDERS Category Date Time Status CXR 2 view (NOT portable) [XR chest 2V] Stat Exams 11/21/24 06:31 Completed CBC w/Auto Diff [Complete Blood Count Auto Diff] Stat Lab 11/21/24 06:29 Completed CMP [Comprehensive Metabolic Panel] Stat Lab 11/21/24 06:29 Completed Rapid PCR Covid and Flu A/B Stat Lab 11/21/24 06:28 Received Medical Decision Narrative: 54-year-old female with history of mild pancreatitis, cognitive impairment, obesity, resident at [facility] [address] presents for a couple days of cough congestion sore throat shortness of breath headache. History was obtained via interactive discussion with patient, EMS. On arrival, patient is [afebrile, hemodynamically stable, satting appropriately, alert, oriented x4, GCS 15], moving all extremities spontaneously. Full physical exam performed and significant for nasal congestion, clear lungs bilaterally Differential includes but is not limited to URI, pneumonia, tension headache, migraine headache pharyngitis. Patient was given Tylenol and for symptomatic management and correction of underlying abnormalities. Workup initiated including CBC CMP chest x-ray viral panel.. At this time care handed off to oncoming physician. Yovani Radford MD took over care of this patient at 0700. Pending chest x-ray. Chest x-ray independently interpreted by myself demonstrate no focal consolidation is confirmed by the radiologist final read. Nevertheless, given patient's continued cough, will send with azithromycin to cover for atypical infection. On my repeat examination lungs are clear no increased work of breathing stable on room air. Will discharge with strict return precautions. Procedures <Federico Benjamin MD - Last Filed: 11/21/24 07:00> Risk/Benefits of Procedure(s) Were Explained: Yes Critical Care <Federico Benjamin MD - Last Filed: 11/21/24 07:00> Critical Care Time Critical Care Time: No
[2024-11-21 06:38] LABS: Coronavirus 19, PCR Not Detected (NotDetected); Influenza A, PCR Not Detected (NotDetected); Influenza B, PCR Not Detected (NotDetected)
[2024-11-21 06:45] LABS: Hematocrit 34.9 % (37.0-47.0); Hemoglobin 12.0 g/dL (12.2-16.2); Immature Granulocytes % 0.3 %; Mean Corpuscular HGB Conc 34.4 g/dL (31.8-35.4); Mean Corpuscular Hemoglobin 33.3 pg (27.0-31.2); Mean Corpuscular Volume 96.9 fl (81-99); Nucleated Red Blood Cells % 0 %; Platelet Count 89 K/mm3 (142-424); Red Blood Count 3.60 M/mm3 (4.20-5.40); Red Cell Distribution Width-SD 47.5 fL; White Blood Count 3.1 K/mm3 (4.8-10.8)
[2024-11-21] MEDS: ACETAMINOPHEN 500MG TAB 1000 MG PO (06:48)
[2024-11-21] MEDS: IBUPROFEN 600 MG TABLET PO (06:48)
[2024-11-21 07:01] VITALS: BP 126/62; PULSE 74; O2SAT 96
[2024-11-21 07:01] LABS: Albumin Level 2.9 g/dl (3.5-5.0); Alkaline Phosphatase 94 U/L (38-126); Bilirubin,Total 1.1 mg/dl (0.2-1.3); Calcium 8.9 mg/dl (8.4-10.2); Carbon Dioxide 26 mmol/L (22.0-30.0); Glucose 76 mg/dl (74-100); Potassium 4.0 mmoL/L (3.5-5.1); Sodium 139 mmol/L (136-145)
[2024-11-21 07:03] LABS: Alanine Aminotransferase 29 U/L (12-78); Albumin/Globulin Ratio 0.8 (1.1-1.8); Anion Gap 8.0 mEq/L (5-15); Aspartate Amino Transferase 63 U/L (14-36); Blood Urea Nitrogen 6 mg/dl (7-17); Chloride 109 mmol/L (98-107); Creatinine Clearance Estimated 45 mL/min (50-200); Creatinine,Serum 1.10 mg/dl (0.52-1.04); Estimated Glomerular Filt Rate 52 ml/min (>60); GFR (African American) 63 ML/MIN (>60); Globulin 3.5 g/dL (1.3-3.2); Total Protein,Serum 6.4 g/dl (6.3-8.2)
--- OUTSIDE RECORDS SUMMARY | 2024-11-21 07:22 | XMS_ITS | Clinical Summary ---
Author Organization [facility] Address [address] [place] [address] Phone Care Team Providers Care Powdered Sugar Supervisor Name Role Phone Unavailable Primary Care Provider [...] to complete this topic Insurance ANTH PPO [facility] [place] MEDICAID CARVE OUT [facility] [employer]AN [place] MDR
--- OUTSIDE RECORDS SUMMARY | 2024-11-21 07:22 | XMS_ITS | Encounter Summary ---
Author Organization Healthcare Address [address] [id number] Care Team Providers Care Solderer Dipper Name Role Phone Celsa Pereira RN Primary [...] any time in the past 12 m [facility], were you homeless or living in a fci (including now)? No 10/01/2024 Utilities Answer Date Recorded In the past 12 months has th e [employer], gas, oil, or water company threatened to [...] documented as of this encounter Care Teams Solderer Dipper Relationship Specialty Start Date End [place] [address] PCP - General 10/01/24 documented as of this encounter
--- OUTSIDE RECORDS SUMMARY | 2024-11-21 07:22 | XMS_ITS | Clinical Summary ---
Author Organization Healthcare Address [address] [place] [address] Care Team Providers Care Mysql Database Administrator Name Role Phone Celsa Pereira RN [...] crush, chew, or split. 30 tablet 3 2 Active cetirizine (ZyrTEC) 10 MG tablet Take [...] cholecalcifero l (True Vitamin D3) 1.25 MG (03577 UT) capsule Take 1 capsule by mouth [...] mouth every 6 hours as needed. Under [place] law, monthly prescriptions (30 days) can be [...] not crush or chew. 30 capsule 1 5 025 Active lactulose (Chronulac) 10 GM/15ML solution Take 30 mL by mouth 3 times a day. Goal 3-4 bowel movements per day. 2700 mL 5 025 thiamine (Vitamin B-1) 100 MG tablet Take 1 tablet by mouth daily. 30 tablet 5 025 Active Problems Problem Noted Date Diagnosed Date [...] EDT Hospital Encounter PAV A Inpatient [address] [place] [address] Edda Watts DO Arndt, Frederick, MD Romond, John B, MD Chadha, Jagriti, MD Crutcher, Teetee Ewing MD Acute encephalopathy (Primary Dx); HE (hepatic encephalopathy) (CMS/HCC); Thrombocytopenia (CMS/HCC); Dysarthria; Chest pain, unspecified type; Hepatic encephalopathy (CMS/HCC); Altered mental status, unspecified altered mental status type Discharge Disposition: [place] [facility] [place] Travel [place] Last 3 Months Immunizations Immunization Administration Dates Next Due Hep B, adult 07/27/2020 Influenza, injectable, quadrivalent, preservativ e free 02/16/2020,02/15/2018 [facility] COVID-19 Vaccine (Blue Cap) 18+ 03/08/20 21 [employer] COVID-19 Vac cine (Youssef Cap) 12+ years [...] any time in the [facility] were you [facility] or living in a retirement (including now)? No 10/01/2024 Utilities Answer Date [...] 2021 UKY-Zoster Vaccines (1 of 2) 2021 [id number] Vaccine ( - season) 2023 08/18/2021, 03/08/2021, 12/29/2020 UKY-Influenza [...] completely compress with transducer pressure. Procedure Note Atnoine Hernandez MD - 10/18/2024 CLINICAL INDICATION: evaluate [...] on 10/18/2024 11:42 AM Momo Akhtar MD [facility] US PROCEDURES Final Result * (ABNORMAL) CBC W/O Differential (10/17/2024 4:53 AM EDT) Only the most recent of3 resultswithin the time period is included. WBC Count 2.25(L) 3.70 - 10.30 10*3/uL LAB HEMATOLOGY METHOD 10/17/2024 5:15 AM EDT [facility] RBC Count 3.31(L) 3.90 - 5.20 10*6/uL LAB HEMATOLOGY METHOD 10/17/2024 5:15 AM EDT [facility] HGB 11.2 11.2 - 15.7 g/dL LAB HEMATOLOGY METHOD 10/17/2024 5:15 AM EDT [facility] HCT 33.4(L) 34.0 - 45.0 % LAB HEMATOLOGY METHOD 10/17/2024 5:15 AM EDT [facility] Platelet Count 77(L) 155 - 369 10*3/uL LAB HEMATOLOGY METHOD 10/17/2024 5:15 AM EDT [facility] MCV 101(H) 79 - 98 fL LAB HEMATOLOGY METHOD 10/17/2024 5:15 AM EDT [facility] MCH 33.8(H) 26.0 - 32.0 pg LAB HEMATOLOGY METHOD 10/17/2024 5:15 AM EDT [facility] MCHC 33.5 30.7 - 35.5 g/dL LAB HEMATOLOGY METHOD 10/17/2024 5:15 AM EDT [facility] RDW 14.0 11.5 - 14.5 % LAB HEMATOLOGY METHOD 10/17/2024 5:15 AM EDT [facility] MPV 8.8 8.8 - 12.5 fL LAB HEMATOLOGY METHOD 10/17/2024 5:15 AM EDT [facility] nRBC 0.0 <=0.0 per 100 WBCs LAB HEMATOLOGY METHOD 10/17/2024 5:15 AM EDT [facility] Blood Venous blood specimen / Unknown Venipuncture / Unknown 10/17/2024 4:53 AM EDT 10/17/2024 5:08 AM EDT us Momo Akhtar MD LAB BLOOD ORDERABLES Final Resu lt [facility] [address] [place] [address] * (ABNORMAL) Comprehensive Metabolic Panel, Plasma (10/17/2024 4:53 AM EDT) Only the most recent of8 resultswithin the time period is included. Glucose, Plasma 79 74 - 99 mg/dL 10/17/2024 5:37 AM EDT [facility] BUN, Plasma 7 7 - 21 mg/dL 10/17/2024 5:37 AM EDT [facility] Creatinine, Plasma 0.96 0.60 - 1.10 mg/dL 10/17/2024 5:37 AM EDT [facility] BUN/Creatinine Ratio 7 10/17/2024 5:37 AM EDT [facility] Sodium, Plasma 138 136 - 145 mmol/L 10/17/2024 5:37 AM EDT [facility] Potassium, Plasma 4.1 3.6 - 4.9 mmol/L 10/17/2024 5:37 AM EDT [facility] Chloride, Plasma 106 97 - 107 mmol/L 10/17/2024 5:37 AM EDT [facility] CO2, Plasma 26 22 - 29 mmol/L 10/17/2024 5:37 AM EDT [facility] Anion Gap 6 6 - 16 mmol/L 10/17/2024 5:37 AM EDT [facility] Total Calcium, Plasma 9.4 8.9 - 10.2 mg/dL 10/17/2024 5:37 AM EDT [facility] Total Protein 6.0(L) 6.3 - 7.9 g/dL 10/17/2024 5:37 AM EDT [facility] Albumin, Plasma 3.0(L) 3.5 - 5.2 g/dL 10/17/2024 5:37 AM EDT [facility] AST, Plasma 56(H) 10 - 35 U/L 10/17/2024 5:37 AM EDT [facility] Comment:Hemolyzed, result ma y be falsely increased. ALT, Plasma 29 10 - 35 U/L 10/17/2024 5:37 AM EDT [facility] Alkaline Phosphatase, Plasma 73 35 - 104 U/L 10/17/2024 5:37 AM EDT [facility] Total Bilirubin, Plasma 0.7 0.2 - 1.1 mg/dL 10/17/2024 5:37 AM EDT [facility] eGFRcr 70.9 mL/min/1.7 3m*2 10/17/2024 5:37 AM EDT [facility] Comment:Reported eGFRcr in m L/min/1.73m2 is based the CKD-EPI 2020 equation that does not use a race coefficient. Blood Venous blood specimen / Unknown Venipuncture / Unknown 10/17/2024 4:53 AM EDT 10/17/2024 5:08 AM EDT us Momo Akhtar MD LAB BLOOD ORDERABLES Final Resu lt [facility] [address] [id number] * US Head Neck Soft Tissue (10/11/2024 [...] on 10/11/2024 11:11 AM Evette Goodrich MD IM US PROCEDURES Final Result * POCT glucose meter (10/05/2024 3:05 AM EDT) Only the most recent of18 resultswithin the time period is included. [facility] POCT Glucose 92 74 - 99 mg/dL [...] for testing. Comment 10/05/2024 3:13 AM EDT [facility] Waterworks Supervisor ID Parul Bustamante 10/05/2024 3:13 AM EDT [facility] Device ID [id number] 10/05/2024 3:13 AM EDT [facility] Specimen Type POC Capillary 10/05/2024 3:13 AM EDT [facility] Blood Capillary blood specimen / Unknown 10/05/2024 3:05 AM EDT 10/05/2024 3:13 AM EDT us Momo Akhtar MD LAB POINT OF CARE TE ST DOCKED DEVICE UNSOLICITED RESULTS Final Result [facility] [address] [place] [address] * (ABNORMAL) CBC and Differential (10/04/2024 5:20 AM EDT) Only the most recent of4 resultswithin the time period is included. [facility] WBC Count 3.75 3.70 - 10.30 10*3/uL LAB HEMATOLOGY METHOD 10/04/2024 5:39 AM EDT [facility] RBC Count 3.52(L) 3.90 - 5.20 10*6/uL LAB HEMATOLOGY METHOD 10/04/2024 5:39 AM EDT [facility] HGB 11.8 11.2 - 15.7 g/dL LAB HEMATOLOGY METHOD 10/04/2024 5:39 AM EDT [facility] HCT 34.7 34.0 - 45.0 % LAB HEMATOLOGY METHOD 10/04/2024 5:39 AM EDT [facility] Platelet Count 82(L) 155 - 369 10*3/uL LAB HEMATOLOGY METHOD 10/04/2024 5:39 AM EDT [facility] MCV 99(H) 79 - 98 fL LAB HEMATOLOGY METHOD 10/04/2024 5:39 AM EDT [facility] MCH 33.5(H) 26.0 - 32.0 pg LAB HEMATOLOGY METHOD 10/04/2024 5:39 AM EDT [facility] MCHC 34.0 30.7 - 35.5 g/dL LAB HEMATOLOGY METHOD 10/04/2024 5:39 AM EDT [facility] RDW 14.1 11.5 - 14.5 % LAB HEMATOLOGY METHOD 10/04/2024 5:39 AM EDT [facility] MPV 8.5(L) 8.8 - 12.5 fL LAB HEMATOLOGY METHOD 10/04/2024 5:39 AM EDT [facility] nRBC 0.0 <=0.0 per 100 WBCs LAB HEMATOLOGY METHOD 10/04/2024 5:39 AM EDT [facility] Differential Type Automated LAB HEMATOLOGY METHOD 10/04/2024 5:39 AM EDT [facility] Neutrophils % 55 % LAB HEMATOLOGY METHOD 10/04/2024 5:39 AM EDT [facility] Lymphocytes % 25 % LAB HEMATOLOGY METHOD 10/04/2024 5:39 AM EDT [facility] Monocytes % 12 % LAB HEMATOLOGY METHOD 10/04/2024 5:39 AM EDT [facility] Eosinophils % 7 % LAB HEMATOLOGY METHOD 10/04/2024 5:39 AM EDT [facility] Basophils % 0 % LAB HEMATOLOGY METHOD 10/04/2024 5:39 AM EDT [facility] Immature Granulocytes % 1 % LAB HEMATOLOGY METHOD 10/04/2024 5:39 AM EDT [facility] Neutrophils Absolute 2.06 1.60 - 6.10 10*3/uL LAB HEMATOLOGY METHOD 10/04/2024 5:39 AM EDT [facility] Lymphocytes Absolute 0.95(L) 1.20 - 3.90 10*3/uL LAB HEMATOLOGY METHOD 10/04/2024 5:39 AM EDT [facility] Monocytes Absolute 0.44 0.30 - 0.90 10*3/uL LAB HEMATOLOGY METHOD 10/04/2024 5:39 AM EDT [facility] Eosinophils Absolute 0.26 0.00 - 0.50 10*3/uL LAB HEMATOLOGY METHOD 10/04/2024 5:39 AM EDT [facility] Basophils Absolute 0.01 0.00 - 0.10 10*3/uL LAB HEMATOLOGY METHOD 10/04/2024 5:39 AM EDT [facility] Immature Granulocytes Absolute 0.03 0.00 - 0.06 10*3/uL LAB HEMATOLOGY METHOD 10/04/2024 5:39 AM EDT [facility] Blood Venous blood specimen / Unknown Venipuncture / Unknown 10/04/2024 5:20 AM EDT 10/04/2024 5:29 AM EDT Narrative [facility] - 10/04/2024 5:39 AM EDT Therapeutic decision making should be based on absolute values, rather than percentages. us Garcia Lutz MD LAB BLOOD ORDERABLES Final Resul t [facility] [address] [place] [address] * Phosphorus, Plasma (10/04/2024 5:20 AM EDT) Only the most recent of4 resultswithin the time period is included. Phosphorus, Plasma 3.2 2.5 - 4.5 mg/dL 10/04/2024 6:12 AM EDT [facility] Blood Venous blood specimen / Unknown Venipuncture / Unknown 10/04/2024 5:20 AM EDT 10/04/2024 5:29 AM EDT us Garcia Lutz MD LAB BLOOD ORDERABLES Final Resul t Performing Organization Address City/[facility]/ZIP Co de Phone Number [facility] [address] [place] [address] * Magnesium, Plasma (10/04/2024 5:20 AM EDT) Only the most recent of4 resultswithin the time period is included. Magnesium, Plasma 2.1 1.9 - 2.4 mg/dL 10/04/2024 6:12 AM EDT [facility] Blood Venous blood specimen / Unknown Venipuncture / Unknown 10/04/2024 5:20 AM EDT 10/04/2024 5:29 AM EDT Garcia Lutz MD LAB BLOOD ORDERABLES Final Resul t Performing Organization Address [facility] Co de Phone Number [facility] [address] [place] [address] * (ABNORMAL) Blood gas panel, venous (10/04/2024 5:20 AM EDT) Only the most recent of2 resultswithin the time period is included. pH, Venous 7.40 7.32 - 7.43 LAB HEMATOLOGY METHOD 10/04/2024 5:31 AM EDT [facility] pCO2, Venous 45 37 - 52 mmHg LAB HEMATOLOGY METHOD 10/04/2024 5:31 AM EDT [facility] pO2, Venous 82(H) 25 - 40 mmHg LAB HEMATOLOGY METHOD 10/04/2024 5:31 AM EDT [facility] SO2, Measured, Venous 98(H) 65 - 80 % LAB HEMATOLOGY METHOD 10/04/2024 5:31 AM EDT [facility] Base Excess, Venous 2.6 -2.0 - 3.0 mmol/L LAB HEMATOLOGY METHOD 10/04/2024 5:31 AM EDT [facility] Bicarbonate, Calculated, Venous 28(H) 22 - 26 mmol/L LAB HEMATOLOGY METHOD 10/04/2024 5:31 AM EDT [facility] Hematocrit, Whole Blood 36.4 34.0 - 45.0 % LAB HEMATOLOGY METHOD 10/04/2024 5:31 AM EDT [facility] Sodium, Whole Blood 141 136 - 145 mmol/L LAB HEMATOLOGY METHOD 10/04/2024 5:31 AM EDT [facility] Potassium, Whole Blood 4.0 3.6 - 4.9 mmol/L LAB HEMATOLOGY METHOD 10/04/2024 5:31 AM EDT [facility] Chloride, Whole Blood 107 97 - 107 mmol/L LAB HEMATOLOGY METHOD 10/04/2024 5:31 AM EDT [facility] Glucose, Whole Blood 83 74 - 99 mg/dL LAB HEMATOLOGY METHOD 10/04/2024 5:31 AM EDT [facility] Lactate, Venous, Whole Blood 0.9 0.5 - 2.2 mmol/L LAB HEMATOLOGY METHOD 10/04/2024 5:31 AM EDT [facility] Ionized Calcium, Whole Blood 4.8 4.6 - 5.1 mg/dL LAB HEMATOLOGY METHOD 10/04/2024 5:31 AM EDT [facility] Blood Venous blood specimen / Unknown Venipuncture / Unknown 10/04/2024 5:20 AM EDT 10/04/2024 5:29 AM EDT us Garcia Lutz MD LAB BLOOD ORDERABLES Final Resul t [facility] [address] [place] [address] * CT Angio Neck (10/03/2024 1:15 AM [...] Total DLP (Dose-Length Product): 1530.27 mGy.cm (accession [id number]), 1530.27 mGy.cm (accession [id number]), 1530.27 mGy.cm (accession [id number]). Please note: The reported value represents the [...] no aneurysm of either internal carotid artery. [place] and Major Peripheral Branches: There [...] Total DLP (Dose-Length Product): 1530.27 mGy.cm (accession [id number]),1530.27 mGy.cm (accession [id number]), 1530.27 mGy.cm (accession [id number]).Please note: The reported value represents the total [...] no aneurysm of either internal carotid artery. [place] and Major Peripheral Branches: There [...] Total DLP (Dose-Length Product): 1530.27 mGy.cm (accession [id number]), 1530.27 mGy.cm (accession [id number]), 1530.27 mGy.cm (accession [id number]). Please note: The reported value represents the [...] no aneurysm of either internal carotid artery. [place] and Major Peripheral Branches: There [...] Total DLP (Dose-Length Product): 1530.27 mGy.cm (accession [id number]),1530.27 mGy.cm (accession [id number]), 1530.27 mGy.cm (accession [id number]).Please note: The reported value represents the total [...] no aneurysm of either internal carotid artery. [place] and Major Peripheral Branches: There [...] 1:15 AM EDT) Anatomical Region Laterality Modality [place] Computed Tomogr aphy Impressions 10/03/2024 [...] Total DLP (Dose-Length Product): 1530.27 mGy.cm (accession [id number]), 1530.27 mGy.cm (accession [id number]), 1530.27 mGy.cm (accession [id number]). Please note: The reported value represents the [...] no aneurysm of either internal carotid artery. [place] and Major Peripheral Branches: There [...] Total DLP (Dose-Length Product): 1530.27 mGy.cm (accession [id number]),1530.27 mGy.cm (accession [id number]), 1530.27 mGy.cm (accession [id number]).Please note: The reported value represents the total [...] no aneurysm of either internal carotid artery. [place] and Major Peripheral Branches: There [...] QTC Interval 463 ms MUSE ECG P [place] 46 degrees MUSE ECG R [place] 9 degrees MUSE ECG T Wave [place] 29 degrees MUSE ECG Diagnosis Normal sinus [...] lactulose . -get EKG -transfer to progressive Garcia Lutz MD IN CLINIC/BEDSIDE ORDERABLES Fin [...] - 3 mmol/L 10/03/2024 12:49 AM EDT [facility] POCT SO2 Calculated, Venous 90.0(H) 65 - 80 % 10/03/2024 12:49 AM EDT [facility] POCT Lactate Venous 0.7 0.5 - 2.2 mmol/L 10/03/2024 12:49 AM EDT [facility] Waterworks Supervisor ID Khang Puri 10/03/2024 12:49 AM EDT [facility] LAB Device ID [id number] 10/03/2024 12:49 AM EDT [facility] Blood, Venous Venous blood specimen / Unknown 10/03/2024 12:44 AM EDT 10/03/2024 12:49 AM EDT us Momo Akhtar MD LAB POINT OF CARE TE ST DOCKED DEVICE UNSOLICITED RESULTS Final Result Performing Organization Address [facility] Co de Phone Number [facility] [address] [place] [address] * Light Blue Top (10/03/2024 12:42 AM EDT) Extra Hold for add-ons 10/03/2024 3:02 AM EDT [facility] Comment:Auto resulted. Blood Venous blood specimen / Unknown 10/03/2024 12:42 AM EDT 10/03/2024 12:46 AM EDT us Momo Akhtar MD LAB BLOOD ORDERABLES Final Resu lt [facility] [address] [place] [address] * Multi Drug Resistance Test (10/01/2024 11:36 AM EDT) Culture No growth at day 1 10/02/2024 1:51 PM EDT [facility] Swab (Nares and Dorys Rectal) Non-blood Collection / Unknown 10/01/2024 11:36 AM EDT 10/01/2024 11:45 AM EDT Narrative [facility] - 10/02/2024 1:51 PM EDT This test was developed and its performance characteristics determined by the [facility]. Although the media is FDA-approved, it is not FDA-approved for all specimen types submitted. The FDA has determined that such clearance or approval is not necessary. This test is used for surveillance purposes. It should not be regarded as investigational or for research. The [facility] is certified under the Clinical Laboratory Improvement Amendments of 1988 (CLIA-88) as qualified to perform high complexity clinical laboratory testing. Momo Akhtar MD LAB MICROBIOLOGY - GENERAL ORDE [facility] Final Result Performing Organization Address City/[facility]/[place] [address] * Folate (10/01/2024 5:53 AM EDT) Folate, Serum 9.7 >4.6 ng/mL 10/01/2024 6:[address] [facility] Blood Venous blood specimen / Unknown Venipuncture / Unknown 10/01/2024 5:53 AM EDT 10/01/2024 6:06 AM EDT Leon Ornelas APRN, DNP LAB BLOOD ORDERABLES Fi nal Result Performing Organization Address [facility] [place] [address] * Zinc (10/01/2024 4:40 AM EDT) Zinc, Serum/Plasma 62.6 60.0 - 120.0 ug/dL 10/03/2024 5:03 AM EDT [facility] ([facility]) Blood Venous blood specimen / Unknown Venipuncture / Unknown 10/01/2024 4:40 AM EDT 10/01/2024 5:01 AM EDT Narrative [facility] ([place]) - 10/03/2024 5:03 AM EDT [...] developed and its performance characteristics determined by [facility]. It has not been cleared or approved by the US Food and Drug Administration. This test was performed in a CLIA certified laboratory and is intended for clinical purposes. Performed By: [facility] [address] [place] [address] Ore Dressing Engineer: Darryl Corado MD, PhD CLIA Number: [id number] Leon Ornelas APRN, DNP LAB BLOOD ORDERABLES Fi nal Result Performing Organization Address [facility] Co de Phone Number [facility] ([place]) [address] [place] [address] * Alcohol Urine (10/01/2024 2:50 AM EDT) Alcohol Urine Negative Negative 10/01/2024 5:40 AM EDT [facility] Urine Urine specimen obtained by clean catch procedure / Unknown Non-blood Collection / Unknown 10/01/2024 2:50 AM EDT 10/01/2024 3:04 AM EDT Narrative [facility] - 10/01/2024 5:40 AM EDT The correlation between urine and serum ethanol concentration is highly variable. Test performed by Gas Chromatography at the [facility]. This test was developed and its performance characteristics determined by [facility]. It has not been cleared or approved by the FDA.The laboratory is regulated under CLIA as qualified to perform high-complexity testing. This test is used for clinical purposes only. Leon Ornelas APRN, DNP LAB URINE ORDERABLES Fi nal Result Performing Organization Address City/[facility]/ZIP Co de Phone Number [facility] [address] [place] [address] * Blood Culture (Aerobic/Anaerobet Set) (10/01/2024 12:40 AM EDT) Culture No growth at day 5 10/06/2024 2:02 AM EDT [facility] Blood Venous blood specimen / Unknown Venipuncture / Unknown 10/01/2024 12:40 AM EDT 10/01/2024 1:46 AM EDT Narrative [facility] - 10/06/2024 2:02 AM EDT Low blood volume submitted, results may be compromised Leon Ornelas APRN, DNP LAB MICROBIOLOGY - GENE RAL ORDERABLES Final Result [facility] [address] [place] [address] * (ABNORMAL) Oxcarbazepine Metabolite, Serum (SO) (09/30/2024 10:22 PM EDT) OXCARB Metabolite 5.6(L) 10.0 - 35.0 ug/mL 10/03/2024 3:14 PM EDT [facility] ([facility]) Blood Venous blood specimen / Unknown Venipuncture / Unknown 09/30/2024 10:22 PM EDT 09/30/2024 10:43 PM EDT Narrative [facility]) - 10/03/2024 3:14 PM EDT INTERPRETIVE INFORMATION: Oxcarbazepine Metabolite, Serum Therapeutic Range: 10.0 - 35.0 ug/mL Toxic Range: >=40.0 ug/mL This test measures monohydroxyoxcarbazepine (MHD). Adverse effects may include dizziness, fatigue, nausea, headache, somnolence, ataxia, and tremor. Performed By: [facility] [address] [place] [address] Ore Dressing Engineer: Darryl Corado MD, PhD CLIA Number: [id number] Leon Ornelas APRN, OLVIN LAB REF LAB BLOOD AND F LUID ORD Final Result [facility] ([facility]) [address] [place] [id number] * Alpha Fetoprotein, Serum (09/30/2024 10:22 PM EDT) Pathologist [facility] Alpha Fetoprotein, Serum <2.3 <10.0 ng/mL 09/30/2024 11:58 PM EDT [facility] Blood Venous blood specimen / Unknown Venipuncture / Unknown 09/30/2024 10:22 PM EDT 09/30/2024 10:34 PM EDT Narrative [facility] - 09/30/2024 11:58 PM EDT Performed by [facility] electrochemiluminescent immunoassay which is traceable to the 1st AFP IRP WHO Reference standard 72/255. Results obtained with different test methods or kits cannot be used interchangeably. Leon Ornelas APRN, OLVIN LAB BLOOD ORDERABLES Fi nal Result Performing Organization Address [facility] Co de Phone Number [facility] [address] [place] [address] * Hepatitis panel, acute (09/30/2024 10:22 PM EDT) [facility] Hepatitis B Surf Antigen Negative Negative 10/01/2024 12:57 AM EDT [facility] Hepatitis A Antibody IgM Negative Negative 10/01/2024 12:57 AM EDT [facility] Hepatitis B Core Antibody IgM Negative Negative 10/01/2024 12:57 AM EDT [facility] Blood Venous blood specimen / Unknown Venipuncture / Unknown 09/30/2024 10:22 PM EDT 09/30/2024 10:34 PM EDT Narrative [facility] - 10/01/2024 12:57 AM EDT Hepatitis C Antibody previously reported on patient within 24hrs and will not be repeated on this panel. See previous results below: Hepatitis C Antibody Date Value Ref Range Status 09/30/2024 Negative Negative Final Leon Ornelas APRN, OLVIN LAB BLOOD ORDERABLES Fi nal Result Performing Organization Address [facility] Co de Phone Number [facility] [address] [place] [address] * Vitamin D 1,25 dihydroxy (09/30/2024 10:22 PM EDT) VITAMIN D, 1, 25-DIHYDROXY 41.0 19.9 - 79.3 pg/mL 10/01/2024 1:49 PM EDT [facility] Blood Venous blood specimen / Unknown Venipuncture / Unknown 09/30/2024 10:22 PM EDT 09/30/2024 10:35 PM EDT Leon W Ceci ANNN, DNP LAB BLOOD ORDERABLES Fi nal Result [facility] [address] [place] [address] * Ferritin (09/30/2024 10:22 PM EDT) Ferritin, Serum 81 13 - 150 ng/mL 09/30/2024 11:19 PM EDT [facility] Blood Venous blood specimen / Unknown Venipuncture / Unknown 09/30/2024 10:22 PM EDT 09/30/2024 10:34 PM EDT Leon Lou Ceci T[place]O, DNP LAB BLOOD ORDERABLES Fi nal Result Performing Organization Address City/[facility]/ZIP Co de Phone Number [address] [address] * Vitamin B12 (09/30/2024 10:22 PM EDT) Vitamin B12, Serum 607 210 - 1,033 pg/mL 09/30/2024 11:19 PM EDT [facility] Blood Venous blood specimen / Unknown Venipuncture / Unknown 09/30/2024 10:22 PM EDT 09/30/2024 10:34 PM EDT Leon Lou Ceci [place], DNP LAB BLOOD ORDERABLES Fi nal Result Performing Organization Address City/[facility]/ZIP Co de Phone Number [address] [address] * Cortisol (09/30/2024 10:22 PM EDT) Cortisol 3.70 Before 10am: 3.7 - 19.4. After 5pm: 2.9 - 17.3 ug/dL 09/30/2024 11:59 PM EDT [facility] Comment:Testing performed on [place] Friction Welding Machine Operator, standardized against [facility] Reference Standard concentration values assigned by LC-MS/MS and verified by BCR 192 and BCR 193 certified reference materials. Blood Venous blood specimen / Unknown Venipuncture / Unknown 09/30/2024 10:22 PM EDT 09/30/2024 10:35 PM EDT Leon Ornelas APRN, DNP LAB REF LAB BLOOD AND F LUID ORD Final Result Performing Organization Address City/[facility]/ZIP Co de Phone Number [facility] [address] [place] [address] * Sodium, urine, random (09/30/2024 10:12 PM EDT) Sodium, Urine 67 mmol/L 09/30/2024 11:06 PM EDT [facility] Urine Urine specimen obtained by clean catch procedure / Unknown Non-blood Collection / Unknown 09/30/2024 10:12 PM EDT 09/30/2024 10:35 PM EDT Leon Ornelas APRN, DNP LAB URINE ORDERABLES Fi nal Result Performing Organization Address City/[facility]/ZIP Co de Phone Number [facility] [address] [place] [address] * Osmolality, urine (09/30/2024 10:12 PM EDT) Osmolality, Urine 357 50 - 1,200 mOsm/kg 09/30/2024 11:14 PM EDT [facility] Urine Urine specimen obtained by clean catch procedure / Unknown Non-blood Collection / Unknown 09/30/2024 10:12 PM EDT 09/30/2024 10:35 PM EDT Leon Ornelas APRN, DNP LAB URINE ORDERABLES Fi nal Result Performing Organization Address City/[facility]/ZIP Co de Phone Number [facility] [address] [place] [address] * Creatinine, urine, random (09/30/2024 10:12 PM EDT) Creatinine, Urine 71 mg/dL 09/30/2024 11:06 PM EDT [facility] Urine Urine specimen obtained by clean catch procedure / Unknown Non-blood Collection / Unknown 09/30/2024 10:12 PM EDT 09/30/2024 10:35 PM EDT Leon Ornelas APRN, DNP LAB URINE ORDERABLES Fi nal Result Performing Organization Address [facility]/ZIP Co de Phone Number [facility] [address] [place] [address] * SARS CoV-2/COVID-19 by PCR - Rapid (09/30/2024 10:09 PM EDT) Pathologist [facility] SARS CoV-2/COVID-1 9 RNA PCR Result Not Detected Not Detected 09/30/2024 11:37 PM EDT [facility] Swab Nasopharyngeal structure / Unknown Non-blood Collection / Unknown 09/30/2024 10:09 PM EDT 09/30/2024 10:41 PM EDT Narrative [facility] - 09/30/2024 11:37 PM [...] signs and symptoms consistent with COVID-19. Leon W Mingua SOLUTIONS CONSULTANT, DNP LAB MICROBIOLOGY - GENE RAL ORDERABLES Final Result [facility] [address] [place] [address] * Nasopharyngeal Respiratory Panel (09/30/2024 10:09 PM EDT) Nasopharyngeal Respiratory PCR Interpretation Not Detected for all analytes Not Detected for all analytes 10/01/2024 12:42 AM EDT [facility] Swab Nasopharyngeal structure / Unknown Non-blood Collection / Unknown 09/30/2024 10:09 PM EDT 09/30/2024 10:41 PM EDT Narrative [facility] - 10/01/2024 12:42 AM [...] Respiratory PCR Panel is performed using the Web and [employer] ePlex instrument. This test is FDA approved for use with Nasopharyngeal swabs only. This test is used for clinical purposes. It should not be regarded as investigational or for research. The [facility] Clinical Microbiology Laboratory is certified under the Clinical Laboratory Improvement Amendments of 1988 (CLIA-88) as qualified to perform high complexity clinical laboratory testing. Leon Ornelas SOLUTIONS CONSULTANT, OLVIN LAB MICROBIOLOGY - GENE RAL ORDERABLES Final Result Performing Organization Address City/[facility]/ZIP Co de Phone Number [facility] [address] [place] [address] * US Abdomen Doppler Limited (09/30/2024 9:44 [...] MD on 09/30/2024 9:48 PM Leon Ornelas APRN, OLVIN IMG US PROCEDURES Final Result * Urine Garcia Panel (09/30/2024 6:44 PM EDT) Extra Reflex urine culture not indicated 09/30/2024 9:01 PM EDT [facility] Urine Urine specimen obtained by clean catch procedure / Unknown Non-blood Collection / Unknown 09/30/2024 6:44 PM EDT 09/30/2024 7:09 PM EDT us Zack Teran MD LAB URINE ORDERABLES Final Re sult Performing Organization Address City/[facility]/ZIP Co de Phone Number [facility] [address] [place] [address] * Urinalysis Microscopic Examination (09/30/2024 6:44 PM EDT) Urine Urine specimen obtained by clean catch procedure / Unknown Non-blood Collection / Unknown 09/30/2024 6:44 PM EDT 09/30/2024 6:56 PM EDT us Zack Teran MD LAB URINE ORDERABLES Final Re sult Performing Organization Address City/[facility]/ZIP Co de Phone Number [facility] [address] [place] [address] * Drug abuse screen (09/30/2024 6:44 PM EDT) Amphetamine Screen Urine Negative Cutoff: 500 ng/mL 09/30/2024 7:17 PM EDT [facility] Benzodiazepines Screen Urine Negative Cutoff: 200 ng/mL 09/30/2024 7:17 PM EDT [facility] Cannabinoid Screen Urine Negative Cutoff: 50 ng/mL 09/30/2024 7:17 PM EDT [facility] Cocaine Screen Urine Negative Cutoff: 300 ng/mL 09/30/2024 7:17 PM EDT [facility] Barbiturate Screen Urine Negative Cutoff: 200 ng/mL 09/30/2024 7:17 PM EDT [facility] Opiate Screen Urine Negative Cutoff: 300 ng/mL 09/30/2024 7:17 PM EDT [facility] Methadone Screen Urine Negative Cutoff: 300 ng/mL 09/30/2024 7:17 PM EDT [facility] Buprenorphine Screen Urine Negative Cutoff: 10 ng/mL 09/30/2024 7:17 PM EDT [facility] Fentanyl Screen Urine Negative Cutoff: 1 ng/mL 09/30/2024 7:17 PM EDT [facility] Oxycodone Screen Urine Negative Cutoff: 100 ng/mL 09/30/2024 7:17 PM EDT [facility] Urine Urine specimen obtained by clean catch procedure / Unknown Non-blood Collection / Unknown 09/30/2024 6:44 PM EDT 09/30/2024 6:56 PM EDT us Zack Teran MD LAB URINE ORDERABLES Final Re sult [facility] [address] [place] [address] * (ABNORMAL) Urinalysis with reflex microscopic (Culture NOT Included) (09/30/2024 6:44 PM EDT) Color, Urine Yellow LAB URINALYSIS - AUTOMATED METHOD 09/30/2024 7:19 PM EDT [facility] Clarity, Urine Clear LAB URINALYSIS - AUTOMATED METHOD 09/30/2024 7:19 PM EDT [facility] Spec Swiss, Urine >1.030(H) 1.005 - 1.030 LAB URINALYSIS - AUTOMATED METHOD 09/30/2024 7:19 PM EDT [facility] pH, Urine 7.0 5.0 - 8.0 LAB URINALYSIS - AUTOMATED METHOD 09/30/2024 7:19 PM EDT [facility] Protein, Urine Negative Negative mg/dL LAB URINALYSIS - AUTOMATED METHOD 09/30/2024 7:19 PM EDT [facility] Glucose, Urine Negative Negative mg/dL LAB URINALYSIS - AUTOMATED METHOD 09/30/2024 7:19 PM EDT [facility] Ketones, Urine Negative Negative mg/dL LAB URINALYSIS - AUTOMATED METHOD 09/30/2024 7:19 PM EDT [facility] Blood, Urine Small(A) Negative LAB URINALYSIS - AUTOMATED METHOD 09/30/2024 7:19 PM EDT [facility] Bilirubin, Urine Negative Negative LAB URINALYSIS - AUTOMATED METHOD 09/30/2024 7:19 PM EDT [facility] Urobilinogen, Urine 1.0 0.2 to 1.0 mg/dL LAB URINALYSIS - AUTOMATED METHOD 09/30/2024 7:19 PM EDT [facility] Leukocytes, Urine Negative Negative LAB URINALYSIS - AUTOMATED METHOD 09/30/2024 7:19 PM EDT [facility] Nitrite, Urine Negative Negative LAB URINALYSIS - AUTOMATED METHOD 09/30/2024 7:19 PM EDT [facility] RBC, Urine 4 - 10(A) 0 to 3 /HPF LAB URINALYSIS - AUTOMATED METHOD 09/30/2024 7:19 PM EDT [facility] Comment:This result was prev iously suppressed from the chart. WBC, Urine 0 - 5 0 to 5 /HPF LAB URINALYSIS - AUTOMATED METHOD 09/30/2024 7:19 PM EDT [facility] Comment:This result was prev iously suppressed from the chart. Squamous Epithelial Cells 0 - 2 0 to 5 /HPF LAB URINALYSIS - AUTOMATED METHOD 09/30/2024 7:19 PM EDT [facility] Comment:This result was prev iously suppressed from the chart. Hyaline Casts 0 - 2 0 to 5 /LPF LAB URINALYSIS - AUTOMATED METHOD 09/30/2024 7:19 PM EDT [facility] Comment:This result was prev iously suppressed from the chart. Bacteria, Urine Negative Negative LAB URINALYSIS - AUTOMATED METHOD 09/30/2024 7:19 PM EDT [facility] Comment:This result was prev iously suppressed from the chart. Urine Urine specimen obtained by clean catch procedure / Unknown Non-blood Collection / Unknown 09/30/2024 6:44 PM EDT 09/30/2024 6:56 PM EDT us Zack Teran MD LAB URINE ORDERABLES Final Re sult [facility] [address] [place] [address] * Troponin T, High Sensitivity, 2 Hour, Plasma (09/30/2024 5:25 PM EDT) Troponin T, High Sensitivity, 2 Hour 11 <14 ng/L 09/30/2024 6:01 PM EDT [facility] Blood Venous blood specimen / Unknown Venipuncture / Unknown 09/30/2024 5:25 PM EDT 09/30/2024 5:34 PM EDT us Zack Teran MD LAB BLOOD ORDERABLES Final Re sult Performing Organization Address [facility]/ZIP Co de Phone Number [facility] [address] [place] [address] * (ABNORMAL) Ammonia (09/30/2024 5:25 PM EDT) Ammonia 149(H) 11 - 51 umol/L 09/30/2024 6:08 PM EDT [facility] Comment:Improper specimen joe ndling may falsely increase results. Blood Venous blood specimen / Unknown Venipuncture / Unknown 09/30/2024 5:25 PM EDT 09/30/2024 5:35 PM EDT Zack Teran MD LAB BLOOD ORDERABLES Final Re sult Performing Organization Address [facility] Co de Phone Number [facility] [address] [place] [address] * CT Abdomen Pelvis w IV Contrast [...] HIV 1/2 Differentiation (09/30/2024 2:51 PM EDT) Pathologist [facility] HIV 1 & 2 Antibody/Antigen Screen Non Reactive Non Reactive 09/30/2024 3:46 PM EDT [facility] Comment:Screening for HIV 1 & 2 antibodies, and P24 antigen is NONREACTIVE. No confirmatory testing is required. Blood Venous blood specimen / Unknown Venipuncture / Unknown 09/30/2024 2:51 PM EDT 09/30/2024 3:04 PM EDT us Zack Teran MD LAB BLOOD ORDERABLES Final Re sult Performing Organization Address City/[facility]/ZIP Co de Phone Number [facility] [address] [place] [address] * Troponin now and 120 min (09/30/2024 2:51 PM EDT) [facility] Troponin T, High Sensitivity, 0 Hour 12 <14 ng/L 09/30/2024 4:09 PM EDT [facility] Blood Venous blood specimen / Unknown Venipuncture / Unknown 09/30/2024 2:51 PM EDT 09/30/2024 2:56 PM EDT us Zack Teran MD LAB BLOOD ORDERABLES Final Re sult [facility] [address] [place] [address] * Iron & Total Iron Binding Capacity, Plasma (Includes Transferrin) (09/30/2024 2:51 PM EDT) [facility] Iron, Plasma 123 30 - 160 ug/dL 09/30/2024 11:52 PM EDT [facility] Transferrin, Plasma 239 200 - 360 mg/dL 09/30/2024 11:52 PM EDT [facility] Total Iron Binding Capacity, Plasma 299 240 - 450 ug/mL 09/30/2024 11:52 PM EDT [facility] Transferrin Saturation 41 14 - 50 % 09/30/2024 11:52 PM EDT [facility] Blood Venous blood specimen / Unknown Venipuncture / Unknown 09/30/2024 2:51 PM EDT 09/30/2024 2:56 PM EDT Leon W Ceci ANNN, DNP LAB BLOOD ORDERABLES Fi nal Result Performing Organization Address City/[facility]/ZIP Co de Phone Number [facility] [address] [place] [address] * (ABNORMAL) PT-INR (09/30/2024 2:51 PM EDT) Prothrombin Time 14.8(H) 12.0 - 14.3 sec 09/30/2024 3:[address] [facility] INR 1.2(H) 0.9 - 1.1 09/30/2024 3:11 PM EDT [facility] Blood Venous blood specimen / Unknown Venipuncture / Unknown 09/30/2024 2:51 PM EDT 09/30/2024 2:56 PM EDT Narrative [facility] - 09/30/2024 3:11 PM EDT OPTIMAL INR RANGES FOR PATIENT ON ORAL ANTICOAGULANT THERAPY Prevention of venous thromboembolism INR 2.0 to 3.0 In patients with heart disease: Atrial fibrillation INR 2.0 to 3.0 Valvular heart disease INR 2.0 to 3.0 Tissue heart valves INR 2.0 to 3.0 Mechanical prosthetic valves INR 2.5 to 3.5 Prevention of recurrent MN INR 2.5 to 3.5 Zack Teran MD LAB BLOOD ORDERABLES Final Re sult [facility] [address] [place] [address] * (ABNORMAL) Thyroid Stimulating Hormone, Plasma (09/30/2024 2:51 PM EDT) Thyroid Stimulating Hormone, Plasma 4.87(H) 0.40 - 4.20 uIU/mL 09/30/2024 4:09 PM EDT [facility] Blood Venous blood specimen / Unknown Venipuncture / Unknown 09/30/2024 2:51 PM EDT 09/30/2024 2:56 PM EDT Narrative [facility] - 09/30/2024 4:09 PM EDT Trimester Specific Ranges TSH ( IU/mL) 1st Trimester 0.1 - 3.0 2nd Trimester 0.19 - 4.06 3rd Trimester 0.3 - 3.7 us Zack Teran MD LAB BLOOD [place] [address] * Free T4, Plasma (09/30/2024 2:51 PM EDT) Free T4, Plasma 0.8 0.8 - 1.7 ng/dL 09/30/2024 4:06 PM EDT [facility] Blood Venous blood specimen / Unknown Venipuncture / Unknown 09/30/2024 2:51 PM EDT 09/30/2024 2:56 PM EDT Narrative [facility] - 09/30/2024 4:06 PM EDT Free T4 Trimester Specific Ranges 1st Trimester 0.9 - 1.50 ng/dL 2nd Trimester 0.7 - 1.40 ng/dL 3rd Trimester 0.7 - 1.24 ng/dL us Zack Teran MD LAB BLOOD ORDERABLES Final Re sult Performing Organization Address City/[facility]/[place] [address] * Osmolality (09/30/2024 2:51 PM EDT) Osmolality, Serum 291 275 - 295 mOsm/Kg 09/30/2024 10:20 PM EDT [facility] Blood Venous blood specimen / Unknown Venipuncture / Unknown 09/30/2024 2:51 PM EDT 09/30/2024 2:56 PM EDT us Leon Ornelas SOLUTIONS CONSULTANT, DNP LAB BLOOD ORDERABLES Fi nal Result [facility] [address] [place] [address] * Lipase (09/30/2024 2:51 PM EDT) Lipase, Plasma 41 19 - 63 U/L 09/30/2024 4:09 PM EDT [facility] Blood Venous blood specimen / Unknown Venipuncture / Unknown 09/30/2024 2:51 PM EDT 09/30/2024 2:56 PM EDT us Zack Teran MD LAB BLOOD ORDERABLES Final Re sult Performing Organization Address City/[facility]/ZIP Co de Phone Number [facility] [address] [place] [address] * Lactic acid, venous (09/30/2024 2:50 PM EDT) [facility] Lactate, Venous, Whole Blood 1.1 0.5 - 2.2 mmol/L LAB HEMATOLOGY METHOD 09/30/2024 3:05 PM EDT [facility] Blood Venous blood specimen / Unknown Venipuncture / Unknown 09/30/2024 2:50 PM EDT 09/30/2024 3:04 PM EDT us Zack Teran MD LAB BLOOD ORDERABLES Final Re sult Performing Organization Address City/[facility]/[place] [address] * Hepatitis C Antibody - ED (09/30/2024 2:50 PM EDT) [facility] Hepatitis C Antibody Negative Negative 09/30/2024 3:44 PM EDT [facility] Blood Venous blood specimen / Unknown Venipuncture / Unknown 09/30/2024 2:50 PM EDT 09/30/2024 3:04 PM EDT us Zack Teran MD LAB BLOOD ORDERABLES Final Re sult [facility] [address] [place] [address] * Type and screen (09/30/2024 2:50 PM [...] ORDERABLE S Final Result Performing Organization Address [facility]/ZIP Co de Phone Number BLOOD BANK [address] [place] [address] * Hemoglobin A1c (06/27/2021 8:20 AM EST) Hemoglobin A1c 4.8 <5.7 % 06/27/2021 7:11 PM EST [facility] Blood Venous blood specimen / Unknown Venipuncture / Unknown 06/27/2021 8:20 AM EST 06/27/2021 8:30 AM EST Ryan Javed MD LAB BLOOD ORDERABLES Final Resul t Performing Organization Address City/[facility]/ZIP Co de Phone Number [facility] [address] [place] [address] * Cytology (12/11/2018 12:00 AM EDT) 12/11/2018 12/12/2018 5:1 3 PM EDT Narrative [facility] - 12/16/2018 6:58 AM EDT [facility] MR #: [id number] [facility] [address] [place] [id number] 1970 (Age: 48) FW Collect Date: 12/11/2018 00:00 Receipt Date: 12/12/2018 17:13 Page 1 DEPARTMENT OF PATHOLOGY AND LABORATORY MEDICINE CYTOPATHOLOGY REPORT Email: [email or web address] ATTENDING MD/Practitioner: Abraham Steiner MD Service: [facility] Location: [facility] Reported: 12/16/2018 06:58 Collected: 12/11/2018 00:00 INTERPRETATION A. THIN PREP (CERVICAL/VAGINAL): NEGATIVE FOR INTRAEPITHELIAL LESION OR MALIGNANCY. INFLAMMATORY CHANGE. SATISFACTORY FOR EVALUATION; ENDOCERVICAL/ TRANSFORMATION ZONE COMPONENT PRESENT. Slide examined with [employer] ThinPrep Imaging System but manually screened for [...] results is suggested (please call Microbiology at [phone] for results). CLINICAL INFORMATION: Menstrual History: Cyclic Date of Last Menstrual Period: {Not Provided} Other Clinical Conditions: If ASCUS and > 24 years of age, HPV/DNA testing requested. SPECIMEN DESCRIPTION: A: THIN PREP (CERVICAL/VAGINAL) THIN PREP PROCESS CELLULAR ENHANCEMENT ICD: F: A; RT IMAGE [id number] SNOMED CODES: A; [id number] In cases where a pathologist has signed out the report, the service has been rendered in part by a resident. The signing pathologist has performed and is responsible for the reported pathologic evaluation. Abigail Steiner MD LAB PATHOLOGY ORDERABLES Rosie ewing Result [facility] from Last 3 Months or Most Recently Relevant to Health Maintenance Insurance [facility] MEDICAID ANTH Advance Directives * Full Code (Latest Code [...] Patient has decision-making capacity? Yes Care Teams Mysql Database Administrator Relationship Specialty Start Date End Date Celsa Pereira RN [place] [id number] PCP - General 10/01/24
--- OUTSIDE RECORDS SUMMARY | 2024-11-21 07:22 | XMS_ITS | Encounter Summary ---
Author Organization Healthcare Address [address] [id number] Care Team Providers Care Metal Treater Name Role Phone Celsa Pereira RN Primary [...] were you homeless or living in a chcf (including now)? No 10/01/2024 Utilities Answer Date Recorded In the past 12 months has th e [employer], gas, oil, or water company threatened to [...] documented as of this encounter Care Teams Metal Treater Relationship Specialty Start Date End Date Celsa Pereira RN [address] [address] PCP - General 10/01/24 documented as of this encounter
--- OUTSIDE RECORDS SUMMARY | 2024-11-21 07:22 | XMS_ITS | Encounter Summary ---
Author Organization Healthcare Address [address] [phone] Care Team Providers Care Device Engineer Name Role Phone Pcp, No Primary Care [...] money to buy more. Never true 10/02/19 Within the past 12 months, t he [...] any time in the past 12 m [facility], were you homeless or living in a intermediate (including now)? No 10/01/2024 Utilities Answer Date Recorded In the past 12 months has e [employer], gas, oil, or water company threatened to [...] documented as of this encounter Care Teams Device Engineer Relationship Specialty Start Date End Date Pcp, No [address] [place] [address] PCP - General Family Medicine 09/30/24 09/30/24 documented as of this encounter
--- OUTSIDE RECORDS SUMMARY | 2024-11-21 07:23 | XMS_ITS | Encounter Summary ---
Author Organization Healthcare Address [address] [phone] Care Team Providers Care Call Center Specialist Name Role Phone Celsa Pereira RN Primary [...] any time in the past 12 m [facility], were you homeless or living in a fci (including now)? No 10/01/2024 Utilities Answer Date Recorded In the past 12 months has th e [employer], gas, oil, or water company threatened to [...] documented as of this encounter Care Teams Call Center Specialist Relationship Specialty Start Date End Date Celsa Pereira RN [place] [phone] PCP - General 10/01/24 documented as of this encounter
--- OUTSIDE RECORDS SUMMARY | 2024-11-21 07:23 | XMS_ITS | Encounter Summary ---
Author Organization Healthcare Address [address] [phone] Care Team Providers Care Bank Appraiser Name Role Phone Celsa Pereira RN Primary [...] any time in the past 12 m [facility], were you homeless or living in a residential (including now)? No 10/01/2024 Utilities Answer Date Recorded In the past 12 months has th e [employer], gas, oil, or water company threatened to [...] documented as of this encounter Care Teams Bank Appraiser Relationship Specialty Start Date End Date Celsa Pereira RN [place] [phone] PCP - General 10/01/24 documented as of this encounter
[2024-11-21 07:28] VITALS: BP 126/62; PULSE 61; RESP 18; TEMP 37.1; O2SAT 92
[2024-11-21 07:30] VITALS: BP 144/97; PULSE 69; O2SAT 93
--- NOTE | 2024-11-21 07:34 | PC.NURSE ---
patient is ready fro D/C called Duncan calderon for patient to receive a ride [facility] facility[facility]'s in their own personal vehicles anymore. Call placed to the [facility] A van for transport, tiera states she will call back when she gets back to the office to arrange a time for transport.
--- OUTSIDE RECORDS SUMMARY | 2024-12-24 20:00 | XMS_ITS | Clinical Summary ---
Author Organization [facility] ([facility] Address [address] [place] [address] Phone Care Team Providers Care Liquor Inspector Name Role Phone MILLIE VELASCO APRN Unavailable Unavailable SHYAM OT, DEREK Unavailable Unavailable VALARIE PT, KAI Unavailable Unavailable Payers Payer Name Policy Type Policy Number Effective Date Expira tion Date ANTHEM BCBS FFS [id number] MODERATED OON PAYOR FFS [id number] Problems Condition Name Condition Details Condition Category [...] RESID DEFICITS Active 10-27 00:00: 00 OTHER PENITENTIARY (CURRENT) DRUG THERAPY Active 10-27 00:00: 00 PENITENTIARY (CURRENT) USE OF NON-STEROIDA L NON-INFLAM (NSAID) Active 10-27 00:00: 00 Problems related to health literacy Active 10-27 00:00: 00 HISTORY OF FALLING Active 10-27 00:00: 00 Allergies, Adverse Reactions, Alerts Allergy Name Allergy Type Status Severity Reaction(s) Onset Date Inactive Date Treating Clinician Comments NKA Propensity to adverse reactions Active 2024-10 20:30:2 2 Vital Signs Vital Name Observation Time Observation Value Commen ts Temperature 2024-11-18 14:32:00.000 98 [degF] Temperature 2024-11-17 12:55:00.000 98.1 [degF] Temperature 2024-11-12 12:56:00.000 97.9 [degF] Temperature 2024-11-04 14:48:00.000 97.6 [degF] Temperature 2024-10-27 13:06:00.000 97.9 [degF] BMI (%) 2024-10-27 12:58:53.000 39 kg/m2 Height 2024-10-27 12:58:44.000 65 [in_us] Pulse 2024-11-18 14:32:00.000 68 /min Pulse 2024-11-17 12:55:00.000 76 /min Pulse 2024-11-12 12:56:00.000 65 /min Pulse 2024-11-04 14:48:00.000 66 /min Pulse 2024-10-27 13:06:00.000 61 /min O2 Saturation (%) 2024-11-18 14:32:00.000 98 % O2 Saturation (%) 2024-11-17 12:55:00.000 98 % O2 Saturation (%) 2024-11-12 12:56:00.000 97 % O2 Saturation (%) 2024-11-04 14:48:00.000 95 % O2 Saturation (%) 2024-10-27 13:06:00.000 94 % Respirations 2024-11-18 14:32:00.000 18 /min Respirations 2024-11-17 12:55:00.000 18 /min Respirations 2024-11-12 12:56:00.000 18 /min Respirations 2024-11-04 14:48:00.000 18 /min Respirations 2024-10-27 13:06:00.000 18 /min Weight (lbs) 2024-10-27 12:58:53.000 235 [lb_av] Systolic Blood Pressure 2024-11-18 14:32:00.000 122 mm [Hg] Systolic Blood Pressure 2024-11-17 12:55:00.000 117 mm [Hg] Systolic Blood Pressure 2024-11-12 12:56:00.000 106 mm [Hg] Systolic Blood Pressure 2024-11-04 14:48:00.000 128 mm [Hg] Systolic Blood Pressure 2024-10-27 13:06:00.000 124 mm [Hg] Diastolic Blood Pressure 2024-11-18 14:32:00.000 [...] Test AGENCY BABAK L DISCHARGE PATIENT TO PHYSICIAN/HEALTH CARE PROVIDER. MAY ACCEPT ORDERS FROM THE FOLLOWING PHYSICIAN(S): [code = AGENCY WILL DISCHARGE PATIENT TO PHYSICIAN/HEALTH CARE [...] MAINTAIN HEALTH.] Progress Notes * <paragraph>[Visit Date: 2024-11-18 by DEREK HOWE OT]:</paragraph><paragraph>PATIENT AGREEABLE TO OT VISIT. PATIENT LYING IN BED UPON OT ARRIVAL. PATIENT REPORTED SHE STILL FEELS SICK TO HER STOMACH. PATIENT PARTICIPATED WELL. PATIENT EDUCATION ON HEP, SAFETY, ADLS, TRANSFERS, AND EC/WS TECHNIQUES. TAXING EFFORT AND REQUIRES ASSISTANCE TO LEAVE HOME.</paragraph> * <paragraph>[Visit Date: 2024-11-17 by KAI SHEPPARD PT]:</paragraph><paragraph>LYING IN BED UPON ARRIVAL, AGREEABLE TO THERAPY. NO ABDOMINAL OR BACK PAIN BUT PATIENT STATES SHE HASNT BEEN UP MUCH YET TODAY. PATIENT REPORTS DECREASED APPETITE. HAS HAD BM BUT NOT MUCH. PATIENT CONTINUES TO REPETITIVELY STATE THAT SHE FEELS BAD LIKE SHE DID BEFORE THE HOSPITAL AND WANTS TO GO BACK TO THE HOSPITAL TO FEEL BETTER. REACHED OUT TO PRIMARY CARE PHYSICIAN, AWAITING CONTACT BACK. PATIENT AMBULATES AND TRANSFERS WITH CONTACT GUARD ASSIST UTILIZING FOUR-WHEELED WALKER. CONTINUES TO DEMONSTRATE DEFICITS AND ENDURANCE AND STRENGTH RELATED TO ENCEPHALOPATHY. RECOMMEND CONTINUED SKILLED PHYSICAL THERAPY TO ADDRESS DEFICITS AND PROMOTE FUNCTIONAL INDEPENDENCE. PATIENT IS HOMEBOUND DUE TODEPENDENCE ON CAREGIVERS AND ASSISTED DEVICE IN ORDER TO SAFELY ANSWER AND EXIT THE HOME. THIS IS AH[place] FALLS RISK ACTIVITY THAT IS PHYSICALLY TAXING TO THE PATIENT</paragraph> Encounters Start Date/Time End Date/Time Encounter Type Admission Type Attending Clinicians Care Facility Care Department Encounter ID [id number] 00:00:00 2024-12-25 00:00:00 Unknown NEW ADMISSION DEREK HOWE [facility] [id number]
--- OUTSIDE RECORDS SUMMARY | 2024-12-24 20:00 | XMS_ITS | Clinical Summary ---
Author Organization [facility] [place] ([facility] Address [address] [place] [address] Phone Care Team Providers Care Dental Hygienist Name Role Phone MILLIE VELASCO APRN Unavailable Unavailable SHYAM OT, DEREK Unavailable Unavailable VALARIE PT, KAI Unavailable Unavailable Payers Payer Name Policy Type Policy Number Effective Date Expira tion Date ANTHEM BCBS FFS [id number] MODERATED OON PAYOR FFS [id number] Problems Condition Name Condition Details Condition Category [...] RESID DEFICITS Active 10-27 00:00: 00 OTHER SNF (CURRENT) DRUG THERAPY Active 10-27 00:00: 00 SNF (CURRENT) USE OF NON-STEROIDA L NON-INFLAM (NSAID) [...] 00:00:00 Unknown NEW ADMISSION DEREK [facility]E [facility] [id number]
== END 2024-11-21 08:09 | disposition home or self-care (01) ==
PROVIDERS: Emergency Provider Emergency Medicine; PCP Nurse Practitioner Family
DX: R06.02 Shortness of breath (principal); R53.81 Other malaise; R05.9 Cough, unspecified
CPT/HCPCS: 71046; 80053; 85025; 87636; 99284

== ENCOUNTER 2024-12-17 21:15 | Emergency (ER) | payer BC, OTHER, SELFPAY ==
--- OUTSIDE RECORDS SUMMARY | 2024-09-30 14:02 | XMS_ITS | Encounter Summary ---
Author Organization Healthcare Address [address] [place] [address] Care Team Providers Care Seat Cover Installer Name Role Phone Pcp, No Primary Care Provider Celsa Lopez RN Primary Care Provider Unava ilable Reason for Referral * Home Health (Routine) - Authorized Specialty Diagnoses / Procedures Referred By Reed t Referred To Contact Home Health Services / Case Management Diagnoses Acute encephalopathy Momo Akhtar MD [address] [place] [address] Phone: tel: fax: Referral ID Status Reason Start Date Expiration Date Visits Requested Visits Authorized [id number] Authorized Specialty Services Required 10/20/2024 04/21/2026 999 999 * Home Health (Routine) - Authorized Specialty Diagnoses / Procedures Referred By Reed bowen Referred To Contact Home Health Services / Case Management Diagnoses HE (hepatic encephalopathy) (CMS/HCC) Momo Akhtar MD [address] [place] [address] Phone: tel: fax: Referral ID Status Reason Start Date Expiration Date Visits Requested Visits Authorized [id number] Authorized Specialty Services Required 10/17/2024 04/18/2026 999 999 Reason for Visit * Reason Comments Altered Mental Status * Auth/Cert (Routine) Specialty Diagnoses / Procedures Referred By Reed bowen Referred To Contact Diagnoses Acute encephalopathy Rosetta Matthews MD [address] [place] [address] Phone: tel: fax: [facility] Emergency Department [address] [place] [address] Phone: tel: Referral ID Status Reason Start Date Expiration Date Visits Re quested Visits Authorized [id number] 1 1 Encounter Details Date Type Department Care Team (Latest Contact Info) Description 09/30/2024 2:02 PM EDT - 10/21/2024 2:13 PM EDT Hospital Encounter [facility] In[facility] [address] [place] [address] Edda Young, DO [address] [place] [address] Rosetta Matthews MD [address] [place] [address] Momo Akhtar MD [address] [place] [address] Evette Goodrich MD [address] [place] [address] Teetee Christianson MD [address] [place] [address] Acute encephalopathy (Primary Dx); HE (hepatic encephalopathy) (CMS/HCC); Thrombocytopenia (CMS/HCC); Dysarthria; Chest pain, unspecified type; Hepatic encephalopathy (CMS/HCC); Altered mental status, unspecified altered mental status type [place]charge Dis[place]: [place] [facility] History Tobacco Use Types Packs/Day Years [...] were you homeless or living in a fci (including now)? No 10/01/2024 Utilities Answer Date [...] Indicated 10/20/2024 7:00 PM EDT Kiana Chang RN * Question Answer Date of Assessment Author 1. Wish to be (Past 1 Month) No 025 7:00 PM EDT Kiana Chang RN 2. Non-Specific Active Suici marco Thoughts (Past 1 Month) No 10/20/2024 7:00 PM EDT Dudley Chang RN 6. Suicidal Behavior (Lifetime) No 7:00 PM EDT Kiana Chang RN documented as of this encounter Medications at Time of Discharge acetaminophen (Tylenol) 325 MG tablet Take 1 tablet by mouth every 6 hours as needed. Under [place] law, monthly prescriptions (30 days) can be [...] daily. cholecalciferol (True Vitamin D3) 1.25 MG (40661 UT) capsule Take 1 capsule by mouth [...] Miscellaneous Notes * Nursing Note - Jayant Albarado RN - 10/21/2024 2:13 PM EDT Patient discharged from hospital back to facility. Report was called yesterday to Anushka at [facility]. Patient was given discharge summary and AVS with instructions to give to facility. Patient andtransporter stopped by pharmacy on the way to discharge lounge to apple picker medications. Patient belongings sent with her including her rollator walker. No PIV to remove. * Progress Notes - Vincent Gonzalez - 10/21/2024 1:29 PM EDT Case Management Discharge Note Andrew Oconnor 54 y.o. female CSN: [id number] Admission: 09/30/2024 2:02 PM Primary Problem: HE (hepatic encephalopathy) (CMS/HCC) Primary Roller Mechanic: Primary Caregiver: Other (Comment) ([facility]) Assistance Available at Discharge: Current Outpatient/Agency/Support Group: adult day care, assisted living facility Availability of Care Givers (#Hours): 10-14 hours Family/Roller Mechanic(s) Willingness Assessed to care for patient at home: Yes Family/Roller Mechanic(s) Readiness Assessed to care for patient at home: Yes Housing Circumstances-Z Codes: Housing Circumstances (select all that apply): Low Income (101-300% Federal Poverty Guidlines) - Z596 Patient Referred to Financial or Community Resources: Financial Resources: Other (Comment) (Pt Guardian reported no Financial or Community Resources needs at this time,.) Discharge Facility/Level of Care Needs: Discharge Facility/Level of Care Needs: 2-[facility] [place]'s Choice of Community Agency(s): Patient's Choice of Community Agency(s): [facility] Patient/Family Anticipated Services at Transition: Patient/Family Anticipated Services at Transition: egg caser, community agency DME/Equipment Needed after Discharge: Equipment Currently Used at Home: none Equipment Needed After Discharge: concepción kim Readmission Within the Last 30 Days: Readmission Within the Last 30 Days: no previous admission in last 30 days Medicare Documentation: Medicare Second Notice?: Comment (ANTHEM/ANTHEM TRADITIONAL/[place] STATE/F[place] BCBS) Follow-up: DME-DURABLE MEDICAL EQUIPMENT [address], [address] [facility] [address] Follow up Provider for Rollator [place] - [facility]) [facility] [address] Follow up Provider for Home Health Discharge Transportation: Transportation Anticipated: medical transport Transportation Home at Discharge: Medical Transport Has discharge transport been arranged?: Yes What day is the transport expected?: 10/21/24 What time is the transport expected?: 1500 Follow Up Transport: Transportation Needed to Follow up Appoinments: Medical Transport Additional Comments: Patient is medically ready to transfer back to: [facility] ([facility]) Transportation scheduled with: [facility] [employer] on: 10/21/2024 at: 1500 RN report number: [phone] Fax DC summary to: [facility] recommend patient to bring copy of discharge summary and Medications with her on returning to the facility. SW arranged HH servies with [facility], SW followed up with State Guardian (Judi Owens) andJohn (Dynamics Ax Technical Architect) for [facility] both agreeable with discharge plan with the patient returning to [facility] at this time. No further services planned. TANIA Bassett, TELEGRAPH DISPATCHER Senior Reimbursement Analyst/Case Management [facility] * Discharge Summary - Teetee Christianson MD - 10/21/2024 12:27 PM EDT Hospitalization Admit Date/Time: 09/30/2024 2:02 PM Admitting Attending: Rosetta Matthews Discharge Date: 10/21/24 Discharge Attending Physician: Teetee Christianson MD PCP name and Address: Celsa Pereira RN [place] [address] Referring provider name and address: No referring provider defined for this encounter. Chief Concern, Brief History of Present Illness, and Hospital Course Andrew Oconnor is a 50 y/o F with Hx of BOWDEN Cirrhosis with history of HE, mild cognitive delay, childhood ALL, meningioma, migraines, hypothyroidism, HTN, peptic ulcer disease, Depression/Anxiety, FERNANDEZ who presents to ED from [facility] with altered mental status found to have [...] mouth every 6 hours as needed. Under [place] law, monthly prescriptions (30 days)can be refilled [...] mouth daily. True Vitamin D3 1.25 MG (79912 UT) capsule Generic drug: cholecalciferol Take 1 [...] at home usage, SW ordered Rollator via [facility]. Condition: Stable (s/sx potential problems absent or [...] BM daily. Continues to await placement to [facility] with home health, pending approval. No other [...] NSSUZETTE in past #HTN: continue Carvedilol 3.125mg BID; [...] saw and evaluated the patient with the medical/HOME BASED ASSISTANT/PA student. I discussed the case with the medical/HOME BASED ASSISTANT/PA student and agree with the findings and plan as documented. I personally performed the Examand Medical Decision Making. Working on transition of patient back to [facility]. Unable to accommodate ride for today. Plan fordischarge tomorrow. * Lexi Nascimento, PharmD - 10/20/2024 2:42 PM EDT Images from the original note were not included. [id number] Understanding Hepatic Encephalopathy (HE) Hepatic encephalopathy (HE) [...] treated early. How to say it [id number] What causes hepatic encephalopathy? Researchers don?t know [...] symptoms Last Reviewed Date: 2021 00:00:00 ?? [id number] [employer]. All rights reserved. This information is not [...] with Liver Failure 10/20/2024 1322 by Jayant Albarado, ARCADIO Outcome: [...] Jayant Albarado, ARCADIO Outcome: Ongoing, Progressing Goal: Hemodynamic Stability 10/20/2024 1322 by Jayant Albarado, ARCADIO Outcome: Ongoing, Progressing 10/20/2024 1100 by Jayant Albarado, ARCADIO Outcome: Ongoing, Progressing Goal: Absence of Infection Signs and Symptoms 10/20/2024 1322 by Jayant Albarado, ARCADIO Outcome: Ongoing, Progressing 10/20/2024 1100 by Jayant Albarado, ARCADIO Outcome: Ongoing, Progressing Goal: Optimize Neurologic Function 10/20/2024 1322 by Jayant Albarado, ARCADIO Outcome: Ongoing, Progressing 10/20/2024 1100 by Jayant Albarado, RN Outcome: Ongoing, Progressing Intervention: Monitor and Optimize Neurologic Status Flowsheets (Taken 10/20/2024 1100) Hepatic Encephalopathy Management: airway protection maintained Sensory Stimulation Regulation: quiet environment promoted Head of Bed (HOB) Positioning: HOB elevated Goal: Improved Oral Intake 10/20/2024 1322 by Jayant Albarado, ARCADIO Outcome: Ongoing, Progressing 10/20/2024 1100 by Jayant Albarado, ARCADIO Outcome: Ongoing, Progressing Goal: Optimal Pain Control, Comfort and Function 10/20/2024 1322 by Jayant Albarado, RN Outcome: Ongoing, Progressing 10/20/2024 1100 by Jaaynt Albarado, RN Outcome: Ongoing, Progressing Goal: Effective Oxygenation and Ventilation 10/20/2024 1322 by Jayant Albarado, ARCADIO Outcome: Ongoing, Progressing 10/20/2024 1100 by Jayant Albarado, RN Outcome: Ongoing, Progressing Problem: Self-Care Deficit Goal: Improved Ability to Complete Activities of Daily Living 10/20/2024 1322 by Jayant Albarado RN Outcome: Ongoing, Progressing 10/20/2024 1100 by Jayant Albarado RN Outcome: Ongoing, Progressing Intervention: Promote Activity and Functional Mcclain Flowsheets (Taken 10/20/2024 1322) Activity Assistance Provided: assistance, stand-by Self-Care Promotion: independence encouraged Problem: IADL (Instrumental Activities of Daily Living) Impairment Goal: Optimal Safe IADL Peformance 10/20/2024 1322 by Jayant Albarado RN Outcome: Ongoing, Progressing 10/20/2024 1100 by Jayant Albarado RN Outcome: Ongoing, Progressing Intervention: Optimize IADL (Instrumental Activity of Daily Living) Skills Flowsheets (Taken 10/20/2024 1322) Energy Conservation Techniques: correct body mechanics utilized IADL Promotion: safety strategies incorporated Problem: Adult Inpatient Plan of Care Goal: Plan of Care Review 10/20/2024 1322 by Jayant Albarado RN Outcome: Met 10/20/2024 1100 by Jayant [...] and Wellbeing 10/20/2024 1322 by Jayant Albarado, RN Outcome: Met 10/20/2024 1100 by Jayant Albarado, RN Outcome: Ongoing, Progressing Goal: Readiness for Transition of Care 10/20/2024 1322 by Jayant Albarado, ARCADIO Outcome: Met 10/20/2024 1100 by Jayant Albarado, RN Outcome: Ongoing, Progressing Problem: Pain Acute [...] Note Andrew Oconnor 54 y.o. female CSN: [id number] Admission: 09/30/2024 2:02 PM Primary Problem: HE (hepatic encephalopathy) (CMS/HCC) Anticipated Discharge Date: TBD (Possible Sunday10/20/2024) Plan of care reviewed with [...] at home usage, SW ordered Rollator via [employer]. ADDENDUM: [facility] Houser reported that patient can return with HH services. SW will arrange HH servicesand Transportation. SW attempted to update Judi via phone and left 2 voicemail for Judi. SW will continue to follow-up with pt's MD and care team on their progress and discharge plan. Vincent Gonzalez, MANAGER LOSS PREVENTION, TELEGRAPH DISPATCHER * Care Plan - Kiana Chang - [...] Needs: assisted living facility adult day care custodial Current Discharge Risk: homeless lack of support system/caregiver Concerns to be Addressed: discharge planning Readmission Within the Last 30 Days: no previous admission in last 30 days Patient/Family Anticipated Services at Transition: egg casermanager roofing agency Taken 10/01/2024 1403 by Vincent Gonzalez [...] active listening utilized self-care encouraged Diversional Activities: [employer] Family/Support System Care: self-care encouraged support provided [...] Bed (HOB) Positioning: HOB elevated Taken 10/17/2024 7820 by Jayant Albarado RN Seizure Precautions: clutter-free [...] Ongoing, Progressing Intervention: Promote Activity and Functional Mcclain Flowsheets (Taken 10/19/2024 1251) Activity Assistance Provided: [...] from the original note were not included. [facility] Medicine Progress Note Subjective Length of [...] BM daily. Continues to await placement to [facility] with home health. No other acute concerns. [...] saw and evaluated the patient with the medical/HOME BASED ASSISTANT/PA student. I discussed the case with the medical/HOME BASED ASSISTANT/PA student and agree with the findings and [...] Needs: assisted living facility adult day care custodial Current Discharge Risk: homeless lack of support system/caregiver Concerns to be Addressed: discharge planning Readmission Within the Last 30 Days: no previous admission in last 30 days Patient/Family Anticipated Services at Transition: egg casermanager roofing agency Taken 10/01/2024 1403 by Vincent Gonzalez [...] elevated Taken 10/17/2024 1735 by Jayant Albarado, RN Seizure Precautions: clutter-free environment maintained activity [...] Daily Living Intervention: Promote Activity and Functional Mcclain Flowsheets (Taken 10/19/2024 1251) Activity Assistance Provided: [...] footwear used Taken 10/18/2024 1700 by Josey Bar, RN Body Position: sitting up in bed [...] Identify and Manage Contributors Flowsheets (Taken 10/19/2024 0323) Medication Review/Management: medications reviewed Self-Care Promotion: independence [...] Intervention: Optimize Psychosocial Wellbeing Flowsheets (Taken 10/19/2024 0323) Supportive Measures: positive reinforcement provided decision-making supported active listening utilized Diversional Activities: television reading Intervention: Develop Pain Management Plan Flowsheets (Taken 10/18/20242039) Pain Management Interventions: medication (see MAR) position adjusted Intervention: Prevent or Manage Pain Flowsheets Taken 10/19/2024 0323 by Shakir Guidry RN Bowel Elimination Promotion: adequate fluid intake promoted Sleep/Rest Enhancement: awakenings minimized noise level reduced regular sleep/rest pattern promoted Medication Review/Management: medications reviewed Taken 10/17/2024 8035 by Jayant Albarado RN Sensory Stimulation Regulation: quiet environment promoted television on Problem: Liver Failure Goal: Optimal Coping with Liver Failure Outcome: Ongoing, Progressing Intervention: Support and Optimize Psychosocial Response Flowsheets (Taken 10/19/2024322) Supportive Measures: positive reinforcement provided decision-making supported [...] lightweight clothing Taken 10/17/2024 1940 by Jhon Perez RN Isolation Precautions: precautions maintained Goal: Optimize Neurologic [...] Activity Management: activity adjusted per tolerance Taken 10/18/20242039 by Shakir Guidry RN Cough And Deep [...] Ongoing, Progressing Intervention: Promote Activity and Functional Mcclain Flowsheets Taken 10/19/2024 032 by Shakir Guidry [...] pending placement subacute recs - plan [facility] - continue lactulose / rifaximin. Patient continues [...] cost prohibitive. - Plan to return to [facility] when ready. [facility] decompensated by portal hypertension and acute hepatic encephalopathy Encephalopathy now back to baseline. - Continue Lactulose 20g TID, titrating to 3-4 bowel movements daily - Continue Rifaximin 550mg BID - Continue Coreg - Continue Spironolactone Chronic # Cognitive delay - [place] # Meningioma - stable on [facility], followed by [facility] in past # HTN: [...] Note Andrew Oconnor 54 y.o. female CSN: [id number] Admission: 09/30/2024 2:02 PM Primary Problem: HE (hepatic encephalopathy) (CMS/HCC) Anticipated Discharge Date: TBD Has Discharge Plans Changed? No Medicare Second Notice: na Housing Circumstances: Extreme Poverty (100% or less than Federal Poverty Guidelines) Pt resides at [facility] Housing Circumstances Action Taken: Other none Medically Ready for Discharge: Anticipated in 2-4 Days Additional Comments Per MD, Pt not ready for discharge. Planned for Ultrasound to be completed prior to discharge. Casemanagement will continue to follow and assist with discharge plans. Kierra Ruggiero MANAGER LOSS PREVENTION, TELEGRAPH DISPATCHER Matrix Inspector * Care Plan - Josey Bar RN [...] Depression/Anxiety, FERNANDEZ who [facility] with altered mental status secondary to hepatic [...] Problems: Acute encephalopathy KYLIE (acute kidney injury) (CMS/[facility]) Hypoglycemia Andrew cOonnor is a 50 y/o F with Hx [...] saw and evaluated the patient with the medical/HOME BASED ASSISTANT/PA student. I discussed the case with the medical/HOME BASED ASSISTANT/PA student and agree with the findings and [...] of ALL (acute lymphoblastic leukemia of ) (CMS/HCC) and Stroke (CMS/HCC). Past Surgical History Patient has a past surgical history that includes Cholecystectomy (N/A); Appendectomy (N/A); and section, low transverse (N/A). Precautions Medical Precautions: Fall precautions Subjective Pt and RN agreeable to OT re-assessment. Pt is pleasant and cooperative throughout. I feel like I'm doing a lot better. Participants in Care Family/Caregiver Present: No Binding Machine Operator: Not Applicable Presentation Oxygen Therapy: None (Room air) Lines and Tubes: Intravenous access Pre-Session: Supine, Head of bed elevated, Bed alarm Pre-Session Comments: RN consented to treatment Post-Session: Sitting in chair, Chair alarm, Lines intact, RN notified, Call light in reach Post-Session Comments: Patient positioned for comfort and left with all needs within reach, LE's elevated Home Living/Set-Up Home Type: retirement ([facility] personal intermediate) Home Adaptive Equipment: Rolling walker (pt reports RW is non-functional and is interested in obtaining a rollator) Home Layout: One level Bathroom: Tub/Shower: (Pt is unable to accurately elaborate on bathroom set up, but reports she completes shower transfer independently) Prior Level of Function Receives Help From: Caregiver (staff at [facility]) Level of Mobility: Ambulatory- household only Mobility Mcclain: Independent gait without device History of Falls: [...] Mobility Bed Mobility Exam: Rolling/Turning Level of Mcclain: Independent Bed Mobility Exam: Scooting/Bridging Level of Mcclain: Independent (scooting hips forward to edge of bed) Physical/Nonphysical Assist: Supervision Assistive Device: Bed rails Bed Mobility Exam: Supine to Sit Level of Mcclain: Modified Mcclain Physical/Nonphysical Assist: HOB elevated Assistive Device: Bed rails Transfers Transfer Exam: Sit to stand Level of Mcclain: Stand-by assist Physical/Nonphysical Assist: Supervision Assistive Device: Walker, rolling Transfer Exam: Stand to Sit Level of Mcclain: Stand-by assist Physical/Nonphysical Assist: Supervision Assistive Device: Walker, rolling Toilet Transfer Level of Mcclain: Stand-by assist Physical/Nonphysical Assist: Supervision Type of [...] Bathing Interventions: Pt completed shower yesterday with production staff worker, set up/clean up assist only forall bathing [...] home and has necessary assistance at her custodial. Pt will continue to benefit from skilled [...] EDT . Case Management Adult Progress Note Andreweren Oconnor 54 y.o. female CSN: [id number] Admission: 09/30/2024 2:02 PM Primary Problem: HE (hepatic encephalopathy) (CMS/HCC) Anticipated Discharge Date: TBD SW attempted to discuss with [facility] Houser (Admission Coordinator) but have been unable to get ahold of their admission coordinator. SW attempted on 10/15/2024 and 10/17/2024, leaving a voicemail and number with front desk representative. SW attempted calling State Guardian (Judi) to discuss with Judi about next discharge steps. SW left a voicemail with State Guardian. ADDENDUM: [facility] informed SW needing PT/OT updated notes faxed to [phone]. SW willfax update notes to [facility] Houser. SW will continue to follow-up with pt's MD and care team on their progress and discharge plan. Vincent Gonzalez MSW, TELEGRAPH DISPATCHER * Care Plan - Jayant Albarado RN [...] Intervention: Provide Person-Centered Care Flowsheets (Taken 10/17/2024 024) Trust Relationship/Rapport: care explained choices provided emotional [...] Ongoing, Progressing Intervention: Promote Activity and Functional Mcclain Flowsheets Taken 10/17/2024 0241 by Ariadne Tang RN Adaptive Equipment Use: use encouraged Self-Care Promotion: independence encouraged Taken 10/15/20241999 by Kiana Carrington RN Activity Assistance Provided: assistance, stand-by Problem: Self-Care Deficit Goal: Improved Ability to Complete Activities of Daily Living Intervention: Promote Activity and Functional Mcclain Flowsheets Taken 10/17/2024 0241 by Ariadne Tang [...] precautions HOME LIVING/SET-UP Lives With Home Type retirement ([facility]) Home Equipment Rolling walker (pt reports RW is non-functional and is interested in obtaining a rollator) Home Layout One level Bathroom Layout (Pt is unable to accurately elaborate on bathroom set up, but reports she completesshower transfer independently) Additional Comments PRIOR LEVEL OF FUNCTION Receives help from Caregiver (staff at [facility]) Level of Mobility Ambulatory- household only Mobility Mcclain Independent gait without device History of Falls [...] Physical Therapy treatment session. Visitors Present No Binding Machine Operator (if applicable) Binding Machine Operator: Not Applicable OBJECTIVE PAIN Pt was without c/o pain at the beginning of this session but had increased reports of pain in her lower back on her right side and in her right ankle during ambulation and the RN was notfiied. Prior to ASSURANCE ASSISTANT's departure: * rest was provided * patient [...] by this therapist: BED MOBILITY Level of Mcclain Physical/Non- physical Assist Adaptive Equipment Utilized Rolling/ [...] safety with functional tasks. TRANSFERS Level of Mcclain Physical/Non- physical Assist Adaptive Equipment Utilized Sit to Stand Contact guard Verbal Cues, Maximal cues, Nonverbal cues (demo/gestures) Walker, rolling Stand to sit Contact guard Verbal Cues, Nonverbal cues (demo/gestures), Maximal cues Walker, rolling Bed to Chair Toilet Transfer Contact guard Ambulation, To toilet Set-up required, Verbal Cues, Moderate cues Walker, rolling Shower Transfer Interventions ASSURANCE ASSISTANT provided verbal cues for safe hand placement [...] for improved functional mobility. AMBULATION Level of Mcclain Distance Adaptive Equipment Utilized Ambulation Minimum assistance [...] distance compared to baseline level of function. ASSURANCE ASSISTANT presence was necessary for: * progressing patient ambulation distances * monitoring patient vital sign stability * decreasing patient's risk of falling while progressing pt's distances BALANCE Postural Appearance Posture: Forward head, Rounded shoulders Level of Mcclain Balance Support Activities Static Sit Contact guard [...] to promote increased activity tolerance and Endurance. ASSURANCE ASSISTANT providing verbal cues/demonstration for pursed-lip breathing technique to promote improved ventilation, decreased respiratory rate and energy conservation with activity. ASSURANCE ASSISTANT stressed to patient the importance of having [...] the state who presents to ED from [facility] ([place]) with altered mental status secondary to hepatic [...] Referrals sent to other facilities 10/15 # [facility] cirrhosis decompensated by portal hypertension and acute hepatic encephalopathy Encephalopathy now back to baseline. - Continue Lactulose 20g TID, titrating to 3-4 bowel movements daily - Continue Rifaximin 550mg BID - Continue Coreg - Continue Spironolactone Chronic # Cognitive delay - delgado of the state # Meningioma - stable on [facility], followed by [facility] in past # HTN: [...] Note Andrew Oconnor 54 y.o. female CSN: [id number] Admission: 09/30/2024 2:02 PM Primary Problem: HE (hepatic encephalopathy) (CMS/HCC) Anticipated Discharge Date: TBD Plan of care reviewed with pt's care team; and per MD, pt is medically ready for discharge pending placement. HONG followed up with Erika in admission at [facility]#[phone]. July informed HONG that she has discussed placement with State Guardian (Judi), and July reported that patient would have 10% Copayment due to facility not being in network with pt medicaid insurance. State Guardian reported that pt would be unable to afford that cost. HONG sent referral to [facility] genoveva Nunez and Judi reported that she forward Referral packet to [facility] [place]. HONG will continue to follow up with both facility. SW will continue to follow-up with pt's MD and care team on their progress and discharge plan. Vincent Gonzalze, MANAGER LOSS PREVENTION, TELEGRAPH DISPATCHER * Consults - Kierra Montejo RD - 10/15/2024 9:36 AM EDT Adult Nutrition Evaluation Note Andrew Oconnor 54 y.o. female CSN: [id number] Room/Bed 129/129A Nutrition evaluation type: follow-up Reason [...] Supplemental oxygen O2 Delivery Method: Nasal cannula Rhodelia Coma Scale Score: 14 Som Scale Score: [...] Weight Evaluation: Extreme Obesity (BMI > 40) Slaton Body Weight (kg): 45.4 Percent Slaton Body Weight: 233 Adjusted Body Weight (kg): [...] D3, Iron, Lactulose, Synthroid, Melatonin, Protonix,Pyridoxine, Aldactone Holiness needs: Nutrition Focused Physical Exam: Physical exam [...] this admission (ongoing) Acuity Level: 1 Kierra Monteoj, RD, LD [1] Past Surgical History: Procedure [...] HTN, PUD, Depression/Anxiety, FERNANDEZ, delgado of the [facility] who presents to ED from [facility] ([place]) with altered mental status secondary to hepatic [...] the state # Meningioma - stable on CT, followed by M[facility] in past # HTN: continue Carvedilol 3.125mg [...] precautions HOME LIVING/SET-UP Lives With Home Type retirement ([facility] intermediate) Home Equipment Rolling walker (pt reports RW is non-functional and is interested in obtaining a rollator) Home Layout One level Bathroom Layout (Pt is unable to accurately elaborate on bathroom set up, but reports she completesshower transfer independently) Additional Comments PRIOR LEVEL OF FUNCTION Receives help from Caregiver (staff at [facility]) Level of Mobility Ambulatory- household only Mobility Mcclain Independent gait without device History of Falls [...] own apartment [place] Visitors Present No Binding Machine Operator (if applicable) N/A OBJECTIVE PAIN Pain Score [...] obstacles is abarrier to independence. Level of Mcclain Adaptive Equipment Utilized Interventions Feeding Setup Chair [...] safe hand position. BED MOBILITY Level of Mcclain Physical/Non- physical Assist Adaptive Equipment Utilized Rolling/ [...] chair) Verbal Cues Interventions TRANSFERS Level of Mcclain Physical/Non- physical Assist Adaptive Equipment Utilized Sit to Stand Contact guard Verbal Cues, Maximal cues, Nonverbal cues (demo/gestures) Walker, rolling Stand to sit Contact guard Verbal Cues, Nonverbal cues (demo/gestures), Maximal cues Walker, rolling Interventions OT provided verbal cues for hand position throughout all position changes BALANCE Postural Appearance Posture: Forward head, Rounded shoulders Level of Mcclain Balance Support Interventions Static Sit Contact guard [...] increase balance support. FUNCTIONAL MOBILITY Level of Mcclain Distance Adaptive Equipment Utilized Ambulation Minimum assistance [...] Progressing * Progress Notes - Jay Mcdonald Paul - 10/14/2024 9:31 AM EDT Physical Therapy [...] Mobility Bed Mobility Exam: Scooting/Bridging Level of Mcclain: Contact guard Physical/Nonphysical Assist: Verbal Cues Bed Mobility Exam: Supine to Sit Level of Mcclain: Contact guard Physical/Nonphysical Assist: Verbal Cues Bed Mobility Exam: Sit to Supine Level of Mcclain: Contact guard Physical/Nonphysical Assist: Verbal Cues Transfers Transfer Exam: Sit to stand Level of Mcclain: Contact guard (x 2 reps) Physical/Nonphysical Assist: Verbal Cues Assistive Device: Walker, rolling Transfer Exam: Stand to Sit Level of Mcclain: Contact guard Physical/Nonphysical Assist: Verbal Cues Assistive Device: Walker, rolling Toilet Transfer Level of Mcclain: Contact guard Physical/Nonphysical Assist: Verbal Cues Type [...] techniques. Standardized Assessments Standardized Assessments Standardized Assessments: [facility] 6-Clicks Mobility Assessment [facility] 6-Clicks Mobility Assessment Difficulty patient has turning [...] 3-5 steps with a railing?: A lot [facility] 6-Clicks Mobility Assessment Total : 17 Assessment [...] HTN, PUD, Depression/Anxiety, FERNANDEZ, delgado of the [facility] who presents to ED from [facility] ([place] with altered mental status secondary to hepatic encephalopathy. Now better and working on a safe dispo. Today: - pending placement subacute recs - precert started 10/14 for critical access hospital and rehab. - continue lactulose / rifaximin. Patient continues to have appropriate mentation. 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 - Continue Lactulose 20g TID, titrating to 3-4 bowel movements daily - Continue Rifaximin 550mg BID - Continue Coreg - Continue Spironolactone Chronic #Meningioma - [facility], followed by [facility] in past #HTN: continue [...] Discharge:Ready Now * Care Plan - Marybel Madrigla RN - 10/13/2024 10:19 PM EDT Problem: [...] Depression/Anxiety, FERNANDEZ who [facility] with altered mental status secondary to hepatic [...] Problems: Acute encephalopathy KYLIE (acute kidney injury) ([facility]) Hypoglycemia Andrew Oconnor is a 50 y/o F with Hx of BOWDEN Cirrhosis with history of HE, mild cognitive delay, childhood ALL, meningioma, migraines, hypothyroidism, HTN, PUD, Depression/Anxiety, FERNANDEZ who [facility] ([place] with altered mental status secondary to hepaticencephalopathy. Today: - Subacute recs, pending placement - [facility] initiating precert - Continue current treatment Acute: [...] saw and evaluated the patient with the medical/HOME BASED ASSISTANT/PA student. I discussed the case with the medical/HOME BASED ASSISTANT/PA student and agree with the findings and [...] Andrew Jake Oconnor 54 y.o. female CSN: [id number] Admission: 09/30/2024 2:02 PM Primary Problem: HE (hepatic encephalopathy) (CMS/HCC) Anticipated Discharge Date: TBD Plan of care reviewed with pt's care team; and per MD, pt is medically ready for discharge pending placement. HONG followed up with Erika in admission at [facility] #[phone]. July informed HONG that she has attempted to get ahold of State Guardian (Judi) so she could initiate precert. HONG followed up with Judi via Phone at [phone], Judi reported that she had ensure that patient would be able to attend [facility] and would call HONG back. HONG provided Judi with Erika (Supervisor Of Way) with [facility] phone numbers. HONG will continue to follow-up with pt's MD and care team on their progress and discharge plan. Vincent Gonzalez, MANAGER LOSS PREVENTION, TELEGRAPH DISPATCHER * Care Plan - Juancho Fofana RN [...] Depression/Anxiety, FERNANDEZ who [facility] with altered mental status secondary to hepatic [...] Problems: Acute encephalopathy KYLIE (acute kidney injury) (CMS/[facility]) Hypoglycemia Andrew Oconnor is a 50 y/o F with Hx of BOWDEN Cirrhosis with history of HE, mild cognitive delay, childhood ALL, meningioma, migraines, hypothyroidism, HTN, PUD, Depression/Anxiety, FERNANDEZ who [facility] [place] [facility] ([place] with altered mental status secondary to hepaticencephalopathy. [...] saw and evaluated the patient with the medical/HOME BASED ASSISTANT/PA student. I discussed the case with the medical/HOME BASED ASSISTANT/PA student and agree with the findings and [...] Depression/Anxiety, FERNANDEZ who [facility] with altered mental status secondary to hepaticencephalopathy. [...] Outcome: Ongoing, Progressing * Progress Notes - Nallelykaylinlilo Jay J - 10/10/2024 1:37 PM EDT Physical Therapy [...] Mobility Bed Mobility Exam: Scooting/Bridging Level of Mcclain: Contact guard Physical/Nonphysical Assist: Verbal Cues Bed Mobility Exam: Supine to Sit Level of Mcclain: Contact guard Physical/Nonphysical Assist: Verbal Cues Transfers Transfer Exam: Sit to stand Level of Mcclain: Contact guard Physical/Nonphysical Assist: Verbal Cues Assistive Device: Walker, rolling Transfer Exam: Stand to Sit Level of Mcclain: Contact guard Physical/Nonphysical Assist: Verbal Cues Assistive Device: Walker, rolling Toilet Transfer Level of Mcclain: Contact guard Physical/Nonphysical Assist: Verbal Cues Type [...] activities. Standardized Assessments Standardized Assessments Standardized Assessments: [facility] 6-Clicks Mobility Assessment [facility] 6-Clicks Mobility Assessment Difficulty patient has turning [...] 3-5 steps with a railing?: A lot [facility] 6-Clicks Mobility Assessment Total : 17 Assessment [...] Depression/Anxiety, FERNANDEZ who [facility] with altered mental status secondary to hepatic [...] Depression/Anxiety, FERNANDEZ who [facility] [place] [facility] [place] with altered mental status secondary to [...] saw and evaluated the patient with the medical/HOME BASED ASSISTANT/PA student. I discussed the case with the medical/HOME BASED ASSISTANT/PA student and agree with the findings and [...] sponge bathing routine, seated, with assist from production staff worker, reiteration for use of adapted technique in [...] Note Andrew Oconnor 54 y.o. female CSN: [id number] Admission: 09/30/2024 2:02 PM Primary Problem: HE (hepatic encephalopathy) (CMS/HCC) Anticipated Discharge Date: TBD Per team and chart review pt is pending insurance precert for [facility]. ARCADIO GARCES contacted [facility]#[phone] to check on precert status, spoke with [...] from the original note were not included. [facility] Medicine Progress Note Subjective Length of stay: 9 days Brief Patient Summary: Andrew Oconnor is a 50 y/o F with Hx of BOWDEN Cirrhosis with history of HE, mild cognitive delay, childhood ALL, meningioma, migraines, hypothyroidism, HTN, PUD, Depression/Anxiety, FERNANDEZ who [facility] with altered mental status secondary to hepatic [...] Problems: Acute encephalopathy KYLIE (acute kidney injury) ([facility]) Hypoglycemia Andrew Oconnor is a 50 y/o F with Hx of BOWDEN Cirrhosis with history of HE, mild cognitive delay, childhood ALL, meningioma, migraines, hypothyroidism, HTN, PUD, Depression/Anxiety, FERNANDEZ who [facility] [place] [facility] ([place] with altered mental status secondary to hepaticencephalopathy. [...] saw and evaluated the patient with the medical/HOME BASED ASSISTANT/PA student. I discussed the case with the medical/HOME BASED ASSISTANT/PA student and agree with the findings and [...] 2:56 PM EDT [facility]. No beds available at either facility. Referrals expanded and sent to multiple facilities. CM will continue to follow. * Progress Notes - BobbiAnnetten - 10/08/2024 12:15 PM EDT Images from the original note were not included. Hospital Medicine Progress Note Subjective Length of stay: 8 days Brief Patient Summary: Andrew Oconnor is a 50 y/o F with Hx of BOWDEN Cirrhosis with history of HE, mild cognitive delay, childhood ALL, meningioma, migraines, hypothyroidism, HTN, PUD, Depression/Anxiety, FERNANDEZ who [facility] with altered mental status secondary to hepatic [...] Depression/Anxiety, FERNANDEZ who [facility] [place] [facility] [place] with altered mental status secondary to [...] saw and evaluated the patient with the medical/HOME BASED ASSISTANT/PA student. I discussed the case with the medical/HOME BASED ASSISTANT/PA student and agree with the findings and [...] Note Andrew Oconnor 54 y.o. female CSN: [id number] Room/Bed 129/129A Nutrition evaluation type: screen Reason [...] (Room air) O2 Delivery Method: Nasal cannula Rhodelia Coma Scale Score: 15 Som Scale Score: [...] Weight Evaluation: Extreme Obesity (BMI > 40) Slaton Body Weight (kg): 45.4 Percent [place] Body Weight: 233 Adjusted Body Weight (kg): [...] D3, Iron, Lactulose, Synthroid, Melatonin, Protonix,Pyridoxine, Aldactone Holiness needs: Nutrition Focused Physical Exam: Physical exam [...] AND sodium chloride * Care Plan - Marybel Ellis - 10/07/2024 11:37 PM EDT Problem: Adult [...] Mobility Bed Mobility Exam: Scooting/Bridging Level of Mcclain: Contact guard Physical/Nonphysical Assist: Verbal Cues Bed Mobility Exam: Supine to Sit Level of Mcclain: Contact guard Physical/Nonphysical Assist: Verbal Cues Transfers Transfer Exam: Sit to stand Level of Mcclain: Contact guard Physical/Nonphysical Assist: Verbal Cues Assistive Device: Walker, rolling Transfer Exam: Stand to Sit Level of Mcclain: Contact guard Physical/Nonphysical Assist: Verbal Cues Assistive Device: Walker, rolling Toilet Transfer Level of Mcclain: Contact guard Physical/Nonphysical Assist: Verbal Cues Type [...] sink. Standardized Assessments Standardized Assessments Standardized Assessments: [facility] 6-Clicks Mobility Assessment [facility] 6-Clicks Mobility Assessment Difficulty patient has turning [...] 3-5 steps with a railing?: A lot [facility] 6-Clicks Mobility Assessment Total : 17 Assessment [...] of stay: 7 days Brief Patient Summary: Anderw Oconnor is a 50 y/o F with Hx of BOWDEN Cirrhosis with history of HE, mild cognitive delay, childhood ALL, meningioma, migraines, hypothyroidism, HTN, PUD, Depression/Anxiety, FERNANDEZ who [facility] with altered mental status secondary to hepatic [...] Depression/Anxiety, FERNANDEZ who [facility] with altered mental status secondary to hepaticencephalopathy. [...] NSSUZETTE in past #HTN: continue Carvedilol 3.125mg BID; [...] saw and evaluated the patient with the medical/HOME BASED ASSISTANT/PA student. I discussed the case with the medical/HOME BASED ASSISTANT/PA student and agree with the findings and plan as documented. I personally performed the Examand Medical Decision Making. * Care Plan - RhondaMarybel - 10/07/2024 1:16 AM EDT Problem: Adult [...] Ongoing, Progressing * Progress Notes - Gucci Maritnes - 10/06/2024 1:15 PM EDT Images from the original note were not included. Hospital Medicine Progress Note Subjective Length of stay: 6 days Brief Patient Summary: Andrew Oconnor is a 50 y/o F with Hx of BOWDEN Cirrhosis with history of HE, mild cognitive delay, childhood ALL, meningioma, migraines, hypothyroidism, HTN, PUD, Depression/Anxiety, FERNANDEZ who presents to ED from [facility] with altered mental status secondary to hepatic [...] Depression/Anxiety, FERNANDEZ who presents to ED [place] [facility] [place] with altered mental status secondary to [...] (specify) Anticipated discharge needs: None Family Contact: LizandroJudi mccullough Follow-up: PCP Gastroenterology No future appointments. Electronically Signed by: Gucci Martines - 10/05/2024 - 12:06 PM Cosigned by Momo Akhtar MD at 10/06/2024 6:54 PM EDT Associated attestation - Momo Akhtar MD - 10/06/2024 6:54 PM EDT I saw and evaluated the patient with the medical/HOME BASED ASSISTANT/PA student. I discussed the case with the medical/HOME BASED ASSISTANT/PA student and agree with the findings and plan as documented. I personally performed the Examand Medical Decision Making. HE resolved and working on safe dispo. Will follow up with egg caser. * Progress Notes - Judi Colmenares - 10/06/2024 10:38 AM EDT Case Management Adult Progress Note Andrew Oconnor 54 y.o. female CSN: [id number] Admission: 09/30/2024 2:02 PM Primary Problem: HE (hepatic encephalopathy) (CMS/HCC) Anticipated Discharge Date: 10/09 Has Discharge Plans Changed? No Medicare Second Notice: Housing Circumstances: Not Applicable Housing Circumstances Action Taken: Other N/A Medically Ready for Discharge: Ready Now Additional Comments HONG spoke with MDs this date who indicate that the pt is medically stable for DC pending rehab placement. Pt's state guardian has expressed a preference for [facility] in [place] 2/2 proximity to home [place]. HONG called and spoke with title i coordinator Zahra this date, who states shehas [...] Note Andrew Oconnor 54 y.o. female CSN: [id number] Admission: 09/30/2024 2:02 PM Primary Problem: HE (hepatic encephalopathy) (CMS/HCC) Anticipated Discharge Date: TBD Pt was admitted to the hospital due to hepatic encephalopathy. Plan of care reviewed with pt's chelyteam; and per MD, pt is medically ready for discharge Pending Placement. State Guardian reported that [facility] would be the top choice due to being near to her personal intermediate, or any facility that was in [place]. Care Port shows [facility] is willing to accept, waiting for response from [facility]. SW will follow up with [facility]. Patient lives at [facility], their phone number is . Pt state guardian reported that pt will need uber/wheelchair van for transportation upon discharge, Pt meets 300%FPG. SW will continue to follow-up with pt's MD and care team on their progress and discharge plan. Vincent Gonzalez, MANAGER LOSS PREVENTION, TELEGRAPH DISPATCHER * Progress Notes - Gucci Martines - [...] Depression/Anxiety, FERNANDEZ who [facility] with altered mental status secondary to hepatic [...] Depression/Anxiety, FERNANDEZ who [facility] with altered mental status secondary to hepatic [...] saw and evaluated the patient with the medical/HOME BASED ASSISTANT/PA student. I discussed the case with the medical/HOME BASED ASSISTANT/PA student and agree with the findings and [...] Depression/Anxiety, FERNANDEZ who presents to ED from [facility] with altered mental status secondary to hepatic encephalopathy. Today: - reviewed PT/OT recs for subacute - reviewed director of social work note 10/03 documenting communication with guardian regarding [...] Progress Note Andrew Oconnor 54 y.o. female [facility]: [id number] Admission: 09/30/2024 2:02 PM Primary Problem: HE (hepatic encephalopathy) (CMS/HCC) Anticipated Discharge Date: TBD Pt informed SW at bedside that at her personal intermediate ([facility]) has Cockroaches and Mice within her room. SW followed up with pt Judi jean baptiste. State Yanes informed SW that she would follow up with the facility and do a investigate next week of the facility. State Yanes informed SW that DENISE and Reid reported would need to be made, SW followed up with his Dynamics Ax Technical Architect, and was provided the numbers for both and was informed that he was able to [facility]. SW informed State Yanes, that PT/OT is recommending Subacute Rehab. State Yanes was agreeablefor patient to attend Subacute Rehab. State Yanes reported that [facility] would be thetop choice due to being near to her personal intermediate, or any facility that was in [place]. HONG sent referrals for subacute rehab on 10/03/2024. HONG filled a report with DENISE and Reid via Phone. SW will continue to follow-up with pt's MD and care team on their progress and discharge plan. Vincent Gonzalez, MANAGER LOSS PREVENTION, TELEGRAPH DISPATCHER * Progress Notes - Gucci Martines - [...] Depression/Anxiety, FERNANDEZ who [facility] with altered mental status secondary to hepatic [...] & Plan Principal Problem: HE (hepatic encephalopathy) ([facility]/HCC) Active Problems: Acute encephalopathy KYLIE (acute kidney injury) ([facility]/HCC) Hypoglycemia Andrew Oconnor is a 50 y/o F with Hx of BOWDEN Cirrhosis with history of HE, mild cognitive delay, childhood ALL, meningioma, migraines, hypothyroidism, HTN, PUD, Depression/Anxiety, FERNANDEZ who [facility] with altered mental status secondary to hepatic [...] saw and evaluated the patient with the medical/HOME BASED ASSISTANT/PA student. I discussed the case with the medical/HOME BASED ASSISTANT/PA student and agree with the findings and [...] Acute encephalopathy 09/30/2024 KYLIE ([place]) [place] 09/30/2024 Hypoglycemia 09/30/2024 HE (hepatic encephalopathy) [place] 11/19/2020 Procedures Past Medical History Patient has a past medical history of ALL (acute lymphoblastic leukemia of infant) ([facility] and [place] Past Surgical History Patient has a past surgical history that includes Cholecystectomy (N/A); Appendectomy (N/A); and section, low transverse (N/A). Precautions Medical Precautions: Fall precautions Subjective Pt was agreeable to working with PT today. She reports overall feeling okay but she did c/o her R ankle throughout the session d/t having bone spurs. Participants in Care Family/Caregiver Present: No Binding Machine Operator: Not Applicable Presentation Oxygen Therapy: None (Room air) Lines and Tubes: Intravenous access Pre-Session: Supine, Head of bed elevated, Lines intact Pre-Session Comments: RN and CNT present in room upon PT/OT arrival, pt reporting urgent need to transfer to [facility] Post-Session: Sitting in chair, Chair alarm, Lines intact, RN notified, Call light in reach Post-Session Comments: All needs met, RN in room at conclusion Home Living/Set-up Home Type: retirement ([facility]) Home Adaptive Equipment: Rolling walker (pt reports RW is non-functional and is interested in obtaining a rollator) Home Layout: One level Bathroom: Tub/Shower: (Pt is unable to accurately elaborate on bathroom set up, but reports she completes shower transfer independently) Prior Level of Function Receives Help From: Caregiver (staff at [facility]) Level of Mobility: Ambulatory- household only Mobility Mcclain: Independent gait without device History of Falls: [...] Orientation Level Comments: Name of hospital as [facility] ; not oriented to date, requiredcues [...] Mobility Bed Mobility Exam: Scooting/Bridging Level of Mcclain: Moderate assist (50% patient's effort) (scooting hips forward to edge of bed) Physical/Nonphysical Assist: Verbal Cues, Nonverbal cues (demo/gestures), Additional assist utilized for safety Assistive Device: Bed rails Bed Mobility Exam: Supine to Sit Level of Mcclain: Moderate assist (50% patient's effort) Physical/Nonphysical Assist: HOB elevated, Verbal Cues, Nonverbal cues (demo/gestures), Additional assist utilized for safety Assistive Device: Bed rails Transfers Transfer Exam: Sit to stand Level of Mcclain: Moderate assist (50% patient's effort) (progressing to min A from recliner) Physical/Nonphysical Assist: Verbal Cues, Additional assist utilized for safety Assistive Device: Hand held assist Transfer Exam: Stand to Sit Level of Mcclain: Minimum assist (75% patient's effort) Physical/Nonphysical Assist: Verbal Cues, Additional assist utilized for safety Assistive Device: Hand held assist Transfer Exam: Bed to Chair/Chair to Bed Level of Mcclain: Minimum assist (75% patient's effort) Physical/Nonphysical Assist: Set-up required, Verbal Cues, Nonverbal cues (demo/gestures), Moderatecues, Additional assist utilized for safety Type of Transfer: Sidesteps Assistive Device: Hand held assist Toilet Transfer Level of Mcclain: Moderate assist (50% patient's effort) Physical/Nonphysical Assist: [...] bed to go to chair with bilateral MICROARRAY ANALYST. After a seated rest pt progressed to [...] R side, and downward gaze using bilateral MICROARRAY ANALYST initially during ambulation. Pt reporting that she [...] throughout. Standardized Assessments Standardized Assessments Standardized Assessments: [facility] 6-Clicks Mobility Assessment [facility] 6-Clicks Mobility Assessment Difficulty patient has turning [...] 3-5 steps with a railing?: A lot [facility] 6-Clicks Mobility Assessment Total : 17 No [...] skilled PT services while admitted and at [facility] to help address her deficits and [...] 09/30/2024 for work-up of HE (hepatic encephalopathy) ([facility]). Problem List Active Hospital Problems Diagnosis Date Noted Acute encephalopathy 09/30/2024 KYLIE (acute kidney injury) ([facility]) 09/30/2024 Hypoglycemia 09/30/2024 [place]atic [place] [place] Past Medical History Patient has a past medical history of ALL (acute lymphoblastic leukemia of infant) [place] [place] and [place] [place] Past Surgical History Patient has a past surgical history that includes Cholecystectomy (N/A); Appendectomy (N/A); and section, low transverse (N/A). Precautions Medical Precautions: Fall precautions Subjective Pt and RN agreeable to initial OT evaluation. Pt reported urgent need to use BSC upon OT arrival. Participants in Care Family/Caregiver Present: No Binding Machine Operator: Not Applicable Presentation Oxygen Therapy: None (Room [...] room at conclusion Home Living/Set-up Home Type: retirement ([facility] intermediate) Home Adaptive Equipment: Rolling walker (pt reports RW is non-functional and is interested in obtaining a rollator) Home Layout: One level Bathroom: Tub/Shower: (Pt is unable to accurately elaborate on bathroom set up, but reports she completes shower transfer independently) Prior Level of Function Receives Help From: Caregiver (staff at [facility]) Level of Mobility: Ambulatory- household only Mobility Mcclain: Independent gait without device History of Falls: [...] by rest with pillow support. Delirium Screening [place] Agitation Sedation Scale (RASS): Alert and calm Confusion Assessment Method-ICU (CAM-ICU/PCAM-ICU) Feature 3: Altered Level of Consciousness: Negative Cognition Overall Cognitive Status: Impaired Arousal/Alertness: Delayed responses to stimuli Mood/Behavior: Alert, Confused Orientation Level: Oriented to person, Oriented to place, Disoriented to time, Oriented to situation Orientation Level Comments: Name of hospital as [facility] ; not oriented to date, requiredcues [...] Mobility Bed Mobility Exam: Scooting/Bridging Level of Mcclain: Moderate assist (50% patient's effort) (scooting hips forward to edge of bed) Physical/Nonphysical Assist: Verbal Cues, Nonverbal cues (demo/gestures), Additional assist utilized for safety Assistive Device: Bed rails Bed Mobility Exam: Supine to Sit Level of Mcclain: Moderate assist (50% patient's effort) Physical/Nonphysical Assist: HOB elevated, Verbal Cues, Nonverbal cues (demo/gestures), Additional assist utilized for safety Assistive Device: Bed rails Transfers Transfer Exam: Sit to stand Level of Mcclain: Moderate assist (50% patient's effort) (progressing to min A from recliner) Physical/Nonphysical Assist: Verbal Cues, Additional assist utilized for safety Assistive Device: Hand held assist Transfer Exam: Stand to Sit Level of Mcclain: Minimum assist (75% patient's effort) Physical/Nonphysical Assist: Verbal Cues, Additional assist utilized for safety Assistive Device: Hand held assist Toilet Transfer Level of Mcclain: Moderate assist (50% patient's effort) Physical/Nonphysical Assist: Verbal Cues, Nonverbal cues (demo/gestures), Additional assist utilized for safety Type of Transfer: Sidesteps, To bedside commode Assistive Device: Hand held assist Functional Mobility Device: Hand held assist, Rolling walker Apparatus: Chair follow Assistance: Minimum assistance, Moderate verbal cues, Moderate tactile cues, Additional assist utilized for safety Distance : 12 ft around bed to recliner with MICROARRAY ANALYST + 25 ft in room with RW [...] 12:21 AM EDT 10/03/24 0021 10/03/24 0022 10/03/24 0024 Event/Notification Description Event Location [place] -- -- Department and Room Number 581 -- -- Is the patient a DNR? No -- -- Type of Event Decline -- -- Type of Decline Mental status changes -- -- Method of Notification Nurse (specify) (via Physician Referral Network (PRN) Chat) -- -- Vitals Temp -- -- 36.8 ??C (98.2 ??F) Heart Rate -- -- 78 SpO2 -- -- 96 % BP -- -- 134/74 MAP (mmHg) -- -- 94 Onset and Notification Specifics Hours in Decline Before PROCUREMENT FORESTER Notified <4 -- -- Time MD Notified 0021 (in Epic Chat) -- -- Time MD Arrived 0030 -- -- Time PROCUREMENT FORESTER RN Notified 0021 -- -- Time PROCUREMENT FORESTER RN Arrived 0024 -- -- Rapid RT [...] and Notification Specifics Hours in Decline Before PROCUREMENT FORESTER Notified -- -- -- Time MD Notified -- -- -- Time MD Arrived -- -- -- Time PROCUREMENT FORESTER RN Notified -- -- -- Time PROCUREMENT FORESTER RN Arrived -- -- -- Rapid RT [...] -- -- Notified via urgent message in Physician Referral Network (PRN) Chat of need for assistance - PROCUREMENT FORESTER requested with MD to bedside.PROCUREMENT FORESTER to bedside. Primary nursing staff present. Pt [...] and dry. MD Lutz present soon after PROCUREMENT FORESTER and POC was discussed. Labs obtained including [...] Review Outcome: Ongoing, Progressing Flowsheets (Taken 10/02/2024 7715) Plan of Care Reviewed With: patient Goal: [...] FERNANDEZ who presents to ED from personal intermediate with altered mental status found to have [...] Depression/Anxiety, FERNANDEZ who [facility] with altered mental status secondary to hepatic encephalopathy. Currently on lactulose 20 TID, rifaximin, coreg. Given 500 mL bolus LR. Subjective NAEON. Patient doing well this morning. Reporting 4x bowel movements yesterday. She mentions ongoing abdominal pain mostly epigastric and in the RUQ. She also says she does not like her current intermediate since it is dirty and unkempt. Reporting [...] Depression/Anxiety, FERNANDEZ who [facility] with altered mental status secondary to hepatic [...] saw and evaluated the patient with the medical/HOME BASED ASSISTANT/PA student. I discussed the case with the medical/HOME BASED ASSISTANT/PA student and agree with the findings and plan as documented. I personally performed the Examand Medical Decision Making. Overall improving but Ccntinued mild HE with intermittently delayed responses. Patient also reportspersistent fatigue. Will continue lactulose. * Progress Notes - Vincent Gonzalez - 10/02/2024 8:48 AM EDT Case Management Adult Progress Note Andrew Oconnor 54 y.o. female CSN: [id number] Admission: 09/30/2024 2:02 PM Primary Problem: HE (hepatic encephalopathy) (CMS/HCC) Anticipated Discharge Date: TBD Pt was admitted to the hospital due to hepatic encephalopathy. Plan of care reviewed with pt's careteam; and per MD, pt is not medically ready for discharge due to currently monitoring LFT's, and MDreported monitor closely for signs of worsening mentation, infection, and renal function. Patient lives at [facility], their phone number is . Pt state guardian reported that pt will need uber/wheelchair van for transportation upon discharge, Pt meets 300%FPG. SW will continue to follow-up with pt's MD and care team on their progress and discharge plan. Vincent Gonzalez, MANAGER LOSS PREVENTION, TELEGRAPH DISPATCHER * Care Plan - Caren Maravilla RN [...] disease,Depression/Anxiety, FERNANDEZ who presents to ED from [facility] with altered mentalstatus. Subjective Patient evaluated at [...] Depression/Anxiety, FERNANDEZ who [facility] with altered mental status secondary to hepatic [...] saw and evaluated the patient with the medical/HOME BASED ASSISTANT/PA student. I discussed the case with the medical/HOME BASED ASSISTANT/PA student and agree with the findings and [...] Note Andrew Oconnor 54 y.o. female CSN: [id number] Admission: 09/30/2024 2:02 PM Primary Problem: HE (hepatic encephalopathy) (CMS/HCC) Charge Auditor reviewed chart and spoke with patient State Guardian (Judi Owens) via phone to complete this Initial Case Management Assessment. PCP: Celsa Pereira, RN Emergency Contact: Extended Emergency Contact Information Primary Emergency Contact: Judi Owens Mobile Relation: Legal Guardian Insurance: Primary Visit Coverage Payer Plan Sponsor Code Group Number Group Name [employer]AL/[place]/FED [facility] [id number] Primary Visit Coverage Subscriber Subscriber ID Subscriber Name Subscriber SSN Subscriber Address [id number] JESUS OCONNOR [id number] [place] [address] Secondary Visit Coverage Payer Plan Sponsor Code Group Number Group Name [facility] MEDICAID [facility] MEDICAID Secondary Visit Coverage Subscriber Subscriber ID Subscriber Name Subscriber SSN Subscriber Address [id number] ANDREW OCONNOR [id number] [facility] Law [address] [place] [address] Patient information: Primary Caregiver: Other (Comment) (Personal Residential) Support System: Other (Comment), Community (Personal Residential: [facility]) Daily Living Activities: Functional Status: Independent Living Arrangements: Alf Type of Residence: retirement [facility] [address] [id number] Care Facility Name: [facility] Smoker in the Home?: No Current DME: Equipment Currently Used at Home: none Current DME Provider: Joaquín roberson HH, HD, Home infusion, 02 and DME at custodial. Income Information: Income Source: Disabled Income/Expense Information: Income meets expenses Current Resources Utilized: None Housing Circumstances-Z Codes: Housing Circumstances (select all that apply): Low Income (101-300% Federal Poverty Guidlines) - Z596 Patient Referred to: Financial Resources: Other (Comment) (Pt Guardian reported no Financial or Community Resources needs at this time,.) Anticipated Discharge Date: TBD Patient's Discharge Goal: To discharge back to [facility] Assistance Available at Discharge: Alf (Personal jail: [facility] Law), State Guardianship,and [facility] Discharge Transport: [facility] Follow Up Transport: [facility]/ [facility] Home Health / Home Infusion / Outpatient Dialysis Services: Current DME Provider: Guardian denies HH, HD, Home infusion, 02 and DME at custodial. Living Will/Advance Directive/Power of Spare Hand /Guardian: Unable to assess: No Have you [...] face sheet are accurate. Pt lives at [facility] [place] [address] at Personal Residential called [facility]. Pt state guardian reported [...] issue s at this time. Pt attends [facility] for [facility] ([facility]). [facility] Day number is . [facility] Phone number is . SW will continue to follow and assist as needed. Vincent Gonzalez MSW, TELEGRAPH DISPATCHER * Progress Notes - Vicnent Gonzalez - 10/01/2024 7:49 AM EDT Case Management Adult Progress Note Andrew Ocononr 54 y.o. female CSN: [id number] Admission: 09/30/2024 2:02 PM Primary Problem: HE [...] their progress and discharge plan. Vincent Gonzalez, TANIA, TELEGRAPH DISPATCHER * H&P - Leon Ramirez APRN, DNP [...] andMorbid Obesity who presents to ED from [facility] on 09/30/24 with acute change in mentation. Her LKN is unknown (patient had missed couple days), but manager of drilling states patient came in around 12pm on 09/30/24 and was noted to have worsening mentation, not following commands, having difficulties tracking staff, and having difficulties with ambulating. Patient resides at a personal intermediate in [place]. In ED, GCS 14 in triage. VS [...] andMorbid Obesity who presents to ED from [facility] on 09/30/24 with acute change in mentation. [...] Extended Emergency Contact Information Primary Emergency Contact: Jeannie Spain Mobile Relation: Legal Guardian Secondary Emergency Contact: Samantha,July Relation: Legal Guardian Preferred language: Faroese Binding Machine Operator needed? No Leon Ramirez 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) due to acute confusion and altered mental status. Staff at [facility] reports her baseline is Aox3 with [...] condition. She has a new guardian/power of employee operations examiner on file. Updated medication list includes: [id number], Hydroxyzine 25MG, Carvedilol 3.125MG, Lisinopril 10MG, Levothyroxine 100MG, Cymbalta 30MG. History provided by: Patient, medical records and residential History limited by: Acuity of condition and [...] bilaterally in both upper and lower extremities. City Dispatcher strength 5/5 bilaterally. Sensation of distal extremities [...] All Other Orders Ordered Status Ordering Provider 09/30/242017 CBC and Differential Morning draw Final result LEON RAMIREZ 09/30/24 2018 Comprehensive metabolic panel Morning draw Final result LEON RAMIREZ 09/30/24 2018 Magnesium, Plasma Morning draw Final result LEON RAMIREZ 09/30/24 2018 Phosphorus Morning draw Final result LEON RAMIREZ 09/30/24 2018 Vital Signs Every 4 hours Placed in And Linked Group Acknowledged LEON RAMIREZ 09/30/242017 Pulse Oximetry Every 4 hours Placed in And Linked Group Acknowledged LEON RAMIREZ 09/30/242017 Neuro checks Every 4 hours Acknowledged MINGUA, [...] Internal Medicine Provider: (Not yet assigned) Completed JNES MOHAN 09/30/24 1858 Urinalysis Microscopic Examination Once Final result JENS MOHAN 09/30/24 1716 POCT glucose meter PROCEDURE ONCE Final result EDDA YOUNG Kaylin 09/30/24 1609 Troponin T, High Sensitivity, 2 Hour, Plasma PROCEDURE ONCE Final result JENS MOHAN 09/30/24 1610 Prepare Leukocyte Reduced RBC Once Preliminary result JENS MOHAN 09/30/24 1609 Once Canceled JENS MOHAN 09/30/24 1516 POCT glucose meter PROCEDURE ONCE Final result POCT, GENERIC PROVIDER 09/30/24 1503 Ammonia STAT Final result JENS MOHAN Luis 09/30/24 1453 Notify Provider Until discontinued Acknowledged JENS MOHAN 09/30/24 1453 For POC BG 71 - [...] follow hypoglycemia prevention protocol. Acknowledged JENS MOHAN 09/30/24 1453 For POC BG 51 - [...] POC BG is> 100. Acknowledged JENS MOHAN 09/30/24 1453 For POC BG less than [...] if necessary until POC BG >100. Acknowledged JENS MOHAN 09/30/24 1448 XR Chest 1 View One time imaging Final result JENS MOHAN Luis 09/30/24 1432 Hepatitis C Antibody - ED Once Final result MARQUES JENS Smith 09/30/24 1432 ED Protocol - HIV 1/2 Antibody/Antigen Screen Once Final result MARQUES JENS Smith 09/30/24 1432 PT-INR STAT Final result JENS MOHAN Luis 09/30/24 1432 ED HIV 1/2 Antibody/Antigen Screen w/Reflex to HIV 1/2 Differentiation PROCEDURE ONCE Final result MARQUES JENS Smiht 09/30/24 1432 Lactic acid, venous STAT Final result JENS MOHAN Luis 09/30/[address] Abdomen Pelvis w IV Contrast Once Final result VLADIMIR MOHANSTEFANO Smith 09/30/24 1432 Type and screen Start now Final result VLADIMIR MOHANSTEFANO Smith 09/30/24 1432 Urinalysis with reflex microscopic AND reflex culture (IF UTI SUSPECTED) STAT Final result JENS MOHAN Luis 09/30/24 1432 Drug abuse screen STAT Final result MARQUESVLADIMIRJENS S 09/30/24 1432 Blood gas panel, venous STAT Final result MARQUESVLADIMIRJENS S 09/30/24 1432 Troponin now and 120 min STAT Final result VLADIMIR MOHANSTEFANO Smith 09/30/24 1432 Thyroid Stimulating Hormone, Plasma STAT Final result VLADIMIR MOHANSTEFANO Smith 09/30/24 1432 Free T4, Plasma STAT Final result MARQUES JENS Smith 09/30/24 1432 EKG now - STAT (adult) Once Final result JENS MOHAN 09/30/[address] Head wo IV Contrast Once Final result JENS MOHAN 09/30/24 1432 Urinalysis with reflex microscopic (Culture [...] Acute Floor (Med/Surg). ED Prescriptions None Nitesh Kaur MS4 I, Jens Mohan, personally verified the history, examined the patient, discussed with the student and resident and performed the medical decision making. I agree with the documentation and plan of care. 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 EMS state were called d/t altered mental status unknown last known well. Letha, client service manager at facility states pt has missed a couple of days at day center and then came today around 12pm and was noted to have worsening mentation, not able to follow commands well, not able to track staff, difficulty ambulating. Pt stays in personal intermediate in [place]. Uknown LKN, GCS 14 in triage. FSBS 65. documented in this encounter Plan of Treatment Pending Results Name Type Priority Associated Diagnoses Date /Time Prepare Leukocyte Reduced RBC Blood Bank STAT 09/30/2024 4:10 PM EDT Scheduled Referrals Name Type Priority Associated Diagnoses Orde r Schedule Discharge Ambulatory referral to [facility] Outpatient Referral Routine HE (hepatic encephalopathy) (CMS/HCC) 1 Occurrences starting 10/17/2024 until 04/20/2026 Discharge Ambulatory referral to [facility] Outpatient Referral Routine Acute encephalopathy 1 Occurrences [...] Antoine Hernandez MD on 10/18/2024 11:42 AM Momo Akhtar MD IM US PROCEDURES Final Result * (ABNORMAL) Comprehensive Metabolic Panel, Plasma (10/17/2024 4:53 AM EDT) Glucose, Plasma 79 74 - 99 mg/dL 10/17/2024 5:37 AM EDT [facility] BUN, Plasma 7 7 - 21 mg/dL 10/17/2024 5:37 AM EDT [facility] Creatinine, Plasma 0.96 0.60 - 1.10 mg/dL 10/17/2024 5:37 AM EDT [facility] BUN/Creatinine Ratio 7 10/17/2024 5:37 AM EDT [facility] Sodium, Plasma 138 136 - 145 mmol/L 10/17/2024 5:37 AM EDT [facility] Potassium, Plasma 4.1 3.6 - 4.9 mmol/L 10/17/2024 5:37 AM EDT [facility] Chloride, Plasma 106 97 - 107 mmol/L 10/17/2024 5:37 AM EDT [facility] CO2, Plasma 26 22 - 29 mmol/L 10/17/2024 5:37 AM EDT [facility] Anion Gap 6 6 - 16 mmol/L 10/17/2024 5:37 AM EDT [facility] Total Calcium, Plasma 9.4 8.9 - 10.2 mg/dL 10/17/2024 5:37 AM EDT [facility] Total Protein 6.0(L) 6.3 - 7.9 g/dL 10/17/2024 5:37 AM EDT [facility] Albumin, Plasma 3.0(L) 3.5 - 5.2 g/dL 10/17/2024 5:37 AM EDT [facility] AST, Plasma 56(H) 10 - 35 U/L 10/17/2024 5:37 AM EDT [facility] Comment:Hemolyzed, result ma y be falsely increased. ALT, Plasma 29 10 - 35 U/L 10/17/2024 5:37 AM EDT [facility] Alkaline Phosphatase, Plasma 73 35 - 104 U/L 10/17/2024 5:37 AM EDT [facility] Total Bilirubin, Plasma 0.7 0.2 - 1.1 mg/dL 10/17/2024 5:37 AM EDT [facility] eGFRcr 70.9 mL/min/1.7 3m*2 10/17/2024 5:37 AM EDT [facility] Comment:Reported eGFRcr in m L/min/1.73m2 is based the CKD-EPI 2020 equation that does not use a race coefficient. Blood Venous blood specimen / Unknown Venipuncture / Unknown 10/17/2024 4:53 AM EDT 10/17/2024 5:08 AM EDT us Momo Akhtar MD LAB BLOOD ORDERABLES Final Resu lt [facility] [address] [place] [address] * (ABNORMAL) CBC W/O Differential (10/17/2024 4:53 AM EDT) WBC Count 2.25(L) 3.70 - 10.30 10*3/uL LAB HEMATOLOGY METHOD 10/17/2024 5:15 AM EDT [facility] RBC Count 3.31(L) 3.90 - 5.20 10*6/uL LAB HEMATOLOGY METHOD 10/17/2024 5:15 AM EDT [facility] HGB 11.2 11.2 - 15.7 g/dL LAB HEMATOLOGY METHOD 10/17/2024 5:15 AM EDT [facility] HCT 33.4(L) 34.0 - 45.0 % LAB HEMATOLOGY METHOD 10/17/2024 5:15 AM EDT [facility] Platelet Count 77(L) 155 - 369 10*3/uL LAB HEMATOLOGY METHOD 10/17/2024 5:15 AM EDT [facility] MCV 101(H) 79 - 98 fL LAB HEMATOLOGY METHOD 10/17/2024 5:15 AM EDT [facility] MCH 33.8(H) 26.0 - 32.0 pg LAB HEMATOLOGY METHOD 10/17/2024 5:15 AM EDT [facility] MCHC 33.5 30.7 - 35.5 g/dL LAB HEMATOLOGY METHOD 10/17/2024 5:15 AM EDT [facility] RDW 14.0 11.5 - 14.5 % LAB HEMATOLOGY METHOD 10/17/2024 5:15 AM EDT [facility] MPV 8.8 8.8 - 12.5 fL LAB HEMATOLOGY METHOD 10/17/2024 5:15 AM EDT [facility] nRBC 0.0 <=0.0 per 100 WBCs LAB HEMATOLOGY METHOD 10/17/2024 5:15 AM EDT [facility] Blood Venous blood specimen / Unknown Venipuncture / Unknown 10/17/2024 4:53 AM EDT 10/17/2024 5:08 AM EDT us Momo Akhtar MD LAB BLOOD ORDERABLES Final Resu lt [facility] [address] [place] [address] * US Head Neck Soft Tissue (10/11/2024 [...] Belinda Winter MD on 10/11/2024 11:11 AM us Evette Goodrich MD [facility] US PROCEDURES Final Result * (ABNORMAL) Comprehensive metabolic panel (10/07/2024 4:46 AM EDT) Pathologist [facility] Glucose, Plasma 99 74 - 99 mg/dL 10/07/2024 5:56 AM EDT [facility] BUN, Plasma 5(L) 7 - 21 mg/dL 10/07/2024 5:56 AM EDT [facility] Creatinine, Plasma 0.95 0.60 - 1.10 mg/dL 10/07/2024 5:56 AM EDT [facility] BUN/Creatinine Ratio 5 10/07/2024 5:56 AM EDT [facility] Sodium, Plasma 141 136 - 145 mmol/L 10/07/2024 5:56 AM EDT [facility] Potassium, Plasma 3.6 3.6 - 4.9 mmol/L 10/07/2024 5:56 AM EDT [facility] Chloride, Plasma 108(H) 97 - 107 mmol/L 10/07/2024 5:56 AM EDT [facility] CO2, Plasma 25 22 - 29 mmol/L 10/07/2024 5:56 AM EDT [facility] Anion Gap 8 6 - 16 mmol/L 10/07/2024 5:56 AM EDT [facility] Total Calcium, Plasma 9.2 8.9 - 10.2 mg/dL 10/07/2024 5:56 AM EDT [facility] Total Protein 5.9(L) 6.3 - 7.9 g/dL 10/07/2024 5:56 AM EDT [facility] Albumin, Plasma 3.0(L) 3.5 - 5.2 g/dL 10/07/2024 5:56 AM EDT [facility] AST, Plasma 52(H) 10 - 35 U/L 10/07/2024 5:56 AM EDT [facility] Comment:Hemolyzed, result ma y be falsely increased. ALT, Plasma 27 10 - 35 U/L 10/07/2024 5:56 AM EDT [facility] Alkaline Phosphatase, Plasma 72 35 - 104 U/L 10/07/2024 5:56 AM EDT [facility] Total Bilirubin, Plasma 0.7 0.2 - 1.1 mg/dL 10/07/2024 5:56 AM EDT [facility] eGFRcr 71.8 mL/min/1.7 3m*2 10/07/2024 5:56 AM EDT [facility] Comment:Reported eGFRcr in m L/min/1.73m2 is based the CKD-EPI 2020 equation that does not use a race coefficient. Blood Venous blood specimen / Unknown Venipuncture / Unknown 10/07/2024 4:46 AM EDT 10/07/2024 5:26 AM EDT us Momo Akhtar MD LAB BLOOD ORDERABLES Final Resu lt [facility] [address] [place] [address] * (ABNORMAL) Comprehensive metabolic panel (10/05/2024 7:04 PM EDT) Glucose, Plasma 95 74 - 99 mg/dL 10/05/2024 7:37 PM EDT [facility] BUN, Plasma 5(L) 7 - 21 mg/dL 10/05/2024 7:37 PM EDT [facility] Creatinine, Plasma 0.94 0.60 - 1.10 mg/dL 10/05/2024 7:37 PM EDT [facility] BUN/Creatinine Ratio 5 10/05/2024 7:37 PM EDT [facility] Sodium, Plasma 140 136 - 145 mmol/L 10/05/2024 7:37 PM EDT [facility] Potassium, Plasma 3.9 3.6 - 4.9 mmol/L 10/05/2024 7:37 PM EDT [facility] Chloride, Plasma 107 97 - 107 mmol/L 10/05/2024 7:37 PM EDT [facility] CO2, Plasma 23 22 - 29 mmol/L 10/05/2024 7:37 PM EDT [facility] Anion Gap 10 6 - 16 mmol/L 10/05/2024 7:37 PM EDT [facility] Total Calcium, Plasma 9.3 8.9 - 10.2 mg/dL 10/05/2024 7:37 PM EDT [facility] Total Protein 6.5 6.3 - 7.9 g/dL 10/05/2024 7:37 PM EDT [facility] Albumin, Plasma 3.3(L) 3.5 - 5.2 g/dL 10/05/2024 7:37 PM EDT [facility] AST, Plasma 54(H) 10 - 35 U/L 10/05/2024 7:37 PM EDT [facility] Comment:Hemolyzed, result ma y be falsely increased. ALT, Plasma 27 10 - 35 U/L 10/05/2024 7:37 PM EDT [facility] Alkaline Phosphatase, Plasma 74 35 - 104 U/L 10/05/2024 7:37 PM EDT [facility] Total Bilirubin, Plasma 0.8 0.2 - 1.1 mg/dL 10/05/2024 7:37 PM EDT [facility] eGFRcr 72.7 mL/min/1.7 3m*2 10/05/2024 7:37 PM EDT [facility] Comment:Reported eGFRcr in m L/min/1.73m2 is based the CKD-EPI 2020 equation that does not use a race coefficient. Blood Venous blood specimen / Unknown Venipuncture / Unknown 10/05/2024 7:04 PM EDT 10/05/2024 7:09 PM EDT us Momo Akhtar MD LAB BLOOD ORDERABLES Final Resu lt [facility] [address] [place] [address] * POCT glucose meter (10/05/2024 3:05 AM [...] Comment 10/05/2024 3:13 AM EDT [facility] Emblem Maker ID Parul Bustamante 10/05/2024 3:13 AM EDT [facility] Device ID [id number] 10/05/2024 3:13 AM EDT [facility] Specimen Type POC Capillary 10/05/2024 3:13 AM EDT [facility] Blood Capillary blood specimen / Unknown 10/05/2024 3:05 AM EDT 10/05/2024 3:13 AM EDT us Momo Akhtar MD LAB POINT OF CARE TE ST DOCKED DEVICE UNSOLICITED RESULTS Final Result Performing Organization Address City/[facility] Co de Phone Number [facility] [address] [place] [address] * Phosphorus, Plasma (10/04/2024 5:20 AM EDT) [facility] Phosphorus, Plasma 3.2 2.5 - 4.5 mg/dL 10/04/2024 6:12 AM EDT [facility] Blood Venous blood specimen / Unknown Venipuncture / Unknown 10/04/2024 5:20 AM EDT 10/04/2024 5:29 AM EDT us Garcia Lutz MD LAB BLOOD ORDERABLES Final Resul t [facility] [address] [place] [address] * Magnesium, Plasma (10/04/2024 5:20 AM EDT) [facility] Magnesium, Plasma 2.1 1.9 - 2.4 mg/dL 10/04/2024 6:12 AM EDT [facility] Blood Venous blood specimen / Unknown Venipuncture / Unknown 10/04/2024 5:20 AM EDT 10/04/2024 5:29 AM EDT us Garcia Lutz MD LAB BLOOD ORDERABLES Final Resul t [facility] [address] [place] [address] * (ABNORMAL) CBC and Differential (10/04/2024 5:20 AM EDT) WBC Count 3.75 3.70 - 10.30 10*3/uL LAB HEMATOLOGY METHOD 10/04/2024 5:39 AM EDT [facility] RBC Count 3.52(L) 3.90 - 5.20 10*6/uL LAB HEMATOLOGY METHOD 10/04/2024 5:39 AM EDT [facility] HGB 11.8 11.2 - 15.7 g/dL LAB HEMATOLOGY METHOD 10/04/2024 5:39 AM EDT [facility] HCT 34.7 34.0 - 45.0 % LAB HEMATOLOGY METHOD 10/04/2024 5:39 AM EDT [facility] Platelet Count 82(L) 155 - 369 10*3/uL LAB HEMATOLOGY METHOD 10/04/2024 5:39 AM EDT [facility] MCV 99(H) 79 - 98 fL LAB HEMATOLOGY METHOD 10/04/2024 5:39 AM EDT [facility] MCH 33.5(H) 26.0 - 32.0 pg LAB HEMATOLOGY METHOD 10/04/2024 5:39 AM EDT [facility] MCHC 34.0 30.7 - 35.5 g/dL LAB HEMATOLOGY METHOD 10/04/2024 5:39 AM EDT [facility] RDW 14.1 11.5 - 14.5 % LAB HEMATOLOGY METHOD 10/04/2024 5:39 AM EDT [facility] MPV 8.5(L) 8.8 - 12.5 fL LAB HEMATOLOGY METHOD 10/04/2024 5:39 AM EDT [facility] nRBC 0.0 <=0.0 per 100 WBCs LAB HEMATOLOGY METHOD 10/04/2024 5:39 AM EDT [facility] Differential Type Automated LAB HEMATOLOGY METHOD 10/04/2024 5:39 AM EDT [facility] Neutrophils % 55 % LAB HEMATOLOGY METHOD 10/04/2024 5:39 AM EDT [facility] Lymphocytes % 25 % LAB HEMATOLOGY METHOD 10/04/2024 5:39 AM EDT [facility] Monocytes % 12 % LAB HEMATOLOGY METHOD 10/04/2024 5:39 AM EDT [facility] Eosinophils % 7 % LAB HEMATOLOGY METHOD 10/04/2024 5:39 AM EDT [facility] Basophils % 0 % LAB HEMATOLOGY METHOD 10/04/2024 5:39 AM EDT [facility] Immature Granulocytes % 1 % LAB HEMATOLOGY METHOD 10/04/2024 5:39 AM EDT [facility] Neutrophils Absolute 2.06 1.60 - 6.10 10*3/uL LAB HEMATOLOGY METHOD 10/04/2024 5:39 AM EDT [facility] Lymphocytes Absolute 0.95(L) 1.20 - 3.90 10*3/uL LAB HEMATOLOGY METHOD 10/04/2024 5:39 AM EDT [facility] Monocytes Absolute 0.44 0.30 - 0.90 10*3/uL LAB HEMATOLOGY METHOD 10/04/2024 5:39 AM EDT [facility] Eosinophils Absolute 0.26 0.00 - 0.50 10*3/uL LAB HEMATOLOGY METHOD 10/04/2024 5:39 AM EDT [facility] Basophils Absolute 0.01 0.00 - 0.10 10*3/uL LAB HEMATOLOGY METHOD 10/04/2024 5:39 AM EDT [facility] Immature Granulocytes Absolute 0.03 0.00 - 0.06 10*3/uL LAB HEMATOLOGY METHOD 10/04/2024 5:39 AM EDT [facility] Blood Venous blood specimen / Unknown Venipuncture / Unknown 10/04/2024 5:20 AM EDT 10/04/2024 5:29 AM EDT [facility] - 10/04/2024 5:39 AM EDT Therapeutic decision making should be based on absolute values, rather than percentages. us Garcia Lutz MD LAB BLOOD ORDERABLES Final Resul t [facility] [address] [place] [address] * (ABNORMAL) Comprehensive metabolic panel (10/04/2024 5:20 AM EDT) Glucose, Plasma 88 74 - 99 mg/dL 10/04/2024 6:12 AM EDT [facility] BUN, Plasma 6(L) 7 - 21 mg/dL 10/04/2024 6:12 AM EDT [facility] Creatinine, Plasma 0.97 0.60 - 1.10 mg/dL 10/04/2024 6:12 AM EDT [facility] BUN/Creatinine Ratio 6 10/04/2024 6:12 AM EDT [facility] Sodium, Plasma 139 136 - 145 mmol/L 10/04/2024 6:12 AM EDT [facility] Potassium, Plasma 4.2 3.6 - 4.9 mmol/L 10/04/2024 6:12 AM EDT [facility] Chloride, Plasma 107 97 - 107 mmol/L 10/04/2024 6:12 AM EDT [facility] CO2, Plasma 24 22 - 29 mmol/L 10/04/2024 6:12 AM EDT [facility] Anion Gap 8 6 - 16 mmol/L 10/04/2024 6:12 AM EDT [facility] Total Calcium, Plasma 9.1 8.9 - 10.2 mg/dL 10/04/2024 6:12 AM EDT [facility] Total Protein 6.1(L) 6.3 - 7.9 g/dL 10/04/2024 6:12 AM EDT [facility] Albumin, Plasma 3.1(L) 3.5 - 5.2 g/dL 10/04/2024 6:12 AM EDT [facility] AST, Plasma 51(H) 10 - 35 U/L 10/04/2024 6:12 AM EDT [facility] Comment:Hemolyzed, result ma y be falsely increased. ALT, Plasma 24 10 - 35 U/L 10/04/2024 6:12 AM EDT [facility] Alkaline Phosphatase, Plasma 70 35 - 104 U/L 10/04/2024 6:12 AM EDT [facility] Total Bilirubin, Plasma 0.9 0.2 - 1.1 mg/dL 10/04/2024 6:12 AM EDT [facility] eGFRcr 70.0 mL/min/1.7 3m*2 10/04/2024 6:12 AM EDT [facility] Comment:Reported eGFRcr in m L/min/1.73m2 is based the CKD-EPI 2020 equation that does not use a race coefficient. Blood Venous blood specimen / Unknown Venipuncture / Unknown 10/04/2024 5:20 AM EDT 10/04/2024 5:29 AM EDT us Momo Akhtar MD LAB BLOOD ORDERABLES Final Resu lt [facility] [address] [place] [address] * (ABNORMAL) Blood gas panel, venous (10/04/2024 5:20 AM EDT) pH, Venous 7.40 7.32 - 7.43 LAB HEMATOLOGY METHOD 10/04/2024 5:31 AM EDT [facility] pCO2, Venous 45 37 - 52 mmHg LAB HEMATOLOGY METHOD 10/04/2024 5:31 AM EDT [facility] pO2, Venous 82(H) 25 - 40 mmHg LAB HEMATOLOGY METHOD 10/04/2024 5:31 AM EDT [facility] SO2, Measured, Venous 98(H) 65 - 80 % LAB HEMATOLOGY METHOD 10/04/2024 5:31 AM EDT [facility] Base Excess, Venous 2.6 -2.0 - 3.0 mmol/L LAB HEMATOLOGY METHOD 10/04/2024 5:31 AM EDT [facility] Bicarbonate, Calculated, Venous 28(H) 22 - 26 mmol/L LAB HEMATOLOGY METHOD 10/04/2024 5:31 AM EDT [facility] Hematocrit, Whole Blood 36.4 34.0 - 45.0 % LAB HEMATOLOGY METHOD 10/04/2024 5:31 AM EDT [facility] Sodium, Whole Blood 141 136 - 145 mmol/L LAB HEMATOLOGY METHOD 10/04/2024 5:31 AM EDT [facility] Potassium, Whole Blood 4.0 3.6 - 4.9 mmol/L LAB HEMATOLOGY METHOD 10/04/2024 5:31 AM EDT [facility] Chloride, Whole Blood 107 97 - 107 mmol/L LAB HEMATOLOGY METHOD 10/04/2024 5:31 AM EDT [facility] Glucose, Whole Blood 83 74 - 99 mg/dL LAB HEMATOLOGY METHOD 10/04/2024 5:31 AM EDT [facility] Lactate, Venous, Whole Blood 0.9 0.5 - 2.2 mmol/L LAB HEMATOLOGY METHOD 10/04/2024 5:31 AM EDT [facility] Ionized Calcium, Whole Blood 4.8 4.6 - 5.1 mg/dL LAB HEMATOLOGY METHOD 10/04/2024 5:31 AM EDT [facility] Blood Venous blood specimen / Unknown Venipuncture / Unknown 10/04/2024 5:20 AM EDT 10/04/2024 5:29 AM EDT us Garcia Lutz MD LAB BLOOD ORDERABLES Final Resul t [facility] [address] [place] [address] * CT Angio Neck (10/03/2024 1:15 AM [...] Total DLP (Dose-Length Product): 1530.27 mGy.cm (accession [id number]), 1530.27 mGy.cm (accession [id number]), 1530.27 mGy.cm (accession [id number]). Please note: The reported value represents the [...] no aneurysm of either internal carotid artery. [place] and Major Peripheral Branches: There [...] Total DLP (Dose-Length Product): 1530.27 mGy.cm (accession [id number]),1530.27 mGy.cm (accession [id number]), 1530.27 mGy.cm (accession [id number]).Please note: The reported value represents the total [...] no aneurysm of either internal carotid artery. [place] and Major Peripheral Branches: There [...] on 10/03/2024 2:09 AM Garcia Lutz MD IM CT PROCEDURES Final Result * CT Angio Head (10/03/2024 1:15 AM EDT) Anatomical Region Laterality Modality [place] Computed Tomogr aphy Impressions 10/03/2024 [...] Total DLP (Dose-Length Product): 1530.27 mGy.cm (accession [id number]), 1530.27 mGy.cm (accession [id number]), 1530.27 mGy.cm (accession [id number]). Please note: The reported value represents the [...] no aneurysm of either internal carotid artery. [place] and Major Peripheral Branches: There [...] Total DLP (Dose-Length Product): 1530.27 mGy.cm (accession [id number]),1530.27 mGy.cm (accession [id number]), 1530.27 mGy.cm (accession [id number]).Please note: The reported value represents the total [...] no aneurysm of either internal carotid artery. [place] and Major Peripheral Branches: There [...] Total DLP (Dose-Length Product): 1530.27 mGy.cm (accession [id number]), 1530.27 mGy.cm (accession [id number]), 1530.27 mGy.cm (accession [id number]). Please note: The reported value represents the [...] no aneurysm of either internal carotid artery. [place] and Major Peripheral Branches: There [...] Total DLP (Dose-Length Product): 1530.27 mGy.cm (accession [id number]),1530.27 mGy.cm (accession [id number]), 1530.27 mGy.cm (accession [id number]).Please note: The reported value represents the total [...] no aneurysm of either internal carotid artery. [place] and Major Peripheral Branches: There [...] ECG Atrial Rate 76 BPM MUSE ECG [place] Interval 168 ms MUSE ECG QRSD Interval 100 ms MUSE ECG QT Interval 412 ms MUSE ECG QTC Interval 463 ms MUSE ECG P [place] 46 degrees MUSE ECG R [place] 9 degrees MUSE ECG T Wave [place] 29 degrees MUSE ECG Diagnosis Normal sinus [...] - 80 % 10/03/2024 12:49 AM EDT [facility] POCT Lactate Venous 0.7 0.5 - 2.2 mmol/L 10/03/2024 12:49 AM EDT [facility] Emblem Maker ID Khang Puri 10/03/2024 12:49 AM EDT [facility] LAB Device ID [id number] 10/03/2024 12:49 AM EDT [facility] Blood, Venous Venous blood specimen / Unknown 10/03/2024 12:44 AM EDT 10/03/2024 12:49 AM EDT us Momo Akhtar MD LAB POINT OF CARE TE ST DOCKED DEVICE UNSOLICITED RESULTS Final Result Performing Organization Address City/[facility]/ZIP Co de Phone Number [facility] [address] [place] [address] * Light Blue Top (10/03/2024 12:42 AM EDT) Extra Hold for add-ons 10/03/2024 3:02 AM EDT [facility] Comment:Auto resulted. Blood Venous blood specimen / Unknown 10/03/2024 12:42 AM EDT 10/03/2024 12:46 AM EDT us Momo Akhtar MD LAB BLOOD ORDERABLES Final Resu lt Performing Organization Address [facility] Co de Phone Number [facility] [address] [place] [address] * Phosphorus, Plasma (10/03/2024 12:42 AM EDT) Phosphorus, Plasma 2.8 2.5 - 4.5 mg/dL 10/03/2024 1:15 AM EDT [facility] Blood Venous blood specimen / Unknown Venipuncture / Unknown 10/03/2024 12:42 AM EDT 10/03/2024 12:45 AM EDT us Garcia Lutz MD LAB BLOOD ORDERABLES Final Resul t Performing Organization Address City/[facility]/ZIP Co de Phone Number [facility] [address] [place] [address] * Magnesium, Plasma (10/03/2024 12:42 AM EDT) Magnesium, Plasma 2.0 1.9 - 2.4 mg/dL 10/03/2024 1:15 AM EDT [facility] Blood Venous blood specimen / Unknown Venipuncture / Unknown 10/03/2024 12:42 AM EDT 10/03/2024 12:45 AM EDT us Garcia Lutz MD LAB BLOOD ORDERABLES Final Resul t [facility] [address] [place] [address] * (ABNORMAL) CBC and Differential (10/03/2024 12:42 AM EDT) WBC Count 3.59(L) 3.70 - 10.30 10*3/uL LAB HEMATOLOGY METHOD 10/03/2024 1:32 AM EDT [facility] RBC Count 3.54(L) 3.90 - 5.20 10*6/uL LAB HEMATOLOGY METHOD 10/03/2024 1:32 AM EDT [facility] HGB 12.1 11.2 - 15.7 g/dL LAB HEMATOLOGY METHOD 10/03/2024 1:32 AM EDT [facility] HCT 34.7 34.0 - 45.0 % LAB HEMATOLOGY METHOD 10/03/2024 1:32 AM EDT [facility] Platelet Count 91(L) 155 - 369 10*3/uL LAB HEMATOLOGY METHOD 10/03/2024 1:32 AM EDT [facility] MCV 98 79 - 98 fL LAB HEMATOLOGY METHOD 10/03/2024 1:32 AM EDT [facility] MCH 34.2(H) 26.0 - 32.0 pg LAB HEMATOLOGY METHOD 10/03/2024 1:32 AM EDT [facility] MCHC 34.9 30.7 - 35.5 g/dL LAB HEMATOLOGY METHOD 10/03/2024 1:32 AM EDT [facility] RDW 13.9 11.5 - 14.5 % LAB HEMATOLOGY METHOD 10/03/2024 1:32 AM EDT [facility] MPV 9.0 8.8 - 12.5 fL LAB HEMATOLOGY METHOD 10/03/2024 1:32 AM EDT [facility] nRBC 0.0 <=0.0 per 100 WBCs LAB HEMATOLOGY METHOD 10/03/2024 1:32 AM EDT [facility] Differential Type Automated LAB HEMATOLOGY METHOD 10/03/2024 1:32 AM EDT [facility] Neutrophils % 49 % LAB HEMATOLOGY METHOD 10/03/2024 1:32 AM EDT [facility] Lymphocytes % 31 % LAB HEMATOLOGY METHOD 10/03/2024 1:32 AM EDT [facility] Monocytes % 13 % LAB HEMATOLOGY METHOD 10/03/2024 1:32 AM EDT [facility] Eosinophils % 6 % LAB HEMATOLOGY METHOD 10/03/2024 1:32 AM EDT [facility] Basophils % 1 % LAB HEMATOLOGY METHOD 10/03/2024 1:32 AM EDT [facility] Immature Granulocytes % 0 % LAB HEMATOLOGY METHOD 10/03/2024 1:32 AM EDT [facility] Neutrophils Absolute 1.76 1.60 - 6.10 10*3/uL LAB HEMATOLOGY METHOD 10/03/2024 1:32 AM EDT [facility] Lymphocytes Absolute 1.12(L) 1.20 - 3.90 10*3/uL LAB HEMATOLOGY METHOD 10/03/2024 1:32 AM EDT [facility] Monocytes Absolute 0.46 0.30 - 0.90 10*3/uL LAB HEMATOLOGY METHOD 10/03/2024 1:32 AM EDT [facility] Eosinophils Absolute 0.22 0.00 - 0.50 10*3/uL LAB HEMATOLOGY METHOD 10/03/2024 1:32 AM EDT [facility] Basophils Absolute 0.02 0.00 - 0.10 10*3/uL LAB HEMATOLOGY METHOD 10/03/2024 1:32 AM EDT [facility] Immature Granulocytes Absolute 0.01 0.00 - 0.06 10*3/uL LAB HEMATOLOGY METHOD 10/03/2024 1:32 AM EDT [facility] Blood Venous blood specimen / Unknown Venipuncture / Unknown 10/03/2024 12:42 AM EDT 10/03/2024 12:45 AM EDT Narrative [facility] - 10/03/2024 1:32 AM EDT Therapeutic decision making should be based on absolute values, rather than percentages. us Garcia Lutz MD LAB BLOOD ORDERABLES Final Resul t [facility] [address] [place] [address] * (ABNORMAL) Comprehensive metabolic panel (10/03/2024 12:42 AM EDT) Glucose, Plasma 96 74 - 99 mg/dL 10/03/2024 1:15 AM EDT [facility] BUN, Plasma 7 7 - 21 mg/dL 10/03/2024 1:15 AM EDT [facility] Creatinine, Plasma 1.13(H) 0.60 - 1.10 mg/dL 10/03/2024 1:15 AM EDT [facility] BUN/Creatinine Ratio 6 10/03/2024 1:15 AM EDT [facility] Sodium, Plasma 139 136 - 145 mmol/L 10/03/2024 1:15 AM EDT [facility] Potassium, Plasma 4.1 3.6 - 4.9 mmol/L 10/03/2024 1:15 AM EDT [facility] Chloride, Plasma 108(H) 97 - 107 mmol/L 10/03/2024 1:15 AM EDT [facility] CO2, Plasma 24 22 - 29 mmol/L 10/03/2024 1:15 AM EDT [facility] Anion Gap 7 6 - 16 mmol/L 10/03/2024 1:15 AM EDT [facility] Total Calcium, Plasma 9.3 8.9 - 10.2 mg/dL 10/03/2024 1:15 AM EDT [facility] Total Protein 6.4 6.3 - 7.9 g/dL 10/03/2024 1:15 AM EDT [facility] Albumin, Plasma 3.4(L) 3.5 - 5.2 g/dL 10/03/2024 1:15 AM EDT [facility] AST, Plasma 50(H) 10 - 35 U/L 10/03/2024 1:15 AM EDT [facility] Comment:Hemolyzed, result ma y be falsely increased. ALT, Plasma 27 10 - 35 U/L 10/03/2024 1:15 AM EDT [facility] Alkaline Phosphatase, Plasma 73 35 - 104 U/L 10/03/2024 1:15 AM EDT [facility] Total Bilirubin, Plasma 1.1 0.2 - 1.1 mg/dL 10/03/2024 1:15 AM EDT [facility] eGFRcr 58.3 mL/min/1.7 3m*2 10/03/2024 1:15 AM EDT [facility] Comment:Reported eGFRcr in m L/min/1.73m2 is based the CKD-EPI 2020 equation that does not use a race coefficient. Blood Venous blood specimen / Unknown Venipuncture / Unknown 10/03/2024 12:42 AM EDT 10/03/2024 12:45 AM EDT Momo Akhtar MD LAB BLOOD ORDERABLES Final Resu lt [facility] [address] [place] [address] * (ABNORMAL) POCT glucose meter (10/03/2024 12:24 [...] Comment 10/03/2024 12:25 AM EDT [facility] Emblem Maker ID Caren Maravilla [email or web address] 12:25 AM EDT [facility] Device ID [id number] 10/03/2024 12:25 AM EDT [facility] Specimen Type POC Capillary 10/03/2024 12:25 AM EDT [facility]ALTH[facility] LAB Blood Capillary blood specimen / Unknown 10/03/2024 12:24 AM EDT 10/03/2024 12:25 AM EDT Momo Akhtar MD LAB POINT OF CARE TE ST DOCKED DEVICE UNSOLICITED RESULTS Final Result Performing Organization Address [facility] Co de Phone Number HEALTHCARE LAB [address] [place] [address] * (ABNORMAL) POCT glucose meter (10/02/2024 11:56 PM EDT) Pathologist [facility] POCT Glucose 103(H) 74 - 99 mg/dL [...] Comment 10/02/2024 11:58 PM EDT HEALTHCARE LAB Emblem Maker ID Maisha Wright 10/02/2024 11:58 PM EDT HEALTHCARE LAB Device ID [id number] 10/02/2024 11:58 PM EDT [facility] Specimen Type POC Capillary 10/02/2024 11:58 PM EDT [facility] Blood Capillary blood specimen / Unknown 10/02/2024 11:56 PM EDT 10/02/2024 11:58 PM EDT Momo Akhtar MD LAB POINT OF CARE TE ST DOCKED DEVICE UNSOLICITED RESULTS Final Result Performing Organization Address City/[facility] Co de Phone Number [facility] [address] [place] [address] * (ABNORMAL) POCT glucose meter (10/02/2024 6:29 PM EDT) [facility] POCT Glucose 110(H) 74 - 99 mg/dL [...] Comment 10/02/2024 6:30 PM EDT HEALTHCARE LAB Emblem Maker ID Klever Ware 10/02/2024 6:30 PM EDT HEALTHCARE LAB Device ID [id number] 10/02/2024 6:30 PM EDT HEALTHCARE LAB Specimen Type POC Capillary 10/02/2024 6:30 PM EDT [facility] LAB Blood Capillary blood specimen / Unknown 10/02/2024 6:29 PM EDT 10/02/2024 6:30 PM EDT us Momo Akhtar MD LAB POINT OF CARE TE ST DOCKED DEVICE UNSOLICITED RESULTS Final Result Performing Organization Address City/[facility]/ZIP Co de Phone Number [facility] [address] [place] [address] * POCT glucose meter (10/02/2024 6:08 PM EDT) [facility] POCT Glucose 81 74 - 99 mg/dL 10/02/2024 6:09 PM EDT HEALTHCARE LAB Comment:Accuracy of a [...] Comment 10/02/2024 6:09 PM EDT HEALTHCARE LAB Emblem Maker ID Klever Ware 10/02/2024 6:09 PM EDT HEALTHCARE LAB Device ID [id number] 10/02/2024 6:09 PM EDT [facility]ALTH[facility]ARE LAB Specimen Type POC Capillary 10/02/2024 6:09 PM EDT [facility] LAB Blood Capillary blood specimen / Unknown 10/02/2024 6:08 PM EDT 10/02/2024 6:09 PM EDT us Momo Akhtar MD LAB POINT OF CARE TE ST DOCKED DEVICE UNSOLICITED RESULTS Final Result [facility] [address] [place] [address] * (ABNORMAL) POCT glucose meter (10/02/2024 12:16 PM EDT) [facility] POCT Glucose 139(H) 74 - 99 mg/dL [...] for testing. Comment 10/02/2024 12:18 PM EDT [facility] Emblem Maker ID Tory Oliveira 10/03/19 12:18 PM EDT [facility] Device ID [id number] 10/02/2024 12:18 PM EDT [facility] Specimen Type POC Capillary 10/02/2024 12:18 PM EDT [facility] Blood Capillary blood specimen / Unknown 10/02/2024 12:16 PM EDT 10/02/2024 12:18 PM EDT Momo Akhtar MD LAB POINT OF CARE TE ST DOCKED DEVICE UNSOLICITED RESULTS Final Result Performing Organization Address [facility]/State/ZIP Co de Phone Number [facility] [address] [place] [address] * (ABNORMAL) POCT glucose meter (10/02/2024 6:16 AM EDT) [facility] POCT Glucose 111(H) 74 - 99 mg/dL [...] 10/02/2024 6:17 AM EDT [facility] Emblem Maker ID Caren Maravilla 025 6:17 AM EDT [facility] Device ID [id number] 10/02/2024 6:17 AM EDT [facility] Specimen Type POC Capillary 10/02/2024 6:17 AM EDT [facility] Blood Capillary blood specimen / Unknown 10/02/2024 6:16 AM EDT 10/02/2024 6:17 AM EDT Momo Akhtar MD LAB POINT OF CARE TE ST DOCKED DEVICE UNSOLICITED RESULTS Final Result Performing Organization Address [facility] de Phone Number [facility] [address] [place] [address] * POCT glucose meter (10/02/2024 5:37 AM [...] for testing. Comment 10/02/2024 5:38 AM EDT [facility] Emblem Maker ID Maisha Wright 10/02/2024 5:38 AM EDT [facility]ALTH[facility]ARE LAB Device ID [id number] 10/02/2024 5:38 AM EDT [facility]ALTH[facility]ARE LAB Specimen Type POC Capillary 10/02/2024 5:38 AM EDT [facility] Blood Capillary blood specimen / Unknown 10/02/2024 5:37 AM EDT 10/02/2024 5:38 AM EDT us Momo Akhtar MD LAB POINT OF CARE TE ST DOCKED DEVICE UNSOLICITED RESULTS Final Result Performing Organization Address City/[facility] Co de Phone Number [facility] [address] [place] [address] * POCT glucose meter (10/02/2024 1:03 AM [...] for testing. Comment 10/02/2024 1:04 AM EDT [facility] Emblem Maker ID Caren Maravilla Joselyn 025 1:04 AM EDT [facility]ALTH[facility]ARE LAB Device ID [id number] 10/02/2024 1:04 AM EDT [facility]ALTH[facility] LAB Specimen Type POC Capillary 10/02/2024 1:04 AM EDT [facility] Blood Capillary blood specimen / Unknown 10/02/2024 1:03 AM EDT 10/02/2024 1:04 AM EDT Momo Akhtar MD LAB POINT OF CARE TE ST DOCKED DEVICE UNSOLICITED RESULTS Final Result [facility] [address] [place] [address] * (ABNORMAL) POCT glucose meter (10/02/2024 12:27 AM EDT) [facility] POCT Glucose 131(H) 74 - 99 mg/dL 10/02/2024 12:29 AM EDT [facility] Comment:Accuracy of [...] for testing. Comment 10/02/2024 12:29 AM EDT [facility] Emblem Maker ID Caren Maravilla Joselyn 025 12:29 AM EDT [facility]ALTH[facility]ARE LAB Device ID [id number] 10/02/2024 12:29 AM EDT [facility]ALTH[facility]ARE LAB Specimen Type POC Capillary 10/02/2024 12:29 AM EDT [facility] Blood Capillary blood specimen / Unknown 10/02/2024 12:27 AM EDT 10/02/2024 12:29 AM EDT Momo Akhtar MD LAB POINT OF CARE TE ST DOCKED DEVICE UNSOLICITED RESULTS Final Result Performing Organization Address City/[facility] Co de Phone Number [facility] [address] [place] [address] * (ABNORMAL) POCT glucose meter (10/02/2024 12:02 [...] Comment 10/02/2024 12:05 AM EDT [facility] Emblem Maker ID Maisha Wright 10/02/2024 12:05 AM EDT [facility]ARE LAB Device ID [id number] 10/02/2024 12:05 AM EDT [facility]ALTH[facility]ARE LAB Specimen Type POC Capillary 10/02/2024 12:05 AM EDT [facility] Blood Capillary blood specimen / Unknown 10/02/2024 12:02 AM EDT 10/02/2024 12:05 AM EDT Momo Akhtar MD LAB POINT OF CARE TE ST DOCKED DEVICE UNSOLICITED RESULTS Final Result Performing Organization Address City/[facility]/ZIP Co de Phone Number [facility] [address] [place] [address] * (ABNORMAL) CBC W/O Differential (10/01/2024 5:50 PM EDT) WBC Count 3.20(L) 3.70 - 10.30 10*3/uL LAB HEMATOLOGY METHOD 10/01/2024 6:15 PM EDT [facility] RBC Count 3.83(L) 3.90 - 5.20 10*6/uL LAB HEMATOLOGY METHOD 10/01/2024 6:15 PM EDT [facility] HGB 13.1 11.2 - 15.7 g/dL LAB HEMATOLOGY METHOD 10/01/2024 6:15 PM EDT [facility] HCT 37.2 34.0 - 45.0 % LAB HEMATOLOGY METHOD 10/01/2024 6:15 PM EDT [facility] Platelet Count 100(L) 155 - 369 10*3/uL LAB HEMATOLOGY METHOD 10/01/2024 6:15 PM EDT [facility] MCV 97 79 - 98 fL LAB HEMATOLOGY METHOD 10/01/2024 6:15 PM EDT [facility] MCH 34.2(H) 26.0 - 32.0 pg LAB HEMATOLOGY METHOD 10/01/2024 6:15 PM EDT [facility] MCHC 35.2 30.7 - 35.5 g/dL LAB HEMATOLOGY METHOD 10/01/2024 6:15 PM EDT [facility] RDW 14.0 11.5 - 14.5 % LAB HEMATOLOGY METHOD 10/01/2024 6:15 PM EDT [facility] MPV 8.4(L) 8.8 - 12.5 fL LAB HEMATOLOGY METHOD 10/01/2024 6:15 PM EDT [facility] nRBC 0.0 <=0.0 per 100 WBCs LAB HEMATOLOGY METHOD 10/01/2024 6:15 PM EDT [facility] Blood Venous blood specimen / Unknown Venipuncture / Unknown 10/01/2024 5:50 PM EDT 10/01/2024 5:58 PM EDT us Momo Akhtar MD LAB BLOOD ORDERABLES Final Resu lt [facility] [address] [place] [address] * (ABNORMAL) Comprehensive metabolic panel (10/01/2024 5:50 PM EDT) Glucose, Plasma 83 74 - 99 mg/dL 10/01/2024 6:27 PM EDT [facility] BUN, Plasma 11 7 - 21 mg/dL 10/01/2024 6:27 PM EDT [facility] Creatinine, Plasma 1.17(H) 0.60 - 1.10 mg/dL 10/01/2024 6:27 PM EDT [facility] BUN/Creatinine Ratio 9 10/01/2024 6:27 PM EDT [facility] Sodium, Plasma 139 136 - 145 mmol/L 10/01/2024 6:27 PM EDT [facility] Potassium, Plasma 4.3 3.6 - 4.9 mmol/L 10/01/2024 6:27 PM EDT [facility] Chloride, Plasma 107 97 - 107 mmol/L 10/01/2024 6:27 PM EDT [facility] CO2, Plasma 22 22 - 29 mmol/L 10/01/2024 6:27 PM EDT [facility] Anion Gap 10 6 - 16 mmol/L 10/01/2024 6:27 PM EDT [facility] Total Calcium, Plasma 9.4 8.9 - 10.2 mg/dL 10/01/2024 6:27 PM EDT [facility] Total Protein 6.6 6.3 - 7.9 g/dL 10/01/2024 6:27 PM EDT [facility] Albumin, Plasma 3.6 3.5 - 5.2 g/dL 10/01/2024 6:27 PM EDT [facility] AST, Plasma 46(H) 10 - 35 U/L 10/01/2024 6:27 PM EDT [facility] ALT, Plasma 24 10 - 35 U/L 10/01/2024 6:27 PM EDT [facility] Alkaline Phosphatase, Plasma 75 35 - 104 U/L 10/01/2024 6:27 PM EDT [facility] Total Bilirubin, Plasma 1.3(H) 0.2 - 1.1 mg/dL 10/01/2024 6:27 PM EDT [facility] eGFRcr 55.9 mL/min/1.7 3m*2 10/01/2024 6:27 PM EDT [facility] Comment:Reported eGFRcr in m L/min/1.73m2 is based the CKD-EPI 2020 equation that does not use a race coefficient. Blood Venous blood specimen / Unknown Venipuncture / Unknown 10/01/2024 5:50 PM EDT 10/01/2024 5:58 PM EDT Momo Akhtar MD LAB BLOOD ORDERABLES Final Resu lt Performing Organization Address [facility]/ZIP Co de Phone Number [facility] [address] [place] [address] * Multi Drug Resistance Test (10/01/2024 11:36 AM EDT) Culture No growth at day 1 10/02/2024 1:[address] [facility] Swab (Nares and Dorys Rectal) Non-blood Collection / Unknown 10/01/2024 11:36 AM EDT 10/01/2024 11:45 AM EDT Narrative [facility] - 10/02/2024 1:51 PM EDT This test was developed and its performance characteristics determined by the [facility]. Although the media is FDA-approved, it is not FDA-approved for all specimen types submitted. The FDA has determined that such clearance or approval is not necessary. This test is used for surveillance purposes. It should not be regarded as investigational or for research. The [facility] is certified under the Clinical Laboratory Improvement Amendments of 1988 (CLIA-88) as qualified to perform high complexity clinical laboratory testing. Momo Akhtar MD LAB MICROBIOLOGY - [facility]AL [facility] Final Result Performing Organization Address [facility] Co de Phone Number [facility] [address] [place] [address] * (ABNORMAL) POCT glucose meter (10/01/2024 11:32 AM EDT) POCT Glucose 103(H) 74 - 99 mg/dL 10/01/2024 11:34 AM EDT [facility] Comment:Accuracy of a glucos e result [...] testing. Comment 10/01/2024 11:34 AM EDT [facility] Emblem Maker ID Yvette Almazan 10/01/2024 11:34 AM EDT [facility] Device ID [id number] 10/01/2024 11:34 AM EDT [facility] Specimen Type POC Capillary 10/01/2024 11:34 AM EDT [facility] Blood Capillary blood specimen / Unknown 10/01/2024 11:32 AM EDT 10/01/2024 11:34 AM EDT Momo Akhtar MD LAB POINT OF CARE TE ST DOCKED DEVICE UNSOLICITED RESULTS Final Result Performing Organization Address City/[facility] Co de Phone Number [facility] [address] [place] [address] * (ABNORMAL) POCT glucose meter (10/01/2024 8:35 AM EDT) POCT Glucose 138(H) 74 - 99 mg/dL [...] 10/01/2024 8:36 AM EDT [facility] Emblem Maker ID Yvette Almazan 10/01/2024 8:36 AM EDT [facility] Device ID [id number] 10/01/2024 8:36 AM EDT [facility] Specimen Type POC Capillary 10/01/2024 8:36 AM EDT [facility] Blood Capillary blood specimen / Unknown 10/01/2024 8:35 AM EDT 10/01/2024 8:36 AM EDT Momo Akhtar MD LAB POINT OF CARE TE ST DOCKED DEVICE UNSOLICITED RESULTS Final Result Performing Organization Address City/[facility]/ZIP Co de Phone Number [facility] [address] [place] [address] * POCT glucose meter (10/01/2024 7:57 AM [...] 10/01/2024 7:58 AM EDT [facility] Emblem Maker ID Erika Joya 10/01/2024 7:58 AM EDT [facility] Device ID [id number] 10/01/2024 7:58 AM EDT [facility] Specimen Type POC Capillary 10/01/2024 7:58 AM EDT [facility] Blood Capillary blood specimen / Unknown 10/01/2024 7:57 AM EDT 10/01/2024 7:58 AM EDT Momo Akhtar MD LAB POINT OF CARE TE ST DOCKED DEVICE UNSOLICITED RESULTS Final Result [facility] [address] [place] [address] * POCT glucose meter (10/01/2024 6:13 AM EDT) [facility] POCT Glucose 85 74 - 99 mg/dL [...] 10/01/2024 6:15 AM EDT [facility] Emblem Maker ID Cristian Kent 10/01/2024 6:15 AM EDT [facility] Device ID [id number] 10/01/2024 6:15 AM EDT [facility] Specimen Type POC Capillary 10/01/2024 6:15 AM EDT [facility] Blood Capillary blood specimen / Unknown 10/01/2024 6:13 AM EDT 10/01/2024 6:15 AM EDT Rosetta Matthews MD LAB POINT OF CARE TE ST DOCKED DEVICE UNSOLICITED RESULTS Final Result [facility] [address] [place] [address] * Folate (10/01/2024 5:53 AM EDT) Folate, Serum 9.7 >4.6 ng/mL 10/01/2024 6:50 AM EDT [facility] Blood Venous blood specimen / Unknown Venipuncture / Unknown 10/01/2024 5:53 AM EDT 10/01/2024 6:06 AM EDT Leon Ramirez APRN, DNP LAB BLOOD ORDERABLES Fi nal Result Performing Organization Address [facility] Co de Phone Number [facility] [address] [place] [address] * Zinc (10/01/2024 4:40 AM EDT) Zinc, Serum/Plasma 62.6 60.0 - 120.0 ug/dL 10/03/2024 5:03 AM EDT [facility]) Blood Venous blood specimen / Unknown Venipuncture / Unknown 10/01/2024 4:40 AM EDT 10/01/2024 5:01 AM EDT Narrative [facility]) - 10/03/2024 5:03 AM EDT INTERPRETIVE INFORMATION: [...] developed and its performance characteristics determined by [facility]. It has not been cleared or approved by the US Food and Drug Administration. This test was performed in a CLIA certified laboratory and is intended for clinical purposes. Performed By: [facility] [address] [place] [address] Pest Controller Assistant: Darryl Corado MD, PhD CLIA Number: [id number] Leon Ramirez DIRECTOR INFORMATION, DNP LAB BLOOD ORDERABLES Fi nal Result [facility] [address] [place] [address] * (ABNORMAL) CBC and differential (10/01/2024 3:52 AM EDT) [facility] WBC Count 4.21 3.70 - 10.30 10*3/uL LAB HEMATOLOGY METHOD 10/01/2024 4:18 AM EDT [facility] RBC Count 4.08 3.90 - 5.20 10*6/uL LAB HEMATOLOGY METHOD 10/01/2024 4:18 AM EDT [facility] HGB 13.8 11.2 - 15.7 g/dL LAB HEMATOLOGY METHOD 10/01/2024 4:18 AM EDT [facility] HCT 39.9 34.0 - 45.0 % LAB HEMATOLOGY METHOD 10/01/2024 4:18 AM EDT [facility] Platelet Count 106(L) 155 - 369 10*3/uL LAB HEMATOLOGY METHOD 10/01/2024 4:18 AM EDT [facility] MCV 98 79 - 98 fL LAB HEMATOLOGY METHOD 10/01/2024 4:18 AM EDT [facility] MCH 33.8(H) 26.0 - 32.0 pg LAB HEMATOLOGY METHOD 10/01/2024 4:18 AM EDT [facility] MCHC 34.6 30.7 - 35.5 g/dL LAB HEMATOLOGY METHOD 10/01/2024 4:18 AM EDT [facility] RDW 13.9 11.5 - 14.5 % LAB HEMATOLOGY METHOD 10/01/2024 4:18 AM EDT [facility] MPV 8.4(L) 8.8 - 12.5 fL LAB HEMATOLOGY METHOD 10/01/2024 4:18 AM EDT [facility] nRBC 0.0 <=0.0 per 100 WBCs LAB HEMATOLOGY METHOD 10/01/2024 4:18 AM EDT [facility] Differential Type Automated LAB HEMATOLOGY METHOD 10/01/2024 4:18 AM EDT [facility] Neutrophils % 58 % LAB HEMATOLOGY METHOD 10/01/2024 4:18 AM EDT [facility] Lymphocytes % 20 % LAB HEMATOLOGY METHOD 10/01/2024 4:18 AM EDT [facility] Monocytes % 13 % LAB HEMATOLOGY METHOD 10/01/2024 4:18 AM EDT [facility] Eosinophils % 7 % LAB HEMATOLOGY METHOD 10/01/2024 4:18 AM EDT [facility] Basophils % 1 % LAB HEMATOLOGY METHOD 10/01/2024 4:18 AM EDT [facility] Immature Granulocytes % 1 % LAB HEMATOLOGY METHOD 10/01/2024 4:18 AM EDT [facility] Neutrophils Absolute 2.49 1.60 - 6.10 10*3/uL LAB HEMATOLOGY METHOD 10/01/2024 4:18 AM EDT [facility] Lymphocytes Absolute 0.85(L) 1.20 - 3.90 10*3/uL LAB HEMATOLOGY METHOD 10/01/2024 4:18 AM EDT [facility] Monocytes Absolute 0.53 0.30 - 0.90 10*3/uL LAB HEMATOLOGY METHOD 10/01/2024 4:18 AM EDT [facility] Eosinophils Absolute 0.28 0.00 - 0.50 10*3/uL LAB HEMATOLOGY METHOD 10/01/2024 4:18 AM EDT [facility] Basophils Absolute 0.04 0.00 - 0.10 10*3/uL LAB HEMATOLOGY METHOD 10/01/2024 4:18 AM EDT [facility] Immature Granulocytes Absolute 0.02 0.00 - 0.06 10*3/uL LAB HEMATOLOGY METHOD 10/01/2024 4:18 AM EDT [facility] Blood Venous blood specimen / Unknown Venipuncture / Unknown 10/01/2024 3:52 AM EDT 10/01/2024 4:10 AM EDT [facility] - 10/01/2024 4:18 AM EDT Therapeutic decision making should be based on absolute values, rather than percentages. Leon Ramirez APRN, DNP LAB BLOOD ORDERABLES Fi nal Result Performing Organization Address [facility] [place] [address] * Alcohol Urine (10/01/2024 2:50 AM EDT) Alcohol Urine Negative Negative 10/01/2024 5:40 AM EDT [facility] Urine Urine specimen obtained by clean catch procedure / Unknown Non-blood Collection / Unknown 10/01/2024 2:50 AM EDT 10/01/2024 3:04 AM EDT Narrative [facility] - 10/01/2024 5:40 AM EDT The correlation between urine and serum ethanol concentration is highly variable. Test performed by Gas Chromatography at the [facility]. This test was developed and its performance characteristics determined by [facility]. It has not been cleared or approved by the FDA.The laboratory is regulated under CLIA as qualified to perform high-complexity testing. This test is used for clinical purposes only. Leon Ramirez APRN, DNP LAB URINE ORDERABLES Fi nal Result Performing Organization Address [facility] [place] [address] * Blood Culture (Aerobic/Anaerobet Set) (10/01/2024 12:40 AM EDT) Culture No growth at day 5 10/06/2024 2:02 AM EDT [facility] Blood Venous blood specimen / Unknown Venipuncture / Unknown 10/01/2024 12:40 AM EDT 10/01/2024 1:46 AM EDT Narrative [facility] - 10/06/2024 2:02 AM EDT Low blood volume submitted, results may be compromised Leon Ramirez APRN, DNP LAB MICROBIOLOGY - GENE RAL ORDERABLES Final Result Performing Organization Address City/[facility] Co de Phone Number [address] [place] [address] * Vitamin B12 (09/30/2024 10:22 PM EDT) Pathologist [facility] Vitamin B12, Serum 607 210 - 1,033 pg/mL 09/30/2024 11:19 PM EDT [facility] Blood Venous blood specimen / Unknown Venipuncture / Unknown 09/30/2024 10:22 PM EDT 09/30/2024 10:34 PM EDT Leon Ramirez APRN, DNP LAB BLOOD ORDERABLES Fi nal Result [facility] [address] [place] [address] * Hepatitis panel, acute (09/30/2024 10:22 PM EDT) [facility] Hepatitis B Surf Antigen Negative Negative 10/01/2024 12:57 AM EDT [facility] Hepatitis A Antibody IgM Negative Negative 10/01/2024 12:57 AM EDT [facility] Hepatitis B Core Antibody IgM Negative Negative 10/01/2024 12:57 AM EDT [facility] Blood Venous blood specimen / Unknown Venipuncture / Unknown 09/30/2024 10:22 PM EDT 09/30/2024 10:34 PM EDT Narrative [facility] - 10/01/2024 12:57 AM EDT Hepatitis C Antibody previously reported on patient within 24hrs and will not be repeated on this panel. See previous results below: Hepatitis C Antibody Date Value Ref Range Status 09/30/2024 Negative Negative Final Leon Ceci ANNN, DNP LAB BLOOD ORDERABLES Fi nal Result [facility] [address] [place] [address] * Cortisol (09/30/2024 10:22 PM EDT) Pathologist [facility] Cortisol 3.70 Before 10am: 3.7 - 19.4. After 5pm: 2.9 - 17.3 ug/dL 09/30/2024 11:59 PM EDT [facility] Comment:Testing performed on [employer], standardized against LONG TERM Reference Standard concentration values assigned by LC-MS/MS and verified by BCR 192 and BCR 193 certified reference materials. Blood Venous blood specimen / Unknown Venipuncture / Unknown 09/30/2024 10:22 PM EDT 09/30/2024 10:35 PM EDT Leon Ramirez APRN, DNP LAB REF LAB BLOOD AND F LUID ORD Final Result Performing Organization Address [facility] Co de Phone Number [facility] [address] [place] [address] * Alpha Fetoprotein, Serum (09/30/2024 10:22 PM EDT) Alpha Fetoprotein, Serum <2.3 <10.0 ng/mL 09/30/2024 11:[address] [facility] Blood Venous blood specimen / Unknown Venipuncture / Unknown 09/30/2024 10:22 PM EDT 09/30/2024 10:34 PM EDT Narrative [facility] - 09/30/2024 11:58 PM EDT Performed by Bruce electrochemiluminescent immunoassay which is traceable to the 1st AFP IRP WHO Reference standard 72/255. Results obtained with different test methods or kits cannot be used interchangeably. Leon Ramirez APRN, DNP LAB BLOOD ORDERABLES Fi nal Result Performing Organization Address City/[facility]/ZIP Co de Phone Number [facility] [address] [place] [address] * Ferritin (09/30/2024 10:22 PM EDT) Ferritin, Serum 81 13 - 150 ng/mL 09/30/2024 11:19 PM EDT [facility] Blood Venous blood specimen / Unknown Venipuncture / Unknown 09/30/2024 10:22 PM EDT 09/30/2024 10:34 PM EDT Leon Ramirez APRN, OLVIN LAB BLOOD ORDERABLES Fi nal Result Performing Organization Address City/[facility]/ZIP Co de Phone Number [facility] [address] [place] [address] * Vitamin D 1,25 dihydroxy (09/30/2024 10:22 PM EDT) VITAMIN D, 1, 25-DIHYDROXY 41.0 19.9 - 79.3 pg/mL 10/01/2024 1:[address] [facility] Blood Venous blood specimen / Unknown Venipuncture / Unknown 09/30/2024 10:22 PM EDT 09/30/2024 10:35 PM EDT Leon Ceci [place], [facility] LAB BLOOD ORDERABLES Fi nal Result Performing Organization Address [facility] [place] [address] * (ABNORMAL) Oxcarbazepine Metabolite, Serum (SO) (09/30/2024 10:22 PM EDT) OXCARB Metabolite 5.6(L) 10.0 - 35.0 ug/mL 10/03/2024 3:14 PM EDT [facility]) Blood Venous blood specimen / Unknown Venipuncture / Unknown 09/30/2024 10:22 PM EDT 09/30/2024 10:43 PM EDT Narrative [facility]) - 10/03/2024 3:14 PM EDT INTERPRETIVE INFORMATION: Oxcarbazepine Metabolite, Serum Therapeutic Range: 10.0 - 35.0 ug/mL Toxic Range: >=40.0 ug/mL This test measures monohydroxyoxcarbazepine (MHD). Adverse effects may include dizziness, fatigue, nausea, headache, somnolence, ataxia, and tremor. Performed By: [facility] [address] [place] [id number] Pest Controller Assistant: Darryl Corado MD, PhD CLIA Number: [id number] Leon Dasha Ramirez APRN, DNP LAB REF LAB BLOOD AND F LUID ORD Final Result [facility] [address] [place] [address] * Phosphorus (09/30/2024 10:22 PM EDT) Phosphorus, Plasma 3.5 2.5 - 4.5 mg/dL 09/30/2024 10:52 PM EDT [facility] Blood Venous blood specimen / Unknown Venipuncture / Unknown 09/30/2024 10:22 PM EDT 09/30/2024 10:24 PM EDT Leon Ramirez APRN, DNP LAB BLOOD ORDERABLES Fi nal Result Performing Organization Address City/[facility]/ZIP Co de Phone Number [facility] [address] [place] [address] * Magnesium, Plasma (09/30/2024 10:22 PM EDT) Magnesium, Plasma 2.2 1.9 - 2.4 mg/dL 09/30/2024 10:52 PM EDT [facility] Blood Venous blood specimen / Unknown Venipuncture / Unknown 09/30/2024 10:22 PM EDT 09/30/2024 10:24 PM EDT Leon Ramirez APRN, DNP LAB BLOOD ORDERABLES Fi nal Result Performing Organization Address City/[facility]/ZIP Co de Phone Number [facility] [address] [place] [address] * (ABNORMAL) Comprehensive metabolic panel (09/30/2024 10:22 PM EDT) Glucose, Plasma 77 74 - 99 mg/dL 09/30/2024 10:52 PM EDT [facility] BUN, Plasma 13 7 - 21 mg/dL 09/30/2024 10:52 PM EDT [facility] Creatinine, Plasma 1.28(H) 0.60 - 1.10 mg/dL 09/30/2024 10:52 PM EDT [facility] BUN/Creatinine Ratio 10 09/30/2024 10:52 PM EDT [facility] Sodium, Plasma 143 136 - 145 mmol/L 09/30/2024 10:52 PM EDT [facility] Potassium, Plasma 4.4 3.6 - 4.9 mmol/L 09/30/2024 10:52 PM EDT [facility] Chloride, Plasma 110(H) 97 - 107 mmol/L 09/30/2024 10:52 PM EDT [facility] CO2, Plasma 22 22 - 29 mmol/L 09/30/2024 10:52 PM EDT [facility] Anion Gap 11 6 - 16 mmol/L 09/30/2024 10:52 PM EDT [facility] Total Calcium, Plasma 9.5 8.9 - 10.2 mg/dL 09/30/2024 10:52 PM EDT [facility] Total Protein 6.9 6.3 - 7.9 g/dL 09/30/2024 10:52 PM EDT [facility] Albumin, Plasma 3.7 3.5 - 5.2 g/dL 09/30/2024 10:52 PM EDT [facility] AST, Plasma 49(H) 10 - 35 U/L 09/30/2024 10:52 PM EDT [facility] Comment:Hemolyzed, result ma y be falsely increased. ALT, Plasma 25 10 - 35 U/L 09/30/2024 10:52 PM EDT [facility] Alkaline Phosphatase, Plasma 70 35 - 104 U/L 09/30/2024 10:52 PM EDT [facility] Total Bilirubin, Plasma 0.9 0.2 - 1.1 mg/dL 09/30/2024 10:52 PM EDT [facility] eGFRcr 50.2 mL/min/1.7 3m*2 09/30/2024 10:52 PM EDT [facility] Comment:Reported eGFRcr in m L/min/1.73m2 is based the CKD-EPI 2020 equation that does not use a race coefficient. Blood Venous blood specimen / Unknown Venipuncture / Unknown 09/30/2024 10:22 PM EDT 09/30/2024 10:24 PM EDT us Leon Ramirez DIRECTOR INFORMATION, DNP LAB BLOOD ORDERABLES Fi nal Result [facility] [address] [place] [address] * (ABNORMAL) CBC and Differential (09/30/2024 10:22 PM EDT) WBC Count 2.98(L) 3.70 - 10.30 10*3/uL LAB HEMATOLOGY METHOD 09/30/2024 10:33 PM EDT [facility] RBC Count 3.96 3.90 - 5.20 10*6/uL LAB HEMATOLOGY METHOD 09/30/2024 10:33 PM EDT [facility] HGB 13.3 11.2 - 15.7 g/dL LAB HEMATOLOGY METHOD 09/30/2024 10:33 PM EDT [facility] HCT 38.5 34.0 - 45.0 % LAB HEMATOLOGY METHOD 09/30/2024 10:33 PM EDT [facility] Platelet Count 107(L) 155 - 369 10*3/uL LAB HEMATOLOGY METHOD 09/30/2024 10:33 PM EDT [facility] MCV 97 79 - 98 fL LAB HEMATOLOGY METHOD 09/30/2024 10:33 PM EDT [facility] MCH 33.6(H) 26.0 - 32.0 pg LAB HEMATOLOGY METHOD 09/30/2024 10:33 PM EDT [facility] MCHC 34.5 30.7 - 35.5 g/dL LAB HEMATOLOGY METHOD 09/30/2024 10:33 PM EDT [facility] RDW 13.7 11.5 - 14.5 % LAB HEMATOLOGY METHOD 09/30/2024 10:33 PM EDT [facility] MPV 8.3(L) 8.8 - 12.5 fL LAB HEMATOLOGY METHOD 09/30/2024 10:33 PM EDT [facility] nRBC 0.0 <=0.0 per 100 WBCs LAB HEMATOLOGY METHOD 09/30/2024 10:33 PM EDT [facility] Differential Type Automated LAB HEMATOLOGY METHOD 09/30/2024 10:33 PM EDT [facility] Neutrophils % 62 % LAB HEMATOLOGY METHOD 09/30/2024 10:33 PM EDT [facility] Lymphocytes % 19 % LAB HEMATOLOGY METHOD 09/30/2024 10:33 PM EDT [facility] Monocytes % 11 % LAB HEMATOLOGY METHOD 09/30/2024 10:33 PM EDT [facility] Eosinophils % 6 % LAB HEMATOLOGY METHOD 09/30/2024 10:33 PM EDT [facility] Basophils % 1 % LAB HEMATOLOGY METHOD 09/30/2024 10:33 PM EDT [facility] Immature Granulocytes % 1 % LAB HEMATOLOGY METHOD 09/30/2024 10:33 PM EDT [facility] Neutrophils Absolute 1.88 1.60 - 6.10 10*3/uL LAB HEMATOLOGY METHOD 09/30/2024 10:33 PM EDT [facility] Lymphocytes Absolute 0.57(L) 1.20 - 3.90 10*3/uL LAB HEMATOLOGY METHOD 09/30/2024 10:33 PM EDT [facility] Monocytes Absolute 0.32 0.30 - 0.90 10*3/uL LAB HEMATOLOGY METHOD 09/30/2024 10:33 PM EDT [facility] Eosinophils Absolute 0.17 0.00 - 0.50 10*3/uL LAB HEMATOLOGY METHOD 09/30/2024 10:33 PM EDT [facility] Basophils Absolute 0.02 0.00 - 0.10 10*3/uL LAB HEMATOLOGY METHOD 09/30/2024 10:33 PM EDT [facility] Immature Granulocytes Absolute 0.02 0.00 - 0.06 10*3/uL LAB HEMATOLOGY METHOD 09/30/2024 10:33 PM EDT [facility] Blood Venous blood specimen / Unknown Venipuncture / Unknown 09/30/2024 10:22 PM EDT 09/30/2024 10:24 PM EDT Narrative [facility] - 09/30/2024 10:33 PM EDT Therapeutic decision making should be based on absolute values, rather than percentages. us Leon W Alexeya DIRECTOR INFORMATION, DNP LAB BLOOD ORDERABLES Fi nal Result [facility] [address] [place] [address] * Creatinine, urine, random (09/30/2024 10:12 PM EDT) Creatinine, Urine 71 mg/dL 09/30/2024 11:06 PM EDT [facility] Urine Urine specimen obtained by clean catch procedure / Unknown Non-blood Collection / Unknown 09/30/2024 10:12 PM EDT 09/30/2024 10:35 PM EDT Leon Dasha Ramirez DIRECTOR INFORMATION, DNP LAB URINE ORDERABLES Fi nal Result [facility] [address] [place] [address] * Osmolality, urine (09/30/2024 10:12 PM EDT) Osmolality, Urine 357 50 - 1,200 mOsm/kg 09/30/2024 11:14 PM EDT [facility] Urine Urine specimen obtained by clean catch procedure / Unknown Non-blood Collection / Unknown 09/30/2024 10:12 PM EDT 09/30/2024 10:35 PM EDT Leon Dasha Ramirez APRN, DNP LAB URINE ORDERABLES Fi nal Result Performing Organization Address City/[facility]/ZIP Co de Phone Number [facility] [address] [place] [address] * Sodium, urine, random (09/30/2024 10:12 PM EDT) Sodium, Urine 67 mmol/L 09/30/2024 11:06 PM EDT [facility] Urine Urine specimen obtained by clean catch procedure / Unknown Non-blood Collection / Unknown 09/30/2024 10:12 PM EDT 09/30/2024 10:35 PM EDT Leon Ramirez DIRECTOR INFORMATION, DNP LAB URINE ORDERABLES Fi nal Result Performing Organization Address City/[facility]/ZIP Co de Phone Number [facility] [address] [place] [address] * Nasopharyngeal Respiratory Panel (09/30/2024 10:09 PM EDT) Nasopharyngeal Respiratory PCR Interpretation Not Detected for all analytes Not Detected for all analytes 10/01/2024 12:42 AM EDT [facility] Swab Nasopharyngeal structure / Unknown Non-blood Collection / Unknown 09/30/2024 10:09 PM EDT 09/30/2024 10:41 PM EDT Narrative [facility] - 10/01/2024 12:42 AM EDT This [...] Respiratory PCR Panel is performed using the [employer] ePlex instrument. This test is FDA approved for use with Nasopharyngeal swabs only. This test is used for clinical purposes. It should not be regarded as investigational or for research. The [facility] Clinical Microbiology Laboratory is certified under the Clinical Laboratory Improvement Amendments of 1988 (CLIA-88) as qualified to perform high complexity clinical laboratory testing. Leon Ramirez APRN, OLVIN LAB MICROBIOLOGY - [facility] ORDERABLES Final Result [facility] [address] [place] [address] * SARS CoV-2/COVID-19 by PCR - Rapid (09/30/2024 10:09 PM EDT) [facility] SARS CoV-2/COVID-1 9 RNA PCR Result Not Detected Not Detected 09/30/2024 11:37 PM EDT [facility] Swab Nasopharyngeal structure / Unknown Non-blood Collection / Unknown 09/30/2024 10:09 PM EDT 09/30/2024 10:41 PM EDT Narrative [facility] - 09/30/2024 11:37 PM EDT This [...] MICROBIOLOGY - GENE RAL ORDERABLES Final Result [facility] [address] [place] [address] * US Abdomen Doppler Limited (09/30/2024 9:44 [...] with normal direction of flow. Procedure Note Cheerlle James MD - 09/30/2024 CLINICAL INDICATION: Hepatic encephalopathy, right upper quadrant [...] MD on 09/30/2024 9:48 PM Leon Ramirez DIRECTOR INFORMATION, DNP IMG US PROCEDURES Final Result * Urinalysis Microscopic Examination (09/30/2024 6:44 PM EDT) Urine Urine specimen obtained by clean catch procedure / Unknown Non-blood Collection / Unknown 09/30/2024 6:44 PM EDT 09/30/2024 6:56 PM EDT Zack Teran MD LAB URINE ORDERABLES Final Re sult Performing Organization Address City/[facility]/ZIP Co de Phone Number [facility] [address] [place] [address] * Urine Garcia Panel (09/30/2024 6:44 PM EDT) Extra Reflex urine culture not indicated 09/30/2024 9:01 PM EDT [facility] Urine Urine specimen obtained by clean catch procedure / Unknown Non-blood Collection / Unknown 09/30/2024 6:44 PM EDT 09/30/2024 7:09 PM EDT Zack Teran MD LAB URINE ORDERABLES Final Re sult [facility] [address] [place] [address] * (ABNORMAL) Urinalysis with reflex microscopic (Culture NOT Included) (09/30/2024 6:44 PM EDT) Color, Urine Yellow LAB URINALYSIS - AUTOMATED METHOD 09/30/2024 7:19 PM EDT [facility] Clarity, Urine Clear LAB URINALYSIS - AUTOMATED METHOD 09/30/2024 7:19 PM EDT [facility] Spec Whitlash, Urine >1.030(H) 1.005 - 1.030 LAB URINALYSIS - AUTOMATED METHOD 09/30/2024 7:19 PM EDT [facility] pH, Urine 7.0 5.0 - 8.0 LAB URINALYSIS - AUTOMATED METHOD 09/30/2024 7:19 PM EDT [facility] Protein, Urine Negative Negative mg/dL LAB URINALYSIS - AUTOMATED METHOD 09/30/2024 7:19 PM EDT [facility] Glucose, Urine Negative Negative mg/dL LAB URINALYSIS - AUTOMATED METHOD 09/30/2024 7:19 PM EDT [facility] Ketones, Urine Negative Negative mg/dL LAB URINALYSIS - AUTOMATED METHOD 09/30/2024 7:19 PM EDT [facility] Blood, Urine Small(A) Negative LAB URINALYSIS - AUTOMATED METHOD 09/30/2024 7:19 PM EDT [facility] Bilirubin, Urine Negative Negative LAB URINALYSIS - AUTOMATED METHOD 09/30/2024 7:19 PM EDT [facility] Urobilinogen, Urine 1.0 0.2 to 1.0 mg/dL LAB URINALYSIS - AUTOMATED METHOD 09/30/2024 7:19 PM EDT [facility] Leukocytes, Urine Negative Negative LAB URINALYSIS - AUTOMATED METHOD 09/30/2024 7:19 PM EDT [facility] Nitrite, Urine Negative Negative LAB URINALYSIS - AUTOMATED METHOD 09/30/2024 7:19 PM EDT [facility] RBC, Urine 4 - 10(A) 0 to 3 /HPF LAB URINALYSIS - AUTOMATED METHOD 09/30/2024 7:19 PM EDT [facility] Comment:This result was prev iously suppressed from the chart. WBC, Urine 0 - 5 0 to 5 /HPF LAB URINALYSIS - AUTOMATED METHOD 09/30/2024 7:19 PM EDT [facility] Comment:This result was prev iously suppressed from the chart. Squamous Epithelial Cells 0 - 2 0 to 5 /HPF LAB URINALYSIS - AUTOMATED METHOD 09/30/2024 7:19 PM EDT [facility] Comment:This result was prev iously suppressed from the chart. Hyaline Casts 0 - 2 0 to 5 /LPF LAB URINALYSIS - AUTOMATED METHOD 09/30/2024 7:19 PM EDT [facility] Comment:This result was prev iously suppressed from the chart. Bacteria, Urine Negative Negative LAB URINALYSIS - AUTOMATED METHOD 09/30/2024 7:19 PM EDT [facility] Comment:This result was prev iously suppressed from the chart. Urine Urine specimen obtained by clean catch procedure / Unknown Non-blood Collection / Unknown 09/30/2024 6:44 PM EDT 09/30/2024 6:56 PM EDT us Zack Teran MD LAB URINE ORDERABLES Final Re sult [facility] [address] [place] [address] * Drug abuse screen (09/30/2024 6:44 PM EDT) Amphetamine Screen Urine Negative Cutoff: 500 ng/mL 09/30/2024 7:17 PM EDT [facility] Benzodiazepines Screen Urine Negative Cutoff: 200 ng/mL 09/30/2024 7:17 PM EDT [facility] Cannabinoid Screen Urine Negative Cutoff: 50 ng/mL 09/30/2024 7:17 PM EDT [facility] Cocaine Screen Urine Negative Cutoff: 300 ng/mL 09/30/2024 7:17 PM EDT [facility] Barbiturate Screen Urine Negative Cutoff: 200 ng/mL 09/30/2024 7:17 PM EDT [facility] Opiate Screen Urine Negative Cutoff: 300 ng/mL 09/30/2024 7:17 PM EDT [facility] Methadone Screen Urine Negative Cutoff: 300 ng/mL 09/30/2024 7:17 PM EDT [facility] Buprenorphine Screen Urine Negative Cutoff: 10 ng/mL 09/30/2024 7:17 PM EDT [facility] Fentanyl Screen Urine Negative Cutoff: 1 ng/mL 09/30/2024 7:17 PM EDT [facility] Oxycodone Screen Urine Negative Cutoff: 100 ng/mL 09/30/2024 7:17 PM EDT [facility] Urine Urine specimen obtained by clean catch procedure / Unknown Non-blood Collection / Unknown 09/30/2024 6:44 PM EDT 09/30/2024 6:56 PM EDT Zack Teran MD LAB URINE ORDERABLES Final Re sult Performing Organization Address [facility]/ZIP Co de Phone Number [facility] [address] [place] [address] * Troponin T, High Sensitivity, 2 Hour, Plasma (09/30/2024 5:25 PM EDT) Troponin T, High Sensitivity, 2 Hour 11 <14 ng/L 09/30/2024 6:01 PM EDT [facility] Blood Venous blood specimen / Unknown Venipuncture / Unknown 09/30/2024 5:25 PM EDT 09/30/2024 5:34 PM EDT Zack Teran MD LAB BLOOD ORDERABLES Final Re sult Performing Organization Address [facility]/ZIP Co de Phone Number [facility] [address] [place] [address] * (ABNORMAL) Ammonia (09/30/2024 5:25 PM EDT) Ammonia 149(H) 11 - 51 umol/L 09/30/2024 6:08 PM EDT [facility] Comment:Improper specimen joe ndling may falsely increase results. Blood Venous blood specimen / Unknown Venipuncture / Unknown 09/30/2024 5:25 PM EDT 09/30/2024 5:35 PM EDT us Zack Teran MD LAB BLOOD ORDERABLES Final Re sult Performing Organization Address City/[facility]/ZIP Co de Phone Number [facility] [address] [place] [address] * POCT glucose meter (09/30/2024 5:16 PM [...] for testing. Comment 09/30/2024 5:17 PM EDT [facility] Emblem Maker ID Clarice Maldonado 09/30/2024 5:17 PM EDT [facility] Device ID [id number] 09/30/2024 5:17 PM EDT [facility] Specimen Type POC Capillary 09/30/2024 5:17 PM EDT [facility] Blood Capillary blood specimen / Unknown 09/30/2024 5:16 PM EDT 09/30/2024 5:17 PM EDT us Edda Young DO LAB POINT OF CARE TE ST DOCKED DEVICE UNSOLICITED RESULTS Final Result Performing Organization Address City/[facility]/ZIP Co de Phone Number [facility] [address] [place] [address] * CT Head wo IV Contrast (09/30/2024 [...] 09/30/2024 3:35 PM Final report signed by Arnu Red MD on 09/30/2024 3:35 PM Narrative [...] POCT glucose meter (09/30/2024 3:16 PM EDT) [facility] POCT Glucose 203(H) 74 - 99 mg/dL [...] 09/30/2024 3:17 PM EDT [facility] Emblem Maker ID Poncho Cadena [id number] 3:17 PM EDT [facility] Device ID [id number] 09/30/2024 3:17 PM EDT [facility] Specimen Type POC Capillary 09/30/2024 3:17 PM EDT [facility] Blood Capillary blood specimen / Unknown 09/30/2024 3:16 PM EDT 09/30/2024 3:17 PM EDT Generic Provider Poct LAB POINT OF CARE TEST DOCKED DEVICE UNSOLICITED RESULTS Final Result [facility] [address] [place] [address] * Iron & Total Iron Binding Capacity, Plasma (Includes Transferrin) (09/30/2024 2:51 PM EDT) [facility] Iron, Plasma 123 30 - 160 ug/dL 09/30/2024 11:52 PM EDT [facility] Transferrin, Plasma 239 200 - 360 mg/dL 09/30/2024 11:52 PM EDT [facility] Total Iron Binding Capacity, Plasma 299 240 - 450 ug/mL 09/30/2024 11:[address] [facility] Transferrin Saturation 41 14 - 50 % 09/30/2024 11:52 PM EDT [facility] Blood Venous blood specimen / Unknown Venipuncture / Unknown 09/30/2024 2:51 PM EDT 09/30/2024 2:56 PM EDT Leon Ramirez APRN, DNP LAB BLOOD ORDERABLES Fi nal Result Performing Organization Address City/[facility]/ZIP Co de Phone Number [facility] [address] [place] [address] * Phosphorus (09/30/2024 2:51 PM EDT) Phosphorus, Plasma 2.9 2.5 - 4.5 mg/dL 09/30/2024 9:16 PM EDT [facility] Blood Venous blood specimen / Unknown Venipuncture / Unknown 09/30/2024 2:51 PM EDT 09/30/2024 2:56 PM EDT Leon Ramirez APRN, DNP LAB BLOOD ORDERABLES Fi nal Result [facility] [address] [place] [address] * Osmolality (09/30/2024 2:51 PM EDT) Osmolality, Serum 291 275 - 295 mOsm/Kg 09/30/2024 10:20 PM EDT [facility] Blood Venous blood specimen / Unknown Venipuncture / Unknown 09/30/2024 2:51 PM EDT 09/30/2024 2:56 PM EDT Leon W Mingua DIRECTOR INFORMATION, DNP LAB BLOOD ORDERABLES Fi nal Result Performing Organization Address [facility]/ZIP Co de Phone Number [facility] [address] [place] [address] * ED HIV 1/2 Antibody/Antigen Screen w/Reflex to HIV 1/2 Differentiation (09/30/2024 2:51 PM EDT) HIV 1 & 2 Antibody/Antigen Screen Non Reactive Non Reactive 09/30/2024 3:46 PM EDT [facility] Comment:Screening for HIV 1 & 2 antibodies, and P24 antigen is NONREACTIVE. No confirmatory testing is required. Blood Venous blood specimen / Unknown Venipuncture / Unknown 09/30/2024 2:51 PM EDT 09/30/2024 3:04 PM EDT us Zack Teran MD LAB BLOOD ORDERABLES Final Re sult Performing Organization Address [facility] Co de Phone Number [facility] [address] [place] [address] * (ABNORMAL) PT-INR (09/30/2024 2:51 PM EDT) Prothrombin Time 14.8(H) 12.0 - 14.3 sec 09/30/2024 3:11 PM EDT [facility] INR 1.2(H) 0.9 - 1.1 09/30/2024 3:11 PM EDT [facility] Blood Venous blood specimen / Unknown Venipuncture / Unknown 09/30/2024 2:51 PM EDT 09/30/2024 2:56 PM EDT Narrative [facility] - 09/30/2024 3:11 PM EDT OPTIMAL INR RANGES FOR PATIENT ON ORAL ANTICOAGULANT THERAPY Prevention of venous thromboembolism INR 2.0 to 3.0 In patients with heart disease: Atrial fibrillation INR 2.0 to 3.0 Valvular heart disease INR 2.0 to 3.0 Tissue heart valves INR 2.0 to 3.0 Mechanical prosthetic valves INR 2.5 to 3.5 Prevention of recurrent KS INR 2.5 to 3.5 us Zack Teran MD LAB BLOOD ORDERABLES Final Re sult Performing Organization Address City/[facility] Co de Phone Number [facility] [address] [place] [address] * Free T4, Plasma (09/30/2024 2:51 PM EDT) Free T4, Plasma 0.8 0.8 - 1.7 ng/dL 09/30/2024 4:06 PM EDT [facility] Blood Venous blood specimen / Unknown Venipuncture / Unknown 09/30/2024 2:51 PM EDT 09/30/2024 2:56 PM EDT Narrative [facility] - 09/30/2024 4:06 PM EDT Free T4 Trimester Specific Ranges 1st Trimester 0.9 - 1.50 ng/dL 2nd Trimester 0.7 - 1.40 ng/dL 3rd Trimester 0.7 - 1.24 ng/dL Zack Teran MD LAB BLOOD ORDERABLES Final Re sult Performing Organization Address [facility] Co de Phone Number [facility] [address] [place] [address] * (ABNORMAL) Thyroid Stimulating Hormone, Plasma (09/30/2024 2:51 PM EDT) Thyroid Stimulating Hormone, Plasma 4.87(H) 0.40 - 4.20 uIU/mL 09/30/2024 4:[address] [facility] Blood Venous blood specimen / Unknown Venipuncture / Unknown 09/30/2024 2:51 PM EDT 09/30/2024 2:56 PM EDT Narrative [facility] - 09/30/2024 4:09 PM EDT Trimester Specific Ranges TSH ( IU/mL) 1st Trimester 0.1 - 3.0 2nd Trimester 0.19 - 4.06 3rd Trimester 0.3 - 3.7 us Zack Teran MD LAB BLOOD ORDERABLES Final Re sult Performing Organization Address [facility] Co de Phone Number [facility] [address] [place] [address] * Troponin now and 120 min (09/30/2024 2:51 PM EDT) Troponin T, High Sensitivity, 0 Hour 12 <14 ng/L 09/30/2024 4:09 PM EDT [facility] Blood Venous blood specimen / Unknown Venipuncture / Unknown 09/30/2024 2:51 PM EDT 09/30/2024 2:56 PM EDT Zack Teran MD LAB BLOOD [place] [address] * Lipase (09/30/2024 2:51 PM EDT) Lipase, Plasma 41 19 - 63 U/L 09/30/2024 4:09 PM EDT [facility] Blood Venous blood specimen / Unknown Venipuncture / Unknown 09/30/2024 2:51 PM EDT 09/30/2024 2:56 PM EDT Zack Teran MD LAB BLOOD ORDERABLES Final Re sult Performing Organization Address [facility]/[place] [address] * Magnesium (09/30/2024 2:51 PM EDT) Pathologist [facility] Magnesium, Plasma 2.1 1.9 - 2.4 mg/dL 09/30/2024 4:09 PM EDT [facility] Blood Venous blood specimen / Unknown Venipuncture / Unknown 09/30/2024 2:51 PM EDT 09/30/2024 2:56 PM EDT Zack Teran MD LAB BLOOD ORDERABLES Final Re sult Performing Organization Address City/[facility]/[place] [address] * (ABNORMAL) CMP (09/30/2024 2:51 PM EDT) Glucose, Plasma 63(L) 74 - 99 mg/dL 09/30/2024 4:09 PM EDT [facility] BUN, Plasma 12 7 - 21 mg/dL 09/30/2024 4:09 PM EDT [facility] Creatinine, Plasma 1.36(H) 0.60 - 1.10 mg/dL 09/30/2024 4:09 PM EDT [facility] BUN/Creatinine Ratio 9 09/30/2024 4:09 PM EDT [facility] Sodium, Plasma 141 136 - 145 mmol/L 09/30/2024 4:09 PM EDT [facility] Potassium, Plasma 4.5 3.6 - 4.9 mmol/L 09/30/2024 4:09 PM EDT [facility] Chloride, Plasma 109(H) 97 - 107 mmol/L 09/30/2024 4:09 PM EDT [facility] CO2, Plasma 21(L) 22 - 29 mmol/L 09/30/2024 4:09 PM EDT [facility] Anion Gap 11 6 - 16 mmol/L 09/30/2024 4:09 PM EDT [facility] Total Calcium, Plasma 8.9 8.9 - 10.2 mg/dL 09/30/2024 4:09 PM EDT [facility] Total Protein 6.7 6.3 - 7.9 g/dL 09/30/2024 4:09 PM EDT [facility] Albumin, Plasma 3.7 3.5 - 5.2 g/dL 09/30/2024 4:09 PM EDT [facility] AST, Plasma 45(H) 10 - 35 U/L 09/30/2024 4:09 PM EDT [facility] ALT, Plasma 24 10 - 35 U/L 09/30/2024 4:09 PM EDT [facility] Alkaline Phosphatase, Plasma 69 35 - 104 U/L 09/30/2024 4:09 PM EDT [facility] Total Bilirubin, Plasma 1.0 0.2 - 1.1 mg/dL 09/30/2024 4:09 PM EDT [facility] eGFRcr 46.7 mL/min/1.7 3m*2 09/30/2024 4:09 PM EDT [facility] Comment:Reported eGFRcr in m L/min/1.73m2 is based the CKD-EPI 2020 equation that does not use a race coefficient. Blood Venous blood specimen / Unknown Venipuncture / Unknown 09/30/2024 2:51 PM EDT 09/30/2024 2:56 PM EDT Zack Teran MD LAB BLOOD ORDERABLES Final Re sult Performing Organization Address [facility] Co de Phone Number [facility] [address] [place] [address] * Hepatitis C Antibody - ED (09/30/2024 2:50 PM EDT) [facility] Hepatitis C Antibody Negative Negative 09/30/2024 3:44 PM EDT [facility] Blood Venous blood specimen / Unknown Venipuncture / Unknown 09/30/2024 2:50 PM EDT 09/30/2024 3:04 PM EDT Zack Teran MD LAB BLOOD ORDERABLES Final Re sult Performing Organization Address [facility] Co de Phone Number [facility] [address] [place] [address] * (ABNORMAL) Blood gas panel, venous (09/30/2024 2:50 PM EDT) [facility] pH, Venous 7.38 7.32 - 7.43 LAB HEMATOLOGY METHOD 09/30/2024 3:05 PM EDT [facility] pCO2, Venous 43 37 - 52 mmHg LAB HEMATOLOGY METHOD 09/30/2024 3:05 PM EDT [facility] pO2, Venous 37 25 - 40 mmHg LAB HEMATOLOGY METHOD 09/30/2024 3:05 PM EDT [facility] SO2, Measured, Venous 70 65 - 80 % LAB HEMATOLOGY METHOD 09/30/2024 3:05 PM EDT [facility] Base Excess, Venous -0.2 -2.0 - 3.0 mmol/L LAB HEMATOLOGY METHOD 09/30/2024 3:05 PM EDT [facility] Bicarbonate, Calculated, Venous 25 22 - 26 mmol/L LAB HEMATOLOGY METHOD 09/30/2024 3:05 PM EDT [facility] Hematocrit, Whole Blood 39.5 34.0 - 45.0 % LAB HEMATOLOGY METHOD 09/30/2024 3:05 PM EDT [facility] Sodium, Whole Blood 142 136 - 145 mmol/L LAB HEMATOLOGY METHOD 09/30/2024 3:05 PM EDT [facility] Potassium, Whole Blood 4.3 3.6 - 4.9 mmol/L LAB HEMATOLOGY METHOD 09/30/2024 3:05 PM EDT [facility] Chloride, Whole Blood 111(H) 97 - 107 mmol/L LAB HEMATOLOGY METHOD 09/30/2024 3:05 PM EDT [facility] Glucose, Whole Blood 62(L) 74 - 99 mg/dL LAB HEMATOLOGY METHOD 09/30/2024 3:05 PM EDT [facility] Lactate, Venous, Whole Blood 1.1 0.5 - 2.2 mmol/L LAB HEMATOLOGY METHOD 09/30/2024 3:05 PM EDT [facility] Ionized Calcium, Whole Blood 4.6 4.6 - 5.1 mg/dL LAB HEMATOLOGY METHOD 09/30/2024 3:05 PM EDT [facility] [facility] Blood Venous blood specimen / Unknown Venipuncture / Unknown 09/30/2024 2:50 PM EDT 09/30/2024 3:04 PM EDT us Zack Teran MD LAB BLOOD ORDERABLES Final Re sult [facility] [address] [place] [address] * Type and screen (09/30/2024 2:50 PM [...] ORDERABLE S Final Result Performing Organization Address City/[facility]/ZIP Co de Phone Number BLOOD BANK [address] [place] [address], * Lactic acid, venous (09/30/2024 2:50 PM EDT) Lactate, Venous, Whole Blood 1.1 0.5 - 2.2 mmol/L LAB HEMATOLOGY METHOD 09/30/2024 3:05 PM EDT [facility] Blood Venous blood specimen / Unknown Venipuncture / Unknown 09/30/2024 2:50 PM EDT 09/30/2024 3:04 PM EDT Zack Teran MD LAB BLOOD ORDERABLES Final Re sult Performing Organization Address City/[facility]/ZIP Co de Phone Number [facility] [address] [place] [address] * (ABNORMAL) CBC (09/30/2024 2:50 PM EDT) WBC Count 3.48(L) 3.70 - 10.30 10*3/uL LAB HEMATOLOGY METHOD 09/30/2024 2:58 PM EDT [facility] RBC Count 3.96 3.90 - 5.20 10*6/uL LAB HEMATOLOGY METHOD 09/30/2024 2:58 PM EDT [facility] HGB 13.5 11.2 - 15.7 g/dL LAB HEMATOLOGY METHOD 09/30/2024 2:58 PM EDT [facility] HCT 38.8 34.0 - 45.0 % LAB HEMATOLOGY METHOD 09/30/2024 2:58 PM EDT [facility] Platelet Count 100(L) 155 - 369 10*3/uL LAB HEMATOLOGY METHOD 09/30/2024 2:58 PM EDT [facility] MCV 98 79 - 98 fL LAB HEMATOLOGY METHOD 09/30/2024 2:58 PM EDT [facility] MCH 34.1(H) 26.0 - 32.0 pg LAB HEMATOLOGY METHOD 09/30/2024 2:58 PM EDT [facility] MCHC 34.8 30.7 - 35.5 g/dL LAB HEMATOLOGY METHOD 09/30/2024 2:58 PM EDT [facility] RDW 13.9 11.5 - 14.5 % LAB HEMATOLOGY METHOD 09/30/2024 2:58 PM EDT [facility] MPV 8.4(L) 8.8 - 12.5 fL LAB HEMATOLOGY METHOD 09/30/2024 2:58 PM EDT [facility] nRBC 0.0 <=0.0 per 100 WBCs LAB HEMATOLOGY METHOD 09/30/2024 2:58 PM EDT [facility] Blood Venous blood specimen / Unknown Venipuncture / Unknown 09/30/2024 2:50 PM EDT 09/30/2024 2:56 PM EDT us Zack Teran MD LAB BLOOD ORDERABLES Final Re sult Performing Organization Address City/[facility]/ZIP Co de Phone Number [facility] [address] [place] [address] * EKG now - STAT (adult) (09/30/2024 2:41 PM EDT) EKG DIAGNOSIS CLASS Normal MUSE ECG Ventricular Rate 72 BPM MUSE ECG Atrial Rate 72 BPM MUSE ECG IL Interval 178 ms MUSE ECG QRSD Interval 96 ms MUSE ECG QT Interval 408 ms MUSE ECG QTC Interval 446 ms MUSE ECG P [place] 10 degrees MUSE ECG R [place] 25 degrees MUSE ECG T Wave [place] 39 degrees MUSE ECG Diagnosis Normal sinus [...] Comment 09/30/2024 2:21 PM EDT [facility] Emblem Maker ID Gloria Tracy 09/30/2024 2:21 PM EDT [facility] Device ID [id number] 09/30/2024 2:21 PM EDT [facility] Specimen Type POC Capillary 09/30/2024 2:21 PM EDT [facility] Blood Capillary blood specimen / Unknown 09/30/2024 2:13 PM EDT 09/30/2024 2:21 PM EDT us Generic Provider Poct LAB POINT OF CARE TEST DOCKED DEVICE UNSOLICITED RESULTS Final Result [facility] [address] [place] [address] documented in this encounter Visit Diagnoses Diagnosis [...] Discontinued, Routine 0843 (Given - Provider: Josey Bar, ARCADIO)1630 (Given - Provider: Jsoey Bar, ARCADIO) 0938 (Given - Provider: Jayant [...] Discontinued, Routine 0842 (Given - Provider: Josey Bar, ARCADIO)2018 (Given - Provider: Kiana Chang) 0938 (Given [...] Patient/family refused)1620 (Given - Provider: Josey Bar RN)2018 (Given - Provider: Kiana Chang) 0938 (Given - Provider: Jayant Albarado, ARCADIO)165 (Not Given - Provider: Jayant Albarado RN - Reason: Patient/family refused)2101 (Not Given - [...] Routine 0843 (Given - Provider: Josey Bar RN)2017 (Given - Provider: Kiana Chang) 0938 (Given - Provider: Jayant Albarado RN)2100 (Given - Provider: Kiana Chang) 0837 (Given - Provider: Jayant Albarado RN) spironolactone (Aldactone) tablet 50 mg 50 mg, Oral, Daily, First dose on Sun10/08/24 at 1100, Until Discontinued 0843 (Given - Provider: Josey Bar RN) 0938 (Given - Provider: Jayant Albarado RN) 0837 (Given - Provider: Jayant Albarado RN) thiamine (Vitamin B-1) tablet 100 mg 100 [...] Until Sun10/21/24 at 1613, Routine, mild pain 2017 (Given - Provider: Kiana Chang) 1203 (Return to [facility] - Provider: Jayant Albarado RN)2100 (Given - [...] Until Tu10/21/24 at 1613, Routine, low blood sugar per Hypoglycemia Prevention and Treatment protocol glucose (Glutose) 40 % oral gel 15-30 grams of glucose(Linked Group 1) 15-30 grams of glucose, Sublingual, Every 15 min PRN, Starting on Sun09/30/24 at 1453, Until 10/21/24 at 1613, Routine, low blood sugar, per [...] documented as of this encounter Care Teams Seat Cover Installer Relationship Specialty Start Date End Date Pcp, No [address] [place] [address] PCP - General Family Medicine 09/30/24 09/30/24 [place] [address] PCP - General 10/01/24 documented as of this encounter
[2024-12-17 21:16] VITALS: BP 123/50; PULSE 73; RESP 16; TEMP 36.6; O2SAT 95; BMI 41.9
--- NOTE | 2024-12-17 21:26 | XR_ITS ---
PROCEDURE INFORMATION: Exam: XR Chest Exam date and time: 12/17/2024 9:35 PM Age: 54 years old Clinical indication: Shortness of breath; Additional info: SOA TECHNIQUE: Imaging protocol: Radiologic exam of the chest. Views: 1 view. COMPARISON: CR XR CHEST 2V 11/21/2024 6:44 AM FINDINGS: Airway: Mild nonspecific thickening of some of the airways. Lungs: Unremarkable. No consolidation. Pleural spaces: Unremarkable. No pleural effusion. No pneumothorax. Heart/Mediastinum: Unremarkable. No cardiomegaly. Bones/joints: Unremarkable. IMPRESSION: Mild nonspecific thickening of some of the airways. Please correlate clinically for evidence of viral infection versus asthma.
--- NOTE | 2024-12-17 21:26 | CT_ITS ---
PROCEDURE INFORMATION: Exam: CT Head Without Contrast Exam date and time: 12/17/2024 9:39 PM Age: 54 years old Clinical indication: Altered mental status/memory loss; Additional info: AMS TECHNIQUE: Imaging protocol: Computed tomography of the head without contrast. Radiation optimization: All CT scans at this facility use at least one of these dose optimization techniques: automated exposure control; mA and/or kV adjustment per patient size (includes targeted exams where dose is matched to clinical indication); or iterative reconstruction. COMPARISON: CT HEAD/BRAIN WO CON 09/23/2024 5:15 AM FINDINGS: Brain: Bilateral basal ganglia calcifications. Mild chronic brain volume loss and chronic small vessel ischemic changes. Cerebral ventricles: No ventriculomegaly. Paranasal sinuses: The right paranasal sinuses are partially occluded. Mastoid air cells: Visualized mastoid air cells are well aerated. Bones: Unremarkable. No acute fracture. Soft tissues: Unremarkable. IMPRESSION: 1. No acute intracranial findings. If there is high clinical concern for acute infarction, consider MRI for further evaluation. 2. The right paranasal sinuses are partially occluded. Please correlate to exclude acute versus chronic sinusitis. ASSESSMENT: ASPECTS score ([place] Stroke Program Early CT Score) is 10.
--- OUTSIDE RECORDS SUMMARY | 2024-12-17 21:26 | XMS_ITS | Clinical Summary ---
Author Organization Healthcare Address [address] [place] [address] Care Team Providers Care Academic Dean Name Role Phone Celsa Pereira RN Primary [...] cholecalcifero l (True Vitamin D3) 1.25 MG (30699 UT) capsule Take 1 capsule by mouth [...] mouth every 6 hours as needed. Under [place] law, monthly prescriptions (30 days) can be [...] Hospital Encounter [facility] Inpatient [address] [place] [address] Edda Watts DO Arndt, Frederick, MD Romond, John B, MD Chadha, Jagriti, MD Crutcher, Teetee Ewing MD Acute encephalopathy (Primary Dx); HE (hepatic encephalopathy) (CMS/HCC); Thrombocytopenia (CMS/HCC); Dysarthria; Chest pain, unspecified type; Hepatic encephalopathy (CMS/HCC); Altered mental status, unspecified altered mental status type Discharge Disposition: Home-Health Care [facility] 09/30/2024 Travel from Last 3 Months Immunizations Immunization Administration Dates Next Due Hep B, adult 07/27/2020 Influenza, injectable, quadrivalent, preservativ e free 02/16/2020,02/15/2018 [employer] COVID-19 Vaccine (Blue Cap) 18+ 03/08/20 21 [employer] COVID-19 Vac cine (Youssef Cap) 12+ years [...] time in the past 12 m [facility], were you homeless or living in a fdc (including now)? No 10/01/2024 Utilities Answer Date [...] 2021 UKY-Zoster Vaccines (1 of 2) 2021 [id number]-28 Vaccine ( - season) 2023 08/18/2021, 03/08/2021, [...] on 10/18/2024 11:42 AM Momo Akhtar MD [facility] US PROCEDURES Final Result * (ABNORMAL) CBC W/O Differential (10/17/2024 4:53 AM EDT) Only the most recent of3 resultswithin the time period is included. WBC Count 2.25(L) 3.70 - 10.30 10*3/uL LAB HEMATOLOGY METHOD 10/17/2024 5:15 AM EDT [facility] RBC Count 3.31(L) 3.90 - 5.20 10*6/uL LAB HEMATOLOGY METHOD 10/17/2024 5:15 AM EDT [facility] HGB 11.2 11.2 - 15.7 g/dL LAB HEMATOLOGY METHOD 10/17/2024 5:15 AM EDT [facility] HCT 33.4(L) 34.0 - 45.0 % LAB HEMATOLOGY METHOD 10/17/2024 5:15 AM EDT [facility] Platelet Count 77(L) 155 - 369 10*3/uL LAB HEMATOLOGY METHOD 10/17/2024 5:15 AM EDT [facility] MCV 101(H) 79 - 98 fL LAB HEMATOLOGY METHOD 10/17/2024 5:15 AM EDT [facility] MCH 33.8(H) 26.0 - 32.0 pg LAB HEMATOLOGY METHOD 10/17/2024 5:15 AM EDT [facility] MCHC 33.5 30.7 - 35.5 g/dL LAB HEMATOLOGY METHOD 10/17/2024 5:15 AM EDT [facility] RDW 14.0 11.5 - 14.5 % LAB HEMATOLOGY METHOD 10/17/2024 5:15 AM EDT [facility] MPV 8.8 8.8 - 12.5 fL LAB HEMATOLOGY METHOD 10/17/2024 5:15 AM EDT [facility] nRBC 0.0 <=0.0 per 100 WBCs LAB HEMATOLOGY METHOD 10/17/2024 5:15 AM EDT [facility] Blood Venous blood specimen / Unknown Venipuncture / Unknown 10/17/2024 4:53 AM EDT 10/17/2024 5:08 AM EDT us Momo Akhtar MD LAB BLOOD ORDERABLES Final Resu lt [facility] [address] [place] [address] * (ABNORMAL) Comprehensive Metabolic Panel, Plasma (10/17/2024 4:53 AM EDT) Only the most recent of8 resultswithin the time period is included. Glucose, Plasma 79 74 - 99 mg/dL 10/17/2024 5:37 AM EDT [facility] BUN, Plasma 7 7 - 21 mg/dL 10/17/2024 5:37 AM EDT [facility] Creatinine, Plasma 0.96 0.60 - 1.10 mg/dL 10/17/2024 5:37 AM EDT [facility] BUN/Creatinine Ratio 7 10/17/2024 5:37 AM EDT [facility] Sodium, Plasma 138 136 - 145 mmol/L 10/17/2024 5:37 AM EDT [facility] Potassium, Plasma 4.1 3.6 - 4.9 mmol/L 10/17/2024 5:37 AM EDT [facility] Chloride, Plasma 106 97 - 107 mmol/L 10/17/2024 5:37 AM EDT [facility] CO2, Plasma 26 22 - 29 mmol/L 10/17/2024 5:37 AM EDT [facility] Anion Gap 6 6 - 16 mmol/L 10/17/2024 5:37 AM EDT [facility] Total Calcium, Plasma 9.4 8.9 - 10.2 mg/dL 10/17/2024 5:37 AM EDT [facility] Total Protein 6.0(L) 6.3 - 7.9 g/dL 10/17/2024 5:37 AM EDT [facility] Albumin, Plasma 3.0(L) 3.5 - 5.2 g/dL 10/17/2024 5:37 AM EDT [facility] AST, Plasma 56(H) 10 - 35 U/L 10/17/2024 5:37 AM EDT [facility] Comment:Hemolyzed, result ma y be falsely increased. ALT, Plasma 29 10 - 35 U/L 10/17/2024 5:37 AM EDT [facility] Alkaline Phosphatase, Plasma 73 35 - 104 U/L 10/17/2024 5:37 AM EDT [facility] Total Bilirubin, Plasma 0.7 0.2 - 1.1 mg/dL 10/17/2024 5:37 AM EDT [facility] eGFRcr 70.9 mL/min/1.7 3m*2 10/17/2024 5:37 AM EDT [facility] Comment:Reported eGFRcr in m L/min/1.73m2 is based the CKD-EPI 2020 equation that does not use a race coefficient. Blood Venous blood specimen / Unknown Venipuncture / Unknown 10/17/2024 4:53 AM EDT 10/17/2024 5:08 AM EDT us Momo Akhtar MD LAB BLOOD ORDERABLES Final Resu lt [facility] [address] [id number] * US Head Neck Soft Tissue (10/11/2024 [...] of18 resultswithin the time period is included. [facility] POCT Glucose 92 74 - 99 mg/dL [...] for testing. Comment 10/05/2024 3:13 AM EDT [facility] Maintenance Plumber ID Parul Bustamante 10/05/2024 3:13 AM EDT [facility] Device ID [id number] 10/05/2024 3:13 AM EDT [facility] Specimen Type POC Capillary 10/05/2024 3:13 AM EDT [facility] Blood Capillary blood specimen / Unknown 10/05/2024 3:05 AM EDT 10/05/2024 3:13 AM EDT us Momo Akhtar MD LAB POINT OF CARE TE ST DOCKED DEVICE UNSOLICITED RESULTS Final Result [facility] [address] [place] [address] * (ABNORMAL) CBC and Differential (10/04/2024 5:20 AM EDT) Only the most recent of4 resultswithin the time period is included. [facility] WBC Count 3.75 3.70 - 10.30 10*3/uL LAB HEMATOLOGY METHOD 10/04/2024 5:39 AM EDT [facility] RBC Count 3.52(L) 3.90 - 5.20 10*6/uL LAB HEMATOLOGY METHOD 10/04/2024 5:39 AM EDT [facility] HGB 11.8 11.2 - 15.7 g/dL LAB HEMATOLOGY METHOD 10/04/2024 5:39 AM EDT [facility] HCT 34.7 34.0 - 45.0 % LAB HEMATOLOGY METHOD 10/04/2024 5:39 AM EDT [facility] Platelet Count 82(L) 155 - 369 10*3/uL LAB HEMATOLOGY METHOD 10/04/2024 5:39 AM EDT [facility] MCV 99(H) 79 - 98 fL LAB HEMATOLOGY METHOD 10/04/2024 5:39 AM EDT [facility] MCH 33.5(H) 26.0 - 32.0 pg LAB HEMATOLOGY METHOD 10/04/2024 5:39 AM EDT [facility] MCHC 34.0 30.7 - 35.5 g/dL LAB HEMATOLOGY METHOD 10/04/2024 5:39 AM EDT [facility] RDW 14.1 11.5 - 14.5 % LAB HEMATOLOGY METHOD 10/04/2024 5:39 AM EDT [facility] MPV 8.5(L) 8.8 - 12.5 fL LAB HEMATOLOGY METHOD 10/04/2024 5:39 AM EDT [facility] nRBC 0.0 <=0.0 per 100 WBCs LAB HEMATOLOGY METHOD 10/04/2024 5:39 AM EDT [facility] Differential Type Automated LAB HEMATOLOGY METHOD 10/04/2024 5:39 AM EDT [facility] Neutrophils % 55 % LAB HEMATOLOGY METHOD 10/04/2024 5:39 AM EDT [facility] Lymphocytes % 25 % LAB HEMATOLOGY METHOD 10/04/2024 5:39 AM EDT [facility] Monocytes % 12 % LAB HEMATOLOGY METHOD 10/04/2024 5:39 AM EDT [facility] Eosinophils % 7 % LAB HEMATOLOGY METHOD 10/04/2024 5:39 AM EDT [facility] Basophils % 0 % LAB HEMATOLOGY METHOD 10/04/2024 5:39 AM EDT [facility] Immature Granulocytes % 1 % LAB HEMATOLOGY METHOD 10/04/2024 5:39 AM EDT [facility] Neutrophils Absolute 2.06 1.60 - 6.10 10*3/uL LAB HEMATOLOGY METHOD 10/04/2024 5:39 AM EDT [facility] Lymphocytes Absolute 0.95(L) 1.20 - 3.90 10*3/uL LAB HEMATOLOGY METHOD 10/04/2024 5:39 AM EDT [facility] Monocytes Absolute 0.44 0.30 - 0.90 10*3/uL LAB HEMATOLOGY METHOD 10/04/2024 5:39 AM EDT [facility] Eosinophils Absolute 0.26 0.00 - 0.50 10*3/uL LAB HEMATOLOGY METHOD 10/04/2024 5:39 AM EDT [facility] Basophils Absolute 0.01 0.00 - 0.10 10*3/uL LAB HEMATOLOGY METHOD 10/04/2024 5:39 AM EDT [facility] Immature Granulocytes Absolute 0.03 0.00 - 0.06 10*3/uL LAB HEMATOLOGY METHOD 10/04/2024 5:39 AM EDT [facility] Blood Venous blood specimen / Unknown Venipuncture / Unknown 10/04/2024 5:20 AM EDT 10/04/2024 5:29 AM EDT Narrative [facility] - 10/04/2024 5:39 AM EDT Therapeutic decision making should be based on absolute values, rather than percentages. us Garcia Lutz MD LAB BLOOD ORDERABLES Final Resul t [facility] [address] [place] [address] * Phosphorus, Plasma (10/04/2024 5:20 AM EDT) Only the most recent of4 resultswithin the time period is included. Phosphorus, Plasma 3.2 2.5 - 4.5 mg/dL 10/04/2024 6:12 AM EDT [facility] Blood Venous blood specimen / Unknown Venipuncture / Unknown 10/04/2024 5:20 AM EDT 10/04/2024 5:29 AM EDT us Garcia Lutz MD LAB BLOOD ORDERABLES Final Resul t Performing Organization Address City/[facility]/ZIP Co de Phone Number [facility] [address] [place] [address] * Magnesium, Plasma (10/04/2024 5:20 AM EDT) Only the most recent of4 resultswithin the time period is included. Magnesium, Plasma 2.1 1.9 - 2.4 mg/dL 10/04/2024 6:12 AM EDT [facility] Blood Venous blood specimen / Unknown Venipuncture / Unknown 10/04/2024 5:20 AM EDT 10/04/2024 5:29 AM EDT Garcia Lutz MD LAB BLOOD ORDERABLES Final Resul t Performing Organization Address [facility] Co de Phone Number [facility] [address] [place] [address] * (ABNORMAL) Blood gas panel, venous (10/04/2024 5:20 AM EDT) Only the most recent of2 resultswithin the time period is included. pH, Venous 7.40 7.32 - 7.43 LAB HEMATOLOGY METHOD 10/04/2024 5:31 AM EDT [facility] pCO2, Venous 45 37 - 52 mmHg LAB HEMATOLOGY METHOD 10/04/2024 5:31 AM EDT [facility] pO2, Venous 82(H) 25 - 40 mmHg LAB HEMATOLOGY METHOD 10/04/2024 5:31 AM EDT [facility] SO2, Measured, Venous 98(H) 65 - 80 % LAB HEMATOLOGY METHOD 10/04/2024 5:31 AM EDT [facility] Base Excess, Venous 2.6 -2.0 - 3.0 mmol/L LAB HEMATOLOGY METHOD 10/04/2024 5:31 AM EDT [facility] Bicarbonate, Calculated, Venous 28(H) 22 - 26 mmol/L LAB HEMATOLOGY METHOD 10/04/2024 5:31 AM EDT [facility] Hematocrit, Whole Blood 36.4 34.0 - 45.0 % LAB HEMATOLOGY METHOD 10/04/2024 5:31 AM EDT [facility] Sodium, Whole Blood 141 136 - 145 mmol/L LAB HEMATOLOGY METHOD 10/04/2024 5:31 AM EDT [facility] Potassium, Whole Blood 4.0 3.6 - 4.9 mmol/L LAB HEMATOLOGY METHOD 10/04/2024 5:31 AM EDT [facility] Chloride, Whole Blood 107 97 - 107 mmol/L LAB HEMATOLOGY METHOD 10/04/2024 5:31 AM EDT [facility] Glucose, Whole Blood 83 74 - 99 mg/dL LAB HEMATOLOGY METHOD 10/04/2024 5:31 AM EDT [facility] Lactate, Venous, Whole Blood 0.9 0.5 - 2.2 mmol/L LAB HEMATOLOGY METHOD 10/04/2024 5:31 AM EDT [facility] Ionized Calcium, Whole Blood 4.8 4.6 - 5.1 mg/dL LAB HEMATOLOGY METHOD 10/04/2024 5:31 AM EDT [facility] Blood Venous blood specimen / Unknown Venipuncture / Unknown 10/04/2024 5:20 AM EDT 10/04/2024 5:29 AM EDT us Garcia Lutz MD LAB BLOOD ORDERABLES Final Resul t [facility] [address] [place] [address] * CT Angio Neck (10/03/2024 1:15 AM [...] Total DLP (Dose-Length Product): 1530.27 mGy.cm (accession [id number]), 1530.27 mGy.cm (accession [id number]), 1530.27 mGy.cm (accession [id number]). Please note: The reported value represents the [...] no aneurysm of either internal carotid artery. [place] and Major Peripheral Branches: There [...] Total DLP (Dose-Length Product): 1530.27 mGy.cm (accession [id number]),1530.27 mGy.cm (accession [id number]), 1530.27 mGy.cm (accession [id number]).Please note: The reported value represents the total [...] no aneurysm of either internal carotid artery. [place] and Major Peripheral Branches: There [...] Total DLP (Dose-Length Product): 1530.27 mGy.cm (accession [id number]), 1530.27 mGy.cm (accession [id number]), 1530.27 mGy.cm (accession [id number]). Please note: The reported value represents the [...] no aneurysm of either internal carotid artery. [place] and Major Peripheral Branches: There [...] Total DLP (Dose-Length Product): 1530.27 mGy.cm (accession [id number]),1530.27 mGy.cm (accession [id number]), 1530.27 mGy.cm (accession [id number]).Please note: The reported value represents the total [...] no aneurysm of either internal carotid artery. [place] and Major Peripheral Branches: There [...] COMMUNICATION: Per this written report. Drafted by Jermanie Mixon MD on 10/03/2024 1:58 AM Final report signed by Jermaine Mixon MD on 10/03/2024 2:09 AM Garcia Lutz MD IMG CT PROCEDURES Final Result * CT Angio Head (10/03/2024 1:15 AM EDT) Anatomical Region Laterality Modality [place] Computed Tomogr aphy Impressions 10/03/2024 [...] Total DLP (Dose-Length Product): 1530.27 mGy.cm (accession [id number]), 1530.27 mGy.cm (accession [id number]), 1530.27 mGy.cm (accession [id number]). Please note: The reported value represents the [...] no aneurysm of either internal carotid artery. [place] and Major Peripheral Branches: There [...] Total DLP (Dose-Length Product): 1530.27 mGy.cm (accession [id number]),1530.27 mGy.cm (accession [id number]), 1530.27 mGy.cm (accession [id number]).Please note: The reported value represents the total [...] no aneurysm of either internal carotid artery. [place] and Major Peripheral Branches: There [...] ECG Atrial Rate 76 BPM MUSE ECG WV Interval 168 ms MUSE ECG QRSD Interval 100 ms MUSE ECG QT Interval 412 ms MUSE ECG QTC Interval 463 ms MUSE ECG P [place] 46 degrees MUSE ECG R [place] 9 degrees MUSE ECG T Wave [place] 29 degrees MUSE ECG Diagnosis Normal sinus [...] mmol/L 10/03/2024 12:49 AM EDT [facility] Maintenance Plumber ID Khang Puri 10/03/2024 12:49 AM EDT [facility] LAB Device ID [id number] 10/03/2024 12:49 AM EDT [facility] Blood, Venous Venous blood specimen / Unknown 10/03/2024 12:44 AM EDT 10/03/2024 12:49 AM EDT us Momo Akhtar MD LAB POINT OF CARE TE ST DOCKED DEVICE UNSOLICITED RESULTS Final Result Performing Organization Address [facility] Co de Phone Number [facility] [address] [place] [address] * Light Blue Top (10/03/2024 12:42 AM EDT) Extra Hold for add-ons 10/03/2024 3:02 AM EDT [facility] Comment:Auto resulted. Blood Venous blood specimen / Unknown 10/03/2024 12:42 AM EDT 10/03/2024 12:46 AM EDT us Momo Akhtar MD LAB BLOOD ORDERABLES Final Resu lt [facility] [address] [place] [address] * Multi Drug Resistance Test (10/01/2024 11:36 AM EDT) Culture No growth at day 1 10/02/2024 1:51 PM EDT [facility] Swab (Nares and Dorys Rectal) Non-blood Collection / Unknown 10/01/2024 11:36 AM EDT 10/01/2024 11:45 AM EDT Narrative [facility] - 10/02/2024 1:51 PM EDT This test was developed and its performance characteristics determined by the [facility]. Although the media is FDA-approved, it is not FDA-approved for all specimen types submitted. The FDA has determined that such clearance or approval is not necessary. This test is used for surveillance purposes. It should not be regarded as investigational or for research. The [facility] is certified under the Clinical Laboratory Improvement Amendments of 1988 (CLIA-88) as qualified to perform high complexity clinical laboratory testing. Momo Akhtar MD LAB MICROBIOLOGY - GENERAL ORDE [facility] Final Result Performing Organization Address City/[facility]/[place] [address] * Folate (10/01/2024 5:53 AM EDT) Folate, Serum 9.7 >4.6 ng/mL 10/01/2024 6:50 AM EDT [facility] Blood Venous blood specimen / Unknown Venipuncture / Unknown 10/01/2024 5:53 AM EDT 10/01/2024 6:06 AM EDT Leon Ornelas APRN, DNP LAB BLOOD ORDERABLES Fi nal Result Performing Organization Address [facility] [place] [address] * Zinc (10/01/2024 4:40 AM EDT) Zinc, [...] developed and its performance characteristics determined by [facility]. It has not been cleared or approved by the [place] Food and Drug Administration. This test was performed in a CLIA certified laboratory and is intended for clinical purposes. Performed By: [facility] [address] [place] [address] Child Development Instructor: Darryl Corado MD, PhD CLIA Number: [id number] Leon Ornelas APRN, DNP LAB BLOOD ORDERABLES Fi nal Result Performing Organization Address [facility] Co de Phone Number [facility]) [address] [place] [phone] * Alcohol Urine (10/01/2024 2:50 AM EDT) Alcohol Urine Negative Negative 10/01/2024 5:40 AM EDT [facility] Urine Urine specimen obtained by clean catch procedure / Unknown Non-blood Collection / Unknown 10/01/2024 2:50 AM EDT 10/01/2024 3:04 AM EDT Narrative [facility] - 10/01/2024 5:40 AM EDT The correlation between urine and serum ethanol concentration is highly variable. Test performed by Gas Chromatography at the [facility]. This test was developed and its performance characteristics determined by [facility]. It has not been cleared or approved by the FDA.The laboratory is regulated under CLIA as qualified to perform high-complexity testing. This test is used for clinical purposes only. Leon Ornelas APRN, DNP LAB URINE ORDERABLES Fi nal Result Performing Organization Address City/[facility]/ZIP Co de Phone Number [facility] [address] [place] [address] * Blood Culture (Aerobic/Anaerobet Set) (10/01/2024 12:40 AM EDT) Culture No growth at day 5 10/06/2024 2:02 AM EDT [facility] Blood Venous blood specimen / Unknown Venipuncture / Unknown 10/01/2024 12:40 AM EDT 10/01/2024 1:46 AM EDT Narrative [facility] - 10/06/2024 2:02 AM EDT Low blood volume submitted, results may be compromised Leon Ornelas APRN, DNP LAB MICROBIOLOGY - GENE RAL ORDERABLES Final Result [facility] [address] [place] [address] * (ABNORMAL) Oxcarbazepine Metabolite, Serum (SO) (09/30/2024 10:22 PM EDT) OXCARB Metabolite 5.6(L) 10.0 - 35.0 ug/mL 10/03/2024 3:14 PM EDT [facility] ([facility]) Blood Venous blood specimen / Unknown Venipuncture / Unknown 09/30/2024 10:22 PM EDT 09/30/2024 10:43 PM EDT Narrative [facility] KEELEY LEAVITT) - 10/03/2024 3:14 PM EDT INTERPRETIVE INFORMATION: Oxcarbazepine Metabolite, Serum Therapeutic Range: 10.0 - 35.0 ug/mL Toxic Range: >=40.0 ug/mL This test measures monohydroxyoxcarbazepine (MHD). Adverse effects may include dizziness, fatigue, nausea, headache, somnolence, ataxia, and tremor. Performed By: [facility] [address] [place] [id number] Child Development Instructor: Darryl Corado MD, PhD CLIA Number: [id number] Leon Ornelas APRN, OLVIN LAB REF LAB BLOOD AND F LUID ORD Final Result [facility] [address] [place] [id number] * Alpha Fetoprotein, Serum (09/30/2024 10:22 PM EDT) Pathologist [facility] Alpha Fetoprotein, Serum <2.3 <10.0 ng/mL 09/30/2024 11:58 PM EDT [facility] Blood Venous blood specimen / Unknown Venipuncture / Unknown 09/30/2024 10:22 PM EDT 09/30/2024 10:34 PM EDT Narrative [facility] - 09/30/2024 11:58 PM EDT Performed by [facility] electrochemiluminescent immunoassay which is traceable to the 1st AFP IRP WHO Reference standard 72/255. Results obtained with different test methods or kits cannot be used interchangeably. Leon Ornelas APRN, OLVIN LAB BLOOD ORDERABLES Fi nal Result Performing Organization Address [facility] Co de Phone Number [facility] [address] [place] [address] * Hepatitis panel, acute (09/30/2024 10:22 PM EDT) [facility] Hep[facility] B Surf Antigen Negative Negative 10/01/2024 12:57 AM EDT [facility] Hepatitis A Antibody IgM Negative Negative 10/01/2024 12:57 AM EDT [facility] Hepatitis B Core Antibody IgM Negative Negative 10/01/2024 12:57 AM EDT [facility] Blood Venous blood specimen / Unknown Venipuncture / Unknown 09/30/2024 10:22 PM EDT 09/30/2024 10:34 PM EDT Narrative [facility] - 10/01/2024 12:57 AM EDT Hepatitis C Antibody previously reported on patient within 24hrs and will not be repeated on this panel. See previous results below: Hepatitis C Antibody Date Value Ref Range Status 09/30/2024 Negative Negative Final Leon Ornelas APRN, OLVIN LAB BLOOD ORDERABLES Fi nal Result Performing Organization Address [facility] Co de Phone Number [facility] [address] [place] [address] * Vitamin D 1,25 dihydroxy (09/30/2024 10:22 PM EDT) VITAMIN D, 1, 25-DIHYDROXY 41.0 19.9 - 79.3 pg/mL 10/01/2024 1:49 PM EDT [facility] Blood Venous blood specimen / Unknown Venipuncture / Unknown 09/30/2024 10:22 PM EDT 09/30/2024 10:35 PM EDT Leon W Ceci ANNN, DNP LAB BLOOD ORDERABLES Fi nal Result [facility] [address] [place] [address] * Ferritin (09/30/2024 10:22 PM EDT) Ferritin, Serum 81 13 - 150 ng/mL 09/30/2024 11:19 PM EDT [facility] Blood Venous blood specimen / Unknown Venipuncture / Unknown 09/30/2024 10:22 PM EDT 09/30/2024 10:34 PM EDT Leon Lou Ceci [place], DNP LAB BLOOD ORDERABLES Fi nal Result Performing Organization Address City/[facility]/ZIP Co de Phone Number [address] [address] * Vitamin B12 (09/30/2024 10:22 PM EDT) Vitamin B12, Serum 607 210 - 1,033 pg/mL 09/30/2024 11:19 PM EDT [facility] Blood Venous blood specimen / Unknown Venipuncture / Unknown 09/30/2024 10:22 PM EDT 09/30/2024 10:34 PM EDT Leon Lou Ceci TOLEDO, DNP LAB BLOOD ORDERABLES Fi nal Result Performing Organization Address City/[facility]/ZIP Co de Phone Number [address] [address] * Cortisol (09/30/2024 10:22 PM EDT) Cortisol 3.70 Before 10am: 3.7 - 19.4. After 5pm: 2.9 - 17.3 ug/dL 09/30/2024 11:59 PM EDT [facility] Comment:Testing performed on Murcia Truckman, standardized against [facility] Reference Standard concentration values assigned by LC-MS/MS and verified by BCR 192 and BCR 193 certified reference materials. Blood Venous blood specimen / Unknown Venipuncture / Unknown 09/30/2024 10:22 PM EDT 09/30/2024 10:35 PM EDT Leon Ornelas APRN, DNP LAB REF LAB BLOOD AND F LUID ORD Final Result Performing Organization Address City/[facility]/ZIP Co de Phone Number [facility] [address] [place] [address] * Sodium, urine, random (09/30/2024 10:12 PM EDT) Sodium, Urine 67 mmol/L 09/30/2024 11:06 PM EDT [facility] Urine Urine specimen obtained by clean catch procedure / Unknown Non-blood Collection / Unknown 09/30/2024 10:12 PM EDT 09/30/2024 10:35 PM EDT Leon Ornelas APRN, DNP LAB URINE ORDERABLES Fi nal Result Performing Organization Address City/[facility]/ZIP Co de Phone Number [facility] [address] [place] [address] * Osmolality, urine (09/30/2024 10:12 PM EDT) Osmolality, Urine 357 50 - 1,200 mOsm/kg 09/30/2024 11:14 PM EDT [facility] Urine Urine specimen obtained by clean catch procedure / Unknown Non-blood Collection / Unknown 09/30/2024 10:12 PM EDT 09/30/2024 10:35 PM EDT Leon Ornelas APRN, DNP LAB URINE ORDERABLES Fi nal Result Performing Organization Address City/[facility]/ZIP Co de Phone Number [facility] [address] [place] [address] * Creatinine, urine, random (09/30/2024 10:12 PM EDT) Creatinine, Urine 71 mg/dL 09/30/2024 11:06 PM EDT [facility] Urine Urine specimen obtained by clean catch procedure / Unknown Non-blood Collection / Unknown 09/30/2024 10:12 PM EDT 09/30/2024 10:35 PM EDT Leon Ornelas APRN, DNP LAB URINE ORDERABLES Fi nal Result Performing Organization Address [facility]/ZIP Co de Phone Number [facility] [address] [place] [address] * SARS CoV-2/COVID-19 by PCR - Rapid (09/30/2024 10:09 PM EDT) Pathologist [facility] SARS CoV-2/COVID-1 9 RNA PCR Result Not Detected Not Detected 09/30/2024 11:37 PM EDT [facility] Swab Nasopharyngeal structure / Unknown Non-blood Collection / Unknown 09/30/2024 10:09 PM EDT 09/30/2024 10:41 PM EDT Narrative [facility] - 09/30/2024 11:37 PM EDT [...] symptoms consistent with COVID-19. Leon W Mingua BROMINATION EQUIPMENT OPERATOR, DNP LAB MICROBIOLOGY - GENE RAL ORDERABLES Final Result [facility] [address] [place] [address] * Nasopharyngeal Respiratory Panel (09/30/2024 10:09 PM EDT) Nasopharyngeal Respiratory PCR Interpretation Not Detected for all analytes Not Detected for all analytes 10/01/2024 12:42 AM EDT [facility] Swab Nasopharyngeal structure / Unknown Non-blood Collection / Unknown 09/30/2024 10:09 PM EDT 09/30/2024 10:41 PM EDT Narrative [facility] - 10/01/2024 12:42 AM EDT [...] Respiratory PCR Panel is performed using the [employer] ePlex instrument. This test is FDA approved for use with Nasopharyngeal swabs only. This test is used for clinical purposes. It should not be regarded as investigational or for research. The [facility] Clinical Microbiology Laboratory is certified under the Clinical Laboratory Improvement Amendments of 1988 (CLIA-88) as qualified to perform high complexity clinical laboratory testing. Leon Ornelas BROMINATION EQUIPMENT OPERATOR, OLVIN LAB MICROBIOLOGY - GENE RAL ORDERABLES Final Result Performing Organization Address City/[facility]/ZIP Co de Phone Number [facility] [address] [place] [address] * US Abdomen Doppler Limited (09/30/2024 9:44 [...] culture not indicated 09/30/2024 9:01 PM EDT [facility] Urine Urine specimen obtained by clean catch procedure / Unknown Non-blood Collection / Unknown 09/30/2024 6:44 PM EDT 09/30/2024 7:09 PM EDT us Zack Teran MD LAB URINE ORDERABLES Final Re sult Performing Organization Address City/[facility]/ZIP Co de Phone Number [facility] [address] [place] [address] * Urinalysis Microscopic Examination (09/30/2024 6:44 PM EDT) Urine Urine specimen obtained by clean catch procedure / Unknown Non-blood Collection / Unknown 09/30/2024 6:44 PM EDT 09/30/2024 6:56 PM EDT us Zack Teran MD LAB URINE ORDERABLES Final Re sult Performing Organization Address City/[facility]/ZIP Co de Phone Number [facility] [address] [place] [address] * Drug abuse screen (09/30/2024 6:44 PM EDT) Amphetamine Screen Urine Negative Cutoff: 500 ng/mL 09/30/2024 7:17 PM EDT [facility] Benzodiazepines Screen Urine Negative Cutoff: 200 ng/mL 09/30/2024 7:17 PM EDT [facility] Cannabinoid Screen Urine Negative Cutoff: 50 ng/mL 09/30/2024 7:17 PM EDT [facility] Cocaine Screen Urine Negative Cutoff: 300 ng/mL 09/30/2024 7:17 PM EDT [facility] Barbiturate Screen Urine Negative Cutoff: 200 ng/mL 09/30/2024 7:17 PM EDT [facility] Opiate Screen Urine Negative Cutoff: 300 ng/mL 09/30/2024 7:17 PM EDT [facility] Methadone Screen Urine Negative Cutoff: 300 ng/mL 09/30/2024 7:17 PM EDT [facility] Buprenorphine Screen Urine Negative Cutoff: 10 ng/mL 09/30/2024 7:17 PM EDT [facility] Fentanyl Screen Urine Negative Cutoff: 1 ng/mL 09/30/2024 7:17 PM EDT [facility] Oxycodone Screen Urine Negative Cutoff: 100 ng/mL 09/30/2024 7:17 PM EDT [facility] Urine Urine specimen obtained by clean catch procedure / Unknown Non-blood Collection / Unknown 09/30/2024 6:44 PM EDT 09/30/2024 6:56 PM EDT us Zack Teran MD LAB URINE ORDERABLES Final Re sult [facility] [address] [place] [address] * (ABNORMAL) Urinalysis with reflex microscopic (Culture NOT Included) (09/30/2024 6:44 PM EDT) Color, Urine Yellow LAB URINALYSIS - AUTOMATED METHOD 09/30/2024 7:19 PM EDT [facility] Clarity, Urine Clear LAB URINALYSIS - AUTOMATED METHOD 09/30/2024 7:19 PM EDT [facility] Spec Tiro, Urine >1.030(H) 1.005 - 1.030 LAB URINALYSIS - AUTOMATED METHOD 09/30/2024 7:19 PM EDT [facility] pH, Urine 7.0 5.0 - 8.0 LAB URINALYSIS - AUTOMATED METHOD 09/30/2024 7:19 PM EDT [facility] Protein, Urine Negative Negative mg/dL LAB URINALYSIS - AUTOMATED METHOD 09/30/2024 7:19 PM EDT [facility] Glucose, Urine Negative Negative mg/dL LAB URINALYSIS - AUTOMATED METHOD 09/30/2024 7:19 PM EDT [facility] Ketones, Urine Negative Negative mg/dL LAB URINALYSIS - AUTOMATED METHOD 09/30/2024 7:19 PM EDT [facility] Blood, Urine Small(A) Negative LAB URINALYSIS - AUTOMATED METHOD 09/30/2024 7:19 PM EDT [facility] Bilirubin, Urine Negative Negative LAB URINALYSIS - AUTOMATED METHOD 09/30/2024 7:19 PM EDT [facility] Urobilinogen, Urine 1.0 0.2 to 1.0 mg/dL LAB URINALYSIS - AUTOMATED METHOD 09/30/2024 7:19 PM EDT [facility] Leukocytes, Urine Negative Negative LAB URINALYSIS - AUTOMATED METHOD 09/30/2024 7:19 PM EDT [facility] Nitrite, Urine Negative Negative LAB URINALYSIS - AUTOMATED METHOD 09/30/2024 7:19 PM EDT [facility] RBC, Urine 4 - 10(A) 0 to 3 /HPF LAB URINALYSIS - AUTOMATED METHOD 09/30/2024 7:19 PM EDT [facility] Comment:This result was prev iously suppressed from the chart. WBC, Urine 0 - 5 0 to 5 /HPF LAB URINALYSIS - AUTOMATED METHOD 09/30/2024 7:19 PM EDT [facility] Comment:This result was prev iously suppressed from the chart. Squamous Epithelial Cells 0 - 2 0 to 5 /HPF LAB URINALYSIS - AUTOMATED METHOD 09/30/2024 7:19 PM EDT [facility] Comment:This result was prev iously suppressed from the chart. Hyaline Casts 0 - 2 0 to 5 /LPF LAB URINALYSIS - AUTOMATED METHOD 09/30/2024 7:19 PM EDT [facility] Comment:This result was prev iously suppressed from the chart. Bacteria, Urine Negative Negative LAB URINALYSIS - AUTOMATED METHOD 09/30/2024 7:19 PM EDT [facility] Comment:This result was prev iously suppressed from the chart. Urine Urine specimen obtained by clean catch procedure / Unknown Non-blood Collection / Unknown 09/30/2024 6:44 PM EDT 09/30/2024 6:56 PM EDT us Zack Teran MD LAB URINE ORDERABLES Final Re sult [facility] [address] [place] [address] * Troponin T, High Sensitivity, 2 Hour, Plasma (09/30/2024 5:25 PM EDT) Troponin T, High Sensitivity, 2 Hour 11 <14 ng/L 09/30/2024 6:01 PM EDT [facility] Blood Venous blood specimen / Unknown Venipuncture / Unknown 09/30/2024 5:25 PM EDT 09/30/2024 5:34 PM EDT us Zack Teran MD LAB BLOOD ORDERABLES Final Re sult Performing Organization Address [facility]/ZIP Co de Phone Number [facility] [address] [place] [address] * (ABNORMAL) Ammonia (09/30/2024 5:25 PM EDT) Ammonia 149(H) 11 - 51 umol/L 09/30/2024 6:08 PM EDT [facility] Comment:Improper specimen joe ndling may falsely increase results. Blood Venous blood specimen / Unknown Venipuncture / Unknown 09/30/2024 5:25 PM EDT 09/30/2024 5:35 PM EDT Zack Teran MD LAB BLOOD ORDERABLES Final Re sult Performing Organization Address [facility] Co de Phone Number [facility] [address] [place] [address] * CT Abdomen Pelvis w IV Contrast [...] 1/2 Differentiation (09/30/2024 2:51 PM EDT) Pathologist [facility] HIV 1 & 2 Antibody/Antigen Screen Non Reactive Non Reactive 09/30/2024 3:46 PM EDT [facility] Comment:Screening for HIV 1 & 2 antibodies, and P24 antigen is NONREACTIVE. No confirmatory testing is required. Blood Venous blood specimen / Unknown Venipuncture / Unknown 09/30/2024 2:51 PM EDT 09/30/2024 3:04 PM EDT us Zack Teran MD LAB BLOOD ORDERABLES Final Re sult Performing Organization Address City/[facility]/ZIP Co de Phone Number [facility] [address] [place] [address] * Troponin now and 120 min (09/30/2024 2:51 PM EDT) [facility] Troponin T, High Sensitivity, 0 Hour 12 <14 ng/L 09/30/2024 4:09 PM EDT [facility] Blood Venous blood specimen / Unknown Venipuncture / Unknown 09/30/2024 2:51 PM EDT 09/30/2024 2:56 PM EDT us Zack Teran MD LAB BLOOD ORDERABLES Final Re sult [facility] [address] [place] [address] * Iron & Total Iron Binding Capacity, Plasma (Includes Transferrin) (09/30/2024 2:51 PM EDT) [facility] Iron, Plasma 123 30 - 160 ug/dL 09/30/2024 11:52 PM EDT [facility] Transferrin, Plasma 239 200 - 360 mg/dL 09/30/2024 11:52 PM EDT [facility] Total Iron Binding Capacity, Plasma 299 240 - 450 ug/mL 09/30/2024 11:52 PM EDT [facility] Transferrin Saturation 41 14 - 50 % 09/30/2024 11:52 PM EDT [facility] Blood Venous blood specimen / Unknown Venipuncture / Unknown 09/30/2024 2:51 PM EDT 09/30/2024 2:56 PM EDT Leon W Ceci ANNN, DNP LAB BLOOD ORDERABLES Fi nal Result Performing Organization Address City/[facility]/ZIP Co de Phone Number [facility] [address] [place] [address] * (ABNORMAL) PT-INR (09/30/2024 2:51 PM EDT) Prothrombin Time 14.8(H) 12.0 - 14.3 sec 09/30/2024 3:11 PM EDT [facility] INR 1.2(H) 0.9 - 1.1 09/30/2024 3:11 PM EDT [facility] Blood Venous blood specimen / Unknown Venipuncture / Unknown 09/30/2024 2:51 PM EDT 09/30/2024 2:56 PM EDT Narrative [facility] - 09/30/2024 3:11 PM EDT OPTIMAL INR RANGES FOR PATIENT ON ORAL ANTICOAGULANT THERAPY Prevention of venous thromboembolism INR 2.0 to 3.0 In patients with heart disease: Atrial fibrillation INR 2.0 to 3.0 Valvular heart disease INR 2.0 to 3.0 Tissue heart valves INR 2.0 to 3.0 Mechanical prosthetic valves INR 2.5 to 3.5 Prevention of recurrent SC INR 2.5 to 3.5 Zack Teran MD LAB BLOOD ORDERABLES Final Re sult [facility] [address] [place] [address] * (ABNORMAL) Thyroid Stimulating Hormone, Plasma (09/30/2024 2:51 PM EDT) Thyroid Stimulating Hormone, Plasma 4.87(H) 0.40 - 4.20 uIU/mL 09/30/2024 4:09 PM EDT [facility] Blood Venous blood specimen / Unknown Venipuncture / Unknown 09/30/2024 2:51 PM EDT 09/30/2024 2:56 PM EDT Narrative [facility] - 09/30/2024 4:09 PM EDT Trimester Specific Ranges TSH ( IU/mL) 1st Trimester 0.1 - 3.0 2nd Trimester 0.19 - 4.06 3rd Trimester 0.3 - 3.7 us Zack Teran MD LAB BLOOD [place] [address] * Free T4, Plasma (09/30/2024 2:51 PM EDT) Free T4, Plasma 0.8 0.8 - 1.7 ng/dL 09/30/2024 4:06 PM EDT [facility] Blood Venous blood specimen / Unknown Venipuncture / Unknown 09/30/2024 2:51 PM EDT 09/30/2024 2:56 PM EDT Narrative [facility] - 09/30/2024 4:06 PM EDT Free T4 Trimester Specific Ranges 1st Trimester 0.9 - 1.50 ng/dL 2nd Trimester 0.7 - 1.40 ng/dL 3rd Trimester 0.7 - 1.24 ng/dL us Zack Teran MD LAB BLOOD ORDERABLES Final Re sult Performing Organization Address City/[facility]/[place] [address] * Osmolality (09/30/2024 2:51 PM EDT) Osmolality, Serum 291 275 - 295 mOsm/Kg 09/30/2024 10:20 PM EDT [facility] Blood Venous blood specimen / Unknown Venipuncture / Unknown 09/30/2024 2:51 PM EDT 09/30/2024 2:56 PM EDT us Leon Ornelas BROMINATION EQUIPMENT OPERATOR, DNP LAB BLOOD ORDERABLES Fi nal Result [facility] [address] [place] [address] * Lipase (09/30/2024 2:51 PM EDT) Lipase, Plasma 41 19 - 63 U/L 09/30/2024 4:09 PM EDT [facility] Blood Venous blood specimen / Unknown Venipuncture / Unknown 09/30/2024 2:51 PM EDT 09/30/2024 2:56 PM EDT us Zack Teran MD LAB BLOOD ORDERABLES Final Re sult Performing Organization Address City/[facility]/ZIP Co de Phone Number [facility] [address] [place] [address] * Lactic acid, venous (09/30/2024 2:50 PM EDT) [facility] Lactate, Venous, Whole Blood 1.1 0.5 - 2.2 mmol/L LAB HEMATOLOGY METHOD 09/30/2024 3:05 PM EDT [facility] Blood Venous blood specimen / Unknown Venipuncture / Unknown 09/30/2024 2:50 PM EDT 09/30/2024 3:04 PM EDT us Zack Teran MD LAB BLOOD ORDERABLES Final Re sult Performing Organization Address City/[facility]/[place] [address] * Hepatitis C Antibody - ED (09/30/2024 2:50 PM EDT) [facility] Hepatitis C Antibody Negative Negative 09/30/2024 3:44 PM EDT [facility] Blood Venous blood specimen / Unknown Venipuncture / Unknown 09/30/2024 2:50 PM EDT 09/30/2024 3:04 PM EDT us Zack Teran MD LAB BLOOD ORDERABLES Final Re sult [facility] [address] [place] [address] * Type and screen (09/30/2024 2:50 PM [...] ORDERABLE S Final Result Performing Organization Address [facility]/ZIP Co de Phone Number BLOOD BANK [address] [place] [address] * Hemoglobin A1c (06/27/2021 8:20 AM EST) Hemoglobin A1c 4.8 <5.7 % 06/27/2021 7:11 PM EST [facility] Blood Venous blood specimen / Unknown Venipuncture / Unknown 06/27/2021 8:20 AM EST 06/27/2021 8:30 AM EST Ryan Javed MD LAB BLOOD ORDERABLES Final Resul t Performing Organization Address City/[facility]/ZIP Co de Phone Number [facility]ARE [facility] [address] [place] [address] * Cytology (12/11/2018 12:00 AM EDT) 12/11/2018 12/12/2018 5:1 3 PM EDT Narrative [facility] - 12/16/2018 6:58 AM EDT [facility] MR #: [id number] [facility] [place] [id number] 1970 (Age: 48) FW Collect Date: 12/11/2018 00:00 Receipt Date: 12/12/2018 17:13 Page 1 DEPARTMENT OF PATHOLOGY AND LABORATORY MEDICINE CYTOPATHOLOGY REPORT Email: [email or web address] ATTENDING MD/Practitioner: Abraham Steiner MD Service: [facility] Location: [facility] Reported: 12/16/2018 06:58 Collected: 12/11/2018 00:00 INTERPRETATION A. THIN PREP (CERVICAL/VAGINAL): NEGATIVE FOR INTRAEPITHELIAL LESION OR MALIGNANCY. INFLAMMATORY CHANGE. SATISFACTORY FOR EVALUATION; ENDOCERVICAL/ TRANSFORMATION ZONE COMPONENT PRESENT. Slide examined with [employer] ThinPrep Imaging System but manually screened for [...] results is suggested (please call Microbiology at [phone] for results). CLINICAL INFORMATION: Menstrual History: Cyclic Date of Last Menstrual Period: {Not Provided} Other Clinical Conditions: If ASCUS and > 24 years of age, HPV/DNA testing requested. SPECIMEN DESCRIPTION: A: THIN PREP (CERVICAL/VAGINAL) THIN PREP PROCESS CELLULAR ENHANCEMENT ICD: F: A; RT IMAGE [id number] SNOMED CODES: A; [id number] In cases where a pathologist has signed out the report, the service has been rendered in part by a resident. The signing pathologist has performed and is responsible for the reported pathologic evaluation. Abigail Steiner MD LAB PATHOLOGY ORDERABLES Rosie ewing Result [facility] from Last 3 Months or Most Recently Relevant to Health Maintenance Insurance [facility] MEDICAID ANTH Advance Directives * Full [...] Patient has decision-making capacity? Yes Care Teams Academic Dean Relationship Specialty Start Date End Date Celsa Pereira RN [place] [phone] PCP - General 10/01/24
--- OUTSIDE RECORDS SUMMARY | 2024-12-17 21:26 | XMS_ITS | Clinical Summary ---
Author Organization [facility] Address [address] [place] [address] Phone Care Team Providers Care Double End Sewer Name Role Phone Unavailable Primary Care Provider [...] to complete this topic Insurance ANTH PPO [facility] [place] MEDICAID CARVE OUT [facility] COMM[employer] [place] MDR
--- OUTSIDE RECORDS SUMMARY | 2024-12-17 21:27 | XMS_ITS | Encounter Summary ---
Author Organization Healthcare Address [address] [id number] Care Team Providers Care Rn Or Lpn Name Role Phone Celsa Pereira RN Primary Care Provider uLz dunbar Encounter Details Date Type Department Care [...] any time in the past 12 m [facility], were you homeless or living in a [place] health care facility (including now)? No 10/01/2024 Utilities Answer Date Recorded In the past 12 months has th e [employer], gas, oil, or water company threatened to [...] documented as of this encounter Care Teams Rn Or Lpn Relationship Specialty Start Date End Date Celsa Pereira RN [place] [phone] PCP - General 10/01/24 documented as of this encounter
--- NOTE | 2024-12-17 21:31 | HMH.EDGENADL ---
Discharge Plan Disposition Chief Complaint: Weakness Prescriptions Prescriptions: No Action lidocaine 5 % Adhesive Patch,Medicated 1 patch TOPICAL DAILYP PRN (Reason: Pain) Rx Instructions: leave on most painful area for up to 12 hrs oxcarbazepine 150 mg Tablet 150 mg PO BID donepezil 5 mg Tablet 5 mg PO HS cholecalciferol (vitamin D3) 1,250 mcg (50,000 unit) Capsule 1,250 mcg PO WEEKLY Rx Instructions: weekly on SUNDAY promethazine 25 mg suppository 25 mg WA Q6HP PRN (Reason: Nausea And Vomiting) carvedilol 3.125 mg Tablet 3.125 mg PO BID 30 Days Qty: 60 0RF spironolactone 50 mg tablet 50 mg PO DAILY Qty: 30 0RF benzonatate 100 mg capsule 100 mg PO TID PRN (Reason: cough) Qty: 30 0RF azithromycin 250 mg tablet See Rx Instructions .ROUTE .COMPLEX Qty: 6 0RF Rx Instructions: For 250 mg dose pack: take 500 mg today (day 1), then 250 mg for 4 days (days 2-5) pantoprazole 40 mg Tablet,Delayed Release (Dr/Ec) 40 mg PO HS duloxetine 30 mg Capsule,Delayed Release(Dr/Ec) 30 mg PO DAILY melatonin 5 mg tablet 10 mg PO HS pyridoxine (vitamin B6) 50 mg tablet 50 mg PO DAILY acetaminophen 325 mg Tablet 325 mg PO Q6HP PRN (Reason: Mild Pain (Scale Score 1-4)) cyclobenzaprine 5 mg Tablet 5 mg PO TIDP PRN (Reason: Muscle Spasm) ferrous sulfate 324 mg (65 mg iron) tablet,delayed release (DR/EC) 324 mg PO Q2D Rx Instructions: take 1 tab every other day albuterol sulfate 90 mcg/actuation HFA aerosol inhaler 1 puff inhalation Q6HP PRN (Reason: Shortness Of Breath) Patient Comments: INHALE 1 PUFF BY MOUTH EVERY 6 HOURS NEEDED may keep AT bedside (shortness of breath) ondansetron 4 mg tablet,disintegrating 4 mg PO Q6H PRN (Reason: nausea and vomiting) Qty: 10 0RF meloxicam 15 mg tablet 15 mg PO DAILY amlodipine 5 mg tablet 5 mg PO HS levothyroxine 88 mcg tablet 88 mcg PO DAILY polyethylene glycol 3350 17 gram/dose powder 17 g PO DAILY alum-mag hydroxide-simeth [Almacone-2] 400-400-40 mg/5 mL suspension 30 ml PO DAILYP PRN (Reason: gerd) lactulose 10 gram/15 mL solution 30 ml PO TID cetirizine 10 mg tablet 10 mg PO DAILY fluticasone prp-sod.chl,bicarb 50 mcg- 0.9 % Kit,[place] Suspension And [place] 1 ea INTRANASAL DAILY Referrals Follow up/Referrals: Provider,Referral, MD [Primary Care Provider, Medical] - See instructions Print Language Print Language: Kyrgyz Discharge ED Provider: Lola Mckenzie General Adult HPI General Chief complaint: Weakness Stated complaint: weakness and dizziness Time Seen by Provider: 12/17/24 21:15 Mode of Arrival: EMS Source of Information: Patient and EMS Description of Symptoms (Recalled from ER Triage Doc. by RN): Pt presents as resident of [facility] with multiple complaints. Pt reports generalized weakness with associated N/V that began today. Pt reports ABD pain for months Pt denies dysuria. Pt reports feeling anxious and jittery . Pt alter and oriented. History of Present Illness HPI narrative: 54-year-old female presents the emergency department via EMS from [facility] with multiple complaints, patient admits to generalized weakness that has been ongoing on and off today since this afternoon, an episode of nausea vomiting this morning, she admits to chronic abdominal pain states been going on for months , she denies any fever chills, admits to lightheadedness, denies any overt dizziness,/room spinning sensation, denies any presyncopal or syncopal event, denies any diarrhea constipation no urinary type symptomatology, no chest pain, does admit to shortness of breath at times, denies any alcohol tobacco or drug use, denies any SI or HI, other past medical history consistent with pancreatitis, cognitive impairment, FERNANDEZ, liver cirrhosis, pretension, hypothyroidism, patient GCS of 14 per EMS, alert oriented to person, place, somewhat disoriented to day of the week, oriented to month and the year, unsure if this is baseline. Initial triage vitals are unremarkable Please note that above description of symptoms, in this electronic medical record under categorization of recalled from ER triage doctor by RN are reflective of an initial nursing assessment, however, is not reflective of my full history and physical exam that was personally taken and clarified. Consequentially, this preceding description of symptoms, which may include the patient's categorized chief complaint in the EMR, do not reflect my personal clinical impression, and the ultimate description of history of present illness and patient stated complaints should be deferred to this section of the note. Unless stated otherwise or congruent with this section of the note, additional signs, symptoms, or incongruence should be interpreted as inaccurate with my clinical impression. Onset (ago): hour(s) Related Data Home Medications ?Medication ?Instructions ?Recorded ?Confirmed duloxetine 30 mg capsule,delayed 30 mg PO DAILY 05/02/22 11/19/24 release pantoprazole 40 mg tablet,delayed 40 mg PO HS 05/02/22 11/19/24 release melatonin 5 mg tablet 10 mg PO HS 05/03/22 11/19/24 pyridoxine (vitamin B6) 50 mg 50 mg PO DAILY 02/21/23 11/19/24 tablet acetaminophen 325 mg tablet 325 mg PO Q6HP PRN Mild Pain 05/14/23 11/19/24 (Scale Score 1-4) cyclobenzaprine 5 mg tablet 5 mg PO TIDP PRN Muscle Spasm 05/14/23 11/19/24 ferrous sulfate 324 mg (65 mg 324 mg PO Q2D 05/14/23 11/19/24 iron) tablet,delayed release albuterol sulfate 90 mcg/actuation 1 puff inhalation Q6HP PRN 07/18/23 11/19/24 aerosol inhaler Shortness Of Breath cholecalciferol (vitamin D3) 1,250 1,250 mcg PO WEEKLY 04/06/24 11/19/24 mcg (50,000 unit) capsule donepezil 5 mg tablet 5 mg PO HS 04/06/24 11/19/24 lidocaine 5 % topical patch 1 patch topical DAILYP PRN Pain 04/06/24 11/19/24 oxcarbazepine 150 mg tablet 150 mg PO BID 04/06/24 11/19/24 promethazine 25 mg rectal 25 mg WA Q6HP PRN Nausea And 04/06/24 11/19/24 suppository Vomiting aluminum-mag hydroxide-simethicone 30 ml PO DAILYP PRN gerd 11/19/24 11/19/24 400 mg-400 mg-40 mg/5 mL oral susp (Almacone-2) amlodipine 5 mg tablet 5 mg PO HS 11/19/24 11/19/24 cetirizine 10 mg tablet 10 mg PO DAILY 11/19/24 11/19/24 fluticasone prop.50 mcg 1 ea intranasal DAILY 11/19/24 11/19/24 spray,suspen-sod.chloride 0.9% nasal spray kit lactulose 10 gram/15 mL oral 30 ml PO TID 11/19/24 11/19/24 solution levothyroxine 88 mcg tablet 88 mcg PO DAILY 11/19/24 11/19/24 meloxicam 15 mg tablet 15 mg PO DAILY 11/19/24 11/19/24 polyethylene glycol 3350 17 17 g PO DAILY 11/19/24 11/19/24 gram/dose oral powder Previous Rx's ?Medication ?Instructions ?Recorded carvedilol 3.125 mg tablet 3.125 mg PO BID 30 days #60 tabs 04/07/24 spironolactone 50 mg tablet 50 mg PO DAILY #30 tabs 04/07/24 Held on 08/26/24. Instructions: Resume on 08/29/24. ondansetron 4 mg disintegrating 4 mg PO Q6H PRN nausea and 08/26/24 tablet vomiting #10 tabs azithromycin 250 mg tablet See Rx Instructions PO .COMPLEX #6 11/21/24 tabs benzonatate 100 mg capsule 100 mg PO TID PRN cough #30 caps 11/21/24 Allergies Allergy/AdvReac Type Severity Reaction Status Date / Time amoxicillin (From Augmentin) Allergy Unknown Verified 03/25/24 17:02 allergy reaction clavulanic acid (From Allergy Unknown Verified 03/25/24 17:02 Augmentin) allergy reaction oxycodone Allergy Unknown Verified 03/25/24 17:02 allergy reaction PFSH PFS Disclaimer: The information contained in this section may have been updated after the patient was seen, as this information can be updated by other users. Medical History (Updated 11/21/24 @ 07:26 by Sourav Radford MD) Dizziness Dyspnea Nausea Headache Constipation Abnormal finding on diagnostic imaging of kidney Pyelonephritis Cirrhosis of liver Bipolar 1 disorder Hypothyroidism Hypertension Cognitive impairment Murmur, heart Obstructive sleep apnea Hypothyroid Anxiety Surgical History H/O section H/O hernia repair Hx of appendectomy Family History Other No significant family history Social History Smoking Status: Never smoker alcohol intake: never current occupational status: disabled Travel in the last 8 weeks?: None Have you lived/traveled outside [place] in past 30 days?: No Contact w/someone who lives/traveled outside [place] past 30 days?: No Exposure to someone with infectious disease in past 14 days?: No Do you have a fever (greater than 100.4 F or 38 C)?: No Have you tested positive for COVID-19?: No Exposed to someone with COVID-19 in past 14 days?: No Do you have a sore throat?: No Do you have a cough?: No Do you have any weakness?: No Do you have any diarrhea?: No Are you experiencing any unusual bleeding?: No Do you have any muscle aches/pain?: No Do you have any abdominal pain?: No Are you experiencing loss of taste or smell?: No Other Medical History Have you received the Flu Vaccine for this season: No Have you received the Pneumonia Vaccine: No ROS Obtained: Yes All systems reviewed & no additional complaints except as documented Physical Exam General General appearance: alert and in no apparent distress Comment: Alert, to person and place, response to commands, answers questions appropriately Head Head exam: atraumatic and normocephalic Eye Eye exam: Present PERRL and EOMI ENT ENT exam: Present mucous membranes moist Neck Neck exam: Present normal inspection Chest Chest inspection: Present normal inspection and symmetric chest wall rise Respiratory Respiratory exam: Present normal lung sounds bilaterally; Absent respiratory distress Cardiovascular Cardiovascular exam: Present regular rate and normal rhythm Abdominal Exam Abdominal exam: Present soft and tenderness Abdominal tenderness: Present diffuse and mild Extremities Exam Extremities exam: Present normal inspection Neurological Exam Neurological exam: Present alert, oriented X3 and other (Oriented to person place, year, disoriented to day of the week, oriented to month, move extremities to command, no gross focal neurological or sensation deficit, pronator drift in the bilateral lower and upper extremities, no dysarthria or aphasia) Psychiatric Psychiatric exam: Present normal affect Skin Skin exam: Present warm and dry Medical Decision Making Medical Records Medical records reviewed: Yes I reviewed the patient's medical records. Screening: Per USPSTF and CDC recommendations, given the prevalence of disease in our region, it is our hospital?s policy to screen for HIV and viral Hepatitis for all patients aged 18 and over and those with ongoing risk factors. Darrian Inquiry Pt receiving controlled substance: No Darrian was queried for this patient: No Vital Signs: 12/17/24 21:16 Temperature 98 F Temperature Source Oral Pulse Rate [Radial] 73 Respiratory Rate 16 Blood Pressure [Right Arm] 123/50 L Blood Pressure Mean [Right Arm] 74 Blood Pressure Position [Right Arm] Sitting 02 Sat by Pulse Oximetry 95 Oxygen Delivery Method Room Air Lab Data Lab results reviewed: Yes I reviewed the patient's lab results. Lab Results 12/17/24 21:13: WBC 3.7 L, RBC 3.52 L, Hgb 11.6 L, Hct 33.8 L, MCV 96.0, MCH 33.0 H, MCHC 34.3, RDW 14.2, Plt Count 98 L, MPV 9.1, Neut % (Auto) 48.9, Lymph % (Auto) 29.1, [place] % (Auto) 13.9 H, Eos % (Auto) 6.5, Baso % (Auto) 0.8, Neut # (Auto) 1.8, Lymph # (Auto) 1.1, [place] # (Auto) 0.5, Eos # (Auto) 0.2, Baso # (Auto) 0.0 12/17/24 21:13 Orders (Tests/Meds): ED MEDICATIONS Discontinued Medications Generic Name Dose Route Start Last Admin Trade Name Freq PRN Reason Stop Dose Admin Ondansetron HCl 4 mg 12/17/24 21:29 12/17/24 21:44 Ondansetron 4mg/2ml Vial IV 12/17/24 21:30 4 mg ONCE ONE Administration ORDERS Category Date Time Status CT head/brain wo con Stat Cat Scan 12/17/24 21:26 Taken XR chest portable Stat Exams 12/17/24 21:26 Taken Ammonia Stat Lab 12/17/24 21:43 Received Complete Blood Count Auto Diff Stat Lab 12/17/24 21:13 Completed Comprehensive Metabolic Panel Stat Lab 12/17/24 21:13 Received Drug Screen,Urine Stat Lab 12/17/24 21:29 Ordered Ethanol [Ethyl Alcohol] Stat Lab 12/17/24 21:13 Received Lipase Stat Lab 12/17/24 21:13 Received Magnesium Stat Lab 12/17/24 21:13 Received NT Pro Brain Natriuretic Pep. Stat Lab 12/17/24 21:13 Received Troponin I Q3H Lab 12/18/24 00:30 Ordered Troponin I Q3H Lab 12/18/24 03:30 Ordered Troponin I Stat Lab 12/17/24 21:13 Received Urinalysis and Microscopic Stat Lab 12/17/24 21:26 Ordered Medical Decision Narrative: 54-year-old female presents to the emergency department with headedness, episode of nausea and vomiting and generalized weakness, differential diagnose include but not limited to, cardiac arrhythmia, electrolyte disturbance, hypovolemia, acute UTI, acute pyelonephritis, hepatic encephalopathy, uremic encephalopathy, encephalopathy, metabolic encephalopathy, cognitive impairment, among others. Will obtain basic laboratory studies ammonia level, CXR, CT head without contrast, UDS, UA, lipase, ethyl alcohol level, magnesium level, proBNP, troponin, will give 4 mg of Zofran for nausea, and obtain EKG. CBC is notable for mild leukopenia at 3.7, hemoglobin hematocrit 11.6/33.8, I discussed this patient's case with the attending physician at shift change, she will be assuming amended the patient's care/workup, disposition is pending laboratory studies and imaging studies. Critical Care Critical Care Time Critical Care Time: No
[2024-12-17 21:43] LABS: Hematocrit 33.8 % (37.0-47.0); Hemoglobin 11.6 g/dL (12.2-16.2); Immature Granulocytes % 0.8 %; Mean Corpuscular HGB Conc 34.3 g/dL (31.8-35.4); Mean Corpuscular Hemoglobin 33.0 pg (27.0-31.2); Mean Corpuscular Volume 96.0 fl (81-99); Nucleated Red Blood Cells % 0 %; Platelet Count 98 K/mm3 (142-424); Red Blood Count 3.52 M/mm3 (4.20-5.40); Red Cell Distribution Width-SD 49.5 fL; White Blood Count 3.7 K/mm3 (4.8-10.8)
[2024-12-17] MEDS: ONDANSETRON 4MG/2ML VIAL 4 MG IV (21:44)
--- NOTE | 2024-12-17 21:47 | ECG_ITS ---
APPROVED REPORT Exam: Resting ECG HR:60 bpm ECG Measurements Heart Rate 60 AXES DE 170 P 50 QRSd 94 QRS 17 QT 446 T 36 QTc 447 Conclusion Normal sinus rhythm at [address] or T wave changes concerning for ischemia Electronically signed by : Lola Mckenzie, 12/18/2024 00:15:46
[2024-12-17 21:49] VITALS: BP 105/68; PULSE 64; RESP 12; O2SAT 95
[2024-12-17 21:49] LABS: Alanine Aminotransferase 34 U/L (12-78); Albumin Level 3.1 g/dl (3.5-5.0); Albumin/Globulin Ratio 1.0 (1.1-1.8); Alkaline Phosphatase 81 U/L (38-126); Anion Gap 7.7 mEq/L (5-15); Aspartate Amino Transferase 74 U/L (14-36); Bilirubin,Total 1.6 mg/dl (0.2-1.3); Blood Urea Nitrogen 10 mg/dl (7-17); Calcium 8.7 mg/dl (8.4-10.2); Carbon Dioxide 25 mmol/L (22.0-30.0); Chloride 110 mmol/L (98-107); Creatinine Clearance Estimated 53 mL/min (50-200); Creatinine,Serum 1.10 mg/dl (0.52-1.04); Estimated Glomerular Filt Rate 52 ml/min (>60); GFR (African American) 63 ML/MIN (>60); Globulin 3.0 g/dL (1.3-3.2); Glucose 104 mg/dl (74-100); Lipase 198 U/L (23-300); Magnesium 2.0 mg/dl (1.6-2.3); Potassium 3.7 mmoL/L (3.5-5.1); Sodium 139 mmol/L (136-145); Total Protein,Serum 6.1 g/dl (6.3-8.2)
[2024-12-17 22:00] VITALS: BP 105/67; PULSE 58; RESP 16; O2SAT 97
[2024-12-17 22:01] LABS: Ammonia 100 umol/L (9-30)
[2024-12-17 22:01] LABS: NT Pro Brain Natriuretic Pep. 252 pg/mL (0-125)
[2024-12-17 22:04] LABS: Troponin I < 0.01 ng/ml (0.00-0.034)
[2024-12-17] MEDS: ACETAMINOPHEN 500MG TAB 1000 MG PO (22:11)
[2024-12-17] MEDS: BELLADONNA ALKALOIDS 60 ML ML PO (22:12)
[2024-12-17 22:31] VITALS: BP 127/62; PULSE 60; RESP 13; O2SAT 97
[2024-12-17 22:34] LABS: Microscopic, Urine URINE MICROSCOPIC (MICROSCOPIC)
[2024-12-17 22:35] LABS: Color,Urine YELLOW (Yellow); Glucose,Urine (UA) Negative (Negative); Ketones,Urine Negative (Negative); Leukocyte Esterase,Urine Negative (Negative); PH,Urine 6.0 (5.0-8.5); Protein,Urine Negative (Negative); Specific Gravity, Urine 1.025 (1.005-1.030); Urobilinogen,Urine 0.2 EU/dl (0.2)
[2024-12-17 22:38] LABS: Bilirubin,Urine 1+ (Negative)
[2024-12-17 22:43] LABS: Squamous Epithelial Cell,Urine 20-50 #/hpf (0-5)
[2024-12-17 22:44] LABS: Bacteria,Urine 2+ /lpf; Mucus,Urine 4+ /lpf
[2024-12-17] MEDS: KETOROLAC 30MG/ML VIAL 30 MG IV (22:44)
[2024-12-17 22:48] LABS: Amphetamine/Metha Screen,Urine Negative ng/ml (<1000); Benzodiazepines Screen,Urine Negative ng/ml (<200)
[2024-12-17 22:49] LABS: Barbiturates Screen,Urine Negative ng/ml (<200); Methadone Screen,Urine Negative ng/ml (<300)
[2024-12-17 22:51] LABS: Opiate Screen,Urine Negative ng/ml (<300)
[2024-12-17 22:52] LABS: Phencyclidine Screen,Urine Negative ng/ml (<25)
[2024-12-17 23:00] VITALS: BP 109/76; PULSE 63; RESP 18; O2SAT 95
--- NOTE | 2024-12-17 23:15 | PC.NURSE ---
warm blanket given upon request
--- NOTE | 2024-12-17 23:28 | PC.NURSE ---
in attempt to ambulate patient with Dr Mckenzie in the room, pt reports I just don't have no energy to walk, I just can't do it Attempt to sit on side of bed when patient falls back into the bed, reporting that she is unable to walk. Pt assisted back to bed and covered back up, Pt gcs 15, NAD noted, RR even and non labored, skin pwd.
[2024-12-17] MEDS: AZITHROMYCIN 500 MG in 0.9 % SODIUM CHLORIDE 250 ML 250 MG IV (23:39)
[2024-12-17] MEDS: 0.9 % SODIUM CHLORIDE 1000ML 1,000 ML 999 ML IV (23:40)
--- NOTE | 2024-12-18 00:07 | HMH.EDGENADL ---
Discharge Plan Disposition Patient Disposition: Home, Self-Care Condition: Good Prescriptions Prescriptions: New azithromycin 250 mg tablet 250 mg PO DAILY 4 Days Qty: 4 0RF Rx Instructions: start on day 2 of therapy benzonatate 100 mg capsule 100 mg PO BID PRN (Reason: cough) 5 Days Qty: 10 0RF No Action lidocaine 5 % Adhesive Patch,Medicated 1 patch TOPICAL DAILYP PRN (Reason: Pain) Rx Instructions: leave on most painful area for up to 12 hrs oxcarbazepine 150 mg Tablet 150 mg PO BID donepezil 5 mg Tablet 5 mg PO HS cholecalciferol (vitamin D3) 1,250 mcg (50,000 unit) Capsule 1,250 mcg PO WEEKLY Rx Instructions: weekly on SUNDAY promethazine 25 mg suppository 25 mg [place] Q6HP PRN (Reason: Nausea And Vomiting) carvedilol 3.125 mg Tablet 3.125 mg PO BID 30 Days Qty: 60 0RF spironolactone 50 mg tablet 50 mg PO DAILY Qty: 30 0RF benzonatate 100 mg capsule 100 mg PO TID PRN (Reason: cough) Qty: 30 0RF azithromycin 250 mg tablet See Rx Instructions .ROUTE .COMPLEX Qty: 6 0RF Rx Instructions: For 250 mg dose pack: take 500 mg today (day 1), then 250 mg for 4 days (days 2-5) pantoprazole 40 mg Tablet,Delayed Release (Dr/Ec) 40 mg PO HS duloxetine 30 mg Capsule,Delayed Release(Dr/Ec) 30 mg PO DAILY melatonin 5 mg tablet 10 mg PO HS pyridoxine (vitamin B6) 50 mg tablet 50 mg PO DAILY acetaminophen 325 mg Tablet 325 mg PO Q6HP PRN (Reason: Mild Pain (Scale Score 1-4)) cyclobenzaprine 5 mg Tablet 5 mg PO TIDP PRN (Reason: Muscle Spasm) ferrous sulfate 324 mg (65 mg iron) tablet,delayed release (DR/EC) 324 mg PO Q2D Rx Instructions: take 1 tab every other day albuterol sulfate 90 mcg/actuation HFA aerosol inhaler 1 puff inhalation Q6HP PRN (Reason: Shortness Of Breath) Patient Comments: INHALE 1 PUFF BY MOUTH EVERY 6 HOURS NEEDED may keep AT bedside (shortness of breath) ondansetron 4 mg tablet,disintegrating 4 mg PO Q6H PRN (Reason: nausea and vomiting) Qty: 10 0RF meloxicam 15 mg tablet 15 mg PO DAILY amlodipine 5 mg tablet 5 mg PO HS levothyroxine 88 mcg tablet 88 mcg PO DAILY polyethylene glycol 3350 17 gram/dose powder 17 g PO DAILY alum-mag hydroxide-simeth [Almacone-2] 400-400-40 mg/5 mL suspension 30 ml PO DAILYP PRN (Reason: gerd) lactulose 10 gram/15 mL solution 30 ml PO TID cetirizine 10 mg tablet 10 mg PO DAILY fluticasone prp-sod.chl,bicarb 50 mcg- 0.9 % Kit,[place] Suspension And [place] 1 ea INTRANASAL DAILY Referrals Follow up/Referrals: Provider,Referral, MD [Primary Care Provider, Medical] - See instructions Activity Restrictions/Add. Instructions Additional Instructions/Restrictions: Take the antibiotics as prescribed for 5 days. Clinical Impressions Clinical Impression: Atypical pneumonia Print Language Print Language: [place] Discharge ED Provider: Lola Mckenzie General Adult HPI General Chief complaint: Weakness Stated complaint: weakness and dizziness Time Seen by Provider: 12/17/24 21:15 Mode of Arrival: EMS Source of Information: Patient and EMS Description of Symptoms (Recalled from ER Triage Doc. by RN): Pt presents as resident of [facility] with multiple complaints. Pt reports generalized weakness with associated N/V that began today. Pt reports ABD pain for months Pt denies dysuria. Pt reports feeling anxious and jittery . Pt alter and oriented. History of Present Illness HPI narrative: Patient is a 54-year-old female who presented to the emergency department with generalized weakness for 1 day. Patient reports some nausea but no vomiting. Patient has not had any syncope or chest pain. Patient has not had any shortness of breath. Patient reports cough today but has been nonproductive in nature. Patient denies any urinary symptoms. Patient reports fatigue and decreased energy. Patient denied any headache vision changes or other neurologic symptoms. Onset (ago): hour(s) Related Data Home Medications ?Medication ?Instructions ?Recorded ?Confirmed duloxetine 30 mg capsule,delayed 30 mg PO DAILY 05/02/22 11/19/24 release pantoprazole 40 mg tablet,delayed 40 mg PO HS 05/02/22 11/19/24 release melatonin 5 mg tablet 10 mg PO HS 05/03/22 11/19/24 pyridoxine (vitamin B6) 50 mg 50 mg PO DAILY 02/21/23 11/19/24 tablet acetaminophen 325 mg tablet 325 mg PO Q6HP PRN Mild Pain 05/14/23 11/19/24 (Scale Score 1-4) cyclobenzaprine 5 mg tablet 5 mg PO TIDP PRN Muscle Spasm 05/14/23 11/19/24 ferrous sulfate 324 mg (65 mg 324 mg PO Q2D 05/14/23 11/19/24 iron) tablet,delayed release albuterol sulfate 90 mcg/actuation 1 puff inhalation Q6HP PRN 07/18/23 11/19/24 aerosol inhaler Shortness Of Breath cholecalciferol (vitamin D3) 1,250 1,250 mcg PO WEEKLY 04/06/24 11/19/24 mcg (50,000 unit) capsule donepezil 5 mg tablet 5 mg PO HS 04/06/24 11/19/24 lidocaine 5 % topical patch 1 patch topical DAILYP PRN Pain 04/06/24 11/19/24 oxcarbazepine 150 mg tablet 150 mg PO BID 04/06/24 11/19/24 promethazine 25 mg rectal 25 mg [place] Q6HP PRN Nausea And 04/06/24 11/19/24 suppository Vomiting aluminum-mag hydroxide-simethicone 30 ml PO DAILYP PRN gerd 11/19/24 11/19/24 400 mg-400 mg-40 mg/5 mL oral susp (Almacone-2) amlodipine 5 mg tablet 5 mg PO HS 11/19/24 11/19/24 cetirizine 10 mg tablet 10 mg PO DAILY 11/19/24 11/19/24 fluticasone prop.50 mcg 1 ea intranasal DAILY 11/19/24 11/19/24 spray,suspen-sod.chloride 0.9% nasal spray kit lactulose 10 gram/15 mL oral 30 ml PO TID 11/19/24 11/19/24 solution levothyroxine 88 mcg tablet 88 mcg PO DAILY 11/19/24 11/19/24 meloxicam 15 mg tablet 15 mg PO DAILY 11/19/24 11/19/24 polyethylene glycol 3350 17 17 g PO DAILY 11/19/24 11/19/24 gram/dose oral powder Previous Rx's ?Medication ?Instructions ?Recorded carvedilol 3.125 mg tablet 3.125 mg PO BID 30 days #60 tabs 04/07/24 spironolactone 50 mg tablet 50 mg PO DAILY #30 tabs 04/07/24 Held on 08/26/24. Instructions: Resume on 08/29/24. ondansetron 4 mg disintegrating 4 mg PO Q6H PRN nausea and 08/26/24 tablet vomiting #10 tabs azithromycin 250 mg tablet See Rx Instructions PO .COMPLEX #6 11/21/24 tabs benzonatate 100 mg capsule 100 mg PO TID PRN cough #30 caps 11/21/24 azithromycin 250 mg tablet 250 mg PO DAILY 4 days #4 tabs 12/18/24 benzonatate 100 mg capsule 100 mg PO BID PRN cough 5 days #10 12/18/24 caps Allergies Allergy/AdvReac Type Severity Reaction Status Date / Time amoxicillin (From Augmentin) Allergy Unknown Verified 03/25/24 17:02 allergy reaction clavulanic acid (From Allergy Unknown Verified 03/25/24 17:02 Augmentin) allergy reaction oxycodone Allergy Unknown Verified 03/25/24 17:02 allergy reaction PFSH PFSH Disclaimer: The information contained in this section may have been updated after the patient was seen, as this information can be updated by other users. Medical History (Updated 12/18/24 @ 00:03 by Lola Mckenzie DO) Dizziness Dyspnea Nausea Headache Constipation Abnormal finding on diagnostic imaging of kidney Pyelonephritis Cirrhosis of liver Bipolar 1 disorder Hypothyroidism Hypertension Cognitive impairment Murmur, heart Obstructive sleep apnea Hypothyroid Anxiety Surgical History H/O section H/O hernia repair Hx of appendectomy Family History Other No significant family history Social History Smoking Status: Never smoker alcohol intake: never current occupational status: disabled Travel in the last 8 weeks?: None Have you lived/traveled outside [place] in past 30 days?: No Contact w/someone who lives/traveled outside US past 30 days?: No Exposure to someone with infectious disease in past 14 days?: No Do you have a fever (greater than 100.4 F or 38 C)?: No Have you tested positive for COVID-19?: No Exposed to someone with COVID-19 in past 14 days?: No Do you have a sore throat?: No Do you have a cough?: No Do you have any weakness?: No Do you have any diarrhea?: No Are you experiencing any unusual bleeding?: No Do you have any muscle aches/pain?: No Do you have any abdominal pain?: No Are you experiencing loss of taste or smell?: No Other Medical History Have you received the Flu Vaccine for this season: No Have you received the Pneumonia Vaccine: No ROS Obtained: Yes All systems reviewed & no additional complaints except as documented and Yes Systems reviewed as appropriate & no additional complaints except as documented Physical Exam General General appearance: alert and in no apparent distress Head Head exam: atraumatic, normocephalic and normal inspection Eye Eye exam: Present normal appearance, PERRL and EOMI; Absent scleral icterus ENT ENT exam: Present normal exam and normal external ear exam Neck Neck exam: Present normal inspection and full ROM Chest Chest inspection: Present normal inspection and symmetric chest wall rise Respiratory Respiratory exam: Present normal lung sounds bilaterally; Absent respiratory distress or wheezes Cardiovascular Cardiovascular exam: Present regular rate, normal rhythm and normal heart sounds Abdominal Exam Abdominal exam: Present soft and distention; Absent tenderness, guarding or rebound Extremities Exam Extremities exam: Present normal inspection and full ROM Back Exam Back exam: Present normal inspection and full ROM Neurological Exam Neurological exam: Present alert, oriented X3, CN II-XII intact and other (Non-focal exam) Psychiatric Psychiatric exam: Present normal affect and normal mood Skin Skin exam: Present warm and dry Medical Decision Making Medical Records Medical records reviewed: Yes I reviewed the patient's medical records. Screening: Per USPSTF and CDC recommendations, given the prevalence of disease in our region, it is our hospital?s policy to screen for HIV and viral Hepatitis for all patients aged 18 and over and those with ongoing risk factors. [place] Inquiry Pt receiving controlled substance: No Vital Signs: 12/17/24 21:16 12/17/24 21:49 12/17/24 22:00 Temperature 98 F Temperature Source Oral Pulse Rate 64 58 L Pulse Rate [Radial] 73 Respiratory Rate 16 12 16 Blood Pressure 105/68 L 105/67 L Blood Pressure [Right Arm] 123/50 L Blood Pressure Mean [Right Arm] 74 Blood Pressure Position [Right Arm] Sitting 02 Sat by Pulse Oximetry 95 95 97 Oxygen Delivery Method Room Air 12/17/24 22:31 12/17/24 23:00 Temperature Temperature Source Pulse Rate 60 63 Pulse Rate [Radial] Respiratory Rate 13 18 Blood Pressure 127/62 109/76 L Blood Pressure [Right Arm] Blood Pressure Mean [Right Arm] Blood Pressure Position [Right Arm] 02 Sat by Pulse Oximetry 97 95 Oxygen Delivery Method Lab Data Lab results reviewed: Yes I reviewed the patient's lab results. Lab Results 12/17/24 21:13: WBC 3.7 L, RBC 3.52 L, Hgb 11.6 L, Hct 33.8 L, MCV 96.0, MCH 33.0 H, MCHC 34.3, RDW 14.2, Plt Count 98 L, MPV 9.1, Neut % (Auto) 48.9, Lymph % (Auto) 29.1, [place] % (Auto) 13.9 H, Eos % (Auto) 6.5, Baso % (Auto) 0.8, Neut # (Auto) 1.8, Lymph # (Auto) 1.1, [place] # (Auto) 0.5, Eos # (Auto) 0.2, Baso # (Auto) 0.0, Sodium 139, Potassium 3.7, Chloride 110 H, Carbon Dioxide 25, Anion Gap 7.7, BUN 10, Creatinine 1.10 H, Estimated Creat Clear 53, Estimated GFR 52 L, Est GFR ( Amer) 63, Glucose 104 H, Calcium 8.7, Magnesium 2.0, Total Bilirubin 1.6 H, AST 74 H, ALT 34, Alkaline Phosphatase 81, Troponin I < 0.01, NT-Pro-B Natriuret Pep 252 H, Total Protein 6.1 L, Albumin 3.1 L, Globulin 3.0, Albumin/Globulin Ratio 1.0 L, Lipase 198, Plasma/Serum Alcohol < 10 12/17/24 21:43: Ammonia 100 H 12/17/24 22:24: Urine Color Yellow, Urine Appearance Clear, Urine pH 6.0, Ur Specific [place] 1.025, Urine Protein Negative, Urine Glucose (UA) Negative, Urine Ketones Negative, Urine Blood 3+ A, Urine Nitrate Negative, Urine Bilirubin 1+ A, Urine Urobilinogen 0.2, Ur Leukocyte Esterase Negative, Urine RBC 10-20, Urine WBC None, Ur Squamous Epith Cells 20-50, Urine Bacteria 2+, Urine Mucus 4+, Urine Opiates Screen Negative, Urine Methadone Screen Negative, Ur Barbituates Screen Negative, Ur Phencyclidine Scrn Negative, Ur Amphetamines Screen Negative, U Benzodiazepines Scrn Negative, Urine Cocaine Screen Negative, U Marijuana (THC) Screen Negative 12/17/24 21:13 12/17/24 21:13 Orders (Tests/Meds): ED MEDICATIONS Generic Name Dose Route Start Last Admin Trade Name Freq PRN Reason Stop Dose Admin Azithromycin 500 mg/ Sodium 250 mls @ 250 mls/hr 12/17/24 23:30 12/17/24 23:39 Chloride IV 12/27/24 23:29 250 mls/hr Q24H NATALIE Administration Sodium Chloride 1,000 mls @ 999 mls/hr 12/17/24 23:30 12/17/24 23:40 Sod Chlor 0.9% 1000ml Bag IV 12/18/24 00:30 999 mls/hr .Q1H1M ONE Administration Discontinued Medications Generic Name Dose Route Start Last Admin Trade Name Freq PRN Reason Stop Dose Admin Acetaminophen 1,000 mg 12/17/24 22:05 12/17/24 22:11 Acetaminophen 500mg Tab PO 12/17/24 22:06 1,000 mg ONCE ONE Administration Belladonna Alkaloids 60 ml 12/17/24 22:05 12/17/24 22:12 Belladonna Alkaloids 60 Ml Ml PO 12/17/24 22:06 60 ml ONCE ONE Administration Ketorolac Tromethamine 30 mg 12/17/24 22:37 12/17/24 22:44 Ketorolac 30mg/Ml Vial IV 12/17/24 22:38 30 mg ONCE ONE Administration Ondansetron HCl 4 mg 12/17/24 21:29 12/17/24 21:44 Ondansetron 4mg/2ml Vial IV 12/17/24 21:30 4 mg ONCE ONE Administration ORDERS Category Date Time Status CT head/brain wo con Stat Cat Scan 12/17/24 21:26 Completed XR chest portable Stat Exams 12/17/24 21:26 Completed Ammonia Stat Lab 12/17/24 21:43 Completed Complete Blood Count Auto Diff Stat Lab 12/17/24 21:13 Completed Comprehensive Metabolic Panel Stat Lab 12/17/24 21:13 Completed Drug Screen,Urine Stat Lab 12/17/24 22:24 Completed Ethanol [Ethyl Alcohol] Stat Lab 12/17/24 21:13 Completed Lipase Stat Lab 12/17/24 21:13 Completed Magnesium Stat Lab 12/17/24 21:13 Completed NT Pro Brain Natriuretic Pep. Stat Lab 12/17/24 21:13 Completed Troponin I Stat Lab 12/17/24 21:13 Completed Urinalysis and Microscopic Stat Lab 12/17/24 22:24 Completed Urine Culture Stat Micro 12/17/24 22:24 Received Medical Decision Narrative: Patient is a 54-year-old female with a past medical history of cirrhosis who presented to the emergency department with generalized weakness. On arrival, patient was hemodynamically stable with unremarkable vital signs. Differential includes but not limited to: Intracranial pathology including hemorrhage versus ischemia, hyperammonemia, electrolyte abnormalities, dehydration, UTI, aspiratory illness, pneumonia, amongst others. Patient's labs were reviewed and interpreted by myself, CBC had no leukocytosis, hemoglobin was stable. CMP was unremarkable with creatinine at her baseline of 1.1. Glucose normal. BNP 252. Ammonia 100 but appears to be 100 on multiple previous checks. Patient had a grossly contaminated urine with 20-50 squamous cells and no white blood cells. Patient not complaining of urinary symptoms. Patient's urine drug screen was negative. CT scan of the head was reviewed and interpreted by myself and showed no acute pathology. Chest x-ray showed no acute focal consolidation, pneumothorax, pleural effusion or other acute cardio process. Chest x-ray did show possible atypical pneumonia and in the setting of respiratory cough I felt that it is appropriate to treat with azithromycin in the emergency department. Patient was given IV fluids. Patient was attempted to ambulate twice in the emergency department and patient would fall backwards in the bed and not attempt to walk. I suspect that this is likely volitional however will re-attempt given that patient typically is able to ambulate at baseline. [facility] does have a cognitive delay [facility] any assistance with help at home. Critical Care Critical Care Time Critical Care Time: No
[2024-12-18 00:32] VITALS: BP 74/55; PULSE 81; O2SAT 95
[2024-12-18 00:36] VITALS: BP 110/46; PULSE 73; O2SAT 95
--- NOTE | 2024-12-18 00:57 | PC.NURSE ---
Call made to [facility] to inform of patient discharge. No answer. Phone call then made to [facility] to inform of patient dc and in need of transport home. Employee informed this nurse that she would make [facility] aware of information.
--- NOTE | 2024-12-18 01:06 | PC.NURSE ---
Patient ambulated around nurses with standby assist. Patient tolerated ambulation and does not have any complaints at this time. Patient does not appear unable or SOA during ambulation.
--- NOTE | 2024-12-18 01:54 | PC.NURSE ---
Return phone call made to [facility] to request ETA on patient transportation. Spoke with employee at [facility] who states that she was unable to get ahold of [facility]. [facility] ER reached out to dispatch who states that they will dispatch law enforcement to [facility] for welfare check. Patient currently resting with eye closed, respirations even and unlabored. No needs at this time.
--- NOTE | 2024-12-18 02:00 | PC.NURSE ---
Called dispatch to see if an officer could go knock on the door at [facility]. Dispatch informed me that they would.
--- NOTE | 2024-12-18 02:15 | PC.NURSE ---
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 Workers told [employer] that they weren't allowed
--- NOTE | 2024-12-18 02:39 | PC.NURSE ---
Officer Suzy is transporting pt back to [facility] as a professional courtesy to us.
[2024-12-18 02:48] VITALS: BP 108/78; PULSE 62; RESP 14; TEMP 37.2; O2SAT 100
--- OUTSIDE RECORDS SUMMARY | 2024-12-24 20:00 | XMS_ITS | Clinical Summary ---
Author Organization [facility] ([facility] Address [address] [place] [address] Phone Care Team Providers Care Water Resource Specialist Name Role Phone MILLIE VELASCO APRN Unavailable Unavailable SHYAM OT, DEREK Unavailable Unavailable VALARIE PT, KAI Unavailable Unavailable Payers Payer Name Policy Type Policy Number Effective Date Expira tion Date ANTHEM BCBS FFS [id number] MODERATED OON PAYOR FFS [id number] Problems Condition Name Condition Details Condition Category Status Onset Date Resolution Date Last Treatment Date Treating Clinician Comments HYPERTENSIVE HEART DISEASE WITH HEART FAILURE Active 10-27 00:00: 00 UNSPECIFIED DIASTOLIC (CONGESTIVE) HEART FAILURE Active 10-27 00:00: 00 UNSPECIFIED CIRRHOSIS OF LIVER Active 10-27 00:00: 00 HEPATIC ENCEPHALOPAT HY Active 10-27 00:00: 00 PORTAL HYPERTENSION Active 10-27 00:00: 00 NONALCOHOLIC STEATOHEPATI TIS (BOWDEN) Active 10-27 00:00: 00 MORBID (SEVERE) OBESITY DUE TO EXCESS CALORIES Active 10-27 00:00: 00 BODY MASS INDEX [BMI]40.0-44 .9, ADULT Active 10-27 00:00: 00 THROMBOCYTOP ENIA, UNSPECIFIED Active 10-27 00:00: 00 MIGRAINE, UNSP, NOT INTRACTABLE, WITHOUT STATUS MIGRAINOSUS Active 10-27 00:00: 00 IRON DEFICIENCY ANEMIA, UNSPECIFIED Active 10-27 00:00: 00 HYPOTHYROIDI SM, UNSPECIFIED Active 10-27 00:00: 00 ANXIETY DISORDER, UNSPECIFIED Active 10-27 00:00: 00 DEPRESSION, UNSPECIFIED Active 10-27 00:00: 00 OBSTRUCTIVE SLEEP APNEA (ADULT) (PEDIATRIC) Active 10-27 00:00: 00 LOCALIZED SWELLING, MASS AND LUMP, LEFT UPPER LIMB Active 10-27 00:00: 00 OTHER LESIONS OF ORAL MUCOSA Active 10-27 00:00: 00 VITAMIN D DEFICIENCY, UNSPECIFIED Active 10-27 00:00: 00 PERSONAL HISTORY OF BENIGN NEOPLASM OF THE BRAIN Active 10-27 00:00: 00 PERSONAL HISTORY OF PEPTIC ULCER DISEASE Active 10-27 00:00: 00 PERSONAL HISTORY OF LEUKEMIA Active 10-27 00:00: 00 PRSNL HX OF TIA (TIA), AND CEREB INFRC W/O RESID DEFICITS Active 10-27 00:00: 00 OTHER WEALTH MANAGEMENT ADVISOR (CURRENT) DRUG THERAPY Active 10-27 00:00: 00 DETENTION (CURRENT) USE OF NON-STEROIDA L NON-INFLAM (NSAID) Active 10-27 00:00: 00 Problems related to health literacy Active 10-27 00:00: 00 HISTORY OF FALLING Active 10-27 00:00: 00 Allergies, Adverse Reactions, Alerts Allergy Name Allergy Type Status Severity Reaction(s) Onset Date Inactive Date Treating Clinician Comments NKA Propensity to adverse reactions Active 2024-10 20:30:2 2 Medications Ordered Medication Name Filled Medication Name Start Date Stop Date Current Medication? Ordering Clinician Indication Dosage Frequency Signature (SIG) Comments Components Allergy Relief (fluticason e) 50 mcg/actuati on nasal spray,suspe nsion 10-28 00:00: 00 Yes [id number] ALLERGIES 2 spray DAILY 2 spray DAILY (route: nasal) Med Classific ation: Respirato ry Therapy Agents amitriptyli ne 50 mg tablet 10-28 00:00: 00 Yes [id number] DEPRESSION 1 tablet BEDTIME 1 tablet BEDTIME (route: oral) Med Classific ation: Central Nervous System Agents amlodipine 5 mg tablet 10-28 00:00: 00 Yes [id number] HIGH BLOOD PRESSURE 1 tablet BEDTIME 1 tablet BEDTIME (route: oral) Med Classific ation: Cardiovas cular Therapy Agents cetirizine 10 mg tablet 09-28 00:00: 00 Yes [id number] ALLERGIES 1 tablet DAILY 1 tablet DAILY (route: oral) Med Classific ation: Respirato ry Therapy Agents Coreg 3.125 mg tablet 10-28 00:00: 00 Yes [id number] HEART FAILURE 1 tablet 2 TIMES DAILY 1 tablet 2 TIMES DAILY (route: oral) Med Classific ation: Cardiovas cular Therapy Agents donepezil 5 mg tablet 10-28 00:00: 00 Yes [id number] MEMORY 1 tablet BEDTIME 1 tablet BEDTIME (route: oral) Med Classific ation: Cognitive Disorder Therapy duloxetine 60 mg capsule,del ayed release 09-28 00:00: 00 Yes [id number] DEPRESSION 1 capsule DAILY 1 capsule DAILY (route: oral) Med Classific ation: Central Nervous System Agents ferrous sulfate 324 mg (65 mg iron) tablet,travis yed release 09-28 00:00: 00 Yes [id number] SUPPLEMENT 1 tablet EVERY OTHER DAY 1 tablet EVERY OTHER DAY (route: oral) Med Classific ation: Electroly te Balance-N utritiona l Products lactulose 20 gram/30 mL oral solution 10-28 00:00: 00 Yes [id number] CONSTIPATIO N 20 g DAILY 20 g DAILY (route: oral) Med Classific ation: Gastroint estinal Therapy Agents levothyroxi ne 88 mcg tablet 10-28 00:00: 00 Yes [id number] THYROID 1 tablet DAILY 1 tablet DAILY (route: oral) Med Classific ation: Endocrine melatonin 5 mg tablet 10-28 00:00: 00 Yes [id number] SLEEP AID 1 tablet DAILY 1 tablet DAILY (route: oral) Med Classific ation: Central Nervous System Agents meloxicam 15 mg tablet 10-28 00:00: 00 Yes [id number] INFLAMMATIO N 1 tablet DAILY 1 tablet DAILY (route: oral) Med Classific ation: Analgesic , Anti-infl ammatory or Antipyret ic Miralax 17 gram oral powder packet 10-28 00:00: 00 Yes [id number] CONSTIPATIO N 1 packet DAILY 1 packet DAILY (route: oral) Med Classific ation: Gastroint estinal Therapy Agents oxcarbazepi ne 150 mg tablet 10-28 00:00: 00 Yes [id number] SEIZURES 1 tablet 2 TIMES DAILY 1 tablet 2 TIMES DAILY (route: oral) Med Classific ation: Central Nervous System Agents pantoprazol e 40 mg tablet,travis yed release 10-28 00:00: 00 Yes [id number] REFLUX 1 tablet DAILY 1 tablet DAILY (route: oral) Med Classific ation: Gastroint estinal Therapy Agents spironolact one 50 mg tablet 10-28 00:00: 00 Yes [id number] BLOOD PRESSURE 1 tablet DAILY 1 tablet DAILY (route: oral) Med Classific ation: Cardiovas cular Therapy Agents Vitamin B-2 50 mg tablet 10-28 00:00: 00 Yes [id number] SUPPLEMENT 1 tablet DAILY 1 tablet DAILY (route: oral) Med Classific ation: Electroly te Balance-N utritiona l Products Vitamin D2 1,250 mcg (50,000 unit) capsule 10-28 00:00: 00 Yes [id number] SUPPLEMENT 1 capsule DAILY 1 capsule DAILY (route: oral) Med Classific ation: Electroly te Balance-N utritiona l Products Xifaxan 550 mg tablet 10-28 00:00: 00 Yes [id number] IBS 1 tablet 3 TIMES DAILY 1 tablet 3 TIMES DAILY (route: oral) Med Classific ation: Anti-Infe ctive Agents acetaminoph en 325 mg tablet 10-28 00:00: 00 Yes [id number] PAIN 1 tablet NEEDED 1 tablet NEEDED (route: oral) Med Classific ation: Analgesic , Anti-infl ammatory or Antipyret ic albuterol sulfate HFA 90 mcg/actuati on aerosol inhaler 10-28 00:00: 00 Yes [id number] WHEEZING 1 puff NEEDED 1 puff NEEDED (route: inhalation ) Med Classific ation: Respirato ry Therapy Agents cyclobenzap rine 5 mg tablet 10-28 00:00: 00 Yes [id number] MUSCLE SPASMS 1 tablet NEEDED 1 tablet NEEDED (route: oral) Med Classific ation: Locomotor System ondansetron 4 mg disintegrat ing tablet 10-28 00:00: 00 Yes [id number] NAUSEA 1 tablet NEEDED 1 tablet NEEDED (route: oral) Med Classific ation: Gastroint estinal Therapy Agents Promethegan 25 mg rectal suppository 10-28 00:00: 00 Yes [id number] NAUSEA/VOMI TTING 1 supposi tory, rectal NEEDED 1 suppositor y, rectal NEEDED (route: rectal) Med Classific ation: Gastroint estinal Therapy Agents Vital Signs Vital Name Observation Time Observation Value Commen ts Temperature 2024-12-02 14:00:00.000 98.2 [degF] Temperature 2024-12-01 11:20:00.000 97.6 [degF] Temperature 2024-11-25 13:53:00.000 97.6 [degF] Temperature 2024-11-18 14:32:00.000 98 [degF] Temperature 2024-11-17 12:55:00.000 98.1 [degF] Temperature 2024-11-12 12:56:00.000 97.9 [degF] Temperature 2024-11-04 14:48:00.000 97.6 [degF] Temperature 2024-10-27 13:06:00.000 97.9 [degF] BMI (%) 2024-10-27 12:58:53.000 39 kg/m2 Height 2024-10-27 12:58:44.000 65 [in_us] Pulse 2024-12-02 14:00:00.000 64 /min Pulse 2024-12-01 11:20:00.000 66 /min Pulse 2024-11-25 13:53:00.000 80 /min Pulse 2024-11-18 14:32:00.000 68 /min Pulse 2024-11-17 12:55:00.000 76 /min Pulse 2024-11-12 12:56:00.000 65 /min Pulse 2024-11-04 14:48:00.000 66 /min Pulse 2024-10-27 13:06:00.000 61 /min O2 Saturation (%) 2024-12-02 14:00:00.000 95 % O2 Saturation (%) 2024-12-01 11:20:00.000 95 % O2 Saturation (%) 2024-11-25 13:53:00.000 95 % O2 Saturation (%) 2024-11-18 14:32:00.000 98 % O2 Saturation (%) 2024-11-17 12:55:00.000 98 % O2 Saturation (%) 2024-11-12 12:56:00.000 97 % O2 Saturation (%) 2024-11-04 14:48:00.000 95 % O2 Saturation (%) 2024-10-27 13:06:00.000 94 % Respirations 2024-12-02 14:00:00.000 18 /min Respirations 2024-12-01 11:20:00.000 18 /min Respirations 2024-11-25 13:53:00.000 18 /min Respirations 2024-11-18 14:32:00.000 18 /min Respirations 2024-11-17 12:55:00.000 18 /min Respirations 2024-11-12 12:56:00.000 18 /min Respirations 2024-11-04 14:48:00.000 18 /min Respirations 2024-10-27 13:06:00.000 18 /min Weight (lbs) 2024-10-27 12:58:53.000 235 [lb_av] Systolic Blood Pressure 2024-12-02 14:00:00.000 124 mm [Hg] Systolic Blood Pressure 2024-12-01 11:20:00.000 117 mm [Hg] Systolic Blood Pressure 2024-11-25 13:53:00.000 128 mm [Hg] Systolic Blood Pressure 2024-11-18 14:32:00.000 122 mm [Hg] Systolic Blood Pressure 2024-11-17 12:55:00.000 117 mm [Hg] Systolic Blood Pressure 2024-11-12 12:56:00.000 106 mm [Hg] Systolic Blood Pressure 2024-11-04 14:48:00.000 128 mm [Hg] Systolic Blood Pressure 2024-10-27 13:06:00.000 124 mm [Hg] Diastolic Blood Pressure 2024-12-02 14:00:00.000 68 mm [Hg] Diastolic Blood Pressure 2024-12-01 11:20:00.000 75 mm [Hg] Diastolic Blood Pressure 2024-11-25 13:53:00.000 78 mm [Hg] Diastolic Blood Pressure 2024-11-18 14:32:00.000 74 mm [Hg] Diastolic Blood Pressure 2024-11-17 12:55:00.000 70 mm [Hg] Diastolic Blood Pressure 2024-11-12 12:56:00.000 65 mm [Hg] Diastolic Blood Pressure 2024-11-04 14:48:00.000 72 mm [Hg] Diastolic Blood Pressure 2024-10-27 13:06:00.000 80 mm [Hg] Plan of Care Planned Activity Planned Date Details Comments Future Scheduled Test PHYSICAL T HERAPIST TO EVALUATE/ASSESS AND DEVELOP PHYSICAL THERAPY PLAN OF CARE TO BE SIGNED BY THE PHYSICIAN. TEACH AND MONITOR PATIENT/CAREGIVER ABILITY TO SAFELY ADMINISTER MEDICATIONS. PHONE TOUCHPOINTS CAN BE PERFORMED NEEDED TO SUPPLEMENT THE PLAN OF CARE. [code = PHYSICAL THERAPIST TO EVALUATE/ASSESS AND DEVELOP PHYSICAL THERAPY PLAN OF CARE TO BE SIGNED BY THE PHYSICIAN. TEACH AND MONITOR PATIENT/CAREGIVER ABILITY TO SAFELY ADMINISTER MEDICATIONS. PHONE TOUCHPOINTS CAN BE PERFORMED NEEDED TO SUPPLEMENT THE PLAN OF CARE.] Future Scheduled Test PSYCHOSOCI AL / COGNITIVE ASSESSMENT INDICATES NO NEED FOR SOCIAL, FINANCIAL, OR TRANSPORTATION SUPPORT OR FOR ADDITIONAL CARE PROVIDERS/DISCIPLINES OR REFERRALS TO OUTSIDE ENTITIES. [code = PSYCHOSOCIAL / COGNITIVE ASSESSMENT INDICATES NO NEED FOR SOCIAL, FINANCIAL, OR TRANSPORTATION SUPPORT OR FOR ADDITIONAL CARE PROVIDERS/DISCIPLINES OR REFERRALS TO OUTSIDE ENTITIES.] Future Scheduled Test CLINICIAN TO EDUCATE PATIENT / CAREGIVER IN FALL PREVENTION AND PROVIDE INTERVENTIONS TO REDUCE FALL RISK AND ENHANCE HOME SAFETY [code = CLINICIAN TO EDUCATE PATIENT / CAREGIVER IN FALL PREVENTION AND PROVIDE INTERVENTIONS TO REDUCE FALL RISK AND ENHANCE HOME SAFETY] Future Scheduled Test PATIENT/CA REGIVER WILL BE KNOWLEDGEABLE OF DISCHARGE PLANS AND WILL DEMONSTRATE/PROVIDE EDUCATION AND RESOURCES NEEDED TO MAINTAIN HEALTH. [code = PATIENT/CAREGIVER WILL BE KNOWLEDGEABLE OF DISCHARGE PLANS AND WILL DEMONSTRATE/PROVIDE EDUCATION AND RESOURCES NEEDED TO MAINTAIN HEALTH.] Future Scheduled Test AGENCY BABAK L DISCHARGE PATIENT TO DR. MILLIE VELASCO PHYSICIAN/HEALTH CARE PROVIDER. MAY ACCEPT ORDERS FROM THE FOLLOWING PHYSICIAN(S): [code = AGENCY WILL DISCHARGE PATIENT TO DR. MILLIE VELASCO PHYSICIAN/HEALTH CARE PROVIDER. MAY ACCEPT ORDERS FROM THE FOLLOWING PHYSICIAN(S): ] Future Scheduled Test CLINICIAN TO ASSESS CURRENT DEGREE OF DEPRESSION AND EDUCATE PATIENT/CAREGIVER ON PATHOPHYSIOLOGY, INTERVENTIONS TO ENHANCE PATIENT WELL BEING, AND SIGNS AND SYMPTOMS TO REPORT. [code = CLINICIAN TO ASSESS CURRENT DEGREE OF DEPRESSION AND EDUCATE PATIENT/CAREGIVER ON PATHOPHYSIOLOGY, INTERVENTIONS TO ENHANCE PATIENT WELL BEING, AND SIGNS AND SYMPTOMS TO REPORT.] Future Scheduled Test PHYSICAL T HERAPY TO ESTABLISH/UPGRADE HOME EXERCISE PROGRAM AND PROVIDE THERAPEUTIC EXERCISES AND/OR MANUAL THERAPY TECHNIQUES DESIGNED TO RESTORE FUNCTIONAL STRENGTH AND ROM. [code = PHYSICAL THERAPY TO ESTABLISH/UPGRADE HOME EXERCISE PROGRAM AND PROVIDE THERAPEUTIC EXERCISES AND/OR MANUAL THERAPY TECHNIQUES DESIGNED TO RESTORE FUNCTIONAL STRENGTH AND ROM.] Future Scheduled Test PHYSICAL T HERAPY TO PROVIDE BALANCE TRAINING TO REDUCE FALL RISK DURING FUNCTIONAL ACTIVITIES. [code = PHYSICAL THERAPY TO PROVIDE BALANCE TRAINING TO REDUCE FALL RISK DURING FUNCTIONAL ACTIVITIES.] Future Scheduled Test PHYSICAL T HERAPY TO PROVIDE TECHNIQUES DESIGNED TO IMPROVE BED MOBILITY. [code = PHYSICAL THERAPY TO PROVIDE TECHNIQUES DESIGNED TO IMPROVE BED MOBILITY.] Future Scheduled Test PHYSICAL T HERAPY TO INSTRUCT IN SAFE TRANSFERS WITH APPROPRIATE BODY MECHANICS AND EQUIPMENT. [code = PHYSICAL THERAPY TO INSTRUCT IN SAFE TRANSFERS WITH APPROPRIATE BODY MECHANICS AND EQUIPMENT.] Future Scheduled Test PHYSICAL T HERAPY TO EVALUATE GAIT AND PROVIDE GAIT TRAINING USING APPROPRIATE ASSISTIVE DEVICE NEEDED TO ENSURE PATIENT SAFETY. [code = PHYSICAL THERAPY TO EVALUATE GAIT AND PROVIDE GAIT TRAINING USING APPROPRIATE ASSISTIVE DEVICE NEEDED TO ENSURE PATIENT SAFETY.] Future Scheduled Test PHYSICAL T HERAPIST TO PROVIDE INTERVENTIONS AND/OR EDUCATION REGARDING PAIN CONTROL INCLUDING MEDICATION REVIEW AND PHARMACOLOGICAL AND NON-PHARMACOLOGICAL METHODS [code = PHYSICAL THERAPIST TO PROVIDE INTERVENTIONS AND/OR EDUCATION REGARDING PAIN CONTROL INCLUDING MEDICATION REVIEW AND PHARMACOLOGICAL AND NON-PHARMACOLOGICAL METHODS] Future Scheduled Test PHYSICAL T HERAPIST TO PROVIDE SKILLED TEACHING TO PATIENT/CAREGIVER OF HYPERTENSION TO INCLUDE MEDICATION MANAGEMENT, SELF-ASSESSMENT, LOW SODIUM DIET, AND TRACKING OF BLOOD PRESSURE RESULTS. [code = PHYSICAL THERAPIST TO PROVIDE SKILLED TEACHING TO PATIENT/CAREGIVER OF HYPERTENSION TO INCLUDE MEDICATION MANAGEMENT, SELF-ASSESSMENT, LOW SODIUM DIET, AND TRACKING OF BLOOD PRESSURE RESULTS.] Future Scheduled Test CLINICIAN TO OBSERVE AND ASSESS FOR SIGNS OF ANXIETY AND INSTRUCT PATIENT/CAREGIVERS IN HEALTHY BEHAVIORS AND MANAGEMENT STRATEGIES [code = CLINICIAN TO OBSERVE AND ASSESS FOR SIGNS OF ANXIETY AND INSTRUCT PATIENT/CAREGIVERS IN HEALTHY BEHAVIORS AND MANAGEMENT STRATEGIES] Future Scheduled Test OCCUPATION AL THERAPIST TO EVALUATE PATIENT FOR OT SERVICES AND DEVELOP PLAN OF CARE TO BE SIGNED BY THE PHYSICIAN. TEACH AND MONITOR PATIENT/CAREGIVER ABILITY TO SAFELY ADMINISTER MEDICATIONS. PHONE TOUCHPOINTS CAN BE PERFORMED NEEDED TO SUPPLEMENT THE PLAN OF CARE. [code = OCCUPATIONAL THERAPIST TO EVALUATE PATIENT FOR OT SERVICES AND DEVELOP PLAN OF CARE TO BE SIGNED BY THE PHYSICIAN. TEACH AND MONITOR PATIENT/CAREGIVER ABILITY TO SAFELY ADMINISTER MEDICATIONS. PHONE TOUCHPOINTS CAN BE PERFORMED NEEDED TO SUPPLEMENT THE PLAN OF CARE.] Future Scheduled Test PSYCHOSOCI AL / COGNITIVE ASSESSMENT INDICATES THE FOLLOWING NEEDS: (SOCIAL, FINANCIAL, TRANSPORTATION, ADDITIONAL CARE PROVIDERS/ DISCIPLINES, REFERRALS TO OUTSIDE ENTITIES, ETC.). AGENCY WILL DISCHARGE PATIENT TO PHYSICIAN/HEALTH CARE PROVIDER. MAY ACCEPT ORDERS FROM THE FOLLOWING PHYSICIAN(S): OT REMOTE VIDEO VISIT(S) TO ASSESS, EVALUATE AND PROVIDE EDUCATION/TRAINING FOR HOME SAFETY, ADLS, IADLS, SAFE MEDICATION ADMINISTRATION, DISEASE MANAGEMENT, AND SIGNS/SYMPTOMS TO REPORT TO AGENCY, PHYSICIAN, OR 911. OCCUPATIONAL THERAPIST TO EVALUATE PATIENT FOR OT SERVICES AND DEVELOP PLAN OF CARE TO BE SIGNED BY THE PHYSICIAN. TEACH AND MONITOR PATIENT/CAREGIVER ABILITY TO SAFELY ADMINISTER MEDICATIONS. PHONE TOUCHPOINTS CAN BE PERFORMED NEEDED TO SUPPLEMENT THE PLAN OF CARE. OCCUPATIONAL THERAPY TO ESTABLISH/UPGRADE HOME EXERCISE PROGRAM AND PROVIDE THERAPEUTIC EXERCISES AND/OR SOFT TISSUE/JOINT MOBILIZATION DESIGNED TO RESTORE FUNCTIONAL STRENGTH AND ROM. OCCUPATIONAL THERAPY TO INSTRUCT IN SAFE TRANSFERS USING APPROPRIATE BODY MECHANICS AND EQUIPMENT. CLINICIAN TO EDUCATE PATIENT / CAREGIVER IN FALL PREVENTION AND PROVIDE INTERVENTIONS TO REDUCE FALL RISK AND ENHANCE HOME SAFETY OCCUPATIONAL THERAPIST TO PROVIDE PATIENT / CAREGIVER WITH ADL TRAINING TO INCREASE INDEPENDENCE. OCCUPATIONAL THERAPY TO PROVIDE INSTRUCTION IN ENERGY CONSERVATION TECHNIQUES DESIGNED TO MAXIMIZE PATIENT'S TOLERANCE DURING ADL'S/IADL'S. PATIENT/CAREGIVER WILL BE KNOWLEDGEABLE OF DISCHARGE PLANS AND WILL DEMONSTRATE/PROVIDE EDUCATION AND RESOURCES NEEDED TO MAINTAIN HEALTH. [code = PSYCHOSOCIAL / COGNITIVE ASSESSMENT INDICATES THE FOLLOWING NEEDS: (SOCIAL, FINANCIAL, TRANSPORTATION, ADDITIONAL CARE PROVIDERS/ DISCIPLINES, REFERRALS TO OUTSIDE ENTITIES, ETC.). AGENCY WILL DISCHARGE PATIENT TO PHYSICIAN/HEALTH CARE PROVIDER. MAY ACCEPT ORDERS FROM THE FOLLOWING PHYSICIAN(S): OT REMOTE VIDEO VISIT(S) TO ASSESS, EVALUATE AND PROVIDE EDUCATION/TRAINING FOR HOME SAFETY, ADLS, IADLS, SAFE MEDICATION ADMINISTRATION, DISEASE MANAGEMENT, AND SIGNS/SYMPTOMS TO REPORT TO AGENCY, PHYSICIAN, OR 911. OCCUPATIONAL THERAPIST TO EVALUATE PATIENT FOR OT SERVICES AND DEVELOP PLAN OF CARE TO BE SIGNED BY THE PHYSICIAN. TEACH AND MONITOR PATIENT/CAREGIVER ABILITY TO SAFELY ADMINISTER MEDICATIONS. PHONE TOUCHPOINTS CAN BE PERFORMED NEEDED TO SUPPLEMENT THE PLAN OF CARE. OCCUPATIONAL THERAPY TO ESTABLISH/UPGRADE HOME EXERCISE PROGRAM AND PROVIDE THERAPEUTIC EXERCISES AND/OR SOFT TISSUE/JOINT MOBILIZATION DESIGNED TO RESTORE FUNCTIONAL STRENGTH AND ROM. OCCUPATIONAL THERAPY TO INSTRUCT IN SAFE TRANSFERS USING APPROPRIATE BODY MECHANICS AND EQUIPMENT. CLINICIAN TO EDUCATE PATIENT / CAREGIVER IN FALL PREVENTION AND PROVIDE INTERVENTIONS TO REDUCE FALL RISK AND ENHANCE HOME SAFETY OCCUPATIONAL THERAPIST TO PROVIDE PATIENT / CAREGIVER WITH ADL TRAINING TO INCREASE INDEPENDENCE. OCCUPATIONAL THERAPY TO PROVIDE INSTRUCTION IN ENERGY CONSERVATION TECHNIQUES DESIGNED TO MAXIMIZE PATIENT'S TOLERANCE DURING ADL'S/IADL'S. PATIENT/CAREGIVER WILL BE KNOWLEDGEABLE OF DISCHARGE PLANS AND WILL DEMONSTRATE/PROVIDE EDUCATION AND RESOURCES NEEDED TO MAINTAIN HEALTH.] Progress Notes * <paragraph>[Visit Date: 2024-12-12 by KAI SHEPPARD PT]:</paragraph><paragraph>LYING IN BED UPON ARRIVAL, AGREEABLE TO THERAPY. NO PAIN, NO FALLS. STATES SHE HAS BEEN HAVING A LOT OF NOSE BLEEDS. VSS. PATIENT AMBULATES AND TRANSFERS WITH CONTACT GUARD AND NO AD. CONTINUES TO DEMONSTRATE DEFICITS AND ENDURANCE AND STRENGTH RELATED TO ENCEPHALOPATHY. MAKING PROGRESS TOWARDS GOALS.ANTICIPATE DC NEXT SESSION. RECOMMEND CONTINUED SKILLED PHYSICAL THERAPY TO ADDRESS DEFICITS AND PROMOTE FUNCTIONAL INDEPENDENCE. PATIENT IS HOMEBOUND DUE TO DEPENDENCE ON CAREGIVERS AND ASSISTED DEVICE IN ORDER TO SAFELY ANSWER AND EXIT THE HOME. THIS IS A HIGH FALLS RISK ACTIVITY THAT IS PHYSICALLY TAXING TO THE PATIENT.</paragraph> Encounters Start Date/Time End Date/Time Encounter Type Admission Type Attending Clinicians Care Facility Care Department Encounter ID [id number] 00:00:00 2024-12-25 00:00:00 Unknown NEW ADMISSION DEREK HOWE [facility] [id number]
--- OUTSIDE RECORDS SUMMARY | 2024-12-24 20:00 | XMS_ITS | Clinical Summary ---
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 Name Role Phone MILLIE VELASCO APRN Unavailable Unavailable SHYAM OT, DEREK Unavailable Unavailable VALARIE PT, KAI Unavailable Unavailable Payers Payer Name Policy Type Policy Number Effective Date Expira tion Date ANTHEM BCBS FFS [id number] MODERATED OON PAYOR FFS [id number] Problems Condition Name Condition Details Condition Category [...] RESID DEFICITS Active 10-27 00:00: 00 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) DRUG THERAPY Active 10-27 00:00: 00 CORRECTION (CURRENT) USE OF NON-STEROIDA L NON-INFLAM (NSAID) [...] nasal spray,suspe nsion 10-28 00:00: 00 Yes [id number] ALLERGIES 2 spray DAILY 2 spray DAILY (route: nasal) Med Classific ation: Respirato ry Therapy Agents amitriptyli ne 50 mg tablet 10-28 00:00: 00 Yes [id number] DEPRESSION 1 tablet BEDTIME 1 tablet BEDTIME (route: oral) Med Classific ation: Central Nervous System Agents amlodipine 5 mg tablet 10-28 00:00: 00 Yes [id number] HIGH BLOOD PRESSURE 1 tablet BEDTIME 1 tablet BEDTIME (route: oral) Med Classific ation: Cardiovas cular Therapy Agents cetirizine 10 mg tablet 09-28 00:00: 00 Yes [id number] ALLERGIES 1 tablet DAILY 1 tablet DAILY (route: oral) Med Classific ation: Respirato ry Therapy Agents Coreg 3.125 mg tablet 10-28 00:00: 00 Yes [id number] HEART FAILURE 1 tablet 2 TIMES DAILY 1 tablet 2 TIMES DAILY (route: oral) Med Classific ation: Cardiovas cular Therapy Agents donepezil 5 mg tablet 10-28 00:00: 00 Yes [id number] MEMORY 1 tablet BEDTIME 1 tablet BEDTIME (route: oral) Med Classific ation: Cognitive Disorder Therapy duloxetine 60 mg capsule,del ayed release 09-28 00:00: 00 Yes [id number] DEPRESSION 1 capsule DAILY 1 capsule DAILY (route: oral) Med Classific ation: Central Nervous System Agents ferrous sulfate 324 mg (65 mg iron) tablet,travis yed release 09-28 00:00: 00 Yes [id number] SUPPLEMENT 1 tablet EVERY OTHER DAY 1 tablet EVERY OTHER DAY (route: oral) Med Classific ation: Electroly te Balance-N utritiona l Products lactulose 20 gram/30 mL oral solution 10-28 00:00: 00 Yes [id number] CONSTIPATIO N 20 g DAILY 20 g DAILY (route: oral) Med Classific ation: Gastroint estinal Therapy Agents levothyroxi ne 88 mcg tablet 10-28 00:00: 00 Yes [id number] THYROID 1 tablet DAILY 1 tablet DAILY (route: oral) Med Classific ation: Endocrine melatonin 5 mg tablet 10-28 00:00: 00 Yes [id number] SLEEP AID 1 tablet DAILY 1 tablet DAILY (route: oral) Med Classific ation: Central Nervous System Agents meloxicam 15 mg tablet 10-28 00:00: 00 Yes [id number] INFLAMMATIO N 1 tablet DAILY 1 tablet DAILY (route: oral) Med Classific ation: Analgesic , Anti-infl ammatory or Antipyret ic Miralax 17 gram oral powder packet 10-28 00:00: 00 Yes [id number] CONSTIPATIO N 1 packet DAILY 1 packet DAILY (route: oral) Med Classific ation: Gastroint estinal Therapy Agents oxcarbazepi ne 150 mg tablet 10-28 00:00: 00 Yes [id number] SEIZURES 1 tablet 2 TIMES DAILY 1 tablet 2 TIMES DAILY (route: oral) Med Classific ation: Central Nervous System Agents pantoprazol e 40 mg tablet,travis yed release 10-28 00:00: 00 Yes [id number] REFLUX 1 tablet DAILY 1 tablet DAILY (route: oral) Med Classific ation: Gastroint estinal Therapy Agents spironolact one 50 mg tablet 10-28 00:00: 00 Yes [id number] BLOOD PRESSURE 1 tablet DAILY 1 tablet DAILY (route: oral) Med Classific ation: Cardiovas cular Therapy Agents Vitamin B-2 50 mg tablet 10-28 00:00: 00 Yes [id number] SUPPLEMENT 1 tablet DAILY 1 tablet DAILY (route: oral) Med Classific ation: Electroly te Balance-N utritiona l Products Vitamin D2 1,250 mcg (50,000 unit) capsule 10-28 00:00: 00 Yes [id number] SUPPLEMENT 1 capsule DAILY 1 capsule DAILY (route: oral) Med Classific ation: Electroly te Balance-N utritiona l Products Xifaxan 550 mg tablet 10-28 00:00: 00 Yes [id number] IBS 1 tablet 3 TIMES DAILY 1 tablet 3 TIMES DAILY (route: oral) Med Classific ation: Anti-Infe ctive Agents acetaminoph en 325 mg tablet 10-28 00:00: 00 Yes [id number] PAIN 1 tablet NEEDED 1 tablet NEEDED (route: oral) Med Classific ation: Analgesic , Anti-infl ammatory or Antipyret ic albuterol sulfate HFA 90 mcg/actuati on aerosol inhaler 10-28 00:00: 00 Yes [id number] WHEEZING 1 puff NEEDED 1 puff NEEDED (route: inhalation ) Med Classific ation: Respirato ry Therapy Agents cyclobenzap rine 5 mg tablet 10-28 00:00: 00 Yes [id number] MUSCLE SPASMS 1 tablet NEEDED 1 tablet NEEDED (route: oral) Med Classific ation: Locomotor System ondansetron 4 mg disintegrat ing tablet 10-28 00:00: 00 Yes [id number] NAUSEA 1 tablet NEEDED 1 tablet NEEDED (route: oral) Med Classific ation: Gastroint estinal Therapy Agents Promethegan 25 mg rectal suppository 10-28 00:00: 00 Yes [id number] NAUSEA/VOMI TTING 1 supposi tory, rectal NEEDED [...] [facility] [id number]
== END 2024-12-18 02:52 | disposition home or self-care (01) ==
PROVIDERS: Physician Assistant; Emergency Provider Student in an Organized Health Care Education/Training Program
DX: J18.9 Pneumonia, unspecified organism (principal); E72.20 Disorder of urea cycle metabolism, unspecified; E80.6 Other disorders of bilirubin metabolism; R53.1 Weakness
CPT/HCPCS: 70450; 71045; 80053; 80307; 80320; 81001; 82140; 83690; 83735; 83880; 84484; 85025; 87086; 93005; 96365; 96366; 96375; 99285; J0456; J1885; J2405; J7030; J7050

== ENCOUNTER 2025-01-07 18:18 | Emergency (ER) | payer BC, OTHER, SELFPAY ==
--- OUTSIDE RECORDS SUMMARY | 2024-12-24 20:00 | XMS_ITS | Clinical Summary ---
Author Organization Unknown Care Team Providers Care Primer Supervisor Name Role Phone MILLIE VELASCO APRN Unavailable Unavailable SHYAM OT, DEREK Unavailable Unavailable VALARIE PT, KAI Unavailable Unavailable Payers Payer Name Policy Type Policy Number Effective Date Expira tion Date ANTHEM BCBS FFS [id number] MODERATED OON PAYOR FFS [id number] Problems Condition Name Condition Details Condition Category [...] RESID DEFICITS Active 10-27 00:00: 00 OTHER [facility] (CURRENT) DRUG THERAPY Active 10-27 00:00: 00 [facility] (CURRENT) USE OF NON-STEROIDA L NON-INFLAM (NSAID) [...] nasal spray,suspe nsion 10-28 00:00: 00 Yes [id number] ALLERGIES 2 spray DAILY 2 spray DAILY (route: nasal) Med Classific ation: Respirato ry Therapy Agents amitriptyli ne 50 mg tablet 10-28 00:00: 00 Yes [id number] DEPRESSION 1 tablet BEDTIME 1 tablet BEDTIME (route: oral) Med Classific ation: Central Nervous System Agents amlodipine 5 mg tablet 10-28 00:00: 00 Yes [id number] HIGH BLOOD PRESSURE 1 tablet BEDTIME 1 tablet BEDTIME (route: oral) Med Classific ation: Cardiovas cular Therapy Agents cetirizine 10 mg tablet 09-28 00:00: 00 Yes [id number] ALLERGIES 1 tablet DAILY 1 tablet DAILY (route: oral) Med Classific ation: Respirato ry Therapy Agents Coreg 3.125 mg tablet 10-28 00:00: 00 Yes [id number] HEART FAILURE 1 tablet 2 TIMES DAILY 1 tablet 2 TIMES DAILY (route: oral) Med Classific ation: Cardiovas cular Therapy Agents donepezil 5 mg tablet 10-28 00:00: 00 Yes [id number] MEMORY 1 tablet BEDTIME 1 tablet BEDTIME (route: oral) Med Classific ation: Cognitive Disorder Therapy duloxetine 60 mg capsule,del ayed release 09-28 00:00: 00 Yes [id number] DEPRESSION 1 capsule DAILY 1 capsule DAILY (route: oral) Med Classific ation: Central Nervous System Agents ferrous sulfate 324 mg (65 mg iron) tablet,travis yed release 09-28 00:00: 00 Yes [id number] SUPPLEMENT 1 tablet EVERY OTHER DAY 1 tablet EVERY OTHER DAY (route: oral) Med Classific ation: Electroly te Balance-N utritiona l Products lactulose 20 gram/30 mL oral solution 10-28 00:00: 00 Yes [id number] CONSTIPATIO N 20 g DAILY 20 g DAILY (route: oral) Med Classific ation: Gastroint estinal Therapy Agents levothyroxi ne 88 mcg tablet 10-28 00:00: 00 Yes [id number] THYROID 1 tablet DAILY 1 tablet DAILY (route: oral) Med Classific ation: Endocrine melatonin 5 mg tablet 10-28 00:00: 00 Yes [id number] SLEEP AID 1 tablet DAILY 1 tablet DAILY (route: oral) Med Classific ation: Central Nervous System Agents meloxicam 15 mg tablet 10-28 00:00: 00 Yes [id number] INFLAMMATIO N 1 tablet DAILY 1 tablet DAILY (route: oral) Med Classific ation: Analgesic , Anti-infl ammatory or Antipyret ic Miralax 17 gram oral powder packet 10-28 00:00: 00 Yes [id number] CONSTIPATIO N 1 packet DAILY 1 packet DAILY (route: oral) Med Classific ation: Gastroint estinal Therapy Agents oxcarbazepi ne 150 mg tablet 10-28 00:00: 00 Yes [id number] SEIZURES 1 tablet 2 TIMES DAILY 1 tablet 2 TIMES DAILY (route: oral) Med Classific ation: Central Nervous System Agents pantoprazol e 40 mg tablet,travis yed release 10-28 00:00: 00 Yes [id number] REFLUX 1 tablet DAILY 1 tablet DAILY (route: oral) Med Classific ation: Gastroint estinal Therapy Agents spironolact one 50 mg tablet 10-28 00:00: 00 Yes [id number] BLOOD PRESSURE 1 tablet DAILY 1 tablet DAILY (route: oral) Med Classific ation: Cardiovas cular Therapy Agents Vitamin B-2 50 mg tablet 10-28 00:00: 00 Yes [id number] SUPPLEMENT 1 tablet DAILY 1 tablet DAILY (route: oral) Med Classific ation: Electroly te Balance-N utritiona l Products Vitamin D2 1,250 mcg (50,000 unit) capsule 10-28 00:00: 00 Yes [id number] SUPPLEMENT 1 capsule DAILY 1 capsule DAILY (route: oral) Med Classific ation: Electroly te Balance-N utritiona l Products Xifaxan 550 mg tablet 10-28 00:00: 00 Yes [id number] IBS 1 tablet 3 TIMES DAILY 1 tablet 3 TIMES DAILY (route: oral) Med Classific ation: Anti-Infe ctive Agents acetaminoph en 325 mg tablet 10-28 00:00: 00 Yes [id number] PAIN 1 tablet NEEDED 1 tablet NEEDED (route: oral) Med Classific ation: Analgesic , Anti-infl ammatory or Antipyret ic albuterol sulfate HFA 90 mcg/actuati on aerosol inhaler 10-28 00:00: 00 Yes [id number] WHEEZING 1 puff NEEDED 1 puff NEEDED (route: inhalation ) Med Classific ation: Respirato ry Therapy Agents cyclobenzap rine 5 mg tablet 10-28 00:00: 00 Yes [id number] MUSCLE SPASMS 1 tablet NEEDED 1 tablet NEEDED (route: oral) Med Classific ation: Locomotor System ondansetron 4 mg disintegrat ing tablet 10-28 00:00: 00 Yes [id number] NAUSEA 1 tablet NEEDED 1 tablet NEEDED (route: oral) Med Classific ation: Gastroint estinal Therapy Agents Promethegan 25 mg rectal suppository 7 00:00: 00 Yes [id number] NAUSEA/VOMI TTING 1 supposi tory, rectal NEEDED 1 suppositor y, rectal NEEDED (route: rectal) Med Classific ation: Gastroint estinal Therapy Agents azithromyci n 250 mg tablet 12-18 00:00: 00 Yes [id number] ANTIBIOTIC 1 tablet DAILY 1 tablet DAILY (route: oral) Med Classific ation: Anti-Infe ctive Agents benzonatate 100 mg capsule 12-18 00:00: 00 Yes [id number] COUGH 1 capsule NEEDED 1 capsule NEEDED [...] End Date/Time Encounter Type Admission Type Attending [facility] Department Encounter ID Discharge Date Discharge Status Discharge Condition Discharge Reason Percent Goals Met 2024-10-27 00:00:00 2024-12-25 00:00:00 Outpatient NEW ADMISSION KAI [facility] [id number] 00:00:00 DISCHARGE TO HOME OR SELF CARE INDEPENDEN T IN THE HOME GOALS MET 93.02
[2025-01-07 18:25] VITALS: BP 121/64; PULSE 66; RESP 18; TEMP 36.7; O2SAT 96; BMI 39.6
--- OUTSIDE RECORDS SUMMARY | 2025-01-07 18:27 | XMS_ITS | Clinical Summary ---
Author Organization 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
--- OUTSIDE RECORDS SUMMARY | 2025-01-07 18:27 | XMS_ITS | Clinical Summary ---
Author Organization Healthcare Address [address] [place] [address] Care Team Providers Care Border Patrol Agent Name Role Phone Celsa Pereira RN Primary [...] cholecalcifero l (True Vitamin D3) 1.25 MG (14152 UT) capsule Take 1 capsule by mouth [...] mouth every 6 hours as needed. Under [place] law, monthly prescriptions (30 days) can be [...] not crush or chew. 30 capsule 1 Active Active Problems Problem Noted Date Diagnosed Date [...] Care Team Description 10/18/2024 Travel 10/11/2024 Travel 09/30/2024 2:02 PM EDT - 10/21/2024 2:13 PM EDT Hospital Encounter [facility] Inpatient [address] [place] [address] Edda Watts DO Arndt, Frederick, MD Romond, John B, MD Chadha, Jagriti, MD Crutcher, Hilary L, MD Acute encephalopathy (Primary Dx); HE (hepatic encephalopathy) (CMS/HCC); Thrombocytopenia (CMS/HCC); Dysarthria; Chest pain, unspecified type; Hepatic encephalopathy (CMS/HCC); Altered mental status, unspecified altered mental status type Discharge Disposition: Home-Health Care Svc from Last 3 Months Immunizations Immunization Administration Dates Next Due Hep B, adult 07/27/2020 Influenza, injectable, quadrivalent, preservativ e free 02/16/2020,02/15/2018 Renetta COVID-19 Vaccine (Blue Cap) 18+ 03/08/20 21 Pfizer-BioNTech COVID-19 Vac cine (Youssef Cap) 12+ years [...] any time in the past 12 m [facility], were you homeless or living in [...] Date Last Done Comments [facility]-Depression Screening 1970 [facility]-Infant/Child/Adol SDOH Screenings 1971 [facility]-Hepatitis A Vaccines (1 of 2 - Risk 2-dose series) 1990 [facility]-Pneumococcal Vaccine: 50+ Years (1 of 2 - PCV) 1990 CT Colonography 2016 Colonoscopy 2016 FIT-DNA 2016 FIT 2016 FOBT 2016 Sigmoidoscopy 2016 [facility]-Colorectal Cancer Screening 2016 [facility]-Hepatitis B Vaccines (2 of 3 - 19+ 3-dose series) 08/24/2020 07/27/2020 [facility]-Breast Cancer Screening 2021 [facility]-Zoster Vaccines (1 of 2) 2021 UWA-EEPAS-45 Vaccine ( season) 2024 08/18/2021, 03/08/2021, 12/29/2020 [facility]-Influenza Vaccine (#1) 2024 [...] PANEL, PLASMA Routine 10/07/2024 4:46 AM EDT ED HIV 1/2 ANTIBODY/ANTIGEN SCREEN WITH REFLEX TO HIV I/II DIFFERENTIATION STAT 09/30/2024 2:51 PM EDT HEPATITIS C ANTIBODY - ED W/REFLEX TO HCV QUANT PCR STAT 09/30/2024 2:50 PM EDT HEMOGLOBIN A1C Add-On 06/27/2021 8:20 [...] CLINICAL INDICATION: evaluate subcutaneous nodule TECHNIQUE: Multiplanar pineda scale survey and color Doppler sonographic imaging [...] CLINICAL INDICATION: evaluate subcutaneous nodule TECHNIQUE: Multiplanar pineda scale survey and color Doppler sonographic imaging [...] 10/18/2024 11:42 AM us Momo Akhtar MD IMG US PROCEDURES Final Result * (ABNORMAL) CBC W/O Differential (10/17/2024 4:53 AM EDT) WBC Count 2.25(L) 3.70 - 10.30 10*3/uL LAB HEMATOLOGY METHOD 10/17/2024 5:15 AM EDT [facility] RBC Count 3.31(L) 3.90 - 5.20 10*6/uL LAB HEMATOLOGY METHOD 10/17/2024 5:15 AM EDT [facility] HGB 11.2 11.2 - 15.7 g/dL LAB HEMATOLOGY METHOD 10/17/2024 5:15 AM EDT [facility] HCT 33.4(L) 34.0 - 45.0 % LAB HEMATOLOGY METHOD 10/17/2024 5:15 AM EDT [facility] Platelet Count 77(L) 155 - 369 10*3/uL LAB HEMATOLOGY METHOD 10/17/2024 5:15 AM EDT [facility] MCV 101(H) 79 - 98 fL LAB HEMATOLOGY METHOD 10/17/2024 5:15 AM EDT [facility] MCH 33.8(H) 26.0 - 32.0 pg LAB HEMATOLOGY METHOD 10/17/2024 5:15 AM EDT [facility] MCHC 33.5 30.7 - 35.5 g/dL LAB HEMATOLOGY METHOD 10/17/2024 5:15 AM EDT [facility] RDW 14.0 11.5 - 14.5 % LAB HEMATOLOGY METHOD 10/17/2024 5:15 AM EDT [facility] MPV 8.8 8.8 - 12.5 fL LAB HEMATOLOGY METHOD 10/17/2024 5:15 AM EDT [facility] nRBC 0.0 <=0.0 per 100 WBCs LAB HEMATOLOGY METHOD 10/17/2024 5:15 AM EDT [facility] Blood Venous blood specimen / Unknown Venipuncture / Unknown 10/17/2024 4:53 AM EDT 10/17/2024 5:08 AM EDT us Momo Akhtar MD LAB BLOOD ORDERABLES Final Resu lt [facility] [address] [place] [address] * (ABNORMAL) Comprehensive Metabolic Panel, Plasma (10/17/2024 4:53 AM EDT) Only the most recent of2 resultswithin the time period is included. Glucose, Plasma 79 74 - 99 mg/dL 10/17/2024 5:37 AM EDT [facility] BUN, Plasma 7 7 - 21 mg/dL 10/17/2024 5:37 AM EDT [facility] Creatinine, Plasma 0.96 0.60 - 1.10 mg/dL 10/17/2024 5:37 AM EDT [facility] BUN/Creatinine Ratio 7 10/17/2024 5:37 AM EDT [facility] Sodium, Plasma 138 136 - 145 mmol/L 10/17/2024 5:37 AM EDT [facility] Potassium, Plasma 4.1 3.6 - 4.9 mmol/L 10/17/2024 5:37 AM EDT [facility] Chloride, Plasma 106 97 - 107 mmol/L 10/17/2024 5:37 AM EDT [facility] CO2, Plasma 26 22 - 29 mmol/L 10/17/2024 5:37 AM EDT [facility] Anion Gap 6 6 - 16 mmol/L 10/17/2024 5:37 AM EDT [facility] Total Calcium, Plasma 9.4 8.9 - 10.2 mg/dL 10/17/2024 5:37 AM EDT [facility] Total Protein 6.0(L) 6.3 - 7.9 g/dL 10/17/2024 5:37 AM EDT [facility] Albumin, Plasma 3.0(L) 3.5 - 5.2 g/dL 10/17/2024 5:37 AM EDT [facility] AST, Plasma 56(H) 10 - 35 U/L 10/17/2024 5:37 AM EDT [facility] Comment:Hemolyzed, result ma y be falsely increased. ALT, Plasma 29 10 - 35 U/L 10/17/2024 5:37 AM EDT [facility] Alkaline Phosphatase, Plasma 73 35 - 104 U/L 10/17/2024 5:37 AM EDT [facility] Total Bilirubin, Plasma 0.7 0.2 - 1.1 mg/dL 10/17/2024 5:37 AM EDT [facility] eGFRcr 70.9 mL/min/1.7 3m*2 10/17/2024 5:37 AM EDT [facility] Comment:Reported eGFRcr in m L/min/1.73m2 is based the CKD-EPI 2020 equation that does not use a race coefficient. Blood Venous blood specimen / Unknown Venipuncture / Unknown 10/17/2024 4:53 AM EDT 10/17/2024 5:08 AM EDT us Momo Akhtar MD LAB BLOOD ORDERABLES Final Resu lt [facility] [address] [place] [address] * US Head Neck Soft Tissue (10/11/2024 [...] MD IMG US PROCEDURES Final Result * ED HIV 1/2 Antibody/Antigen Screen w/Reflex to HIV 1/2 Differentiation (09/30/2024 2:51 PM EDT) [facility] HIV 1 & 2 Antibody/Antigen Screen Non Reactive Non Reactive 09/30/2024 3:46 PM EDT [facility] Comment:Screening for HIV 1 & 2 antibodies, and P24 antigen is NONREACTIVE. No confirmatory testing is required. Blood Venous blood specimen / Unknown Venipuncture / Unknown 09/30/2024 2:51 PM EDT 09/30/2024 3:04 PM EDT us Zack Teran MD LAB BLOOD ORDERABLES Final Re sult [facility] [address] [place] [address] * Hepatitis C Antibody - ED (09/30/2024 2:50 PM EDT) Hepatitis C Antibody Negative Negative 09/30/2024 3:44 PM EDT [facility] Blood Venous blood specimen / Unknown Venipuncture / Unknown 09/30/2024 2:50 PM EDT 09/30/2024 3:04 PM EDT us Zack Teran MD LAB BLOOD ORDERABLES Final Re sult Performing Organization Address City/[facility]/ZIP Co de Phone Number [facility] [address] [place] [address] * Hemoglobin A1c (06/27/2021 8:20 AM EST) Hemoglobin A1c 4.8 <5.7 % 06/27/2021 7:11 PM EST [facility] Blood Venous blood specimen / Unknown Venipuncture / Unknown 06/27/2021 8:20 AM EST 06/27/2021 8:30 AM EST us Ryan Javed MD LAB BLOOD ORDERABLES Final Resul t Performing Organization Address City/[facility] Co de Phone Number [facility] [address] [place] [address] * Cytology (12/11/2018 12:00 AM EDT) 12/11/2018 12/12/2018 5:1 3 PM EDT Narrative SUNQUEST - 12/16/2018 6:58 AM EDT [facility] MR #: [id number] [facility] [place] [place] [id number] 1970 (Age: 48) FW Collect Date: 12/11/2018 00:00 Receipt Date: 12/12/2018 17:13 Page 1 DEPARTMENT OF PATHOLOGY AND LABORATORY MEDICINE CYTOPATHOLOGY REPORT Email: [email or web address] [phone] ATTENDING MD/Practitioner: Abraham Steiner MD Service: [facility] Location: [facility] Reported: 12/16/2018 06:58 Collected: 12/11/2018 00:00 INTERPRETATION A. THIN PREP (CERVICAL/VAGINAL): NEGATIVE FOR INTRAEPITHELIAL LESION OR MALIGNANCY. INFLAMMATORY CHANGE. SATISFACTORY FOR EVALUATION; ENDOCERVICAL/ TRANSFORMATION ZONE COMPONENT PRESENT. Slide examined with [email or web address] ThinPrep Imaging System but manually screened for technical reasons. Electronically Signed Out By JODEE Zamora(ASC) JODEE Zamora(ASCP) Cervical cytology is a screening [...] results is suggested (please call Microbiology at [phone] for results). CLINICAL INFORMATION: Menstrual History: Cyclic Date of Last Menstrual Period: {Not Provided} Other Clinical Conditions: If ASCUS and > 24 years of age, HPV/DNA testing requested. SPECIMEN DESCRIPTION: A: THIN PREP (CERVICAL/VAGINAL) THIN PREP PROCESS CELLULAR ENHANCEMENT ICD: F: A; RT IMAGE 50011 SNOMED CODES: A; [id number] In cases where a pathologist has signed out the report, the service has been rendered in part by a resident. The signing pathologist has performed and is responsible for the reported pathologic evaluation. Abigail Steiner MD LAB PATHOLOGY ORDERABLES Rosie ewing Result SUNQUEST from Last 3 Months or Most Recently Relevant to Health Maintenance Insurance [facility] MEDICAID ANTHEM Advance Directives * Full Code [...] Patient has decision-making capacity? Yes Care Teams Border Patrol Agent Relationship Specialty Start Date End Date Celsa Pereira RN [address] [address] PCP - General 10/01/24
--- NOTE | 2025-01-07 18:45 | HMH.EDGENADL ---
Discharge Plan Disposition Patient Disposition: Home, Self-Care Condition: Good Prescriptions Prescriptions: New Nasal Moisturizing 0.65 % aerosol,spray 1 spray intranasal BID PRN (Reason: dry nasal passages) Qty: 50 0RF No Action lidocaine 5 % Adhesive Patch,Medicated 1 patch TOPICAL DAILYP PRN (Reason: Pain) Rx Instructions: leave on most painful area for up to 12 hrs oxcarbazepine 150 mg Tablet 150 mg PO BID donepezil 5 mg Tablet 5 mg PO HS cholecalciferol (vitamin D3) 1,250 mcg (50,000 unit) Capsule 1,250 mcg PO WEEKLY Rx Instructions: weekly on SUNDAY promethazine 25 mg suppository 25 mg PA Q6HP PRN (Reason: Nausea And Vomiting) carvedilol 3.125 mg Tablet 3.125 mg PO BID 30 Days Qty: 60 0RF spironolactone 50 mg tablet 50 mg PO DAILY Qty: 30 0RF benzonatate 100 mg capsule 100 mg PO TID PRN (Reason: cough) Qty: 30 0RF azithromycin 250 mg tablet See Rx Instructions .ROUTE .COMPLEX Qty: 6 0RF Rx Instructions: For 250 mg dose pack: take 500 mg today (day 1), then 250 mg for 4 days (days 2-5) azithromycin 250 mg tablet 250 mg PO DAILY 4 Days Qty: 4 0RF Rx Instructions: start on day 2 of therapy benzonatate 100 mg capsule 100 mg PO BID PRN (Reason: cough) 5 Days Qty: 10 0RF pantoprazole 40 mg Tablet,Delayed Release (Dr/Ec) 40 mg PO HS duloxetine 30 mg Capsule,Delayed Release(Dr/Ec) 30 mg PO DAILY melatonin 5 mg tablet 10 mg PO HS pyridoxine (vitamin B6) 50 mg tablet 50 mg PO DAILY acetaminophen 325 mg Tablet 325 mg PO Q6HP PRN (Reason: Mild Pain (Scale Score 1-4)) cyclobenzaprine 5 mg Tablet 5 mg PO TIDP PRN (Reason: Muscle Spasm) ferrous sulfate 324 mg (65 mg iron) tablet,delayed release (DR/EC) 324 mg PO Q2D Rx Instructions: take 1 tab every other day albuterol sulfate 90 mcg/actuation HFA aerosol inhaler 1 puff inhalation Q6HP PRN (Reason: Shortness Of Breath) Patient Comments: INHALE 1 PUFF BY MOUTH EVERY 6 HOURS NEEDED may keep AT bedside (shortness of breath) ondansetron 4 mg tablet,disintegrating 4 mg PO Q6H PRN (Reason: nausea and vomiting) Qty: 10 0RF meloxicam 15 mg tablet 15 mg PO DAILY amlodipine 5 mg tablet 5 mg PO HS levothyroxine 88 mcg tablet 88 mcg PO DAILY polyethylene glycol 3350 17 gram/dose powder 17 g PO DAILY alum-mag hydroxide-simeth [Almacone-2] 400-400-40 mg/5 mL suspension 30 ml PO DAILYP PRN (Reason: gerd) lactulose 10 gram/15 mL solution 30 ml PO TID cetirizine 10 mg tablet 10 mg PO DAILY fluticasone prp-sod.chl,bicarb 50 mcg- 0.9 % Kit,[place] Suspension And [place] 1 ea INTRANASAL DAILY Referrals Follow up/Referrals: Provider,Referral, MD [Primary Care Provider, Medical] - See instructions Activity Restrictions/Add. Instructions Additional Instructions/Restrictions: Hold meloxicam Saline nasal spray Follow-up with ENT If symptoms worsen or do not improve return Clinical Impressions Clinical Impression: Epistaxis Instructions Patient Instructions: DI for Nosebleed Print Language Print Language: Uruguayan Discharge ED Provider: Lola Mckenzie General Adult HPI <Abraham Mcqueen ([facility]), SENIOR REACTOR OPERATOR - Last Filed: 01/07/25 18:51> General Chief complaint: Epistaxis Stated complaint: Nose Bleed Time Seen by Provider: 01/07/25 18:23 Mode of Arrival: EMS Source of Information: Patient Description of Symptoms (Recalled from ER Triage Doc. by RN): Patient presents to ED for nosebleed for approx. 20 minutes. Nosebleed resolved with EMS en route. Has had intermittent nosebleeds for about History of Present Illness HPI narrative: 54-year-old female presents for nosebleed that lasted approximately 20 minutes. Nosebleed had resolved prior to EMS arrival. Patient states she has had nosebleeds on and off for the about a month. Related Data Home Medications ?Medication ?Instructions ?Recorded ?Confirmed duloxetine 30 mg capsule,delayed 30 mg PO DAILY 05/02/22 11/19/24 release pantoprazole 40 mg tablet,delayed 40 mg PO HS 05/02/22 11/19/24 release melatonin 5 mg tablet 10 mg PO HS 05/03/22 11/19/24 pyridoxine (vitamin B6) 50 mg 50 mg PO DAILY 02/21/23 11/19/24 tablet acetaminophen 325 mg tablet 325 mg PO Q6HP PRN Mild Pain 05/14/23 11/19/24 (Scale Score 1-4) cyclobenzaprine 5 mg tablet 5 mg PO TIDP PRN Muscle Spasm 05/14/23 11/19/24 ferrous sulfate 324 mg (65 mg 324 mg PO Q2D 05/14/23 11/19/24 iron) tablet,delayed release albuterol sulfate 90 mcg/actuation 1 puff inhalation Q6HP PRN 07/18/23 11/19/24 aerosol inhaler Shortness Of Breath cholecalciferol (vitamin D3) 1,250 1,250 mcg PO WEEKLY 04/06/24 11/19/24 mcg (50,000 unit) capsule donepezil 5 mg tablet 5 mg PO HS 04/06/24 11/19/24 lidocaine 5 % topical patch 1 patch topical DAILYP PRN Pain 04/06/24 11/19/24 oxcarbazepine 150 mg tablet 150 mg PO BID 04/06/24 11/19/24 promethazine 25 mg rectal 25 mg PA Q6HP PRN Nausea And 04/06/24 11/19/24 suppository Vomiting aluminum-mag hydroxide-simethicone 30 ml PO DAILYP PRN gerd 11/19/24 11/19/24 400 mg-400 mg-40 mg/5 mL oral susp (Almacone-2) amlodipine 5 mg tablet 5 mg PO HS 11/19/24 11/19/24 cetirizine 10 mg tablet 10 mg PO DAILY 11/19/24 11/19/24 fluticasone prop.50 mcg 1 ea intranasal DAILY 11/19/24 11/19/24 spray,suspen-sod.chloride 0.9% nasal spray kit lactulose 10 gram/15 mL oral 30 ml PO TID 11/19/24 11/19/24 solution levothyroxine 88 mcg tablet 88 mcg PO DAILY 11/19/24 11/19/24 meloxicam 15 mg tablet 15 mg PO DAILY 11/19/24 11/19/24 polyethylene glycol 3350 17 17 g PO DAILY 11/19/24 11/19/24 gram/dose oral powder Previous Rx's ?Medication ?Instructions ?Recorded carvedilol 3.125 mg tablet 3.125 mg PO BID 30 days #60 tabs 04/07/24 spironolactone 50 mg tablet 50 mg PO DAILY #30 tabs 04/07/24 Held on 08/26/24. Instructions: Resume on 08/29/24. ondansetron 4 mg disintegrating 4 mg PO Q6H PRN nausea and 08/26/24 tablet vomiting #10 tabs azithromycin 250 mg tablet See Rx Instructions PO .COMPLEX #6 11/21/24 tabs benzonatate 100 mg capsule 100 mg PO TID PRN cough #30 caps 11/21/24 azithromycin 250 mg tablet 250 mg PO DAILY 4 days #4 tabs 12/18/24 benzonatate 100 mg capsule 100 mg PO BID PRN cough 5 days #10 12/18/24 caps sodium chloride 0.65 % nasal spray 1 spray intranasal BID PRN dry 01/07/25 aerosol (Nasal Moisturizing) nasal passages #50 mL Allergies Allergy/AdvReac Type Severity Reaction Status Date / Time amoxicillin (From Augmentin) Allergy Unknown Verified 03/25/24 17:02 allergy reaction clavulanic acid (From Allergy Unknown Verified 03/25/24 17:02 Augmentin) allergy reaction oxycodone Allergy Unknown Verified 03/25/24 17:02 allergy reaction PFS <Abraham Mcqueen ([facility]), SENIOR REACTOR OPERATOR - Last Filed: 01/07/25 18:51> FORMERLY [facility], [facility] Disclaimer: The information contained in this section may have been updated after the patient was seen, as this information can be updated by other users. Medical History , SENIOR REACTOR OPERATOR) Dizziness Dyspnea Nausea Headache Constipation Abnormal finding on diagnostic imaging of kidney Pyelonephritis Cirrhosis of liver Bipolar 1 disorder Hypothyroidism Hypertension Cognitive impairment Murmur, heart Obstructive sleep apnea Hypothyroid Anxiety Surgical History , SENIOR REACTOR OPERATOR) H/O section H/O hernia repair Hx of appendectomy Family History , SENIOR REACTOR OPERATOR) No significant family history Social History , SENIOR REACTOR OPERATOR) Smoking Status: Never smoker alcohol intake: never current occupational status: disabled Travel in the last 8 weeks?: None Have you lived/traveled outside US in past 30 days?: No Contact w/someone who lives/traveled outside US past 30 days?: No Exposure to someone with infectious disease in past 14 days?: No Do you have a fever (greater than 100.4 F or 38 C)?: No Have you tested positive for COVID-19?: No Exposed to someone with COVID-19 in past 14 days?: No Do you have a sore throat?: No Do you have a cough?: No Do you have any weakness?: No Do you have any diarrhea?: No Are you experiencing any unusual bleeding?: No Do you have any muscle aches/pain?: No Do you have any abdominal pain?: No Are you experiencing loss of taste or smell?: No Other Medical History Have you received the Flu Vaccine for this season: No Have you received the Pneumonia Vaccine: No <Abraham [facility]), SENIOR REACTOR OPERATOR - Last Filed: 01/07/25 18:51> ROS Obtained: Yes All systems reviewed & no additional complaints except as documented ENT Ears, Nose, Mouth, and Throat: Reports system reviewed and no additional complaints, except as documented, Reports as per HPI and Reports other (Nosebleed) Physical Exam <A[facility]ham [facility]), SENIOR REACTOR OPERATOR - Last Filed: 01/07/25 18:51> General General appearance: alert and in no apparent distress Head Head exam: atraumatic Eye Eye exam: Present normal appearance ENT ENT exam: Present normal exam, normal oropharynx, mucous membranes moist and TM's normal bilaterally Expanded ENT Exam Nasal speculum exam: Bilateral: normal Respiratory Respiratory exam: Present normal lung sounds bilaterally Cardiovascular Cardiovascular exam: Present regular rate and normal rhythm Neurological Exam Neurological exam: Present alert and oriented X3 Medical Decision Making <Abraham [facility]), SENIOR REACTOR OPERATOR - Last Filed: 01/07/25 18:51> Medical Records Medical records reviewed: Yes I reviewed the patient's medical records. Screening: Per USPSTF and CDC recommendations, given the prevalence of disease in our region, it is our hospital?s policy to screen for HIV and viral Hepatitis for all patients aged 18 and over and those with ongoing risk factors. Darrian Inquiry Pt receiving controlled substance: No Vital Signs: 01/07/25 18:25 01/07/25 18:25 01/07/25 18:52 Temperature 98.1 F 98.1 F 98.1 F Temperature Source Oral Pulse Rate 66 66 Pulse Rate [Right] 66 Respiratory Rate 18 18 18 Blood Pressure 121/64 121/64 Blood Pressure [Left Arm] 121/64 Blood Pressure Mean [Left Arm] 83 02 Sat by Pulse Oximetry 96 96 Lab Data Lab results reviewed: Yes I reviewed the patient's lab results. Medical Decision Narrative: In summary patient is a 54-year-old female who presents to the emergency department for evaluation of nosebleed. Patient is hemodynamically stable upon arrival, afebrile. Unremarkable physical exam. Differential diagnosis includes nosebleed. Upon repeat evaluation no bleeding noted. Given this patient is appropriate for discharge with discharge home needs to hold meloxicam. Use saline nose spray and follow-up with ENT Places where you can increase complexity: I informally interpreted patient's chest x-ray or CT and is remarkable for? Documented with rn cardiac shows rate and rhythm with time Consideration of test but deferring. Example: I consider chest x-ray on this patient however given that they have no oxygen requirement are clear to auscultation all lung quez[place] we deferred. Social determinants of health: Given that patient is undomiciled increases complexity. Given that patient has polysubstance abuse compounds all aspects of care. <Lola Mckenzie, DO - Last Filed: 01/07/25 22:14> Vital Signs: 01/07/25 18:25 01/07/25 18:25 01/07/25 18:52 Temperature 98.1 F 98.1 F 98.1 F Temperature Source Oral Pulse Rate 66 66 Pulse Rate [Right] 66 Respiratory Rate 18 18 18 Blood Pressure 121/64 121/64 Blood Pressure [Left Arm] 121/64 Blood Pressure Mean [Left Arm] 83 02 Sat by Pulse Oximetry 96 96 Medical Decision Narrative: In summary patient is a 54-year-old female who presents to the emergency department for evaluation of nosebleed. Patient is hemodynamically stable upon arrival, afebrile. Unremarkable physical exam. Differential diagnosis includes anterior nosebleed, posterior nosebleed, coagulopathy, foreign body, amongst others. Upon repeat evaluation no bleeding noted. Given this patient is appropriate for discharge with discharge home needs to hold meloxicam. Use saline nose spray and follow-up with ENT. Precautions were discussed. Critical Care <Abraham Mcqueen ([facility]), SENIOR REACTOR OPERATOR - Last Filed: 01/07/25 18:51> Critical Care Time Critical Care Time: No
[2025-01-07 18:52] VITALS: BP 121/64; PULSE 66; RESP 18; TEMP 36.7; O2SAT 98
--- NOTE | 2025-01-07 18:56 | PC.NURSE ---
called [facility] at this time to get patient back, states they will call me back when they figure out how to get patient home.
--- NOTE | 2025-01-07 19:35 | PC.NURSE ---
Attempted to call guardian as pt has no way back to [facility]. Also, spoke with [facility] and they refused to transport her.
--- NOTE | 2025-01-07 20:17 | PC.NURSE ---
Pt is awaitng transportation back to [facility] at this time.
--- NOTE | 2025-01-07 22:04 | PC.NURSE ---
GABI Rosario took pt back to [facility]. Soraya called [facility] and let them know that she's on the way.
== END 2025-01-07 22:09 | disposition home or self-care (01) ==
PROVIDERS: Emergency Provider Student in an Organized Health Care Education/Training Program
DX: R04.2 Hemoptysis (principal)
CPT/HCPCS: 99283

== ENCOUNTER 2025-02-09 10:25 | Outpatient (CLI) | payer BC, OTHER, SELFPAY ==
--- OUTSIDE RECORDS SUMMARY | 2024-12-24 20:00 | XMS_ITS | Clinical Summary ---
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 (CURRENT) DRUG THERAPY Active 10-27 00:00: 00 HEALTHCARE NETWORK PRICING CONSULTANT (CURRENT) USE OF NON-STEROIDA L NON-INFLAM (NSAID) [...] nasal spray,suspe nsion 10-28 00:00: 00 Yes [id number] ALLERGIES 2 spray DAILY 2 spray DAILY (route: nasal) Med Classific ation: Respirato ry Therapy Agents amitriptyli ne 50 mg tablet 10-28 00:00: 00 Yes [id number] DEPRESSION 1 tablet BEDTIME 1 tablet BEDTIME (route: oral) Med Classific ation: Central Nervous System Agents amlodipine 5 mg tablet 10-28 00:00: 00 Yes [id number] HIGH BLOOD PRESSURE 1 tablet BEDTIME 1 tablet BEDTIME (route: oral) Med Classific ation: Cardiovas cular Therapy Agents cetirizine 10 mg tablet 09-28 00:00: 00 Yes [id number] ALLERGIES 1 tablet DAILY 1 tablet DAILY (route: oral) Med Classific ation: Respirato ry Therapy Agents Coreg 3.125 mg tablet 10-28 00:00: 00 Yes [id number] HEART FAILURE 1 tablet 2 TIMES DAILY 1 tablet 2 TIMES DAILY (route: oral) Med Classific ation: Cardiovas cular Therapy Agents donepezil 5 mg tablet 10-28 00:00: 00 Yes [id number] MEMORY 1 tablet BEDTIME 1 tablet BEDTIME (route: oral) Med Classific ation: Cognitive Disorder Therapy duloxetine 60 mg capsule,del ayed release 09-28 00:00: 00 Yes [id number] DEPRESSION 1 capsule DAILY 1 capsule DAILY (route: oral) Med Classific ation: Central Nervous System Agents ferrous sulfate 324 mg (65 mg iron) tablet,travis yed release 09-28 00:00: 00 Yes [id number] SUPPLEMENT 1 tablet EVERY OTHER DAY 1 tablet EVERY OTHER DAY (route: oral) Med Classific ation: Electroly te Balance-N utritiona l Products lactulose 20 gram/30 mL oral solution 10-28 00:00: 00 Yes [id number] CONSTIPATIO N 20 g DAILY 20 g DAILY (route: oral) Med Classific ation: Gastroint estinal Therapy Agents levothyroxi ne 88 mcg tablet 10-28 00:00: 00 Yes [id number] THYROID 1 tablet DAILY 1 tablet DAILY (route: oral) Med Classific ation: Endocrine melatonin 5 mg tablet 10-28 00:00: 00 Yes [id number] SLEEP AID 1 tablet DAILY 1 tablet DAILY (route: oral) Med Classific ation: Central Nervous System Agents meloxicam 15 mg tablet 10-28 00:00: 00 Yes [id number] INFLAMMATIO N 1 tablet DAILY 1 tablet DAILY (route: oral) Med Classific ation: Analgesic , Anti-infl ammatory or Antipyret ic Miralax 17 gram oral powder packet 10-28 00:00: 00 Yes [id number] CONSTIPATIO N 1 packet DAILY 1 packet DAILY (route: oral) Med Classific ation: Gastroint estinal Therapy Agents oxcarbazepi ne 150 mg tablet 10-28 00:00: 00 Yes [id number] SEIZURES 1 tablet 2 TIMES DAILY 1 tablet 2 TIMES DAILY (route: oral) Med Classific ation: Central Nervous System Agents pantoprazol e 40 mg tablet,travis yed release 10-28 00:00: 00 Yes [id number] REFLUX 1 tablet DAILY 1 tablet DAILY (route: oral) Med Classific ation: Gastroint estinal Therapy Agents spironolact one 50 mg tablet 10-28 00:00: 00 Yes [id number] BLOOD PRESSURE 1 tablet DAILY 1 tablet DAILY (route: oral) Med Classific ation: Cardiovas cular Therapy Agents Vitamin B-2 50 mg tablet 10-28 00:00: 00 Yes [id number] SUPPLEMENT 1 tablet DAILY 1 tablet DAILY (route: oral) Med Classific ation: Electroly te Balance-N utritiona l Products Vitamin D2 1,250 mcg (50,000 unit) capsule 10-28 00:00: 00 Yes [id number] SUPPLEMENT 1 capsule DAILY 1 capsule DAILY (route: oral) Med Classific ation: Electroly te Balance-N utritiona l Products Xifaxan 550 mg tablet 10-28 00:00: 00 Yes [id number] IBS 1 tablet 3 TIMES DAILY 1 tablet 3 TIMES DAILY (route: oral) Med Classific ation: Anti-Infe ctive Agents acetaminoph en 325 mg tablet 10-28 00:00: 00 Yes [id number] PAIN 1 tablet NEEDED 1 tablet NEEDED (route: oral) Med Classific ation: Analgesic , Anti-infl ammatory or Antipyret ic albuterol sulfate HFA 90 mcg/actuati on aerosol inhaler 10-28 00:00: 00 Yes [id number] WHEEZING 1 puff NEEDED 1 puff NEEDED (route: inhalation ) Med Classific ation: Respirato ry Therapy Agents cyclobenzap rine 5 mg tablet 10-28 00:00: 00 Yes [id number] MUSCLE SPASMS 1 tablet NEEDED 1 tablet NEEDED (route: oral) Med Classific ation: Locomotor System ondansetron 4 mg disintegrat ing tablet 10-28 00:00: 00 Yes [id number] NAUSEA 1 tablet NEEDED 1 tablet NEEDED (route: oral) Med Classific ation: Gastroint estinal Therapy Agents Promethegan 25 mg rectal suppository 7 00:00: 00 Yes [id number] NAUSEA/VOMI TTING 1 supposi tory, rectal NEEDED 1 suppositor y, rectal NEEDED (route: rectal) Med Classific ation: Gastroint estinal Therapy Agents azithromyci n 250 mg tablet 12-18 00:00: 00 Yes [id number] ANTIBIOTIC 1 tablet DAILY 1 tablet DAILY (route: oral) Med Classific ation: Anti-Infe ctive Agents benzonatate 100 mg capsule 12-18 00:00: 00 Yes [id number] COUGH 1 capsule NEEDED 1 capsule NEEDED (route: oral) Med Classific ation: Respirato ry Therapy Agents Vital Signs Vital Name Observation Time Observation Value Commen ts Temperature 2024-12-24 13:39:00.000 97.6 [degF] Temperature 2024-12-19 14:31:00.000 97.6 [degF] Temperature 2024-12-02 14:00:00.000 98.2 [degF] Temperature 2024-12-01 11:20:00.000 97.6 [degF] Temperature 2024-11-25 13:53:00.000 97.6 [degF] Temperature 2024-11-18 14:32:00.000 98 [degF] Temperature 2024-11-17 12:55:00.000 98.1 [degF] Temperature 2024-11-12 12:56:00.000 97.9 [degF] Temperature 2024-11-04 14:48:00.000 97.6 [degF] Temperature 2024-10-27 13:06:00.000 97.9 [degF] BMI (%) 2024-10-27 12:58:53.000 39 kg/m2 Height 2024-10-27 12:58:44.000 65 [in_us] Pulse 2024-12-24 13:39:00.000 63 /min Pulse 2024-12-19 14:31:00.000 76 /min Pulse 2024-12-02 14:00:00.000 64 /min Pulse 2024-12-01 11:20:00.000 66 /min Pulse 2024-11-25 13:53:00.000 80 /min Pulse 2024-11-18 14:32:00.000 68 /min Pulse 2024-11-17 12:55:00.000 76 /min Pulse 2024-11-12 12:56:00.000 65 /min Pulse 2024-11-04 14:48:00.000 66 /min Pulse 2024-10-27 13:06:00.000 61 /min O2 Saturation (%) 2024-12-24 13:39:00.000 97 % O2 Saturation (%) 2024-12-19 14:31:00.000 97 % O2 Saturation (%) 2024-12-02 14:00:00.000 95 % O2 Saturation (%) 2024-12-01 11:20:00.000 95 % O2 Saturation (%) 2024-11-25 13:53:00.000 95 % O2 Saturation (%) 2024-11-18 14:32:00.000 98 % O2 Saturation (%) 2024-11-17 12:55:00.000 98 % O2 Saturation (%) 2024-11-12 12:56:00.000 97 % O2 Saturation (%) 2024-11-04 14:48:00.000 95 % O2 Saturation (%) 2024-10-27 13:06:00.000 94 % Respirations 2024-12-24 13:39:00.000 18 /min Respirations 2024-12-19 14:31:00.000 18 /min Respirations 2024-12-02 14:00:00.000 18 /min Respirations 2024-12-01 11:20:00.000 18 /min Respirations 2024-11-25 13:53:00.000 18 /min Respirations 2024-11-18 14:32:00.000 18 /min Respirations 2024-11-17 12:55:00.000 18 /min Respirations 2024-11-12 12:56:00.000 18 /min Respirations 2024-11-04 14:48:00.000 18 /min Respirations 2024-10-27 13:06:00.000 18 /min Weight (lbs) 2024-10-27 12:58:53.000 235 [lb_av] Systolic Blood Pressure 2024-12-24 13:39:00.000 139 mm [Hg] Systolic Blood Pressure 2024-12-19 14:31:00.000 110 mm [Hg] Systolic Blood Pressure 2024-12-02 14:00:00.000 124 mm [...] 13:06:00.000 124 mm [Hg] Diastolic Blood Pressure 2024-12-24 13:39:00.000 70 mm [Hg] Diastolic Blood Pressure 2024-12-19 14:31:00.000 70 mm [Hg] Diastolic Blood Pressure 2024-12-02 14:00:00.000 [...] 2024-10-27 13:06:00.000 80 mm [Hg] Plan of Treatment Planned Activity Planned Date Details Comments Future [...] PROVIDER. MAY ACCEPT ORDERS FROM THE FOLLOWING PHYSICIAN(S):] Future Scheduled Test CLINICIAN TO ASSESS CURRENT [...] EDUCATION AND RESOURCES NEEDED TO MAINTAIN HEALTH.] Goal 2024-12-25 Patient Goal - B E ABLE TO GET MY OWN PLACE AND BE IND Goal Provider Goal - A PHYSICAL THERAPY PLAN OF CARE WILL BE ORDERED BY PHYSICIAN AND PROVIDED BY PHYSICAL THERAPY. ALL GOALS TO BE MET BY END OF CURRENTLY APPROVED PLAN OF CARE. Goal Provider Goal - PATIENT/CAREGIVER VERBALIZES AND DEMONSTRATES ABILITY FOR THE PATIENT TO FUNCTION WITHIN THEIR COMMUNITY AND TO PARTICIPATE IN THE DEVELOPMENT AND IMPLEMENTATION OF THEIR CARE PLAN THROUGHOUT THE CERTIFICATION PERIOD. Goal Provider Goal - PATIENT TO DEMONSTRATE REDUCED FALL RISK AND IMPROVE HOME SAFETY BY 12 31 24 Goal Provider Goal - PATIENT AND/OR CAREGIVER WILL BE IN AGREEMENT WITH DISCHARGE PLANS AND WILL VERBALIZE HAVING RESOURCES AND KNOWLEDGE TO MAINTAIN HEALTH. Goal Provider Goal - PATIENT WILL REMAIN SAFE AND NEEDS WILL BE MET BY COMMUNICATING CHANGES IN POC WITH PATIENT/CAREGIVER AND THE APPROPRIATE PHYSICIAN(S) WRITING ORDERS ON THE POC AND COMMUNICATING WITH RECEIVING PHYSICIANS/HEALTH CARE PROVIDER WHEN THERE ARE CHANGES IN THE DISCHARGE PLAN THROUGHOUT THE EPISODE OF CARE. Goal Provider Goal - PATIENT/CAREGIVER WILL VERBALIZE MEASURES TO COPE WITH DEPRESSION AND STATE SIGNS AND SYMPTOMS TO REPORT TO PHYSICIAN BY 11 30 24 Goal Provider Goal - PATIENT WILL DEMONSTRATE IMPROVED FUNCTION IN RESPONSE TO SPECIFIC EXERCISE(S) AND/OR MANUAL THERAPY TECHNIQUE(S), EVIDENCED BY INCREASED INDEPENDENCE IN ACTIVITIES OF DAILY LIVING. GOAL TO BE MET BY 12 31 24 Goal Provider Goal - PATIENT/CAREGIVER WILL DEMONSTRATE DECREASED FALL RISK DURING FUNCTIONAL ACTIVITIES. GOAL TO BE MET BY 12 31 24 Goal Provider Goal - PATIENT WILL DEMONSTRATE IMPROVED BED MOBILITY. GOAL TO BE MET BY 12 31 24 Goal Provider Goal - PATIENT / CAREGIVER WILL DEMONSTRATE SAFE TRANSFERS USING APPROPRIATE BODY MECHANICS AND EQUIPMENT. GOAL TO BE MET BY 12 31 24 Goal Provider Goal - PATIENT WILL DEMONSTRATE SAFE GAIT TECHNIQUE WITH ASSISTIVE DEVICES NEEDED TO MINIMIZE RISK OF INJURY. GOAL TO BE MET BY 12 31 24 Goal Provider Goal - PATIENT/CAREGIVER WILL ACHIEVE EFFECTIVE PAIN CONTROL AND DEMONSTRATE UNDERSTANDING OF BOTH PHARMACOLOGIC AND NON-PHARMACOLOGIC PAIN CONTROL METHODS. GOAL TO BE MET BY 12 31 24 Goal Provider Goal - PATIENT/CAREGIVER WILL VERBALIZE/DEMONSTRATE ABILITY TO CARE FOR HYPERTENSION. GOAL TO BE MET BY 12 31 24 Goal Provider Goal - PATIENT/CAREGIVER WILL VERBALIZE AND DEMONSTRATE HEALTHY BEHAVIORS AND STRATEGIES TO MANAGE ANXIETY. GOAL TO BE MET BY 12 31 24 Goal Provider Goal - OCCUPATIONAL THERAPY EVALUATION WILL BE COMPLETED. PLAN OF CARE WILL BE ORDERED BY PHYSICIAN AND PROVIDED BY OCCUPATIONAL THERAPIST. ALL GOALS TO BE MET BY END OF CURRENTLY APPROVED PLAN OF CARE. Goal Provider Goal - PATIENT/CAREGIVER WILL VERBALIZE/DEMONSTRATE ABILITY FOR THE PATIENT TO FUNCTION WITHIN THEIR COMMUNITY AND TO PARTICIPATE IN THE DEVELOPMENT AND IMPLEMENTATION OF THEIR CARE PLAN THROUGHOUT THE CERTIFICATION PERIOD PATIENT WILL REMAIN SAFE AND NEEDS WILL BE MET BY COMMUNICATING CHANGES IN POC WITH PATIENT/CAREGIVER AND THE APPROPRIATE PHYSICIAN(S) WRITING ORDERS ON THE POC AND COMMUNICATING WITH RECEIVING PHYSICIANS/HEALTH CARE PROVIDER WHEN THERE ARE CHANGES IN THE DISCHARGE PLAN THROUGHOUT THE EPISODE OF CARE. THROUGH REMOTE VIDEO VISIT(S) EDUCATION WILL BE RECEIVED TOWARDS POC ORDERS/GOALS. PATIENT/CAREGIVER WILL VERBALIZE/DEMONSTRATE THE FOLLOWING INTERVENTIONS/TECHNIQUES OCCUPATIONAL THERAPY EVALUATION WILL BE COMPLETED. PLAN OF CARE WILL BE ORDERED BY PHYSICIAN AND PROVIDED BY OCCUPATIONAL THERAPIST. ALL GOALS TO BE MET BY END OF CURRENTLY APPROVED PLAN OF CARE. PATIENT WILL DEMONSTRATE IMPROVED FUNCTION IN RESPONSE TO SPECIFIC EXERCISE(S) AND/OR MANUAL THERAPY TECHNIQUE(S), EVIDENCED BY INCREASED INDEPENDENCE IN ACTIVITIES OF DAILY LIVING. GOAL TO BE MET BY 12/25/2024 PATIENT / CAREGIVER WILL DEMONSTRATE SAFE TRANSFERS USING APPROPRIATE BODY MECHANICS AND EQUIPMENT. GOAL TO BE MET BY 12/25/2024 PATIENT TO DEMONSTRATE REDUCED FALL RISK AND IMPROVE HOME SAFETY BY 12/25/2024 PATIENT WILL DEMONSTRATE INCREASED INDEPENDENCE IN ACTIVITIES OF DAILY LIVING. GOAL TO BE MET BY 12/25/2024 PATIENT/CAREGIVER TO DEMONSTRATE UNDERSTANDING OF AND COMPLIANCE WITH ENERGY CONSERVATION MEASURES, EVIDENCED BY INCREASED TOLERANCE DURING ADL'S/IADL'S. GOAL TO BE MET BY 12/25/2024 PATIENT AND/OR CAREGIVER WILL BE IN AGREEMENT WITH DISCHARGE PLANS AND WILL VERBALIZE HAVING RESOURCES AND KNOWLEDGE TO MAINTAIN HEALTH. Reason for Visit INDEPENDENT IN THE HOME Encounters Start Date/Time End Date/Time Encounter Type Admission Type Attending [facility] Department Encounter ID Discharge Date Discharge Status Discharge Condition Discharge Reason Percent Goals Met 2024-10-27 00:00:00 2024-12-25 00:00:00 Outpatient NEW ADMISSION K[facility] [id number] 00:00:00 DISCHARGE TO HOME OR SELF CARE INDEPENDEN T IN THE HOME GOALS MET 93.02
--- NOTE | 2025-02-09 10:30 | CT_ITS ---
FINAL REPORT TECHNIQUE: Thin section axial images were obtained through the paranasal sinuses without contrast. Reconstruction images were obtained from the axial data. Exam was performed using dose reduction techniques such as automated exposure control, adjustment of the mA and kV according to patient size, and use of iterative reconstruction technique. CLINICAL HISTORY: NOSE BLEEDS COMPARISON: CT of the head 01/02/2023 FINDINGS: There is complete opacification of the right maxillary sinus with mucoperiosteal thickening in the right ethmoid and inferior right frontal sinuses. There is a mucous retention cyst or polyp present in the left sphenoid and the posterior right sphenoid sinus. The maxillary infundibulum is occluded on the right side, while the left side is patent. No air-fluid levels are identified. There is mild left nasal septal deviation. There is no acute osseous abnormality. Remaining soft tissues are unremarkable. IMPRESSION: 1. Complete opacification of the right maxillary sinus with mucoperiosteal thickening in the right ethmoid and inferior right frontal sinuses. 2. The right maxillary infundibulum is occluded, while the left is patent. No air-fluid levels are identified. Reviewed, Interpreted and Dictated by Louisa Hollingsworth MD Transcribed by Tena Espinoza Authenticated and [facility]
--- OUTSIDE RECORDS SUMMARY | 2025-02-09 10:31 | XMS_ITS | Clinical Summary ---
Author Organization [facility] Address [address] [place] [address] Phone Care Team Providers Care Fish Cutter Name Role Phone Unavailable Primary Care Provider [...] complete this topic Insurance ANTH PPO [facility] [place] MEDICAID CARVE OUT [facility] COMMUNITY PLAN [place] MDR
--- OUTSIDE RECORDS SUMMARY | 2025-02-09 10:31 | XMS_ITS | Clinical Summary ---
Author Organization Healthcare Address [address] [place] [address] Care Team Providers Care Radio Recorder Name Role Phone Celsa Pereira RN Primary [...] cholecalcifero l (True Vitamin D3) 1.25 MG (76548 UT) capsule Take 1 capsule by mouth [...] mouth every 6 hours as needed. Under [place] law, monthly prescriptions (30 days) can be [...] crush or chew. 30 capsule 1 5 Active Active Problems Problem Noted Date Diagnosed Date Hypoglycemia 09/30/2024 Mild cognitive impairment 11/26/2021 Morbid obesity with body mass index (BMI) of 40. 0 or higher 05/17/2021 Heart murmur 03/28/2021 BMI 40.0-44.9, adult 11/22/2020 Thrombocytopenia 11/22/2020 HE (hepatic encephalopathy) 11/19/2020 At high risk for falls 10/03/2020 Cirrhosis of liver without ascites 10/02/2020 FERNANDEZ (obstructive sleep apnea) 04/05/2019 Anxiety and depression 03/17/2019 Obesity, morbid, BMI 40.0-49.9 03/17/2019 Hypothyroidism 06/14/2015 Dyslipidemia 07/25/2014 Allergic rhinitis 07/25/2014 Resolved Problems Problem Noted Date Diagnosed Date Resolved Date Acute encephalopathy 09/30/2024 025 KYLIE (acute kidney injury) 09/30/2024 Encephalopathy acute 01/19/2021 025 Immunizations Immunization Administration Dates Next Due Hep B, adult 07/27/2020 Influenza, injectable, quadrivalent, preservativ e free 02/16/2020,02/15/2018 [email or web address] COVID-19 Vaccine (Blue Cap) 18+ 03/08/20 21 [employer] COVID-19 Vac cine (Youssef Cap) 12+ years [...] any time in the past 12 m [facility], were you homeless or living in a longterm (including now)? No 10/01/2024 Utilities Answer Date Recorded In the past 12 months has th e [employer], gas, oil, or water company threatened to [...] 2021 UKY-Zoster Vaccines (1 of 2) 2021 UGH-OXCQK-01 Vaccine (4 - 2024- season) 2024 08/18/2021, 03/08/2021, 12/29/2020 UKY-Influenza Vaccine [...] Procedure Name Priority Date/Time Associated Diagnosis Comments ED HIV 1/2 ANTIBODY/ANTIGEN SCREEN WITH REFLEX TO HIV I/II DIFFERENTIATION STAT 09/30/2024 2:51 PM EDT HEPATITIS C ANTIBODY - ED W/REFLEX TO HCV QUANT PCR STAT 09/30/2024 2:50 PM EDT HEMOGLOBIN A1C Add-On 06/27/2021 8:20 AM EST CYTO DATA CONVERSION Routine 12/11/2018 12:00 AM EDT from Last 3 Months or Most Recently Relevant to Health Maintenance Results * ED HIV 1/2 Antibody/Antigen Screen w/Reflex to HIV 1/2 Differentiation (09/30/2024 2:51 PM EDT) Pathologist [facility] HIV 1 & 2 Antibody/Antigen Screen Non Reactive Non Reactive 09/30/2024 3:46 PM EDT [facility] Comment:Screening for HIV 1 & 2 antibodies, and P24 antigen is NONREACTIVE. No confirmatory testing is required. Blood Venous blood specimen / Unknown Venipuncture / Unknown 09/30/2024 2:51 PM EDT 09/30/2024 3:04 PM EDT Zack Teran MD LAB BLOOD ORDERABLES Final Re sult Performing Organization Address City/[facility]/ZIP Co de Phone Number [facility] [address] [place] [address] * Hepatitis C Antibody - ED (09/30/2024 2:50 PM EDT) Pathologist [facility] Hepatitis C Antibody Negative Negative 09/30/2024 3:44 PM EDT [facility] Blood Venous blood specimen / Unknown Venipuncture / Unknown 09/30/2024 2:50 PM EDT 09/30/2024 3:04 PM EDT Zack Teran MD LAB BLOOD ORDERABLES Final Re sult [facility] [address] [place] [address] * Hemoglobin A1c (06/27/2021 8:20 AM EST) [facility] Hemoglobin A1c 4.8 <5.7 % 06/27/2021 7:11 PM EST [facility] Blood Venous blood specimen / Unknown Venipuncture / Unknown 06/27/2021 8:20 AM EST 06/27/2021 8:30 AM EST us Ryan Javed MD LAB BLOOD ORDERABLES Final Resul t [facility] [address] [place] [address] * Cytology (12/11/2018 12:00 AM EDT) 12/11/2018 12/12/2018 5:1 3 PM EDT Narrative SUNQUEST - 12/16/2018 6:58 AM EDT [facility] MR #: [id number] [facility] [place], [place] [address] 1970 (Age: 48) FW Collect Date: 12/11/2018 00:00 Receipt Date: 12/12/2018 17:13 Page 1 DEPARTMENT OF PATHOLOGY AND LABORATORY MEDICINE CYTOPATHOLOGY REPORT Email: [email or web address] ATTENDING MD/Practitioner: Abraham Steiner MD Service: [facility] Location: [facility] Reported: 12/16/2018 06:58 Collected: 12/11/2018 00:00 INTERPRETATION A. THIN PREP (CERVICAL/VAGINAL): NEGATIVE FOR INTRAEPITHELIAL LESION OR MALIGNANCY. INFLAMMATORY CHANGE. SATISFACTORY FOR EVALUATION; ENDOCERVICAL/ TRANSFORMATION ZONE COMPONENT PRESENT. Slide examined with [employer] For [employer] Cause ThinPrep Imaging System but manually screened for [...] results is suggested (please call Microbiology at [phone] for results). CLINICAL INFORMATION: Menstrual History: Cyclic Date of Last Menstrual Period: {Not Provided} Other Clinical Conditions: If ASCUS and > 24 years of age, HPV/DNA testing requested. SPECIMEN DESCRIPTION: A: THIN PREP (CERVICAL/VAGINAL) THIN PREP PROCESS CELLULAR ENHANCEMENT ICD: F: A; RT IMAGE [id number] SNOMED CODES: A; [id number] In cases where a pathologist has signed out the report, the service has been rendered in part by a resident. The signing pathologist has performed and is responsible for the reported pathologic evaluation. us Abigail Steiner MD LAB PATHOLOGY ORDERABLES Rosie ewing Result SUNQUEST from Last 3 Months or Most Recently Relevant to Health Maintenance Insurance [facility] [address] [place] [id number] [facility] MEDICAID [place] Advance Directives * Full [...] Patient has decision-making capacity? Yes Care Teams Radio Recorder Relationship Specialty Start Date End [place] [address] PCP - General 10/01/24
== END 2025-02-09 23:59 | disposition home or self-care (01) ==
LOC: RAD 10:25
PROVIDERS: PCP Nurse Practitioner Family; Visit Provider Nurse Practitioner
DX: J34.89 Other specified disorders of nose and nasal sinuses (principal); R93.0 Abnormal findings on diagnostic imaging of skull and head, not elsewhere classified
CPT/HCPCS: 70486

== ENCOUNTER 2025-03-24 10:23 | Outpatient (CLI) | payer BC, OTHER, SELFPAY ==
[2025-03-24 08:31] VITALS: BMI 43.0
--- OUTSIDE RECORDS SUMMARY | 2025-03-24 10:26 | XMS_ITS | Clinical Summary ---
Author Organization [facility] Address [address] [place] [address] Phone Care Team Providers Care Hyperion Analyst Name Role Phone Unavailable Primary Care Provider [...] of 2) 2021 COVID-19 Vaccine (1 - 2024-2 6 season) 2024 Influenza Vaccine (#1) 2024 Meningococcal B Vaccine Aged Out No l onger eligible based on patient's age to complete this topic Insurance ANTH PPO [facility] [place] MEDICAID CARVE OUT [facility] [place] MDR
--- OUTSIDE RECORDS SUMMARY | 2025-03-24 10:26 | XMS_ITS | Clinical Summary ---
Author Organization Healthcare Address [address] [id number] Care Team Providers Care Call Out Operator Name Role Phone Celsa Pereira RN Primary Care Provider [phone] Allergies Active Allergy Reactions Criticality Noted Date [...] cholecalcifero l (True Vitamin D3) 1.25 MG (72002 UT) capsule Take 1 capsule by mouth [...] mouth every 6 hours as needed. Under [place] law, monthly prescriptions (30 days) can be [...] Influenza, injectable, quadrivalent, preservativ e free 02/16/2020,02/15/2018 [employer] COVID-19 Vaccine (Blue Cap) 18+ 03/08/20 [employer] COVID-19 Vac cine (Youssef Cap) 12+ years [...] any time in the past 12 m [facility], were you homeless or living in a care home (including now)? No 10/01/2024 Utilities Answer [...] 2021 UKY-Zoster Vaccines (1 of 2) 2021 OER-VEIKK-12 Vaccine (4 - season) 2024 08/18/2021, 03/08/2021, 12/29/2020 UKY-Influenza Vaccine [...] 1/2 Differentiation (09/30/2024 2:51 PM EDT) Pathologist [facility] [place] HIV 1 & 2 Antibody/Antigen Screen Non Reactive Non Reactive 09/30/2024 3:46 PM EDT [facility] Comment:Screening for HIV 1 & 2 antibodies, and P24 antigen is NONREACTIVE. No confirmatory testing is required. Blood Venous blood specimen / Unknown Venipuncture / Unknown 09/30/2024 2:51 PM EDT 09/30/2024 3:04 PM EDT Zack Teran MD LAB BLOOD ORDERABLES Final Re sult [facility] [address] [place] [address] * Hepatitis C Antibody - ED (09/30/2024 2:50 PM EDT) Pathologist [facility] [place] Hepatitis C Antibody Negative Negative 09/30/2024 3:44 PM EDT [facility] Blood Venous blood specimen / Unknown Venipuncture / Unknown 09/30/2024 2:50 PM EDT 09/30/2024 3:04 PM EDT Zack Teran MD LAB BLOOD ORDERABLES Final Re sult [facility] [address] [place] [address] * Hemoglobin A1c (06/27/2021 8:20 AM EST) Pathologist [facility] [place] Hemoglobin A1c 4.8 <5.7 % 06/27/2021 7:11 PM EST [facility] Blood Venous blood specimen / Unknown Venipuncture / Unknown 06/27/2021 8:20 AM EST 06/27/2021 8:30 AM EST us Ryan Javed MD LAB BLOOD ORDERABLES Final Resul t [facility] [address] [place] [address] * Cytology (12/11/2018 12:00 AM EDT) 12/11/2018 12/12/2018 5:1 3 PM EDT Narrative [facility] - 12/16/2018 6:58 AM EDT [facility] MR #: [id number] [facility] [address] [place], [place] [address] 1970 (Age: 48) FW Collect Date: 12/11/2018 00:00 Receipt Date: 12/12/2018 17:13 Page 1 DEPARTMENT OF PATHOLOGY AND LABORATORY MEDICINE CYTOPATHOLOGY REPORT Email: [email or web address] [phone] ATTENDING MD/Practitioner: Abraham Steiner MD Service: [facility] Location: [facility] Reported: 12/16/2018 06:58 Collected: 12/11/2018 00:00 INTERPRETATION A. THIN PREP (CERVICAL/VAGINAL): NEGATIVE FOR INTRAEPITHELIAL LESION OR MALIGNANCY. INFLAMMATORY CHANGE. SATISFACTORY FOR EVALUATION; ENDOCERVICAL/ TRANSFORMATION ZONE COMPONENT PRESENT. Slide examined with [employer] ThinPrep Imaging System but manually screened for [...] results is suggested (please call Microbiology at [phone] for results). CLINICAL INFORMATION: Menstrual History: Cyclic Date of Last Menstrual Period: {Not Provided} Other Clinical Conditions: If ASCUS and > 24 years of age, HPV/DNA testing requested. SPECIMEN DESCRIPTION: A: THIN PREP (CERVICAL/VAGINAL) THIN PREP PROCESS CELLULAR ENHANCEMENT ICD: F: A; RT IMAGE [id number] SNOMED CODES: A; [id number] In cases where a pathologist has signed out the report, the service has been rendered in part by a resident. The signing pathologist has performed and is responsible for the reported pathologic evaluation. us Abigail Steiner MD LAB PATHOLOGY ORDERABLES Rosie ewing Result [facility] from Last 3 Months or Most Recently Relevant to Health Maintenance Insurance [facility] MEDICAID ANTHEM Advance Directives * Full [...] Patient has decision-making capacity? Yes Care Teams Call Out Operator Relationship Specialty Start Date End Date Celsa Pereira RN [address] [place], [place] [address] [address] [place] [address] PCP - General 10/01/24
--- NOTE | 2025-03-24 10:33 | XR_ITS ---
FINAL REPORT CLINICAL HISTORY: Preoperative Hypothyroidism Hypertension Cognitive impairment Murmur, heart Obstructive sleep apnea Hypothyroid Anxiety COMPARISON: 11/21/2024 FINDINGS: PA and lateral views of the chest were obtained. The cardiac and mediastinal silhouettes are within normal limits. The lungs are clear. There is no pleural effusion or pneumothorax. No acute osseous abnormality is identified. IMPRESSION: No radiographic evidence of acute cardiac or pulmonary disease. Reviewed, Interpreted and Dictated by Louisa Hollingsworth MD Transcribed by Brenda Garcia Authenticated and [facility]
--- NOTE | 2025-03-24 10:57 | ECG_ITS ---
APPROVED REPORT Exam: Resting ECG HR:55 bpm ECG Measurements Heart Rate 55 AXES RI 173 P 44 QRSd 86 QRS 73 QT 441 T 41 QTc 429 Conclusion SINUS BRADYCARDIA LOW QRS VOLTAGE IN PRECORDIAL LEADS [QRS DEFLECTION < 1.0 mV IN CHEST LEADS] BORDERLINE ECG UNCONFIRMED REPORT Electronically signed by : Garo Best MD 03/25/2025 08:43:44
[2025-03-24 11:04] LABS: Chloride 113 mmol/L (98-107); Potassium 4.2 mmoL/L (3.5-5.1); Sodium 145 mmol/L (136-145)
[2025-03-24 11:05] LABS: Hematocrit 36.8 % (37.0-47.0); Hemoglobin 12.3 g/dL (12.2-16.2); Mean Corpuscular HGB Conc 33.4 g/dL (31.8-35.4); Mean Corpuscular Hemoglobin 31.4 pg (27.0-31.2); Mean Corpuscular Volume 93.9 fl (81-99); Platelet Count 88 K/mm3 (142-424); Red Blood Count 3.92 M/mm3 (4.20-5.40); White Blood Count 3.1 K/mm3 (4.8-10.8)
[2025-03-24 11:07] LABS: Blood Urea Nitrogen 9 mg/dl (7-17); Creatinine Clearance Estimated 42 mL/min (50-200); Creatinine,Serum 1.10 mg/dl (0.52-1.04); Estimated Glomerular Filt Rate 52 ml/min (>60); GFR (African American) 63 ML/MIN (>60)
[2025-03-24 11:08] LABS: Anion Gap 13.2 mEq/L (5-15); Calcium 9.2 mg/dl (8.4-10.2); Carbon Dioxide 23 mmol/L (22.0-30.0); Glucose 84 mg/dl (74-100)
[2025-03-24 11:53] LABS: RBC Morphology Normal; Total Cells Counted 100
== END 2025-03-24 23:59 | disposition home or self-care (01) ==
LOC: PREOP 10:24
PROVIDERS: PCP Nurse Practitioner Family; Visit Provider Otolaryngology
DX: Z01.810 Encounter for preprocedural cardiovascular examination (principal); Z01.811 Encounter for preprocedural respiratory examination; Z01.812 Encounter for preprocedural laboratory examination; R00.1 Bradycardia, unspecified; R94.31 Abnormal electrocardiogram [ECG] [EKG]
CPT/HCPCS: 71046; 80048; 85007; 85014; 85018; 85048; 85049; 93005

== ENCOUNTER 2025-03-31 08:24 | Day surgery (SDC) | payer BC, OTHER, SELFPAY ==
[2025-03-24 14:03] VITALS: BMI 43.0
[2025-03-31] VITALS (9 sets, daily range): BP systolic 111–133; BP diastolic 58–78; PULSE 52–67; RESP 16–20; TEMP 36.1–37; O2SAT 91–98; BMI 43.0
[2025-03-31] MEDS: LACTATED RINGERS 1000ML 1,000 ML 25 ML IV (10:22)
--- NOTE | 2025-03-31 10:50 | P.PNANES_ITS ---
[facility] Disclaimer: The information contained in this section may have been updated after the patient was seen, as this information can be updated by other users. Medical History Ulceration, nasal, septum Sinus pressure Sinus pain Dizziness Dyspnea Nausea Headache Constipation Abnormal finding on diagnostic imaging of kidney Pyelonephritis Cirrhosis of liver Bipolar 1 disorder Hypothyroidism Hypertension Cognitive impairment Murmur, heart Obstructive sleep apnea Hypothyroid Anxiety Surgical History H/O section H/O hernia repair Hx of appendectomy Family History Mother Family history of diabetes mellitus type II Family history of myocardial infarction Social History (Updated 03/31/25 @ 10:10 by Colette Mcqueen RN) Smoking Status: Former smoker alcohol intake: never substance use type: denies use current occupational status: unemployed and disabled Travel in the last 8 weeks?: None [facility] Anesthesia Checklist Patient Identification Patient Identification: Arm Band and Verbal (Name & ) Structural Data Admitted From: Home Planned Operative Procedure/s: Septoplasty, FESS Consent for Planned Operative Procedure(s) Verified: Yes Verified Documents: Surgical Consent NPO Status Verified Time NPO: 00:00 Chart Verification Results Verified: CBC and BMP Additional verifications Anesthesia Reactions: No Airway Assessment Mallampati Score:: Class II C-Spine Mobility Assessed: Yes TMJ Mobility Assessed: Yes Dentition: Dentures-poor fitting Neurological Assessment Level of Consciousness: Awake, Alert and Appropriate Hx Seizures: No Numbness or tingling in extremities: No Anesthesia Plan Anesthesia Risk discussed: Yes Anesthesia Plan: Verified ASA Class: II Anesthesia Type: General
[2025-03-31] MEDS: CLINDAMYCIN PHOSPHATE/D5W 900 MG/50 ML PIGGYBACK 25 MG (13:30)
[2025-03-31] MEDS: OXYMETAZOLINE NASAL SPRAY 0.05% 15ML 15 ML NS (13:55)
[2025-03-31] MEDS: LIDOCAINE 1% W/EPI 1:100,000 20ML VIAL 20 ML (13:55)
[2025-03-31] MEDS: 0.9 % SODIUM CHLORIDE 1000ML 1,000 ML 25 ML IV (13:55)
--- NOTE | 2025-03-31 15:30 | P.PNANES_ITS ---
[facility] Anesthesia Record Part I Anesthesia Record I Intake, IV Amount: 800 Hydration: Adequate Estimated blood loss (mL): 10 Urine output (mL): 0 Blood Pressure: 133/78 SaO2: 93 Pulse Rate: 56 Airway Patency: Patent Respiratory Rate: 18 Temperature: 98.6 F Patient is:: Awake, Nasal O2 and Stable Stable to PACU at:: 15:35
--- NOTE | 2025-03-31 15:31 | EXP.OP.NOTE ---
Date of procedure: 03/31/25 Pre-op Diagnosis:: Chronic sinusitis, deviated septum Post-op Diagnosis:: Chronic sinusitis, deviated septum Procedure performed:: Image guided functional endoscopic sinus surgery with right total ethmoidectomy, right frontal sinusotomy, right maxillary antrostomy and removal of antral mucosa disease, left sphenoidotomy all with image guidance. Endoscopic septoplasty Surgeon:: Sam Venegas MD Anesthesia: GETA Estimated blood loss (mL): 50 Operative findings:: Deviated septum posteriorly to the left obstructing the left sphenoid recess. She had purulent material in the right frontal, right ethmoid, and right maxillary sinus with complete obstruction of the right OMC. Operative note:: The patient was brought to the operating room and after adequate general anesthesia the nose was draped in the usual sterile fashion and 1% lidocaine with epinephrine used to locally infiltrate the septum and middle meatuses bilaterally. The image guided sinus surgery system was then calibrated and used throughout the case. Attention was first drawn to the right side. Using a 02 sinus endoscope the right middle meatus was visualized and the middle turbinate medialized. Uncinectomy was then performed with a pediatric backbiter and microdebrider clearing the nasal frontal tract and infundibulum. The natural ostium to the maxillary sinus was then enlarged and cleared of obstructing mucosal disease and then purulent material from the right maxillary sinus was cultured and then suctioned and irrigated clear. Multiple irrigations were performed using normal saline. Next image guided anterior and posterior ethmoidectomy was performed using a microdebrider and working through the ethmoid bulla from anterior to posterior. Inflammatory mucus coastal disease was identified along with purulent material and disease was cleared posteriorly to the sphenoid face, superiorly to the skull base, and laterally to the medial orbital wall sparing normal mucosa at the margins of dissection. The nasofrontal tract was then identified with image guidance and cleared of obstructing mucosal disease until the nasofrontal tract was clear and the frontal sinus was well aerated. The material in the frontal sinus was purulent and this was suctioned and irrigated clear. Xerogel was placed in the right middle meatus and attention drawn to the left side. Endoscopic septoplasty was performed by la making a mucosal incision at the bony cartilaginous junction on the left side of the septum and then using a 0 degree sinus endoscope and mucosal periosteal flap was elevated off the bony spur and deviated portion of the vomer and then straight biting through cut forceps were employed to resect a cartilaginous and bony spur on the floor the nose on the left side along with the deviated portion of the vomer sparing the normal remaining bony septum. The mucosal flaps were then returned to anatomic position and attention drawn to the left sphenoid recess. Using a 0 to a sinus endoscope the sphenoid recess was explored and inflammatory mucosal disease cleared from the sphenoid ostium which was identified with image guidance. At that point the sphenoid sinus was well aerated. Gallardo splints were then placed on the septum and secured to the columella using 3-0 nylon and the procedure concluded. All counts correct and blood loss was approximately 50 mL Condition: stable Disposition: PACU Complications:: No complications
--- NOTE | 2025-04-01 12:44 | P.PNANES_ITS ---
[facility] Anesthesia Record Part II Anesthesia Record Part II Discharge Time: 16:30 Destination: Surgical Day Care (OP Surgery) PACU nurse assessment reviewed?: Yes Patient Condition:: Good Anesthesia Complications:: None Swallowing reflex intact?: Yes Airway Patency: Patent Cyanosis?: No Blood Pressure: 119/63 SaO2: 94 Respiratory Rate: 18 Pulse Rate: 65 Temperature: 98.5 F Mental Status: Alert & Oriented Pain level:: 0 Nausea and/or vomitting:: None Intake, IV Amount: 0 Hydration: Adequate
[2025-04-01 12:45] VITALS: BP 119/63; PULSE 65; RESP 18; TEMP 36.9; O2SAT 94
== END 2025-03-31 16:30 | disposition home or self-care (01) ==
PROVIDERS: PCP Nurse Practitioner Family; Visit Provider Otolaryngology
PROC: (CPT 30520; principal; 2025-03-31 10:30)
DX: J32.9 Chronic sinusitis, unspecified (principal); J34.89 Other specified disorders of nose and nasal sinuses; J34.2 Deviated nasal septum; F41.9 Anxiety disorder, unspecified; F32.9 Major depressive disorder, single episode, unspecified; K74.60 Unspecified cirrhosis of liver; I10 Essential (primary) hypertension; E03.9 Hypothyroidism, unspecified; G47.33 Obstructive sleep apnea (adult) (pediatric); Z98.890 Other specified postprocedural states; Z56.0 Unemployment, unspecified; Z88.1 Allergy status to other antibiotic agents; Z88.5 Allergy status to narcotic agent; Z79.890 Hormone replacement therapy; Z79.899 Other long term (current) drug therapy
CPT/HCPCS: 30520; 31253; 31256; 31287; 61782; 87070; 87077; 87186; 87205; J0736; J1100; J1200; J2003; J2004; J2250; J2405; J2704; J3010; J7030; J7120

== ENCOUNTER 2025-04-01 01:37 | Emergency (ER) | payer BC, OTHER, SELFPAY ==
[2025-04-01] VITALS (11 sets, daily range): BP systolic 93–138; BP diastolic 60–78; PULSE 53–78; RESP 18; TEMP 36.4–36.7; O2SAT 94–98; BMI 42.1
--- NOTE | 2025-04-01 01:51 | HMH.EDGENADL ---
Discharge Plan Disposition Patient Disposition: Home, Self-Care Prescriptions Prescriptions: No Action thiamine HCl (vitamin B1) 100 mg tablet 100 mg PO DAILY amitriptyline 50 mg tablet 50 mg PO DAILY mupirocin [Centany] 2 % ointment 1 applic topical TID Qty: 22 0RF Rx Instructions: Apply a small amount on the left septal wall lidocaine 5 % Adhesive Patch,Medicated 1 patch TOPICAL DAILYP PRN (Reason: Pain) Rx Instructions: leave on most painful area for up to 12 hrs oxcarbazepine 150 mg Tablet 150 mg PO BID donepezil 5 mg Tablet 5 mg PO HS cholecalciferol (vitamin D3) 1,250 mcg (50,000 unit) Capsule 1,250 mcg PO WEEKLY Rx Instructions: weekly on SUNDAY promethazine 25 mg suppository 25 mg OR Q6HP PRN (Reason: Nausea And Vomiting) carvedilol 3.125 mg Tablet 3.125 mg PO BID 30 Days Qty: 60 0RF benzonatate 100 mg capsule 100 mg PO TID PRN (Reason: cough) Qty: 30 0RF benzonatate 100 mg capsule 100 mg PO BID PRN (Reason: cough) 5 Days Qty: 10 0RF pantoprazole 40 mg Tablet,Delayed Release (Dr/Ec) 40 mg PO HS duloxetine 30 mg Capsule,Delayed Release(Dr/Ec) 30 mg PO DAILY melatonin 5 mg tablet 10 mg PO HS pyridoxine (vitamin B6) 50 mg tablet 50 mg PO DAILY acetaminophen 325 mg Tablet 325 mg PO Q6HP PRN (Reason: Mild Pain (Scale Score 1-4)) cyclobenzaprine 5 mg Tablet 5 mg PO TIDP PRN (Reason: Muscle Spasm) ferrous sulfate 324 mg (65 mg iron) tablet,delayed release (DR/EC) 324 mg PO Q2D Rx Instructions: take 1 tab every other day albuterol sulfate 90 mcg/actuation HFA aerosol inhaler 1 puff inhalation Q6HP PRN (Reason: Shortness Of Breath) Patient Comments: INHALE 1 PUFF BY MOUTH EVERY 6 HOURS NEEDED may keep AT bedside (shortness of breath) amlodipine 5 mg tablet 5 mg PO HS levothyroxine 88 mcg tablet 88 mcg PO DAILY polyethylene glycol 3350 17 gram/dose powder 17 g PO DAILY alum-mag hydroxide-simeth [Almacone-2] 400-400-40 mg/5 mL suspension 30 ml PO DAILYP PRN (Reason: gerd) lactulose 10 gram/15 mL solution 30 ml PO TID cetirizine 10 mg tablet 10 mg PO DAILY fluticasone prp-sod.chl,bicarb 50 mcg- 0.9 % Kit,[place] Suspension And [place] 1 ea INTRANASAL DAILY Nasal Moisturizing 0.65 % aerosol,spray 1 spray intranasal BID PRN (Reason: dry nasal passages) Qty: 50 0RF ondansetron 4 mg tablet,disintegrating 4 mg PO Q6H PRN (Reason: nausea and vomiting) Qty: 14 0RF hydrocodone-acetaminophen 5-325 mg tablet 1 tab PO Q6H PRN (Reason: pain) Qty: 10 0RF clindamycin HCl [Cleocin HCl] 150 mg capsule 150 mg PO TID Qty: 30 0RF Referrals Follow up/Referrals: Celsa Pereira APRN [Primary Care Provider, Medical] - See instructions Activity Restrictions/Add. Instructions Additional Instructions/Restrictions: Recommend calling to follow-up with your ENT in the morning. Please follow-up with your primary care provider. Please return to the emergency department if you develop any new or worsening symptoms or become concerned for your health. Clinical Impressions Clinical Impression: Epistaxis, Post-op bleeding Instructions Patient Instructions: DI for Nosebleed Print Language Print Language: Vietnamese Discharge ED Provider: Federico Benjamin General Adult HPI General Chief complaint: Epistaxis Stated complaint: Nose Bleed Time Seen by Provider: 04/01/25 01:40 Mode of Arrival: EMS Source of Information: Patient and EMS Description of Symptoms (Recalled from ER Triage Doc. by RN): Pt presents to ER from [facility] via EMS with a nose bleed that will not stop. Pt recently had a rhinoplasty to fix a deviated septum and states that is has been bleeding ever since. Upon arrival, bleeding not present. Pt also endorses n/v and frontal lobe pain in addition to surgical pain. 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 She had a septoplasty done this morning. It has been bleeding on and off all day. She reports some pain as well. Related Data Home Medications ?Medication ?Instructions ?Recorded ?Confirmed duloxetine 30 mg capsule,delayed 30 mg PO DAILY 05/02/22 03/31/25 release pantoprazole 40 mg tablet,delayed 40 mg PO HS 05/02/22 03/31/25 release melatonin 5 mg tablet 10 mg PO HS 05/03/22 03/31/25 pyridoxine (vitamin B6) 50 mg 50 mg PO DAILY 02/21/23 03/31/25 tablet acetaminophen 325 mg tablet 325 mg PO Q6HP PRN Mild Pain 05/14/23 03/31/25 (Scale Score 1-4) cyclobenzaprine 5 mg tablet 5 mg PO TIDP PRN Muscle Spasm 05/14/23 03/31/25 ferrous sulfate 324 mg (65 mg 324 mg PO Q2D 05/14/23 03/31/25 iron) tablet,delayed release albuterol sulfate 90 mcg/actuation 1 puff inhalation Q6HP PRN 07/18/23 03/31/25 aerosol inhaler Shortness Of Breath cholecalciferol (vitamin D3) 1,250 1,250 mcg PO WEEKLY 04/06/24 03/31/25 mcg (50,000 unit) capsule donepezil 5 mg tablet 5 mg PO HS 04/06/24 03/31/25 lidocaine 5 % topical patch 1 patch topical DAILYP PRN Pain 04/06/24 03/31/25 oxcarbazepine 150 mg tablet 150 mg PO BID 04/06/24 03/31/25 promethazine 25 mg rectal 25 mg OR Q6HP PRN Nausea And 04/06/24 03/31/25 suppository Vomiting aluminum-mag hydroxide-simethicone 30 ml PO DAILYP PRN gerd 11/19/24 03/31/25 400 mg-400 mg-40 mg/5 mL oral susp (Almacone-2) amlodipine 5 mg tablet 5 mg PO HS 11/19/24 03/31/25 cetirizine 10 mg tablet 10 mg PO DAILY 11/19/24 03/31/25 fluticasone prop.50 mcg 1 ea intranasal DAILY 11/19/24 03/31/25 spray,suspen-sod.chloride 0.9% nasal spray kit Held on 03/31/25. Instructions: Resume on 05/01/25. lactulose 10 gram/15 mL oral 30 ml PO TID 11/19/24 03/31/25 solution levothyroxine 88 mcg tablet 88 mcg PO DAILY 11/19/24 03/31/25 polyethylene glycol 3350 17 17 g PO DAILY 11/19/24 03/31/25 gram/dose oral powder amitriptyline 50 mg tablet 50 mg PO DAILY 01/27/25 03/31/25 thiamine HCl (vitamin B1) 100 mg 100 mg PO DAILY 01/27/25 03/31/25 tablet Previous Rx's ?Medication ?Instructions ?Recorded carvedilol 3.125 mg tablet 3.125 mg PO BID 30 days #60 tabs 04/07/24 benzonatate 100 mg capsule 100 mg PO TID PRN cough #30 caps 11/21/24 benzonatate 100 mg capsule 100 mg PO BID PRN cough 5 days #10 12/18/24 caps sodium chloride 0.65 % nasal spray 1 spray intranasal BID PRN dry 01/07/25 aerosol (Nasal Moisturizing) nasal passages #50 mL mupirocin 2 % topical ointment 1 applic topical TID #22 grams 01/27/25 (Centany) clindamycin HCl 150 mg capsule 150 mg PO TID #30 caps 03/31/25 (Cleocin HCl) hydrocodone 5 mg-acetaminophen 325 1 tab PO Q6H PRN pain #10 tabs 03/31/25 mg tablet ondansetron 4 mg disintegrating 4 mg PO Q6H PRN nausea and 03/31/25 tablet vomiting #14 tabs Allergies Allergy/AdvReac Type Severity Reaction Status Date / Time amoxicillin (From Augmentin) Allergy Unknown Verified 03/31/25 09:52 allergy reaction clavulanic acid (From Allergy Unknown Verified 03/31/25 09:52 Augmentin) allergy reaction oxycodone Allergy Swelling Verified 03/31/25 16:29 of [facility]/Tongue/[facility]roat [facility] Disclaimer: The information contained in this section may have been updated after the patient was seen, as this information can be updated by other users. Medical History Ulceration, nasal, septum Sinus pressure Sinus pain Dizziness Dyspnea Nausea Headache Constipation Abnormal finding on diagnostic imaging of kidney Pyelonephritis Cirrhosis of liver Bipolar 1 disorder Hypothyroidism Hypertension Cognitive impairment Murmur, heart Obstructive sleep apnea Hypothyroid Anxiety Surgical History H/O section H/O hernia repair Hx of appendectomy Family History Mother Family history of diabetes mellitus type II Family history of myocardial infarction Social History (Updated 03/31/25 @ 10:53 by Luis F Franco CRNA) Smoking Status: Never smoker alcohol intake: never substance use type: denies use current occupational status: unemployed and disabled Travel in the last 8 weeks?: None Other Medical History Have you received the Flu Vaccine for this season: No Have you received the Pneumonia Vaccine: No ROS Obtained: Yes All systems reviewed & no additional complaints except as documented Physical Exam General General appearance: alert and in no apparent distress Head Head exam: atraumatic and normocephalic Eye Eye exam: Present normal appearance, PERRL and EOMI ENT ENT exam: Present normal oropharynx, normal external ear exam and other (Mixed clots and dried blood at the nares. Plastic splints in place bilaterally) Neck Neck exam: Present normal inspection and full ROM Chest Chest inspection: Present normal inspection and symmetric chest wall rise; Absent tenderness Respiratory Respiratory exam: Present normal lung sounds bilaterally; Absent respiratory distress Cardiovascular Cardiovascular exam: Present regular rate and normal rhythm Abdominal Exam Abdominal exam: Present soft; Absent distention, tenderness or guarding Extremities Exam Extremities exam: Present normal inspection; Absent edema or joint swelling Back Exam Back exam: Present normal inspection; Absent tenderness Neurological Exam Neurological exam: Present alert and oriented X3; Absent motor sensory deficit Psychiatric Psychiatric exam: Present normal affect and normal mood Skin Skin exam: Present warm, dry and normal color Lymphatic Lymphatic Findings: no adenopathy Medical Decision Making Medical Records Medical records reviewed: Yes I reviewed the patient's medical records. Screening: Per USPSTF and CDC recommendations, given the prevalence of disease in our region, it is our hospital?s policy to screen for HIV and viral Hepatitis for all patients aged 18 and over and those with ongoing risk factors. Darrian Inquiry Pt receiving controlled substance: No Darrian was queried for this patient: No Vital Signs: 04/01/25 01:43 04/01/25 01:47 04/01/25 02:00 Temperature 97.5 F L Temperature Source Oral Pulse Rate 61 56 L Pulse Rate [Left Radial] 69 Respiratory Rate 18 Blood Pressure Blood Pressure [Right Arm] 132/70 Blood Pressure Mean Blood Pressure Mean [Right Arm] 90 Blood Pressure Source [Right Arm] Automatic Cuff Blood Pressure Position [Right Arm] Supine 02 Sat by Pulse Oximetry 95 96 97 Oxygen Delivery Method Room Air Room Air Room Air 04/01/25 02:00 04/01/25 02:15 04/01/25 02:30 Temperature Temperature Source Pulse Rate 62 53 L Pulse Rate [Left Radial] Respiratory Rate Blood Pressure 138/69 Blood Pressure [Right Arm] Blood Pressure Mean 92 Blood Pressure Mean [Right Arm] Blood Pressure Source [Right Arm] Blood Pressure Position [Right Arm] 02 Sat by Pulse Oximetry 96 97 Oxygen Delivery Method Room Air Room Air 04/01/25 02:30 04/01/25 02:45 04/01/25 03:00 Temperature Temperature Source Pulse Rate 62 72 Pulse Rate [Left Radial] Respiratory Rate Blood Pressure 124/64 Blood Pressure [Right Arm] Blood Pressure Mean 86 Blood Pressure Mean [Right Arm] Blood Pressure Source [Right Arm] Blood Pressure Position [Right Arm] 02 Sat by Pulse Oximetry 96 96 Oxygen Delivery Method Room Air Room Air 04/01/25 03:01 04/01/25 03:01 04/01/25 03:15 Temperature Temperature Source Pulse Rate 63 Pulse Rate [Left Radial] Respiratory Rate Blood Pressure 93/60 L Blood Pressure [Right Arm] Blood Pressure Mean 71 Blood Pressure Mean [Right Arm] Blood Pressure Source [Right Arm] Blood Pressure Position [Right Arm] 02 Sat by Pulse Oximetry 94 L 96 Oxygen Delivery Method Room Air Room Air 04/01/25 03:30 Temperature Temperature Source Pulse Rate 53 L Pulse Rate [Left Radial] Respiratory Rate Blood Pressure Blood Pressure [Right Arm] Blood Pressure Mean Blood Pressure Mean [Right Arm] Blood Pressure Source [Right Arm] Blood Pressure Position [Right Arm] 02 Sat by Pulse Oximetry 94 L Oxygen Delivery Method Room Air Lab Data Lab results reviewed: Yes I reviewed the patient's lab results. Orders (Tests/Meds): ED MEDICATIONS Discontinued Medications Generic Name Dose Route Start Last Admin Trade Name Freq PRN Reason Stop Dose Admin Acetaminophen 1,000 mg 04/01/25 02:43 04/01/25 02:49 Acetaminophen 500mg Tab PO 04/01/25 02:44 1,000 mg ONCE ONE Administration Ketorolac Tromethamine 30 mg 04/01/25 02:43 04/01/25 02:49 Ketorolac 30mg/Ml Vial IM 04/01/25 02:44 30 mg ONCE ONE Administration Lidocaine 1 each 04/01/25 03:07 04/01/25 03:21 Lidocaine 5% Transdermal Patch TD 04/01/25 03:08 1 each ONCE ONE Administration Tranexamic Acid 0 mg 04/01/25 03:47 04/01/25 03:49 Tranexamic Acid 1,000 Mg/10 Ml Vial TP 04/01/25 03:48 200 mg ONCE ONE Administration Medical Decision Narrative: 55-year-old female with history of cognitive impairment presents with epistaxis after having a septoplasty performed earlier today.. History was obtained via interactive discussion with patient, EMS, chart review. On arrival, patient is [afebrile, hemodynamically stable, satting appropriately, alert, oriented x4, GCS 15], moving all extremities spontaneously. Full physical exam performed and significant for minimal clots and blood noted at the naris bilaterally. The nares were irrigated with saline and then TXA was atomized bilaterally x 2. Patient was given intranasal lidocaine with epi for pain control. Patient was placed in ED observation status for continued monitoring to assess the efficacy of our interventions. After 2 hours of observation, patient has not had any significant bleeding. Given this, she is deemed appropriate for discharge with outpatient management. These findings were communicated patient she was discharged in stable condition Procedures Risk/Benefits of Procedure(s) Were Explained: Yes Critical Care Critical Care Time Critical Care Time: No
--- OUTSIDE RECORDS SUMMARY | 2025-04-01 02:23 | XMS_ITS | Clinical Summary ---
Author Organization Healthcare Address [address] [id number] Care Team Providers Care Ebd Teacher Name Role Phone Celsa Pereira RN Primary Care Provider [phone] Allergies Active Allergy Reactions Criticality Noted Date [...] cholecalcifero l (True Vitamin D3) 1.25 MG (17932 UT) capsule Take 1 capsule by mouth [...] mouth every 6 hours as needed. Under [place] law, monthly prescriptions (30 days) can be [...] Renetta COVID-19 Vaccine (Blue Cap) 18+ 03/08/20 Conexus-IT-BioNTBiorasis COVID-19 Vac cine (Youssef Cap) 12+ years [...] time in the past 12 m [facility], were you homeless or living in a long-term (including now)? No 10/01/2024 Utilities Answer Date [...] 2021 UKY-Zoster Vaccines (1 of 2) 2021 ETY-LFZHT-12 Vaccine (4 - season) 2024 08/18/2021, 03/08/2021, [...] 1/2 Differentiation (09/30/2024 2:51 PM EDT) Pathologist [facility] HIV 1 & 2 Antibody/Antigen Screen Non Reactive Non Reactive 09/30/2024 3:46 PM EDT [facility] Comment:Screening for HIV 1 & 2 antibodies, and P24 antigen is NONREACTIVE. No confirmatory testing is required. Blood Venous blood specimen / Unknown Venipuncture / Unknown 09/30/2024 2:51 PM EDT 09/30/2024 3:04 PM EDT Zack Teran MD LAB BLOOD ORDERABLES Final Re sult [facility] [address] [place] [address] * Hepatitis C Antibody - ED (09/30/2024 2:50 PM EDT) Pathologist [facility] Hepatitis C Antibody Negative Negative 09/30/2024 3:44 PM EDT [facility] Blood Venous blood specimen / Unknown Venipuncture / Unknown 09/30/2024 2:50 PM EDT 09/30/2024 3:04 PM EDT Zack Teran MD LAB BLOOD ORDERABLES Final Re sult [facility] [address] [place] [address] * Hemoglobin A1c (06/27/2021 8:20 AM EST) Pathologist [facility] Hemoglobin A1c 4.8 <5.7 % 06/27/2021 7:11 PM EST [facility] Blood Venous blood specimen / Unknown Venipuncture / Unknown 06/27/2021 8:20 AM EST 06/27/2021 8:30 AM EST us Ryan Javed MD LAB BLOOD ORDERABLES Final Resul t [facility] [address] [place] [address] * Cytology (12/11/2018 12:00 AM EDT) 12/11/2018 12/12/2018 5:1 3 PM EDT Narrative SUNQUEST - 12/16/2018 6:58 AM EDT [facility] MR #: [id number] [facility] [place], [place] [address] 1970 (Age: 48) FW Collect Date: 12/11/2018 00:00 Receipt Date: 12/12/2018 17:13 Page 1 DEPARTMENT OF PATHOLOGY AND LABORATORY MEDICINE CYTOPATHOLOGY REPORT Email: [email or web address] ATTENDING MD/Practitioner: Abraham Steiner MD Service: [facility] Location: [facility] Reported: 12/16/2018 06:58 Collected: 12/11/2018 00:00 INTERPRETATION A. THIN PREP (CERVICAL/VAGINAL): NEGATIVE FOR INTRAEPITHELIAL LESION OR MALIGNANCY. INFLAMMATORY CHANGE. SATISFACTORY FOR EVALUATION; ENDOCERVICAL/ TRANSFORMATION ZONE COMPONENT PRESENT. Slide examined with [employer] ThinPrep Imaging System but manually screened for [...] results is suggested (please call Microbiology at [phone] for results). CLINICAL INFORMATION: Menstrual History: Cyclic Date of Last Menstrual Period: {Not Provided} Other Clinical Conditions: If ASCUS and > 24 years of age, HPV/DNA testing requested. SPECIMEN DESCRIPTION: A: THIN PREP (CERVICAL/VAGINAL) THIN PREP PROCESS CELLULAR ENHANCEMENT ICD: F: A; RT IMAGE [id number] SNOMED CODES: A; [id number] In cases where a pathologist has signed out the report, the service has been rendered in part by a resident. The signing pathologist has performed and is responsible for the reported pathologic evaluation. us Abigail Steiner MD LAB PATHOLOGY ORDERABLES Rosie ewing Result SUNQUEST from Last 3 Months or Most Recently Relevant to Health Maintenance Insurance [facility] MEDICAID [place] Advance Directives * Full [...] Patient has decision-making capacity? Yes Care Teams Ebd Teacher Relationship Specialty Start Date End Date Celsa Pereira RN [address] [place], [place] [id number] [address] [place] [address] PCP - General 10/01/24
--- OUTSIDE RECORDS SUMMARY | 2025-04-01 02:24 | XMS_ITS | Clinical Summary ---
Author Organization [facility] Address [address] [place] [address] Phone Care Team Providers Care Php Magento Developer Name Role Phone Unavailable Primary Care [...] to complete this topic Insurance ANTH PPO [facility] [place] MEDICAID CARVE OUT [facility] COMMUNITY PLAN [place] MDR
[2025-04-01] MEDS: ACETAMINOPHEN 500MG TAB 1000 MG PO (02:49)
[2025-04-01] MEDS: KETOROLAC 30MG/ML VIAL 30 MG IM (02:49)
[2025-04-01] MEDS: LIDOCAINE 5% TRANSDERMAL PATCH 1 EACH TD (03:21)
[2025-04-01] MEDS: TRANEXAMIC ACID 1,000 MG/10 ML VIAL TP (03:49)
--- NOTE | 2025-04-01 07:13 | PC.NURSE ---
0700 care handoff report received from Jamaal ERVIN. PT waiting for care van transport services to open for ride back to [facility]
== END 2025-04-01 08:49 | disposition home or self-care (01) ==
PROVIDERS: Emergency Provider Emergency Medicine; PCP Nurse Practitioner Family
DX: R04.0 Epistaxis (principal); Z98.890 Other specified postprocedural states; I10 Essential (primary) hypertension; E03.9 Hypothyroidism, unspecified; F41.9 Anxiety disorder, unspecified; Z88.1 Allergy status to other antibiotic agents; Z88.8 Allergy status to other drugs, medicaments and biological substances; Z79.890 Hormone replacement therapy; Z79.899 Other long term (current) drug therapy
CPT/HCPCS: 96372; 99284; J1885